=== PATIENT | male | born 1940 | race Caucasian/White ===

== ENCOUNTER 2017-12-02 09:17 | Outpatient (RCR) | payer SELFPAY | END 2017-12-14 13:03 | disposition other institution (70) | LOC: CR 09:17 | PROVIDERS: PCP Family Medicine; Visit Provider Family Medicine | DX: Z51.89 Encounter for other specified aftercare (principal) ==

== ENCOUNTER 2018-01-01 11:28 | Outpatient (RCR) | payer SELFPAY | END 2018-01-01 23:59 | disposition home or self-care (01) | LOC: CR 11:28 | PROVIDERS: PCP Family Medicine; Visit Provider Family Medicine | DX: Z51.89 Encounter for other specified aftercare (principal) | CPT/HCPCS: S9472 ==

== ENCOUNTER 2018-01-29 13:16 | Outpatient (RCR) | payer SELFPAY | END 2018-01-31 23:59 | disposition home or self-care (01) | LOC: CR 13:16 | PROVIDERS: PCP Family Medicine; Visit Provider Family Medicine | DX: Z51.89 Encounter for other specified aftercare (principal) | CPT/HCPCS: S9472 ==

== ENCOUNTER 2018-03-03 07:00 | Outpatient (RCR) | payer SELFPAY | END 2018-03-03 23:59 | disposition home or self-care (01) | LOC: CR 07:00 | PROVIDERS: PCP Family Medicine; Visit Provider Family Medicine | DX: Z51.89 Encounter for other specified aftercare (principal) | CPT/HCPCS: S9472 ==

== ENCOUNTER 2018-04-02 13:23 | Outpatient (RCR) | payer SELFPAY | END 2018-04-02 23:59 | disposition home or self-care (01) | LOC: CR 13:23 | PROVIDERS: PCP Family Medicine; Visit Provider Family Medicine | DX: Z51.89 Encounter for other specified aftercare (principal) | CPT/HCPCS: S9472 ==

== ENCOUNTER 2018-04-16 07:00 | Outpatient (RCR) | payer SELFPAY | END 2018-05-03 23:59 | LOC: CR 07:00 | PROVIDERS: PCP Family Medicine; Visit Provider Family Medicine | DX: Z51.89 Encounter for other specified aftercare (principal) | CPT/HCPCS: S9472 ==

== ENCOUNTER → 2018-09-07 10:55 | Outpatient (BNVA) | payer MEDICARE, SELFPAY | PROVIDERS: PCP Family Medicine; Visit Provider Nurse Practitioner Family | DX: R69 Illness, unspecified (principal) ==

== ENCOUNTER 2018-09-07 11:58 | Outpatient (CLI) | payer MEDICARE, SELFPAY ==
[2018-09-07 12:16] LABS: HCT 42.2 % (40.0-50.0); HGB 14.4 g/dL (13.5-17.5); Mean Corp. HGB Concentration 34.1 g/dL (32.0-36.0); Mean Corpuscular Hemoglobin 32.7 pg (27.0-33.0); Mean Corpuscular Volume 95.7 fL (80-95); Mean Platelet Volume 10.3 fL (8.0-11.0); Platelet Count 159 x1000/uL (130-400); RBC 4.41 m/cumm (4.50-6.00); RBC Distribution Width 13.4 % (11.8-14.1)
[2018-09-07 13:06] LABS: Anion Gap 7.1 mmol/L (3-11); BUN 17 mg/dL (7-18); CO2 28.9 mmol/L (21.0-32.0); CREATININE 0.86 mg/dL (0.70-1.30); Calcium 8.5 mg/dL (8.5-10.1); Chloride 102 mmol/L (98-107); Glucose 100 mg/dL (70-100); Magnesium 2.2 mg/dL (1.8-2.4); NT-proBNP 499 pg/mL; Potassium 4.5 mmol/L (3.5-5.1); Sodium 138 mmol/L (136-145); TSH 0.98 uIU/mL (0.358-3.74)
== END 2018-09-07 12:18 ==
PROVIDERS: PCP Family Medicine; Visit Provider Nurse Practitioner Family
DX: I25.5 Ischemic cardiomyopathy (principal); R06.02 Shortness of breath; I48.91 Unspecified atrial fibrillation; I10 Essential (primary) hypertension; I25.10 Atherosclerotic heart disease of native coronary artery without angina pectoris; Z45.02 Encounter for adjustment and management of automatic implantable cardiac defibrillator; I47.2 Ventricular tachycardia; Z79.01 Long term (current) use of anticoagulants; I48.0 Paroxysmal atrial fibrillation
CPT/HCPCS: 36415; 80048; 85027; 93289; 99215; 83735; 83880; 84443

== ENCOUNTER 2018-09-23 00:37 | Outpatient (CLI) | payer MEDICARE, SELFPAY ==
--- NOTE | 2018-09-23 07:31 | MERGE_ITS ---
*[facility]* *[facility]* [address] [place] [address] Date of study: 09/23/2018 Transthoracic Echocardiography M-mode, complete 2D, complete spectral Doppler, and color Doppler *STUDY CONCLUSIONS* Summary: 1. Left ventricle: The cavity size was dilated. Wall thickness was increased in a pattern of mild LVH. Systolic function was moderately reduced. The estimated ejection fraction was 35-40%. Diffuse hypokinesis. Severe hypokinesis of the inferolateral and inferior myocardium. 2. Right ventricle: The cavity size was normal. Device wire noted in right ventricle. Systolic function was normal. 3. Left atrium: The atrium was mildly to moderately dilated. 4. Mitral valve: Mildly calcified annulus. Mildly thickened leaflets. There was mild to moderate regurgitation. 5. Inferior vena cava: The vessel was patent and normal in size. The respirophasic diameter changes were in the normal range (greater than or equal to 50%), consistent with normal central venous pressure. *PATIENT PRESENTATION* Height: 170.2cm ((67in) ) S/D Pressure: 117 / 66 Weight: 104.3kg ((229.5lb) ) BSA: 2.26m^2 Test start time: 07:40 AM. Test stop time: 08:45 AM. ORDERING Giselle Hill REFERRING Giselle Hill PERFORMING Unknown CONSULTING Donny Cooper PERFORMING [facility] DIRECTOR OF RESPIRATORY THERAPY RT Phan (R)(SHAYNE)PAULINE *PROCEDURE DATA* Procedure information: The patient was identified by two identifiers. This study was interpreted by [facility]. Pertinent images and digital data are archived for permanent storage and are available for subsequent review. Comparison was made to the study of 12/17/2015. Study status: Routine. Transthoracic echocardiography. M-mode, complete 2D, complete spectral Doppler, and color Doppler. A Transthoracic Echocardiogram was performed. Scanning was performed from the parasternal, apical, subcostal, and suprasternal notch acoustic windows. Images were obtained using an [id number] cardiac ultrasound machine. Image quality was adequate. Study completion: The patient tolerated the procedure well. There were no complications. History: PMH: CM HTN afib. i25, i10, i48.91. *CARDIAC ANATOMY* Left ventricle: The cavity size was dilated. Wall thickness was increased in a pattern of mild LVH. Systolic function was moderately reduced. The estimated ejection fraction was 35-40%. Diffuse hypokinesis. Regional wall motion abnormalities: Severe hypokinesis of the inferolateral and inferior myocardium. Aortic valve: Trileaflet; mildly thickened, mildly calcified leaflets. Mobility was not restricted. Doppler: Transvalvular velocity was within the normal range. There was no stenosis. There was no significant regurgitation. VTI ratio of LVOT to aortic valve: 0.7. Valve area (VTI): 2.3cm^2. Indexed valve area (VTI): 1cm^2/m^2. Peak velocity ratio of LVOT to aortic valve: 0.66. Valve area (Vmax): 2.2cm^2. Indexed valve area (Vmax): 1cm^2/m^2. Mean velocity ratio of LVOT to aortic valve: 0.56. Valve area (Vmean): 1.8cm^2. Indexed valve area (Vmean): 0.8cm^2/m^2. Mean gradient (S): 4.3mm Hg. Peak gradient (S): 7.4mm Hg. Aorta: Aortic root: The aortic root was normal in size. Ascending aorta: The ascending aorta was normal in size. Mitral valve: Mildly calcified annulus. Mildly thickened leaflets. Mobility was not restricted. Doppler: Transvalvular velocity was within the normal range. There was no evidence for stenosis. There was mild to moderate regurgitation. Valve area by pressure half-time: 3.1cm^2. Indexed valve area by pressure half-time: 1.4cm^2/m^2. Left atrium: The atrium was mildly to moderately dilated. Right ventricle: The cavity size was normal. Device wire noted in right ventricle. Systolic function was normal. Pulmonic valve: The pulmonary valve appears to be grossly normal. Doppler: Transvalvular velocity was within the normal range. There was no evidence for stenosis. There was trivial regurgitation. Tricuspid valve: Structurally normal valve. Doppler: Transvalvular velocity was within the normal range. There was no evidence for stenosis. There was mild regurgitation. Pulmonary artery: Poorly visualized. Pulmonary systolic pressure was in the range of 35mm Hg to 40mm Hg. Right atrium: The atrium was dilated. Pericardium: There was no significant pericardial effusion. Systemic veins: Inferior vena cava: Well visualized. The vessel was patent and normal in size. The respirophasic diameter changes were in the normal range (greater than or equal to 50%), consistent with normal central venous pressure. Baseline ECG: Paced rhythm. Measurements Left ventricle Value Reference LV ID, ED, PLAX (H) 7.2 cm 3.5 - 6.0 LV ID, ES, PLAX (H) 5.6 cm 2.1 - 4.0 LV PW thickness, ED, PLAX 0.9 cm LV end-diastolic volume, 1-p A2C 180 ml LV ejection fraction, 1-p A2C 37 % LV end-diastolic volume, 1-p A4C 158 ml LV ejection fraction, 1-p A4C 34 % LV e', lateral 0.049 m/sec LV E/e', lateral 13 LV e', medial 0.048 m/sec LV E/e', medial 13 LV e', average 0.048 m/sec LV E/e', average 13 Ventricular septum Value Reference IVS thickness, ED, PLAX 1.1 cm LVOT Value Reference LVOT ID, A-P 2.0 cm LVOT area 3.3 cm^2 LVOT peak velocity, S 0.9 m/sec LVOT mean velocity, S 0.56 m/sec LVOT VTI, S 18.8 cm LVOT peak gradient, S 3.2 mm Hg LVOT mean gradient, S 1.5 mm Hg Stroke volume (SV), LVOT DP 62 ml Stroke index (SV/bsa), LVOT DP 27 ml/m^2 Aortic valve Value Reference Aortic valve peak velocity, S 1.4 m/sec Aortic valve mean velocity, S 1 m/sec Aortic valve VTI, S 27.0 cm Aortic mean gradient, S 4.3 mm Hg Aortic peak gradient, S 7.4 mm Hg VTI ratio, LVOT/AV 0.7 Aortic valve area, VTI 2.3 cm^2 Velocity ratio, peak, LVOT/AV 0.66 Aortic valve area, peak velocity 2.2 cm^2 Velocity ratio, mean, LVOT/AV 0.56 Aortic valve area, mean velocity 1.8 cm^2 Aortic valve area/bsa, mean velocity 0.8 cm^2/m^2 Aorta Value Reference Aortic root ID, ED 3.2 cm Ascending aorta ID, A-P, S 3.4 cm Left atrium Value Reference LA ID, A-P, ES 4.5 cm LA ID/bsa, A-P 2.0 cm/m^2 <=2.2 LA area, ES, A4C (H) 27.1 cm^2 8.8 - 23.4 LA area, ES, A2C 21 cm^2 LA volume/bsa, ES, 1-p A4C 49 ml/m^2 LA volume, ES, 2-p 78 ml LA volume/bsa, ES, 2-p 35 ml/m^2 LA/aortic root ratio 1.42 Mitral valve Value Reference Mitral E-wave peak velocity 0.62 m/sec Mitral A-wave peak velocity 0.97 m/sec Mitral deceleration time (H) 243 ms 150 - 230 Mitral pressure half-time 70 ms Mitral E/A ratio, peak 0.64 Mitral valve area, PHT, DP 3.1 cm^2 Tricuspid valve Value Reference Tricuspid regurg peak velocity 2.8 m/sec Tricuspid peak RV-RA gradient 32.2 mm Hg Right atrium Value Reference RA area, ES, A4C (H) 21.7 cm^2 8.3 - 19.5 Pulmonic valve Value Reference Pulmonic regurg velocity, ED 1.43 m/sec Pulmonic regurg gradient, ED 8 mm Hg Legend: (L) and (H) skip values outside specified reference range. I have personally reviewed the images and have reviewed and edited the reported findings. Electronically signed by Violet Walls 09/23/2018 10:49
== END 2018-09-23 00:57 ==
PROVIDERS: PCP Family Medicine; Visit Provider Nurse Practitioner Family
DX: I10 Essential (primary) hypertension (principal); I25.5 Ischemic cardiomyopathy; I48.91 Unspecified atrial fibrillation; I25.10 Atherosclerotic heart disease of native coronary artery without angina pectoris; I34.0 Nonrheumatic mitral (valve) insufficiency; Z95.810 Presence of automatic (implantable) cardiac defibrillator
CPT/HCPCS: 93306

== ENCOUNTER 2018-10-01 11:56 | Outpatient (RCR) | payer SELFPAY | END 2018-10-01 23:59 | disposition home or self-care (01) | LOC: CR 11:56 | PROVIDERS: PCP Family Medicine; Visit Provider Family Medicine | DX: Z51.89 Encounter for other specified aftercare (principal) | CPT/HCPCS: S9472 ==

== ENCOUNTER → 2018-10-05 08:56 | Outpatient (BNVA) | payer MEDICARE, SELFPAY | PROVIDERS: PCP Family Medicine; Visit Provider Nurse Practitioner Family | DX: I25.5 Ischemic cardiomyopathy (principal); I25.10 Atherosclerotic heart disease of native coronary artery without angina pectoris; Z95.810 Presence of automatic (implantable) cardiac defibrillator; I47.2 Ventricular tachycardia; I10 Essential (primary) hypertension; I48.0 Paroxysmal atrial fibrillation; Z79.01 Long term (current) use of anticoagulants | CPT/HCPCS: 93289; 99214 ==

== ENCOUNTER 2018-10-29 11:28 | Outpatient (RCR) | payer SELFPAY | END 2018-10-31 23:59 | disposition home or self-care (01) | LOC: CR 11:28 | PROVIDERS: PCP Family Medicine; Visit Provider Family Medicine | DX: Z51.89 Encounter for other specified aftercare (principal) | CPT/HCPCS: S9472 ==

== ENCOUNTER 2018-12-01 13:37 | Outpatient (RCR) | payer SELFPAY | END 2018-12-01 23:59 | disposition home or self-care (01) | LOC: CR 13:37 | PROVIDERS: PCP Family Medicine; Visit Provider Family Medicine | DX: Z51.89 Encounter for other specified aftercare (principal) | CPT/HCPCS: S9472 ==

== ENCOUNTER 2018-12-02 12:36 | Outpatient (RCR) | payer SELFPAY | END 2019-01-01 23:59 | disposition other institution (70) | LOC: CR 12:36 | PROVIDERS: PCP Family Medicine; Visit Provider Family Medicine | DX: Z51.89 Encounter for other specified aftercare (principal) | CPT/HCPCS: S9472 ==

== ENCOUNTER → 2018-12-07 11:53 | Outpatient (BNVA) | payer MEDICARE, SELFPAY | PROVIDERS: PCP Family Medicine; Visit Provider Nurse Practitioner Family | DX: I25.5 Ischemic cardiomyopathy (principal); I25.10 Atherosclerotic heart disease of native coronary artery without angina pectoris; I47.2 Ventricular tachycardia; Z45.02 Encounter for adjustment and management of automatic implantable cardiac defibrillator; I10 Essential (primary) hypertension; I48.0 Paroxysmal atrial fibrillation; Z79.01 Long term (current) use of anticoagulants | CPT/HCPCS: 93284; 99213 ==

== ENCOUNTER 2018-12-31 07:00 | Outpatient (RCR) | payer SELFPAY | END 2019-01-01 23:59 | disposition home or self-care (01) | LOC: CR 07:00 | PROVIDERS: PCP Family Medicine; Visit Provider Family Medicine | DX: Z51.89 Encounter for other specified aftercare (principal) ==

== ENCOUNTER 2019-01-28 07:00 | Outpatient (RCR) | payer SELFPAY | END 2019-01-31 23:59 | disposition home or self-care (01) | LOC: CR 07:00 | PROVIDERS: PCP Family Medicine; Visit Provider Family Medicine | DX: Z51.89 Encounter for other specified aftercare (principal) | CPT/HCPCS: S9472 ==

== ENCOUNTER 2019-03-02 11:35 | Outpatient (RCR) | payer SELFPAY | END 2019-03-03 23:59 | disposition home or self-care (01) | LOC: CR 11:35 | PROVIDERS: PCP Family Medicine; Visit Provider Family Medicine | DX: Z51.89 Encounter for other specified aftercare (principal) | CPT/HCPCS: S9472 ==

== ENCOUNTER 2019-03-30 11:45 | Outpatient (RCR) | payer SELFPAY | END 2019-04-02 23:59 | disposition home or self-care (01) | LOC: CR 11:45 | PROVIDERS: PCP Family Medicine; Visit Provider Family Medicine | DX: Z51.89 Encounter for other specified aftercare (principal) | CPT/HCPCS: S9472 ==

== ENCOUNTER → 2019-04-20 13:21 | Outpatient (BNVA) | payer MEDICARE, SELFPAY | PROVIDERS: PCP Family Medicine; Referring Provider Family Medicine; Visit Provider Internal Medicine Cardiovascular Disease | DX: R69 Illness, unspecified (principal) ==

== ENCOUNTER 2019-04-20 14:08 | Outpatient (CLI) | payer MEDICARE, SELFPAY | END 2019-04-20 14:28 | PROVIDERS: PCP Family Medicine; Visit Provider Internal Medicine Cardiovascular Disease | DX: I49.9 Cardiac arrhythmia, unspecified (principal); I49.3 Ventricular premature depolarization; Z45.02 Encounter for adjustment and management of automatic implantable cardiac defibrillator | CPT/HCPCS: 93284; 93005; 93010; 93225; 99213 ==

== ENCOUNTER 2019-04-22 08:25 | Outpatient (CLI) | payer MEDICARE, SELFPAY ==
--- NOTE | 2019-04-22 09:41 | W.HOLTRPT ---
Date of service: 04/22/19 Time of Service: 09:41 Holter Monitor Report Holter Monitor Note: This is a 24-hour Holter monitor ordered for the indication of arrhythmia. ?Patient was in a paced rhythm for 89% of the beats. ?The patient had 0 episodes of supraventricular tachycardia and no premature atrial contractions. ?The patient had frequent (7%) single ventricular ectopic beats as well as couplets and triplets. ?There were no episodes of ventricular tachycardia. ?There were no episodes of atrial fibrillation, pauses greater than 3 seconds or high degree heart block.
== END 2019-04-22 08:45 ==
PROVIDERS: PCP Family Medicine; Visit Provider Family Medicine
DX: I49.9 Cardiac arrhythmia, unspecified (principal); I49.3 Ventricular premature depolarization; Z95.810 Presence of automatic (implantable) cardiac defibrillator
CPT/HCPCS: 93227; 93226

== ENCOUNTER → 2019-04-25 09:39 | Outpatient (BNVA) | payer MEDICARE, SELFPAY | PROVIDERS: PCP Family Medicine; Referring Provider Family Medicine; Visit Provider Internal Medicine Cardiovascular Disease | DX: I25.5 Ischemic cardiomyopathy (principal); I25.10 Atherosclerotic heart disease of native coronary artery without angina pectoris; Z95.810 Presence of automatic (implantable) cardiac defibrillator | CPT/HCPCS: 99213 ==

== ENCOUNTER 2019-05-02 14:42 | Outpatient (RCR) | payer SELFPAY | END 2019-05-03 23:59 | disposition home or self-care (01) | LOC: CR 14:42 | PROVIDERS: PCP Family Medicine; Visit Provider Family Medicine | DX: Z51.89 Encounter for other specified aftercare (principal) | CPT/HCPCS: S9472 ==

== ENCOUNTER 2019-05-27 13:37 | Outpatient (RCR) | payer SELFPAY | END 2019-06-03 23:59 | disposition home or self-care (01) | LOC: CR 13:37 | PROVIDERS: PCP Family Medicine; Visit Provider Family Medicine | DX: Z51.89 Encounter for other specified aftercare (principal) | CPT/HCPCS: S9472 ==

== ENCOUNTER 2019-07-01 13:32 | Outpatient (RCR) | payer SELFPAY | END 2019-07-02 23:59 | disposition home or self-care (01) | LOC: CR 13:32 | PROVIDERS: PCP Family Medicine; Visit Provider Family Medicine | DX: Z51.89 Encounter for other specified aftercare (principal) | CPT/HCPCS: S9472 ==

== ENCOUNTER 2019-07-11 07:00 | Outpatient (RCR) | payer SELFPAY | END 2019-08-02 23:59 | disposition home or self-care (01) | LOC: CR 07:00 | PROVIDERS: PCP Family Medicine; Visit Provider Family Medicine | DX: Z51.89 Encounter for other specified aftercare (principal) | CPT/HCPCS: S9472 ==

== ENCOUNTER → 2019-10-04 08:46 | Outpatient (BNVA) | payer MEDICARE, SELFPAY | PROVIDERS: PCP Family Medicine; Referring Provider Family Medicine; Visit Provider Internal Medicine Cardiovascular Disease | DX: I25.10 Atherosclerotic heart disease of native coronary artery without angina pectoris (principal); Z95.810 Presence of automatic (implantable) cardiac defibrillator; I25.5 Ischemic cardiomyopathy | CPT/HCPCS: 99214 ==

== ENCOUNTER 2019-10-05 02:30 | Outpatient (CLI) | payer MEDICARE, SELFPAY ==
[2019-10-05 09:39] LABS: COMMENT (LAB VIEW ONLY) 85.05 mg/dL; Microalb ug/mg Crea 10.7 ug/mg Cr
[2019-10-05 09:40] LABS: CREATININE 0.99 mg/dL (0.70-1.30); Calculated LDL 96 mg/dL (<100); Cholesterol 149 mg/dL (<200); HDL Cholesterol 37 mg/dL (40-60); Potassium 4.9 mmol/L (3.5-5.1); Triglyceride 84 mg/dL (<150)
== END 2019-10-05 02:50 ==
PROVIDERS: PCP Family Medicine; Visit Provider Family Medicine
DX: E78.5 Hyperlipidemia, unspecified (principal); I25.10 Atherosclerotic heart disease of native coronary artery without angina pectoris; E11.9 Type 2 diabetes mellitus without complications; I49.3 Ventricular premature depolarization; Z45.02 Encounter for adjustment and management of automatic implantable cardiac defibrillator
CPT/HCPCS: 36415; 80061; 93284; 99212; 82043; 82565; 82570; 84132

== ENCOUNTER 2019-10-07 01:25 | Outpatient (CLI) | payer MEDICARE, SELFPAY ==
--- NOTE | 2019-10-07 06:15 | DI.US_ITS ---
EXAM: US AAA SCREENING CLINICAL HISTORY: screening for AAA,H/O TOBACCO USE, Z87.891 TECHNIQUE: Ultrasound performed using standard protocol. COMPARISON: US Cardiac from 09/23/2018 FINDINGS: Limited ultrasound was performed to evaluate possibility of abdominal aortic aneurysm. No aneurysm i dentified involving abdominal aorta, maximal diameter is about 21 millimeters. No common iliac artery aneurysm, maximal diameter of right and left common iliac artery is about 12 a nd 11 millimeters respectively.. IMPRESSION: No abdominal aortic aneurysm. DATA REPOSITORY:
== END 2019-10-07 01:45 ==
PROVIDERS: PCP Family Medicine; Visit Provider Family Medicine
DX: Z13.6 Encounter for screening for cardiovascular disorders (principal); Z87.891 Personal history of nicotine dependence
CPT/HCPCS: 76706

== ENCOUNTER → 2020-03-07 08:20 | Outpatient (BNVA) | payer MEDICARE, SELFPAY | PROVIDERS: PCP Family Medicine; Referring Provider Family Medicine; Visit Provider Internal Medicine Cardiovascular Disease | DX: I49.3 Ventricular premature depolarization (principal); Z45.02 Encounter for adjustment and management of automatic implantable cardiac defibrillator | CPT/HCPCS: 93284; 99212 ==

== ENCOUNTER → 2020-03-12 09:43 | Outpatient (BNVA) | payer MEDICARE, SELFPAY | PROVIDERS: PCP Family Medicine; Referring Provider Family Medicine; Visit Provider Internal Medicine Cardiovascular Disease | DX: I25.10 Atherosclerotic heart disease of native coronary artery without angina pectoris (principal); I25.5 Ischemic cardiomyopathy; Z95.810 Presence of automatic (implantable) cardiac defibrillator | CPT/HCPCS: 99213 ==

== ENCOUNTER → 2020-06-20 10:26 | Outpatient (BNVA) | payer MEDICARE, SELFPAY | PROVIDERS: PCP Family Medicine; Referring Provider Family Medicine; Visit Provider Physician Assistant | DX: I25.5 Ischemic cardiomyopathy (principal); I44.2 Atrioventricular block, complete; Z45.018 Encounter for adjustment and management of other part of cardiac pacemaker ==

== ENCOUNTER 2020-06-20 11:18 | Outpatient (RCR) | payer MEDICARE, SELFPAY ==
--- NOTE | 2020-06-20 11:15 | HOLTER_ITS ---
APPROVED REPORT Exam Type: HOLTER MONITOR APPLICATION Reason for Test: ISCHEMIC CARDIOMYOPATHY Patient Location: O Conclusion This is a 48-hour monitor ordered for indication of possible pacemaker malfunction. The patient was ventricularly paced for the majority of the recording with a mean heart rate of 75 bp m and a range of 60 bpm - 111 bpm. There were no episodes of supraventricular tachycardia and rare PACs. There was one episode of nonsustained ventricular tachycardia and 2 episodes of AIVR each lasting 4 b eats. There were frequent PVCs (10%). There were no patient triggered events.
== END 2020-07-01 23:59 | disposition home or self-care (01) ==
LOC: RT 11:18
PROVIDERS: PCP Family Medicine; Visit Provider Physician Assistant
DX: I25.5 Ischemic cardiomyopathy (principal); Z45.018 Encounter for adjustment and management of other part of cardiac pacemaker; I49.1 Atrial premature depolarization; I47.2 Ventricular tachycardia; I49.3 Ventricular premature depolarization
CPT/HCPCS: 93227; 93284; 93225; 93226

== ENCOUNTER → 2020-09-04 11:17 | Outpatient (BNVA) | payer MEDICARE, SELFPAY | PROVIDERS: PCP Family Medicine; Referring Provider Family Medicine; Visit Provider Internal Medicine Cardiovascular Disease | DX: I25.5 Ischemic cardiomyopathy (principal); I25.10 Atherosclerotic heart disease of native coronary artery without angina pectoris; Z95.810 Presence of automatic (implantable) cardiac defibrillator; Z79.899 Other long term (current) drug therapy | CPT/HCPCS: 99213 ==

== ENCOUNTER → 2020-09-19 11:28 | Outpatient (BNVA) | payer MEDICARE, SELFPAY | PROVIDERS: PCP Family Medicine; Referring Provider Family Medicine; Visit Provider Physician Assistant | DX: I25.5 Ischemic cardiomyopathy (principal); Z45.018 Encounter for adjustment and management of other part of cardiac pacemaker; I44.2 Atrioventricular block, complete; Z79.899 Other long term (current) drug therapy | CPT/HCPCS: 93284; 99212 ==

== ENCOUNTER 2020-10-08 04:49 | Outpatient (CLI) | payer MEDICARE, SELFPAY ==
[2020-10-08 09:05] LABS: Calculated LDL 98 mg/dL (<100); Cholesterol 153 mg/dL (<200); HDL Cholesterol 36 mg/dL (40-60); Potassium 4.4 mmol/L (3.5-5.1); Triglyceride 95 mg/dL (<150)
== END 2020-10-08 04:50 | disposition home or self-care (01) ==
LOC: LBO 04:50
PROVIDERS: PCP Family Medicine; Visit Provider Family Medicine
DX: I10 Essential (primary) hypertension (principal); E78.5 Hyperlipidemia, unspecified
CPT/HCPCS: 36415; 80061; 82565; 84132

== ENCOUNTER 2020-10-25 08:00 | Outpatient (RCR) | payer SELFPAY ==
[2020-10-02 15:48] VITALS: BP 134/88; PULSE 76
[2020-10-04 08:06] VITALS: BP 128/62; PULSE 55
[2020-10-09 07:57] VITALS: BP 121/63; PULSE 64
[2020-10-16 08:04] VITALS: BP 125/79; PULSE 61
[2020-10-18 07:58] VITALS: BP 154/69; PULSE 50
[2020-10-23 07:57] VITALS: BP 132/75; PULSE 64
[2020-10-25 08:05] VITALS: BP 111/58; PULSE 77
== END 2020-10-31 23:59 | disposition home or self-care (01) ==
LOC: CR 08:00
PROVIDERS: PCP Family Medicine; Visit Provider Family Medicine
DX: Z51.89 Encounter for other specified aftercare (principal)

== ENCOUNTER 2020-11-27 08:00 | Outpatient (RCR) | payer SELFPAY ==
[2020-11-01 00:11] VITALS: BP 111/58; PULSE 77
[2020-11-01 08:04] VITALS: BP 114/72; PULSE 61
[2020-11-06 07:55] VITALS: BP 135/65; PULSE 77; O2SAT 95
[2020-11-08 08:01] VITALS: BP 131/94
[2020-11-13 08:07] VITALS: BP 154/69; PULSE 65
[2020-11-15 08:13] VITALS: BP 119/58; PULSE 62
[2020-11-20 08:06] VITALS: BP 110/63; PULSE 65
[2020-11-22 08:09] VITALS: BP 120/62; PULSE 76
[2020-11-27 08:00] VITALS: BP 127/75; PULSE 65
== END 2020-12-01 23:59 | disposition home or self-care (01) ==
LOC: CR 08:00
PROVIDERS: PCP Family Medicine; Visit Provider Family Medicine
DX: Z51.89 Encounter for other specified aftercare (principal)

== ENCOUNTER 2021-01-01 08:00 | Outpatient (RCR) | payer SELFPAY ==
[2020-12-02 00:07] VITALS: BP 127/75; PULSE 65
[2020-12-04 08:26] VITALS: BP 113/69; PULSE 65
[2020-12-06 08:11] VITALS: BP 118/53; PULSE 70
[2020-12-11 08:37] VITALS: BP 128/68; PULSE 65
[2020-12-18 08:00] VITALS: BP 124/71; PULSE 71
[2020-12-20 08:15] VITALS: BP 126/80; PULSE 65
[2020-12-25 08:04] VITALS: BP 116/77; PULSE 69
[2020-12-27 08:07] VITALS: BP 125/64; PULSE 68
[2021-01-01 08:00] VITALS: BP 130/77; PULSE 64
== END 2021-01-01 23:59 | disposition home or self-care (01) ==
LOC: CR 08:00
PROVIDERS: PCP Family Medicine; Visit Provider Family Medicine
DX: Z51.89 Encounter for other specified aftercare (principal)

== ENCOUNTER 2021-01-31 08:00 | Outpatient (RCR) | payer SELFPAY ==
[2021-01-02 00:05] VITALS: BP 130/77; PULSE 64
[2021-01-03 08:39] VITALS: BP 121/74; PULSE 65
[2021-01-10 08:03] VITALS: BP 125/75; PULSE 69
[2021-01-15 08:30] VITALS: BP 115/74; PULSE 62
[2021-01-17 08:08] VITALS: BP 124/64; PULSE 67
[2021-01-22 07:57] VITALS: BP 124/60; PULSE 63
[2021-01-24 09:43] VITALS: BP 129/61; PULSE 69
[2021-01-29 08:02] VITALS: BP 117/67; PULSE 65
[2021-01-31 08:20] VITALS: BP 121/75; PULSE 73
[2021-02-05 08:52] VITALS: BP 126/57; PULSE 64
== END 2021-01-31 23:59 | disposition home or self-care (01) ==
LOC: CR 08:00
PROVIDERS: PCP Family Medicine; Visit Provider Family Medicine
DX: Z51.89 Encounter for other specified aftercare (principal)

== ENCOUNTER 2021-02-26 08:00 | Outpatient (RCR) | payer SELFPAY ==
[2021-02-01 00:19] VITALS: BP 121/75; PULSE 73
[2021-02-07 08:37] VITALS: BP 129/79; PULSE 66
[2021-02-12 08:18] VITALS: BP 125/66; PULSE 64
[2021-02-14 09:18] VITALS: BP 112/65; PULSE 70
[2021-02-19 07:56] VITALS: BP 134/75; PULSE 70
[2021-02-21 07:59] VITALS: BP 133/77; PULSE 67
[2021-02-26 07:59] VITALS: BP 134/77; PULSE 73
== END 2021-03-03 23:59 | disposition home or self-care (01) ==
LOC: CR 08:00
PROVIDERS: PCP Family Medicine; Visit Provider Family Medicine
DX: Z51.89 Encounter for other specified aftercare (principal); R69 Illness, unspecified

== ENCOUNTER → 2021-03-04 12:51 | Outpatient (BNVA) | payer MEDICARE, SELFPAY | PROVIDERS: PCP Family Medicine; Referring Provider Family Medicine; Visit Provider Internal Medicine Cardiovascular Disease | DX: I25.10 Atherosclerotic heart disease of native coronary artery without angina pectoris (principal); Z95.810 Presence of automatic (implantable) cardiac defibrillator; I25.5 Ischemic cardiomyopathy | CPT/HCPCS: 99214; 99213 ==

== ENCOUNTER → 2021-03-20 10:29 | Outpatient (BNVA) | payer MEDICARE, SELFPAY | PROVIDERS: PCP Family Medicine; Visit Provider Physician Assistant | DX: I25.5 Ischemic cardiomyopathy (principal); Z45.02 Encounter for adjustment and management of automatic implantable cardiac defibrillator | CPT/HCPCS: 93284; 99211 ==

== ENCOUNTER 2021-03-26 08:00 | Outpatient (RCR) | payer SELFPAY ==
[2021-03-04 00:09] VITALS: BP 134/77; PULSE 73
[2021-03-05 08:26] VITALS: BP 148/79; PULSE 77
[2021-03-07 07:58] VITALS: BP 146/79; PULSE 65
[2021-03-12 08:10] VITALS: BP 130/75; PULSE 71
[2021-03-14 08:11] VITALS: BP 146/76; PULSE 67
[2021-03-21 08:01] VITALS: BP 121/74; PULSE 87
[2021-03-26 08:02] VITALS: BP 135/74; PULSE 66
== END 2021-04-02 23:59 | disposition home or self-care (01) ==
LOC: CR 08:00
PROVIDERS: PCP Family Medicine; Visit Provider Family Medicine
DX: Z51.89 Encounter for other specified aftercare (principal); R69 Illness, unspecified

== ENCOUNTER 2021-05-02 08:00 | Outpatient (RCR) | payer SELFPAY ==
[2021-04-03 00:16] VITALS: BP 135/74; PULSE 66
[2021-04-04 08:31] VITALS: BP 135/72; PULSE 71
[2021-04-09 10:20] VITALS: BP 145/75; PULSE 67
[2021-04-11 08:18] VITALS: BP 113/68; PULSE 64
[2021-04-16 08:43] VITALS: BP 121/72; PULSE 81
[2021-04-18 08:13] VITALS: BP 149/75; PULSE 68
[2021-04-23 07:59] VITALS: BP 131/75; PULSE 71
[2021-04-25 08:58] VITALS: BP 130/63; PULSE 60
[2021-04-30 08:05] VITALS: BP 116/70; PULSE 64
[2021-05-02 08:52] VITALS: BP 121/73; PULSE 67
== END 2021-05-03 23:59 | disposition home or self-care (01) ==
LOC: CR 08:00
PROVIDERS: PCP Family Medicine; Visit Provider Family Medicine
DX: Z51.89 Encounter for other specified aftercare (principal); R69 Illness, unspecified

== ENCOUNTER 2021-05-06 15:04 | Outpatient (RCR) | payer SELFPAY ==
[2021-05-04 00:06] VITALS: BP 121/73; PULSE 67
== END 2021-06-03 23:59 | disposition home or self-care (01) ==
LOC: CR 15:04
PROVIDERS: PCP Family Medicine; Visit Provider Family Medicine
DX: R69 Illness, unspecified (principal)

== ENCOUNTER → 2021-08-28 02:59 | Outpatient (CLI) | payer MEDICARE, SELFPAY ==
--- NOTE | 2021-08-28 10:30 | DI.US_ITS ---
APPROVED REPORT EXAM: Comprehensive 2D, Doppler, and color-flow Echocardiogram Patient Location: Out-Patient Plastics Scientist: Alexandrea Angelo RDCS (AE) Indications: Ischemic cardiomyopathy, Atherosclerosis Other Information Study Quality: Fair. Technically limited study due to body habitus. Conclusion Mild concentric left ventricular hypertrophy. The left ventricle is mildly dilated. Estimated eject ion fraction is 35 to 40%. There are segmental wall motion abnormalities Right ventricle appears grossly normal in size and systolic function Both atria are normal in size The aortic valve is mildly sclerotic, trileaflet, without stenosis or regurgitation Mitral annular calcification. Mild mitral regurgitation Normal tricuspid valve with trace regurgitation. Estimated right ventricular systolic pressure is 27 mmHg Wall motion Left Ventricle Left ventricle is mildly dilated. Left ventricular systolic function is moderately decreased. Mild co ncentric left ventricular hypertrophy Regional wall motion abnormalities are noted. There is no ventr icular septal defect visualized. LVEF is 35-40%. Right Ventricle The right ventricle is normal size. Right ventricular systolic function is grossly normal. The RVSP i s 27.4mmHg. Atria The left atrium size is normal. The right atrium size is normal. The interatrial septum is intact wit h no evidence for an atrial septal defect. Aortic Valve Aortic valve is mildly sclerotic Aortic valve is trileaflet. There is no aortic valvular stenosis. No aortic regurgitation is present. Mitral Valve Mild to moderate mitral annular calcification. No evidence of mitral valve stenosis. Mild mitral regu rgitation. Tricuspid Valve The tricuspid valve is normal in structure. There is no tricuspid valve stenosis. Trace tricuspid reg urgitation. Pulmonic Valve The pulmonary valve is normal in structure. There is no pulmonic valvular stenosis. Trace pulmonic re gurgitation. Great Vessels The aortic root is normal in size. The ascending aorta is normal in size. IVC is normal in size and c ollapses >50% with inspiration. Pericardium There is no pericardial effusion. 2D Dimensions IVSD d PLAX 1.19 cm M: 0.6-1.2 LV Vol A2C d MOD 109.9 mL LVPW d PLAX 1.18 cm M: 0.6 - 1.2 LV Vol A4C d MOD 171.8 mL LVID d PLAX 6.36 cm M: 4.2 - 5.8 LA vol/ BSA A2C s A-L 24.7 mL/m2 LVDs 5.40 cm M: 2.5 - 4.0 LA vol/ BSA A4C s A-L 29.2 mL/m2 Ao Root d 3.24 cm M: 3.1 - 3.7 LA Vol/ BSA Biplane s A-L 29.4 mL/m2 RA Area A4C 17.81 cm2 LA Area A4C s MOD 20.98 cm2 RA Vol/ BSA A4C s A-L 23.2 mL/m2 LA Area A2C s MOD 17.58 cm2 Ao Asc Diam d 3.41 cm M: 2.6 - 3.4 LV EF A4C MOD 35.8 % LV EF Teichholz 30.5 % LV EF A2C MOD 30.1 % LVEF (Su's) 31.86 % M: 52 - 72 LV EF Biplane MOD 31.9 % LV Volume 102.09 mL M: 62 - 150 SV 44.93 mL LV Volume Index 45.78 mL/m2 M: 34 - 74 SV Index 20.13 mL/m2 LV Vol Biplane MOD 141.0 mL FS 14.65 % M-Mode TAPSE 1.55 cm (M/F) >1.7 LV Diastology MV E' medial 0.049 (>0.07 m/s) E/A Ratio 0.5 LV E/e MED 10.10 (<14) MV E Vmax 0.49 (0.4-1.3 m/s) MV E' lateral 0.072 (>0.1 m/s) MV A Vmax 0.95 (0.4-1.3 m/s) LV E/e LAT 6.80 (<14) MV E/A Ratio 0.52 MV E/E' medial 10.10 MV E/E' lateral 6.85 Aortic Valve LVOT Area 3.50 cm2 AoV Area Vmax 2.28 cm2 LVOT Vmax 0.98 m/s AoV Area/ BSA (Vmax) 1.02 cm2/m2 LVOT Mean Adrian. 0.64 m/s ISABELLE Mean Adrian. 1.97 cm2 LVOT Peak Grad 3.8 mmHg ISABELLE Mean Adrian. Index 0.88 cm2/m2 LVOT Mean Grad 1.9 mmHg LVOT VTI 0.218 m LVOT Diam s 2.10 cm AoV Vmax 1.50 m/s Velocity Ratio 0.65 AoV Mean Adrian. 1.14 m/s AoV Peak Grad 9.0 mmHg LVOT SV 76.08 mL AoV Mean Grad 5.6 mmHg AoV VTI 0.318 m AoV Area VTI 2.39 cm2 AoV Area/ BSA (VTI) 1.07 cm/m2 Mitral Valve MV DT 427 (160-240 msec) MR Vmax 4.64 m/s MV PHT 124 msec MR VTI 1.712 m MV Area PHT 1.78 cm2 MR Peak Grad 86.3 mmHg MV VTI 0.357 m MR Mean Grad 53.7 mmHg MV VTI Annulus 0.378 m MV Area VTI 2.27 (4.0-6.0 cm2) Pulmonary Valve PV Vmax 0.92 (0.5-1.5 m/s) RVOT Peak Gr. 1.31 mmHg PV Peak Grad 3.4 mmHg RVOT Mean Gr. 0.65 mmHg PV Mean Grad 1.9 mmHg RVOT VTI 0.105 m PV VTI 0.173 m RVOT Vmax 0.57 m/s Tricuspid Valve TR Peak Grad 24.3 mmHg TR Vmax 2.47 m/s RA Pressure 3.00 mmHg RVSP (TR) 27.4 mmHg
== END ==
PROVIDERS: PCP Family Medicine; Visit Provider Internal Medicine Cardiovascular Disease
DX: I25.10 Atherosclerotic heart disease of native coronary artery without angina pectoris (principal)
CPT/HCPCS: 93306

== ENCOUNTER → 2021-09-02 13:10 | Outpatient (BNVA) | payer MEDICARE, SELFPAY | PROVIDERS: PCP Family Medicine; Visit Provider Internal Medicine Cardiovascular Disease | DX: I25.10 Atherosclerotic heart disease of native coronary artery without angina pectoris (principal); I25.5 Ischemic cardiomyopathy; Z95.810 Presence of automatic (implantable) cardiac defibrillator | CPT/HCPCS: 99214; 99213 ==

== ENCOUNTER 2021-09-12 08:00 | Outpatient (RCR) | payer SELFPAY ==
[2021-09-03 08:41] VITALS: BP 124/59; PULSE 75
[2021-09-05 08:09] VITALS: BP 131/68; PULSE 71
[2021-09-12 08:00] VITALS: BP 146/81; PULSE 72
== END 2021-10-01 23:59 | disposition home or self-care (01) ==
LOC: CR 08:00
PROVIDERS: PCP Family Medicine; Visit Provider Internal Medicine Cardiovascular Disease
DX: R69 Illness, unspecified (principal)

== ENCOUNTER → 2021-09-18 09:55 | Outpatient (BNVA) | payer MEDICARE, SELFPAY | PROVIDERS: PCP Family Medicine; Referring Provider Family Medicine; Visit Provider Physician Assistant | DX: Z95.810 Presence of automatic (implantable) cardiac defibrillator (principal); I25.5 Ischemic cardiomyopathy; I44.2 Atrioventricular block, complete | CPT/HCPCS: 93284 ==

== ENCOUNTER 2021-10-17 04:22 | Outpatient (CLI) | payer MEDICARE, SELFPAY ==
[2021-10-17 12:53] LABS: Anion Gap 7.2 mmol/L (3-11); BUN 26 mg/dL (7-18); CO2 28.8 mmol/L (21.0-32.0); Calcium 8.8 mg/dL (8.5-10.1); Calculated LDL 102 mg/dL (<100); Chloride 103 mmol/L (98-107); Cholesterol 163 mg/dL (<200); Glucose 107 mg/dL (74-106); HDL Cholesterol 36 mg/dL (40-60); Potassium 4.8 mmol/L (3.5-5.1); Sodium 139 mmol/L (136-145); Triglyceride 125 mg/dL (<150)
== END 2021-10-17 04:23 | disposition home or self-care (01) ==
LOC: LOS 04:23
PROVIDERS: PCP Family Medicine; Visit Provider Family Medicine
DX: E78.5 Hyperlipidemia, unspecified (principal); E87.1 Hypo-osmolality and hyponatremia
CPT/HCPCS: 36415; 80048; 80061

== ENCOUNTER 2021-10-31 08:00 | Outpatient (RCR) | payer SELFPAY ==
[2021-10-02 00:08] VITALS: BP 146/81; PULSE 72
[2021-10-03 08:08] VITALS: BP 128/65; PULSE 63
[2021-10-08 08:46] VITALS: BP 116/76; PULSE 68
[2021-10-10 08:14] VITALS: BP 121/54; PULSE 72
[2021-10-15 08:11] VITALS: BP 115/54; PULSE 73
[2021-10-22 08:07] VITALS: BP 120/74; PULSE 72
[2021-10-24 08:19] VITALS: BP 124/61; PULSE 68
[2021-10-29 08:06] VITALS: BP 116/55; PULSE 67
== END 2021-10-31 23:59 | disposition home or self-care (01) ==
LOC: CR 08:00
PROVIDERS: PCP Family Medicine; Visit Provider Internal Medicine Cardiovascular Disease
DX: R69 Illness, unspecified (principal)

== ENCOUNTER 2021-11-28 08:28 | Outpatient (RCR) | payer SELFPAY ==
[2021-10-31 08:15] VITALS: BP 120/89; PULSE 64
[2021-11-05 08:09] VITALS: BP 113/57; PULSE 73
[2021-11-05 08:23] VITALS: BP 113/57; PULSE 73
[2021-11-07 08:36] VITALS: BP 118/70; PULSE 67
[2021-11-12 08:40] VITALS: BP 131/60; PULSE 69
[2021-11-14 08:58] VITALS: BP 128/69; PULSE 67
[2021-11-19 08:05] VITALS: BP 125/59; PULSE 67
[2021-11-21 08:08] VITALS: BP 113/55; PULSE 61
[2021-11-26 08:09] VITALS: BP 127/66; PULSE 60
[2021-11-28 08:06] VITALS: BP 118/52; PULSE 67
== END 2021-12-01 23:59 | disposition home or self-care (01) ==
LOC: CR 08:28
PROVIDERS: PCP Family Medicine; Visit Provider Internal Medicine Cardiovascular Disease
DX: R69 Illness, unspecified (principal)

== ENCOUNTER 2021-12-31 08:00 | Outpatient (RCR) | payer SELFPAY ==
[2021-12-02 00:15] VITALS: BP 118/52; PULSE 67
[2021-12-03 08:19] VITALS: BP 123/67; PULSE 78
[2021-12-10 08:10] VITALS: BP 118/63; PULSE 63
[2021-12-12 09:27] VITALS: BP 131/70; PULSE 63
[2021-12-19 08:07] VITALS: BP 97/54; PULSE 61
[2021-12-24 08:05] VITALS: BP 107/51; PULSE 64
[2021-12-31 08:12] VITALS: BP 105/59; PULSE 64
== END 2022-01-01 23:59 | disposition home or self-care (01) ==
LOC: CR 08:00
PROVIDERS: PCP Family Medicine; Visit Provider Internal Medicine Cardiovascular Disease
DX: R69 Illness, unspecified (principal)

== ENCOUNTER 2022-01-30 08:13 | Outpatient (RCR) | payer SELFPAY ==
[2022-01-02 00:06] VITALS: BP 105/59; PULSE 64
[2022-01-14 08:06] VITALS: BP 132/71; PULSE 61
[2022-01-16 08:02] VITALS: BP 122/61; PULSE 53
[2022-01-21 08:06] VITALS: PULSE 54
[2022-01-23 07:53] VITALS: BP 116/53; PULSE 63
[2022-01-28 08:15] VITALS: BP 108/55; PULSE 63
[2022-01-30 08:05] VITALS: BP 105/64; PULSE 64
== END 2022-01-31 23:59 | disposition home or self-care (01) ==
LOC: CR 08:13
PROVIDERS: PCP Family Medicine; Visit Provider Internal Medicine Cardiovascular Disease
DX: R69 Illness, unspecified (principal)

== ENCOUNTER 2022-02-27 08:00 | Outpatient (RCR) | payer SELFPAY ==
[2022-02-01 00:05] VITALS: BP 105/64; PULSE 64
[2022-02-04 08:05] VITALS: BP 136/72; PULSE 60
[2022-02-06 08:03] VITALS: BP 104/60; PULSE 62
[2022-02-11 07:58] VITALS: BP 128/54; PULSE 62
[2022-02-13 08:06] VITALS: BP 120/54; PULSE 98
[2022-02-18 07:59] VITALS: BP 129/58; PULSE 61
[2022-02-20 08:21] VITALS: BP 117/63; PULSE 63
[2022-02-25 08:09] VITALS: BP 118/61; PULSE 66
[2022-02-27 08:20] VITALS: BP 125/55; PULSE 60
== END 2022-03-03 23:59 | disposition home or self-care (01) ==
LOC: CR 08:00
PROVIDERS: PCP Family Medicine; Visit Provider Internal Medicine Cardiovascular Disease
DX: R69 Illness, unspecified (principal)
CPT/HCPCS: S9472

== ENCOUNTER → 2022-03-05 11:17 | Outpatient (BNVA) | payer MEDICARE, SELFPAY | PROVIDERS: PCP Family Medicine; Visit Provider Internal Medicine Cardiovascular Disease | DX: Z95.810 Presence of automatic (implantable) cardiac defibrillator (principal) | CPT/HCPCS: 93284 ==

== ENCOUNTER 2022-03-10 08:52 | Outpatient (CLI) | payer MEDICARE, SELFPAY ==
--- NOTE | 2022-03-10 08:45 | RT.EKG_ITS ---
APPROVED REPORT Exam: Resting ECG Reason for Exam: ASCVD Patient Location: O HR:89 bpm ECG Measurements Heart Rate 89 AXIS PA 133 P -44 QRSd 158 QRS -56 QT 413 T 141 QTc 503 Conclusion A-V dual-paced complexes w/ some inhibition...other complexes also detected No further analysis attempted due to paced rhythm
== END 2022-03-10 08:53 | disposition home or self-care (01) ==
LOC: DI.CARD 08:53
PROVIDERS: PCP Family Medicine; Visit Provider Internal Medicine Cardiovascular Disease
DX: I25.10 Atherosclerotic heart disease of native coronary artery without angina pectoris (principal)
CPT/HCPCS: 93010

== ENCOUNTER → 2022-03-10 13:30 | Outpatient (BNVA) | payer MEDICARE, SELFPAY | PROVIDERS: PCP Family Medicine; Visit Provider Internal Medicine Cardiovascular Disease | DX: I25.5 Ischemic cardiomyopathy (principal); Z95.810 Presence of automatic (implantable) cardiac defibrillator; I25.10 Atherosclerotic heart disease of native coronary artery without angina pectoris | CPT/HCPCS: 93005; 99214 ==

== ENCOUNTER 2022-03-20 08:29 | Outpatient (RCR) | payer SELFPAY ==
[2022-03-04 00:03] VITALS: BP 125/55; PULSE 60
[2022-03-06 08:05] VITALS: BP 121/55; PULSE 53
[2022-03-11 08:00] VITALS: BP 116/48; PULSE 60
[2022-03-13 08:08] VITALS: BP 123/64; PULSE 56
[2022-03-18 08:59] VITALS: BP 119/55; PULSE 60
[2022-03-20 08:00] VITALS: BP 136/66; PULSE 67
== END 2022-04-02 23:59 | disposition home or self-care (01) ==
LOC: CR 08:29
PROVIDERS: PCP Family Medicine; Visit Provider Internal Medicine Cardiovascular Disease
DX: R69 Illness, unspecified (principal)

== ENCOUNTER → 2022-09-03 11:19 | Outpatient (BNVA) | payer MEDICARE, SELFPAY | PROVIDERS: PCP Family Medicine; Visit Provider Internal Medicine Cardiovascular Disease | DX: Z45.02 Encounter for adjustment and management of automatic implantable cardiac defibrillator (principal) | CPT/HCPCS: 93284 ==

== ENCOUNTER → 2022-09-08 13:33 | Outpatient (BNVA) | payer MEDICARE, SELFPAY | PROVIDERS: PCP Family Medicine; Visit Provider Internal Medicine Cardiovascular Disease | DX: I25.10 Atherosclerotic heart disease of native coronary artery without angina pectoris (principal); I25.5 Ischemic cardiomyopathy; Z95.810 Presence of automatic (implantable) cardiac defibrillator | CPT/HCPCS: 99214 ==

== ENCOUNTER 2022-09-30 08:18 | Outpatient (RCR) | payer SELFPAY ==
[2022-09-02 08:16] VITALS: BP 140/76; PULSE 49
[2022-09-04 08:18] VITALS: BP 121/63; PULSE 49
[2022-09-09 08:09] VITALS: BP 117/67; PULSE 64
[2022-09-11 08:13] VITALS: BP 122/65; PULSE 62
[2022-09-16 08:20] VITALS: BP 115/53; PULSE 61
[2022-09-23 08:47] VITALS: BP 133/64; PULSE 51
[2022-09-25 08:35] VITALS: BP 123/56; PULSE 62
[2022-09-30 08:29] VITALS: BP 116/51; PULSE 62
== END 2022-10-01 23:59 | disposition home or self-care (01) ==
LOC: CR 08:18
PROVIDERS: PCP Family Medicine; Visit Provider Internal Medicine Cardiovascular Disease

== ENCOUNTER 2022-10-16 09:54 | Outpatient (CLI) | payer MEDICARE, SELFPAY ==
[2022-10-16 13:08] LABS: Calculated LDL 89 mg/dL (<100); Cholesterol 139 mg/dL (<200); HDL Cholesterol 38 mg/dL (40-60); Triglyceride 64 mg/dL (<150)
[2022-10-16 13:37] LABS: Hemoglobin A1C 5.3 % (<5.7)
== END 2022-10-16 09:55 | disposition home or self-care (01) ==
LOC: LOS 09:55
PROVIDERS: PCP Family Medicine; Visit Provider Family Medicine
DX: E78.5 Hyperlipidemia, unspecified (principal); E11.51 Type 2 diabetes mellitus with diabetic peripheral angiopathy without gangrene
CPT/HCPCS: 36415; 80061; 83036

== ENCOUNTER 2022-10-30 08:04 | Outpatient (RCR) | payer SELFPAY ==
[2022-10-02 00:19] VITALS: BP 116/51; PULSE 62
[2022-10-02 08:29] VITALS: BP 121/65; PULSE 50
[2022-10-07 08:00] VITALS: BP 109/49; PULSE 71
[2022-10-09 08:12] VITALS: BP 123/65; PULSE 66
[2022-10-14 08:27] VITALS: BP 123/67; PULSE 62
[2022-10-16 08:44] VITALS: BP 144/73; PULSE 80
[2022-10-21 08:16] VITALS: BP 116/56; PULSE 75
[2022-10-23 08:13] VITALS: BP 125/57; PULSE 62
[2022-10-28 08:33] VITALS: BP 133/76; PULSE 71
[2022-10-30 10:31] VITALS: BP 119/69; PULSE 59
== END 2022-10-31 23:59 | disposition home or self-care (01) ==
LOC: CR 08:04
PROVIDERS: PCP Family Medicine; Visit Provider Internal Medicine Cardiovascular Disease
DX: R69 Illness, unspecified (principal)

== ENCOUNTER 2022-11-27 07:59 | Outpatient (RCR) | payer SELFPAY ==
[2022-11-01 00:08] VITALS: BP 119/69; PULSE 59
[2022-11-06 08:05] VITALS: BP 121/51; PULSE 60
[2022-11-11 08:11] VITALS: BP 113/60; PULSE 54
[2022-11-18 08:16] VITALS: BP 120/59; PULSE 64
[2022-11-20 08:14] VITALS: BP 119/67; PULSE 60
[2022-11-25 08:16] VITALS: BP 124/59; PULSE 72
[2022-11-27 08:26] VITALS: BP 114/54; PULSE 66
== END 2022-12-01 23:59 | disposition home or self-care (01) ==
LOC: CR 07:59
PROVIDERS: PCP Family Medicine; Visit Provider Internal Medicine Cardiovascular Disease
DX: R69 Illness, unspecified (principal)

== ENCOUNTER 2023-01-01 08:07 | Outpatient (RCR) | payer SELFPAY ==
[2022-12-02 00:12] VITALS: BP 114/54; PULSE 66
[2022-12-02 08:24] VITALS: BP 125/58; PULSE 68
[2022-12-04 08:05] VITALS: BP 112/64; PULSE 67
[2022-12-09 08:16] VITALS: BP 120/61; PULSE 76
[2022-12-11 09:35] VITALS: BP 116/52; PULSE 64
[2022-12-16 08:26] VITALS: BP 123/65; PULSE 70
[2022-12-18 08:32] VITALS: BP 109/54; PULSE 76
[2022-12-23 08:04] VITALS: BP 125/51; PULSE 58
[2022-12-25 08:14] VITALS: BP 113/61; PULSE 76
[2022-12-30 08:22] VITALS: BP 127/75; PULSE 73
[2023-01-01 08:15] VITALS: BP 119/62; PULSE 64
== END 2023-01-01 23:59 | disposition home or self-care (01) ==
LOC: CR 08:07
PROVIDERS: PCP Family Medicine; Visit Provider Internal Medicine Cardiovascular Disease
DX: R69 Illness, unspecified (principal)

== ENCOUNTER 2023-01-29 08:19 | Outpatient (RCR) | payer SELFPAY ==
[2023-01-02 00:19] VITALS: BP 119/62; PULSE 64
[2023-01-06 08:17] VITALS: BP 127/59; PULSE 72
[2023-01-08 08:26] VITALS: BP 103/59; PULSE 65
[2023-01-13 08:12] VITALS: BP 119/56; PULSE 59
[2023-01-15 10:24] VITALS: BP 120/60; PULSE 57
[2023-01-20 08:06] VITALS: BP 124/64; PULSE 57
[2023-01-22 08:14] VITALS: BP 141/73; PULSE 72
[2023-01-27 08:35] VITALS: BP 130/78; PULSE 70
[2023-01-29 08:20] VITALS: BP 109/62; PULSE 58
[2023-02-05 08:24] VITALS: BP 124/60; PULSE 61
== END 2023-01-31 23:59 | disposition home or self-care (01) ==
LOC: CR 08:19
PROVIDERS: PCP Family Medicine; Visit Provider Internal Medicine Cardiovascular Disease
DX: R69 Illness, unspecified (principal)

== ENCOUNTER 2023-03-03 08:03 | Outpatient (RCR) | payer SELFPAY ==
[2023-02-01 00:07] VITALS: BP 109/62; PULSE 58
[2023-02-03 08:14] VITALS: BP 116/50; PULSE 57
[2023-02-10 08:22] VITALS: BP 114/63; PULSE 58
[2023-02-12 08:47] VITALS: BP 121/70; PULSE 60
[2023-02-17 08:06] VITALS: BP 122/59; PULSE 73
[2023-02-19 08:29] VITALS: BP 128/50; PULSE 60
[2023-02-24 08:32] VITALS: BP 124/59; PULSE 67
[2023-02-26 08:06] VITALS: BP 128/52; PULSE 54
[2023-03-03 08:16] VITALS: BP 118/62; PULSE 53
== END 2023-03-03 23:59 | disposition home or self-care (01) ==
LOC: CR 08:03
PROVIDERS: PCP Family Medicine; Visit Provider Internal Medicine Cardiovascular Disease
DX: R69 Illness, unspecified (principal)

== ENCOUNTER 2023-03-04 10:18 | Outpatient (CLI) | payer MEDICARE, SELFPAY ==
--- NOTE | 2023-03-04 10:15 | RT.EKG_ITS ---
APPROVED REPORT Exam: Resting ECG Reason for Exam: cardiomyopathy, CAD Patient Location: O HR:74 bpm ECG Measurements Heart Rate 74 AXIS DE 9 P -66 QRSd 168 QRS -87 QT 473 T 88 QTc 525 Conclusion A-V dual-paced complexes w/ some inhibition...other complexes also detected No further analysis attempted due to paced rhythm
== END 2023-03-04 10:19 | disposition home or self-care (01) ==
LOC: DI.CARD 10:21
PROVIDERS: PCP Family Medicine; Visit Provider Internal Medicine Cardiovascular Disease
DX: I25.2 Old myocardial infarction (principal); Z95.810 Presence of automatic (implantable) cardiac defibrillator
CPT/HCPCS: 93010

== ENCOUNTER → 2023-03-04 11:14 | Outpatient (BNVA) | payer MEDICARE, SELFPAY | PROVIDERS: PCP Family Medicine; Visit Provider Internal Medicine Cardiovascular Disease | DX: Z45.02 Encounter for adjustment and management of automatic implantable cardiac defibrillator (principal); I25.2 Old myocardial infarction | CPT/HCPCS: 93005; 93284 ==

== ENCOUNTER → 2023-03-06 00:36 | Outpatient (CLI) | payer MEDICARE, SELFPAY ==
--- NOTE | 2023-03-06 12:33 | DI.RAD_ITS ---
Exam(s) XR CHEST 2V PA LATERAL EXAM: XR CHEST 2V PA LATERAL CLINICAL HISTORY: assess position of ICD system leads, frequent PVCs,Z95.810 TECHNIQUE: 2D digital imaging was performed. COMPARISON: No exams were available for comparison FINDINGS: HEART: Markedly enlarged. ICD. Multiple leads. Aorta: Not dilated. PULMONARY VASCULATURE: Normal. LUNGS: Clear. PLEURAL SPACE: No pleural effusion or pneumothorax. BONE:Unremarkable for age. IMPRESSION: Cardiomegaly. No acute abnormality. DATA REPOSITORY: RADIATION DOSE DELIVERED:
== END ==
PROVIDERS: PCP Family Medicine; Visit Provider Internal Medicine Cardiovascular Disease
DX: Z95.810 Presence of automatic (implantable) cardiac defibrillator (principal); I51.7 Cardiomegaly
CPT/HCPCS: 71046

== ENCOUNTER → 2023-03-16 13:33 | Outpatient (BNVA) | payer MEDICARE, SELFPAY | PROVIDERS: PCP Family Medicine; Visit Provider Internal Medicine Cardiovascular Disease | DX: I42.9 Cardiomyopathy, unspecified (principal); I25.810 Atherosclerosis of coronary artery bypass graft(s) without angina pectoris | CPT/HCPCS: 99213 ==

== ENCOUNTER 2023-03-17 08:05 | Outpatient (RCR) | payer SELFPAY ==
[2023-03-04 00:17] VITALS: BP 109/62; PULSE 58
[2023-03-05 08:14] VITALS: BP 124/55; PULSE 67
[2023-03-10 08:10] VITALS: BP 118/58; PULSE 69
[2023-03-12 08:50] VITALS: BP 117/55; PULSE 67
[2023-03-17 08:17] VITALS: BP 109/52; PULSE 70
== END 2023-04-02 23:59 | disposition home or self-care (01) ==
LOC: CR 08:05
PROVIDERS: PCP Family Medicine; Visit Provider Internal Medicine Cardiovascular Disease
DX: R69 Illness, unspecified (principal)

== ENCOUNTER 2023-07-30 08:04 | Outpatient (RCR) | payer SELFPAY ==
[2023-07-07 08:23] VITALS: BP 125/49; PULSE 46
[2023-07-09 08:19] VITALS: BP 152/80; PULSE 62
[2023-07-14 08:19] VITALS: BP 113/51; PULSE 62
[2023-07-16 08:00] VITALS: BP 117/65; PULSE 70
[2023-07-21 08:10] VITALS: BP 117/61; PULSE 68
[2023-07-23 08:48] VITALS: BP 128/72; PULSE 67
[2023-07-30 08:25] VITALS: BP 133/68; PULSE 45
== END 2023-08-02 23:59 | disposition home or self-care (01) ==
LOC: CR 08:04
PROVIDERS: PCP Family Medicine; Visit Provider Internal Medicine Cardiovascular Disease
DX: R69 Illness, unspecified (principal)

== ENCOUNTER 2023-09-01 08:02 | Outpatient (RCR) | payer SELFPAY ==
[2023-08-04 09:34] VITALS: BP 100/58; PULSE 69
[2023-08-06 08:09] VITALS: BP 120/68; PULSE 69
[2023-08-11 08:04] VITALS: BP 133/63; PULSE 65
[2023-08-13 07:57] VITALS: BP 121/48; PULSE 65
[2023-08-18 08:10] VITALS: BP 123/56; PULSE 70
[2023-08-25 08:16] VITALS: PULSE 67
[2023-08-27 08:04] VITALS: BP 120/56; PULSE 62
[2023-09-01 08:05] VITALS: BP 121/62; PULSE 71
== END 2023-09-01 23:59 | disposition home or self-care (01) ==
LOC: CR 08:02
PROVIDERS: PCP Family Medicine; Visit Provider Internal Medicine Cardiovascular Disease
DX: R69 Illness, unspecified (principal)

== ENCOUNTER → 2023-09-02 10:18 | Outpatient (BNVA) | payer MEDICARE, SELFPAY | PROVIDERS: PCP Family Medicine; Visit Provider Internal Medicine Cardiovascular Disease | DX: Z95.810 Presence of automatic (implantable) cardiac defibrillator (principal); I25.2 Old myocardial infarction | CPT/HCPCS: 93284 ==

== ENCOUNTER → 2023-09-15 08:52 | Outpatient (BNVA) | payer MEDICARE, SELFPAY | PROVIDERS: PCP Family Medicine; Visit Provider Internal Medicine Cardiovascular Disease | DX: I42.9 Cardiomyopathy, unspecified (principal); I25.10 Atherosclerotic heart disease of native coronary artery without angina pectoris; I25.5 Ischemic cardiomyopathy; Z95.810 Presence of automatic (implantable) cardiac defibrillator | CPT/HCPCS: 99213 ==

== ENCOUNTER 2023-10-01 08:07 | Outpatient (RCR) | payer SELFPAY ==
[2023-09-02 00:12] VITALS: BP 121/62; PULSE 71
[2023-09-03 08:11] VITALS: BP 108/53; PULSE 63; O2SAT 97
[2023-09-08 09:06] VITALS: BP 120/56; PULSE 61
[2023-09-10 10:37] VITALS: BP 123/50; PULSE 47
[2023-09-15 08:12] VITALS: BP 112/50; PULSE 67
[2023-09-17 08:00] VITALS: BP 107/40; PULSE 64
[2023-09-22 08:12] VITALS: BP 116/57; PULSE 71
[2023-09-24 08:18] VITALS: BP 122/70; PULSE 78
[2023-09-29 08:28] VITALS: BP 124/67; PULSE 70
[2023-10-01 08:22] VITALS: BP 119/65; PULSE 71
== END 2023-10-02 23:59 | disposition home or self-care (01) ==
LOC: CR 08:07
PROVIDERS: PCP Family Medicine; Visit Provider Internal Medicine Cardiovascular Disease
DX: R69 Illness, unspecified (principal)

== ENCOUNTER → 2023-10-14 00:38 | Outpatient (CLI) | payer MEDICARE, SELFPAY ==
--- NOTE | 2023-10-14 08:35 | DI.US_ITS ---
APPROVED REPORT EXAM: Comprehensive 2D, Doppler, and color-flow Echocardiogram Patient Location: Out-Patient Radio Communication Coordinator: Alexandrea Angelo RDCS (AE) Indications: Recheck LV function, Ischemic cardiomyopathy. CAD Other Information Study Quality: Fair. Technically limited study due to body habitus. Conclusion Moderately dilated left ventricle. EF is 30 to 35% with global hypokinesis Right ventricle is not well-visualized. There is a device lead noted in the right heart Borderline dilated left atrium. Normal right atrial size Aortic valve is sclerotic without stenosis or regurgitation Mild mitral annular calcification. Mild mitral regurgitation Estimated right ventricular systolic pressure is 34 mmHg Wall motion Left Ventricle Left ventricle is moderately dilated. Left ventricular systolic function is moderate to severely decr eased. There is normal left ventricular wall thickness. There is global hypokinesis of the left ventr icle. There is no ventricular septal defect visualized. LVEF is30-35%. Right Ventricle Right ventricle is not well visualized. Right ventricular systolic function could not be assessed. De vice lead is present in the right ventricle. Atria Left atrium is borderline dilated. The right atrium size is normal. The interatrial septum is intact with no evidence for an atrial septal defect. Aortic Valve The Aortic valve is sclerotic. Aortic valve is trileaflet. There is no aortic valvular stenosis. No a ortic regurgitation is present. Mitral Valve Mild mitral annular calcification. No evidence of mitral valve stenosis. Mild mitral regurgitation. Tricuspid Valve The tricuspid valve is normal in structure. There is no tricuspid valve stenosis. Mild tricuspid regu rgitation. The RVSP is 33.8mmHg. Pulmonic Valve The pulmonary valve is normal in structure. There is no pulmonic valvular stenosis. Trace to mild pul donaldo regurgitation. Great Vessels The aortic root is normal in size. The ascending aorta is normal in size. Aortic arch is not well vis ualized. IVC is normal in size and collapses >50% with inspiration. Pericardium There is no pericardial effusion. 2D Dimensions IVSD d PLAX 1.05 cm M: 0.6-1.2 Ao Root d 3.28 cm M: 3.1 - 3.7 LVPW d PLAX 1.10 cm M: 0.6 - 1.2 Ao Asc Diam d 3.48 cm M: 2.6 - 3.4 LVID d PLAX 6.69 cm M: 4.2 - 5.8 LVDs 6.06 cm M: 2.5 - 4.0 LV EF Teichholz 20.1 % FS 9.37 % LV EDV (Teich) 230.3 mL LV ESV (Teich) 184.1 mL M-Mode TAPSE 2.22 cm (M/F) >1.7 Auto EF LV EDV A4C 188.9 mL LV EDV A2C 211.3 mL LV EDV BP 203.3 mL LV ESV A4C 146.2 mL LV ESV A2C 163.0 mL LV ESV BP 161.2 mL LVEF(%) A4C 22.6 % LVEF(%) A2C 22.9 % LVEF(%) BP 20.7 % LV SV A4C 42.7 ml LV SV A2C 48.3 ml LV SV BP 42.1 ml LV CO A4C 3.0 L/min LV CO A2C 4.4 L/min LV CO BP 3.7 L/min HR A4C 69.77 BPM HR A2C 90.23 BPM LV EDV Index (BP) LV Strain Long Pk Overal Avg (s) 7.18 LA Volume LA Length A4C 6.0 cm LA Length A2C 4.6 cm LA Area A4C s 27.20 cm2 LA Area A2C s 15.58 cm2 LA Vol A4C A-L 104.40 mL LA Vol A2C A-L 45.05 mL LA Vol Biplane A-L 78.6 mL LA Vol/BSA A4C A-L LA Vol/BSA A2C A-L LA Vol/BSA BP A-L 34.6 mL/m2 LA Vol A4C MOD 95.5 mL LA Vol A2C MOD 42.2 mL LA Vol BP MOD 72.5 mL RA Volume RA Area A4C 18.4 cm2 RA ESV A4C (A-L) 52.1mL RA Vol/BSA A4C A-L RA Length A4C 5.5 cm RA ESV A4C (MOD) 49.8mL LV Diastology MV E' medial 0.046 (>0.07 m/s) MV E Vmax 0.76 (0.4-1.3 m/s) MV E/E' MED 16.45 (<14) MV A Vmax 0.85 (0.4-1.3 m/s) MV E' lateral 0.041 (>0.1 m/s) E/A Ratio 0.9 MV E/E' LAT 18.62 (<14) MV E' Average 0.043 m/s MV E/E'(average) 17.47 Aortic Valve AoV Vmax 1.47 m/s LVOT Vmax 1.00 m/s AoV Peak Grad 8.6 mmHg LVOT Peak Grad 4.0 mmHg AoV Area (Vmax) 2.24 cm2 LVOT VTI 0.207 m AoV VTI 0.334 m LVOT Mean Grad 2.5 mmHg AoV Mean Adrian. 1.06 m/s LVOT SV 68.07 mL AoV Mean Grad 5.0 mmHg LVOT Diam s 2.00 cm AoV Area (VTI) 2.04 cm2 Velocity Ratio 0.68 Mitral Valve MV DT 179 (160-240 msec) MV Vmax TIPS 0.85 m/s MV Mean Grad 1.6 (<2mmHg) MV VTI 0.354 m Pulmonary Valve PV Vmax 0.97 (0.5-1.5 m/s) RVOT Vmax 0.57 m/s PV Peak Grad 3.8 mmHg RVOT Peak Gr. 1.3 mmHg PV Mean Adrian 0.62 m/s RVOT VTI 0.130 m PV Mean Grad 1.8 mmHg RVOT Mean Gr. 0.8 mmHg Tricuspid Valve RA Pressure 3.00 mmHg TR Vmax 2.77 m/s TV S' 0.12 m/s TR Peak Grad 30.7 mmHg RVSP (TR) 33.8 mmHg
== END ==
PROVIDERS: PCP Family Medicine; Visit Provider Internal Medicine Cardiovascular Disease
DX: I25.5 Ischemic cardiomyopathy (principal); I34.0 Nonrheumatic mitral (valve) insufficiency
CPT/HCPCS: 93306

== ENCOUNTER 2023-10-29 08:26 | Outpatient (RCR) | payer SELFPAY ==
[2023-10-03 00:06] VITALS: BP 121/62; PULSE 71
[2023-10-06 08:19] VITALS: BP 116/60; PULSE 70
[2023-10-08 08:12] VITALS: BP 124/57; PULSE 69
[2023-10-20 08:20] VITALS: BP 132/68; PULSE 70
[2023-10-22 08:15] VITALS: BP 119/69; PULSE 70
[2023-10-27 08:17] VITALS: BP 120/64; PULSE 68
[2023-10-29 09:13] VITALS: BP 106/66; PULSE 70
== END 2023-11-01 23:59 | disposition home or self-care (01) ==
LOC: CR 08:26
PROVIDERS: PCP Family Medicine; Visit Provider Internal Medicine Cardiovascular Disease
DX: R69 Illness, unspecified (principal)

== ENCOUNTER 2023-11-03 03:13 | Outpatient (CLI) | payer MEDICARE, SELFPAY ==
[2023-11-03 09:54] LABS: HCT 43.3 % (40.0-50.0); HGB 14.4 g/dL (13.5-17.5); MCH 31.5 pg (27.0-33.0); MCHC 33.3 % (32.0-36.0); MCV 95 fL (80-95); MPV 10.1 fL (8.0-11.0); Platelet Count 153 10^3/uL (130-400); RBC 4.57 10^6/uL (4.36-5.78); RDW 12.9 % (11.8-14.1); RDW-SD 45.6 fL; WBC 6.65 10^3/uL (4.4-10.8)
[2023-11-03 10:14] LABS: CREATININE 0.9 mg/dL (0.70-1.30); Calculated LDL 107 mg/dL (<100); Cholesterol 163 mg/dL (<200); Estimated GFR 84.74 (mL/min/1.73m2); HDL Cholesterol 40 mg/dL (40-60); Potassium 4.7 mmol/L (3.5-5.1); Triglyceride 83 mg/dL (<150)
== END 2023-11-03 03:14 | disposition home or self-care (01) ==
LOC: LBO 03:13
PROVIDERS: PCP Family Medicine; Visit Provider Family Medicine
DX: I10 Essential (primary) hypertension (principal); E78.5 Hyperlipidemia, unspecified; R53.83 Other fatigue
CPT/HCPCS: 36415; 80061; 85027; 82565; 84132

== ENCOUNTER 2023-11-26 08:00 | Outpatient (RCR) | payer SELFPAY ==
[2023-11-02 00:17] VITALS: BP 121/62; PULSE 71
[2023-11-03 08:14] VITALS: BP 120/60; PULSE 69
[2023-11-17 07:57] VITALS: BP 129/69; PULSE 70
--- OUTSIDE RECORDS SUMMARY | 2023-11-17 08:08 | XMS_ITS | Clinical Summary ---
Author Organization [facility] Address [address] [place] [address] Care Team Providers Care Hotel Office Manager Name Role Phone Clem Olvera MD Primary Care Provider [phone] Allergies No known active allergies Medications Medication Sig Dispensed Refills Start Date End Date Status atorvastatin (LIPITOR) 40 mg tablet Take 40 mg by mouth daily. Active lisinopril (PRINIVIL, ZESTRIL) 2.5 mg tablet Take 2.5 mg by mouth daily. Active spironolactone (ALDACTONE) 25 mg tablet Take 12.5 mg by mouth daily. Active tamsulosin (FLOMAX) 0.4 mg capsule Take by mouth daily. Active carvedilol (COREG) 3.125 mg tablet Take 3.125 mg by mouth 2 times daily with breakfast and dinner. Active aspirin chewable 81 mg tablet Take 81 mg by mouth daily. 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 Medical History Medical History Date Comments CAD (coronary artery disease) Ischemic cardiomyopathy AV block, 2nd degree LBBB (left bundle branch block) ICD (implantable cardioverter-defibrillator) in place ICD (implantable cardioverter-defibrillator) bat simone depletion Social History Tobacco Use Types Packs/Day Years Used Date Smoking Tobacco: Former Cigarettes 1989 Alcohol Use Standard Drinks/Week Comments Yes 11 (1 standard drink = 0.6 oz pu re alcohol) Interpersonal Safety Answer Date Record ed Physically Hurt Never 12/04/2019 Verbally Threaten Not on file 12/04/2019 Sex and Gender Information Value Date Recorded Sex Assigned at Not on file Gender Identity Not on file Sexual Orientation Not on file Obstetrics History Last Filed Vital Signs Vital Sign Reading Time Taken Comments Blood Pressure 129/72 02/28/2016 0830 EDT Pulse - - Temperature 36.5 ??C (97.7 ??F) 02/28/2016 0830 EDT Respiratory Rate 18 02/28/2016 0830 EDT Oxygen Saturation 97% 02/28/2016 0830 EDT Inhaled Oxygen Concentration - - Weight 105.7 kg (233 lb) 02/27/2016 1356 EDT Height 175.3 cm (5' 9) 02/27/2016 1356 EDT Body Mass Index 34.41 02/27/2016 1356 EDT Plan of Treatment Health Maintenance Due Date Last Done Comments RSV Immunization ( o r 60+ Years) (1 - 1-dose 60+ series) 2000 Fall Risk Screening 2005 COVID-19 Vaccine (2022- season) 2023 Advance Directives For more information, please contact: [phone] * Full Code (Latest Code Status on File) Date Activated Date Inactivated Comments 02/27/2016 8:49 02/28/2016 15:40 Question Answer Comments Reason for decision includes: Full code consistent with overall plan of care Who participated in the discussion? Not Discusse d Care Teams Hotel Office Manager Relationship Specialty Start Date End Date Clem Olvera MD [address] [place] [id number] PCP - General 12/18/15
--- OUTSIDE RECORDS SUMMARY | 2023-11-17 08:08 | XMS_ITS | Encounter Summary ---
Author Organization [facility] Address [address] [place] [address] Care Team Providers Care Cutter Head Sharpener Name Role Phone Clem Olvera MD Primary Care Provider [phone] Reason for Visit * Reason Onset Date Comments Appointment Related 10/23/2016 Check for fo llow up of pacer Encounter Details Date Type Department Care Team ([facility] Contact Info) Description 10/23/2016 Telephone [facility] Cardiology - [address] [place] [address] Pacemaker, Pace Appointment Related (Check for follow up of pacer) Social History Tobacco Use Types Packs/Day Years Used Date Smoking Tobacco: Former Cigarettes 5 1989 Alcohol Use Standard Drinks/Week Comments Yes 11 (1 standard drink = 0.6 oz pu re alcohol) Sex and Gender Information Value Date Recorded Sex Assigned at Not on file Gender Identity Not on file Sexual Orientation Not on file documented as of this encounter Functional Status Functional Status Response Date of Assess ment Are you deaf or do you have serious difficulty h earing? No 02/27/2016 Are you blind or do you have serious difficulty seeing, even when wearing glasses? No 02/27/2016 Do you have serious difficul ty walking or climbing stairs? (5 years old or older) No 02/27/2016 Do you have difficulty dress ing or bathing? (5 years old or older) No 02/27/2016 Because of a physical, menta l, or emotional condition, do you have difficulty doing errands alone such as visiting a doctor's office or shopping? (15 years old or older) No 02/27/2016 Cognitive Status Response Date of Assessm ent Because of a physical, menta l, or emotional condition, do you have serious difficulty concentrating, remembering, or making decisions? (5 years old or older) No 02/27/2016 documented as of this encounter Miscellaneous Notes * Telephone Encounter - Pushpa Shay - 10/23/2016 1507 EDT Spoke with Mrs. Iglesias who stated that Nabil had his pacemaker checked in [place] where they are for the winter. They have some back and are being followed by Dr. Hurd at [facility]. documented in this encounter Plan of Treatment Not on file documented as of this encounter Visit Diagnoses Not on filedocumented in this encounter Care Teams Cutter Head Sharpener Relationship Specialty Start Date End Date Clem Olvera MD [address] [place] [id number] PCP - General 12/18/15 documented as of this encounter
--- OUTSIDE RECORDS SUMMARY | 2023-11-17 08:08 | XMS_ITS | Referral Summary ---
Author Organization [facility] Address [address] [place] [address] Care Team Providers Care Wafer Fabrication Technician Name Role Phone Clem Olvera MD Primary Care Provider [phone] Allergies No known active allergies Medications Medication [...] PF 0.5 ml IM (3 yrs+) 02/28/2016 Social History Tobacco Use Types Packs/Day Years Used Date Smoking Tobacco: Former Cigarettes 1 - 1989 Alcohol Use Standard Drinks/Week Comments Yes 11 (1 standard drink = 0.6 oz pu re alcohol) Interpersonal Safety Answer Date Record ed Physically Hurt Never 12/04/2019 Verbally Threaten Not on file 12/04/2019 Sex and Gender Information Value Date Recorded Sex Assigned at Not on file Gender Identity Not on file Sexual Orientation Not on file Last Filed Vital Signs Vital Sign Reading [...] Body Mass Index 34.41 02/27/2016 1356 EDT Functional Status Functional Status Response Date of [...] (5 years old or older) No 02/27/2016 Plan of Treatment Not on file Advance Directives For more information, please contact: [phone] * Full Code (Latest Code Status on File) Date Activated Date Inactivated Comments 02/27/2016 8:49 02/28/2016 15:40 Question Answer Comments Reason for decision includes: Full code consistent with overall plan of care Who participated in the discussion? Not Discusse d Care Teams Wafer Fabrication Technician Relationship Specialty Start Date End Date Clem Olvera MD [address] [place] [address] [id number] PCP - General 12/18/15
--- OUTSIDE RECORDS SUMMARY | 2023-11-17 08:08 | XMS_ITS | Encounter Summary ---
Author Organization [facility] Address [address] [place] [address] Care Team Providers Care Boiler Room Helper Name Role Phone Clem Olvera MD Primary Care Provider [phone] Encounter Details Date Type Department Care Team (Late st Contact Info) Description 03/16/2019 Abstract 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) Social History Tobacco Use Types Packs/Day Years [...] No 02/27/2016 documented as of this encounter Plan of Treatment Not on file documented as of this encounter Procedures Procedure Name Priority Date/Time Associated Diagnosis Comments CARDIAC IMPLANT CHECK - REMOTE MONITOR Routine 03/16/2019 17:28 EST AV block, 2nd degree documented in this encounter Results * CARDIAC IMPLANT CHECK - REMOTE - ICD (03/16/2019 17:28 EST) Anatomical Region Laterality Modality Device Narrative 03/24/2019 10:30 EST [facility] Cardiology Device Visit Siebel Solution Architect: [employer] Device Type: CASH APPLICATIONS MANAGER-D Service: Remote ? Indication: ICMO Battery Longevity: 5 years years Mode: DDD URL/LRL: 60/130bpm Atrial Paced: 11.7% Ventricle Paced: 89% Lead Impedance, threshold, and sensing testing all within normal parameters. (See scanned documentation associated with this visit for full details) There were: no alerts , automatic mode switching, or high ventricular rate episodes. No therapies delivered. AMS: none AF burden: none Impression: The leads and device are functioning normally. Miguel Ángel George APRN Miguel Ángel George DEVOPS ARCHITECT CV IMPLANTABLE CARDI AC DEVICE documented in this encounter Visit Diagnoses Diagnosis AV block, 2nd degree- Primary Other second degree atrioventricular block documented in this encounter Care Teams Boiler Room Helper Relationship Specialty Start Date End Date Clem Olvera MD [address] [place] [id number] PCP - General 12/18/15 documented as of this encounter
--- OUTSIDE RECORDS SUMMARY | 2023-11-17 08:08 | XMS_ITS | Encounter Summary ---
Author Organization [facility] Address [address] [place] [address] Care Team Providers Care Safety Lamp Keeper Name Role Phone Clem Olvera MD Primary Care Provider [phone] Reason for Visit * Reason Onset Date Comments Other 04/04/2019 Transfer request for Pacer Care at [facility] Encounter Details Date Type Department Care Team (Late st Contact Info) Description 04/04/[address] [facility] Cardiology Clinic [address] [place] [address] Giselle Hill, ELECTRONICS ENGINEERING TECHNOLOGIST Other (Transfer request for Pacer Care at [facility]) Social History Tobacco Use Types Packs/Day Years [...] encounter Miscellaneous Notes * Telephone Encounter - Shoshana Chin, JADON - 04/04/2019 1707 EST Release complete per nadege Hein telephone encounter * Telephone Encounter - Melvina Duarte - 04/04/2019 1503 EST I went into the [employer] Website and released pt to [facility] Pacer [facility] as requested. * Telephone Encounter - Suze Reynoso - 04/04/2019 1342 EST PT WILL BE HAVING HIS PACER CARE DONE AT [facility], PLEASE RELEASE HIS REMOTE MONITORING SO THAT THEY CAN PICK IT UP documented in this encounter Plan of Treatment Not on file documented as of this encounter Visit Diagnoses Not on filedocumented in this encounter Care Teams Safety Lamp Keeper Relationship Specialty Start Date End Date Clem Olvera MD [address] [place] [id number] PCP - General 12/18/15 documented as of this encounter
--- OUTSIDE RECORDS SUMMARY | 2023-11-17 08:09 | XMS_ITS | Encounter Summary ---
[place] [address] Care Team Providers Care Or Manager Name Role Phone Donny Cooper MD Primary Care Provider [phone] Encounter Details Date Type Department Care Team (Latest Contact Info) Description 04/03/2023 10:00 AM EST - 04/03/2023 11:59 PM [facility] Hospital Encounter Non-Invasive [place] [address] Discharge Disposition: Home Social History Tobacco Use Types Packs/Day Years Used Date Smoking Tobacco: Former Smokeless Tobacco: Never Alcohol Use Standard Drinks/Week Comments Yes 3 (1 standard drink = 0.6 oz pur e alcohol) Sex and Gender Information Value Date Recorded Sex Assigned at Not on file Gender Identity Not on file Sexual Orientation Not on file documented as of this encounter Medications at Time of Discharge Medication Sig Dispensed Refills Start Date End Date apixaban (ELIQUIS) 5 mg Tablet Take 5 mg by mouth 2 times daily. carvedilol (COREG) 3.125 mg Tablet Take 3.125 mg by mouth daily. furosemide (LASIX) 40 mg Tablet Take 40 mg by mouth 2 times daily. spironolactone (ALDACTONE) 25 mg Tablet Take 25 mg by mouth daily. tamsulosin (FLOMAX) 0.4 mg capsule Take 0.4 mg by mouth daily. atenolol (TENORMIN) 25 mg tablet 25mg, PO, Once daily 06/12/2010 lisinopril (PRINIVIL;ZESTRIL) 40 mg tablet 40mg, PO, Once daily 06/12/2010 atorvastatin (LIPITOR) 80 mg tablet 80mg, PO, Once daily 06/12/2010 Aspirin 81 mg TbEF 325 MG = 1 Tablet(s), PO, Once daily 06/12/2010 documented as of this encounter Plan of Treatment Upcoming Encounters Date Type Department Care Team (Late st Contact Info) Description 02/02/2024 10:00 AM EDT Hospital Encounter Non-Invasive [place] [address] Arrived documented as of this encounter Procedures Procedure Name Priority Date/Time Associated Diagnosis Comments PRO ICD INTERROGATION REMOTE UP TO 90 DAYS Routine 02/03/2023 4:23 AM EDT documented in this encounter Results * Cardiac Device Check - Remote (02/03/2023 4:23 AM EDT) Anatomical Region Laterality Modality Other 02/03/2023 4:23 AM EDT Braxton Olivera MD IMPLANTABLE CARDIAC DEVICE documented in this encounter Visit Diagnoses Not on filedocumented in this encounter Care Teams Or Manager Relationship Specialty Start Date End Date Donny Cooper MD [address] [place] [address] PCP - General Family Medicine 02/25/19 documented as of this encounter
--- OUTSIDE RECORDS SUMMARY | 2023-11-17 08:09 | XMS_ITS | Encounter Summary ---
[place] [address] Care Team Providers Care Roofer Vinyl Coating Name Role Phone Donny Cooper MD Primary Care Provider [phone] Encounter Details Date Type Department Care Team (Late st Contact Info) Description 06/14/2020 Telephone Cardiology at [address] [phone] Nhung Briggs Social History Tobacco Use Types Packs/Day Years Used Date Smoking Tobacco: Former Smokeless Tobacco: Never Alcohol Use Standard Drinks/Week Comments Yes 3 (1 standard drink = 0.6 oz pur e alcohol) Sex and Gender Information Value Date Recorded Sex Assigned at Not on file Gender Identity Not on file Sexual Orientation Not on file documented as of this encounter Miscellaneous Notes * Telephone Encounter - Nhung Allen - 06/14/2020 11:[address] Seals, pt should be seen for suboptimal biventricular pacing. Spoke to pt. He would like to be seen at [facility]. Email sent to Brittaney Hernandez at [facility] asking her to reach out to pt to set up the appt with either Dr. Arguelles or LANG Albert. Nhung Allen Electrophysiology Scheduling [id number] option 2 documented in this encounter Plan of Treatment Upcoming Encounters Date Type Department Care Team (Late st Contact Info) Description 02/02/2024 10:00 AM EDT Hospital Encounter [place] [address] Arrived documented as of this encounter Visit Diagnoses Not on filedocumented in this encounter Care Teams Roofer Vinyl Coating Relationship Specialty Start Date End Date Donny Cooper MD [address] [place] [address] PCP - General Family Medicine 02/25/19 documented as of this encounter
--- OUTSIDE RECORDS SUMMARY | 2023-11-17 08:09 | XMS_ITS | Encounter Summary ---
[place] [address] Care Team Providers Care Hospitality Associate Name Role Phone Donny Cooper MD Primary Care Provider [phone] Encounter Details Date Type Department Care Team (Latest Contact Info) Description 10/05/2022 10:00 AM EDT - 10/05/2022 11:59 PM EDT Hospital Encounter Non-[place] [address] Discharge Disposition: Home Social History Tobacco Use [...] AM EDT Hospital Encounter Non-[place] [phone] Arrived documented as of this encounter Procedures Procedure Name Priority Date/Time Associated Diagnosis Comments PRO ICD INTERROGATION REMOTE UP TO 90 DAYS Routine 08/08/2022 3:17 AM EDT documented in this encounter Results * Cardiac Device Check - Remote (08/08/2022 3:17 AM EDT) Anatomical Region Laterality Modality Other 08/08/2022 3:17 AM EDT Miriam Zapata MD IMPLANTABLE CARDIAC DEVICE documented in this encounter Visit Diagnoses Not on filedocumented in this encounter Care Teams Hospitality Associate Relationship Specialty Start Date End Date Donny Cooper MD [address] [place] [address] PCP - General Family Medicine 02/25/19 documented as of this encounter
--- OUTSIDE RECORDS SUMMARY | 2023-11-17 08:09 | XMS_ITS | Encounter Summary ---
[place] [address] Care Team Providers Care Dinkey Engine Firer/Fireman Name Role Phone Donny Cooper MD Primary Care Provider [phone] Encounter Details Date Type Department Care Team (Latest Contact Info) Description 07/07/2022 10:00 AM EST - 07/07/2022 11:59 PM EST Hospital Encounter [place] [address] Discharge Disposition: Home Social History Tobacco Use [...] AM EDT Hospital Encounter [place] [address] Arrived documented as of this encounter Procedures Procedure Name Priority Date/Time Associated Diagnosis Comments PRO ICD INTERROGATION REMOTE UP TO 90 DAYS Routine 05/09/2022 6:33 AM EST documented in this encounter Results * Cardiac Device Check - Remote (05/09/2022 6:33 AM EST) Anatomical Region Laterality Modality Other 05/09/2022 6:33 AM EST Braxton Olivera MD IMPLANTABLE CARDIAC DEVICE documented in this encounter Visit Diagnoses Not on filedocumented in this encounter Care Teams Dinkey Engine Firer/Fireman Relationship Specialty Start Date End Date Donny Cooper MD [address] [place] [address] PCP - General Family Medicine 02/25/19 documented as of this encounter
--- OUTSIDE RECORDS SUMMARY | 2023-11-17 08:09 | XMS_ITS | Encounter Summary ---
Author Organization [facility] [place] [address] Care Team Providers Care Rehabilitation Inspector Name Role Phone Clem Olvera MD Primary Care Provider [phone] Reason for Visit * Reason Comments Follow Up Fracture SP PATELLA FX DO12/12 DOI 03/30/10 Encounter Details Date Type Department Care Team (Late st Contact Info) Description 04/09/2011 1:30 PM EST Office [place] [address] Jairon Gustafson MD [facility] [place] [address] Jose Francisco Bee PA [facility] [place] [address] Patella fracture (Primary Dx) Discharge Disposition: Home Social History Tobacco Use Types Packs/Day Years Used Date Smoking Tobacco: Former Smokeless Tobacco: Never Alcohol Use Standard Drinks/Week Comments Yes 3 (1 standard drink = 0.6 oz pur e alcohol) Sex and Gender Information Value Date Recorded Sex Assigned at Not on file Gender Identity Not on file Sexual Orientation Not on file documented as of this encounter Last Filed Vital Signs Vital Sign Reading Time Taken Comments Blood Pressure 128/59 04/09/2011 1:37 PM EST Pulse 88 04/09/2011 1:37 PM EST Temperature - - Respiratory Rate - - Oxygen Saturation - - Inhaled Oxygen Concentration - - Weight 120.1 kg (264 lb 11. 2 oz) 04/09/2011 1:37 PM EST Height 172.7 cm (5' 8) 04/09/2011 1:37 PM EST P T STATED Body Mass Index 40.25 04/09/2011 1:37 PM EST documented in this encounter Progress Notes * Jairon Gustafson MD - 04/09/2011 2:12 PM EST I saw this patient in conjunction with LANG Liao, today. Please see his note for details of the history and physical examination. In short, Mr. Iglesias is one year status post operative treatment of patellar tendon rupture with separation of a bipartite patella. Overall, the patient is doing remarkably well. He has returned to full activities and can climb stairs and walk downhill without any issues. On exam today, his knee is stable. He has got full extension and 5/5 strength. We did not do any repeat x-rays today. I have recommended that he continue with normal activities. If he is ever bothered by his hardware, then we would be happy to remove it for him. However, at this point he is not aware of it. We will see him back on an as-needed basis if he develops any issues. * Jose Francisco Bee PA - 04/09/2011 1:58 PM EST SURGERY DATE: 03/31/2010 JAIRON GUSTAFSON MD PROCEDURE: 1. Open reduction internal fixation of left patellar fracture. 2. Repair of left quadriceps tendon rupture. PREOPERATIVE DIAGNOSIS: Left quad tendon rupture with superolateral patellar avulsion fracture. INSTRUMENTATION USED: Synthes 4.0 cannulated screws x1. HPI: Mr Iglesias returns 12 months from his quad tendon repair. He is doing well. He has some apprehension when descending stairs but otherwise has no complaints. There is no swelling. He has no weakness. He has avoided kneeling since the injury. There has been no injuries or infections. He denies SOB or chest pain. He did have two cataracts fixed since his last appointment. Physical exam: 70 yo male ambulatory without antalgia or assist. The left knee shows no. No lag or pain with straight leg raise; no weakness with resisted knee extension. ROM from 0 is 140 degrees, symmetric to the contralateral side. No pain with patella manipulation or patella grind. Calves soft and nontender without edema. Assessment: S/P Left quad tend repair with patella ORIF Plan: We discussed his x-rays. He is doing well. We discussed activity modification; he can continue to increase actvities as tolerated including kneeling. Ice and NSAIDs recommedend for swelling. We'll see him again as needed. documented in this encounter Plan of Treatment Upcoming Encounters Date Type Department Care Team (Late st Contact Info) Description 02/02/2024 10:00 AM EDT Hospital Encounter Non-[place]vasive [place] [address] Arrived documented as of this encounter Visit Diagnoses Diagnosis Patella fracture- Primary Closed fracture of patella documented in this encounter Care Teams Rehabilitation Inspector Relationship Specialty Start Date End Date Clem Olvera MD [address] [place] [address] PCP - General 04/09/11 02/24/19 documented as of this encounter
--- OUTSIDE RECORDS SUMMARY | 2023-11-17 08:09 | XMS_ITS | Encounter Summary ---
[place] [address] Care Team Providers Care Shock Absorber Installer Name Role Phone Marques Martinez MD Primary Care Provider [phone] Encounter Details Date Type Department Care Team (Late st Contact Info) Description 06/12/2010 2:00 PM EST Procedure visit [place] [address] Social History Tobacco Use Types Packs/Day Years Used Date Smoking Tobacco: Never Assessed Sex and Gender Information Value Date Recorded Sex Assigned at Not on file Gender Identity Not on file Sexual Orientation Not on file documented as of this encounter Plan of Treatment Upcoming Encounters Date Type Department Care Team (Late st Contact Info) Description 02/02/2024 10:00 AM EDT Hospital Encounter Non-[place] [address] Arrived documented as of this encounter Visit Diagnoses Not on filedocumented in this encounter Care Teams Shock Absorber Installer Relationship Specialty Start Date End Date Marques Martinez MD [address] [place] [address] PCP - General 04/01/10 04/08/11 documented as of this encounter
--- OUTSIDE RECORDS SUMMARY | 2023-11-17 08:09 | XMS_ITS | Encounter Summary ---
Author Organization [facility] [place] [address] Care Team Providers Care Cuff Runner Name Role Phone Marques Martinez MD Primary Care Provider [phone] Encounter Details Date Type Department Care Team (Late st Contact Info) Description 06/12/2010 2:10 PM EST Office [place] [phone] Jairon Fenton MD [facility] [address] [place] [address] Discharge Disposition: Home Social History Tobacco Use [...] AM EDT Hospital Encounter Non-Invasive [place] [address] Arrived documented as of this encounter Visit Diagnoses Not on filedocumented in this encounter Care Teams Cuff Runner Relationship Specialty Start Date End Date Marques Martinez MD [address] [place] [address] PCP - General 04/01/10 04/08/11 documented as of this encounter
--- OUTSIDE RECORDS SUMMARY | 2023-11-17 08:09 | XMS_ITS | Encounter Summary ---
Author Organization Formerly [facility] [place] [address] Care Team Providers Care Podiatric Aide Name Role Phone Marques Martinez MD Primary Care Provider [phone] Reason for Visit * Reason Comments Follow Up Fracture PATELLA FX DOI 03/23 10 Encounter Details Date Type Department Care Team (Late st Contact Info) Description 10/09/2010 12:40 PM EDT Office [place] [address] Jairon Gustafson MD [facility] [place] [address] Jose Francisco Bee PA [facility] [place] [address] Quadriceps tendon rupture (Primary Dx) Discharge Disposition: Home Social History Tobacco Use Types Packs/Day Years Used Date Smoking Tobacco: Former Alcohol Use Standard Drinks/Week Comments Yes 3 (1 standard drink = 0.6 oz pur e alcohol) Sex and Gender Information Value Date Recorded Sex Assigned at Not on file Gender Identity Not on file Sexual Orientation Not on file documented as of this encounter Last Filed Vital Signs Vital Sign Reading Time Taken Comments Blood Pressure 121/65 10/09/2010 12:58 PM EDT Pulse 78 10/09/2010 12:58 PM EDT Temperature 36.9 ??C (98.4 ??F) 10/09/2010 12:58 PM E DT Respiratory Rate - - Oxygen Saturation 95% 10/09/2010 12:58 PM EDT Inhaled Oxygen Concentration - - Weight 111.1 kg (245 lb) 10/09/2010 12:58 PM EDT Height 175.3 cm (5' 9) 10/09/2010 12:58 PM EDT Body Mass Index 36.18 10/09/2010 12:58 PM EDT documented in this encounter Progress Notes * Jose Francisco Bee PA - 10/09/2010 1:35 PM EDT SURGERY DATE: 03/31/2010 JAIRON GUSTAFSON MD PROCEDURE: 1. Open reduction internal fixation of left patellar fracture. 2. Repair of left quadriceps tendon rupture. PREOPERATIVE DIAGNOSIS: Left quad tendon rupture with superolateral patellar avulsion fracture. INSTRUMENTATION USED: Synthes 4.0 cannulated screws x1. HPI: Mr Iglesias returns 6 months from his quad tendon repair. He is doing well. He has some anteriordiscomfort when descending stairs or declines; his contralateral knee hurts at these times as well.He avoid kneeling. There is some swelling most of the time. He feels no limitations related to the knee. There has been no injuries or infections. He denies SOB or chest pain. Physical exam: 70 yo male ambulatory without antalgia or assist. The left knee shows moderate effusion. No lag or pain with straight leg raise. ROM is 140 degrees, symmetric to the contralateral side. No pain with patella manipulation or patella grind. Calves soft and nontender without edema. X-rays: No change in single patellar screw. There has been proximal migration of the superolateral fragment. There is patellofemoral joint space narrowing Assessment: S/P Left quad tend repair with patella ORIF Plan: We discussed his x-rays. He is doing well. The quad tendon repair is holding though the patella fragment seems to have migrated. No further intervention is warranted. Ice and NSAIDs recommedendfor swelling. We'll see him again in 6 months or sooner as needed. * Jairon Gustafson MD - 10/09/2010 1:29 PM EDT Mr. Iglesias is a 70-year-old gentleman who presents for followup six months status post left quad tendon repair. We simultaneously tried to repair his avulsion of a bipartite patella. I saw this patient with LANG Liao. Please see his note for details of the history and examination. Mr. Iglesias has been doing very well. He has been regaining strength and the only pain that he has in his knee is with going downhill and going downstairs. However, he says that he has lot of pain in the opposite side. This is likely due to his arthritis. He is continuing to improve his quad strength and he has no difficulty ambulating. PHYSICAL EXAMINATION: The patient has 4+/5 quad strength on both sides. He has reconstituted nearly a full size of his quads when compared to the other side. He has no extensor lag. He is neurovascularly intact distally. IMAGING: Multiple views of the knee were reviewed today. The patient has had some proximal migration of his previous bipartite patellar fragment. It is clear that the screw has cut out of that fragment and it has migrated. However, his patella is appropriately aligned and there is no evidence of a repeat quad rupture. ASSESSMENT/PLAN: Six-months status post quad tendon repair and attempted fusion of a bipartite patella avulsion. I explained to Mr. Iglesias today about his x-rays and the fact that his bipartite fragment has failed to fuse back to the patella. However, his quad tendon is clearly intact and he is quite strong today. I would not recommend further treatment for a repeat surgery to try and get that fragment to fuse since it was mainly nonarticular and his function is not being affected. I would like to see him back in four months for a repeat examination. If he is doing well at that time, we will see him on an as needed basis. I did explain that if he ever has to proceed with knee arthroplasty that the remaining screw may be a factor, but we would do with it at that time. documented in this encounter Plan of Treatment Upcoming Encounters Date Type Department Care Team (Late st Contact Info) Description 02/02/2024 10:00 AM EDT Hospital Encounter [place] [address] Arrived documented as of this encounter Visit Diagnoses Diagnosis Quadriceps tendon rupture- Primary Sprain and strain of other specified sites of knee and leg documented in this encounter Care Teams Podiatric Aide Relationship Specialty Start Date End Date Marques Martinez MD [address] [place] [address] PCP - General 04/01/10 04/08/11 documented as of this encounter
--- OUTSIDE RECORDS SUMMARY | 2023-11-17 08:09 | XMS_ITS | Encounter Summary ---
Author Organization [facility] [place] [address] Care Team Providers Care Manufacturing Software Engineer Name Role Phone Donny Cooper MD Primary Care Provider [phone] Encounter Details Date Type Department Care Team (Late st Contact Info) Description 07/26/2019 Notes Only Cardiology at [address] [address] Maged Arguelles MD [facility] [place] [address] Social History Tobacco Use Types Packs/Day Years Used Date Smoking Tobacco: Former Smokeless Tobacco: Never Alcohol Use Standard Drinks/Week Comments Yes 3 (1 standard drink = 0.6 oz pur e alcohol) Sex and Gender Information Value Date Recorded Sex Assigned at Not on file Gender Identity Not on file Sexual Orientation Not on file documented as of this encounter Progress Notes * Maged Arguelles MD - 07/26/2019 9:00 AM EDT Mr. Iglesias's remote for his Medtronic biventricular ICD is reviewed. Suboptimal PROMOTIONAL MARKETING AGENT at 84%. Normal device function. Awaiting Holter to assess PVC burden. Maged Arguelles MD [facility]iac Electrophysiology 07/26/2019 9:04 AM documented in this encounter Plan of Treatment Upcoming Encounters Date Type Department Care Team (Late st Contact Info) Description 02/02/2024 10:00 AM EDT Hospital Encounter Non-Invasive [place] [address] Arrived documented as of this encounter Visit Diagnoses Not on filedocumented in this encounter Care Teams Manufacturing Software Engineer Relationship Specialty Start Date End Date Donny Cooper MD [address] [place] [address] PCP - General Family Medicine 02/25/19 documented as of this encounter
--- OUTSIDE RECORDS SUMMARY | 2023-11-17 08:09 | XMS_ITS | Encounter Summary ---
Author Organization [place] [address] Care Team Providers Care Cnc Milling Machinist Name Role Phone Marques Martinez MD Primary Care Provider [phone] Encounter Details Date Type Department Care Team (Late st Contact Info) Description 05/01/2010 3:10 PM EST Office [place] [id number] Jairon Fenton MD [facility] [address] [place] [address] Discharge Disposition: Home Social History Tobacco Use [...] AM EDT Hospital Encounter [place] [address] Arrived documented as of this encounter Visit Diagnoses Not on filedocumented in this encounter Care Teams Cnc Milling Machinist Relationship Specialty Start Date End Date Marques Martinez MD [address] [place] [address] PCP - General 04/01/10 04/08/11 documented as of this encounter
--- OUTSIDE RECORDS SUMMARY | 2023-11-17 08:09 | XMS_ITS | Encounter Summary ---
Author Organization [facility] Address [address] [place] [address] Care Team Providers Care Sas Etl Developer Name Role Phone Unknown, Provider Primary Care Provider [phone] Clem Olvera MD Primary Care Provider [phone] Encounter Details Date Type Department Care Team (Late st Contact Info) Description 11/29/2015 Pre-Procedure Orders Encounter [facility] [address] [place], [place] [id number] Navdeep Hurd MD [address] [place] [address] [address] Social History Tobacco Use Types Packs/Day Years Used Date Smoking Tobacco: Never Assessed Sex and Gender Information Value Date Recorded Sex Assigned at Not on file Gender Identity Not on file Sexual Orientation Not on file documented as of this encounter Plan of Treatment Not on file documented as of this encounter Procedures Procedure Name Priority Date/Time Associated Diagnosis Comments IR VENOGRAM - BILATERAL Routine 12/20/2015 14:10 EDT documented in this encounter Results * IR VENOGRAM - BILATERAL (12/20/2015 14:10 EDT) Anatomical Region Laterality Modality Other 12/20/2015 14:1 0 EDT 12/21/2015 15:51 EDT Narrative 12/21/2015 15:51 EDT Bilateral upper extremity venogram Date: 12/20/2015 Patient: Nabil Streeter. Attending: Dr. Moran Scrrajinder Sleep Technician: Dr. Fantasma Dhillon History/indication: The patient is a 75-year-old male with implanted pacemaker/defibrillator and multiple transvenous leads. Evaluation of the upper extremity and central veins was requested for planning of additional lead placement. Anesthesia: None Access: Via right and left peripheral intravenous catheters Hemostasis: N/A Estimated blood loss: None Fluoroscopy time: 1.5 min Contrast: 53 cc Technique and findings: The procedure was discussed with the patient, who gave verbal consent to proceed. The veins of the right forearm and arm demonstrate normal flow and caliber. There is no evidence of fistulization, stenosis, or occlusion. Specifically, normal flow surrounds a cardiac fibrillator lead entering the proximal right subclavian vein. Mild to moderate venous stenosis involves the left brachiocephalic vein focal to transvenous access of two implanted pacemaker leads. Mild stasis of venous flow is demonstrated distal to this focus of stenosis. The remainder of the left upper extremity veins are normal in caliber. An implanted cardiac catheter/pacemaker control unit projects over the left chest wall. Leads project over the expected location of the right atrium and right ventricle, although the latter is incompletely imaged. An additional epicardial pacer lead projects over the left heart border. There is no evidence of lead discontinuity. The patient tolerated the procedure well. There were no immediate complications. Dr. Dean Bailey was present for and supervised the entire procedure. Dr. Fantasma Dhillon was also present for the procedure. Impression: 1. 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 2. Stasis of venous flow distal to aforementioned left subclavian stenosis. 3. Essentially normal right upper extremity venogram. A cardiac defibrillator lead enters the proximal right subclavian vein. I have personally reviewed the images and the above interpretation and agree with the findings. Procedure Note Ciro Bailey MD - 12/21/2015 Bilateral upper extremity venogram Date: 12/20/2015 Patient: Nabil Streeter Attending: Dr. Dean Bailey Sleep Technician: Dr. Fantasma Dhillon History/indication: The patient is a 75-year-old male with implanted pacemaker/defibrillator and multiple transvenous leads. Evaluation of the upper extremity and central veins was requested for planning of additional lead placement. Anesthesia: None Access: Via right and left peripheral intravenous catheters Hemostasis: N/A Estimated blood loss: None Fluoroscopy time: 1.5 min Contrast: 53 cc Technique and findings: The procedure was discussed with the patient, who gave verbal consent to proceed. The veins of the right forearm and arm demonstrate normal flow and caliber. There is no evidence of fistulization, stenosis, or occlusion. Specifically, normal flow surrounds a cardiac fibrillator lead entering the proximal right subclavian vein. Mild to moderate venous stenosis involves the left brachiocephalic vein focal to transvenous access of two implanted pacemaker leads. Mild stasis of venous flow is demonstrated distal to this focus of stenosis. The remainder of the left upper extremity veins are normal in caliber. An implanted cardiac catheter/pacemaker control unit projects over the left chest wall. Leads project over the expected location of the right atrium and right ventricle, although the latter is incompletely imaged. An additional epicardial pacer lead projects over the left heart border. There is no evidence of lead discontinuity. The patient tolerated the procedure well. There were no immediate complications. Dr. Dean Bailey was present for and supervised the entire procedure. Dr. Fantasma Dhillon was also present for the procedure. Impression: 1. 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 2. Stasis of venous flow distal to aforementioned left subclavian stenosis. 3. Essentially normal right upper extremity venogram. A cardiac defibrillator lead enters the proximal right subclavian vein. I have personally reviewed the images and the above interpretation and agree with the findings. Navdeep Hurd MD G IR ORDERABL ES documented in this encounter Visit Diagnoses Not on filedocumented in this encounter Care Teams Sas Etl Developer Relationship Specialty Start Date End Date Unknown, Provider, PCP - General 12/06/12 12/17/15 Clem Olvera MD [address] [place] [address] PCP - General 12/18/15 documented as of this encounter
--- OUTSIDE RECORDS SUMMARY | 2023-11-17 08:09 | XMS_ITS | Encounter Summary ---
[place] [address] Care Team Providers Care Screener And Blender Name Role Phone Donny Cooper MD Primary Care Provider [phone] Encounter Details Date Type Department Care Team (Latest Contact Info) Description 07/02/2023 10:00 AM EST - 07/02/2023 11:59 PM EST Hospital Encounter [place] [address] Discharge Disposition: Home Social History Tobacco Use [...] AM EDT Hospital Encounter [place] [address] Arrived documented as of this encounter Visit Diagnoses Not on filedocumented in this encounter Care Teams Screener And Blender Relationship Specialty Start Date End Date Donny Cooper MD [address] [place] [address] PCP - General Family Medicine 02/25/19 documented as of this encounter
--- OUTSIDE RECORDS SUMMARY | 2023-11-17 08:09 | XMS_ITS | Encounter Summary ---
Author Organization [facility] Address [address] [place] [address] Care Team Providers Care Photographic Equipment Inspector Name Role Phone Clem Olvera MD Primary Care Provider Encounter Details Date Type Department Care Team (Latest Contact Info) Description 12/20/2015 10:52 EDT - 12/20/2015 23:52 EDT Hospital Encounter [facility] Cardiovascular Unit [address] [place] [address] Navdeep Hurd MD [address] [place] [address] [address] Discharge Disposition: Home or Self Care Social History Tobacco Use Types Packs/Day Years [...] Sign Reading Time Taken Comments Blood Pressure 150/81 12/20/2015 1131 EDT Pulse - - Temperature 36.6 ??C (97.8 ??F) 12/20/2015 1131 EDT Respiratory Rate 20 12/20/2015 1131 EDT Oxygen Saturation 98% 12/20/2015 1131 EDT Inhaled Oxygen Concentration - - Weight 104.3 kg (230 lb) 12/20/2015 1131 EDT Height 175.3 cm (5' 9) 12/20/2015 1131 EDT Body Mass Index 33.97 12/20/2015 1131 EDT documented in this encounter Discharge Diagnoses Diagnosis I87.1 Compression of vein-I87.1[ICD-10-CM] documented in this encounter Discharge Instructions * Discharge Instructions* Theresa Mercado RN - 12/20/2015 13:40 EDT documented in this encounter Medications at Time of Discharge Medication Sig Dispensed Refills Start Date End Date aspirin chewable 81 mg tablet Take 81 mg by mouth daily. atorvastatin (LIPITOR) 40 mg tablet Take 40 mg by mouth daily. carvedilol (COREG) 3.125 mg tablet Take 3.125 mg by mouth 2 times daily with breakfast and dinner. lisinopril (PRINIVIL, ZESTRIL) 2.5 mg tablet Take 2.5 mg by mouth daily. spironolactone (ALDACTONE) 25 mg tablet Take 12.5 mg by mouth daily. tamsulosin (FLOMAX) 0.4 mg capsule Take by mouth daily. documented as of this encounter Discharge Disposition Disposition Code Departure Means Destination Home or Self Care documented in this encounter Progress Notes * Theresa Mercado RN - 12/20/2015 1317 EDT Pt received from CVU to Angio 22 at 13:10 for B/L Venograms. Pt ID verified verbally and via armband. Pt supine on table. B/L venograms performed by Dr. Dhillon. See MD note for procedure details.Pt tolerated procedure well. IV's d/c'd. Pt discharged from angio in stable condition. * Laly eL RN - 12/19/2015 1419 EDT PreCall - spoke with Nabil and discussed that he will not be receiving sedation, so no need to beNPO or have a electric mule driver. However, his will be accompanying him. They [place] to the airport [place] 1000 and then will come here and check-in around 1145. He agrees to have a shower. documented in this encounter Procedure Notes * Fantasma Dhillon MD - 12/20/2015 1356 EDT IR Brief Procedure Note Attending: [employer]: Alejo Pre-op Dx: Arrhythmia, need for pacemaker lead access Post-op Dx: Same Procedure: Bilateral upper extremity venograms Anesthesia: None Access: Bilateral UE peripheral IV Hemostasis: N/A Findings: Evidence of venous stasis distal to pacemaker lead access at left brachiocephalic. Evidence of stenosis at left brachiocephalic access point. EBL: None Fluoro time: 1.5 min Contrast: 53 cc Specimen: none Labs: none Foreign Bodies: none Complications: none Disposition: Stable to recovery Plan: - d/c PIVs - d/c home as able Fantasma Dhillon MD 12/20/2015 13:57 #[id number] documented in this encounter Plan of Treatment Not on file documented as of this encounter Visit Diagnoses Not on filedocumented in this encounter Administered Medications Inactive Administered Medications - up to 3 most recent administrations Medication Order MAR Action Action Date Dose Rate Site sodium chloride 0.9 % (NS) infusion 50 mL/hr, intravenous, CONTINUOUS, Starting on Grisel 12/20/15 at 1200, Until Thu12/21/15 at 0152, Routine, Preprocedure documented in this encounter Historical Medications * This list may reflect changes made after this encounter. Medication Sig Dispensed Refills Start Date End Date aspirin chewable 81 mg tablet Take 81 mg by mouth daily. carvedilol (COREG) 3.125 mg tablet Take 3.125 mg by mouth 2 times daily with breakfast and dinner. tamsulosin (FLOMAX) 0.4 mg capsule Take by mouth daily. spironolactone (ALDACTONE) 25 mg tablet Take 12.5 mg by mouth daily. lisinopril (PRINIVIL, ZESTRIL) 2.5 mg tablet Take 2.5 mg by mouth daily. atorvastatin (LIPITOR) 40 mg tablet Take 40 mg by mouth daily. added in this encounter Active and Recently Administered Medications Times are shown in EDT. Continuous Medication Order 12/18/2015 12/19/2015 12/20/2015 sodium chloride 0.9 % (NS) infusion 50 mL/hr, intravenous, CONTINUOUS, Starting on Grisel 12/20/15 at 1200, Until 12/21/15 at 0152, Routine, Preprocedure 1200 (Canceled Entry - Provider: Batch Job User Admin - Comment: Automatically canceled at discontinue of medication order) documented in this encounter Orders Medications Ordered That Michael ht Not Have Been Administered Count Last Ordered Date First Ordered Date sodium chloride 0.9 % (NS) infusion 1 12/19 documented in this encounter Care Teams Photographic Equipment Inspector Relationship Specialty Start Date End Date Clem Olvera MD [address] [place] [address] PCP - General 12/18/15 documented as of this encounter
--- OUTSIDE RECORDS SUMMARY | 2023-11-17 08:09 | XMS_ITS | Encounter Summary ---
Author Organization [facility] [place] [address] Care Team Providers Care Door Clamp Operator Name Role Phone Donny Cooper MD Primary Care Provider [phone] Encounter Details Date Type Department Care Team (Latest Contact Info) Description 06/25/2021 3:23 PM EST - 06/25/2021 11:59 PM EST Hospital Encounter [place] [address] Alber Seals MD [facility] [place] [address] Cardiomyopathy, primary Discharge Disposition: Home Social History Tobacco Use [...] AM EDT Hospital Encounter [place] [address] Arrived documented as of this encounter Procedures Procedure Name Priority Date/Time Associated Diagnosis Comments ICD INTERROGATION 3 MONTH Routine 06/25/2021 3:24 PM EST Cardiomyopathy, primary documented in this encounter Results * ICD INTERROGATION 3 MONTH (06/25/2021 3:24 PM EST) Anatomical Region Laterality Modality Other Narrative 06/25/2021 3:42 PM EST Cardiac Device Remote Monitoring Report Summary Medtronic Carelink Device: SAW SHARPENER-D Model: VIVA QUAD Battery: 2.95 v, estimated longevity 2 years 6 months Pacing percentage: 90% SAW SHARPENER paced Events: Presenting rhythm: atrial paced/biventricular paced Frequent PVC's Impression Normal device function Follow Up As per schedule - in-clinic and remote ALBER SEALS MD 06/25/21 Alber Seals MD IMPLANTABLE CARDIAC DEVICE documented in this encounter Visit Diagnoses Diagnosis Cardiomyopathy, primary Other primary cardiomyopathies documented in this encounter Care Teams Door Clamp Operator Relationship Specialty Start Date End Date Donny Cooper MD [address] [place] [address] PCP - General Family Medicine 02/25/19 documented as of this encounter
--- OUTSIDE RECORDS SUMMARY | 2023-11-17 08:09 | XMS_ITS | Clinical Summary ---
Author Organization [facility] [place] [address] Care Team Providers Care Sql Report Analyst Name Role Phone Donny Cooper MD Primary Care Provider [phone] Allergies No known active allergies Medications Medication Sig Dispensed Refills Start Date End Date Status atenolol (TENORMIN) 25 mg tablet 25mg, PO, Once daily 06/12/2010 Active lisinopril (PRINIVIL;ZESTRIL) 40 mg tablet 40mg, PO, Once daily 06/12/2010 Active atorvastatin (LIPITOR) 80 mg tablet 80mg, PO, Once daily 06/12/2010 Active Aspirin 81 mg TbEF 325 MG = 1 Tablet(s), PO, Once daily 06/12/2010 Active tamsulosin (FLOMAX) 0.4 mg capsule Take 0.4 mg by mouth daily. Active apixaban (ELIQUIS) 5 mg Tablet Take 5 mg by mouth 2 times daily. Active carvedilol (COREG) 3.125 mg Tablet Take 3.125 mg by mouth daily. Active furosemide (LASIX) 40 mg Tablet Take 40 mg by mouth 2 times daily. Active spironolactone (ALDACTONE) 25 mg Tablet Take 25 mg by mouth daily. Active Active Problems Problem Noted Date Diagnosed Date Patella fracture 04/09/2011 Overview (04/09/2011): SURGERY DATE: 03/31/2010 SURGICAL STAFF: PRINCESS GUSTAFSON MD PROCEDURE: 1. Open reduction internal fixation of left patellar fracture. 2. Repair of left quadriceps tendon rupture. POSTOPERATIVE DIAGNOSIS: Left quad tendon rupture with superolateral patellar avulsion fracture. INSTRUMENTATION USED: Synthes 4.0 cannulated screws x1. HTN (hypertension) Hyperlipidemia Left knee pain Urinary retention Encounters Date Type Department Care Team Description 11/04/2023 10:00 AM EDT - 11/04/2023 11:59 PM EDT Hospital Encounter [place] [phone] Discharge Disposition: Home from Last 3 Months Immunizations Name Administration Dates Next Due Influenza Vaccine, Whole 02/01/2010,03/06/2006,1 Pneumococcal Polysaccharide (Pneumovax 23) 05/04 Social History Tobacco Use Types Packs/Day Years [...] Sign Reading Time Taken Comments Blood Pressure 138/63 10/03/2022 10:10 AM EDT Pulse 78 10/03/2022 10:10 AM EDT Temperature 36.9 ??C (98.4 ??F) 10/09/2010 1 2:58 PM EDT Respiratory Rate - - Oxygen Saturation 97% 10/03/2022 10: 10 AM EDT Inhaled Oxygen Concentration - - Weight 109.8 kg (242 lb 1.6 oz) 023 10:10 AM EDT Height 175.3 cm (5' 9) 10/03/2022 10:1 0 AM EDT Body Mass Index 35.75 10/03/2022 10:10 AM EDT Plan of Treatment Upcoming Encounters Date Type Department Care Team (Late st Contact Info) Description 02/02/2024 10:00 AM EDT Hospital Encounter [place] [phone] Arrived Health Maintenance Due Date Last Done Comments Tdap adult 08/19/1959 Tetanus vaccine 08/19/1959 Zoster vaccine (1 of 2) 1990 Advance Directive 08/19/1995 Pneumoccocal Vaccine: 65+ (2 of 2 - PCV) 05/04/2009 05/04/2008 Covid-19 Vaccine ( - 2022- season) 2023 Influenza (Flu) vaccine (1 o f 1 - Influenza standard series) 01/03/2024 02/01/2010, 03/06/2006, 02/24/2005 Medical Devices Implanted Type Area Heel Seam Rubber Device Identifier Shelf Expiration Date Model / Serial / Lot Mdt : [id number] : [id number] Implanted: (Quantity not on file) Cardiac Resynchronization Therapy - Defibrillator Chest Medtronic - [id number] / [id number] / Procedures Procedure Name Priority Date/Time Associated Diagnosis Comments PRO ICD INTERROGATION REMOTE UP TO 90 DAYS Routine 09/08/2023 5:26 AM EDT from Last 3 Months Results * Cardiac Device Check - Remote (09/08/2023 5:26 AM EDT) Anatomical Region Laterality Modality Other 09/08/2023 5:26 AM EDT Alber Seals MD IMPLANTABLE CARDIAC DEVICE from Last 3 Months Care Teams Sql Report Analyst Relationship Specialty Start Date End Date Donny Cooper MD [address] [place] [address] PCP - General Family Medicine 02/25/19
--- OUTSIDE RECORDS SUMMARY | 2023-11-17 08:09 | XMS_ITS | Encounter Summary ---
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 Procedures IMPLANTABLE CARDIAC DEFIBRILLATOR PROCEDURE Navdeep Hurd MD [address] [place], [place] [address] [address] [place] [address] Referral ID Status Reason Start Date Expiration Date Visits Re quested Visits Authorized [id number] Closed 02/13/2016 1 1 Encounter Details Date Type Department Care Team (Latest Contact Info) Description 02/13/2016 Pre-Procedure Orders Encounter [facility] [address], [place] [id number] Navdeep Hurd MD [address] [facility] [address] [place] [address] ICD (implantable cardioverter-defibril lator) battery depletion (Primary Dx); Pacemaker lead failure, initial encounter; 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 Social History Tobacco Use Types Packs/Day Years Used Date Smoking Tobacco: Former Cigarettes 1 1989 Alcohol Use Standard Drinks/Week Comments Yes 11 (1 standard drink = 0.6 oz pu re alcohol) Sex and Gender Information Value Date Recorded Sex Assigned at Not on file Gender Identity Not on file Sexual Orientation Not on file documented as of this encounter Plan of Treatment Scheduled Orders Name Type Priority Associated Diagnoses Orde r Schedule IMPLANTABLE CARDIAC DEFIBRILLATOR PROCEDURE Electrophysiology Routine ICD (implantable cardioverter-defibril lator) battery depletion Pacemaker lead failure, 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 Accession #: ? [id number] : ? 1940 Referring: Clem Olvera Attending: Gulshan Drummond MD, PhD Fellow: Assisting: Julia Dodge Copies: ATTESTATION: I, Dr. Gulshan Drummond have reviewed and agree with the findings of this report. SUMMARY OF PROCEDURE: - There were no complications. - Successful Lead revision. - Generator change. PROCEDURE INDICATION: Lead failure HISTORY OF PRESENT ILLNESS: ICD system implantation. HISTORY AND INDICATIONS: ??Non-valvular bradycardia. ??Congestive heart failure. PROCEDURE: - Lead revision And Generator Change. ANESTHESIA: Conscious sedation and local anesthesia. PROCEDURE: The risks, benefits, and alternatives to the procedure and sedation were explained and informed consent was obtained. The patient name, date of , surgical site, and procedure were verified prior to the procedure. The patient was brought to the OR in the fasting state. The chest and left chest was prepped and draped in the usual sterile manner. ??Local anesthestic was administered to the left deltopectoral groove. The attending physician was present for the entire procedure. The pocket was opened with an incision through the previous scar. The epicardial left ventricular lead was disconnected and the existing ICD explanted Under fluoroscopic guidance with the patient in Trendelenburg position, the left axilliary vein was entered on 1 occasion, allowing the placement of 1 soft-tipped J-wires to the level of the inferior vena cava. The proximal axillary/subclavian vein was stenosed and I was unable to serially dilate with 5-6-7-8-9 Fr sheaths/dilators therefore over an 0.35 glide wire a Nick MENDOZAW 6F ([facility]) 6 mm-40 mm balloon dilation still could not advance a system therefore 10 mm balloon was used for successful deploymjent of at 9 Fr Safety sheath. Lead implantation. Using a 9F sheath the Medtronic Attain Select II was advanced via a 9F Medtronic Attain Command outer sheath in a telescoping fashion. A Whisper wire was advanced into the coronary sinus. The catheters were advanced into the mid CS over the wire. Venograms were performed in the MOORE and RUSSIAN projections and a suitable mid-lateral LV branch was demonstrated. A Whisper wire was advanced down the branch. A pacing lead was then advanced into this branch to a final position on the mid/basal posteriolateral wall. Excellent parameters were measured and lack of diaphragmatic stimulation was confirmed. The sheaths were slit and peeled away maintaining good lead stability. The lead(s) were tested before and after suturing the lead sleeve(s) to the pre-pectoralis fascia. The leads were connected to a AIRCRAFT PAINTER-D device. Device and Lead detail in table below The epicardial LV lead was capped. Wound closure. The pocket was copiously irrigated with bacitracin solution. The leads were attached to the device and the system was placed in the pocket.The wound was closed in three layers.The deepest layer was continuous vertical mattress using 2-0 Monocryl.The mid layer was continuous horizontal mattress using 3-0 Monocryl.The superficial layer was continuous horizontal mattress using 4-0 Monocryl.The skin was coated with topical skin adhesive. IMPLANTED HARDWARE: Implanted device: Medtronic - Viva Quad XT AIRCRAFT PAINTER-D DF4 - Serial number: [id number] Explanted device: Medtronic - Viva XT AIRCRAFT PAINTER-D DF4 - Serial number: [id number]. LEAD PARAMETERS + + + + + + Lead # ? 1 ? 2 ? 3 ? 4 ? + + + + + + Chamber ? RA ? RV ? LV ? LV ? + + + + + + Date ? 07/19/2002 ?? 07/18/2013 ?? 02/27/2016 ? 07/18/2013 ? implanted ? + + + + + + Model ? St. Esa ? Medtronic ? Medtronic ? Enpath ? information ?? 1488 ? 6947M ? Attain ? Epicardial ? Performa 4298 ? + + + + + + Serial number [id number] ? [id number] ?? [id number] ?? [id number] ? + + + + + + Location ? RA appendage RV apex ? LV lateral ? LV epicardium ? wall ? + + + + + + Capture ? 1V@ 0.5ms ?? 0.8V@ 0.5ms ?? 0.4V@ 0.5ms ? + + + + + + Impedance ? 400Ohms ? 1500Ohms ? 700Ohms ? + + + + + + Sensing ? 2.5mV ? No intrinsic No intrinsic ? value ? value ? + + + + + + Status ? Active ? Active ? Active ? Capped ? + + + + + + STUDY COMPLETION Administered medications: ?? Cefazolin (Ancef, Kefzol) , prior to the procedure for infection prophylaxis. - Fluoroscopy time: 3min. - Isovue Contrast: 50ml. - Patient in-room time: 09:01 AM. - Patient out-of-room time: 11:50 AM. - Estimated blood loss: 30ml. Clinical Trial: ??The patient is not enrolled in a clinical trial._ PLAN: ??See post procedure orders. Bed rest for 3hours. At the completion of the procedure, findings, results, any complications, and treatment plan were communicated to the patient and reinforced after recovery from anesthesia. With the patient's consent, the attending physician communicated findings, results, any complications, and treatment plan to family members and patient support persons who were present at the conclusion of the procedure. POST PROCEDURAL DISPOSITION: Bedded outpatient status is indicated. ?Electronically signed by Gulshan Drummond MD, PhD 05/12/2016 15:31 Procedure Note Gulshan Drummond MD - 05/12/2016 *Cardiology* [address] [place] [address] Lead Revision (Report amended ) Patient: Nabil Iglesias Study Date: 02/27/2016 : 1940 Referring: Clme Olvera Attending: Gulshan Drummond MD, PhD Fellow: Assisting: Julia Dodge Copies: ATTESTATION: I, Dr. Gulshan Drummond have reviewed and agree with the findings of this report. SUMMARY OF PROCEDURE: - There were no complications. - Successful Lead revision. - Generator change. PROCEDURE INDICATION: Lead failure HISTORY OF PRESENT ILLNESS: ICD system implantation. HISTORY AND INDICATIONS: Non-valvular bradycardia. Congestive heart failure. PROCEDURE: - Lead revision And Generator Change. ANESTHESIA: Conscious sedation and local anesthesia. PROCEDURE: The risks, benefits, and alternatives to the procedure and sedation were explained and informed consent was obtained. The patient name, date of , surgical site, and procedure were verified prior to the procedure. The patient was brought to the OR in the fasting state. The chest and left chest was prepped and draped in the usual sterile manner. Local anesthestic was administered to the left deltopectoral groove. The attending physician was present for the entire procedure. The pocket was opened with an incision through the previous scar. The epicardial left ventricular lead was disconnected and the existing ICD explanted Under fluoroscopic guidance with the patient in Trendelenburg position, the left axilliary vein was entered on 1 occasion, allowing the placement of 1 soft-tipped J-wires to the level of the inferior vena cava. The proximal axillary/subclavian vein was stenosed and I was unable to serially dilate with 5-6-7-8-9 Fr sheaths/dilators therefore over an 0.35 glide wire [facility] 6 mm-40 mm balloon dilation still could not advance a system therefore 10 mm balloon was used for successful deploymjent of at 9 Fr Safety sheath. Lead implantation. Using a 9F sheath the Medtronic Attain Select II was advanced via a 9F Medtronic Attain Command outer sheath in a telescoping fashion. A Whisper wire was advanced into the coronary sinus. The catheters were advanced into the mid CS over the wire. Venograms were performed in the MOORE and RUSSIAN projections and a suitable mid-lateral LV branch was demonstrated. A Whisper wire was advanced down the branch. A pacing lead was then advanced into this branch to a final position on the mid/basal posteriolateral wall. Excellent parameters were measured and lack of diaphragmatic stimulation was confirmed. The sheaths were slit and peeled away maintaining good lead stability. The lead(s) were tested before and after suturing the lead sleeve(s) to the pre-pectoralis fascia. The leads were connected to a AIRCRAFT PAINTER-D device. Device and Lead detail in table below The epicardial LV lead was capped. Wound closure. The pocket was copiously irrigated with bacitracin solution. The leads were attached to the device and the system was placed in the pocket.The wound was closed in three layers.The deepest layer was continuous vertical mattress using 2-0 Monocryl.The mid layer was continuous horizontal mattress using 3-0 Monocryl.The superficial layer was continuous horizontal mattress using 4-0 Monocryl.The skin was coated with topical skin adhesive. IMPLANTED HARDWARE: Implanted device: Medtronic - Viva Quad XT AIRCRAFT PAINTER-D DF4 - Serial number: [id number] Explanted device: Medtronic - Viva XT AIRCRAFT PAINTER-D DF4 - Serial number: [id number]. LEAD PARAMETERS + + + + + + Lead # 1 2 3 4 + + + + + + Chamber RA RV LV LV + + + + + + Date 07/19/2002 07/18/2013 02/27/2016 07/18/2013 implanted + + + + + + Model St. Esa Medtronic Medtronic Enpath information [id number] Attain Epicardial Performa 4298 + + + + + + Serial number [id number] + + + + + + Location RA appendage RV apex LV lateral LV epicardium wall + + + + + + Capture 1V@ 0.5ms 0.8V@ 0.5ms 0.4V@ 0.5ms + + + + + + Impedance 400Ohms 1500Ohms 700Ohms + + + + + + Sensing 2.5mV No intrinsic No intrinsic value value + + + + + + Status Active Active Active Capped + + + + + + STUDY COMPLETION Administered medications: Cefazolin (Ancef, Kefzol) , prior to the procedure for infection prophylaxis. - Fluoroscopy time: 3min. - Isovue Contrast: 50ml. - Patient in-room time: 09:01 AM. - Patient out-of-room time: 11:50 AM. - Estimated blood loss: 30ml. Clinical Trial: The patient is not enrolled in a clinical trial._ PLAN: See post procedure orders. Bed rest for 3hours. At the completion of the procedure, findings, results, any complications, and treatment plan were communicated to the patient and reinforced after recovery from anesthesia. With the patient's consent, the attending physician communicated findings, results, any complications, and treatment plan to family members and patient support persons who were present at the conclusion of the procedure. POST PROCEDURAL DISPOSITION: Bedded outpatient status is indicated. 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
--- OUTSIDE RECORDS SUMMARY | 2023-11-17 08:09 | XMS_ITS | Encounter Summary ---
Author Organization [facility] Address [address] [place] [address] Care Team Providers Care Reviewer Sales Name Role Phone Unavailable Primary Care Provider Unavailabl e Encounter Details Date Type Department Care Team (Late st Contact Info) Description 12/02/2012 Results Only [facility] - [facility] [place] [place] [address] [place] [id number] Satinder Edwards MD [address] [place] [id number] Social History Tobacco Use Types Packs/Day Years Used Date Smoking Tobacco: Never Assessed Sex and Gender Information Value Date Recorded Sex Assigned at Not on file Gender Identity Not on file Sexual Orientation Not on file documented as of this encounter Plan of Treatment Not on file documented as of this encounter Procedures Procedure Name Priority Date/Time Associated Diagnosis Comments SURGICAL PATHOLOGY Routine 12/02/2012 16 :51 EDT documented in this encounter Results * SURGICAL PATHOLOGY (12/02/2012 16:51 EDT) Pathology Report: SURGICAL PATHOLOGY REPORT Reports generated via electronic interface contain original data; however they are lacking the format of the original report. Caution should be taken when reading/interpreti ng unformatted reports. Name: ? NABIL IGLESIAS ? Accession #: ? [id number] ? : ? 1940 (Age: 72) ??M ? Collect Date: ? 12/02/2012 ? Location: ? [facility] ? Receive Date: ? 12/02/2012 ? Provider: SATINDER EDWARDS MD Copy to: WILLIAM PARRISH MD ? Final Pathologic Diagnosis: A. COLON, 50 CM, POLYP, BIOPSY: - ??Tubular adenoma (1 piece); no high grade dysplasia. B. RECTUM, POLYP, BIOPSY: - ??Hyperplastic polyp (2 pieces); no adenoma. Document reviewed and electronically signed by: Mitchel Robles MD Report ??Date: 12/06/2012 15:17 By the signature above, the attending physician certifies that he/she has personally conducted a gross and/or microscopic examination of the described specimens and rendered or confirmed the above diagnosis. Specimen(s) Received: A. ??Colon polyp 50 cm B. ??Rectal polyp Clinical History: Screen Gross Description: A. ? Received in formalin labelled with proper patient identification (initials P, F) and 1. colon polyp 50 cm is a 0.3 x 0.3 x 0.2 cm crooks-white firm piece of tissue which is submitted intact as A1. B. ? Received in formalin labelled with proper patient identification (initials P, F) and 2. rectal polyp are two crooks-white firm pieces of tissue which measure 0.3 x 0.3 x 0.2 cm and 0.3 x 0.2 x 0.2 cm. The specimens are submitted intact as B1. Adebayo Sanchez 12/03/2012 08:11 AM End of Report DIVYA BERRY 12/02/2012 16:5 1 EDT 12/02/2012 16:51 EDT Satinder Edwards MD PATHOLOGY ORDERABLE S Performing Organization Address City/State/[facility] Co de Phone Number DIVYA BERRY [address] [place] [address] documented in this encounter Visit Diagnoses Not on filedocumented in this encounter
--- OUTSIDE RECORDS SUMMARY | 2023-11-17 08:09 | XMS_ITS | Encounter Summary ---
[place] [address] Care Team Providers Care Boardinghouse Keeper Name Role Phone Donny Cooper MD Primary Care Provider [phone] Encounter Details Date Type Department Care Team (Late st Contact Info) Description 03/17/2019 Telephone Cardiology at [address] [address] Sheri Quinn LNA Social History Tobacco Use Types Packs/Day Years [...] encounter Miscellaneous Notes * Telephone Encounter - Sheri Mojica LNA - 03/17/2019 11:46 AM EST Medication list reviewed with [facility] list. Please review with patient at next clinic visit. documented in this encounter Plan of Treatment Upcoming Encounters Date Type Department Care Team (Late st Contact Info) Description 02/02/2024 10:00 AM EDT Hospital Encounter Non[place] [address] Arrived documented as of this encounter Visit Diagnoses Not on filedocumented in this encounter Care Teams Boardinghouse Keeper Relationship Specialty Start Date End Date Donny Cooper MD [address] [place] [address] PCP - General Family Medicine 02/25/19 documented as of this encounter
--- OUTSIDE RECORDS SUMMARY | 2023-11-17 08:09 | XMS_ITS | Encounter Summary ---
Author Organization [facility] [place] [address] Care Team Providers Care Internal Review And Audit Compliance Name Role Phone Donny Cooper MD Primary Care Provider [phone] Encounter Details Date Type Department Care Team (Latest Contact Info) Description 10/03/2022 10:00 AM EDT Office Visit Cardiology at [address] [address] Eleno No, PA [facility] [place] [address] Cardiomyopathy, primary; Presence of cardiac resynchronization therapy defibrillator (PATCH SETTER-D); Diaphragmatic stimulation by cardiac pacemaker, initial encounter Social History Tobacco Use Types Packs/Day Years [...] Pulse 78 10/03/2022 10:10 AM EDT Temperature - - Respiratory Rate - - Oxygen Saturation 97% 10/03/2022 10: 10 AM EDT Inhaled Oxygen Concentration - - Weight 109.8 kg (242 lb 1.6 oz) 023 10:10 AM EDT Height 175.3 cm (5' 9) 10/03/2022 10:1 0 AM EDT Body Mass Index 35.75 10/03/2022 10:10 AM EDT documented in this encounter Progress Notes * Eleno No PA - 10/03/2022 10:00 AM EDT Images from the original note were not included. Cardiac Device PATCH SETTER-D Programming Evaluation Nabil Iglesias [id number] 10/03/2022 History: Mr. Iglesias is a pleasant 82 yo male with a history of complete heart block, s/p dual-chamber pacemaker implant remotely in 2002, ischemic cardiomyopathy, s/p upgrade to dual-chamber ICD in 2013 with abandoned RV lead, and upgrade to biventricular device 02/27/2016, who presented today for routine device follow-up. He has noticed recently increased episodes of diaphragmatic stimulation caused by his LV pacing lead. A 12-lead EKG today showed atrial-sensed, biventricular paced rhythm with no significant changes overall; QRS 162 ms. Patient Active Problem List Diagnosis Patella fracture Overview Note: SURGERY DATE: 03/31/2010 SURGICAL STAFF: PRINCESS GUSTAFSON MD PROCEDURE: 1. Open reduction internal fixation of left patellar fracture. 2. Repair of left quadriceps tendon rupture. POSTOPERATIVE DIAGNOSIS: Left quad tendon rupture with superolateral patellar avulsion fracture. INSTRUMENTATION USED: Synthes 4.0 cannulated screws x1. Left knee pain HTN (hypertension) Overview Note: Hyperlipidemia Urinary retention Overview Note: ROS: Constitutional: - fatigue, - fever, - chills Respiratory: - shortness of breath, - cough, - apnea, - wheezing Cardiovascular: - chest pain, - palpitations, - unusual rates Gastrointestinal: - nausea, - vomiting, - abdominal pain Neurological: - lightheadedness, - dizziness, - syncope, - weakness Psychiatric: - anxious Medications: Current Outpatient Medications Medication Sig Dispense Refill apixaban (ELIQUIS) 5 mg Tablet Take 5 [...] 25 mg tablet 25mg, PO, Once daily lisinopril (PRINIVIL;ZESTRIL) 40 mg tablet 40mg, PO, Once daily atorvastatin (LIPITOR) 80 mg tablet 80mg, PO, Once daily Aspirin 81 mg TbEF 325 MG = 1 Tablet(s), PO, Once daily Objective: Vitals: Vitals: 10/03/22 1010 BP: 138/63 BP Location (NBP): Left arm Patient Position: Sitting BP Cuff Sizes: Adult (25-34 cm) Pulse: 78 SpO2: 97% Weight: 109.8 kg (242 lb 1.6 oz) Height: 175.3 cm (5' 9) Physical Exam: General- No acute distress, sitting comfortably in exam room chair HEENT- Head atraumatic, normocephalic Skin- Pocket incision is well healed. No evidence of erosion or need of revision Cardiovascular- S1/S2 regular rate and rhythm. No murmur, rub or gallop Lungs- Clear to auscultation bilaterally Extremities- Pulses equal bilaterally. No edema noted Neuro- A&Ox3 Device Interrogation: Data Diagnostics Tachy Therapy: AT/AF Monitor >171 bpm ---> All Rx OFF VF ON > 188 bpm ----> ATP before charging, 35J x 6 FVT OFF All Rx OFF VT OFF All Rx OFF Pacing Mode: DDD 60/130/120 Presenting EGMs: -BP/-DIGITAL ADVISOR Underlying Rhythm: CHB with no obvious escape VVI 30 Atrial Episodes: None Ventricular Episodes: None Atrial Pacin.4% Ventricular Pacin.3% (Bi-V: 99.5%; VSR: 10%) Thoracic Impedance: OptiVol below impedence threshold HR Histogram: Appropriate Battery and Leads Voltage: N/A Status: 1.8 yrs Magnet Rate: ---- Charge Time: N/A Impedances (ohms) Sensing (mV) Thresholds HV RA RV LV RA RV LV RA RV LV RV=40 SVC=51 399 1, 159 627 2.3 Paced N/A 1.75V @ 0.40ms 0.75V @ 0.40ms 0.75V @ 0.40ms Comments: - Pocket incision is well healed without signs or symptoms of infection - Device is functioning appropriately - Programming changes LV amplitude to 1.25V from 175V LV maximum Adapted amplitude 2.00V from 5.00V LV Pace Polarity LV3 to RV coil from LV1 to LV4 (Bi-V QRS duration comparable, but LV3 to RV coil with superior battery longevity) - Follow up: Remotely and in device clinic. LANG Wiclox 10/03/2022 documented in this encounter Plan of Treatment Upcoming Encounters Date Type Department Care Team (Late st Contact Info) Description 02/02/2024 10:00 AM EDT Hospital Encounter Non-Invasive [place] [phone] Arrived documented as of this encounter Procedures Procedure Name Priority Date/Time Associated Diagnosis Comments EKG 12-LEAD Routine 10/03/2022 11:00 AM EDT Cardiomyopathy, primary Presence of cardiac resynchronization therapy defibrillator (PATCH SETTER-D) Diaphragmatic stimulation by cardiac pacemaker, initial encounter documented in this encounter Results * EKG 12 Lead (10/03/2022 11:00 AM EDT) Ventricular rate 74 BPM MUSE SYSTEM Atrial Rate 74 BPM MUSE SYSTEM P-R Interval 154 ms MUSE SYSTEM QRS Duration 162 ms MUSE SYSTEM Q-T Interval 470 ms MUSE SYSTEM QTC Calculated (Bezet) 521 ms MUSE SYSTEM Calculated P [place] 30 degrees MUSE SYSTEM Calculated R [place] -98 degrees MUSE SYSTEM Calculated T [place] 41 degrees MUSE SYSTEM INTERPRETATION Atrial-sense d ventricular- paced rhythm Biventricula r pacemaker detected Abnormal ECG When compared with ECG of 30-MAR-2010 17:11, Vent. rate has decreased BY ?? 4 BPM Confirmed by MD Ambrose, Sherman ([id number]) on 10/03/2022 11:28:19 AM MUSE SYSTEM 10/03/2022 11:0 0 AM EDT 10/03/2022 11:28 AM EDT Alber Seals MD ECG ORDERABLES MUSE SYSTEM documented in this encounter Visit Diagnoses Diagnosis Cardiomyopathy, primary Other primary cardiomyopathies Presence of cardiac resynchronization therapy defibrillator (PATCH SETTER-D) Diaphragmatic stimulation by cardiac pacemaker, initial encounter documented in this encounter Care Teams Internal Review And Audit Compliance Relationship Specialty Start Date End Date Donny Cooper MD [address] [facility] [address] [place] [address] PCP - General Family Medicine 02/25/19 documented as of this encounter
--- OUTSIDE RECORDS SUMMARY | 2023-11-17 08:09 | XMS_ITS | Encounter Summary ---
[place] [address] Care Team Providers Care Call Center Support Representative Name Role Phone Marques Martinez MD Primary Care Provider [phone] Encounter Details Date Type Department Care Team (Late st Contact Info) Description 10/03/2010 [place] [address] Marina Orosco, JADON Social History Tobacco Use Types Packs/Day Years [...] AM EDT Hospital Encounter Non-Invasive [place] [address] Arrived documented as of this encounter Visit Diagnoses Not on filedocumented in this encounter Care Teams Call Center Support Representative Relationship Specialty Start Date End Date Marques Martinez MD [address] [place] [address] PCP - General 04/01/10 04/08/11 documented as of this encounter
--- OUTSIDE RECORDS SUMMARY | 2023-11-17 08:09 | XMS_ITS | Encounter Summary ---
[place] [address] Care Team Providers Care News Operations Manager Name Role Phone Donny Cooper MD Primary Care Provider [phone] Encounter Details Date Type Department Care Team (Latest Contact Info) Description 01/03/2023 10:00 AM EDT - 01/03/2023 11:59 PM EDT Hospital Encounter [place] [address] Discharge Disposition: Home Social History Tobacco Use [...] AM EDT Hospital Encounter Non[place] [phone] Arrived documented as of this encounter Procedures Procedure Name Priority Date/Time Associated Diagnosis Comments PRO ICD INTERROGATION REMOTE UP TO 90 DAYS Routine 11/20/2022 3:16 AM EDT documented in this encounter Results * Cardiac Device Check - Remote (11/20/2022 3:16 AM EDT) Anatomical Region Laterality Modality Other 11/20/2022 3:16 AM EDT Miriam Zapata MD IMPLANTABLE CARDIAC DEVICE documented in this encounter Visit Diagnoses Not on filedocumented in this encounter Care Teams News Operations Manager Relationship Specialty Start Date End Date Donny Cooper MD [address] [place] [address] PCP - General Family Medicine 02/25/19 documented as of this encounter
--- OUTSIDE RECORDS SUMMARY | 2023-11-17 08:09 | XMS_ITS | Encounter Summary ---
[place] [address] Care Team Providers Care Tomographic Tech Name Role Phone Donny Cooper MD Primary Care Provider [phone] Encounter Details Date Type Department Care Team (Latest Contact Info) Description 11/04/2023 10:00 AM EDT - 11/04/2023 11:59 PM EDT Hospital Encounter Non-Invasive [place] [address] Discharge Disposition: Home Social History Tobacco Use [...] AM EDT Hospital Encounter Non-Invasive [place] [phone] Arrived documented as of this encounter Procedures Procedure Name Priority Date/Time Associated Diagnosis Comments PRO ICD INTERROGATION REMOTE UP TO 90 DAYS Routine 09/08/2023 5:26 AM EDT documented in this encounter Results * Cardiac Device Check - Remote (09/08/2023 5:26 AM EDT) Anatomical Region Laterality Modality Other 09/08/2023 5:26 AM EDT Alber Seals MD IMPLANTABLE CARDIAC DEVICE documented in this encounter Visit Diagnoses Not on filedocumented in this encounter Care Teams Tomographic Tech Relationship Specialty Start Date End Date Donny Cooper MD [address] [place] [address] PCP - General Family Medicine 02/25/19 documented as of this encounter
--- OUTSIDE RECORDS SUMMARY | 2023-11-17 08:09 | XMS_ITS | Encounter Summary ---
Author Organization [facility] Address [address] [place] [address] Care Team Providers Care Veneer Department Manager Name Role Phone Unavailable Primary Care Provider Unavailabl e Encounter Details Date Type Department Care Team (Late st Contact Info) Description 05/06/2001 Results Only [facility] - Maple conversion [address] [place] [address] Hernandez Partida MD [address] [place] [phone] Social History Tobacco Use Types Packs/Day Years Used Date Smoking Tobacco: Never Assessed Sex and Gender Information Value Date Recorded Sex Assigned at Not on file Gender Identity Not on file Sexual Orientation Not on file documented as of this encounter Plan of Treatment Not on file documented as of this encounter Procedures Procedure Name Priority Date/Time Associated Diagnosis Comments SURGICAL PATHOLOGY Routine 05/06/2001 0:00 EST documented in this encounter Results * SURGICAL PATHOLOGY (05/06/2001 0:00 EST) Pathology Report: SURGICAL PATHOLOGY REPORT Reports generated via electronic interface contain original data; however they are lacking the format of the original report. Caution should be taken when reading/interpreting unformatted reports. Name: ? HARRISCHARMAINE ? Accession #: ? [id number] ? : ? 1940 (Age: 60) ??M ? Collect Date: ? 05/06/2001 ? Location: ? [facility] ? Receive Date: ? 05/07/2001 ? Provider: KRISTAL PARTIDA MD Copy to: MALCOLM DOUGLAS MD ? Final Pathologic Diagnosis: A. ?Duodenum, bulb, biopsies: 1. ?Chronic active duodenitis. ??See comment. B. ?Gastroesophageal junction, biopsy: 1. ?Squamous mucosa with reactive epithelial changes, compatible with reflux. 2. ?Adjacent columnar mucosa with chronic active inflammation and reactive epithelial changes. ? -Intestinal metaplasia present. ??See comment. -No dysplasia identified. 3. ?Phyllis stain negative for Helicobacter pylori-like organisms. Comment: ? Sections of duodenal bulb demonstrate chronic active duodenitis with some blunting of the villi. Gastric metaplasia and intramucosal Lynn' s glands are also present, but there is no appreciable increase in intraepithelial lymphocytes. ??The findings are compatible with peptic duodenitis. ??A PAS/alcian blue H+E stain performed on the gastroesophageal junction biopsy confirms the presence of intestinal metaplasia. ??This case, including the phyllis' s stain, was shown at the intradepartmental consultation conference on 05/10/01. ??(Dr. Livingston)/ljyee Document reviewed and electronically signed by: Oralia Livingston MD Report ??Date: 05/11/2001 16:05 By the signature above, the attending physician certifies that he/she has personally conducted a gross and/or microscopic examination of the described specimens and rendered or confirmed the above diagnosis. Specimen(s) Received: A. ?Duodenal bulb (#1) B. ?E-G jct (#2) Clinical History: ? Duodenitis, bile reflux Gross Description: ? Received in Hollande' s fixative labelled Harris and duodenal bx are two irregularly shaped, lobular soft tissue fragments that measure 0.3 x 0.1 x 0.1 cm and 0.3 x 0.3 x 0.2 cm. ??The specimen is submitted entirely in cassette (A). ?? Received in Hollande' s fixative labelled Harris and GE junction is a 0.3 x 0.2 x 0.1 cm, irregularly shaped, slightly frayed soft tissue fragment. ??The specimen is submitted entirely in cassette (B). ??(Naty Caal)/[facility] End of Report [facility] 05/06/2001 05/07/2001 9:2 5 EST Hernandez Partida MD PATHOLOGY ORDERABLES [facility] [address] [place] [address] documented in this encounter Visit Diagnoses Not on filedocumented in this encounter
--- OUTSIDE RECORDS SUMMARY | 2023-11-17 08:09 | XMS_ITS | Encounter Summary ---
[place] [address] Care Team Providers Care Cone Worker Name Role Phone Donny Cooper MD Primary Care Provider [phone] Encounter Details Date Type Department Care Team (Latest Contact Info) Description 10/03/2022 Travel Social History Tobacco Use Types Packs/Day Years [...] AM EDT Hospital Encounter Non-[place]vasive [place] [address] Arrived documented as of this encounter Visit Diagnoses Not on filedocumented in this encounter Care Teams Cone Worker Relationship Specialty Start Date End Date Donny Cooper MD [address] [place] [address] PCP - General Family Medicine 02/25/19 documented as of this encounter
--- OUTSIDE RECORDS SUMMARY | 2023-11-17 08:09 | XMS_ITS | Encounter Summary ---
Author Organization [facility] [place] [address] Care Team Providers Care Adjunct Instructor Of Women'S Studies Name Role Phone Marques Martinez MD Primary Care Provider [phone] Encounter Details Date Type Department Care Team (Late st Contact Info) Description 10/09/2010 11:35 AM EDT - 10/09/2010 11:59 PM EDT Hospital Encounter XRay at [address] [place] [phone] Social History Tobacco Use Types Packs/Day Years [...] Sig Dispensed Refills Start Date End Date tamsulosin (FLOMAX) 0.4 mg capsule Take 0.4 [...] AM EDT Hospital Encounter Non-Invasive Cardiology Lab [facility] [place] [address] Arrived documented as of this encounter Visit Diagnoses Not on filedocumented in this encounter Care Teams Adjunct Instructor Of Women'S Studies Relationship Specialty Start Date End Date Marques Martinez MD [address] [place] [address] PCP - General 04/01/10 04/08/11 documented as of this encounter
--- OUTSIDE RECORDS SUMMARY | 2023-11-17 08:09 | XMS_ITS | Encounter Summary ---
Author Organization [facility] [place] [address] Care Team Providers Care Redrying Machine Operator Name Role Phone Donny Cooper MD Primary Care Provider [phone] Encounter Details Date Type Department Care Team (Latest Contact Info) Description 06/13/2020 12:35 PM EST - 06/13/2020 11:59 PM EST Hospital Encounter Non-[place] [address] Alber Seals MD [facility] [place] [address] Cardiomyopathy, primary Discharge Disposition: Home Social History [...] AM EDT Hospital Encounter Non-[place]vasive [place] [address] Arrived documented as of this encounter Procedures Procedure Name Priority Date/Time Associated Diagnosis Comments ICD INTERROGATION 3 MONTH Routine 06/13/2020 12:36 PM EST Cardiomyopathy, primary documented in this encounter Results * ICD INTERROGATION 3 MONTH (06/13/2020 12:36 PM EST) Anatomical Region Laterality Modality Other Narrative 06/14/2020 10:38 AM EST Cardiac Device Remote Monitoring Report Summary [employer] CareAquicore 06/14/20 Device: HULL MOLDER-D Model: VIVA QUAD Battery: 2.96 v, estimated longevity 3 years, 11 months Pacing percentage: 78% ventricular paced Events: The presenting rhythm is atrial paced with biventricular pacing and frequent ventricular premature contractions No significant arrhythmias Impression Normal device function; suboptimal HULL MOLDER pacing likely secondary to frequent PVCs. Should consider in clinic follow-up for further evaluation Follow Up As per schedule - in-clinic and remote ALBER SEALS MD Alber Seals MD IMPLANTABLE CARDIAC DEVICE documented in this encounter Visit Diagnoses Diagnosis Cardiomyopathy, primary Other primary cardiomyopathies documented in this encounter Care Teams Redrying Machine Operator Relationship Specialty Start Date End Date Donny Cooper MD [address] [place] [address] PCP - General Family Medicine 02/25/19 documented as of this encounter
--- OUTSIDE RECORDS SUMMARY | 2023-11-17 08:09 | XMS_ITS | Encounter Summary ---
Author Organization [facility] Address [address] [place] [address] Care Team Providers Care Environmental Programs Manager Name Role Phone Clem Olvera MD Primary Care Provider [phone] Reason for Referral * (Routine) - Closed Specialty Diagnoses / Procedures Referred By Pedro madera Referred To Contact Beatrice eD La Garza NP [address] [place] [phone] Referral ID Status Reason Start Date Expiration Date V isits Requested Visits Authorized [id number] Closed Specialty Services Required 02/27/2016 1 1 Comments You must contact us if we have not contacted you or you have missed your scheduled appointment. If you have any nursing questions, please don't hesitate to call the Cardiac Arrhythmia Service at [facility] at or , extension [phone]. For any scheduling of appointments, please call [phone] or , extension [phone]. . * (Routine) - Closed Specialty Diagnoses / Procedures Referred By Pedro madera Referred To Contact Beatrice De La Garza NP [address] [phone] Referral ID Status Reason Start Date Expiration Date V isits Requested Visits Authorized [id number] Closed Specialty Services Required 02/27/2016 1 1 Comments You have a pre existing appointment with Dr. Olvera on March 05 at 2:00, please have Dr. Olvera check your incision at that visit. * (Routine) - Closed Specialty Diagnoses / Procedures Referred By Contbecca t Referred To Contact Beatrice De La Garza NP [address] [phone] Referral ID Status Reason Start Date Expiration Date V isits Requested Visits Authorized [id number] Closed Specialty Services Required 02/27/2016 1 1 Comments Your first pacemaker check will be scheduled in three months after implant at your closest chosen clinic location. You will be reminded of this date by mail - Subsequent pacemaker clinics will be done either once a year or twice a year depending on your device and those appointments will be scheduled at your first appointment. - [facility] Cardiology is located at [address] in [place] -Clinics are also held in [facility], and [place], [place] and [facility]. If you live in those areas, we will make arrangements for follow-up appointments in one of those clinics.. Encounter Details Date Type Department Care Team (Late st Contact Info) Description 02/27/2016 6:30 EDT - 02/28/2016 13:39 EDT Hospital Encounter [facility] Cardiac/Telemetry Unit [address] [place] [address] Gulshan Drummond MD PhD [address] [phone] Gulshan Montoya Sa, MD [address] [place] [phone] AICD lead malfunction, subsequent encounter; ICD (implantable cardioverter-defibri llator) battery depletion; Ischemic cardiomyopathy; Pacemaker lead failure, initial encounter; 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 Discharge Disposition: Home or Self Care Social [...] Body Mass Index 34.41 02/27/2016 1356 EDT documented in this encounter Functional Status Functional Status Response [...] No 02/27/2016 documented as of this encounter Discharge Diagnoses Diagnosis Z45.02 Encounter for adjustment and management of automatic implantable cardiac defibrillator-Z45.02[ICD-10-CM] R00.1 Bradycardia, unspecified-R00.1[ICD-10-CM] I50.9 Heart failure, unspecified-I50.9[ICD-10-CM] Z23 Encounter for immunization-Z23[ICD-10-CM] documented in this encounter Discharge Summaries * Beatrice De La GarzaVANDANA - 02/27/2016 1059 EDT Cardiology Discharge Summary Primary Care Provider: Clem Olvera Attending Physician: Gulshan Montoya Sa, * Admit Date: 02/27/2016 Discharge Date: 02/28/16 Disposition: Home or self care Problems and Procedures Admitting Diagnosis: No primary diagnosis found. Final Hospital Diagnosis: iscm Additional Problems Managed in the Hospital There are no hospital problems to display for this patient. Principal Procedure: New LV lead via the CS Date: 02/27/2016 Secondary Procedures: Not applicable Hospital Course 74-year-old man with CAD and ISCM with EF of 20-25% status post silent inferior DE in the early . 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 He had heart failure symptoms that started around May 2013, when he was in [place], [place]. This triggered major cardiac workup including transthoracic and transesophageal echocardiography,nuclear stress test and cardiac catheterization. 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 This was successfully treated with pericardial window surgery in May 2013. Cardiac cath showed proximal left circumflex and right coronary artery occlusion. As the nuclear stress test did not show reversible ischemia, he did not have PCI. He then underwent a device upgrade to a FRAME SAMPLE AND PATTERN SUPERVISOR-D device with biventricular pacing for his EF of 20-25%. By the patient's report, the procedure was done by a surgeon (Dr. Franco) and LV pacing was accomplished with a surgically placed unipolar epicardial electrode. Placement of a coronary sinus/LV lead was not attempted. The initial RV pacing lead was abandoned and as the left subclavian vein could not be passed with a guidewire, Dr. Franco decided to insert the RV/defibrillation lead via the right subclavian vein with tunneling to the left pectoral device pocket. His left ventricular pacing threshold was described as excellent at the time of implantation. On his first remote transmission from his new device the LV pacing threshold was increased to 2.75V at 1 ms with a programmed, (automatically adaptive) amplitude of 5 V at 1 ms. He has been followed in cardiology outreach clinic at [facility] in [place]. Continued high pacing threshold on the epicardial LV lead has caused a very rapid battery depletion.Dr. David Castellanos recommended against lead extraction and reimplant as long as at least one subclavian veinis patent. Recent bilateral venograms showed patent left and right subclavian vein systems. Follow-up echo showed improvement of LVEF to 45% attributable to biventricular pacing. He was then set up for a new LV lead in order to preserve battery life and avoid the need for frequent generator changes. On 02/27/16 he presented for a new LV lead and generator change. He then underwent implantation of a LV lead via the CS. He tolerated the procedure well without incident. The old LV epicardial lead was abandoned. Overnight telemetry showed NSR, post procedure he had one 7 beat run of NSVT that was asymptomatic, no further ectopy noted. CXR and device interrogation show proper lead function and placement. In the morning he felt well with minimal pain. Incision site is well approximated, no bleeding, minimal swelling, minimal ecchymosis no hematoma noted. He will have a check of his incision on March 05 at 2:[address] Olvera and plans to follow up with his [employer] Law Clerk in [place] in 6-8 weeks for which he will arrange once he has arrived in [place]. He has been provided with the implant record and D/C summary from this admission. Allergies and Immunizations No Known Allergies There is no immunization history on file for this patient. Transition of Care Plans Condition at Discharge Good Assessment at Discharge Vital signs: Patient Vitals for the past 12 hrs: BP Heart Rate Resp Temp SpO2 O2 Device 02/28/16 0535 119/47 86 BPM 16 36.2 ??C (97.2 ??F) 96 % None 02/28/16 0059 101/57 85 BPM 16 35.7 ??C (96.3 ??F) 97 % None Discharge Medications: CONTINUE taking these medications Sig aspirin chewable 81 mg tablet 81 mg, oral, DAILY atorvastatin 40 mg tablet Commonly known as: LIPITOR 40 mg, oral, DAILY carvedilol 3.125 mg tablet Commonly known as: COREG 3.125 mg, oral, BID (BREAKFAST/DINNER) lisinopril 2.5 mg tablet Commonly known as: PRINIVIL, ZESTRIL 2.5 mg, oral, DAILY spironolactone 25 mg tablet Commonly known as: ALDACTONE 12.5 mg, oral, DAILY tamsulosin 0.4 mg capsule Commonly known as: FLOMAX oral, DAILY Coumadin Management N/A Non-Cardiac Studies at Time of Discharge none Results Pending at Discharge Test results still pending from this admission None Last Lab Results at Discharge BUN: Lab Results Component Value Date BUN 14 02/28/2016 Creatinine: Lab Results Component Value Date CREATININE 0.65 (L) 02/28/2016 CBC: Lab Results Component Value Date WBC 9.84 02/28/2016 RBC 4.42 02/28/2016 HGB 14.2 02/28/2016 HCT 40.9 02/28/2016 MCV 93 02/28/2016 MCH 32.1 02/28/2016 MCHC 34.7 02/28/2016 PLT 151 02/28/2016 Electrolytes: Lab Results Component Value Date NA 138 02/28/2016 K 4.7 02/28/2016 CL 104 02/28/2016 CO2 25 02/28/2016 No results found for: HGBA1C Discharge Follow Up Appointments Scheduled with [facility] Appointments Outside of [facility] We Will Schedule Studies We Will Schedule Appointments We Recommend but have not been Scheduled Beatrice De La Garza NP 02/27/2016 10:59 Associated attestation - Gulshan Montoya Sa, MD - 02/28/2016 1519 EDT Attending Attestation: I saw and evaluated the patient. I discussed the case with the resident/CASE MANAGEMENT MANAGER/fellow and agree with the findings and plan as documented above. Gulshan bullcok Sa, MD Cardiac Electrophysiology documented in this encounter Discharge Instructions * Appointments* Beatrice De La Garza NP - 02/27/2016 11:[address] Olvera on 03/05/16 at 2:00 as previously scheduled for a routine visit and for a check of your incision. Follow up with Giselle Hill NP at the [facility] in May, you will be notified with the appointment. documented in this encounter Medications at Time [...] documented in this encounter Progress Notes * Lou Alfonso RN - 02/28/2016 4000 EDT Pt awaiting discharge. IV and tele was removed by primary nurse. This RN administered flu shot and provided flu information sheet. AVS and medications reviewed by RN with patient and . AVS statedcoreg was 3.25mg BID, which pt states no, they must have copied it down wrong. I'm not doing that.We've been through this in OR. It makes me pass out. RN suggested checking with team, which pt denied and states I wont take it twice a day. He did agree to review this medication with his wrap checker and plans to remain on his home dosing, which was in the morning. He received dose this am. Ptleft via wheelchair with . * Beatrice Rodriguez - 02/28/2016 1329 EDT Brief visit with patient and as they were being discharged. Patient states he is independent in self care and home management. He feels well supported by friends and neighbors. Patient has Medicare and [facility]. Pharmacy is [facility] in [facility]. No needs identified at time of discharge. will provide transportation. Beatrice Rodriguez RN Case Manager #[id number] documented in this encounter H&P Notes * Navdeep Hurd MD - 02/27/2016 0830 EDT Cardiology Admitting H&P Admit Date: 02/27/2016 Date of Service: 02/27/2016 PCP: Clem Olvera Code Status: Full Code Chief Complaint: FINN, device battery depletion, high pacing threshold on epicardial lead HPI: 74-year-old man with coronary artery disease and ischemic cardiomyopathy status post silent inferior DE in the early . 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 He had heart failure symptoms that started around May 2013, when he was in [place], [place]. This triggered major cardiac workup including transthoracic and transesophageal echocardiography,nuclear stress test and cardiac catheterization. 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 This was successfully treated with pericardial window surgery in May 2013. Cardiac cath showed proximal left circumflex and right coronary artery occlusion. As the nuclear stress test did not show reversible ischemia, he did not have PCI. As his LVEF was 20-25% at this point, his device was upgraded to a FRAME SAMPLE AND PATTERN SUPERVISOR-D device with biventricular pacing. By the patient's report, the procedure was done by a surgeon (Dr. Franco) and LV pacing was accomplished with a surgically placed unipolar epicardial electrode. Placement of a coronary sinus/LVlead was not attempted. The initial RV pacing lead was abandoned and as the left subclavian vein could not be passed with a guidewire, Dr. Franco decided to insert the RV/defibrillation lead via the right subclavian vein with tunneling to the left pectoral device pocket. His left ventricular pacing threshold was described as excellent at the time of implantation. On his first remote transmission from his new device the LV pacing threshold was increased to 2.75V at 1 ms with a programmed, (automatically adaptive) amplitude of 5 V at 1 ms. He has been followed in cardiology outreach clinic at [facility] in [place]. Continued high pacing threshold on the epicardial LV lead has caused a very rapid battery depletion. Dr. David Adams in [place] recommended against lead extraction and reimplant as long as at least one subclavian vein is patent. Recent bilateral venograms showed patent left and right subclavian vein systems. Follow-up echo showed improvement of LVEF to 45% attributable to biventricular pacing. He presents today for an attempt at transvenous CS/LV lead placement as we have reached battery depletion, in the hope to allow LV pacing with a lower threshold than currently, allowing for less frequent ICD device changes. Prior Cardiac History: see above PMH PSH Past Medical History Diagnosis Date ??? AV block, 2nd degree ??? CAD (coronary artery disease) ??? ICD (implantable cardioverter-defibrillator) battery depletion ??? ICD (implantable cardioverter-defibrillator) in place ??? Ischemic cardiomyopathy ??? LBBB (left bundle branch block) Past Surgical History Procedure Laterality Date ??? Appendectomy ??? Back surgery 2003 ??? Patella fracture surgery 2010 left ??? Pericardium surgery 2013 pericardio window ??? Pacemaker insertion 2002 2013 second pacemaker [facility] Social History Family History Social History Substance Use Topics ??? Smoking status: Former Smoker Years: 35.00 Quit date: 1989 ??? Smokeless tobacco: Not on file ??? Alcohol use 6.6 oz/week 6 Cans of beer, 5 Glasses of wine per week , lives with , retired. Spends leong in [place]. Spends the chery in [place], [place]. Quit smoking in 1990. Has 2 alcoholic drinks per day. Father at age 64 from cancer, mother at age 75 with polymyositis. Medications Prescriptions Prior to Admission Medication Sig Dispense Refill Last Dose ??? aspirin chewable 81 mg tablet Take 81 mg by mouth daily. 02/27/2016 0400 ??? atorvastatin (LIPITOR) 40 mg tablet Take 40 mg by mouth daily. 02/26/2016 ??? carvedilol (COREG) 3.125 mg tablet Take 3.125 mg by mouth 2 times daily with breakfast and dinner. 02/27/2016 ??? lisinopril (PRINIVIL, ZESTRIL) 2.5 mg tablet Take 2.5 mg by mouth daily. 02/26/2016 ??? spironolactone (ALDACTONE) 25 mg tablet Take 12.5 mg by mouth daily. 02/26/2016 ??? tamsulosin (FLOMAX) 0.4 mg capsule Take by mouth daily. 02/27/2016 Allergies No Known Allergies Review of Systems: A ten point review of systems was performed. Pertinent positives are listed above in HPI, all others are negative. Objective/Physical Exam: VS: Patient Vitals for the past 8 hrs: BP Resp Temp SpO2 O2 Device 02/27/16 0816 129/63 16 35.9 ??C (96.6 ??F) 100 % None Pain: Patient Vitals for the past 8 hrs: Numeric Pain Level (Scale 1-10) 02/27/16 0823 0 Weight: There is no height or weight on file to calculate BMI. Glucose Readings (last 8 hours): No results for input(s): GLUCOSEFINGE in the last 72 hours. Exam: General appearance: alert, cooperative, no distress Skin: Skin color, temperature, turgor normal. Head: Normocephalic, without obvious abnormality, atraumatic Eyes: conjunctivae/corneas clear. Chest: ICD in place LEFT pectoral area Neck: supple, symmetrical, trachea midline, no carotid bruit and no JVD Lungs: clear to auscultation bilaterally Heart: regular rate and rhythm, S1, S2 normal, no murmur, click, rub or gallop Abdomen: soft, non-tender; bowel sounds normal Neurologic: Grossly normal Mental Status: awake and alert; oriented to person, place, and time Extremities: extremities warm, atraumatic, no cyanosis or edema Pulses: 2+ and symmetric Pressure Ulcer Present on admission? No Data Review: Labs: I have personally reviewed CBC: Lab Results Component Value Date WBC 6.47 02/27/2016 RBC 4.51 02/27/2016 HGB 14.7 02/27/2016 HCT 41.7 02/27/2016 MCV 93 02/27/2016 MCH 32.6 02/27/2016 MCHC 35.3 02/27/2016 PLT 176 02/27/2016 BMP: Lab Results Component Value Date NA 142 02/27/2016 K 4.7 02/27/2016 CL 103 02/27/2016 CO2 27 02/27/2016 BUN 17 02/27/2016 CREATININE 0.69 02/27/2016 Coagulation: Lab Results Component Value Date PROTIME 12.3 02/27/2016 Other Studies: N/A eGFR calculation: GFR, CALCULATED Date Value Ref Range Status 02/27/2016 93 >60 ml/min/1.73m2 Final Comment: eGFR calculated using CKD-EPI equation for non Americans. Multiply eGFR by 1.16 for Americans. Assessment: 73-year-old man with coronary artery disease and ischemic cardiomyopathy status post silent inferior DE in the early . 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 Found to have proximal left circumflex and right coronary artery occlusion, without reversible ischemia. As his LVEF was 20-25% at this point, his device was upgraded to a FRAME SAMPLE AND PATTERN SUPERVISOR-D device with biventricular pacing with a surgically placed unipolar epicardial electrode. Now clinically stable but with somewhat fluctuating, intermittently very high LV pacing threshold. Depleted battery after only 2.5 years,both subclavian veins patent by venogram and EF improved to 45% with biventricular pacing. Now presents for attempt at CS placement of an LV lead during generator change. Plan : BiV ICD generator change and new LV/CS lead placement today. VTE Prophylaxis: Ambulate Discharge Plan: Home or self care tomorrow. Navdeep Hurd MD 02/27/2016 11:12 documented in this encounter Miscellaneous Notes * Plan of Care - Sydnee Gallagher RN - 02/28/2016 1028 EDT Problem: Daily Care Plan Goals Goal: Care Plan Documentation Outcome: Met This Shift 02/28/16 0830 Care Plan Focus Area of Focus Circulatory Status Goal This Shift Pt will maintain adequate tissue perfusion. D: Pt A&Ox3. Independent with ADLs and mobility. Tolerating diet. LCV incision CDI with minimalto scant redness/swelling. Pt states minimal discomfort. Tele: Ventricular pacing with frequent multifocal PVCs. Visit Vitals ??? BP 119/47 (BP Cuff Location: Right arm, Patient Position: Semi fowlers) ??? Temp 36.2 ??C (97.2 ??F) (Tympanic) ??? Resp 16 ??? Ht 175.3 cm (69) ??? Wt (!) 105.7 kg (233 lb) ??? SpO2 96% ??? BMI 34.41 kg/m2 A: Reinforced activity limitations LUE. Assessed telemetry rate/rhythm and PPM site. Informed Beatrice Vásquez of frequent multifocal PVCs. R: Awaiting final chest xray lead placement check; discharge pending. Pt has adequate tissue perfusion. * Plan of Care - Mady Bruno RN - 02/27/2016 2247 EDT Problem: Daily Care Plan Goals Goal: Care Plan Documentation Outcome: Met This Shift 02/27/169 Care Plan Focus Area of Focus Sleep Goal This Shift vss Data: Assumed care at 1900. Pt s/p PPM upgrade. Pt denies pain, SOB. Left chest site CDI with minimal swelling, closed with dermabond. CSMT's intact, Neuro vitals intact. Pt has +1 pitting edema in blilateral LE. Pt Is BIV paced. Action: Assessments complete. PM meds given. Call bautista within reach. Comfort promoted. Response: Pt is sleeping. Will continue to monitor. Mady Bruno RN 02/27/2016 22:40 * Plan of Care - Nneka Stuart RN - 02/27/2016 1607 EDT Problem: Daily Care Plan Goals Goal: Care Plan Documentation Outcome: Ongoing 02/27/16 1212 Care Plan Focus Area of Focus Circulatory Status Goal This Shift Pt will remain hemodynamically stable. Blood pressure 111/60, temperature 35.7 ??C (96.3 ??F), temperature source Tympanic, resp. rate 16,height 175.3 cm (69), weight (!) 105.7 kg (233 lb), SpO2 98 %. Pt admitted to room 514-1 from PACU, s/p ICD modification. Vitals stable, pt denied pain or any other complaints upon arrival to unit. Left chest incision site CDI, dermabond in place, ice applied. Orthostatic vitals evaluated after 3 hours bedrest. Pt able to ambulated steadily without issue. Telemetry shows biV- paced and occasionally A-paced rhythm. Lungs clear, no edema. Pt provided with education on site care, unit routine, goals of care, and POC. Currently sitting up in room with at bedside, denies needs at this time. Will continue to monitor, maintain pt safety and comfort. Addendum: Pt had 7 beat run of Vtach this afternoon, asymptomatic through event. Provider notified.Will continue to monitor. documented in this encounter Plan of Treatment Scheduled Referrals Name Type Priority Associated Diagnoses Order Schedule PROVIDER FOLLOW-UP INSTRUCTIONS Outpatient Referral Routine Ordered: 02/27/2016 PROVIDER FOLLOW-UP INSTRUCTIONS Outpatient Referral Routine Ordered: 02/27/2016 PROVIDER FOLLOW-UP INSTRUCTIONS Outpatient Referral Routine Ordered: 02/27/2016 documented as of this encounter Procedures Procedure Name Priority Date/Time Associated Diagnosis Comments IMPLANT RECORD - SCANNED 03/12/2016 12:43 EST IMPLANT RECORD - SCANNED 03/04/2016 14:06 EDT ECG REPORT - SCANNED 03/04/2016 14:06 EDT ECG REPORT - SCANNED 03/04/2016 14:06 EDT ECG REPORT - SCANNED 03/01/2016 8:58 EDT ECG REPORT - SCANNED 03/01/2016 8:58 EDT CHEST PA AND LATERAL Routine 02/28/2016 11:47 EDT COMPLETE BLOOD COUNT Routine 02/28/2016 5:44 EDT BUN Routine 02/28/2016 5:44 EDT CREATININE Routine 02/28/2016 5:44 EDT ELECTROLYTES Routine 02/28/2016 5:44 EDT PORTABLE CHEST 1 VIEW Routine 02/27/2016 12:46 EDT EKG 12-LEAD Routine 02/27/2016 12:41 EDT PROTIME STAT 02/27/2016 8:45 EDT COMPLETE BLOOD COUNT STAT 02/27/2016 8:45 EDT BUN STAT 02/27/2016 8:45 EDT CREATININE STAT 02/27/2016 8:45 EDT ELECTROLYTES STAT 02/27/2016 8:45 EDT EKG 12-LEAD Routine 02/27/2016 8:08 EDT documented in this encounter Results * IMPLANT RECORD - SCANNED (03/12/2016 12:43 EST) 03/12/2016 12:4 3 EST Scan 2 Associate Dean [employer] PROCEDURE/MINOR JUDD GICAL ORDERABLES * ECG REPORT - SCANNED (03/04/2016 14:06 EDT) 03/04/2016 14:0 6 EDT Scan 2 Associate [employer] Of [employer] PROCEDURE/MINOR JUDD GICAL ORDERABLES * ECG REPORT - SCANNED (03/04/2016 14:06 EDT) 03/04/2016 14:0 6 EDT Scan 2 Associate Dean Of [employer] PROCEDURE/MINOR JUDD GICAL ORDERABLES * IMPLANT RECORD - SCANNED (03/04/2016 14:06 EDT) 03/04/2016 14:0 6 EDT Scan 2 Associate Dean Of [employer] PROCEDURE/MINOR JUDD GICAL ORDERABLES * ECG REPORT - SCANNED (03/01/2016 8:58 EDT) 03/01/2016 8:58 EDT Scan 2 Associate [employer] PROCEDURE/MINOR JUDD GICAL ORDERABLES * ECG REPORT - SCANNED (03/01/2016 8:58 EDT) 03/01/2016 8:58 EDT Scan 2 Associate Dean Of [employer] PROCEDURE/MINOR JUDD GICAL ORDERABLES * CHEST PA AND LATERAL (02/28/2016 11:47 EDT) Anatomical Region Laterality Modality Other 02/28/2016 11:4 7 EDT 02/28/2016 13:41 EDT Narrative 02/28/2016 13:41 EDT CHEST PA AND LATERAL ??02/28/2016 11:47 AM Signs and Symptoms/Comments: ?? CARDIAC PACEMAKER IMPRESSION: 1. ??Right atrial lead. 2. ??Right ventricular implantable cardiac defibrillator as well as a right ventricular pacing wire. 3. ??Left ventricular pacing wire via of the coronary vein COMPARISON: 23 hours prior FINDINGS: There is a battery pack projected over the left anterior chest wall from this one lead extends to the right ventricular implantable cardiac defibrillator with a ground in the superior vena cava. An additional lead extends from the battery pack to the anterior portion of the right atrium. There is an additional lead from the battery pack that extends in a transvenous course toward the apex of the RV. There is a thinner wire extending from the battery pack that follows a course the coronary sinus for left-sided pacing. No pneumothorax identified. The overall cardiac outline remains enlarged but unchanged in the recent interval no pulmonary edema identified. No pleural effusion. ?? Procedure Note Ulices Read MD - 02/28/2016 CHEST PA AND LATERAL 02/28/2016 11:47 AM Signs and Symptoms/Comments: CARDIAC PACEMAKER IMPRESSION: 1. Right atrial lead. 2. Right ventricular implantable cardiac defibrillator as well as a right ventricular pacing wire. 3. Left ventricular pacing wire via of the coronary vein COMPARISON: 23 hours prior FINDINGS: There is a battery pack projected over the left anterior chest wall from this one lead extends to the right ventricular implantable cardiac defibrillator with a ground in the superior vena cava. An additional lead extends from the battery pack to the anterior portion of the right atrium. There is an additional lead from the battery pack that extends in a transvenous course toward the apex of the RV. There is a thinner wire extending from the battery pack that follows a course the coronary sinus for left-sided pacing. No pneumothorax identified. The overall cardiac outline remains enlarged but unchanged in the recent interval no pulmonary edema identified. No pleural effusion. Gulshan Drummond MD PhD IMG DI AGNOSTIC IMAGING ORDERABLES * HEMAGRAM (02/28/2016 5:44 EDT) [facility] WBC 9.84 4.0 - 10.4 K/cmm 02/28/2016 6:26 EDT [facility] RBC 4.42 4.36 - 5.78 M/cmm 02/28/2016 6:26 T [facility] Hemoglobin 14.2 13.8 - 17.3 gm/dl 02/28/2016 6:26 [facility] HCT 40.9 39.5 - 50.2 % 02/28/2016 6:26 [facility] MCV 93 81 - 95 fl 02/28/2016 6:26 [facility] MCH 32.1 27.6 - 33.0 pg 02/28/2016 6:26 [facility] MCHC 34.7 32.8 - 36.4 gm/dl 02/28/2016 6:26 [facility] RDW-CV 13.1 11.8 - 14.1 % 02/28/2016 6:26 [facility] RDW-SD 44.6 36.5 - 45.9 fl 02/28/2016 6:26 [facility] PLT 151 141 - 377 K/cmm 02/28/2016 6:26 [facility] MPV 11.2 9.5 - 12.7 fl 02/28/2016 6:26 [facility] Blood specimen (specimen) BLOOD SPECIMEN / Unknown 02/28/2016 5:44 EDT 02/28/2016 6:13 EDT Beatrice De La Garza NP HEMATOLOGY & PF4 ORDERABLES [facility] [address] [place] [address] * (ABNORMAL) CREATININE (02/28/2016 5:44 EDT) Creatinine 0.65(L) 0.66 - 1.25 mg/dl 02/28/2016 6:48 EDT [facility] GFR, Calculated 95 >60 ml/min/1.7 3m2 02/28/2016 6:48 EDT [facility] Comment: eGFR calculated using CKD-EPI equation for non Americans. Multiply eGFR by 1.16 for Americans. Blood specimen (specimen) BLOOD SPECIMEN / Unknown 02/28/2016 5:44 EDT 02/28/2016 6:13 EDT Beatrice De La Garza NP CHEMISTRY & B LOOD GAS ORDERABLES Performing Organization Address [facility]/ZIP Co de Phone Number [facility] [address] [place] [address] * BUN (02/28/2016 5:44 EDT) BUN 14 10 - 26 mg/dl 02/28/2016 6:48 EDT [facility] Blood specimen (specimen) BLOOD SPECIMEN / Unknown 02/28/2016 5:44 EDT 02/28/2016 6:13 EDT Beatrice De La Garza CASE MANAGEMENT MANAGER CHEMISTRY & B LOOD GAS ORDERABLES Performing Organization Address [facility] Co de Phone Number [facility] [address] [place] [address] * ELECTROLYTES (02/28/2016 5:44 EDT) Sodium 138 136 - 145 mEq/L 02/28/2016 6:48 EDT [facility] Potassium 4.7 3.5 - 5.0 mEq/L 02/28/2016 6:48 EDT [facility] Chloride 104 96 - 110 mEq/L 02/28/2016 6:48 EDT [facility] CO2 25 22 - 32 mEq/L 02/28/2016 6:48 EDT [facility] Comment:Note new reference r hong 02/19/16 Blood specimen (specimen) BLOOD SPECIMEN / Unknown 02/28/2016 5:44 EDT 02/28/2016 6:13 EDT Beatrice De La Garza NP CHEMISTRY & B LOOD GAS ORDERABLES [facility] [address] [place] [address] * PORTABLE CHEST 1 VIEW (02/27/2016 12:46 EDT) Anatomical Region Laterality Modality Other 02/27/2016 12:4 6 EDT 02/27/2016 13:02 EDT Narrative 02/27/2016 13:02 EDT PORTABLE CHEST 1 VIEW ??02/27/2016 12:46 PM Clinical History/Comments: CARDIAC PACEMAKER Comparison: None. Findings: AP portable upright view of the chest shows multi lead pacing device . No pneumothorax. Lungs clear. Heart and mediastinal contours within normal limits for technique. Procedure Note Ronal Mathews MD - 02/27/2016 PORTABLE CHEST 1 VIEW 02/27/2016 12:46 PM Clinical History/Comments: CARDIAC PACEMAKER Comparison: None. Findings: AP portable upright view of the chest shows multi lead pacing device . No pneumothorax. Lungs clear. Heart and mediastinal contours within normal limits for technique. Gulshan Drummond MD PhD IMG DI AGNOSTIC IMAGING ORDERABLES * EKG 12-LEAD (02/27/2016 12:41 EDT) 02/27/2016 12:4 1 EDT Narrative [facility] EKG - 02/28/2016 8:57 EDT ? [facility] ? Test Date: ?2016-02-27 Pat Name: ? NABIL IGLESIAS ? Department: ?? H[facility] 5 ? Room: ? MW514 Gender: ? M ?Watch Repair Technician: ?? [id number] : ?1940 ? Requested By: KAIN REED L Order Number: [id number] ? Reading MD: ?? BRAYAN CUENCA MD ? Measurements Intervals ?[place] ? Rate: ? 63 ? P: ?15 WY: ? 159 ?QRS: ?234 QRSD: ? 156 ?T: ?15 QT: ? 479 ? QTc: ?493 ? Interpretive Statements ELECTRONIC VENTRICULAR PACEMAKER Compared to ECG 02/27/2016 08:10:34 No significant changes I reviewed the tracing and have either agreed or edited the findings in this report. Electronically Signed On 02-28-16 08:57:02 EDT by BRAYAN CUENCA MD. Procedure Note Brayan Cuenca MD - 02/28/2016 [facility] Test Date: 2016-02-27 Pat Name: NABIL IGLESIAS Department: [place] [address] Room: [facility] Gender: M Watch Repair Technician: [id number] : 1940 Requested By: KAIN Gallagher Order Number: [id number] Reading MD: BRAYAN CUENCA MD Measurements Intervals [place] Rate: 63 P: 15 WY: 159 QRS: 234 QRSD: 156 T: 15 QT: 479 QTc: 493 Interpretive Statements ELECTRONIC VENTRICULAR PACEMAKER Compared to ECG 02/27/2016 08:10:34 No significant changes I reviewed the tracing and have either agreed or edited the findings inthis report. Electronically Signed On 02-28-16 08:57:02 EDT by BRAYAN BEEBE. Gulshan Drummond MD PhD CARDIA C ECG ORDERABLES [facility] EKG * PROTIME (02/27/2016 8:45 EDT) Pro Time 12.3 10.3 - 13.1 secs 02/27/2016 9:10 EDT [facility] Comment: New prothrombin t josue range effective 01/29/16 I.N.R. 1.1 0.9 - 1.1 Ratio 02/27/2016 9:10 EDT [facility] Comment: Moderate Intensity Coumadin INR = 2.0-3.0 Adjustments in anticoagulant therapy dose should be based upon the INR and NOT the Pro Time. Blood specimen (specimen) BLOOD SPECIMEN / Unknown 02/27/2016 8:45 EDT 02/27/2016 8:54 EDT Gulshan Drummond MD PhD HEMATO LOGY & PF4 ORDERABLES [facility] [address] [place] [address] * HEMAGRAM (02/27/2016 8:45 EDT) WBC 6.47 4.0 - 10.4 K/cmm 02/27/2016 8:57 EDT [facility] RBC 4.51 4.36 - 5.78 M/cmm 02/27/2016 8:57 EDT [facility] Hemoglobin 14.7 13.8 - 17.3 gm/dl 02/27/2016 8:57 EDT [facility] HCT 41.7 39.5 - 50.2 % 02/27/2016 8:57 EDT [facility] MCV 93 81 - 95 fl 02/27/2016 8:57 EDT [facility] MCH 32.6 27.6 - 33.0 pg 02/27/2016 8:57 EDT [facility] MCHC 35.3 32.8 - 36.4 gm/dl 02/27/2016 8:57 T [facility] RDW-CV 13.1 11.8 - 14.1 % 02/27/2016 8:57 EDT [facility] RDW-SD 44.0 36.5 - 45.9 fl 02/27/2016 8:57 EDT [facility] PLT 176 141 - 377 K/cmm 02/27/2016 8:57 EDT [facility] MPV 10.7 9.5 - 12.7 fl 02/27/2016 8:57 EDT [facility] Blood specimen (specimen) BLOOD SPECIMEN / Unknown 02/27/2016 8:45 EDT 02/27/2016 8:54 EDT Gulshan Drummond MD PhD HEMATO LOGY & PF4 ORDERABLES [facility] [address] [place] [address] * ELECTROLYTES (02/27/2016 8:45 EDT) Sodium 142 136 - 145 mEq/L 02/27/2016 9:13 EDT [facility] Potassium 4.7 3.5 - 5.0 mEq/L 02/27/2016 9:13 EDT [facility] Chloride 103 96 - 110 mEq/L 02/27/2016 9:13 EDT [facility] CO2 27 22 - 32 mEq/L 02/27/2016 9:13 EDT [facility] Comment:Note new reference r hong 02/19/16 Blood specimen (specimen) BLOOD SPECIMEN / Unknown 02/27/2016 8:45 EDT 02/27/2016 8:54 EDT Gulshan Drummond MD PhD CHEMIS TRY & BLOOD GAS ORDERABLES Performing Organization Address [facility] de Phone Number [facility] [address] [place] [address] * CREATININE (02/27/2016 8:45 EDT) Creatinine 0.69 0.66 - 1.25 mg/dl 02/27/2016 9:13 EDT [facility] GFR, Calculated 93 >60 ml/min/1.7 3m2 02/27/2016 9:13 EDT [facility] Comment: eGFR calculated using CKD-EPI equation for non Americans. Multiply eGFR by 1.16 for Americans. Blood specimen (specimen) BLOOD SPECIMEN / Unknown 02/27/2016 8:45 EDT 02/27/2016 8:54 EDT Gulshan Drummond MD PhD CHEMIS TRY & BLOOD GAS ORDERABLES Performing Organization Address City/[facility] Co de Phone Number [facility] [address] [place] [address] * BUN (02/27/2016 8:45 EDT) BUN 17 10 - 26 mg/dl 02/27/2016 9:13 EDT [facility] Blood specimen (specimen) BLOOD SPECIMEN / Unknown 02/27/2016 8:45 EDT 02/27/2016 8:54 EDT Gulshan Drummond MD PhD CHEMIS TRY & BLOOD GAS ORDERABLES [facility] [address] [place] [address] * EKG 12-LEAD (02/27/2016 8:08 EDT) 02/27/2016 8:08 EDT Narrative [facility] EKG - 02/28/2016 9:01 EDT ? [facility] ? Test Date: ?2016-02-27 Pat Name: ? NABIL IGLESIAS ? Department: ?? [facility] ? Room: ? [id number] Gender: ? M ?Watch Repair Technician: ?? [id number] : ?1940 ? Requested By: MARCIA Boo Order Number: [id number] ? Julia WRIGHT: ?? BRAYAN CUENCA MD ? Measurements Intervals ?[place] ? Rate: ? 69 ? P: ?147 WY: ? 134 ?QRS: ?-67 QRSD: ? 160 ?T: ?-59 QT: ? 434 ? QTc: ?467 ? Interpretive Statements ELECTRONIC ATRIAL PACEMAKER ELECTRONIC VENTRICULAR PACEMAKER Compared to ECG 02/27/2016 08:08:46 No significant changes I reviewed the tracing and have either agreed or edited the findings in this report. Electronically Signed On 02-28-16 09:01:04 EDT by BRAYAN CUENCA MD. Procedure Note Brayan Cuenca MD - 02/28/2016 [facility] Test Date: 2016-02-27 Pat Name: NABIL IGLESIAS Department: [facility] Room: [id number] Gender: M Watch Repair Technician: [id number] : 1940 Requested By: MARCIA Boo Order Number: [id number] Reading MD: BRAYAN CUENCA MD Measurements Intervals [place] Rate: 69 P: 147 WY: 134 QRS: -67 QRSD: 160 T: -59 QT: 434 QTc: 467 Interpretive Statements ELECTRONIC ATRIAL PACEMAKER ELECTRONIC VENTRICULAR PACEMAKER Compared to ECG 02/27/2016 08:08:46 No significant changes I reviewed the tracing and have either agreed or edited the findings inthis report. Electronically Signed On 02-28-16 09:01:04 EDT by BRAYAN BEEBE. 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 Mechanical complication due to cardiac pacemaker (electrode) ICD (implantable cardioverter-defibrillator) battery depletion Fitting and adjustment of automatic implantable cardiac defibrillator 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 documented in this encounter Administered Medications Inactive Administered Medications - up to 3 most recent administrations Medication Order MAR Action Action Date Dose Rate Site acetaminophen (TYLENOL) tablet 650 mg 650 mg, oral, EVERY 4 HOURS PRN, Starting on Thu02/27/16 at 1550, Until Grisel 02/28/16 at 1540, Pain, Routine Given 02/27/2016 18:58 EDT 650 mg aspirin chewable tablet 81 mg 81 mg, oral, DAILY, First dose on Thu02/27/16 at 1245, Until Discontinued, Routine Given 02/28/2016 9:22 EDT 81 mg atorvastatin (LIPITOR) tablet 40 mg 40 mg, oral, AT BEDTIME, First dose on Thu02/27/16 at 2100, Until Discontinued, Routine Given 02/27/2016 21:02 EDT 40 mg bacitracin injection topical, PRN, Starting on Thu02/27/16 at 1122, Until Thu02/27/16 at 1122, Routine Given 02/27/2016 11:22 EDT 50,000 Units Chest carvedilol (COREG) tablet 3.125 mg 3.125 mg, oral, 2 TIMES DAILY WITH BREAKFAST & DINNER, First dose on Thu02/27/16 at 1700, Until Discontinued, Routine Given 02/28/2016 9:22 EDT 3.125 mg ceFAZolin (ANCEF) injection intravenous, PRN, Starting on Thu02/27/16 at 0919, Until Thu02/27/16 at 0919, Routine Given 02/27/2016 9:19 EDT 2 g fentaNYL citrate (PF) 50 mcg/mL injection intravenous, PRN, Starting on Thu02/27/16 at 0919, Until Thu02/27/16 at 1058, Routine Given 02/27/2016 10:58 EDT 25 mcg Given 02/27/2016 10:48 EDT 25 mcg Given 02/27/2016 10:08 EDT 25 mcg lisinopril (PRINIVIL, ZESTRIL) tablet 2.5 mg 2.5 mg, oral, DAILY, First dose on Thu02/27/16 at 1245, Until Discontinued, Routine Given 02/27/2016 21:01 EDT 2.5 mg midazolam (PF) (VERSED) 1 mg/mL injection intravenous, PRN, Starting on Thu02/27/16 at 0919, Until Thu02/27/16 at 1115, Routine Given 02/27/2016 11:15 EDT 1 mg Given 02/27/2016 10:59 EDT 1 mg Given 02/27/2016 10:48 EDT 1 mg sodium chloride 0.9 % (NS) infusion intravenous, FA IP EQF CONTINUOUS PRN FOR ONE STEP MEDS, Starting on Thu02/27/16 at 1048, Until Thu02/27/16 at 1048, Routine New Bag 02/27/2016 10:48 EDT 75 mL/hr 75 mL/h r spironolactone (ALDACTONE) tablet 12.5 mg 12.5 mg, oral, DAILY, First dose on Thu02/27/16 at 1245, Until Discontinued, Routine Given 02/27/2016 21:03 EDT 12.5 mg tamsulosin (FLOMAX) capsule 0.4 mg 0.4 mg, oral, DAILY, First dose on Thu02/27/16 at 1245, Until Discontinued, Routine Given 02/28/2016 9:22 EDT 0.4 mg documented in this encounter Active and Recently Administered Medications Times are shown in EDT. Scheduled Medication Order 02/26/2016 02/27/2016 02/28/2016 aspirin chewable tablet 81 mg 81 mg, oral, DAILY, First dose on Thu02/27/16 at 1245, Until Discontinued, Routine 1306 (Not Given - Provider: Nneka Stuart RN - Reason: Other - Comment: pt already took CLAIM ANALYST, takes other meds at HS) 921 (Given - Provider: Sydnee Gallagher RN) atorvastatin (LIPITOR) tablet 40 mg 40 mg, oral, AT BEDTIME, First dose on Thu02/27/16 at 2100, Until Discontinued, Routine 210 (Given - Provider: Mady Bruno RN) carvedilol (COREG) tablet 3.125 mg 3.125 mg, oral, 2 TIMES DAILY WITH BREAKFAST & DINNER, First dose on Thu02/27/16 at 1700, Until Discontinued, Routine 1614 (Not Given - Provider: Nneka Stuart RN - Reason: Patient/family refused - Comment: states i only take it once in the morning at home) 921 (Given - Provider: Sydnee Gallagher RN) lisinopril (PRINIVIL, ZESTRIL) tablet 2.5 mg 2.5 mg, oral, DAILY, First dose on Thu02/27/16 at 1245, Until Discontinued, Routine 1306 (Not Given - Provider: Nneka Stuart RN - Reason: Other - Comment: pt already took CLAIM ANALYST, takes other meds at HS)2100 (Given - Provider: Mady Bruno RN) spironolactone (ALDACTONE) tablet 12.5 mg 12.5 mg, oral, DAILY, First dose on Thu02/27/16 at 1245, Until Discontinued, Routine 1306 (Not Given - Provider: Nneka Stuart RN - Reason: Other - Comment: pt already took CLAIM ANALYST, takes other meds at HS)2102 (Given - Provider: Mady Bruno RN) tamsulosin (FLOMAX) capsule 0.4 mg 0.4 mg, oral, DAILY, First dose on Thu02/27/16 at 1245, Until Discontinued, Routine 1306 (Not Given - Provider: Nneka Stuart RN - Reason: Other - Comment: pt already took CLAIM ANALYST, takes other meds at HS) 921 (Given - Provider: Sydnee Gallagher RN) PRN Medication Order 02/26/2016 02/27/2016 02/28/2016 acetaminophen (TYLENOL) tablet 650 mg 650 mg, oral, EVERY 4 HOURS PRN, Starting on Thu02/27/16 at 1550, Until Grisel 02/28/16 at 1540, Pain, Routine 1858 (Given - Provider: Ronna Stuart, JADON) bacitracin injection (COMPLETED) topical, PRN, Starting on Thu02/27/16 at 1122, Until Thu02/27/16 at 1122, Routine 1122 (Given - Provider: Jose Raul Drummond MD - Comment: Pocket flush) ceFAZolin (ANCEF) injection (COMPLETED) intravenous, PRN, Starting on Thu02/27/16 at 0919, Until Thu02/27/16 at 0919, Routine 0919 (Given - Provider: Ada Onofre RN) fentaNYL citrate (PF) 50 mcg/mL injection (COMPLETED) intravenous, PRN, Starting on Thu02/27/16 at 0919, Until Thu02/27/16 at 1058, Routine 09 (Given - Provider: Ada Onofre RN)0928 (Given - Provider: Reina Onofre RN)0954 (Given - Provider: Reina Onofre RN)1008 (Given - Provider: Reina Onofre RN)1048 (Given - Provider: Reina Onofre RN)1058 (Given - Provider: Reina Onofre RN) midazolam (PF) (VERSED) 1 mg/mL injection (COMPLETED) intravenous, PRN, Starting on Thu02/27/16 at 0919, Until Thu02/27/16 at 1115, Routine 09 (Given - Provider: Ada Onofre RN)0928 (Given - Provider: Reina Onofre RN)0939 (Given - Provider: Reina Onofre RN)0954 (Given - Provider: Reina Onofre RN)1008 (Given - Provider: Reina Onofre RN)1048 (Given - Provider: Reina Onofre RN)1059 (Given - Provider: Reina Onofre RN)1115 (Given - Provider: Reina Onofre RN) sodium chloride 0.9 % (NS) infusion (COMPLETED) intravenous, FA IP EQF CONTINUOUS PRN FOR ONE STEP MEDS, Starting on Thu02/27/16 at 1048, Until Thu02/27/16 at 1048, Routine 1048 (New Bag - Provider: Reina Onofre RN) documented in this encounter Orders Nursing Count Last Ordered Date First Orde red Date ACTIVITY INSTRUCTIONS 1 02/27/2016 CONTRAINDICATION TO ANTICOAG ULATION THERAPY 1 02/27/2016 WOUND CARE INSTRUCTIONS 2 02/27/2016 Admission Count Last Ordered Date First Orde red Date STATUS: OUTPATIENT MEDICAL OP BED/SERVICES 1 02/27/2016 Transfer Count Last Ordered Date First Orde red Date NOTIFY PPS OF DISCHARGE COMPLETE 1 02/28/20 16 CHANGE ATTENDING TO: 1 02/27/2016 PPS NOTIFICATION OF PATIENT ARRIVAL ON UNIT 1 02/27/2016 Discharge Count Last Ordered Date First Orde red Date DISCHARGE PATIENT 1 02/28/2016 Legal Count Last Ordered Date First Orde red Date MISCELLANEOUS DISCHARGE INSTRUCTIONS 1 02/02 documented in this encounter Care Teams Environmental Programs Manager Relationship Specialty Start Date End Date Clem Olvera MD [address] [place] [id number] PCP - General 12/18/15 documented as of this encounter
--- OUTSIDE RECORDS SUMMARY | 2023-11-17 08:09 | XMS_ITS | Encounter Summary ---
Author Organization [facility] [place] [address] Care Team Providers Care Golf Club Head Inspector Name Role Phone Marques Martinez MD Primary Care Provider Encounter Details Date Type Department Care Team (Late st Contact Info) Description 09/11/2010 Orders [place] [phone] Jairon Fenton MD [facility] [place] [address] Fracture of patella, left, closed (Primary Dx) Social History Tobacco Use Types [...] AM EDT Hospital Encounter [place] [phone] Arrived documented as of this encounter Visit Diagnoses Diagnosis Fracture of patella, left, closed- Primary Closed fracture of patella documented in this encounter Care Teams Golf Club Head Inspector Relationship Specialty Start Date End Date Marques Martinez MD [address] [place] [address] PCP - General 04/01/10 04/08/11 documented as of this encounter
--- OUTSIDE RECORDS SUMMARY | 2023-11-17 08:09 | XMS_ITS | Encounter Summary ---
Author Organization [facility] [place] [address] Care Team Providers Care Freelance Displayer Name Role Phone Donny Cooper MD Primary Care Provider [phone] Encounter Details Date Type Department Care Team (Latest Contact Info) Description 12/18/2020 11:57 AM EDT - 12/18/2020 11:59 PM EDT Hospital Encounter Non-Invasive Cardiology Lab [facility] [place] [address] Maged Arguelles MD [facility] [place] [address] Cardiomyopathy, primary Discharge Disposition: Home Social History [...] AM EDT Hospital Encounter Non-[place] [address] Arrived documented as of this encounter Procedures Procedure Name Priority Date/Time Associated Diagnosis Comments ICD INTERROGATION 3 MONTH Routine 12/18/2020 12:00 PM EDT Cardiomyopathy, primary documented in this encounter Results * ICD INTERROGATION 3 MONTH (12/18/2020 12:00 PM EDT) Anatomical Region Laterality Modality Other Narrative 12/23/2020 11:08 PM EDT MDT DREDGE PUMPER-D remote reviewed. Normal device function. Inadequate DREDGE PUMPER at 80%. Maged Arguelles MD [facility] Cardiac Electrophysiology 12/23/2020 11:06 PM Maged Arguelles MD IMPLANTABLE CARDIAC DEVICE documented in this encounter Visit Diagnoses Diagnosis Cardiomyopathy, primary Other primary cardiomyopathies documented in this encounter Care Teams Freelance Displayer Relationship Specialty Start Date End Date Donny Cooper MD [address] [facility] [address] [place] [address] PCP - General Family Medicine 02/25/19 documented as of this encounter
--- OUTSIDE RECORDS SUMMARY | 2023-11-17 08:09 | XMS_ITS | Encounter Summary ---
[place] [address] Care Team Providers Care Soybean Specialties Cook Name Role Phone Donny Cooper MD Primary Care Provider [phone] Encounter Details Date Type Department Care Team (Latest Contact Info) Description 04/08/2022 10:00 AM EST - 04/08/2022 11:59 PM [facility] Hospital Encounter Non-[place] [address] Discharge Disposition: Home Social History Tobacco Use [...] AM EDT Hospital Encounter Non-[place] [address] Arrived documented as of this encounter Procedures Procedure Name Priority Date/Time Associated Diagnosis Comments PRO ICD INTERROGATION REMOTE UP TO 90 DAYS Routine 04/07/2022 4:24 AM EST documented in this encounter Results * Cardiac Device Check - Remote (04/07/2022 4:24 AM EST) Anatomical Region Laterality Modality Other 04/07/2022 4:24 AM EST Braxton Olivera MD IMPLANTABLE CARDIAC DEVICE documented in this encounter Visit Diagnoses Not on filedocumented in this encounter Care Teams [employer]bean Special[employer] Cook Relationship Specialty Start Date End Date Donny Cooper MD [address] [place] [address] PCP - General Family Medicine 02/25/19 documented as of this encounter
--- OUTSIDE RECORDS SUMMARY | 2023-11-17 08:09 | XMS_ITS | Encounter Summary ---
[place] [address] Care Team Providers Care Air Box Tester Name Role Phone Donny Cooper MD Primary Care Provider [phone] Encounter Details Date Type Department Care Team (Latest Contact Info) Description 08/06/2023 10:00 AM EDT - 08/06/2023 11:59 PM EDT Hospital Encounter Non-[place]vasive [place] [address] Discharge Disposition: Home Social History Tobacco Use [...] AM EDT Hospital Encounter Non-[place]vasive [place] [phone] Arrived documented as of this encounter Visit Diagnoses Not on filedocumented in this encounter Care Teams Air Box Tester Relationship Specialty Start Date End Date Donny Cooper MD [address] [place] [address] PCP - General Family Medicine 02/25/19 documented as of this encounter
--- OUTSIDE RECORDS SUMMARY | 2023-11-17 08:09 | XMS_ITS | Encounter Summary ---
[place] [address] Care Team Providers Care Head Silverman Name Role Phone Marques Martinez MD Primary Care Provider [phone] Encounter Details Date Type Department Care Team (Late st Contact Info) Description 05/01/2010 2:40 PM EST Procedure visit [place] [address] Social History Tobacco Use Types Packs/Day Years [...] AM EDT Hospital Encounter [place] [address] Arrived documented as of this encounter Visit Diagnoses Not on filedocumented in this encounter Care Teams Head Silverman Relationship Specialty Start Date End Date Marques Martinez MD [address] [place] [address] PCP - General 04/01/10 04/08/11 documented as of this encounter
--- OUTSIDE RECORDS SUMMARY | 2023-11-17 08:09 | XMS_ITS | Encounter Summary ---
Author Organization [place] [address] Care Team Providers Care Market Reporter Name Role Phone Marques Martinez MD Primary Care Provider [phone] Encounter Details Date Type Department Care Team (Late st Contact Info) Description 03/30/2010 [place] [address] Javier Barajas MD [facility] [place] [address] Social History Tobacco Use Types Packs/Day Years [...] AM EDT Hospital Encounter Non-[place] [address] Arrived documented as of this encounter Procedures Procedure Name Priority Date/Time Associated Diagnosis Comments CREATININE Routine 04/01/2010 6:09 AM EST BUN Routine 04/01/2010 6:09 AM EST ELECTROLYTES PANEL Routine 04/01/2010 6: 09 AM EST DIFFERENTIAL, AUTOMATED Routine 04/01/2010 5:47 AM EST CBC (WITH DIFF) Routine 04/01/2010 5:47 AM EST DIFFERENTIAL, AUTOMATED Routine 03/30/2010 6:05 PM EST CREATININE Routine 03/30/2010 6:05 PM EST APTT Routine 03/30/2010 6:05 PM EST PROTHROMBIN TIME Routine 03/30/2010 6:05 PM EST CBC (WITH DIFF) Routine 03/30/2010 6:05 PM EST BUN Routine 03/30/2010 6:05 PM EST HEPATIC FUNCTION PANEL Routine 03/30/2010 6:05 PM EST ELECTROLYTES PANEL Routine 03/30/2010 6: 05 PM EST ABO/RH TYPING Routine 03/30/2010 3:17 PM EST ANTIBODY SCREEN Routine 03/30/2010 3:17 PM EST DIFFERENTIAL, AUTOMATED STAT 03/30/2010 2:50 PM EST CREATININE STAT 03/30/2010 2:50 PM EST APTT STAT 03/30/2010 2:50 PM EST PROTHROMBIN TIME STAT 03/30/2010 2:50 PM EST CBC (WITH DIFF) STAT 03/30/2010 2:50 PM EST BUN STAT 03/30/2010 2:50 PM EST GLUCOSE, RANDOM STAT 03/30/2010 2:50 PM EST ELECTROLYTES PANEL STAT 03/30/2010 2: 50 PM EST documented in this encounter Results * ELECTROLYTE PANEL (04/01/2010 6:09 AM EST) Sodium 137 135 - 145 mmol/L [facility] Potassium 4.2 3.5 - 5.0 mmol/L [facility] Comment: Please note: ??Patients with WBC >100,000 may have falsely elevated Potassium levels. ??For accurate Potassium quantification in these patients send serum separator tube (gold top) for subsequent determinations. ??Contact the Clinical Chemistry Laboratory if there are any questions. Chloride 103 98 - 107 mmol/L [facility] CO2 26 22 - 31 mmol/L [facility] Anion Gap 8 5 - 15 mmol/L [facility] Blood specimen (specimen) 04/01/2010 6:09 AM EST 04/01/2010 6:09 AM EST Jairon Fenton MD CHEMISTRY ORDERABLES [facility] * (ABNORMAL) CREATININE, SERUM (04/01/2010 6:09 AM EST) Creatinine 0.67(L) 0.80 - 1.50 mg/dL [facility] Estimated GFR >60 >=60 [facility] Comment: The National Kidney Disease Education Program (NKDEP) has recommended all laboratories report estimated GFR (eGFR) along with plasma creatinine measurements to assist you with recognition of early kidney disease. Caveats: ??Plasma creatinine should be at steady-state (unchanged within the past week). ??Patient age > = 18 years, and for Americans multiply eGFR by 1.2. At present, NKDEP does NOT recommend using the MDRD equation for drug dosing purposes and pharmacists should continue to use their current dosing methods. In addition, numerical eGFR values greater than 60 ml/min/1.73 square meters should be treated as > 60, and not an exact number due to greater inaccuracies at these higher values. Per NKDEP, they classify normal renal function as any GFR >60ml/min/1.73 square meters; chronic kidney disease when GFR <60, and renal failure when GFR <15. ??This calculation may not be valid for patients with atypical muscle mass (very lean or obese), acute renal failure, and in patients with diabetic kidney disease. References: http://nkdep.nih.gov/resources/NKDEP_Suggestn4Labs_0606_508.pdf http://www.kidney.org/professionals/kls/pdf/faq_gfr.pdf Blood specimen (specimen) 04/01/2010 6:09 AM EST 04/01/2010 6:09 AM EST Jairon Fenton MD CHEMISTRY ORDERABLES Performing Organization Address [facility] de Phone Number [facility] * BUN (04/01/2010 6:09 AM EST) BUN 12 10 - 20 mg/dL [facility] Blood specimen (specimen) 04/01/2010 6:09 AM EST 04/01/2010 6:09 AM EST Jairon Fenton MD CHEMISTRY ORDERABLES Performing Organization Address [facility] de Phone Number [facility]ER [facility]STOS[facility] * (ABNORMAL) REFLEX LAB-A-DIFF (04/01/2010 5:47 AM EST) Neutrophils % 73.2(H) 34.0 - 71.0 % [facility] Neutr Abs (ANC) 9.77(H) 1.50 - 6.30 x10(3)/mc L [facility] Lymphocytes % 15.8(L) 19.0 - 53.0 % [facility]ILL[facility] Lymphocytes Abs 2.1 1.0 - 3.6 x10(3)/mc L [facility]ILL[facility] Monocytes % 10.2 4.0 - 13.0 % [facility]ILL[facility] Monocyte Abs 1.4(H) 0.2 - 1.0 x10(3)/mc L [facility]ILL[facility] Eosinophils % 0.2 0.0 - 7.0 % [facility]ILL[facility] Eosinophils Abs 0.0 0.0 - 0.5 x10(3)/mc L [facility]ILLENNI[facility] Basophils % 0.2 0.0 - 2.0 % [facility] MILLENNI[facility] Basophils Abs 0.0 0.0 - 0.2 x10(3)/mc L [facility]ILLENNI[facility] Immature Gran % 0.40 0.00 - 0.66 % [facility]ILL[facility] Comment: Immature granulocytes(IG's)percentage and absolute count will include metamyelocytes, myelocytes, and promyelocytes. Blood smears from CBC's yielding IG's will be scanned manually for concordance. If this scan disagrees with the automated IG or if promyelocytes are noted, a manual differential will be performed. Tracey Gran Abs 0.05 0.00 - 0.05 x10(3)/mc L [facility] Blood specimen (specimen) 04/01/2010 5:47 AM EST 04/01/2010 6:06 AM EST Jairon Fenton MD HEMATOLOGY ORDERABLE S [facility] * (ABNORMAL) CBC (04/01/2010 5:47 AM EST) WBC 13.3(H) 4.0 - 10.0 x10(3)/mcL [facility] RBC 3.88(L) 4.63 - 6.08 x10(6)/mcL [facility]ILL[facility] Hemoglobin 12.1(L) 13.7 - 17.5 gm/dL [facility] Hematocrit 36.7(L) 40.0 - 51.0 % [facility]ILL[facility] MCV 94.6(H) 79.0 - 92.0 fL [facility] MILLENNI[facility] MCH 31.2 25.6 - 32.2 pg [facility]ILL[facility] MCHC 33.0 32.0 - 36.5 gm/dL [facility] Platelets 201 145 - 370 x10(3)/mcL [facility] MILL[facility] RDWSD 46.4(H) 35.0 - 46.0 fL [facility] MILLENNIUM RDWCV 13.5 10.9 - 14.4 % [facility] MILLENNIUM MPV 10.5 9.0 - 12.0 fL [facility] Blood specimen (specimen) 04/01/2010 5:47 AM EST 04/01/2010 6:06 AM EST Jairon Fenton MD HEMATOLOGY ORDERABLE S Performing Organization Address [facility] Co de Phone Number [facility]ERNER MILLENNIUM * HEPATIC FUNCTION PANEL (03/30/2010 6:05 PM EST) Total Protein 7.2 6.4 - 8.3 gm/dL [facility]ILLEN[facility] Albumin 4.3 3.2 - 5.2 gm/dL [facility] MILLEN[facility] AST 19 0 - 39 unit/L [facility] MILLEN[facility] ALT 21 0 - 55 unit/L [facility] MILLEN[facility] Alk Phos 77 40 - 120 unit/L [facility] MILLENNI[facility] Total Bilirubin 0.6 0.2 - 1.3 mg/dL [facility] MILLENNI[facility] Bili, Direct 0.1 0.0 - 0.3 mg/dL [facility]ILLEN[facility] Blood specimen (specimen) 03/30/2010 6:05 PM EST 03/30/2010 6:13 PM EST Jairon Fenton MD CHEMISTRY ORDERABLES Performing Organization Address [facility] Phone Number [facility]ER[facility] MILLENNIUM * ELECTROLYTE PANEL (03/30/2010 6:05 PM EST) Sodium 135 135 - 145 mmol/L [facility] MILLENNIUM Potassium 3.9 3.5 - 5.0 mmol/L [facility] MILLENNI[facility] Comment: Please note: ??Patients with WBC >100,000 may have falsely elevated Potassium levels. ??For accurate Potassium quantification in these patients send serum separator tube (gold top) for subsequent determinations. ??Contact the Clinical Chemistry Laboratory if there are any questions. Chloride 100 98 - 107 mmol/L [facility] MILLENNIUM CO2 24 22 - 31 mmol/L [facility] MILLENNI[facility] Anion Gap 11 5 - 15 mmol/L [facility] MILLENNI[facility] Blood specimen (specimen) 03/30/2010 6:05 PM EST 03/30/2010 6:13 PM EST Jairon Fenton MD CHEMISTRY ORDERABLES Performing Organization Address [facility] Co de Phone Number CERNER MILLENNIUM * CREATININE, SERUM (03/30/2010 6:05 PM EST) Creatinine 0.87 0.80 - 1.50 mg/dL [facility] Estimated GFR >60 >=60 [facility] Comment: The National Kidney Disease Education Program (NKDEP) has recommended all laboratories report estimated GFR (eGFR) along with plasma creatinine measurements to assist you with recognition of early kidney disease. Caveats: ??Plasma creatinine should be at steady-state (unchanged within the past week). ??Patient age > = 18 years, and for Americans multiply eGFR by 1.2. At present, NKDEP does NOT recommend using the MDRD equation for drug dosing purposes and pharmacists should continue to use their current dosing methods. In addition, numerical eGFR values greater than 60 ml/min/1.73 square meters should be treated as > 60, and not an exact number due to greater inaccuracies at these higher values. Per NKDEP, they classify normal renal function as any GFR >60ml/min/1.73 square meters; chronic kidney disease when GFR <60, and renal failure when GFR <15. ??This calculation may not be valid for patients with atypical muscle mass (very lean or obese), acute renal failure, and in patients with diabetic kidney disease. References: http://nkdep.nih.gov/resources/NKDEP_Suggestn4Labs_0606_508.pdf http://www.kidney.org/professionals/kls/pdf/faq_gfr.pdf Blood specimen (specimen) 03/30/2010 6:05 PM EST 03/30/2010 6:13 PM EST Jairon Fenton MD CHEMISTRY ORDERABLES Performing Organization Address [facility] Co de Phone Number [facility] * BUN (03/30/2010 6:05 PM EST) BUN 18 10 - 20 mg/dL [facility] Blood specimen (specimen) 03/30/2010 6:05 PM EST 03/30/2010 6:13 PM EST Jairon Fenton MD CHEMISTRY ORDERABLES Performing Organization Address [facility]/ZIP Co de Phone Number [facility] * APTT (03/30/2010 6:05 PM EST) PTT 26 25 - 37 sec [facility] Comment: Recommended therapeutic PTT range for full dose unfractionated heparin is 80-114 seconds. Blood specimen (specimen) 03/30/2010 6:05 PM EST 03/30/2010 6:14 PM EST Jairon Fenton MD HEMATOLOGY ORDERABLE S Performing Organization Address [facility] Co de Phone Number [facility] * PROTIME-INR (03/30/2010 6:05 PM EST) PT 14.2 12.3 - 14.7 sec [facility] Comment: [facility] Transfusion Committee Guidelines: INR less than 2.0, PTT less than OR equal to 43.5 seconds, or Fibrinogen greater than or equal to 100 mg/dl indicate adequate procoagulant activity for hemostasis in patients without underlying bleeding disorders. INR 1.1 0.9 - 1.1 [facility] Blood specimen (specimen) 03/30/2010 6:05 PM EST 03/30/2010 6:14 PM EST Jairon Fenton MD HEMATOLOGY ORDERABLE S Performing Organization Address [facility] Co de Phone Number DEJA SEGOVIA * (ABNORMAL) REFLEX LAB-A-DIFF (03/30/2010 6:05 PM EST) Neutrophils % 69.6 34.0 - 71.0 % [facility]ILL[facility] Neutr Abs (ANC) 8.85(H) 1.50 - 6.30 x10(3)/mc L [facility]ILL[facility] Lymphocytes % 23.9 19.0 - 53.0 % [facility]ILLENNI[facility] Lymphocytes Abs 3.0 1.0 - 3.6 x10(3)/mc L [facility] MILLENNIUM Monocytes % 5.8 4.0 - 13.0 % [facility] MILLENNIUM Monocyte Abs 0.7 0.2 - 1.0 x10(3)/mc L [facility] MILLENNIUM Eosinophils % 0.2 0.0 - 7.0 % [facility] MILLENNIUM Eosinophils Abs 0.0 0.0 - 0.5 x10(3)/mc L [facility] MILLENNIUM Basophils % 0.3 0.0 - 2.0 % [facility] MILLENNIUM Basophils Abs 0.0 0.0 - 0.2 x10(3)/mc L [facility]ILLENNI[facility] Immature Gran % 0.20 0.00 - 0.66 % [facility]ILLEN[facility] Comment: Immature granulocytes(IG's)percentage and absolute count will include metamyelocytes, myelocytes, and promyelocytes. Blood smears from CBC's yielding IG's will be scanned manually for concordance. If this scan disagrees with the automated IG or if promyelocytes are noted, a manual differential will be performed. Tracey Gran Abs 0.02 0.00 - 0.05 x10(3)/mc L [facility]ILL[facility] Blood specimen (specimen) 03/30/2010 6:05 PM EST 03/30/2010 6:13 PM EST Jairon Fenton MD HEMATOLOGY ORDERABLE S [facility] * (ABNORMAL) CBC (03/30/2010 6:05 PM EST) WBC 12.7(H) 4.0 - 10.0 x10(3)/mcL [facility] MILLEN[facility] RBC 4.57(L) 4.63 - 6.08 x10(6)/mcL [facility]ILLENNI[facility] Hemoglobin 14.1 13.7 - 17.5 gm/dL [facility]ILLEN[facility] Hematocrit 42.4 40.0 - 51.0 % [facility] MILLENNI[facility] MCV 92.8(H) 79.0 - 92.0 fL [facility]ILLENNI[facility] MCH 30.9 25.6 - 32.2 pg [facility] MILLENNI[facility] MCHC 33.3 32.0 - 36.5 gm/dL [facility] MILLENNI[facility] Platelets 230 145 - 370 x10(3)/mcL [facility] MILLENNIUM RDWSD 44.2 35.0 - 46.0 fL [facility]ILLENNI[facility] RDWCV 13.1 10.9 - 14.4 % [facility] MILLENNIUM MPV 10.6 9.0 - 12.0 fL [facility]ILL[facility] Blood specimen (specimen) 03/30/2010 6:05 PM EST 03/30/2010 6:13 PM EST Jairon Fenton MD HEMATOLOGY ORDERABLE S [facility] * REFLEX LAB-ANTIBODY SCREEN (03/30/2010 3:17 PM EST) Ab Screen Interp Negative [facility] MILLENNIUM Expires at [id number] on: [id number] [facility] Blood specimen (specimen) 03/30/2010 3:17 PM EST 03/30/2010 3:17 PM EST Javier Barajas MD BLOOD BANK LAB ORDER PRECIOUS Performing Organization Address City/[facility]/ZIP Co de Phone Number [facility] * REFLEX LAB-ABO/RH (03/30/2010 3:17 PM EST) ABORH Type A Pos [facility]ILL[facility] Blood specimen (specimen) 03/30/2010 3:17 PM EST 03/30/2010 3:17 PM EST Javier Barajas MD BLOOD BANK LAB ORDER PRECIOUS [facility] * ELECTROLYTE PANEL (03/30/2010 2:50 PM EST) Sodium 135 135 - 145 mmol/L [facility]ILLEN[facility] Potassium 4.3 3.5 - 5.0 mmol/L [facility]ILL[facility] Comment: Please note: ??Patients with WBC >100,000 may have falsely elevated Potassium levels. ??For accurate Potassium quantification in these patients send serum separator tube (gold top) for subsequent determinations. ??Contact the Clinical Chemistry Laboratory if there are any questions. Chloride 100 98 - 107 mmol/L [facility] MILLENNIUM CO2 26 22 - 31 mmol/L [facility] MILLENNI[facility] Anion Gap 9 5 - 15 mmol/L [facility] MILLEN[facility] Blood specimen (specimen) 03/30/2010 2:50 PM EST 03/30/2010 3:05 PM EST Javier Barajas MD CHEMISTRY ORDERABLES Performing Organization Address [facility] Co de Phone Number [facility] * CREATININE, SERUM (03/30/2010 2:50 PM EST) Creatinine 0.85 0.80 - 1.50 mg/dL [facility] Estimated GFR >60 >=60 [facility] Comment: The National Kidney Disease Education Program (NKDEP) has recommended all laboratories report estimated GFR (eGFR) along with plasma creatinine measurements to assist you with recognition of early kidney disease. Caveats: ??Plasma creatinine should be at steady-state (unchanged within the past week). ??Patient age > = 18 years, and for Americans multiply eGFR by 1.2. At present, NKDEP does NOT recommend using the MDRD equation for drug dosing purposes and pharmacists should continue to use their current dosing methods. In addition, numerical eGFR values greater than 60 ml/min/1.73 square meters should be treated as > 60, and not an exact number due to greater inaccuracies at these higher values. Per NKDEP, they classify normal renal function as any GFR >60ml/min/1.73 square meters; chronic kidney disease when GFR <60, and renal failure when GFR <15. ??This calculation may not be valid for patients with atypical muscle mass (very lean or obese), acute renal failure, and in patients with diabetic kidney disease. References: http://nkdep.nih.gov/resources/NKDEP_Suggestn4Labs_0606_508.pdf http://www.kidney.org/professionals/kls/pdf/faq_gfr.pdf Blood specimen (specimen) 03/30/2010 2:50 PM EST 03/30/2010 3:05 PM EST Javier Barajas MD CHEMISTRY ORDERABLES Performing Organization Address City/[facility]/ZIP Co de Phone Number [facility] * BUN (03/30/2010 2:50 PM EST) BUN 18 10 - 20 mg/dL [facility] Blood specimen (specimen) 03/30/2010 2:50 PM EST 03/30/2010 3:05 PM EST Javier Barajas MD CHEMISTRY ORDERABLES Performing Organization Address [facility] Phone Number [facility] * GLUCOSE, RANDOM (03/30/2010 2:50 PM EST) Glucose Lvl 95 <=199 mg/dL [facility] Comment:Diabetes: >=200 mg/d L plus symptoms Blood specimen (specimen) 03/30/2010 2:50 PM EST 03/30/2010 3:05 PM EST Javier Barajas MD CHEMISTRY ORDERABLES Performing Organization Address [facility] Phone Number [facility] * APTT (03/30/2010 2:50 PM EST) PTT 25 25 - 37 sec [facility] Comment: Recommended therapeutic PTT range for full dose unfractionated heparin is 80-114 seconds. Blood specimen (specimen) 03/30/2010 2:50 PM EST 03/30/2010 3:06 PM EST Javier Barajas MD HEMATOLOGY ORDERABLE S Performing Organization Address [facility] Phone Number [facility] * PROTIME-INR (03/30/2010 2:50 PM EST) PT 14.1 12.3 - 14.7 sec [facility] Comment: [facility] Transfusion Committee Guidelines: INR less than 2.0, PTT less than OR equal to 43.5 seconds, or Fibrinogen greater than or equal to 100 mg/dl indicate adequate procoagulant activity for hemostasis in patients without underlying bleeding disorders. INR 1.1 0.9 - 1.1 [facility] Blood specimen (specimen) 03/30/2010 2:50 PM EST 03/30/2010 3:06 PM EST Javier Barajas MD HEMATOLOGY ORDERABLE S [facility] * (ABNORMAL) REFLEX LAB-A-DIFF (03/30/2010 2:50 PM EST) Neutrophils % 82.5(H) 34.0 - 71.0 % [facility] MILLENNIUM Neutr Abs (ANC) 12.60(H) 1.50 - 6.30 x10(3)/mc L [facility] MILLENNIUM Lymphocytes % 12.2(L) 19.0 - 53.0 % [facility] MILLENNIUM Lymphocytes Abs 1.9 1.0 - 3.6 x10(3)/mc L [facility] MILLENNIUM Monocytes % 4.6 4.0 - 13.0 % [facility]ILLENNIUM Monocyte Abs 0.7 0.2 - 1.0 x10(3)/mc L [facility]ILLEN[facility] Eosinophils % 0.1 0.0 - 7.0 % [facility]ILLENNI[facility] Eosinophils Abs 0.0 0.0 - 0.5 x10(3)/mc L [facility]ILLENNIUM Basophils % 0.3 0.0 - 2.0 % [facility]ILLENNIUM Basophils Abs 0.0 0.0 - 0.2 x10(3)/mc L [facility]ILL[facility] Immature Gran % 0.30 0.00 - 0.66 % [facility]ILL[facility] Comment: Immature granulocytes(IG's)percentage and absolute count will include metamyelocytes, myelocytes, and promyelocytes. Blood smears from CBC's yielding IG's will be scanned manually for concordance. If this scan disagrees with the automated IG or if promyelocytes are noted, a manual differential will be performed. Tracey Gran Abs 0.04 0.00 - 0.05 x10(3)/mc L [facility] Blood specimen (specimen) 03/30/2010 2:50 PM EST 03/30/2010 3:06 PM EST Javier Barajas MD HEMATOLOGY ORDERABLE S [facility] * (ABNORMAL) CBC (03/30/2010 2:50 PM EST) WBC 15.3(H) 4.0 - 10.0 x10(3)/mcL [facility]ILLEN[facility] RBC 4.59(L) 4.63 - 6.08 x10(6)/mcL [facility]ILLEN[facility] Hemoglobin 14.6 13.7 - 17.5 gm/dL [facility]ILL[facility] Hematocrit 42.6 40.0 - 51.0 % [facility] MILLENNIUM MCV 92.8(H) 79.0 - 92.0 fL [facility]ILLENNI[facility] MCH 31.8 25.6 - 32.2 pg [facility]ILLENNI[facility] MCHC 34.3 32.0 - 36.5 gm/dL [facility]ILL[facility] Platelets 232 145 - 370 x10(3)/mcL [facility] MILLENNIUM RDWSD 44.0 35.0 - 46.0 fL [facility]ILLENNI[facility] RDWCV 13.0 10.9 - 14.4 % [facility] MILLENNIUM MPV 10.4 9.0 - 12.0 fL [facility] Blood specimen (specimen) 03/30/2010 2:50 PM EST 03/30/2010 3:06 PM EST Javier Barajas MD HEMATOLOGY ORDERABLE S DEJA SEGOVIA documented in this encounter Visit Diagnoses Not on filedocumented in this encounter Care Teams Market Reporter Relationship Specialty Start Date End Date Marques Martinez MD [address] [place] [address] PCP - General 04/01/10 04/08/11 documented as of this encounter
--- OUTSIDE RECORDS SUMMARY | 2023-11-19 08:21 | XMS_ITS | Encounter Summary ---
Author Organization [facility] Address [address] [place] [address] Care Team Providers Care Supervisor Hot Dip Plating Name Role Phone Clem Olvera MD Primary Care Provider [phone] Reason for Visit * Reason Onset Date Comments Other 04/04/2019 Transfer request for Pacer Care at [facility] Encounter Details Date Type Department Care Team (Late st Contact Info) Description 04/04/2019 Telephone [facility] - [facility] Cardiology Clinic [address] [place] [address] Giselle Hill, KNOCKOUT MACHINE OPERATOR Other (Transfer request for Pacer Care at [facility]) Social History Tobacco Use Types Packs/Day Years [...] 04/04/2019 1503 EST I went into the [employer] Website and released pt to [facility] Pacer Clinic as requested. * Telephone Encounter - Suze Reynoso - 04/04/2019 1342 EST PT WILL BE HAVING HIS PACER CARE DONE AT [facility], PLEASE RELEASE HIS REMOTE MONITORING SO THAT THEY CAN PICK IT UP documented in this encounter Plan of Treatment Not on file documented as of this encounter Visit Diagnoses Not on filedocumented in this encounter Care Teams Supervisor Hot Dip Plating Relationship Specialty Start Date End Date Clem Olvera MD [address] [place] [id number] PCP - General 12/18/15 documented as of this encounter
--- OUTSIDE RECORDS SUMMARY | 2023-11-19 08:21 | XMS_ITS | Clinical Summary ---
Author Organization [facility] [place] [address] Care Team Providers Care School Bus Dispatcher Name Role Phone Donny Cooper MD Primary Care Provider [phone] Allergies No known active allergies Medications Medication [...] PM EDT Hospital Encounter Non-[place]vasive [place] [phone] Discharge Disposition: Home from Last 3 Months [...] AM EDT Hospital Encounter Non-[place] [phone] Arrived Health Maintenance Due Date Last Done Comments Tdap adult 08/19/1959 Tetanus vaccine 08/19/1959 Zoster vaccine (1 of 2) 1990 Advance Directive 08/19/1995 Pneumoccocal Vaccine: 65+ (2 of 2 - PCV) 05/04/2009 05/04/2008 Covid-19 Vaccine ( - 2022- season) 2023 Influenza (Flu) vaccine (1 o f 1 - Influenza standard series) 01/03/2024 02/01/2010, 03/06/2006, 02/24/2005 Medical Devices Implanted Type Area Business Development Officer Device Identifier Shelf Expiration Date Model / Serial / Lot Mdt : [id number] : [id number] Implanted: (Quantity not on file) Cardiac Resynchronization Therapy - Defibrillator Chest [employer] - [id number] / [id number] / Procedures Procedure Name Priority Date/Time Associated Diagnosis Comments PRO ICD INTERROGATION REMOTE UP TO 90 DAYS Routine 09/08/2023 5:26 AM EDT from Last 3 Months Results * Cardiac Device Check - Remote (09/08/2023 5:26 AM EDT) Anatomical Region Laterality Modality Other 09/08/2023 5:26 AM EDT Alber Seals MD IMPLANTABLE CARDIAC DEVICE from Last 3 Months Care Teams School Bus Dispatcher Relationship Specialty Start Date End Date Donny Cooper MD [address] [place] [address] PCP - General Family Medicine 02/25/19
--- OUTSIDE RECORDS SUMMARY | 2023-11-19 08:21 | XMS_ITS | Encounter Summary ---
Author Organization [facility] Address [address] [place] [address] Care Team Providers Care Stone Engraver Name Role Phone Clem Olvera MD Primary Care Provider [phone] Reason for Visit * Reason Onset Date Comments Appointment Related 10/23/2016 Check for fo llow up of pacer Encounter Details Date Type Department Care Team ([facility] Contact Info) Description 10/23/2016 Telephone [facility] Cardiology - [address] [place] [address] Pacemaker, Pace Appointment Related (Check [...] that Nabil had his pacemaker checked in [place] where they are for the winter. They have some back and are being followed by Dr. Hurd at [facility]. documented in this encounter Plan of Treatment Not on file documented as of this encounter Visit Diagnoses Not on filedocumented in this encounter Care Teams Stone Engraver Relationship Specialty Start Date End Date Clem Olvera MD [address] [place] [address] PCP - General 12/18/15 documented as of this encounter
--- OUTSIDE RECORDS SUMMARY | 2023-11-19 08:21 | XMS_ITS | Encounter Summary ---
[place] [address] Care Team Providers Care Scrub Tech Name Role Phone Donny Coopre MD Primary Care Provider [phone] Encounter Details Date Type Department Care Team (Latest Contact Info) Description 11/04/2023 10:00 AM EDT - 11/04/2023 11:59 PM EDT Hospital Encounter [place] [address] Discharge Disposition: Home Social History Tobacco Use [...] AM EDT Hospital Encounter [place] [phone] Arrived documented as of this encounter Procedures [...] on filedocumented in this encounter Care Teams Scrub Tech Relationship Specialty Start Date End Date Donny Cooper MD [address] [place] [address] PCP - General Family Medicine 02/25/19 documented as of this encounter
--- OUTSIDE RECORDS SUMMARY | 2023-11-19 08:21 | XMS_ITS | Referral Summary ---
Author Organization [facility] Address [address] [place] [address] Care Team Providers Care Joinery Patternmaker Name Role Phone Clem Olvera MD Primary Care Provider [phone] Allergies No known active allergies Medications Medication [...] Advance Directives For more information, please contact: [phone] * Full Code (Latest Code Status on File) Date Activated Date Inactivated Comments 02/27/2016 8:49 02/28/2016 15:40 Question Answer Comments Reason for decision includes: Full code consistent with overall plan of care Who participated in the discussion? Not Discusse d Care Teams Joinery Patternmaker Relationship Specialty Start Date End Date Clem Olvera MD [address] [place] [id number] PCP - General 12/18/15
--- OUTSIDE RECORDS SUMMARY | 2023-11-19 08:21 | XMS_ITS | Encounter Summary ---
Author Organization [facility] Address [address] [place] [address] Care Team Providers Care Hem Inspector Name Role Phone Unknown, Provider Primary Care Provider [phone] Clem Olvera MD Primary Care Provider [phone] Encounter Details Date Type Department Care Team (Late st Contact Info) Description 11/29/2015 Pre-Procedure Orders Encounter [facility] [address] [place], [place] [id number] Navdeep Hurd MD [address] [place] [address] [address] Social History Tobacco Use Types [...] Patient: Nabil Streeter. Attending: Dr. Moran Scrrajinder Physician Relations Manager: Dr. Fantasma Dhillon History/indication: The patient is [...] Patient: Nabil Streeter Attending: Dr. Dean Bailey Physician Relations Manager: Dr. Fantasma Dhillon History/indication: The patient is [...] on filedocumented in this encounter Care Teams Hem Inspector Relationship Specialty Start Date End Date Unknown, Provider, PCP - General 12/06/12 12/17/15 Clem Olvera MD [address] [place] [id number] PCP - General 12/18/15 documented as of this encounter
--- OUTSIDE RECORDS SUMMARY | 2023-11-19 08:21 | XMS_ITS | Encounter Summary ---
Author Organization [facility] Address [address] [place] [address] Care Team Providers Care Patient Relations Coordinator Name Role Phone Clem Olvera MD Primary Care Provider Encounter Details Date Type Department Care Team (Latest Contact Info) Description 12/20/2015 10:52 EDT - 12/20/2015 23:52 EDT Hospital Encounter [facility] Cardiovascular Unit [address] [place] [address] Navdeep Hurd MD [address] [place] [address] [address] Discharge Disposition: Home or Self [...] from angio in stable condition. * Laly Le RN - 12/19/2015 1419 EDT PreCall - spoke with Nabil and discussed that he will not be receiving sedation, so no need to beNPO or have a truck driver flatbed. However, his will be accompanying him. [place] to the airport [place] and then will come here and check-in around 1145. He agrees to have a shower. documented in this encounter Procedure Notes * Fantasma Dhillon MD - 12/20/2015 1356 EDT IR Brief Procedure Note Attending: Leo Mentally Retarded Teacher: Alejo Pre-op Dx: Arrhythmia, need for pacemaker [...] 12/19 documented in this encounter Care Teams Patient Relations Coordinator Relationship Specialty Start Date End Date Clem Olvera MD [address] [place] [address] PCP - General 12/18/15 documented as of this encounter
--- OUTSIDE RECORDS SUMMARY | 2023-11-19 08:21 | XMS_ITS | Encounter Summary ---
[place] [address] Care Team Providers Care Steel Tester Name Role Phone Donny Cooper MD Primary Care Provider [phone] Encounter Details Date Type Department Care Team (Latest Contact Info) Description 08/06/2023 10:00 AM EDT - 08/06/2023 11:59 PM EDT Hospital Encounter [place] [address] Discharge Disposition: Home Social History Tobacco Use [...] AM EDT Hospital Encounter [place] [phone] Arrived documented as of this encounter Visit Diagnoses Not on filedocumented in this encounter Care Teams Steel Tester Relationship Specialty Start Date End Date Donny Cooper MD [address] [place] [address] PCP - General Family Medicine 02/25/19 documented as of this encounter
--- OUTSIDE RECORDS SUMMARY | 2023-11-19 08:21 | XMS_ITS | Encounter Summary ---
Author Organization [facility] Address [address] [place] [address] Care Team Providers Care Research Quality Assurance Analyst Name Role Phone Unavailable Primary Care Provider Unavailabl e Encounter Details Date Type Department Care Team (Late st Contact Info) Description 12/02/2012 Results Only [facility] - [facility] ([facility] [address] [place] [id number] Satinder Edwards MD [address] [place] [id number] Social History Tobacco Use Types Packs/Day Years [...] ? NABIL IGLESIAS ? Accession #: ? [id number] ? : ? 1940 (Age: 72) ??M [...] Sanchez 12/03/2012 08:11 AM End of Report DIVAY BERRY 12/02/2012 16:5 1 EDT 12/02/2012 16:51 EDT Satinder Edwards MD PATHOLOGY ORDERABLE S Performing Organization Address City/State/[facility] Co de Phone Number DIVYA BERRY [address] [place] [address] documented in this encounter Visit Diagnoses Not on filedocumented in this encounter
--- OUTSIDE RECORDS SUMMARY | 2023-11-19 08:21 | XMS_ITS | Clinical Summary ---
Author Organization [facility] Address [address] [place] [address] Care Team Providers Care Top Inventory Control Executive Name Role Phone Clem Olvera MD Primary Care Provider [phone] Allergies No known active allergies Medications Medication [...] PACEMAKER INSERTION 05/04/2002 - 05/03/20032013 second pacemaker [facility] Medical History Medical History Date Comments CAD [...] Advance Directives For more information, please contact: [phone] * Full Code (Latest Code Status on File) Date Activated Date Inactivated Comments 02/27/2016 8:49 02/28/2016 15:40 Question Answer Comments Reason for decision includes: Full code consistent with overall plan of care Who participated in the discussion? Not Discusse d Care Teams Top Inventory Control Executive Relationship Specialty Start Date End Date Clem Olvera MD [address] [place] [phone] PCP - General 12/18/15
--- OUTSIDE RECORDS SUMMARY | 2023-11-19 08:21 | XMS_ITS | Encounter Summary ---
Author Organization [facility] Address [address] [place] [address] Care Team Providers Care Behavioral Specialist Name Role Phone Clem Olvera MD Primary Care Provider [phone] Reason for Referral * (Routine) - Closed Specialty Diagnoses / Procedures Referred By Pedro madera Referred To Contact Beatrice De La Garza NP [address] [place] [phone] Referral ID Status Reason Start Date Expiration Date V isits Requested Visits Authorized [id number] Closed Specialty Services Required 02/27/2016 1 1 Comments You must contact us if we have not contacted you or you have missed your scheduled appointment. If you have any nursing questions, please don't hesitate to call the Cardiac Arrhythmia Service at [facility] at or , extension [phone]. For any scheduling of appointments, please call [phone] or , extension [phone]. . * (Routine) - Closed Specialty Diagnoses / Procedures Referred By Pedro madera Referred To Contact Beatrice De La Garza NP [address] [phone] Referral ID Status Reason Start Date Expiration Date V isits Requested Visits Authorized [id number] Closed Specialty Services Required 02/27/2016 1 1 Comments You have a pre existing appointment with Dr. Olvera on March 05 at 2:00, please have Dr. Olvera check your incision at that visit. * (Routine) - Closed Specialty Diagnoses / Procedures Referred By Contbecca t Referred To Contact Beatrice De La Garza NP [address] [phone] Referral ID Status Reason Start Date Expiration Date V isits Requested Visits Authorized [id number] Closed Specialty Services Required 02/27/2016 1 1 [...] scheduled at your first appointment. - [facility] Cardiology is located at [address] [facility] in [place] -Clinics are also held in [facility], and [place], [place] and [facility]. If you live in those areas, we will make arrangements for follow-up appointments in one of those clinics.. Encounter Details Date Type Department Care Team (Late st Contact Info) Description 02/27/2016 6:30 EDT - 02/28/2016 13:39 EDT Hospital Encounter [facility] Cardiac/Telemetry Unit [address] [place] [address] Gulshan Drummond MD PhD [address] [phone] Gulshan Montoya Sa, MD [address] [facility] [address] [place] [phone] AICD lead malfunction, subsequent encounter; ICD [...] EF of 20-25% status post silent inferior [place] in the early . 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 He had heart failure symptoms that started around May 2013, when he was in [place], [place]. This triggered major cardiac workup including [...] then underwent a device upgrade to a SUPERVISOR PASTRY-D device with biventricular pacing for his EF [...] been followed in cardiology outreach clinic at [facility] in [place]. Continued high pacing threshold on the epicardial [...] and plans to follow up with his Sheep Sorter in [place] in 6-8 weeks for which he will arrange once he has arrived in [place]. He has been provided with the implant [...] HGBA1C Discharge Follow Up Appointments Scheduled with [facility] Appointments Outside of [facility] We Will Schedule Studies We Will Schedule Appointments We Recommend but have not been Scheduled Beatrice De La Garza NP 02/27/2016 10:59 Associated attestation - Gulshan Montoya Sa, MD - 02/28/2016 1519 EDT Attending Attestation: I saw and evaluated the patient. I discussed the case with the resident/MILITARY COOK/fellow and agree with the findings and plan as documented above. Gulshan bullock Sa, MD Cardiac Electrophysiology documented in this encounter Discharge Instructions * Appointments* Beatrice De La Garza NP - 02/27/2016 11:[address] Olvera on 03/05/16 at 2:00 as previously scheduled for a routine visit and for a check of your incision. Follow up with Giselle Hill NP at the [facility] in May, you will be notified with [...] Notes * Lou Alfonso RN - 02/28/2016 0860 EDT Pt awaiting discharge. IV and tele was removed by primary nurse. This RN administered flu shot and provided flu information sheet. AVS and medications reviewed by RN with patient and . AVS statedcoreg was 3.25mg BID, which pt states no, they must have copied it down wrong. I'm not doing that.We've been through this in [place]. It makes me pass out. RN suggested checking with team, which pt denied and states I wont take it twice a day. He did agree to review this medication with his geriatric nurse and plans to remain on his home dosing, which was in the morning. He received dose this am. Ptleft via wheelchair with . * Beatrice Rodriguez - 02/28/2016 1329 EDT Brief visit with patient and as they were being discharged. Patient states he is independent in self care and home management. He feels well supported by friends and neighbors. Patient has Medicare and [facility]. Pharmacy is [facility] in [facility]. No needs identified at time of discharge. will provide transportation. Beatrice Rodriguez RN Case Manager #[id number] documented in this encounter H&P Notes * Navdeep Hurd MD - 02/27/2016 0830 EDT Cardiology Admitting H&P Admit Date: 02/27/2016 Date of Service: 02/27/2016 PCP: Clem Olvera Code Status: Full Code Chief Complaint: FINN, device battery depletion, high pacing threshold on epicardial lead HPI: 74-year-old man with coronary artery disease and ischemic cardiomyopathy status post silent inferior [place] in the early . 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 He had heart failure symptoms that started around May 2013, when he was in [place], [place]. This triggered major cardiac workup including [...] point, his device was upgraded to a SUPERVISOR PASTRY-D device with biventricular pacing. By the patient's [...] been followed in cardiology outreach clinic at [facility] in [place]. Continued high pacing threshold on the epicardial LV lead has caused a very rapid battery depletion. Dr. David Adams in [place] recommended against lead extraction and reimplant as [...] ??? Pacemaker insertion 2002 2013 second pacemaker [facility] Social History Family History Social History Substance Use Topics ??? Smoking status: Former Smoker Years: 35.00 Quit date: 1989 ??? Smokeless tobacco: Not on file ??? Alcohol use 6.6 oz/week 6 Cans of beer, 5 Glasses of wine per week , lives with , retired. Spends leong in [place]. Spends the chery in [place], [place]. Quit smoking in 1990. Has 2 [...] and ischemic cardiomyopathy status post silent inferior [place] in the early . Also diagnosed with [...] point, his device was upgraded to a SUPERVISOR PASTRY-D device with biventricular pacing with a surgically [...] EST) 03/12/2016 12:4 3 EST Scan 2 [employer]rier Shop Supervisor PROCEDURE/MINOR JUDD GICAL ORDERABLES * ECG REPORT - SCANNED (03/04/2016 14:06 EDT) 03/04/2016 14:0 6 EDT Scan 2 [employer]rier Shop Supervisor PROCEDURE/MINOR JUDD GICAL ORDERABLES * ECG REPORT - SCANNED (03/04/2016 14:06 EDT) 03/04/2016 14:0 6 EDT Scan 2 Furrier Shop Supervisor PROCEDURE/MINOR JUDD GICAL ORDERABLES * IMPLANT RECORD - SCANNED (03/04/2016 14:06 EDT) 03/04/2016 14:0 6 EDT Scan 2 [employer]rier Shop Supervisor PROCEDURE/MINOR JUDD GICAL ORDERABLES * ECG REPORT - SCANNED (03/01/2016 8:58 EDT) 03/01/2016 8:58 EDT Scan 2 Furrier Shop Supervisor PROCEDURE/MINOR JUDD GICAL ORDERABLES * ECG REPORT - SCANNED (03/01/2016 8:58 EDT) 03/01/2016 8:58 EDT Scan 2 [employer]rier Shop Supervisor PROCEDURE/MINOR JUDD GICAL ORDERABLES * CHEST PA [...] IMAGING ORDERABLES * HEMAGRAM (02/28/2016 5:44 EDT) [facility] WBC 9.84 4.0 - 10.4 K/cmm 02/28/2016 6:26 EDT [facility] RBC 4.42 4.36 - 5.78 M/cmm 02/28/2016 6:26 T [facility] Hemoglobin 14.2 13.8 - 17.3 gm/dl 02/28/2016 6:26 [facility] HCT 40.9 39.5 - 50.2 % 02/28/2016 6:26 [facility] MCV 93 81 - 95 fl 02/28/2016 6:26 [facility] MCH 32.1 27.6 - 33.0 pg 02/28/2016 6:26 [facility] MCHC 34.7 32.8 - 36.4 gm/dl 02/28/2016 6:26 [facility] RDW-CV 13.1 11.8 - 14.1 % 02/28/2016 6:26 [facility] RDW-SD 44.6 36.5 - 45.9 fl 02/28/2016 6:26 [facility] PLT 151 141 - 377 K/cmm 02/28/2016 6:26 [facility] MPV 11.2 9.5 - 12.7 fl 02/28/2016 6:26 [facility] Blood specimen (specimen) BLOOD SPECIMEN / Unknown 02/28/2016 5:44 EDT 02/28/2016 6:13 EDT Beatrice De La Garza NP HEMATOLOGY & PF4 ORDERABLES [facility] [address] [place] [address] * (ABNORMAL) CREATININE (02/28/2016 5:44 EDT) Creatinine 0.65(L) 0.66 - 1.25 mg/dl 02/28/2016 6:48 EDT [facility] GFR, Calculated 95 >60 ml/min/1.7 3m2 02/28/2016 6:48 EDT [facility] Comment: eGFR calculated using CKD-EPI equation for non Americans. Multiply eGFR by 1.16 for Americans. Blood specimen (specimen) BLOOD SPECIMEN / Unknown 02/28/2016 5:44 EDT 02/28/2016 6:13 EDT Beatrice De La Garza NP CHEMISTRY & B LOOD GAS ORDERABLES Performing Organization Address [facility]/ZIP Co de Phone Number [facility] [address] [place] [address] * BUN (02/28/2016 5:44 EDT) BUN 14 10 - 26 mg/dl 02/28/2016 6:48 EDT [facility] Blood specimen (specimen) BLOOD SPECIMEN / Unknown 02/28/2016 5:44 EDT 02/28/2016 6:13 EDT Beatrice De La Garza MILITARY COOK CHEMISTRY & B LOOD GAS ORDERABLES Performing Organization Address [facility] Co de Phone Number [facility] [address] [place] [address] * ELECTROLYTES (02/28/2016 5:44 EDT) Sodium 138 136 - 145 mEq/L 02/28/2016 6:48 EDT [facility] Potassium 4.7 3.5 - 5.0 mEq/L 02/28/2016 6:48 EDT [facility] Chloride 104 96 - 110 mEq/L 02/28/2016 6:48 EDT [facility] CO2 25 22 - 32 mEq/L 02/28/2016 6:48 EDT [facility] Comment:Note new reference r hong 02/19/16 Blood specimen (specimen) BLOOD SPECIMEN / Unknown 02/28/2016 5:44 EDT 02/28/2016 6:13 EDT Beatrice De La Garza NP CHEMISTRY & B LOOD GAS ORDERABLES [facility] [address] [place] [address] * PORTABLE CHEST 1 VIEW (02/27/2016 12:46 [...] 02/27/2016 12:4 1 EDT Narrative [facility] EKG - 02/28/2016 8:57 EDT ? [facility] ? Test Date: ?2016-02-27 Pat Name: ? NABIL IGLESIAS ? Department: ?? [facility] ? Room: ? MW514 Gender: ? M ?Wig Dresser: ?? [id number] : ?1940 ? Requested By: KAIN REED L Order Number: [id number] ? [place] MD: ?? BRAYAN CUENCA MD ? Measurements Intervals ?[place] ? Rate: ? 63 ? P: ?15 AR: ? 159 ?QRS: ?234 QRSD: ? 156 ?T: ?15 QT: ? 479 ? QTc: ?493 ? Interpretive Statements ELECTRONIC VENTRICULAR PACEMAKER Compared to ECG 02/27/2016 08:10:34 No significant changes I reviewed the tracing and have either agreed or edited the findings in this report. Electronically Signed On 02-28-16 08:57:02 EDT by BRAYAN CUENCA MD. Procedure Note Brayan Cuenca MD - 02/28/2016 [facility] Test Date: 2016-02-27 Pat Name: NABIL IGLESIAS Department: [place] [address] Room: [facility] Gender: M Wig Dresser: [id number] : 1940 Requested By: KAIN Gallagher Order Number: [id number] [place] MD: BRAYAN CUENCA MD Measurements Intervals [place] Rate: 63 P: 15 AR: 159 QRS: 234 QRSD: 156 T: 15 QT: 479 QTc: 493 Interpretive Statements ELECTRONIC VENTRICULAR PACEMAKER Compared to ECG 02/27/2016 08:10:34 No significant changes I reviewed the tracing and have either agreed or edited the findings inthis report. Electronically Signed On 02-28-16 08:57:02 EDT by BRAYAN BEEBE. Gulshan Drummond MD PhD CARDIA C ECG ORDERABLES [facility] EKG * PROTIME (02/27/2016 8:45 EDT) Pro Time 12.3 10.3 - 13.1 secs 02/27/2016 9:10 EDT [facility] Comment: New prothrombin t josue range effective 01/29/16 I.N.R. 1.1 0.9 - 1.1 Ratio 02/27/2016 9:10 EDT [facility] Comment: Moderate Intensity Coumadin INR = 2.0-3.0 Adjustments in anticoagulant therapy dose should be based upon the INR and NOT the Pro Time. Blood specimen (specimen) BLOOD SPECIMEN / Unknown 02/27/2016 8:45 EDT 02/27/2016 8:54 EDT Gulshan Drummond MD PhD HEMATO LOGY & PF4 ORDERABLES [facility] [address] [place] [address] * HEMAGRAM (02/27/2016 8:45 EDT) WBC 6.47 4.0 - 10.4 K/cmm 02/27/2016 8:57 EDT [facility] RBC 4.51 4.36 - 5.78 M/cmm 02/27/2016 8:57 EDT [facility] Hemoglobin 14.7 13.8 - 17.3 gm/dl 02/27/2016 8:57 EDT [facility] HCT 41.7 39.5 - 50.2 % 02/27/2016 8:57 EDT [facility] MCV 93 81 - 95 fl 02/27/2016 8:57 EDT [facility] MCH 32.6 27.6 - 33.0 pg 02/27/2016 8:57 EDT [facility] MCHC 35.3 32.8 - 36.4 gm/dl 02/27/2016 8:57 T [facility] RDW-CV 13.1 11.8 - 14.1 % 02/27/2016 8:57 EDT [facility] RDW-SD 44.0 36.5 - 45.9 fl 02/27/2016 8:57 EDT [facility] PLT 176 141 - 377 K/cmm 02/27/2016 8:57 EDT [facility] MPV 10.7 9.5 - 12.7 fl 02/27/2016 8:57 EDT [facility] Blood specimen (specimen) BLOOD SPECIMEN / Unknown 02/27/2016 8:45 EDT 02/27/2016 8:54 EDT Gulshan Drummond MD PhD HEMATO LOGY & PF4 ORDERABLES [facility] [address] [place] [address] * ELECTROLYTES (02/27/2016 8:45 EDT) Sodium 142 136 - 145 mEq/L 02/27/2016 9:13 EDT [facility] Potassium 4.7 3.5 - 5.0 mEq/L 02/27/2016 9:13 EDT [facility] Chloride 103 96 - 110 mEq/L 02/27/2016 9:13 EDT [facility] CO2 27 22 - 32 mEq/L 02/27/2016 9:13 EDT [facility] Comment:Note new reference r hong 02/19/16 Blood specimen (specimen) BLOOD SPECIMEN / Unknown 02/27/2016 8:45 EDT 02/27/2016 8:54 EDT Gulshan Drummond MD PhD CHEMIS TRY & BLOOD GAS ORDERABLES Performing Organization Address [facility] de Phone Number [facility] [address] [place] [address] * CREATININE (02/27/2016 8:45 EDT) Creatinine 0.69 0.66 - 1.25 mg/dl 02/27/2016 9:13 EDT [facility] GFR, Calculated 93 >60 ml/min/1.7 3m2 02/27/2016 9:13 EDT [facility] Comment: eGFR calculated using CKD-EPI equation for non Americans. Multiply eGFR by 1.16 for Americans. Blood specimen (specimen) BLOOD SPECIMEN / Unknown 02/27/2016 8:45 EDT 02/27/2016 8:54 EDT Gulshan Drummond MD PhD CHEMIS TRY & BLOOD GAS ORDERABLES Performing Organization Address [facility] Co de Phone Number [facility] [address] [place] [address] * BUN (02/27/2016 8:45 EDT) BUN 17 10 - 26 mg/dl 02/27/2016 9:13 EDT [facility] Blood specimen (specimen) BLOOD SPECIMEN / Unknown 02/27/2016 8:45 EDT 02/27/2016 8:54 EDT Gulshan Drummond MD PhD CHEMIS TRY & BLOOD GAS ORDERABLES [facility] [address] [place] [address] * EKG 12-LEAD (02/27/2016 8:08 EDT) 02/27/2016 8:08 EDT Narrative [facility] EKG - 02/28/2016 9:01 EDT ? [facility] ? Test Date: ?2016-02-27 Pat Name: ? NABIL IGLESIAS ? Department: ?? [facility] ? Room: ? DA7814 Gender: ? M ?Wig Dresser: ?? [id number] : ?1940 ? Requested By: MARCIA Boo Order Number: [id number] ? Julia WRIGHT: ?? BRAYAN CUENCA MD ? Measurements Intervals ?[place] ? Rate: ? 69 ? P: ?147 AR: ? 134 ?QRS: ?-67 QRSD: ? 160 [...] Note Brayan Cuenca MD - 02/28/2016 [facility] Test Date: 2016-02-27 Pat Name: NABIL IGLESIAS Department: [facility] Room: [id number] Gender: M Wig Dresser: [id number] : 1940 Requested By: MARCIA Boo Order Number: [id number] [place] MD: BRAYAN CUENCA MD Measurements Intervals [place] Rate: 69 P: 147 AR: 134 QRS: -67 QRSD: 160 T: -59 QT: 434 QTc: 467 Interpretive Statements ELECTRONIC ATRIAL PACEMAKER ELECTRONIC VENTRICULAR PACEMAKER Compared to ECG 02/27/2016 08:08:46 No significant changes I reviewed the tracing and have either agreed or edited the findings inthis report. Electronically Signed On 02-28-16 09:01:04 EDT by BRAYAN BEEBE. Navdeep Hurd MD CARDIAC ECG ORD ERABLES [facility] EKG documented in this encounter Visit Diagnoses [...] Reason: Other - Comment: pt already took HIM TECH, takes other meds at HS) 921 (Given [...] Reason: Other - Comment: pt already took HIM TECH, takes other meds at HS)2100 (Given - Provider: Mady Bruno RN) spironolactone (ALDACTONE) tablet 12.5 mg 12.5 mg, oral, DAILY, First dose on Thu02/27/16 at 1245, Until Discontinued, Routine 1306 (Not Given - Provider: Nneka Stuart RN - Reason: Other - Comment: pt already took HIM TECH, takes other meds at HS)2102 (Given - Provider: Mady Bruno RN) tamsulosin (FLOMAX) capsule 0.4 mg 0.4 mg, oral, DAILY, First dose on Thu02/27/16 at 1245, Until Discontinued, Routine 1306 (Not Given - Provider: Nneka Stuart RN - Reason: Other - Comment: pt already took HIM TECH, takes other meds at HS) 921 (Given [...] 02/02 documented in this encounter Care Teams Behavioral Specialist Relationship Specialty Start Date End Date Clem Olvera MD [address] [place] [id number] PCP - General 12/18/15 documented as of this encounter
--- OUTSIDE RECORDS SUMMARY | 2023-11-19 08:21 | XMS_ITS | Encounter Summary ---
Author Organization [facility] Address [address] [place] [address] Care Team Providers Care Tree Deadener Name Role Phone Clem Olvera MD Primary Care Provider [phone] Encounter Details Date Type Department Care Team (Late st Contact Info) Description 03/16/[address] [facility] Cardiology Clinic [address] [place] [address] Ronal Avelar, JADON AV block, 2nd degree [...] Laterality Modality Device Narrative 03/24/2019 10:[address] [facility] Cardiology Device Visit Living Skills Advisor: Power Fingerprintingtronic Device Type: SITE MEDICAL DIRECTOR-D Service: Remote ? Indication: ICMO Battery Longevity: [...] Miguel Ángel George APRN Miguel Ángel George HOUSE PIPING INSPECTOR CV IMPLANTABLE CARDI AC DEVICE documented in this encounter Visit Diagnoses Diagnosis AV block, 2nd degree- Primary Other second degree atrioventricular block documented in this encounter Care Teams Tree Deadener Relationship Specialty Start Date End Date Clem Olvera MD [address] [place] [id number] PCP - General 12/18/15 documented as of this encounter
--- OUTSIDE RECORDS SUMMARY | 2023-11-19 08:21 | XMS_ITS | Encounter Summary ---
Author Organization [facility] Address [address] [place] [address] Care Team Providers Care Transportation Dispatcher Name Role Phone Clem Olvera MD Primary Care Provider [phone] Reason for Referral * Cardiology (3 - 10 Business Days) - Closed Specialty Diagnoses / Procedures 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.] 8 EDT Narrative 02/27/2016 15:17 EDT *Cardiology* [address] [place] [address] Lead Revision (Report amended ) Patient: Nabil Iglesias ?Study Date: ?02/27/2016 ? Accession #: ? [id number] : ? 1940 Referring: Clem Olvera Attending: [...] 0.35 glide wire a Nick MENDOZAW 6F ([facility]) 6 mm-40 mm balloon dilation still could [...] Venograms were performed in the MOORE and SAMOAN projections and a suitable mid-lateral LV branch [...] fascia. The leads were connected to a HEAD PORTER-D device. Device and Lead detail in table [...] Implanted device: Medtronic - Viva Quad XT HEAD PORTER-D DF4 - Serial number: [id number] Explanted device: Medtronic - Viva XT HEAD PORTER-D DF4 - Serial number: [id number]. LEAD PARAMETERS + + + + + [...] + + + + + Serial number [id number] ? [id number] ?? [id number] ? + + + + [...] Gulshan Drummond MD - 05/12/2016 *Cardiology* [address] [place] [address] Lead Revision (Report amended ) Patient: Nabil Iglesias Study Date: 02/27/2016 : 1940 Referring: Clem Olvera Attending: Gulshan Drummond [...] therefore over an 0.35 glide wire a TriHealthW 6F ([facility]) 6 mm-40 mm balloon dilation still could [...] Venograms were performed in the MOORE and SAMOAN projections and a suitable mid-lateral LV branch [...] fascia. The leads were connected to a HEAD PORTER-D device. Device and Lead detail in table [...] Implanted device: Medtronic - Viva Quad XT HEAD PORTER-D DF4 - Serial number: [id number] Explanted device: Medtronic - Viva XT HEAD PORTER-D DF4 - Serial number: [id number]. LEAD PARAMETERS + + + + + + Lead # 1 2 3 4 + + + + + + Chamber RA RV LV LV + + + + + + Date 07/19/2002 07/18/2013 02/27/2016 07/18/2013 implanted + + + + + + Model St. Esa Medtronic Medtronic Enpath information [id number] Attain Epicardial Performa 4298 + + + + + + Serial number [id number] + + + + + + [...] situ documented in this encounter Care Teams Transportation Dispatcher Relationship Specialty Start Date End Date Clem Olvera MD [address] [place] [address] PCP - General 12/18/15 documented as of this encounter
--- OUTSIDE RECORDS SUMMARY | 2023-11-19 08:21 | XMS_ITS | Encounter Summary ---
Author Organization [facility] Address [address] [place] [address] Care Team Providers Care Staff Reporter Name Role Phone Unavailable Primary Care Provider Unavailabl e Encounter Details Date Type Department Care Team (Late st Contact Info) Description 05/06/2001 Results Only [facility] conversion [address] [place] [address] Hernandez Partida MD [address] [place] [phone] Social History Tobacco Use Types Packs/Day Years [...] is submitted entirely in cassette (B). ??(Naty Caal)/[facility] End of Report [facility] 05/06/2001 05/07/2001 9:2 5 EST Hernandez Partida MD PATHOLOGY ORDERABLES [facility] [address] [place] [address] documented in this encounter Visit Diagnoses Not on filedocumented in this encounter
--- OUTSIDE RECORDS SUMMARY | 2023-11-19 08:22 | XMS_ITS | Encounter Summary ---
[place] [address] Care Team Providers Care Paper Steamer Name Role Phone Donny Cooper MD Primary Care Provider [phone] Encounter Details Date Type Department Care Team (Latest Contact Info) Description 01/03/2023 10:00 AM EDT - 01/03/2023 11:59 PM EDT Hospital Encounter [place] [address] Discharge Disposition: Home Social History Tobacco Use [...] AM EDT Hospital Encounter [place] [address] Arrived documented as of this encounter Procedures [...] on filedocumented in this encounter Care Teams Paper Steamer Relationship Specialty Start Date End Date Donny Cooper MD [address] [place] [address] PCP - General Family Medicine 02/25/19 documented as of this encounter
--- OUTSIDE RECORDS SUMMARY | 2023-11-19 08:22 | XMS_ITS | Encounter Summary ---
[place] [address] Care Team Providers Care Biztalk Administrator Name Role Phone Donny Cooper MD Primary Care Provider [phone] Encounter Details Date Type Department Care Team (Late st Contact Info) Description 06/14/2020 Telephone Cardiology at [address] [phone] Nhung Briggs Social History Tobacco Use Types [...] He would like to be seen at [facility]. Email sent to Brittaney Hernandez at [facility] asking her to reach out to pt to set up the appt with either Dr. Arguelles or LANG Albert. Nhung Allen Electrophysiology Scheduling [id number] option 2 documented in this encounter Plan of Treatment Upcoming Encounters Date Type Department Care Team (Late st Contact Info) Description 02/02/2024 10:00 AM EDT Hospital Encounter Non-[place] [address] Arrived documented as of this encounter Visit Diagnoses Not on filedocumented in this encounter Care Teams Biztalk Administrator Relationship Specialty Start Date End Date Donny Cooper MD [address] [place] [address] PCP - General Family Medicine 02/25/19 documented as of this encounter
--- OUTSIDE RECORDS SUMMARY | 2023-11-19 08:22 | XMS_ITS | Encounter Summary ---
[facility] [place] [address] Care Team Providers Care Pusher Operator Name Role Phone Marques Martinez MD Primary Care Provider [phone] Encounter Details Date Type Department Care Team (Late st Contact Info) Description 03/30/2010 [place] [address] Javier Barajas MD [facility] DR [place] [address] Social History Tobacco Use Types Packs/Day Years [...] AM EDT Hospital Encounter Non-[place] [address] Arrived documented as of this encounter Procedures [...] AM EST Jairon Fenton MD CHEMISTRY ORDERABLES [facility] * (ABNORMAL) CREATININE, SERUM (04/01/2010 6:09 [...] Fenton MD CHEMISTRY ORDERABLES Performing Organization Address [facility] de Phone Number CERIVIS SHERENNIUM * BUN (04/01/2010 6:09 AM EST) BUN 12 10 - 20 mg/dL CERNER MILLENNIUM Blood specimen (specimen) 04/01/2010 6:09 AM EST 04/01/2010 6:09 AM EST Jairon Fenton MD CHEMISTRY ORDERABLES Performing Organization Address [facility] de Phone Number CERNER CHRISTOSENNIUM * (ABNORMAL) [...] MD HEMATOLOGY ORDERABLE S Performing Organization Address [facility] Co de Phone Number [...] Fenton MD CHEMISTRY ORDERABLES Performing Organization Address [facility] Phone Number CERIVIS MILLENNIUM * ELECTROLYTE [...] Fenton MD CHEMISTRY ORDERABLES Performing Organization Address [facility] Co de Phone Number CERNER MILLENNIUM * CREATININE, SERUM (03/30/2010 6:05 PM EST) Creatinine 0.87 0.80 - 1.50 mg/dL [facility] Estimated GFR >60 >=60 [facility] Comment: The National Kidney Disease Education Program [...] Fenton MD CHEMISTRY ORDERABLES Performing Organization Address [facility] Co de Phone Number [facility] * BUN (03/30/2010 6:05 PM EST) BUN 18 10 - 20 mg/dL [facility] Blood specimen (specimen) 03/30/2010 6:05 PM EST 03/30/2010 6:13 PM EST Jairon Fenton MD CHEMISTRY ORDERABLES Performing Organization Address [facility]/ZIP Co de Phone Number [facility] * APTT (03/30/2010 6:05 PM EST) PTT 26 25 - 37 sec [facility] Comment: Recommended therapeutic PTT range for full dose unfractionated heparin is 80-114 seconds. Blood specimen (specimen) 03/30/2010 6:05 PM EST 03/30/2010 6:14 PM EST Jairon Fenton MD HEMATOLOGY ORDERABLE S Performing Organization Address [facility] Co de Phone Number [facility] * PROTIME-INR (03/30/2010 6:05 PM EST) PT 14.2 12.3 - 14.7 sec [facility] Comment: [facility] Transfusion Committee Guidelines: INR less than 2.0, PTT less than OR equal to 43.5 seconds, or Fibrinogen greater than or equal to 100 mg/dl indicate adequate procoagulant activity for hemostasis in patients without underlying bleeding disorders. INR 1.1 0.9 - 1.1 [facility] Blood specimen (specimen) 03/30/2010 6:05 PM EST 03/30/2010 6:14 PM EST Jairon Fenton MD HEMATOLOGY ORDERABLE S Performing Organization Address [facility] Co de Phone Number [...] EST Jairon Fenton MD HEMATOLOGY ORDERABLE S [facility] CHRISTOSENNIUM * (ABNORMAL) CBC (03/30/2010 6:05 PM EST) [...] BANK LAB ORDER PRECIOUS Performing Organization Address City/[facility]/ZIP Co de Phone Number [facility] CHRISTOSENNIUM * REFLEX LAB-ABO/RH (03/30/2010 3:17 PM EST) ABORH Type A Pos CERNER MILLENNIUM Blood specimen (specimen) 03/30/2010 3:17 PM EST 03/30/2010 3:17 PM EST Javier Barajas MD BLOOD BANK LAB ORDER PRECIOUS [facility] * ELECTROLYTE PANEL (03/30/2010 2:50 PM [...] Barajas MD CHEMISTRY ORDERABLES Performing Organization Address [facility] Co de Phone Number [facility] * CREATININE, SERUM (03/30/2010 2:50 PM EST) Creatinine 0.85 0.80 - 1.50 mg/dL [facility] Estimated GFR >60 >=60 [facility] Comment: The National Kidney Disease [...] Barajas MD CHEMISTRY ORDERABLES Performing Organization Address City/[facility]/ZIP Co de Phone Number [facility] * BUN (03/30/2010 2:50 PM EST) BUN 18 10 - 20 mg/dL [facility] Blood specimen (specimen) 03/30/2010 2:50 PM EST 03/30/2010 3:05 PM EST Javier Barajas MD CHEMISTRY ORDERABLES Performing Organization Address [facility] Phone Number [facility] * GLUCOSE, RANDOM (03/30/2010 2:50 PM EST) Glucose Lvl 95 <=199 mg/dL [facility] Comment:Diabetes: >=200 mg/d L plus symptoms Blood specimen (specimen) 03/30/2010 2:50 PM EST 03/30/2010 3:05 PM EST Javier Barajas MD CHEMISTRY ORDERABLES Performing Organization Address [facility] Phone Number [facility] * APTT (03/30/2010 2:50 PM EST) PTT 25 25 - 37 sec [facility] Comment: Recommended therapeutic PTT range for full dose unfractionated heparin is 80-114 seconds. Blood specimen (specimen) 03/30/2010 2:50 PM EST 03/30/2010 3:06 PM EST Javier Barajas MD HEMATOLOGY ORDERABLE S Performing Organization Address [facility] Phone Number [facility] * PROTIME-INR (03/30/2010 2:50 PM EST) PT 14.1 12.3 - 14.7 sec [facility] Comment: [facility] Transfusion Committee Guidelines: INR less than 2.0, PTT less than OR equal to 43.5 seconds, or Fibrinogen greater than or equal to 100 mg/dl indicate adequate procoagulant activity for hemostasis in patients without underlying bleeding disorders. INR 1.1 0.9 - 1.1 [facility] Blood specimen (specimen) 03/30/2010 2:50 [...] on filedocumented in this encounter Care Teams Pusher Operator Relationship Specialty Start Date End Date Marques Martinez MD [address] [place] [address] PCP - General 04/01/10 04/08/11 documented as of this encounter
--- OUTSIDE RECORDS SUMMARY | 2023-11-19 08:22 | XMS_ITS | Encounter Summary ---
Author Organization [facility] [place] [address] Care Team Providers Care Project Management Manager Name Role Phone Marques Martinez MD Primary Care Provider Encounter Details Date Type Department Care Team (Late st Contact Info) Description 09/11/2010 Orders [place] [address] Jairon Fenton MD [facility] [place] [address] Fracture of patella, left, closed (Primary Dx) [...] AM EDT Hospital Encounter Non-[place] [address] Arrived documented as of this encounter Visit Diagnoses Diagnosis Fracture of patella, left, closed- Primary Closed fracture of patella documented in this encounter Care Teams Project Management Manager Relationship Specialty Start Date End Date Marques Martinez MD [address] [place] [address] PCP - General 04/01/10 04/08/11 documented as of this encounter
--- OUTSIDE RECORDS SUMMARY | 2023-11-19 08:22 | XMS_ITS | Encounter Summary ---
Author Organization [facility] [place] [address] Care Team Providers Care Complaint Operator Name Role Phone Marques Martinez MD Primary Care Provider [phone] Reason for Visit * Reason Comments Follow Up Fracture PATELLA FX DOI 03/23 10 Encounter Details Date Type Department Care Team (Late st Contact Info) Description 10/09/2010 12:40 PM EDT Office [place] [address] Jairon Gustafson MD [facility] [place] [address] Jose Francisco Bee PA [facility] [place] [address] Quadriceps tendon rupture (Primary Dx) Discharge Disposition: [...] AM EDT Hospital Encounter Non-Invasive [place] [address] Arrived documented as of this encounter Visit Diagnoses Diagnosis Quadriceps tendon rupture- Primary Sprain and strain of other specified sites of knee and leg documented in this encounter Care Teams Complaint Operator Relationship Specialty Start Date End Date Marques Martinez MD [address] [place] [address] PCP - General 04/01/10 04/08/11 documented as of this encounter
--- OUTSIDE RECORDS SUMMARY | 2023-11-19 08:22 | XMS_ITS | Encounter Summary ---
Author Organization [facility] [place] [address] Care Team Providers Care Biomedical Photographer Name Role Phone Marques Martinez MD Primary Care Provider [phone] Encounter Details Date Type Department Care Team (Late st Contact Info) Description 06/12/2010 2:10 PM EST Office [place] [phone] Jairon Fenton MD [facility] [place] [address] Discharge Disposition: Home Social History Tobacco Use [...] AM EDT Hospital Encounter Non-[place] [address] Arrived documented as of this encounter Visit Diagnoses Not on filedocumented in this encounter Care Teams Biomedical Photographer Relationship Specialty Start Date End Date Marques Martinez MD [address] [place] [address] PCP - General 04/01/10 04/08/11 documented as of this encounter
--- OUTSIDE RECORDS SUMMARY | 2023-11-19 08:22 | XMS_ITS | Encounter Summary ---
[place] [address] Care Team Providers Care Senior Communications Specialist Name Role Phone Donny Cooper MD Primary Care Provider [phone] Encounter Details Date Type Department Care Team (Latest Contact Info) Description 07/02/2023 10:00 AM EST - 07/02/2023 11:59 PM EST Hospital Encounter Non-[place]vasive [place] [address] Discharge Disposition: Home Social History Tobacco Use [...] AM EDT Hospital Encounter Non-[place]vasive [place] [address] Arrived documented as of this encounter Visit Diagnoses Not on filedocumented in this encounter Care Teams Senior Communications Specialist Relationship Specialty Start Date End Date Donny Cooper MD [address] [place] [address] PCP - General Family Medicine 02/25/19 documented as of this encounter
--- OUTSIDE RECORDS SUMMARY | 2023-11-19 08:22 | XMS_ITS | Encounter Summary ---
Author Organization [facility] [place] [address] Care Team Providers Care Recreational Vehicle Resort Manager Name Role Phone Donny Cooper MD Primary Care Provider [phone] Encounter Details Date Type Department Care Team (Latest Contact Info) Description 06/25/2021 3:23 PM EST - 06/25/2021 11:59 PM EST Hospital Encounter Non[place] [address] Alber Seals MD [facility] [address] Cardiomyopathy, primary Discharge Disposition: Home Social History [...] AM EDT Hospital Encounter Non-[place] [address] Arrived documented as of this encounter Procedures Procedure Name Priority Date/Time Associated Diagnosis Comments ICD INTERROGATION 3 MONTH Routine 06/25/2021 3:24 PM EST Cardiomyopathy, primary documented in this encounter Results * ICD INTERROGATION 3 MONTH (06/25/2021 3:24 PM EST) Anatomical Region Laterality Modality Other Narrative 06/25/2021 3:42 PM EST Cardiac Device Remote Monitoring Report Summary Medtronic Carelink Device: WIRE BRUSHER-D Model: VIVA QUAD Battery: 2.95 v, estimated longevity 2 years 6 months Pacing percentage: 90% WIRE BRUSHER paced Events: Presenting rhythm: atrial paced/biventricular paced Frequent PVC's Impression Normal device function Follow Up As per schedule - in-clinic and remote ALBER SEALS MD 06/25/21 Alber Seals MD IMPLANTABLE CARDIAC DEVICE documented in this encounter Visit Diagnoses Diagnosis Cardiomyopathy, primary Other primary cardiomyopathies documented in this encounter Care Teams Recreational Vehicle Resort Manager Relationship Specialty Start Date End Date Donny Cooper MD [address] [place] [address] PCP - General Family Medicine 02/25/19 documented as of this encounter
--- OUTSIDE RECORDS SUMMARY | 2023-11-19 08:22 | XMS_ITS | Encounter Summary ---
Author Organization [facility] [place] [address] Care Team Providers Care Family Coach Name Role Phone Donny Cooper MD Primary Care Provider [phone] Encounter Details Date Type Department Care Team (Latest Contact Info) Description 06/13/2020 12:35 PM EST - 06/13/2020 11:59 PM EST Hospital Encounter Non-Invasive [place] [address] Alber Seals MD [facility] [place] [address] Cardiomyopathy, primary Discharge Disposition: Home Social History [...] AM EDT Hospital Encounter Non-Invasive [place] [address] Arrived documented as of this encounter Procedures Procedure Name Priority Date/Time Associated Diagnosis Comments ICD INTERROGATION 3 MONTH Routine 06/13/2020 12:36 PM EST Cardiomyopathy, primary documented in this encounter Results * ICD INTERROGATION 3 MONTH (06/13/2020 12:36 PM EST) Anatomical Region Laterality Modality Other Narrative 06/14/2020 10:38 AM EST Cardiac Device Remote Monitoring Report Summary Medtronic [employer] 06/14/20 Device: GEOLOGICAL SPECIALIST-D Model: VIVA QUAD Battery: 2.96 v, estimated longevity 3 years, 11 months Pacing percentage: 78% ventricular paced Events: The presenting rhythm is atrial paced with biventricular pacing and frequent ventricular premature contractions No significant arrhythmias Impression Normal device function; suboptimal GEOLOGICAL SPECIALIST pacing likely secondary to frequent PVCs. Should consider in clinic follow-up for further evaluation Follow Up As per schedule - in-clinic and remote ALBER SEALS MD Alber Seals MD IMPLANTABLE CARDIAC DEVICE documented in this encounter Visit Diagnoses Diagnosis Cardiomyopathy, primary Other primary cardiomyopathies documented in this encounter Care Teams Family Coach Relationship Specialty Start Date End Date Donny Cooper MD [address] [place] [address] PCP - General Family Medicine 02/25/19 documented as of this encounter
--- OUTSIDE RECORDS SUMMARY | 2023-11-19 08:22 | XMS_ITS | Encounter Summary ---
Author Organization [facility] [place] [address] Care Team Providers Care Picking Crew Supervisor Name Role Phone Clem Olvera MD Primary Care Provider [phone] Reason for Visit * Reason Comments Follow Up Fracture SP PATELLA FX DO12/12 DOI 03/30/10 Encounter Details Date Type Department Care Team (Late st Contact Info) Description 04/09/2011 1:30 PM EST Office [place] [address] Jairon Gustafson MD [facility] [place] [address] Jose Francisco Bee PA [facility] [place] [address] Patella fracture (Primary Dx) Discharge Disposition: Home [...] AM EDT Hospital Encounter [place] [address] Arrived documented as of this encounter Visit Diagnoses Diagnosis Patella fracture- Primary Closed fracture of patella documented in this encounter Care Teams Picking Crew Supervisor Relationship Specialty Start Date End Date Clem Olvera MD [address] [place] [address] PCP - General 04/09/11 02/24/19 documented as of this encounter
--- OUTSIDE RECORDS SUMMARY | 2023-11-19 08:22 | XMS_ITS | Encounter Summary ---
Author Organization [facility] [place] [address] Care Team Providers Care Computer Bookkeeper Name Role Phone Marques Martinez MD Primary Care Provider [phone] Encounter Details Date Type Department Care Team (Late st Contact Info) Description 10/09/2010 11:35 AM EDT - 10/09/2010 11:59 PM EDT Hospital Encounter XRay at [address] [place] [address] Social History Tobacco Use Types Packs/Day Years [...] AM EDT Hospital Encounter Non-Invasive Cardiology Lab [facility] [place] [address] Arrived documented as of this encounter Visit Diagnoses Not on filedocumented in this encounter Care Teams Computer Bookkeeper Relationship Specialty Start Date End Date Marques Martinez MD [address] [place] [address] PCP - General 04/01/10 04/08/11 documented as of this encounter
--- OUTSIDE RECORDS SUMMARY | 2023-11-19 08:22 | XMS_ITS | Encounter Summary ---
[place] [address] Care Team Providers Care Coal Pulverizer Operator Name Role Phone Marques Martinez MD Primary Care Provider [phone] Encounter Details Date Type Department Care Team (Late st Contact Info) Description 06/12/2010 2:00 PM EST Procedure visit [place] [address] Social History Tobacco Use Types Packs/Day Years [...] AM EDT Hospital Encounter [place] [address] Arrived documented as of this encounter Visit Diagnoses Not on filedocumented in this encounter Care Teams Coal Pulverizer Operator Relationship Specialty Start Date End Date Marques Martinez MD [address] [place] [address] PCP - General 04/01/10 04/08/11 documented as of this encounter
--- OUTSIDE RECORDS SUMMARY | 2023-11-19 08:22 | XMS_ITS | Encounter Summary ---
[place] [address] Care Team Providers Care Fisher Trap Name Role Phone Marques Martinez MD Primary Care Provider [phone] Encounter Details Date Type Department Care Team (Late st Contact Info) Description 10/03/2010 [place] [address] Marina Orosco, JADON Social History Tobacco Use [...] AM EDT Hospital Encounter Non-Invasive [place] [address] Arrived documented as of this encounter Visit Diagnoses Not on filedocumented in this encounter Care Teams Fisher Trap Relationship Specialty Start Date End Date Marques Martinez MD [address] [place] [address] PCP - General 04/01/10 04/08/11 documented as of this encounter
--- OUTSIDE RECORDS SUMMARY | 2023-11-19 08:22 | XMS_ITS | Encounter Summary ---
[place] [address] Care Team Providers Care Machine Operator Slitter Technician Name Role Phone Donny Cooper MD Primary Care Provider [phone] Encounter Details Date Type Department Care Team (Latest Contact Info) Description 04/08/2022 10:00 AM EST - 04/08/2022 11:59 PM [facility] Hospital Encounter Non-Invasive [place] [address] Discharge Disposition: Home Social History Tobacco Use [...] AM EDT Hospital Encounter Non-Invasive [place] [address] Arrived documented as of this [...] on filedocumented in this encounter Care Teams Machine Operator Slitter Technician Relationship Specialty Start Date End Date Donny Cooper MD [address] [place] [address] PCP - General Family Medicine 02/25/19 documented as of this encounter
--- OUTSIDE RECORDS SUMMARY | 2023-11-19 08:22 | XMS_ITS | Encounter Summary ---
[place] [address] Care Team Providers Care Manager Of Case Management Name Role Phone Donny Cooper MD Primary Care Provider [phone] Encounter Details Date Type Department Care Team (Latest Contact Info) Description 07/07/2022 10:00 AM EST - 07/07/2022 11:59 PM EST Hospital Encounter [place] [address] Discharge Disposition: Home Social History Tobacco Use [...] AM EDT Hospital Encounter [place] [address] Arrived documented as of this [...] on filedocumented in this encounter Care Teams Manager Of Case Management Relationship Specialty Start Date End Date Donny Cooper MD [address] [place] [address] PCP - General Family Medicine 02/25/19 documented as of this encounter
--- OUTSIDE RECORDS SUMMARY | 2023-11-19 08:22 | XMS_ITS | Encounter Summary ---
[place] [address] Care Team Providers Care Liability Claims Adjuster Name Role Phone Donny Cooper MD Primary Care Provider [phone] Encounter Details Date Type Department Care Team [...] AM EDT Hospital Encounter Non-[place]vasive [place] [address] Arrived documented as of this encounter Visit Diagnoses Not on filedocumented in this encounter Care Teams Liability Claims Adjuster Relationship Specialty Start Date End Date Donny Cooper MD [address] [place] [address] PCP - General Family Medicine 02/25/19 documented as of this encounter
--- OUTSIDE RECORDS SUMMARY | 2023-11-19 08:22 | XMS_ITS | Encounter Summary ---
[place] [address] Care Team Providers Care Supervisor Laundry Name Role Phone Donny Cooper MD Primary Care Provider [phone] Encounter Details Date Type Department Care Team (Late st Contact Info) Description 03/17/2019 Telephone Cardiology at [address] [address] Sheri Quinn LNA Social History [...] Miscellaneous Notes * Telephone Encounter - Sheri Mojiac LNA - 03/17/2019 11:46 AM EST Medication list reviewed with [facility] list. Please review with patient at next clinic visit. documented in this encounter Plan of Treatment Upcoming Encounters Date Type Department Care Team (Late st Contact Info) Description 02/02/2024 10:00 AM EDT Hospital Encounter [place] [address] Arrived documented as of this encounter Visit Diagnoses Not on filedocumented in this encounter Care Teams Supervisor Laundry Relationship Specialty Start Date End Date Donny Cooper MD [address] [place] [address] PCP - General Family Medicine 02/25/19 documented as of this encounter
--- OUTSIDE RECORDS SUMMARY | 2023-11-19 08:22 | XMS_ITS | Encounter Summary ---
Author Organization [facility] [place] [address] Care Team Providers Care Nutrition Intern Name Role Phone Donny Cooper MD Primary Care Provider [phone] Encounter Details Date Type Department Care Team (Latest Contact Info) Description 12/18/2020 11:57 AM EDT - 12/18/2020 11:59 PM EDT Hospital Encounter Non-Invasive Cardiology [place] [address] Maged Arguelles MD [facility] [place] [address] Cardiomyopathy, primary Discharge Disposition: Home Social History [...] AM EDT Hospital Encounter [place] [address] Arrived documented as of this encounter Procedures Procedure Name Priority Date/Time Associated Diagnosis Comments ICD INTERROGATION 3 MONTH Routine 12/18/2020 12:00 PM EDT Cardiomyopathy, primary documented in this encounter Results * ICD INTERROGATION 3 MONTH (12/18/2020 12:00 PM EDT) Anatomical Region Laterality Modality Other Narrative 12/23/2020 11:08 PM EDT MDT GOLF INSTRUCTOR-D remote reviewed. Normal device function. Inadequate GOLF INSTRUCTOR at 80%. Maged Arguelles MD [facility] Cardiac Electrophysiology 12/23/2020 11:06 PM Maged Arguelles MD IMPLANTABLE CARDIAC DEVICE documented in this encounter Visit Diagnoses Diagnosis Cardiomyopathy, primary Other primary cardiomyopathies documented in this encounter Care Teams Nutrition Intern Relationship Specialty Start Date End Date Donny Cooper MD [address] [facility] 1 [place] [address] PCP - General Family Medicine 02/25/19 documented as of this encounter
--- OUTSIDE RECORDS SUMMARY | 2023-11-19 08:22 | XMS_ITS | Encounter Summary ---
Author Organization [facility] [place] [address] Care Team Providers Care Case Mgr Name Role Phone Donny Cooper MD Primary Care Provider [phone] Encounter Details Date Type Department Care Team (Latest Contact Info) Description 10/03/2022 10:00 AM EDT Office Visit Cardiology at [address] [address] Eleno No, [place] [facility] [place] [address] Cardiomyopathy, primary; Presence of cardiac resynchronization therapy defibrillator (CRTS-D); Diaphragmatic stimulation by cardiac pacemaker, initial encounter [...] original note were not included. Cardiac Device CRTS-D Programming Evaluation Nabil Iglesias [id number] 10/03/2022 History: Mr. 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 LANG Wilcox 10/03/2022 documented in this encounter Plan of Treatment Upcoming Encounters Date Type Department Care Team (Late st Contact Info) Description 02/02/2024 10:00 AM EDT Hospital Encounter Non-Invasive [place] [address] Arrived documented as of this encounter Procedures Procedure Name Priority Date/Time Associated Diagnosis Comments EKG 12-LEAD Routine 10/03/2022 11:00 AM EDT Cardiomyopathy, primary Presence of cardiac resynchronization therapy defibrillator (CRTS-D) Diaphragmatic stimulation by cardiac pacemaker, initial encounter documented in this encounter Results * EKG 12 Lead (10/03/2022 11:00 AM EDT) Ventricular rate 74 BPM MUSE SYSTEM Atrial Rate 74 BPM MUSE SYSTEM P-R Interval 154 ms MUSE SYSTEM QRS Duration 162 ms MUSE SYSTEM Q-T Interval 470 ms MUSE SYSTEM QTC Calculated (Bezet) 521 ms MUSE SYSTEM Calculated P [place] 30 degrees MUSE SYSTEM Calculated R [place] -98 degrees MUSE SYSTEM Calculated T [place] 41 degrees MUSE SYSTEM INTERPRETATION Atrial-sense d [...] cardiomyopathies Presence of cardiac resynchronization therapy defibrillator (CRTS-D) Diaphragmatic stimulation by cardiac pacemaker, initial encounter documented in this encounter Care Teams Case Mgr Relationship Specialty Start Date End Date Donny Cooper MD [address] [facility] 1 [place] [address] PCP - General Family Medicine 02/25/19 documented as of this encounter
--- OUTSIDE RECORDS SUMMARY | 2023-11-19 08:22 | XMS_ITS | Encounter Summary ---
Author Organization [facility] [place] [address] Care Team Providers Care President Sales And Marketing Name Role Phone Marques Martinez MD Primary Care Provider [phone] Encounter Details Date Type Department Care Team (Late st Contact Info) Description 05/01/2010 3:10 PM EST Office [place] [phone] Jairon Fenton MD [facility] [place] [address] Discharge Disposition: Home Social History Tobacco Use [...] AM EDT Hospital Encounter Non-Invasive [place] [address] Arrived documented as of this encounter Visit Diagnoses Not on filedocumented in this encounter Care Teams President Sales And Marketing Relationship Specialty Start Date End Date Marques Martinze MD [address] [place] [address] PCP - General 04/01/10 04/08/11 documented as of this encounter
--- OUTSIDE RECORDS SUMMARY | 2023-11-19 08:22 | XMS_ITS | Encounter Summary ---
Author Organization [facility] [place] [address] Care Team Providers Care Flaker Operator Name Role Phone Donny Cooper MD Primary Care Provider [phone] Encounter Details Date Type Department Care Team (Late st Contact Info) Description 07/26/2019 Notes Only Cardiology at [address] [address] Maged Arguelles MD [facility] [place] [address] Social History Tobacco Use Types Packs/Day Years [...] his Medtronic biventricular ICD is reviewed. Suboptimal PRIVACY MANAGER at 84%. Normal device function. Awaiting Holter to assess PVC burden. Maged Arguelles MD [facility] Cardiac Electrophysiology 07/26/2019 9:04 AM documented in this encounter Plan of Treatment Upcoming Encounters Date Type Department Care Team (Late st Contact Info) Description 02/02/2024 10:00 AM EDT Hospital Encounter Non-Invasive [place] [address] Arrived documented as of this encounter Visit Diagnoses Not on filedocumented in this encounter Care Teams Flaker Operator Relationship Specialty Start Date End Date Donny Cooper MD [address] [place] [address] PCP - General Family Medicine 02/25/19 documented as of this encounter
--- OUTSIDE RECORDS SUMMARY | 2023-11-19 08:22 | XMS_ITS | Encounter Summary ---
[place] [address] Care Team Providers Care Problem Manager Name Role Phone Donny Cooper MD Primary Care Provider [phone] Encounter Details Date Type Department Care Team (Latest Contact Info) Description 04/03/2023 10:00 AM EST - 04/03/2023 11:59 PM [facility] Hospital Encounter [place] [address] Discharge Disposition: Home Social History Tobacco Use [...] AM EDT Hospital Encounter Non-[place] [address] Arrived documented as of this [...] on filedocumented in this encounter Care Teams Problem Manager Relationship Specialty Start Date End Date Donny Cooper MD [address] [place] [address] PCP - General Family Medicine 02/25/19 documented as of this encounter
--- OUTSIDE RECORDS SUMMARY | 2023-11-19 08:22 | XMS_ITS | Encounter Summary ---
[place] [address] Care Team Providers Care Artificial Marble Worker Name Role Phone Marques Martinez MD Primary Care Provider Encounter Details Date Type Department Care Team (Late st Contact Info) Description 05/01/2010 2:40 PM EST Procedure visit [place] [address] Social History Tobacco Use Types Packs/Day Years [...] AM EDT Hospital Encounter [place] [address] Arrived documented as of this encounter Visit Diagnoses Not on filedocumented in this encounter Care Teams Artificial Marble Worker Relationship Specialty Start Date End Date Marques Martinez MD [address] [place] [address] PCP - General 04/01/10 04/08/11 documented as of this encounter
--- OUTSIDE RECORDS SUMMARY | 2023-11-19 08:22 | XMS_ITS | Encounter Summary ---
[place] [address] Care Team Providers Care Air Tank Assembler Name Role Phone Donny Cooper MD Primary Care Provider [phone] Encounter Details Date Type Department Care Team (Latest Contact Info) Description 10/05/2022 10:00 AM EDT - 10/05/2022 11:59 PM EDT Hospital Encounter [place] [address] Discharge Disposition: Home Social History Tobacco Use [...] AM EDT Hospital Encounter [place] [address] Arrived documented as of this encounter Procedures [...] filedocumented in this encounter Care Teams Air Tank Assembler Relationship Specialty Start Date End Date Donny Cooper MD [address] [place] [address] PCP - General Family Medicine 02/25/19 documented as of this encounter
[2023-11-19 08:24] VITALS: BP 123/64; PULSE 63
[2023-11-24 08:06] VITALS: BP 120/63; PULSE 71
--- OUTSIDE RECORDS SUMMARY | 2023-11-24 08:11 | XMS_ITS | Encounter Summary ---
Author Organization [facility] Address [address] [place] [address] Care Team Providers Care Eligibility Services Representative Name Role Phone Clem Olvera MD Primary Care Provider [phone] Encounter Details Date Type Department Care Team (Late st Contact Info) Description 03/16/2019 Abstract [facility] Cardiology Clinic [address] [place] [address] Ronal Avelar, JADON AV block, 2nd degree [...] Laterality Modality Device Narrative 03/24/2019 10:30 EST [facility] Cardiology Device Visit Hydraulic Lift Driver: [employer] Device Type: PICKER AND SORTER LOAD AND UNLOAD-D Service: Remote ? 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
--- OUTSIDE RECORDS SUMMARY | 2023-11-24 08:11 | XMS_ITS | Referral Summary ---
Author Organization [facility] Address [address] [place] [address] Care Team Providers Care Check Weigher Name Role Phone Clem Olvera MD Primary Care Provider [phone] Allergies No known active allergies Medications Medication [...] Advance Directives For more information, please contact: [phone] * Full Code (Latest Code Status on File) Date Activated Date Inactivated Comments 02/27/2016 8:49 02/28/2016 15:40 Question Answer Comments Reason for decision includes: Full code consistent with overall plan of care Who participated in the discussion? Not Discusse d Care Teams Check Weigher Relationship Specialty Start Date End Date Clem Olvera MD [address] [place] [address] PCP - General 12/18/15
--- OUTSIDE RECORDS SUMMARY | 2023-11-24 08:11 | XMS_ITS | Clinical Summary ---
Author Organization [facility] Address [address] [place] [address] Care Team Providers Care Legal Operations Manager Name Role Phone Clem Olvera MD Primary Care Provider [phone] Allergies No known active allergies Medications Medication [...] PACEMAKER INSERTION 05/04/2002 - 05/03/20032013 second pacemaker [facility] Medical History Medical History Date Comments [...] Advance Directives For more information, please contact: [phone] * Full Code (Latest Code Status on File) Date Activated Date Inactivated Comments 02/27/2016 8:49 02/28/2016 15:40 Question Answer Comments Reason for decision includes: Full code consistent with overall plan of care Who participated in the discussion? Not Discusse d Care Teams Legal Operations Manager Relationship Specialty Start Date End Date Clem Olvera MD [address] [place] [address] PCP - General 12/18/15
--- OUTSIDE RECORDS SUMMARY | 2023-11-24 08:11 | XMS_ITS | Encounter Summary ---
Author Organization [facility] Address [address] [place] [address] Care Team Providers Care Mathematics Improvement Teacher Name Role Phone Clem Olvera MD Primary Care Provider [phone] Reason for Visit * Reason Onset Date Comments Other 04/04/2019 Transfer request for Pacer Care at [facility] Encounter Details Date Type Department Care Team (Late st Contact Info) Description 04/04/2019 Telephone [facility] Cardiology Clinic [address] [place] [address] Giselle Hill, PAPER FOLDING MACHINE OPERATOR Other (Transfer request for Pacer Care at [facility]) Social History Tobacco Use Types Packs/Day Years [...] 04/04/2019 1503 EST I went into the [employer] Website and released pt to [facility] Pacer Clinic as requested. * Telephone Encounter - Suze Reynoso - 04/04/2019 1342 EST PT WILL BE HAVING HIS PACER CARE DONE AT [facility], PLEASE RELEASE HIS REMOTE MONITORING SO THAT THEY CAN PICK IT UP documented in this encounter Plan of Treatment Not on file documented as of this encounter Visit Diagnoses Not on filedocumented in this encounter Care Teams Mathematics Improvement Teacher Relationship Specialty Start Date End Date Clem Olvera MD [address] [place] [address] PCP - General 12/18/15 documented as of this encounter
--- OUTSIDE RECORDS SUMMARY | 2023-11-24 08:11 | XMS_ITS | Encounter Summary ---
Author Organization [facility] Address [address] [place] [address] Care Team Providers Care Development Assistant Name Role Phone Clem Olvera MD Primary Care Provider [phone] Reason for Visit * Reason Onset Date Comments Appointment Related 10/23/2016 Check for fo llow up of pacer Encounter Details Date Type Department Care Team ([facility] Contact Info) Description 10/23/2016 Telephone [facility] Cardiology - [address] [place] [address] Pacemaker, Pace Appointment Related (Check [...] that Nabil had his pacemaker checked in [place] where they are for the winter. They have some back and are being followed by Dr. Hurd at [facility]. documented in this encounter Plan of Treatment Not on file documented as of this encounter Visit Diagnoses Not on filedocumented in this encounter Care Teams Development Assistant Relationship Specialty Start Date End Date Clem Olvera MD [address] [place] [address] PCP - General 12/18/15 documented as of this encounter
--- OUTSIDE RECORDS SUMMARY | 2023-11-24 08:12 | XMS_ITS | Encounter Summary ---
Author Organization [facility] [place] [address] Care Team Providers Care Physical Therapist Clinic Director Name Role Phone Donny Cooper MD Primary Care Provider [phone] Encounter Details Date Type Department Care Team (Latest Contact Info) Description 10/03/2022 10:00 AM EDT Office Visit Cardiology at [address] [address] Eleno No, [place] [facility] [place] [address] Cardiomyopathy, primary; Presence of cardiac resynchronization therapy defibrillator (MILL SET UP-D); Diaphragmatic stimulation by cardiac pacemaker, initial encounter [...] original note were not included. Cardiac Device MILL SET UP-D Programming Evaluation Nabil Iglesias [id number] 10/03/2022 History: Mr. 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 [...] AM EDT Hospital Encounter [place] [address] Arrived documented as of this encounter Procedures Procedure Name Priority Date/Time Associated Diagnosis Comments EKG 12-LEAD Routine 10/03/2022 11:00 AM EDT Cardiomyopathy, primary Presence of cardiac resynchronization therapy defibrillator (MILL SET UP-D) Diaphragmatic stimulation by cardiac pacemaker, initial encounter documented in this encounter Results * EKG 12 Lead (10/03/2022 11:00 AM EDT) Ventricular rate 74 BPM MUSE SYSTEM Atrial Rate 74 BPM MUSE SYSTEM P-R Interval 154 ms MUSE SYSTEM QRS Duration 162 ms MUSE SYSTEM Q-T Interval 470 ms MUSE SYSTEM QTC Calculated (Bezet) 521 ms MUSE SYSTEM Calculated P [place] 30 degrees MUSE SYSTEM Calculated R [place] -98 degrees MUSE SYSTEM Calculated T [place] 41 degrees MUSE SYSTEM INTERPRETATION Atrial-sense d [...] cardiomyopathies Presence of cardiac resynchronization therapy defibrillator (MILL SET UP-D) Diaphragmatic stimulation by cardiac pacemaker, initial encounter documented in this encounter Care Teams Physical Therapist Clinic Director Relationship Specialty Start Date End Date Donny Cooper MD [address] [facility] 1 [place] [address] PCP - General Family Medicine 02/25/19 documented as of this encounter
--- OUTSIDE RECORDS SUMMARY | 2023-11-24 08:12 | XMS_ITS | Encounter Summary ---
Author Organization [facility] [place] [address] Care Team Providers Care Drilling Machine Operator Name Role Phone Marques Martinez MD Primary Care Provider [phone] Encounter Details Date Type Department Care Team (Late st Contact Info) Description 09/11/2010 Orders [place] [address] Jairon Fenton MD [facility] [place] [address] Fracture of patella, left, closed (Primary Dx) [...] AM EDT Hospital Encounter Non-Invasive [place] [address] Arrived documented as of this encounter Visit Diagnoses Diagnosis Fracture of patella, left, closed- Primary Closed fracture of patella documented in this encounter Care Teams Drilling Machine Operator Relationship Specialty Start Date End Date Marques Martinez MD [address] [place] [address] PCP - General 04/01/10 04/08/11 documented as of this encounter
--- OUTSIDE RECORDS SUMMARY | 2023-11-24 08:12 | XMS_ITS | Encounter Summary ---
Author Organization [facility] Address [address] [place] [address] Care Team Providers Care Maintenance Controller Name Role Phone Clem Olvera MD Primary Care Provider [phone] Reason for Referral * Cardiology (3 - 10 Business Days) - Closed Specialty Diagnoses / Procedures [facility] To Contact Diagnoses ICD (implantable cardioverter-defibrillator) battery depletion Pacemaker lead failure, initial encounter 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 Procedures IMPLANTABLE CARDIAC DEFIBRILLATOR PROCEDURE Navdeep Hurd MD [address] [place], [place] [address] [address] [place] [address] Referral ID Status Reason Start Date Expiration Date Visits Re quested Visits Authorized [id number] Closed 02/13/2016 1 1 Encounter Details Date Type Department Care Team (Latest Contact Info) Description 02/13/2016 Pre-Procedure Orders Encounter [facility] [address], [place] [address] Navdeep Hurd [facility] [address] [facility] [address] [place] [address] ICD (implantable cardioverter-defibril lator) battery [...] 8 EDT Narrative 02/27/2016 15:17 EDT *Cardiology* [address] [place] [address] Lead Revision (Report amended ) Patient: Nabil Iglesias ?Study Date: ?02/27/2016 ? Accession #: ? [id number] : ? 1940 Referring: Clem Olvera Attending: [...] 0.35 glide wire a Nick MENDOZAW 6F (Formerly [facility]) 6 mm-40 mm balloon dilation still could [...] Venograms were performed in the MOORE and LATVIAN projections and a suitable mid-lateral LV branch [...] fascia. The leads were connected to a FORGEMAN HELPER-D device. Device and Lead detail in table [...] Implanted device: Medtronic - Viva Quad XT FORGEMAN HELPER-D DF4 - Serial number: [id number] Explanted device: Medtronic - Viva XT FORGEMAN HELPER-D DF4 - Serial number: [id number]. LEAD PARAMETERS + + + + + [...] + + + + + Serial number [id number] ? [id number] ?? [id number] ? + + + + [...] Gulshan Drummond MD - 05/12/2016 *Cardiology* [address] [place] [address] Lead Revision (Report amended ) Patient: Nabil [...] therefore over an 0.35 glide wire [facility]) 6 mm-40 mm balloon dilation still could [...] Venograms were performed in the MOORE and LATVIAN projections and a suitable mid-lateral LV branch [...] fascia. The leads were connected to a FORGEMAN HELPER-D device. Device and Lead detail in table [...] Implanted device: Medtronic - Viva Quad XT FORGEMAN HELPER-D DF4 - Serial number: [id number] Explanted device: Medtronic - Viva XT FORGEMAN HELPER-D DF4 - Serial number: [id number]. LEAD PARAMETERS + + + + + + Lead # 1 2 3 4 + + + + + + Chamber RA RV LV LV + + + + + + Date 07/19/2002 07/18/2013 02/27/2016 07/18/2013 implanted + + + + + + Model St. Esa Medtronic Medtronic Enpath information [id number] Attain Epicardial Performa 4298 + + + + + + Serial number [id number] + + + + + + [...] situ documented in this encounter Care Teams Maintenance Controller Relationship Specialty Start Date End Date Clem Olvera MD [address] [place] [id number] PCP - General 12/18/15 documented as of this encounter
--- OUTSIDE RECORDS SUMMARY | 2023-11-24 08:12 | XMS_ITS | Encounter Summary ---
[place] [address] Care Team Providers Care Cnc Service Technician Name Role Phone Donny Cooper MD Primary Care Provider [phone] Encounter Details Date Type Department Care Team [...] AM EDT Hospital Encounter [place] [address] Arrived documented as of this encounter Visit Diagnoses Not on filedocumented in this encounter Care Teams Cnc Service Technician Relationship Specialty Start Date End Date Donny Cooper MD [address] [place] [address] PCP - General Family Medicine 02/25/19 documented as of this encounter
--- OUTSIDE RECORDS SUMMARY | 2023-11-24 08:12 | XMS_ITS | Encounter Summary ---
Author Organization [facility] [place] [address] Care Team Providers Care Truck Body Builder Name Role Phone Donny Cooper MD Primary Care Provider [phone] Encounter Details Date Type Department Care Team (Late st Contact Info) Description 07/26/2019 Notes Only Cardiology at [address] [address] Maged Arguelles MD [facility] [place] [address] Social History Tobacco Use Types Packs/Day Years [...] his Medtronic biventricular ICD is reviewed. Suboptimal HOG GRADER at 84%. Normal device function. Awaiting Holter to assess PVC burden. Maged Arguelles MD [facility] Cardiac Electrophysiology 07/26/2019 9:04 AM documented in this encounter Plan of Treatment Upcoming Encounters Date Type Department Care Team (Late st Contact Info) Description 02/02/2024 10:00 AM EDT Hospital Encounter Non-Invasive [place] [address] Arrived documented as of this encounter Visit Diagnoses Not on filedocumented in this encounter Care Teams Truck Body Builder Relationship Specialty Start Date End Date Donny Cooper MD [address] [place] [address] PCP - General Family Medicine 02/25/19 documented as of this encounter
--- OUTSIDE RECORDS SUMMARY | 2023-11-24 08:12 | XMS_ITS | Encounter Summary ---
[place] [address] Care Team Providers Care Body Shop Worker Name Role Phone Donny Cooper MD Primary Care Provider [phone] Encounter Details Date Type Department Care Team (Latest Contact Info) Description 11/04/2023 10:00 AM EDT - 11/04/2023 11:59 PM EDT Hospital Encounter Non-[place] [address] Discharge Disposition: Home Social History Tobacco Use [...] AM EDT Hospital Encounter Non-Invasive [place] [address] Arrived documented as of this encounter Procedures [...] on filedocumented in this encounter Care Teams Body Shop Worker Relationship Specialty Start Date End Date Donny Cooper MD [address] [place] [address] PCP - General Family Medicine 02/25/19 documented as of this encounter
--- OUTSIDE RECORDS SUMMARY | 2023-11-24 08:12 | XMS_ITS | Encounter Summary ---
Author Organization [facility] Address [address] [place] [address] Care Team Providers Care Conservation Scientist Name Role Phone Clem Olvera MD Primary Care Provider [phone] Reason for Referral * (Routine) - Closed Specialty Diagnoses / Procedures Referred By Pedro madera Referred To Contact Beatrice De La Garza NP [address] [place] [phone] Referral ID Status Reason Start Date Expiration Date V isits Requested Visits Authorized [id number] Closed Specialty Services Required 02/27/2016 1 1 Comments You must contact us if we have not contacted you or you have missed your scheduled appointment. If you have any nursing questions, please don't hesitate to call the Cardiac Arrhythmia Service at [facility] at or , extension [phone]. For any scheduling of appointments, please call [phone] or , extension [phone]. . * (Routine) - Closed Specialty Diagnoses / Procedures Referred By Pedro madera Referred To Contact Beatrice De La Garza NP [address] [address] Referral ID Status Reason Start Date Expiration Date V isits Requested Visits Authorized [id number] Closed Specialty Services Required 02/27/2016 1 1 Comments You have a pre existing appointment with Dr. Olvera on March 05 at 2:00, please have Dr. Olvera check your incision at that visit. * (Routine) - Closed Specialty Diagnoses / Procedures Referred By Contbecca t Referred To Contact Beatrice De La Garza NP [address] [address] Referral ID Status Reason Start Date Expiration Date V isits Requested Visits Authorized [id number] Closed Specialty Services Required 02/27/2016 1 1 [...] [facility] Cardiology is located at [address] [facility] in [place] -Clinics are also held in [facility], and [place], [place] and [facility]. If you live in those areas, we will make arrangements for follow-up appointments in one of those clinics.. Encounter Details Date Type Department Care Team (Late st Contact Info) Description 02/27/2016 6:30 EDT - 02/28/2016 13:39 EDT Hospital Encounter [facility] Cardiac/Telemetry Unit [address] [place] [address] Gulshan Drummond MD PhD [address] [address] Gulshan Montoya Sa, MD [address] [facility] [address] [place] [phone] AICD lead malfunction, subsequent encounter; ICD [...] EF of 20-25% status post silent inferior LA in the early . 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 He had heart failure symptoms that started around May 2013, when he was in [place], [place]. This triggered major cardiac workup including [...] then underwent a device upgrade to a ACQUISITIONS LIBRARIAN-D device with biventricular pacing for his EF [...] been followed in cardiology outreach clinic at [facility] in [place]. Continued high pacing threshold on the epicardial [...] plans to follow up with his Sheep Sticker in [place] in 6-8 weeks for which he will arrange once he has arrived in [place]. He has been provided with the implant [...] Follow Up Appointments Scheduled with [facility] Appointments Outside of [facility] We Will Schedule Studies We Will Schedule Appointments We Recommend but have not been Scheduled Beatrice De La Garza NP 02/27/2016 10:59 Associated attestation - Gulshan Montoya Sa, MD - 02/28/2016 1519 EDT Attending Attestation: I saw and evaluated the patient. I discussed the case with the resident/CLOTH DYER/fellow and agree with the findings and plan as documented above. Gulshan bullock Sa, MD Cardiac Electrophysiology documented in this encounter Discharge Instructions * Appointments* Beatrice De La Garza NP - 02/27/2016 11:[address] Olvera on 03/05/16 at 2:00 as previously scheduled for a routine visit and for a check of your incision. Follow up with Giselle Hill NP at the [facility] in May, you will be notified [...] Notes * Lou Alfonso RN - 02/28/2016 5259 EDT Pt awaiting discharge. IV and tele was removed by primary nurse. This RN administered flu shot and provided flu information sheet. AVS and medications reviewed by RN with patient and . AVS statedcoreg was 3.25mg BID, which pt states no, they must have copied it down wrong. I'm not doing that.We've been through this in [place]. It makes me pass out. RN suggested checking with team, which pt denied and states I wont take it twice a day. He did agree to review this medication with his communications engineering technician and plans to remain on his home dosing, which was in the morning. He received dose this am. Ptleft via wheelchair with . * Beatrice Rodriguez - 02/28/2016 1329 EDT Brief visit with patient and as they were being discharged. Patient states he is independent in self care and home management. He feels well supported by friends and neighbors. Patient has Medicare and [facility]. Pharmacy is [facility] in [facility]. No needs identified at time of discharge. will provide transportation. Beatrice Rodriguez RN Case Manager #[phone] documented in this encounter H&P Notes * Navdeep Hurd MD - 02/27/2016 0830 EDT Cardiology Admitting H&P Admit Date: 02/27/2016 Date of Service: 02/27/2016 PCP: Clem Olvera Code Status: Full Code Chief Complaint: FINN, device battery depletion, high pacing threshold on epicardial lead HPI: 74-year-old man with coronary artery disease and ischemic cardiomyopathy status post silent inferior LA in the early . 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 He had heart failure symptoms that started around May 2013, when he was in [place], [place]. This triggered major cardiac workup including [...] point, his device was upgraded to a ACQUISITIONS LIBRARIAN-D device with biventricular pacing. By the patient's [...] been followed in cardiology outreach clinic at [facility] in [place]. Continued high pacing threshold on the epicardial LV lead has caused a very rapid battery depletion. Dr. David Adams in [place] recommended against lead extraction and reimplant as [...] ??? Pacemaker insertion 2002 2013 second pacemaker [facility] Social History Family History Social History Substance Use Topics ??? Smoking status: Former Smoker Years: 35.00 Quit date: 1989 ??? Smokeless tobacco: Not on file ??? Alcohol use 6.6 oz/week 6 Cans of beer, 5 Glasses of wine per week , lives with , retired. Spends leong in [place]. Spends the chery in [place], [place]. Quit smoking in 1990. Has 2 [...] and ischemic cardiomyopathy status post silent inferior LA in the early . Also diagnosed with [...] point, his device was upgraded to a ACQUISITIONS LIBRARIAN-D device with biventricular pacing with a surgically [...] EST) 03/12/2016 12:4 3 EST Scan 2 Adult Literacy Teacher PROCEDURE/MINOR JUDD GICAL ORDERABLES * ECG REPORT - SCANNED (03/04/2016 14:06 EDT) 03/04/2016 14:0 6 EDT Scan 2 Adult Literacy Teacher PROCEDURE/MINOR JUDD GICAL ORDERABLES * ECG REPORT - SCANNED (03/04/2016 14:06 EDT) 03/04/2016 14:0 6 EDT Scan 2 Adult Literacy Teacher PROCEDURE/MINOR JUDD GICAL ORDERABLES * IMPLANT RECORD - SCANNED (03/04/2016 14:06 EDT) 03/04/2016 14:0 6 EDT Scan 2 Adult Literacy Teacher PROCEDURE/MINOR JUDD GICAL ORDERABLES * ECG REPORT - SCANNED (03/01/2016 8:58 EDT) 03/01/2016 8:58 EDT Scan 2 Adult Literacy Teacher PROCEDURE/MINOR JUDD GICAL ORDERABLES * ECG REPORT - SCANNED (03/01/2016 8:58 EDT) 03/01/2016 8:58 EDT Scan 2 Adult Literacy Teacher PROCEDURE/MINOR JUDD GICAL ORDERABLES * CHEST PA [...] IMAGING ORDERABLES * HEMAGRAM (02/28/2016 5:44 EDT) [facility] WBC 9.84 4.0 - 10.4 K/cmm 02/28/2016 6:[address] [facility] RBC 4.42 4.36 - 5.78 M/cmm 02/28/2016 6:[address] [facility] Hemoglobin 14.2 13.8 - 17.3 gm/dl 02/28/2016 6:26 [facility] HCT 40.9 39.5 - 50.2 % 02/28/2016 6:26 [facility] MCV 93 81 - 95 fl 02/28/2016 6:26 [facility] MCH 32.1 27.6 - 33.0 pg 02/28/2016 6:26 [facility] MCHC 34.7 32.8 - 36.4 gm/dl 02/28/2016 6:26 [facility] RDW-CV 13.1 11.8 - 14.1 % 02/28/2016 6:26 [facility] RDW-SD 44.6 36.5 - 45.9 fl 02/28/2016 6:26 [facility] PLT 151 141 - 377 K/cmm 02/28/2016 6:26 [facility] MPV 11.2 9.5 - 12.7 fl 02/28/2016 6:26 [facility] Blood specimen (specimen) BLOOD SPECIMEN / Unknown 02/28/2016 5:44 EDT 02/28/2016 6:13 EDT Beatrice De La Garza NP HEMATOLOGY & PF4 ORDERABLES [facility] [address] [place] [address] * (ABNORMAL) CREATININE (02/28/2016 5:44 EDT) Creatinine 0.65(L) 0.66 - 1.25 mg/dl 02/28/2016 6:[address] [facility] GFR, Calculated 95 >60 ml/min/1.7 3m2 02/28/2016 6:[address] [facility] Comment: eGFR calculated using CKD-EPI equation for non Americans. Multiply eGFR by 1.16 for Americans. Blood specimen (specimen) BLOOD SPECIMEN / Unknown 02/28/2016 5:44 EDT 02/28/2016 6:13 EDT Beatrice De La Garza NP CHEMISTRY & B LOOD GAS ORDERABLES Performing Organization Address [facility]/ZIP Co de Phone Number [facility] [address] [place] [address] * BUN (02/28/2016 5:44 EDT) BUN 14 10 - 26 mg/dl 02/28/2016 6:[address] [facility] Blood specimen (specimen) BLOOD SPECIMEN / Unknown 02/28/2016 5:44 EDT 02/28/2016 6:13 EDT Beatrice De La Garza CLOTH DYER CHEMISTRY & B LOOD GAS ORDERABLES Performing Organization Address [facility] Co de Phone Number [facility] [address] [place] [address] * ELECTROLYTES (02/28/2016 5:44 EDT) Sodium 138 136 - 145 mEq/L 02/28/2016 6:[address] [facility] Potassium 4.7 3.5 - 5.0 mEq/L 02/28/2016 6:[address] [facility] Chloride 104 96 - 110 mEq/L 02/28/2016 6:[address] [facility] CO2 25 22 - 32 mEq/L 02/28/2016 6:[address] [facility] Comment:Note new reference r hong 02/19/16 Blood specimen (specimen) BLOOD SPECIMEN / Unknown 02/28/2016 5:44 EDT 02/28/2016 6:13 EDT Beatrice De La Garza NP CHEMISTRY & B LOOD GAS ORDERABLES [facility] [address] [place] [address] * PORTABLE CHEST 1 VIEW (02/27/2016 12:46 [...] 12:41 EDT) 02/27/2016 12:4 1 EDT Narrative [facility] EKG - 02/28/2016 8:57 EDT ? [facility] ? Test Date: ?2016-02-27 Pat Name: ? NABIL IGLESIAS ? Department: ?? [facility] 5 ? Room: ? MW514 Gender: ? M ?Boatwright: ?? [id number] : ?1940 ? Requested By: KAIN REED L Order Number: [id number] ? Reading MD: ?? BRAYAN CUENCA MD ? Measurements Intervals ?[place] ? Rate: ? 63 ? P: ?15 CA: ? 159 ?QRS: ?234 QRSD: ? 156 [...] Date: 2016-02-27 Pat Name: NABIL IGLESIAS Department: [place] [address] Room: [facility] Gender: M Boatwright: [id number] : 1940 Requested By: KAIN Gallagher Order Number: [id number] Reading MD: BRAYAN CUENCA MD Measurements Intervals [place] Rate: 63 P: 15 CA: 159 QRS: 234 QRSD: 156 T: 15 QT: 479 QTc: 493 Interpretive Statements ELECTRONIC VENTRICULAR PACEMAKER Compared to ECG 02/27/2016 08:10:34 No significant changes I reviewed the tracing and have either agreed or edited the findings inthis report. Electronically Signed On 02-28-16 08:57:02 EDT by BRAYAN BEEBE. Gulshan Drummond MD PhD CARDIA C ECG ORDERABLES [facility] EKG * PROTIME (02/27/2016 8:45 EDT) Pro Time 12.3 10.3 - 13.1 secs 02/27/2016 9:[address] [facility] Comment: New prothrombin t josue range effective 01/29/16 I.N.R. 1.1 0.9 - 1.1 Ratio 02/27/2016 9:[address] [facility] Comment: Moderate Intensity Coumadin INR = 2.0-3.0 Adjustments in anticoagulant therapy dose should be based upon the INR and NOT the Pro Time. Blood specimen (specimen) BLOOD SPECIMEN / Unknown 02/27/2016 8:45 EDT 02/27/2016 8:54 EDT Gulshan Drummond MD PhD HEMATO LOGY & PF4 ORDERABLES [facility] [address] [place] [address] * HEMAGRAM (02/27/2016 8:45 EDT) WBC 6.47 4.0 - 10.4 K/cmm 02/27/2016 8:[address] [facility] RBC 4.51 4.36 - 5.78 M/cmm 02/27/2016 8:[address] [facility] Hemoglobin 14.7 13.8 - 17.3 gm/dl 02/27/2016 8:[address] [facility] HCT 41.7 39.5 - 50.2 % 02/27/2016 8:[address] [facility] MCV 93 81 - 95 fl 02/27/2016 8:[address] [facility] MCH 32.6 27.6 - 33.0 pg 02/27/2016 8:[address] [facility] MCHC 35.3 32.8 - 36.4 gm/dl 02/27/2016 8:[address] [facility] RDW-CV 13.1 11.8 - 14.1 % 02/27/2016 8:[address] [facility] RDW-SD 44.0 36.5 - 45.9 fl 02/27/2016 8:[address] [facility] PLT 176 141 - 377 K/cmm 02/27/2016 8:[address] [facility] MPV 10.7 9.5 - 12.7 fl 02/27/2016 8:[address] [facility] Blood specimen (specimen) BLOOD SPECIMEN / Unknown 02/27/2016 8:45 EDT 02/27/2016 8:54 EDT Gulshan Drummond MD PhD HEMATO LOGY & PF4 ORDERABLES [facility] [address] [place] [address] * ELECTROLYTES (02/27/2016 8:45 EDT) Sodium 142 136 - 145 mEq/L 02/27/2016 9:[address] [facility] Potassium 4.7 3.5 - 5.0 mEq/L 02/27/2016 9:[address] [facility] Chloride 103 96 - 110 mEq/L 02/27/2016 9:[address] [facility] CO2 27 22 - 32 mEq/L 02/27/2016 9:[address] [facility] Comment:Note new reference r hong 02/19/16 Blood specimen (specimen) BLOOD SPECIMEN / Unknown 02/27/2016 8:45 EDT 02/27/2016 8:54 EDT Gulshan Drummond MD PhD CHEMIS TRY & BLOOD GAS ORDERABLES Performing Organization Address [facility] de Phone Number [facility] [address] [place] [address] * CREATININE (02/27/2016 8:45 EDT) Creatinine 0.69 0.66 - 1.25 mg/dl 02/27/2016 9:[address] [facility] GFR, Calculated 93 >60 ml/min/1.7 3m2 02/27/2016 9:[address] [facility] Comment: eGFR calculated using CKD-EPI equation for non Americans. Multiply eGFR by 1.16 for Americans. Blood specimen (specimen) BLOOD SPECIMEN / Unknown 02/27/2016 8:45 EDT 02/27/2016 8:54 EDT Gulshan Drummond MD PhD CHEMIS TRY & BLOOD GAS ORDERABLES Performing Organization Address [facility] Co de Phone Number [facility] [address] [place] [address] * BUN (02/27/2016 8:45 EDT) BUN 17 10 - 26 mg/dl 02/27/2016 9:[address] [facility] Blood specimen (specimen) BLOOD SPECIMEN / Unknown 02/27/2016 8:45 EDT 02/27/2016 8:54 EDT Gulshan Drummond MD PhD CHEMIS TRY & BLOOD GAS ORDERABLES [facility] [address] [place] [address] * EKG 12-LEAD (02/27/2016 8:08 EDT) 02/27/2016 8:08 EDT [address]arrative [facility] EKG - 02/28/2016 9:01 EDT ? [facility] ? Test Date: ?2016-02-27 Pat Name: ? NABIL IGLESIAS ? Department: ?? [facility] ? Room: ? WC2975 Gender: ? M ?Boatwright: ?? [id number] : ?1940 ? Requested By: MARCIA Boo Order Number: [id number] ? Julia WRIGHT: ?? BRAYAN CUENCA MD ? Measurements Intervals ?[place] ? Rate: ? 69 ? P: ?147 CA: ? 134 ?QRS: ?-67 QRSD: ? 160 [...] Pat Name: NABIL IGLESIAS Department: [facility] Room: [id number] Gender: M Boatwright: [id number] : 1940 Requested By: MARCIA Boo Order Number: [id number] Reading MD: BRAYAN CUENCA MD Measurements Intervals [place] Rate: 69 P: 147 CA: 134 QRS: -67 QRSD: 160 T: -59 QT: 434 QTc: 467 Interpretive Statements ELECTRONIC ATRIAL PACEMAKER ELECTRONIC VENTRICULAR PACEMAKER Compared to ECG 02/27/2016 08:08:46 No significant changes I reviewed the tracing and have either agreed or edited the findings inthis report. Electronically Signed On 02-28-16 09:01:04 EDT by BRAYAN BEEBE. Navdeep Hurd MD CARDIAC ECG ORD ERABLES [facility] EKG documented in this encounter Visit Diagnoses [...] Reason: Other - Comment: pt already took QUALITY ASSURANCE LAB TECHNICIAN, takes other meds at HS) 921 (Given [...] Reason: Other - Comment: pt already took QUALITY ASSURANCE LAB TECHNICIAN, takes other meds at HS)2100 (Given - Provider: Mady Bruno RN) spironolactone (ALDACTONE) tablet 12.5 mg 12.5 mg, oral, DAILY, First dose on Thu02/27/16 at 1245, Until Discontinued, Routine 1306 (Not Given - Provider: Nneka Stuart RN - Reason: Other - Comment: pt already took QUALITY ASSURANCE LAB TECHNICIAN, takes other meds at HS)2102 (Given - Provider: Mady Bruno RN) tamsulosin (FLOMAX) capsule 0.4 mg 0.4 mg, oral, DAILY, First dose on Thu02/27/16 at 1245, Until Discontinued, Routine 1306 (Not Given - Provider: Nneka Stuart RN - Reason: Other - Comment: pt already took QUALITY ASSURANCE LAB TECHNICIAN, takes other meds at HS) 921 (Given [...] Provider: Reina Onofre RN)1048 (Given - Provider: Renia Onofre RN)1059 (Given - Provider: Reina Onofre [...] 02/02 documented in this encounter Care Teams Conservation Scientist Relationship Specialty Start Date End Date Clem Olvera MD [address] [place] [id number] PCP - General 12/18/15 documented as of this encounter
--- OUTSIDE RECORDS SUMMARY | 2023-11-24 08:12 | XMS_ITS | Encounter Summary ---
[place] [address] Care Team Providers Care Automotive Collision Estimator Name Role Phone Donny Cooper MD Primary Care Provider [phone] Encounter Details Date Type Department Care Team (Late st Contact Info) Description 03/17/2019 Telephone Cardiology at [address] [address] Sheri Quinn LNA Social History [...] 11:46 AM EST Medication list reviewed with [facility] list. Please review with patient at next clinic visit. documented in this encounter Plan of Treatment Upcoming Encounters Date Type Department Care Team (Late st Contact Info) Description 02/02/2024 10:00 AM EDT Hospital Encounter [place] [address] Arrived documented as of this encounter Visit Diagnoses Not on filedocumented in this encounter Care Teams Automotive Collision Estimator Relationship Specialty Start Date End Date Donny Cooper MD [address] [place] [address] PCP - General Family Medicine 02/25/19 documented as of this encounter
--- OUTSIDE RECORDS SUMMARY | 2023-11-24 08:12 | XMS_ITS | Encounter Summary ---
[place] [address] Care Team Providers Care Registered Respiratory Therapist Name Role Phone Donny Cooper MD Primary Care Provider [phone] Encounter Details Date Type Department Care Team (Latest Contact Info) Description 04/03/2023 10:00 AM EST - 04/03/2023 11:59 PM [facility] Hospital Encounter Non-Invasive [place] [address] Discharge Disposition: Home Social History Tobacco Use [...] AM EDT Hospital Encounter Non-Invasive [place] [address] Arrived documented as of this [...] on filedocumented in this encounter Care Teams Registered Respiratory Therapist Relationship Specialty Start Date End Date Donny Cooper MD [address] [place] [address] PCP - General Family Medicine 02/25/19 documented as of this encounter
--- OUTSIDE RECORDS SUMMARY | 2023-11-24 08:12 | XMS_ITS | Encounter Summary ---
[place] [address] Care Team Providers Care Member Of Technical Staff Name Role Phone Donny Cooper MD Primary Care Provider [phone] Encounter Details Date Type Department Care Team (Latest Contact Info) Description 04/08/2022 10:00 AM EST - 04/08/2022 11:59 PM [facility] Hospital Encounter [place] [address] Discharge Disposition: Home Social History Tobacco Use [...] AM EDT Hospital Encounter Non[place] [address] Arrived documented as of this [...] on filedocumented in this encounter Care Teams Member Of Technical Staff Relationship Specialty Start Date End Date Donny Cooper MD [address] [place] [address] PCP - General Family Medicine 02/25/19 documented as of this encounter
--- OUTSIDE RECORDS SUMMARY | 2023-11-24 08:12 | XMS_ITS | Encounter Summary ---
[place] [address] Care Team Providers Care Counter Stacker Name Role Phone Marques Martinez MD Primary Care Provider Encounter Details Date Type Department Care Team (Late st Contact Info) Description 05/01/2010 2:40 PM EST Procedure visit [place] [address] Social History Tobacco Use Types Packs/Day Years [...] AM EDT Hospital Encounter [place] [address] Arrived documented as of this encounter Visit Diagnoses Not on filedocumented in this encounter Care Teams Counter Stacker Relationship Specialty Start Date End Date Marques Martinez MD [address] [place] [id number] PCP - General 04/01/10 04/08/11 documented as of this encounter
--- OUTSIDE RECORDS SUMMARY | 2023-11-24 08:12 | XMS_ITS | Encounter Summary ---
Author Organization [facility] Address [address] [place] [address] Care Team Providers Care Sales Operations Specialist Name Role Phone Unavailable Primary Care Provider Unavailabl e Encounter Details Date Type Department Care Team (Late st Contact Info) Description 05/06/2001 Results Only [facility] [address] [place] [address] Hernandez Partida MD [address] [place] [phone] Social History Tobacco Use Types Packs/Day Years [...] taken when reading/interpreting unformatted reports. Name: ? HARRIS CHARMAINE Boo ? Accession #: ? [id number] ? : [...] is submitted entirely in cassette (B). ??(Naty Caal)/[facility] End of Report [facility] 05/06/2001 05/07/2001 9:2 5 EST Hernandez Partdia MD PATHOLOGY ORDERABLES [facility] [address] [place] [address] documented in this encounter Visit Diagnoses Not on filedocumented in this encounter
--- OUTSIDE RECORDS SUMMARY | 2023-11-24 08:12 | XMS_ITS | Encounter Summary ---
[place] [address] Care Team Providers Care Laborer Marine Terminal Name Role Phone Donny Cooper MD Primary Care Provider [phone] Encounter Details Date Type Department Care Team (Latest Contact Info) Description 07/02/2023 10:00 AM EST - 07/02/2023 11:59 PM EST Hospital Encounter Non-[place]vasive [place] [address] Discharge Disposition: Home Social History Tobacco Use [...] AM EDT Hospital Encounter Non-Invasive [place] [address] Arrived documented as of this encounter Visit Diagnoses Not on filedocumented in this encounter Care Teams Laborer Marine Terminal Relationship Specialty Start Date End Date Donny Cooper MD [address] [place] [address] PCP - General Family Medicine 02/25/19 documented as of this encounter
--- OUTSIDE RECORDS SUMMARY | 2023-11-24 08:12 | XMS_ITS | Encounter Summary ---
[place] [address] Care Team Providers Care Human Factors Ergonomist Name Role Phone Donny Cooper MD Primary Care Provider [phone] Encounter Details Date Type Department Care Team (Latest Contact Info) Description 08/06/2023 10:00 AM EDT - 08/06/2023 11:59 PM EDT Hospital Encounter Non-Invasive [place] [address] Discharge Disposition: Home Social History Tobacco Use [...] AM EDT Hospital Encounter Non-Invasive [place] [address] Arrived documented as of this encounter Visit Diagnoses Not on filedocumented in this encounter Care Teams Human Factors Ergonomist Relationship Specialty Start Date End Date Donny Cooper MD [address] [place] [address] PCP - General Family Medicine 02/25/19 documented as of this encounter
--- OUTSIDE RECORDS SUMMARY | 2023-11-24 08:12 | XMS_ITS | Clinical Summary ---
Author Organization [facility] [place] [address] Care Team Providers Care Hardboard Coating Machine Operator Name Role Phone Donny Cooper MD Primary Care Provider [phone] Allergies No known active allergies Medications Medication [...] PM EDT Hospital Encounter [place] [address] Discharge Disposition: Home from Last 3 Months [...] AM EDT Hospital Encounter [place] [address] Arrived Health Maintenance Due Date Last Done Comments Tdap adult 08/19/1959 Tetanus vaccine 08/19/1959 Zoster vaccine (1 of 2) 1990 Advance Directive 08/19/1995 Pneumoccocal Vaccine: 65+ (2 of 2 - PCV) 05/04/2009 05/04/2008 Covid-19 Vaccine ( - 2022- season) 2023 Influenza (Flu) vaccine (1 o f 1 - Influenza standard series) 01/03/2024 02/01/2010, 03/06/2006, 02/24/2005 Medical Devices Implanted Type Area Media Specialist Device Identifier Shelf Expiration Date Model / Serial / Lot Mdt : [id number] : [id number] Implanted: (Quantity not on file) Cardiac Resynchronization Therapy - Defibrillator Chest Medtronic - [id number] / [id number] / Procedures Procedure Name Priority Date/Time Associated Diagnosis Comments PRO ICD INTERROGATION REMOTE UP TO 90 DAYS Routine 09/08/2023 5:26 AM EDT from Last 3 Months Results * Cardiac Device Check - Remote (09/08/2023 5:26 AM EDT) Anatomical Region Laterality Modality Other 09/08/2023 5:26 AM EDT Alber Seals MD IMPLANTABLE CARDIAC DEVICE from Last 3 Months Care Teams Hardboard Coating Machine Operator Relationship Specialty Start Date End Date Donny Cooper MD [address] [place] [address] PCP - General Family Medicine 02/25/19
--- OUTSIDE RECORDS SUMMARY | 2023-11-24 08:12 | XMS_ITS | Encounter Summary ---
[place] [address] Care Team Providers Care Wool Sampler Name Role Phone Marques Martinez MD Primary Care Provider [phone] Encounter Details Date Type Department Care Team (Late st Contact Info) Description 10/03/2010 [place] [address] Marina Orosco, JADON Social History Tobacco Use [...] AM EDT Hospital Encounter Non[place] [address] Arrived documented as of this encounter Visit Diagnoses Not on filedocumented in this encounter Care Teams Wool Sampler Relationship Specialty Start Date End Date Marques Martinez MD [address] [place] [address] PCP - General 04/01/10 04/08/11 documented as of this encounter
--- OUTSIDE RECORDS SUMMARY | 2023-11-24 08:12 | XMS_ITS | Encounter Summary ---
Author Organization [facility] Address [address] [place] [address] Care Team Providers Care Grinder Set Up Operator Thread Name Role Phone Unknown, Provider Primary Care Provider [phone] Clem Olvera MD Primary Care Provider [phone] Encounter Details Date Type Department Care Team (Late st Contact Info) Description 11/29/2015 Pre-Procedure Orders Encounter [facility] [address], [place] [id number] Navdeep Hurd MD [address] [place] [address] [address] Social History Tobacco Use Types [...] Patient: Nabil Streeter. Attending: Dr. Moran Scrrajinder Belt Sewer: Dr. Fantasma Dhillon History/indication: The patient is [...] Patient: Nabil Streeter Attending: Dr. Dean Bailey Belt Sewer: Dr. Fantasma Dhillon History/indication: The patient is [...] on filedocumented in this encounter Care Teams Grinder Set Up Operator Thread Relationship Specialty Start Date End Date Unknown, Provider, PCP - General 12/06/12 12/17/15 Clem Olvera MD [address] [place] [address] PCP - General 12/18/15 documented as of this encounter
--- OUTSIDE RECORDS SUMMARY | 2023-11-24 08:12 | XMS_ITS | Encounter Summary ---
[place] [address] Care Team Providers Care Clinical Laboratory Aides Teacher Name Role Phone Donny Cooper MD Primary Care Provider [phone] Encounter Details Date Type Department Care Team (Latest Contact Info) Description 10/05/2022 10:00 AM EDT - 10/05/2022 11:59 PM EDT Hospital Encounter Non-[place]vasive [place] [address] Discharge Disposition: Home Social History Tobacco Use [...] AM EDT Hospital Encounter Non-Invasive [place] [address] Arrived documented as of this encounter Procedures [...] on filedocumented in this encounter Care Teams Clinical Laboratory Aides Teacher Relationship Specialty Start Date End Date Donny Cooper MD [address] [place] [address] PCP - General Family Medicine 02/25/19 documented as of this encounter
--- OUTSIDE RECORDS SUMMARY | 2023-11-24 08:12 | XMS_ITS | Encounter Summary ---
Author Organization [facility] [place] [address] Care Team Providers Care Photographic Specialist Name Role Phone Donny Cooper MD Primary Care Provider [phone] Encounter Details Date Type Department Care Team (Latest Contact Info) Description 06/25/2021 3:23 PM EST - 06/25/2021 11:59 PM EST Hospital Encounter Non-Invasive [place] [address] Alber Seals MD [facility] [place] [address] Cardiomyopathy, primary Discharge Disposition: Home Social History [...] AM EDT Hospital Encounter Non-Invasive [place] [address] Arrived documented as of this encounter Procedures Procedure Name Priority Date/Time Associated Diagnosis Comments ICD INTERROGATION 3 MONTH Routine 06/25/2021 3:24 PM EST Cardiomyopathy, primary documented in this encounter Results * ICD INTERROGATION 3 MONTH (06/25/2021 3:24 PM EST) Anatomical Region Laterality Modality Other Narrative 06/25/2021 3:42 PM EST Cardiac Device Remote Monitoring Report Summary Medtronic Carelink Device: ELECTRIC MOTOR CONTROL ASSEMBLER-D Model: VIVA QUAD Battery: 2.95 v, estimated longevity 2 years 6 months Pacing percentage: 90% ELECTRIC MOTOR CONTROL ASSEMBLER paced Events: Presenting rhythm: atrial paced/biventricular paced Frequent PVC's Impression Normal device function Follow Up As per schedule - in-clinic and remote ALBER SEALS MD 06/25/21 Alber Seals MD IMPLANTABLE CARDIAC DEVICE documented in this encounter Visit Diagnoses Diagnosis Cardiomyopathy, primary Other primary cardiomyopathies documented in this encounter Care Teams Photographic Specialist Relationship Specialty Start Date End Date Donny Cooper MD [address] [place] [address] PCP - General Family Medicine 02/25/19 documented as of this encounter
--- OUTSIDE RECORDS SUMMARY | 2023-11-24 08:12 | XMS_ITS | Encounter Summary ---
Author Organization [facility] Address [address] [place] [address] Care Team Providers Care Supervisor Beam Department Name Role Phone Unavailable Primary Care Provider Unavailabl e Encounter Details Date Type Department Care Team (Late st Contact Info) Description 12/02/2012 Results Only [facility] Laboratory Services - [facility] [place] [address] [place] [phone] Satinder Edwards MD [address] [place] [address] Social History Tobacco Use Types Packs/Day Years [...] ? NABIL IGLESIAS ? Accession #: ? [id number] ? : ? 1940 (Age: 72) ??M [...] MD PATHOLOGY ORDERABLE S Performing Organization Address City/State/[facility] Co de Phone Number DIVYA BERRY [address] [place] [address] documented in this encounter Visit Diagnoses Not on filedocumented in this encounter
--- OUTSIDE RECORDS SUMMARY | 2023-11-24 08:12 | XMS_ITS | Encounter Summary ---
[place] [address] Care Team Providers Care Pig Furnace Operator Name Role Phone Donny Cooper MD Primary Care Provider [phone] Encounter Details Date Type Department Care Team (Latest Contact Info) Description 01/03/2023 10:00 AM EDT - 01/03/2023 11:59 PM EDT Hospital Encounter Non-[place]vasive [place] [address] Discharge Disposition: Home Social History Tobacco Use [...] AM EDT Hospital Encounter Non-Invasive [place] [address] Arrived documented as of this encounter Procedures [...] on filedocumented in this encounter Care Teams Pig Furnace Operator Relationship Specialty Start Date End Date Donny Cooper MD [address] [place] [address] PCP - General Family Medicine 02/25/19 documented as of this encounter
--- OUTSIDE RECORDS SUMMARY | 2023-11-24 08:12 | XMS_ITS | Encounter Summary ---
Author Organization [facility] [place] [address] Care Team Providers Care Senior Chemical Process Engineer Name Role Phone Marques Martinez MD Primary Care Provider [phone] Encounter Details Date Type Department Care Team (Late st Contact Info) Description 05/01/2010 3:10 PM EST Office [place] [address] Jairon Fenton MD [facility] [place] [address] Discharge Disposition: Home Social History Tobacco Use [...] AM EDT Hospital Encounter Non-[place] [address] Arrived documented as of this encounter Visit Diagnoses Not on filedocumented in this encounter Care Teams Senior Chemical Process Engineer Relationship Specialty Start Date End Date Marques Martinez MD [address] [place] [address] PCP - General 04/01/10 04/08/11 documented as of this encounter
--- OUTSIDE RECORDS SUMMARY | 2023-11-24 08:12 | XMS_ITS | Encounter Summary ---
Author Organization [facility] [place] [address] Care Team Providers Care Research Dairy Farm Supervisor Name Role Phone Marques Martinez MD Primary Care Provider [phone] Encounter Details Date Type Department Care Team (Late st Contact Info) Description 06/12/2010 2:10 PM EST Office [place] [address] Jairon Fenton MD [facility] [place] [address] Discharge Disposition: Home Social History Tobacco Use [...] AM EDT Hospital Encounter Non-[place] [address] Arrived documented as of this encounter Visit Diagnoses Not on filedocumented in this encounter Care Teams Research Dairy Farm Supervisor Relationship Specialty Start Date End Date Marques Martinez MD [address] [place] [address] PCP - General 04/01/10 04/08/11 documented as of this encounter
--- OUTSIDE RECORDS SUMMARY | 2023-11-24 08:12 | XMS_ITS | Encounter Summary ---
Author Organization [facility] [place] [address] Care Team Providers Care Energy Technician Name Role Phone Donny Cooper MD Primary Care Provider [phone] Encounter Details Date Type Department Care Team (Latest Contact Info) Description 06/13/2020 12:35 PM EST - 06/13/2020 11:59 PM EST Hospital Encounter [place] [address] Alber Seals MD [facility] [place] [address] Cardiomyopathy, primary Discharge Disposition: Home Social History [...] AM EDT Hospital Encounter [place] [address] Arrived documented as of this encounter Procedures Procedure Name Priority Date/Time Associated Diagnosis Comments ICD INTERROGATION 3 MONTH Routine 06/13/2020 12:36 PM EST Cardiomyopathy, primary documented in this encounter Results * ICD INTERROGATION 3 MONTH (06/13/2020 12:36 PM EST) Anatomical Region Laterality Modality Other Narrative 06/14/2020 10:38 AM EST Cardiac Device Remote Monitoring Report Summary Medtronic CareCityIN 06/14/20 Device: ELECTRIC CAR OPERATOR-D Model: VIVA QUAD Battery: 2.96 v, estimated longevity 3 years, 11 months Pacing percentage: 78% ventricular paced Events: The presenting rhythm is atrial paced with biventricular pacing and frequent ventricular premature contractions No significant arrhythmias Impression Normal device function; suboptimal ELECTRIC CAR OPERATOR pacing likely secondary to frequent PVCs. Should consider in clinic follow-up for further evaluation Follow Up As per schedule - in-clinic and remote ALBER SEALS MD Alber Seals MD IMPLANTABLE CARDIAC DEVICE documented in this encounter Visit Diagnoses Diagnosis Cardiomyopathy, primary Other primary cardiomyopathies documented in this encounter Care Teams Energy Technician Relationship Specialty Start Date End Date Donny Cooper MD [address] [place] [address] PCP - General Family Medicine 02/25/19 documented as of this encounter
--- OUTSIDE RECORDS SUMMARY | 2023-11-24 08:12 | XMS_ITS | Encounter Summary ---
Author Organization [facility] [place] [address] Care Team Providers Care Control Electrician Name Role Phone Donny Cooper MD Primary Care Provider [phone] Encounter Details Date Type Department Care Team (Latest Contact Info) Description 12/18/2020 11:57 AM EDT - 12/18/2020 11:59 PM EDT Hospital Encounter Non-Invasive Cardiology Lab [facility] [place] [address] Maged Arguelles MD [facility] [place] [address] Cardiomyopathy, primary Discharge Disposition: Home Social History [...] AM EDT Hospital Encounter Non-[place] [address] Arrived documented as of this encounter Procedures Procedure Name Priority Date/Time Associated Diagnosis Comments ICD INTERROGATION 3 MONTH Routine 12/18/2020 12:00 PM EDT Cardiomyopathy, primary documented in this encounter Results * ICD INTERROGATION 3 MONTH (12/18/2020 12:00 PM EDT) Anatomical Region Laterality Modality Other Narrative 12/23/2020 11:08 PM EDT MDT EARLY CHILDHOOD AIDE CLASSROOM-D remote reviewed. Normal device function. Inadequate EARLY CHILDHOOD AIDE CLASSROOM at 80%. Maged Arguelles MD [facility] Cardiac Electrophysiology 12/23/2020 11:06 PM Maged Arguelles MD IMPLANTABLE CARDIAC DEVICE documented in this encounter Visit Diagnoses Diagnosis Cardiomyopathy, primary Other primary cardiomyopathies documented in this encounter Care Teams Control Electrician Relationship Specialty Start Date End Date Donny Cooper MD [address] [facility] [place] [address] PCP - General Family Medicine 02/25/19 documented as of this encounter
--- OUTSIDE RECORDS SUMMARY | 2023-11-24 08:12 | XMS_ITS | Encounter Summary ---
Author Organization [facility] [place] [address] Care Team Providers Care Estate Manager Name Role Phone Marques Martinez MD Primary Care Provider [phone] Encounter Details Date Type Department Care Team (Late st Contact Info) Description 10/09/2010 11:35 AM EDT - 10/09/2010 11:59 PM EDT Hospital Encounter XRay at [address] [place] [address] Social History Tobacco Use Types Packs/Day Years [...] AM EDT Hospital Encounter Non-Invasive Cardiology Lab [facility] [address] Arrived documented as of this encounter Visit Diagnoses Not on filedocumented in this encounter Care Teams Estate Manager Relationship Specialty Start Date End Date Marques Martinez MD [address] [place] [address] PCP - General 04/01/10 04/08/11 documented as of this encounter
--- OUTSIDE RECORDS SUMMARY | 2023-11-24 08:12 | XMS_ITS | Encounter Summary ---
Author Organization [facility] [place] [address] Care Team Providers Care Bench Assembly Inspector Name Role Phone Marques Martinez MD Primary Care Provider [phone] Reason for Visit * Reason Comments Follow Up Fracture PATELLA FX DOI 03/23 10 Encounter Details Date Type Department Care Team (Late st Contact Info) Description 10/09/2010 12:40 PM EDT Office [place] [address] Jairon Gustafson MD [facility] [place] [address] Jose Francisco Bee PA [facility] [place] [address] Quadriceps tendon rupture (Primary Dx) Discharge Disposition: [...] AM EDT Hospital Encounter Non-[place] [address] Arrived documented as of this encounter Visit Diagnoses Diagnosis Quadriceps tendon rupture- Primary Sprain and strain of other specified sites of knee and leg documented in this encounter Care Teams Bench Assembly Inspector Relationship Specialty Start Date End Date Marques Martinez MD [address] [place] [address] PCP - General 04/01/10 04/08/11 documented as of this encounter
--- OUTSIDE RECORDS SUMMARY | 2023-11-24 08:12 | XMS_ITS | Encounter Summary ---
Author Organization [facility] [address] Care Team Providers Care Can Slider Name Role Phone Marques Martinez MD Primary Care Provider [phone] Encounter Details Date Type Department Care Team (Late st Contact Info) Description 03/30/2010 [place] [address] Javier Barajas MD [facility] [place] [address] Social History Tobacco Use Types Packs/Day Years [...] AM EDT Hospital Encounter Non-Invasive [place] [address] Arrived documented as of this encounter Procedures [...] AM EST Jairon Fenton MD CHEMISTRY ORDERABLES [facility] * (ABNORMAL) CREATININE, SERUM [...] Fenton MD CHEMISTRY ORDERABLES Performing Organization Address [facility] de Phone Number CERIVIS SHERENNIUM * BUN (04/01/2010 6:09 AM EST) BUN 12 10 - 20 mg/dL CERNER MILLENNIUM Blood specimen (specimen) 04/01/2010 6:09 AM EST 04/01/2010 6:09 AM EST Jairon Fenton MD CHEMISTRY ORDERABLES Performing Organization Address [facility] de Phone Number CERNER CHRISTOSENNIUM * (ABNORMAL) [...] MD HEMATOLOGY ORDERABLE S Performing Organization Address [facility] Co de Phone Number CERNER MILLENNIUM * [...] Fenton MD CHEMISTRY ORDERABLES Performing Organization Address [facility] Phone Number CERIVIS MILLENNIUM * ELECTROLYTE [...] Fenton MD CHEMISTRY ORDERABLES Performing Organization Address [facility] Co de Phone Number CERNER MILLENNIUM * CREATININE, SERUM (03/30/2010 6:05 PM EST) Creatinine 0.87 0.80 - 1.50 mg/dL [facility] Estimated GFR >60 >=60 [facility] Comment: The National Kidney Disease Education [...] Fenton MD CHEMISTRY ORDERABLES Performing Organization Address [facility] Co de Phone Number [facility] * BUN (03/30/2010 6:05 PM EST) BUN 18 10 - 20 mg/dL [facility] Blood specimen (specimen) 03/30/2010 6:05 PM EST 03/30/2010 6:13 PM EST Jairon Fenton MD CHEMISTRY ORDERABLES Performing Organization Address [facility]/ZIP Co de Phone Number [facility] * APTT (03/30/2010 6:05 PM EST) PTT 26 25 - 37 sec [facility] Comment: Recommended therapeutic PTT range for full dose unfractionated heparin is 80-114 seconds. Blood specimen (specimen) 03/30/2010 6:05 PM EST 03/30/2010 6:14 PM EST Jairon Fenton MD HEMATOLOGY ORDERABLE S Performing Organization Address [facility] Co de Phone Number [facility] * PROTIME-INR (03/30/2010 6:05 PM EST) PT 14.2 12.3 - 14.7 sec [facility] Comment: [facility] Transfusion Committee Guidelines: INR less than 2.0, PTT less than OR equal to 43.5 seconds, or Fibrinogen greater than or equal to 100 mg/dl indicate adequate procoagulant activity for hemostasis in patients without underlying bleeding disorders. INR 1.1 0.9 - 1.1 [facility] Blood specimen (specimen) 03/30/2010 6:05 PM EST 03/30/2010 6:14 PM EST Jairon Fenton MD HEMATOLOGY ORDERABLE S Performing Organization Address [facility] Co de Phone Number DEJA SEGOVIA * [...] EST Jairon Fenton MD HEMATOLOGY ORDERABLE S [facility] * (ABNORMAL) CBC (03/30/2010 6:05 PM [...] BANK LAB ORDER PRECIOUS Performing Organization Address City/[facility]/ZIP Co de Phone Number [facility] * REFLEX LAB-ABO/RH (03/30/2010 3:17 PM EST) ABORH Type A Pos CERNER MILLENNIUM Blood specimen (specimen) 03/30/2010 3:17 PM EST 03/30/2010 3:17 PM EST Javier Barajas MD BLOOD BANK LAB ORDER PRECIOUS [facility] * ELECTROLYTE PANEL (03/30/2010 [...] Barajas MD CHEMISTRY ORDERABLES Performing Organization Address [facility] Co de Phone Number [facility] * CREATININE, SERUM (03/30/2010 2:50 PM EST) Creatinine 0.85 0.80 - 1.50 mg/dL [facility] Estimated GFR >60 >=60 [facility] Comment: The National Kidney Disease Education Program [...] Barajas MD CHEMISTRY ORDERABLES Performing Organization Address City/[facility]/ZIP Co de Phone Number [facility] * BUN (03/30/2010 2:50 PM EST) BUN 18 10 - 20 mg/dL [facility] Blood specimen (specimen) 03/30/2010 2:50 PM EST 03/30/2010 3:05 PM EST Javier Barajas MD CHEMISTRY ORDERABLES Performing Organization Address [facility] Phone Number [facility] * GLUCOSE, RANDOM (03/30/2010 2:50 PM EST) Glucose Lvl 95 <=199 mg/dL [facility] Comment:Diabetes: >=200 mg/d L plus symptoms Blood specimen (specimen) 03/30/2010 2:50 PM EST 03/30/2010 3:05 PM EST Javier Barajas MD CHEMISTRY ORDERABLES Performing Organization Address [facility] Phone Number [facility] * APTT (03/30/2010 2:50 PM EST) PTT 25 25 - 37 sec [facility] Comment: Recommended therapeutic PTT range for full dose unfractionated heparin is 80-114 seconds. Blood specimen (specimen) 03/30/2010 2:50 PM EST 03/30/2010 3:06 PM EST Javier Barajas MD HEMATOLOGY ORDERABLE S Performing Organization Address [facility] Phone Number [facility] * PROTIME-INR (03/30/2010 2:50 PM EST) PT 14.1 12.3 - 14.7 sec [facility] Comment: [facility] Transfusion Committee Guidelines: INR less than 2.0, PTT less than OR equal to 43.5 seconds, or Fibrinogen greater than or equal to 100 mg/dl indicate adequate procoagulant activity for hemostasis in patients without underlying bleeding disorders. INR 1.1 0.9 - 1.1 [facility] Blood specimen (specimen) 03/30/2010 2:50 PM EST [...] on filedocumented in this encounter Care Teams Can Slider Relationship Specialty Start Date End Date Marques Martinez MD [address] [place] [address] PCP - General 04/01/10 04/08/11 documented as of this encounter
--- OUTSIDE RECORDS SUMMARY | 2023-11-24 08:12 | XMS_ITS | Encounter Summary ---
[place] [address] Care Team Providers Care Painter Touch Up Name Role Phone Donny Cooper MD Primary Care Provider [phone] Encounter Details Date Type Department Care Team (Latest Contact Info) Description 07/07/2022 10:00 AM EST - 07/07/2022 11:59 PM EST Hospital Encounter Non-Invasive [place] [address] Discharge Disposition: Home Social History Tobacco Use [...] AM EDT Hospital Encounter Non-Invasive [place] [address] Arrived documented as of this [...] on filedocumented in this encounter Care Teams Painter Touch Up Relationship Specialty Start Date End Date Donny Cooper MD [address] [place] [address] PCP - General Family Medicine 02/25/19 documented as of this encounter
--- OUTSIDE RECORDS SUMMARY | 2023-11-24 08:12 | XMS_ITS | Encounter Summary ---
Author Organization [facility] Address [address] [place] [address] Care Team Providers Care Vascular Technologist Name Role Phone Clem Olvera MD Primary Care Provider [phone] Encounter Details Date Type Department Care Team (Latest Contact Info) Description 12/20/2015 10:52 EDT - 12/20/2015 23:52 EDT Hospital Encounter [facility] [address] [place] [address] Navdeep Hurd MD [address] [place] [address] [address] Discharge Disposition: Home or Self [...] no need to beNPO or have a regional dedicated truck driver. However, his will be accompanying him. They are [place] someone to the airport [place] 1000 and then will come here and check-in around 1145. He agrees to have a shower. documented in this encounter Procedure Notes * Fantasma Dhillon MD - 12/20/2015 1356 EDT IR Brief Procedure Note Attending: Leo Bankruptcy Manager: Alejo Pre-op Dx: Arrhythmia, need for pacemaker [...] 12/19 documented in this encounter Care Teams Vascular Technologist Relationship Specialty Start Date End Date Clem Olvera MD [address] [place] [address] PCP - General 12/18/15 documented as of this encounter
--- OUTSIDE RECORDS SUMMARY | 2023-11-24 08:12 | XMS_ITS | Encounter Summary ---
Author Organization [facility] [place] [address] Care Team Providers Care Almond Pan Finisher Name Role Phone Clem Olvera MD Primary Care Provider [phone] Reason for Visit * Reason Comments Follow Up Fracture SP PATELLA FX DO12/12 DOI 03/30/10 Encounter Details Date Type Department Care Team (Late st Contact Info) Description 04/09/2011 1:30 PM EST Office [place] [address] Jairon Gustafson MD [facility] [place] [address] Jose Francisco Bee PA [facility] [address] Patella fracture (Primary Dx) Discharge Disposition: Home [...] AM EDT Hospital Encounter Non-[place] [address] Arrived documented as of this encounter Visit Diagnoses Diagnosis Patella fracture- Primary Closed fracture of patella documented in this encounter Care Teams Almond Pan Finisher Relationship Specialty Start Date End Date Clem Olvera MD [address] [place] [address] PCP - General 04/09/11 02/24/19 documented as of this encounter
--- OUTSIDE RECORDS SUMMARY | 2023-11-24 08:12 | XMS_ITS | Encounter Summary ---
[place] [address] Care Team Providers Care Boiler Tenders Supervisor Name Role Phone Marques Martinez MD Primary Care Provider [phone] Encounter Details Date Type Department Care Team (Late st Contact Info) Description 06/12/2010 2:00 PM EST Procedure visit [place] [address] Social History Tobacco Use Types Packs/Day Years [...] AM EDT Hospital Encounter Non-Invasive [place] [address] Arrived documented as of this encounter Visit Diagnoses Not on filedocumented in this encounter Care Teams Boiler Tenders Supervisor Relationship Specialty Start Date End Date Marques Martinez MD [address] [place] [address] PCP - General 04/01/10 04/08/11 documented as of this encounter
--- OUTSIDE RECORDS SUMMARY | 2023-11-24 08:12 | XMS_ITS | Encounter Summary ---
[place] [address] Care Team Providers Care Printmaker Name Role Phone Donny Cooper MD Primary Care Provider [phone] Encounter Details Date Type Department Care Team (Late st Contact Info) Description 06/14/2020 Telephone Cardiology at [address] [phone] Nhung Briggs Social History Tobacco Use Types [...] He would like to be seen at [facility]. Email sent to Brittaney Hernandez at [facility] asking her to reach out to pt to set up the appt with either Dr. Arguelles or LANG Albert. Nhung Allen Electrophysiology Scheduling [id number] option 2 documented in this encounter Plan of Treatment Upcoming Encounters Date Type Department Care Team (Late st Contact Info) Description 02/02/2024 10:00 AM EDT Hospital Encounter Non-[place] [address] Arrived documented as of this encounter Visit Diagnoses Not on filedocumented in this encounter Care Teams Printmaker Relationship Specialty Start Date End Date Donny Cooper MD [address] [place] [address] PCP - General Family Medicine 02/25/19 documented as of this encounter
[2023-11-26 08:00] VITALS: BP 113/57; PULSE 70
--- OUTSIDE RECORDS SUMMARY | 2023-11-26 11:10 | XMS_ITS | Clinical Summary ---
Author Organization [facility] [place] [address] Care Team Providers Care Crop Or Livestock Tenant Farmer Name Role Phone Donny Cooper MD Primary Care Provider [phone] Allergies No known active allergies Medications Medication [...] PM EDT Hospital Encounter Non-Invasive [place] [address] Discharge Disposition: Home from Last 3 Months [...] AM EDT Hospital Encounter Non-Invasive [place] [address] Arrived Health Maintenance Due Date Last Done Comments Tdap adult 08/19/1959 Tetanus vaccine 08/19/1959 Zoster vaccine (1 of 2) 1990 Advance Directive 08/19/1995 Pneumoccocal Vaccine: 65+ (2 of 2 - PCV) 05/04/2009 05/04/2008 Covid-19 Vaccine ( - 2022- season) 2023 Influenza (Flu) vaccine (1 o f 1 - Influenza standard series) 01/03/2024 02/01/2010, 03/06/2006, 02/24/2005 Medical Devices Implanted Type Area Behavioral Health Tech Device Identifier Shelf Expiration Date Model / Serial / Lot Mdt : [id number] : [id number] Implanted: (Quantity not on file) Cardiac Resynchronization Therapy - Defibrillator Chest [employer] - [id number] / [id number] / Procedures Procedure Name Priority Date/Time Associated Diagnosis Comments PRO ICD INTERROGATION REMOTE UP TO 90 DAYS Routine 09/08/2023 5:26 AM EDT from Last 3 Months Results * Cardiac Device Check - Remote (09/08/2023 5:26 AM EDT) Anatomical Region Laterality Modality Other 09/08/2023 5:26 AM EDT Alber Seals MD IMPLANTABLE CARDIAC DEVICE from Last 3 Months Care Teams Crop Or Livestock Tenant Farmer Relationship Specialty Start Date End Date Donny Cooper MD [address] [place] [address] PCP - General Family Medicine 02/25/19
--- OUTSIDE RECORDS SUMMARY | 2023-11-26 11:10 | XMS_ITS | Encounter Summary ---
Author Organization [facility] Address [address] [place] [address] Care Team Providers Care Recyclable Products Sorter Name Role Phone Clem Olvera MD Primary Care Provider Reason for Visit * Reason Onset Date Comments Other 04/04/2019 Transfer request for Pacer [place] at [facility] Encounter Details Date Type Department Care Team (Late st Contact Info) Description 04/04/2019 Telephone [facility] Card[facility] Clinic [address] [place] [address] Giselle Hill, DENTISTRY PROFESSOR Other (Transfer request for Pacer Care at [facility]) Social History Tobacco Use Types Packs/Day Years [...] 04/04/2019 1503 EST I went into the [employer] Website and released pt to [facility] as requested. * Telephone Encounter - Suze Reynoso - 04/04/2019 1342 EST PT WILL BE HAVING HIS PACER CARE DONE AT [facility], PLEASE RELEASE HIS REMOTE MONITORING SO THAT THEY CAN PICK IT UP documented in this encounter Plan of Treatment Not on file documented as of this encounter Visit Diagnoses Not on filedocumented in this encounter Care Teams Recyclable Products Sorter Relationship Specialty Start Date End Date Clem Olvera MD [address] [place] [address] PCP - General 12/18/15 documented as of this encounter
--- OUTSIDE RECORDS SUMMARY | 2023-11-26 11:10 | XMS_ITS | Encounter Summary ---
Author Organization [facility] Address [address] [place] [address] Care Team Providers Care Therapeutic Consultant Name Role Phone Clem Olvera MD Primary Care Provider [phone] Reason for Referral * (Routine) - Closed Specialty Diagnoses / Procedures Referred By Pedro madera Referred To Contact Beatrice De La Garza NP [address] [place] [phone] Referral ID Status Reason Start Date Expiration Date V isits Requested Visits Authorized [id number] Closed Specialty Services Required 02/27/2016 1 1 Comments You must contact us if we have not contacted you or you have missed your scheduled appointment. If you have any nursing questions, please don't hesitate to call the Cardiac Arrhythmia Service at [facility] at or , extension [phone]. For any scheduling of appointments, please call [phone] or , extension [phone]. . * (Routine) - Closed Specialty Diagnoses / Procedures Referred By Pedro madera Referred To Contact Beatrice De La Garza NP [address] [address] Referral ID Status Reason Start Date Expiration Date V isits Requested Visits Authorized [id number] Closed Specialty Services Required 02/27/2016 1 1 Comments You have a pre existing appointment with Dr. Olvera on March 05 at 2:00, please have Dr. Olvera check your incision at that visit. * (Routine) - Closed Specialty Diagnoses / Procedures Referred By Contbecca t Referred To Contact Beatrice De La Garza NP [address] [phone] Referral ID Status Reason Start Date Expiration Date V isits Requested Visits Authorized [id number] Closed Specialty Services Required 02/27/2016 1 1 [...] scheduled at your first appointment. - [facility] Cardiology is located at [facility] in [place] -Clinics are also held in [facility], and [place], [place] and [facility]. If you live in those areas, we will make arrangements for follow-up appointments in one of those clinics.. Encounter Details Date Type Department Care Team (Late st Contact Info) Description 02/27/2016 6:30 EDT - 02/28/2016 13:39 EDT Hospital Encounter [facility] Cardiac/Telemetry Unit [address] [place] [address] Gulshan Drummond MD PhD [address] [phone] Gulshan Montoya Sa, MD [facility] [address] [place] [phone] AICD lead malfunction, subsequent encounter; ICD [...] EF of 20-25% status post silent inferior ME in the early . 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 He had heart failure symptoms that started around May 2013, when he was in [place], [place]. This triggered major cardiac workup including [...] then underwent a device upgrade to a SOLID WASTE TECHNICIAN-D device with biventricular pacing for his EF [...] been followed in cardiology outreach clinic at [facility] in [place]. Continued high pacing threshold on the epicardial [...] and plans to follow up with his Rotary Drill Operator in [place] in 6-8 weeks for which he will arrange once he has arrived in [place]. He has been provided with the implant [...] HGBA1C Discharge Follow Up Appointments Scheduled with [facility] Appointments Outside of [facility] We Will Schedule Studies We Will Schedule Appointments We Recommend but have not been Scheduled Beatrice De La Garza NP 02/27/2016 10:59 Associated attestation - Gulshan Montoya Sa, MD - 02/28/2016 1519 EDT Attending Attestation: I saw and evaluated the patient. I discussed the case with the resident/INTERNAL INVESTIGATOR/fellow and agree with the findings and plan as documented above. Gulshan bullock Sa, MD Cardiac Electrophysiology documented in this encounter Discharge Instructions * Appointments* Beatrice De La Garza NP - 02/27/2016 11:[address] Olvera on 03/05/16 at 2:00 as previously scheduled for a routine visit and for a check of your incision. Follow up with Giselle Hill NP at the [facility] in May, you will be notified [...] Notes * Lou Alfonso RN - 02/28/2016 7175 EDT Pt awaiting discharge. IV and tele was removed by primary nurse. This RN administered flu shot and provided flu information sheet. AVS and medications reviewed by RN with patient and . AVS statedcoreg was 3.25mg BID, which pt states no, they must have copied it down wrong. I'm not doing that.We've been through this in [place]. It makes me pass out. RN suggested checking with team, which pt denied and states I wont take it twice a day. He did agree to review this medication with his electronic typesetting machine operator and plans to remain on his home dosing, which was in the morning. He received dose this am. Ptleft via wheelchair with . * Beatrice Rodriguez - 02/28/2016 1329 EDT Brief visit with patient and as they were being discharged. Patient states he is independent in self care and home management. He feels well supported by friends and neighbors. Patient has Medicare and [facility]. [facility] No needs identified at time of discharge. will provide transportation. Beatrice Rodriguez RN Case Manager #[id number] documented in this encounter H&P Notes * Navdeep Hurd MD - 02/27/2016 0830 EDT Cardiology Admitting H&P Admit Date: 02/27/2016 Date of Service: 02/27/2016 PCP: Clem Olvera Code Status: Full Code Chief Complaint: FINN, device battery depletion, high pacing threshold on epicardial lead HPI: 74-year-old man with coronary artery disease and ischemic cardiomyopathy status post silent inferior ME in the early . 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 He had heart failure symptoms that started around May 2013, when he was in [place], [place]. This triggered major cardiac workup including [...] point, his device was upgraded to a SOLID WASTE TECHNICIAN-D device with biventricular pacing. By the patient's [...] been followed in cardiology outreach clinic at [facility] in [place]. Continued high pacing threshold on the epicardial LV lead has caused a very rapid battery depletion. Dr. David Adams in [place] recommended against lead extraction and reimplant as [...] Pacemaker insertion 2002 2013 second pacemaker [facility] Social History Family History Social History Substance Use Topics ??? Smoking status: Former Smoker Years: 35.00 Quit date: 1989 ??? Smokeless tobacco: Not on file ??? Alcohol use 6.6 oz/week 6 Cans of beer, 5 Glasses of wine per week , lives with , retired. Spends leong in [place]. Spends the chery in [place], [place]. Quit smoking in 1990. Has 2 [...] and ischemic cardiomyopathy status post silent inferior ME in the early . Also diagnosed with [...] point, his device was upgraded to a SOLID WASTE TECHNICIAN-D device with biventricular pacing with a surgically [...] EST) 03/12/2016 12:4 3 EST Scan 2 Stemhole Borer PROCEDURE/MINOR JUDD GICAL ORDERABLES * ECG REPORT - SCANNED (03/04/2016 14:06 EDT) 03/04/2016 14:0 6 EDT Scan 2 Stemhole Borer PROCEDURE/MINOR JUDD GICAL ORDERABLES * ECG REPORT - SCANNED (03/04/2016 14:06 EDT) 03/04/2016 14:0 6 EDT Scan 2 Stemhole Borer PROCEDURE/MINOR JUDD GICAL ORDERABLES * IMPLANT RECORD - SCANNED (03/04/2016 14:06 EDT) 03/04/2016 14:0 6 EDT Scan 2 Stemhole Borer PROCEDURE/MINOR JUDD GICAL ORDERABLES * ECG REPORT - SCANNED (03/01/2016 8:58 EDT) 03/01/2016 8:58 EDT Scan 2 Stemhole Borer PROCEDURE/MINOR JUDD GICAL ORDERABLES * ECG REPORT - SCANNED (03/01/2016 8:58 EDT) 03/01/2016 8:58 EDT Scan 2 Stemhole Borer PROCEDURE/MINOR JUDD GICAL ORDERABLES * CHEST PA [...] IMAGING ORDERABLES * HEMAGRAM (02/28/2016 5:44 EDT) [facility] WBC 9.84 4.0 - 10.4 K/cmm 02/28/2016 6:26 EDT [facility] RBC 4.42 4.36 - 5.78 M/cmm 02/28/2016 6:26 T [facility] Hemoglobin 14.2 13.8 - 17.3 gm/dl 02/28/2016 6:26 [facility] HCT 40.9 39.5 - 50.2 % 02/28/2016 6:26 [facility] MCV 93 81 - 95 fl 02/28/2016 6:26 [facility] MCH 32.1 27.6 - 33.0 pg 02/28/2016 6:26 [facility] MCHC 34.7 32.8 - 36.4 gm/dl 02/28/2016 6:26 [facility] RDW-CV 13.1 11.8 - 14.1 % 02/28/2016 6:26 [facility] RDW-SD 44.6 36.5 - 45.9 fl 02/28/2016 6:26 [facility] PLT 151 141 - 377 K/cmm 02/28/2016 6:26 [facility] MPV 11.2 9.5 - 12.7 fl 02/28/2016 6:26 [facility] Blood specimen (specimen) BLOOD SPECIMEN / Unknown 02/28/2016 5:44 EDT 02/28/2016 6:13 EDT Beatrice De La Garza NP HEMATOLOGY & PF4 ORDERABLES [facility] [address] [place] [address] * (ABNORMAL) CREATININE (02/28/2016 5:44 EDT) Creatinine 0.65(L) 0.66 - 1.25 mg/dl 02/28/2016 6:48 EDT [facility] GFR, Calculated 95 >60 ml/min/1.7 3m2 02/28/2016 6:48 EDT [facility] Comment: eGFR calculated using CKD-EPI equation for non Americans. Multiply eGFR by 1.16 for Americans. Blood specimen (specimen) BLOOD SPECIMEN / Unknown 02/28/2016 5:44 EDT 02/28/2016 6:13 EDT Beatrice De La Garza NP CHEMISTRY & B LOOD GAS ORDERABLES Performing Organization Address [facility]/ZIP Co de Phone Number [facility] [address] [place] [address] * BUN (02/28/2016 5:44 EDT) BUN 14 10 - 26 mg/dl 02/28/2016 6:48 EDT [facility] Blood specimen (specimen) BLOOD SPECIMEN / Unknown 02/28/2016 5:44 EDT 02/28/2016 6:13 EDT Beatrice De La Garza INTERNAL INVESTIGATOR CHEMISTRY & B LOOD GAS ORDERABLES Performing Organization Address [facility] Co de Phone Number [facility] [address] [place] [address] * ELECTROLYTES (02/28/2016 5:44 EDT) Sodium 138 136 - 145 mEq/L 02/28/2016 6:48 EDT [facility] Potassium 4.7 3.5 - 5.0 mEq/L 02/28/2016 6:48 EDT [facility] Chloride 104 96 - 110 mEq/L 02/28/2016 6:48 EDT [facility] CO2 25 22 - 32 mEq/L 02/28/2016 6:48 EDT [facility] Comment:Note new reference r hong 02/19/16 Blood specimen (specimen) BLOOD SPECIMEN / Unknown 02/28/2016 5:44 EDT 02/28/2016 6:13 EDT Beatrice De La Garza NP CHEMISTRY & B LOOD GAS ORDERABLES [facility] [address] [place] [address] * PORTABLE CHEST 1 VIEW (02/27/2016 12:46 [...] 12:41 EDT) 02/27/2016 12:4 1 EDT Narrative [facility] E[facility] - 02/28/2016 8:57 EDT ? [facility] ? Test Date: ?2016-02-27 Pat Name: ? NABIL IGLESIAS ? Department: ?? [facility] 5 ? Room: ? MW514 Gender: ? M ?Probation Agent: ?? [id number] : ?1940 ? Requested By: KAIN REED L Order Number: [id number] ? Reading MD: ?? BRAYAN CUENCA MD ? Measurements Intervals ?[place] ? Rate: ? 63 ? P: ?15 AZ: ? 159 ?QRS: ?234 QRSD: ? 156 ?T: ?15 QT: ? 479 ? QTc: ?493 ? Interpretive Statements ELECTRONIC VENTRICULAR PACEMAKER Compared to ECG 02/27/2016 08:10:34 No significant changes I reviewed the tracing and have either agreed or edited the findings in this report. Electronically Signed On 02-28-16 08:57:02 EDT by BRAYAN CUENCA MD. Procedure Note Brayan Cuenca MD - 02/28/2016 [facility] Test Date: 2016-02-27 Pat Name: NABIL IGLESIAS Department: [place] [address] Room: [facility] Gender: M Probation Agent: [id number] : 1940 Requested By: KAIN Gallagher Order Number: [id number] Reading MD: BRAYAN CUENCA MD Measurements Intervals [place] Rate: 63 P: 15 [place]: 159 QRS: 234 QRSD: 156 T: 15 QT: 479 QTc: 493 Interpretive Statements ELECTRONIC VENTRICULAR PACEMAKER Compared to ECG 02/27/2016 08:10:34 No significant changes I reviewed the tracing and have either agreed or edited the findings inthis report. Electronically Signed On 02-28-16 08:57:02 EDT by BRAYAN BEEBE. Gulshan Drummond MD PhD CARDIA C ECG ORDERABLES [facility] EKG * PROTIME (02/27/2016 8:45 EDT) Pro Time 12.3 10.3 - 13.1 secs 02/27/2016 9:10 EDT [facility] Comment: New prothrombin t josue range effective 01/29/16 I.N.R. 1.1 0.9 - 1.1 Ratio 02/27/2016 9:10 EDT [facility] Comment: Moderate Intensity Coumadin INR = 2.0-3.0 Adjustments in anticoagulant therapy dose should be based upon the INR and NOT the Pro Time. Blood specimen (specimen) BLOOD SPECIMEN / Unknown 02/27/2016 8:45 EDT 02/27/2016 8:54 EDT Gulshan Drummond MD PhD HEMATO LOGY & PF4 ORDERABLES [facility] [address] [place] [address] * HEMAGRAM (02/27/2016 8:45 EDT) WBC 6.47 4.0 - 10.4 K/cmm 02/27/2016 8:57 EDT [facility] RBC 4.51 4.36 - 5.78 M/cmm 02/27/2016 8:57 EDT [facility] Hemoglobin 14.7 13.8 - 17.3 gm/dl 02/27/2016 8:57 EDT [facility] HCT 41.7 39.5 - 50.2 % 02/27/2016 8:57 EDT [facility] MCV 93 81 - 95 fl 02/27/2016 8:57 EDT [facility] MCH 32.6 27.6 - 33.0 pg 02/27/2016 8:57 EDT [facility] MCHC 35.3 32.8 - 36.4 gm/dl 02/27/2016 8:57 T [facility] RDW-CV 13.1 11.8 - 14.1 % 02/27/2016 8:57 EDT [facility] RDW-SD 44.0 36.5 - 45.9 fl 02/27/2016 8:57 EDT [facility] PLT 176 141 - 377 K/cmm 02/27/2016 8:57 EDT [facility] MPV 10.7 9.5 - 12.7 fl 02/27/2016 8:57 EDT [facility] Blood specimen (specimen) BLOOD SPECIMEN / Unknown 02/27/2016 8:45 EDT 02/27/2016 8:54 EDT Gulshan Drummond MD PhD HEMATO LOGY & PF4 ORDERABLES [facility] [address] [place] [address] * ELECTROLYTES (02/27/2016 8:45 EDT) Sodium 142 136 - 145 mEq/L 02/27/2016 9:13 EDT [facility] Potassium 4.7 3.5 - 5.0 mEq/L 02/27/2016 9:13 EDT [facility] Chloride 103 96 - 110 mEq/L 02/27/2016 9:13 EDT [facility] CO2 27 22 - 32 mEq/L 02/27/2016 9:13 EDT [facility] Comment:Note new reference r hong 02/19/16 Blood specimen (specimen) BLOOD SPECIMEN / Unknown 02/27/2016 8:45 EDT 02/27/2016 8:54 EDT Gulshan Drummond MD PhD CHEMIS TRY & BLOOD GAS ORDERABLES Performing Organization Address [facility] de Phone Number [facility] [address] [place] [address] * CREATININE (02/27/2016 8:45 EDT) Creatinine 0.69 0.66 - 1.25 mg/dl 02/27/2016 9:13 EDT [facility] GFR, Calculated 93 >60 ml/min/1.7 3m2 02/27/2016 9:13 EDT [facility] Comment: eGFR calculated using CKD-EPI equation for non Americans. Multiply eGFR by 1.16 for Americans. Blood specimen (specimen) BLOOD SPECIMEN / Unknown 02/27/2016 8:45 EDT 02/27/2016 8:54 EDT Gulshan Drummond MD PhD CHEMIS TRY & BLOOD GAS ORDERABLES Performing Organization Address [facility] Co de Phone Number [facility] [address] [place] [address] * BUN (02/27/2016 8:45 EDT) BUN 17 10 - 26 mg/dl 02/27/2016 9:13 EDT [facility] Blood specimen (specimen) BLOOD SPECIMEN / Unknown 02/27/2016 8:45 EDT 02/27/2016 8:54 EDT Gulshan Drummond MD PhD CHEMIS TRY & BLOOD GAS ORDERABLES [facility] [address] [place] [address] * EKG 12-LEAD (02/27/2016 8:08 EDT) 02/27/2016 8:08 EDT Narrative [facility] EKG - 02/28/2016 9:01 EDT ? [facility] ? Test Date: ?2016-02-27 Pat Name: ? NABIL IGLESIAS ? Department: ?? [facility] ? Room: ? RO9791 Gender: ? M ?Probation Agent: ?? [id number] : ?1940 ? Requested By: MARCIA Boo Order Number: [id number] ? Julia WRIGHT: ?? BRAYAN CUENCA MD ? Measurements Intervals ?[place] ? Rate: ? 69 ? P: ?147 AZ: ? 134 ?QRS: ?-67 QRSD: ? 160 [...] Note Brayan Cuenca MD - 02/28/2016 [facility] Test Date: 2016-02-27 Pat Name: NABIL IGLESIAS Department: [facility] Room: NJ9384 Gender: M Probation Agent: [id number] : 1940 Requested By: MARCIA Boo Order Number: [id number] Reading MD: BRAYAN CUENCA MD Measurements Intervals [place] Rate: 69 P: 147 AZ: 134 QRS: -67 QRSD: 160 T: -59 QT: 434 QTc: 467 Interpretive Statements ELECTRONIC ATRIAL PACEMAKER ELECTRONIC VENTRICULAR PACEMAKER Compared to ECG 02/27/2016 08:08:46 No significant changes I reviewed the tracing and have either agreed or edited the findings inthis report. Electronically Signed On 02-28-16 09:01:04 EDT by BRAYAN BEEBE. Navdeep Hurd MD CARDIAC ECG ORD ERABLES [facility] EKG documented in this encounter Visit [...] Reason: Other - Comment: pt already took DIRECTOR WRITING, takes other meds at HS) 921 (Given [...] Reason: Other - Comment: pt already took DIRECTOR WRITING, takes other meds at HS)2100 (Given - Provider: Mady Bruno RN) spironolactone (ALDACTONE) tablet 12.5 mg 12.5 mg, oral, DAILY, First dose on Thu02/27/16 at 1245, Until Discontinued, Routine 1306 (Not Given - Provider: Nneka Stuart RN - Reason: Other - Comment: pt already took DIRECTOR WRITING, takes other meds at HS)2102 (Given - Provider: Mady Bruno RN) tamsulosin (FLOMAX) capsule 0.4 mg 0.4 mg, oral, DAILY, First dose on Thu02/27/16 at 1245, Until Discontinued, Routine 1306 (Not Given - Provider: Nneka Stuart RN - Reason: Other - Comment: pt already took DIRECTOR WRITING, takes other meds at HS) 921 (Given [...] 02/02 documented in this encounter Care Teams Therapeutic Consultant Relationship Specialty Start Date End Date Clem Olvera MD [address] [place] [address] PCP - General 12/18/15 documented as of this encounter
--- OUTSIDE RECORDS SUMMARY | 2023-11-26 11:10 | XMS_ITS | Clinical Summary ---
Author Organization [facility] Address [address] [place] [address] Care Team Providers Care Drawer Fitter Name Role Phone Clem Olvera MD Primary Care Provider [phone] Allergies No known active allergies Medications Medication [...] PACEMAKER INSERTION 05/04/2002 - 05/03/20032013 second pacemaker [facility] Medical History Medical History Date Comments CAD [...] Advance Directives For more information, please contact: [phone] * Full Code (Latest Code Status on File) Date Activated Date Inactivated Comments 02/27/2016 8:49 02/28/2016 15:40 Question Answer Comments Reason for decision includes: Full code consistent with overall plan of care Who participated in the discussion? Not Discusse d Care Teams Drawer Fitter Relationship Specialty Start Date End Date Clem Olvera MD [address] [place] [address] PCP - General 12/18/15
--- OUTSIDE RECORDS SUMMARY | 2023-11-26 11:10 | XMS_ITS | Encounter Summary ---
Author Organization [facility] Address [address] [place] [address] Care Team Providers Care Raise Miner Name Role Phone Unavailable Primary Care Provider Unavailabl e Encounter Details Date Type Department Care Team (Late st Contact Info) Description 05/06/2001 Results Only [facility] [address] [place] [address] Hernandez Partida MD [address] [place] [phone] Social History Tobacco Use Types Packs/Day Years [...] is submitted entirely in cassette (B). ??(Naty Caal)/[facility] End of Report [facility] 05/06/2001 05/07/2001 9:2 5 EST Hernandez Partida MD PATHOLOGY ORDERABLES [facility] [address] [place] [address] documented in this encounter Visit Diagnoses Not on filedocumented in this encounter
--- OUTSIDE RECORDS SUMMARY | 2023-11-26 11:10 | XMS_ITS | Encounter Summary ---
Author Organization [facility] Address [address] [place] [address] Care Team Providers Care Boat Outfitting Supervisor Name Role Phone Unknown, Provider Primary Care Provider [phone] Clem Olvera MD Primary Care Provider [phone] Encounter Details Date Type Department Care Team (Late st Contact Info) Description 11/29/2015 Pre-Procedure Orders Encounter [facility] [address] [place], [place] [id number] Navdeep Hurd MD [address] [place] [address] [address] Social History Tobacco Use Types [...] Patient: Nabil Streeter. Attending: Dr. Moran Scrrajinder Back End Web Developer: Dr. Fantasma Dhillon History/indication: The patient is [...] Patient: Nabil Streeter Attending: Dr. Dean Bailey Back End Web Developer: Dr. Fanatsma Dhillon History/indication: The patient is a 75-year-old [...] on filedocumented in this encounter Care Teams Boat Outfitting Supervisor Relationship Specialty Start Date End Date Unknown, Provider, PCP - General 12/06/12 12/17/15 Clem Olvera MD [address] [place] [address] PCP - General 12/18/15 documented as of this encounter
--- OUTSIDE RECORDS SUMMARY | 2023-11-26 11:10 | XMS_ITS | Encounter Summary ---
[place] [address] Care Team Providers Care Smooth Stucco Resurfacer Name Role Phone Donny Cooper MD Primary Care Provider [phone] Encounter Details Date Type Department Care Team (Latest Contact Info) Description 08/06/2023 10:00 AM EDT - 08/06/2023 11:59 PM EDT Hospital Encounter Non-Invasive [place] [address] Discharge Disposition: Home Social History Tobacco Use [...] AM EDT Hospital Encounter Non-Invasive [place] [phone] Arrived documented as of this encounter Visit Diagnoses Not on filedocumented in this encounter Care Teams Smooth Stucco Resurfacer Relationship Specialty Start Date End Date Donny Cooper MD [address] [place] [address] PCP - General Family Medicine 02/25/19 documented as of this encounter
--- OUTSIDE RECORDS SUMMARY | 2023-11-26 11:10 | XMS_ITS | Encounter Summary ---
Author Organization [facility] Address [address] [place] [address] Care Team Providers Care Electronic Commerce Specialist Name Role Phone Clem Olvera MD Primary Care Provider [phone] Reason for Visit * Reason Onset Date Comments Appointment Related 10/23/2016 Check for fo llow up of pacer Encounter Details Date Type Department Care Team ([facility] Contact Info) Description 10/23/[address] [facility] Cardiology - [address] [place] [address] Pacemaker, Pace Appointment Related (Check [...] that Nabil had his pacemaker checked in [place] where they are for the winter. They have some back and are being followed by Dr. Hurd at [facility]. documented in this encounter Plan of Treatment Not on file documented as of this encounter Visit Diagnoses Not on filedocumented in this encounter Care Teams Electronic Commerce Specialist Relationship Specialty Start Date End Date Clem Olvera MD [address] [place] [address] PCP - General 12/18/15 documented as of this encounter
--- OUTSIDE RECORDS SUMMARY | 2023-11-26 11:10 | XMS_ITS | Encounter Summary ---
Author Organization [facility] Address [address] [place] [address] Care Team Providers Care Slot Attendant Name Role Phone Unavailable Primary Care Provider Unavailabl e Encounter Details Date Type Department Care Team (Late st Contact Info) Description 12/02/2012 Results Only [facility] Services - [facility] ([facility] [place] [address] [place] [address] [id number] Satinder Edwards MD [address] [place] [address] Social History Tobacco Use Types Packs/Day Years [...] ? NABIL IGLESIAS ? Accession #: ? [id number] ? : ? 1940 (Age: 72) ??M [...] MD PATHOLOGY ORDERABLE S Performing Organization Address City/State/[facility] Co de Phone Number DIVYA BERRY [address] [place] [address] documented in this encounter Visit Diagnoses Not on filedocumented in this encounter
--- OUTSIDE RECORDS SUMMARY | 2023-11-26 11:10 | XMS_ITS | Encounter Summary ---
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 Procedures IMPLANTABLE CARDIAC DEFIBRILLATOR PROCEDURE Navdeep Hurd MD [address] [place], [place] [address] [address] [place] [address] Referral ID Status Reason Start Date Expiration Date Visits Re quested Visits Authorized [id number] Closed 02/13/2016 1 1 Encounter Details Date Type Department Care Team (Latest Contact Info) Description 02/13/2016 Pre-Procedure Orders Encounter [facility] CARDIOLOGY [address] [place], [place] [address] Navdeep Hurd MD [address] [facility] [address] [place] [address] ICD (implantable cardioverter-defibril lator) battery [...] 8 EDT Narrative 02/27/2016 15:17 EDT *Cardiology* [address] [place] [address] Lead Revision (Report amended ) Patient: Nabil Iglesias ?Study Date: ?02/27/2016 ? Accession #: ? [id number] : ? 1940 Referring: Clem Olvera Attending: [...] therefore over an 0.35 glide wire a iNck MENDOZAW 6F (formerly [facility]) 6 mm-40 mm balloon dilation still could [...] Venograms were performed in the MOORE and MAURITANIAN projections and a suitable mid-lateral LV branch [...] fascia. The leads were connected to a TICKET SORTER-D device. Device and Lead detail in table [...] Implanted device: Medtronic - Viva Quad XT TICKET SORTER-D DF4 - Serial number: [id number] Explanted device: Medtronic - Viva XT TICKET SORTER-D DF4 - Serial number: [id number]. LEAD PARAMETERS + + + + + [...] + + + + + Serial number [id number] ? [id number] ?? [id number] ?? [id number] ? + + + + [...] Gulshan Drummond MD - 05/12/2016 *Cardiology* [address] [place] [address] Lead Revision (Report amended ) Patient: Nabil [...] therefore over an 0.35 glide wire a [facility] ([facility]) 6 mm-40 mm balloon dilation still could [...] Venograms were performed in the MOORE and MAURITANIAN projections and a suitable mid-lateral LV branch [...] fascia. The leads were connected to a TICKET SORTER-D device. Device and Lead detail in table [...] Implanted device: Medtronic - Viva Quad XT TICKET SORTER-D DF4 - Serial number: [id number] Explanted device: Medtronic - Viva XT TICKET SORTER-D DF4 - Serial number: [id number]. LEAD PARAMETERS + + + + + + Lead # 1 2 3 4 + + + + + + Chamber RA RV LV LV + + + + + + Date 07/19/2002 07/18/2013 02/27/2016 07/18/2013 implanted + + + + + + Model St. Esa Medtronic Medtronic Enpath information [id number] Attain Epicardial Performa 4298 + + + + + + Serial number [id number] + + + + + + [...] situ documented in this encounter Care Teams Custodial Services Manager Relationship Specialty Start Date End Date Clem Olvera MD [address] [place] [address] PCP - General 12/18/15 documented as of this encounter
--- OUTSIDE RECORDS SUMMARY | 2023-11-26 11:10 | XMS_ITS | Encounter Summary ---
[place] [address] Care Team Providers Care Ash Kier Boiler Name Role Phone Donny Cooper MD Primary Care Provider [phone] Encounter Details Date Type Department Care Team (Latest Contact Info) Description 11/04/2023 10:00 AM EDT - 11/04/2023 11:59 PM EDT Hospital Encounter Non-Invasive [place] [address] Discharge Disposition: Home Social History Tobacco Use [...] AM EDT Hospital Encounter Non-Invasive [place] [address] Arrived documented as of this encounter Procedures [...] on filedocumented in this encounter Care Teams Ash Kier Boiler Relationship Specialty Start Date End Date Donny Cooper MD [address] [place] [address] PCP - General Family Medicine 02/25/19 documented as of this encounter
--- OUTSIDE RECORDS SUMMARY | 2023-11-26 11:10 | XMS_ITS | Encounter Summary ---
Author Organization [facility] Address [address] [place] [address] Care Team Providers Care Raw Material Handler Name Role Phone Clem Olvera MD Primary Care Provider Encounter Details Date Type Department Care Team (Late st Contact Info) Description 03/16/2019 Abstract [facility] [address] [place] [address] Ronal Avelar, JADON AV block, 2nd degree [...] Laterality Modality Device Narrative 03/24/2019 10:30 EST [facility] Cardiology Device Visit Hemstitcher: Thermodynamic Process Controltronic Device Type: FORM MAKER PLASTER-D Service: Remote ? 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
--- OUTSIDE RECORDS SUMMARY | 2023-11-26 11:10 | XMS_ITS | Encounter Summary ---
Author Organization [facility] Address [address] [place] [address] Care Team Providers Care Spa Host Name Role Phone Clem Olvera MD Primary Care Provider Encounter Details Date Type Department Care Team (Latest Contact Info) Description 12/20/2015 10:52 EDT - 12/20/2015 23:52 EDT Hospital Encounter [facility] Cardiovascular Unit [address] [place] [address] Navdeep Hurd MD [address] [place] [address] [address] Discharge Disposition: Home or Self [...] no need to beNPO or have a food mobile driver. However, his will be accompanying him. They are driving someone to the airport [place] 1000 and then will come here and check-in around 1145. He agrees to have a shower. documented in this encounter Procedure Notes * Fantasma Dhillon MD - 12/20/2015 1356 EDT IR Brief Procedure Note Attending: Leo Senior Policy Advisor: Alejo Pre-op Dx: Arrhythmia, need for pacemaker [...] 12/19 documented in this encounter Care Teams Spa Host Relationship Specialty Start Date End Date Clem Olvera MD [address] [place] [address] PCP - General 12/18/15 documented as of this encounter
--- OUTSIDE RECORDS SUMMARY | 2023-11-26 11:10 | XMS_ITS | Referral Summary ---
Author Organization [facility] Address [address] [place] [address] Care Team Providers Care Classroom Instructional Aide Name Role Phone Clem Olvera MD Primary Care Provider [phone] Allergies No known active allergies Medications Medication [...] Advance Directives For more information, please contact: [phone] * Full Code (Latest Code Status on File) Date Activated Date Inactivated Comments 02/27/2016 8:49 02/28/2016 15:40 Question Answer Comments Reason for decision includes: Full code consistent with overall plan of care Who participated in the discussion? Not Discusse d Care Teams Classroom Instructional Aide Relationship Specialty Start Date End Date Clem Olvera MD [address] [place] [address]691 PCP - General 12/18/15
--- OUTSIDE RECORDS SUMMARY | 2023-11-26 11:11 | XMS_ITS | Encounter Summary ---
[place] [address] Care Team Providers Care Insurance Actuary Name Role Phone Marques Martinez MD Primary Care Provider [phone] Encounter Details Date Type Department Care Team (Late st Contact Info) Description 10/03/2010 [place] [address] Marina Orosco, JADON Social History Tobacco Use [...] AM EDT Hospital Encounter [place] [address] Arrived documented as of this encounter Visit Diagnoses Not on filedocumented in this encounter Care Teams Insurance Actuary Relationship Specialty Start Date End Date Marques Martinez MD [address] [place] [address] PCP - General 04/01/10 04/08/11 documented as of this encounter
--- OUTSIDE RECORDS SUMMARY | 2023-11-26 11:11 | XMS_ITS | Encounter Summary ---
Author Organization [facility] [place] [address] Care Team Providers Care Packing Machine Feeder Name Role Phone Clem Olvera MD Primary Care Provider [phone] Reason for Visit * Reason Comments Follow Up Fracture SP PATELLA FX DO12/12 DOI 03/30/10 Encounter Details Date Type Department Care Team (Late st Contact Info) Description 04/09/2011 1:30 PM EST Office Visit [place] [address] Jairon Gustafson MD [facility] [place] [address] Jose Francisco Bee PA [facility] [place] [address] Patella fracture (Primary Dx) Discharge Disposition: Home [...] AM EDT Hospital Encounter Non-Invasive [place] [address] Arrived documented as of this encounter Visit Diagnoses Diagnosis Patella fracture- Primary Closed fracture of patella documented in this encounter Care Teams Packing Machine Feeder Relationship Specialty Start Date End Date Clem Olvera MD [address] [place] [address] PCP - General 04/09/11 02/24/19 documented as of this encounter
--- OUTSIDE RECORDS SUMMARY | 2023-11-26 11:11 | XMS_ITS | Encounter Summary ---
Author Organization [facility] [place] [address] Care Team Providers Care Flexboard Operator Name Role Phone Donny Cooper MD Primary Care Provider [phone] Encounter Details Date Type Department Care Team (Latest Contact Info) Description 12/18/2020 11:57 AM EDT - 12/18/2020 11:59 PM EDT Hospital Encounter Non-Invasive Cardiology Lab [facility] [place] [address] Maged Arguelles MD [facility] [place] [address] Cardiomyopathy, primary Discharge Disposition: Home Social History [...] AM EDT Hospital Encounter Non-Invasive [place] [address] Arrived documented as of this encounter Procedures Procedure Name Priority Date/Time Associated Diagnosis Comments ICD INTERROGATION 3 MONTH Routine 12/18/2020 12:00 PM EDT Cardiomyopathy, primary documented in this encounter Results * ICD INTERROGATION 3 MONTH (12/18/2020 12:00 PM EDT) Anatomical Region Laterality Modality Other Narrative 12/23/2020 11:08 PM EDT MDT CARDIOLOGY NURSE PRACTITIONER-D remote reviewed. Normal device function. Inadequate CARDIOLOGY NURSE PRACTITIONER at 80%. Maged Arguelles MD [facility] Cardiac Electrophysiology 12/23/2020 11:06 PM Maged Arguelles MD IMPLANTABLE CARDIAC DEVICE documented in this encounter Visit Diagnoses Diagnosis Cardiomyopathy, primary Other primary cardiomyopathies documented in this encounter Care Teams Flexboard Operator Relationship Specialty Start Date End Date Donny Cooper MD [address] [facility] [place] [address] PCP - General Family Medicine 02/25/19 documented as of this encounter
--- OUTSIDE RECORDS SUMMARY | 2023-11-26 11:11 | XMS_ITS | Encounter Summary ---
[place] [address] Care Team Providers Care Fourth Hand Name Role Phone Donny Cooper MD Primary Care Provider [phone] Encounter Details Date Type Department Care Team (Late st Contact Info) Description 06/14/2020 Telephone Cardiology at [address] [address] Nhung Briggs Social History Tobacco Use Types [...] He would like to be seen at [facility]. Email sent to Brittaney Hernandez at [facility] asking her to reach out to pt to set up the appt with either Dr. Arguelles or LANG Albert. Nhung [place] Electrophysiology Scheduling [id number] option 2 documented in this encounter Plan of Treatment Upcoming Encounters Date Type Department Care Team (Late st Contact Info) Description 02/02/2024 10:00 AM EDT Hospital Encounter Non-Invasive [place] [address] Arrived documented as of this encounter Visit Diagnoses Not on filedocumented in this encounter Care Teams Fourth Hand Relationship Specialty Start Date End Date Donny Cooper MD [address] [place] [address] PCP - General Family Medicine 02/25/19 documented as of this encounter
--- OUTSIDE RECORDS SUMMARY | 2023-11-26 11:11 | XMS_ITS | Encounter Summary ---
Author Organization [facility] [place] [address] Care Team Providers Care Magazine Grinder Loader Name Role Phone Marques Martinez MD Primary Care Provider Encounter Details Date Type Department Care Team (Late st Contact Info) Description 09/11/2010 Orders [place] [address] Jairon Fenton MD [facility] [address] [place] [address] Fracture of patella, left, closed (Primary Dx) [...] AM EDT Hospital Encounter Non-[place] [address] Arrived documented as of this encounter Visit Diagnoses Diagnosis Fracture of patella, left, closed- Primary Closed fracture of patella documented in this encounter Care Teams Magazine Grinder Loader Relationship Specialty Start Date End Date Marques Martinez MD [address] [place] [address] PCP - General 04/01/10 04/08/11 documented as of this encounter
--- OUTSIDE RECORDS SUMMARY | 2023-11-26 11:11 | XMS_ITS | Encounter Summary ---
Author Organization [facility] [place] [address] Care Team Providers Care Filament Shaper Name Role Phone Donny Cooper MD Primary Care Provider [phone] Encounter Details Date Type Department Care Team (Late st Contact Info) Description 07/26/2019 Notes Only Cardiology at [address] [address] Maged Arguelles MD [facility] [place] [address] Social History Tobacco Use Types Packs/Day Years [...] his Medtronic biventricular ICD is reviewed. Suboptimal PUBLIC MESSAGE SERVICE SUPERVISOR at 84%. Normal device function. Awaiting Holter to assess PVC burden. Maged Arguelles MD [facility] Cardiac Electrophysiology 07/26/2019 9:04 AM documented in this encounter Plan of Treatment Upcoming Encounters Date Type Department Care Team (Late st Contact Info) Description 02/02/2024 10:00 AM EDT Hospital Encounter Non-Invasive [place] [address] Arrived documented as of this encounter Visit Diagnoses Not on filedocumented in this encounter Care Teams Filament Shaper Relationship Specialty Start Date End Date Donny Cooper MD [address] [place] [address] PCP - General Family Medicine 02/25/19 documented as of this encounter
--- OUTSIDE RECORDS SUMMARY | 2023-11-26 11:11 | XMS_ITS | Encounter Summary ---
[place] [address] Care Team Providers Care Welding Machine Operator Resistance Name Role Phone Donny Cooper MD Primary Care Provider [phone] Encounter Details Date Type Department Care Team [...] AM EDT Hospital Encounter Non-Invasive [place] [address] Arrived documented as of this encounter Visit Diagnoses Not on filedocumented in this encounter Care Teams Welding Machine Operator Resistance Relationship Specialty Start Date End Date Donny Cooper MD [address] [place] [address] PCP - General Family Medicine 02/25/19 documented as of this encounter
--- OUTSIDE RECORDS SUMMARY | 2023-11-26 11:11 | XMS_ITS | Encounter Summary ---
Author Organization [facility] [place] [address] Care Team Providers Care Tea Plantation Worker Name Role Phone Donny Cooper MD Primary Care Provider [phone] Encounter Details Date Type Department Care Team (Latest Contact Info) Description 10/03/2022 10:00 AM EDT Office Visit Cardiology at [address] [address] Eleno No, PA [facility] [place] [address] Cardiomyopathy, primary; Presence of cardiac resynchronization therapy defibrillator (FIELD STAFF MANAGER-D); Diaphragmatic stimulation by cardiac pacemaker, initial encounter [...] original note were not included. Cardiac Device FIELD STAFF MANAGER-D Programming Evaluation Nabil Iglesias [id number] 10/03/2022 History: Mr. 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 [...] AM EDT Hospital Encounter Non-[place] [address] Arrived documented as of this encounter Procedures Procedure Name Priority Date/Time Associated Diagnosis Comments EKG 12-LEAD Routine 10/03/2022 11:00 AM EDT Cardiomyopathy, primary Presence of cardiac resynchronization therapy defibrillator (FIELD STAFF MANAGER-D) Diaphragmatic stimulation by cardiac pacemaker, initial encounter documented in this encounter Results * EKG 12 Lead (10/03/2022 11:00 AM EDT) Ventricular rate 74 BPM MUSE SYSTEM Atrial Rate 74 BPM MUSE SYSTEM P-R Interval 154 ms MUSE SYSTEM QRS Duration 162 ms MUSE SYSTEM Q-T Interval 470 ms MUSE SYSTEM QTC Calculated (Bezet) 521 ms MUSE SYSTEM Calculated P [place] 30 degrees MUSE SYSTEM Calculated R [place] -98 degrees MUSE SYSTEM Calculated T [place] 41 degrees MUSE SYSTEM INTERPRETATION Atrial-sense d [...] cardiomyopathies Presence of cardiac resynchronization therapy defibrillator (FIELD STAFF MANAGER-D) Diaphragmatic stimulation by cardiac pacemaker, initial encounter documented in this encounter Care Teams Tea Plantation Worker Relationship Specialty Start Date End Date Donny Cooper MD [address] [facility] 1 [place] [address] PCP - General Family Medicine 02/25/19 documented as of this encounter
--- OUTSIDE RECORDS SUMMARY | 2023-11-26 11:11 | XMS_ITS | Encounter Summary ---
[place] [address] Care Team Providers Care Systems Security Consultant Name Role Phone Marques Martinez MD Primary Care Provider [phone] Encounter Details Date Type Department Care Team (Late st Contact Info) Description 06/12/2010 2:00 PM EST Procedure visit [place] [address] Social History Tobacco Use Types Packs/Day Years [...] AM EDT Hospital Encounter Non-[place] [address] Arrived documented as of this encounter Visit Diagnoses Not on filedocumented in this encounter Care Teams Systems Security Consultant Relationship Specialty Start Date End Date Marques Martinez MD [address] [place] [address] PCP - General 04/01/10 04/08/11 documented as of this encounter
--- OUTSIDE RECORDS SUMMARY | 2023-11-26 11:11 | XMS_ITS | Encounter Summary ---
Author Organization [facility] [place] [address] Care Team Providers Care Pipe Out Worker Name Role Phone Marques Martinez MD Primary Care Provider [phone] Encounter Details Date Type Department Care Team (Late st Contact Info) Description 05/01/2010 3:10 PM EST Office [place] [address] Jairon Fenton MD [facility] DR [place] [address] Discharge Disposition: Home Social History Tobacco Use [...] AM EDT Hospital Encounter Non-[place] [address] Arrived documented as of this encounter Visit Diagnoses Not on filedocumented in this encounter Care Teams Pipe Out Worker Relationship Specialty Start Date End Date Marques Martinez MD [address] [place] [address] PCP - General 04/01/10 04/08/11 documented as of this encounter
--- OUTSIDE RECORDS SUMMARY | 2023-11-26 11:11 | XMS_ITS | Encounter Summary ---
[place] [address] Care Team Providers Care Video Game Producer Name Role Phone Donny Cooper MD Primary Care Provider [phone] Encounter Details Date Type Department Care Team (Late st Contact Info) Description 03/17/2019 Telephone Cardiology at [address] [address] Sheri Quinn LNA Social [...] 11:46 AM EST Medication list reviewed with [facility] list. Please review with patient at next clinic visit. documented in this encounter Plan of Treatment Upcoming Encounters Date Type Department Care Team (Late st Contact Info) Description 02/02/2024 10:00 AM EDT Hospital Encounter Non-[place] [address] Arrived documented as of this encounter Visit Diagnoses Not on filedocumented in this encounter Care Teams Video Game Producer Relationship Specialty Start Date End Date Donny Cooper MD [address] [place] [address] PCP - General Family Medicine 02/25/19 documented as of this encounter
--- OUTSIDE RECORDS SUMMARY | 2023-11-26 11:11 | XMS_ITS | Encounter Summary ---
Author Organization [facility] [place] [address] Care Team Providers Care Stockbroker Name Role Phone Donny Cooper MD Primary Care Provider [phone] Encounter Details Date Type Department Care Team (Latest Contact Info) Description 06/25/2021 3:23 PM EST - 06/25/2021 11:59 PM EST Hospital Encounter Non-Invasive [place] [address] Alber Seals MD [facility] [place] [address] Cardiomyopathy, primary Discharge Disposition: Home Social History [...] AM EDT Hospital Encounter Non-Invasive [place] [address] Arrived documented as of this encounter Procedures Procedure Name Priority Date/Time Associated Diagnosis Comments ICD INTERROGATION 3 MONTH Routine 06/25/2021 3:24 PM EST Cardiomyopathy, primary documented in this encounter Results * ICD INTERROGATION 3 MONTH (06/25/2021 3:24 PM EST) Anatomical Region Laterality Modality Other Narrative 06/25/2021 3:42 PM EST Cardiac Device Remote Monitoring Report Summary Medtronic Carelink Device: CORRUGATOR MACHINE OPERATOR-D Model: VIVA QUAD Battery: 2.95 v, estimated longevity 2 years 6 months Pacing percentage: 90% CORRUGATOR MACHINE OPERATOR paced Events: Presenting rhythm: atrial paced/biventricular paced Frequent PVC's Impression Normal device function Follow Up As per schedule - in-clinic and remote ALBER SEALS MD 06/25/21 Alber Seals MD IMPLANTABLE CARDIAC DEVICE documented in this encounter Visit Diagnoses Diagnosis Cardiomyopathy, primary Other primary cardiomyopathies documented in this encounter Care Teams Stockbroker Relationship Specialty Start Date End Date Donny Cooper MD [address] [place] [address] PCP - General Family Medicine 02/25/19 documented as of this encounter
--- OUTSIDE RECORDS SUMMARY | 2023-11-26 11:11 | XMS_ITS | Encounter Summary ---
[place] [address] Care Team Providers Care Road Roller Operator Name Role Phone Donny Cooper MD Primary Care Provider [phone] Encounter Details Date Type Department Care Team (Latest Contact Info) Description 10/05/2022 10:00 AM EDT - 10/05/2022 11:59 PM EDT Hospital Encounter Non-Invasive [place] [address] Discharge Disposition: Home Social History Tobacco Use [...] AM EDT Hospital Encounter Non-Invasive [place] [address] Arrived documented as of this encounter Procedures [...] on filedocumented in this encounter Care Teams Road Roller Operator Relationship Specialty Start Date End Date Donny Cooper MD [address] [place] [address] PCP - General Family Medicine 02/25/19 documented as of this encounter
--- OUTSIDE RECORDS SUMMARY | 2023-11-26 11:11 | XMS_ITS | Encounter Summary ---
Author Organization [facility] [place] [address] Care Team Providers Care Meter Maintenance Person Name Role Phone Marques Martinez MD Primary Care Provider [phone] Encounter Details Date Type Department Care Team (Late st Contact Info) Description 06/12/2010 2:10 PM EST Office [place] [address] Jairon Fenton MD [facility] [place] [address] Discharge Disposition: Home Social History Tobacco Use [...] AM EDT Hospital Encounter Non-[place] [address] Arrived documented as of this encounter Visit Diagnoses Not on filedocumented in this encounter Care Teams Meter Maintenance Person Relationship Specialty Start Date End Date Marques Martinez MD [address] [place] [address] PCP - General 04/01/10 04/08/11 documented as of this encounter
--- OUTSIDE RECORDS SUMMARY | 2023-11-26 11:11 | XMS_ITS | Encounter Summary ---
[place] [address] Care Team Providers Care Tower Air Traffic Control Specialist Name Role Phone Donny Cooper MD Primary Care Provider [phone] Encounter Details Date Type Department Care Team (Latest Contact Info) Description 01/03/2023 10:00 AM EDT - 01/03/2023 11:59 PM EDT Hospital Encounter [place] [address] Discharge Disposition: Home Social History Tobacco Use [...] AM EDT Hospital Encounter Non[place] [address] Arrived documented as of this encounter Procedures [...] on filedocumented in this encounter Care Teams Tower Air Traffic Control Specialist Relationship Specialty Start Date End Date Donny Cooper MD [address] [place] [address] PCP - General Family Medicine 02/25/19 documented as of this encounter
--- OUTSIDE RECORDS SUMMARY | 2023-11-26 11:11 | XMS_ITS | Encounter Summary ---
[place] [address] Care Team Providers Care Mortgage Advisor Name Role Phone Donny Cooper MD Primary Care Provider [phone] Encounter Details Date Type Department Care Team (Latest Contact Info) Description 04/08/2022 10:00 AM EST - 04/08/2022 11:[address] [facility] Hospital Encounter [place] [address] Discharge Disposition: Home Social History Tobacco Use [...] AM EDT Hospital Encounter [place] [address] Arrived documented as of this [...] on filedocumented in this encounter Care Teams Mortgage Advisor Relationship Specialty Start Date End Date Donny Cooper MD [address] [place] [address] PCP - General Family Medicine 02/25/19 documented as of this encounter
--- OUTSIDE RECORDS SUMMARY | 2023-11-26 11:11 | XMS_ITS | Encounter Summary ---
Author Organization [facility] [place] [address] Care Team Providers Care Glycerine Plant Operator Name Role Phone Marques Martinez MD Primary Care Provider [phone] Encounter Details Date Type Department Care Team (Late st Contact Info) Description 03/30/2010 [place] [address] Javier Barajas MD [facility] [place] [address] Social History Tobacco Use Types Packs/Day Years [...] AM EDT Hospital Encounter Non-Invasive [place] [address] Arrived documented as of this encounter Procedures [...] AM EST Jairon Fenton MD CHEMISTRY ORDERABLES [facility] * (ABNORMAL) CREATININE, SERUM [...] Fenton MD CHEMISTRY ORDERABLES Performing Organization Address [facility] de Phone Number CERIVIS SHERENNIUM * BUN (04/01/2010 6:09 AM EST) BUN 12 10 - 20 mg/dL [facility] MILLENNI[facility] Blood specimen (specimen) 04/01/2010 6:09 AM EST 04/01/2010 6:09 AM EST Jairon Fenton MD CHEMISTRY ORDERABLES Performing Organization Address [facility] de Phone Number CERNER CHRISTOSENNIUM * [...] MD HEMATOLOGY ORDERABLE S Performing Organization Address [facility] Co de Phone Number CERNER [...] Fenton MD CHEMISTRY ORDERABLES Performing Organization Address [facility] Phone Number CERIVIS MILLENNIUM * ELECTROLYTE [...] Fenton MD CHEMISTRY ORDERABLES Performing Organization Address [facility] Co de Phone Number CERNER MILLENNIUM * CREATININE, SERUM (03/30/2010 6:05 PM EST) Creatinine 0.87 0.80 - 1.50 mg/dL [facility] Estimated GFR >60 >=60 [facility] Comment: The National Kidney Disease Education [...] Fenton MD CHEMISTRY ORDERABLES Performing Organization Address [facility] Co de Phone Number [facility] * BUN (03/30/2010 6:05 PM EST) BUN 18 10 - 20 mg/dL [facility] Blood specimen (specimen) 03/30/2010 6:05 PM EST 03/30/2010 6:13 PM EST Jairon Fenton MD CHEMISTRY ORDERABLES Performing Organization Address [facility]/ZIP Co de Phone Number [facility] * APTT (03/30/2010 6:05 PM EST) PTT 26 25 - 37 sec [facility] Comment: Recommended therapeutic PTT range for full dose unfractionated heparin is 80-114 seconds. Blood specimen (specimen) 03/30/2010 6:05 PM EST 03/30/2010 6:14 PM EST Jairon Fenton MD HEMATOLOGY ORDERABLE S Performing Organization Address [facility] Co de Phone Number [facility] * PROTIME-INR (03/30/2010 6:05 PM EST) PT 14.2 12.3 - 14.7 sec [facility] Comment: [facility] Transfusion Committee Guidelines: INR less than 2.0, PTT less than OR equal to 43.5 seconds, or Fibrinogen greater than or equal to 100 mg/dl indicate adequate procoagulant activity for hemostasis in patients without underlying bleeding disorders. INR 1.1 0.9 - 1.1 [facility] Blood specimen (specimen) 03/30/2010 6:05 PM EST 03/30/2010 6:14 PM EST Jairon Fenton MD HEMATOLOGY ORDERABLE S Performing Organization Address [facility] Co de Phone Number DEJA [...] noted, a manual differential will be performed. Rtacey Gran Abs 0.02 0.00 - 0.05 x10(3)/mc L [facility] Blood specimen (specimen) 03/30/2010 6:05 PM EST 03/30/2010 6:13 PM EST Jairon Fenton MD HEMATOLOGY ORDERABLE S [facility] * (ABNORMAL) CBC (03/30/2010 6:05 [...] BANK LAB ORDER PRECIOUS Performing Organization Address City/[facility]/ZIP Co de Phone Number [facility] * REFLEX LAB-ABO/RH (03/30/2010 3:17 PM EST) ABORH Type A Pos [facility] Blood specimen (specimen) 03/30/2010 3:17 PM EST 03/30/2010 3:17 PM EST Javier Barajas MD BLOOD BANK LAB ORDER PRECIOUS [facility] * ELECTROLYTE PANEL (03/30/2010 [...] Barajas MD CHEMISTRY ORDERABLES Performing Organization Address [facility] Co de Phone Number [facility] * CREATININE, SERUM (03/30/2010 2:50 PM EST) Creatinine 0.85 0.80 - 1.50 mg/dL [facility] Estimated GFR >60 >=60 [facility] Comment: The National Kidney Disease Education [...] PM EST 03/30/2010 3:05 PM EST Javier aBrajas MD CHEMISTRY ORDERABLES Performing Organization Address City/[facility]/ZIP Co de Phone Number [facility] * BUN (03/30/2010 2:50 PM EST) BUN 18 10 - 20 mg/dL [facility] Blood specimen (specimen) 03/30/2010 2:50 PM EST 03/30/2010 3:05 PM EST Javier Barajas MD CHEMISTRY ORDERABLES Performing Organization Address [facility] Phone Number [facility] * GLUCOSE, RANDOM (03/30/2010 2:50 PM EST) Glucose Lvl 95 <=199 mg/dL [facility] Comment:Diabetes: >=200 mg/d L plus symptoms Blood specimen (specimen) 03/30/2010 2:50 PM EST 03/30/2010 3:05 PM EST Javier Barajas MD CHEMISTRY ORDERABLES Performing Organization Address [facility] Phone Number [facility] * APTT (03/30/2010 2:50 PM EST) PTT 25 25 - 37 sec [facility] Comment: Recommended therapeutic PTT range for full dose unfractionated heparin is 80-114 seconds. Blood specimen (specimen) 03/30/2010 2:50 PM EST 03/30/2010 3:06 PM EST Javier Barajas MD HEMATOLOGY ORDERABLE S Performing Organization Address [facility] Phone Number [facility] * PROTIME-INR (03/30/2010 2:50 PM EST) PT 14.1 12.3 - 14.7 sec [facility] Comment: [facility] Transfusion Committee Guidelines: INR less than 2.0, PTT less than OR equal to 43.5 seconds, or Fibrinogen greater than or equal to 100 mg/dl indicate adequate procoagulant activity for hemostasis in patients without underlying bleeding disorders. INR 1.1 0.9 - 1.1 [facility] Blood specimen (specimen) 03/30/2010 2:50 PM [...] on filedocumented in this encounter Care Teams Glycerine Plant Operator Relationship Specialty Start Date End Date Marques Martinez MD [address] [place] [address] PCP - General 04/01/10 04/08/11 documented as of this encounter
--- OUTSIDE RECORDS SUMMARY | 2023-11-26 11:11 | XMS_ITS | Encounter Summary ---
[place] [address] Care Team Providers Care Senior Javascript Developer Name Role Phone oDnny Cooper MD Primary Care Provider [phone] Encounter Details Date Type Department Care Team (Latest Contact Info) Description 07/02/2023 10:00 AM EST - 07/02/2023 11:59 PM EST Hospital Encounter Non-Invasive [place] [address] Discharge Disposition: Home Social History Tobacco Use [...] AM EDT Hospital Encounter Non-Invasive [place] [address] Arrived documented as of this encounter Visit Diagnoses Not on filedocumented in this encounter Care Teams Senior Javascript Developer Relationship Specialty Start Date End Date Donny Cooper MD [address] [place] [address] PCP - General Family Medicine 02/25/19 documented as of this encounter
--- OUTSIDE RECORDS SUMMARY | 2023-11-26 11:11 | XMS_ITS | Encounter Summary ---
[place] [address] Care Team Providers Care Roll Slicing Machine Tender Name Role Phone Donny Cooper MD Primary Care Provider [phone] Encounter Details Date Type Department Care Team (Latest Contact Info) Description 04/03/2023 10:00 AM EST - 04/03/2023 11:59 PM [facility] Hospital Encounter Non-Invasive [place] [address] Discharge Disposition: Home Social History Tobacco Use [...] AM EDT Hospital Encounter Non-Invasive [place] [address] Arrived documented as of this [...] on filedocumented in this encounter Care Teams Roll Slicing Machine Tender Relationship Specialty Start Date End Date Donny Cooper MD [address] [place] [address] PCP - General Family Medicine 02/25/19 documented as of this encounter
--- OUTSIDE RECORDS SUMMARY | 2023-11-26 11:11 | XMS_ITS | Encounter Summary ---
Author Organization [facility] [place] [address] Care Team Providers Care Plate Driller Name Role Phone Marques Martinez MD Primary Care Provider [phone] Encounter Details Date Type Department Care Team (Late st Contact Info) Description 10/09/2010 11:35 AM EDT - 10/09/2010 11:59 PM EDT Hospital Encounter XRay at [address] [place] [address] Social History Tobacco Use Types Packs/Day Years [...] AM EDT Hospital Encounter Non-Invasive Cardiology Lab [place] [address] Arrived documented as of this encounter Visit Diagnoses Not on filedocumented in this encounter Care Teams Plate Driller Relationship Specialty Start Date End Date Marques Martinez MD [address] [place] [address] PCP - General 04/01/10 04/08/11 documented as of this encounter
--- OUTSIDE RECORDS SUMMARY | 2023-11-26 11:11 | XMS_ITS | Encounter Summary ---
Author Organization [facility] [place] [address] Care Team Providers Care Community Service Manager Name Role Phone Donny Cooper MD Primary Care Provider [phone] Encounter Details Date Type Department Care Team (Latest Contact Info) Description 06/13/2020 12:35 PM EST - 06/13/2020 11:59 PM EST Hospital Encounter Non-[place] [address] Alber Seals MD [facility] [place] [address] Cardiomyopathy, primary Discharge Disposition: Home Social History [...] AM EDT Hospital Encounter Non-Invasive [place] [address] Arrived documented as of this encounter Procedures Procedure Name Priority Date/Time Associated Diagnosis Comments ICD INTERROGATION 3 MONTH Routine 06/13/2020 12:36 PM EST Cardiomyopathy, primary documented in this encounter Results * ICD INTERROGATION 3 MONTH (06/13/2020 12:36 PM EST) Anatomical Region Laterality Modality Other Narrative 06/14/2020 10:38 AM EST Cardiac Device Remote Monitoring Report Summary Medtronic CareCherrish 06/14/20 Device: MUSIC DEPARTMENT CHAIR-D Model: VIVA QUAD Battery: 2.96 v, estimated longevity 3 years, 11 months Pacing percentage: 78% ventricular paced Events: The presenting rhythm is atrial paced with biventricular pacing and frequent ventricular premature contractions No significant arrhythmias Impression Normal device function; suboptimal MUSIC DEPARTMENT CHAIR pacing likely secondary to frequent PVCs. Should consider in clinic follow-up for further evaluation Follow Up As per schedule - in-clinic and remote ALBER SEALS MD Alber Seals MD IMPLANTABLE CARDIAC DEVICE documented in this encounter Visit Diagnoses Diagnosis Cardiomyopathy, primary Other primary cardiomyopathies documented in this encounter Care Teams Community Service Manager Relationship Specialty Start Date End Date Donny Cooper MD [address] [place] [address] PCP - General Family Medicine 02/25/19 documented as of this encounter
--- OUTSIDE RECORDS SUMMARY | 2023-11-26 11:11 | XMS_ITS | Encounter Summary ---
[place] [address] Care Team Providers Care Director Life Sales Name Role Phone Donny Cooper MD Primary Care Provider [phone] Encounter Details Date Type Department Care Team (Latest Contact Info) Description 07/07/2022 10:00 AM EST - 07/07/2022 11:59 PM EST Hospital Encounter Non-[place] [address] Discharge Disposition: Home Social History Tobacco Use [...] AM EDT Hospital Encounter Non-[place] [address] Arrived documented as of this [...] on filedocumented in this encounter Care Teams Director Life Sales Relationship Specialty Start Date End Date Donny Cooper MD [address] [place] [address] PCP - General Family Medicine 02/25/19 documented as of this encounter
--- OUTSIDE RECORDS SUMMARY | 2023-11-26 11:11 | XMS_ITS | Encounter Summary ---
Author Organization [facility] [place] [address] Care Team Providers Care Tubing Mill Setter Name Role Phone Marques Martinez MD Primary Care Provider [phone] Reason for Visit * Reason Comments Follow Up Fracture PATELLA FX DOI 03/23 10 Encounter Details Date Type Department Care Team (Late st Contact Info) Description 10/09/2010 12:40 PM EDT Office [place] [address] Jairon Gustafson MD [facility] [place] [address] Jose Francisco Bee PA [facility] [place] [address] Quadriceps tendon rupture (Primary Dx) Discharge Disposition: [...] AM EDT Hospital Encounter Non-Invasive [place] [address] Arrived documented as of this encounter Visit Diagnoses Diagnosis Quadriceps tendon rupture- Primary Sprain and strain of other specified sites of knee and leg documented in this encounter Care Teams Tubing Mill Setter Relationship Specialty Start Date End Date Marques Martinez MD [address] [place] [address] PCP - General 04/01/10 04/08/11 documented as of this encounter
--- OUTSIDE RECORDS SUMMARY | 2023-11-26 11:11 | XMS_ITS | Encounter Summary ---
[place] [address] Care Team Providers Care City Sanitarian Name Role Phone Marques Martinez MD Primary Care Provider Encounter Details Date Type Department Care Team (Late st Contact Info) Description 05/01/2010 2:40 PM EST Procedure visit [place] [address] Social History Tobacco Use Types Packs/Day Years [...] AM EDT Hospital Encounter Non-In[place] [address] Arrived documented as of this encounter Visit Diagnoses Not on filedocumented in this encounter Care Teams City Sanitarian Relationship Specialty Start Date End Date Marques Martinez MD [address] [place] [address] PCP - General 04/01/10 04/08/11 documented as of this encounter
== END 2023-12-02 23:59 | disposition home or self-care (01) ==
LOC: CR 08:00
PROVIDERS: PCP Family Medicine; Visit Provider Internal Medicine Cardiovascular Disease
DX: R69 Illness, unspecified (principal)

== ENCOUNTER 2023-12-31 08:18 | Outpatient (RCR) | payer SELFPAY ==
[2023-12-03 00:11] VITALS: BP 121/62; PULSE 71
[2023-12-03 07:57] VITALS: BP 123/64; PULSE 69
--- OUTSIDE RECORDS SUMMARY | 2023-12-03 07:57 | XMS_ITS | Encounter Summary ---
Author Organization [facility] [place] [address] Care Team Providers Care Electronics Department Manager Name Role Phone Marques Martinez MD Primary Care Provider [phone] Encounter Details Date Type Department Care Team (Late st Contact Info) Description 10/09/2010 11:35 AM EDT - 10/09/2010 11:59 PM EDT Hospital Encounter XRay at [address] [place] [address] Social History Tobacco Use Types Packs/Day Years [...] AM EDT Hospital Encounter Non-Invasive Cardiology Lab [facility] [place] [address] Arrived documented as of this encounter Visit Diagnoses Not on filedocumented in this encounter Care Teams Electronics Department Manager Relationship Specialty Start Date End Date Marques Martinez MD [address] [place] [address] PCP - General 04/01/10 04/08/11 documented as of this encounter
--- OUTSIDE RECORDS SUMMARY | 2023-12-03 07:57 | XMS_ITS | Encounter Summary ---
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 Procedures IMPLANTABLE CARDIAC DEFIBRILLATOR PROCEDURE Navdeep Hurd MD [address] [place], [place] [address] [address] [place] [address] Referral ID Status Reason Start Date Expiration Date Visits Re quested Visits Authorized [id number] Closed 02/13/2016 1 1 Encounter Details Date Type Department Care Team (Latest Contact Info) Description 02/13/2016 Pre-Procedure Orders Encounter [facility] [address] [place], [place] [address] Navdeep Hurd [facility] [address] [facility] [address] [place] [address] ICD (implantable cardioverter-defibril lator) battery [...] 8 EDT Narrative 02/27/2016 15:17 EDT *Cardiology* [address] [place] [address] Lead Revision (Report amended ) Patient: Nabil Iglesias ?Study Date: ?02/27/2016 ? Accession #: ? [id number] : ? 1940 Referring: Clem Olvera Attending: [...] glide wire a Nick MENDOZAW 6F ([facility]) 6 mm-40 mm balloon dilation still could [...] Venograms were performed in the [place]ORE and [place] projections and a suitable mid-lateral LV branch [...] fascia. The leads were connected to a CO FOUNDER AND CEO-D device. Device and Lead detail in table [...] Implanted device: Medtronic - Viva Quad XT CO FOUNDER AND CEO-D DF4 - Serial number: [id number] Explanted device: Medtronic - Viva XT CO FOUNDER AND CEO-D DF4 - Serial number: [id number]. LEAD PARAMETERS + + + + + [...] + + + + + Serial number [id number] ? [id number] ?? [id number] ?? [id number] ? + + + + [...] Gulshan Drummond MD - 05/12/2016 *Cardiology* [address] [place] [address] Lead Revision (Report amended ) Patient: Nabil [...] therefore over an 0.35 glide wire [facility] ([facility]) 6 mm-40 mm balloon dilation still could [...] Venograms were performed in the [place]ORE and [place] projections and a suitable mid-lateral LV branch [...] fascia. The leads were connected to a CO FOUNDER AND CEO-D device. Device and Lead detail in table [...] Implanted device: Medtronic - Viva Quad XT CO FOUNDER AND CEO-D DF4 - Serial number: [id number] Explanted device: Medtronic - Viva XT CO FOUNDER AND CEO-D DF4 - Serial number: [id number]. LEAD PARAMETERS + + + + + + Lead # 1 2 3 4 + + + + + + Chamber RA RV LV LV + + + + + + Date 07/19/2002 07/18/2013 02/27/2016 07/18/2013 implanted + + + + + + Model St. Esa Medtronic Medtronic Enpath information 2008 [id number] Attain Epicardial Performa 4298 + + + + + + Serial number [id number] + + + + + + [...] situ documented in this encounter Care Teams Accounting Support Specialist Relationship Specialty Start Date End Date Clem Olvera MD [address] [place] [address] PCP - General 12/18/15 documented as of this encounter
--- OUTSIDE RECORDS SUMMARY | 2023-12-03 07:57 | XMS_ITS | Encounter Summary ---
[place] [address] Care Team Providers Care Chemical Production Engineer Name Role Phone Donny Cooper MD Primary Care Provider [phone] Encounter Details Date Type Department Care Team (Latest Contact Info) Description 07/07/2022 10:00 AM EST - 07/07/2022 11:59 PM EST Hospital Encounter [place] [address] Discharge Disposition: Home Social History Tobacco Use [...] AM EDT Hospital Encounter [place] [address] Arrived documented as of this [...] on filedocumented in this encounter Care Teams Chemical Production Engineer Relationship Specialty Start Date End Date Donny Cooper MD [address] [place] [address] PCP - General Family Medicine 02/25/19 documented as of this encounter
--- OUTSIDE RECORDS SUMMARY | 2023-12-03 07:57 | XMS_ITS | Encounter Summary ---
[place] [address] Care Team Providers Care Hand Former Name Role Phone Donny Cooper MD Primary Care Provider [phone] Encounter Details Date Type Department Care Team (Latest Contact Info) Description 11/04/2023 10:00 AM EDT - 11/04/2023 11:59 PM EDT Hospital Encounter Non-[place] [address] Discharge Disposition: Home Social History Tobacco Use [...] AM EDT Hospital Encounter Non-Invasive [place] [address] Arrived documented as of this encounter Procedures [...] on filedocumented in this encounter Care Teams Hand Former Relationship Specialty Start Date End Date Donny Cooper MD [address] [place] [address] PCP - General Family Medicine 02/25/19 documented as of this encounter
--- OUTSIDE RECORDS SUMMARY | 2023-12-03 07:57 | XMS_ITS | Encounter Summary ---
Author [place] [address] Care Team Providers Care Staking Technician Name Role Phone Donny Cooper MD Primary Care Provider [phone] Encounter Details Date Type Department Care Team (Latest Contact Info) Description 04/03/2023 10:00 AM EST - 04/03/2023 11:59 PM [facility] Hospital Encounter Non-Invasive [place] [address] Discharge Disposition: Home Social History Tobacco Use [...] AM EDT Hospital Encounter Non-Invasive [place] [address] Arrived documented as of this [...] on filedocumented in this encounter Care Teams Staking Technician Relationship Specialty Start Date End Date Donny Cooper MD [address] [place] [address] PCP - General Family Medicine 02/25/19 documented as of this encounter
--- OUTSIDE RECORDS SUMMARY | 2023-12-03 07:57 | XMS_ITS | Encounter Summary ---
[place] [address] Care Team Providers Care Mechanic Chief Name Role Phone Donny Cooper MD Primary Care Provider [phone] Encounter Details Date Type Department Care Team [...] AM EDT Hospital Encounter Non-[place] [address] Arrived documented as of this encounter Visit Diagnoses Not on filedocumented in this encounter Care Teams Mechanic Chief Relationship Specialty Start Date End Date Donny Cooper MD [address] [place] [address] PCP - General Family Medicine 02/25/19 documented as of this encounter
--- OUTSIDE RECORDS SUMMARY | 2023-12-03 07:57 | XMS_ITS | Encounter Summary ---
Author Organization [facility] Address [address] [place] [address] Care Team Providers Care County Attorney Name Role Phone Unavailable Primary Care Provider Unavailabl e Encounter Details Date Type Department Care Team (Late st Contact Info) Description 12/02/2012 Results Only [facility] Laboratory Services - [facility] [place] [address] [place] [id number] Satinder Edwards MD [address] [place] [id number] Social History Tobacco Use Types Packs/Day Years [...] ? NABIL IGLESIAS ? Accession #: ? [id number] ? : ? 1940 (Age: 72) ??M [...] MD PATHOLOGY ORDERABLE S Performing Organization Address City/State/[facility] Co de Phone Number DIVYA BERRY [address] [place] [address] documented in this encounter Visit Diagnoses Not on filedocumented in this encounter
--- OUTSIDE RECORDS SUMMARY | 2023-12-03 07:57 | XMS_ITS | Encounter Summary ---
[place] [address] Care Team Providers Care General Production Laborer Name Role Phone Donny Cooper MD Primary Care Provider [phone] Encounter Details Date Type Department Care Team (Late st Contact Info) Description 03/17/2019 Telephone Cardiology at [address] [address] Sheri Quinn LNA Social History [...] 11:46 AM EST Medication list reviewed with [facility] list. Please review with patient at next clinic visit. documented in this encounter Plan of Treatment Upcoming Encounters Date Type Department Care Team (Late st Contact Info) Description 02/02/2024 10:00 AM EDT Hospital Encounter Non-Invasive [place] [address] Arrived documented as of this encounter Visit Diagnoses Not on filedocumented in this encounter Care Teams General Production Laborer Relationship Specialty Start Date End Date Donny Cooper MD [address] [place] [address] PCP - General Family Medicine 02/25/19 documented as of this encounter
--- OUTSIDE RECORDS SUMMARY | 2023-12-03 07:57 | XMS_ITS | Encounter Summary ---
Author Organization [facility] Address [address] [place] [address] Care Team Providers Care Energy Attorney Name Role Phone Clem Olvera MD Primary Care Provider Encounter Details Date Type Department Care Team (Latest Contact Info) Description 12/20/2015 10:52 EDT - 12/20/2015 23:52 EDT Hospital Encounter [facility] [address] [place] [address] Navdeep Hurd MD [address] [place] [address] [address] Discharge Disposition: Home or Self [...] no need to beNPO or have a sales route driver. However, his will be accompanying him. They are driving someone to the airport [place] 1000 and then will come here and check-in around 1145. He agrees to have a shower. documented in this encounter Procedure Notes * Fantasma Dhillon MD - 12/20/2015 1356 EDT IR Brief Procedure Note Attending: Leo Fast Food Server: Alejo Pre-op Dx: Arrhythmia, need for pacemaker [...] 12/19 documented in this encounter Care Teams Energy Attorney Relationship Specialty Start Date End Date Clem Olvera MD [address] [place] [id number] PCP - General 12/18/15 documented as of this encounter
--- OUTSIDE RECORDS SUMMARY | 2023-12-03 07:57 | XMS_ITS | Encounter Summary ---
[place] [address] Care Team Providers Care Driving Instructor Name Role Phone Donny Cooper MD Primary Care Provider [phone] Encounter Details Date Type Department Care Team (Latest Contact Info) Description 04/08/2022 10:00 AM EST - 04/08/2022 11:59 PM [facility] Hospital Encounter Non-Invasive [place] [address] Discharge Disposition: Home Social History Tobacco Use [...] AM EDT Hospital Encounter Non-Invasive [place] [address] Arrived documented as of this [...] on filedocumented in this encounter Care Teams Driving Instructor Relationship Specialty Start Date End Date Donny Cooper MD [address] [place] [address] PCP - General Family Medicine 02/25/19 documented as of this encounter
--- OUTSIDE RECORDS SUMMARY | 2023-12-03 07:57 | XMS_ITS | Encounter Summary ---
[place] [address] Care Team Providers Care Registration Scheduling Specialist Name Role Phone Donyn Cooper MD Primary Care Provider [phone] Encounter Details Date Type Department Care Team (Latest Contact Info) Description 10/05/2022 10:00 AM EDT - 10/05/2022 11:59 PM EDT Hospital Encounter [place] [address] Discharge Disposition: Home Social History Tobacco Use [...] AM EDT Hospital Encounter [place] [address] Arrived documented as of this encounter Procedures [...] on filedocumented in this encounter Care Teams Registration Scheduling Specialist Relationship Specialty Start Date End Date Donny Cooper MD [address] [place] [address] PCP - General Family Medicine 02/25/19 documented as of this encounter
--- OUTSIDE RECORDS SUMMARY | 2023-12-03 07:57 | XMS_ITS | Encounter Summary ---
[place] [address] Care Team Providers Care Merchandise Pickup/Receiving Associate Name Role Phone Marqeus Martinez MD Primary Care Provider [phone] Encounter Details Date Type Department Care Team (Late st Contact Info) Description 10/03/2010 [place] [address] Marina Orosco, JADON Social History Tobacco Use [...] AM EDT Hospital Encounter Non[place] [address] Arrived documented as of this encounter Visit Diagnoses Not on filedocumented in this encounter Care Teams Merchandise Pickup/Receiving Associate Relationship Specialty Start Date End Date Marques Martinez MD [address] [place] [address] PCP - General 04/01/10 04/08/11 documented as of this encounter
--- OUTSIDE RECORDS SUMMARY | 2023-12-03 07:57 | XMS_ITS | Encounter Summary ---
Author Organization [facility] [place] [address] Care Team Providers Care Easter Bunny Name Role Phone Marques Martinez MD Primary Care Provider [phone] Reason for Visit * Reason Comments Follow Up Fracture PATELLA FX DOI 03/23 10 Encounter Details Date Type Department Care Team (Late st Contact Info) Description 10/09/2010 12:40 PM EDT Office [place] [address] Jairon Gustafson MD [facility] [place] [address] Jose Francisco Bee PA [facility] [place] [address] Quadriceps tendon rupture (Primary Dx) Discharge Disposition: [...] AM EDT Hospital Encounter Non-Invasive [place] [address] Arrived documented as of this encounter Visit Diagnoses Diagnosis Quadriceps tendon rupture- Primary Sprain and strain of other specified sites of knee and leg documented in this encounter Care Teams Easter Bunny Relationship Specialty Start Date End Date Marques Martinez MD [address] [place] [address] PCP - General 04/01/10 04/08/11 documented as of this encounter
--- OUTSIDE RECORDS SUMMARY | 2023-12-03 07:57 | XMS_ITS | Encounter Summary ---
[place] [address] Care Team Providers Care Sort Line Worker Name Role Phone Donny Cooper MD Primary Care Provider [phone] Encounter Details Date Type Department Care Team (Latest Contact Info) Description 07/02/2023 10:00 AM EST - 07/02/2023 11:59 PM EST Hospital Encounter Non-[place] [address] Discharge Disposition: Home Social History Tobacco Use [...] AM EDT Hospital Encounter Non-[place] [address] Arrived documented as of this encounter Visit Diagnoses Not on filedocumented in this encounter Care Teams Sort Line Worker Relationship Specialty Start Date End Date Donny Cooper MD [address] [place] [address] PCP - General Family Medicine 02/25/19 documented as of this encounter
--- OUTSIDE RECORDS SUMMARY | 2023-12-03 07:57 | XMS_ITS | Encounter Summary ---
[place] [address] Care Team Providers Care Street Supervisor Name Role Phone Donny Cooper MD Primary Care Provider [phone] Encounter Details Date Type Department Care Team (Latest Contact Info) Description 08/06/2023 10:00 AM EDT - 08/06/2023 11:59 PM EDT Hospital Encounter Non[place] [address] Discharge Disposition: Home Social History Tobacco Use [...] AM EDT Hospital Encounter Non-[place]vasive [place] [address] Arrived documented as of this encounter Visit Diagnoses Not on filedocumented in this encounter Care Teams Street Supervisor Relationship Specialty Start Date End Date Donny Cooper MD [address] [place] [address] PCP - General Family Medicine 02/25/19 documented as of this encounter
--- OUTSIDE RECORDS SUMMARY | 2023-12-03 07:57 | XMS_ITS | Encounter Summary ---
Author Organization [place] [address] Care Team Providers Care Tallow Maker Name Role Phone Clem Olvera MD Primary Care Provider [phone] Reason for Visit * Reason Comments Follow Up Fracture SP PATELLA FX DO12/12 DOI 03/30/10 Encounter Details Date Type Department Care Team (Late st Contact Info) Description 04/09/2011 1:30 PM EST Office [place] [address] Jairon Gustafson MD [facility] [place] [address] Jose Francisco Bee PA [facility] [place] [address] Patella fracture (Primary Dx) Discharge Disposition: Home [...] AM EDT Hospital Encounter Non[place] [address] Arrived documented as of this encounter Visit Diagnoses Diagnosis Patella fracture- Primary Closed fracture of patella documented in this encounter Care Teams Tallow Maker Relationship Specialty Start Date End Date Clem Olvera MD [address] [place] [address] PCP - General 04/09/11 02/24/19 documented as of this encounter
--- OUTSIDE RECORDS SUMMARY | 2023-12-03 07:57 | XMS_ITS | Encounter Summary ---
Author Organization [facility] Address [address] [place] [address] Care Team Providers Care Hole Digger Operator Name Role Phone Clem Olvera MD Primary Care Provider [phone] Reason for Visit * Reason Onset Date Comments Other 04/04/2019 Transfer request for Pacer Care at [facility] Encounter Details Date Type Department Care Team (Late st Contact Info) Description 04/04/2019 Telephone [facility] [place] [address] [place] [address] Giselle Hill, MOTION PICTURES CARTOONIST Other (Transfer request for Pacer Care at [facility]) Social History Tobacco Use Types Packs/Day Years [...] 04/04/2019 1503 EST I went into the [employer] Website and released pt to [facility] Pacer Clinic as requested. * Telephone Encounter - Suze Reynoso - 04/04/2019 1342 EST PT WILL BE HAVING HIS PACER CARE DONE AT [facility], PLEASE RELEASE HIS REMOTE MONITORING SO THAT THEY CAN PICK IT UP documented in this encounter Plan of Treatment Not on file documented as of this encounter Visit Diagnoses Not on filedocumented in this encounter Care Teams Hole Digger Operator Relationship Specialty Start Date End Date Clem Olvera MD [address] [place] [address] PCP - General 12/18/15 documented as of this encounter
--- OUTSIDE RECORDS SUMMARY | 2023-12-03 07:57 | XMS_ITS | Encounter Summary ---
Author Organization [facility] Address [address] [place] [address] Care Team Providers Care Touch Up Painter Hand Name Role Phone Clem Olvera MD Primary Care Provider [phone] Reason for Visit * Reason Onset Date Comments Appointment Related 10/23/2016 Check for fo llow up of pacer Encounter Details Date Type Department Care Team ([facility] Contact Info) Description 10/23/2016 Telephone [facility] Cardiology - [address] [place] [address] Pacemaker, Pace Appointment Related (Check [...] that Nabil had his pacemaker checked in [place] where they are for the winter. They have some back and are being followed by Dr. Hurd at [facility]. documented in this encounter Plan of Treatment Not on file documented as of this encounter Visit Diagnoses Not on filedocumented in this encounter Care Teams Touch Up Painter Hand Relationship Specialty Start Date End Date Clem Olvera MD [address] [place] [address] PCP - General 12/18/15 documented as of this encounter
--- OUTSIDE RECORDS SUMMARY | 2023-12-03 07:57 | XMS_ITS | Encounter Summary ---
[place] [address] Care Team Providers Care Record Clerk Name Role Phone Donny Cooper MD Primary Care Provider [phone] Encounter Details Date Type Department Care Team (Latest Contact Info) Description 01/03/2023 10:00 AM EDT - 01/03/2023 11:59 PM EDT Hospital Encounter [place] [address] Discharge Disposition: Home Social History Tobacco Use [...] AM EDT Hospital Encounter Non[place] [address] Arrived documented as of this encounter Procedures [...] on filedocumented in this encounter Care Teams Record Clerk Relationship Specialty Start Date End Date Donny Cooper MD [address] [place] [address] PCP - General Family Medicine 02/25/19 documented as of this encounter
--- OUTSIDE RECORDS SUMMARY | 2023-12-03 07:57 | XMS_ITS | Encounter Summary ---
Author Organization [facility] Address [address] [place] [address] Care Team Providers Care Service Officer Name Role Phone Clem Olvera MD Primary Care Provider [phone] Encounter Details Date Type Department Care Team (Late st Contact Info) Description 03/16/[address] [facility] [address] [place] [address] Ronal Avelar, JADON AV block, 2nd degree [...] Laterality Modality Device Narrative 03/24/2019 10:30 EST [facility] Cardiology Device Visit Ski Maker Wood: [employer] Device Type: FLOATING OPERATOR-D Service: Remote ? 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
--- OUTSIDE RECORDS SUMMARY | 2023-12-03 07:57 | XMS_ITS | Referral Summary ---
Author Organization [facility] Address [address] [place] [address] Care Team Providers Care Wardrobe Stylist Name Role Phone Clem Olvera MD Primary Care Provider [phone] Allergies No known active allergies Medications Medication [...] Advance Directives For more information, please contact: [phone] * Full Code (Latest Code Status on File) Date Activated Date Inactivated Comments 02/27/2016 8:49 02/28/2016 15:40 Question Answer Comments Reason for decision includes: Full code consistent with overall plan of care Who participated in the discussion? Not Discusse d Care Teams Wardrobe Stylist Relationship Specialty Start Date End Date Clem Olvera MD [address] [place] [id number] PCP - General 12/18/15
--- OUTSIDE RECORDS SUMMARY | 2023-12-03 07:57 | XMS_ITS | Encounter Summary ---
Author Organization [facility] Address [address] [place] [address] Care Team Providers Care Artificial Intelligence Specialist Name Role Phone Clem Olvera MD Primary Care Provider [phone] Reason for Referral * (Routine) - Closed Specialty Diagnoses / Procedures Referred By Pedro madera Referred To Contact Beatrice De La Garza NP [address] [place] [phone] Referral ID Status Reason Start Date Expiration Date V isits Requested Visits Authorized [id number] Closed Specialty Services Required 02/27/2016 1 1 Comments You must contact us if we have not contacted you or you have missed your scheduled appointment. If you have any nursing questions, please don't hesitate to call the Cardiac Arrhythmia Service at [facility] at [phone] or , extension [phone]. For any scheduling of appointments, please call [phone] or , extension [phone]. . * (Routine) - Closed Specialty Diagnoses / Procedures Referred By Pedro madera Referred To Contact Beatrice De La Garza NP [address] [address] Referral ID Status Reason Start Date Expiration Date V isits Requested Visits Authorized [id number] Closed Specialty Services Required 02/27/2016 1 1 Comments You have a pre existing appointment with Dr. Olvera on March 05 at 2:00, please have Dr. Olvera check your incision at that visit. * (Routine) - Closed Specialty Diagnoses / Procedures Referred By Contbecca t Referred To Contact Beatrice De La Garza NP [address] [phone] Referral ID Status Reason Start Date Expiration Date V isits Requested Visits Authorized [id number] Closed Specialty Services Required 02/27/2016 1 1 [...] scheduled at your first appointment. - [facility] Cardiology is located at [address] [facility] in [place] -Clinics are also held in [facility], and [place], [place] and [facility]. If you live in those areas, we will make arrangements for follow-up appointments in one of those clinics.. Encounter Details Date Type Department Care Team (Late st Contact Info) Description 02/27/2016 6:30 EDT - 02/28/2016 13:39 EDT Hospital Encounter [facility] Cardiac/Telemetry Unit [address] [place] [address] Gulshan Drummond MD PhD [address] [address] Gulshan Montoya Sa, MD [address] [facility] [address] [place] [phone] AICD lead malfunction, subsequent encounter; ICD [...] EF of 20-25% status post silent inferior OR in the early . 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 He had heart failure symptoms that started around May 2013, when he was in [place], [place]. This triggered major cardiac workup including [...] then underwent a device upgrade to a HOTEL MAINTENANCE TECHNICIAN-D device with biventricular pacing for his [...] been followed in cardiology outreach clinic at [facility] in [place]. Continued high pacing threshold on the epicardial [...] and plans to follow up with his [employer] in [place] in 6-8 weeks for which he will arrange once he has arrived in [place]. He has been provided with the implant [...] HGBA1C Discharge Follow Up Appointments Scheduled with [facility] Appointments Outside of [facility] We Will Schedule Studies We Will Schedule Appointments We Recommend but have not been Scheduled Beatrice De La Garza NP 02/27/2016 10:59 Associated attestation - Gulshan Montoya Sa, MD - 02/28/2016 1519 EDT Attending Attestation: I saw and evaluated the patient. I discussed the case with the resident/OUTREACH LIAISON/fellow and agree with the findings and plan as documented above. Gulshan bullock Sa, MD Cardiac Electrophysiology documented in this encounter Discharge Instructions * Appointments* Beatrice De La Garza NP - 02/27/2016 11:[address] Olvera on 03/05/16 at 2:00 as previously scheduled for a routine visit and for a check of your incision. Follow up with Giselle Hill NP at the [facility] in May, you will be notified [...] Notes * Lou Alfonso RN - 02/28/2016 3130 EDT Pt awaiting discharge. IV and tele was removed by primary nurse. This RN administered flu shot and provided flu information sheet. AVS and medications reviewed by RN with patient and . AVS statedcoreg was 3.25mg BID, which pt states no, they must have copied it down wrong. I'm not doing that.We've been through this in [place]. It makes me pass out. RN suggested checking with team, which pt denied and states I wont take it twice a day. He did agree to review this medication with his oim architect and plans to remain on his home dosing, which was in the morning. He received dose this am. Ptleft via wheelchair with . * Beatrice Rodriguez - 02/28/2016 1329 EDT Brief visit with patient and as they were being discharged. Patient states he is independent in self care and home management. He feels well supported by friends and neighbors. Patient has Medicare and [facility]. Pharmacy is [facility] in [facility]. No needs identified at time of discharge. will provide transportation. Beatrice Rodriguez RN Case Manager #[phone] documented in this encounter H&P Notes * Navdeep Hurd MD - 02/27/2016 0830 EDT Cardiology Admitting H&P Admit Date: 02/27/2016 Date of Service: 02/27/2016 PCP: Clem Olvera Code Status: Full Code Chief Complaint: FINN, device battery depletion, high pacing threshold on epicardial lead HPI: 74-year-old man with coronary artery disease and ischemic cardiomyopathy status post silent inferior OR in the early . 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 He had heart failure symptoms that started around May 2013, when he was in [place], [place]. This triggered major cardiac workup including [...] point, his device was upgraded to a HOTEL MAINTENANCE TECHNICIAN-D device with biventricular pacing. By the [...] been followed in cardiology outreach clinic at [facility] in [place]. Continued high pacing threshold on the epicardial LV lead has caused a very rapid battery depletion. Dr. David Adams in [place] recommended against lead extraction and reimplant as [...] ??? Pacemaker insertion 2002 2013 second pacemaker [facility] Social History Family History Social History Substance Use Topics ??? Smoking status: Former Smoker Years: 35.00 Quit date: 1989 ??? Smokeless tobacco: Not on file ??? Alcohol use 6.6 oz/week 6 Cans of beer, 5 Glasses of wine per week , lives with , retired. Spends leong in [place]. Spends the chery in [place], [place]. Quit smoking in 1990. Has 2 [...] and ischemic cardiomyopathy status post silent inferior OR in the early . Also diagnosed with [...] point, his device was upgraded to a HOTEL MAINTENANCE TECHNICIAN-D device with biventricular pacing with a [...] EST) 03/12/2016 12:4 3 EST Scan 2 Deflash And Wash Operator PROCEDURE/MINOR JUDD GICAL ORDERABLES * ECG REPORT - SCANNED (03/04/2016 14:06 EDT) 03/04/2016 14:0 6 EDT Scan 2 Deflash And Wash Operator PROCEDURE/MINOR JUDD GICAL ORDERABLES * ECG REPORT - SCANNED (03/04/2016 14:06 EDT) 03/04/2016 14:0 6 EDT Scan 2 Deflash And Wash Operator PROCEDURE/MINOR JUDD GICAL ORDERABLES * IMPLANT RECORD - SCANNED (03/04/2016 14:06 EDT) 03/04/2016 14:0 6 EDT Scan 2 Deflash And Wash Operator PROCEDURE/MINOR JUDD GICAL ORDERABLES * ECG REPORT - SCANNED (03/01/2016 8:58 EDT) 03/01/2016 8:58 EDT Scan 2 Deflash And Wash Operator PROCEDURE/MINOR JUDD GICAL ORDERABLES * ECG REPORT - SCANNED (03/01/2016 8:58 EDT) 03/01/2016 8:58 EDT Scan 2 Deflash And Wash Operator PROCEDURE/MINOR JUDD GICAL ORDERABLES * CHEST PA [...] identified. No pleural effusion. ?? Procedure Note Uilces Read MD - 02/28/2016 CHEST PA AND [...] IMAGING ORDERABLES * HEMAGRAM (02/28/2016 5:44 EDT) [facility] WBC 9.84 4.0 - 10.4 K/cmm 02/28/2016 6:26 EDT [facility] RBC 4.42 4.36 - 5.78 M/cmm 02/28/2016 6:26 T [facility] Hemoglobin 14.2 13.8 - 17.3 gm/dl 02/28/2016 6:26 [facility] HCT 40.9 39.5 - 50.2 % 02/28/2016 6:26 [facility] MCV 93 81 - 95 fl 02/28/2016 6:26 [facility] MCH 32.1 27.6 - 33.0 pg 02/28/2016 6:26 [facility] MCHC 34.7 32.8 - 36.4 gm/dl 02/28/2016 6:26 [facility] RDW-CV 13.1 11.8 - 14.1 % 02/28/2016 6:26 [facility] RDW-SD 44.6 36.5 - 45.9 fl 02/28/2016 6:26 [facility] PLT 151 141 - 377 K/cmm 02/28/2016 6:26 [facility] MPV 11.2 9.5 - 12.7 fl 02/28/2016 6:26 [facility] Blood specimen (specimen) BLOOD SPECIMEN / Unknown 02/28/2016 5:44 EDT 02/28/2016 6:13 EDT Beatrice De La Garza NP HEMATOLOGY & PF4 ORDERABLES [facility] [address] [place] [address] * (ABNORMAL) CREATININE (02/28/2016 5:44 EDT) Creatinine 0.65(L) 0.66 - 1.25 mg/dl 02/28/2016 6:48 EDT [facility] GFR, Calculated 95 >60 ml/min/1.7 3m2 02/28/2016 6:48 EDT [facility] Comment: eGFR calculated using CKD-EPI equation for non Americans. Multiply eGFR by 1.16 for Americans. Blood specimen (specimen) BLOOD SPECIMEN / Unknown 02/28/2016 5:44 EDT 02/28/2016 6:13 EDT Beatrice De La Garza NP CHEMISTRY & B LOOD GAS ORDERABLES Performing Organization Address [facility]/ZIP Co de Phone Number [facility] [address] [place] [address] * BUN (02/28/2016 5:44 EDT) BUN 14 10 - 26 mg/dl 02/28/2016 6:48 EDT [facility] Blood specimen (specimen) BLOOD SPECIMEN / Unknown 02/28/2016 5:44 EDT 02/28/2016 6:13 EDT Beatrice De La Garza OUTREACH LIAISON CHEMISTRY & B LOOD GAS ORDERABLES Performing Organization Address [facility] Co de Phone Number [facility] [address] [place] [address] * ELECTROLYTES (02/28/2016 5:44 EDT) Sodium 138 136 - 145 mEq/L 02/28/2016 6:48 EDT [facility] Potassium 4.7 3.5 - 5.0 mEq/L 02/28/2016 6:48 EDT [facility] Chloride 104 96 - 110 mEq/L 02/28/2016 6:48 EDT [facility] CO2 25 22 - 32 mEq/L 02/28/2016 6:48 EDT [facility] Comment:Note new reference r hong 02/19/16 Blood specimen (specimen) BLOOD SPECIMEN / Unknown 02/28/2016 5:44 EDT 02/28/2016 6:13 EDT Beatrice De La Garza NP CHEMISTRY & B LOOD GAS ORDERABLES [facility] [address] [place] [address] * PORTABLE CHEST 1 VIEW (02/27/2016 12:46 [...] 12:41 EDT) 02/27/2016 12:4 1 EDT Narrative [facility] EKG - 02/28/2016 8:57 EDT ? [facility] ? Test Date: ?2016-02-27 Pat Name: ? NABIL IGLESIAS ? Department: ?? HERN[facility] 5 ? Room: ? MW514 Gender: ? M ?Controller Instructor: ?? [id number] : ?1940 ? Requested By: KAIN REED L Order Number: [id number] ? Reading MD: ?? BRAYAN CUENCA MD ? Measurements Intervals ?[place] ? Rate: ? 63 ? P: ?15 [...] Note Brayan Cuenca MD - 02/28/2016 [facility] Test Date: 2016-02-27 Pat Name: NABIL IGLESIAS Department: [place] [address] Room: [facility] Gender: M Controller Instructor: [id number] : 1940 Requested By: KAIN Gallagher Order Number: [id number] Reading MD: BRAYAN CUENCA MD Measurements Intervals [place] Rate: 63 P: 15 WY: 159 QRS: 234 QRSD: 156 T: 15 QT: 479 QTc: 493 Interpretive Statements ELECTRONIC VENTRICULAR PACEMAKER Compared to ECG 02/27/2016 08:10:34 No significant changes I reviewed the tracing and have either agreed or edited the findings inthis report. Electronically Signed On 02-28-16 08:57:02 EDT by BRAYAN BEEBE. Gulshan Drummond MD PhD CARDIA C ECG ORDERABLES [facility] EKG * PROTIME (02/27/2016 8:45 EDT) Pro Time 12.3 10.3 - 13.1 secs 02/27/2016 9:10 EDT [facility] Comment: New prothrombin t josue range effective 01/29/16 I.N.R. 1.1 0.9 - 1.1 Ratio 02/27/2016 9:10 EDT [facility] Comment: Moderate Intensity Coumadin INR = 2.0-3.0 Adjustments in anticoagulant therapy dose should be based upon the INR and NOT the Pro Time. Blood specimen (specimen) BLOOD SPECIMEN / Unknown 02/27/2016 8:45 EDT 02/27/2016 8:54 EDT Gulshan Drummond MD PhD HEMATO LOGY & PF4 ORDERABLES [facility] [address] [place] [address] * HEMAGRAM (02/27/2016 8:45 EDT) WBC 6.47 4.0 - 10.4 K/cmm 02/27/2016 8:57 EDT [facility] RBC 4.51 4.36 - 5.78 M/cmm 02/27/2016 8:57 EDT [facility] Hemoglobin 14.7 13.8 - 17.3 gm/dl 02/27/2016 8:57 EDT [facility] HCT 41.7 39.5 - 50.2 % 02/27/2016 8:57 EDT [facility] MCV 93 81 - 95 fl 02/27/2016 8:57 EDT [facility] MCH 32.6 27.6 - 33.0 pg 02/27/2016 8:57 EDT [facility] MCHC 35.3 32.8 - 36.4 gm/dl 02/27/2016 8:57 T [facility] RDW-CV 13.1 11.8 - 14.1 % 02/27/2016 8:57 EDT [facility] RDW-SD 44.0 36.5 - 45.9 fl 02/27/2016 8:57 EDT [facility] PLT 176 141 - 377 K/cmm 02/27/2016 8:57 EDT [facility] MPV 10.7 9.5 - 12.7 fl 02/27/2016 8:57 EDT [facility] Blood specimen (specimen) BLOOD SPECIMEN / Unknown 02/27/2016 8:45 EDT 02/27/2016 8:54 EDT Gulshan Drummond MD PhD HEMATO LOGY & PF4 ORDERABLES [facility] [address] [place] [address] * ELECTROLYTES (02/27/2016 8:45 EDT) Sodium 142 136 - 145 mEq/L 02/27/2016 9:13 EDT [facility] Potassium 4.7 3.5 - 5.0 mEq/L 02/27/2016 9:13 EDT [facility] Chloride 103 96 - 110 mEq/L 02/27/2016 9:13 EDT [facility] CO2 27 22 - 32 mEq/L 02/27/2016 9:13 EDT [facility] Comment:Note new reference r hong 02/19/16 Blood specimen (specimen) BLOOD SPECIMEN / Unknown 02/27/2016 8:45 EDT 02/27/2016 8:54 EDT Gulshan Drummond MD PhD CHEMIS TRY & BLOOD GAS ORDERABLES Performing Organization Address [facility] de Phone Number [facility] [address] [place] [address] * CREATININE (02/27/2016 8:45 EDT) Creatinine 0.69 0.66 - 1.25 mg/dl 02/27/2016 9:13 EDT [facility] GFR, Calculated 93 >60 ml/min/1.7 3m2 02/27/2016 9:13 EDT [facility] Comment: eGFR calculated using CKD-EPI equation for non Americans. Multiply eGFR by 1.16 for Americans. Blood specimen (specimen) BLOOD SPECIMEN / Unknown 02/27/2016 8:45 EDT 02/27/2016 8:54 EDT Gulshan Drummond MD PhD CHEMIS TRY & BLOOD GAS ORDERABLES Performing Organization Address City/[facility] Co de Phone Number [facility] [address] [place] [address] * BUN (02/27/2016 8:45 EDT) BUN 17 10 - 26 mg/dl 02/27/2016 9:13 EDT [facility] Blood specimen (specimen) BLOOD SPECIMEN / Unknown 02/27/2016 8:45 EDT 02/27/2016 8:54 EDT Gulshan Drummond MD PhD CHEMIS TRY & BLOOD GAS ORDERABLES [facility] [address] [place] [address] * EKG 12-LEAD (02/27/2016 8:08 EDT) 02/27/2016 8:08 EDT Narrative [facility] EKG - 02/28/2016 9:01 EDT ? [facility] ? Test Date: ?2016-02-27 Pat Name: ? NABIL IGLESIAS ? Department: ?? PeriopMainC ? Room: ? [id number] Gender: ? M ?Controller Instructor: ?? [id number] : ?1940 ? Requested By: MARCIA Boo Order Number: [id number] ? Julia WRIGHT: ?? BRAYAN CUENCA MD ? Measurements Intervals ?[place] ? Rate: ? 69 ? P: ?147 [...] Note Brayan Cuenca MD - 02/28/2016 [facility] Test Date: 2016-02-27 Pat Name: NABIL IGLESIAS Department: [facility] Room: [id number] Gender: M Controller Instructor: [id number] : 1940 Requested By: MARCIA Boo Order Number: [id number] Reading MD: BRAYAN CUENCA MD Measurements Intervals [place] Rate: 69 P: 147 WY: 134 QRS: -67 QRSD: 160 T: -59 QT: 434 QTc: 467 Interpretive Statements ELECTRONIC ATRIAL PACEMAKER ELECTRONIC VENTRICULAR PACEMAKER Compared to ECG 02/27/2016 08:08:46 No significant changes I reviewed the tracing and have either agreed or edited the findings inthis report. Electronically Signed On 02-28-16 09:01:04 EDT by BRAYAN BEEBE. Navdeep Hurd MD CARDIAC ECG ORD ERABLES [facility] EKG documented in this encounter Visit [...] Reason: Other - Comment: pt already took GAS ENGINEER, takes other meds at HS) 921 (Given [...] Discontinued, Routine 1614 (Not Given - Provider: Nnkea Stuart RN - Reason: Patient/family refused - Comment: states i only take it once in the morning at home) 921 (Given - Provider: Sydnee Gallagher RN) lisinopril (PRINIVIL, ZESTRIL) tablet 2.5 mg 2.5 mg, oral, DAILY, First dose on Thu02/27/16 at 1245, Until Discontinued, Routine 1306 (Not Given - Provider: Nneka Stuart RN - Reason: Other - Comment: pt already took GAS ENGINEER, takes other meds at HS)2100 (Given - Provider: Mady Bruno RN) spironolactone (ALDACTONE) tablet 12.5 mg 12.5 mg, oral, DAILY, First dose on Thu02/27/16 at 1245, Until Discontinued, Routine 1306 (Not Given - Provider: Nneka Stuart RN - Reason: Other - Comment: pt already took GAS ENGINEER, takes other meds at HS)2102 (Given - Provider: Mady Bruno RN) tamsulosin (FLOMAX) capsule 0.4 mg 0.4 mg, oral, DAILY, First dose on Thu02/27/16 at 1245, Until Discontinued, Routine 1306 (Not Given - Provider: Nneka Stuart RN - Reason: Other - Comment: pt already took GAS ENGINEER, takes other meds at HS) 921 (Given [...] 02/02 documented in this encounter Care Teams Artificial Intelligence Specialist Relationship Specialty Start Date End Date Clem Olvera MD [address] [place] [id number] PCP - General 12/18/15 documented as of this encounter
--- OUTSIDE RECORDS SUMMARY | 2023-12-03 07:57 | XMS_ITS | Encounter Summary ---
Author Organization [facility] [place] [address] Care Team Providers Care Reel Cart Operator Name Role Phone Donny Cooper MD Primary Care Provider [phone] Encounter Details Date Type Department Care Team (Late st Contact Info) Description 07/26/2019 Notes Only Cardiology at [address] [address] Maged Arguelles MD [facility] [place] [address] [place] [address] Social History Tobacco Use Types Packs/Day Years [...] his Medtronic biventricular ICD is reviewed. Suboptimal AIRCRAFT ENGINE DISMANTLER at 84%. Normal device function. Awaiting Holter to assess PVC burden. Maged Arguelles MD [facility] Cardiac Electrophysiology 07/26/2019 9:04 AM documented in this encounter Plan of Treatment Upcoming Encounters Date Type Department Care Team (Late st Contact Info) Description 02/02/2024 10:00 AM EDT Hospital Encounter Non-Invasive Cardiology [place] [address] Arrived documented as of this encounter Visit Diagnoses Not on filedocumented in this encounter Care Teams Reel Cart Operator Relationship Specialty Start Date End Date Donny Cooper MD [address] [place] [address] PCP - General Family Medicine 02/25/19 documented as of this encounter
--- OUTSIDE RECORDS SUMMARY | 2023-12-03 07:57 | XMS_ITS | Encounter Summary ---
Author Organization [facility] Address [address] [place] [address] Care Team Providers Care Tax Revenue Officer Name Role Phone Unknown, Provider Primary Care Provider [phone] Clem Olvera MD Primary Care Provider [phone] Encounter Details Date Type Department Care Team (Late st Contact Info) Description 11/29/2015 Pre-Procedure Orders Encounter [facility] [address] [place], [place] [id number] Navdeep Hurd MD [address] [place] [address] [address] Social History Tobacco Use Types [...] Patient: Nabil Streeter. Attending: Dr. Moran Scrrajinder Forest Economist: Dr. Fantasma Dhillon History/indication: The patient is [...] Bilateral upper extremity venogram Date: 12/20/2015 Patient: Nbail Streeter Attending: Dr. Dean Bailey Forest Economist: Dr. Fantasma Dhillon History/indication: The patient is [...] on filedocumented in this encounter Care Teams Tax Revenue Officer Relationship Specialty Start Date End Date Unknown, Provider, PCP - General 12/06/12 12/17/15 Clem Olvera MD [address] [place] [id number] PCP - General 12/18/15 documented as of this encounter
--- OUTSIDE RECORDS SUMMARY | 2023-12-03 07:57 | XMS_ITS | Encounter Summary ---
Author Organization [facility] [place] [address] Care Team Providers Care Financial Dealers Name Role Phone Donny Cooper MD Primary Care Provider [phone] Encounter Details Date Type Department Care Team (Latest Contact Info) Description 06/13/2020 12:35 PM EST - 06/13/2020 11:59 PM EST Hospital Encounter Non-Invasive [place] [address] Alber Seals MD [facility] [place] [address] Cardiomyopathy, primary Discharge Disposition: Home Social History [...] AM EDT Hospital Encounter Non-Invasive [place] [address] Arrived documented as of this encounter Procedures Procedure Name Priority Date/Time Associated Diagnosis Comments ICD INTERROGATION 3 MONTH Routine 06/13/2020 12:36 PM EST Cardiomyopathy, primary documented in this encounter Results * ICD INTERROGATION 3 MONTH (06/13/2020 12:36 PM EST) Anatomical Region Laterality Modality Other Narrative 06/14/2020 10:38 AM EST Cardiac Device Remote Monitoring Report Summary Medtronic Tauntr 06/14/20 Device: RN CHRONIC-D Model: VIVA QUAD Battery: 2.96 v, estimated longevity 3 years, 11 months Pacing percentage: 78% ventricular paced Events: The presenting rhythm is atrial paced with biventricular pacing and frequent ventricular premature contractions No significant arrhythmias Impression Normal device function; suboptimal RN CHRONIC pacing likely secondary to frequent PVCs. Should consider in clinic follow-up for further evaluation Follow Up As per schedule - in-clinic and remote ALBER SEALS MD Alber Seals MD IMPLANTABLE CARDIAC DEVICE documented in this encounter Visit Diagnoses Diagnosis Cardiomyopathy, primary Other primary cardiomyopathies documented in this encounter Care Teams Financial Dealers Relationship Specialty Start Date End Date Donny Cooper MD [address] [place] [address] PCP - General Family Medicine 02/25/19 documented as of this encounter
--- OUTSIDE RECORDS SUMMARY | 2023-12-03 07:57 | XMS_ITS | Encounter Summary ---
Author Organization [facility] [place] [address] Care Team Providers Care Home Health Care Worker Name Role Phone Donny Cooper MD Primary Care Provider [phone] Encounter Details Date Type Department Care Team (Latest Contact Info) Description 10/03/2022 10:00 AM EDT Office Visit Cardiology at [address] [address] Eleno No PA [facility] [place] [address] Cardiomyopathy, primary; Presence of cardiac resynchronization therapy defibrillator (TAPE DUPLICATOR-D); Diaphragmatic stimulation by cardiac pacemaker, initial encounter [...] original note were not included. Cardiac Device TAPE DUPLICATOR-D Programming Evaluation Nabil Iglesias [id number] 10/03/2022 History: Mr. Iglesias is a pleasant [...] OFF Pacing Mode: DDD 60/130/120 Presenting EGMs: -BP/-EMERGENCY MEDICAL TECHNICIAN BASIC Underlying Rhythm: CHB with no obvious escape [...] AM EDT Hospital Encounter [place] [address] Arrived documented as of this encounter Procedures Procedure Name Priority Date/Time Associated Diagnosis Comments EKG 12-LEAD Routine 10/03/2022 11:00 AM EDT Cardiomyopathy, primary Presence of cardiac resynchronization therapy defibrillator (TAPE DUPLICATOR-D) Diaphragmatic stimulation by cardiac pacemaker, initial encounter documented in this encounter Results * EKG 12 Lead (10/03/2022 11:00 AM EDT) Ventricular rate 74 BPM MUSE SYSTEM Atrial Rate 74 BPM MUSE SYSTEM P-R Interval 154 ms MUSE SYSTEM QRS Duration 162 ms MUSE SYSTEM Q-T Interval 470 ms MUSE SYSTEM QTC Calculated (Bezet) 521 ms MUSE SYSTEM Calculated P [place] 30 degrees MUSE SYSTEM Calculated R [place] -98 degrees MUSE SYSTEM Calculated T [place] 41 degrees MUSE SYSTEM INTERPRETATION Atrial-sense d [...] cardiomyopathies Presence of cardiac resynchronization therapy defibrillator (TAPE DUPLICATOR-D) Diaphragmatic stimulation by cardiac pacemaker, initial encounter documented in this encounter Care Teams Home Health Care Worker Relationship Specialty Start Date End Date Donny Cooper MD [address] [place] [address] PCP - General Family Medicine 02/25/19 documented as of this encounter
--- OUTSIDE RECORDS SUMMARY | 2023-12-03 07:57 | XMS_ITS | Encounter Summary ---
Author Organization [facility] [place] [address] Care Team Providers Care Nursery Nurse Name Role Phone Donny Cooper MD Primary Care Provider [phone] Encounter Details Date Type Department Care Team (Latest Contact Info) Description 06/25/2021 3:23 PM EST - 06/25/2021 11:59 PM EST Hospital Encounter Non-Invasive [place] [address] Alber Seals MD [facility] [place] [address] Cardiomyopathy, primary Discharge Disposition: Home Social History [...] AM EDT Hospital Encounter Non-Invasive [place] [address] Arrived documented as of this encounter Procedures Procedure Name Priority Date/Time Associated Diagnosis Comments ICD INTERROGATION 3 MONTH Routine 06/25/2021 3:24 PM EST Cardiomyopathy, primary documented in this encounter Results * ICD INTERROGATION 3 MONTH (06/25/2021 3:24 PM EST) Anatomical Region Laterality Modality Other Narrative 06/25/2021 3:42 PM EST Cardiac Device Remote Monitoring Report Summary Medtronic Carelink Device: DIE MAKER BENCH STAMPING-D Model: VIVA QUAD Battery: 2.95 v, estimated longevity 2 years 6 months Pacing percentage: 90% DIE MAKER BENCH STAMPING paced Events: Presenting rhythm: atrial paced/biventricular paced Frequent PVC's Impression Normal device function Follow Up As per schedule - in-clinic and remote ALBER SEALS MD 06/25/21 Alber Seals MD IMPLANTABLE CARDIAC DEVICE documented in this encounter Visit Diagnoses Diagnosis Cardiomyopathy, primary Other primary cardiomyopathies documented in this encounter Care Teams Nursery Nurse Relationship Specialty Start Date End Date Donny Cooper MD [address] [place] [address] PCP - General Family Medicine 02/25/19 documented as of this encounter
--- OUTSIDE RECORDS SUMMARY | 2023-12-03 07:57 | XMS_ITS | Encounter Summary ---
Author Organization [facility] Address [address] [place] [address] Care Team Providers Care Service Technician Copier Name Role Phone Unavailable Primary Care Provider Unavailabl e Encounter Details Date Type Department Care Team (Late st Contact Info) Description 05/06/2001 Results Only [facility] [address] [place] [address] Hernandez Partida MD [address] [place] [phone] Social History Tobacco Use Types Packs/Day Years [...] is submitted entirely in cassette (B). ??(Naty Caal)/[facility] End of Report [facility] 05/06/2001 05/07/2001 9:2 5 EST Hernandez Partida MD PATHOLOGY ORDERABLES [facility] [address] [place] [address] documented in this encounter Visit Diagnoses Not on filedocumented in this encounter
--- OUTSIDE RECORDS SUMMARY | 2023-12-03 07:57 | XMS_ITS | Encounter Summary ---
Author Organization [facility] [place] [address] Care Team Providers Care Hot Dog Vender Name Role Phone Donny Cooper MD Primary Care Provider [phone] Encounter Details Date Type Department Care Team (Latest Contact Info) Description 12/18/2020 11:57 AM EDT - 12/18/2020 11:59 PM EDT Hospital Encounter Non-Invasive [place] [address] Maged Arguelles MD [facility] [place] [address] Cardiomyopathy, primary Discharge Disposition: Home Social History [...] AM EDT Hospital Encounter Non-Invasive [place] [address] Arrived documented as of this encounter Procedures Procedure Name Priority Date/Time Associated Diagnosis Comments ICD INTERROGATION 3 MONTH Routine 12/18/2020 12:00 PM EDT Cardiomyopathy, primary documented in this encounter Results * ICD INTERROGATION 3 MONTH (12/18/2020 12:00 PM EDT) Anatomical Region Laterality Modality Other Narrative 12/23/2020 11:08 PM EDT MDT DISPATCHER CLERK-D remote reviewed. Normal device function. Inadequate DISPATCHER CLERK at 80%. Maged Arguelles MD [facility] Cardiac Electrophysiology 12/23/2020 11:06 PM Maged Arguelles MD IMPLANTABLE CARDIAC DEVICE documented in this encounter Visit Diagnoses Diagnosis Cardiomyopathy, primary Other primary cardiomyopathies documented in this encounter Care Teams Hot Dog Vender Relationship Specialty Start Date End Date Donny Cooper MD [address] [place] [address] PCP - General Family Medicine 02/25/19 documented as of this encounter
--- OUTSIDE RECORDS SUMMARY | 2023-12-03 07:57 | XMS_ITS | Clinical Summary ---
Author Organization [facility] Address [address] [place] [address] Care Team Providers Care Operations Analyst Name Role Phone Clem Olvera MD Primary Care Provider [phone] Allergies No known active allergies Medications Medication [...] PACEMAKER INSERTION 05/04/2002 - 05/03/20032013 second pacemaker [facility] Medical History Medical History Date Comments [...] Advance Directives For more information, please contact: [phone] * Full Code (Latest Code Status on File) Date Activated Date Inactivated Comments 02/27/2016 8:49 02/28/2016 15:40 Question Answer Comments Reason for decision includes: Full code consistent with overall plan of care Who participated in the discussion? Not Discusse d Care Teams Operations Analyst Relationship Specialty Start Date End Date Clem Olvera MD [address] [place] [address] PCP - General 12/18/15
--- OUTSIDE RECORDS SUMMARY | 2023-12-03 07:57 | XMS_ITS | Encounter Summary ---
[place] [address] Care Team Providers Care Neonatal Intensive Care Unit Nurse Name Role Phone Donny Cooper MD Primary Care Provider [phone] Encounter Details Date Type Department Care Team (Late st Contact Info) Description 06/14/2020 Telephone Cardiology at [address] [phone] Nhung Briggs Social History Tobacco Use Types [...] like to be seen at [facility]. Email sent to Brittaney Hernandez at [facility] asking her to reach out to pt to set up the appt with either Dr. Arguelles or LANG Albert. Nhung Allen Electrophysiology Scheduling [id number] option 2 documented in this encounter Plan of Treatment Upcoming Encounters Date Type Department Care Team (Late st Contact Info) Description 02/02/2024 10:00 AM EDT Hospital Encounter [place] [address] Arrived documented as of this encounter Visit Diagnoses Not on filedocumented in this encounter Care Teams Neonatal Intensive Care Unit Nurse Relationship Specialty Start Date End Date Donny Cooper MD [address] [place] [address] PCP - General Family Medicine 02/25/19 documented as of this encounter
--- OUTSIDE RECORDS SUMMARY | 2023-12-03 07:57 | XMS_ITS | Clinical Summary ---
Author Organization [facility] [place] [address] Care Team Providers Care Cell Technician Name Role Phone Donny Cooper MD Primary Care Provider [phone] Allergies No known active allergies Medications Medication [...] PM EDT Hospital Encounter [place] [address] Discharge Disposition: Home from Last 3 Months [...] AM EDT Hospital Encounter [place] [address] Arrived Health Maintenance Due Date Last Done Comments Tdap adult 08/19/1959 Tetanus vaccine 08/19/1959 Zoster vaccine (1 of 2) 1990 Advance Directive 08/19/1995 Pneumoccocal Vaccine: 65+ (2 of 2 - PCV) 05/04/2009 05/04/2008 Covid-19 Vaccine ( - 2022- season) 2023 Influenza (Flu) vaccine (1 o f 1 - Influenza standard series) 01/03/2024 02/01/2010, 03/06/2006, 02/24/2005 Medical Devices Implanted Type Area Building Services Supervisor Device Identifier Shelf Expiration Date Model / Serial / Lot Mdt : [id number] : [id number] Implanted: (Quantity not on file) Cardiac Resynchronization Therapy - Defibrillator Chest Medtronic - [id number] / [id number] / Procedures Procedure Name Priority Date/Time Associated Diagnosis Comments PRO ICD INTERROGATION REMOTE UP TO 90 DAYS Routine 09/08/2023 5:26 AM EDT from Last 3 Months Results * Cardiac Device Check - Remote (09/08/2023 5:26 AM EDT) Anatomical Region Laterality Modality Other 09/08/2023 5:26 AM EDT Alber Seals MD IMPLANTABLE CARDIAC DEVICE from Last 3 Months Care Teams Cell Technician Relationship Specialty Start Date End Date Donny Cooper MD [address] [place] [address] PCP - General Family Medicine 02/25/19
--- OUTSIDE RECORDS SUMMARY | 2023-12-03 07:58 | XMS_ITS | Encounter Summary ---
Author Organization [facility] [place] [address] Care Team Providers Care Equity Holder Name Role Phone Marques Martinez MD Primary Care Provider [phone] Encounter Details Date Type Department Care Team (Late st Contact Info) Description 05/01/2010 3:10 PM EST Office [place] [phone] Jairon Fenton MD [facility] [place] [address] Discharge Disposition: Home Social History Tobacco Use [...] AM EDT Hospital Encounter Non-Invasive [place] [address] Arrived documented as of this encounter Visit Diagnoses Not on filedocumented in this encounter Care Teams Equity Holder Relationship Specialty Start Date End Date Marques Martinez MD [address] [place] [address] PCP - General 04/01/10 04/08/11 documented as of this encounter
--- OUTSIDE RECORDS SUMMARY | 2023-12-03 07:58 | XMS_ITS | Encounter Summary ---
Author Organization [facility] [place] [address] Care Team Providers Care Fruit Trimmer Name Role Phone Marques Martinez MD Primary Care Provider [phone] Encounter Details Date Type Department Care Team (Late st Contact Info) Description 09/11/2010 Orders Only [place] [phone] Jairon Fenton MD [facility] DR [place] [address] Fracture of patella, left, closed (Primary Dx) [...] AM EDT Hospital Encounter Non-[place] [address] Arrived documented as of this encounter Visit Diagnoses Diagnosis Fracture of patella, left, closed- Primary Closed fracture of patella documented in this encounter Care Teams Fruit Trimmer Relationship Specialty Start Date End Date Marques Martinez MD [address] [place] [address] PCP - General 04/01/10 04/08/11 documented as of this encounter
--- OUTSIDE RECORDS SUMMARY | 2023-12-03 07:58 | XMS_ITS | Encounter Summary ---
Author Organization [facility] [place] [address] Care Team Providers Care Lyric Writer Name Role Phone Marques Martinez MD Primary Care Provider [phone] Encounter Details Date Type Department Care Team (Late st Contact Info) Description 03/30/2010 [place] [address] Javier Barajas MD [facility] [place] [address] Social History Tobacco Use Types Packs/Day Years [...] AM EDT Hospital Encounter Non-[place] [address] Arrived documented as of this encounter Procedures [...] AM EST Jairon Fenton MD CHEMISTRY ORDERABLES [facility] * (ABNORMAL) CREATININE, SERUM (04/01/2010 6:09 [...] Fenton MD CHEMISTRY ORDERABLES Performing Organization Address [facility] de Phone Number CERIVIS SHERENNI[facility] * BUN (04/01/2010 6:09 AM EST) BUN 12 10 - 20 mg/dL [facility] Blood specimen (specimen) 04/01/2010 6:09 AM EST 04/01/2010 6:09 AM EST Jairon Fenton MD CHEMISTRY ORDERABLES Performing Organization Address [facility] de Phone Number CERNER CHRISTOSENNIUM [...] MD HEMATOLOGY ORDERABLE S Performing Organization Address [facility] Co de Phone Number CERNER MILLENNIUM [...] Fenton MD CHEMISTRY ORDERABLES Performing Organization Address [facility] Phone Number [facility]ERIVIS MILLENNI[facility] * ELECTROLYTE [...] Fenton MD CHEMISTRY ORDERABLES Performing Organization Address [facility] Co de Phone Number CERNER MILLENNI[facility] * CREATININE, SERUM (03/30/2010 6:05 PM EST) Creatinine 0.87 0.80 - 1.50 mg/dL [facility] Estimated GFR >60 >=60 [facility] Comment: The National Kidney Disease Education [...] Fenton MD CHEMISTRY ORDERABLES Performing Organization Address [facility] Co de Phone Number [facility] * BUN (03/30/2010 6:05 PM EST) BUN 18 10 - 20 mg/dL [facility] Blood specimen (specimen) 03/30/2010 6:05 PM EST 03/30/2010 6:13 PM EST Jiaron Fenton MD CHEMISTRY ORDERABLES Performing Organization Address [facility]/ZIP Co de Phone Number [facility] * APTT (03/30/2010 6:05 PM EST) PTT 26 25 - 37 sec [facility] Comment: Recommended therapeutic PTT range for full dose unfractionated heparin is 80-114 seconds. Blood specimen (specimen) 03/30/2010 6:05 PM EST 03/30/2010 6:14 PM EST Jairon Fenton MD HEMATOLOGY ORDERABLE S Performing Organization Address [facility] Co de Phone Number [facility] * PROTIME-INR (03/30/2010 6:05 PM EST) PT 14.2 12.3 - 14.7 sec [facility] Comment: [facility] Transfusion Committee Guidelines: INR less than 2.0, PTT less than OR equal to 43.5 seconds, or Fibrinogen greater than or equal to 100 mg/dl indicate adequate procoagulant activity for hemostasis in patients without underlying bleeding disorders. INR 1.1 0.9 - 1.1 [facility] Blood specimen (specimen) 03/30/2010 6:05 PM EST 03/30/2010 6:14 PM EST Jairon Fenton MD HEMATOLOGY ORDERABLE S Performing Organization Address [facility] Co de Phone Number DEJA SEGOVIA [...] EST Jairon Fenton MD HEMATOLOGY ORDERABLE S [facility] * (ABNORMAL) CBC (03/30/2010 6:05 PM [...] BANK LAB ORDER PRECIOUS Performing Organization Address City/[facility]/ZIP Co de Phone Number [facility] * REFLEX LAB-ABO/RH (03/30/2010 3:17 PM EST) ABORH Type A Pos [facility] Blood specimen (specimen) 03/30/2010 3:17 PM EST 03/30/2010 3:17 PM EST Javier Barajas MD BLOOD BANK LAB ORDER PRECIOUS [facility] * ELECTROLYTE PANEL (03/30/2010 2:50 PM [...] Barajas MD CHEMISTRY ORDERABLES Performing Organization Address [facility] Co de Phone Number [facility] * CREATININE, SERUM (03/30/2010 2:50 PM EST) Creatinine 0.85 0.80 - 1.50 mg/dL [facility] Estimated GFR >60 >=60 [facility] Comment: The National Kidney Disease Education [...] Barajas MD CHEMISTRY ORDERABLES Performing Organization Address City/[facility]/ZIP Co de Phone Number [facility] * BUN (03/30/2010 2:50 PM EST) BUN 18 10 - 20 mg/dL [facility] Blood specimen (specimen) 03/30/2010 2:50 PM EST 03/30/2010 3:05 PM EST Javier Barajas MD CHEMISTRY ORDERABLES Performing Organization Address [facility] Phone Number [facility] * GLUCOSE, RANDOM (03/30/2010 2:50 PM EST) Glucose Lvl 95 <=199 mg/dL [facility] Comment:Diabetes: >=200 mg/d L plus symptoms Blood specimen (specimen) 03/30/2010 2:50 PM EST 03/30/2010 3:05 PM EST Javier Barajas MD CHEMISTRY ORDERABLES Performing Organization Address [facility] Phone Number [facility] * APTT (03/30/2010 2:50 PM EST) PTT 25 25 - 37 sec [facility] Comment: Recommended therapeutic PTT range for full dose unfractionated heparin is 80-114 seconds. Blood specimen (specimen) 03/30/2010 2:50 PM EST 03/30/2010 3:06 PM EST Javier Barajas MD HEMATOLOGY ORDERABLE S Performing Organization Address [facility] Phone Number [facility] * PROTIME-INR (03/30/2010 2:50 PM EST) PT 14.1 12.3 - 14.7 sec [facility] Comment: [facility] Transfusion Committee Guidelines: INR less than 2.0, PTT less than OR equal to 43.5 seconds, or Fibrinogen greater than or equal to 100 mg/dl indicate adequate procoagulant activity for hemostasis in patients without underlying bleeding disorders. INR 1.1 0.9 - 1.1 [facility] Blood specimen (specimen) 03/30/2010 2:50 PM [...] on filedocumented in this encounter Care Teams Lyric Writer Relationship Specialty Start Date End Date Marques Martinez MD [address] [place] [address] PCP - General 04/01/10 04/08/11 documented as of this encounter
--- OUTSIDE RECORDS SUMMARY | 2023-12-03 07:58 | XMS_ITS | Encounter Summary ---
[place] [address] Care Team Providers Care Pearl Stringer Name Role Phone Marques Martinez MD Primary Care Provider [phone] Encounter Details Date Type Department Care Team (Late st Contact Info) Description 05/01/2010 2:40 PM EST Procedure visit [place] [address] Social History Tobacco Use Types Packs/Day Years [...] AM EDT Hospital Encounter Non-[place]vasive [place] [address] Arrived documented as of this encounter Visit Diagnoses Not on filedocumented in this encounter Care Teams Pearl Stringer Relationship Specialty Start Date End Date Marques Martinez MD [address] [place] [address] PCP - General 04/01/10 04/08/11 documented as of this encounter
--- OUTSIDE RECORDS SUMMARY | 2023-12-03 07:58 | XMS_ITS | Encounter Summary ---
[place] [address] Care Team Providers Care News Correspondent Name Role Phone Marques Martinez MD Primary Care Provider [phone] Encounter Details Date Type Department Care Team (Late st Contact Info) Description 06/12/2010 2:00 PM EST Procedure visit [place] [address] Social History Tobacco Use Types Packs/Day Years [...] AM EDT Hospital Encounter Non-Invasive [place] [address] Arrived documented as of this encounter Visit Diagnoses Not on filedocumented in this encounter Care Teams News Correspondent Relationship Specialty Start Date End Date Marques Martinez MD [address] [place] [address] PCP - General 04/01/10 04/08/11 documented as of this encounter
--- OUTSIDE RECORDS SUMMARY | 2023-12-03 07:58 | XMS_ITS | Encounter Summary ---
Author Organization [facility] [place] [address] Care Team Providers Care Netbackup Admin Name Role Phone Marques Martinez MD Primary Care Provider [phone] Encounter Details Date Type Department Care Team (Late st Contact Info) Description 06/12/2010 2:10 PM EST Office [place] [phone] Jairon Fenton MD [facility] DR [place] [address] Discharge Disposition: Home Social History Tobacco Use [...] AM EDT Hospital Encounter Non-[place] [address] Arrived documented as of this encounter Visit Diagnoses Not on filedocumented in this encounter Care Teams Netbackup Admin Relationship Specialty Start Date End Date Marques Martinez MD [address] [place] [address] PCP - General 04/01/10 04/08/11 documented as of this encounter
[2023-12-08 08:11] VITALS: BP 134/73; PULSE 69
--- OUTSIDE RECORDS SUMMARY | 2023-12-08 08:21 | XMS_ITS | Encounter Summary ---
Author Organization [facility] Address [address] [place] [address] Care Team Providers Care Special Education Kindergarten Teacher Name Role Phone Clem Olvera MD Primary Care Provider [phone] Reason for Visit * Reason Onset Date Comments Appointment Related 10/23/2016 Check for fo llow up of pacer Encounter Details Date Type Department Care Team ([facility] Contact Info) Description 10/23/2016 Telephone [facility] Cardiology - [address] [place] [address] Pacemaker, Pace Appointment Related (Check [...] that Nabil had his pacemaker checked in [place] where they are for the winter. They have some back and are being followed by Dr. Hurd at [facility]. documented in this encounter Plan of Treatment Not on file documented as of this encounter Visit Diagnoses Not on filedocumented in this encounter Care Teams Special Education Kindergarten Teacher Relationship Specialty Start Date End Date Clem Olvera MD [address] [place] [address] PCP - General 12/18/15 documented as of this encounter
--- OUTSIDE RECORDS SUMMARY | 2023-12-08 08:21 | XMS_ITS | Encounter Summary ---
Author Organization [facility] Address [address] [place] [address] Care Team Providers Care Loan Closer Name Role Phone Clem Olvera MD Primary Care Provider [phone] Reason for Referral * (Routine) - Closed Specialty Diagnoses / Procedures Referred By Pedro madera Referred To Contact Beatrice De La Garza NP [address] [place] [phone] Referral ID Status Reason Start Date Expiration Date V isits Requested Visits Authorized [id number] Closed Specialty Services Required 02/27/2016 1 1 Comments You must contact us if we have not contacted you or you have missed your scheduled appointment. If you have any nursing questions, please don't hesitate to call the Cardiac Arrhythmia Service at [facility] at [phone] or , extension [phone]. For any scheduling of appointments, please call [phone] or , extension [phone]. . * (Routine) - Closed Specialty Diagnoses / Procedures Referred By Pedro madera Referred To Contact Beatrice De La Garza NP [address] [address] Referral ID Status Reason Start Date Expiration Date V isits Requested Visits Authorized [id number] Closed Specialty Services Required 02/27/2016 1 1 Comments You have a pre existing appointment with Dr. Olvera on March 05 at 2:00, please have Dr. Olvera check your incision at that visit. * (Routine) - Closed Specialty Diagnoses / Procedures Referred By Contbecca t Referred To Contact Beatrice De La Garza NP [address] [address] Referral ID Status Reason Start Date Expiration Date V isits Requested Visits Authorized [id number] Closed Specialty Services Required 02/27/2016 1 1 [...] scheduled at your first appointment. - [facility] Cardiology is located at [address] [facility] in [place] -Clinics are also held in [facility], and [place], [place] and [facility]. If you live in those areas, we will make arrangements for follow-up appointments in one of those clinics.. Encounter Details Date Type Department Care Team (Late st Contact Info) Description 02/27/2016 6:30 EDT - 02/28/2016 13:39 EDT Hospital Encounter [facility] Cardiac/Telemetry Unit [address] [place] [address] Gulshan Drummond MD PhD [address] [phone] Gulshan Montoya Sa, MD [address] [facility] [address] [place] [phone] AICD lead malfunction, subsequent encounter; ICD [...] EF of 20-25% status post silent inferior PR in the early . 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 He had heart failure symptoms that started around May 2013, when he was in [place], [place]. This triggered major cardiac workup including [...] then underwent a device upgrade to a CASH SHORTAGE INVESTIGATOR-D device with biventricular pacing for his EF [...] been followed in cardiology outreach clinic at [facility] in [place]. Continued high pacing threshold on the epicardial [...] and plans to follow up with his Fiberglass Quality Technician in [place] in 6-8 weeks for which he will arrange once he has arrived in [place]. He has been provided with the implant [...] HGBA1C Discharge Follow Up Appointments Scheduled with [facility] Appointments Outside of [facility] We Will Schedule Studies We Will Schedule Appointments We Recommend but have not been Scheduled Beatrice De La Garza NP 02/27/2016 10:59 Associated attestation - Gulshan Montoya Sa, MD - 02/28/2016 1519 EDT Attending Attestation: I saw and evaluated the patient. I discussed the case with the resident/CUSTOMER MARKETING INTERN/fellow and agree with the findings and plan as documented above. Gulshan bullock Sa, MD Cardiac Electrophysiology documented in this encounter Discharge Instructions * Appointments* Beatrice De La Garza NP - 02/27/2016 11:[address] Olvera on 03/05/16 at 2:00 as previously scheduled for a routine visit and for a check of your incision. Follow up with Giselle Hill NP at the [facility] in May, you will be [...] Notes * Lou Alfonso RN - 02/28/2016 2011 EDT Pt awaiting discharge. IV and tele was removed by primary nurse. This RN administered flu shot and provided flu information sheet. AVS and medications reviewed by RN with patient and . AVS statedcoreg was 3.25mg BID, which pt states no, they must have copied it down wrong. I'm not doing that.We've been through this in [place]. It makes me pass out. RN suggested checking with team, which pt denied and states I wont take it twice a day. He did agree to review this medication with his community chest officer and plans to remain on his home dosing, which was in the morning. He received dose this am. Ptleft via wheelchair with . * Beatrice Rodriguez - 02/28/2016 1329 EDT Brief visit with patient and as they were being discharged. Patient states he is independent in self care and home management. He feels well supported by friends and neighbors. Patient has Medicare and [facility]. Pharmacy [facility] in [facility]. No needs identified at time of discharge. will provide transportation. Beatrice Rodriguez RN Case Manager #[id number] documented in this encounter H&P Notes * Navdeep Hurd MD - 02/27/2016 0830 EDT Cardiology Admitting H&P Admit Date: 02/27/2016 Date of Service: 02/27/2016 PCP: Clem Olvera Code Status: Full Code Chief Complaint: FINN, device battery depletion, high pacing threshold on epicardial lead HPI: 74-year-old man with coronary artery disease and ischemic cardiomyopathy status post silent inferior PR in the early . 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 He had heart failure symptoms that started around May 2013, when he was in [place], [place]. This triggered major cardiac workup including [...] point, his device was upgraded to a CASH SHORTAGE INVESTIGATOR-D device with biventricular pacing. By the patient's [...] been followed in cardiology outreach clinic at [facility] in [place]. Continued high pacing threshold on the epicardial LV lead has caused a very rapid battery depletion. Dr. David Adams in [place] recommended against lead extraction and reimplant as [...] ??? Pacemaker insertion 2002 2013 second pacemaker [facility] Social History Family History Social History Substance Use Topics ??? Smoking status: Former Smoker Years: 35.00 Quit date: 1989 ??? Smokeless tobacco: Not on file ??? Alcohol use 6.6 oz/week 6 Cans of beer, 5 Glasses of wine per week , lives with , retired. Spends leong in [place]. Spends the chery in [place], [place]. Quit smoking in 1990. Has 2 [...] and ischemic cardiomyopathy status post silent inferior PR in the early . Also diagnosed with [...] point, his device was upgraded to a CASH SHORTAGE INVESTIGATOR-D device with biventricular pacing with a surgically [...] EST) 03/12/2016 12:4 3 EST Scan 2 Rn Concurrent Review PROCEDURE/MINOR JUDD GICAL ORDERABLES * ECG REPORT - SCANNED (03/04/2016 14:06 EDT) 03/04/2016 14:0 6 EDT Scan 2 Rn Concurrent Review PROCEDURE/MINOR JUDD GICAL ORDERABLES * ECG REPORT - SCANNED (03/04/2016 14:06 EDT) 03/04/2016 14:0 6 EDT Scan 2 Rn Concurrent Review PROCEDURE/MINOR JUDD GICAL ORDERABLES * IMPLANT RECORD - SCANNED (03/04/2016 14:06 EDT) 03/04/2016 14:0 6 EDT Scan 2 Rn Concurrent Review PROCEDURE/MINOR JUDD GICAL ORDERABLES * ECG REPORT - SCANNED (03/01/2016 8:58 EDT) 03/01/2016 8:58 EDT Scan 2 Rn Concurrent Review PROCEDURE/MINOR JUDD GICAL ORDERABLES * ECG REPORT - SCANNED (03/01/2016 8:58 EDT) 03/01/2016 8:58 EDT Scan 2 Rn Concurrent Review PROCEDURE/MINOR JUDD GICAL ORDERABLES * CHEST PA [...] 4.0 - 10.4 K/cmm 02/28/2016 6:26 EDT [facility] RBC 4.42 4.36 - 5.78 M/cmm 02/28/2016 6:26 T [facility] Hemoglobin 14.2 13.8 - 17.3 gm/dl 02/28/2016 6:26 [facility] HCT 40.9 39.5 - 50.2 % 02/28/2016 6:26 [facility] MCV 93 81 - 95 fl 02/28/2016 6:26 [facility] MCH 32.1 27.6 - 33.0 pg 02/28/2016 6:26 [facility] MCHC 34.7 32.8 - 36.4 gm/dl 02/28/2016 6:26 [facility] RDW-CV 13.1 11.8 - 14.1 % 02/28/2016 6:26 [facility] RDW-SD 44.6 36.5 - 45.9 fl 02/28/2016 6:26 [facility] PLT 151 141 - 377 K/cmm 02/28/2016 6:26 [facility] MPV 11.2 9.5 - 12.7 fl 02/28/2016 6:26 [facility] Blood specimen (specimen) BLOOD SPECIMEN / Unknown 02/28/2016 5:44 EDT 02/28/2016 6:13 EDT Beatrice De La Garza NP HEMATOLOGY & PF4 ORDERABLES [facility] [address] [place] [address] * (ABNORMAL) CREATININE (02/28/2016 5:44 EDT) Creatinine 0.65(L) 0.66 - 1.25 mg/dl 02/28/2016 6:48 EDT [facility] GFR, Calculated 95 >60 ml/min/1.7 3m2 02/28/2016 6:48 EDT [facility] Comment: eGFR calculated using CKD-EPI equation for non Americans. Multiply eGFR by 1.16 for Americans. Blood specimen (specimen) BLOOD SPECIMEN / Unknown 02/28/2016 5:44 EDT 02/28/2016 6:13 EDT Beatrice De La Garza NP CHEMISTRY & B LOOD GAS ORDERABLES Performing Organization Address [facility]/ZIP Co de Phone Number [facility] [address] [place] [address] * BUN (02/28/2016 5:44 EDT) BUN 14 10 - 26 mg/dl 02/28/2016 6:48 EDT [facility] Blood specimen (specimen) BLOOD SPECIMEN / Unknown 02/28/2016 5:44 EDT 02/28/2016 6:13 EDT Beatrice De La Garza CUSTOMER MARKETING INTERN CHEMISTRY & B LOOD GAS ORDERABLES Performing Organization Address [facility] Co de Phone Number [facility] [address] [place] [address] * ELECTROLYTES (02/28/2016 5:44 EDT) Sodium 138 136 - 145 mEq/L 02/28/2016 6:48 EDT [facility] Potassium 4.7 3.5 - 5.0 mEq/L 02/28/2016 6:48 EDT [facility] Chloride 104 96 - 110 mEq/L 02/28/2016 6:48 EDT [facility] CO2 25 22 - 32 mEq/L 02/28/2016 6:48 EDT [facility] Comment:Note new reference r hong 02/19/16 Blood specimen (specimen) BLOOD SPECIMEN / Unknown 02/28/2016 5:44 EDT 02/28/2016 6:13 EDT Beatrice De La Garza NP CHEMISTRY & B LOOD GAS ORDERABLES [facility] [address] [place] [address] * PORTABLE CHEST 1 VIEW (02/27/2016 12:46 [...] 12:41 EDT) 02/27/2016 12:4 1 EDT Narrative [facility] EKG - 02/28/2016 8:57 EDT ? [facility] ? Test Date: ?2016-02-27 Pat Name: ? NABIL IGLESIAS ? Department: ?? [facility] [address] ? Room: ? MW514 Gender: ? M ?Material Inspector: ?? [id number] : ?1940 ? Requested By: KAIN REED L Order Number: [id number] ? Reading MD: ?? BRAYAN CUENCA MD ? Measurements Intervals ?Danielson ? Rate: ? 63 ? P: ?15 ND: ? 159 ?QRS: ?234 QRSD: ? 156 ?T: ?15 QT: ? 479 ? QTc: ?493 ? Interpretive Statements ELECTRONIC VENTRICULAR PACEMAKER Compared to ECG 02/27/2016 08:10:34 No significant changes I reviewed the tracing and have either agreed or edited the findings in this report. Electronically Signed On 02-28-16 08:57:02 EDT by BRAYAN CUENCA MD. Procedure Note Brayan Cuenca MD - 02/28/2016 [facility] Test Date: 2016-02-27 Pat Name: NABIL IGLESIAS Department: [place] [address] Room: [facility] Gender: M Material Inspector: [id number] : 1940 Requested By: KAIN Gallagher Order Number: [id number] Reading MD: BRAYAN CUENCA MD Measurements Intervals Danielson Rate: 63 P: 15 ND: 159 QRS: 234 QRSD: 156 T: 15 QT: 479 QTc: 493 Interpretive Statements ELECTRONIC VENTRICULAR PACEMAKER Compared to ECG 02/27/2016 08:10:34 No significant changes I reviewed the tracing and have either agreed or edited the findings inthis report. Electronically Signed On 02-28-16 08:57:02 EDT by BRAYAN BEEBE. Gulshan Drummond MD PhD CARDIA C ECG ORDERABLES [facility] EKG * PROTIME (02/27/2016 8:45 EDT) Pro Time 12.3 10.3 - 13.1 secs 02/27/2016 9:10 EDT [facility] Comment: New prothrombin t josue range effective 01/29/16 I.N.R. 1.1 0.9 - 1.1 Ratio 02/27/2016 9:10 EDT [facility] Comment: Moderate Intensity Coumadin INR = 2.0-3.0 Adjustments in anticoagulant therapy dose should be based upon the INR and NOT the Pro Time. Blood specimen (specimen) BLOOD SPECIMEN / Unknown 02/27/2016 8:45 EDT 02/27/2016 8:54 EDT Gulshan Drummond MD PhD HEMATO LOGY & PF4 ORDERABLES [facility] [address] [place] [address] * HEMAGRAM (02/27/2016 8:45 EDT) WBC 6.47 4.0 - 10.4 K/cmm 02/27/2016 8:57 EDT [facility] RBC 4.51 4.36 - 5.78 M/cmm 02/27/2016 8:57 EDT [facility] Hemoglobin 14.7 13.8 - 17.3 gm/dl 02/27/2016 8:57 EDT [facility] HCT 41.7 39.5 - 50.2 % 02/27/2016 8:57 EDT [facility] MCV 93 81 - 95 fl 02/27/2016 8:57 EDT [facility] MCH 32.6 27.6 - 33.0 pg 02/27/2016 8:57 EDT [facility] MCHC 35.3 32.8 - 36.4 gm/dl 02/27/2016 8:57 T [facility] RDW-CV 13.1 11.8 - 14.1 % 02/27/2016 8:57 EDT [facility] RDW-SD 44.0 36.5 - 45.9 fl 02/27/2016 8:57 EDT [facility] PLT 176 141 - 377 K/cmm 02/27/2016 8:57 EDT [facility] MPV 10.7 9.5 - 12.7 fl 02/27/2016 8:57 EDT [facility] Blood specimen (specimen) BLOOD SPECIMEN / Unknown 02/27/2016 8:45 EDT 02/27/2016 8:54 EDT Gulshan Drummond MD PhD HEMATO LOGY & PF4 ORDERABLES [facility] [address] [place] [address] * ELECTROLYTES (02/27/2016 8:45 EDT) Sodium 142 136 - 145 mEq/L 02/27/2016 9:13 EDT [facility] Potassium 4.7 3.5 - 5.0 mEq/L 02/27/2016 9:13 EDT [facility] Chloride 103 96 - 110 mEq/L 02/27/2016 9:13 EDT [facility] CO2 27 22 - 32 mEq/L 02/27/2016 9:13 EDT [facility] Comment:Note new reference r hong 02/19/16 Blood specimen (specimen) BLOOD SPECIMEN / Unknown 02/27/2016 8:45 EDT 02/27/2016 8:54 EDT Gulshan Drummond MD PhD CHEMIS TRY & BLOOD GAS ORDERABLES Performing Organization Address [facility] de Phone Number [facility] [address] [place] [address] * CREATININE (02/27/2016 8:45 EDT) Creatinine 0.69 0.66 - 1.25 mg/dl 02/27/2016 9:13 EDT [facility] GFR, Calculated 93 >60 ml/min/1.7 3m2 02/27/2016 9:13 EDT [facility] Comment: eGFR calculated using CKD-EPI equation for non Americans. Multiply eGFR by 1.16 for Americans. Blood specimen (specimen) BLOOD SPECIMEN / Unknown 02/27/2016 8:45 EDT 02/27/2016 8:54 EDT Gulshan Drummond MD PhD CHEMIS TRY & BLOOD GAS ORDERABLES Performing Organization Address [facility] Co de Phone Number [facility] [address] [place] [address] * BUN (02/27/2016 8:45 EDT) BUN 17 10 - 26 mg/dl 02/27/2016 9:13 EDT [facility] Blood specimen (specimen) BLOOD SPECIMEN / Unknown 02/27/2016 8:45 EDT 02/27/2016 8:54 EDT Gulshan Drummond MD PhD CHEMIS TRY & BLOOD GAS ORDERABLES [facility] [address] [place] [address] * EKG 12-LEAD (02/27/2016 8:08 EDT) 02/27/2016 8:08 EDT Narrative [facility] EKG - 02/28/2016 9:01 EDT ? [facility] ? Test Date: ?2016-02-27 Pat Name: ? NABIL IGLESIAS ? Department: ?? [facility] ? Room: ? IL7222 Gender: ? M ?Material Inspector: ?? [id number] : ?1940 ? Requested By: MARCIA Boo Order Number: [id number] ? Julia WRIGHT: ?? BRAYAN CUENCA MD ? Measurements Intervals ?Danielson ? Rate: ? 69 ? P: ?147 ND: ? 134 ?QRS: ?-67 QRSD: ? 160 [...] Note Brayan Cuenca MD - 02/28/2016 [facility] Test Date: 2016-02-27 Pat Name: NABIL IGLESIAS Department: [facility] Room: SF8074 Gender: M Material Inspector: [id number] : 1940 Requested By: MARCIA Boo Order Number: [id number] Reading MD: BRAYAN CUENCA MD Measurements Intervals Danielson Rate: 69 P: 147 ND: 134 QRS: -67 QRSD: 160 T: -59 QT: 434 QTc: 467 Interpretive Statements ELECTRONIC ATRIAL PACEMAKER ELECTRONIC VENTRICULAR PACEMAKER Compared to ECG 02/27/2016 08:08:46 No significant changes I reviewed the tracing and have either agreed or edited the findings inthis report. Electronically Signed On 02-28-16 09:01:04 EDT by BRAYAN BEEBE. Navdeep Hurd MD CARDIAC ECG ORD ERABLES [facility] EKG documented in this encounter Visit Diagnoses [...] Reason: Other - Comment: pt already took SEPHORA PRODUCT CONSULTANT, takes other meds at HS) 921 (Given [...] Reason: Other - Comment: pt already took SEPH[employer] PRODUCT CONSULTANT, takes other meds at HS)2100 (Given - Provider: Mady Bruno RN) spironolactone (ALDACTONE) tablet 12.5 mg 12.5 mg, oral, DAILY, First dose on Thu02/27/16 at 1245, Until Discontinued, Routine 1306 (Not Given - Provider: Nneka Stuart RN - Reason: Other - Comment: pt already took SEPH[employer]A PRODUCT CONSULTANT, takes other meds at HS)2102 (Given - Provider: Mady Bruno RN) tamsulosin (FLOMAX) capsule 0.4 mg 0.4 mg, oral, DAILY, First dose on Thu02/27/16 at 1245, Until Discontinued, Routine 1306 (Not Given - Provider: Nneka Stuart RN - Reason: Other - Comment: pt already took SEPHORA PRODUCT CONSULTANT, takes other meds at HS) 921 (Given [...] 02/02 documented in this encounter Care Teams Loan Closer Relationship Specialty Start Date End Date Clem Olvera MD [address] [place] [address] PCP - General 12/18/15 documented as of this encounter
--- OUTSIDE RECORDS SUMMARY | 2023-12-08 08:21 | XMS_ITS | Encounter Summary ---
Author Organization [facility] Address [address] [place] [address] Care Team Providers Care Quality Internship Name Role Phone Unknown, Provider Primary Care Provider [phone] Clem Olvera MD Primary Care Provider [phone] Encounter Details Date Type Department Care Team (Late st Contact Info) Description 11/29/2015 Pre-Procedure Orders Encounter [facility] [address] [place], [place] [id number] Navdeep Hurd MD [address] [place] [address] [address] Social History Tobacco Use Types [...] Patient: Nabil Streeter. Attending: Dr. Moran Scrrajinder Drug Safety Physician: Dr. Fantasma Dhillon History/indication: The patient is [...] Patient: Nabil Streeter Attending: Dr. Dean Bailey Drug Safety Physician: Dr. Fantasma Dhillon History/indication: The patient is [...] on filedocumented in this encounter Care Teams Quality Internship Relationship Specialty Start Date End Date Unknown, Provider, PCP - General 12/06/12 12/17/15 Clem Olvera MD [address] [place] [address] PCP - General 12/18/15 documented as of this encounter
--- OUTSIDE RECORDS SUMMARY | 2023-12-08 08:21 | XMS_ITS | Referral Summary ---
Author Organization [facility] Address [address] [place] [address] Care Team Providers Care Over Hauler Helper Name Role Phone Clem Olvera MD Primary Care Provider [phone] Allergies No known active allergies Medications Medication [...] Advance Directives For more information, please contact: [phone] * Full Code (Latest Code Status on File) Date Activated Date Inactivated Comments 02/27/2016 8:49 02/28/2016 15:40 Question Answer Comments Reason for decision includes: Full code consistent with overall plan of care Who participated in the discussion? Not Discusse d Care Teams Over Hauler Helper Relationship Specialty Start Date End Date Clem Olvera MD [address] [place] [id number] PCP - General 12/18/15
--- OUTSIDE RECORDS SUMMARY | 2023-12-08 08:21 | XMS_ITS | Clinical Summary ---
Author Organization [facility] Address [address] [place] [address] Care Team Providers Care Kindergarten Instructional Assistant Name Role Phone Clem Olvera MD Primary Care Provider [phone] Allergies No known active allergies Medications Medication [...] PACEMAKER INSERTION 05/04/2002 - 05/03/20032013 second pacemaker [facility] Medical History Medical History Date Comments [...] Advance Directives For more information, please contact: [phone] * Full Code (Latest Code Status on File) Date Activated Date Inactivated Comments 02/27/2016 8:49 02/28/2016 15:40 Question Answer Comments Reason for decision includes: Full code consistent with overall plan of care Who participated in the discussion? Not Discusse d Care Teams Kindergarten Instructional Assistant Relationship Specialty Start Date End Date Clem Olvera MD [address] [place] [address] PCP - General 12/18/15
--- OUTSIDE RECORDS SUMMARY | 2023-12-08 08:21 | XMS_ITS | Clinical Summary ---
Author Organization [place] [address] Care Team Providers Care Solid Waste Facility Supervisor Name Role Phone Donny Cooper MD Primary Care Provider [phone] Allergies No known active allergies Medications Medication [...] PM EDT Hospital Encounter [place] [phone] Discharge Disposition: Home from Last 3 Months [...] AM EDT Hospital Encounter [place] [phone] Arrived Health Maintenance Due Date Last Done Comments Tdap adult 08/19/1959 Tetanus vaccine 08/19/1959 Zoster vaccine (1 of 2) 1990 Advance Directive 08/19/1995 Pneumoccocal Vaccine: 65+ (2 of 2 - PCV) 05/04/2009 05/04/2008 Covid-19 Vaccine ( - 2022- season) 2023 Influenza (Flu) vaccine (1 o f 1 - Influenza standard series) 01/03/2024 02/01/2010, 03/06/2006, 02/24/2005 Medical Devices Implanted Type Area Checking Clerk Device Identifier Shelf Expiration Date Model / Serial / Lot Mdt : [id number] : [id number] Implanted: (Quantity not on file) Cardiac Resynchronization Therapy - Defibrillator Chest Med[employer]onic - [id number] / [id number] / Procedures Procedure Name Priority Date/Time Associated Diagnosis Comments PRO ICD INTERROGATION REMOTE UP TO 90 DAYS Routine 09/08/2023 5:26 AM EDT from Last 3 Months Results * Cardiac Device Check - Remote (09/08/2023 5:26 AM EDT) Anatomical Region Laterality Modality Other 09/08/2023 5:26 AM EDT Alber Seals MD IMPLANTABLE CARDIAC DEVICE from Last 3 Months Care Teams Solid Waste Facility Supervisor Relationship Specialty Start Date End Date Donny Cooper MD [address] [place] [address] PCP - General Family Medicine 02/25/19
--- OUTSIDE RECORDS SUMMARY | 2023-12-08 08:21 | XMS_ITS | Encounter Summary ---
Author Organization [facility] Address [address] [place] [address] Care Team Providers Care Surveyor Hydrographic Name Role Phone Unavailable Primary Care Provider Unavailabl e Encounter Details Date Type Department Care Team (Late st Contact Info) Description 05/06/2001 Results Only [facility] [place] - Maple conversion [address] [place] [address] Hernandez Partida MD [address] [place] [id number] Social History Tobacco Use Types Packs/Day Years [...] submitted entirely in cassette (B). ??(Naty Caal)/[facility] End of Report [facility] 05/06/2001 05/07/2001 9:2 5 EST Hernandez Partida MD PATHOLOGY ORDERABLES [facility] [address] [place] [address] documented in this encounter Visit Diagnoses Not on filedocumented in this encounter
--- OUTSIDE RECORDS SUMMARY | 2023-12-08 08:21 | XMS_ITS | Encounter Summary ---
Author Organization [facility] Address [address] [place] [address] Care Team Providers Care Concrete Worker Name Role Phone Clem Olvera MD Primary Care Provider [phone] Reason for Visit * Reason Onset Date Comments Other 04/04/2019 Transfer request for Pacer Care at [facility] Encounter Details Date Type Department Care Team (Late st Contact Info) Description 04/04/2019 Telephone [facility] [address] [place] [address] Giselle Hill, AUDIO VISUAL FACILITIES ENGINEER Other (Transfer request for Pacer Care at [facility]) Social History Tobacco Use Types Packs/Day Years [...] 04/04/2019 1503 EST I went into the [employer] [place] Website and released pt to [facility] Pacer Clinic as requested. * Telephone Encounter - Suze Reynoso - 04/04/2019 1342 EST PT WILL BE HAVING HIS PACER CARE DONE AT [facility], PLEASE RELEASE HIS REMOTE MONITORING SO THAT THEY CAN PICK IT UP documented in this encounter Plan of Treatment Not on file documented as of this encounter Visit Diagnoses Not on filedocumented in this encounter Care Teams Concrete Worker Relationship Specialty Start Date End Date Clem Olvera MD [address] [place] [address] PCP - General 12/18/15 documented as of this encounter
--- OUTSIDE RECORDS SUMMARY | 2023-12-08 08:21 | XMS_ITS | Encounter Summary ---
Author Organization [facility] Address [address] [place] [address] Care Team Providers Care Cylinder Steamer Name Role Phone Unavailable Primary Care Provider Unavailabl e Encounter Details Date Type Department Care Team (Late st Contact Info) Description 12/02/2012 Results Only [facility] Laboratory Services - [facility] ([facility]) [address] [place] [id number] Satinder Edwards MD [address] [place] [address] Social History Tobacco Use Types Packs/Day Years [...] ? NABIL IGLESIAS ? Accession #: ? [id number] ? : ? 1940 (Age: 72) ??M [...] MD PATHOLOGY ORDERABLE S Performing Organization Address City/State/[facility] Co de Phone Number [facility] [address] [place] [address] documented in this encounter Visit Diagnoses Not on filedocumented in this encounter
--- OUTSIDE RECORDS SUMMARY | 2023-12-08 08:21 | XMS_ITS | Encounter Summary ---
Author Organization [facility] Address [address] [place] [address] Care Team Providers Care Radio Repairer Domestic Name Role Phone Clem Olvera MD Primary Care Provider [phone] Encounter Details Date Type Department Care Team (Late st Contact Info) Description 03/16/2019 Abstract [facility] [address] [place] [address] Ronal Avelar, JADON AV block, 2nd degree [...] Laterality Modality Device Narrative 03/24/2019 10:30 EST [facility] Cardiology Device Visit Course Developer: copygramtronic Device Type: ADVERTISEMENT COMPOSITOR-D Service: Remote ? 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
--- OUTSIDE RECORDS SUMMARY | 2023-12-08 08:21 | XMS_ITS | Encounter Summary ---
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 Procedures IMPLANTABLE CARDIAC DEFIBRILLATOR PROCEDURE Navdeep Hurd MD [address] [place], [place] [address] [address] [place] [address] Referral ID Status Reason Start Date Expiration Date Visits Re quested Visits Authorized [id number] Closed 02/13/2016 1 1 Encounter Details Date Type Department Care Team (Latest Contact Info) Description 02/13/2016 Pre-Procedure Orders Encounter [facility] CARDIOLOGY [address] [place], [place] [address] Navdeep [facility]urd [facility] [address] [facility] [address] [place] [address] ICD (implantable cardioverter-defibril lator) battery [...] 8 EDT Narrative 02/27/2016 15:17 EDT *Cardiology* [address] [place] [address] Lead Revision (Report amended ) Patient: Nabil Iglesias ?Study Date: ?02/27/2016 ? Accession #: ? [id number] : ? 1940 Referring: Clem Olvera Attending: [...] 0.35 glide wire a Nick MENDOZAW 6F (On license of [facility]) 6 mm-40 mm balloon dilation [...] Venograms were performed in the MOORE and MONGOLIAN projections and a suitable mid-lateral LV branch [...] fascia. The leads were connected to a COMMUNITY DEVELOPMENT WORKER-D device. Device and Lead detail in table [...] Implanted device: Medtronic - Viva Quad XT COMMUNITY DEVELOPMENT WORKER-D DF4 - Serial number: [id number] Explanted device: Medtronic - Viva XT COMMUNITY DEVELOPMENT WORKER-D DF4 - Serial number: [id number]. LEAD PARAMETERS + + + + + [...] + + + + + Serial number [id number] ? [id number] ?? [id number] ?? [id number] ? + + + + [...] Gulshan Drummond MD - 05/12/2016 *Cardiology* [address] [place] [address] Lead Revision (Report amended ) Patient: Nabil [...] therefore over an 0.35 glide wire [facility] 6F (On license of [facility]) 6 mm-40 mm balloon dilation [...] Venograms were performed in the MOORE and MONGOLIAN projections and a suitable mid-lateral LV branch [...] fascia. The leads were connected to a COMMUNITY DEVELOPMENT WORKER-D device. Device and Lead detail in table [...] Implanted device: Medtronic - Viva Quad XT COMMUNITY DEVELOPMENT WORKER-D DF4 - Serial number: [id number] Explanted device: Medtronic - Viva XT COMMUNITY DEVELOPMENT WORKER-D DF4 - Serial number: [id number]. LEAD PARAMETERS + + + + + + Lead # 1 2 3 4 + + + + + + Chamber RA RV LV LV + + + + + + Date 07/19/2002 07/18/2013 02/27/2016 07/18/2013 implanted + + + + + + Model St. Esa Medtronic Medtronic Enpath information [id number] Attain Epicardial Performa 4298 + + + + + + Serial number [id number] + + + + + + [...] situ documented in this encounter Care Teams Bistro Server Relationship Specialty Start Date End Date Clem Olvera MD [address] [place] [address] PCP - General 12/18/15 documented as of this encounter
--- OUTSIDE RECORDS SUMMARY | 2023-12-08 08:21 | XMS_ITS | Encounter Summary ---
Author Organization [facility] Address [address] [place] [address] Care Team Providers Care Breakfast Bar Attendant Name Role Phone Clem Olvera MD Primary Care Provider [phone] Encounter Details Date Type Department Care Team (Latest Contact Info) Description 12/20/2015 10:52 EDT - 12/20/2015 23:52 EDT Hospital Encounter [facility] Cardiovascular Unit [address] [place] [address] Navdeep Hurd MD [address] [place] [address] [address] Discharge Disposition: Home or Self [...] no need to beNPO or have a residential driver. However, his will be accompanying him. They [place] to the airport [place] 1000 and then will come here and check-in around 1145. He agrees to have a shower. documented in this encounter Procedure Notes * Fantasma Dhillon MD - 12/20/2015 1356 EDT IR Brief Procedure Note Attending: Leo Mandrel Maker: Alejo Pre-op Dx: Arrhythmia, need for pacemaker [...] 12/19 documented in this encounter Care Teams Breakfast Bar Attendant Relationship Specialty Start Date End Date Clem Olvera MD [address] [place] [address] PCP - General 12/18/15 documented as of this encounter
--- OUTSIDE RECORDS SUMMARY | 2023-12-08 08:22 | XMS_ITS | Encounter Summary ---
[place] [address] Care Team Providers Care Drilling Rig Operator Name Role Phone Donny Cooper MD Primary Care Provider [phone] Encounter Details Date Type Department Care Team (Latest Contact Info) Description 11/04/2023 10:00 AM EDT - 11/04/2023 11:59 PM EDT Hospital Encounter [place] [address] Discharge Disposition: Home Social History Tobacco Use [...] AM EDT Hospital Encounter Non-[place] [address] Arrived documented as of this encounter Procedures [...] on filedocumented in this encounter Care Teams Drilling Rig Operator Relationship Specialty Start Date End Date Donny Cooper MD [address] [place] [address] PCP - General Family Medicine 02/25/19 documented as of this encounter
--- OUTSIDE RECORDS SUMMARY | 2023-12-08 08:22 | XMS_ITS | Encounter Summary ---
Author Organization [facility] [place] [address] Care Team Providers Care Windows Server Administrator Name Role Phone Donny Cooper MD Primary Care Provider [phone] Encounter Details Date Type Department Care Team (Latest Contact Info) Description 06/13/2020 12:35 PM EST - 06/13/2020 11:59 PM EST Hospital Encounter Non-[place] [address] Alber Seals MD [facility] [place] [address] Cardiomyopathy, primary Discharge Disposition: Home Social History [...] AM EDT Hospital Encounter Non-[place]vasive [place] [address] Arrived documented as of this encounter Procedures Procedure Name Priority Date/Time Associated Diagnosis Comments ICD INTERROGATION 3 MONTH Routine 06/13/2020 12:36 PM EST Cardiomyopathy, primary documented in this encounter Results * ICD INTERROGATION 3 MONTH (06/13/2020 12:36 PM EST) Anatomical Region Laterality Modality Other Narrative 06/14/2020 10:38 AM EST Cardiac Device Remote Monitoring Report Summary Medtronic LoveIt 06/14/20 Device: SUPERVISOR INVENTORY MERCHANDISING-D Model: VIVA QUAD Battery: 2.96 v, estimated longevity 3 years, 11 months Pacing percentage: 78% ventricular paced Events: The presenting rhythm is atrial paced with biventricular pacing and frequent ventricular premature contractions No significant arrhythmias Impression Normal device function; suboptimal SUPERVISOR INVENTORY MERCHANDISING pacing likely secondary to frequent PVCs. Should consider in clinic follow-up for further evaluation Follow Up As per schedule - in-clinic and remote ALBER SEALS MD Alber Seals MD IMPLANTABLE CARDIAC DEVICE documented in this encounter Visit Diagnoses Diagnosis Cardiomyopathy, primary Other primary cardiomyopathies documented in this encounter Care Teams Windows Server Administrator Relationship Specialty Start Date End Date Donny Cooper MD [address] [place] [address] PCP - General Family Medicine 02/25/19 documented as of this encounter
--- OUTSIDE RECORDS SUMMARY | 2023-12-08 08:22 | XMS_ITS | Encounter Summary ---
[place] [address] Care Team Providers Care Research Instructor Name Role Phone Donny Cooper MD Primary Care Provider [phone] Encounter Details Date Type Department Care Team (Late st Contact Info) Description 03/17/2019 Telephone Cardiology at [address] [address] Sheri Quinn LNA Social History [...] 11:46 AM EST Medication list reviewed with [facility] list. Please review with patient at next clinic visit. documented in this encounter Plan of Treatment Upcoming Encounters Date Type Department Care Team (Late st Contact Info) Description 02/02/2024 10:00 AM EDT Hospital Encounter Non-Invasive [place] [address] Arrived documented as of this encounter Visit Diagnoses Not on filedocumented in this encounter Care Teams Research Instructor Relationship Specialty Start Date End Date Donny Cooper MD [address] [place] [address] PCP - General Family Medicine 02/25/19 documented as of this encounter
--- OUTSIDE RECORDS SUMMARY | 2023-12-08 08:22 | XMS_ITS | Encounter Summary ---
[place] [address] Care Team Providers Care Elevator Operator Freight Name Role Phone Donny Cooper MD Primary Care Provider [phone] Encounter Details Date Type Department Care Team (Latest Contact Info) Description 07/07/2022 10:00 AM EST - 07/07/2022 11:59 PM EST Hospital Encounter [place] [address] Discharge Disposition: Home Social History Tobacco Use [...] AM EDT Hospital Encounter [place] [address] Arrived documented as of this [...] on filedocumented in this encounter Care Teams Elevator Operator Freight Relationship Specialty Start Date End Date Donny Cooper MD [address] [place] [address] PCP - General Family Medicine 02/25/19 documented as of this encounter
--- OUTSIDE RECORDS SUMMARY | 2023-12-08 08:22 | XMS_ITS | Encounter Summary ---
[place] [address] Care Team Providers Care Cellar Packer Name Role Phone Marques Martinez MD Primary Care Provider [phone] Encounter Details Date Type Department Care Team (Late st Contact Info) Description 05/01/2010 2:40 PM EST Procedure visit [place] [address] Social History Tobacco Use Types Packs/Day Years [...] AM EDT Hospital Encounter Non-[place] [address] Arrived documented as of this encounter Visit Diagnoses Not on filedocumented in this encounter Care Teams Cellar Packer Relationship Specialty Start Date End Date Marques Martinez MD [address] [place] [address] PCP - General 04/01/10 04/08/11 documented as of this encounter
--- OUTSIDE RECORDS SUMMARY | 2023-12-08 08:22 | XMS_ITS | Encounter Summary ---
Author Organization [facility] [place] [address] Care Team Providers Care Fast Food Server Name Role Phone Marques Martinez MD Primary Care Provider Encounter Details Date Type Department Care Team (Late st Contact Info) Description 05/01/2010 3:10 PM EST Office [place] [address] Jairon Fenton MD [facility] [place] [address] Discharge Disposition: Home Social History Tobacco Use [...] AM EDT Hospital Encounter Non-[place] [address] Arrived documented as of this encounter Visit Diagnoses Not on filedocumented in this encounter Care Teams Fast Food Server Relationship Specialty Start Date End Date Marques Martinez MD [address] [place] [address] PCP - General 04/01/10 04/08/11 documented as of this encounter
--- OUTSIDE RECORDS SUMMARY | 2023-12-08 08:22 | XMS_ITS | Encounter Summary ---
Author Organization [facility] [place] [address] Care Team Providers Care Business Mgr Name Role Phone Clem Olvera MD Primary Care Provider [phone] Reason for Visit * Reason Comments Follow Up Fracture SP PATELLA FX DO12/12 DOI 03/30/10 Encounter Details Date Type Department Care Team (Late st Contact Info) Description 04/09/2011 1:30 PM EST Office [place] [address] Jairon Gustafson MD [facility] [place] [address] Jose Francisco Bee PA [facility] [place] [address] Patella fracture (Primary Dx) Discharge Disposition: Home [...] EDT Hospital Encounter Non-Invasive [place] [address] Arrived documented as of this encounter Visit Diagnoses Diagnosis Patella fracture- Primary Closed fracture of patella documented in this encounter Care Teams Business Mgr Relationship Specialty Start Date End Date Clem Olvera MD [address] [place] [address] PCP - General 04/09/11 02/24/19 documented as of this encounter
--- OUTSIDE RECORDS SUMMARY | 2023-12-08 08:22 | XMS_ITS | Encounter Summary ---
Author Organization [facility] [place] [address] Care Team Providers Care Necktie Stitcher Name Role Phone Marques Martinez MD Primary Care Provider [phone] Encounter Details Date Type Department Care Team (Late st Contact Info) Description 10/09/2010 11:35 AM EDT - 10/09/2010 11:59 PM EDT Hospital Encounter XRay at [address] [place] [place] [address] Social History Tobacco Use Types Packs/Day Years [...] AM EDT Hospital Encounter Non-Invasive Cardiology Lab [facility] [place] [address] Arrived documented as of this encounter Visit Diagnoses Not on filedocumented in this encounter Care Teams Necktie Stitcher Relationship Specialty Start Date End Date Marques Martinez MD [address] [place] [address] PCP - General 04/01/10 04/08/11 documented as of this encounter
--- OUTSIDE RECORDS SUMMARY | 2023-12-08 08:22 | XMS_ITS | Encounter Summary ---
Author Organization [facility] [place] [address] Care Team Providers Care Scoop Machine Operator Name Role Phone Marques Martinez MD Primary Care Provider [phone] Encounter Details Date Type Department Care Team (Late st Contact Info) Description 06/12/2010 2:10 PM EST Office [place] [address] Jairon Fenton MD [facility] [place] [address] Discharge Disposition: Home Social History Tobacco Use [...] AM EDT Hospital Encounter Non[place] [address] Arrived documented as of this encounter Visit Diagnoses Not on filedocumented in this encounter Care Teams Scoop Machine Operator Relationship Specialty Start Date End Date Marques Martinez MD [address] [place] [address] PCP - General 04/01/10 04/08/11 documented as of this encounter
--- OUTSIDE RECORDS SUMMARY | 2023-12-08 08:22 | XMS_ITS | Encounter Summary ---
Author Organization [facility] [place] [address] Care Team Providers Care Bi Consultant Name Role Phone Marques Martinez MD Primary Care Provider [phone] Reason for Visit * Reason Comments Follow Up Fracture PATELLA FX DOI 03/23 10 Encounter Details Date Type Department Care Team (Late st Contact Info) Description 10/09/2010 12:40 PM EDT Office [place] [address] Jairon Gustafson MD [facility] [place] [address] Jose Francisco Bee PA [facility] [place] [address] Quadriceps tendon rupture (Primary Dx) Discharge Disposition: [...] AM EDT Hospital Encounter Non-[place] [address] Arrived documented as of this encounter Visit Diagnoses Diagnosis Quadriceps tendon rupture- Primary Sprain and strain of other specified sites of knee and leg documented in this encounter Care Teams Bi Consultant Relationship Specialty Start Date End Date Marques Martinez MD [address] [place] [address] PCP - General 04/01/10 04/08/11 documented as of this encounter
--- OUTSIDE RECORDS SUMMARY | 2023-12-08 08:22 | XMS_ITS | Encounter Summary ---
[place] [address] Care Team Providers Care Access Rep Name Role Phone Donny Cooper MD Primary Care Provider [phone] Encounter Details Date Type Department Care Team (Late st Contact Info) Description 06/14/2020 Telephone Cardiology at [address] [address] Nhung Briggs Social History Tobacco Use Types [...] He would like to be seen at [facility]. Email sent to Brittaney Hernandez at [facility] asking her to reach out to pt to set up the appt with either Dr. Arguelles or [facility] Albert. Nhung Allen Electrophysiology Scheduling [id number] option 2 documented in this encounter Plan of Treatment Upcoming Encounters Date Type Department Care Team (Late st Contact Info) Description 02/02/2024 10:00 AM EDT Hospital Encounter Non-Invasive [place] [address] Arrived documented as of this encounter Visit Diagnoses Not on filedocumented in this encounter Care Teams Access Rep Relationship Specialty Start Date End Date Donny Cooper MD [address] [place] [address] PCP - General Family Medicine 02/25/19 documented as of this encounter
--- OUTSIDE RECORDS SUMMARY | 2023-12-08 08:22 | XMS_ITS | Encounter Summary ---
[place] [address] Care Team Providers Care Wire Brush Maker Name Role Phone Donny Cooper MD Primary Care Provider [phone] Encounter Details Date Type Department Care Team (Latest Contact Info) Description 10/05/2022 10:00 AM EDT - 10/05/2022 11:59 PM EDT Hospital Encounter Non-Invasive [place] [address] Discharge Disposition: Home Social History Tobacco Use [...] AM EDT Hospital Encounter Non-Invasive [place] [address] Arrived documented as of this encounter Procedures [...] on filedocumented in this encounter Care Teams Wire Brush Maker Relationship Specialty Start Date End Date Donny Cooper MD [address] [place] [address] PCP - General Family Medicine 02/25/19 documented as of this encounter
--- OUTSIDE RECORDS SUMMARY | 2023-12-08 08:22 | XMS_ITS | Encounter Summary ---
Author Organization [facility] [place] [address] Care Team Providers Care Tenterer Name Role Phone Donny Cooper MD Primary Care Provider [phone] [phone] Encounter Details Date Type Department Care Team (Latest Contact Info) Description 12/18/2020 11:57 AM EDT - 12/18/2020 11:59 PM EDT Hospital Encounter [place] [address] Maged Arguelles MD [facility] [place] [address] Cardiomyopathy, primary Discharge Disposition: Home Social History [...] AM EDT Hospital Encounter [place] [address] Arrived documented as of this encounter Procedures Procedure Name Priority Date/Time Associated Diagnosis Comments ICD INTERROGATION 3 MONTH Routine 12/18/2020 12:00 PM EDT Cardiomyopathy, primary documented in this encounter Results * ICD INTERROGATION 3 MONTH (12/18/2020 12:00 PM EDT) Anatomical Region Laterality Modality Other Narrative 12/23/2020 11:08 PM EDT MDT PEDIATRIC OCCUPATIONAL THERAPIST-D remote reviewed. Normal device function. Inadequate PEDIATRIC OCCUPATIONAL THERAPIST at 80%. Maged Arguelles MD [facility] Cardiac Electrophysiology 12/23/2020 11:06 PM Maged Arguelles MD IMPLANTABLE CARDIAC DEVICE documented in this encounter Visit Diagnoses Diagnosis Cardiomyopathy, primary Other primary cardiomyopathies documented in this encounter Care Teams Tenterer Relationship Specialty Start Date End Date Donny Cooper MD [address] [facility] [address] [place] [address] PCP - General Family Medicine 02/25/19 documented as of this encounter
--- OUTSIDE RECORDS SUMMARY | 2023-12-08 08:22 | XMS_ITS | Encounter Summary ---
[place] [address] Care Team Providers Care Wire Walker Name Role Phone Donny Cooper MD Primary Care Provider [phone] Encounter Details Date Type Department Care Team (Latest Contact Info) Description 04/03/2023 10:00 AM EST - 04/03/2023 11:59 PM [facility] Hospital Encounter [place] [address] Discharge Disposition: Home Social History Tobacco Use [...] AM EDT Hospital Encounter [place] [address] Arrived documented as of this [...] filedocumented in this encounter Care Teams Wire Walker Relationship Specialty Start Date End Date Donny Cooper MD [address] [place] [address] PCP - General Family Medicine 02/25/19 documented as of this encounter
--- OUTSIDE RECORDS SUMMARY | 2023-12-08 08:22 | XMS_ITS | Encounter Summary ---
Author Organization [facility] [place] [address] Care Team Providers Care Crossing Watchman Name Role Phone Donny Cooper MD Primary Care Provider [phone] Encounter Details Date Type Department Care Team (Latest Contact Info) Description 06/25/2021 3:23 PM EST - 06/25/2021 11:59 PM EST Hospital Encounter [place] [address] Alber Seals MD [facility] [place] [place] [address] Cardiomyopathy, primary Discharge Disposition: Home Social History [...] AM EDT Hospital Encounter Non[place] [address] Arrived documented as of this encounter Procedures Procedure Name Priority Date/Time Associated Diagnosis Comments ICD INTERROGATION 3 MONTH Routine 06/25/2021 3:24 PM EST Cardiomyopathy, primary documented in this encounter Results * ICD INTERROGATION 3 MONTH (06/25/2021 3:24 PM EST) Anatomical Region Laterality Modality Other Narrative 06/25/2021 3:42 PM EST Cardiac Device Remote Monitoring Report Summary Medtronic Carelink Device: BUTTON SEWER HAND-D Model: VIVA QUAD Battery: 2.95 v, estimated longevity 2 years 6 months Pacing percentage: 90% BUTTON SEWER HAND paced Events: Presenting rhythm: atrial paced/biventricular paced Frequent PVC's Impression Normal device function Follow Up As per schedule - in-clinic and remote ALBER SEALS MD 06/25/21 Alber Seals MD IMPLANTABLE CARDIAC DEVICE documented in this encounter Visit Diagnoses Diagnosis Cardiomyopathy, primary Other primary cardiomyopathies documented in this encounter Care Teams Crossing Watchman Relationship Specialty Start Date End Date Donny Cooper MD [address] [place] [address] PCP - General Family Medicine 02/25/19 documented as of this encounter
--- OUTSIDE RECORDS SUMMARY | 2023-12-08 08:22 | XMS_ITS | Encounter Summary ---
[facility] [place] [address] Care Team Providers Care Meat Selector Name Role Phone Marques Martinez MD Primary Care Provider Encounter Details Date Type Department Care Team (Late st Contact Info) Description 09/11/2010 Orders [place] [phone] Jairon Fenton MD [facility] DR ORTHOPAEDIC [place] [address] Fracture of patella, left, closed (Primary Dx) [...] AM EDT Hospital Encounter Non-[place] [address] Arrived documented as of this encounter Visit Diagnoses Diagnosis Fracture of patella, left, closed- Primary Closed fracture of patella documented in this encounter Care Teams Meat Selector Relationship Specialty Start Date End Date Marques Martinez MD [address] [place] [address] PCP - General 04/01/10 04/08/11 documented as of this encounter
--- OUTSIDE RECORDS SUMMARY | 2023-12-08 08:22 | XMS_ITS | Encounter Summary ---
[place] [address] Care Team Providers Care Wine Bottle Inspector Name Role Phone Marques Martinez MD Primary Care Provider [phone] Encounter Details Date Type Department Care Team (Late st Contact Info) Description 10/03/2010 Abstract [place] [address] Marina Orosco, JADON Social History Tobacco Use [...] AM EDT Hospital Encounter Non-Invasive [place] [address] Arrived documented as of this encounter Visit Diagnoses Not on filedocumented in this encounter Care Teams Wine Bottle Inspector Relationship Specialty Start Date End Date Marques Martinez MD [address] [place] [address] PCP - General 04/01/10 04/08/11 documented as of this encounter
--- OUTSIDE RECORDS SUMMARY | 2023-12-08 08:22 | XMS_ITS | Encounter Summary ---
Author Organization [facility] [place] [address] Care Team Providers Care Light Armored Vehicle Officer Name Role Phone Donny Cooper MD Primary Care Provider [phone] [phone] Encounter Details Date Type Department Care Team (Late st Contact Info) Description 07/26/2019 Notes Only Cardiology at [address] [address] Maged Arguelles MD [facility] [place] [address] Social History Tobacco Use Types Packs/Day Years [...] his Medtronic biventricular ICD is reviewed. Suboptimal DISHWASHER PREPARER at 84%. Normal device function. Awaiting Holter to assess PVC burden. Maged Arguelles MD [facility] Cardiac Electrophysiology 07/26/2019 9:04 AM documented in this encounter Plan of Treatment Upcoming Encounters Date Type Department Care Team (Late st Contact Info) Description 02/02/2024 10:00 AM EDT Hospital Encounter Non-Invasive [place] [address] Arrived documented as of this encounter Visit Diagnoses Not on filedocumented in this encounter Care Teams Light Armored Vehicle Officer Relationship Specialty Start Date End Date Donny Cooper MD [address] [place] [address] PCP - General Family Medicine 02/25/19 documented as of this encounter
--- OUTSIDE RECORDS SUMMARY | 2023-12-08 08:22 | XMS_ITS | Encounter Summary ---
[place] [address] Care Team Providers Care Dieing Out Machine Operator Name Role Phone Donny Cooper MD Primary Care Provider [phone] Encounter Details Date Type Department Care Team (Latest Contact Info) Description 08/06/2023 10:00 AM EDT - 08/06/2023 11:59 PM EDT Hospital Encounter [place] [address] Discharge Disposition: Home Social History Tobacco Use [...] AM EDT Hospital Encounter Non-[place] [address] Arrived documented as of this encounter Visit Diagnoses Not on filedocumented in this encounter Care Teams Dieing Out Machine Operator Relationship Specialty Start Date End Date Donny Cooper MD [address] [place] [address] PCP - General Family Medicine 02/25/19 documented as of this encounter
--- OUTSIDE RECORDS SUMMARY | 2023-12-08 08:22 | XMS_ITS | Encounter Summary ---
Author [facility] [place] [address] Care Team Providers Care Forming Department Supervisor Name Role Phone Donny Cooper MD Primary Care Provider [phone] Encounter Details Date Type Department Care Team (Latest Contact Info) Description 10/03/2022 10:00 AM EDT Office Visit Cardiology at [address] [address] Eleno No PA [facility] [place] [address] Cardiomyopathy, primary; Presence of cardiac resynchronization therapy defibrillator (ART PROFESSOR-D); Diaphragmatic stimulation by cardiac pacemaker, initial encounter [...] original note were not included. Cardiac Device ART PROFESSOR-D Programming Evaluation Nabil Iglesias [id number] 10/03/2022 History: Mr. 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 [...] AM EDT Hospital Encounter Non-Invasive [place] [address] Arrived documented as of this encounter Procedures Procedure Name Priority Date/Time Associated Diagnosis Comments EKG 12-LEAD Routine 10/03/2022 11:00 AM EDT Cardiomyopathy, primary Presence of cardiac resynchronization therapy defibrillator (ART PROFESSOR-D) Diaphragmatic stimulation by cardiac pacemaker, initial encounter documented in this encounter Results * EKG 12 Lead (10/03/2022 11:00 AM EDT) Ventricular rate 74 BPM MUSE SYSTEM Atrial Rate 74 BPM MUSE SYSTEM P-R Interval 154 ms MUSE SYSTEM QRS Duration 162 ms MUSE SYSTEM Q-T Interval 470 ms MUSE SYSTEM QTC Calculated (Bezet) 521 ms MUSE SYSTEM Calculated P Waldron 30 degrees MUSE SYSTEM Calculated R Waldron -98 degrees MUSE SYSTEM Calculated T Waldron 41 degrees MUSE SYSTEM INTERPRETATION Atrial-sense d [...] cardiomyopathies Presence of cardiac resynchronization therapy defibrillator (ART PROFESSOR-D) Diaphragmatic stimulation by cardiac pacemaker, initial encounter documented in this encounter Care Teams Forming Department Supervisor Relationship Specialty Start Date End Date Donny Cooper MD [address] [place] [address] PCP - General Family Medicine 02/25/19 documented as of this encounter
--- OUTSIDE RECORDS SUMMARY | 2023-12-08 08:22 | XMS_ITS | Encounter Summary ---
[place] [address] Care Team Providers Care Census Clerk Name Role Phone Donny Cooper MD Primary Care Provider [phone] Encounter Details Date Type Department Care Team (Latest Contact Info) Description 07/02/2023 10:00 AM EST - 07/02/2023 11:59 PM EST Hospital Encounter Non[place] [address] Discharge Disposition: Home Social History Tobacco Use [...] AM EDT Hospital Encounter Non-[place] [address] Arrived documented as of this encounter Visit Diagnoses Not on filedocumented in this encounter Care Teams Census Clerk Relationship Specialty Start Date End Date Donny Cooper MD [address] [place] [address] PCP - General Family Medicine 02/25/19 documented as of this encounter
--- OUTSIDE RECORDS SUMMARY | 2023-12-08 08:22 | XMS_ITS | Encounter Summary ---
Author Organization [facility] [place] [address] Care Team Providers Care Gas Meter Installer Helper Name Role Phone Marques Martinez MD Primary Care Provider [phone] Encounter Details Date Type Department Care Team (Late st Contact Info) Description 03/30/2010 [place] [address] Javier Barajas MD [facility] [place] [address] Social History Tobacco Use Types Packs/Day Years [...] AM EDT Hospital Encounter Non-[place] [address] Arrived documented as of this encounter Procedures [...] EST BUN STAT 03/30/2010 2:50 PM EST GLUCOSE STAT 03/30/2010 2:50 PM EST ELECTROLYTES PANEL [...] 103 98 - 107 mmol/L CERNER MILLENNIUM Carbon Dioxide 26 22 - 31 mmol/L CERNER MILLENNIUM Anion Gap 8 5 - 15 mmol/L [facility]ERNER MILLENNIUM Blood specimen (specimen) 04/01/2010 6:09 AM EST 04/01/2010 6:09 AM EST Jairon Fenton MD CHEMISTRY ORDERABLES [facility] * (ABNORMAL) CREATININE, SERUM (04/01/2010 6:09 AM EST) Creatinine 0.67(L) 0.80 - 1.50 mg/dL CERNER MILLENNIUM Est Glomerular Filtration Rate >60 >=60 CERNER MILLENNIUM Comment: The National [...] Fenton MD CHEMISTRY ORDERABLES Performing Organization Address [facility] de Phone Number CERNER CHRISTOSENNIUM * BUN (04/01/2010 6:09 AM EST) Blood Urea Nitrogen 12 10 - 20 mg/dL CERNER MILLENNIUM Blood specimen (specimen) 04/01/2010 6:09 AM EST 04/01/2010 6:09 AM EST Jairon Fenton MD CHEMISTRY ORDERABLES Performing Organization Address [facility] de Phone Number CERNER MILLENNIUM * (ABNORMAL) REFLEX LAB-A-DIFF (04/01/2010 5:47 AM EST) Neutrophil % 73.2(H) 34.0 - 71.0 % CERNER MILLENNIUM Neutrophil Absolute 9.77(H) 1.50 - 6.30 x10(3)/mc L CERNER MILLENNIUM Lymph % 15.8(L) 19.0 - 53.0 % CERNER MILLENNIUM Lymphocytes Abs 2.1 1.0 - 3.6 x10(3)/mc L CERNER MILLENNIUM Monocyte % 10.2 4.0 - 13.0 % CERNER MILLENNIUM Monocyte Abs 1.4(H) 0.2 - 1.0 x10(3)/mc L CERNER MILLENNIUM Eos % 0.2 0.0 - 7.0 % CERNER MILLENNIUM Eosinophils Abs 0.0 0.0 - 0.5 x10(3)/mc L CERNER MILLENNIUM Basophil % 0.2 0.0 - 2.0 % CERNER MILLENNIUM Baso Absolute 0.0 0.0 - 0.2 x10(3)/mc L CERNER MILLENNIUM Immature Gran % 0.40 0.00 - 0.66 % CERNER MILLENNIUM Comment: Immature granulocytes(IG's)percentage and absolute count will include metamyelocytes, myelocytes, and promyelocytes. Blood smears from CBC's yielding IG's will be scanned manually for concordance. If this scan disagrees with the automated IG or if promyelocytes are noted, a manual differential will be performed. Immature Gran Absolute 0.05 0.00 - 0.05 x10(3)/mc L CERNER MILLENNIUM Blood specimen (specimen) 04/01/2010 5:47 AM EST 04/01/2010 6:06 AM EST Jairon Fenton MD HEMATOLOGY ORDERABLE S CERNER MILLENNIUM * (ABNORMAL) CBC (04/01/2010 5:47 AM EST) White Blood Cell 13.3(H) 4.0 - 10.0 x10(3)/mc L CERNER MILLENNIUM Red Blood Cell 3.88(L) 4.63 - 6.08 x10(6)/mc L CERNER MILLENNIUM Hemoglobin 12.1(L) 13.7 - 17.5 gm/dL CERNER MILLENNIUM Hematocrit 36.7(L) 40.0 - 51.0 % CERNER MILLENNIUM Mean Cell Volume 94.6(H) 79.0 - 92.0 fL CERNER MILLENNIUM Mean Cell Hemoglobin 31.2 25.6 - 32.2 pg CERNER MILLENNIUM Mean Cell Hemoglobin Concentration 33.0 32.0 - 36.5 gm/dL CERNER MILLENNIUM Platelet 201 145 - 370 x10(3)/mc L CERNER MILLENNIUM RDW Standard Deviation 46.4(H) 35.0 - 46.0 fL CERNER MILLENNIUM RDW coefficient of variation 13.5 10.9 - 14.4 % CERNER MILLENNIUM Mean Platelet Volume 10.5 9.0 - 12.0 fL CERNER MILLENNIUM Blood specimen (specimen) 04/01/2010 5:47 AM EST 04/01/2010 6:06 AM EST Jairon Fenton MD HEMATOLOGY ORDERABLE S Performing Organization Address [facility] de Phone Number CERNER MILLENNIUM * HEPATIC FUNCTION PANEL (03/30/2010 6:05 PM EST) Protein, Total 7.2 6.4 - 8.3 gm/dL CERNER MILLENNIUM Albumin 4.3 3.2 - 5.2 gm/dL CERNER MILLENNIUM Aspartate Aminotransferase 19 0 - 39 unit/L CERNER MILLENNIUM Alanine Aminotransferase 21 0 - 55 unit/L CERNER MILLENNIUM Alkaline Phosphatase 77 40 - 120 unit/L CERNER MILLENNIUM Bilirubin, Total 0.6 0.2 - 1.3 mg/dL CERNER MILLENNIUM Bilirubin, Direct 0.1 0.0 - 0.3 mg/dL CERNER MILLENNIUM Blood specimen (specimen) 03/30/2010 6:05 PM EST 03/30/2010 6:13 PM EST Jairon Fenton MD CHEMISTRY ORDERABLES Performing Organization Address [facility] Phone Number CERIVIS MILLENNIUM * ELECTROLYTE PANEL (03/30/2010 6:05 PM EST) Pathologist [facility] Sodium 135 135 - 145 mmol/L CERNER MILLENNIUM Potassium 3.9 3.5 - 5.0 mmol/L CERNER MILLENNIUM Comment: Please note: ??Patients with WBC >100,000 may have falsely elevated Potassium levels. ??For accurate Potassium quantification in these patients send serum separator tube (gold top) for subsequent determinations. ??Contact the Clinical Chemistry Laboratory if there are any questions. Chloride 100 98 - 107 mmol/L CERNER MILLENNIUM Carbon Dioxide 24 22 - 31 mmol/L CERNER MILLENNIUM Anion Gap 11 5 - 15 mmol/L CERNER MILLENNIUM Blood specimen (specimen) 03/30/2010 6:05 PM EST 03/30/2010 6:13 PM EST Jairon Fenton MD CHEMISTRY ORDERABLES Performing Organization Address [facility] Co de Phone Number CERIVIS MILLENNIUM * CREATININE, SERUM (03/30/2010 6:05 PM EST) Creatinine 0.87 0.80 - 1.50 mg/dL [facility] Est Glomerular Filtration Rate >60 >=60 [facility] Comment: The National Kidney Disease [...] PM EST Jairon Fenton MD CHEMISTRY ORDERABLES DEJA SEGOVIA * BUN (03/30/2010 6:05 PM EST) Blood Urea Nitrogen 18 10 - 20 mg/dL [facility] Blood specimen (specimen) 03/30/2010 6:05 PM EST 03/30/2010 6:13 PM EST Jairon Fenton MD CHEMISTRY ORDERABLES Performing Organization Address [facility] de Phone Number DEJA SEGOVIA * APTT (03/30/2010 6:05 PM EST) Partial Thromboplastin Time 26 25 - 37 sec CERNER CHRISTOSENNIUM Comment: Recommended therapeutic PTT range for full dose unfractionated heparin is 80-114 seconds. Blood specimen (specimen) 03/30/2010 6:05 PM EST 03/30/2010 6:14 PM EST Jairon Fenton MD HEMATOLOGY ORDERABLE S Performing Organization Address [facility] Phone Number DEJA SEGOVIA * PROTIME-INR (03/30/2010 6:05 PM EST) Prothrombin Time 14.2 12.3 - 14.7 sec [facility] Comment: [facility] Transfusion Committee Guidelines: INR less than 2.0, PTT less than OR equal to 43.5 seconds, or Fibrinogen greater than or equal to 100 mg/dl indicate adequate procoagulant activity for hemostasis in patients without underlying bleeding disorders. International Normalization Ratio 1.1 0.9 - 1.1 [facility] Blood specimen (specimen) 03/30/2010 6:05 PM EST 03/30/2010 6:14 PM EST Jairon Fenton MD HEMATOLOGY ORDERABLE S Performing Organization Address [facility] de Phone Number DEJA SEGOVIA * (ABNORMAL) REFLEX LAB-A-DIFF (03/30/2010 6:05 PM EST) Neutrophil % 69.6 34.0 - 71.0 % CERNER MILLENNIUM Neutrophil Absolute 8.85(H) 1.50 - 6.30 x10(3)/mc L CERNER MILLENNIUM Lymph % 23.9 19.0 - 53.0 % CERNER MILLENNIUM Lymphocytes Abs 3.0 1.0 - 3.6 x10(3)/mc L CERNER MILLENNIUM Monocyte % 5.8 4.0 - 13.0 % CERNER MILLENNIUM Monocyte Abs 0.7 0.2 - 1.0 x10(3)/mc L CERNER MILLENNIUM Eos % 0.2 0.0 - 7.0 % CERNER MILLENNIUM Eosinophils Abs 0.0 0.0 - 0.5 x10(3)/mc L CERNER MILLENNIUM Basophil % 0.3 0.0 - 2.0 % CERNER MILLENNIUM Baso Absolute 0.0 0.0 - 0.2 x10(3)/mc L CERNER MILLENNIUM Immature Gran % 0.20 0.00 - 0.66 % CERNER MILLENNIUM Comment: Immature granulocytes(IG's)percentage and absolute count will include metamyelocytes, myelocytes, and promyelocytes. Blood smears from CBC's yielding IG's will be scanned manually for concordance. If this scan disagrees with the automated IG or if promyelocytes are noted, a manual differential will be performed. Immature Gran Absolute 0.02 0.00 - 0.05 x10(3)/mc L CERNER MILLENNIUM Blood specimen (specimen) 03/30/2010 6:05 PM EST 03/30/2010 6:13 PM EST Jairon Fenton MD HEMATOLOGY ORDERABLE S CERIVIS SHERENNIUM * (ABNORMAL) CBC (03/30/2010 6:05 PM EST) White Blood Cell 12.7(H) 4.0 - 10.0 x10(3)/mc L CERNER MILLENNIUM Red Blood Cell 4.57(L) 4.63 - 6.08 x10(6)/mc L CERNER MILLENNIUM Hemoglobin 14.1 13.7 - 17.5 gm/dL CERNER MILLENNIUM Hematocrit 42.4 40.0 - 51.0 % CERNER MILLENNIUM Mean Cell Volume 92.8(H) 79.0 - 92.0 fL CERNER MILLENNIUM Mean Cell Hemoglobin 30.9 25.6 - 32.2 pg CERNER MILLENNIUM Mean Cell Hemoglobin Concentration 33.3 32.0 - 36.5 gm/dL CERNER MILLENNIUM Platelet 230 145 - 370 x10(3)/mc L CERNER MILLENNIUM RDW Standard Deviation 44.2 35.0 - 46.0 fL [facility] RDW coefficient of variation 13.1 10.9 - 14.4 % [facility] Mean Platelet Volume 10.6 9.0 - 12.0 fL [facility] Blood specimen (specimen) 03/30/2010 6:05 PM EST 03/30/2010 6:13 PM EST Jairon Fenton MD HEMATOLOGY ORDERABLE S Performing Organization Address [facility] Co de Phone Number [facility] * REFLEX LAB-ANTIBODY SCREEN (03/30/2010 3:17 PM EST) [facility] Ab Screen Interp Negative [facility] Expires at [id number] on: [id number] [facility] Blood specimen (specimen) 03/30/2010 3:17 PM EST 03/30/2010 3:17 PM EST Javier Barajas MD BLOOD BANK LAB ORDER PRECIOUS Performing Organization Address [facility] Co de Phone Number [facility] * REFLEX LAB-ABO/RH (03/30/2010 3:17 PM EST) [facility] ABORH Type A Pos [facility] Blood specimen (specimen) 03/30/2010 3:17 PM EST 03/30/2010 3:17 PM EST Javier Barajas MD BLOOD BANK LAB ORDER PRECIOUS Performing Organization Address [facility] Co de Phone Number [facility] * ELECTROLYTE PANEL (03/30/2010 2:50 PM EST) [facility] Sodium 135 135 - 145 mmol/L [facility] Potassium 4.3 3.5 - 5.0 mmol/L [facility] Comment: Please note: ??Patients with WBC >100,000 may have falsely elevated Potassium levels. ??For accurate Potassium quantification in these patients send serum separator tube (gold top) for subsequent determinations. ??Contact the Clinical Chemistry Laboratory if there are any questions. Chloride 100 98 - 107 mmol/L CERNER MILLENNIUM Carbon Dioxide 26 22 - 31 mmol/L CERNER MILLENNIUM Anion Gap 9 5 - 15 mmol/L CERNER MILLENNIUM Blood specimen (specimen) 03/30/2010 2:50 PM EST 03/30/2010 3:05 PM EST Javier Barajas MD CHEMISTRY ORDERABLES [facility]ERIVIS SHERENNIUM * CREATININE, SERUM (03/30/2010 2:50 PM EST) Creatinine 0.85 0.80 - 1.50 mg/dL CERNER MILLENNIUM Est Glomerular Filtration Rate >60 >=60 CERNER MILLENNIUM Comment: The National [...] Barajas MD CHEMISTRY ORDERABLES Performing Organization Address [facility] Phone Number [facility] * BUN (03/30/2010 2:50 PM EST) Blood Urea Nitrogen 18 10 - 20 mg/dL [facility] Blood specimen (specimen) 03/30/2010 2:50 PM EST 03/30/2010 3:05 PM EST Javier Barajas MD CHEMISTRY ORDERABLES Performing Organization Address [facility] Phone Number [facility] * GLUCOSE, RANDOM (03/30/2010 2:50 PM EST) Glucose 95 <=199 mg/dL [facility] Comment:Diabetes: >=200 mg/d L plus symptoms Blood specimen (specimen) 03/30/2010 2:50 PM EST 03/30/2010 3:05 PM EST Javier Barajas MD CHEMISTRY ORDERABLES Performing Organization Address [facility] Phone Number [facility] * APTT (03/30/2010 2:50 PM EST) Partial Thromboplastin Time 25 25 - 37 sec [facility] Comment: Recommended therapeutic PTT range for full dose unfractionated heparin is 80-114 seconds. Blood specimen (specimen) 03/30/2010 2:50 PM EST 03/30/2010 3:06 PM EST Javier Barajas MD HEMATOLOGY ORDERABLE S Performing Organization Address [facility] Phone Number [facility] * PROTIME-INR (03/30/2010 2:50 PM EST) Prothrombin Time 14.1 12.3 - 14.7 sec [facility] Comment: [facility] Transfusion Committee Guidelines: INR less than 2.0, PTT less than OR equal to 43.5 seconds, or Fibrinogen greater than or equal to 100 mg/dl indicate adequate procoagulant activity for hemostasis in patients without underlying bleeding disorders. International Normalization Ratio 1.1 0.9 - 1.1 CERNER MILLENNIUM Blood specimen (specimen) 03/30/2010 2:50 PM EST 03/30/2010 3:06 PM EST Javier Barajas MD HEMATOLOGY ORDERABLE S CERNER CHRISTOSENNIUM * (ABNORMAL) REFLEX LAB-A-DIFF (03/30/2010 2:50 PM EST) Neutrophil % 82.5(H) 34.0 - 71.0 % CERNER MILLENNIUM Neutrophil Absolute 12.60(H) 1.50 - 6.30 x10(3)/mc L CERNER MILLENNIUM Lymph % 12.2(L) 19.0 - 53.0 % CERNER MILLENNIUM Lymphocytes Abs 1.9 1.0 - 3.6 x10(3)/mc L CERNER MILLENNIUM Monocyte % 4.6 4.0 - 13.0 % CERNER MILLENNIUM Monocyte Abs 0.7 0.2 - 1.0 x10(3)/mc L CERNER MILLENNIUM Eos % 0.1 0.0 - 7.0 % CERNER MILLENNIUM Eosinophils Abs 0.0 0.0 - 0.5 x10(3)/mc L CERNER MILLENNIUM Basophil % 0.3 0.0 - 2.0 % CERNER MILLENNIUM Baso Absolute 0.0 0.0 - 0.2 x10(3)/mc L CERNER MILLENNIUM Immature Gran % 0.30 0.00 - 0.66 % [facility]ERNER MILLENNIUM Comment: Immature granulocytes(IG's)percentage and absolute count will include metamyelocytes, myelocytes, and promyelocytes. Blood smears from CBC's yielding IG's will be scanned manually for concordance. If this scan disagrees with the automated IG or if promyelocytes are noted, a manual differential will be performed. Immature Gran Absolute 0.04 0.00 - 0.05 x10(3)/mc L CERNER MILLENNIUM Blood specimen (specimen) 03/30/2010 2:50 PM EST 03/30/2010 3:06 PM EST Javier Barajas MD HEMATOLOGY ORDERABLE S CERIVIS SHERENNIUM * (ABNORMAL) CBC (03/30/2010 2:50 PM EST) White Blood Cell 15.3(H) 4.0 - 10.0 x10(3)/mc L CERNER MILLENNIUM Red Blood Cell 4.59(L) 4.63 - 6.08 x10(6)/mc L CERNER MILLENNIUM Hemoglobin 14.6 13.7 - 17.5 gm/dL CERNER MILLENNIUM Hematocrit 42.6 40.0 - 51.0 % CERNER MILLENNIUM Mean Cell Volume 92.8(H) 79.0 - 92.0 fL CERNER MILLENNIUM Mean Cell Hemoglobin 31.8 25.6 - 32.2 pg CERNER MILLENNIUM Mean Cell Hemoglobin Concentration 34.3 32.0 - 36.5 gm/dL CERNER MILLENNIUM Platelet 232 145 - 370 x10(3)/mc L CERNER MILLENNIUM RDW Standard Deviation 44.0 35.0 - 46.0 fL CERNER MILLENNIUM RDW coefficient of variation 13.0 10.9 - 14.4 % CERNER MILLENNIUM Mean Platelet Volume 10.4 9.0 - 12.0 fL [facility]ERNER MILLENNIUM Blood specimen (specimen) 03/30/2010 2:50 PM EST 03/30/2010 3:06 PM EST Javier Barajas MD HEMATOLOGY ORDERABLE S DEJA SEGOVIA documented in this encounter Visit Diagnoses Not on filedocumented in this encounter Care Teams Gas Meter Installer Helper Relationship Specialty Start Date End Date Marques Martinez MD [address] [place] [address] PCP - General 04/01/10 04/08/11 documented as of this encounter
--- OUTSIDE RECORDS SUMMARY | 2023-12-08 08:22 | XMS_ITS | Encounter Summary ---
[place] [address] Care Team Providers Care Headline Writer Name Role Phone Marques Martinez MD Primary Care Provider [phone] Encounter Details Date Type Department Care Team (Late st Contact Info) Description 06/12/2010 2:00 PM EST Procedure visit [place] [address] Social History Tobacco Use Types Packs/Day Years [...] EDT Hospital Encounter Non-Invasive [place] [address] Arrived documented as of this encounter Visit Diagnoses Not on filedocumented in this encounter Care Teams Headline Writer Relationship Specialty Start Date End Date Marques Martinez MD [address] [place] [id number] PCP - General 04/01/10 04/08/11 documented as of this encounter
--- OUTSIDE RECORDS SUMMARY | 2023-12-08 08:22 | XMS_ITS | Encounter Summary ---
[place] [address] Care Team Providers Care Narcotics And/Or Vice Detective Name Role Phone Donny Cooper MD Primary Care Provider [phone] Encounter Details Date Type Department Care Team [...] AM EDT Hospital Encounter Non-Invasive [place] [address] Arrived documented as of this encounter Visit Diagnoses Not on filedocumented in this encounter Care Teams Narcotics And/Or Vice Detective Relationship Specialty Start Date End Date Donny Cooper MD [address] [place] [address] PCP - General Family Medicine 02/25/19 documented as of this encounter
--- OUTSIDE RECORDS SUMMARY | 2023-12-08 08:22 | XMS_ITS | Encounter Summary ---
[place] [address] Care Team Providers Care Sports Fitness And Wellness Director Name Role Phone Donny Cooper MD Primary Care Provider [phone] Encounter Details Date Type Department Care Team (Latest Contact Info) Description 04/08/2022 10:00 AM EST - 04/08/2022 11:59 PM [facility] Hospital Encounter [place] [address] Discharge Disposition: Home Social History Tobacco Use [...] AM EDT Hospital Encounter Non-[place] [address] Arrived documented as of this [...] on filedocumented in this encounter Care Teams Sports Fitness And Wellness Director Relationship Specialty Start Date End Date Donny Cooper MD [address] [place] [address] PCP - General Family Medicine 02/25/19 documented as of this encounter
--- OUTSIDE RECORDS SUMMARY | 2023-12-08 08:22 | XMS_ITS | Encounter Summary ---
[place] [address] Care Team Providers Care Production Sound Mixer Name Role Phone Donny Cooper MD Primary Care Provider [phone] Encounter Details Date Type Department Care Team (Latest Contact Info) Description 01/03/2023 10:00 AM EDT - 01/03/2023 11:59 PM EDT Hospital Encounter Non-Invasive [place] [address] Discharge Disposition: Home Social History Tobacco Use [...] AM EDT Hospital Encounter Non-Invasive [place] [address] Arrived documented as of this encounter Procedures [...] on filedocumented in this encounter Care Teams Production Sound Mixer Relationship Specialty Start Date End Date Donny Cooper MD [address] [place] [address] PCP - General Family Medicine 02/25/19 documented as of this encounter
--- OUTSIDE RECORDS SUMMARY | 2023-12-10 10:11 | XMS_ITS | Encounter Summary ---
Author Organization [facility] Address [address] [place] [address] Care Team Providers Care Goods Layer Name Role Phone Unknown, Provider Primary Care Provider [phone] Clem Olvera MD Primary Care Provider [phone] Encounter Details Date Type Department Care Team (Late st Contact Info) Description 11/29/2015 Pre-Procedure Orders Encounter [facility] [address] [place], [place] [id number] Navdeep Hurd MD [address] [place] [address] [address] Social History Tobacco Use Types [...] Patient: Nabil Streeter. Attending: Dr. Moran Scrrajinder Type Mapper: Dr. Fantasma Dhillon History/indication: The patient is [...] Patient: Nabil Streeter Attending: Dr. Dean Bailey Type Mapper: Dr. Fantasma Dhillon History/indication: The patient is [...] on filedocumented in this encounter Care Teams Goods Layer Relationship Specialty Start Date End Date Unknown, Provider, PCP - General 12/06/12 12/17/15 Clem Olvera MD [address] [place] [address] PCP - General 12/18/15 documented as of this encounter
--- OUTSIDE RECORDS SUMMARY | 2023-12-10 10:11 | XMS_ITS | Encounter Summary ---
Author Organization [facility] Address [address] [place] [address] Care Team Providers Care Route Process Administrator Name Role Phone Clem Olvera MD Primary Care Provider [phone] Reason for Referral * (Routine) - Closed Specialty Diagnoses / Procedures Referred By Pedro madera Referred To Contact Beatrice De La Garza NP [address] [place] [phone] Referral ID Status Reason Start Date Expiration Date V isits Requested Visits Authorized [id number] Closed Specialty Services Required 02/27/2016 1 1 Comments You must contact us if we have not contacted you or you have missed your scheduled appointment. If you have any nursing questions, please don't hesitate to call the Cardiac Arrhythmia Service at [facility] at or , extension [phone]. For any scheduling of appointments, please call [phone] or , extension [phone]. . * (Routine) - Closed Specialty Diagnoses / Procedures Referred By Pedro madera Referred To Contact Beatrice De La Garza NP [address] [address] Referral ID Status Reason Start Date Expiration Date V isits Requested Visits Authorized [id number] Closed Specialty Services Required 02/27/2016 1 1 Comments You have a pre existing appointment with Dr. Olvera on March 05 at 2:00, please have Dr. Olvera check your incision at that visit. * (Routine) - Closed Specialty Diagnoses / Procedures Referred By Contbecca t Referred To Contact Beatrice De La Garza NP [address] [address] Referral ID Status Reason Start Date Expiration Date V isits Requested Visits Authorized [id number] Closed Specialty Services Required 02/27/2016 1 1 [...] scheduled at your first appointment. - [facility] Cardiology is located at [address] [facility] in [place] -Clinics are also held in [facility], and [place], [place] and [facility]. If you live in those areas, we will make arrangements for follow-up appointments in one of those clinics.. Encounter Details Date Type Department Care Team (Late st Contact Info) Description 02/27/2016 6:30 EDT - 02/28/2016 13:39 EDT Hospital Encounter [facility] [address] [place] [address] Gulshan Drummond MD PhD [address] [phone] Gulshan Montoya Sa, MD [address] [facility] [address] [place] [phone] AICD lead malfunction, subsequent encounter; ICD [...] around May 2013, when he was in [place], [place]. This triggered major cardiac workup including [...] then underwent a device upgrade to a BODY AND FRAME TECHNICIAN-D device with biventricular pacing for his [...] been followed in cardiology outreach clinic at [facility] in [place]. Continued high pacing threshold on the epicardial [...] and plans to follow up with his [facility] in [place] in 6-8 weeks for which he will arrange once he has arrived in [place]. He has been provided with the implant [...] HGBA1C Discharge Follow Up Appointments Scheduled with [facility] Appointments Outside of [facility] We Will Schedule Studies We Will Schedule Appointments We Recommend but have not been Scheduled Beatrice De La Garza NP 02/27/2016 10:59 Associated attestation - Gulshan Montoya Sa, MD - 02/28/2016 1519 EDT Attending Attestation: I saw and evaluated the patient. I discussed the case with the resident/REGISTERED OCCUPATIONAL THERAPIST/fellow and agree with the findings and plan as documented above. Gulshan bullock Sa, MD Cardiac Electrophysiology documented in this encounter Discharge Instructions * Appointments* Beatrice De La Garza NP - 02/27/2016 11:[address] Olvera on 03/05/16 at 2:00 as previously scheduled for a routine visit and for a check of your incision. Follow up with Giselle Hill NP at the [facility] in May, you will be [...] Notes * Lou Alfonso RN - 02/28/2016 6750 EDT Pt awaiting discharge. IV and tele was removed by primary nurse. This RN administered flu shot and provided flu information sheet. AVS and medications reviewed by RN with patient and . AVS statedcoreg was 3.25mg BID, which pt states no, they must have copied it down wrong. I'm not doing that.We've been through this in [place]. It makes me pass out. RN suggested checking with team, which pt denied and states I wont take it twice a day. He did agree to review this medication with his workers compensation examiner and plans to remain on his home dosing, which was in the morning. He received dose this am. Ptleft via wheelchair with . * Beatrice Rodriguez - 02/28/2016 1329 EDT Brief visit with patient and as they were being discharged. Patient states he is independent in self care and home management. He feels well supported by friends and neighbors. Patient has Medicare and [facility]. [facility]. No needs identified at time of discharge. will provide transportation. Beatrice Rodriguez RN Case Manager #[phone] documented in this encounter H&P Notes * [...] around May 2013, when he was in [place], [place]. This triggered major cardiac workup including [...] point, his device was upgraded to a BODY AND FRAME TECHNICIAN-D device with biventricular pacing. By the [...] been followed in cardiology outreach clinic at [facility] in [place]. Continued high pacing threshold on the epicardial LV lead has caused a very rapid battery depletion. Dr. David Adams in [place] recommended against lead extraction and reimplant as [...] insertion 2002 2013 second pacemaker [facility] Social History Family History Social History Substance Use Topics ??? Smoking status: Former Smoker Years: 35.00 Quit date: 1989 ??? Smokeless tobacco: Not on file ??? Alcohol use 6.6 oz/week 6 Cans of beer, 5 Glasses of wine per week , lives with , retired. Spends leong in [place]. Spends the chery in [place], [place]. Quit smoking in 1990. Has 2 [...] point, his device was upgraded to a BODY AND FRAME TECHNICIAN-D device with biventricular pacing with a [...] EST) 03/12/2016 12:4 3 EST Scan 2 Stepdown Nurse PROCEDURE/MINOR JUDD GICAL ORDERABLES * ECG REPORT - SCANNED (03/04/2016 14:06 EDT) 03/04/2016 14:0 6 EDT Scan 2 Stepdown Nurse PROCEDURE/MINOR JUDD GICAL ORDERABLES * ECG REPORT - SCANNED (03/04/2016 14:06 EDT) 03/04/2016 14:0 6 EDT Scan 2 Stepdown Nurse PROCEDURE/MINOR JUDD GICAL ORDERABLES * IMPLANT RECORD - SCANNED (03/04/2016 14:06 EDT) 03/04/2016 14:0 6 EDT Scan 2 Stepdown Nurse PROCEDURE/MINOR JUDD GICAL ORDERABLES * ECG REPORT - SCANNED (03/01/2016 8:58 EDT) 03/01/2016 8:58 EDT Scan 2 Stepdown Nurse PROCEDURE/MINOR JUDD GICAL ORDERABLES * ECG REPORT - SCANNED (03/01/2016 8:58 EDT) 03/01/2016 8:58 EDT Scan 2 Stepdown Nurse PROCEDURE/MINOR JUDD GICAL ORDERABLES * CHEST PA [...] IMAGING ORDERABLES * HEMAGRAM (02/28/2016 5:44 EDT) [facility] WBC 9.84 4.0 - 10.4 K/cmm 02/28/2016 6:26 EDT [facility] RBC 4.42 4.36 - 5.78 M/cmm 02/28/2016 6:26 T [facility] Hemoglobin 14.2 13.8 - 17.3 gm/dl 02/28/2016 6:26 [facility] HCT 40.9 39.5 - 50.2 % 02/28/2016 6:26 [facility] MCV 93 81 - 95 fl 02/28/2016 6:26 [facility] MCH 32.1 27.6 - 33.0 pg 02/28/2016 6:26 [facility] MCHC 34.7 32.8 - 36.4 gm/dl 02/28/2016 6:26 [facility] RDW-CV 13.1 11.8 - 14.1 % 02/28/2016 6:26 [facility] RDW-SD 44.6 36.5 - 45.9 fl 02/28/2016 6:26 [facility] PLT 151 141 - 377 K/cmm 02/28/2016 6:26 [facility] MPV 11.2 9.5 - 12.7 fl 02/28/2016 6:26 [facility] Blood specimen (specimen) BLOOD SPECIMEN / Unknown 02/28/2016 5:44 EDT 02/28/2016 6:13 EDT Beatrice De La Garza NP HEMATOLOGY & PF4 ORDERABLES [facility] [address] [place] [address] * (ABNORMAL) CREATININE (02/28/2016 5:44 EDT) Creatinine 0.65(L) 0.66 - 1.25 mg/dl 02/28/2016 6:48 EDT [facility] GFR, Calculated 95 >60 ml/min/1.7 3m2 02/28/2016 6:48 EDT [facility] Comment: eGFR calculated using CKD-EPI equation for non Americans. Multiply eGFR by 1.16 for Americans. Blood specimen (specimen) BLOOD SPECIMEN / Unknown 02/28/2016 5:44 EDT 02/28/2016 6:13 EDT Beatrice De La Garza NP CHEMISTRY & B LOOD GAS ORDERABLES Performing Organization Address [facility]/ZIP Co de Phone Number [facility] [address] [place] [address] * BUN (02/28/2016 5:44 EDT) BUN 14 10 - 26 mg/dl 02/28/2016 6:48 EDT [facility] Blood specimen (specimen) BLOOD SPECIMEN / Unknown 02/28/2016 5:44 EDT 02/28/2016 6:13 EDT Beatrice De La Garza REGISTERED OCCUPATIONAL THERAPIST CHEMISTRY & B LOOD GAS ORDERABLES Performing Organization Address [facility] Co de Phone Number [facility] [address] [place] [address] * ELECTROLYTES (02/28/2016 5:44 EDT) Sodium 138 136 - 145 mEq/L 02/28/2016 6:48 EDT [facility] Potassium 4.7 3.5 - 5.0 mEq/L 02/28/2016 6:48 EDT [facility] Chloride 104 96 - 110 mEq/L 02/28/2016 6:48 EDT [facility] CO2 25 22 - 32 mEq/L 02/28/2016 6:48 EDT [facility] Comment:Note new reference r hong 02/19/16 Blood specimen (specimen) BLOOD SPECIMEN / Unknown 02/28/2016 5:44 EDT 02/28/2016 6:13 EDT Beatrice De La Garza NP CHEMISTRY & B LOOD GAS ORDERABLES [facility] [address] [place] [address] * PORTABLE CHEST 1 VIEW (02/27/2016 12:46 [...] 12:41 EDT) 02/27/2016 12:4 1 EDT Narrative [facility] EKG - 02/28/2016 8:57 EDT ? [facility] ? Test Date: ?2016-02-27 Pat Name: ? NABIL IGLESIAS ? Department: ?? [facility] [address] ? Room: ? MW514 Gender: ? M ?Herd Tester: ?? [id number] : ?1940 ? Requested By: KAIN REED L Order Number: [id number] ? Reading MD: ?? BRAYAN CUENCA MD ? Measurements Intervals ?[place] ? Rate: ? 63 ? P: ?15 MT: ? 159 ?QRS: ?234 QRSD: ? 156 ?T: ?15 QT: ? 479 ? QTc: ?493 ? Interpretive Statements ELECTRONIC VENTRICULAR PACEMAKER Compared to ECG 02/27/2016 08:10:34 No significant changes I reviewed the tracing and have either agreed or edited the findings in this report. Electronically Signed On 02-28-16 08:57:02 EDT by BRAYAN CUENCA MD. Procedure Note Brayan Cuenca MD - 02/28/2016 [facility] Test Date: 2016-02-27 Pat Name: NABIL IGLESIAS Department: [place] [address] Room: [facility] Gender: M Herd Tester: [id number] : 1940 Requested By: KAIN Gallagher Order Number: [id number] Reading MD: BRAYAN CUENCA MD Measurements Intervals [place] Rate: 63 P: 15 MT: 159 QRS: 234 QRSD: 156 T: 15 QT: 479 QTc: 493 Interpretive Statements ELECTRONIC VENTRICULAR PACEMAKER Compared to ECG 02/27/2016 08:10:34 No significant changes I reviewed the tracing and have either agreed or edited the findings inthis report. Electronically Signed On 02-28-16 08:57:02 EDT by BRAYAN BEEBE. Gulshan Drummond MD PhD CARDIA C ECG ORDERABLES [facility] EKG * PROTIME (02/27/2016 8:45 EDT) Pro Time 12.3 10.3 - 13.1 secs 02/27/2016 9:10 EDT [facility] Comment: New prothrombin t josue range effective 01/29/16 I.N.R. 1.1 0.9 - 1.1 Ratio 02/27/2016 9:10 EDT [facility] Comment: Moderate Intensity Coumadin INR = 2.0-3.0 Adjustments in anticoagulant therapy dose should be based upon the INR and NOT the Pro Time. Blood specimen (specimen) BLOOD SPECIMEN / Unknown 02/27/2016 8:45 EDT 02/27/2016 8:54 EDT Gulshan Drummond MD PhD HEMATO LOGY & PF4 ORDERABLES [facility] [address] [place] [address] * HEMAGRAM (02/27/2016 8:45 EDT) WBC 6.47 4.0 - 10.4 K/cmm 02/27/2016 8:57 EDT [facility] RBC 4.51 4.36 - 5.78 M/cmm 02/27/2016 8:57 EDT [facility] Hemoglobin 14.7 13.8 - 17.3 gm/dl 02/27/2016 8:57 EDT [facility] HCT 41.7 39.5 - 50.2 % 02/27/2016 8:57 EDT [facility] MCV 93 81 - 95 fl 02/27/2016 8:57 EDT [facility] MCH 32.6 27.6 - 33.0 pg 02/27/2016 8:57 EDT [facility] MCHC 35.3 32.8 - 36.4 gm/dl 02/27/2016 8:57 T [facility] RDW-CV 13.1 11.8 - 14.1 % 02/27/2016 8:57 EDT [facility] RDW-SD 44.0 36.5 - 45.9 fl 02/27/2016 8:57 EDT [facility] PLT 176 141 - 377 K/cmm 02/27/2016 8:57 EDT [facility] MPV 10.7 9.5 - 12.7 fl 02/27/2016 8:57 EDT [facility] Blood specimen (specimen) BLOOD SPECIMEN / Unknown 02/27/2016 8:45 EDT 02/27/2016 8:54 EDT Gulshan Drummond MD PhD HEMATO LOGY & PF4 ORDERABLES [facility] [address] [place] [address] * ELECTROLYTES (02/27/2016 8:45 EDT) Sodium 142 136 - 145 mEq/L 02/27/2016 9:13 EDT [facility] Potassium 4.7 3.5 - 5.0 mEq/L 02/27/2016 9:13 EDT [facility] Chloride 103 96 - 110 mEq/L 02/27/2016 9:13 EDT [facility] CO2 27 22 - 32 mEq/L 02/27/2016 9:13 EDT [facility] Comment:Note new reference r hong 02/19/16 Blood specimen (specimen) BLOOD SPECIMEN / Unknown 02/27/2016 8:45 EDT 02/27/2016 8:54 EDT Gulshan Drummond MD PhD CHEMIS TRY & BLOOD GAS ORDERABLES Performing Organization Address [facility] de Phone Number [facility] [address] [place] [address] * CREATININE (02/27/2016 8:45 EDT) Creatinine 0.69 0.66 - 1.25 mg/dl 02/27/2016 9:13 EDT [facility] GFR, Calculated 93 >60 ml/min/1.7 3m2 02/27/2016 9:13 EDT [facility] Comment: eGFR calculated using CKD-EPI equation for non Americans. Multiply eGFR by 1.16 for Americans. Blood specimen (specimen) BLOOD SPECIMEN / Unknown 02/27/2016 8:45 EDT 02/27/2016 8:54 EDT Gulshan Drummond MD PhD CHEMIS TRY & BLOOD GAS ORDERABLES Performing Organization Address City/[facility] Co de Phone Number [facility] [address] [place] [address] * BUN (02/27/2016 8:45 EDT) BUN 17 10 - 26 mg/dl 02/27/2016 9:13 EDT [facility] Blood specimen (specimen) BLOOD SPECIMEN / Unknown 02/27/2016 8:45 EDT 02/27/2016 8:54 EDT Gulshan Drummond MD PhD CHEMIS TRY & BLOOD GAS ORDERABLES [facility] [address] [place] [address] * EKG 12-LEAD (02/27/2016 8:08 EDT) 02/27/2016 8:08 EDT Narrative [facility] EKG - 02/28/2016 9:01 EDT ? [facility] ? Test Date: ?2016-02-27 Pat Name: ? NABIL IGLESIAS ? Department: ?? PeriopMainC ? Room: ? NX9479 Gender: ? M ?Herd Tester: ?? [id number] : ?1940 ? Requested By: MARCIA Boo Order Number: [id number] ? Julia WRIGHT: ?? BRAYAN CUENCA MD ? Measurements Intervals ?[place] ? Rate: ? 69 ? P: ?147 MT: ? 134 ?QRS: ?-67 QRSD: ? 160 [...] Note Brayan Cuenca MD - 02/28/2016 [facility] Test Date: 2016-02-27 Pat Name: NABIL IGLESIAS Department: [facility] Room: [id number] Gender: M Herd Tester: [id number] : 1940 Requested By: MARCIA Boo Order Number: [id number] Reading MD: BRAYAN CUENCA MD Measurements Intervals [place] Rate: 69 P: 147 MT: 134 QRS: -67 QRSD: 160 T: -59 QT: 434 QTc: 467 Interpretive Statements ELECTRONIC ATRIAL PACEMAKER ELECTRONIC VENTRICULAR PACEMAKER Compared to ECG 02/27/2016 08:08:46 No significant changes I reviewed the tracing and have either agreed or edited the findings inthis report. Electronically Signed On 02-28-16 09:01:04 EDT by BRAYAN BEEBE. Navdeep Hurd MD CARDIAC ECG ORD ERABLES [facility] EKG documented in this encounter Visit [...] Reason: Other - Comment: pt already took APARTMENT MAINTENANCE MANAGER, takes other meds at HS) 921 (Given [...] Reason: Other - Comment: pt already took APARTMENT MAINTENANCE MANAGER, takes other meds at HS)2100 (Given - Provider: Mady Bruno RN) spironolactone (ALDACTONE) tablet 12.5 mg 12.5 mg, oral, DAILY, First dose on Thu02/27/16 at 1245, Until Discontinued, Routine 1306 (Not Given - Provider: Nneka Stuart RN - Reason: Other - Comment: pt already took APARTMENT MAINTENANCE MANAGER, takes other meds at HS)2102 (Given - Provider: Mady Bruno RN) tamsulosin (FLOMAX) capsule 0.4 mg 0.4 mg, oral, DAILY, First dose on Thu02/27/16 at 1245, Until Discontinued, Routine 1306 (Not Given - Provider: Nneka Stuart RN - Reason: Other - Comment: pt already took APARTMENT MAINTENANCE MANAGER, takes other meds at HS) 921 (Given [...] 02/02 documented in this encounter Care Teams Route Process Administrator Relationship Specialty Start Date End Date Clem Olvera MD [address] [place] [address] PCP - General 12/18/15 documented as of this encounter
--- OUTSIDE RECORDS SUMMARY | 2023-12-10 10:11 | XMS_ITS | Encounter Summary ---
Author Organization [facility] Address [address] [place] [address] Care Team Providers Care Case Repairer Name Role Phone Clem Olvera MD Primary Care Provider [phone] Encounter Details Date Type Department Care Team (Latest Contact Info) Description 12/20/2015 10:52 EDT - 12/20/2015 23:52 EDT Hospital Encounter [facility] [address] [place] [address] Navdeep Hurd MD [address] [place] [address] [address] Discharge Disposition: Home or Self [...] no need to beNPO or have a tractor trailer moving van driver. However, his will be accompanying him. They [place] someone to the airport [place] 1000 and then will come here and check-in around 1145. He agrees to have a shower. documented in this encounter Procedure Notes * Fantasma Dhillon MD - 12/20/2015 1356 EDT IR Brief Procedure Note Attending: Leo Interpreter Deaf: Alejo Pre-op Dx: Arrhythmia, need for pacemaker [...] 12/19 documented in this encounter Care Teams Case Repairer Relationship Specialty Start Date End Date Clem Olvera MD [address] [place] [address] PCP - General 12/18/15 documented as of this encounter
--- OUTSIDE RECORDS SUMMARY | 2023-12-10 10:11 | XMS_ITS | Encounter Summary ---
Author Organization [facility] Address [address] [place] [address] Care Team Providers Care Yard Attendant Name Role Phone Unavailable Primary Care Provider Unavailabl e Encounter Details Date Type Department Care Team (Late st Contact Info) Description 12/02/2012 Results Only [facility] Laboratory Services - [facility] ([facility] [address] [place] [id number] Satinder Edwards MD [address] [place] [id number] Social History Tobacco Use Types Packs/Day Years [...] ? NABIL IGLESIAS ? Accession #: ? [id number] ? : ? 1940 (Age: 72) ??M [...] MD PATHOLOGY ORDERABLE S Performing Organization Address City/State/[facility] Co de Phone Number DIVYA BERRY [address] [place] [address] documented in this encounter Visit Diagnoses Not on filedocumented in this encounter
--- OUTSIDE RECORDS SUMMARY | 2023-12-10 10:11 | XMS_ITS | Encounter Summary ---
[place] [address] Care Team Providers Care Hvac Service Manager Name Role Phone Donny Cooper MD Primary Care Provider [phone] Encounter Details Date Type Department Care Team (Latest Contact Info) Description 07/02/2023 10:00 AM EST - 07/02/2023 11:59 PM EST Hospital Encounter [place] [address] Discharge Disposition: Home Social History Tobacco Use [...] AM EDT Hospital Encounter [place] [address] Arrived documented as of this encounter Visit Diagnoses Not on filedocumented in this encounter Care Teams Hvac Service Manager Relationship Specialty Start Date End Date Donny Cooper MD [address] [place] [address] PCP - General Family Medicine 02/25/19 documented as of this encounter
--- OUTSIDE RECORDS SUMMARY | 2023-12-10 10:11 | XMS_ITS | Encounter Summary ---
[place] [address] Care Team Providers Care Small Equipment Operator Name Role Phone Donny Cooper MD Primary Care Provider [phone] Encounter Details Date Type Department Care Team (Latest Contact Info) Description 11/04/2023 10:00 AM EDT - 11/04/2023 11:59 PM EDT Hospital Encounter Non-[place] [address] Discharge Disposition: Home Social History Tobacco Use [...] AM EDT Hospital Encounter Non-[place] [phone] Arrived documented as of this encounter Procedures [...] on filedocumented in this encounter Care Teams Small Equipment Operator Relationship Specialty Start Date End Date Donny Cooper MD [address] [place] [address] PCP - General Family Medicine 02/25/19 documented as of this encounter
--- OUTSIDE RECORDS SUMMARY | 2023-12-10 10:11 | XMS_ITS | Encounter Summary ---
[place] [address] Care Team Providers Care Contracting Executive Name Role Phone Donny Cooper MD Primary Care Provider [phone] Encounter Details Date Type Department Care Team (Latest Contact Info) Description 01/03/2023 10:00 AM EDT - 01/03/2023 11:59 PM EDT Hospital Encounter Non-[place] [address] Discharge Disposition: Home Social History Tobacco Use [...] AM EDT Hospital Encounter Non-[place] [phone] Arrived documented as of this encounter Procedures [...] on filedocumented in this encounter Care Teams Contracting Executive Relationship Specialty Start Date End Date Donny Cooper MD [address] [place] [address] PCP - General Family Medicine 02/25/19 documented as of this encounter
--- OUTSIDE RECORDS SUMMARY | 2023-12-10 10:11 | XMS_ITS | Encounter Summary ---
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 Procedures IMPLANTABLE CARDIAC DEFIBRILLATOR PROCEDURE Navdeep Hurd MD [address] [place], [place] [address] [address] [place] [address] Referral ID Status Reason Start Date Expiration Date Visits Re quested Visits Authorized [id number] Closed 02/13/2016 1 1 Encounter Details Date Type Department Care Team (Latest Contact Info) Description 02/13/2016 Pre-Procedure Orders Encounter [facility] CARDIOLOGY [address] [place], [place] [address] Navdeep Hurd [facility] [address] [facility] [address] [place] [address] ICD (implantable cardioverter-defibril lator) battery [...] 8 EDT Narrative 02/27/2016 15:17 EDT *Cardiology* [address] [place] [address] Lead Revision (Report amended ) Patient: Nabil Iglesias ?Study Date: ?02/27/2016 ? Accession #: ? [id number] : ? 1940 Referring: Clem Olvera Attending: [...] 0.35 glide wire a Nick MENDOZAW 6F ([facility]) 6 mm-40 mm balloon dilation still [...] Venograms were performed in the MOORE and ENGLISH projections and a suitable mid-lateral LV branch [...] fascia. The leads were connected to a REPAIRER HAIRSPRING-D device. Device and Lead detail in table [...] Implanted device: Medtronic - Viva Quad XT REPAIRER HAIRSPRING-D DF4 - Serial number: [id number] Explanted device: Medtronic - Viva XT REPAIRER HAIRSPRING-D DF4 - Serial number: [id number]. LEAD PARAMETERS + + + + + [...] + + + + + Serial number [id number] ? [id number] ?? [id number] ?? [id number] ? + + + + [...] Gulshan Drummond MD - 05/12/2016 *Cardiology* [address] [place] [id number] Lead Revision (Report amended ) Patient: Nabil [...] over an 0.35 glide wire [facility] 6 mm-40 mm balloon dilation still [...] Venograms were performed in the MOORE and ENGLISH projections and a suitable mid-lateral LV branch [...] fascia. The leads were connected to a REPAIRER HAIRSPRING-D device. Device and Lead detail in table [...] Implanted device: Medtronic - Viva Quad XT REPAIRER HAIRSPRING-D DF4 - Serial number: [id number] Explanted device: Medtronic - Viva XT REPAIRER HAIRSPRING-D DF4 - Serial number: [id number]. LEAD PARAMETERS + + + + + + Lead # 1 2 3 4 + + + + + + Chamber RA RV LV LV + + + + + + Date 07/19/2002 07/18/2013 02/27/2016 07/18/2013 implanted + + + + + + Model St. Esa Medtronic Medtronic Enpath information [id number] Attain Epicardial Performa 4298 + + + + + + Serial number [id number] + + + + + + [...] situ documented in this encounter Care Teams Recycling Program Manager Relationship Specialty Start Date End Date Clem Olvera MD [address] [place] [address] PCP - General 12/18/15 documented as of this encounter
--- OUTSIDE RECORDS SUMMARY | 2023-12-10 10:11 | XMS_ITS | Encounter Summary ---
[place] [address] Care Team Providers Care Brazing Furnace Operator Name Role Phone Donny Cooper MD Primary Care Provider [phone] Encounter Details Date Type Department Care Team (Latest Contact Info) Description 04/03/2023 10:00 AM EST - 04/03/2023 11:59 PM [facility] Hospital Encounter [place] [address] Discharge Disposition: Home Social History Tobacco Use [...] AM EDT Hospital Encounter Non[place] [address] Arrived documented as of this [...] on filedocumented in this encounter Care Teams Brazing Furnace Operator Relationship Specialty Start Date End Date Donny Cooper MD [address] [place] [address] PCP - General Family Medicine 02/25/19 documented as of this encounter
--- OUTSIDE RECORDS SUMMARY | 2023-12-10 10:11 | XMS_ITS | Clinical Summary ---
Author Organization [facility] [place] [address] Care Team Providers Care Gold Marker Name Role Phone Donny Cooper MD Primary Care Provider [phone] Allergies No known active allergies Medications Medication [...] PM EDT Hospital Encounter Non-[place] [phone] Discharge Disposition: Home from Last 3 Months [...] AM EDT Hospital Encounter [place] [phone] Arrived Health Maintenance Due Date Last Done Comments Tdap adult 08/19/1959 Tetanus vaccine 08/19/1959 Zoster vaccine (1 of 2) 1990 Advance Directive 08/19/1995 Pneumoccocal Vaccine: 65+ (2 of 2 - PCV) 05/04/2009 05/04/2008 Covid-19 Vaccine ( - 2022- season) 2023 Influenza (Flu) vaccine (1 o f 1 - Influenza standard series) 01/03/2024 02/01/2010, 03/06/2006, 02/24/2005 Medical Devices Implanted Type Area Network Programmer Device Identifier Shelf Expiration Date Model / Serial / Lot Mdt : [id number] : [id number] Implanted: (Quantity not on file) Cardiac Resynchronization Therapy - Defibrillator Chest Medtronic - [id number] / [id number] / Care Teams Gold Marker Relationship Specialty Start Date End Date Donny Cooper MD [address] [place], [place] [address] PCP - General Family Medicine 02/25/19
--- OUTSIDE RECORDS SUMMARY | 2023-12-10 10:11 | XMS_ITS | Encounter Summary ---
[place] [address] Care Team Providers Care Account Resolution Specialist Name Role Phone Donny Cooper MD Primary Care Provider [phone] Encounter Details Date Type Department Care Team (Latest Contact Info) Description 08/06/2023 10:00 AM EDT - 08/06/2023 11:59 PM EDT Hospital Encounter Non[place] [address] Discharge Disposition: Home Social History Tobacco Use [...] AM EDT Hospital Encounter Non[place] [address] Arrived documented as of this encounter Visit Diagnoses Not on filedocumented in this encounter Care Teams Account Resolution Specialist Relationship Specialty Start Date End Date Donny Cooper MD [address] [place] [address] PCP - General Family Medicine 02/25/19 documented as of this encounter
--- OUTSIDE RECORDS SUMMARY | 2023-12-10 10:11 | XMS_ITS | Encounter Summary ---
Author Organization [facility] Address [address] [place] [address] Care Team Providers Care Straight Pin Making Machine Operator Name Role Phone Clem Olvera MD Primary Care Provider Encounter Details Date Type Department Care Team (Late st Contact Info) Description 03/16/2019 Abstract [facility] Cardiology Clinic [address] [place] [address] Ronal Avelar, JADON AV block, 2nd degree [...] Laterality Modality Device Narrative 03/24/2019 10:30 EST [facility] Cardiology Device Visit [employer] Operations: [employer] Device Type: ABRASIVE MIXER HELPER-D Service: Remote ? 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
--- OUTSIDE RECORDS SUMMARY | 2023-12-10 10:11 | XMS_ITS | Encounter Summary ---
Author Organization [facility] Address [address] [place] [address] Care Team Providers Care Strike Operations Officer Name Role Phone Clem Olvera MD Primary Care Provider [phone] Reason for Visit * Reason Onset Date Comments Other 04/04/2019 Transfer request for Pacer [place] [facility] Encounter Details Date Type Department Care Team (Late st Contact Info) Description 04/04/2019 Telephone [facility] Cardiology Clinic [address] [place] [address] Giselle Hill, INVENTORY COORDINATOR Other (Transfer request for Pacer Care at [facility]) Social History Tobacco Use Types Packs/Day Years [...] 04/04/2019 1503 EST I went into the [employer] Website and released pt to [facility] as requested. * Telephone Encounter - Suze Reynoso - 04/04/2019 1342 EST PT WILL BE HAVING HIS PACER CARE DONE AT [facility], PLEASE RELEASE HIS REMOTE MONITORING SO THAT THEY CAN PICK IT UP documented in this encounter Plan of Treatment Not on file documented as of this encounter Visit Diagnoses Not on filedocumented in this encounter Care Teams Strike Operations Officer Relationship Specialty Start Date End Date Clem Olvera MD [address] [place] [address] PCP - General 12/18/15 documented as of this encounter
--- OUTSIDE RECORDS SUMMARY | 2023-12-10 10:11 | XMS_ITS | Encounter Summary ---
Author Organization [facility] Address [address] [place] [address] Care Team Providers Care Operational Assistant Name Role Phone Unavailable Primary Care Provider Unavailabl e Encounter Details Date Type Department Care Team (Late st Contact Info) Description 05/06/2001 Results Only [facility] - Maple conversion [address] [place] [address] Hernandez Partida MD [address] [place] [address] Social History Tobacco Use Types Packs/Day Years [...] is submitted entirely in cassette (B). ??(Naty Caal)/[facility] End of Report [facility] 05/06/2001 05/07/2001 9:2 5 EST Hernandez Partida MD PATHOLOGY ORDERABLES [facility] [address] [place] [address] documented in this encounter Visit Diagnoses Not on filedocumented in this encounter
--- OUTSIDE RECORDS SUMMARY | 2023-12-10 10:11 | XMS_ITS | Clinical Summary ---
Author Organization [facility] Address [address] [place] [address] Care Team Providers Care Industrial Maintenance Repairer Helper Name Role Phone Clem Olvera MD Primary Care Provider [phone] Allergies No known active allergies Medications Medication [...] PACEMAKER INSERTION 05/04/2002 - 05/03/20032013 second pacemaker [facility] Medical History Medical History Date Comments [...] Advance Directives For more information, please contact: [phone] * Full Code (Latest Code Status on File) Date Activated Date Inactivated Comments 02/27/2016 8:49 02/28/2016 15:40 Question Answer Comments Reason for decision includes: Full code consistent with overall plan of care Who participated in the discussion? Not Discusse d Care Teams Industrial Maintenance Repairer Helper Relationship Specialty Start Date End Date Clem Olvera MD [address] [place] [address] PCP - General 12/18/15
--- OUTSIDE RECORDS SUMMARY | 2023-12-10 10:11 | XMS_ITS | Encounter Summary ---
Author Organization [facility] Address [address] [place] [address] Care Team Providers Care Election Watcher Name Role Phone Clem Olvera MD Primary Care Provider [phone] Reason for Visit * Reason Onset Date Comments Appointment Related 10/23/2016 Check for fo llow up of pacer Encounter Details Date Type Department Care Team ([facility] Contact Info) Description 10/23/2016 Telephone [facility] Cardiology - [address] [place] [address] Pacemaker, Pace Appointment Related (Check [...] that Nabil had his pacemaker checked in [place] where they are for the winter. They have some back and are being followed by Dr. Hurd at [facility]. documented in this encounter Plan of Treatment Not on file documented as of this encounter Visit Diagnoses Not on filedocumented in this encounter Care Teams Election Watcher Relationship Specialty Start Date End Date Clem Olvera MD [address] [place] [address] PCP - General 12/18/15 documented as of this encounter
--- OUTSIDE RECORDS SUMMARY | 2023-12-10 10:11 | XMS_ITS | Referral Summary ---
Author Organization [facility] Address [address] [place] [address] Care Team Providers Care Media Theorist And Author Of Name Role Phone Clem Olvera MD Primary Care Provider [phone] Allergies No known active allergies Medications Medication [...] Advance Directives For more information, please contact: [phone] * Full Code (Latest Code Status on File) Date Activated Date Inactivated Comments 02/27/2016 8:49 02/28/2016 15:40 Question Answer Comments Reason for decision includes: Full code consistent with overall plan of care Who participated in the discussion? Not Discusse d Care Teams Media Theorist And Author Of Relationship Specialty Start Date End Date Clem Olvera MD [address] [place] [id number] PCP - General 12/18/15
--- OUTSIDE RECORDS SUMMARY | 2023-12-10 10:12 | XMS_ITS | Encounter Summary ---
Author Organization [facility] [place] [address] Care Team Providers Care Signal Person Name Role Phone Donny Cooper MD Primary Care Provider [phone] Encounter Details Date Type Department Care Team (Latest Contact Info) Description 06/25/2021 3:23 PM EST - 06/25/2021 11:59 PM EST Hospital Encounter Non-[place] [address] Alber Seals MD [facility] [place] [address] Cardiomyopathy, primary Discharge Disposition: Home Social History [...] AM EDT Hospital Encounter Non-[place] [address] Arrived documented as of this encounter Procedures Procedure Name Priority Date/Time Associated Diagnosis Comments ICD INTERROGATION 3 MONTH Routine 06/25/2021 3:24 PM EST Cardiomyopathy, primary documented in this encounter Results * ICD INTERROGATION 3 MONTH (06/25/2021 3:24 PM EST) Anatomical Region Laterality Modality Other Narrative 06/25/2021 3:42 PM EST Cardiac Device Remote Monitoring Report Summary Medtronic Carelink Device: TECHNICIAN AUTOMATIC-D Model: VIVA QUAD Battery: 2.95 v, estimated longevity 2 years 6 months Pacing percentage: 90% TECHNICIAN AUTOMATIC paced Events: Presenting rhythm: atrial paced/biventricular paced Frequent PVC's Impression Normal device function Follow Up As per schedule - in-clinic and remote ALBER SEALS MD 06/25/21 Alber Seals MD IMPLANTABLE CARDIAC DEVICE documented in this encounter Visit Diagnoses Diagnosis Cardiomyopathy, primary Other primary cardiomyopathies documented in this encounter Care Teams Signal Person Relationship Specialty Start Date End Date Donny Cooper MD [address] [place] [address] PCP - General Family Medicine 02/25/19 documented as of this encounter
--- OUTSIDE RECORDS SUMMARY | 2023-12-10 10:12 | XMS_ITS | Encounter Summary ---
[place] [address] Care Team Providers Care Minister Of Religion Name Role Phone Marques Martinez MD Primary Care Provider [phone] Encounter Details Date Type Department Care Team (Late st Contact Info) Description 06/12/2010 2:00 PM EST Procedure visit [place] [address] Social History Tobacco Use Types Packs/Day Years [...] AM EDT Hospital Encounter Non-Invasive [place] [address] Arrived documented as of this encounter Visit Diagnoses Not on filedocumented in this encounter Care Teams Minister Of Religion Relationship Specialty Start Date End Date Marques Martinez MD [address] [place] [address] PCP - General 04/01/10 04/08/11 documented as of this encounter
--- OUTSIDE RECORDS SUMMARY | 2023-12-10 10:12 | XMS_ITS | Encounter Summary ---
[facility] [place] [address] Care Team Providers Care Residential Electrician Name Role Phone Marques Martinez MD Primary Care Provider [phone] Encounter Details Date Type Department Care Team (Late st Contact Info) Description 03/30/2010 [place] [address] Javier Barajas MD [facility] [place] [address] Social History Tobacco Use Types Packs/Day Years [...] AM EDT Hospital Encounter [place] [address] Arrived documented as of this encounter Procedures [...] AM EST Jairon Fenton MD CHEMISTRY ORDERABLES [facility] * (ABNORMAL) CREATININE, SERUM (04/01/2010 6:09 AM [...] Fenton MD CHEMISTRY ORDERABLES Performing Organization Address [facility] de Phone Number CERNER CHRISTOSENNI[facility] * BUN (04/01/2010 6:09 AM EST) Blood Urea Nitrogen 12 10 - 20 mg/dL [facility] Blood specimen (specimen) 04/01/2010 6:09 AM EST 04/01/2010 6:09 AM EST Jairon Fenton MD CHEMISTRY ORDERABLES Performing Organization Address [facility] de Phone Number CERNER MILLENNIUM * (ABNORMAL) [...] MD HEMATOLOGY ORDERABLE S Performing Organization Address [facility] de Phone Number CERNER MILLENNIUM * HEPATIC [...] Fenton MD CHEMISTRY ORDERABLES Performing Organization Address [facility] Phone Number CERIVIS MILLENNIUM * ELECTROLYTE PANEL (03/30/2010 6:05 PM EST) Pathologist [facility] Sodium 135 135 - 145 mmol/L CERNER [...] Fenton MD CHEMISTRY ORDERABLES Performing Organization Address [facility] Co de Phone Number CERIVIS MILLENNIUM * CREATININE, SERUM (03/30/2010 6:05 PM EST) Creatinine 0.87 0.80 - 1.50 mg/dL [facility] Est Glomerular Filtration Rate >60 >=60 [facility] Comment: The National Kidney Disease [...] Urea Nitrogen 18 10 - 20 mg/dL [facility] Blood specimen (specimen) 03/30/2010 6:05 PM EST 03/30/2010 6:13 PM EST Jairon Fenton MD CHEMISTRY ORDERABLES Performing Organization Address [facility] de Phone Number DEJA SEGOVIA * APTT (03/30/2010 6:05 PM EST) Partial Thromboplastin Time 26 25 - 37 sec [facility] Comment: Recommended therapeutic PTT range for full dose unfractionated heparin is 80-114 seconds. Blood specimen (specimen) 03/30/2010 6:05 PM EST 03/30/2010 6:14 PM EST Jairon Fenton MD HEMATOLOGY ORDERABLE S Performing Organization Address [facility] Phone Number DEJA SEGOVIA * PROTIME-INR (03/30/2010 6:05 PM EST) Prothrombin Time 14.2 12.3 - 14.7 sec [facility] Comment: [facility] Transfusion Committee Guidelines: INR less than 2.0, PTT less than OR equal to 43.5 seconds, or Fibrinogen greater than or equal to 100 mg/dl indicate adequate procoagulant activity for hemostasis in patients without underlying bleeding disorders. International Normalization Ratio 1.1 0.9 - 1.1 [facility] Blood specimen (specimen) 03/30/2010 6:05 PM EST 03/30/2010 6:14 PM EST Jairon Fenton MD HEMATOLOGY ORDERABLE S Performing Organization Address [facility] de Phone Number DEJA SEGOVIA * (ABNORMAL) [...] Standard Deviation 44.2 35.0 - 46.0 fL [facility] RDW coefficient of variation 13.1 10.9 - 14.4 % [facility] Mean Platelet Volume 10.6 9.0 - 12.0 fL [facility] Blood specimen (specimen) 03/30/2010 6:05 PM EST 03/30/2010 6:13 PM EST Jairon Fenton MD HEMATOLOGY ORDERABLE S Performing Organization Address [facility] Co de Phone Number [facility] * REFLEX LAB-ANTIBODY SCREEN (03/30/2010 3:17 PM EST) [facility] Ab Screen Interp Negative [facility] Expires at [id number] on: [id number] [facility] Blood specimen (specimen) 03/30/2010 3:17 PM EST 03/30/2010 3:17 PM EST Javier Barajas MD BLOOD BANK LAB ORDER PRECIOUS Performing Organization Address [facility] Co de Phone Number [facility] * REFLEX LAB-ABO/RH (03/30/2010 3:17 PM EST) [facility] ABORH Type A Pos [facility] Blood specimen (specimen) 03/30/2010 3:17 PM EST 03/30/2010 3:17 PM EST Javier Barajas MD BLOOD BANK LAB ORDER PRECIOUS Performing Organization Address [facility] Co de Phone Number [facility] * ELECTROLYTE PANEL (03/30/2010 2:50 PM EST) [facility] Sodium 135 135 - 145 mmol/L [facility] Potassium 4.3 3.5 - 5.0 mmol/L [facility] Comment: Please note: ??Patients with WBC >100,000 [...] Barajas MD CHEMISTRY ORDERABLES Performing Organization Address [facility] Phone Number [facility] * BUN (03/30/2010 2:50 PM EST) Blood Urea Nitrogen 18 10 - 20 mg/dL [facility] Blood specimen (specimen) 03/30/2010 2:50 PM EST 03/30/2010 3:05 PM EST Javier Barajas MD CHEMISTRY ORDERABLES Performing Organization Address [facility] Phone Number [facility] * GLUCOSE, RANDOM (03/30/2010 2:50 PM EST) Glucose 95 <=199 mg/dL [facility] Comment:Diabetes: >=200 mg/d L plus symptoms Blood specimen (specimen) 03/30/2010 2:50 PM EST 03/30/2010 3:05 PM EST Javier Barajas MD CHEMISTRY ORDERABLES Performing Organization Address [facility] Phone Number [facility] * APTT (03/30/2010 2:50 PM EST) Partial Thromboplastin Time 25 25 - 37 sec [facility] Comment: Recommended therapeutic PTT range for full dose unfractionated heparin is 80-114 seconds. Blood specimen (specimen) 03/30/2010 2:50 PM EST 03/30/2010 3:06 PM EST Javier Barajas MD HEMATOLOGY ORDERABLE S Performing Organization Address [facility] Phone Number [facility] * PROTIME-INR (03/30/2010 2:50 PM EST) Prothrombin Time 14.1 12.3 - 14.7 sec [facility] Comment: [facility] Transfusion Committee Guidelines: INR less than [...] on filedocumented in this encounter Care Teams Residential Electrician Relationship Specialty Start Date End Date Marques Martinez MD [address] [place] [address] PCP - General 04/01/10 04/08/11 documented as of this encounter
--- OUTSIDE RECORDS SUMMARY | 2023-12-10 10:12 | XMS_ITS | Encounter Summary ---
[place] [address] Care Team Providers Care Wind Field Manager Name Role Phone Marques Martinez MD Primary Care Provider Encounter Details Date Type Department Care Team (Late st Contact Info) Description 05/01/2010 2:40 PM EST Procedure [place] [address] Social History Tobacco Use Types Packs/Day Years [...] AM EDT Hospital Encounter Non-Invasive [place] [address] Arrived documented as of this encounter Visit Diagnoses Not on filedocumented in this encounter Care Teams Wind Field Manager Relationship Specialty Start Date End Date Marques Martinez MD [address] [place] [address] PCP - General 04/01/10 04/08/11 documented as of this encounter
--- OUTSIDE RECORDS SUMMARY | 2023-12-10 10:12 | XMS_ITS | Encounter Summary ---
[place] [address] Care Team Providers Care Suspender Maker Name Role Phone Donny Cooper MD Primary Care Provider [phone] Encounter Details Date Type Department Care Team (Latest Contact Info) Description 07/07/2022 10:00 AM EST - 07/07/2022 11:59 PM EST Hospital Encounter [place] [address] Discharge Disposition: Home Social History Tobacco Use [...] AM EDT Hospital Encounter Non-[place] [address] Arrived documented as of this [...] on filedocumented in this encounter Care Teams Suspender Maker Relationship Specialty Start Date End Date Donny Cooper MD [address] [place] [address] PCP - General Family Medicine 02/25/19 documented as of this encounter
--- OUTSIDE RECORDS SUMMARY | 2023-12-10 10:12 | XMS_ITS | Encounter Summary ---
Author Organization [facility] [place] [address] Care Team Providers Care System Operator Name Role Phone Marques Martinez MD Primary Care Provider [phone] Encounter Details Date Type Department Care Team (Late st Contact Info) Description 10/09/2010 11:35 AM EDT - 10/09/2010 11:59 PM EDT Hospital Encounter XRay at [address] [place] [address] Social History Tobacco Use Types Packs/Day Years [...] AM EDT Hospital Encounter Non-Invasive Cardiology Lab [facility] [place] [address] Arrived documented as of this encounter Visit Diagnoses Not on filedocumented in this encounter Care Teams System Operator Relationship Specialty Start Date End Date Marques Martinez MD [address] [place] [address] PCP - General 04/01/10 04/08/11 documented as of this encounter
--- OUTSIDE RECORDS SUMMARY | 2023-12-10 10:12 | XMS_ITS | Encounter Summary ---
Author Organization [facility] [place] [address] Care Team Providers Care Machine Sewer Name Role Phone Donny Cooper MD Primary Care Provider [phone] Encounter Details Date Type Department Care Team (Late st Contact Info) Description 07/26/2019 Notes Only Cardiology at [address] [address] Maged Arguelles MD [facility] [place] [address] Social History Tobacco Use Types Packs/Day Years [...] his Medtronic biventricular ICD is reviewed. Suboptimal SALES SUPPORT CONSULTANT at 84%. Normal device function. Awaiting Holter to assess PVC burden. Maged Arguelles MD [facility] Cardiac Electrophys[facility] 07/26/2019 9:04 AM documented in this encounter Plan of Treatment Upcoming Encounters Date Type Department Care Team (Late st Contact Info) Description 02/02/2024 10:00 AM EDT Hospital Encounter Non-Invasive [place] [address] Arrived documented as of this encounter Visit Diagnoses Not on filedocumented in this encounter Care Teams Machine Sewer Relationship Specialty Start Date End Date Donny Cooper MD [address] [place] [address] PCP - General Family Medicine 02/25/19 documented as of this encounter
--- OUTSIDE RECORDS SUMMARY | 2023-12-10 10:12 | XMS_ITS | Encounter Summary ---
Author Organization [facility] [place] [address] Care Team Providers Care Director Transition Name Role Phone Clem Olvera MD Primary Care Provider [phone] Reason for Visit * Reason Comments Follow Up Fracture SP PATELLA FX DO12/12 DOI 03/30/10 Encounter Details Date Type Department Care Team (Late st Contact Info) Description 04/09/2011 1:30 PM EST Office [place] [address] Jairon Gustafson MD [facility] [place] [address] Jose Francisco Bee PA [facility] [place] [address] Patella fracture (Primary Dx) Discharge Disposition: Home [...] Hospital Encounter Non-Invasive [place] [address] Arrived documented as of this encounter Visit Diagnoses Diagnosis Patella fracture- Primary Closed fracture of patella documented in this encounter Care Teams Director Transition Relationship Specialty Start Date End Date Clem Olvera MD [address] [place] [address] PCP - General 04/09/11 02/24/19 documented as of this encounter
--- OUTSIDE RECORDS SUMMARY | 2023-12-10 10:12 | XMS_ITS | Encounter Summary ---
Author Organization [facility] [place] [address] Care Team Providers Care Gauge Inspector Name Role Phone Marques Martinez MD Primary Care Provider [phone] Encounter Details Date Type Department Care Team (Late st Contact Info) Description 05/01/2010 3:10 PM EST Office [place] [address] Jairon Fenton MD [facility] [place] [address] Discharge Disposition: Home Social History Tobacco Use [...] AM EDT Hospital Encounter Non-[place] [address] Arrived documented as of this encounter Visit Diagnoses Not on filedocumented in this encounter Care Teams Gauge Inspector Relationship Specialty Start Date End Date Marques Martinez MD [address] [place] [address] PCP - General 04/01/10 04/08/11 documented as of this encounter
--- OUTSIDE RECORDS SUMMARY | 2023-12-10 10:12 | XMS_ITS | Encounter Summary ---
[place] [address] Care Team Providers Care Auto Design Checker Name Role Phone Donny Cooper MD Primary Care Provider [phone] Encounter Details Date Type Department Care Team (Late st Contact Info) Description 06/14/2020 Telephone Cardiology at [address] [address] Nhung Briggs Social History Tobacco Use Types [...] He would like to be seen at [facility]. Email sent to Brittaney Hernandez at [facility] asking her to reach out to pt to set up the appt with either Dr. Arguelles or LANG Albert. Nhung Allen Electrophysiology Scheduling [id number] option 2 documented in this encounter Plan of Treatment Upcoming Encounters Date Type Department Care Team (Late st Contact Info) Description 02/02/2024 10:00 AM EDT Hospital Encounter [place] [address] Arrived documented as of this encounter Visit Diagnoses Not on filedocumented in this encounter Care Teams Auto Design Checker Relationship Specialty Start Date End Date Donny Cooper MD [address] [place] [address] PCP - General Family Medicine 02/25/19 documented as of this encounter
--- OUTSIDE RECORDS SUMMARY | 2023-12-10 10:12 | XMS_ITS | Encounter Summary ---
Author Organization [facility] [address] Care Team Providers Care Dietician Name Role Phone Donny Cooper MD Primary Care Provider [phone] Encounter Details Date Type Department Care Team (Latest Contact Info) Description 10/03/2022 10:00 AM EDT Office Visit Cardiology at [address] [address] [facility] [place] [address] Cardiomyopathy, primary; Presence of cardiac resynchronization therapy defibrillator (COST ACCOUNTANT-D); Diaphragmatic stimulation by cardiac pacemaker, initial encounter [...] original note were not included. Cardiac Device COST ACCOUNTANT-D Programming Evaluation Nabil Iglesias [id number] 10/03/2022 History: Mr. 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 [...] AM EDT Hospital Encounter Non-Invasive [place] [address] Arrived documented as of this encounter Procedures Procedure Name Priority Date/Time Associated Diagnosis Comments EKG 12-LEAD Routine 10/03/2022 11:00 AM EDT Cardiomyopathy, primary Presence of cardiac resynchronization therapy defibrillator (COST ACCOUNTANT-D) Diaphragmatic stimulation by cardiac pacemaker, initial encounter documented in this encounter Results * EKG 12 Lead (10/03/2022 11:00 AM EDT) Ventricular rate 74 BPM MUSE SYSTEM Atrial Rate 74 BPM MUSE SYSTEM P-R Interval 154 ms MUSE SYSTEM QRS Duration 162 ms MUSE SYSTEM Q-T Interval 470 ms MUSE SYSTEM QTC Calculated (Bezet) 521 ms MUSE SYSTEM Calculated P Colony 30 degrees MUSE SYSTEM Calculated R Colony -98 degrees MUSE SYSTEM Calculated T Colony 41 degrees MUSE SYSTEM INTERPRETATION Atrial-sense d [...] cardiomyopathies Presence of cardiac resynchronization therapy defibrillator (COST ACCOUNTANT-D) Diaphragmatic stimulation by cardiac pacemaker, initial encounter documented in this encounter Care Teams Dietician Relationship Specialty Start Date End Date Donny Cooper MD [address] [place] [address] PCP - General Family Medicine 02/25/19 documented as of this encounter
--- OUTSIDE RECORDS SUMMARY | 2023-12-10 10:12 | XMS_ITS | Encounter Summary ---
[place] [address] Care Team Providers Care Manager Distribution Name Role Phone Donny Copoer MD Primary Care Provider [phone] Encounter Details Date Type Department Care Team (Latest Contact Info) Description 04/08/2022 10:00 AM EST - 04/08/2022 11:59 PM [facility] Hospital Encounter [place] [address] Discharge Disposition: Home Social History Tobacco Use [...] AM EDT Hospital Encounter [place] [address] Arrived documented as of this [...] filedocumented in this encounter Care Teams Manager Distribution Relationship Specialty Start Date End Date Donny Cooper MD [address] [place] [address] PCP - General Family Medicine 02/25/19 documented as of this encounter
--- OUTSIDE RECORDS SUMMARY | 2023-12-10 10:12 | XMS_ITS | Encounter Summary ---
Author [place] [address] Care Team Providers Care Central Office Supervisor Name Role Phone Donny Cooper MD Primary Care Provider [phone] Encounter Details Date Type Department Care Team (Late st Contact Info) Description 03/17/2019 Telephone Cardiology at [address] [address] Sheri Quinn LNA Social History [...] AM EDT Hospital Encounter Non[place] [address] Arrived documented as of this encounter Visit Diagnoses Not on filedocumented in this encounter Care Teams Central Office Supervisor Relationship Specialty Start Date End Date Donny Cooper MD [address] [place] [address] PCP - General Family Medicine 02/25/19 documented as of this encounter
--- OUTSIDE RECORDS SUMMARY | 2023-12-10 10:12 | XMS_ITS | Encounter Summary ---
[place] [address] Care Team Providers Care Vessel Scrapper Helper Name Role Phone Donny Cooper MD Primary Care Provider [phone] Encounter Details Date Type Department Care Team (Latest Contact Info) Description 10/05/2022 10:00 AM EDT - 10/05/2022 11:59 PM EDT Hospital Encounter [place] [address] Discharge Disposition: Home Social History Tobacco Use [...] AM EDT Hospital Encounter Non-[place] [address] Arrived documented as of this encounter Procedures [...] on filedocumented in this encounter Care Teams Vessel Scrapper Helper Relationship Specialty Start Date End Date Donny Cooper MD [address] [place] [address] PCP - General Family Medicine 02/25/19 documented as of this encounter
--- OUTSIDE RECORDS SUMMARY | 2023-12-10 10:12 | XMS_ITS | Encounter Summary ---
Author Organization [facility] [place] [address] Care Team Providers Care Wet Sander Name Role Phone Donny Cooper MD Primary Care Provider [phone] Encounter Details Date Type Department Care Team (Latest Contact Info) Description 06/13/2020 12:35 PM EST - 06/13/2020 11:59 PM EST Hospital Encounter Non-Invasive [place] [address] Alber Seals MD [facility] [place] [address] Cardiomyopathy, primary Discharge Disposition: Home Social History [...] AM EDT Hospital Encounter Non-Invasive [place] [address] Arrived documented as of this encounter Procedures Procedure Name Priority Date/Time Associated Diagnosis Comments ICD INTERROGATION 3 MONTH Routine 06/13/2020 12:36 PM EST Cardiomyopathy, primary documented in this encounter Results * ICD INTERROGATION 3 MONTH (06/13/2020 12:36 PM EST) Anatomical Region Laterality Modality Other Narrative 06/14/2020 10:38 AM EST Cardiac Device Remote Monitoring Report Summary Medtronic Classkick 06/14/20 Device: STAFFING CONSULTANT-D Model: VIVA QUAD Battery: 2.96 v, estimated longevity 3 years, 11 months Pacing percentage: 78% ventricular paced Events: The presenting rhythm is atrial paced with biventricular pacing and frequent ventricular premature contractions No significant arrhythmias Impression Normal device function; suboptimal STAFFING CONSULTANT pacing likely secondary to frequent PVCs. Should consider in clinic follow-up for further evaluation Follow Up As per schedule - in-clinic and remote ALBER SEALS MD Alber Seals MD IMPLANTABLE CARDIAC DEVICE documented in this encounter Visit Diagnoses Diagnosis Cardiomyopathy, primary Other primary cardiomyopathies documented in this encounter Care Teams Wet Sander Relationship Specialty Start Date End Date Donny Cooper MD [address] [place] [address] PCP - General Family Medicine 02/25/19 documented as of this encounter
--- OUTSIDE RECORDS SUMMARY | 2023-12-10 10:12 | XMS_ITS | Encounter Summary ---
Author [facility] [place] [address] Care Team Providers Care Pottery Machine Operator Name Role Phone Marques Martinez MD Primary Care Provider [phone] Encounter Details Date Type Department Care Team (Late st Contact Info) Description 09/11/2010 Orders [place] [address] Jairon Fenton MD [facility] DR [place] [address] Fracture of patella, left, closed (Primary Dx) [...] AM EDT Hospital Encounter Non-[place] [address] Arrived documented as of this encounter Visit Diagnoses Diagnosis Fracture of patella, left, closed- Primary Closed fracture of patella documented in this encounter Care Teams Pottery Machine Operator Relationship Specialty Start Date End Date Marques Martinez MD [address] [place] [address] PCP - General 04/01/10 04/08/11 documented as of this encounter
--- OUTSIDE RECORDS SUMMARY | 2023-12-10 10:12 | XMS_ITS | Encounter Summary ---
[place] [address] Care Team Providers Care Brim Pouncing Machine Operator Name Role Phone Donny Cooper MD Primary Care Provider [phone] Encounter Details Date Type Department Care Team [...] AM EDT Hospital Encounter Non-Invasive [place] [address] Arrived documented as of this encounter Visit Diagnoses Not on filedocumented in this encounter Care Teams Brim Pouncing Machine Operator Relationship Specialty Start Date End Date Donny Cooper MD [address] [place] [address] PCP - General Family Medicine 02/25/19 documented as of this encounter
--- OUTSIDE RECORDS SUMMARY | 2023-12-10 10:12 | XMS_ITS | Encounter Summary ---
Author Organization [facility] [place] [address] Care Team Providers Care Technologist Development Name Role Phone Marques Martinez MD Primary Care Provider [phone] Reason for Visit * Reason Comments Follow Up Fracture PATELLA FX DOI 03/23 10 Encounter Details Date Type Department Care Team (Late st Contact Info) Description 10/09/2010 12:40 PM EDT Office [place] [address] Jairon Gustafson MD [facility] [place] [address] Jose Francisco Bee PA [facility] [place] [address] Quadriceps tendon rupture (Primary Dx) Discharge Disposition: [...] AM EDT Hospital Encounter [place] [address] Arrived documented as of this encounter Visit Diagnoses Diagnosis Quadriceps tendon rupture- Primary Sprain and strain of other specified sites of knee and leg documented in this encounter Care Teams Technologist Development Relationship Specialty Start Date End Date Marques Martinez MD [address] [place] [address] PCP - General 04/01/10 04/08/11 documented as of this encounter
--- OUTSIDE RECORDS SUMMARY | 2023-12-10 10:12 | XMS_ITS | Encounter Summary ---
Author Organization [facility] [place] [address] Care Team Providers Care Webmethods Architect Name Role Phone Marques Martinez MD Primary Care Provider [phone] Encounter Details Date Type Department Care Team (Late st Contact Info) Description 06/12/2010 2:10 PM EST Office [place] [address] Jairon Fenton MD [facility] DR [place] [address] Discharge Disposition: Home Social History Tobacco Use [...] AM EDT Hospital Encounter Non-[place] [address] Arrived documented as of this encounter Visit Diagnoses Not on filedocumented in this encounter Care Teams Webmethods Architect Relationship Specialty Start Date End Date Marquse Martinez MD [address] [place] [address] PCP - General 04/01/10 04/08/11 documented as of this encounter
--- OUTSIDE RECORDS SUMMARY | 2023-12-10 10:12 | XMS_ITS | Encounter Summary ---
Author Organization [facility] [place] [address] Care Team Providers Care Corporate Banking Officer Name Role Phone Donny Cooper MD Primary Care Provider [phone] Encounter Details Date Type Department Care Team (Latest Contact Info) Description 12/18/2020 11:57 AM EDT - 12/18/2020 11:59 PM EDT Hospital Encounter [place] [address] Maged Arguelles MD [facility] [place] [address] Cardiomyopathy, primary Discharge Disposition: Home Social History [...] AM EDT Hospital Encounter Non-[place] [address] Arrived documented as of this encounter Procedures Procedure Name Priority Date/Time Associated Diagnosis Comments ICD INTERROGATION 3 MONTH Routine 12/18/2020 12:00 PM EDT Cardiomyopathy, primary documented in this encounter Results * ICD INTERROGATION 3 MONTH (12/18/2020 12:00 PM EDT) Anatomical Region Laterality Modality Other Narrative 12/23/2020 11:08 PM EDT MDT CLOSER ON-D remote reviewed. Normal device function. Inadequate CLOSER ON at 80%. Maged Arguelles MD [facility] Cardiac Electrophysiology 12/23/2020 11:06 PM Maged Arguelles MD IMPLANTABLE CARDIAC DEVICE documented in this encounter Visit Diagnoses Diagnosis Cardiomyopathy, primary Other primary cardiomyopathies documented in this encounter Care Teams Corporate Banking Officer Relationship Specialty Start Date End Date Donny Cooper MD [address] [facility] [place] [address] PCP - General Family Medicine 02/25/19 documented as of this encounter
--- OUTSIDE RECORDS SUMMARY | 2023-12-10 10:12 | XMS_ITS | Encounter Summary ---
[place] [address] Care Team Providers Care Applications Administrator Name Role Phone Marques Martinez MD Primary Care Provider [phone] Encounter Details Date Type Department Care Team (Late st Contact Info) Description 10/03/2010 Abstract [place] [address] Marina Orosco, JADON Social History Tobacco Use [...] AM EDT Hospital Encounter Non-[place] [address] Arrived documented as of this encounter Visit Diagnoses Not on filedocumented in this encounter Care Teams Applications Administrator Relationship Specialty Start Date End Date Marques Martinez MD [address] [place] [address] PCP - General 04/01/10 04/08/11 documented as of this encounter
[2023-12-10 10:17] VITALS: BP 130/67; PULSE 71
[2023-12-15 08:21] VITALS: BP 128/86; PULSE 70
--- OUTSIDE RECORDS SUMMARY | 2023-12-15 08:21 | XMS_ITS | Encounter Summary ---
Author Organization [facility] Address [address] [place] [address] Care Team Providers Care Senior Mobile Application Developer Name Role Phone Clem Olvera MD Primary Care Provider [phone] Encounter Details Date Type Department Care Team (Latest Contact Info) Description 12/20/2015 10:52 EDT - 12/20/2015 23:52 EDT Hospital Encounter [facility] Cardiovascular Unit [address] [place] [address] Navdeep Hurd MD [address] [place] [address] [address] Discharge Disposition: Home or Self [...] no need to beNPO or have a medical van driver. However, his will be accompanying him. They [place] someone to the airport [place] 1000 and then will come here and check-in around 1145. He agrees to have a shower. documented in this encounter Procedure Notes * Fantasma Dhillon MD - 12/20/2015 1356 EDT IR Brief Procedure Note Attending: Leo Sales Product Manager: Alejo Pre-op Dx: Arrhythmia, need for [...] 12/19 documented in this encounter Care Teams Senior Mobile Application Developer Relationship Specialty Start Date End Date Clem Olvera MD [address] [place] [address] PCP - General 12/18/15 documented as of this encounter
--- OUTSIDE RECORDS SUMMARY | 2023-12-15 08:21 | XMS_ITS | Clinical Summary ---
Author Organization [facility] [place] [address] Care Team Providers Care Zipper Measurer Name Role Phone Donny Cooper MD Primary Care Provider [phone] Allergies No known active allergies Medications Medication [...] PM EDT Hospital Encounter [place] [address] Discharge Disposition: Home from Last 3 Months [...] AM EDT Hospital Encounter [place] [address] Arrived Health Maintenance Due Date Last Done Comments Tdap adult 08/19/1959 Tetanus vaccine 08/19/1959 Zoster vaccine (1 of 2) 1990 Advance Directive 08/19/1995 Pneumoccocal Vaccine: 65+ (2 of 2 - PCV) 05/04/2009 05/04/2008 Covid-19 Vaccine ( - 2022- season) 2023 Influenza (Flu) vaccine (1 o f 1 - Influenza standard series) 01/03/2024 02/01/2010, 03/06/2006, 02/24/2005 Medical Devices Implanted Type Area Foxing Painter Device Identifier Shelf Expiration Date Model / Serial / Lot Mdt : [id number] : [id number] Implanted: (Quantity not on file) Cardiac Resynchronization Therapy - Defibrillator Chest Medtronic - [id number] / [id number] / Care Teams Zipper Measurer Relationship Specialty Start Date End Date Donny Cooper MD [address] [place], [place] [address] PCP - General Family Medicine 02/25/19
--- OUTSIDE RECORDS SUMMARY | 2023-12-15 08:21 | XMS_ITS | Encounter Summary ---
Author Organization [facility] Address [address] [place] [address] Care Team Providers Care Charter Boat Captain Name Role Phone Clem Olvera MD Primary Care Provider [phone] Encounter Details Date Type Department Care Team (Late st Contact Info) Description 03/16/2019 Abstract [facility] [address] [place] [address] Ronal Avelar, JADON AV block, 2nd degree [...] Laterality Modality Device Narrative 03/24/2019 10:30 EST [facility] Device Visit Supervisor Specialty Plant: Alexis [employer] Device Type: GYNAECOLOGICAL ONCOLOGIST-D Service: Remote ? 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
--- OUTSIDE RECORDS SUMMARY | 2023-12-15 08:21 | XMS_ITS | Encounter Summary ---
Author Organization [facility] Address [address] [place] [address] Care Team Providers Care Health Type Technician Name Role Phone Clem Olvera MD Primary Care Provider [phone] Reason for Referral * (Routine) - Closed Specialty Diagnoses / Procedures Referred By Pedro madera Referred To Contact Beatrice De La Garza NP [address] [place] [phone] Referral ID Status Reason Start Date Expiration Date V isits Requested Visits Authorized [id number] Closed Specialty Services Required 02/27/2016 1 1 Comments You must contact us if we have not contacted you or you have missed your scheduled appointment. If you have any nursing questions, please don't hesitate to call the Cardiac Arrhythmia Service at [facility] at or , extension [phone]. For any scheduling of appointments, please call [phone] or , extension [phone]. . * (Routine) - Closed Specialty Diagnoses / Procedures Referred By Pedro madera Referred To Contact Beatrice De La Garza NP [address] [address] Referral ID Status Reason Start Date Expiration Date V isits Requested Visits Authorized [id number] Closed Specialty Services Required 02/27/2016 1 1 Comments You have a pre existing appointment with Dr. Olvera on March 05 at 2:00, please have Dr. Olvera check your incision at that visit. * (Routine) - Closed Specialty Diagnoses / Procedures Referred By Contbecca t Referred To Contact Beatrice De La Garza NP [address] [address] Referral ID Status Reason Start Date Expiration Date V isits Requested Visits Authorized [id number] Closed Specialty Services Required 02/27/2016 1 1 [...] scheduled at your first appointment. - [facility] Cardiology is located at [address] [facility] in [place] -Clinics are also held in [facility], and [place], [place] and [facility]. If you live in those areas, we will make arrangements for follow-up appointments in one of those clinics.. Encounter Details Date Type Department Care Team (Late st Contact Info) Description 02/27/2016 6:30 EDT - 02/28/2016 13:39 EDT Hospital Encounter [facility] Cardiac/Telemetry Unit [address] [place] [address] Gulshan Drummond MD PhD [address] [address] Gulshan Montoya Sa, MD [address] [facility] [address] [place] [phone] AICD lead malfunction, subsequent encounter; ICD [...] EF of 20-25% status post silent inferior MO in the early . 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 He had heart failure symptoms that started around May 2013, when he was in [place], [place]. This triggered major cardiac workup including [...] then underwent a device upgrade to a WOOD GLUER-D device with biventricular pacing for his EF [...] been followed in cardiology outreach clinic at [facility] in [place]. Continued high pacing threshold on the epicardial [...] and plans to follow up with his Supervisor Paper Testing in [place] in 6-8 weeks for which he will arrange once he has arrived in [place]. He has been provided with the implant [...] HGBA1C Discharge Follow Up Appointments Scheduled with [facility] Appointments Outside of [facility] We Will Schedule Studies We Will Schedule Appointments We Recommend but have not been Scheduled Beatrice De La Garza NP 02/27/2016 10:59 Associated attestation - Gulshan Montoya Sa, MD - 02/28/2016 1519 EDT Attending Attestation: I saw and evaluated the patient. I discussed the case with the resident/CONCRETE WORKER/fellow and agree with the findings and plan as documented above. Gulshan bullock Sa, MD Cardiac Electrophysiology documented in this encounter Discharge Instructions * Appointments* Beatrice De La Garza NP - 02/27/2016 11:[address] Olvera on 03/05/16 at 2:00 as previously scheduled for a routine visit and for a check of your incision. Follow up with Giselle Hill NP at the [facility] in May, you will be notified [...] Notes * Lou Alfonso RN - 02/28/2016 4166 EDT Pt awaiting discharge. IV and tele was removed by primary nurse. This RN administered flu shot and provided flu information sheet. AVS and medications reviewed by RN with patient and . AVS statedcoreg was 3.25mg BID, which pt states no, they must have copied it down wrong. I'm not doing that.We've been through this in [place]. It makes me pass out. RN suggested checking with team, which pt denied and states I wont take it twice a day. He did agree to review this medication with his energy conservation engineer and plans to remain on his home dosing, which was in the morning. He received dose this am. Ptleft via wheelchair with . * Beatrice Rodriguez - 02/28/2016 1329 EDT Brief visit with patient and as they were being discharged. Patient states he is independent in self care and home management. He feels well supported by friends and neighbors. Patient has Medicare and [facility]. [facility] in [facility]. No needs identified at time of discharge. will provide transportation. Beatrice Rodriguez RN Case Manager #[id number] documented in this encounter H&P Notes * Navdeep Hurd MD - 02/27/2016 0830 EDT Cardiology Admitting H&P Admit Date: 02/27/2016 Date of Service: 02/27/2016 PCP: Clem Olvera Code Status: Full Code Chief Complaint: FINN, device battery depletion, high pacing threshold on epicardial lead HPI: 74-year-old man with coronary artery disease and ischemic cardiomyopathy status post silent inferior MO in the early . 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 He had heart failure symptoms that started around May 2013, when he was in [place], [place]. This triggered major cardiac workup including [...] point, his device was upgraded to a WOOD GLUER-D device with biventricular pacing. By the patient's [...] been followed in cardiology outreach clinic at [facility] in [place]. Continued high pacing threshold on the epicardial LV lead has caused a very rapid battery depletion. Dr. David Adams in [place] recommended against lead extraction and reimplant as [...] ??? Pacemaker insertion 2002 2013 second pacemaker [facility] Social History Family History Social History Substance Use Topics ??? Smoking status: Former Smoker Years: 35.00 Quit date: 1989 ??? Smokeless tobacco: Not on file ??? Alcohol use 6.6 oz/week 6 Cans of beer, 5 Glasses of wine per week , lives with , retired. Spends leong in [place]. Spends the chery in [place], [place]. Quit smoking in 1990. Has 2 [...] and ischemic cardiomyopathy status post silent inferior MO in the early . Also diagnosed with [...] point, his device was upgraded to a WOOD GLUER-D device with biventricular pacing with a surgically [...] EST) 03/12/2016 12:4 3 EST Scan 2 News Camera Operator PROCEDURE/MINOR JUDD GICAL ORDERABLES * ECG REPORT - SCANNED (03/04/2016 14:06 EDT) 03/04/2016 14:0 6 EDT Scan 2 News Camera Operator PROCEDURE/MINOR JUDD GICAL ORDERABLES * ECG REPORT - SCANNED (03/04/2016 14:06 EDT) 03/04/2016 14:0 6 EDT Scan 2 News Camera Operator PROCEDURE/MINOR JUDD GICAL ORDERABLES * IMPLANT RECORD - SCANNED (03/04/2016 14:06 EDT) 03/04/2016 14:0 6 EDT Scan 2 News Camera Operator PROCEDURE/MINOR JUDD GICAL ORDERABLES * ECG REPORT - SCANNED (03/01/2016 8:58 EDT) 03/01/2016 8:58 EDT Scan 2 News Camera Operator PROCEDURE/MINOR JUDD GICAL ORDERABLES * ECG REPORT - SCANNED (03/01/2016 8:58 EDT) 03/01/2016 8:58 EDT Scan 2 News Camera Operator PROCEDURE/MINOR JUDD GICAL ORDERABLES * CHEST [...] IMAGING ORDERABLES * HEMAGRAM (02/28/2016 5:44 EDT) [facility] WBC 9.84 4.0 - 10.4 K/cmm 02/28/2016 6:26 EDT [facility] RBC 4.42 4.36 - 5.78 M/cmm 02/28/2016 6:26 T [facility] Hemoglobin 14.2 13.8 - 17.3 gm/dl 02/28/2016 6:26 [facility] HCT 40.9 39.5 - 50.2 % 02/28/2016 6:26 [facility] MCV 93 81 - 95 fl 02/28/2016 6:26 [facility] MCH 32.1 27.6 - 33.0 pg 02/28/2016 6:26 [facility] MCHC 34.7 32.8 - 36.4 gm/dl 02/28/2016 6:26 [facility] RDW-CV 13.1 11.8 - 14.1 % 02/28/2016 6:26 [facility] RDW-SD 44.6 36.5 - 45.9 fl 02/28/2016 6:26 [facility] PLT 151 141 - 377 K/cmm 02/28/2016 6:26 [facility] MPV 11.2 9.5 - 12.7 fl 02/28/2016 6:26 [facility] Blood specimen (specimen) BLOOD SPECIMEN / Unknown 02/28/2016 5:44 EDT 02/28/2016 6:13 EDT Beatrice De La Garza NP HEMATOLOGY & PF4 ORDERABLES [facility] [address] [place] [address] * (ABNORMAL) CREATININE (02/28/2016 5:44 EDT) Creatinine 0.65(L) 0.66 - 1.25 mg/dl 02/28/2016 6:48 EDT [facility] GFR, Calculated 95 >60 ml/min/1.7 3m2 02/28/2016 6:48 EDT [facility] Comment: eGFR calculated using CKD-EPI equation for non Americans. Multiply eGFR by 1.16 for Americans. Blood specimen (specimen) BLOOD SPECIMEN / Unknown 02/28/2016 5:44 EDT 02/28/2016 6:13 EDT Beatrice De La Garza NP CHEMISTRY & B LOOD GAS ORDERABLES Performing Organization Address [facility]/ZIP Co de Phone Number [facility] [address] [place] [address] * BUN (02/28/2016 5:44 EDT) BUN 14 10 - 26 mg/dl 02/28/2016 6:48 EDT [facility] Blood specimen (specimen) BLOOD SPECIMEN / Unknown 02/28/2016 5:44 EDT 02/28/2016 6:13 EDT Beatrice De La Garza CONCRETE WORKER CHEMISTRY & B LOOD GAS ORDERABLES Performing Organization Address [facility] Co de Phone Number [facility] [address] [place] [address] * ELECTROLYTES (02/28/2016 5:44 EDT) Sodium 138 136 - 145 mEq/L 02/28/2016 6:48 EDT [facility] Potassium 4.7 3.5 - 5.0 mEq/L 02/28/2016 6:48 EDT [facility] Chloride 104 96 - 110 mEq/L 02/28/2016 6:48 EDT [facility] CO2 25 22 - 32 mEq/L 02/28/2016 6:48 EDT [facility] Comment:Note new reference r hong 02/19/16 Blood specimen (specimen) BLOOD SPECIMEN / Unknown 02/28/2016 5:44 EDT 02/28/2016 6:13 EDT Beatrice De La Garza NP CHEMISTRY & B LOOD GAS ORDERABLES [facility] [address] [place] [address] * PORTABLE CHEST 1 VIEW (02/27/2016 12:46 [...] 12:41 EDT) 02/27/2016 12:4 1 EDT Narrative [facility] E[facility] - 02/28/2016 8:57 EDT ? [facility] ? Test Date: ?2016-02-27 Pat Name: ? NABIL IGLESIAS ? Department: ?? [address] ? Room: ? MW514 Gender: ? M ?Asphalt Spreader: ?? [id number] : ?1940 ? Requested By: KAIN REED L Order Number: [id number] ? Reading MD: ?? BRAYAN CUENCA MD ? Measurements Intervals ?[place] ? Rate: ? 63 ? P: ?15 NE: ? 159 ?QRS: ?234 QRSD: ? 156 ?T: ?15 QT: ? 479 ? QTc: ?493 ? Interpretive Statements ELECTRONIC VENTRICULAR PACEMAKER Compared to ECG 02/27/2016 08:10:34 No significant changes I reviewed the tracing and have either agreed or edited the findings in this report. Electronically Signed On 02-28-16 08:57:02 EDT by BRAYAN CUENCA MD. Procedure Note Brayan Cuenca MD - 02/28/2016 [facility] Test Date: 2016-02-27 Pat Name: NABIL IGLESIAS Department: [place] [address] Room: [facility] Gender: M Asphalt Spreader: [id number] : 1940 Requested By: KAIN Gallagher Order Number: [id number] Reading MD: BRAYAN CUENCA MD Measurements Intervals [place] Rate: 63 P: 15 NE: 159 QRS: 234 QRSD: 156 T: 15 QT: 479 QTc: 493 Interpretive Statements ELECTRONIC VENTRICULAR PACEMAKER Compared to ECG 02/27/2016 08:10:34 No significant changes I reviewed the tracing and have either agreed or edited the findings inthis report. Electronically Signed On 02-28-16 08:57:02 EDT by BRAYAN BEEBE. Gulshan Drummond MD PhD CARDIA C ECG ORDERABLES [facility] EKG * PROTIME (02/27/2016 8:45 EDT) Pro Time 12.3 10.3 - 13.1 secs 02/27/2016 9:10 EDT [facility] Comment: New prothrombin t josue range effective 01/29/16 I.N.R. 1.1 0.9 - 1.1 Ratio 02/27/2016 9:10 EDT [facility] Comment: Moderate Intensity Coumadin INR = 2.0-3.0 Adjustments in anticoagulant therapy dose should be based upon the INR and NOT the Pro Time. Blood specimen (specimen) BLOOD SPECIMEN / Unknown 02/27/2016 8:45 EDT 02/27/2016 8:54 EDT Gulshan Drummond MD PhD HEMATO LOGY & PF4 ORDERABLES [facility] [address] [place] [address] * HEMAGRAM (02/27/2016 8:45 EDT) WBC 6.47 4.0 - 10.4 K/cmm 02/27/2016 8:57 EDT [facility] RBC 4.51 4.36 - 5.78 M/cmm 02/27/2016 8:57 EDT [facility] Hemoglobin 14.7 13.8 - 17.3 gm/dl 02/27/2016 8:57 EDT [facility] HCT 41.7 39.5 - 50.2 % 02/27/2016 8:57 EDT [facility] MCV 93 81 - 95 fl 02/27/2016 8:57 EDT [facility] MCH 32.6 27.6 - 33.0 pg 02/27/2016 8:57 EDT [facility] MCHC 35.3 32.8 - 36.4 gm/dl 02/27/2016 8:57 T [facility] RDW-CV 13.1 11.8 - 14.1 % 02/27/2016 8:57 EDT [facility] RDW-SD 44.0 36.5 - 45.9 fl 02/27/2016 8:57 EDT [facility] PLT 176 141 - 377 K/cmm 02/27/2016 8:57 EDT [facility] MPV 10.7 9.5 - 12.7 fl 02/27/2016 8:57 EDT [facility] Blood specimen (specimen) BLOOD SPECIMEN / Unknown 02/27/2016 8:45 EDT 02/27/2016 8:54 EDT Gulshan Drummond MD PhD HEMATO LOGY & PF4 ORDERABLES [facility] [address] [place] [address] * ELECTROLYTES (02/27/2016 8:45 EDT) Sodium 142 136 - 145 mEq/L 02/27/2016 9:13 EDT [facility] Potassium 4.7 3.5 - 5.0 mEq/L 02/27/2016 9:13 EDT [facility] Chloride 103 96 - 110 mEq/L 02/27/2016 9:13 EDT [facility] CO2 27 22 - 32 mEq/L 02/27/2016 9:13 EDT [facility] Comment:Note new reference r hong 02/19/16 Blood specimen (specimen) BLOOD SPECIMEN / Unknown 02/27/2016 8:45 EDT 02/27/2016 8:54 EDT Gulshan Drummond MD PhD CHEMIS TRY & BLOOD GAS ORDERABLES Performing Organization Address [facility] de Phone Number [facility] [address] [place] [address] * CREATININE (02/27/2016 8:45 EDT) Creatinine 0.69 0.66 - 1.25 mg/dl 02/27/2016 9:13 EDT [facility] GFR, Calculated 93 >60 ml/min/1.7 3m2 02/27/2016 9:13 EDT [facility] Comment: eGFR calculated using CKD-EPI equation for non Americans. Multiply eGFR by 1.16 for Americans. Blood specimen (specimen) BLOOD SPECIMEN / Unknown 02/27/2016 8:45 EDT 02/27/2016 8:54 EDT Gulshan Drummond MD PhD CHEMIS TRY & BLOOD GAS ORDERABLES Performing Organization Address City/[facility] Co de Phone Number [facility] [address] [place] [address] * BUN (02/27/2016 8:45 EDT) BUN 17 10 - 26 mg/dl 02/27/2016 9:13 EDT [facility] Blood specimen (specimen) BLOOD SPECIMEN / Unknown 02/27/2016 8:45 EDT 02/27/2016 8:54 EDT Gulshan Drummond MD PhD CHEMIS TRY & BLOOD GAS ORDERABLES [facility] [address] [place] [address] * EKG 12-LEAD (02/27/2016 8:08 EDT) 02/27/2016 8:08 EDT Narrative [facility] EKG - 02/28/2016 9:01 EDT ? [facility] ? Test Date: ?2016-02-27 Pat Name: ? NABIL IGLESIAS ? Department: ?? [facility]iop[facility] ? Room: ? RC2443 Gender: ? M ?Asphalt Spreader: ?? [id number] : ?1940 ? Requested By: MARCIA Boo Order Number: [id number] ? Julia WRIGHT: ?? BRAYAN CUENCA MD ? Measurements Intervals ?[place] ? Rate: ? 69 ? P: ?147 NE: ? 134 ?QRS: ?-67 QRSD: ? 160 [...] Note Brayan Cuenca MD - 02/28/2016 [facility] Test Date: 2016-02-27 Pat Name: NABIL IGLESIAS Department: [facility] Room: UT4388 Gender: M Asphalt Spreader: [id number] : 1940 Requested By: MARCIA Boo Order Number: [id number] Reading MD: BRAYAN CUENCA MD Measurements Intervals [place] Rate: 69 P: 147 NE: 134 QRS: -67 QRSD: 160 T: -59 QT: 434 QTc: 467 Interpretive Statements ELECTRONIC ATRIAL PACEMAKER ELECTRONIC VENTRICULAR PACEMAKER Compared to ECG 02/27/2016 08:08:46 No significant changes I reviewed the tracing and have either agreed or edited the findings inthis report. Electronically Signed On 02-28-16 09:01:04 EDT by BRAYAN BEEBE. 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 [employer] SCOUT, takes other meds at HS)2102 (Given - Provider: Mayd Bruno RN) tamsulosin (FLOMAX) capsule 0.4 mg 0.4 mg, oral, DAILY, First dose on Thu02/27/16 at 1245, Until Discontinued, Routine 1306 (Not Given - Provider: Nneka Stuart RN - Reason: Other - Comment: 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
--- OUTSIDE RECORDS SUMMARY | 2023-12-15 08:21 | XMS_ITS | Encounter Summary ---
Author Organization [facility] Address [address] [place] [address] Care Team Providers Care Customs Import Specialist Name Role Phone Clem Olvera MD Primary Care Provider [phone] Reason for Visit * Reason Onset Date Comments Appointment Related 10/23/2016 Check for fo llow up of pacer Encounter Details Date Type Department Care Team ([facility] Contact Info) Description 10/23/2016 Telephone [facility] Cardiology - [address] [place] [address] Pacemaker, Pace Appointment Related (Check [...] back and are being followed by Dr. Hrud at [facility]. documented in this encounter Plan of Treatment Not on file documented as of this encounter Visit Diagnoses Not on filedocumented in this encounter Care Teams Customs Import Specialist Relationship Specialty Start Date End Date Clem Olvera MD [address] [place] [address] PCP - General 12/18/15 documented as of this encounter
--- OUTSIDE RECORDS SUMMARY | 2023-12-15 08:21 | XMS_ITS | Encounter Summary ---
Author Organization [facility] Address [address] [place] [address] Care Team Providers Care Municipal Maintenance Worker Name Role Phone Unavailable Primary Care Provider Unavailabl e Encounter Details Date Type Department Care Team (Late st Contact Info) Description 05/06/2001 Results Only [facility] [address] [place] [address] Hernandez Partida MD [address] [place] [phone] Social History Tobacco Use Types Packs/Day Years [...] is submitted entirely in cassette (B). ??(Naty Caal)/[facility] End of Report [facility] 05/06/2001 05/07/2001 9:2 5 EST Hernandez Partida MD PATHOLOGY ORDERABLES [facility] [address] [place] [address] documented in this encounter Visit Diagnoses Not on filedocumented in this encounter
--- OUTSIDE RECORDS SUMMARY | 2023-12-15 08:21 | XMS_ITS | Clinical Summary ---
Author Organization [facility] Address [address] [place] [address] Care Team Providers Care Manager Physical Name Role Phone Clem Olvera MD Primary Care Provider [phone] Allergies No known active allergies Medications Medication [...] PACEMAKER INSERTION 05/04/2002 - 05/03/20032013 second pacemaker ed [facility] Medical History Medical History Date [...] Advance Directives For more information, please contact: [phone] * Full Code (Latest Code Status on File) Date Activated Date Inactivated Comments 02/27/2016 8:49 02/28/2016 15:40 Question Answer Comments Reason for decision includes: Full code consistent with overall plan of care Who participated in the discussion? Not Discusse d Care Teams Manager Physical Relationship Specialty Start Date End Date Clem Olvera MD [address] [place] [id number] PCP - General 12/18/15
--- OUTSIDE RECORDS SUMMARY | 2023-12-15 08:21 | XMS_ITS | Encounter Summary ---
Author Organization [facility] Address [address] [place] [address] Care Team Providers Care Clicking Machine Operator Name Role Phone Unknown, Provider Primary Care Provider [phone] Clem Olvera MD Primary Care Provider [phone] Encounter Details Date Type Department Care Team (Late st Contact Info) Description 11/29/2015 Pre-Procedure Orders Encounter [facility] [address] [place], [place] [id number] Navdeep Hurd MD [address] [place] [address] [phone] Social History Tobacco Use Types [...] Patient: Nabil Streeter. Attending: Dr. Moran Scrrajinder Labor Relations Worker: Dr. Fantasma Dhillon History/indication: The patient is [...] Patient: Nabil Streeter Attending: Dr. Dean Bailey Labor Relations Worker: Dr. Fantasma Dhillon History/indication: The patient is [...] on filedocumented in this encounter Care Teams Clicking Machine Operator Relationship Specialty Start Date End Date Unknown, Provider, PCP - General 12/06/12 12/17/15 Clem Olvera MD [address] [place] [address] PCP - General 12/18/15 documented as of this encounter
--- OUTSIDE RECORDS SUMMARY | 2023-12-15 08:21 | XMS_ITS | Encounter Summary ---
[place] [address] Care Team Providers Care Electrical Solderer Name Role Phone Donny Cooper MD Primary Care Provider [phone] Encounter Details Date Type Department Care Team (Latest Contact Info) Description 11/04/2023 10:00 AM EDT - 11/04/2023 11:59 PM EDT Hospital Encounter Non-Invasive [place] [address] Discharge Disposition: Home Social History Tobacco Use [...] Encounter Non-Invasive [place] [phone] Arrived documented as of this encounter Procedures [...] on filedocumented in this encounter Care Teams Electrical Solderer Relationship Specialty Start Date End Date Donny Cooper MD [address] [place] [address] PCP - General Family Medicine 02/25/19 documented as of this encounter
--- OUTSIDE RECORDS SUMMARY | 2023-12-15 08:21 | XMS_ITS | Encounter Summary ---
Author Organization [facility] Address [address] [place] [address] Care Team Providers Care Client Strategist Name Role Phone Clem Olvera MD Primary Care Provider [phone] Reason for Visit * Reason Onset Date Comments Other 04/04/2019 Transfer request for Pacer Care at [facility] Encounter Details Date Type Department Care Team (Late st Contact Info) Description 04/04/2019 Telephone [facility] [address] [place] [address] Giselle Hill, AUTHOR'S AGENT Other (Transfer request for Pacer Care at [facility]) Social History Tobacco Use Types Packs/Day Years [...] 04/04/2019 1503 EST I went into the [employer] Website and released pt to [facility] Pacer Clinic as requested. * Telephone Encounter - Suze Reynoso - 04/04/2019 1342 EST PT WILL BE HAVING HIS PACER CARE DONE AT [facility], PLEASE RELEASE HIS REMOTE MONITORING SO THAT THEY CAN PICK IT UP documented in this encounter Plan of Treatment Not on file documented as of this encounter Visit Diagnoses Not on filedocumented in this encounter Care Teams Client Strategist Relationship Specialty Start Date End Date Clem Olvera MD [address] [place] [address] PCP - General 12/18/15 documented as of this encounter
--- OUTSIDE RECORDS SUMMARY | 2023-12-15 08:21 | XMS_ITS | Encounter Summary ---
Author Organization [facility] Address [address] [place] [address] Care Team Providers Care Board Runner Name Role Phone Unavailable Primary Care Provider Unavailabl e Encounter Details Date Type Department Care Team (Late st Contact Info) Description 12/02/2012 Results Only [facility] Laboratory Services - [facility] ([facility]) [address] [place] [address] [id number] Satinder Edwards MD [address] [place] [address] Social History Tobacco Use Types Packs/Day Years [...] ? NABIL IGLESIAS ? Accession #: ? [id number] ? : ? 1940 (Age: 72) ??M [...] MD PATHOLOGY ORDERABLE S Performing Organization Address City/State/[facility] Co de Phone Number DIVYA BERRY [address] [place] [address] documented in this encounter Visit Diagnoses Not on filedocumented in this encounter
--- OUTSIDE RECORDS SUMMARY | 2023-12-15 08:21 | XMS_ITS | Referral Summary ---
Author Organization [facility] Address [address] [place] [address] Care Team Providers Care Educational Sign Language Interpreter Name Role Phone Clem Olvera MD Primary Care Provider [phone] Allergies No known active allergies Medications Medication [...] Advance Directives For more information, please contact: [phone] * Full Code (Latest Code Status on File) Date Activated Date Inactivated Comments 02/27/2016 8:49 02/28/2016 15:40 Question Answer Comments Reason for decision includes: Full code consistent with overall plan of care Who participated in the discussion? Not Discusse d Care Teams Educational Sign Language Interpreter Relationship Specialty Start Date End Date Clem Olvera MD [address] [place] [id number] PCP - General 12/18/15
--- OUTSIDE RECORDS SUMMARY | 2023-12-15 08:21 | XMS_ITS | Encounter Summary ---
Author Organization 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 [address] [place] [address] ICD (implantable cardioverter-defibril lator) battery [...] 8 EDT Narrative 02/27/2016 15:17 EDT *Cardiology* [address] [place] [address] Lead Revision (Report amended ) Patient: Nabil Iglesias ?Study Date: ?02/27/2016 ? Accession #: ? [id number] : ? 1940 Referring: Clem Olvera Attending: [...] 0.35 glide wire a Nick MENDOZAW 6F ([facility]) 6 mm-40 mm balloon dilation still [...] Venograms were performed in the MOORE and DEACON projections and a suitable mid-lateral LV branch [...] fascia. The leads were connected to a CYBER SECURITY INSTRUCTOR-D device. Device and Lead detail in table [...] Implanted device: Medtronic - Viva Quad XT CYBER SECURITY INSTRUCTOR-D DF4 - Serial number: [id number] Explanted device: Medtronic - Viva XT CYBER SECURITY INSTRUCTOR-D DF4 - Serial number: [id number]. LEAD PARAMETERS + + + + + [...] + + + + + Serial number [id number] ? [id number] ?? [id number] ?? [id number] ? + + + + [...] Gulshan Drummond MD - 05/12/2016 *Cardiology* [address] [place] [address] Lead Revision (Report amended ) Patient: Nabil [...] therefore over an 0.35 glide wire a [facility] 6[facility] ([facility]) 6 mm-40 mm balloon dilation still [...] Venograms were performed in the MOORE and DEACON projections and a suitable mid-lateral LV branch [...] fascia. The leads were connected to a CYBER SECURITY INSTRUCTOR-D device. Device and Lead detail in table [...] Implanted device: Medtronic - Viva Quad XT CYBER SECURITY INSTRUCTOR-D DF4 - Serial number: [id number] Explanted device: Medtronic - Viva XT CYBER SECURITY INSTRUCTOR-D DF4 - Serial number: [id number]. LEAD PARAMETERS + + + + + + Lead # 1 2 3 4 + + + + + + Chamber RA RV LV LV + + + + + + Date 07/19/2002 07/18/2013 02/27/2016 07/18/2013 implanted + + + + + + Model St. Esa Medtronic Medtronic Enpath information [id number] Attain Epicardial Performa 4298 + + + + + + Serial number [id number] + + + + + + [...] situ documented in this encounter Care Teams Industrial Chemistry Teacher Relationship Specialty Start Date End Date Clem Olvera MD [address] [place] [address] PCP - General 12/18/15 documented as of this encounter
--- OUTSIDE RECORDS SUMMARY | 2023-12-15 08:22 | XMS_ITS | Encounter Summary ---
[place] [address] Care Team Providers Care Color Room Attendant Name Role Phone Donny Cooper MD Primary Care Provider [phone] Encounter Details Date Type Department Care Team (Latest Contact Info) Description 07/02/2023 10:00 AM EST - 07/02/2023 11:59 PM EST Hospital Encounter [place] [address] Discharge Disposition: Home Social History Tobacco Use [...] AM EDT Hospital Encounter Non-[place] [address] Arrived documented as of this encounter Visit Diagnoses Not on filedocumented in this encounter Care Teams Color Room Attendant Relationship Specialty Start Date End Date Donny Cooper MD [address] [place] [address] PCP - General Family Medicine 02/25/19 documented as of this encounter
--- OUTSIDE RECORDS SUMMARY | 2023-12-15 08:22 | XMS_ITS | Encounter Summary ---
Author Organization [facility] [place] [address] Care Team Providers Care Center Receptionist Name Role Phone Marques Martinez MD Primary Care Provider [phone] Reason for Visit * Reason Comments Follow Up Fracture PATELLA FX DOI 03/23 10 Encounter Details Date Type Department Care Team (Late st Contact Info) Description 10/09/2010 12:40 PM EDT Office [place] [address] Jairon Gustafson MD [facility] [place] [address] Jose Francisco Bee PA [facility] [place] [address] Quadriceps tendon rupture (Primary Dx) Discharge Disposition: [...] leg documented in this encounter Care Teams Center Receptionist Relationship Specialty Start Date End Date Marqeus Martinez MD [address] [place] [address] PCP - General 04/01/10 04/08/11 documented as of this encounter
--- OUTSIDE RECORDS SUMMARY | 2023-12-15 08:22 | XMS_ITS | Encounter Summary ---
Author Organization [facility] [place] [address] Care Team Providers Care Tutoring Assistant Name Role Phone Donny Cooper MD Primary Care Provider [phone] Encounter Details Date Type Department Care Team (Latest Contact Info) Description 06/25/2021 3:23 PM EST - 06/25/2021 11:59 PM EST Hospital Encounter [place] [address] Alber Seals MD [facility] [place] [address] Cardiomyopathy, primary Discharge Disposition: Home Social History [...] AM EDT Hospital Encounter Non[place] [address] Arrived documented as of this encounter Procedures Procedure Name Priority Date/Time Associated Diagnosis Comments ICD INTERROGATION 3 MONTH Routine 06/25/2021 3:24 PM EST Cardiomyopathy, primary documented in this encounter Results * ICD INTERROGATION 3 MONTH (06/25/2021 3:24 PM EST) Anatomical Region Laterality Modality Other Narrative 06/25/2021 3:42 PM EST Cardiac Device Remote Monitoring Report Summary Medtronic Carelink Device: METAL FORGER'S ASSISTANT-D Model: VIVA QUAD Battery: 2.95 v, estimated longevity 2 years 6 months Pacing percentage: 90% METAL FORGER'S ASSISTANT paced Events: Presenting rhythm: atrial paced/biventricular paced Frequent PVC's Impression Normal device function Follow Up As per schedule - in-clinic and remote ALBER SEALS MD 06/25/21 Alber Seals MD IMPLANTABLE CARDIAC DEVICE documented in this encounter Visit Diagnoses Diagnosis Cardiomyopathy, primary Other primary cardiomyopathies documented in this encounter Care Teams Tutoring Assistant Relationship Specialty Start Date End Date Donny Cooper MD [address] [place] [address] PCP - General Family Medicine 02/25/19 documented as of this encounter
--- OUTSIDE RECORDS SUMMARY | 2023-12-15 08:22 | XMS_ITS | Encounter Summary ---
Author Organization [facility] [place] [address] Care Team Providers Care Salesforce Specialist Name Role Phone Clem Olvera MD Primary Care Provider [phone] Reason for Visit * Reason Comments Follow Up Fracture SP PATELLA FX DO12/12 DOI 03/30/10 Encounter Details Date Type Department Care Team (Late st Contact Info) Description 04/09/2011 1:30 PM EST Office [place] [address] Jairon Gustafson MD [facility] [place] [address] Jose Francisco Bee PA [facility] [place] [address] Patella fracture (Primary Dx) Discharge Disposition: Home [...] AM EDT Hospital Encounter Non-[place]vasive [place] [address] Arrived documented as of this encounter Visit Diagnoses Diagnosis Patella fracture- Primary Closed fracture of patella documented in this encounter Care Teams Salesforce Specialist Relationship Specialty Start Date End Date Clem Olvera MD [address] [place] [address] PCP - General 04/09/11 02/24/19 documented as of this encounter
--- OUTSIDE RECORDS SUMMARY | 2023-12-15 08:22 | XMS_ITS | Encounter Summary ---
Author Organization [facility] [place] [address] Care Team Providers Care Felt Hat Steamer Name Role Phone Donny Cooper MD Primary Care Provider [phone] Encounter Details Date Type Department Care Team (Latest Contact Info) Description 10/03/2022 10:00 AM EDT Office Visit Cardiology at [address] [address] Eleno No PA [facility] [place] [address] Cardiomyopathy, primary; Presence of cardiac resynchronization therapy defibrillator (SALES EXECUTIVE INSURANCE-D); Diaphragmatic stimulation by cardiac pacemaker, initial encounter [...] original note were not included. Cardiac Device SALES EXECUTIVE INSURANCE-D Programming Evaluation Nabil Iglesias [id number] 10/03/2022 History: Mr. Iglesias is a pleasant [...] OFF Pacing Mode: DDD 60/130/120 Presenting EGMs: -BP/-HANDLE ROUNDER OPERATOR Underlying Rhythm: CHB with no obvious [...] AM EDT Hospital Encounter [place] [address] Arrived documented as of this encounter Procedures Procedure Name Priority Date/Time Associated Diagnosis Comments EKG 12-LEAD Routine 10/03/2022 11:00 AM EDT Cardiomyopathy, primary Presence of cardiac resynchronization therapy defibrillator (SALES EXECUTIVE INSURANCE-D) Diaphragmatic stimulation by cardiac pacemaker, initial encounter documented in this encounter Results * EKG 12 Lead (10/03/2022 11:00 AM EDT) Ventricular rate 74 BPM MUSE SYSTEM Atrial Rate 74 BPM MUSE SYSTEM P-R Interval 154 ms MUSE SYSTEM QRS Duration 162 ms MUSE SYSTEM Q-T Interval 470 ms MUSE SYSTEM QTC Calculated (Bezet) 521 ms MUSE SYSTEM Calculated P Irvine 30 degrees MUSE SYSTEM Calculated R Irvine -98 degrees MUSE SYSTEM Calculated T [place] 41 degrees MUSE SYSTEM INTERPRETATION Atrial-sense d [...] cardiomyopathies Presence of cardiac resynchronization therapy defibrillator (SALES EXECUTIVE INSURANCE-D) Diaphragmatic stimulation by cardiac pacemaker, initial encounter documented in this encounter Care Teams Felt Hat Steamer Relationship Specialty Start Date End Date Donny Cooper MD [address] [place] [address] PCP - General Family Medicine 02/25/19 documented as of this encounter
--- OUTSIDE RECORDS SUMMARY | 2023-12-15 08:22 | XMS_ITS | Encounter Summary ---
Author Organization [facility] [place] [address] Care Team Providers Care Memory Care Program Director Name Role Phone Marques Martinez MD Primary Care Provider [phone] Encounter Details Date Type Department Care Team (Late st Contact Info) Description 10/09/2010 11:35 AM EDT - 10/09/2010 11:59 PM EDT Hospital Encounter XRay at [address] [place] [address] Social History Tobacco Use Types Packs/Day Years [...] AM EDT Hospital Encounter Non-Invasive [place] [address] Arrived documented as of this encounter Visit Diagnoses Not on filedocumented in this encounter Care Teams Memory Care Program Director Relationship Specialty Start Date End Date Maruqes Martinez MD [address] [place] [address] PCP - General 04/01/10 04/08/11 documented as of this encounter
--- OUTSIDE RECORDS SUMMARY | 2023-12-15 08:22 | XMS_ITS | Encounter Summary ---
Author [facility] [place] [address] Care Team Providers Care Snake Charmer Name Role Phone Marques Martinez MD Primary Care Provider [phone] Encounter Details Date Type Department Care Team (Late st Contact Info) Description 09/11/2010 Orders [place] [address] Jairon Fenton MD [facility] DR [place] [address] Fracture of patella, left, closed (Primary Dx) [...] AM EDT Hospital Encounter [place] [address] Arrived documented as of this encounter Visit Diagnoses Diagnosis Fracture of patella, left, closed- Primary Closed fracture of patella documented in this encounter Care Teams Snake Charmer Relationship Specialty Start Date End Date Marques Martinez MD [address] [place] [address] PCP - General 04/01/10 04/08/11 documented as of this encounter
--- OUTSIDE RECORDS SUMMARY | 2023-12-15 08:22 | XMS_ITS | Encounter Summary ---
[facility] [place] [address] Care Team Providers Care Auricular Detoxification Specialist Name Role Phone Marques Martinez MD Primary Care Provider [phone] Encounter Details Date Type Department Care Team (Late st Contact Info) Description 03/30/2010 [place] [address] Javier Barajas MD [facility] [place] [address] Social History Tobacco Use Types Packs/Day Years [...] AM EDT Hospital Encounter Non-Invasive [place] [address] Arrived documented as of this encounter Procedures [...] Jairon Fenton MD CHEMISTRY ORDERABLES [facility] * (ABNORMAL) CREATININE, SERUM (04/01/2010 6:09 AM [...] Fenton MD CHEMISTRY ORDERABLES Performing Organization Address [facility] de Phone Number CERNER CHRISTOSENNIUM * BUN (04/01/2010 6:09 AM EST) Blood Urea Nitrogen 12 10 - 20 mg/dL [facility] MILLENNIUM Blood specimen (specimen) 04/01/2010 6:09 AM EST 04/01/2010 6:09 AM EST Jairon Fenton MD CHEMISTRY ORDERABLES Performing Organization Address [facility] de Phone Number CERNER MILLENNIUM * [...] MD HEMATOLOGY ORDERABLE S Performing Organization Address [facility] de Phone Number CERNER MILLENNIUM * [...] Fenton MD CHEMISTRY ORDERABLES Performing Organization Address [facility] Phone Number CERIVIS MILLENNIUM * ELECTROLYTE PANEL (03/30/2010 6:05 PM EST) Pathologist [facility] Sodium 135 135 - 145 mmol/L [...] Fenton MD CHEMISTRY ORDERABLES Performing Organization Address [facility] Co de Phone Number CERIVIS MILLENNIUM * CREATININE, SERUM (03/30/2010 6:05 PM EST) Creatinine 0.87 0.80 - 1.50 mg/dL [facility] Est Glomerular Filtration Rate >60 >=60 [facility] Comment: The National Kidney Disease Education [...] Urea Nitrogen 18 10 - 20 mg/dL [facility] Blood specimen (specimen) 03/30/2010 6:05 PM EST 03/30/2010 6:13 PM EST Jairon Fenton MD CHEMISTRY ORDERABLES Performing Organization Address [facility] de Phone Number DEJA SEGOVIA * APTT (03/30/2010 6:05 PM EST) Partial Thromboplastin Time 26 25 - 37 sec [facility] Comment: Recommended therapeutic PTT range for full dose unfractionated heparin is 80-114 seconds. Blood specimen (specimen) 03/30/2010 6:05 PM EST 03/30/2010 6:14 PM EST Jairon Fenton MD HEMATOLOGY ORDERABLE S Performing Organization Address [facility] Phone Number DEJA SEGOVIA * PROTIME-INR (03/30/2010 6:05 PM EST) Prothrombin Time 14.2 12.3 - 14.7 sec [facility] Comment: [facility] Transfusion Committee Guidelines: INR less than 2.0, PTT less than OR equal to 43.5 seconds, or Fibrinogen greater than or equal to 100 mg/dl indicate adequate procoagulant activity for hemostasis in patients without underlying bleeding disorders. International Normalization Ratio 1.1 0.9 - 1.1 [facility] Blood specimen (specimen) 03/30/2010 6:05 PM EST 03/30/2010 6:14 PM EST Jairon Fenton MD HEMATOLOGY ORDERABLE S Performing Organization Address [facility] de Phone Number DEJA SEGOVIA * [...] Standard Deviation 44.2 35.0 - 46.0 fL [facility] RDW coefficient of variation 13.1 10.9 - 14.4 % [facility] Mean Platelet Volume 10.6 9.0 - 12.0 fL [facility] Blood specimen (specimen) 03/30/2010 6:05 PM EST 03/30/2010 6:13 PM EST Jairon Fenton MD HEMATOLOGY ORDERABLE S Performing Organization Address [facility] Co de Phone Number [facility] * REFLEX LAB-ANTIBODY SCREEN (03/30/2010 3:17 PM EST) [facility] Ab Screen Interp Negative [facility] Expires at [id number] on: [id number] [facility] Blood specimen (specimen) 03/30/2010 3:17 PM EST 03/30/2010 3:17 PM EST Javier Barajas MD BLOOD BANK LAB ORDER PRECIOUS Performing Organization Address [facility] Co de Phone Number [facility] * REFLEX LAB-ABO/RH (03/30/2010 3:17 PM EST) [facility] ABORH Type A Pos [facility] Blood specimen (specimen) 03/30/2010 3:17 PM EST 03/30/2010 3:17 PM EST Javier Barajas MD BLOOD BANK LAB ORDER PRECIOUS Performing Organization Address [facility] Co de Phone Number [facility] * ELECTROLYTE PANEL (03/30/2010 2:50 PM EST) [facility] Sodium 135 135 - 145 mmol/L [facility] Potassium 4.3 3.5 - 5.0 mmol/L [facility] Comment: Please note: ??Patients with WBC [...] Barajas MD CHEMISTRY ORDERABLES Performing Organization Address [facility] Phone Number [facility] * BUN (03/30/2010 2:50 PM EST) Blood Urea Nitrogen 18 10 - 20 mg/dL [facility] Blood specimen (specimen) 03/30/2010 2:50 PM EST 03/30/2010 3:05 PM EST Javier Barajas MD CHEMISTRY ORDERABLES Performing Organization Address [facility] Phone Number [facility] * GLUCOSE, RANDOM (03/30/2010 2:50 PM EST) Glucose 95 <=199 mg/dL [facility] Comment:Diabetes: >=200 mg/d L plus symptoms Blood specimen (specimen) 03/30/2010 2:50 PM EST 03/30/2010 3:05 PM EST Javier Barajas MD CHEMISTRY ORDERABLES Performing Organization Address [facility] Phone Number [facility] * APTT (03/30/2010 2:50 PM EST) Partial Thromboplastin Time 25 25 - 37 sec [facility] Comment: Recommended therapeutic PTT range for full dose unfractionated heparin is 80-114 seconds. Blood specimen (specimen) 03/30/2010 2:50 PM EST 03/30/2010 3:06 PM EST Javier Barajas MD HEMATOLOGY ORDERABLE S Performing Organization Address [facility] Phone Number [facility] * PROTIME-INR (03/30/2010 2:50 PM EST) Prothrombin Time 14.1 12.3 - 14.7 sec [facility] Comment: [facility] Transfusion Committee Guidelines: INR less than [...] on filedocumented in this encounter Care Teams Auricular Detoxification Specialist Relationship Specialty Start Date End Date Marques Martinez MD [address] [place] [address] PCP - General 04/01/10 04/08/11 documented as of this encounter
--- OUTSIDE RECORDS SUMMARY | 2023-12-15 08:22 | XMS_ITS | Encounter Summary ---
Author Organization [facility] [place] [address] Care Team Providers Care Surface Room Shop Optician Name Role Phone Marques Martinez MD Primary Care Provider [phone] Encounter Details Date Type Department Care Team (Late st Contact Info) Description 06/12/2010 2:10 PM EST Office [place] [address] Jairon Fenton MD [facility] DR [place] [address] Discharge Disposition: Home Social History Tobacco Use [...] AM EDT Hospital Encounter Non-[place] [address] Arrived documented as of this encounter Visit Diagnoses Not on filedocumented in this encounter Care Teams Surface Room Shop Optician Relationship Specialty Start Date End Date Marques Martinez MD [address] [place] [address] PCP - General 04/01/10 04/08/11 documented as of this encounter
--- OUTSIDE RECORDS SUMMARY | 2023-12-15 08:22 | XMS_ITS | Encounter Summary ---
Author Organization Formerly [facility] [place] [address] Care Team Providers Care Carpenter Supervisor Wooden Ship Name Role Phone Donny Cooper MD Primary Care Provider [phone] Encounter Details Date Type Department Care Team (Latest Contact Info) Description 12/18/2020 11:57 AM EDT - 12/18/2020 11:59 PM EDT Hospital Encounter Non-[place] [address] Maged Arguelles MD [facility] [place] [address] Cardiomyopathy, primary Discharge Disposition: Home Social History [...] Hospital Encounter Non-[place] [address] Arrived documented as of this encounter Procedures Procedure Name Priority Date/Time Associated Diagnosis Comments ICD INTERROGATION 3 MONTH Routine 12/18/2020 12:00 PM EDT Cardiomyopathy, primary documented in this encounter Results * ICD INTERROGATION 3 MONTH (12/18/2020 12:00 PM EDT) Anatomical Region Laterality Modality Other Narrative 12/23/2020 11:08 PM EDT MDT CHIEF OPTOMETRY SERVICE-D remote reviewed. Normal device function. Inadequate CHIEF OPTOMETRY SERVICE at 80%. Maged Arguelles MD [facility] Cardiac Electrophysiology 12/23/2020 11:06 PM Maged Arguelles MD IMPLANTABLE CARDIAC DEVICE documented in this encounter Visit Diagnoses Diagnosis Cardiomyopathy, primary Other primary cardiomyopathies documented in this encounter Care Teams Carpenter Supervisor Wooden Ship Relationship Specialty Start Date End Date Donny Cooper MD [address] [facility] [address] [place] [address] PCP - General Family Medicine 02/25/19 documented as of this encounter
--- OUTSIDE RECORDS SUMMARY | 2023-12-15 08:22 | XMS_ITS | Encounter Summary ---
[place] [address] Care Team Providers Care Phys Therapist Name Role Phone Donny Cooper MD Primary Care Provider [phone] Encounter Details Date Type Department Care Team (Latest Contact Info) Description 07/07/2022 10:00 AM EST - 07/07/2022 11:59 PM EST Hospital Encounter Non-Invasive [place] [address] Discharge Disposition: Home Social History Tobacco Use [...] AM EDT Hospital Encounter Non-Invasive [place] [address] Arrived documented as of this [...] on filedocumented in this encounter Care Teams Phys Therapist Relationship Specialty Start Date End Date Donny Cooper MD [address] [place] [address] PCP - General Family Medicine 02/25/19 documented as of this encounter
--- OUTSIDE RECORDS SUMMARY | 2023-12-15 08:22 | XMS_ITS | Encounter Summary ---
Author Organization [facility]ly [facility] [place] [address] Care Team Providers Care Director Of Cardiac Rehabilitation Name Role Phone Marques Martinez MD Primary Care Provider Encounter Details Date Type Department Care Team (Late st Contact Info) Description 05/01/2010 3:10 PM EST Office [place] [id number] Jairon Fenton MD [facility] DR ORTHOPAEDIC [place] [address] Discharge Disposition: Home Social History Tobacco Use [...] AM EDT Hospital Encounter Non-[place] [address] Arrived documented as of this encounter Visit Diagnoses Not on filedocumented in this encounter Care Teams Director Of Cardiac Rehabilitation Relationship Specialty Start Date End Date Marques Martinez MD [address] [place] [address] PCP - General 04/01/10 04/08/11 documented as of this encounter
--- OUTSIDE RECORDS SUMMARY | 2023-12-15 08:22 | XMS_ITS | Encounter Summary ---
Author Organization Formerly [facility] [place] [address] Care Team Providers Care Instructional Support Technician Name Role Phone Donny Cooper MD Primary Care Provider [phone] Encounter Details Date Type Department Care Team (Late st Contact Info) Description 07/26/2019 Notes Only Cardiology at [address] [address] Maged Arguelles MD [facility] [place] [address] Social History Tobacco Use Types Packs/Day Years [...] his Medtronic biventricular ICD is reviewed. Suboptimal DRY GOODS CLERK at 84%. Normal device function. Awaiting Holter to assess PVC burden. Maged Arguelles MD [facility] Cardiac Electrophys[facility] 07/26/2019 9:04 AM documented in this encounter Plan of Treatment Upcoming Encounters Date Type Department Care Team (Late st Contact Info) Description 02/02/2024 10:00 AM EDT Hospital Encounter Non-Invasive [place] [address] Arrived documented as of this encounter Visit Diagnoses Not on filedocumented in this encounter Care Teams Instructional Support Technician Relationship Specialty Start Date End Date Donny Cooper MD [address] [place] [address] PCP - General Family Medicine 02/25/19 documented as of this encounter
--- OUTSIDE RECORDS SUMMARY | 2023-12-15 08:22 | XMS_ITS | Encounter Summary ---
[place] [address] Care Team Providers Care Behavioral Modification Assistant Name Role Phone Donny Cooper MD Primary Care Provider [phone] Encounter Details Date Type Department Care Team (Late st Contact Info) Description 03/17/2019 Telephone Cardiology at [address] [address] Sheri Quinn LNA Social History [...] AM EDT Hospital Encounter [place] [address] Arrived documented as of this encounter Visit Diagnoses Not on filedocumented in this encounter Care Teams Behavioral Modification Assistant Relationship Specialty Start Date End Date Donny Cooper MD [address] [place] [address] PCP - General Family Medicine 02/25/19 documented as of this encounter
--- OUTSIDE RECORDS SUMMARY | 2023-12-15 08:22 | XMS_ITS | Encounter Summary ---
[place] [address] Care Team Providers Care Eyeglass Frame Truer Name Role Phone Donny Cooper MD Primary Care Provider [phone] Encounter Details Date Type Department Care Team (Latest Contact Info) Description 04/08/2022 10:00 AM EST - 04/08/2022 11:59 PM [facility] Hospital Encounter [place] [address] Discharge Disposition: Home Social History Tobacco Use [...] AM EDT Hospital Encounter Non-[place] [address] Arrived documented as of this [...] on filedocumented in this encounter Care Teams Eyeglass Frame Truer Relationship Specialty Start Date End Date Donny Cooper MD [address] [place] [address] PCP - General Family Medicine 02/25/19 documented as of this encounter
--- OUTSIDE RECORDS SUMMARY | 2023-12-15 08:22 | XMS_ITS | Encounter Summary ---
[place] [address] Care Team Providers Care Tool And Die Maker/Designer Name Role Phone Donny Cooper MD Primary Care Provider [phone] Encounter Details Date Type Department Care Team (Latest Contact Info) Description 10/05/2022 10:00 AM EDT - 10/05/2022 11:59 PM EDT Hospital Encounter [place] [address] Discharge Disposition: Home Social History Tobacco Use [...] AM EDT Hospital Encounter [place] [address] Arrived documented as of this encounter Procedures [...] on filedocumented in this encounter Care Teams Tool And Die Maker/Designer Relationship Specialty Start Date End Date Donny Cooper MD [address] [place] [address] PCP - General Family Medicine 02/25/19 documented as of this encounter
--- OUTSIDE RECORDS SUMMARY | 2023-12-15 08:22 | XMS_ITS | Encounter Summary ---
[place] [address] Care Team Providers Care Hvac Project Manager Name Role Phone Marques Martinez MD Primary Care Provider [phone] Encounter Details Date Type Department Care Team (Late st Contact Info) Description 10/03/2010 [place] [address] Mairna Orosco, JADON Social History Tobacco Use Types [...] AM EDT Hospital Encounter Non-Invasive [place] [address] Arrived documented as of this encounter Visit Diagnoses Not on filedocumented in this encounter Care Teams Hvac Project Manager Relationship Specialty Start Date End Date Marques Martinez MD [address] [place] [address] PCP - General 04/01/10 04/08/11 documented as of this encounter
--- OUTSIDE RECORDS SUMMARY | 2023-12-15 08:22 | XMS_ITS | Encounter Summary ---
Author Organization [facility] [place] [address] Care Team Providers Care Ppap Coordinator Name Role Phone Donny Cooper MD Primary Care Provider [phone] Encounter Details Date Type Department Care Team (Latest Contact Info) Description 06/13/2020 12:35 PM EST - 06/13/2020 11:59 PM EST Hospital Encounter [place] [address] Alber Seals MD [facility] [place] [address] Cardiomyopathy, primary Discharge Disposition: Home Social History [...] AM EDT Hospital Encounter Non-[place] [address] Arrived documented as of this encounter Procedures Procedure Name Priority Date/Time Associated Diagnosis Comments ICD INTERROGATION 3 MONTH Routine 06/13/2020 12:36 PM EST Cardiomyopathy, primary documented in this encounter Results * ICD INTERROGATION 3 MONTH (06/13/2020 12:36 PM EST) Anatomical Region Laterality Modality Other Narrative 06/14/2020 10:38 AM EST Cardiac Device Remote Monitoring Report Summary Medtronic iPerceptions 06/14/20 Device: PLASTERER JOURNEYMAN-D Model: VIVA QUAD Battery: 2.96 v, estimated longevity 3 years, 11 months Pacing percentage: 78% ventricular paced Events: The presenting rhythm is atrial paced with biventricular pacing and frequent ventricular premature contractions No significant arrhythmias Impression Normal device function; suboptimal PLASTERER JOURNEYMAN pacing likely secondary to frequent PVCs. Should consider in clinic follow-up for further evaluation Follow Up As per schedule - in-clinic and remote ALBER SEALS MD Alber Seals MD IMPLANTABLE CARDIAC DEVICE documented in this encounter Visit Diagnoses Diagnosis Cardiomyopathy, primary Other primary cardiomyopathies documented in this encounter Care Teams Ppap Coordinator Relationship Specialty Start Date End Date Donny Cooper MD [address] [place] [address] PCP - General Family Medicine 02/25/19 documented as of this encounter
--- OUTSIDE RECORDS SUMMARY | 2023-12-15 08:22 | XMS_ITS | Encounter Summary ---
[place] [address] Care Team Providers Care Sales Analytics Manager Name Role Phone Donny Cooper MD Primary Care Provider [phone] Encounter Details Date Type Department Care Team (Latest Contact Info) Description 08/06/2023 10:00 AM EDT - 08/06/2023 11:59 PM EDT Hospital Encounter [place] [address] Discharge Disposition: Home Social History Tobacco Use [...] AM EDT Hospital Encounter Non-[place] [address] Arrived documented as of this encounter Visit Diagnoses Not on filedocumented in this encounter Care Teams Sales Analytics Manager Relationship Specialty Start Date End Date Donny Cooper MD [address] [place] [address] PCP - General Family Medicine 02/25/19 documented as of this encounter
--- OUTSIDE RECORDS SUMMARY | 2023-12-15 08:22 | XMS_ITS | Encounter Summary ---
[place] [address] Care Team Providers Care Signs Cleaner Name Role Phone Donny Cooper MD Primary Care Provider [phone] Encounter Details Date Type Department Care Team (Latest Contact Info) Description 04/03/2023 10:00 AM EST - 04/03/2023 11:[address] [facility] Hospital Encounter [place] [address] Discharge Disposition: Home Social History Tobacco Use [...] AM EDT Hospital Encounter [place] [address] Arrived documented as of this [...] on filedocumented in this encounter Care Teams Signs Cleaner Relationship Specialty Start Date End Date Donny Cooper MD [address] [place] [address] PCP - General Family Medicine 02/25/19 documented as of this encounter
--- OUTSIDE RECORDS SUMMARY | 2023-12-15 08:22 | XMS_ITS | Encounter Summary ---
[place] [address] Care Team Providers Care Medical Equipment Technician Name Role Phone Donny Cooper MD Primary Care Provider [phone] Encounter Details Date Type Department Care Team [...] AM EDT Hospital Encounter Non-Invasive [place] [address] Arrived documented as of this encounter Visit Diagnoses Not on filedocumented in this encounter Care Teams Medical Equipment Technician Relationship Specialty Start Date End Date Donny Cooper MD [address] [place] [address] PCP - General Family Medicine 02/25/19 documented as of this encounter
--- OUTSIDE RECORDS SUMMARY | 2023-12-15 08:22 | XMS_ITS | Encounter Summary ---
[place] [address] Care Team Providers Care Quencher Operator Name Role Phone Marques Martinez MD Primary Care Provider Encounter Details Date Type Department Care Team (Late st Contact Info) Description 05/01/2010 2:40 PM EST Procedure visit [place] [address] Social History Tobacco Use Types Packs/Day Years [...] AM EDT Hospital Encounter Non-[place] [address] Arrived documented as of this encounter Visit Diagnoses Not on filedocumented in this encounter Care Teams Quencher Operator Relationship Specialty Start Date End Date Marques Martinez MD [address] [place] [address] PCP - General 04/01/10 04/08/11 documented as of this encounter
--- OUTSIDE RECORDS SUMMARY | 2023-12-15 08:22 | XMS_ITS | Encounter Summary ---
[place] [address] Care Team Providers Care Project Management Professor Name Role Phone Donny Cooper MD Primary Care Provider [phone] Encounter Details Date Type Department Care Team (Late st Contact Info) Description 06/14/2020 Telephone Cardiology at [address] [address] Nhung Briggs Social History Tobacco Use Types [...] He would like to be seen at [facility]. Email sent to Brittaney Hernandez at [facility] asking her to reach out to pt to set up the appt with either Dr. Arguelles or LANG Albert. Nhung Allen Electrophysiology Scheduling [id number] option 2 documented in this encounter Plan of Treatment Upcoming Encounters Date Type Department Care Team (Late st Contact Info) Description 02/02/2024 10:00 AM EDT Hospital Encounter Non-Invasive [place] [address] Arrived documented as of this encounter Visit Diagnoses Not on filedocumented in this encounter Care Teams Project Management Professor Relationship Specialty Start Date End Date Donny Cooper MD [address] [place] [address] PCP - General Family Medicine 02/25/19 documented as of this encounter
--- OUTSIDE RECORDS SUMMARY | 2023-12-15 08:22 | XMS_ITS | Encounter Summary ---
[place] [address] Care Team Providers Care Trail Construction Worker Name Role Phone Marques Martinez MD Primary Care Provider [phone] Encounter Details Date Type Department Care Team (Late st Contact Info) Description 06/12/2010 2:00 PM EST Procedure visit [place] [address] Social History Tobacco Use Types Packs/Day Years [...] AM EDT Hospital Encounter Non-[place] [address] Arrived documented as of this encounter Visit Diagnoses Not on filedocumented in this encounter Care Teams Trail Construction Worker Relationship Specialty Start Date End Date Marques Martinez MD [address] [place] [address] PCP - General 04/01/10 04/08/11 documented as of this encounter
--- OUTSIDE RECORDS SUMMARY | 2023-12-15 08:22 | XMS_ITS | Encounter Summary ---
[place] [address] Care Team Providers Care Panel Assembler Name Role Phone Donny Cooper MD Primary Care Provider [phone] Encounter Details Date Type Department Care Team (Latest Contact Info) Description 01/03/2023 10:00 AM EDT - 01/03/2023 11:59 PM EDT Hospital Encounter [place] [address] Discharge Disposition: Home Social History Tobacco Use [...] AM EDT Hospital Encounter Non-[place] [address] Arrived documented as of this encounter Procedures [...] on filedocumented in this encounter Care Teams Panel Assembler Relationship Specialty Start Date End Date Donny Cooper MD [address] [place] [address] PCP - General Family Medicine 02/25/19 documented as of this encounter
--- OUTSIDE RECORDS SUMMARY | 2023-12-17 08:00 | XMS_ITS | Encounter Summary ---
[place] [address] Care Team Providers Care Senior Producer Name Role Phone Marques Martinez MD Primary Care Provider [phone] Encounter Details Date Type Department Care Team (Late st Contact Info) Description 10/03/2010 Abstract [place] [address] Marina Orosco, JADON Social History Tobacco Use [...] AM EDT Hospital Encounter Non-[place] [address] Arrived documented as of this encounter Visit Diagnoses Not on filedocumented in this encounter Care Teams Senior Producer Relationship Specialty Start Date End Date Marques Martinez MD [address] [place] [address] PCP - General 04/01/10 04/08/11 documented as of this encounter
--- OUTSIDE RECORDS SUMMARY | 2023-12-17 08:00 | XMS_ITS | Encounter Summary ---
Author Organization [facility] Address [address] [place] [address] Care Team Providers Care Ophthalmic Nurse Name Role Phone Clem Olvera MD Primary Care Provider [phone] Reason for Visit * Reason Onset Date Comments Appointment Related 10/23/2016 Check for fo llow up of pacer Encounter Details Date Type Department Care Team ([facility] Contact Info) Description 10/23/2016 Telephone [facility] Cardiology - [address] [place] [address] Pacemaker, Pace Appointment Related (Check [...] that Nabil had his pacemaker checked in [place] where they are for the winter. They have some back and are being followed by Dr. Hurd at [facility]. documented in this encounter Plan of Treatment Not on file documented as of this encounter Visit Diagnoses Not on filedocumented in this encounter Care Teams Ophthalmic Nurse Relationship Specialty Start Date End Date Clem Olvera MD [address] [place] [address] PCP - General 12/18/15 documented as of this encounter
--- OUTSIDE RECORDS SUMMARY | 2023-12-17 08:00 | XMS_ITS | Encounter Summary ---
Author Organization [facility] Address [address] [place] [address] Care Team Providers Care Director Of Therapy Services Name Role Phone Clem Olvera MD Primary Care Provider [phone] Reason for Referral * (Routine) - Closed Specialty Diagnoses / Procedures Referred By Pedro madera Referred To Contact Beatrice De La Garza NP [address] [place] [phone] Referral ID Status Reason Start Date Expiration Date V isits Requested Visits Authorized [id number] Closed Specialty Services Required 02/27/2016 1 1 Comments You must contact us if we have not contacted you or you have missed your scheduled appointment. If you have any nursing questions, please don't hesitate to call the Cardiac Arrhythmia Service at [facility] at or , extension [phone]. For any scheduling of appointments, please call [phone] or , extension [phone]. . * (Routine) - Closed Specialty Diagnoses / Procedures Referred By Pedro madera Referred To Contact Beatrice De La Garza NP [address] [phone] Referral ID Status Reason Start Date Expiration Date V isits Requested Visits Authorized [id number] Closed Specialty Services Required 02/27/2016 1 1 Comments You have a pre existing appointment with Dr. Olvera on March 05 at 2:00, please have Dr. Olvera check your incision at that visit. * (Routine) - Closed Specialty Diagnoses / Procedures Referred By Contbecca t Referred To Contact Beatrice De La Garza NP [address] [phone] Referral ID Status Reason Start Date Expiration Date V isits Requested Visits Authorized [id number] Closed Specialty Services Required 02/27/2016 1 1 [...] [facility] Cardiology is located at [address] [facility] in [place] -Clinics are also held in [facility], and [place], [place] and [facility]. If you live in those areas, we will make arrangements for follow-up appointments in one of those clinics.. Encounter Details Date Type Department Care Team (Late st Contact Info) Description 02/27/2016 6:30 EDT - 02/28/2016 13:39 EDT Hospital Encounter [facility] Cardiac/Telemetry Unit [address] [place] [address] Gulshan Drummond MD PhD [address] [phone] Gulshan Montoya Sa, MD [address] [facility] [address] [place] [phone] AICD lead malfunction, subsequent encounter; ICD [...] EF of 20-25% status post silent inferior WA in the early . 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 He had heart failure symptoms that started around May 2013, when he was in [place], [place]. This triggered major cardiac workup including [...] then underwent a device upgrade to a RESIDENTIAL MANAGER-D device with biventricular pacing for his EF [...] clinic at [facility] in [place]. Continued high pacing threshold on the epicardial [...] and plans to follow up with his Kitchen Food Server in [place] in 6-8 weeks for which he will arrange once he has arrived in [place]. He has been provided with the implant [...] Follow Up Appointments Scheduled with [facility] Appointments Outside of [facility] We Will Schedule Studies We Will Schedule Appointments We Recommend but have not been Scheduled Beatrice De La Garza NP 02/27/2016 10:59 Associated attestation - Gulshan Montoya Sa, MD - 02/28/2016 1519 EDT Attending Attestation: I saw and evaluated the patient. I discussed the case with the resident/CARBON PLANT GRINDER/fellow and agree with the findings and plan as documented above. Gulshan bullock Sa, MD Cardiac Electrophysiology documented in this encounter Discharge Instructions * Appointments* Beatrice De La Garza NP - 02/27/2016 11:[address] Olvera on 03/05/16 at 2:00 as previously scheduled for a routine visit and for a check of your incision. Follow up with Giselle Hill NP at [facility] in May, you will be notified [...] Notes * Lou Alfonso RN - 02/28/2016 7770 EDT Pt awaiting discharge. IV and tele was removed by primary nurse. This RN administered flu shot and provided flu information sheet. AVS and medications reviewed by RN with patient and . AVS statedcoreg was 3.25mg BID, which pt states no, they must have copied it down wrong. I'm not doing that.We've been through this in [place]. It makes me pass out. RN suggested checking with team, which pt denied and states I wont take it twice a day. He did agree to review this medication with his marketing services rep and plans to remain on his home dosing, which was in the morning. He received dose this am. Ptleft via wheelchair with . * Beatrice Rodriguez - 02/28/2016 1329 EDT Brief visit with patient and as they were being discharged. Patient states he is independent in self care and home management. He feels well supported by friends and neighbors. Patient has Medicare and [facility]. [email or web address] in [facility]. No needs identified at time of discharge. will provide transportation. Beatrice Rodriguez RN Case Manager #[id number] documented in this encounter H&P Notes * Navdeep Hurd MD - 02/27/2016 0830 EDT Cardiology Admitting H&P Admit Date: 02/27/2016 Date of Service: 02/27/2016 PCP: Clem Olvera Code Status: Full Code Chief Complaint: FINN, device battery depletion, high pacing threshold on epicardial lead HPI: 74-year-old man with coronary artery disease and ischemic cardiomyopathy status post silent inferior WA in the early . 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 He had heart failure symptoms that started around May 2013, when he was in [place], [place]. This triggered major cardiac workup including [...] point, his device was upgraded to a RESIDENTIAL MANAGER-D device with biventricular pacing. By the patient's [...] clinic at [facility] in [place]. Continued high pacing threshold on the epicardial LV lead has caused a very rapid battery depletion. Dr. David Adams in [place] recommended against lead extraction and reimplant as [...] ??? Pacemaker insertion 2002 2013 second pacemaker [facility] Social History Family History Social History Substance Use Topics ??? Smoking status: Former Smoker Years: 35.00 Quit date: 1989 ??? Smokeless tobacco: Not on file ??? Alcohol use 6.6 oz/week 6 Cans of beer, 5 Glasses of wine per week , lives with , retired. Spends leong in [place]. Spends the chery in [place], [place]. Quit smoking in 1990. Has 2 [...] and ischemic cardiomyopathy status post silent inferior [place] in the early . Also diagnosed with [...] point, his device was upgraded to a RESIDENTIAL MANAGER-D device with biventricular pacing with a surgically [...] EST) 03/12/2016 12:4 3 EST Scan 2 Ecological Modeler PROCEDURE/MINOR JUDD GICAL ORDERABLES * ECG REPORT - SCANNED (03/04/2016 14:06 EDT) 03/04/2016 14:0 6 EDT Scan 2 Ecological Modeler PROCEDURE/MINOR JUDD GICAL ORDERABLES * ECG REPORT - SCANNED (03/04/2016 14:06 EDT) 03/04/2016 14:0 6 EDT Scan 2 Ecological Modeler PROCEDURE/MINOR JUDD GICAL ORDERABLES * IMPLANT RECORD - SCANNED (03/04/2016 14:06 EDT) 03/04/2016 14:0 6 EDT Scan 2 Ecological Modeler PROCEDURE/MINOR JUDD GICAL ORDERABLES * ECG REPORT - SCANNED (03/01/2016 8:58 EDT) 03/01/2016 8:58 EDT Scan 2 Ecological Modeler PROCEDURE/MINOR JUDD GICAL ORDERABLES * ECG REPORT - SCANNED (03/01/2016 8:58 EDT) 03/01/2016 8:58 EDT Scan 2 Ecological Modeler PROCEDURE/MINOR JUDD GICAL ORDERABLES * CHEST PA [...] IMAGING ORDERABLES * HEMAGRAM (02/28/2016 5:44 EDT) [facility] WBC 9.84 4.0 - 10.4 K/cmm 02/28/2016 6:26 EDT [facility] RBC 4.42 4.36 - 5.78 M/cmm 02/28/2016 6:26 T [facility] Hemoglobin 14.2 13.8 - 17.3 gm/dl 02/28/2016 6:26 [facility] HCT 40.9 39.5 - 50.2 % 02/28/2016 6:26 [facility] MCV 93 81 - 95 fl 02/28/2016 6:26 [facility] MCH 32.1 27.6 - 33.0 pg 02/28/2016 6:26 [facility] MCHC 34.7 32.8 - 36.4 gm/dl 02/28/2016 6:26 [facility] RDW-CV 13.1 11.8 - 14.1 % 02/28/2016 6:26 [facility] RDW-SD 44.6 36.5 - 45.9 fl 02/28/2016 6:26 [facility] PLT 151 141 - 377 K/cmm 02/28/2016 6:26 [facility] MPV 11.2 9.5 - 12.7 fl 02/28/2016 6:26 [facility] Blood specimen (specimen) BLOOD SPECIMEN / Unknown 02/28/2016 5:44 EDT 02/28/2016 6:13 EDT Beatrice De La Garza NP HEMATOLOGY & PF4 ORDERABLES [facility] [address] [place] [address] * (ABNORMAL) CREATININE (02/28/2016 5:44 EDT) Creatinine 0.65(L) 0.66 - 1.25 mg/dl 02/28/2016 6:48 EDT [facility] GFR, Calculated 95 >60 ml/min/1.7 3m2 02/28/2016 6:48 EDT [facility] Comment: eGFR calculated using CKD-EPI equation for non Americans. Multiply eGFR by 1.16 for Americans. Blood specimen (specimen) BLOOD SPECIMEN / Unknown 02/28/2016 5:44 EDT 02/28/2016 6:13 EDT Beatrice De La Garza NP CHEMISTRY & B LOOD GAS ORDERABLES Performing Organization Address [facility]/ZIP Co de Phone Number [facility] [address] [place] [address] * BUN (02/28/2016 5:44 EDT) BUN 14 10 - 26 mg/dl 02/28/2016 6:48 EDT [facility] Blood specimen (specimen) BLOOD SPECIMEN / Unknown 02/28/2016 5:44 EDT 02/28/2016 6:13 EDT Beatrice De La Garza CARBON PLANT GRINDER CHEMISTRY & B LOOD GAS ORDERABLES Performing Organization Address [facility] Co de Phone Number [facility] [address] [place] [address] * ELECTROLYTES (02/28/2016 5:44 EDT) Sodium 138 136 - 145 mEq/L 02/28/2016 6:48 EDT [facility] Potassium 4.7 3.5 - 5.0 mEq/L 02/28/2016 6:48 EDT [facility] Chloride 104 96 - 110 mEq/L 02/28/2016 6:48 EDT [facility] CO2 25 22 - 32 mEq/L 02/28/2016 6:48 EDT [facility] Comment:Note new reference r hong 02/19/16 Blood specimen (specimen) BLOOD SPECIMEN / Unknown 02/28/2016 5:44 EDT 02/28/2016 6:13 EDT Beatrice De La Garza NP CHEMISTRY & B LOOD GAS ORDERABLES [facility] [address] [place] [address] * PORTABLE CHEST 1 VIEW (02/27/2016 12:46 [...] 12:41 EDT) 02/27/2016 12:4 1 EDT Narrative [facility] E[facility] - 02/28/2016 8:57 EDT ? [facility] ? Test Date: ?2016-02-27 Pat Name: ? NABIL IGLESIAS ? Department: ?? [facility] 5 ? Room: ? MW514 Gender: ? M ?Compensation Intern: ?? [id number] : ?1940 ? Requested By: KAIN REED L Order Number: [id number] ? Reading MD: ?? BRAYAN CUENCA MD ? Measurements Intervals ?Fouke ? Rate: ? 63 ? P: ?15 DE: ? 159 ?QRS: ?234 QRSD: ? 156 [...] Date: 2016-02-27 Pat Name: NABIL IGLESIAS Department: [place] [address] Room: [facility] Gender: M Compensation Intern: [id number] : 1940 Requested By: KAIN Gallagher Order Number: [id number] Reading MD: BRAYAN CUENCA MD Measurements Intervals Fouke Rate: 63 P: 15 DE: 159 QRS: 234 QRSD: 156 T: 15 QT: 479 QTc: 493 Interpretive Statements ELECTRONIC VENTRICULAR PACEMAKER Compared to ECG 02/27/2016 08:10:34 No significant changes I reviewed the tracing and have either agreed or edited the findings inthis report. Electronically Signed On 02-28-16 08:57:02 EDT by BRAYAN BEEBE. Gulshan Drummond MD PhD CARDIA C ECG ORDERABLES [facility] EKG * PROTIME (02/27/2016 8:45 EDT) Pro Time 12.3 10.3 - 13.1 secs 02/27/2016 9:10 EDT [facility] Comment: New prothrombin t josue range effective 01/29/16 I.N.R. 1.1 0.9 - 1.1 Ratio 02/27/2016 9:10 EDT [facility] Comment: Moderate Intensity Coumadin INR = 2.0-3.0 Adjustments in anticoagulant therapy dose should be based upon the INR and NOT the Pro Time. Blood specimen (specimen) BLOOD SPECIMEN / Unknown 02/27/2016 8:45 EDT 02/27/2016 8:54 EDT Gulshan Drummond MD PhD HEMATO LOGY & PF4 ORDERABLES [facility] [address] [place] [address] * HEMAGRAM (02/27/2016 8:45 EDT) WBC 6.47 4.0 - 10.4 K/cmm 02/27/2016 8:57 EDT [facility] RBC 4.51 4.36 - 5.78 M/cmm 02/27/2016 8:57 EDT [facility] Hemoglobin 14.7 13.8 - 17.3 gm/dl 02/27/2016 8:57 EDT [facility] HCT 41.7 39.5 - 50.2 % 02/27/2016 8:57 EDT [facility] MCV 93 81 - 95 fl 02/27/2016 8:57 EDT [facility] MCH 32.6 27.6 - 33.0 pg 02/27/2016 8:57 EDT [facility] MCHC 35.3 32.8 - 36.4 gm/dl 02/27/2016 8:57 T [facility] RDW-CV 13.1 11.8 - 14.1 % 02/27/2016 8:57 EDT [facility] RDW-SD 44.0 36.5 - 45.9 fl 02/27/2016 8:57 EDT [facility] PLT 176 141 - 377 K/cmm 02/27/2016 8:57 EDT [facility] MPV 10.7 9.5 - 12.7 fl 02/27/2016 8:57 EDT [facility] Blood specimen (specimen) BLOOD SPECIMEN / Unknown 02/27/2016 8:45 EDT 02/27/2016 8:54 EDT Gulshan Drummond MD PhD HEMATO LOGY & PF4 ORDERABLES [facility] [address] [place] [address] * ELECTROLYTES (02/27/2016 8:45 EDT) Sodium 142 136 - 145 mEq/L 02/27/2016 9:13 EDT [facility] Potassium 4.7 3.5 - 5.0 mEq/L 02/27/2016 9:13 EDT [facility] Chloride 103 96 - 110 mEq/L 02/27/2016 9:13 EDT [facility] CO2 27 22 - 32 mEq/L 02/27/2016 9:13 EDT [facility] Comment:Note new reference r hong 02/19/16 Blood specimen (specimen) BLOOD SPECIMEN / Unknown 02/27/2016 8:45 EDT 02/27/2016 8:54 EDT Gulshan Drummond MD PhD CHEMIS TRY & BLOOD GAS ORDERABLES Performing Organization Address [facility] de Phone Number [facility] [address] [place] [address] * CREATININE (02/27/2016 8:45 EDT) Creatinine 0.69 0.66 - 1.25 mg/dl 02/27/2016 9:13 EDT [facility] GFR, Calculated 93 >60 ml/min/1.7 3m2 02/27/2016 9:13 EDT [facility] Comment: eGFR calculated using CKD-EPI equation for non Americans. Multiply eGFR by 1.16 for Americans. Blood specimen (specimen) BLOOD SPECIMEN / Unknown 02/27/2016 8:45 EDT 02/27/2016 8:54 EDT Gulshan Drummond MD PhD CHEMIS TRY & BLOOD GAS ORDERABLES Performing Organization Address City/[facility] Co de Phone Number [facility] [address] [place] [address] * BUN (02/27/2016 8:45 EDT) BUN 17 10 - 26 mg/dl 02/27/2016 9:13 EDT [facility] Blood specimen (specimen) BLOOD SPECIMEN / Unknown 02/27/2016 8:45 EDT 02/27/2016 8:54 EDT Gulshan Drummond MD PhD CHEMIS TRY & BLOOD GAS ORDERABLES [facility] [address] [place] [address] * EKG 12-LEAD (02/27/2016 8:08 EDT) 02/27/2016 8:08 EDT Narrative [facility] EKG - 02/28/2016 9:01 EDT ? [facility] ? Test Date: ?2016-02-27 Pat Name: ? NABIL IGLESIAS ? Department: ?? [facility] ? Room: ? HQ0648 Gender: ? M ?Compensation Intern: ?? [id number] : ?1940 ? Requested By: MARCIA Boo Order Number: [id number] ? Julia WRIGHT: ?? BRAYAN CUENCA MD ? Measurements Intervals ?Fouke ? Rate: ? 69 ? P: ?147 DE: ? 134 ?QRS: ?-67 QRSD: ? 160 [...] Pat Name: NABIL IGLESIAS Department: [facility] Room: [id number] Gender: M Compensation Intern: [id number] : 1940 Requested By: MARCIA Boo Order Number: [id number] Reading MD: BRAYAN CUENCA MD Measurements Intervals Fouke Rate: 69 P: 147 DE: 134 QRS: -67 QRSD: 160 T: -59 QT: 434 QTc: 467 Interpretive Statements ELECTRONIC ATRIAL PACEMAKER ELECTRONIC VENTRICULAR PACEMAKER Compared to ECG 02/27/2016 08:08:46 No significant changes I reviewed the tracing and have either agreed or edited the findings inthis report. Electronically Signed On 02-28-16 09:01:04 EDT by BRAYAN BEEBE. Navdeep Hurd MD CARDIAC ECG ORD ERABLES [facility] EKG documented in this encounter [...] Reason: Other - Comment: pt already took SHOWER ATTENDANT, takes other meds at HS) 921 (Given [...] Reason: Other - Comment: pt already took SHOWER ATTENDANT, takes other meds at HS)2100 (Given - Provider: Mady Bruno RN) spironolactone (ALDACTONE) tablet 12.5 mg 12.5 mg, oral, DAILY, First dose on Thu02/27/16 at 1245, Until Discontinued, Routine 1306 (Not Given - Provider: Nneka Stuart RN - Reason: Other - Comment: pt already took SHOWER ATTENDANT, takes other meds at HS)2102 (Given - Provider: Mady Bruno RN) tamsulosin (FLOMAX) capsule 0.4 mg 0.4 mg, oral, DAILY, First dose on Thu02/27/16 at 1245, Until Discontinued, Routine 1306 (Not Given - Provider: Nneka Stuart RN - Reason: Other - Comment: pt already took SHOWER ATTENDANT, takes other meds at HS) 921 (Given [...] 02/02 documented in this encounter Care Teams Director Of Therapy Services Relationship Specialty Start Date End Date Clem Olvera MD [address] [place] [address] PCP - General 12/18/15 documented as of this encounter
--- OUTSIDE RECORDS SUMMARY | 2023-12-17 08:00 | XMS_ITS | Encounter Summary ---
[place] [address] Care Team Providers Care Mill Beam Fitter Name Role Phone Donny Cooper MD Primary Care Provider [phone] Encounter Details Date Type Department Care Team (Latest Contact Info) Description 11/04/2023 10:00 AM EDT - 11/04/2023 11:59 PM EDT Hospital Encounter [place] [address] Discharge Disposition: Home Social History Tobacco Use [...] AM EDT Hospital Encounter [place] [phone] Arrived documented as of this encounter Procedures [...] on filedocumented in this encounter Care Teams Mill Beam Fitter Relationship Specialty Start Date End Date Donny Cooper MD [address] [place] [address] PCP - General Family Medicine 02/25/19 documented as of this encounter
--- OUTSIDE RECORDS SUMMARY | 2023-12-17 08:00 | XMS_ITS | Encounter Summary ---
Author Organization [facility] Address [address] [place] [address] Care Team Providers Care Training Project Manager Name Role Phone Clem Olvera MD Primary Care Provider Encounter Details Date Type Department Care Team (Late st Contact Info) Description 03/16/2019 Abstract [facility] - [facility] Cardiology Clinic [address] [place] [address] Ronal Avelar, JADON AV block, 2nd degree [...] Laterality Modality Device Narrative 03/24/2019 10:30 EST [facility] Cardiology Device Visit Radiographer Technologist: Pockethernettronic Device Type: TALENT ACQUISITION PROGRAM MANAGER-D Service: Remote ? Indication: ICMO Battery [...] Miguel Ángel George APRN Miguel Ángel George BRIM EDGE TRIMMER CV IMPLANTABLE CARDI AC DEVICE documented in this encounter Visit Diagnoses Diagnosis AV block, 2nd degree- Primary Other second degree atrioventricular block documented in this encounter Care Teams Training Project Manager Relationship Specialty Start Date End Date Clem Olvera MD [address] [place] [id number] PCP - General 12/18/15 documented as of this encounter
--- OUTSIDE RECORDS SUMMARY | 2023-12-17 08:00 | XMS_ITS | Encounter Summary ---
[place] [address] Care Team Providers Care Senior Account Clerk Name Role Phone Donny Cooper MD Primary Care Provider [phone] Encounter Details Date Type Department Care Team (Late st Contact Info) Description 06/14/2020 Telephone Cardiology at [address] [phone] Nhung Briggs Social History Tobacco Use Types [...] He would like to be seen at [facility]. Email sent to Brittaney Hernandez at [facility] asking her to reach out to pt to set up the appt with either Dr. Arguelles or LANG Albert. Nhung Allen Electrophysiology Scheduling [id number] option 2 documented in this encounter Plan of Treatment Upcoming Encounters Date Type Department Care Team (Late st Contact Info) Description 02/02/2024 10:00 AM EDT Hospital Encounter [place] [address] Arrived documented as of this encounter Visit Diagnoses Not on filedocumented in this encounter Care Teams Senior Account Clerk Relationship Specialty Start Date End Date Donny Cooper MD [address] [place] [address] PCP - General Family Medicine 02/25/19 documented as of this encounter
--- OUTSIDE RECORDS SUMMARY | 2023-12-17 08:00 | XMS_ITS | Encounter Summary ---
[place] [address] Care Team Providers Care Production Artist Name Role Phone Donny Cooper MD Primary Care Provider [phone] Encounter Details Date Type Department Care Team (Latest Contact Info) Description 08/06/2023 10:00 AM EDT - 08/06/2023 11:59 PM EDT Hospital Encounter [place] [address] Discharge Disposition: Home Social History Tobacco Use [...] AM EDT Hospital Encounter Non[place] [phone] Arrived documented as of this encounter Visit Diagnoses Not on filedocumented in this encounter Care Teams Production Artist Relationship Specialty Start Date End Date Donny Cooper MD [address] [place] [address] PCP - General Family Medicine 02/25/19 documented as of this encounter
--- OUTSIDE RECORDS SUMMARY | 2023-12-17 08:00 | XMS_ITS | Encounter Summary ---
[place] [address] Care Team Providers Care International Marketing Coordinator Name Role Phone Donny Cooper MD Primary Care Provider [phone] Encounter Details Date Type Department Care Team (Latest Contact Info) Description 10/05/2022 10:00 AM EDT - 10/05/2022 11:59 PM EDT Hospital Encounter [place] [address] Discharge Disposition: Home Social History Tobacco Use [...] AM EDT Hospital Encounter [place] [phone] Arrived documented as of this encounter Procedures Procedure Name Priority Date/Time Associated Diagnosis Comments PRO ICD INTERROGATION REMOTE UP TO 90 DAYS Routine 08/08/2022 3:17 AM EDT documented in this encounter Results * Cardiac Device Check - Remote (08/08/2022 3:17 AM EDT) Anatomical Region Laterality Modality Other 08/08/2022 3:17 AM EDT Miriam aZpata MD IMPLANTABLE CARDIAC DEVICE documented in this encounter Visit Diagnoses Not on filedocumented in this encounter Care Teams International Marketing Coordinator Relationship Specialty Start Date End Date Donny Cooper MD [address] [place] [address] PCP - General Family Medicine 02/25/19 documented as of this encounter
--- OUTSIDE RECORDS SUMMARY | 2023-12-17 08:00 | XMS_ITS | Encounter Summary ---
Author Organization [facility] [place] [address] Care Team Providers Care Aircraft Fuselage Framer Name Role Phone Donny Cooper MD Primary Care Provider [phone] Encounter Details Date Type Department Care Team (Latest Contact Info) Description 06/25/2021 3:23 PM EST - 06/25/2021 11:59 PM EST Hospital Encounter Non-Invasive [place] [address] Alber Seals MD [facility] [place] [address] Cardiomyopathy, primary Discharge Disposition: Home Social History [...] AM EDT Hospital Encounter Non-Invasive [place] [address] Arrived documented as of this encounter Procedures Procedure Name Priority Date/Time Associated Diagnosis Comments ICD INTERROGATION 3 MONTH Routine 06/25/2021 3:24 PM EST Cardiomyopathy, primary documented in this encounter Results * ICD INTERROGATION 3 MONTH (06/25/2021 3:24 PM EST) Anatomical Region Laterality Modality Other Narrative 06/25/2021 3:42 PM EST Cardiac Device Remote Monitoring Report Summary Medtronic Carelink Device: COMMUNITY CENTER WORKER-D Model: VIVA QUAD Battery: 2.95 v, estimated longevity 2 years 6 months Pacing percentage: 90% COMMUNITY CENTER WORKER paced Events: Presenting rhythm: atrial paced/biventricular paced Frequent PVC's Impression Normal device function Follow Up As per schedule - in-clinic and remote ALBER SEALS MD 06/25/21 Alber Seals MD IMPLANTABLE CARDIAC DEVICE documented in this encounter Visit Diagnoses Diagnosis Cardiomyopathy, primary Other primary cardiomyopathies documented in this encounter Care Teams Aircraft Fuselage Framer Relationship Specialty Start Date End Date Donny Cooper MD [address] [place] [address] PCP - General Family Medicine 02/25/19 documented as of this encounter
--- OUTSIDE RECORDS SUMMARY | 2023-12-17 08:00 | XMS_ITS | Referral Summary ---
Author Organization [facility] Address [address] [place] [address] Care Team Providers Care Battery Test Engineer Name Role Phone Clem Olvera MD Primary Care Provider [phone] Allergies No known active allergies Medications Medication [...] Advance Directives For more information, please contact: [phone] * Full Code (Latest Code Status on File) Date Activated Date Inactivated Comments 02/27/2016 8:49 02/28/2016 15:40 Question Answer Comments Reason for decision includes: Full code consistent with overall plan of care Who participated in the discussion? Not Discusse d Care Teams Battery Test Engineer Relationship Specialty Start Date End Date Clem Olvera MD [address] [place] [address] [id number] PCP - General 12/18/15
--- OUTSIDE RECORDS SUMMARY | 2023-12-17 08:00 | XMS_ITS | Encounter Summary ---
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 Procedures IMPLANTABLE CARDIAC DEFIBRILLATOR PROCEDURE Navdeep Hurd MD [address] [place], [place] [address]A [address] [place] [address] Referral ID Status Reason Start Date Expiration Date Visits Re quested Visits Authorized [id number] Closed 02/13/2016 1 1 Encounter Details Date Type Department Care Team (Latest Contact Info) Description 02/13/2016 Pre-Procedure Orders Encounter [facility] C[facility] [address] [place], [place] [address] Navdeep Hurd MD [address] [facility] [address] [place] [address] ICD (implantable cardioverter-defibril lator) battery [...] 8 EDT Narrative 02/27/2016 15:17 EDT *Cardiology* [address] [place] [address] Lead Revision (Report amended ) Patient: Nabil Iglesias ?Study Date: ?02/27/2016 ? Accession #: ? [id number] : ? 1940 Referring: Clem Olvera Attending: [...] 0.35 glide wire a Nick MENDOZAW 6F ([facility]) 6 mm-40 mm balloon dilation still [...] fascia. The leads were connected to a CUPOLA TAPPER-D device. Device and Lead detail in table [...] Implanted device: Medtronic - Viva Quad XT CUPOLA TAPPER-D DF4 - Serial number: [id number] Explanted device: Medtronic - Viva XT CUPOLA TAPPER-D DF4 - Serial number: [id number]. LEAD PARAMETERS + + + + + [...] + + + + + Serial number [id number] ? [id number] ?? [id number] ?? [id number] ? + + + + [...] Gulshan Drummond MD - 05/12/2016 *Cardiology* [address] [place] [address] Lead Revision (Report amended ) Patient: Nabil [...] an 0.35 glide wire a [facility] 6F ([facility]) 6 mm-40 mm balloon dilation still [...] fascia. The leads were connected to a CUPOLA TAPPER-D device. Device and Lead detail in table [...] Implanted device: Medtronic - Viva Quad XT CUPOLA TAPPER-D DF4 - Serial number: [id number] Explanted device: Medtronic - Viva XT CUPOLA TAPPER-D DF4 - Serial number: [id number]. LEAD PARAMETERS + + + + + + Lead # 1 2 3 4 + + + + + + Chamber RA RV LV LV + + + + + + Date 07/19/2002 07/18/2013 02/27/2016 07/18/2013 implanted + + + + + + Model St. Esa Medtronic Medtronic Enpath information 3608 [id number] Attain Epicardial Performa 4298 + + + + + + Serial number [id number] + + + + + + [...] situ documented in this encounter Care Teams Ear Muff Assembler Relationship Specialty Start Date End Date Clem Olvera MD [address] [place] [address] PCP - General 12/18/15 documented as of this encounter
--- OUTSIDE RECORDS SUMMARY | 2023-12-17 08:00 | XMS_ITS | Encounter Summary ---
[place] [address] Care Team Providers Care Lead Radiologic Technologist Name Role Phone Marques Martinez MD Primary Care Provider [phone] Encounter Details Date Type Department Care Team (Late st Contact Info) Description 06/12/2010 2:00 PM EST Procedure visit [place] [address] Social History Tobacco Use Types Packs/Day Years [...] AM EDT Hospital Encounter Non-Invasive [place] [address] Arrived documented as of this encounter Visit Diagnoses Not on filedocumented in this encounter Care Teams Lead Radiologic Technologist Relationship Specialty Start Date End Date Marques Martinez MD [address] [place] [address] PCP - General 04/01/10 04/08/11 documented as of this encounter
--- OUTSIDE RECORDS SUMMARY | 2023-12-17 08:00 | XMS_ITS | Encounter Summary ---
Author Organization [facility] [place] [address] Care Team Providers Care Environmental Projects Advisor Name Role Phone Marques Martinez MD Primary Care Provider [phone] Encounter Details Date Type Department Care Team (Late st Contact Info) Description 06/12/2010 2:10 PM EST Office [place] [address] Jairon Fenton MD [facility] [place] [address] Discharge Disposition: Home Social History Tobacco Use [...] Hospital Encounter Non-[place] [address] Arrived documented as of this encounter Visit Diagnoses Not on filedocumented in this encounter Care Teams Environmental Projects Advisor Relationship Specialty Start Date End Date Marques Martinez MD [address] [place] [address] PCP - General 04/01/10 04/08/11 documented as of this encounter
--- OUTSIDE RECORDS SUMMARY | 2023-12-17 08:00 | XMS_ITS | Encounter Summary ---
[place] [address] Care Team Providers Care Penology Teacher Name Role Phone Donny Cooper MD Primary Care Provider [phone] Encounter Details Date Type Department Care Team (Latest Contact Info) Description 04/03/2023 10:00 AM EST - 04/03/2023 11:59 PM [facility] Hospital Encounter Non[place] [address] Discharge Disposition: Home Social History Tobacco Use [...] AM EDT Hospital Encounter Non-[place] [address] Arrived documented as of this [...] on filedocumented in this encounter Care Teams Penology Teacher Relationship Specialty Start Date End Date Donny Cooper MD [address] [place] [address] PCP - General Family Medicine 02/25/19 documented as of this encounter
--- OUTSIDE RECORDS SUMMARY | 2023-12-17 08:00 | XMS_ITS | Encounter Summary ---
Author Organization [facility] Address [address] [place] [address] Care Team Providers Care Salesforce Administrator Name Role Phone Unavailable Primary Care Provider Unavailabl e Encounter Details Date Type Department Care Team (Late st Contact Info) Description 12/02/2012 Results Only [facility] ([facility] [address] [place] [address] [id number] Satinder Edwards MD [address] [place] [address] Social History Tobacco Use Types Packs/Day Years [...] ? NABIL IGLESIAS ? Accession #: ? [id number] ? : ? 1940 (Age: 72) ??M [...] MD PATHOLOGY ORDERABLE S Performing Organization Address City/State/[facility] Co de Phone Number [facility] [address] [place] [address] documented in this encounter Visit Diagnoses Not on filedocumented in this encounter
--- OUTSIDE RECORDS SUMMARY | 2023-12-17 08:00 | XMS_ITS | Encounter Summary ---
[place] [address] Care Team Providers Care Medical Assistant Cardiology Name Role Phone Donny Cooper MD Primary Care Provider [phone] Encounter Details Date Type Department Care Team (Latest Contact Info) Description 01/03/2023 10:00 AM EDT - 01/03/2023 11:59 PM EDT Hospital Encounter [place] [address] Discharge Disposition: Home Social History Tobacco Use [...] AM EDT Hospital Encounter [place] [address] Arrived documented as of this encounter Procedures [...] filedocumented in this encounter Care Teams Medical Assistant Cardiology Relationship Specialty Start Date End Date Donny Cooper MD [address] [place] [address] PCP - General Family Medicine 02/25/19 documented as of this encounter
--- OUTSIDE RECORDS SUMMARY | 2023-12-17 08:00 | XMS_ITS | Encounter Summary ---
Author Organization [facility] Address [address] [place] [address] Care Team Providers Care Typesetting Supervisor Name Role Phone Unknown, Provider Primary Care Provider [phone] Clem Olvera MD Primary Care Provider [phone] Encounter Details Date Type Department Care Team (Late st Contact Info) Description 11/29/2015 Pre-Procedure Orders Encounter [facility] [address] [place], [place] [id number] Navdeep Hurd MD [address] [place] [address] [address] Social History Tobacco Use Types [...] Patient: Nabil Streeter. Attending: Dr. Moran Scrrajinder Wet Chemistry Analyst: Dr. Fantasma Dhillon History/indication: The patient is [...] Patient: Nabil Streeter Attending: Dr. Dean Bailey Wet Chemistry Analyst: Dr. Fantasma Dhillon History/indication: The patient is [...] on filedocumented in this encounter Care Teams Typesetting Supervisor Relationship Specialty Start Date End Date Unknown, Provider, PCP - General 12/06/12 12/17/15 Clem Olvera MD [address] [place] [address] PCP - General 12/18/15 documented as of this encounter
--- OUTSIDE RECORDS SUMMARY | 2023-12-17 08:00 | XMS_ITS | Encounter Summary ---
Author Organization [facility] Address [address] [place] [address] Care Team Providers Care Pre Parole Counseling Aide Name Role Phone Unavailable Primary Care Provider Unavailabl e Encounter Details Date Type Department Care Team (Late st Contact Info) Description 05/06/2001 Results Only [facility] [address] [place] [address] Hernandez Partida MD [address] [place] [address] Social History Tobacco Use Types Packs/Day Years [...] is submitted entirely in cassette (B). ??(Naty Caal)/[facility] End of Report [facility] 05/06/2001 05/07/2001 9:2 5 EST Hernandez Partida MD PATHOLOGY ORDERABLES [facility] [address] [place] [address] documented in this encounter Visit Diagnoses Not on filedocumented in this encounter
--- OUTSIDE RECORDS SUMMARY | 2023-12-17 08:00 | XMS_ITS | Encounter Summary ---
[place] [address] Care Team Providers Care Hall Director Name Role Phone Marques Martinez MD Primary Care Provider Encounter Details Date Type Department Care Team (Late st Contact Info) Description 05/01/2010 2:40 PM EST Procedure visit [place] [address] Social History Tobacco Use Types Packs/Day Years [...] AM EDT Hospital Encounter Non-[place] [address] Arrived documented as of this encounter Visit Diagnoses Not on filedocumented in this encounter Care Teams Hall Director Relationship Specialty Start Date End Date Marques Martinez MD [address] [place] [address] PCP - General 04/01/10 04/08/11 documented as of this encounter
--- OUTSIDE RECORDS SUMMARY | 2023-12-17 08:00 | XMS_ITS | Encounter Summary ---
Author Organization [facility] [place] [address] Care Team Providers Care Equipment Specialist Name Role Phone Donny Cooper MD Primary Care Provider [phone] Encounter Details Date Type Department Care Team (Latest Contact Info) Description 06/13/2020 12:35 PM EST - 06/13/2020 11:59 PM EST Hospital Encounter Non[place] [address] Alber Seals MD [facility] [place] [address] Cardiomyopathy, primary Discharge Disposition: Home Social History [...] AM EDT Hospital Encounter Non[place] [address] Arrived documented as of this encounter Procedures Procedure Name Priority Date/Time Associated Diagnosis Comments ICD INTERROGATION 3 MONTH Routine 06/13/2020 12:36 PM EST Cardiomyopathy, primary documented in this encounter Results * ICD INTERROGATION 3 MONTH (06/13/2020 12:36 PM EST) Anatomical Region Laterality Modality Other Narrative 06/14/2020 10:38 AM EST Cardiac Device Remote Monitoring Report Summary Medtronic Revision Military 06/14/20 Device: ROCKET TEST FIRE WORKER-D Model: VIVA QUAD Battery: 2.96 v, estimated longevity 3 years, 11 months Pacing percentage: 78% ventricular paced Events: The presenting rhythm is atrial paced with biventricular pacing and frequent ventricular premature contractions No significant arrhythmias Impression Normal device function; suboptimal ROCKET TEST FIRE WORKER pacing likely secondary to frequent PVCs. Should consider in clinic follow-up for further evaluation Follow Up As per schedule - in-clinic and remote ALBER SEALS MD Alber Seals MD IMPLANTABLE CARDIAC DEVICE documented in this encounter Visit Diagnoses Diagnosis Cardiomyopathy, primary Other primary cardiomyopathies documented in this encounter Care Teams Equipment Specialist Relationship Specialty Start Date End Date Donny Cooper MD [address] [place] [address] PCP - General Family Medicine 02/25/19 documented as of this encounter
--- OUTSIDE RECORDS SUMMARY | 2023-12-17 08:00 | XMS_ITS | Encounter Summary ---
[place] [address] Care Team Providers Care Handle Machine Operator Name Role Phone Donny Cooper MD Primary Care Provider [phone] Encounter Details Date Type Department Care Team (Late st Contact Info) Description 03/17/2019 Telephone Cardiology at [address] [address] Sheri Quinn LNA Social History [...] 11:46 AM EST Medication list reviewed with [facility] list. Please review with patient at next clinic visit. documented in this encounter Plan of Treatment Upcoming Encounters Date Type Department Care Team (Late st Contact Info) Description 02/02/2024 10:00 AM EDT Hospital Encounter Non-[place] [address] Arrived documented as of this encounter Visit Diagnoses Not on filedocumented in this encounter Care Teams Handle Machine Operator Relationship Specialty Start Date End Date Donny Cooper MD [address] [place] [address] PCP - General Family Medicine 02/25/19 documented as of this encounter
--- OUTSIDE RECORDS SUMMARY | 2023-12-17 08:00 | XMS_ITS | Encounter Summary ---
[facility] [place] [address] Care Team Providers Care Washcloth Folder Name Role Phone Donny Cooper MD Primary Care Provider [phone] Encounter Details Date Type Department Care Team (Latest Contact Info) Description 10/03/2022 10:00 AM EDT Office Visit Cardiology at [address] [address] Eleno No PA [facility] [place] [address] Cardiomyopathy, primary; Presence of cardiac resynchronization therapy defibrillator (MANUFACTURING APPLICATIONS ENGINEER-D); Diaphragmatic stimulation by cardiac pacemaker, initial encounter [...] original note were not included. Cardiac Device MANUFACTURING APPLICATIONS ENGINEER-D Programming Evaluation Nabil Iglesias [id number] 10/03/2022 History: Mr. 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 [...] AM EDT Hospital Encounter Non-[place] [address] Arrived documented as of this encounter Procedures Procedure Name Priority Date/Time Associated Diagnosis Comments EKG 12-LEAD Routine 10/03/2022 11:00 AM EDT Cardiomyopathy, primary Presence of cardiac resynchronization therapy defibrillator (MANUFACTURING APPLICATIONS ENGINEER-D) Diaphragmatic stimulation by cardiac pacemaker, initial encounter documented in this encounter Results * EKG 12 Lead (10/03/2022 11:00 AM EDT) Ventricular rate 74 BPM MUSE SYSTEM Atrial Rate 74 BPM MUSE SYSTEM P-R Interval 154 ms MUSE SYSTEM QRS Duration 162 ms MUSE SYSTEM Q-T Interval 470 ms MUSE SYSTEM QTC Calculated (Bezet) 521 ms MUSE SYSTEM Calculated P [place] 30 degrees MUSE SYSTEM Calculated R [place] -98 degrees MUSE SYSTEM Calculated T [place] 41 degrees MUSE SYSTEM INTERPRETATION Atrial-sense d [...] cardiomyopathies Presence of cardiac resynchronization therapy defibrillator (MANUFACTURING APPLICATIONS ENGINEER-D) Diaphragmatic stimulation by cardiac pacemaker, initial encounter documented in this encounter Care Teams Washcloth Folder Relationship Specialty Start Date End Date Donny Cooper MD [address] [place] [address] PCP - General Family Medicine 02/25/19 documented as of this encounter
--- OUTSIDE RECORDS SUMMARY | 2023-12-17 08:00 | XMS_ITS | Encounter Summary ---
Author Organization [facility] [place] [place] [address] Care Team Providers Care In Store Marketing Associate Name Role Phone Donny Cooper MD Primary Care Provider [phone] Encounter Details Date Type Department Care Team (Latest Contact Info) Description 12/18/2020 11:57 AM EDT - 12/18/2020 11:59 PM EDT Hospital Encounter Non-Invasive [place] [address] Maged Arguelles MD [facility] [place] [address] Cardiomyopathy, primary Discharge Disposition: Home Social History [...] EDT Hospital Encounter Non-Invasive [place] [address] Arrived documented as of this encounter Procedures Procedure Name Priority Date/Time Associated Diagnosis Comments ICD INTERROGATION 3 MONTH Routine 12/18/2020 12:00 PM EDT Cardiomyopathy, primary documented in this encounter Results * ICD INTERROGATION 3 MONTH (12/18/2020 12:00 PM EDT) Anatomical Region Laterality Modality Other Narrative 12/23/2020 11:08 PM EDT MDT BOX COVERING MACHINE OPERATOR-D remote reviewed. Normal device function. Inadequate BOX COVERING MACHINE OPERATOR at 80%. Maged Arguelles MD [facility] Cardiac Electrophysiology 12/23/2020 11:06 PM Maged Arguelles MD IMPLANTABLE CARDIAC DEVICE documented in this encounter Visit Diagnoses Diagnosis Cardiomyopathy, primary Other primary cardiomyopathies documented in this encounter Care Teams In Store Marketing Associate Relationship Specialty Start Date End Date Donny Cooper MD [address] [facility] [place] [address] [place] [address] PCP - General Family Medicine 02/25/19 documented as of this encounter
--- OUTSIDE RECORDS SUMMARY | 2023-12-17 08:00 | XMS_ITS | Encounter Summary ---
Author Organization [facility] [place] [address] Care Team Providers Care Survey Field Technician Name Role Phone Donny Cooper MD Primary Care Provider [phone] Encounter Details Date Type Department Care Team (Late st Contact Info) Description 07/26/2019 Notes Only Cardiology at [address] [address] Maged Arguelles MD [facility] [place] [address] Social History Tobacco Use Types Packs/Day Years [...] his Medtronic biventricular ICD is reviewed. Suboptimal MANAGER ANALYSIS at 84%. Normal device function. Awaiting Holter to assess PVC burden. Maged Arguelles MD [facility] Cardiac Electrophysiology 07/26/2019 9:04 AM documented in this encounter Plan of Treatment Upcoming Encounters Date Type Department Care Team (Late st Contact Info) Description 02/02/2024 10:00 AM EDT Hospital Encounter Non-Invasive [place] [address] Arrived documented as of this encounter Visit Diagnoses Not on filedocumented in this encounter Care Teams Survey Field Technician Relationship Specialty Start Date End Date Donny Cooper MD [address] [place] [address] PCP - General Family Medicine 02/25/19 documented as of this encounter
--- OUTSIDE RECORDS SUMMARY | 2023-12-17 08:00 | XMS_ITS | Clinical Summary ---
Author Organization [facility] Address [address] [place] [address] Care Team Providers Care Woodwind Instruments Inspector Name Role Phone Clem Olvera MD Primary Care Provider [phone] Allergies No known active allergies Medications Medication [...] PACEMAKER INSERTION 05/04/2002 - 05/03/20032013 second pacemaker [facility] Medical History Medical History Date [...] Screening 2005 COVID-19 Vaccine (2022- season) 2023 Insurance Payer Benefit Plan / Group Subscriber ID Effective Dates Phone Address Type MEDICARE MEDICARE A/B [id number] 2005-Prese nt [address] [place] [address] [place] [id number] 2022-Prese nt [address] [place] [address] Medicare [place] Advance Directives For more information, please contact: [phone] * Full Code (Latest Code Status on File) Date Activated Date Inactivated Comments 02/27/2016 8:49 02/28/2016 15:40 Question Answer Comments Reason for decision includes: Full code consistent with overall plan of care Who participated in the discussion? Not Discusse d Care Teams Woodwind Instruments Inspector Relationship Specialty Start Date End Date Clem Olvera MD [address] [place] [address] PCP - General 12/18/15
--- OUTSIDE RECORDS SUMMARY | 2023-12-17 08:00 | XMS_ITS | Encounter Summary ---
Author Organization [facility] [place] [address] Care Team Providers Care Litigation Paralegal Name Role Phone Marques Martinez MD Primary Care Provider [phone] Encounter Details Date Type Department Care Team (Late st Contact Info) Description 05/01/2010 3:10 PM EST Office [place] [address] Jairon Fenton MD [facility] [place] [address] Discharge Disposition: Home Social History Tobacco Use [...] AM EDT Hospital Encounter Non-[place] [address] Arrived documented as of this encounter Visit Diagnoses Not on filedocumented in this encounter Care Teams Litigation Paralegal Relationship Specialty Start Date End Date Marques Martinez MD [address] [place] [address] PCP - General 04/01/10 04/08/11 documented as of this encounter
--- OUTSIDE RECORDS SUMMARY | 2023-12-17 08:00 | XMS_ITS | Encounter Summary ---
Author Organization [facility] [place] [address] Care Team Providers Care Marketing Associate Name Role Phone Clem Olvera MD Primary Care Provider [phone] Reason for Visit * Reason Comments Follow Up Fracture SP PATELLA FX DO12/12 DOI 03/30/10 Encounter Details Date Type Department Care Team (Late st Contact Info) Description 04/09/2011 1:30 PM EST Office [place] [address] Jairon Gustafson MD [facility] [place] [address] Jose Francisco Bee PA [facility] [place] [address] Patella fracture (Primary Dx) Discharge Disposition: Home [...] AM EDT Hospital Encounter Non-[place] [address] Arrived documented as of this encounter Visit Diagnoses Diagnosis Patella fracture- Primary Closed fracture of patella documented in this encounter Care Teams Marketing Associate Relationship Specialty Start Date End Date Clem Olvera MD [address] [place] [address] PCP - General 04/09/11 02/24/19 documented as of this encounter
--- OUTSIDE RECORDS SUMMARY | 2023-12-17 08:00 | XMS_ITS | Encounter Summary ---
[place] [address] Care Team Providers Care Home Care Liaison Name Role Phone Donny Cooper MD Primary Care Provider [phone] Encounter Details Date Type Department Care Team [...] AM EDT Hospital Encounter Non-[place]vasive [place] [address] Arrived documented as of this encounter Visit Diagnoses Not on filedocumented in this encounter Care Teams Home Care Liaison Relationship Specialty Start Date End Date Donny Cooper MD [address] [place] [address] PCP - General Family Medicine 02/25/19 documented as of this encounter
--- OUTSIDE RECORDS SUMMARY | 2023-12-17 08:00 | XMS_ITS | Encounter Summary ---
[place] [address] Care Team Providers Care Feature Writer Name Role Phone Donny Cooper MD Primary Care Provider [phone] Encounter Details Date Type Department Care Team (Latest Contact Info) Description 04/08/2022 10:00 AM EST - 04/08/2022 11:59 PM [facility] Hospital Encounter [place] [address] Discharge Disposition: Home Social History Tobacco Use [...] AM EDT Hospital Encounter [place] [address] Arrived documented as of this [...] on filedocumented in this encounter Care Teams Feature Writer Relationship Specialty Start Date End Date Donny Cooper MD [address] [place] [address] PCP - General Family Medicine 02/25/19 documented as of this encounter
--- OUTSIDE RECORDS SUMMARY | 2023-12-17 08:00 | XMS_ITS | Encounter Summary ---
[place] [address] Care Team Providers Care Private Inquiry Agent Name Role Phone Donny Cooper MD Primary Care Provider [phone] Encounter Details Date Type Department Care Team (Latest Contact Info) Description 07/07/2022 10:00 AM EST - 07/07/2022 11:59 PM EST Hospital Encounter Non-Invasive [place] [address] Discharge Disposition: Home Social History Tobacco Use [...] AM EDT Hospital Encounter Non-Invasive [place] [address] Arrived documented as of this [...] on filedocumented in this encounter Care Teams Private Inquiry Agent Relationship Specialty Start Date End Date Donny Cooper MD [address] [place] [address] PCP - General Family Medicine 02/25/19 documented as of this encounter
--- OUTSIDE RECORDS SUMMARY | 2023-12-17 08:00 | XMS_ITS | Encounter Summary ---
Author Organization [facility] Address [address] [place] [address] Care Team Providers Care Shared Services And Outsourcing Manager Name Role Phone Clem Olvera MD Primary Care Provider [phone] Encounter Details Date Type Department Care Team (Latest Contact Info) Description 12/20/2015 10:52 EDT - 12/20/2015 23:52 EDT Hospital Encounter [facility] [address] [place] [address] Navdeep Hurd MD [address] [place] [address] [address] Discharge Disposition: Home or Self [...] no need to beNPO or have a charter bus driver. However, his will be accompanying him. They are driving someone to the airport [place] 1000 and then will come here and check-in around 1145. He agrees to have a shower. documented in this encounter Procedure Notes * Fantasma Dhillon MD - 12/20/2015 1356 EDT IR Brief Procedure Note Attending: Leo Test Manager: Alejo Pre-op Dx: Arrhythmia, need for [...] 12/19 documented in this encounter Care Teams Shared Services And Outsourcing Manager Relationship Specialty Start Date End Date Clem Olvera MD [address] [place] [address] PCP - General 12/18/15 documented as of this encounter
--- OUTSIDE RECORDS SUMMARY | 2023-12-17 08:00 | XMS_ITS | Clinical Summary ---
Author Organization [facility] [place] [address] Care Team Providers Care Automotive Title Clerk Name Role Phone Donny Cooper MD Primary Care Provider [phone] Allergies No known active allergies Medications Medication [...] PM EDT Hospital Encounter Non-[place] [address] Discharge Disposition: Home from Last 3 Months [...] AM EDT Hospital Encounter Non-[place] [address] Arrived Health Maintenance Due Date Last Done Comments Tdap adult 08/19/1959 Tetanus vaccine 08/19/1959 Zoster vaccine (1 of 2) 1990 Advance Directive 08/19/1995 Pneumoccocal Vaccine: 65+ (2 of 2 - PCV) 05/04/2009 05/04/2008 Covid-19 Vaccine ( - 2022- season) 2023 Influenza (Flu) vaccine (1 o f 1 - Influenza standard series) 01/03/2024 02/01/2010, 03/06/2006, 02/24/2005 Medical Devices Implanted Type Area Front End Developer Designer Device Identifier Shelf Expiration Date Model / Serial / Lot Mdt : [id number] : [id number] Implanted: (Quantity not on file) Cardiac Resynchronization Therapy - Defibrillator Chest Medtronic - [id number] / [id number] / Care Teams Automotive Title Clerk Relationship Specialty Start Date End Date Donny Cooper MD [address] [place], [place] [address] PCP - General Family Medicine 02/25/19
--- OUTSIDE RECORDS SUMMARY | 2023-12-17 08:00 | XMS_ITS | Encounter Summary ---
Author Organization [facility] [place] [address] Care Team Providers Care Admitted Attorneys Name Role Phone Marques Martinez MD Primary Care Provider [phone] Encounter Details Date Type Department Care Team (Late st Contact Info) Description 10/09/2010 11:35 AM EDT - 10/09/2010 11:59 PM EDT Hospital Encounter XRay at [address] [place] [address] Social History Tobacco Use Types Packs/Day Years [...] Hospital Encounter Non-Invasive Cardiology Lab [facility] [place] [address] Arrived documented as of this encounter Visit Diagnoses Not on filedocumented in this encounter Care Teams Admitted Attorneys Relationship Specialty Start Date End Date Marques Martinez MD [address] [place] [address] PCP - General 04/01/10 04/08/11 documented as of this encounter
--- OUTSIDE RECORDS SUMMARY | 2023-12-17 08:00 | XMS_ITS | Encounter Summary ---
[place] [address] Care Team Providers Care Runner Worker Name Role Phone Donny Cooper MD Primary Care Provider [phone] Encounter Details Date Type Department Care Team (Latest Contact Info) Description 07/02/2023 10:00 AM EST - 07/02/2023 11:59 PM EST Hospital Encounter Non-[place]vasive [place] [address] Discharge Disposition: Home Social History Tobacco Use [...] AM EDT Hospital Encounter Non-Invasive [place] [address] Arrived documented as of this encounter Visit Diagnoses Not on filedocumented in this encounter Care Teams Runner Worker Relationship Specialty Start Date End Date Donny Cooper MD [address] [place] [address] PCP - General Family Medicine 02/25/19 documented as of this encounter
--- OUTSIDE RECORDS SUMMARY | 2023-12-17 08:00 | XMS_ITS | Encounter Summary ---
Author Organization [facility] [place] [address] Care Team Providers Care Electron Tube Assembler Name Role Phone Marques Martinez MD Primary Care Provider [phone] Encounter Details Date Type Department Care Team (Late st Contact Info) Description 09/11/2010 Orders Only [place] [address] Jairon Fenton MD [facility] [place] [address] Fracture of patella, left, closed (Primary Dx) [...] AM EDT Hospital Encounter [place] [address] Arrived documented as of this encounter Visit Diagnoses Diagnosis Fracture of patella, left, closed- Primary Closed fracture of patella documented in this encounter Care Teams Electron Tube Assembler Relationship Specialty Start Date End Date Marques Martinez MD [address] [place] [address] PCP - General 04/01/10 04/08/11 documented as of this encounter
--- OUTSIDE RECORDS SUMMARY | 2023-12-17 08:00 | XMS_ITS | Encounter Summary ---
Author Organization [facility] [place] [address] Care Team Providers Care Supervisor Electronic Coils Name Role Phone Marques Martinez MD Primary Care Provider [phone] Reason for Visit * Reason Comments Follow Up Fracture PATELLA FX DOI 03/23 10 Encounter Details Date Type Department Care Team (Late st Contact Info) Description 10/09/2010 12:40 PM EDT Office [place] [address] Jairon Gustafson MD [facility] [place] [address] Jose Francisco Bee PA [facility] [place] [address] Quadriceps tendon rupture (Primary Dx) Discharge Disposition: [...] AM EDT Hospital Encounter Non-[place] [address] Arrived documented as of this encounter Visit Diagnoses Diagnosis Quadriceps tendon rupture- Primary Sprain and strain of other specified sites of knee and leg documented in this encounter Care Teams Supervisor Electronic Coils Relationship Specialty Start Date End Date Marques Martinez MD [address] [place] [address] PCP - General 04/01/10 04/08/11 documented as of this encounter
--- OUTSIDE RECORDS SUMMARY | 2023-12-17 08:00 | XMS_ITS | Encounter Summary ---
Author Organization [facility] Address [address] [place] [address] Care Team Providers Care Type Proof Reproducer Name Role Phone Clem Olvera MD Primary Care Provider [phone] Reason for Visit * Reason Onset Date Comments Other 04/04/2019 Transfer request [place] [facility] Encounter Details Date Type Department Care Team (Late st Contact Info) Description 04/04/2019 Telephone [facility] Cardiology Clinic [address] [place] [address] Giselle Hill, TELEGRAPH EDITOR Other (Transfer request for Pacer Care at [facility] Social History Tobacco Use Types Packs/Day Years [...] 04/04/2019 1503 EST I went into the [employer] Website and released pt to [facility] [place] [facility] as requested. * Telephone Encounter - Suze Reynoso - 04/04/2019 1342 EST PT WILL BE HAVING HIS PACER CARE DONE AT [facility], PLEASE RELEASE HIS REMOTE MONITORING SO THAT THEY CAN PICK IT UP documented in this encounter Plan of Treatment Not on file documented as of this encounter Visit Diagnoses Not on filedocumented in this encounter Care Teams Type Proof Reproducer Relationship Specialty Start Date End Date Clem Olvera MD [address] [place] [address] PCP - General 12/18/15 documented as of this encounter
--- OUTSIDE RECORDS SUMMARY | 2023-12-17 08:01 | XMS_ITS | Encounter Summary ---
Author Organization [facility] [place] [address] Care Team Providers Care Business Professor Name Role Phone Marques Martinez MD Primary Care Provider [phone] Encounter Details Date Type Department Care Team (Late st Contact Info) Description 03/30/2010 [place] [address] Javier Barajas MD [facility] [place] [address] Social History Tobacco Use Types Packs/Day Years [...] AM EDT Hospital Encounter Non-[place] [address] Arrived documented as of this encounter Procedures [...] AM EST Jairon Fenton MD CHEMISTRY ORDERABLES [facility] * (ABNORMAL) CREATININE, SERUM (04/01/2010 6:09 AM [...] Fenton MD CHEMISTRY ORDERABLES Performing Organization Address [facility] de Phone Number [facility]ER [facility] * BUN (04/01/2010 6:09 AM EST) Blood Urea Nitrogen 12 10 - 20 mg/dL [facility] Blood specimen (specimen) 04/01/2010 6:09 AM EST 04/01/2010 6:09 AM EST Jairon Fenton MD CHEMISTRY ORDERABLES Performing Organization Address [facility] de Phone Number CERNER MILLENNIUM * [...] MD HEMATOLOGY ORDERABLE S Performing Organization Address [facility] de Phone Number CERNER MILLENNIUM * [...] Fenton MD CHEMISTRY ORDERABLES Performing Organization Address [facility] Phone Number CERIVIS MILLENNIUM * ELECTROLYTE PANEL (03/30/2010 6:05 PM EST) Pathologist [facility] Sodium 135 135 - 145 mmol/L CERNER [...] Fenton MD CHEMISTRY ORDERABLES Performing Organization Address [facility] Co de Phone Number CERIVIS MILLENNIUM * CREATININE, SERUM (03/30/2010 6:05 PM EST) Creatinine 0.87 0.80 - 1.50 mg/dL [facility] Est Glomerular Filtration Rate >60 >=60 [facility] Comment: The National Kidney Disease Education [...] Urea Nitrogen 18 10 - 20 mg/dL [facility] Blood specimen (specimen) 03/30/2010 6:05 PM EST 03/30/2010 6:13 PM EST Jairon Fenton MD CHEMISTRY ORDERABLES Performing Organization Address [facility] de Phone Number DEJA SEGOVIA * APTT (03/30/2010 6:05 PM EST) Partial Thromboplastin Time 26 25 - 37 sec [facility] Comment: Recommended therapeutic PTT range for full dose unfractionated heparin is 80-114 seconds. Blood specimen (specimen) 03/30/2010 6:05 PM EST 03/30/2010 6:14 PM EST Jairon Fenton MD HEMATOLOGY ORDERABLE S Performing Organization Address [facility] Phone Number DEJA SEGOVIA * PROTIME-INR (03/30/2010 6:05 PM EST) Prothrombin Time 14.2 12.3 - 14.7 sec [facility] Comment: [facility] Transfusion Committee Guidelines: INR less than 2.0, PTT less than OR equal to 43.5 seconds, or Fibrinogen greater than or equal to 100 mg/dl indicate adequate procoagulant activity for hemostasis in patients without underlying bleeding disorders. International Normalization Ratio 1.1 0.9 - [address] [facility] Blood specimen (specimen) 03/30/2010 6:05 PM EST 03/30/2010 6:14 PM EST Jairon Fenton MD HEMATOLOGY ORDERABLE S Performing Organization Address [facility] de Phone Number DEJA SEGOVIA * [...] Standard Deviation 44.2 35.0 - 46.0 fL [facility] RDW coefficient of variation 13.1 10.9 - 14.4 % [facility] Mean Platelet Volume 10.6 9.0 - 12.0 fL [facility] Blood specimen (specimen) 03/30/2010 6:05 PM EST 03/30/2010 6:13 PM EST Jairon Fenton MD HEMATOLOGY ORDERABLE S Performing Organization Address [facility] Co de Phone Number [facility] * REFLEX LAB-ANTIBODY SCREEN (03/30/2010 3:17 PM EST) [facility] Ab Screen Interp Negative [facility] Expires at [id number] on: [id number] [facility] Blood specimen (specimen) 03/30/2010 3:17 PM EST 03/30/2010 3:17 PM EST Javier Barajas MD BLOOD BANK LAB ORDER PRECIOUS Performing Organization Address [facility] Co de Phone Number [facility] * REFLEX LAB-ABO/RH (03/30/2010 3:17 PM EST) [facility] ABORH Type A Pos [facility] Blood specimen (specimen) 03/30/2010 3:17 PM EST 03/30/2010 3:17 PM EST Javier Barajas MD BLOOD BANK LAB ORDER PRECIOUS Performing Organization Address [facility] Co de Phone Number [facility] * ELECTROLYTE PANEL (03/30/2010 2:50 PM EST) [facility] Sodium 135 135 - 145 mmol/L [facility] Potassium 4.3 3.5 - 5.0 mmol/L [facility] Comment: Please note: ??Patients with WBC [...] Barajas MD CHEMISTRY ORDERABLES Performing Organization Address [facility] Phone Number [facility] * BUN (03/30/2010 2:50 PM EST) Blood Urea Nitrogen 18 10 - 20 mg/dL [facility] Blood specimen (specimen) 03/30/2010 2:50 PM EST 03/30/2010 3:05 PM EST Javier Barajas MD CHEMISTRY ORDERABLES Performing Organization Address [facility] Phone Number [facility] * GLUCOSE, RANDOM (03/30/2010 2:50 PM EST) Glucose 95 <=199 mg/dL [facility] Comment:Diabetes: >=200 mg/d L plus symptoms Blood specimen (specimen) 03/30/2010 2:50 PM EST 03/30/2010 3:05 PM EST Javier Barajas MD CHEMISTRY ORDERABLES Performing Organization Address [facility] Phone Number [facility] * APTT (03/30/2010 2:50 PM EST) Partial Thromboplastin Time 25 25 - 37 sec [facility] Comment: Recommended therapeutic PTT range for full dose unfractionated heparin is 80-114 seconds. Blood specimen (specimen) 03/30/2010 2:50 PM EST 03/30/2010 3:06 PM EST Javier Barajas MD HEMATOLOGY ORDERABLE S Performing Organization Address [facility] Phone Number [facility] * PROTIME-INR (03/30/2010 2:50 PM EST) Prothrombin Time 14.1 12.3 - 14.7 sec [facility] Comment: [facility] Transfusion Committee Guidelines: INR less than [...] on filedocumented in this encounter Care Teams Business Professor Relationship Specialty Start Date End Date Marques Martinez MD [address] [place] [address] PCP - General 04/01/10 04/08/11 documented as of this encounter
[2023-12-17 08:03] VITALS: BP 121/63; PULSE 70
--- OUTSIDE RECORDS SUMMARY | 2023-12-22 08:04 | XMS_ITS | Encounter Summary ---
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 [address] [place] [address] ICD (implantable cardioverter-defibril lator) battery [...] 8 EDT Narrative 02/27/2016 15:17 EDT *Cardiology* [address] [place] [address] Lead Revision (Report amended ) Patient: Nabil Iglesias ?Study Date: ?02/27/2016 ? Accession #: ? [id number] : ? 1940 Referring: Clem Olvera Attending: [...] glide wire a Nick MENDOZAW 6F ([facility]) 6 mm-40 mm balloon dilation still [...] fascia. The leads were connected to a COUPON AND BOND COLLECTION CLERK-D device. Device and Lead detail in table [...] Implanted device: Medtronic - Viva Quad XT COUPON AND BOND COLLECTION CLERK-D DF4 - Serial number: [id number] Explanted device: Medtronic - Viva XT COUPON AND BOND COLLECTION CLERK-D DF4 - Serial number: [id number]. LEAD PARAMETERS + + + + + [...] + + + + + Serial number [id number] ? [id number] ?? [id number] ?? [id number] ? + + + + [...] Gulshan Drummond MD - 05/12/2016 *Cardiology* [address] [place] [address] Lead Revision (Report amended ) Patient: Nabil [...] therefore over an 0.35 glide [facility] ([facility]) 6 mm-40 mm balloon dilation still [...] fascia. The leads were connected to a COUPON AND BOND COLLECTION CLERK-D device. Device and Lead detail in table [...] Implanted device: Medtronic - Viva Quad XT COUPON AND BOND COLLECTION CLERK-D DF4 - Serial number: [id number] Explanted device: Medtronic - Viva XT COUPON AND BOND COLLECTION CLERK-D DF4 - Serial number: [id number]. LEAD PARAMETERS + + + + + + Lead # 1 2 3 4 + + + + + + Chamber RA RV LV LV + + + + + + Date 07/19/2002 07/18/2013 02/27/2016 07/18/2013 implanted + + + + + + Model St. Esa Medtronic Medtronic Enpath information 1308 [id number] Attain Epicardial Performa 4298 + + + + + + Serial number [id number] + + + + + + [...] situ documented in this encounter Care Teams Hotel Operation Manager Relationship Specialty Start Date End Date Clem Olvera MD [address] [place] [address] PCP - General 12/18/15 documented as of this encounter
--- OUTSIDE RECORDS SUMMARY | 2023-12-22 08:04 | XMS_ITS | Encounter Summary ---
Author Organization [facility] Address [address] [place] [address] Care Team Providers Care Pipe Fitter Maintenance Name Role Phone Clem Olvera MD Primary Care Provider [phone] Reason for Visit * Reason Onset Date Comments Other 04/04/2019 Transfer request for Pacer Care at [facility] Encounter Details Date Type Department Care Team (Late st Contact Info) Description 04/04/2019 Telephone [facility] Cardiology Clinic [address] [place] [address] Giselle Hill, PIZZA COOK Other (Transfer request for Pacer Care at [facility]) Social History Tobacco Use Types Packs/Day Years [...] 04/04/2019 1503 EST I went into the [employer] Website and released pt to [facility] Pacer Clinic as requested. * Telephone Encounter - Suze Reynoso - 04/04/2019 1342 EST PT WILL BE HAVING HIS PACER CARE DONE AT [facility], PLEASE RELEASE HIS REMOTE MONITORING SO THAT THEY CAN PICK IT UP documented in this encounter Plan of Treatment Not on file documented as of this encounter Visit Diagnoses Not on filedocumented in this encounter Care Teams Pipe Fitter Maintenance Relationship Specialty Start Date End Date Clem Olvera MD [address] [place] [address] PCP - General 12/18/15 documented as of this encounter
--- OUTSIDE RECORDS SUMMARY | 2023-12-22 08:04 | XMS_ITS | Encounter Summary ---
Author Organization Formerly [facility] [place] [address] Care Team Providers Care Eyeglass Fitter Name Role Phone Donny Cooper MD Primary Care Provider [phone] [phone] Encounter Details Date Type Department Care Team (Latest Contact Info) Description 06/25/2021 3:23 PM EST - 06/25/2021 11:59 PM EST Hospital Encounter Non-[place] [address] Alber Seals MD [facility] [place] [address] Cardiomyopathy, primary Discharge Disposition: Home Social History [...] AM EDT Hospital Encounter Non-[place] [address] Arrived documented as of this encounter Procedures Procedure Name Priority Date/Time Associated Diagnosis Comments ICD INTERROGATION 3 MONTH Routine 06/25/2021 3:24 PM EST Cardiomyopathy, primary documented in this encounter Results * ICD INTERROGATION 3 MONTH (06/25/2021 3:24 PM EST) Anatomical Region Laterality Modality Other Narrative 06/25/2021 3:42 PM EST Cardiac Device Remote Monitoring Report Summary Medtronic Carelink Device: SKILLS TRAINER-D Model: VIVA QUAD Battery: 2.95 v, estimated longevity 2 years 6 months Pacing percentage: 90% SKILLS TRAINER paced Events: Presenting rhythm: atrial paced/biventricular paced Frequent PVC's Impression Normal device function Follow Up As per schedule - in-clinic and remote ALBER SEALS MD 06/25/21 Alebr Seals MD IMPLANTABLE CARDIAC DEVICE documented in this encounter Visit Diagnoses Diagnosis Cardiomyopathy, primary Other primary cardiomyopathies documented in this encounter Care Teams Eyeglass Fitter Relationship Specialty Start Date End Date Donny Cooper MD [address] [place] [address] PCP - General Family Medicine 02/25/19 documented as of this encounter
--- OUTSIDE RECORDS SUMMARY | 2023-12-22 08:04 | XMS_ITS | Encounter Summary ---
[place] [address] Care Team Providers Care Classroom Monitor Name Role Phone Donny Cooper MD Primary Care Provider [phone] Encounter Details Date Type Department Care Team (Latest Contact Info) Description 07/02/2023 10:00 AM EST - 07/02/2023 11:59 PM EST Hospital Encounter [place] [address] Discharge Disposition: Home Social History Tobacco Use [...] AM EDT Hospital Encounter [place] [address] Arrived documented as of this encounter Visit Diagnoses Not on filedocumented in this encounter Care Teams Classroom Monitor Relationship Specialty Start Date End Date Donny Cooper MD [address] [place] [address] PCP - General Family Medicine 02/25/19 documented as of this encounter
--- OUTSIDE RECORDS SUMMARY | 2023-12-22 08:04 | XMS_ITS | Encounter Summary ---
Author Organization [facility] [address] Care Team Providers Care Manager Intranet Name Role Phone Donny Cooper MD Primary Care Provider [phone] Encounter Details Date Type Department Care Team (Latest Contact Info) Description 06/13/2020 12:35 PM EST - 06/13/2020 11:59 PM EST Hospital Encounter Non-Invasive [place] [address] Alber Seals MD [facility] [place] [address] Cardiomyopathy, primary Discharge Disposition: Home Social History [...] AM EDT Hospital Encounter Non-Invasive [place] [address] Arrived documented as of this encounter Procedures Procedure Name Priority Date/Time Associated Diagnosis Comments ICD INTERROGATION 3 MONTH Routine 06/13/2020 12:36 PM EST Cardiomyopathy, primary documented in this encounter Results * ICD INTERROGATION 3 MONTH (06/13/2020 12:36 PM EST) Anatomical Region Laterality Modality Other Narrative 06/14/2020 10:38 AM EST Cardiac Device Remote Monitoring Report Summary Medtronic [employer] 06/14/20 Device: VESSEL SCRAPPER HELPER-D Model: VIVA QUAD Battery: 2.96 v, estimated longevity 3 years, 11 months Pacing percentage: 78% ventricular paced Events: The presenting rhythm is atrial paced with biventricular pacing and frequent ventricular premature contractions No significant arrhythmias Impression Normal device function; suboptimal VESSEL SCRAPPER HELPER pacing likely secondary to frequent PVCs. Should consider in clinic follow-up for further evaluation Follow Up As per schedule - in-clinic and remote ALBER SEALS MD Alber Seals MD IMPLANTABLE CARDIAC DEVICE documented in this encounter Visit Diagnoses Diagnosis Cardiomyopathy, primary Other primary cardiomyopathies documented in this encounter Care Teams Manager Intranet Relationship Specialty Start Date End Date Donny Cooper MD [address] [place] [address] PCP - General Family Medicine 02/25/19 documented as of this encounter
--- OUTSIDE RECORDS SUMMARY | 2023-12-22 08:04 | XMS_ITS | Encounter Summary ---
Author Organization [facility] [place] [address] Care Team Providers Care Tractor Operator Battery Name Role Phone Donny Cooper MD Primary Care Provider [phone] [phone] Encounter Details Date Type Department Care Team (Late st Contact Info) Description 07/26/2019 Notes Only Cardiology at [address] [address] Maged Arguelles MD [facility] [place] [address] Social History Tobacco Use Types Packs/Day Years [...] his Medtronic biventricular ICD is reviewed. Suboptimal ONLINE PROJECT MANAGER at 84%. Normal device function. Awaiting Holter to assess PVC burden. Maged Arguelles MD [facility] Cardiac Electrophysiology 07/26/2019 9:04 AM documented in this encounter Plan of Treatment Upcoming Encounters Date Type Department Care Team (Late st Contact Info) Description 02/02/2024 10:00 AM EDT Hospital Encounter Non-Invasive [place] [address] Arrived documented as of this encounter Visit Diagnoses Not on filedocumented in this encounter Care Teams Tractor Operator Battery Relationship Specialty Start Date End Date Donny Cooper MD [address] [place] [address] PCP - General Family Medicine 02/25/19 documented as of this encounter
--- OUTSIDE RECORDS SUMMARY | 2023-12-22 08:04 | XMS_ITS | Encounter Summary ---
Author Organization [facility] Address [address] [place] [address] Care Team Providers Care Circuit Walker Name Role Phone Clem Olvera MD Primary Care Provider [phone] Reason for Referral * (Routine) - Closed Specialty Diagnoses / Procedures Referred By Pedro madera Referred To Contact Beatrice De La Garza NP [address] [place] [phone] Referral ID Status Reason Start Date Expiration Date V isits Requested Visits Authorized [id number] Closed Specialty Services Required 02/27/2016 1 1 Comments You must contact us if we have not contacted you or you have missed your scheduled appointment. If you have any nursing questions, please don't hesitate to call the Cardiac Arrhythmia Service at [facility] at [phone] or , extension [phone]. For any scheduling of appointments, please call [phone] or , extension [phone]. . * (Routine) - Closed Specialty Diagnoses / Procedures Referred By Pedro madera Referred To Contact Beatrice De La Garza NP [address] [address] Referral ID Status Reason Start Date Expiration Date V isits Requested Visits Authorized [id number] Closed Specialty Services Required 02/27/2016 1 1 Comments You have a pre existing appointment with Dr. Olvera on March 05 at 2:00, please have Dr. Olvera check your incision at that visit. * (Routine) - Closed Specialty Diagnoses / Procedures Referred By Contbecca t Referred To Contact Beatrice De La Garza NP [address] [phone] Referral ID Status Reason Start Date Expiration Date V isits Requested Visits Authorized [id number] Closed Specialty Services Required 02/27/2016 1 1 [...] [facility] located at [address] [facility] in [place] -Clinics are also held in [facility], and [place], [place] and [facility]. If you live in those areas, we will make arrangements for follow-up appointments in one of those clinics.. Encounter Details Date Type Department Care Team (Late st Contact Info) Description 02/27/2016 6:30 EDT - 02/28/2016 13:39 EDT Hospital Encounter [facility] Cardiac/Telemetry Unit [address] [place] [address] Gulshan Drummond MD PhD [address] [address] Gulshan Montoya Sa, MD [address] [facility] [address] [place] [phone] AICD lead malfunction, subsequent encounter; ICD [...] EF of 20-25% status post silent inferior [place] in the early . 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 He had heart failure symptoms that started around May 2013, when he was in [place], [place]. This triggered major cardiac workup including [...] then underwent a device upgrade to a CHAR FILTER TANK TENDER-D device with biventricular pacing for his EF [...] been followed in cardiology outreach clinic at [facility] in [place]. Continued high pacing threshold on the epicardial [...] and plans to follow up with his Family Practice Doctor in [place] in 6-8 weeks for which [...] HGBA1C Discharge Follow Up Appointments Scheduled with [facility] Appointments Outside of [facility] We Will Schedule Studies We Will Schedule Appointments We Recommend but have not been Scheduled Beatrice De La Garza NP 02/27/2016 10:59 Associated attestation - Gulshan Montoya Sa, MD - 02/28/2016 1519 EDT Attending Attestation: I saw and evaluated the patient. I discussed the case with the resident/HOTEL AND DINING ROOM CASHIER/fellow and agree with the findings and plan as documented above. Gulshan bullock Sa, MD Cardiac Electrophysiology documented in this encounter Discharge Instructions * Appointments* Beatrice De La Garza NP - 02/27/2016 11:[address] Olvera on 03/05/16 at 2:00 as previously scheduled for a routine visit and for a check of your incision. Follow up with Giselle Hill NP at the [facility] in May, you will be [...] Notes * Lou Alfonso RN - 02/28/2016 6881 EDT Pt awaiting discharge. IV and tele was removed by primary nurse. This RN administered flu shot and provided flu information sheet. AVS and medications reviewed by RN with patient and . AVS statedcoreg was 3.25mg BID, which pt states no, they must have copied it down wrong. I'm not doing that.We've been through this in [place]. It makes me pass out. RN suggested checking with team, which pt denied and states I wont take it twice a day. He did agree to review this medication with his belt picker and plans to remain on his home dosing, which was in the morning. He received dose this am. Ptleft via wheelchair with . * Beatrice Rodriguez - 02/28/2016 1329 EDT Brief visit with patient and as they were being discharged. Patient states he is independent in self care and home management. He feels well supported by friends and neighbors. Patient has Medicare and [facility]. Pharmacy is [facility] in [facility]. No needs identified at time of discharge. will provide transportation. Beatrice Rodriguez RN Case Manager #[phone] documented in this encounter H&P Notes * Navdeep Hurd MD - 02/27/2016 0830 EDT Cardiology Admitting H&P Admit Date: 02/27/2016 Date of Service: 02/27/2016 PCP: Clem Olvera Code Status: Full Code Chief Complaint: FINN, device battery depletion, high pacing threshold on epicardial lead HPI: 74-year-old man with coronary artery disease and ischemic cardiomyopathy status post silent inferior [place] in the early . 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 He had heart failure symptoms that started around May 2013, when he was in [place], [place]. This triggered major cardiac workup including [...] point, his device was upgraded to a CHAR FILTER TANK TENDER-D device with biventricular pacing. By the patient's [...] been followed in cardiology outreach clinic at [facility] in [place]. Continued high pacing threshold on the epicardial LV lead has caused a very rapid battery depletion. Dr. David Adams in [place] recommended against lead extraction and reimplant as [...] Pacemaker insertion 2002 2013 second pacemaker [employer] [facility] Social History Family History Social History Substance Use Topics ??? Smoking status: Former Smoker Years: 35.00 Quit date: 1989 ??? Smokeless tobacco: Not on file ??? Alcohol use 6.6 oz/week 6 Cans of beer, 5 Glasses of wine per week , lives with , retired. Spends leong in [place]. Spends the chery in [place], [place]. Quit smoking in 1990. Has 2 [...] and ischemic cardiomyopathy status post silent inferior [place] in the early . Also diagnosed with [...] point, his device was upgraded to a CHAR FILTER TANK TENDER-D device with biventricular pacing with a surgically [...] EST) 03/12/2016 12:4 3 EST Scan 2 Calendar Control Clerk Blood Bank PROCEDURE/MINOR JUDD GICAL ORDERABLES * ECG REPORT - SCANNED (03/04/2016 14:06 EDT) 03/04/2016 14:0 6 EDT Scan 2 Calendar Control Clerk Blood Bank PROCEDURE/MINOR JUDD GICAL ORDERABLES * ECG REPORT - SCANNED (03/04/2016 14:06 EDT) 03/04/2016 14:0 6 EDT Scan 2 Calendar Control Clerk Blood Bank PROCEDURE/MINOR JUDD GICAL ORDERABLES * IMPLANT RECORD - SCANNED (03/04/2016 14:06 EDT) 03/04/2016 14:0 6 EDT Scan 2 Calendar Control Clerk Blood Bank PROCEDURE/MINOR JUDD GICAL ORDERABLES * ECG REPORT - SCANNED (03/01/2016 8:58 EDT) 03/01/2016 8:58 EDT Scan 2 Calendar Control Clerk Blood Bank PROCEDURE/MINOR JUDD GICAL ORDERABLES * ECG REPORT - SCANNED (03/01/2016 8:58 EDT) 03/01/2016 8:58 EDT Scan 2 Calendar Control Clerk Blood Bank PROCEDURE/MINOR JUDD GICAL ORDERABLES * CHEST PA [...] IMAGING ORDERABLES * HEMAGRAM (02/28/2016 5:44 EDT) [facility] WBC 9.84 4.0 - 10.4 K/cmm 02/28/2016 6:26 EDT [facility] RBC 4.42 4.36 - 5.78 M/cmm 02/28/2016 6:26 T [facility] Hemoglobin 14.2 13.8 - 17.3 gm/dl 02/28/2016 6:26 [facility] HCT 40.9 39.5 - 50.2 % 02/28/2016 6:26 [facility] MCV 93 81 - 95 fl 02/28/2016 6:26 [facility] MCH 32.1 27.6 - 33.0 pg 02/28/2016 6:26 [facility] MCHC 34.7 32.8 - 36.4 gm/dl 02/28/2016 6:26 [facility] RDW-CV 13.1 11.8 - 14.1 % 02/28/2016 6:26 [facility] RDW-SD 44.6 36.5 - 45.9 fl 02/28/2016 6:26 [facility] PLT 151 141 - 377 K/cmm 02/28/2016 6:26 [facility] MPV 11.2 9.5 - 12.7 fl 02/28/2016 6:26 [facility] Blood specimen (specimen) BLOOD SPECIMEN / Unknown 02/28/2016 5:44 EDT 02/28/2016 6:13 EDT Beatrice De La Garza NP HEMATOLOGY & PF4 ORDERABLES [facility] [address] [place] [address] * (ABNORMAL) CREATININE (02/28/2016 5:44 EDT) Creatinine 0.65(L) 0.66 - 1.25 mg/dl 02/28/2016 6:48 EDT [facility] GFR, Calculated 95 >60 ml/min/1.7 3m2 02/28/2016 6:48 EDT [facility] Comment: eGFR calculated using CKD-EPI equation for non Americans. Multiply eGFR by 1.16 for Americans. Blood specimen (specimen) BLOOD SPECIMEN / Unknown 02/28/2016 5:44 EDT 02/28/2016 6:13 EDT Beatrice De La Garza NP CHEMISTRY & B LOOD GAS ORDERABLES Performing Organization Address [facility]/ZIP Co de Phone Number [facility] [address] [place] [address] * BUN (02/28/2016 5:44 EDT) BUN 14 10 - 26 mg/dl 02/28/2016 6:48 EDT [facility] Blood specimen (specimen) BLOOD SPECIMEN / Unknown 02/28/2016 5:44 EDT 02/28/2016 6:13 EDT Beatrice De La Garza HOTEL AND DINING ROOM CASHIER CHEMISTRY & B LOOD GAS ORDERABLES Performing Organization Address [facility] Co de Phone Number [facility] [address] [place] [address] * ELECTROLYTES (02/28/2016 5:44 EDT) Sodium 138 136 - 145 mEq/L 02/28/2016 6:48 EDT [facility] Potassium 4.7 3.5 - 5.0 mEq/L 02/28/2016 6:48 EDT [facility] Chloride 104 96 - 110 mEq/L 02/28/2016 6:48 EDT [facility] CO2 25 22 - 32 mEq/L 02/28/2016 6:48 EDT [facility] Comment:Note new reference r hong 02/19/16 Blood specimen (specimen) BLOOD SPECIMEN / Unknown 02/28/2016 5:44 EDT 02/28/2016 6:13 EDT Beatrice De La Garza NP CHEMISTRY & B LOOD GAS ORDERABLES [facility] [address] [place] [address] * PORTABLE CHEST 1 VIEW (02/27/2016 12:46 [...] 12:41 EDT) 02/27/2016 12:4 1 EDT Narrative [facility] E[facility] - 02/28/2016 8:57 EDT ? [facility] ? Test Date: ?2016-02-27 Pat Name: ? NABIL IGLESIAS ? Department: ?? HERN[facility]NDEZ 5 ? Room: ? MW514 Gender: ? M ?Mechanic Marine Engine: ?? [id number] : ?1940 ? Requested By: KAIN REED L Order Number: [id number] ? Reading MD: ?? BRAYAN CUENCA MD ? Measurements Intervals ?[place] ? Rate: ? 63 ? P: ?15 [place]: ? 159 ?QRS: ?234 QRSD: ? 156 [...] Date: 2016-02-27 Pat Name: NABIL IGLESIAS Department: [place] [address] Room: [facility] Gender: M Mechanic Marine Engine: [id number] : 1940 Requested By: KAIN Gallagher Order Number: [id number] Reading MD: BRAYAN CUENCA MD Measurements Intervals [place] Rate: 63 P: 15 [place]: 159 QRS: 234 QRSD: 156 T: 15 QT: 479 QTc: 493 Interpretive Statements ELECTRONIC VENTRICULAR PACEMAKER Compared to ECG 02/27/2016 08:10:34 No significant changes I reviewed the tracing and have either agreed or edited the findings inthis report. Electronically Signed On 02-28-16 08:57:02 EDT by BRAYAN BEEBE. Gulshan Drummond MD PhD CARDIA C ECG ORDERABLES [facility] EKG * PROTIME (02/27/2016 8:45 EDT) Pro Time 12.3 10.3 - 13.1 secs 02/27/2016 9:10 EDT [facility] Comment: New prothrombin t josue range effective 01/29/16 I.N.R. 1.1 0.9 - 1.1 Ratio 02/27/2016 9:10 EDT [facility] Comment: Moderate Intensity Coumadin INR = 2.0-3.0 Adjustments in anticoagulant therapy dose should be based upon the INR and NOT the Pro Time. Blood specimen (specimen) BLOOD SPECIMEN / Unknown 02/27/2016 8:45 EDT 02/27/2016 8:54 EDT Gulshan Drummond MD PhD HEMATO LOGY & PF4 ORDERABLES [facility] [address] [place] [address] * HEMAGRAM (02/27/2016 8:45 EDT) WBC 6.47 4.0 - 10.4 K/cmm 02/27/2016 8:57 EDT [facility] RBC 4.51 4.36 - 5.78 M/cmm 02/27/2016 8:57 EDT [facility] Hemoglobin 14.7 13.8 - 17.3 gm/dl 02/27/2016 8:57 EDT [facility] HCT 41.7 39.5 - 50.2 % 02/27/2016 8:57 EDT [facility] MCV 93 81 - 95 fl 02/27/2016 8:57 EDT [facility] MCH 32.6 27.6 - 33.0 pg 02/27/2016 8:57 EDT [facility] MCHC 35.3 32.8 - 36.4 gm/dl 02/27/2016 8:57 T [facility] RDW-CV 13.1 11.8 - 14.1 % 02/27/2016 8:57 EDT [facility] RDW-SD 44.0 36.5 - 45.9 fl 02/27/2016 8:57 EDT [facility] PLT 176 141 - 377 K/cmm 02/27/2016 8:57 EDT [facility] MPV 10.7 9.5 - 12.7 fl 02/27/2016 8:57 EDT [facility] Blood specimen (specimen) BLOOD SPECIMEN / Unknown 02/27/2016 8:45 EDT 02/27/2016 8:54 EDT Gulshan Drummond MD PhD HEMATO LOGY & PF4 ORDERABLES [facility] [address] [place] [address] * ELECTROLYTES (02/27/2016 8:45 EDT) Sodium 142 136 - 145 mEq/L 02/27/2016 9:13 EDT [facility] Potassium 4.7 3.5 - 5.0 mEq/L 02/27/2016 9:13 EDT [facility] Chloride 103 96 - 110 mEq/L 02/27/2016 9:13 EDT [facility] CO2 27 22 - 32 mEq/L 02/27/2016 9:13 EDT [facility] Comment:Note new reference r hong 02/19/16 Blood specimen (specimen) BLOOD SPECIMEN / Unknown 02/27/2016 8:45 EDT 02/27/2016 8:54 EDT Gulshan Drummond MD PhD CHEMIS TRY & BLOOD GAS ORDERABLES Performing Organization Address [facility] de Phone Number [facility] [address] [place] [address] * CREATININE (02/27/2016 8:45 EDT) Creatinine 0.69 0.66 - 1.25 mg/dl 02/27/2016 9:13 EDT [facility] GFR, Calculated 93 >60 ml/min/1.7 3m2 02/27/2016 9:13 EDT [facility] Comment: eGFR calculated using CKD-EPI equation for non Americans. Multiply eGFR by 1.16 for Americans. Blood specimen (specimen) BLOOD SPECIMEN / Unknown 02/27/2016 8:45 EDT 02/27/2016 8:54 EDT Gulshan Drummond MD PhD CHEMIS TRY & BLOOD GAS ORDERABLES Performing Organization Address City/[facility] Co de Phone Number [facility] [address] [place] [address] * BUN (02/27/2016 8:45 EDT) BUN 17 10 - 26 mg/dl 02/27/2016 9:13 EDT [facility] Blood specimen (specimen) BLOOD SPECIMEN / Unknown 02/27/2016 8:45 EDT 02/27/2016 8:54 EDT Gulshan Drummond MD PhD CHEMIS TRY & BLOOD GAS ORDERABLES [facility] [address] [place] [address] * EKG 12-LEAD (02/27/2016 8:08 EDT) 02/27/2016 8:08 EDT Narrative [facility] EKG - 02/28/2016 9:01 EDT ? [facility] ? Test Date: ?2016-02-27 Pat Name: ? NABIL IGLESIAS ? Department: ?? PeriopMainC ? Room: ? [id number] Gender: ? M ?Mechanic Marine Engine: ?? [id number] : ?1940 ? Requested By: MARCIA Boo Order Number: [id number] ? Julia WRIGHT: ?? BRAYAN CUENCA MD ? Measurements Intervals ?[place] ? Rate: ? 69 ? P: ?147 [place]: ? 134 ?QRS: ?-67 QRSD: ? 160 [...] Date: 2016-02-27 Pat Name: NABIL IGLESIAS Department: [facility] Room: [id number] Gender: M Mechanic Marine Engine: [id number] : 1940 Requested By: MARCIA Boo Order Number: [id number] Reading MD: BRAYAN CUENCA MD Measurements Intervals [place] Rate: 69 P: 147 [place]: 134 QRS: -67 QRSD: 160 T: -59 QT: 434 QTc: 467 Interpretive Statements ELECTRONIC ATRIAL PACEMAKER ELECTRONIC VENTRICULAR PACEMAKER Compared to ECG 02/27/2016 08:08:46 No significant changes I reviewed the tracing and have either agreed or edited the findings inthis report. Electronically Signed On 02-28-16 09:01:04 EDT by BRAYAN BEEBE. Navdeep Hurd MD CARDIAC ECG ORD ERABLES [facility] EKG documented in this encounter Visit [...] Reason: Other - Comment: pt already took SALES SUPPORT SPECIALIST, takes other meds at HS) 921 (Given [...] Reason: Other - Comment: pt already took SALES SUPPORT SPECIALIST, takes other meds at HS)2100 (Given - Provider: Mady Bruno RN) spironolactone (ALDACTONE) tablet 12.5 mg 12.5 mg, oral, DAILY, First dose on Thu02/27/16 at 1245, Until Discontinued, Routine 1306 (Not Given - Provider: Nneka Stuart RN - Reason: Other - Comment: pt already took SALES SUPPORT SPECIALIST, takes other meds at HS)2102 (Given - Provider: Mady Bruno RN) tamsulosin (FLOMAX) capsule 0.4 mg 0.4 mg, oral, DAILY, First dose on Thu02/27/16 at 1245, Until Discontinued, Routine 1306 (Not Given - Provider: Nneka Stuart RN - Reason: Other - Comment: pt already took SALES SUPPORT SPECIALIST, takes other meds at HS) 921 (Given [...] 02/02 documented in this encounter Care Teams Circuit Walker Relationship Specialty Start Date End Date Clem Olvera MD [address] [place] [address] PCP - General 12/18/15 documented as of this encounter
--- OUTSIDE RECORDS SUMMARY | 2023-12-22 08:04 | XMS_ITS | Encounter Summary ---
[place] [address] Care Team Providers Care Neurourologist Name Role Phone Donny Cooper MD Primary Care Provider [phone] Encounter Details Date Type Department Care Team (Latest Contact Info) Description 07/07/2022 10:00 AM EST - 07/07/2022 11:59 PM EST Hospital Encounter [place] [address] Discharge Disposition: Home Social History Tobacco Use [...] AM EDT Hospital Encounter [place] [address] Arrived documented as of this [...] on filedocumented in this encounter Care Teams Neurourologist Relationship Specialty Start Date End Date Donny Cooper MD [address] [place] [address] PCP - General Family Medicine 02/25/19 documented as of this encounter
--- OUTSIDE RECORDS SUMMARY | 2023-12-22 08:04 | XMS_ITS | Encounter Summary ---
Author Organization [facility] Address [address] [place] [address] Care Team Providers Care Track Inspecting Supervisor Name Role Phone Unavailable Primary Care Provider Unavailabl e Encounter Details Date Type Department Care Team (Late st Contact Info) Description 12/02/2012 Results Only [facility] ([facility]) [address] [place] [id number] Satinder Edwards MD [address] [place] [address] Social History Tobacco Use Types Packs/Day Years [...] ? NABIL IGLESIAS ? Accession #: ? [id number] ? : ? 1940 (Age: 72) ??M [...] Co de Phone Number DIVYA BERRY [address] [place] [address] documented in this encounter Visit Diagnoses Not on filedocumented in this encounter
--- OUTSIDE RECORDS SUMMARY | 2023-12-22 08:04 | XMS_ITS | Encounter Summary ---
[place] [address] Care Team Providers Care Heel Stiffener Name Role Phone Donny Cooper MD Primary Care Provider [phone] Encounter Details Date Type Department Care Team (Latest Contact Info) Description 08/06/2023 10:00 AM EDT - 08/06/2023 11:59 PM EDT Hospital Encounter Non-[place] [address] Discharge Disposition: Home Social History Tobacco Use [...] AM EDT Hospital Encounter Non[place] [phone] Arrived documented as of this encounter Visit Diagnoses Not on filedocumented in this encounter Care Teams Heel Stiffener Relationship Specialty Start Date End Date Donny Cooper MD [address] [place] [address] PCP - General Family Medicine 02/25/19 documented as of this encounter
--- OUTSIDE RECORDS SUMMARY | 2023-12-22 08:04 | XMS_ITS | Encounter Summary ---
[place] [address] Care Team Providers Care Sound Ranging Crewmember Name Role Phone Donny Cooper MD Primary Care Provider [phone] Encounter Details Date Type Department Care Team (Latest Contact Info) Description 11/04/2023 10:00 AM EDT - 11/04/2023 11:59 PM EDT Hospital Encounter Non-[place] [address] Discharge Disposition: Home Social History Tobacco Use [...] AM EDT Hospital Encounter Non-Invasive [place] [phone] Arrived documented as of this encounter Procedures [...] on filedocumented in this encounter Care Teams Sound Ranging Crewmember Relationship Specialty Start Date End Date Donny Cooper MD [address] [place] [address] PCP - General Family Medicine 02/25/19 documented as of this encounter
--- OUTSIDE RECORDS SUMMARY | 2023-12-22 08:04 | XMS_ITS | Encounter Summary ---
[place] [address] Care Team Providers Care Heel Seat Flap Stapler Name Role Phone Donny Cooper MD Primary Care Provider [phone] Encounter Details Date Type Department Care Team (Latest Contact Info) Description 01/03/2023 10:00 AM EDT - 01/03/2023 11:59 PM EDT Hospital Encounter Non-[place] [address] Discharge Disposition: Home Social History Tobacco Use [...] AM EDT Hospital Encounter Non-[place] [phone] Arrived documented as of this encounter Procedures [...] filedocumented in this encounter Care Teams Heel Seat Flap Stapler Relationship Specialty Start Date End Date Donny Cooper MD [address] [place] [address] PCP - General Family Medicine 02/25/19 documented as of this encounter
--- OUTSIDE RECORDS SUMMARY | 2023-12-22 08:04 | XMS_ITS | Encounter Summary ---
Author Organization [facility] Address [address] [place] [address] Care Team Providers Care Water Chemist Name Role Phone Clem Olvera MD Primary Care Provider [phone] Encounter Details Date Type Department Care Team (Latest Contact Info) Description 12/20/2015 10:52 EDT - 12/20/2015 23:52 EDT Hospital Encounter [facility] Cardiovascular Unit [address] [place] [address] Navdeep Hurd MD [address] [place] [address] [address] Discharge Disposition: Home or Self [...] no need to beNPO or have a sulky driver. However, his will be accompanying him. They are [place] someone to the airport [place] 1000 and then will come here and check-in around 1145. He agrees to have a shower. documented in this encounter Procedure Notes * Fantasma Dhillon MD - 12/20/2015 1356 EDT IR Brief Procedure Note Attending: Leo Certified Green Building Engineer: Alejo Pre-op Dx: Arrhythmia, need for pacemaker [...] 12/19 documented in this encounter Care Teams Water Chemist Relationship Specialty Start Date End Date Clem Olvera MD [address] [place] [address] PCP - General 12/18/15 documented as of this encounter
--- OUTSIDE RECORDS SUMMARY | 2023-12-22 08:04 | XMS_ITS | Encounter Summary ---
Author Organization Formerly [facility] [place] [address] Care Team Providers Care Director Traffic And Planning Name Role Phone Donny Cooper MD Primary Care Provider [phone] Encounter Details Date Type Department Care Team (Latest Contact Info) Description 12/18/2020 11:57 AM EDT - 12/18/2020 11:59 PM EDT Hospital Encounter Non-[place] [address] Maged Arguelles MD [facility] [place] [address] Cardiomyopathy, primary Discharge Disposition: Home Social History [...] AM EDT Hospital Encounter Non-Invasive [place] [address] Arrived documented as of this encounter Procedures Procedure Name Priority Date/Time Associated Diagnosis Comments ICD INTERROGATION 3 MONTH Routine 12/18/2020 12:00 PM EDT Cardiomyopathy, primary documented in this encounter Results * ICD INTERROGATION 3 MONTH (12/18/2020 12:00 PM EDT) Anatomical Region Laterality Modality Other Narrative 12/23/2020 11:08 PM EDT MDT DOCUMENTATION SPEC-D remote reviewed. Normal device function. Inadequate DOCUMENTATION SPEC at 80%. Maged Arguelles MD [facility] Cardiac Electrophysiology 12/23/2020 11:06 PM Maged Arguelles MD IMPLANTABLE CARDIAC DEVICE documented in this encounter Visit Diagnoses Diagnosis Cardiomyopathy, primary Other primary cardiomyopathies documented in this encounter Care Teams Director Traffic And Planning Relationship Specialty Start Date End Date Donny Cooper MD [address] [facility] [address] [place] [address] PCP - General Family Medicine 02/25/19 documented as of this encounter
--- OUTSIDE RECORDS SUMMARY | 2023-12-22 08:04 | XMS_ITS | Referral Summary ---
Author Organization [facility] Address [address] [place] [address] Care Team Providers Care Gum Machine Operator Name Role Phone Clem Olvera MD Primary Care Provider [phone] Allergies No known active allergies Medications Medication [...] Advance Directives For more information, please contact: [phone] * Full Code (Latest Code Status on File) Date Activated Date Inactivated Comments 02/27/2016 8:49 02/28/2016 15:40 Question Answer Comments Reason for decision includes: Full code consistent with overall plan of care Who participated in the discussion? Not Discusse d Care Teams Gum Machine Operator Relationship Specialty Start Date End Date Clem Olvera MD [address] [place] [id number] PCP - General 12/18/15
--- OUTSIDE RECORDS SUMMARY | 2023-12-22 08:04 | XMS_ITS | Encounter Summary ---
Author Organization [facility] [place] [address] Care Team Providers Care Marine Equipment Sales Engineer Name Role Phone Donny Cooper MD Primary Care Provider [phone] Encounter Details Date Type Department Care Team (Latest Contact Info) Description 10/03/2022 10:00 AM EDT Office Visit Cardiology at [address] [address] Eleno No PA [facility] [place] [address] Cardiomyopathy, primary; Presence of cardiac resynchronization therapy defibrillator (CONCRETE BOOM PUMP OPERATOR-D); Diaphragmatic stimulation by cardiac pacemaker, initial encounter [...] original note were not included. Cardiac Device CONCRETE BOOM PUMP OPERATOR-D Programming Evaluation Nabil Iglesias [id number] 10/03/2022 History: Mr. 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 [...] AM EDT Hospital Encounter Non-Invasive [place] [address] Arrived documented as of this encounter Procedures Procedure Name Priority Date/Time Associated Diagnosis Comments EKG 12-LEAD Routine 10/03/2022 11:00 AM EDT Cardiomyopathy, primary Presence of cardiac resynchronization therapy defibrillator (CONCRETE BOOM PUMP OPERATOR-D) Diaphragmatic stimulation by cardiac pacemaker, initial encounter documented in this encounter Results * EKG 12 Lead (10/03/2022 11:00 AM EDT) Ventricular rate 74 BPM MUSE SYSTEM Atrial Rate 74 BPM MUSE SYSTEM P-R Interval 154 ms MUSE SYSTEM QRS Duration 162 ms MUSE SYSTEM Q-T Interval 470 ms MUSE SYSTEM QTC Calculated (Bezet) 521 ms MUSE SYSTEM Calculated P [place] 30 degrees MUSE SYSTEM Calculated R [place] -98 degrees MUSE SYSTEM Calculated T [place] 41 degrees MUSE SYSTEM INTERPRETATION Atrial-sense d [...] cardiomyopathies Presence of cardiac resynchronization therapy defibrillator (CONCRETE BOOM PUMP OPERATOR-D) Diaphragmatic stimulation by cardiac pacemaker, initial encounter documented in this encounter Care Teams Marine Equipment Sales Engineer Relationship Specialty Start Date End Date Donny Cooper MD [address] [place] [address] PCP - General Family Medicine 02/25/19 documented as of this encounter
--- OUTSIDE RECORDS SUMMARY | 2023-12-22 08:04 | XMS_ITS | Encounter Summary ---
Author Organization [facility] Address [address] [place] [address] Care Team Providers Care Information Systems Security Developer Name Role Phone Clem Olvera MD Primary Care Provider [phone] Encounter Details Date Type Department Care Team (Late st Contact Info) Description 03/16/2019 Abstract [facility] Cardiology Clinic [address] [place] [address] Ronal Avelar, JADON AV block, 2nd degree [...] Laterality Modality Device Narrative 03/24/2019 10:30 EST [facility] Cardiology Device Visit Machine Clothing Man: CPM Brax[employer] Device Type: PSYCHOLOGIST INDUSTRIAL ORGANIZATIONAL-D Service: Remote ? 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
--- OUTSIDE RECORDS SUMMARY | 2023-12-22 08:04 | XMS_ITS | Encounter Summary ---
[place] [address] Care Team Providers Care Analysis Reporting Developer Name Role Phone Donny Cooper MD Primary Care Provider [phone] Encounter Details Date Type Department Care Team (Latest Contact Info) Description 04/03/2023 10:00 AM EST - 04/03/2023 11:59 PM [facility] Hospital Encounter [place] [address] Discharge Disposition: Home Social History Tobacco Use [...] AM EDT Hospital Encounter [place] [address] Arrived documented as of this [...] on filedocumented in this encounter Care Teams Analysis Reporting Developer Relationship Specialty Start Date End Date Donny Cooper MD [address] [place] [address] PCP - General Family Medicine 02/25/19 documented as of this encounter
--- OUTSIDE RECORDS SUMMARY | 2023-12-22 08:04 | XMS_ITS | Encounter Summary ---
Author Organization [facility] Address [address] [place] [address] Care Team Providers Care Market Editor Name Role Phone Unknown, Provider Primary Care Provider [phone] Clem Olvera MD Primary Care Provider [phone] Encounter Details Date Type Department Care Team (Late st Contact Info) Description 11/29/2015 Pre-Procedure Orders Encounter [facility] [address], [place] [id number] Navdeep Hurd MD [address] [place] [address] [address] Social History Tobacco Use Types [...] Patient: Nabil Streeter. Attending: Dr. Moran Scrrajinder Supervisor Histology: Dr. Fantasma Dhillon History/indication: The patient is [...] Patient: Nabil Streeter Attending: Dr. Dean Bailey Supervisor Histology: Dr. Fantasma Dhillon History/indication: The patient is [...] filedocumented in this encounter Care Teams Market Editor Relationship Specialty Start Date End Date Unknown, Provider, PCP - General 12/06/12 12/17/15 Clem Olvera MD [address] [place] [address] PCP - General 12/18/15 documented as of this encounter
--- OUTSIDE RECORDS SUMMARY | 2023-12-22 08:04 | XMS_ITS | Encounter Summary ---
[place] [address] Care Team Providers Care Floor Sanding Machine Operator Name Role Phone Donny Cooper MD Primary Care Provider [phone] Encounter Details Date Type Department Care Team [...] AM EDT Hospital Encounter Non-Invasive [place] [address] Arrived documented as of this encounter Visit Diagnoses Not on filedocumented in this encounter Care Teams Floor Sanding Machine Operator Relationship Specialty Start Date End Date Donny Cooper MD [address] [place] [address] PCP - General Family Medicine 02/25/19 documented as of this encounter
--- OUTSIDE RECORDS SUMMARY | 2023-12-22 08:04 | XMS_ITS | Encounter Summary ---
Author Organization [facility] Address [address] [place] [address] Care Team Providers Care Hospice Admitting Clerk Name Role Phone Clem Olvera MD Primary Care Provider [phone] Reason for Visit * Reason Onset Date Comments Appointment Related 10/23/2016 Check for fo llow up of pacer Encounter Details Date Type Department Care Team ([facility] Contact Info) Description 10/23/2016 Telephone [facility] Cardiology - [address] [place] [address] Pacemaker, Pace Appointment Related [...] are being followed by Dr. Hurd at [facility]. documented in this encounter Plan of Treatment Not on file documented as of this encounter Visit Diagnoses Not on filedocumented in this encounter Care Teams Hospice Admitting Clerk Relationship Specialty Start Date End Date Clem Olvera MD [address] [place] [address] PCP - General 12/18/15 documented as of this encounter
--- OUTSIDE RECORDS SUMMARY | 2023-12-22 08:04 | XMS_ITS | Encounter Summary ---
Author [place] [address] Care Team Providers Care Laboratory Director Name Role Phone Donny Cooper MD Primary Care Provider [phone] Encounter Details Date Type Department Care Team (Latest Contact Info) Description 10/05/2022 10:00 AM EDT - 10/05/2022 11:59 PM EDT Hospital Encounter [place] [address] Discharge Disposition: Home Social History Tobacco Use [...] AM EDT Hospital Encounter [place] [address] Arrived documented as of this encounter Procedures [...] on filedocumented in this encounter Care Teams Laboratory Director Relationship Specialty Start Date End Date Donny Cooper MD [address] [place] [address] PCP - General Family Medicine 02/25/19 documented as of this encounter
--- OUTSIDE RECORDS SUMMARY | 2023-12-22 08:04 | XMS_ITS | Clinical Summary ---
Author Organization [facility] Address [address] [place] [address] Care Team Providers Care Human Resources Temp Name Role Phone Clem Olvera MD Primary Care Provider [phone] Allergies No known active allergies Medications Medication [...] PACEMAKER INSERTION 05/04/2002 - 05/03/20032013 second pacemaker [facility] Medical History Medical History Date Comments CAD [...] Advance Directives For more information, please contact: [phone] * Full Code (Latest Code Status on File) Date Activated Date Inactivated Comments 02/27/2016 8:49 02/28/2016 15:40 Question Answer Comments Reason for decision includes: Full code consistent with overall plan of care Who participated in the discussion? Not Discusse d Care Teams Human Resources Temp Relationship Specialty Start Date End Date Clem Olvera MD [address] [place] [address] PCP - General 12/18/15
--- OUTSIDE RECORDS SUMMARY | 2023-12-22 08:04 | XMS_ITS | Encounter Summary ---
Author Organization [facility] Address [address] [place] [address] Care Team Providers Care Edge Bonder Name Role Phone Unavailable Primary Care Provider Unavailabl e Encounter Details Date Type Department Care Team (Late st Contact Info) Description 05/06/2001 Results Only [facility] [address] [place] [address] Hernandez Partida MD [address] [place] [phone] Social History Tobacco Use Types Packs/Day Years [...] is submitted entirely in cassette (B). ??(Naty Caal)/[facility] End of Report [facility] 05/06/2001 05/07/2001 9:2 5 EST Hernandez Partida MD PATHOLOGY ORDERABLES [facility] [address] [place] [address] documented in this encounter Visit Diagnoses Not on filedocumented in this encounter
--- OUTSIDE RECORDS SUMMARY | 2023-12-22 08:04 | XMS_ITS | Clinical Summary ---
Author Organization [facility] [place] [address] Care Team Providers Care Processor Inspector Name Role Phone Donny Cooper MD Primary Care Provider [phone] Allergies No known active allergies Medications Medication [...] PM EDT Hospital Encounter Non-[place] [address] Discharge Disposition: Home from Last 3 Months [...] AM EDT Hospital Encounter Non-[place] [address] Arrived Health Maintenance Due Date Last Done Comments Tdap adult 08/19/1959 Tetanus vaccine 08/19/1959 Zoster vaccine (1 of 2) 1990 Advance Directive 08/19/1995 Pneumoccocal Vaccine: 65+ (2 of 2 - PCV) 05/04/2009 05/04/2008 Covid-19 Vaccine ( - 2022- season) 2023 Influenza (Flu) vaccine (1 o f 1 - Influenza standard series) 01/03/2024 02/01/2010, 03/06/2006, 02/24/2005 Medical Devices Implanted Type Area Sustainable Products Marketing Manager Device Identifier Shelf Expiration Date Model / Serial / Lot Mdt : [id number] : [id number] Implanted: (Quantity not on file) Cardiac Resynchronization Therapy - Defibrillator Chest Medtronic - [id number] / [id number] / Care Teams Processor Inspector Relationship Specialty Start Date End Date Donny Cooper MD [address] [place], [place] [address] PCP - General Family Medicine 02/25/19
--- OUTSIDE RECORDS SUMMARY | 2023-12-22 08:04 | XMS_ITS | Encounter Summary ---
[place] [address] Care Team Providers Care Undergraduate Intern Name Role Phone Donny Cooper MD Primary Care Provider [phone] Encounter Details Date Type Department Care Team (Latest Contact Info) Description 04/08/2022 10:00 AM EST - 04/08/2022 11:59 PM [facility] Hospital Encounter [place] [address] Discharge Disposition: Home Social History Tobacco Use [...] AM EDT Hospital Encounter Non[place] [address] Arrived documented as of this [...] on filedocumented in this encounter Care Teams Undergraduate Intern Relationship Specialty Start Date End Date Donny Cooper MD [address] [place] [address] PCP - General Family Medicine 02/25/19 documented as of this encounter
--- OUTSIDE RECORDS SUMMARY | 2023-12-22 08:04 | XMS_ITS | Encounter Summary ---
[place] [address] Care Team Providers Care Product Sales Representative Name Role Phone Donny Cooper MD Primary Care Provider [phone] Encounter Details Date Type Department Care Team (Late st Contact Info) Description 06/14/2020 Telephone Cardiology at [address] [address] Nhung Briggs Social History Tobacco Use Types [...] like to be seen at [facility]. Email sent to Brittaney Hernandez at [facility] asking her to reach out to pt to set up the appt with either Dr. Arguelles or LANG Albert. Nhung Allen Electrophysiology Scheduling [id number] option 2 documented in this encounter Plan of Treatment Upcoming Encounters Date Type Department Care Team (Late st Contact Info) Description 02/02/2024 10:00 AM EDT Hospital Encounter Non-[place] [address] Arrived documented as of this encounter Visit Diagnoses Not on filedocumented in this encounter Care Teams Product Sales Representative Relationship Specialty Start Date End Date Donny Cooper MD [address] [place] [address] PCP - General Family Medicine 02/25/19 documented as of this encounter
--- OUTSIDE RECORDS SUMMARY | 2023-12-22 08:05 | XMS_ITS | Encounter Summary ---
[place] [address] Care Team Providers Care Human Resources Leader Name Role Phone Marques Martinez MD Primary Care Provider [phone] Encounter Details Date Type Department Care Team (Late st Contact Info) Description 10/03/2010 Abstract [place] [address] Marina Orosco, JADON Social History Tobacco Use [...] Hospital Encounter Non-Invasive [place] [address] Arrived documented as of this encounter Visit Diagnoses Not on filedocumented in this encounter Care Teams Human Resources Leader Relationship Specialty Start Date End Date Marques Martinez MD [address] [place] [address] PCP - General 04/01/10 04/08/11 documented as of this encounter
--- OUTSIDE RECORDS SUMMARY | 2023-12-22 08:05 | XMS_ITS | Encounter Summary ---
Author Organization [facility] [place] [address] Care Team Providers Care Design And Sales Consultant Name Role Phone Marques Martinez MD Primary Care Provider [phone] Encounter Details Date Type Department Care Team (Late st Contact Info) Description 10/09/2010 11:35 AM EDT - 10/09/2010 11:59 PM EDT Hospital Encounter XRay at [address] [place] [address] Social History Tobacco Use Types Packs/Day Years [...] EDT Hospital Encounter Non-Invasive Cardiology Lab [facility] [place] [address] Arrived documented as of this encounter Visit Diagnoses Not on filedocumented in this encounter Care Teams Design And Sales Consultant Relationship Specialty Start Date End Date Marques Martinez MD [address] [place] [address] PCP - General 04/01/10 04/08/11 documented as of this encounter
--- OUTSIDE RECORDS SUMMARY | 2023-12-22 08:05 | XMS_ITS | Encounter Summary ---
Author Organization [place] [address] Care Team Providers Care Gasser Machine Operator Name Role Phone Marques Martinez MD Primary Care Provider Encounter Details Date Type Department Care Team (Late st Contact Info) Description 09/11/2010 Orders [place] [address] Jairon [place]enton MD [facility] [place] [address] Fracture of patella, left, closed (Primary Dx) [...] AM EDT Hospital Encounter Non-[place]vasive [place] [address] Arrived documented as of this encounter Visit Diagnoses Diagnosis Fracture of patella, left, closed- Primary Closed fracture of patella documented in this encounter Care Teams Gasser Machine Operator Relationship Specialty Start Date End Date Marques Martinez MD [address] [place] [address] PCP - General 04/01/10 04/08/11 documented as of this encounter
--- OUTSIDE RECORDS SUMMARY | 2023-12-22 08:05 | XMS_ITS | Encounter Summary ---
Author Organization [facility] [place] [address] Care Team Providers Care Recovery Advocate Name Role Phone Marques Martinez MD Primary Care Provider [phone] Encounter Details Date Type Department Care Team (Late st Contact Info) Description 05/01/2010 3:10 PM EST Office [place] [address] Jairon Fenton MD [facility] DR [place]OPA[place] [address] Discharge Disposition: Home Social History Tobacco Use [...] AM EDT Hospital Encounter [place] [address] Arrived documented as of this encounter Visit Diagnoses Not on filedocumented in this encounter Care Teams Recovery Advocate Relationship Specialty Start Date End Date Marques Martinez MD [address] [place] [address] PCP - General 04/01/10 04/08/11 documented as of this encounter
--- OUTSIDE RECORDS SUMMARY | 2023-12-22 08:05 | XMS_ITS | Encounter Summary ---
Author Organization [facility] [address] Care Team Providers Care Sheriff Sergeant Name Role Phone Marques Martinez MD Primary Care Provider [phone] Encounter Details Date Type Department Care Team (Late st Contact Info) Description 03/30/2010 [place] [address] Javier Barajas MD [facility] DR EMERGENCY [place] [address] Social History Tobacco Use Types Packs/Day Years [...] AM EDT Hospital Encounter Non[place] [address] Arrived documented as of this encounter Procedures [...] AM EST Jairon Fenton MD CHEMISTRY ORDERABLES [facility] * (ABNORMAL) CREATININE, SERUM (04/01/2010 6:09 [...] Fenton MD CHEMISTRY ORDERABLES Performing Organization Address [facility] de Phone Number CERNER [facility] * BUN (04/01/2010 6:09 AM EST) Blood Urea Nitrogen 12 10 - 20 mg/dL [facility] Blood specimen (specimen) 04/01/2010 6:09 AM EST 04/01/2010 6:09 AM EST Jairon Fenton MD CHEMISTRY ORDERABLES Performing Organization Address [facility] de Phone Number CERNER MILLENNIUM [...] MD HEMATOLOGY ORDERABLE S Performing Organization Address [facility] de Phone Number CERNER MILLENNIUM [...] Fenton MD CHEMISTRY ORDERABLES Performing Organization Address [facility] Phone Number CERIVIS MILLENNIUM * ELECTROLYTE PANEL (03/30/2010 6:05 PM EST) Pathologist [facility] Sodium 135 135 - 145 mmol/L CERNER [...] Fenton MD CHEMISTRY ORDERABLES Performing Organization Address [facility] Co de Phone Number CERIVIS MILLENNIUM * CREATININE, SERUM (03/30/2010 6:05 PM EST) Creatinine 0.87 0.80 - 1.50 mg/dL [facility] Est Glomerular Filtration Rate >60 >=60 [facility] Comment: The National Kidney Disease Education [...] Urea Nitrogen 18 10 - 20 mg/dL [facility] Blood specimen (specimen) 03/30/2010 6:05 PM EST 03/30/2010 6:13 PM EST Jairon Fenton MD CHEMISTRY ORDERABLES Performing Organization Address [facility] de Phone Number DEJA SEGOVIA * APTT (03/30/2010 6:05 PM EST) Partial Thromboplastin Time 26 25 - 37 sec [facility] Comment: Recommended therapeutic PTT range for full dose unfractionated heparin is 80-114 seconds. Blood specimen (specimen) 03/30/2010 6:05 PM EST 03/30/2010 6:14 PM EST Jairon Fenton MD HEMATOLOGY ORDERABLE S Performing Organization Address [facility] Phone Number DEJA SEGOVIA * PROTIME-INR (03/30/2010 6:05 PM EST) Prothrombin Time 14.2 12.3 - 14.7 sec [facility] Comment: [facility] Transfusion Committee Guidelines: INR less than 2.0, PTT less than OR equal to 43.5 seconds, or Fibrinogen greater than or equal to 100 mg/dl indicate adequate procoagulant activity for hemostasis in patients without underlying bleeding disorders. International Normalization Ratio 1.1 0.9 - 1.[address] [facility] Blood specimen (specimen) 03/30/2010 6:05 PM EST 03/30/2010 6:14 PM EST Jairon Fenton MD HEMATOLOGY ORDERABLE S Performing Organization Address [facility] de Phone Number DEJA SEGOVIA [...] Standard Deviation 44.2 35.0 - 46.[address] [facility] RDW coefficient of variation 13.1 10.9 - 14.4 % [facility] Mean Platelet Volume 10.6 9.0 - 12.[address] [facility] Blood specimen (specimen) 03/30/2010 6:05 PM EST 03/30/2010 6:13 PM EST Jairon Fenton MD HEMATOLOGY ORDERABLE S Performing Organization Address [facility] Co de Phone Number [facility] * REFLEX LAB-ANTIBODY SCREEN (03/30/2010 3:17 PM EST) [facility] Ab Screen Interp Negative [facility] Expires at [id number] on: [id number] [facility] Blood specimen (specimen) 03/30/2010 3:17 PM EST 03/30/2010 3:17 PM EST Javier Barajas MD BLOOD BANK LAB ORDER PRECIOUS Performing Organization Address [facility] Co de Phone Number [facility] * REFLEX LAB-ABO/RH (03/30/2010 3:17 PM EST) [facility] ABORH Type A Pos [facility] Blood specimen (specimen) 03/30/2010 3:17 PM EST 03/30/2010 3:17 PM EST Javier Barajas MD BLOOD BANK LAB ORDER PRECIOUS Performing Organization Address [facility] Co de Phone Number [facility] * ELECTROLYTE PANEL (03/30/2010 2:50 PM EST) [facility] Sodium 135 135 - 145 mmol/L [facility] Potassium 4.3 3.5 - 5.0 mmol/L [facility] Comment: Please note: ??Patients with WBC [...] Barajas MD CHEMISTRY ORDERABLES Performing Organization Address [facility] Phone Number [facility] * BUN (03/30/2010 2:50 PM EST) Blood Urea Nitrogen 18 10 - 20 mg/dL [facility] Blood specimen (specimen) 03/30/2010 2:50 PM EST 03/30/2010 3:05 PM EST Javier Barajas MD CHEMISTRY ORDERABLES Performing Organization Address [facility] Phone Number [facility] * GLUCOSE, RANDOM (03/30/2010 2:50 PM EST) Glucose 95 <=199 mg/dL [facility] Comment:Diabetes: >=200 mg/d L plus symptoms Blood specimen (specimen) 03/30/2010 2:50 PM EST 03/30/2010 3:05 PM EST Javier Barajas MD CHEMISTRY ORDERABLES Performing Organization Address [facility] Phone Number [facility] * APTT (03/30/2010 2:50 PM EST) Partial Thromboplastin Time 25 25 - [address] [facility] Comment: Recommended therapeutic PTT range for full dose unfractionated heparin is 80-114 seconds. Blood specimen (specimen) 03/30/2010 2:50 PM EST 03/30/2010 3:06 PM EST Javier Barajas MD HEMATOLOGY ORDERABLE S Performing Organization Address [facility] Phone Number [facility] * PROTIME-INR (03/30/2010 2:50 PM EST) Prothrombin Time 14.1 12.3 - 14.[address] [facility] Comment: [facility] Transfusion Committee Guidelines: INR less [...] on filedocumented in this encounter Care Teams Sheriff Sergeant Relationship Specialty Start Date End Date Marques Martinez MD [address] [place] [address] PCP - General 04/01/10 04/08/11 documented as of this encounter
--- OUTSIDE RECORDS SUMMARY | 2023-12-22 08:05 | XMS_ITS | Encounter Summary ---
Author Organization [facility] [place] [address] Care Team Providers Care Senior Estimator Name Role Phone Marques Martinez MD Primary Care Provider [phone] Encounter Details Date Type Department Care Team (Late st Contact Info) Description 06/12/2010 2:10 PM EST Office [place] [id number] Jairon Fenton MD [facility] [place] [address] Discharge Disposition: Home Social History Tobacco Use [...] AM EDT Hospital Encounter Non-[place]vasive [place] [address] Arrived documented as of this encounter Visit Diagnoses Not on filedocumented in this encounter Care Teams Senior Estimator Relationship Specialty Start Date End Date Marques Martinez MD [address] [place] [address] PCP - General 04/01/10 04/08/11 documented as of this encounter
--- OUTSIDE RECORDS SUMMARY | 2023-12-22 08:05 | XMS_ITS | Encounter Summary ---
[place] [address] Care Team Providers Care Senior Analytical Chemist Name Role Phone Marques Martinez MD Primary Care Provider Encounter Details Date Type Department Care Team (Late st Contact Info) Description 05/01/2010 2:40 PM EST Procedure visit [place] [address] Social History Tobacco Use Types Packs/Day Years [...] AM EDT Hospital Encounter Non[place] [address] Arrived documented as of this encounter Visit Diagnoses Not on filedocumented in this encounter Care Teams Senior Analytical Chemist Relationship Specialty Start Date End Date Marques Martinez MD [address] [place] [address] PCP - General 04/01/10 04/08/11 documented as of this encounter
--- OUTSIDE RECORDS SUMMARY | 2023-12-22 08:05 | XMS_ITS | Encounter Summary ---
[place] [address] Care Team Providers Care Medical Practitioners Name Role Phone Donny Cooper MD Primary Care Provider [phone] Encounter Details Date Type Department Care Team (Late st Contact Info) Description 03/17/2019 Telephone Cardiology at [address] [address] Sheri Quinn LNA Social History [...] 11:46 AM EST Medication list reviewed with [facility] list. Please review with patient at next clinic visit. documented in this encounter Plan of Treatment Upcoming Encounters Date Type Department Care Team (Late st Contact Info) Description 02/02/2024 10:00 AM EDT Hospital Encounter [place] [address] Arrived documented as of this encounter Visit Diagnoses Not on filedocumented in this encounter Care Teams Medical Practitioners Relationship Specialty Start Date End Date Donny Cooper MD [address] [place] [address] PCP - General Family Medicine 02/25/19 documented as of this encounter
--- OUTSIDE RECORDS SUMMARY | 2023-12-22 08:05 | XMS_ITS | Encounter Summary ---
Author Organization [facility] [place] [address] Care Team Providers Care Barmaid Name Role Phone Clem Olvera MD Primary Care Provider [phone] Reason for Visit * Reason Comments Follow Up Fracture SP PATELLA FX DO12/12 DOI 03/30/10 Encounter Details Date Type Department Care Team (Late st Contact Info) Description 04/09/2011 1:30 PM EST Office [place] [address] Jairon Gustafson MD [facility] [place] [address] Jose Francisco Bee PA [facility] [place] [address] Patella fracture (Primary Dx) Discharge Disposition: Home [...] AM EDT Hospital Encounter Non-[place] [address] Arrived documented as of this encounter Visit Diagnoses Diagnosis Patella fracture- Primary Closed fracture of patella documented in this encounter Care Teams Barmaid Relationship Specialty Start Date End Date Clem Olvera MD [address] [place] [address] PCP - General 04/09/11 02/24/19 documented as of this encounter
--- OUTSIDE RECORDS SUMMARY | 2023-12-22 08:05 | XMS_ITS | Encounter Summary ---
Author Organization [facility] [place] [address] Care Team Providers Care Passenger Representative Name Role Phone Marques Martinez MD Primary Care Provider [phone] Reason for Visit * Reason Comments Follow Up Fracture PATELLA FX DOI 03/23 10 Encounter Details Date Type Department Care Team (Late st Contact Info) Description 10/09/2010 12:40 PM EDT Office [place] [address] Jairon Gustafson MD [facility] [place] [address] Jose Francisco Bee PA [facility] [place] [address] Quadriceps tendon rupture (Primary Dx) Discharge Disposition: [...] AM EDT Hospital Encounter [place] [address] Arrived documented as of this encounter Visit Diagnoses Diagnosis Quadriceps tendon rupture- Primary Sprain and strain of other specified sites of knee and leg documented in this encounter Care Teams Passenger Representative Relationship Specialty Start Date End Date Marques Martinez MD [address] [place] [address] PCP - General 04/01/10 04/08/11 documented as of this encounter
--- OUTSIDE RECORDS SUMMARY | 2023-12-22 08:05 | XMS_ITS | Encounter Summary ---
[place] [address] Care Team Providers Care Cardiopulmonary Technologist Chief Name Role Phone Marques Martinez MD Primary Care Provider [phone] Encounter Details Date Type Department Care Team (Late st Contact Info) Description 06/12/2010 2:00 PM EST Procedure [place] [address] Social History Tobacco Use Types Packs/Day Years [...] AM EDT Hospital Encounter Non[place] [address] Arrived documented as of this encounter Visit Diagnoses Not on filedocumented in this encounter Care Teams Cardiopulmonary Technologist Chief Relationship Specialty Start Date End Date Marques Martinez MD [address] [place] [address] PCP - General 04/01/10 04/08/11 documented as of this encounter
[2023-12-22 08:47] VITALS: BP 119/69; PULSE 73
--- OUTSIDE RECORDS SUMMARY | 2023-12-24 08:10 | XMS_ITS | Referral Summary ---
Author Organization [facility] Address [address] [place] [address] Care Team Providers Care Director Of Broadcast Name Role Phone Clem Olvera MD Primary Care Provider [phone] Allergies No known active allergies Medications Medication [...] Advance Directives For more information, please contact: [phone] * Full Code (Latest Code Status on File) Date Activated Date Inactivated Comments 02/27/2016 8:49 02/28/2016 15:40 Question Answer Comments Reason for decision includes: Full code consistent with overall plan of care Who participated in the discussion? Not Discusse d Care Teams Director Of Broadcast Relationship Specialty Start Date End Date Clem Olvera MD [address] [place] [id number] PCP - General 12/18/15
--- OUTSIDE RECORDS SUMMARY | 2023-12-24 08:10 | XMS_ITS | Encounter Summary ---
Author Organization [facility] Address [address] [place] [address] Care Team Providers Care Footwear Sales Leader Name Role Phone Unknown, Provider Primary Care Provider [phone] Clem Olvera MD Primary Care Provider [phone] Encounter Details Date Type Department Care Team (Late st Contact Info) Description 11/29/2015 Pre-Procedure Orders Encounter [facility] [address] [place], [place] [id number] Navdeep Hurd MD [address] [place] [address] [address] Social History Tobacco Use Types [...] Nabil Streeter. Attending: Dr. Moran Scrrajinder Supervisor Accounting Clerks: Dr. Fantasma Dhillon History/indication: The patient is [...] Nabil Streeter Attending: Dr. Dean Bailey Supervisor Accounting Clerks: Dr. Fantasma Dhillon History/indication: The patient is [...] on filedocumented in this encounter Care Teams Footwear Sales Leader Relationship Specialty Start Date End Date Unknown, Provider, PCP - General 12/06/12 12/17/15 Clem Olvera MD [address] [place] [address] PCP - General 12/18/15 documented as of this encounter
--- OUTSIDE RECORDS SUMMARY | 2023-12-24 08:10 | XMS_ITS | Encounter Summary ---
Author Organization [facility] Address [address] [place] [address] Care Team Providers Care Associate Professor Of English Name Role Phone Unavailable Primary Care Provider Unavailabl e Encounter Details Date Type Department Care Team (Late st Contact Info) Description 12/02/2012 Results Only [facility] Laboratory Services - [facility] ([facility] [address] [place] [id number] Satinder Edwards MD [address] [place] [address] Social History Tobacco Use Types Packs/Day Years [...] ? NABIL IGLESIAS ? Accession #: ? [id number] ? : ? 1940 (Age: 72) ??M [...] MD PATHOLOGY ORDERABLE S Performing Organization Address City/State/[facility] Co de Phone Number [facility] BERRY [address] [place] [address] documented in this encounter Visit Diagnoses Not on filedocumented in this encounter
--- OUTSIDE RECORDS SUMMARY | 2023-12-24 08:10 | XMS_ITS | Clinical Summary ---
Author Organization [facility] Address [address] [place] [address] Care Team Providers Care Sharebroker Name Role Phone Clem Olvera MD Primary Care Provider [phone] Allergies No known active allergies Medications Medication [...] PACEMAKER INSERTION 05/04/2002 - 05/03/20032013 second pacemaker [facility] Medical History Medical History Date Comments CAD [...] Advance Directives For more information, please contact: [phone] * Full Code (Latest Code Status on File) Date Activated Date Inactivated Comments 02/27/2016 8:49 02/28/2016 15:40 Question Answer Comments Reason for decision includes: Full code consistent with overall plan of care Who participated in the discussion? Not Discusse d Care Teams Sharebroker Relationship Specialty Start Date End Date Clem Olvera MD [address] [place] [address] PCP - General 12/18/15
--- OUTSIDE RECORDS SUMMARY | 2023-12-24 08:10 | XMS_ITS | Encounter Summary ---
Author Organization [facility] Address [address] [place] [address] Care Team Providers Care Customer Orders Clerk Name Role Phone Unavailable Primary Care Provider Unavailabl e Encounter Details Date Type Department Care Team (Late st Contact Info) Description 05/06/2001 Results Only [facility] [address] [place] [address] Hernandez Partida MD [address] [place] [address] Social History Tobacco Use Types Packs/Day Years [...] entirely in cassette (B). ??(Naty Caal)/[facility] End of Report [facility] 05/06/2001 05/07/2001 9:2 5 EST Hernandez Partida MD PATHOLOGY ORDERABLES [facility] [address] [place] [address] documented in this encounter Visit Diagnoses Not on filedocumented in this encounter
--- OUTSIDE RECORDS SUMMARY | 2023-12-24 08:10 | XMS_ITS | Encounter Summary ---
Author Organization [facility] Address [address] [place] [address] Care Team Providers Care Family Readiness Support Assistant Name Role Phone Clem Olvera MD Primary Care Provider [phone] Encounter Details Date Type Department Care Team (Latest Contact Info) Description 12/20/2015 10:52 EDT - 12/20/2015 23:52 EDT Hospital Encounter [facility] [address] [place] [address] Navdeep Hurd MD [address] [place] [address] [address] Discharge Disposition: Home or Self [...] no need to beNPO or have a motor pool driver. However, his will be accompanying him. They are driving someone to the airport [place] 1000 and then will come here and check-in around 1145. He agrees to have a shower. documented in this encounter Procedure Notes * Fantasma Dhillon MD - 12/20/2015 1356 EDT IR Brief Procedure Note Attending: Leo Steam Power Plant Operator: Alejo Pre-op Dx: Arrhythmia, need for pacemaker [...] 12/19 documented in this encounter Care Teams Family Readiness Support Assistant Relationship Specialty Start Date End Date Clem Olvera MD [address] [place] [address] PCP - General 12/18/15 documented as of this encounter
--- OUTSIDE RECORDS SUMMARY | 2023-12-24 08:10 | XMS_ITS | Encounter Summary ---
[place] [address] Care Team Providers Care Geriatric Physician Name Role Phone Donny Cooper MD Primary Care Provider [phone] Encounter Details Date Type Department Care Team (Latest Contact Info) Description 11/04/2023 10:00 AM EDT - 11/04/2023 11:59 PM EDT Hospital Encounter [place] [address] Discharge Disposition: Home Social History Tobacco Use [...] AM EDT Hospital Encounter Non-[place] [address] Arrived documented as of this encounter Procedures [...] on filedocumented in this encounter Care Teams Geriatric Physician Relationship Specialty Start Date End Date Donny Cooper MD [address] [place] [address] PCP - General Family Medicine 02/25/19 documented as of this encounter
--- OUTSIDE RECORDS SUMMARY | 2023-12-24 08:10 | XMS_ITS | Encounter Summary ---
Author Organization [facility] Address [address] [place] [address] Care Team Providers Care Oracle Apex Developer Name Role Phone Clem Olvera MD Primary Care Provider [phone] Reason for Referral * (Routine) - Closed Specialty Diagnoses / Procedures Referred By Pedro madera Referred To Contact Beatrice De La Garza NP [address] [place] [phone] Referral ID Status Reason Start Date Expiration Date V isits Requested Visits Authorized [id number] Closed Specialty Services Required 02/27/2016 1 1 Comments You must contact us if we have not contacted you or you have missed your scheduled appointment. If you have any nursing questions, please don't hesitate to call the Cardiac Arrhythmia Service at [facility] at or , extension [phone]. For any scheduling of appointments, please call [phone] or , extension [phone]. . * (Routine) - Closed Specialty Diagnoses / Procedures Referred By Pedro madera Referred To Contact Beatrice De La Garza NP [address] [phone] Referral ID Status Reason Start Date Expiration Date V isits Requested Visits Authorized [id number] Closed Specialty Services Required 02/27/2016 1 1 Comments You have a pre existing appointment with Dr. Olvera on March 05 at 2:00, please have Dr. Olvera check your incision at that visit. * (Routine) - Closed Specialty Diagnoses / Procedures Referred By Contbecca t Referred To Contact Beatrice De La Garza NP [address] [address] Referral ID Status Reason Start Date Expiration Date V isits Requested Visits Authorized [id number] Closed Specialty Services Required 02/27/2016 1 1 [...] [facility] is located at [address] [facility] in [place] -Clinics are also held in [facility], and [place], [place] and [facility]. If you live in those areas, we will make arrangements for follow-up appointments in one of those clinics.. Encounter Details Date Type Department Care Team (Late st Contact Info) Description 02/27/2016 6:30 EDT - 02/28/2016 13:39 EDT Hospital Encounter [facility] Cardiac/Telemetry Unit [address] [place] [address] Gulshan Drummond MD PhD [address] [phone] Gulshan Montoya Sa, MD [address] [facility] [address] [place] [phone] AICD lead malfunction, subsequent encounter; ICD [...] EF of 20-25% status post silent inferior UT in the early . 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 He had heart failure symptoms that started around May 2013, when he was in [place], [place]. This triggered major cardiac workup including [...] then underwent a device upgrade to a CONCERT PROMOTER-D device with biventricular pacing for his EF [...] been followed in cardiology outreach clinic at [facility] in [place]. Continued high pacing threshold on the epicardial [...] and plans to follow up with his Top Ironer in [place] in 6-8 weeks for which [...] HGBA1C Discharge Follow Up Appointments Scheduled with [facility] Appointments Outside of [facility] We Will Schedule Studies We Will Schedule Appointments We Recommend but have not been Scheduled Beatrice De La Garza NP 02/27/2016 10:59 Associated attestation - Gulshan Montoya Sa, MD - 02/28/2016 1519 EDT Attending Attestation: I saw and evaluated the patient. I discussed the case with the resident/SUPERINTENDENT REFUSE DISPOSAL/fellow and agree with the findings and plan as documented above. Gulshan bullock Sa, MD Cardiac Electrophysiology documented in this encounter Discharge Instructions * Appointments* Beatrice De La aGrza NP - 02/27/2016 11:[address] Olvera on 03/05/16 at 2:00 as previously scheduled for a routine visit and for a check of your incision. Follow up with Giselle Hill NP at the [facility] in May, you will be notified [...] Notes * Lou Alfonso RN - 02/28/2016 2813 EDT Pt awaiting discharge. IV and tele was removed by primary nurse. This RN administered flu shot and provided flu information sheet. AVS and medications reviewed by RN with patient and . AVS statedcoreg was 3.25mg BID, which pt states no, they must have copied it down wrong. I'm not doing that.We've been through this in [place]. It makes me pass out. RN suggested checking with team, which pt denied and states I wont take it twice a day. He did agree to review this medication with his lost and found clerk and plans to remain on his home dosing, which was in the morning. He received dose this am. Ptleft via wheelchair with . * Beatrice Rodriguez - 02/28/2016 1329 EDT Brief visit with patient and as they were being discharged. Patient states he is independent in self care and home management. He feels well supported by friends and neighbors. Patient has Medicare and [facility]. [facility] in [facility]. No needs identified at time of discharge. will provide transportation. Beatrice Rodriguez RN Case Manager #[id number] documented in this encounter H&P Notes * Navdeep Hurd MD - 02/27/2016 0830 EDT Cardiology Admitting H&P Admit Date: 02/27/2016 Date of Service: 02/27/2016 PCP: Clem Olvera Code Status: Full Code Chief Complaint: FINN, device battery depletion, high pacing threshold on epicardial lead HPI: 74-year-old man with coronary artery disease and ischemic cardiomyopathy status post silent inferior UT in the early . 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 He had heart failure symptoms that started around May 2013, when he was in [place], [place]. This triggered major cardiac workup including [...] point, his device was upgraded to a CONCERT PROMOTER-D device with biventricular pacing. By the patient's [...] been followed in cardiology outreach clinic at [facility] in [place]. Continued high pacing threshold on the epicardial LV lead has caused a very rapid battery depletion. Dr. David Adams in [place] recommended against lead extraction and reimplant as [...] ??? Pacemaker insertion 2002 2013 second pacemaker [facility] Social History Family History Social History Substance Use Topics ??? Smoking status: Former Smoker Years: 35.00 Quit date: 1989 ??? Smokeless tobacco: Not on file ??? Alcohol use 6.6 oz/week 6 Cans of beer, 5 Glasses of wine per week , lives with , retired. Spends leong in [place]. Spends the chery in [place], [place]. Quit smoking in 1990. Has 2 [...] and ischemic cardiomyopathy status post silent inferior UT in the early . Also diagnosed with [...] point, his device was upgraded to a CONCERT PROMOTER-D device with biventricular pacing with a surgically [...] EST) 03/12/2016 12:4 3 EST Scan 2 Uniform Room Attendant PROCEDURE/MINOR JUDD GICAL ORDERABLES * ECG REPORT - SCANNED (03/04/2016 14:06 EDT) 03/04/2016 14:0 6 EDT Scan 2 Uniform Room Attendant PROCEDURE/MINOR JUDD GICAL ORDERABLES * ECG REPORT - SCANNED (03/04/2016 14:06 EDT) 03/04/2016 14:0 6 EDT Scan 2 Uniform Room Attendant PROCEDURE/MINOR JUDD GICAL ORDERABLES * IMPLANT RECORD - SCANNED (03/04/2016 14:06 EDT) 03/04/2016 14:0 6 EDT Scan 2 Uniform Room Attendant PROCEDURE/MINOR JUDD GICAL ORDERABLES * ECG REPORT - SCANNED (03/01/2016 8:58 EDT) 03/01/2016 8:58 EDT Scan 2 Uniform Room Attendant PROCEDURE/MINOR JUDD GICAL ORDERABLES * ECG REPORT - SCANNED (03/01/2016 8:58 EDT) 03/01/2016 8:58 EDT Scan 2 Uniform Room Attendant PROCEDURE/MINOR JUDD GICAL ORDERABLES * CHEST PA [...] IMAGING ORDERABLES * HEMAGRAM (02/28/2016 5:44 EDT) [facility] WBC 9.84 4.0 - 10.4 K/cmm 02/28/2016 6:26 EDT [facility] RBC 4.42 4.36 - 5.78 M/cmm 02/28/2016 6:26 T [facility] Hemoglobin 14.2 13.8 - 17.3 gm/dl 02/28/2016 6:26 [facility] HCT 40.9 39.5 - 50.2 % 02/28/2016 6:26 [facility] MCV 93 81 - 95 fl 02/28/2016 6:26 [facility] MCH 32.1 27.6 - 33.0 pg 02/28/2016 6:26 [facility] MCHC 34.7 32.8 - 36.4 gm/dl 02/28/2016 6:26 [facility] RDW-CV 13.1 11.8 - 14.1 % 02/28/2016 6:26 [facility] RDW-SD 44.6 36.5 - 45.9 fl 02/28/2016 6:26 [facility] PLT 151 141 - 377 K/cmm 02/28/2016 6:26 [facility] MPV 11.2 9.5 - 12.7 fl 02/28/2016 6:26 [facility] Blood specimen (specimen) BLOOD SPECIMEN / Unknown 02/28/2016 5:44 EDT 02/28/2016 6:13 EDT Beatrice De La Garza NP HEMATOLOGY & PF4 ORDERABLES [facility] [address] [place] [address] * (ABNORMAL) CREATININE (02/28/2016 5:44 EDT) Creatinine 0.65(L) 0.66 - 1.25 mg/dl 02/28/2016 6:48 EDT [facility] GFR, Calculated 95 >60 ml/min/1.7 3m2 02/28/2016 6:48 EDT [facility] Comment: eGFR calculated using CKD-EPI equation for non Americans. Multiply eGFR by 1.16 for Americans. Blood specimen (specimen) BLOOD SPECIMEN / Unknown 02/28/2016 5:44 EDT 02/28/2016 6:13 EDT Beatrice De La Garza NP CHEMISTRY & B LOOD GAS ORDERABLES Performing Organization Address [facility]/ZIP Co de Phone Number [facility] [address] [place] [address] * BUN (02/28/2016 5:44 EDT) BUN 14 10 - 26 mg/dl 02/28/2016 6:48 EDT [facility] Blood specimen (specimen) BLOOD SPECIMEN / Unknown 02/28/2016 5:44 EDT 02/28/2016 6:13 EDT Beatrice De La Garza SUPERINTENDENT REFUSE DISPOSAL CHEMISTRY & B LOOD GAS ORDERABLES Performing Organization Address [facility] Co de Phone Number [facility] [address] [place] [address] * ELECTROLYTES (02/28/2016 5:44 EDT) Sodium 138 136 - 145 mEq/L 02/28/2016 6:48 EDT [facility] Potassium 4.7 3.5 - 5.0 mEq/L 02/28/2016 6:48 EDT [facility] Chloride 104 96 - 110 mEq/L 02/28/2016 6:48 EDT [facility] CO2 25 22 - 32 mEq/L 02/28/2016 6:48 EDT [facility] Comment:Note new reference r hong 02/19/16 Blood specimen (specimen) BLOOD SPECIMEN / Unknown 02/28/2016 5:44 EDT 02/28/2016 6:13 EDT Beatrice De La Garza NP CHEMISTRY & B LOOD GAS ORDERABLES [facility] [address] [place] [address] * PORTABLE CHEST 1 VIEW (02/27/2016 12:46 [...] 12:41 EDT) 02/27/2016 12:4 1 EDT Narrative [facility] - 02/28/2016 8:57 EDT ? [facility] ? Test Date: ?2016-02-27 Pat Name: ? NABIL IGLESIAS ? Department: ?? [facility] 5 ? Room: ? MW514 Gender: ? M ?Machine Group Leader: ?? [id number] : ?1940 ? Requested By: KAIN REED L Order Number: [id number] ? Reading MD: ?? BRAYAN CUENCA MD ? Measurements Intervals ?[place] ? Rate: ? 63 ? P: ?15 [...] Date: 2016-02-27 Pat Name: NABIL IGLESIAS Department: [place] [address] Room: [facility] Gender: M Machine Group Leader: [id number] : 1940 Requested By: KAIN Gallagher Order Number: [id number] Reading MD: BRAYAN CUENCA MD Measurements Intervals [place] Rate: 63 P: 15 ND: 159 QRS: 234 QRSD: 156 T: 15 QT: 479 QTc: 493 Interpretive Statements ELECTRONIC VENTRICULAR PACEMAKER Compared to ECG 02/27/2016 08:10:34 No significant changes I reviewed the tracing and have either agreed or edited the findings inthis report. Electronically Signed On 02-28-16 08:57:02 EDT by BRAYAN BEEBE. Gulshan Drummond MD PhD CARDIA C ECG ORDERABLES [facility] * PROTIME (02/27/2016 8:45 EDT) Pro Time 12.3 10.3 - 13.1 secs 02/27/2016 9:10 EDT [facility] Comment: New prothrombin t josue range effective 01/29/16 I.N.R. 1.1 0.9 - 1.1 Ratio 02/27/2016 9:10 EDT [facility] Comment: Moderate Intensity Coumadin INR = 2.0-3.0 Adjustments in anticoagulant therapy dose should be based upon the INR and NOT the Pro Time. Blood specimen (specimen) BLOOD SPECIMEN / Unknown 02/27/2016 8:45 EDT 02/27/2016 8:54 EDT Gulshan Drummond MD PhD HEMATO LOGY & PF4 ORDERABLES [facility] [address] [place] [address] * HEMAGRAM (02/27/2016 8:45 EDT) WBC 6.47 4.0 - 10.4 K/cmm 02/27/2016 8:57 EDT [facility] RBC 4.51 4.36 - 5.78 M/cmm 02/27/2016 8:57 EDT [facility] Hemoglobin 14.7 13.8 - 17.3 gm/dl 02/27/2016 8:57 EDT [facility] HCT 41.7 39.5 - 50.2 % 02/27/2016 8:57 EDT [facility] MCV 93 81 - 95 fl 02/27/2016 8:57 EDT [facility] MCH 32.6 27.6 - 33.0 pg 02/27/2016 8:57 EDT [facility] MCHC 35.3 32.8 - 36.4 gm/dl 02/27/2016 8:57 T [facility] RDW-CV 13.1 11.8 - 14.1 % 02/27/2016 8:57 EDT [facility] RDW-SD 44.0 36.5 - 45.9 fl 02/27/2016 8:57 EDT [facility] PLT 176 141 - 377 K/cmm 02/27/2016 8:57 EDT [facility] MPV 10.7 9.5 - 12.7 fl 02/27/2016 8:57 EDT [facility] Blood specimen (specimen) BLOOD SPECIMEN / Unknown 02/27/2016 8:45 EDT 02/27/2016 8:54 EDT Gulshan Drummond MD PhD HEMATO LOGY & PF4 ORDERABLES [facility] [address] [place] [address] * ELECTROLYTES (02/27/2016 8:45 EDT) Sodium 142 136 - 145 mEq/L 02/27/2016 9:13 EDT [facility] Potassium 4.7 3.5 - 5.0 mEq/L 02/27/2016 9:13 EDT [facility] Chloride 103 96 - 110 mEq/L 02/27/2016 9:13 EDT [facility] CO2 27 22 - 32 mEq/L 02/27/2016 9:13 EDT [facility] Comment:Note new reference r hong 02/19/16 Blood specimen (specimen) BLOOD SPECIMEN / Unknown 02/27/2016 8:45 EDT 02/27/2016 8:54 EDT Gulshan Drummond MD PhD CHEMIS TRY & BLOOD GAS ORDERABLES Performing Organization Address [facility] de Phone Number [facility] [address] [place] [address] * CREATININE (02/27/2016 8:45 EDT) Creatinine 0.69 0.66 - 1.25 mg/dl 02/27/2016 9:13 EDT [facility] GFR, Calculated 93 >60 ml/min/1.7 3m2 02/27/2016 9:13 EDT [facility] Comment: eGFR calculated using CKD-EPI equation for non Americans. Multiply eGFR by 1.16 for Americans. Blood specimen (specimen) BLOOD SPECIMEN / Unknown 02/27/2016 8:45 EDT 02/27/2016 8:54 EDT Gulshan Drummond MD PhD CHEMIS TRY & BLOOD GAS ORDERABLES Performing Organization Address [facility] Co de Phone Number [facility] [address] [place] [address] * BUN (02/27/2016 8:45 EDT) BUN 17 10 - 26 mg/dl 02/27/2016 9:13 EDT [facility] Blood specimen (specimen) BLOOD SPECIMEN / Unknown 02/27/2016 8:45 EDT 02/27/2016 8:54 EDT Gulshan Drummond MD PhD CHEMIS TRY & BLOOD GAS ORDERABLES [facility] [address] [place] [address] * EKG 12-LEAD (02/27/2016 8:08 EDT) 02/27/2016 8:08 EDT Narrative [facility] - 02/28/2016 9:01 EDT ? [facility] ? Test Date: ?2016-02-27 Pat Name: ? NABIL IGLESIAS ? Department: ?? [facility] ? Room: ? [id number] Gender: ? M ?Machine Group Leader: ?? [id number] : ?1940 ? Requested By: MARCIA Boo Order Number: [id number] ? Julia WRIGHT: ?? BRAYAN CUENCA MD ? Measurements Intervals ?[place] ? Rate: ? 69 ? P: ?147 [...] Date: 2016-02-27 Pat Name: NABIL IGLESIAS Department: [facility] Room: [id number] Gender: M Machine Group Leader: [id number] : 1940 Requested By: MARCIA Boo Order Number: [id number] Reading MD: BRAYAN CUENCA MD Measurements Intervals [place] Rate: 69 P: 147 ND: 134 QRS: -67 QRSD: 160 T: -59 QT: 434 QTc: 467 Interpretive Statements ELECTRONIC ATRIAL PACEMAKER ELECTRONIC VENTRICULAR PACEMAKER Compared to ECG 02/27/2016 08:08:46 No significant changes I reviewed the tracing and have either agreed or edited the findings inthis report. Electronically Signed On 02-28-16 09:01:04 EDT by BRAYAN BEEBE. Navdeep Hurd MD CARDIAC ECG ORD ERABLES [facility] documented in this encounter Visit [...] Reason: Other - Comment: pt already took PEANUT SHAKER, takes other meds at HS) 921 (Given [...] Reason: Other - Comment: pt already took PEANUT SHAKER, takes other meds at HS)2100 (Given - Provider: Mady Bruno RN) spironolactone (ALDACTONE) tablet 12.5 mg 12.5 mg, oral, DAILY, First dose on Thu02/27/16 at 1245, Until Discontinued, Routine 1306 (Not Given - Provider: Nneka Stuart RN - Reason: Other - Comment: pt already took PEANUT SHAKER, takes other meds at HS)2102 (Given - Provider: Mady Bruno RN) tamsulosin (FLOMAX) capsule 0.4 mg 0.4 mg, oral, DAILY, First dose on Thu02/27/16 at 1245, Until Discontinued, Routine 1306 (Not Given - Provider: Nneka Stuart RN - Reason: Other - Comment: pt already took PEANUT SHAKER, takes other meds at HS) 921 (Given [...] 02/02 documented in this encounter Care Teams Oracle Apex Developer Relationship Specialty Start Date End Date Clem Olvera MD [address] [place] [address] PCP - General 12/18/15 documented as of this encounter
--- OUTSIDE RECORDS SUMMARY | 2023-12-24 08:10 | XMS_ITS | Encounter Summary ---
Author Organization [facility] Address [address] [place] [address] Care Team Providers Care Communications Supervisor Name Role Phone Clem Olvera MD Primary Care Provider [phone] Reason for Visit * Reason Onset Date Comments Other 04/04/2019 Transfer request for Pacer Care at [facility] Encounter Details Date Type Department Care Team (Late st Contact Info) Description 04/04/2019 Telephone [facility] Cardiology Clinic [address] [place] [address] Giselle Hill, BOX TRUCK DRIVER Other (Transfer request for Pacer Care at [facility]) Social History Tobacco [...] 04/04/2019 1503 EST I went into the [employer] Website and released pt to [facility] Pacer Clinic as requested. * Telephone Encounter - Suze Reynoso - 04/04/2019 1342 EST PT WILL BE HAVING HIS PACER CARE DONE AT [facility], PLEASE RELEASE HIS REMOTE MONITORING SO THAT THEY CAN PICK IT UP documented in this encounter Plan of Treatment Not on file documented as of this encounter Visit Diagnoses Not on filedocumented in this encounter Care Teams Communications Supervisor Relationship Specialty Start Date End Date Clem Olvera MD [address] [place] [address] PCP - General 12/18/15 documented as of this encounter
--- OUTSIDE RECORDS SUMMARY | 2023-12-24 08:10 | XMS_ITS | Clinical Summary ---
Author Organization [facility] [place] [address] Care Team Providers Care Box Liner Name Role Phone Donny Cooper MD Primary Care Provider [phone] Allergies No known active allergies Medications Medication [...] PM EDT Hospital Encounter Non-Invasive [place] [phone] Discharge Disposition: Home from Last 3 Months [...] EDT Hospital Encounter Non-Invasive [place] [id number] Arrived Health Maintenance Due Date Last Done Comments Tdap adult 08/19/1959 Tetanus vaccine 08/19/1959 Zoster vaccine (1 of 2) 1990 Advance Directive 08/19/1995 Pneumoccocal Vaccine: 65+ (2 of 2 - PCV) 05/04/2009 05/04/2008 Covid-19 Vaccine ( - 2022- season) 2023 Influenza (Flu) vaccine (1 o f 1 - Influenza standard series) 01/03/2024 02/01/2010, 03/06/2006, 02/24/2005 Medical Devices Implanted Type Area Genetic Counselor Device Identifier Shelf Expiration Date Model / Serial / Lot Mdt : [id number] : [id number] Implanted: (Quantity not on file) Cardiac Resynchronization Therapy - Defibrillator Chest Medtronic - [id number] / [id number] / Care Teams Box Liner Relationship Specialty Start Date End Date Donny Cooper MD [address] [place], [place] [id number] PCP - General Family Medicine 02/25/19
--- OUTSIDE RECORDS SUMMARY | 2023-12-24 08:10 | XMS_ITS | Encounter Summary ---
Author Organization [facility] Address [address] [place] [address] Care Team Providers Care Hatchery Helper Name Role Phone Clem Olvera MD Primary Care Provider [phone] Encounter Details Date Type Department Care Team (Late st Contact Info) Description 03/16/2019 Abstract [facility] Cardiology Clinic [address] [place] [address] Ronal Avelar, JADON AV block, 2nd degree [...] Modality Device Narrative 03/24/2019 10:30 EST [facility] Cardiology Device Visit Director Client: [employer] Device Type: FOUNDRY HELPER-D Service: Remote ? Indication: ICMO Battery [...] Miguel Ángel George APRN Miguel Ángel George EDUCATION MANAGER CV IMPLANTABLE CARDI AC DEVICE documented in this encounter Visit Diagnoses Diagnosis AV block, 2nd degree- Primary Other second degree atrioventricular block documented in this encounter Care Teams Hatchery Helper Relationship Specialty Start Date End Date Clem Olvera MD [address] [place] [address] PCP - General 12/18/15 documented as of this encounter
--- OUTSIDE RECORDS SUMMARY | 2023-12-24 08:10 | XMS_ITS | Encounter Summary ---
Author Organization [facility] Address [address] [place] [address] Care Team Providers Care Medical Billing Coordinator Name Role Phone Clem Olvera MD Primary Care Provider [phone] Reason for Referral * Cardiology (3 - 10 Business Days) - Closed Specialty Diagnoses / Procedures [facility]erred To Contact Diagnoses ICD (implantable cardioverter-defibrillator) battery depletion Pacemaker lead failure, initial encounter 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 Procedures IMPLANTABLE CARDIAC DEFIBRILLATOR PROCEDURE Navdeep Hurd MD [address] [place], [place] [address] [address] [place] [address] Referral ID Status Reason Start Date Expiration Date Visits Re quested Visits Authorized [id number] Closed 02/13/2016 1 1 Encounter Details Date Type Department Care Team (Latest Contact Info) Description 02/13/2016 Pre-Procedure Orders Encounter [facility] CARDIOLOGY [address] [place], [place] [address] Navdeep Hurd MD [address] [facility] [address] [place] [address] ICD (implantable cardioverter-defibril lator) battery [...] 8 EDT Narrative 02/27/2016 15:17 EDT *Cardiology* [address] [place] [address] Lead Revision (Report amended ) Patient: Nabil Iglesias ?Study Date: ?02/27/2016 ? Accession #: ? [id number] : ? 1940 Referring: Clem Olvera Attending: [...] 0.35 glide wire a Nick MENDOZAW 6F ([facility]) 6 mm-40 mm balloon dilation still [...] fascia. The leads were connected to a PIECE GOODS PACKER-D device. Device and Lead detail in table [...] Implanted device: Medtronic - Viva Quad XT PIECE GOODS PACKER-D DF4 - Serial number: [id number] Explanted device: Medtronic - Viva XT PIECE GOODS PACKER-D DF4 - Serial number: [id number]. LEAD PARAMETERS + + + + + [...] + + + + + Serial number [id number] ? [id number] ?? [id number] ?? [id number] ? + + + + [...] Gulshan Drummond MD - 05/12/2016 *Cardiology* [address] [place] [address] Lead Revision (Report amended ) Patient: Nabil [...] therefore over an 0.35 glide wire [facility] ([facility]) 6 mm-40 mm balloon dilation still [...] fascia. The leads were connected to a PIECE GOODS PACKER-D device. Device and Lead detail in table [...] Implanted device: Medtronic - Viva Quad XT PIECE GOODS PACKER-D DF4 - Serial number: [id number] Explanted device: Medtronic - Viva XT PIECE GOODS PACKER-D DF4 - Serial number: [id number]. LEAD PARAMETERS + + + + + + Lead # 1 2 3 4 + + + + + + Chamber RA RV LV LV + + + + + + Date 07/19/2002 07/18/2013 02/27/2016 07/18/2013 implanted + + + + + + Model St. Esa Medtronic Medtronic Enpath information [id number] Attain Epicardial Performa 4298 + + + + + + Serial number [id number] + + + + + + [...] situ documented in this encounter Care Teams Medical Billing Coordinator Relationship Specialty Start Date End Date Clem Olvera MD [address] [place] [address] PCP - General 12/18/15 documented as of this encounter
--- OUTSIDE RECORDS SUMMARY | 2023-12-24 08:10 | XMS_ITS | Encounter Summary ---
Author Organization [facility] Address [address] [place] [address] Care Team Providers Care Detector Car Operator Name Role Phone Clem Olvera MD Primary Care Provider [phone] Reason for Visit * Reason Onset Date Comments Appointment Related 10/23/2016 Check for fo llow up of pacer Encounter Details Date Type Department Care Team ([facility] Contact Info) Description 10/23/2016 Telephone [facility] Cardiology - [address] [place] [address] Pacemaker, Pace Appointment Related (Check [...] that Nabil had his pacemaker checked in [place] where they are for the winter. They have some back and are being followed by Dr. Hurd at [facility]. documented in this encounter Plan of Treatment Not on file documented as of this encounter Visit Diagnoses Not on filedocumented in this encounter Care Teams Detector Car Operator Relationship Specialty Start Date End Date Clem Olvera MD [address] [place] [address] PCP - General 12/18/15 documented as of this encounter
--- OUTSIDE RECORDS SUMMARY | 2023-12-24 08:10 | XMS_ITS | Encounter Summary ---
[place] [address] Care Team Providers Care Medical Liaison Name Role Phone Donny Cooper MD Primary Care Provider [phone] Encounter Details Date Type Department Care Team (Latest Contact Info) Description 08/06/2023 10:00 AM EDT - 08/06/2023 11:59 PM EDT Hospital Encounter [place] [address] Discharge Disposition: Home Social History Tobacco Use [...] AM EDT Hospital Encounter [place] [address] Arrived documented as of this encounter Visit Diagnoses Not on filedocumented in this encounter Care Teams Medical Liaison Relationship Specialty Start Date End Date Donny Cooper MD [address] [place] [address] PCP - General Family Medicine 02/25/19 documented as of this encounter
--- OUTSIDE RECORDS SUMMARY | 2023-12-24 08:11 | XMS_ITS | Encounter Summary ---
[place] [address] Care Team Providers Care Assembler Wet Wash Name Role Phone Marques Martinez MD Primary Care Provider [phone] Encounter Details Date Type Department Care Team (Late st Contact Info) Description 10/03/2010 [place] [address] Marina Orosco, JADON Social History Tobacco Use [...] AM EDT Hospital Encounter Non-[place] [address] Arrived documented as of this encounter Visit Diagnoses Not on filedocumented in this encounter Care Teams Assembler Wet Wash Relationship Specialty Start Date End Date Marques Martinez MD [address] [place] [address] PCP - General 04/01/10 04/08/11 documented as of this encounter
--- OUTSIDE RECORDS SUMMARY | 2023-12-24 08:11 | XMS_ITS | Encounter Summary ---
Author Organization [facility] [place] [address] Care Team Providers Care Filer Helper Name Role Phone Donny Cooper MD Primary Care Provider [phone] Encounter Details Date Type Department Care Team (Late st Contact Info) Description 07/26/2019 Notes Only Cardiology at [address] [address] Maged Arguelles MD [facility] [place] [address] Social History Tobacco Use Types Packs/Day Years [...] his Medtronic biventricular ICD is reviewed. Suboptimal MAINFRAME SOFTWARE DEVELOPER at 84%. Normal device function. Awaiting Holter to assess PVC burden. Maged Arguelles MD [facility] Cardiac Electrophysiology 07/26/2019 9:04 AM documented in this encounter Plan of Treatment Upcoming Encounters Date Type Department Care Team (Late st Contact Info) Description 02/02/2024 10:00 AM EDT Hospital Encounter Non-Invasive [place] [address] Arrived documented as of this encounter Visit Diagnoses Not on filedocumented in this encounter Care Teams Filer Helper Relationship Specialty Start Date End Date Donny Cooper MD [address] [place] [address] PCP - General Family Medicine 02/25/19 documented as of this encounter
--- OUTSIDE RECORDS SUMMARY | 2023-12-24 08:11 | XMS_ITS | Encounter Summary ---
Author Organization [facility] [place] [address] Care Team Providers Care Electron Beam Machine Welder Setter Name Role Phone Marques Martinez MD Primary Care Provider [phone] Encounter Details Date Type Department Care Team (Late st Contact Info) Description 10/09/2010 11:35 AM EDT - 10/09/2010 11:59 PM EDT Hospital Encounter XRay at [address] [place] [address] Social History Tobacco Use Types Packs/Day Years [...] AM EDT Hospital Encounter Non-Invasive Cardiology Lab [facility] [place] [address] Arrived documented as of this encounter Visit Diagnoses Not on filedocumented in this encounter Care Teams Electron Beam Machine Welder Setter Relationship Specialty Start Date End Date Marques Martinez MD [address] [place] [address] PCP - General 04/01/10 04/08/11 documented as of this encounter
--- OUTSIDE RECORDS SUMMARY | 2023-12-24 08:11 | XMS_ITS | Encounter Summary ---
Author Organization [facility] [place] [address] Care Team Providers Care Classification And Treatment Director Name Role Phone Marques Martinez MD Primary Care Provider [phone] Encounter Details Date Type Department Care Team (Late st Contact Info) Description 05/01/2010 3:10 PM EST Office [place] [phone] Jairon Fenton MD [facility] [address] [place] [address] Discharge Disposition: Home Social History Tobacco Use [...] AM EDT Hospital Encounter Non-Invasive [place] [address] Arrived documented as of this encounter Visit Diagnoses Not on filedocumented in this encounter Care Teams Classification And Treatment Director Relationship Specialty Start Date End Date Marques Martinez MD [address] [place] [address] PCP - General 04/01/10 04/08/11 documented as of this encounter
--- OUTSIDE RECORDS SUMMARY | 2023-12-24 08:11 | XMS_ITS | Encounter Summary ---
[place] [address] Care Team Providers Care Babysitter Name Role Phone Donny Cooper MD Primary Care Provider [phone] Encounter Details Date Type Department Care Team (Latest Contact Info) Description 04/03/2023 10:00 AM EST - 04/03/2023 11:59 PM [facility] Hospital Encounter Non[place] [address] Discharge Disposition: Home Social History Tobacco Use [...] AM EDT Hospital Encounter Non-[place] [address] Arrived documented as of this [...] on filedocumented in this encounter Care Teams Babysitter Relationship Specialty Start Date End Date Donny Cooper MD [address] [place] [address] PCP - General Family Medicine 02/25/19 documented as of this encounter
--- OUTSIDE RECORDS SUMMARY | 2023-12-24 08:11 | XMS_ITS | Encounter Summary ---
[place] [address] Care Team Providers Care Timekeeper Supervisor Name Role Phone Donny Cooper MD Primary Care Provider [phone] Encounter Details Date Type Department Care Team (Latest Contact Info) Description 07/07/2022 10:00 AM EST - 07/07/2022 11:59 PM EST Hospital Encounter Non-Invasive [place] [address] Discharge Disposition: Home Social History Tobacco Use [...] AM EDT Hospital Encounter Non-Invasive [place] [address] Arrived documented as of this [...] on filedocumented in this encounter Care Teams Timekeeper Supervisor Relationship Specialty Start Date End Date Donny Cooper MD [address] [place] [address] PCP - General Family Medicine 02/25/19 documented as of this encounter
--- OUTSIDE RECORDS SUMMARY | 2023-12-24 08:11 | XMS_ITS | Encounter Summary ---
[place] [address] Care Team Providers Care Exterminator Termite Name Role Phone Donny Cooper MD Primary Care Provider [phone] Encounter Details Date Type Department Care Team (Latest Contact Info) Description 07/02/2023 10:00 AM EST - 07/02/2023 11:59 PM EST Hospital Encounter Non-Invasive [place] [address] Discharge Disposition: Home Social History Tobacco Use [...] AM EDT Hospital Encounter Non-Invasive [place] [address] Arrived documented as of this encounter Visit Diagnoses Not on filedocumented in this encounter Care Teams Exterminator Termite Relationship Specialty Start Date End Date Donny Cooper MD [address] [place] [address] PCP - General Family Medicine 02/25/19 documented as of this encounter
--- OUTSIDE RECORDS SUMMARY | 2023-12-24 08:11 | XMS_ITS | Encounter Summary ---
Author Organization [facility] [place] [address] Care Team Providers Care Telecommunications Engineer Name Role Phone Marques Martinez MD Primary Care Provider [phone] Reason for Visit * Reason Comments Follow Up Fracture PATELLA FX DOI 03/23 10 Encounter Details Date Type Department Care Team (Late st Contact Info) Description 10/09/2010 12:40 PM EDT Office [place] [address] Jairon Gustafson MD [facility] [place] [address] Jose Francisco Bee PA [facility] [place] [address] Quadriceps tendon rupture (Primary Dx) Discharge Disposition: [...] AM EDT Hospital Encounter Non-[place] [address] Arrived documented as of this encounter Visit Diagnoses Diagnosis Quadriceps tendon rupture- Primary Sprain and strain of other specified sites of knee and leg documented in this encounter Care Teams Telecommunications Engineer Relationship Specialty Start Date End Date Marques Martinez MD [address] [place] [address] PCP - General 04/01/10 04/08/11 documented as of this encounter
--- OUTSIDE RECORDS SUMMARY | 2023-12-24 08:11 | XMS_ITS | Encounter Summary ---
[place] [address] Care Team Providers Care Nurse Clinician Name Role Phone Marques Martinez MD Primary Care Provider [phone] Encounter Details Date Type Department Care Team (Late st Contact Info) Description 06/12/2010 2:00 PM EST Procedure visit [place] [address] Social History Tobacco Use Types Packs/Day Years [...] AM EDT Hospital Encounter Non-[place] [address] Arrived documented as of this encounter Visit Diagnoses Not on filedocumented in this encounter Care Teams Nurse Clinician Relationship Specialty Start Date End Date Marques Martinez MD [address] [place] [address] PCP - General 04/01/10 04/08/11 documented as of this encounter
--- OUTSIDE RECORDS SUMMARY | 2023-12-24 08:11 | XMS_ITS | Encounter Summary ---
Author Organization [facility] [place] [address] Care Team Providers Care Broomcorn Sorter Name Role Phone Donny Cooper MD Primary Care Provider [phone] Encounter Details Date Type Department Care Team (Latest Contact Info) Description 12/18/2020 11:57 AM EDT - 12/18/2020 11:59 PM EDT Hospital Encounter Non[place] [address] Maged Arguelles MD [facility] [place] [address] Cardiomyopathy, primary Discharge Disposition: Home Social History [...] AM EDT Hospital Encounter Non[place] [address] Arrived documented as of this encounter Procedures Procedure Name Priority Date/Time Associated Diagnosis Comments ICD INTERROGATION 3 MONTH Routine 12/18/2020 12:00 PM EDT Cardiomyopathy, primary documented in this encounter Results * ICD INTERROGATION 3 MONTH (12/18/2020 12:00 PM EDT) Anatomical Region Laterality Modality Other Narrative 12/23/2020 11:08 PM EDT MDT FIRE MANAGEMENT OFFICER-D remote reviewed. Normal device function. Inadequate FIRE MANAGEMENT OFFICER at 80%. Maged Arguelles MD [facility] Cardiac Electrophysiology 12/23/2020 11:06 PM Maged Arguelles MD IMPLANTABLE CARDIAC DEVICE documented in this encounter Visit Diagnoses Diagnosis Cardiomyopathy, primary Other primary cardiomyopathies documented in this encounter Care Teams Broomcorn Sorter Relationship Specialty Start Date End Date Donny Cooper MD [address] [facility] [place] [address] PCP - General Family Medicine 02/25/19 documented as of this encounter
--- OUTSIDE RECORDS SUMMARY | 2023-12-24 08:11 | XMS_ITS | Encounter Summary ---
[place] [address] Care Team Providers Care Chief Radiology Name Role Phone Donny Cooper MD Primary Care Provider [phone] Encounter Details Date Type Department Care Team (Late st Contact Info) Description 06/14/2020 Telephone Cardiology at [address] [address] Nhung Briggs Social History Tobacco Use Types [...] He would like to be seen at [facility]. Email sent to Brittaney Hernandez at [facility] asking her to reach out to pt to set up the appt with either Dr. Arguelles or LANG Albert. Nhung Allen Electrophysiology Scheduling [id number] option 2 documented in this encounter Plan of Treatment Upcoming Encounters Date Type Department Care Team (Late st Contact Info) Description 02/02/2024 10:00 AM EDT Hospital Encounter Non-[place] [address] Arrived documented as of this encounter Visit Diagnoses Not on filedocumented in this encounter Care Teams Chief Radiology Relationship Specialty Start Date End Date Donny Cooper MD [address] [place] [address] PCP - General Family Medicine 02/25/19 documented as of this encounter
--- OUTSIDE RECORDS SUMMARY | 2023-12-24 08:11 | XMS_ITS | Encounter Summary ---
Author Organization [facility] [place] [address] Care Team Providers Care Station Helper Name Role Phone Donny Cooper MD Primary Care Provider [phone] Encounter Details Date Type Department Care Team (Latest Contact Info) Description 06/25/2021 3:23 PM EST - 06/25/2021 11:59 PM EST Hospital Encounter Non-Invasive [place] [address] Alber Seals MD [facility] [place] [address] Cardiomyopathy, primary Discharge Disposition: Home Social History [...] AM EDT Hospital Encounter Non-Invasive [place] [address] Arrived documented as of this encounter Procedures Procedure Name Priority Date/Time Associated Diagnosis Comments ICD INTERROGATION 3 MONTH Routine 06/25/2021 3:24 PM EST Cardiomyopathy, primary documented in this encounter Results * ICD INTERROGATION 3 MONTH (06/25/2021 3:24 PM EST) Anatomical Region Laterality Modality Other Narrative 06/25/2021 3:42 PM EST Cardiac Device Remote Monitoring Report Summary Medtronic Carelink Device: SPINNING ROOM WORKER-D Model: VIVA QUAD Battery: 2.95 v, estimated longevity 2 years 6 months Pacing percentage: 90% SPINNING ROOM WORKER paced Events: Presenting rhythm: atrial paced/biventricular paced Frequent PVC's Impression Normal device function Follow Up As per schedule - in-clinic and remote ALBER SEALS MD 06/25/21 Alber Seals MD IMPLANTABLE CARDIAC DEVICE documented in this encounter Visit Diagnoses Diagnosis Cardiomyopathy, primary Other primary cardiomyopathies documented in this encounter Care Teams Station Helper Relationship Specialty Start Date End Date Donny Cooper MD [address] [place] [address] PCP - General Family Medicine 02/25/19 documented as of this encounter
--- OUTSIDE RECORDS SUMMARY | 2023-12-24 08:11 | XMS_ITS | Encounter Summary ---
Author Organization [facility] [place] [address] Care Team Providers Care Cone Machine Operator Name Role Phone Donny Cooper MD Primary Care Provider [phone] Encounter Details Date Type Department Care Team (Latest Contact Info) Description 06/13/2020 12:35 PM EST - 06/13/2020 11:59 PM EST Hospital Encounter Non-[place] [address] Alber Seals MD [facility] [place] [address] Cardiomyopathy, primary Discharge Disposition: Home Social History [...] AM EDT Hospital Encounter Non-[place] [address] Arrived documented as of this encounter Procedures Procedure Name Priority Date/Time Associated Diagnosis Comments ICD INTERROGATION 3 MONTH Routine 06/13/2020 12:36 PM EST Cardiomyopathy, primary documented in this encounter Results * ICD INTERROGATION 3 MONTH (06/13/2020 12:36 PM EST) Anatomical Region Laterality Modality Other Narrative 06/14/2020 10:38 AM EST Cardiac Device Remote Monitoring Report Summary Medtronic [id number] 06/14/20 Device: COUNTER WAITER-D Model: VIVA QUAD Battery: 2.96 v, estimated longevity 3 years, 11 months Pacing percentage: 78% ventricular paced Events: The presenting rhythm is atrial paced with biventricular pacing and frequent ventricular premature contractions No significant arrhythmias Impression Normal device function; suboptimal COUNTER WAITER pacing likely secondary to frequent PVCs. Should consider in clinic follow-up for further evaluation Follow Up As per schedule - in-clinic and remote ALBER SEALS MD Alber Seals MD IMPLANTABLE CARDIAC DEVICE documented in this encounter Visit Diagnoses Diagnosis Cardiomyopathy, primary Other primary cardiomyopathies documented in this encounter Care Teams Cone Machine Operator Relationship Specialty Start Date End Date Donny Cooper MD [address] [place] [address] PCP - General Family Medicine 02/25/19 documented as of this encounter
--- OUTSIDE RECORDS SUMMARY | 2023-12-24 08:11 | XMS_ITS | Encounter Summary ---
Author Organization [facility] [place] [address] Care Team Providers Care Student Records Coordinator Name Role Phone Marques Martinez MD Primary Care Provider [phone] Encounter Details Date Type Department Care Team (Late st Contact Info) Description 06/12/2010 2:10 PM EST Office [place] [address] Jairon Fenton MD [facility] DR [place] [address] Discharge Disposition: Home Social History Tobacco Use [...] AM EDT Hospital Encounter Non-[place] [address] Arrived documented as of this encounter Visit Diagnoses Not on filedocumented in this encounter Care Teams Student Records Coordinator Relationship Specialty Start Date End Date Marques Martinez MD [address] [place] [address] PCP - General 04/01/10 04/08/11 documented as of this encounter
--- OUTSIDE RECORDS SUMMARY | 2023-12-24 08:11 | XMS_ITS | Encounter Summary ---
Author Organization [place] [address] Care Team Providers Care Alarm Installation Technician Name Role Phone Marques Martinez MD Primary Care Provider [phone] Encounter Details Date Type Department Care Team (Late st Contact Info) Description 03/30/2010 [place] [address] Javier Barajas MD [facility] [place] [address] Social History Tobacco Use Types Packs/Day Years [...] AM EDT Hospital Encounter Non[place] [address] Arrived documented as of this encounter Procedures [...] Jairon Fenton MD CHEMISTRY ORDERABLES [facility] * (ABNORMAL) CREATININE, SERUM (04/01/2010 6:09 AM [...] Fenton MD CHEMISTRY ORDERABLES Performing Organization Address [facility] de Phone Number [facility]ERNER [facility] * BUN (04/01/2010 6:09 AM EST) Blood Urea Nitrogen 12 10 - 20 mg/dL [facility] Blood specimen (specimen) 04/01/2010 6:09 AM EST 04/01/2010 6:09 AM EST Jairon Fenton MD CHEMISTRY ORDERABLES Performing Organization Address [facility] de Phone Number CERNER MILLENNIUM * [...] MD HEMATOLOGY ORDERABLE S Performing Organization Address [facility] de Phone Number CERNER MILLENNIUM * [...] Fenton MD CHEMISTRY ORDERABLES Performing Organization Address [facility] Phone Number CERIVIS MILLENNIUM * ELECTROLYTE PANEL (03/30/2010 6:05 PM EST) Pathologist [facility] Sodium 135 135 - 145 [...] 6:05 PM EST 03/30/2010 6:13 PM EST aJiron Fenton MD CHEMISTRY ORDERABLES Performing Organization Address [facility] Co de Phone Number CERIVIS MILLENNIUM * CREATININE, SERUM (03/30/2010 6:05 PM EST) Creatinine 0.87 0.80 - 1.50 mg/dL [facility] Est Glomerular Filtration Rate >60 >=60 [facility] Comment: The National Kidney Disease Education [...] Urea Nitrogen 18 10 - 20 mg/dL [facility] Blood specimen (specimen) 03/30/2010 6:05 PM EST 03/30/2010 6:13 PM EST Jairon Fenton MD CHEMISTRY ORDERABLES Performing Organization Address [facility] de Phone Number DEJA SEGOVIA * APTT (03/30/2010 6:05 PM EST) Partial Thromboplastin Time 26 25 - 37 sec [facility] Comment: Recommended therapeutic PTT range for full dose unfractionated heparin is 80-114 seconds. Blood specimen (specimen) 03/30/2010 6:05 PM EST 03/30/2010 6:14 PM EST Jairon Fenton MD HEMATOLOGY ORDERABLE S Performing Organization Address [facility] Phone Number DEJA SEGOVIA * PROTIME-INR (03/30/2010 6:05 PM EST) Prothrombin Time 14.2 12.3 - 14.7 sec [facility] Comment: [facility] Transfusion Committee Guidelines: INR less than 2.0, PTT less than OR equal to 43.5 seconds, or Fibrinogen greater than or equal to 100 mg/dl indicate adequate procoagulant activity for hemostasis in patients without underlying bleeding disorders. International Normalization Ratio 1.1 0.9 - 1.1 [facility] Blood specimen (specimen) 03/30/2010 6:05 PM EST 03/30/2010 6:14 PM EST Jairon Fenton MD HEMATOLOGY ORDERABLE S Performing Organization Address [facility] de Phone Number DEJA SEGOVIA * [...] Standard Deviation 44.2 35.0 - 46.0 fL [facility] RDW coefficient of variation 13.1 10.9 - 14.4 % [facility] Mean Platelet Volume 10.6 9.0 - 12.0 fL [facility] Blood specimen (specimen) 03/30/2010 6:05 PM EST 03/30/2010 6:13 PM EST Jairon Fenton MD HEMATOLOGY ORDERABLE S Performing Organization Address [facility] Co de Phone Number [facility] * REFLEX LAB-ANTIBODY SCREEN (03/30/2010 3:17 PM EST) [facility] Ab Screen Interp Negative [facility] Expires at [id number] on: [id number] [facility] Blood specimen (specimen) 03/30/2010 3:17 PM EST 03/30/2010 3:17 PM EST Javier Barajas MD BLOOD BANK LAB ORDER PRECIOUS Performing Organization Address [facility] Co de Phone Number [facility] * REFLEX LAB-ABO/RH (03/30/2010 3:17 PM EST) [facility] ABORH Type A Pos [facility] Blood specimen (specimen) 03/30/2010 3:17 PM EST 03/30/2010 3:17 PM EST Javier Baarjas MD BLOOD BANK LAB ORDER PRECIOUS Performing Organization Address [facility] Co de Phone Number [facility] * ELECTROLYTE PANEL (03/30/2010 2:50 PM EST) [facility] Sodium 135 135 - 145 mmol/L [facility] Potassium 4.3 3.5 - 5.0 mmol/L [facility] Comment: Please note: ??Patients with WBC [...] Barajas MD CHEMISTRY ORDERABLES Performing Organization Address [facility] Phone Number [facility] * BUN (03/30/2010 2:50 PM EST) Blood Urea Nitrogen 18 10 - 20 mg/dL [facility] Blood specimen (specimen) 03/30/2010 2:50 PM EST 03/30/2010 3:05 PM EST Javier Barajas MD CHEMISTRY ORDERABLES Performing Organization Address [facility] Phone Number [facility] * GLUCOSE, RANDOM (03/30/2010 2:50 PM EST) Glucose 95 <=199 mg/dL [facility] Comment:Diabetes: >=200 mg/d L plus symptoms Blood specimen (specimen) 03/30/2010 2:50 PM EST 03/30/2010 3:05 PM EST Javier Barajas MD CHEMISTRY ORDERABLES Performing Organization Address [facility] Phone Number [facility] * APTT (03/30/2010 2:50 PM EST) Partial Thromboplastin Time 25 25 - 37 sec [facility] Comment: Recommended therapeutic PTT range for full dose unfractionated heparin is 80-114 seconds. Blood specimen (specimen) 03/30/2010 2:50 PM EST 03/30/2010 3:06 PM EST Javier Barajas MD HEMATOLOGY ORDERABLE S Performing Organization Address [facility] Phone Number [facility] * PROTIME-INR (03/30/2010 2:50 PM EST) Prothrombin Time 14.1 12.3 - 14.7 sec [facility] Comment: [facility] Transfusion Committee Guidelines: INR less than 2.0, [...] on filedocumented in this encounter Care Teams Alarm Installation Technician Relationship Specialty Start Date End Date Marques Martinez MD [address] [place] [address] PCP - General 04/01/10 04/08/11 documented as of this encounter
--- OUTSIDE RECORDS SUMMARY | 2023-12-24 08:11 | XMS_ITS | Encounter Summary ---
Author Organization [facility] [place] [address] Care Team Providers Care Director Product Management Name Role Phone Clem Olvera MD Primary Care Provider [phone] Reason for Visit * Reason Comments Follow Up Fracture SP PATELLA FX DO12/12 DOI 03/30/10 Encounter Details Date Type Department Care Team (Late st Contact Info) Description 04/09/2011 1:30 PM EST Office [place] [address] Jairon Gustafson MD [facility] [place] [address] Jose Francisco Bee PA [facility] [place] [address] Patella fracture (Primary Dx) Discharge Disposition: Home [...] AM EDT Hospital Encounter Non-[place] [address] Arrived documented as of this encounter Visit Diagnoses Diagnosis Patella fracture- Primary Closed fracture of patella documented in this encounter Care Teams Director Product Management Relationship Specialty Start Date End Date Clem Olvera MD [address] [place] [address] PCP - General 04/09/11 02/24/19 documented as of this encounter
--- OUTSIDE RECORDS SUMMARY | 2023-12-24 08:11 | XMS_ITS | Encounter Summary ---
Author Organization [facility] [address] Care Team Providers Care Crop Duster Name Role Phone Donny Cooper MD Primary Care Provider [phone] Encounter Details Date Type Department Care Team (Latest Contact Info) Description 10/03/2022 10:00 AM EDT Office Visit Cardiology at [address] [address] Eleno No PA [facility] [place] [address] Cardiomyopathy, primary; Presence of cardiac resynchronization therapy defibrillator (CORPORATE TRAINER-D); Diaphragmatic stimulation by cardiac pacemaker, initial encounter [...] original note were not included. Cardiac Device CORPORATE TRAINER-D Programming Evaluation Nabil Iglesias [id number] 10/03/2022 History: Mr. 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 [...] AM EDT Hospital Encounter Non-Invasive [place] [address] Arrived documented as of this encounter Procedures Procedure Name Priority Date/Time Associated Diagnosis Comments EKG 12-LEAD Routine 10/03/2022 11:00 AM EDT Cardiomyopathy, primary Presence of cardiac resynchronization therapy defibrillator (CORPORATE TRAINER-D) Diaphragmatic stimulation by cardiac pacemaker, initial encounter documented in this encounter Results * EKG 12 Lead (10/03/2022 11:00 AM EDT) Ventricular rate 74 BPM MUSE SYSTEM Atrial Rate 74 BPM MUSE SYSTEM P-R Interval 154 ms MUSE SYSTEM QRS Duration 162 ms MUSE SYSTEM Q-T Interval 470 ms MUSE SYSTEM QTC Calculated (Bezet) 521 ms MUSE SYSTEM Calculated P Nada 30 degrees MUSE SYSTEM Calculated R Nada -98 degrees MUSE SYSTEM Calculated T Nada 41 degrees MUSE SYSTEM INTERPRETATION Atrial-sense d [...] cardiomyopathies Presence of cardiac resynchronization therapy defibrillator (CORPORATE TRAINER-D) Diaphragmatic stimulation by cardiac pacemaker, initial encounter documented in this encounter Care Teams Crop Duster Relationship Specialty Start Date End Date Donny Cooper MD [address] [place] [address] PCP - General Family Medicine 02/25/19 documented as of this encounter
--- OUTSIDE RECORDS SUMMARY | 2023-12-24 08:11 | XMS_ITS | Encounter Summary ---
[place] [address] Care Team Providers Care Medical Director Occupational Health Name Role Phone Donny Cooper MD Primary Care Provider [phone] Encounter Details Date Type Department Care Team (Latest Contact Info) Description 01/03/2023 10:00 AM EDT - 01/03/2023 11:59 PM EDT Hospital Encounter Non-[place] [address] Discharge Disposition: Home Social History Tobacco Use [...] AM EDT Hospital Encounter Non-[place] [address] Arrived documented as of this encounter Procedures [...] filedocumented in this encounter Care Teams Medical Director Occupational Health Relationship Specialty Start Date End Date Donny Cooper MD [address] [place] [address] PCP - General Family Medicine 02/25/19 documented as of this encounter
--- OUTSIDE RECORDS SUMMARY | 2023-12-24 08:11 | XMS_ITS | Encounter Summary ---
[place] [address] Care Team Providers Care Scoring Machine Operator Name Role Phone Donny Cooper MD Primary Care Provider [phone] Encounter Details Date Type Department Care Team (Late st Contact Info) Description 03/17/2019 Telephone Cardiology at [address] [address] Sheri Quinn LNA Social History [...] 11:46 AM EST Medication list reviewed with [facility] list. Please review with patient at next clinic visit. documented in this encounter Plan of Treatment Upcoming Encounters Date Type Department Care Team (Late st Contact Info) Description 02/02/2024 10:00 AM EDT Hospital Encounter Non[place] [address] Arrived documented as of this encounter Visit Diagnoses Not on filedocumented in this encounter Care Teams Scoring Machine Operator Relationship Specialty Start Date End Date Donny Cooper MD [address] [place] [address] PCP - General Family Medicine 02/25/19 documented as of this encounter
--- OUTSIDE RECORDS SUMMARY | 2023-12-24 08:11 | XMS_ITS | Encounter Summary ---
[place] [address] Care Team Providers Care Train Starter Name Role Phone Donny Cooper MD Primary Care Provider [phone] Encounter Details Date Type Department Care Team (Latest Contact Info) Description 04/08/2022 10:00 AM EST - 04/08/2022 11:59 PM [facility] Hospital Encounter [place] [address] Discharge Disposition: Home Social History Tobacco Use [...] AM EDT Hospital Encounter [place] [address] Arrived documented as of this [...] on filedocumented in this encounter Care Teams Train Starter Relationship Specialty Start Date End Date Donny Cooper MD [address] [place] [address] PCP - General Family Medicine 02/25/19 documented as of this encounter
--- OUTSIDE RECORDS SUMMARY | 2023-12-24 08:11 | XMS_ITS | Encounter Summary ---
[place] [address] Care Team Providers Care Whip Operator Name Role Phone Donny Cooper MD Primary Care Provider [phone] Encounter Details Date Type Department Care Team [...] AM EDT Hospital Encounter Non-Invasive [place] [address] Arrived documented as of this encounter Visit Diagnoses Not on filedocumented in this encounter Care Teams Whip Operator Relationship Specialty Start Date End Date Donny Cooper MD [address] [place] [address] PCP - General Family Medicine 02/25/19 documented as of this encounter
--- OUTSIDE RECORDS SUMMARY | 2023-12-24 08:11 | XMS_ITS | Encounter Summary ---
Author Organization [place] [address] Care Team Providers Care Electrologist Name Role Phone Marques Martinez MD Primary Care Provider Encounter Details Date Type Department Care Team (Late st Contact Info) Description 09/11/2010 Orders [place] [address] Jairon Fenton MD [facility] [place] [address] Fracture of patella, left, closed (Primary Dx) [...] AM EDT Hospital Encounter Non-[place] [address] Arrived documented as of this encounter Visit Diagnoses Diagnosis Fracture of patella, left, closed- Primary Closed fracture of patella documented in this encounter Care Teams Electrologist Relationship Specialty Start Date End Date Marques Martinez MD [address] [place] [address] PCP - General 04/01/10 04/08/11 documented as of this encounter
--- OUTSIDE RECORDS SUMMARY | 2023-12-24 08:11 | XMS_ITS | Encounter Summary ---
[place] [address] Care Team Providers Care Power Plant Operators Supervisor Name Role Phone Donny Cooper MD Primary Care Provider [phone] Encounter Details Date Type Department Care Team (Latest Contact Info) Description 10/05/2022 10:00 AM EDT - 10/05/2022 11:59 PM EDT Hospital Encounter Non-Invasive [place] [address] Discharge Disposition: Home Social History Tobacco Use [...] EDT Hospital Encounter Non-Invasive [place] [address] Arrived documented as of this encounter Procedures [...] on filedocumented in this encounter Care Teams Power Plant Operators Supervisor Relationship Specialty Start Date End Date Donny Cooper MD [address] [place] [address] PCP - General Family Medicine 02/25/19 documented as of this encounter
--- OUTSIDE RECORDS SUMMARY | 2023-12-24 08:11 | XMS_ITS | Encounter Summary ---
[place] [address] Care Team Providers Care Water Leak Repairer Name Role Phone Marques Martinez MD Primary Care Provider [phone] Encounter Details Date Type Department Care Team (Late st Contact Info) Description 05/01/2010 2:40 PM EST Procedure visit [place] [address] Social History Tobacco Use Types Packs/Day Years [...] AM EDT Hospital Encounter Non-Invasive [place] [address] Arrived documented as of this encounter Visit Diagnoses Not on filedocumented in this encounter Care Teams Water Leak Repairer Relationship Specialty Start Date End Date aMrques Martinez MD [address] [place] [address] PCP - General 04/01/10 04/08/11 documented as of this encounter
[2023-12-24 08:16] VITALS: BP 104/63; PULSE 70
[2023-12-29 08:12] VITALS: BP 131/71; PULSE 71
--- OUTSIDE RECORDS SUMMARY | 2023-12-29 08:12 | XMS_ITS | Clinical Summary ---
Author Organization [facility] Address [address] [place] [address] Care Team Providers Care Wick Tender Name Role Phone Clem Olvera MD Primary Care Provider [phone] Allergies No known active allergies Medications Medication [...] 05/04/2002 - 05/03/20032013 second pacemaker [facility] Medical History Medical History Date Comments CAD [...] Advance Directives For more information, please contact: [phone] * Full Code (Latest Code Status on File) Date Activated Date Inactivated Comments 02/27/2016 8:49 02/28/2016 15:40 Question Answer Comments Reason for decision includes: Full code consistent with overall plan of care Who participated in the discussion? Not Discusse d Care Teams Wick Tender Relationship Specialty Start Date End Date Clem Olvera MD [address] [place] [address] PCP - General 12/18/15
--- OUTSIDE RECORDS SUMMARY | 2023-12-29 08:12 | XMS_ITS | Encounter Summary ---
Author Organization [facility] Address [address] [place] [address] Care Team Providers Care Fitness And Wellness Manager Name Role Phone Unavailable Primary Care Provider Unavailabl e Encounter Details Date Type Department Care Team (Late st Contact Info) Description 12/02/2012 Results Only [facility] Laboratory Services - [facility] ([facility] [address] [place] [address] [id number] Satinder Edwards MD [address] [place] [address] Social History Tobacco Use Types Packs/Day Years [...] ? NABIL IGLESIAS ? Accession #: ? [id number] ? : ? 1940 (Age: 72) ??M [...] MD PATHOLOGY ORDERABLE S Performing Organization Address City/State/[facility] Co de Phone Number DIVYA BERRY [address] [place] [address] documented in this encounter Visit Diagnoses Not on filedocumented in this encounter
--- OUTSIDE RECORDS SUMMARY | 2023-12-29 08:12 | XMS_ITS | Encounter Summary ---
Author Organization [facility] Address [address] [place] [address] Care Team Providers Care Heel Nailing Machine Operator Name Role Phone Clem Olvera MD Primary Care Provider [phone] Reason for Visit * Reason Onset Date Comments Appointment Related 10/23/2016 Check for fo llow up of pacer Encounter Details Date Type Department Care Team ([facility] Contact Info) Description 10/23/2016 Telephone [facility] Cardiology - [address] [place] [address] Pacemaker, Pace Appointment Related (Check [...] Nabil had his pacemaker checked in [place] where they are for the winter. They have some back and are being followed by Dr. Hurd at [facility]. documented in this encounter Plan of Treatment Not on file documented as of this encounter Visit Diagnoses Not on filedocumented in this encounter Care Teams Heel Nailing Machine Operator Relationship Specialty Start Date End Date Clem Olvera MD [address] [place] [address] PCP - General 12/18/15 documented as of this encounter
--- OUTSIDE RECORDS SUMMARY | 2023-12-29 08:12 | XMS_ITS | Encounter Summary ---
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 Procedures IMPLANTABLE CARDIAC DEFIBRILLATOR PROCEDURE Navdeep Hurd MD [address] [place], [place] [address]A [address] [place] [address] Referral ID Status Reason Start Date Expiration Date Visits Re quested Visits Authorized [id number] Closed 02/13/2016 1 1 Encounter Details Date Type Department Care Team (Latest Contact Info) Description 02/13/2016 Pre-Procedure Orders Encounter [facility] [address] [place], [place] [address] Navdeep Hurd [facility] [address] [facility] [address] [place] [address] ICD (implantable cardioverter-defibril lator) battery [...] 8 EDT Narrative 02/27/2016 15:17 EDT *Cardiology* [address] [place] [address] Lead Revision (Report amended ) Patient: Nabil Iglesias ?Study Date: ?02/27/2016 ? Accession #: ? [id number] : ? 1940 Referring: Clem Olvera Attending: [...] 0.35 glide wire a Nick MENDOZAW 6F ([facility]) 6 mm-40 mm balloon dilation still [...] fascia. The leads were connected to a ENTRY LEVEL FINANCIAL ANALYST-D device. Device and Lead detail in table [...] Implanted device: Medtronic - Viva Quad XT ENTRY LEVEL FINANCIAL ANALYST-D DF4 - Serial number: [id number] Explanted device: Medtronic - Viva XT ENTRY LEVEL FINANCIAL ANALYST-D DF4 - Serial number: [id number]. LEAD PARAMETERS + + + + + [...] + + + + + Serial number [id number] ? [id number] ?? [id number] ?? [id number] ? + + + + [...] Gulshan Drummond MD - 05/12/2016 *Cardiology* [address] [place] [address] Lead Revision (Report amended ) Patient: Nabil [...] therefore over an 0.35 glide wire [facility] ([facility]) 6 mm-40 mm balloon dilation still [...] fascia. The leads were connected to a ENTRY LEVEL FINANCIAL ANALYST-D device. Device and Lead detail in table [...] Implanted device: Medtronic - Viva Quad XT ENTRY LEVEL FINANCIAL ANALYST-D DF4 - Serial number: [id number] Explanted device: Medtronic - Viva XT ENTRY LEVEL FINANCIAL ANALYST-D DF4 - Serial number: [id number]. LEAD PARAMETERS + + + + + + Lead # 1 2 3 4 + + + + + + Chamber RA RV LV LV + + + + + + Date 07/19/2002 07/18/2013 02/27/2016 07/18/2013 implanted + + + + + + Model St. Esa Medtronic Medtronic Enpath information [id number] Attain Epicardial Performa 4298 + + + + + + Serial number [id number] + + + + + + [...] situ documented in this encounter Care Teams Plastic Technician Relationship Specialty Start Date End Date Clem Olvera MD [address] [place] [address] PCP - General 12/18/15 documented as of this encounter
--- OUTSIDE RECORDS SUMMARY | 2023-12-29 08:12 | XMS_ITS | Encounter Summary ---
[place] [address] Care Team Providers Care Steel Tier Name Role Phone Donny Cooper MD Primary Care Provider [phone] Encounter Details Date Type Department Care Team (Late st Contact Info) Description 12/28/2023 Notes Only Cardiology at [address] [address] Kanika Shell Social History Tobacco Use Types Packs/Day Years [...] AM EDT Hospital Encounter Non[place] [address] Arrived documented as of this encounter Visit Diagnoses Not on filedocumented in this encounter Care Teams Steel Tier Relationship Specialty Start Date End Date Donny Cooper MD [address] [place] [address] PCP - General Family Medicine 02/25/19 documented as of this encounter
--- OUTSIDE RECORDS SUMMARY | 2023-12-29 08:12 | XMS_ITS | Encounter Summary ---
Author Organization [facility] Address [address] [place] [address] Care Team Providers Care Turfgrass Management Professor Name Role Phone Unavailable Primary Care Provider Unavailabl e Encounter Details Date Type Department Care Team (Late st Contact Info) Description 05/06/2001 Results Only [facility] - Maple conversion [address] [place] [address] Hernandez Partida MD [address] [place] [phone] Social History Tobacco Use Types Packs/Day Years [...] is submitted entirely in cassette (B). ??(Naty Caal)/[facility] End of Report [facility] 05/06/2001 05/07/2001 9:2 5 EST Hernandez Partida MD PATHOLOGY ORDERABLES [facility] [address] [place] [address] documented in this encounter Visit Diagnoses Not on filedocumented in this encounter
--- OUTSIDE RECORDS SUMMARY | 2023-12-29 08:12 | XMS_ITS | Clinical Summary ---
Author Organization [facility]ly [facility] [place] [address] Care Team Providers Care Joy Loading Machine Operator Name Role Phone Donny Cooper MD Primary Care Provider [phone] Allergies No known active allergies Medications Medication [...] Encounters Date Type Department Care Team Description 12/28/2023 Notes Only Cardiology at [address] [phone] Kanika Shell 11/04/2023 10:00 AM EDT - 11/04/2023 11:59 PM EDT Hospital Encounter [place] [phone] Discharge Disposition: Home from Last 3 Months [...] AM EDT Hospital Encounter [place] [phone] Arrived Health Maintenance Due Date Last Done Comments Tdap adult 08/19/1959 Tetanus vaccine 08/19/1959 Zoster vaccine (1 of 2) 1990 Advance Directive 08/19/1995 Pneumoccocal Vaccine: 65+ (2 of 2 - PCV) 05/04/2009 05/04/2008 Covid-19 Vaccine (1 - 2022- season) 2023 Influenza (Flu) vaccine (1 o f 1 - Influenza standard series) 01/03/2024 02/01/2010, 03/06/2006, 02/24/2005 Medical Devices Implanted Type Area Precast [employer]crete Products Installer Device Identifier Shelf Expiration Date Model / Serial / Lot Mdt : [id number] : [id number] Implanted: (Quantity not on file) Cardiac Resynchronization Therapy - Defibrillator Chest Medtronic - [id number] / [id number] / Care Teams Joy Loading Machine Operator Relationship Specialty Start Date End Date Donny Cooper MD [address] [place], [place] [id number] PCP - General Family Medicine 02/25/19
--- OUTSIDE RECORDS SUMMARY | 2023-12-29 08:12 | XMS_ITS | Encounter Summary ---
Author Organization [facility] Address [address] [place] [address] Care Team Providers Care Product Development Assistant Name Role Phone Clem Olvera MD Primary Care Provider [phone] Encounter Details Date Type Department Care Team (Late st Contact Info) Description 03/16/2019 Abstract [facility] [place] [place] Cardiology Clinic [address] [place] [address] Ronal Avelar, JADON AV block, 2nd degree [...] Laterality Modality Device Narrative 03/24/2019 10:30 EST [facility] [place] [place] Cardiology Device Visit Fittings Tightener: SuperTrupertronic Device Type: OFFICE EQUIPMENT TECHNICIAN-D Service: Remote ? 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
--- OUTSIDE RECORDS SUMMARY | 2023-12-29 08:12 | XMS_ITS | Encounter Summary ---
Author Organization [facility] Address [address] [place] [address] Care Team Providers Care Quitline Counselor Name Role Phone Clem Olvera MD Primary Care Provider [phone] Reason for Visit * Reason Onset Date Comments Other 04/04/2019 Transfer request for Pacer Care at [facility] Encounter Details Date Type Department Care Team (Late st Contact Info) Description 04/04/2019 Telephone [facility] Cardiology Clinic [address] [place] [address] Giselle Hill, TECH BRAZER TESTER Other (Transfer request for Pacer Care at [facility]) Social History Tobacco Use Types Packs/Day Years [...] 04/04/2019 1503 EST I went into the [employer] Website and released pt to [facility] Pacer Clinic as requested. * Telephone Encounter - Suze Reynoso - 04/04/2019 1342 EST PT WILL BE HAVING HIS PACER CARE DONE AT [facility], PLEASE RELEASE HIS REMOTE MONITORING SO THAT THEY CAN PICK IT UP documented in this encounter Plan of Treatment Not on file documented as of this encounter Visit Diagnoses Not on filedocumented in this encounter Care Teams Quitline Counselor Relationship Specialty Start Date End Date Clem Olvera MD [address] [place] [address] PCP - General 12/18/15 documented as of this encounter
--- OUTSIDE RECORDS SUMMARY | 2023-12-29 08:12 | XMS_ITS | Encounter Summary ---
Author Organization [facility] Address [address] [place] [address] Care Team Providers Care Pig Furnace Operator Name Role Phone Unknown, Provider Primary Care Provider [phone] Clem Olvera MD Primary Care Provider [phone] Encounter Details Date Type Department Care Team (Late st Contact Info) Description 11/29/2015 Pre-Procedure Orders Encounter [facility] [address], [place] [id number] Navdeep Hurd MD [address] [place] [address] [phone] Social History Tobacco Use Types [...] Patient: Nabil Streeter. Attending: Dr. Moran Scrrajinder Applications Support Specialist: Dr. Fantasma Dhillon History/indication: The patient is [...] Date: 12/20/2015 Patient: Nabil Streeter Attending: Dr. Dena Bailey Applications Support Specialist: Dr. Fantasma Dhillon History/indication: The patient is [...] - General 12/06/12 12/17/15 Clem Olvera MD [address] [place] [id number] PCP - General 12/18/15 documented as of this encounter
--- OUTSIDE RECORDS SUMMARY | 2023-12-29 08:12 | XMS_ITS | Encounter Summary ---
Author Organization [facility] Address [address] [place] [address] Care Team Providers Care Converting Technician Name Role Phone Clem Olvera MD Primary Care Provider [phone] Encounter Details Date Type Department Care Team (Latest Contact Info) Description 12/20/2015 10:52 EDT - 12/20/2015 23:52 EDT Hospital Encounter [facility] [address] [place] [address] Navdeep Hurd MD [address] [place] [address] [phone] Discharge Disposition: Home or Self [...] in this encounter Progress Notes * Theresa Mrecado RN - 12/20/2015 1317 EDT Pt received [...] need to beNPO or have a electric train driver. However, his will be accompanying him. They are driving someone to the airport for 1000 and then will come here and check-in around 1145. He agrees to have a shower. documented in this encounter Procedure Notes * Fantasma Dhillon MD - 12/20/2015 1356 EDT IR Brief Procedure Note Attending: Leo 3D Artist: Alejo Pre-op Dx: Arrhythmia, need for pacemaker [...] 12/19 documented in this encounter Care Teams Converting Technician Relationship Specialty Start Date End Date Clem Olvera MD [address] [place] [id number] PCP - General 12/18/15 documented as of this encounter
--- OUTSIDE RECORDS SUMMARY | 2023-12-29 08:12 | XMS_ITS | Encounter Summary ---
[place] [address] Care Team Providers Care Obstetrics Gyn Physician Name Role Phone Donny Cooper MD Primary Care Provider [phone] Encounter Details Date Type Department Care Team (Latest Contact Info) Description 11/04/2023 10:00 AM EDT - 11/04/2023 11:59 PM EDT Hospital Encounter [place] [address] Discharge Disposition: Home Social History Tobacco Use [...] AM EDT Hospital Encounter Non-[place] [phone] Arrived documented as of this encounter Procedures [...] on filedocumented in this encounter Care Teams Obstetrics Gyn Physician Relationship Specialty Start Date End Date Donny Cooper MD [address] [place] [address] PCP - General Family Medicine 02/25/19 documented as of this encounter
--- OUTSIDE RECORDS SUMMARY | 2023-12-29 08:12 | XMS_ITS | Encounter Summary ---
[place] [address] Care Team Providers Care Crab Fisher Name Role Phone Donny Cooper MD Primary Care Provider [phone] Encounter Details Date Type Department Care Team (Latest Contact Info) Description 08/06/2023 10:00 AM EDT - 08/06/2023 11:59 PM EDT Hospital Encounter Non-[place]vasive [place] [address] Discharge Disposition: Home Social History Tobacco Use [...] AM EDT Hospital Encounter Non-Invasive [place] [phone] Arrived documented as of this encounter Visit Diagnoses Not on filedocumented in this encounter Care Teams Crab Fisher Relationship Specialty Start Date End Date Donny Cooper MD [address] [place] [address] PCP - General Family Medicine 02/25/19 documented as of this encounter
--- OUTSIDE RECORDS SUMMARY | 2023-12-29 08:12 | XMS_ITS | Encounter Summary ---
[place] [address] Care Team Providers Care Metal Numerical Tool Programmer Name Role Phone Donny Cooper MD Primary Care Provider [phone] Encounter Details Date Type Department Care Team (Latest Contact Info) Description 07/02/2023 10:00 AM EST - 07/02/2023 11:59 PM EST Hospital Encounter Non-[place] [address] Discharge Disposition: Home Social History Tobacco Use [...] AM EDT Hospital Encounter Non-[place]vasive [place] [address] Arrived documented as of this encounter Visit Diagnoses Not on filedocumented in this encounter Care Teams Metal Numerical Tool Programmer Relationship Specialty Start Date End Date Donny Cooper MD [address] [place] [address] PCP - General Family Medicine 02/25/19 documented as of this encounter
--- OUTSIDE RECORDS SUMMARY | 2023-12-29 08:12 | XMS_ITS | Encounter Summary ---
Author Organization [facility] Address [address] [place] [address] Care Team Providers Care Barley Steeper Name Role Phone Clem Olvera MD Primary Care Provider [phone] Reason for Referral * (Routine) - Closed Specialty Diagnoses / Procedures Referred By Pedro madera Referred To Contact Beatrice De La Garza NP [address] [place] [phone] Referral ID Status Reason Start Date Expiration Date V isits Requested Visits Authorized [id number] Closed Specialty Services Required 02/27/2016 1 1 Comments You must contact us if we have not contacted you or you have missed your scheduled appointment. If you have any nursing questions, please don't hesitate to call the Cardiac Arrhythmia Service at [facility] at [phone] or , extension [phone]. For any scheduling of appointments, please call [phone] or , extension [phone]. . * (Routine) - Closed Specialty Diagnoses / Procedures Referred By Pedro madera Referred To Contact Beatrice De La Garza NP [address] [address] Referral ID Status Reason Start Date Expiration Date V isits Requested Visits Authorized [id number] Closed Specialty Services Required 02/27/2016 1 1 Comments You have a pre existing appointment with Dr. Olvera on March 05 at 2:00, please have Dr. Olvera check your incision at that visit. * (Routine) - Closed Specialty Diagnoses / Procedures Referred By Contbecca t Referred To Contact Beatrice De La Garza NP [address] [address] Referral ID Status Reason Start Date Expiration Date V isits Requested Visits Authorized [id number] Closed Specialty Services Required 02/27/2016 1 1 [...] [facility] at [address] [facility] in [place] -Clinics are also held in [facility], and [place], [place] and [facility]. If you live in those areas, we will make arrangements for follow-up appointments in one of those clinics.. Encounter Details Date Type Department Care Team (Late st Contact Info) Description 02/27/2016 6:30 EDT - 02/28/2016 13:39 EDT Hospital Encounter [facility] Cardiac/Telemetry Unit [address] [place] [address] Gulshan Drummond MD PhD [address] [address] Gulshan Montoya Sa, MD [address] [facility] [address] [place] [phone] AICD lead malfunction, subsequent encounter; ICD [...] around May 2013, when he was in [place], [place]. This triggered major cardiac workup including [...] then underwent a device upgrade to a NET MOBILE DEVELOPER-D device with biventricular pacing for his EF [...] been followed in cardiology outreach clinic at [facility] in [place]. Continued high pacing threshold on the epicardial [...] and plans to follow up with his Gang Mower Operator in [place] in 6-8 weeks for [...] HGBA1C Discharge Follow Up Appointments Scheduled with [facility] Appointments Outside of [facility] We Will Schedule Studies We Will Schedule Appointments We Recommend but have not been Scheduled Beatrice De La Garza NP 02/27/2016 10:59 Associated attestation - Gulshan Montoya Sa, MD - 02/28/2016 1519 EDT Attending Attestation: I saw and evaluated the patient. I discussed the case with the resident/CONSTITUTIONAL LAW PROFESSOR/fellow and agree with the findings and plan [...] Notes * Lou Alfonso RN - 02/28/2016 5839 EDT Pt awaiting discharge. IV and tele was removed by primary nurse. This RN administered flu shot and provided flu information sheet. AVS and medications reviewed by RN with patient and . AVS statedcoreg was 3.25mg BID, which pt states no, they must have copied it down wrong. I'm not doing that.We've been through this in [place]. It makes me pass out. RN suggested checking with team, which pt denied and states I wont take it twice a day. He did agree to review this medication with his nurse sane and plans to remain on his home dosing, which was in the morning. He received dose this am. Ptleft via wheelchair with . * Beatrice Rodriguez - 02/28/2016 1329 EDT Brief visit with patient and as they were being discharged. Patient states he is independent in self care and home management. He feels well supported by friends and neighbors. Patient has Medicare and [facility]. Pharmacy is [facility] in [facility]. No needs identified at time of discharge. will provide transportation. Beatrice Rodriguez RN Case Manager #[phone] documented in this encounter H&P Notes * [...] around May 2013, when he was in [place], [place]. This triggered major cardiac workup including [...] point, his device was upgraded to a NET MOBILE DEVELOPER-D device with biventricular pacing. By the patient's [...] been followed in cardiology outreach clinic at [facility] in [place]. Continued high pacing threshold on the epicardial LV lead has caused a very rapid battery depletion. Dr. David Adams in [place] recommended against lead extraction and reimplant as [...] insertion 2002 2013 second pacemaker [facility] Social History Family History Social History Substance Use Topics ??? Smoking status: Former Smoker Years: 35.00 Quit date: 1989 ??? Smokeless tobacco: Not on file ??? Alcohol use 6.6 oz/week 6 Cans of beer, 5 Glasses of wine per week , lives with , retired. Spends leong in [place]. Spends the chery in [place], [place]. Quit smoking in 1990. Has 2 [...] point, his device was upgraded to a NET MOBILE DEVELOPER-D device with biventricular pacing with a surgically [...] EST) 03/12/2016 12:4 3 EST Scan 2 Cardiac Monitor Technician PROCEDURE/MINOR JUDD GICAL ORDERABLES * ECG REPORT - SCANNED (03/04/2016 14:06 EDT) 03/04/2016 14:0 6 EDT Scan 2 Cardiac Monitor Technician PROCEDURE/MINOR JUDD GICAL ORDERABLES * ECG REPORT - SCANNED (03/04/2016 14:06 EDT) 03/04/2016 14:0 6 EDT Scan 2 Cardiac Monitor Technician PROCEDURE/MINOR JUDD GICAL ORDERABLES * IMPLANT RECORD - SCANNED (03/04/2016 14:06 EDT) 03/04/2016 14:0 6 EDT Scan 2 Cardiac Monitor Technician PROCEDURE/MINOR JUDD GICAL ORDERABLES * ECG REPORT - SCANNED (03/01/2016 8:58 EDT) 03/01/2016 8:58 EDT Scan 2 Cardiac Monitor Technician PROCEDURE/MINOR JUDD GICAL ORDERABLES * ECG REPORT - SCANNED (03/01/2016 8:58 EDT) 03/01/2016 8:58 EDT Scan 2 Cardiac Monitor Technician PROCEDURE/MINOR JUDD GICAL ORDERABLES * CHEST PA [...] IMAGING ORDERABLES * HEMAGRAM (02/28/2016 5:44 EDT) [facility] WBC 9.84 4.0 - 10.4 K/cmm 02/28/2016 6:26 EDT [facility] RBC 4.42 4.36 - 5.78 M/cmm 02/28/2016 6:26 T [facility] Hemoglobin 14.2 13.8 - 17.3 gm/dl 02/28/2016 6:26 [facility] HCT 40.9 39.5 - 50.2 % 02/28/2016 6:26 [facility] MCV 93 81 - 95 fl 02/28/2016 6:26 [facility] MCH 32.1 27.6 - 33.0 pg 02/28/2016 6:26 [facility] MCHC 34.7 32.8 - 36.4 gm/dl 02/28/2016 6:26 [facility] RDW-CV 13.1 11.8 - 14.1 % 02/28/2016 6:26 [facility] RDW-SD 44.6 36.5 - 45.9 fl 02/28/2016 6:26 [facility] PLT 151 141 - 377 K/cmm 02/28/2016 6:26 [facility] MPV 11.2 9.5 - 12.7 fl 02/28/2016 6:26 [facility] Blood specimen (specimen) BLOOD SPECIMEN / Unknown 02/28/2016 5:44 EDT 02/28/2016 6:13 EDT Beatrice De La Garza NP HEMATOLOGY & PF4 ORDERABLES [facility] [address] [place] [address] * (ABNORMAL) CREATININE (02/28/2016 5:44 EDT) Creatinine 0.65(L) 0.66 - 1.25 mg/dl 02/28/2016 6:48 EDT [facility] GFR, Calculated 95 >60 ml/min/1.7 3m2 02/28/2016 6:48 EDT [facility] Comment: eGFR calculated using CKD-EPI equation for non Americans. Multiply eGFR by 1.16 for Americans. Blood specimen (specimen) BLOOD SPECIMEN / Unknown 02/28/2016 5:44 EDT 02/28/2016 6:13 EDT Beatrice De La Garza NP CHEMISTRY & B LOOD GAS ORDERABLES Performing Organization Address [facility]/ZIP Co de Phone Number [facility] [address] [place] [address] * BUN (02/28/2016 5:44 EDT) BUN 14 10 - 26 mg/dl 02/28/2016 6:48 EDT [facility] Blood specimen (specimen) BLOOD SPECIMEN / Unknown 02/28/2016 5:44 EDT 02/28/2016 6:13 EDT Beatrice De La Garza CONSTITUTIONAL LAW PROFESSOR CHEMISTRY & B LOOD GAS ORDERABLES Performing Organization Address [facility] Co de Phone Number [facility] [address] [place] [address] * ELECTROLYTES (02/28/2016 5:44 EDT) Sodium 138 136 - 145 mEq/L 02/28/2016 6:48 EDT [facility] Potassium 4.7 3.5 - 5.0 mEq/L 02/28/2016 6:48 EDT [facility] Chloride 104 96 - 110 mEq/L 02/28/2016 6:48 EDT [facility] CO2 25 22 - 32 mEq/L 02/28/2016 6:48 EDT [facility] Comment:Note new reference r hong 02/19/16 Blood specimen (specimen) BLOOD SPECIMEN / Unknown 02/28/2016 5:44 EDT 02/28/2016 6:13 EDT Beatrice De La Garza NP CHEMISTRY & B LOOD GAS ORDERABLES [facility] [address] [place] [address] * PORTABLE CHEST 1 VIEW (02/27/2016 12:46 [...] 12:41 EDT) 02/27/2016 12:4 1 EDT Narrative [facility] E[facility] - 02/28/2016 8:57 EDT ? [facility] ? Test Date: ?2016-02-27 Pat Name: ? NABIL IGLESIAS ? Department: ?? [facility] [address] ? Room: ? MW514 Gender: ? M ?Assistant Professor Of Philosophy: ?? [id number] : ?1940 ? Requested By: KAIN REED L Order Number: [id number] ? Reading MD: ?? BRAYAN CUENCA MD ? Measurements Intervals ?[place] ? Rate: ? 63 ? P: ?15 LA: ? 159 ?QRS: ?234 QRSD: ? 156 [...] Date: 2016-02-27 Pat Name: NABIL IGLESIAS Department: [place] [address] Room: [facility] Gender: M Assistant Professor Of Philosophy: [id number] : 1940 Requested By: KAIN Gallagher Order Number: [id number] Reading MD: BRAYAN CUENCA MD Measurements Intervals [place] Rate: 63 P: 15 LA: 159 QRS: 234 QRSD: 156 T: 15 QT: 479 QTc: 493 Interpretive Statements ELECTRONIC VENTRICULAR PACEMAKER Compared to ECG 02/27/2016 08:10:34 No significant changes I reviewed the tracing and have either agreed or edited the findings inthis report. Electronically Signed On 02-28-16 08:57:02 EDT by BRAYAN BEEBE. Gulshan Drummond MD PhD CARDIA C ECG ORDERABLES [facility] EKG * PROTIME (02/27/2016 8:45 EDT) Pro Time 12.3 10.3 - 13.1 secs 02/27/2016 9:10 EDT [facility] Comment: New prothrombin t josue range effective 01/29/16 I.N.R. 1.1 0.9 - 1.1 Ratio 02/27/2016 9:10 EDT [facility] Comment: Moderate Intensity Coumadin INR = 2.0-3.0 Adjustments in anticoagulant therapy dose should be based upon the INR and NOT the Pro Time. Blood specimen (specimen) BLOOD SPECIMEN / Unknown 02/27/2016 8:45 EDT 02/27/2016 8:54 EDT Gulshan Drummond MD PhD HEMATO LOGY & PF4 ORDERABLES [facility] [address] [place] [address] * HEMAGRAM (02/27/2016 8:45 EDT) WBC 6.47 4.0 - 10.4 K/cmm 02/27/2016 8:57 EDT [facility] RBC 4.51 4.36 - 5.78 M/cmm 02/27/2016 8:57 EDT [facility] Hemoglobin 14.7 13.8 - 17.3 gm/dl 02/27/2016 8:57 EDT [facility] HCT 41.7 39.5 - 50.2 % 02/27/2016 8:57 EDT [facility] MCV 93 81 - 95 fl 02/27/2016 8:57 EDT [facility] MCH 32.6 27.6 - 33.0 pg 02/27/2016 8:57 EDT [facility] MCHC 35.3 32.8 - 36.4 gm/dl 02/27/2016 8:57 T [facility] RDW-CV 13.1 11.8 - 14.1 % 02/27/2016 8:57 EDT [facility] RDW-SD 44.0 36.5 - 45.9 fl 02/27/2016 8:57 EDT [facility] PLT 176 141 - 377 K/cmm 02/27/2016 8:57 EDT [facility] MPV 10.7 9.5 - 12.7 fl 02/27/2016 8:57 EDT [facility] Blood specimen (specimen) BLOOD SPECIMEN / Unknown 02/27/2016 8:45 EDT 02/27/2016 8:54 EDT Gulshan Drummond MD PhD HEMATO LOGY & PF4 ORDERABLES [facility] [address] [place] [address] * ELECTROLYTES (02/27/2016 8:45 EDT) Sodium 142 136 - 145 mEq/L 02/27/2016 9:13 EDT [facility] Potassium 4.7 3.5 - 5.0 mEq/L 02/27/2016 9:13 EDT [facility] Chloride 103 96 - 110 mEq/L 02/27/2016 9:13 EDT [facility] CO2 27 22 - 32 mEq/L 02/27/2016 9:13 EDT [facility] Comment:Note new reference r hong 02/19/16 Blood specimen (specimen) BLOOD SPECIMEN / Unknown 02/27/2016 8:45 EDT 02/27/2016 8:54 EDT Gulshan Drummond MD PhD CHEMIS TRY & BLOOD GAS ORDERABLES Performing Organization Address [facility] de Phone Number [facility] [address] [place] [address] * CREATININE (02/27/2016 8:45 EDT) Creatinine 0.69 0.66 - 1.25 mg/dl 02/27/2016 9:13 EDT [facility] GFR, Calculated 93 >60 ml/min/1.7 3m2 02/27/2016 9:13 EDT [facility] Comment: eGFR calculated using CKD-EPI equation for non Americans. Multiply eGFR by 1.16 for Americans. Blood specimen (specimen) BLOOD SPECIMEN / Unknown 02/27/2016 8:45 EDT 02/27/2016 8:54 EDT Gulshan Drummond MD PhD CHEMIS TRY & BLOOD GAS ORDERABLES Performing Organization Address City/[facility] Co de Phone Number [facility] [address] [place] [address] * BUN (02/27/2016 8:45 EDT) BUN 17 10 - 26 mg/dl 02/27/2016 9:13 EDT [facility] Blood specimen (specimen) BLOOD SPECIMEN / Unknown 02/27/2016 8:45 EDT 02/27/2016 8:54 EDT Gulshan Drummond MD PhD CHEMIS TRY & BLOOD GAS ORDERABLES [facility] [address] [place] [address] * EKG 12-LEAD (02/27/2016 8:08 EDT) 02/27/2016 8:08 EDT Narrative [facility] EKG - 02/28/2016 9:01 EDT ? [facility] ? Test Date: ?2016-02-27 Pat Name: ? NABIL GILESIAS ? Department: ?? [facility]iop[facility] ? Room: ? [id number] Gender: ? M ?Assistant Professor Of Philosophy: ?? [id number] : ?1940 ? Requested By: MARCIA Boo Order Number: [id number] ? Julia WRIGHT: ?? BRAYAN CUENCA MD ? Measurements Intervals ?[place] ? Rate: ? 69 ? P: ?147 LA: ? 134 ?QRS: ?-67 QRSD: ? 160 [...] Pat Name: NABIL IGLESIAS Department: [facility] Room: [id number] Gender: M Assistant Professor Of Philosophy: [id number] : 1940 Requested By: MARCIA Boo Order Number: [id number] Reading MD: BRAYAN CUENCA MD Measurements Intervals [place] Rate: 69 P: 147 LA: 134 QRS: -67 QRSD: 160 T: -59 QT: 434 QTc: 467 Interpretive Statements ELECTRONIC ATRIAL PACEMAKER ELECTRONIC VENTRICULAR PACEMAKER Compared to ECG 02/27/2016 08:08:46 No significant changes I reviewed the tracing and have either agreed or edited the findings inthis report. Electronically Signed On 02-28-16 09:01:04 EDT by BRAYAN BEEBE. Navdeep Hurd MD CARDIAC ECG ORD ERABLES [facility] EKG documented in this encounter Visit [...] Reason: Other - Comment: pt already took DRAW FRAME RUNNER, takes other meds at HS) 921 (Given [...] Reason: Other - Comment: pt already took DRAW FRAME RUNNER, takes other meds at HS)2100 (Given - Provider: Mady Bruno RN) spironolactone (ALDACTONE) tablet 12.5 mg 12.5 mg, oral, DAILY, First dose on Thu02/27/16 at 1245, Until Discontinued, Routine 1306 (Not Given - Provider: Nneka Stuart RN - Reason: Other - Comment: pt already took DRAW FRAME RUNNER, takes other meds at HS)2102 (Given - Provider: Mady Bruno RN) tamsulosin (FLOMAX) capsule 0.4 mg 0.4 mg, oral, DAILY, First dose on Thu02/27/16 at 1245, Until Discontinued, Routine 1306 (Not Given - Provider: Nneka Stuart RN - Reason: Other - Comment: pt already took DRAW FRAME RUNNER, takes other meds at HS) 921 (Given [...] 02/02 documented in this encounter Care Teams Barley Steeper Relationship Specialty Start Date End Date Clem Olvera MD [address] [place] [address] PCP - General 12/18/15 documented as of this encounter
--- OUTSIDE RECORDS SUMMARY | 2023-12-29 08:12 | XMS_ITS | Referral Summary ---
Author Organization [facility] Address [address] [place] [address] Care Team Providers Care Tonal Regulator Name Role Phone Clem Olvera MD Primary Care Provider [phone] Allergies No known active allergies Medications Medication [...] Advance Directives For more information, please contact: [phone] * Full Code (Latest Code Status on File) Date Activated Date Inactivated Comments 02/27/2016 8:49 02/28/2016 15:40 Question Answer Comments Reason for decision includes: Full code consistent with overall plan of care Who participated in the discussion? Not Discusse d Care Teams Tonal Regulator Relationship Specialty Start Date End Date Clem Olvera MD [address] [place] [id number] PCP - General 12/18/15
--- OUTSIDE RECORDS SUMMARY | 2023-12-29 08:13 | XMS_ITS | Encounter Summary ---
Author Organization [facility] [address] Care Team Providers Care Photolithographer Name Role Phone Donny Cooper MD Primary Care Provider [phone] Encounter Details Date Type Department Care Team (Latest Contact Info) Description 10/03/2022 10:00 AM EDT Office Visit Cardiology at [address] [address] Eleno No PA [facility] [address] Cardiomyopathy, primary; Presence of cardiac resynchronization therapy defibrillator (WHARF TENDER HELPER-D); Diaphragmatic stimulation by cardiac pacemaker, initial encounter [...] original note were not included. Cardiac Device WHARF TENDER HELPER-D Programming Evaluation Nabil Iglesias [id number] 10/03/2022 History: Mr. Iglesias is a pleasant [...] OFF Pacing Mode: DDD 60/130/120 Presenting EGMs: -BP/-ROAD MANAGER Underlying Rhythm: CHB with no obvious [...] AM EDT Hospital Encounter Non-[place] [address] Arrived documented as of this encounter Procedures Procedure Name Priority Date/Time Associated Diagnosis Comments EKG 12-LEAD Routine 10/03/2022 11:00 AM EDT Cardiomyopathy, primary Presence of cardiac resynchronization therapy defibrillator (WHARF TENDER HELPER-D) Diaphragmatic stimulation by cardiac pacemaker, initial encounter documented in this encounter Results * EKG 12 Lead (10/03/2022 11:00 AM EDT) Ventricular rate 74 BPM MUSE SYSTEM Atrial Rate 74 BPM MUSE SYSTEM P-R Interval 154 ms MUSE SYSTEM QRS Duration 162 ms MUSE SYSTEM Q-T Interval 470 ms MUSE SYSTEM QTC Calculated (Bezet) 521 ms MUSE SYSTEM Calculated P [place] 30 degrees MUSE SYSTEM Calculated R [place] -98 degrees MUSE SYSTEM Calculated T [place] 41 degrees MUSE SYSTEM INTERPRETATION Atrial-sense d [...] cardiomyopathies Presence of cardiac resynchronization therapy defibrillator (WHARF TENDER HELPER-D) Diaphragmatic stimulation by cardiac pacemaker, initial encounter documented in this encounter Care Teams Photolithographer Relationship Specialty Start Date End Date Donny Cooper MD [address] [place] [address] PCP - General Family Medicine 02/25/19 documented as of this encounter
--- OUTSIDE RECORDS SUMMARY | 2023-12-29 08:13 | XMS_ITS | Encounter Summary ---
Author Organization [facility] [place] [address] Care Team Providers Care Line Lead Name Role Phone Donny Cooper MD Primary Care Provider [phone] Encounter Details Date Type Department Care Team (Latest Contact Info) Description 12/18/2020 11:57 AM EDT - 12/18/2020 11:59 PM EDT Hospital Encounter Non[place] [address] Maged Arguelles MD [facility] [place] [address] Cardiomyopathy, primary Discharge Disposition: Home Social History [...] AM EDT Hospital Encounter Non[place] [address] Arrived documented as of this encounter Procedures Procedure Name Priority Date/Time Associated Diagnosis Comments ICD INTERROGATION 3 MONTH Routine 12/18/2020 12:00 PM EDT Cardiomyopathy, primary documented in this encounter Results * ICD INTERROGATION 3 MONTH (12/18/2020 12:00 PM EDT) Anatomical Region Laterality Modality Other Narrative 12/23/2020 11:08 PM EDT MDT DRONE SOFTWARE DEVELOPMENT ENGINEER-D remote reviewed. Normal device function. Inadequate DRONE SOFTWARE DEVELOPMENT ENGINEER at 80%. Maged Arguelles MD [facility] Cardiac Electrophysiology 12/23/2020 11:06 PM Maged Arguelles MD IMPLANTABLE CARDIAC DEVICE documented in this encounter Visit Diagnoses Diagnosis Cardiomyopathy, primary Other primary cardiomyopathies documented in this encounter Care Teams Line Lead Relationship Specialty Start Date End Date Donny Cooper MD [address] [facility] [address] [place] [address] PCP - General Family Medicine 02/25/19 documented as of this encounter
--- OUTSIDE RECORDS SUMMARY | 2023-12-29 08:13 | XMS_ITS | Encounter Summary ---
Author Organization [facility] [place] [address] Care Team Providers Care Development Editor Name Role Phone Marques Martinez MD Primary Care Provider [phone] Encounter Details Date Type Department Care Team (Late st Contact Info) Description 05/01/2010 3:10 PM EST Office [place] [phone] Jairon Fenton MD [facility] [place] [address] Discharge Disposition: Home Social History Tobacco Use [...] EDT Hospital Encounter Non-Invasive [place] [address] Arrived documented as of this encounter Visit Diagnoses Not on filedocumented in this encounter Care Teams Development Editor Relationship Specialty Start Date End Date Marques Martinez MD [address] [place] [address] PCP - General 04/01/10 04/08/11 documented as of this encounter
--- OUTSIDE RECORDS SUMMARY | 2023-12-29 08:13 | XMS_ITS | Encounter Summary ---
Author Organization [facility] [place] [address] Care Team Providers Care Maintenance Welder Name Role Phone Marques Martinez MD Primary Care Provider [phone] Encounter Details Date Type Department Care Team (Late st Contact Info) Description 10/09/2010 11:35 AM EDT - 10/09/2010 11:59 PM EDT Hospital Encounter XRay at [address] [place] [phone] Social History Tobacco Use Types Packs/Day Years [...] AM EDT Hospital Encounter Non-Invasive Cardiology Lab [facility] [place] [address] Arrived documented as of this encounter Visit Diagnoses Not on filedocumented in this encounter Care Teams Maintenance Welder Relationship Specialty Start Date End Date Marques Martinez MD [address] [place] [address] PCP - General 04/01/10 04/08/11 documented as of this encounter
--- OUTSIDE RECORDS SUMMARY | 2023-12-29 08:13 | XMS_ITS | Encounter Summary ---
[facility] Organization [facility] [place] [address] Care Team Providers Care Recreation Therapy Director Name Role Phone Marques Martinez MD Primary Care Provider [phone] Encounter Details Date Type Department Care Team (Late st Contact Info) Description 09/11/2010 Orders [place] [address] Jairon Fenton MD [facility] [place] [address] Fracture of patella, left, closed (Primary Dx) [...] AM EDT Hospital Encounter [place] [address] Arrived documented as of this encounter Visit Diagnoses Diagnosis Fracture of patella, left, closed- Primary Closed fracture of patella documented in this encounter Care Teams Recreation Therapy Director Relationship Specialty Start Date End Date Marques Martinez MD [address] [place] [address] PCP - General 04/01/10 04/08/11 documented as of this encounter
--- OUTSIDE RECORDS SUMMARY | 2023-12-29 08:13 | XMS_ITS | Encounter Summary ---
[place] [address] Care Team Providers Care Oyster Grader Name Role Phone Donny Cooper MD Primary Care Provider [phone] Encounter Details Date Type Department Care Team (Latest Contact Info) Description 07/07/2022 10:00 AM EST - 07/07/2022 11:59 PM EST Hospital Encounter [place] [address] Discharge Disposition: Home Social History Tobacco Use [...] AM EDT Hospital Encounter [place] [address] Arrived documented as of this [...] on filedocumented in this encounter Care Teams Oyster Grader Relationship Specialty Start Date End Date Donny Cooper MD [address] [place] [address] PCP - General Family Medicine 02/25/19 documented as of this encounter
--- OUTSIDE RECORDS SUMMARY | 2023-12-29 08:13 | XMS_ITS | Encounter Summary ---
Author Organization [facility] [place] [address] Care Team Providers Care Brake Operator Heavy Duty Name Role Phone Donny Cooper MD Primary Care Provider [phone] Encounter Details Date Type Department Care Team (Late st Contact Info) Description 07/26/2019 Notes Only Cardiology at [address] [address] Maged Arguelles MD [facility] [place] [address] Social History Tobacco Use Types Packs/Day Years [...] his Medtronic biventricular ICD is reviewed. Suboptimal STEAM PLANT RECORDS CLERK at 84%. Normal device function. Awaiting Holter to assess PVC burden. Maged Arguelles MD [facility] Cardiac Electrophysiology 07/26/2019 9:04 AM documented in this encounter Plan of Treatment Upcoming Encounters Date Type Department Care Team (Late st Contact Info) Description 02/02/2024 10:00 AM EDT Hospital Encounter Non-Invasive [place] [address] Arrived documented as of this encounter Visit Diagnoses Not on filedocumented in this encounter Care Teams Brake Operator Heavy Duty Relationship Specialty Start Date End Date Donny Cooper MD [address] [place] [address] PCP - General Family Medicine 02/25/19 documented as of this encounter
--- OUTSIDE RECORDS SUMMARY | 2023-12-29 08:13 | XMS_ITS | Encounter Summary ---
[place] [address] Care Team Providers Care Mother Tester Name Role Phone Marques Martinez MD Primary Care Provider [phone] Encounter Details Date Type Department Care Team (Late st Contact Info) Description 10/03/2010 [place] [address] Marina Orosco, JADON Social History Tobacco Use [...] AM EDT Hospital Encounter Non-[place] [address] Arrived documented as of this encounter Visit Diagnoses Not on filedocumented in this encounter Care Teams Mother Tester Relationship Specialty Start Date End Date Marques Martinez MD [address] [place] [address] PCP - General 04/01/10 04/08/11 documented as of this encounter
--- OUTSIDE RECORDS SUMMARY | 2023-12-29 08:13 | XMS_ITS | Encounter Summary ---
Author Organization [facility] [place] [address] Care Team Providers Care Pulmonology Technician Name Role Phone Clem Olvera MD Primary Care Provider [phone] Reason for Visit * Reason Comments Follow Up Fracture SP PATELLA FX DO12/12 DOI 03/30/10 Encounter Details Date Type Department Care Team (Late st Contact Info) Description 04/09/2011 1:30 PM EST Office [place] [address] Jairon Gustafson MD [facility] [address] Jose Francisco Bee PA [facility] [place] [address] Patella fracture (Primary Dx) Discharge Disposition: Home [...] I saw this patient in conjunction with LAGN Liao, today. Please see his note for [...] AM EDT Hospital Encounter [place] [address] Arrived documented as of this encounter Visit Diagnoses Diagnosis Patella fracture- Primary Closed fracture of patella documented in this encounter Care Teams Pulmonology Technician Relationship Specialty Start Date End Date Clem Olvera MD [address] [place] [address] PCP - General 04/09/11 02/24/19 documented as of this encounter
--- OUTSIDE RECORDS SUMMARY | 2023-12-29 08:13 | XMS_ITS | Encounter Summary ---
Author Organization [facility] [place] [address] Care Team Providers Care Test Kitchen Home Economist Name Role Phone Marques Martinez MD Primary Care Provider [phone] Encounter Details Date Type Department Care Team (Late st Contact Info) Description 03/30/2010 [place] [address] Javier Barajas MD [facility] [place] [address] Social History Tobacco Use Types Packs/Day Years [...] AM EDT Hospital Encounter Non-Invasive [place] [address] Arrived documented as of this encounter Procedures [...] AM EST Jairon Fenton MD CHEMISTRY ORDERABLES [facility] * (ABNORMAL) CREATININE, SERUM (04/01/2010 6:09 [...] Fenton MD CHEMISTRY ORDERABLES Performing Organization Address [facility] de Phone Number CERNER CHRIST[facility] * BUN (04/01/2010 6:09 AM EST) Blood Urea Nitrogen 12 10 - 20 mg/dL [facility] Blood specimen (specimen) 04/01/2010 6:09 AM EST 04/01/2010 6:09 AM EST Jairon Fenton MD CHEMISTRY ORDERABLES Performing Organization Address [facility] de Phone Number CERNER MILLENNIUM * [...] MD HEMATOLOGY ORDERABLE S Performing Organization Address [facility] de Phone Number CERNER MILLENNIUM * [...] Fenton MD CHEMISTRY ORDERABLES Performing Organization Address [facility] Phone Number CERIVSI MILLENNIUM * ELECTROLYTE PANEL (03/30/2010 6:05 PM [...] Fenton MD CHEMISTRY ORDERABLES Performing Organization Address [facility] Co de Phone Number CERIVIS MILLENNIUM * CREATININE, SERUM (03/30/2010 6:05 PM EST) Creatinine 0.87 0.80 - 1.50 mg/dL [facility] Est Glomerular Filtration Rate >60 >=60 [facility] Comment: The National Kidney Disease Education [...] Urea Nitrogen 18 10 - 20 mg/dL [facility] Blood specimen (specimen) 03/30/2010 6:05 PM EST 03/30/2010 6:13 PM EST Jairon Fenton MD CHEMISTRY ORDERABLES Performing Organization Address [facility] de Phone Number DEJA SEGOVIA * APTT (03/30/2010 6:05 PM EST) Partial Thromboplastin Time 26 25 - 37 sec [facility] Comment: Recommended therapeutic PTT range for full dose unfractionated heparin is 80-114 seconds. Blood specimen (specimen) 03/30/2010 6:05 PM EST 03/30/2010 6:14 PM EST Jairon Fenton MD HEMATOLOGY ORDERABLE S Performing Organization Address [facility] Phone Number DEJA SEGOVIA * PROTIME-INR (03/30/2010 6:05 PM EST) Prothrombin Time 14.2 12.3 - 14.7 sec [facility] Comment: [facility] Transfusion Committee Guidelines: INR less than 2.0, PTT less than OR equal to 43.5 seconds, or Fibrinogen greater than or equal to 100 mg/dl indicate adequate procoagulant activity for hemostasis in patients without underlying bleeding disorders. International Normalization Ratio 1.1 0.9 - 1.1 [facility] Blood specimen (specimen) 03/30/2010 6:05 PM EST 03/30/2010 6:14 PM EST Jairon Fenton MD HEMATOLOGY ORDERABLE S Performing Organization Address [facility] de Phone Number DEJA SEGOVIA * [...] Jairon Fenton MD HEMATOLOGY ORDERABLE S [facility] * (ABNORMAL) CBC (03/30/2010 6:05 PM EST) [...] Standard Deviation 44.2 35.0 - 46.0 fL [facility] RDW coefficient of variation 13.1 10.9 - 14.4 % [facility] Mean Platelet Volume 10.6 9.0 - 12.0 fL [facility] Blood specimen (specimen) 03/30/2010 6:05 PM EST 03/30/2010 6:13 PM EST Jairon Fenton MD HEMATOLOGY ORDERABLE S Performing Organization Address [facility] Co de Phone Number [facility] * REFLEX LAB-ANTIBODY SCREEN (03/30/2010 3:17 PM EST) [facility] Ab Screen Interp Negative [facility] Expires at [id number] on: [id number] [facility] Blood specimen (specimen) 03/30/2010 3:17 PM EST 03/30/2010 3:17 PM EST Javier Barajas MD BLOOD BANK LAB ORDER PRECIOUS Performing Organization Address [facility] Co de Phone Number [facility] * REFLEX LAB-ABO/RH (03/30/2010 3:17 PM EST) [facility] ABORH Type A Pos [facility] Blood specimen (specimen) 03/30/2010 3:17 PM EST 03/30/2010 3:17 PM EST Javier Barajas MD BLOOD BANK LAB ORDER PRECIOUS Performing Organization Address [facility] Co de Phone Number [facility] * ELECTROLYTE PANEL (03/30/2010 2:50 PM EST) [facility] Sodium 135 135 - 145 mmol/L [facility] Potassium 4.3 3.5 - 5.0 mmol/L [facility] Comment: Please note: ??Patients with WBC [...] PM EST Javier Barajas MD CHEMISTRY ORDERABLES [facility] * CREATININE, SERUM (03/30/2010 2:50 PM [...] Barajas MD CHEMISTRY ORDERABLES Performing Organization Address [facility] Phone Number [facility] * BUN (03/30/2010 2:50 PM EST) Blood Urea Nitrogen 18 10 - 20 mg/dL [facility] Blood specimen (specimen) 03/30/2010 2:50 PM EST 03/30/2010 3:05 PM EST Javier Barajas MD CHEMISTRY ORDERABLES Performing Organization Address [facility] Phone Number [facility] * GLUCOSE, RANDOM (03/30/2010 2:50 PM EST) Glucose 95 <=199 mg/dL [facility] Comment:Diabetes: >=200 mg/d L plus symptoms Blood specimen (specimen) 03/30/2010 2:50 PM EST 03/30/2010 3:05 PM EST Javier Barjaas MD CHEMISTRY ORDERABLES Performing Organization Address [facility] Phone Number [facility] * APTT (03/30/2010 2:50 PM EST) Partial Thromboplastin Time 25 25 - 37 sec [facility] Comment: Recommended therapeutic PTT range for full dose unfractionated heparin is 80-114 seconds. Blood specimen (specimen) 03/30/2010 2:50 PM EST 03/30/2010 3:06 PM EST Javier Barajas MD HEMATOLOGY ORDERABLE S Performing Organization Address [facility] Phone Number [facility] * PROTIME-INR (03/30/2010 2:50 PM EST) Prothrombin Time 14.1 12.3 - 14.7 sec [facility] Comment: [facility] Transfusion Committee Guidelines: INR less [...] on filedocumented in this encounter Care Teams Test Kitchen Home Economist Relationship Specialty Start Date End Date Marques Martinez MD [address] [place] [address] PCP - General 04/01/10 04/08/11 documented as of this encounter
--- OUTSIDE RECORDS SUMMARY | 2023-12-29 08:13 | XMS_ITS | Encounter Summary ---
[place] [address] Care Team Providers Care Regroover Name Role Phone Donny Cooper MD Primary Care Provider [phone] Encounter Details Date Type Department Care Team (Latest Contact Info) Description 04/08/2022 10:00 AM EST - 04/08/2022 11:59 PM [facility] Hospital Encounter [place] [address] Discharge Disposition: Home Social History Tobacco Use [...] AM EDT Hospital Encounter Non-[place] [address] Arrived documented as of this [...] on filedocumented in this encounter Care Teams Regroover Relationship Specialty Start Date End Date Donny Cooper MD [address] [place] [address] PCP - General Family Medicine 02/25/19 documented as of this encounter
--- OUTSIDE RECORDS SUMMARY | 2023-12-29 08:13 | XMS_ITS | Encounter Summary ---
[place] [address] Care Team Providers Care Sewing Supervisor Name Role Phone Marques Martinez MD Primary Care Provider [phone] Encounter Details Date Type Department Care Team (Late st Contact Info) Description 06/12/2010 2:00 PM EST Procedure visit [place] [address] Social History Tobacco Use Types Packs/Day Years [...] Hospital Encounter Non[place] [address] Arrived documented as of this encounter Visit Diagnoses Not on filedocumented in this encounter Care Teams Sewing Supervisor Relationship Specialty Start Date End Date Marques Martinez MD [address] [place] [address] PCP - General 04/01/10 04/08/11 documented as of this encounter
--- OUTSIDE RECORDS SUMMARY | 2023-12-29 08:13 | XMS_ITS | Encounter Summary ---
[place] [address] Care Team Providers Care Model Builder Name Role Phone Donny Cooper MD Primary Care Provider [phone] Encounter Details Date Type Department Care Team (Late st Contact Info) Description 06/14/2020 Telephone Cardiology at [address] [address] Nhung Briggs Social History Tobacco Use Types [...] He would like to be seen at [facility]. Email sent to Brittaney Hernandez at [facility] asking her to reach out to pt to set up the appt with either Dr. Arguelles or LANG Albert. Nhung Allen Electrophysiology Scheduling [id number] option 2 documented in this encounter Plan of Treatment Upcoming Encounters Date Type Department Care Team (Late st Contact Info) Description 02/02/2024 10:00 AM EDT Hospital Encounter Non-[place] [address] Arrived documented as of this encounter Visit Diagnoses Not on filedocumented in this encounter Care Teams Model Builder Relationship Specialty Start Date End Date Donny Cooper MD [address] [place] [address] PCP - General Family Medicine 02/25/19 documented as of this encounter
--- OUTSIDE RECORDS SUMMARY | 2023-12-29 08:13 | XMS_ITS | Encounter Summary ---
Author Organization [facility] [place] [address] Care Team Providers Care Locomotive Lubricating Systems Clerk Name Role Phone Marques Martinez MD Primary Care Provider [phone] Encounter Details Date Type Department Care Team (Late st Contact Info) Description 06/12/2010 2:10 PM EST Office [place] [address] Jairon Fenton MD [facility] [place] [address] Discharge Disposition: Home Social History Tobacco Use [...] AM EDT Hospital Encounter Non[place] [address] Arrived documented as of this encounter Visit Diagnoses Not on filedocumented in this encounter Care Teams Locomotive Lubricating Systems Clerk Relationship Specialty Start Date End Date Marques Martinez MD [address] [place] [address] PCP - General 04/01/10 04/08/11 documented as of this encounter
--- OUTSIDE RECORDS SUMMARY | 2023-12-29 08:13 | XMS_ITS | Encounter Summary ---
[place] [address] Care Team Providers Care Driver Lifter Of Sanitation Truck Name Role Phone Donny Cooper MD Primary Care Provider [phone] Encounter Details Date Type Department Care Team (Late st Contact Info) Description 03/17/2019 Telephone Cardiology at [address] [address] Sheri Quinn LNA Social History [...] 11:46 AM EST Medication list reviewed with [facility] list. Please review with patient at next clinic visit. documented in this encounter Plan of Treatment Upcoming Encounters Date Type Department Care Team (Late st Contact Info) Description 02/02/2024 10:00 AM EDT Hospital Encounter [place] [address] Arrived documented as of this encounter Visit Diagnoses Not on filedocumented in this encounter Care Teams Driver Lifter Of Sanitation Truck Relationship Specialty Start Date End Date Donny Cooper MD [address] [place] [address] PCP - General Family Medicine 02/25/19 documented as of this encounter
--- OUTSIDE RECORDS SUMMARY | 2023-12-29 08:13 | XMS_ITS | Encounter Summary ---
[place] [address] Care Team Providers Care Gas Desulfurizer Name Role Phone Donny Cooper MD Primary Care Provider [phone] Encounter Details Date Type Department Care Team (Latest Contact Info) Description 01/03/2023 10:00 AM EDT - 01/03/2023 11:59 PM EDT Hospital Encounter [place] [address] Discharge Disposition: Home Social History Tobacco Use [...] AM EDT Hospital Encounter Non[place] [address] Arrived documented as of this encounter Procedures [...] filedocumented in this encounter Care Teams Gas Desulfurizer Relationship Specialty Start Date End Date Donny Cooper MD [address] [place] [address] PCP - General Family Medicine 02/25/19 documented as of this encounter
--- OUTSIDE RECORDS SUMMARY | 2023-12-29 08:13 | XMS_ITS | Encounter Summary ---
[place] [address] Care Team Providers Care Mobility Architect Manager Name Role Phone Donny Cooper MD Primary Care Provider [phone] Encounter Details Date Type Department Care Team (Latest Contact Info) Description 04/03/2023 10:00 AM EST - 04/03/2023 11:59 PM [facility] Hospital Encounter [place] [address] Discharge Disposition: Home Social History Tobacco Use [...] AM EDT Hospital Encounter Non[place] [address] Arrived documented as of this [...] on filedocumented in this encounter Care Teams Mobility Architect Manager Relationship Specialty Start Date End Date Donny Cooper MD [address] [place] [address] PCP - General Family Medicine 02/25/19 documented as of this encounter
--- OUTSIDE RECORDS SUMMARY | 2023-12-29 08:13 | XMS_ITS | Encounter Summary ---
[place] [address] Care Team Providers Care Blow Pit Helper Name Role Phone Donny Cooper MD Primary Care Provider [phone] Encounter Details Date Type Department Care Team [...] AM EDT Hospital Encounter Non-Invasive [place] [address] Arrived documented as of this encounter Visit Diagnoses Not on filedocumented in this encounter Care Teams Blow Pit Helper Relationship Specialty Start Date End Date Donny Cooper MD [address] [place] [address] PCP - General Family Medicine 02/25/19 documented as of this encounter
--- OUTSIDE RECORDS SUMMARY | 2023-12-29 08:13 | XMS_ITS | Encounter Summary ---
[place] [address] Care Team Providers Care Template Clerk Name Role Phone Marques Martinez MD Primary Care Provider [phone] Encounter Details Date Type Department Care Team (Late st Contact Info) Description 05/01/2010 2:40 PM EST Procedure [place] [address] Social History Tobacco Use Types Packs/Day Years [...] AM EDT Hospital Encounter Non[place] [address] Arrived documented as of this encounter Visit Diagnoses Not on filedocumented in this encounter Care Teams Template Clerk Relationship Specialty Start Date End Date Marques Martinez MD [address] [place] [address] PCP - General 04/01/10 04/08/11 documented as of this encounter
--- OUTSIDE RECORDS SUMMARY | 2023-12-29 08:13 | XMS_ITS | Encounter Summary ---
Author Organization [facility] [place] [address] Care Team Providers Care Manager Mall Name Role Phone Donny Cooper MD Primary Care Provider [phone] Encounter Details Date Type Department Care Team (Latest Contact Info) Description 06/25/2021 3:23 PM EST - 06/25/2021 11:59 PM EST Hospital Encounter [place] [address] Alber Seals MD [facility] [address] Cardiomyopathy, primary Discharge Disposition: Home Social History [...] AM EDT Hospital Encounter [place] [address] Arrived documented as of this encounter Procedures Procedure Name Priority Date/Time Associated Diagnosis Comments ICD INTERROGATION 3 MONTH Routine 06/25/2021 3:24 PM EST Cardiomyopathy, primary documented in this encounter Results * ICD INTERROGATION 3 MONTH (06/25/2021 3:24 PM EST) Anatomical Region Laterality Modality Other Narrative 06/25/2021 3:42 PM EST Cardiac Device Remote Monitoring Report Summary Medtronic Carelink Device: SERVICE LIAISON REPRESENTATIVE-D Model: VIVA QUAD Battery: 2.95 v, estimated longevity 2 years 6 months Pacing percentage: 90% SERVICE LIAISON REPRESENTATIVE paced Events: Presenting rhythm: atrial paced/biventricular paced Frequent PVC's Impression Normal device function Follow Up As per schedule - in-clinic and remote ALBER SEALS MD 06/25/21 Alber Seals MD IMPLANTABLE CARDIAC DEVICE documented in this encounter Visit Diagnoses Diagnosis Cardiomyopathy, primary Other primary cardiomyopathies documented in this encounter Care Teams Manager Mall Relationship Specialty Start Date End Date Donny Cooper MD [address] [place] [address] PCP - General Family Medicine 02/25/19 documented as of this encounter
--- OUTSIDE RECORDS SUMMARY | 2023-12-29 08:13 | XMS_ITS | Encounter Summary ---
Author Organization [facility] [place] [address] Care Team Providers Care Research Engineer Marine Equipment Name Role Phone Marques Martinez MD Primary Care Provider [phone] Reason for Visit * Reason Comments Follow Up Fracture PATELLA FX DOI 03/23 10 Encounter Details Date Type Department Care Team (Late st Contact Info) Description 10/09/2010 12:40 PM EDT Office [place] [address] Jairon Gustafson MD [facility] [place] [address] Jose Francisco Bee PA [facility] [place] [address] Quadriceps tendon rupture (Primary Dx) Discharge Disposition: [...] AM EDT Hospital Encounter Non-[place] [address] Arrived documented as of this encounter Visit Diagnoses Diagnosis Quadriceps tendon rupture- Primary Sprain and strain of other specified sites of knee and leg documented in this encounter Care Teams Research Engineer Marine Equipment Relationship Specialty Start Date End Date Marques Martinez MD [address] [place] [address] PCP - General 04/01/10 04/08/11 documented as of this encounter
--- OUTSIDE RECORDS SUMMARY | 2023-12-29 08:13 | XMS_ITS | Encounter Summary ---
[place] [address] Care Team Providers Care Special Client Bus Driver Name Role Phone Donny Cooper MD Primary Care Provider [phone] Encounter Details Date Type Department Care Team (Latest Contact Info) Description 10/05/2022 10:00 AM EDT - 10/05/2022 11:59 PM EDT Hospital Encounter [place] [address] Discharge Disposition: Home Social History Tobacco Use [...] AM EDT Hospital Encounter Non-[place] [address] Arrived documented as of this encounter Procedures [...] filedocumented in this encounter Care Teams Special Client Bus Driver Relationship Specialty Start Date End Date Donny Cooper MD [address] [place] [address] PCP - General Family Medicine 02/25/19 documented as of this encounter
--- OUTSIDE RECORDS SUMMARY | 2023-12-29 08:13 | XMS_ITS | Encounter Summary ---
Author Organization Formerly [facility] [place] [address] Care Team Providers Care Impregnator Carbon Products Name Role Phone Donny Cooper MD Primary Care Provider [phone] Encounter Details Date Type Department Care Team (Latest Contact Info) Description 06/13/2020 12:35 PM EST - 06/13/2020 11:59 PM EST Hospital Encounter Non-[place]vasive [place] [address] Alber Seals MD [facility] [place] [address] Cardiomyopathy, primary Discharge Disposition: Home Social History [...] AM EDT Hospital Encounter Non-[place]vasive [place] [address] Arrived documented as of this encounter Procedures Procedure Name Priority Date/Time Associated Diagnosis Comments ICD INTERROGATION 3 MONTH Routine 06/13/2020 12:36 PM EST Cardiomyopathy, primary documented in this encounter Results * ICD INTERROGATION 3 MONTH (06/13/2020 12:36 PM EST) Anatomical Region Laterality Modality Other Narrative 06/14/2020 10:38 AM EST Cardiac Device Remote Monitoring Report Summary Medtronic Adbrain 06/14/20 Device: LOAN ORIGINATOR-D Model: VIVA QUAD Battery: 2.96 v, estimated longevity 3 years, 11 months Pacing percentage: 78% ventricular paced Events: The presenting rhythm is atrial paced with biventricular pacing and frequent ventricular premature contractions No significant arrhythmias Impression Normal device function; suboptimal LOAN ORIGINATOR pacing likely secondary to frequent PVCs. Should consider in clinic follow-up for further evaluation Follow Up As per schedule - in-clinic and remote ALBER SEALS MD Alber Seals MD IMPLANTABLE CARDIAC DEVICE documented in this encounter Visit Diagnoses Diagnosis Cardiomyopathy, primary Other primary cardiomyopathies documented in this encounter Care Teams Impregnator Carbon Products Relationship Specialty Start Date End Date Donny Cooper MD [address] [place] [address] PCP - General Family Medicine 02/25/19 documented as of this encounter
[2023-12-31 08:08] VITALS: BP 123/63; PULSE 70
== END 2024-01-02 23:59 | disposition home or self-care (01) ==
LOC: CR 08:18
PROVIDERS: PCP Family Medicine; Visit Provider Internal Medicine Cardiovascular Disease
DX: R69 Illness, unspecified (principal)

== ENCOUNTER 2024-01-28 08:09 | Outpatient (RCR) | payer SELFPAY ==
[2024-01-03 00:06] VITALS: BP 121/62; PULSE 71
--- OUTSIDE RECORDS SUMMARY | 2024-01-05 08:13 | XMS_ITS | Encounter Summary ---
[place] [address] Care Team Providers Care Dollyman Name Role Phone Donny Cooper MD Primary Care Provider [phone] Encounter Details Date Type Department Care Team (Latest Contact Info) Description 11/04/2023 10:00 AM EDT - 11/04/2023 11:59 PM EDT Hospital Encounter [place] [address] Discharge Disposition: Home Social History Tobacco Use [...] AM EDT Hospital Encounter Non[place] [address] Arrived documented as of this encounter Procedures [...] on filedocumented in this encounter Care Teams Dollyman Relationship Specialty Start Date End Date Donny Cooper MD [address] [place] [address] PCP - General Family Medicine 02/25/19 documented as of this encounter
--- OUTSIDE RECORDS SUMMARY | 2024-01-05 08:13 | XMS_ITS | Clinical Summary ---
Author Organization [facility] [place] [address] Care Team Providers Care Liquor Tester Name Role Phone Donny Cooper MD Primary Care Provider [phone] Allergies No known active allergies Medications Medication [...] Team Description 12/28/2023 Notes Only Cardiology at [address] [phone] Kanika Shell 11/04/2023 10:00 AM EDT - 11/04/2023 11:59 PM EDT Hospital Encounter [place] [address] Discharge Disposition: Home from Last 3 Months [...] AM EDT Hospital Encounter [place] [address] Arrived Health Maintenance Due Date Last Done Comments Tdap adult 08/19/1959 Tetanus vaccine 08/19/1959 Zoster vaccine (1 of 2) 1990 Advance Directive 08/19/1995 Pneumoccocal Vaccine: 65+ (2 of 2 - PCV) 05/04/2009 05/04/2008 Covid-19 Vaccine (1 - 2022- season) 2023 Influenza (Flu) vaccine (1 o f 1 - Influenza standard series) 01/03/2024 02/01/2010, 03/06/2006, 02/24/2005 Medical Devices Implanted Type Area Senior Formulation Scientist Device Identifier Shelf Expiration Date Model / Serial / Lot Mdt : [id number] : [id number] Implanted: (Quantity not on file) Cardiac Resynchronization Therapy - Defibrillator Chest Medtronic - [id number] / [id number] / Care Teams Liquor Tester Relationship Specialty Start Date End Date Donny Cooper MD [address] [place], [place] [id number] PCP - General Family Medicine 02/25/19
--- OUTSIDE RECORDS SUMMARY | 2024-01-05 08:13 | XMS_ITS | Encounter Summary ---
[place] [address] Care Team Providers Care Auto Glass Technician Name Role Phone Donny Cooper MD Primary Care Provider [phone] Encounter Details Date Type Department Care Team (Latest Contact Info) Description 04/08/2022 10:00 AM EST - 04/08/2022 11:59 PM [facility] Hospital Encounter Non-[place] [address] Discharge Disposition: Home Social History Tobacco Use [...] AM EDT Hospital Encounter Non-[place] [address] Arrived documented as of this [...] filedocumented in this encounter Care Teams Auto Glass Technician Relationship Specialty Start Date End Date Donny Cooper MD [address] [place] [address] PCP - General Family Medicine 02/25/19 documented as of this encounter
--- OUTSIDE RECORDS SUMMARY | 2024-01-05 08:13 | XMS_ITS | Encounter Summary ---
Author Organization [facility] Address [address] [place] [address] Care Team Providers Care Contract Management Specialist Name Role Phone Unknown, Provider Primary Care Provider [phone] Clem Olvera MD Primary Care Provider [phone] Encounter Details Date Type Department Care Team (Late st Contact Info) Description 11/29/2015 Pre-Procedure Orders Encounter [facility] [address], [place] [id number] Navdeep Hurd MD [address] [place] [address] [address] Social History Tobacco Use Types [...] Patient: Nabil Streeter. Attending: Dr. Moran Scrrajinder Director Of Laboratory Operations: Dr. Fantasma Dhillon History/indication: The patient is [...] Patient: Nabil Streeter Attending: Dr. Dean Bailey Director Of Laboratory Operations: Dr. Fantasma Dhillon History/indication: The patient is [...] on filedocumented in this encounter Care Teams Contract Management Specialist Relationship Specialty Start Date End Date Unknown, Provider, PCP - General 12/06/12 12/17/15 Clem Olvera MD [address] [place] [address] PCP - General 12/18/15 documented as of this encounter
--- OUTSIDE RECORDS SUMMARY | 2024-01-05 08:13 | XMS_ITS | Encounter Summary ---
[place] [address] Care Team Providers Care Communications Project Lead Name Role Phone Donny Cooper MD Primary Care Provider [phone] Encounter Details Date Type Department Care Team (Latest Contact Info) Description 08/06/2023 10:00 AM EDT - 08/06/2023 11:59 PM EDT Hospital Encounter Non-Invasive [place] [address] Discharge Disposition: Home Social History Tobacco Use [...] AM EDT Hospital Encounter Non-Invasive [place] [address] Arrived documented as of this encounter Visit Diagnoses Not on filedocumented in this encounter Care Teams Communications Project Lead Relationship Specialty Start Date End Date Donny Cooper MD [address] [place] [address] PCP - General Family Medicine 02/25/19 documented as of this encounter
--- OUTSIDE RECORDS SUMMARY | 2024-01-05 08:13 | XMS_ITS | Encounter Summary ---
Author Organization [facility] Address [address] [place] [address] Care Team Providers Care Admitted Attorneys Name Role Phone Clem Olvera MD Primary Care Provider [phone] Reason for Visit * Reason Onset Date Comments Other 04/04/2019 Transfer request for Pacer Care at [facility] Encounter Details Date Type Department Care Team (Late st Contact Info) Description 04/04/2019 Telephone [facility] [address] [place] [address] Giselle Hill, STRAW HAT BRIM RAISER OPERATOR Other (Transfer request for Pacer Care [...] 04/04/2019 1503 EST I went into the [employer] Website and [facility] [...] Attorneys Relationship Specialty Start Date End Date Clem Olvera MD [address] [place] [address] PCP - General 12/18/15 documented as of this encounter
--- OUTSIDE RECORDS SUMMARY | 2024-01-05 08:13 | XMS_ITS | Encounter Summary ---
[place] [address] Care Team Providers Care Videotape Editor Name Role Phone Donny Cooper MD Primary Care Provider [phone] Encounter Details Date Type Department Care Team (Latest Contact Info) Description 07/07/2022 10:00 AM EST - 07/07/2022 11:59 PM EST Hospital Encounter [place] [address] Discharge Disposition: Home Social History Tobacco Use [...] AM EDT Hospital Encounter [place] [address] Arrived documented as of this [...] on filedocumented in this encounter Care Teams Videotape Editor Relationship Specialty Start Date End Date Donny Cooper MD [address] [place] [address] PCP - General Family Medicine 02/25/19 documented as of this encounter
--- OUTSIDE RECORDS SUMMARY | 2024-01-05 08:13 | XMS_ITS | Encounter Summary ---
[place] [address] Care Team Providers Care Electric Sign Assembler Name Role Phone Donny Cooper MD Primary Care Provider [phone] Encounter Details Date Type Department Care Team (Latest Contact Info) Description 10/05/2022 10:00 AM EDT - 10/05/2022 11:59 PM EDT Hospital Encounter Non-Invasive [place] [address] Discharge Disposition: Home Social History Tobacco Use [...] EDT Hospital Encounter Non-Invasive [place] [address] Arrived documented as of this encounter Procedures [...] on filedocumented in this encounter Care Teams Electric Sign Assembler Relationship Specialty Start Date End Date Donny Cooper MD [address] [place] [address] PCP - General Family Medicine 02/25/19 documented as of this encounter
--- OUTSIDE RECORDS SUMMARY | 2024-01-05 08:13 | XMS_ITS | Encounter Summary ---
Author Organization [facility] Address [address] [place] [address] Care Team Providers Care Network Planner Name Role Phone Unavailable Primary Care Provider Unavailabl e Encounter Details Date Type Department Care Team (Late st Contact Info) Description 05/06/2001 Results Only [facility] - [facility] [address] [place] [address] Hernandez Partida MD [address] [place] [address] Social History Tobacco Use Types Packs/Day Years [...] is submitted entirely in cassette (B). ??(Naty Caal)/[facility] End of Report [facility] 05/06/2001 05/07/2001 9:2 5 EST Hernandez Partida MD PATHOLOGY ORDERABLES [facility] [address] [place] [address] documented in this encounter Visit Diagnoses Not on filedocumented in this encounter
--- OUTSIDE RECORDS SUMMARY | 2024-01-05 08:13 | XMS_ITS | Encounter Summary ---
[place] [address] Care Team Providers Care Pneumatic Riveter Name Role Phone Donny Cooper MD Primary Care Provider [phone] Encounter Details Date Type Department Care Team [...] EDT Hospital Encounter Non-Invasive [place] [address] Arrived documented as of this encounter Visit Diagnoses Not on filedocumented in this encounter Care Teams Pneumatic Riveter Relationship Specialty Start Date End Date Donny Cooper MD [address] [place] [address] PCP - General Family Medicine 02/25/19 documented as of this encounter
--- OUTSIDE RECORDS SUMMARY | 2024-01-05 08:13 | XMS_ITS | Encounter Summary ---
Author Organization [facility] Address [address] [place] [address] Care Team Providers Care Press Reader Name Role Phone Unavailable Primary Care Provider Unavailabl e Encounter Details Date Type Department Care Team (Late st Contact Info) Description 12/02/2012 Results Only [facility] Laboratory Services - [facility] [address] [place] [id number] Satinder Edwards MD [address] [place] [address] Social History Tobacco Use Types Packs/Day Years [...] ? NABIL IGLESIAS ? Accession #: ? [id number] ? : ? 1940 (Age: 72) ??M [...] MD PATHOLOGY ORDERABLE S Performing Organization Address City/State/[facility] Co de Phone Number [facility] [address] [place] [address] documented in this encounter Visit Diagnoses Not on filedocumented in this encounter
--- OUTSIDE RECORDS SUMMARY | 2024-01-05 08:13 | XMS_ITS | Encounter Summary ---
Author Organization [facility] Address [address] [place] [address] Care Team Providers Care Law Firm Receptionist Name Role Phone Clem Olvera MD Primary Care Provider [phone] Encounter Details Date Type Department Care Team (Late st Contact Info) Description 03/16/2019 Abstract [facility] [address] [place] [address] Ronal Avelar, JADON AV block, 2nd degree [...] [facility] [place] [facility] Device Visit Trolley Worker: buildabrandtronic Device Type: CENTERLESS GRINDER SET UP OPERATOR-D Service: Remote ? 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
--- OUTSIDE RECORDS SUMMARY | 2024-01-05 08:13 | XMS_ITS | Encounter Summary ---
[place] [address] Care Team Providers Care Senior Physical Therapist Name Role Phone Donny Cooper MD Primary Care Provider [phone] Encounter Details Date Type Department Care Team (Latest Contact Info) Description 01/03/2023 10:00 AM EDT - 01/03/2023 11:59 PM EDT Hospital Encounter [place] [address] Discharge Disposition: Home Social History Tobacco Use [...] Hospital Encounter Non-[place] [address] Arrived documented as of this encounter Procedures [...] filedocumented in this encounter Care Teams Senior Physical Therapist Relationship Specialty Start Date End Date Donny Cooper MD [address] [place] [address] PCP - General Family Medicine 02/25/19 documented as of this encounter
--- OUTSIDE RECORDS SUMMARY | 2024-01-05 08:13 | XMS_ITS | Clinical Summary ---
Author Organization [facility] Address [address] [place] [address] Care Team Providers Care Cut In Station Operator Name Role Phone Clem Olvera MD Primary Care Provider [phone] Allergies No known active allergies Medications Medication [...] 05/04/2002 - 05/03/20032013 second pacemaker [facility] Medical History Medical History Date Comments [...] Advance Directives For more information, please contact: [phone] * Full Code (Latest Code Status on File) Date Activated Date Inactivated Comments 02/27/2016 8:49 02/28/2016 15:40 Question Answer Comments Reason for decision includes: Full code consistent with overall plan of care Who participated in the discussion? Not Discusse d Care Teams Cut In Station Operator Relationship Specialty Start Date End Date Clem Olvera MD [address] [place] [address] PCP - General 12/18/15
--- OUTSIDE RECORDS SUMMARY | 2024-01-05 08:13 | XMS_ITS | Encounter Summary ---
[place] [address] Care Team Providers Care Sexual Assault Counselor Name Role Phone Donny Cooper MD Primary Care Provider [phone] [phone] Encounter Details Date Type Department Care Team (Latest Contact Info) Description 07/02/2023 10:00 AM EST - 07/02/2023 11:59 PM EST Hospital Encounter [place] [address] Discharge Disposition: Home Social History Tobacco Use [...] AM EDT Hospital Encounter Non-[place] [address] Arrived documented as of this encounter Visit Diagnoses Not on filedocumented in this encounter Care Teams Sexual Assault Counselor Relationship Specialty Start Date End Date Donny Cooper MD [address] [place] [address] PCP - General Family Medicine 02/25/19 documented as of this encounter
--- OUTSIDE RECORDS SUMMARY | 2024-01-05 08:13 | XMS_ITS | Encounter Summary ---
Author Organization [facility] [place] [address] Care Team Providers Care Pelt Dropper Name Role Phone Donny Cooper MD Primary Care Provider [phone] Encounter Details Date Type Department Care Team (Latest Contact Info) Description 06/25/2021 3:23 PM EST - 06/25/2021 11:59 PM EST Hospital Encounter [place] [address] Alber Seals MD [facility] [place] [address] Cardiomyopathy, primary Discharge Disposition: Home Social History [...] AM EDT Hospital Encounter [place] [address] Arrived documented as of this encounter Procedures Procedure Name Priority Date/Time Associated Diagnosis Comments ICD INTERROGATION 3 MONTH Routine 06/25/2021 3:24 PM EST Cardiomyopathy, primary documented in this encounter Results * ICD INTERROGATION 3 MONTH (06/25/2021 3:24 PM EST) Anatomical Region Laterality Modality Other Narrative 06/25/2021 3:42 PM EST Cardiac Device Remote Monitoring Report Summary Medtronic Carelink Device: SUPERVISOR COOLER SERVICE-D Model: VIVA QUAD Battery: 2.95 v, estimated longevity 2 years 6 months Pacing percentage: 90% SUPERVISOR COOLER SERVICE paced Events: Presenting rhythm: atrial paced/biventricular paced Frequent PVC's Impression Normal device function Follow Up As per schedule - in-clinic and remote ALBER SEALS MD 06/25/21 Alber Seals MD IMPLANTABLE CARDIAC DEVICE documented in this encounter Visit Diagnoses Diagnosis Cardiomyopathy, primary Other primary cardiomyopathies documented in this encounter Care Teams Pelt Dropper Relationship Specialty Start Date End Date Donny Cooper MD [address] [place] [address] PCP - General Family Medicine 02/25/19 documented as of this encounter
--- OUTSIDE RECORDS SUMMARY | 2024-01-05 08:13 | XMS_ITS | Encounter Summary ---
Author Organization [facility] Address [address] [place] [address] Care Team Providers Care Mill Tender Second Operator Name Role Phone Clem Olvera MD Primary Care Provider [phone] Reason for Referral * (Routine) - Closed Specialty Diagnoses / Procedures Referred By Pedro madera Referred To Contact Beatrice De La Garza NP [address] [place] [phone] Referral ID Status Reason Start Date Expiration Date V isits Requested Visits Authorized [id number] Closed Specialty Services Required 02/27/2016 1 1 Comments You must contact us if we have not contacted you or you have missed your scheduled appointment. If you have any nursing questions, please don't hesitate to call the Cardiac Arrhythmia Service at [facility] at [phone] or , extension [phone]. For any scheduling of appointments, please call [phone] or , extension [phone]. . * (Routine) - Closed Specialty Diagnoses / Procedures Referred By Pedro madera Referred To Contact Beatrice De La Garza NP [address] [address] Referral ID Status Reason Start Date Expiration Date V isits Requested Visits Authorized [id number] Closed Specialty Services Required 02/27/2016 1 1 Comments You have a pre existing appointment with Dr. Olvera on March 05 at 2:00, please have Dr. Olvera check your incision at that visit. * (Routine) - Closed Specialty Diagnoses / Procedures Referred By Contbecca t Referred To Contact Beatrice De La Garza NP [address] [address] Referral ID Status Reason Start Date Expiration Date V isits Requested Visits Authorized [id number] Closed Specialty Services Required 02/27/2016 1 1 [...] [facility] Cardiology is located at [address] [facility] in [place] -Clinics are also held in [facility], and [place], [place] and [facility]. If you live in those areas, we will make arrangements for follow-up appointments in one of those clinics.. Encounter Details Date Type Department Care Team (Late st Contact Info) Description 02/27/2016 6:30 EDT - 02/28/2016 13:39 EDT Hospital Encounter [facility] Cardiac/Telemetry Unit [address] [place] [address] Gulshan Drummond MD PhD [address] [address] Gulshan Montoya Sa, MD [address] [facility] [address] [place] [phone] AICD lead malfunction, subsequent encounter; ICD [...] EF of 20-25% status post silent inferior ND in the early . 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 He had heart failure symptoms that started around May 2013, when he was in [place], [place]. This triggered major cardiac workup including [...] then underwent a device upgrade to a LABORATORY MONITOR-D device with biventricular pacing for his EF [...] in cardiology outreach clinic at [facility] in [place]. Continued high pacing threshold on the epicardial [...] and plans to follow up with his Shredder Operator in [place] in 6-8 weeks for which [...] HGBA1C Discharge Follow Up Appointments Scheduled with [facility] Appointments Outside of [facility] We Will Schedule Studies We Will Schedule Appointments We Recommend but have not been Scheduled Beatrice De La Garza NP 02/27/2016 10:59 Associated attestation - Gulshan Montoya Sa, MD - 02/28/2016 1519 EDT Attending Attestation: I saw and evaluated the patient. I discussed the case with the resident/MASTIC FLOOR LAYER/fellow and agree with the findings and plan as documented above. Gulshan bullock Sa, MD Cardiac Electrophysiology documented in this encounter Discharge Instructions * Appointments* Beatrice De La Garza NP - 02/27/2016 11:[address] Olvera on 03/05/16 at 2:00 as previously scheduled for a routine visit and for a check of your incision. Follow up with Giselle Hill NP at the [facility] in May, you will be [...] documented in this encounter Progress Notes * oLu Alfonso RN - 02/28/2016 0977 EDT Pt awaiting discharge. IV and tele was removed by primary nurse. This RN administered flu shot and provided flu information sheet. AVS and medications reviewed by RN with patient and . AVS statedcoreg was 3.25mg BID, which pt states no, they must have copied it down wrong. I'm not doing that.We've been through this in [place]. It makes me pass out. RN suggested checking with team, which pt denied and states I wont take it twice a day. He did agree to review this medication with his plumbing engineer and plans to remain on his [...] friends and neighbors. Patient has Medicare and [facility]. Pharmacy is [facility] in [facility]. No needs identified at time of discharge. will provide transportation. Beatrice Rodriguez RN Case Manager #[phone] documented in this encounter H&P Notes * Navdeep Hurd MD - 02/27/2016 0830 EDT Cardiology Admitting H&P Admit Date: 02/27/2016 Date of Service: 02/27/2016 PCP: Clem Olvera Code Status: Full Code Chief Complaint: FINN, device battery depletion, high pacing threshold on epicardial lead HPI: 74-year-old man with coronary artery disease and ischemic cardiomyopathy status post silent inferior ND in the early . 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 He had heart failure symptoms that started around May 2013, when he was in [place], [place]. This triggered major cardiac workup including [...] point, his device was upgraded to a LABORATORY MONITOR-D device with biventricular pacing. By the patient's [...] in cardiology outreach clinic at [facility] in [place]. Continued high pacing threshold on the epicardial LV lead has caused a very rapid battery depletion. Dr. David Adams in [place] recommended against lead extraction and reimplant as [...] ??? Pacemaker insertion 2002 2013 second pacemaker [facility] Social History Family History Social History Substance Use Topics ??? Smoking status: Former Smoker Years: 35.00 Quit date: 1989 ??? Smokeless tobacco: Not on file ??? Alcohol use 6.6 oz/week 6 Cans of beer, 5 Glasses of wine per week , lives with , retired. Spends leong in [place]. Spends the chery in [place], [place]. Quit smoking in 1990. Has 2 [...] and ischemic cardiomyopathy status post silent inferior ND in the early . Also diagnosed with [...] point, his device was upgraded to a LABORATORY MONITOR-D device with biventricular pacing with a surgically [...] EST) 03/12/2016 12:4 3 EST Scan 2 Finance And Administration Manager PROCEDURE/MINOR JUDD GICAL ORDERABLES * ECG REPORT - SCANNED (03/04/2016 14:06 EDT) 03/04/2016 14:0 6 EDT Scan 2 Finance And Administration Manager PROCEDURE/MINOR JUDD GICAL ORDERABLES * ECG REPORT - SCANNED (03/04/2016 14:06 EDT) 03/04/2016 14:0 6 EDT Scan 2 Finance And Administration Manager PROCEDURE/MINOR JUDD GICAL ORDERABLES * IMPLANT RECORD - SCANNED (03/04/2016 14:06 EDT) 03/04/2016 14:0 6 EDT Scan 2 Finance And Administration Manager PROCEDURE/MINOR JUDD GICAL ORDERABLES * ECG REPORT - SCANNED (03/01/2016 8:58 EDT) 03/01/2016 8:58 EDT Scan 2 Finance And Administration Manager PROCEDURE/MINOR JUDD GICAL ORDERABLES * ECG REPORT - SCANNED (03/01/2016 8:58 EDT) 03/01/2016 8:58 EDT Scan 2 Finance And Administration Manager PROCEDURE/MINOR JUDD GICAL ORDERABLES * CHEST PA [...] IMAGING ORDERABLES * HEMAGRAM (02/28/2016 5:44 EDT) [facility] WBC 9.84 4.0 - 10.4 K/cmm 02/28/2016 6:26 EDT [facility] RBC 4.42 4.36 - 5.78 M/cmm 02/28/2016 6:26 T [facility] Hemoglobin 14.2 13.8 - [...] La Garza NP HEMATOLOGY & PF4 ORDERABLES [facility] [address] [place] [address] * (ABNORMAL) CREATININE (02/28/2016 5:44 EDT) Creatinine 0.65(L) 0.66 - 1.25 mg/dl 02/28/2016 6:48 EDT [facility] GFR, Calculated 95 >60 ml/min/1.7 3m2 02/28/2016 6:48 EDT [facility] Comment: eGFR calculated using CKD-EPI equation for non Americans. Multiply eGFR by 1.16 for Americans. Blood specimen (specimen) BLOOD SPECIMEN / Unknown 02/28/2016 5:44 EDT 02/28/2016 6:13 EDT Beatrice De La Garza NP CHEMISTRY & B LOOD GAS ORDERABLES Performing Organization Address [facility]/ZIP Co de Phone Number [facility] [address] [place] [address] * BUN (02/28/2016 5:44 EDT) BUN 14 10 - 26 mg/dl 02/28/2016 6:48 EDT [facility] Blood specimen (specimen) BLOOD SPECIMEN / Unknown 02/28/2016 5:44 EDT 02/28/2016 6:13 EDT Beatrice De La Garza MASTIC FLOOR LAYER CHEMISTRY & B LOOD GAS ORDERABLES Performing Organization Address [facility] Co de Phone Number [facility] [address] [place] [address] * ELECTROLYTES (02/28/2016 5:44 EDT) Sodium 138 136 - 145 mEq/L 02/28/2016 6:48 EDT [facility] Potassium 4.7 3.5 - 5.0 mEq/L 02/28/2016 6:48 EDT [facility] Chloride 104 96 - 110 mEq/L 02/28/2016 6:48 EDT [facility] CO2 25 22 - 32 mEq/L 02/28/2016 6:48 EDT [facility] Comment:Note new reference r hong 02/19/16 Blood specimen (specimen) BLOOD SPECIMEN / Unknown 02/28/2016 5:44 EDT 02/28/2016 6:13 EDT Beatrice De La Garza NP CHEMISTRY & B LOOD GAS ORDERABLES [facility] [address] [place] [address] * PORTABLE CHEST 1 VIEW (02/27/2016 12:46 [...] 12:41 EDT) 02/27/2016 12:4 1 EDT Narrative [facility] - 02/28/2016 8:57 EDT ? [facility] ? Test Date: ?2016-02-27 Pat Name: ? NABIL IGLESIAS ? Department: ?? [facility] ? Room: ? MW514 Gender: ? M ?Photo Checker And Assembler: ?? [id number] : ?1940 ? Requested By: KAIN REED L Order Number: [id number] ? Reading MD: ?? BRAYAN CUENCA MD ? Measurements Intervals ?Patterson ? Rate: ? 63 ? P: ?15 AL: ? 159 ?QRS: ?234 QRSD: ? 156 [...] Date: 2016-02-27 Pat Name: NABIL IGLESIAS Department: [place] [address] Room: [facility] Gender: M Photo Checker And Assembler: [id number] : 1940 Requested By: KAIN Gallagher Order Number: [id number] Reading MD: BRAYAN CUENCA MD Measurements Intervals Patterson Rate: 63 P: 15 AL: 159 QRS: 234 QRSD: 156 T: 15 QT: 479 QTc: 493 Interpretive Statements ELECTRONIC VENTRICULAR PACEMAKER Compared to ECG 02/27/2016 08:10:34 No significant changes I reviewed the tracing and have either agreed or edited the findings inthis report. Electronically Signed On 02-28-16 08:57:02 EDT by BRAYAN BEEBE. Gulshan Drummond MD PhD CARDIA C ECG ORDERABLES [facility] E[facility] * PROTIME (02/27/2016 8:45 EDT) Pro Time 12.3 10.3 - 13.1 secs 02/27/2016 9:10 EDT [facility] Comment: New prothrombin t josue range effective 01/29/16 I.N.R. 1.1 0.9 - 1.1 Ratio 02/27/2016 9:10 EDT [facility] Comment: Moderate Intensity Coumadin INR = 2.0-3.0 Adjustments in anticoagulant therapy dose should be based upon the INR and NOT the Pro Time. Blood specimen (specimen) BLOOD SPECIMEN / Unknown 02/27/2016 8:45 EDT 02/27/2016 8:54 EDT Gulshan Drummond MD PhD HEMATO LOGY & PF4 ORDERABLES [facility] [address] [place] [address] * HEMAGRAM (02/27/2016 8:45 EDT) WBC 6.47 4.0 - 10.4 K/cmm 02/27/2016 8:57 EDT [facility] RBC 4.51 4.36 - 5.78 M/cmm 02/27/2016 8:57 EDT [facility] Hemoglobin 14.7 13.8 - 17.3 gm/dl 02/27/2016 8:57 EDT [facility] HCT 41.7 39.5 - 50.2 % 02/27/2016 8:57 EDT [facility] MCV 93 81 - 95 fl 02/27/2016 8:57 EDT [facility] MCH 32.6 27.6 - 33.0 pg 02/27/2016 8:57 EDT [facility] MCHC 35.3 32.8 - 36.4 gm/dl 02/27/2016 8:57 T [facility] RDW-CV 13.1 11.8 - 14.1 % 02/27/2016 8:57 EDT [facility] RDW-SD 44.0 36.5 - 45.9 fl 02/27/2016 8:57 EDT [facility] PLT 176 141 - 377 K/cmm 02/27/2016 8:57 EDT [facility] MPV 10.7 9.5 - 12.7 fl 02/27/2016 8:57 EDT [facility] Blood specimen (specimen) BLOOD SPECIMEN / Unknown 02/27/2016 8:45 EDT 02/27/2016 8:54 EDT Gulshan Drummond MD PhD HEMATO LOGY & PF4 ORDERABLES [facility] [address] [place] [address] * ELECTROLYTES (02/27/2016 8:45 EDT) Sodium 142 136 - 145 mEq/L 02/27/2016 9:13 EDT [facility] Potassium 4.7 3.5 - 5.0 mEq/L 02/27/2016 9:13 EDT [facility] Chloride 103 96 - 110 mEq/L 02/27/2016 9:13 EDT [facility] CO2 27 22 - 32 mEq/L 02/27/2016 9:13 EDT [facility] Comment:Note new reference r hong 02/19/16 Blood specimen (specimen) BLOOD SPECIMEN / Unknown 02/27/2016 8:45 EDT 02/27/2016 8:54 EDT Gulshan Drummond MD PhD CHEMIS TRY & BLOOD GAS ORDERABLES Performing Organization Address [facility] de Phone Number [facility] [address] [place] [address] * CREATININE (02/27/2016 8:45 EDT) Creatinine 0.69 0.66 - 1.25 mg/dl 02/27/2016 9:13 EDT [facility] GFR, Calculated 93 >60 ml/min/1.7 3m2 02/27/2016 9:13 EDT [facility] Comment: eGFR calculated using CKD-EPI equation for non Americans. Multiply eGFR by 1.16 for Americans. Blood specimen (specimen) BLOOD SPECIMEN / Unknown 02/27/2016 8:45 EDT 02/27/2016 8:54 EDT Gulshan Drummond MD PhD CHEMIS TRY & BLOOD GAS ORDERABLES Performing Organization Address City/[facility] Co de Phone Number [facility] [address] [place] [address] * BUN (02/27/2016 8:45 EDT) BUN 17 10 - 26 mg/dl 02/27/2016 9:13 EDT [facility] Blood specimen (specimen) BLOOD SPECIMEN / Unknown 02/27/2016 8:45 EDT 02/27/2016 8:54 EDT Gulshan Drummond MD PhD CHEMIS TRY & BLOOD GAS ORDERABLES [facility] [address] [place] [address] * EKG 12-LEAD (02/27/2016 8:08 EDT) 02/27/2016 8:08 EDT Narrative [facility] - 02/28/2016 9:01 EDT ? [facility] ? Test Date: ?2016-02-27 Pat Name: ? NABIL IGLESIAS ? Department: ?? [facility] ? Room: ? [id number] Gender: ? M ?Photo Checker And Assembler: ?? [id number] : ?1940 ? Requested By: MARCIA Boo Order Number: [id number] ? Julia WRIGHT: ?? BRAYAN CUENCA MD ? Measurements Intervals ?Patterson ? Rate: ? 69 ? P: ?147 AL: ? 134 ?QRS: ?-67 QRSD: ? 160 [...] NABIL IGLESIAS Department: [facility] Room: [id number] Gender: M Photo Checker And Assembler: [id number] : 1940 Requested By: MARCIA Boo Order Number: [id number] Reading MD: BRAYAN CUENCA MD Measurements Intervals Patterson Rate: 69 P: 147 AL: 134 QRS: -67 QRSD: 160 T: -59 QT: 434 QTc: 467 Interpretive Statements ELECTRONIC ATRIAL PACEMAKER ELECTRONIC VENTRICULAR PACEMAKER Compared to ECG 02/27/2016 08:08:46 No significant changes I reviewed the tracing and have either agreed or edited the findings inthis report. Electronically Signed On 02-28-16 09:01:04 EDT by BRAYAN BEEBE. Navdeep Hurd MD CARDIAC ECG ORD ERABLES [facility] E[facility] documented in this encounter Visit [...] Reason: Other - Comment: pt already took TURRET PUNCH PRESS OPERATOR, takes other meds at HS) 921 (Given [...] Reason: Other - Comment: pt already took TURRET PUNCH PRESS OPERATOR, takes other meds at HS)2100 (Given - Provider: Mady Bruno RN) spironolactone (ALDACTONE) tablet 12.5 mg 12.5 mg, oral, DAILY, First dose on Thu02/27/16 at 1245, Until Discontinued, Routine 1306 (Not Given - Provider: Nneka Stuart RN - Reason: Other - Comment: pt already took TURRET PUNCH PRESS OPERATOR, takes other meds at HS)2102 (Given - Provider: Mady Bruno RN) tamsulosin (FLOMAX) capsule 0.4 mg 0.4 mg, oral, DAILY, First dose on Thu02/27/16 at 1245, Until Discontinued, Routine 1306 (Not Given - Provider: Nneka Stuart RN - Reason: Other - Comment: pt already took TURRET PUNCH PRESS OPERATOR, takes other meds at HS) 921 (Given [...] 02/02 documented in this encounter Care Teams Mill Tender Second Operator Relationship Specialty Start Date End Date Clem Olvera MD [address] [place] [address] PCP - General 12/18/15 documented as of this encounter
--- OUTSIDE RECORDS SUMMARY | 2024-01-05 08:13 | XMS_ITS | Encounter Summary ---
Author [facility] [place] [address] Care Team Providers Care Ebd Special Education Teacher Name Role Phone Donny Cooper MD Primary Care Provider [phone] Encounter Details Date Type Department Care Team (Latest Contact Info) Description 10/03/2022 10:00 AM EDT Office Visit Cardiology at [address] [address] [place] No [place] [facility] [place] [address] Cardiomyopathy, primary; Presence of cardiac resynchronization therapy defibrillator (ROPEMAN-D); Diaphragmatic stimulation by cardiac pacemaker, initial encounter [...] original note were not included. Cardiac Device ROPEMAN-D Programming Evaluation Nabil Iglesias [id number] 10/03/2022 History: Mr. Iglesias is a pleasant [...] OFF Pacing Mode: DDD 60/130/120 Presenting EGMs: -BP/-MEDICAL RECEPTIONIST BILLER Underlying Rhythm: CHB with no obvious escape [...] AM EDT Hospital Encounter Non[place] [address] Arrived documented as of this encounter Procedures Procedure Name Priority Date/Time Associated Diagnosis Comments EKG 12-LEAD Routine 10/03/2022 11:00 AM EDT Cardiomyopathy, primary Presence of cardiac resynchronization therapy defibrillator (ROPEMAN-D) Diaphragmatic stimulation by cardiac pacemaker, initial encounter documented in this encounter Results * EKG 12 Lead (10/03/2022 11:00 AM EDT) Ventricular rate 74 BPM MUSE SYSTEM Atrial Rate 74 BPM MUSE SYSTEM P-R Interval 154 ms MUSE SYSTEM QRS Duration 162 ms MUSE SYSTEM Q-T Interval 470 ms MUSE SYSTEM QTC Calculated (Bezet) 521 ms MUSE SYSTEM Calculated P [place] 30 degrees MUSE SYSTEM Calculated R [place] -98 degrees MUSE SYSTEM Calculated T [place] 41 degrees MUSE SYSTEM INTERPRETATION Atrial-sense d [...] cardiomyopathies Presence of cardiac resynchronization therapy defibrillator (ROPEMAN-D) Diaphragmatic stimulation by cardiac pacemaker, initial encounter documented in this encounter Care Teams Ebd Special Education Teacher Relationship Specialty Start Date End Date Donny Cooper MD [address] [place] [address] PCP - General Family Medicine 02/25/19 documented as of this encounter
--- OUTSIDE RECORDS SUMMARY | 2024-01-05 08:13 | XMS_ITS | Encounter Summary ---
[place] [address] Care Team Providers Care Direct Care Supervisor Name Role Phone Donny Cooper MD Primary Care Provider [phone] Encounter Details Date Type Department Care Team (Latest Contact Info) Description 04/03/2023 10:00 AM EST - 04/03/2023 11:[address] [facility] Hospital Encounter Non-Invasive [place] [address] Discharge Disposition: Home Social History Tobacco Use [...] AM EDT Hospital Encounter Non-Invasive [place] [address] Arrived documented as of this [...] on filedocumented in this encounter Care Teams Direct Care Supervisor Relationship Specialty Start Date End Date Donny Cooper MD [address] [place] [address] PCP - General Family Medicine 02/25/19 documented as of this encounter
--- OUTSIDE RECORDS SUMMARY | 2024-01-05 08:13 | XMS_ITS | Encounter Summary ---
Author Organization [facility] Address [address] [place] [address] Care Team Providers Care Medical Assistant Dermatology Name Role Phone Clem Olvera MD Primary Care Provider Reason for Referral * Cardiology (3 - 10 Business Days) - Closed Specialty Diagnoses / Procedures [facility] Referred To Contact Diagnoses ICD (implantable cardioverter-defibrillator) battery depletion Pacemaker lead failure, initial encounter 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 Procedures IMPLANTABLE CARDIAC DEFIBRILLATOR PROCEDURE Navdeep Hurd MD [address] [place] [address] [address] [place] [address] Referral ID Status Reason Start Date Expiration Date Visits Re quested Visits Authorized [id number] Closed 02/13/2016 1 1 Encounter Details Date Type Department Care Team (Latest Contact Info) Description 02/13/2016 Pre-Procedure Orders Encounter [facility] CARDIOLOG[facility] [address] [place], [place] [address] Navdeep Hurd MD [address] [facility] [address] [place] [address] ICD (implantable cardioverter-defibril lator) battery [...] 8 EDT Narrative 02/27/2016 15:17 EDT *Cardiology* [address] [place] [address] Lead Revision (Report amended ) Patient: Nabil Iglesias ?Study Date: ?02/27/2016 ? Accession #: ? [id number] : ? 1940 Referring: Clem Olvera Attending: [...] 0.35 glide wire a Nick MENDOZAW 6F ([facility]) 6 mm-40 mm balloon dilation still could [...] Venograms were performed in the [place]ORE and [place] projections and a suitable mid-lateral LV branch [...] fascia. The leads were connected to a SHIP MANAGER-D device. Device and Lead detail in table [...] Implanted device: Medtronic - Viva Quad XT SHIP MANAGER-D DF4 - Serial number: [id number] Explanted device: Medtronic - Viva XT SHIP MANAGER-D DF4 - Serial number: [id number]. LEAD PARAMETERS + + + + + [...] + + + + + Serial number [id number] ? [id number] ?? [id number] ?? [id number] ? + + + + [...] Gulshan Drummond MD - 05/12/2016 *Cardiology* [address] [place] [address] Lead Revision (Report amended ) Patient: Nabil [...] therefore over an 0.35 glide wire a [facility] 6F ([facility]) 6 mm-40 mm balloon dilation still could [...] Venograms were performed in the [place] and [place] projections and a suitable mid-lateral LV branch [...] fascia. The leads were connected to a SHIP MANAGER-D device. Device and Lead detail in table [...] Implanted device: Medtronic - Viva Quad XT SHIP MANAGER-D DF4 - Serial number: [id number] Explanted device: Medtronic - Viva XT SHIP MANAGER-D DF4 - Serial number: [id number]. LEAD PARAMETERS + + + + + + Lead # 1 2 3 4 + + + + + + Chamber RA RV LV LV + + + + + + Date 07/19/2002 07/18/2013 02/27/2016 07/18/2013 implanted + + + + + + Model St. Esa Medtronic Medtronic Enpath information [id number] Attain Epicardial Performa 4298 + + + + + + Serial number [id number] + + + + + + [...] documented in this encounter Care Teams Medical Assistant Dermatology Relationship Specialty Start Date End Date Clem Olvera MD [address] [place] [address] PCP - General 12/18/15 documented as of this encounter
--- OUTSIDE RECORDS SUMMARY | 2024-01-05 08:13 | XMS_ITS | Encounter Summary ---
Author Organization [facility] Address [address] [place] [address] Care Team Providers Care Beamster Name Role Phone Clem Olvera MD Primary Care Provider [phone] Reason for Visit * Reason Onset Date Comments Appointment Related 10/23/2016 Check for fo llow up of pacer Encounter Details Date Type Department Care Team ([facility] Contact Info) Description 10/23/2016 Telephone [facility] Cardiology - [address] [place] [address] Pacemaker, Pace Appointment Related (Check [...] that Nabil had his pacemaker checked in [place] where they are for the winter. They have some back and are being followed by Dr. Hurd at [facility]. documented in this encounter Plan of Treatment Not on file documented as of this encounter Visit Diagnoses Not on filedocumented in this encounter Care Teams Beamster Relationship Specialty Start Date End Date Clem Olvera MD [address] [place] [address] PCP - General 12/18/15 documented as of this encounter
--- OUTSIDE RECORDS SUMMARY | 2024-01-05 08:13 | XMS_ITS | Encounter Summary ---
Author Organization [facility] Address [address] [place] [address] Care Team Providers Care Police Stenographer Name Role Phone Clem Olvera MD Primary Care Provider [phone] Encounter Details Date Type Department Care Team (Latest Contact Info) Description 12/20/2015 10:52 EDT - 12/20/2015 23:52 EDT Hospital Encounter [facility] [address] [place] [address] Navdeep Hurd MD [address] [place] [address] [address] Discharge Disposition: Home or Self [...] no need to beNPO or have a guard driver. However, his will be accompanying him. They are driving someone to the airport for 1000 and then will come here and check-in around 1145. He agrees to have a shower. documented in this encounter Procedure Notes * Fantasma Dhillon MD - 12/20/2015 1356 EDT IR Brief Procedure Note Attending: Leo Configuration Manager: Alejo Pre-op Dx: Arrhythmia, need for [...] 12/19 documented in this encounter Care Teams Police Stenographer Relationship Specialty Start Date End Date Clem Olvera MD [address] [place] [address] PCP - General 12/18/15 documented as of this encounter
--- OUTSIDE RECORDS SUMMARY | 2024-01-05 08:13 | XMS_ITS | Referral Summary ---
Author Organization [facility] Address [address] [place] [address] Care Team Providers Care Building Construction Contractor Name Role Phone Clem Olvera MD Primary Care Provider [phone] Allergies No known active allergies Medications Medication [...] Advance Directives For more information, please contact: [phone] * Full Code (Latest Code Status on File) Date Activated Date Inactivated Comments 02/27/2016 8:49 02/28/2016 15:40 Question Answer Comments Reason for decision includes: Full code consistent with overall plan of care Who participated in the discussion? Not Discusse d Care Teams Building Construction Contractor Relationship Specialty Start Date End Date Clem Olvera MD [address] [place] [address] [id number] PCP - General 12/18/15
--- OUTSIDE RECORDS SUMMARY | 2024-01-05 08:13 | XMS_ITS | Encounter Summary ---
[place] [address] Care Team Providers Care Cadmium Plater Name Role Phone Donny Cooper MD Primary Care Provider [phone] Encounter Details Date Type Department Care Team (Late st Contact Info) Description 12/28/2023 Notes Only Cardiology at [address] [phone] Kanika Shell Social History Tobacco Use Types [...] AM EDT Hospital Encounter Non-Invasive [place] [address] Arrived documented as of this encounter Visit Diagnoses Not on filedocumented in this encounter Care Teams Cadmium Plater Relationship Specialty Start Date End Date Donny Cooper MD [address] [facility] [address] [place] [address] PCP - General Family Medicine 02/25/19 documented as of this encounter
--- OUTSIDE RECORDS SUMMARY | 2024-01-05 08:14 | XMS_ITS | Encounter Summary ---
Author Organization [facility] [place] [address] Care Team Providers Care Executive Director Of Marketing Name Role Phone Marques Martinez MD Primary Care Provider [phone] Encounter Details Date Type Department Care Team (Late st Contact Info) Description 03/30/2010 [place] [address] Javier Barajas MD [facility] [place] [address] Social History Tobacco Use Types Packs/Day Years [...] Hospital Encounter Non[place] [address] Arrived documented as of this encounter Procedures [...] AM EST Jairon Fenton MD CHEMISTRY ORDERABLES [facility] * (ABNORMAL) CREATININE, SERUM (04/01/2010 6:09 AM [...] Fenton MD CHEMISTRY ORDERABLES Performing Organization Address [facility] de Phone Number CERNER [facility] * BUN (04/01/2010 6:09 AM EST) Blood Urea Nitrogen 12 10 - 20 mg/dL [facility] Blood specimen (specimen) 04/01/2010 6:09 AM EST 04/01/2010 6:09 AM EST Jairon Fenton MD CHEMISTRY ORDERABLES Performing Organization Address [facility] de Phone Number CERNER MILLENNIUM [...] MD HEMATOLOGY ORDERABLE S Performing Organization Address [facility] de Phone Number CERNER MILLENNIUM [...] Fenton MD CHEMISTRY ORDERABLES Performing Organization Address [facility] Phone Number CERIVIS MILLENNIUM * ELECTROLYTE PANEL [...] Fenton MD CHEMISTRY ORDERABLES Performing Organization Address [facility] Co de Phone Number CERIVIS MILLENNIUM * CREATININE, SERUM (03/30/2010 6:05 PM EST) Creatinine 0.87 0.80 - 1.50 mg/dL [facility] Est Glomerular Filtration Rate >60 >=60 [facility] Comment: The National Kidney Disease Education [...] Urea Nitrogen 18 10 - 20 mg/dL [facility] Blood specimen (specimen) 03/30/2010 6:05 PM EST 03/30/2010 6:13 PM EST Jairon Fenton MD CHEMISTRY ORDERABLES Performing Organization Address [facility] de Phone Number DEJA SEGOVIA * APTT (03/30/2010 6:05 PM EST) Partial Thromboplastin Time 26 25 - 37 sec [facility] Comment: Recommended therapeutic PTT range for full dose unfractionated heparin is 80-114 seconds. Blood specimen (specimen) 03/30/2010 6:05 PM EST 03/30/2010 6:14 PM EST Jairon Fenton MD HEMATOLOGY ORDERABLE S Performing Organization Address [facility] Phone Number DEJA SEGOVIA * PROTIME-INR (03/30/2010 6:05 PM EST) Prothrombin Time 14.2 12.3 - 14.7 sec [facility] Comment: [facility] Transfusion Committee Guidelines: INR less than 2.0, PTT less than OR equal to 43.5 seconds, or Fibrinogen greater than or equal to 100 mg/dl indicate adequate procoagulant activity for hemostasis in patients without underlying bleeding disorders. International Normalization Ratio 1.1 0.9 - 1.1 [facility] Blood specimen (specimen) 03/30/2010 6:05 PM EST 03/30/2010 6:14 PM EST Jairon Fenton MD HEMATOLOGY ORDERABLE S Performing Organization Address [facility] de Phone Number DEJA SEGOVIA [...] Standard Deviation 44.2 35.0 - 46.0 fL [facility] RDW coefficient of variation 13.1 10.9 - 14.4 % [facility] Mean Platelet Volume 10.6 9.0 - 12.0 fL [facility] Blood specimen (specimen) 03/30/2010 6:05 PM EST 03/30/2010 6:13 PM EST Jairon Fenton MD HEMATOLOGY ORDERABLE S Performing Organization Address [facility] Co de Phone Number [facility] * REFLEX LAB-ANTIBODY SCREEN (03/30/2010 3:17 PM EST) [facility] Ab Screen Interp Negative [facility] Expires at [id number] on: [id number] [facility] Blood specimen (specimen) 03/30/2010 3:17 PM EST 03/30/2010 3:17 PM EST Javier Barajas MD BLOOD BANK LAB ORDER PRECIOUS Performing Organization Address [facility] Co de Phone Number [facility] * REFLEX LAB-ABO/RH (03/30/2010 3:17 PM EST) [facility] ABORH Type A Pos [facility] Blood specimen (specimen) 03/30/2010 3:17 PM EST 03/30/2010 3:17 PM EST Javier Barajas MD BLOOD BANK LAB ORDER PRECIOUS Performing Organization Address [facility] Co de Phone Number [facility] * ELECTROLYTE PANEL (03/30/2010 2:50 PM EST) [facility] Sodium 135 135 - 145 mmol/L [facility] Potassium 4.3 3.5 - 5.0 mmol/L [facility] Comment: Please note: ??Patients with WBC [...] Barajas MD CHEMISTRY ORDERABLES Performing Organization Address [facility] Phone Number [facility] * BUN (03/30/2010 2:50 PM EST) Blood Urea Nitrogen 18 10 - 20 mg/dL [facility] Blood specimen (specimen) 03/30/2010 2:50 PM EST 03/30/2010 3:05 PM EST Javier Barajas MD CHEMISTRY ORDERABLES Performing Organization Address [facility] Phone Number [facility] * GLUCOSE, RANDOM (03/30/2010 2:50 PM EST) Glucose 95 <=199 mg/dL [facility] Comment:Diabetes: >=200 mg/d L plus symptoms Blood specimen (specimen) 03/30/2010 2:50 PM EST 03/30/2010 3:05 PM EST Javier Barajas MD CHEMISTRY ORDERABLES Performing Organization Address [facility] Phone Number [facility] * APTT (03/30/2010 2:50 PM EST) Partial Thromboplastin Time 25 25 - 37 sec [facility] Comment: Recommended therapeutic PTT range for full dose unfractionated heparin is 80-114 seconds. Blood specimen (specimen) 03/30/2010 2:50 PM EST 03/30/2010 3:06 PM EST Javier Barajas MD HEMATOLOGY ORDERABLE S Performing Organization Address [facility] Phone Number [facility] * PROTIME-INR (03/30/2010 2:50 PM EST) Prothrombin Time 14.1 12.3 - 14.7 sec [facility] Comment: [facility] Transfusion Committee Guidelines: INR less than 2.0, [...] Javier Barajas MD HEMATOLOGY ORDERABLE S DEJA ESGOVIA documented in this encounter Visit Diagnoses Not on filedocumented in this encounter Care Teams Executive Director Of Marketing Relationship Specialty Start Date End Date Marques Martinez MD [address] [place] [address] PCP - General 04/01/10 04/08/11 documented as of this encounter
--- OUTSIDE RECORDS SUMMARY | 2024-01-05 08:14 | XMS_ITS | Encounter Summary ---
Author [facility] [place] [address] Care Team Providers Care Cook Roast Name Role Phone Marques Martinez MD Primary Care Provider Encounter Details Date Type Department Care Team (Late st Contact Info) Description 09/11/2010 Orders [place] [phone] Jairon Fenton MD [facility] [place] [address] Fracture of patella, left, closed (Primary Dx) [...] AM EDT Hospital Encounter [place] [phone] Arrived documented as of this encounter Visit Diagnoses Diagnosis Fracture of patella, left, closed- Primary Closed fracture of patella documented in this encounter Care Teams Cook Roast Relationship Specialty Start Date End Date Marques Martinez MD [address] [place] [address] PCP - General 04/01/10 04/08/11 documented as of this encounter
--- OUTSIDE RECORDS SUMMARY | 2024-01-05 08:14 | XMS_ITS | Encounter Summary ---
Author Organization [facility] [place] [address] Care Team Providers Care Blue Leather Sorter Name Role Phone Marques Martinez MD Primary Care Provider [phone] Encounter Details Date Type Department Care Team (Late st Contact Info) Description 10/09/2010 11:35 AM EDT - 10/09/2010 11:59 PM EDT Hospital Encounter XRay at [address] [place] [phone] Social History Tobacco Use Types Packs/Day Years [...] AM EDT Hospital Encounter Non-Invasive Cardiology Lab [facility] [place] [address] Arrived documented as of this encounter Visit Diagnoses Not on filedocumented in this encounter Care Teams Blue Leather Sorter Relationship Specialty Start Date End Date Marques Martinez MD [address] [place] [address] PCP - General 04/01/10 04/08/11 documented as of this encounter
--- OUTSIDE RECORDS SUMMARY | 2024-01-05 08:14 | XMS_ITS | Encounter Summary ---
[place] [address] Care Team Providers Care Property Claims Adjuster Name Role Phone Donny Cooper MD Primary Care Provider [phone] Encounter Details Date Type Department Care Team (Late st Contact Info) Description 03/17/2019 Telephone Cardiology at [address] [address] Sheri Quinn LNA Social History [...] 11:46 AM EST Medication list reviewed with [facility] list. Please review with patient at next clinic visit. documented in this encounter Plan of Treatment Upcoming Encounters Date Type Department Care Team (Late st Contact Info) Description 02/02/2024 10:00 AM EDT Hospital Encounter Non-[place] [address] Arrived documented as of this encounter Visit Diagnoses Not on filedocumented in this encounter Care Teams Property Claims Adjuster Relationship Specialty Start Date End Date Donny Cooper MD [address] [place] [address] PCP - General Family Medicine 02/25/19 documented as of this encounter
--- OUTSIDE RECORDS SUMMARY | 2024-01-05 08:14 | XMS_ITS | Encounter Summary ---
[place] [address] Care Team Providers Care Highway Patrol Officer Name Role Phone Marques Martinez MD Primary Care Provider Encounter Details Date Type Department Care Team (Late st Contact Info) Description 06/12/2010 2:00 PM EST Procedure visit [place] [address] Social History Tobacco Use Types Packs/Day Years [...] AM EDT Hospital Encounter Non[place] [address] Arrived documented as of this encounter Visit Diagnoses Not on filedocumented in this encounter Care Teams Highway Patrol Officer Relationship Specialty Start Date End Date Marques Martinez MD [address] [place] [address] PCP - General 04/01/10 04/08/11 documented as of this encounter
--- OUTSIDE RECORDS SUMMARY | 2024-01-05 08:14 | XMS_ITS | Encounter Summary ---
Author Organization [facility] [place] [address] Care Team Providers Care Continuous Process Tanner Rotary Drum Name Role Phone Donny Cooper MD Primary Care Provider [phone] Encounter Details Date Type Department Care Team (Late st Contact Info) Description 07/26/2019 Notes Only Cardiology at [address] [address] Maged Arguelles MD [facility] [place] [address] Social History Tobacco Use Types Packs/Day Years [...] his Medtronic biventricular ICD is reviewed. Suboptimal DE ICER FINISHER at 84%. Normal device function. Awaiting Holter to assess PVC burden. Maged Arguelles MD [facility] Cardiac Electrophysiology 07/26/2019 9:04 AM documented in this encounter Plan of Treatment Upcoming Encounters Date Type Department Care Team (Late st Contact Info) Description 02/02/2024 10:00 AM EDT Hospital Encounter Non-Invasive [place] [address] Arrived documented as of this encounter Visit Diagnoses Not on filedocumented in this encounter Care Teams Continuous Process Tanner Rotary Drum Relationship Specialty Start Date End Date Donny Cooper MD [address] [place] [address] PCP - General Family Medicine 02/25/19 documented as of this encounter
--- OUTSIDE RECORDS SUMMARY | 2024-01-05 08:14 | XMS_ITS | Encounter Summary ---
[place] [address] Care Team Providers Care Conference Services Manager Name Role Phone Donny Cooper MD Primary Care Provider [phone] Encounter Details Date Type Department Care Team (Late st Contact Info) Description 06/14/2020 Telephone Cardiology at [address] [phone] Nhung Briggs Social History Tobacco Use Types [...] He would like to be seen at [facility]. Email sent to Brittaney Hernandez at [facility] asking her to reach out to pt to set up the appt with either Dr. Arguelles or LANG Albert. Nhung Allen Electrophysiology Scheduling [id number] option 2 documented in this encounter Plan of Treatment Upcoming Encounters Date Type Department Care Team (Late st Contact Info) Description 02/02/2024 10:00 AM EDT Hospital Encounter Non-Invasive [place] [address] Arrived documented as of this encounter Visit Diagnoses Not on filedocumented in this encounter Care Teams Conference Services Manager Relationship Specialty Start Date End Date Donny Cooper MD [address] [place] [address] PCP - General Family Medicine 02/25/19 documented as of this encounter
--- OUTSIDE RECORDS SUMMARY | 2024-01-05 08:14 | XMS_ITS | Encounter Summary ---
Author Organization [facility] [place] [address] Care Team Providers Care District Director Name Role Phone Marques Martinez MD Primary Care Provider [phone] Reason for Visit * Reason Comments Follow Up Fracture PATELLA FX DOI 03/23 10 Encounter Details Date Type Department Care Team (Late st Contact Info) Description 10/09/2010 12:40 PM EDT Office [place] [address] Jairon Gustafson MD [facility] [place] [address] Jose Francisco Bee PA [facility] [place] [address] Quadriceps tendon rupture (Primary Dx) Discharge Disposition: [...] AM EDT Hospital Encounter Non-[place] [address] Arrived documented as of this encounter Visit Diagnoses Diagnosis Quadriceps tendon rupture- Primary Sprain and strain of other specified sites of knee and leg documented in this encounter Care Teams District Director Relationship Specialty Start Date End Date Marques Martinez MD [address] [place] [address] PCP - General 04/01/10 04/08/11 documented as of this encounter
--- OUTSIDE RECORDS SUMMARY | 2024-01-05 08:14 | XMS_ITS | Encounter Summary ---
Author Organization [facility] [place] [address] Care Team Providers Care Dietary Clerk Name Role Phone Marques Martinez MD Primary Care Provider [phone] Encounter Details Date Type Department Care Team (Late st Contact Info) Description 05/01/2010 3:10 PM EST Office [place] [phone] Jairon Fenton MD [facility] [place] [address] Discharge Disposition: Home Social History Tobacco Use [...] AM EDT Hospital Encounter Non-[place] [address] Arrived documented as of this encounter Visit Diagnoses Not on filedocumented in this encounter Care Teams Dietary Clerk Relationship Specialty Start Date End Date Marques Martinez MD [address] [place] [address] PCP - General 04/01/10 04/08/11 documented as of this encounter
--- OUTSIDE RECORDS SUMMARY | 2024-01-05 08:14 | XMS_ITS | Encounter Summary ---
Author Organization [facility] [place] [address] Care Team Providers Care Wood Boring Machine Operator Name Role Phone Donny Cooper MD Primary Care Provider [phone] Encounter Details Date Type Department Care Team (Latest Contact Info) Description 12/18/2020 11:57 AM EDT - 12/18/2020 11:59 PM EDT Hospital Encounter Non-[place] [address] Maged Arguelles MD [facility] [place] [address] Cardiomyopathy, primary Discharge Disposition: Home Social History [...] AM EDT Hospital Encounter Non-[place] [address] Arrived documented as of this encounter Procedures Procedure Name Priority Date/Time Associated Diagnosis Comments ICD INTERROGATION 3 MONTH Routine 12/18/2020 12:00 PM EDT Cardiomyopathy, primary documented in this encounter Results * ICD INTERROGATION 3 MONTH (12/18/2020 12:00 PM EDT) Anatomical Region Laterality Modality Other Narrative 12/23/2020 11:08 PM EDT MDT NUT TAPPER-D remote reviewed. Normal device function. Inadequate NUT TAPPER at 80%. Maged Arguelles MD [facility]iac Elect[facility] 12/23/2020 11:06 PM Maged Arguelles MD IMPLANTABLE CARDIAC DEVICE documented in this encounter Visit Diagnoses Diagnosis Cardiomyopathy, primary Other primary cardiomyopathies documented in this encounter Care Teams Wood Boring Machine Operator Relationship Specialty Start Date End Date Donny Cooper MD [address] [facility] [place] [address] PCP - General Family Medicine 02/25/19 documented as of this encounter
--- OUTSIDE RECORDS SUMMARY | 2024-01-05 08:14 | XMS_ITS | Encounter Summary ---
Author Organization [facility] [place] [address] Care Team Providers Care Feeder Operator Automatic Name Role Phone Marques Martinez MD Primary Care Provider [phone] Encounter Details Date Type Department Care Team (Late st Contact Info) Description 06/12/2010 2:10 PM EST Office [place] [phone] Jairon Fenton MD [facility] [place] [address] Discharge Disposition: Home Social History Tobacco Use [...] EDT Hospital Encounter Non-Invasive [place] [address] Arrived documented as of this encounter Visit Diagnoses Not on filedocumented in this encounter Care Teams Feeder Operator Automatic Relationship Specialty Start Date End Date Marques Martinez MD [address] [place] [address] PCP - General 04/01/10 04/08/11 documented as of this encounter
--- OUTSIDE RECORDS SUMMARY | 2024-01-05 08:14 | XMS_ITS | Encounter Summary ---
[place] [address] Care Team Providers Care Ring Rolling Machine Operator Name Role Phone Marques Martinez MD Primary Care Provider Encounter Details Date Type Department Care Team (Late st Contact Info) Description 05/01/2010 2:40 PM EST Procedure [place] [address] Social History Tobacco Use Types Packs/Day Years [...] AM EDT Hospital Encounter Non-Invasive [place] [address] Arrived documented as of this encounter Visit Diagnoses Not on filedocumented in this encounter Care Teams Ring Rolling Machine Operator Relationship Specialty Start Date End Date Marques Martinez MD [address] [place] [address] PCP - General 04/01/10 04/08/11 documented as of this encounter
--- OUTSIDE RECORDS SUMMARY | 2024-01-05 08:14 | XMS_ITS | Encounter Summary ---
Author Organization [facility] [place] [address] Care Team Providers Care Research Professor Name Role Phone Donny Cooper MD Primary Care Provider [phone] Encounter Details Date Type Department Care Team (Latest Contact Info) Description 06/13/2020 12:35 PM EST - 06/13/2020 11:59 PM EST Hospital Encounter Non-Invasive [place] [address] Alber Seals MD [facility] [place] [address] Cardiomyopathy, primary Discharge Disposition: Home Social History [...] AM EDT Hospital Encounter Non-Invasive [place] [address] Arrived documented as of this encounter Procedures Procedure Name Priority Date/Time Associated Diagnosis Comments ICD INTERROGATION 3 MONTH Routine 06/13/2020 12:36 PM EST Cardiomyopathy, primary documented in this encounter Results * ICD INTERROGATION 3 MONTH (06/13/2020 12:36 PM EST) Anatomical Region Laterality Modality Other Narrative 06/14/2020 10:38 AM EST Cardiac Device Remote Monitoring Report Summary Medtronic SecureNet 06/14/20 Device: DIGITAL STRATEGY SPECIALIST-D Model: VIVA QUAD Battery: 2.96 v, estimated longevity 3 years, 11 months Pacing percentage: 78% ventricular paced Events: The presenting rhythm is atrial paced with biventricular pacing and frequent ventricular premature contractions No significant arrhythmias Impression Normal device function; suboptimal DIGITAL STRATEGY SPECIALIST pacing likely secondary to frequent PVCs. Should consider in clinic follow-up for further evaluation Follow Up As per schedule - in-clinic and remote ALBER SEALS MD Alber Seals MD IMPLANTABLE CARDIAC DEVICE documented in this encounter Visit Diagnoses Diagnosis Cardiomyopathy, primary Other primary cardiomyopathies documented in this encounter Care Teams Research Professor Relationship Specialty Start Date End Date Donny Cooper MD [address] [place] [address] PCP - General Family Medicine 02/25/19 documented as of this encounter
--- OUTSIDE RECORDS SUMMARY | 2024-01-05 08:14 | XMS_ITS | Encounter Summary ---
Author Organization [facility] [place] [address] Care Team Providers Care Wet Silk Hanger Name Role Phone Clem Olvera MD Primary Care Provider [phone] Reason for Visit * Reason Comments Follow Up Fracture SP PATELLA FX DO12/12 DOI 03/30/10 Encounter Details Date Type Department Care Team (Late st Contact Info) Description 04/09/2011 1:30 PM EST Office [place] [address] Jairon Gustafson MD [facility] [place] [address] Jose Francisco Bee PA [facility] [place] [address] Patella fracture (Primary Dx) Discharge Disposition: Home [...] AM EDT Hospital Encounter [place] [address] Arrived documented as of this encounter Visit Diagnoses Diagnosis Patella fracture- Primary Closed fracture of patella documented in this encounter Care Teams Wet Silk Hanger Relationship Specialty Start Date End Date Clem Olvera MD [address] [place] [address] PCP - General 04/09/11 02/24/19 documented as of this encounter
--- OUTSIDE RECORDS SUMMARY | 2024-01-05 08:14 | XMS_ITS | Encounter Summary ---
[place] [address] Care Team Providers Care Digital Sales Assistant Name Role Phone Marques Martinez MD Primary Care Provider [phone] Encounter Details Date Type Department Care Team (Late st Contact Info) Description 10/03/2010 Abstract [place] [address] Marina Orosco, JADON Social History Tobacco Use [...] AM EDT Hospital Encounter Non-Invasive [place] [address] Arrived documented as of this encounter Visit Diagnoses Not on filedocumented in this encounter Care Teams Digital Sales Assistant Relationship Specialty Start Date End Date Marques Martinez MD [address] [place] [address] PCP - General 04/01/10 04/08/11 documented as of this encounter
[2024-01-05 08:23] VITALS: BP 114/54; PULSE 69
--- OUTSIDE RECORDS SUMMARY | 2024-01-07 08:17 | XMS_ITS | Clinical Summary ---
Author Organization [facility] Address [address] [place] [address] Care Team Providers Care Kier Tender Name Role Phone Clem Olvera MD Primary Care Provider [phone] Allergies No known active allergies Medications Medication [...] PACEMAKER INSERTION 05/04/2002 - 05/03/20032013 second pacemaker [facility] Medical History Medical History Date [...] Risk Screening 2005 COVID-19 Vaccine (2022- season) 2024 Advance Directives For more information, please contact: [phone] * Full Code (Latest Code Status on File) Date Activated Date Inactivated Comments 02/27/2016 8:49 02/28/2016 15:40 Question Answer Comments Reason for decision includes: Full code consistent with overall plan of care Who participated in the discussion? Not Discusse d Care Teams Kier Tender Relationship Specialty Start Date End Date Clem Olvera MD [address] [place] [address] PCP - General 12/18/15
--- OUTSIDE RECORDS SUMMARY | 2024-01-07 08:18 | XMS_ITS | Encounter Summary ---
Author Organization [facility] [place] [address] Care Team Providers Care Party Planner Name Role Phone Donny Cooper MD Primary Care Provider [phone] Encounter Details Date Type Department Care Team (Latest Contact Info) Description 06/25/2021 3:23 PM EST - 06/25/2021 11:59 PM EST Hospital Encounter [place] [address] Alber Seals MD [facility] [place] [address] Cardiomyopathy, primary Discharge Disposition: Home Social History [...] AM EDT Hospital Encounter [place] [address] Arrived documented as of this encounter Procedures Procedure Name Priority Date/Time Associated Diagnosis Comments ICD INTERROGATION 3 MONTH Routine 06/25/2021 3:24 PM EST Cardiomyopathy, primary documented in this encounter Results * ICD INTERROGATION 3 MONTH (06/25/2021 3:24 PM EST) Anatomical Region Laterality Modality Other Narrative 06/25/2021 3:42 PM EST Cardiac Device Remote Monitoring Report Summary Medtronic Carelink Device: VASCULAR TECHNOLOGIST SONOGRAPHER-D Model: VIVA QUAD Battery: 2.95 v, estimated longevity 2 years 6 months Pacing percentage: 90% VASCULAR TECHNOLOGIST SONOGRAPHER paced Events: Presenting rhythm: atrial paced/biventricular paced Frequent PVC's Impression Normal device function Follow Up As per schedule - in-clinic and remote ALBER SEALS MD 06/25/21 Alber Seals MD IMPLANTABLE CARDIAC DEVICE documented in this encounter Visit Diagnoses Diagnosis Cardiomyopathy, primary Other primary cardiomyopathies documented in this encounter Care Teams Party Planner Relationship Specialty Start Date End Date Donny Cooper MD [address] [place] [address] PCP - General Family Medicine 02/25/19 documented as of this encounter
--- OUTSIDE RECORDS SUMMARY | 2024-01-07 08:18 | XMS_ITS | Encounter Summary ---
Author Organization [facility] [place] [address] Care Team Providers Care Magnetometer Operator Name Role Phone Donny Cooper MD Primary Care Provider [phone] Encounter Details Date Type Department Care Team (Latest Contact Info) Description 12/18/2020 11:57 AM EDT - 12/18/2020 11:59 PM EDT Hospital Encounter Non-[place] [address] Maged Arguelles MD [facility] [place] [address] Cardiomyopathy, primary Discharge Disposition: Home Social History [...] AM EDT Hospital Encounter Non-[place] [address] Arrived documented as of this encounter Procedures Procedure Name Priority Date/Time Associated Diagnosis Comments ICD INTERROGATION 3 MONTH Routine 12/18/2020 12:00 PM EDT Cardiomyopathy, primary documented in this encounter Results * ICD INTERROGATION 3 MONTH (12/18/2020 12:00 PM EDT) Anatomical Region Laterality Modality Other Narrative 12/23/2020 11:08 PM EDT MDT RESIDENT SERVICES DIRECTOR-D remote reviewed. Normal device function. Inadequate RESIDENT SERVICES DIRECTOR at 80%. Maged Arguelles MD [facility] Cardiac Electrophysiology 12/23/2020 11:06 PM Maged Arguelles MD IMPLANTABLE CARDIAC DEVICE documented in this encounter Visit Diagnoses Diagnosis Cardiomyopathy, primary Other primary cardiomyopathies documented in this encounter Care Teams Magnetometer Operator Relationship Specialty Start Date End Date Donny Cooper MD [address] [facility] [address] [place] [address] PCP - General Family Medicine 02/25/19 documented as of this encounter
--- OUTSIDE RECORDS SUMMARY | 2024-01-07 08:18 | XMS_ITS | Encounter Summary ---
Author Organization [facility] [place] [address] Care Team Providers Care Adjunct Trainer Name Role Phone Donny Cooper MD Primary Care Provider [phone] Encounter Details Date Type Department Care Team (Late st Contact Info) Description 07/26/2019 Notes Only Cardiology at [address] [address] Maged Arguelles MD [facility] [place] [address] Social History Tobacco Use Types Packs/Day Years [...] his Medtronic biventricular ICD is reviewed. Suboptimal SLICING MACHINE OPERATOR at 84%. Normal device function. Awaiting Holter to assess PVC burden. Maged Arguelles MD [facility] Cardiac Electrophysiology 07/26/2019 9:04 AM documented in this encounter Plan of Treatment Upcoming Encounters Date Type Department Care Team (Late st Contact Info) Description 02/02/2024 10:00 AM EDT Hospital Encounter Non-Invasive [place] [address] Arrived documented as of this encounter Visit Diagnoses Not on filedocumented in this encounter Care Teams Adjunct Trainer Relationship Specialty Start Date End Date Donny Cooper MD [address] [place] [address] PCP - General Family Medicine 02/25/19 documented as of this encounter
--- OUTSIDE RECORDS SUMMARY | 2024-01-07 08:18 | XMS_ITS | Referral Summary ---
Author Organization [facility] Address [address] [place] [address] Care Team Providers Care Route Returner Name Role Phone Clem Olvera MD Primary Care Provider [phone] Allergies No known active allergies Medications Medication [...] Advance Directives For more information, please contact: [phone] * Full Code (Latest Code Status on File) Date Activated Date Inactivated Comments 02/27/2016 8:49 02/28/2016 15:40 Question Answer Comments Reason for decision includes: Full code consistent with overall plan of care Who participated in the discussion? Not Discusse d Care Teams Route Returner Relationship Specialty Start Date End Date Clem Olvera MD [address] [place] [id number] PCP - General 12/18/15
--- OUTSIDE RECORDS SUMMARY | 2024-01-07 08:18 | XMS_ITS | Encounter Summary ---
[place] [address] Care Team Providers Care Filter Machine Operator Name Role Phone Donny Cooper MD Primary Care Provider [phone] Encounter Details Date Type Department Care Team (Latest Contact Info) Description 01/03/2023 10:00 AM EDT - 01/03/2023 11:59 PM EDT Hospital Encounter Non-Invasive [place] [address] Discharge Disposition: Home Social History Tobacco Use [...] AM EDT Hospital Encounter Non-Invasive [place] [address] Arrived documented as of this encounter Procedures [...] on filedocumented in this encounter Care Teams Filter Machine Operator Relationship Specialty Start Date End Date Donny Cooper MD [address] [place] [address] PCP - General Family Medicine 02/25/19 documented as of this encounter
--- OUTSIDE RECORDS SUMMARY | 2024-01-07 08:18 | XMS_ITS | Encounter Summary ---
[place] [address] Care Team Providers Care Careers Counsellor Name Role Phone Donny Cooper MD Primary Care Provider [phone] Encounter Details Date Type Department Care Team (Latest Contact Info) Description 10/05/2022 10:00 AM EDT - 10/05/2022 11:59 PM EDT Hospital Encounter Non-Invasive [place] [address] Discharge Disposition: Home Social History Tobacco Use [...] AM EDT Hospital Encounter Non-Invasive [place] [address] Arrived documented as of this encounter Procedures [...] on filedocumented in this encounter Care Teams Careers Counsellor Relationship Specialty Start Date End Date Donny Cooper MD [address] [place] [address] PCP - General Family Medicine 02/25/19 documented as of this encounter
--- OUTSIDE RECORDS SUMMARY | 2024-01-07 08:18 | XMS_ITS | Encounter Summary ---
Author Organization [facility] Address [address] [place] [address] Care Team Providers Care Chemical Processing Laborer Name Role Phone Clem Olvera MD Primary Care Provider [phone] Encounter Details Date Type Department Care Team (Latest Contact Info) Description 12/20/2015 10:52 EDT - 12/20/2015 23:52 EDT Hospital Encounter [facility] Cardi[facility] Unit [address] [place] [address] Navdeep Hurd MD [address] [place] [address] [address] Discharge Disposition: Home or Self [...] no need to beNPO or have a cab driver. However, his will be accompanying him. They [place] to the airport [place] 1000 and then will come here and check-in around 1145. He agrees to have a shower. documented in this encounter Procedure Notes * Fantasma Dhillon MD - 12/20/2015 1356 EDT IR Brief Procedure Note Attending: Leo Procurement Buyer: Alejo Pre-op Dx: Arrhythmia, need for pacemaker [...] 12/19 documented in this encounter Care Teams Chemical Processing Laborer Relationship Specialty Start Date End Date Clem Olvera MD [address] [place] [address] PCP - General 12/18/15 documented as of this encounter
--- OUTSIDE RECORDS SUMMARY | 2024-01-07 08:18 | XMS_ITS | Encounter Summary ---
[place] [address] Care Team Providers Care Community Organization Worker Name Role Phone Donny Cooper MD Primary Care Provider [phone] Encounter Details Date Type Department Care Team (Late st Contact Info) Description 12/28/2023 Notes Only Cardiology at [address] [address] Kanika Shell Social History Tobacco Use Types [...] AM EDT Hospital Encounter Non-[place] [address] Arrived documented as of this encounter Visit Diagnoses Not on filedocumented in this encounter Care Teams Community Organization Worker Relationship Specialty Start Date End Date Donny Cooper MD [address] [facility] [facility] 1 [place] [address] PCP - General Family Medicine 02/25/19 documented as of this encounter
--- OUTSIDE RECORDS SUMMARY | 2024-01-07 08:18 | XMS_ITS | Encounter Summary ---
[place] [address] Care Team Providers Care Nib Finisher Name Role Phone Marques Martinez MD Primary Care Provider Encounter Details Date Type Department Care Team (Late st Contact Info) Description 05/01/2010 2:40 PM EST Procedure visit [place] [address] Social History Tobacco Use Types Packs/Day Years [...] AM EDT Hospital Encounter Non-[place] [address] Arrived documented as of this encounter Visit Diagnoses Not on filedocumented in this encounter Care Teams Nib Finisher Relationship Specialty Start Date End Date Marques Martinez MD [address] [place] [address] PCP - General 04/01/10 04/08/11 documented as of this encounter
--- OUTSIDE RECORDS SUMMARY | 2024-01-07 08:18 | XMS_ITS | Encounter Summary ---
[place] [address] Care Team Providers Care Community Health Specialist Name Role Phone Marques Martinez MD Primary Care Provider [phone] Encounter Details Date Type Department Care Team (Late st Contact Info) Description 10/03/2010 [place] [address] Marina Orosco, JADON Social History Tobacco Use [...] AM EDT Hospital Encounter Non-[place] [address] Arrived documented as of this encounter Visit Diagnoses Not on filedocumented in this encounter Care Teams Community Health Specialist Relationship Specialty Start Date End Date Marques Martinez MD [address] [place] [address] PCP - General 04/01/10 04/08/11 documented as of this encounter
--- OUTSIDE RECORDS SUMMARY | 2024-01-07 08:18 | XMS_ITS | Encounter Summary ---
Author Organization [facility] [place] [address] Care Team Providers Care Resource Recovery Engineer Name Role Phone Marques Martinez MD Primary Care Provider [phone] Reason for Visit * Reason Comments Follow Up Fracture PATELLA FX DOI 03/23 10 Encounter Details Date Type Department Care Team (Late st Contact Info) Description 10/09/2010 12:40 PM EDT Office [place] [address] Jairon Gustafson MD [facility] [place] [address] Jose Francisco Bee PA [facility] [place] [address] Quadriceps tendon rupture (Primary Dx) Discharge Disposition: [...] AM EDT Hospital Encounter Non-[place] [address] Arrived documented as of this encounter Visit Diagnoses Diagnosis Quadriceps tendon rupture- Primary Sprain and strain of other specified sites of knee and leg documented in this encounter Care Teams Resource Recovery Engineer Relationship Specialty Start Date End Date Marques Martinez MD [address] [place] [address] PCP - General 04/01/10 04/08/11 documented as of this encounter
--- OUTSIDE RECORDS SUMMARY | 2024-01-07 08:18 | XMS_ITS | Encounter Summary ---
Author [facility] [place] [address] Care Team Providers Care Commercial Interior Designer Name Role Phone Marques Martinez MD Primary Care Provider Encounter Details Date Type Department Care Team (Late st Contact Info) Description 09/11/2010 Orders [place] [address] Jairon Fenton MD [facility] DR [place] [address] Fracture of patella, left, closed (Primary Dx) [...] AM EDT Hospital Encounter [place] [address] Arrived documented as of this encounter Visit Diagnoses Diagnosis Fracture of patella, left, closed- Primary Closed fracture of patella documented in this encounter Care Teams Commercial Interior Designer Relationship Specialty Start Date End Date Marques Martinez MD [address] [place] [address] PCP - General 04/01/10 04/08/11 documented as of this encounter
--- OUTSIDE RECORDS SUMMARY | 2024-01-07 08:18 | XMS_ITS | Encounter Summary ---
Author Organization [facility] [place] [address] Care Team Providers Care Director Of Early Childhood Education Name Role Phone Marques Martinez MD Primary Care Provider [phone] Encounter Details Date Type Department Care Team (Late st Contact Info) Description 06/12/2010 2:10 PM EST Office [place] [address] Jairon Fenton MD [facility] DR [place] [address] Discharge Disposition: Home Social History Tobacco Use [...] AM EDT Hospital Encounter Non-[place] [address] Arrived documented as of this encounter Visit Diagnoses Not on filedocumented in this encounter Care Teams Director Of Early Childhood Education Relationship Specialty Start Date End Date Marques Martinez MD [address] [place] [address] PCP - General 04/01/10 04/08/11 documented as of this encounter
--- OUTSIDE RECORDS SUMMARY | 2024-01-07 08:18 | XMS_ITS | Encounter Summary ---
Author Organization [facility] Address [address] [place] [address] Care Team Providers Care Floor Service Worker Spring Name Role Phone Unknown, Provider Primary Care Provider [phone] Clem Olvera MD Primary Care Provider [phone] Encounter Details Date Type Department Care Team (Late st Contact Info) Description 11/29/2015 Pre-Procedure Orders Encounter [facility] [address] [place], [place] [id number] Navdeep Hurd MD [address] [place] [address] [address] Social History Tobacco Use Types [...] Patient: Nabil Streeter. Attending: Dr. Moran Scrrajinder Hair Spring Winder: Dr. Fantasma Dhillon History/indication: The patient is [...] Patient: Nabil Streeter Attending: Dr. Dean Bailey Hair Spring Winder: Dr. Fantasma Dhillon History/indication: The patient is [...] filedocumented in this encounter Care Teams Floor Service Worker Spring Relationship Specialty Start Date End Date Unknown, Provider, PCP - General 12/06/12 12/17/15 Clem Olvera MD [address] [place] [address] PCP - General 12/18/15 documented as of this encounter
--- OUTSIDE RECORDS SUMMARY | 2024-01-07 08:18 | XMS_ITS | Encounter Summary ---
[place] [address] Care Team Providers Care Biology Laboratory Assistant Name Role Phone Marques Martinez MD Primary Care Provider [phone] Encounter Details Date Type Department Care Team (Late st Contact Info) Description 06/12/2010 2:00 PM EST Procedure visit [place] [address] Social History Tobacco Use Types Packs/Day Years [...] AM EDT Hospital Encounter [place] [address] Arrived documented as of this encounter Visit Diagnoses Not on filedocumented in this encounter Care Teams Biology Laboratory Assistant Relationship Specialty Start Date End Date Marques Martinez MD [address] [place] [address] PCP - General 04/01/10 04/08/11 documented as of this encounter
--- OUTSIDE RECORDS SUMMARY | 2024-01-07 08:18 | XMS_ITS | Encounter Summary ---
Author [place] [address] Care Team Providers Care Direct Marketing Intern Name Role Phone Donny Cooper MD Primary Care Provider [phone] Encounter Details Date Type Department Care Team (Latest Contact Info) Description 04/03/2023 10:00 AM EST - 04/03/2023 11:59 PM [facility] Hospital Encounter Non[place] [address] Discharge Disposition: Home Social History Tobacco Use [...] AM EDT Hospital Encounter Non-[place] [address] Arrived documented as of this [...] filedocumented in this encounter Care Teams Direct Marketing Intern Relationship Specialty Start Date End Date Donny Cooper MD [address] [place] [address] PCP - General Family Medicine 02/25/19 documented as of this encounter
--- OUTSIDE RECORDS SUMMARY | 2024-01-07 08:18 | XMS_ITS | Encounter Summary ---
[place] [address] Care Team Providers Care Carbide Grinder Name Role Phone Donny Cooper MD Primary Care Provider [phone] Encounter Details Date Type Department Care Team [...] EDT Hospital Encounter Non-Invasive [place] [address] Arrived documented as of this encounter Visit Diagnoses Not on filedocumented in this encounter Care Teams Carbide Grinder Relationship Specialty Start Date End Date Donny Cooper MD [address] [place] [address] PCP - General Family Medicine 02/25/19 documented as of this encounter
--- OUTSIDE RECORDS SUMMARY | 2024-01-07 08:18 | XMS_ITS | Encounter Summary ---
[place] [address] Care Team Providers Care Videotape Recording Engineer Name Role Phone Donny Cooper MD Primary Care Provider [phone] Encounter Details Date Type Department Care Team (Latest Contact Info) Description 07/02/2023 10:00 AM EST - 07/02/2023 11:59 PM EST Hospital Encounter [place] [address] Discharge Disposition: Home Social History Tobacco Use [...] AM EDT Hospital Encounter [place] [address] Arrived documented as of this encounter Visit Diagnoses Not on filedocumented in this encounter Care Teams Videotape Recording Engineer Relationship Specialty Start Date End Date Donny Cooper MD [address] [place] [address] PCP - General Family Medicine 02/25/19 documented as of this encounter
--- OUTSIDE RECORDS SUMMARY | 2024-01-07 08:18 | XMS_ITS | Encounter Summary ---
[place] [address] Care Team Providers Care Spindle Sander Name Role Phone Donny Cooper MD Primary Care Provider [phone] Encounter Details Date Type Department Care Team (Latest Contact Info) Description 07/07/2022 10:00 AM EST - 07/07/2022 11:59 PM EST Hospital Encounter Non-[place] [address] Discharge Disposition: Home Social History Tobacco Use [...] AM EDT Hospital Encounter Non-[place] [address] Arrived documented as of this [...] on filedocumented in this encounter Care Teams Spindle Sander Relationship Specialty Start Date End Date Donny Cooper MD [address] [place] [address] PCP - General Family Medicine 02/25/19 documented as of this encounter
--- OUTSIDE RECORDS SUMMARY | 2024-01-07 08:18 | XMS_ITS | Encounter Summary ---
Author Organization [facility] [place] [address] Care Team Providers Care Manager Medical Device Name Role Phone Marques Martinez MD Primary Care Provider [phone] Encounter Details Date Type Department Care Team (Late st Contact Info) Description 05/01/2010 3:10 PM EST Office [place] [address] Jairon Fenton MD [facility] [place] [address] Discharge Disposition: Home Social History Tobacco Use [...] AM EDT Hospital Encounter Non-Invasive [place] [address] Arrived documented as of this encounter Visit Diagnoses Not on filedocumented in this encounter Care Teams Manager Medical Device Relationship Specialty Start Date End Date Marques Martinez MD [address] [place] [address] PCP - General 04/01/10 04/08/11 documented as of this encounter
--- OUTSIDE RECORDS SUMMARY | 2024-01-07 08:18 | XMS_ITS | Encounter Summary ---
[place] [address] Care Team Providers Care Wholesale Account Executive Name Role Phone Donny Cooper MD Primary Care Provider [phone] [phone] Encounter Details Date Type Department Care Team (Late st Contact Info) Description 03/17/2019 Telephone Cardiology at [address] [phone] Sheri Quinn LNA Social History [...] 11:46 AM EST Medication list reviewed with [facility] list. Please review with patient at next clinic visit. documented in this encounter Plan of Treatment Upcoming Encounters Date Type Department Care Team (Late st Contact Info) Description 02/02/2024 10:00 AM EDT Hospital Encounter [place] [address] Arrived documented as of this encounter Visit Diagnoses Not on filedocumented in this encounter Care Teams Wholesale Account Executive Relationship Specialty Start Date End Date Donny Cooper MD [address] [place] [address] PCP - General Family Medicine 02/25/19 documented as of this encounter
--- OUTSIDE RECORDS SUMMARY | 2024-01-07 08:18 | XMS_ITS | Encounter Summary ---
[place] [address] Care Team Providers Care Passenger Car Upholsterer Apprentice Name Role Phone Donny Cooper MD Primary Care Provider [phone] Encounter Details Date Type Department Care Team (Latest Contact Info) Description 04/08/2022 10:00 AM EST - 04/08/2022 11:59 PM [facility] Hospital Encounter [place] [address] Discharge Disposition: Home Social History Tobacco Use [...] AM EDT Hospital Encounter [place] [address] Arrived documented as of this [...] on filedocumented in this encounter Care Teams Passenger Car Upholsterer Apprentice Relationship Specialty Start Date End Date Donny Cooper MD [address] [place] [address] PCP - General Family Medicine 02/25/19 documented as of this encounter
--- OUTSIDE RECORDS SUMMARY | 2024-01-07 08:18 | XMS_ITS | Encounter Summary ---
[place] [address] Care Team Providers Care Natural Fabricator Name Role Phone Donny Cooper MD Primary Care Provider [phone] [phone] Encounter Details Date Type Department Care Team (Latest Contact Info) Description 08/06/2023 10:00 AM EDT - 08/06/2023 11:59 PM EDT Hospital Encounter Non-[place]vasive [place] [address] Discharge Disposition: Home Social History Tobacco Use [...] AM EDT Hospital Encounter Non-Invasive [place] [phone] Arrived documented as of this encounter Visit Diagnoses Not on filedocumented in this encounter Care Teams Natural Fabricator Relationship Specialty Start Date End Date Donny Cooper MD [address] [place] [address] PCP - General Family Medicine 02/25/19 documented as of this encounter
--- OUTSIDE RECORDS SUMMARY | 2024-01-07 08:18 | XMS_ITS | Encounter Summary ---
[place] [address] Care Team Providers Care Farm Product Purchaser Name Role Phone Donny Cooper MD Primary Care Provider [phone] Encounter Details Date Type Department Care Team (Latest Contact Info) Description 11/04/2023 10:00 AM EDT - 11/04/2023 11:59 PM EDT Hospital Encounter Non[place] [address] Discharge Disposition: Home Social History Tobacco Use [...] AM EDT Hospital Encounter Non-[place]vasive [place] [address] Arrived documented as of this encounter Procedures [...] on filedocumented in this encounter Care Teams Farm Product Purchaser Relationship Specialty Start Date End Date Donny Cooper MD [address] [place] [address] PCP - General Family Medicine 02/25/19 documented as of this encounter
--- OUTSIDE RECORDS SUMMARY | 2024-01-07 08:18 | XMS_ITS | Clinical Summary ---
Author Organization [facility] [place] [address] Care Team Providers Care Farm Adviser Name Role Phone Donny Cooper MD Primary Care Provider [phone] [phone] Allergies No known active allergies Medications Medication [...] Encounters Date Type Department Care Team Description 01/05/2024 Telephone Cardiology at [address] [phone] Kanika Shell 12/28/2023 Notes Only Cardiology at [address] [address] Kanika Shell 11/04/2023 10:00 AM EDT - 11/04/2023 11:59 PM EDT Hospital Encounter Non-[place]vasive [place] [phone] Discharge Disposition: Home from Last 3 Months [...] EDT Hospital Encounter Non-[place]vasive [place] [address] Arrived Health Maintenance Due Date Last Done Comments Tdap adult 08/19/1959 Tetanus vaccine 08/19/1959 Zoster vaccine (1 of 2) 1990 Advance Directive 08/19/1995 Pneumoccocal Vaccine: 65+ (2 of 2 - PCV) 05/04/2009 05/04/2008 Covid-19 Vaccine (1 - season) 2024 Influenza (Flu) vaccine (1 o f 1 - Influenza standard series) 01/03/2024 02/01/2010, 03/06/2006, 02/24/2005 Medical Devices Implanted Type Area Social Service Worker Device Identifier Shelf Expiration Date Model / Serial / Lot Mdt : [id number] : [id number] Implanted: (Quantity not on file) Cardiac Resynchronization Therapy - Defibrillator Chest [employer] - [id number] / [id number] / Care Teams Farm Adviser Relationship Specialty Start Date End Date Donny Cooper MD [address] [place], [place] [address] PCP - General Family Medicine 02/25/19
--- OUTSIDE RECORDS SUMMARY | 2024-01-07 08:18 | XMS_ITS | Encounter Summary ---
Author Organization [facility] Address [address] [place] [address] Care Team Providers Care Butcher Supervisor Name Role Phone Clem Olvera MD Primary Care Provider [phone] Reason for Referral * (Routine) - Closed Specialty Diagnoses / Procedures Referred By Pedro madera Referred To Contact Beatrice De La Garza NP [address] [place] [phone] Referral ID Status Reason Start Date Expiration Date V isits Requested Visits Authorized [id number] Closed Specialty Services Required 02/27/2016 1 1 Comments You must contact us if we have not contacted you or you have missed your scheduled appointment. If you have any nursing questions, please don't hesitate to call the Cardiac Arrhythmia Service at [facility] at or , extension [phone]. For any scheduling of appointments, please call [phone] or , extension [phone]. . * (Routine) - Closed Specialty Diagnoses / Procedures Referred By Pedro madera Referred To Contact Beatrice De La Garza NP [address] [phone] Referral ID Status Reason Start Date Expiration Date V isits Requested Visits Authorized [id number] Closed Specialty Services Required 02/27/2016 1 1 Comments You have a pre existing appointment with Dr. Olvera on March 05 at 2:00, please have Dr. Olvera check your incision at that visit. * (Routine) - Closed Specialty Diagnoses / Procedures Referred By Contbecca t Referred To Contact Beatrice De La Garza NP [address] [phone] Referral ID Status Reason Start Date Expiration Date V isits Requested Visits Authorized [id number] Closed Specialty Services Required 02/27/2016 1 1 [...] [facility] at [address] [facility] in [place] -Clinics are also held in [facility], and [place], [place] and [facility]. If you live in those areas, we will make arrangements for follow-up appointments in one of those clinics.. Encounter Details Date Type Department Care Team (Late st Contact Info) Description 02/27/2016 6:30 EDT - 02/28/2016 13:39 EDT Hospital Encounter [facility] Cardiac/Telemetry Unit [address] [place] [address] Gulshan Drummond MD PhD [address] [phone] Gulshan Montoya Sa, MD [address] [facility] [address] [place] [phone] AICD lead malfunction, subsequent encounter; ICD [...] EF of 20-25% status post silent inferior PA in the early . 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 He had heart failure symptoms that started around May 2013, when he was in [place], [place]. This triggered major cardiac workup including [...] then underwent a device upgrade to a CONCRETE MIXER OPERATOR HELPER-D device with biventricular pacing for his EF [...] been followed in cardiology outreach clinic at [facility] in [place]. Continued high pacing threshold on the epicardial [...] and plans to follow up with his Coat Feller in [place] in 6-8 weeks for which he will arrange once he has arrived in [place]. He has been provided with the implant [...] HGBA1C Discharge Follow Up Appointments Scheduled with [facility] Appointments Outside of [facility] We Will Schedule Studies We Will Schedule Appointments We Recommend but have not been Scheduled Beatrice De La Garza NP 02/27/2016 10:59 Associated attestation - Gulshan Montoya Sa, MD - 02/28/2016 1519 EDT Attending Attestation: I saw and evaluated the patient. I discussed the case with the resident/FACE WORKER/fellow and agree with the findings and plan as documented above. Gulshan bullock Sa, MD Cardiac Electrophysiology documented in this encounter Discharge Instructions * Appointments* Beatrice De La Garza NP - 02/27/2016 11:[address] Olvera on 03/05/16 at 2:00 as previously scheduled for a routine visit and for a check of your incision. Follow up with Giselle Hill NP at [facility] in May, you will be [...] Notes * Lou Alfonso RN - 02/28/2016 7159 EDT Pt awaiting discharge. IV and tele was removed by primary nurse. This RN administered flu shot and provided flu information sheet. AVS and medications reviewed by RN with patient and . AVS statedcoreg was 3.25mg BID, which pt states no, they must have copied it down wrong. I'm not doing that.We've been through this in [place]. It makes me pass out. RN suggested checking with team, which pt denied and states I wont take it twice a day. He did agree to review this medication with his paper cup machine tender and plans to remain on his home dosing, which was in the morning. He received dose this am. Ptleft via wheelchair with . * Beatrice Rodriguez - 02/28/2016 1329 EDT Brief visit with patient and as they were being discharged. Patient states he is independent in self care and home management. He feels well supported by friends and neighbors. Patient has Medicare and [facility]. Pharmacy is [facility] in [facility]. No needs identified at time of discharge. will provide transportation. Beatrice Rodriguez RN Case Manager #[id number] documented in this encounter H&P Notes * Navdeep Hurd MD - 02/27/2016 0830 EDT Cardiology Admitting H&P Admit Date: 02/27/2016 Date of Service: 02/27/2016 PCP: Clem Olvera Code Status: Full Code Chief Complaint: FINN, device battery depletion, high pacing threshold on epicardial lead HPI: 74-year-old man with coronary artery disease and ischemic cardiomyopathy status post silent inferior PA in the early . 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 He had heart failure symptoms that started around May 2013, when he was in [place], [place]. This triggered major cardiac workup including [...] point, his device was upgraded to a CONCRETE MIXER OPERATOR HELPER-D device with biventricular pacing. By the patient's [...] been followed in cardiology outreach clinic at [facility] in [place]. Continued high pacing threshold on the epicardial LV lead has caused a very rapid battery depletion. Dr. David Adams in [place] recommended against lead extraction and reimplant as [...] ??? Pacemaker insertion 2002 2013 second pacemaker [facility] Social History Family History Social History Substance Use Topics ??? Smoking status: Former Smoker Years: 35.00 Quit date: 1989 ??? Smokeless tobacco: Not on file ??? Alcohol use 6.6 oz/week 6 Cans of beer, 5 Glasses of wine per week , lives with , retired. Spends leong in [place]. Spends the chery in [place], [place]. Quit smoking in 1990. Has 2 [...] and ischemic cardiomyopathy status post silent inferior PA in the early . Also diagnosed with [...] point, his device was upgraded to a CONCRETE MIXER OPERATOR HELPER-D device with biventricular pacing with a surgically [...] EST) 03/12/2016 12:4 3 EST Scan 2 Jewelry Bench Worker PROCEDURE/MINOR JUDD GICAL ORDERABLES * ECG REPORT - SCANNED (03/04/2016 14:06 EDT) 03/04/2016 14:0 6 EDT Scan 2 Jewelry Bench Worker PROCEDURE/MINOR JUDD GICAL ORDERABLES * ECG REPORT - SCANNED (03/04/2016 14:06 EDT) 03/04/2016 14:0 6 EDT Scan 2 Jewelry Bench Worker PROCEDURE/MINOR JUDD GICAL ORDERABLES * IMPLANT RECORD - SCANNED (03/04/2016 14:06 EDT) 03/04/2016 14:0 6 EDT Scan 2 Jewelry Bench Worker PROCEDURE/MINOR JUDD GICAL ORDERABLES * ECG REPORT - SCANNED (03/01/2016 8:58 EDT) 03/01/2016 8:58 EDT Scan 2 Jewelry Bench Worker PROCEDURE/MINOR JUDD GICAL ORDERABLES * ECG REPORT - SCANNED (03/01/2016 8:58 EDT) 03/01/2016 8:58 EDT Scan 2 Jewelry Bench Worker PROCEDURE/MINOR JUDD GICAL ORDERABLES * CHEST PA [...] IMAGING ORDERABLES * HEMAGRAM (02/28/2016 5:44 EDT) [facility] WBC 9.84 4.0 - 10.4 K/cmm 02/28/2016 6:26 EDT [facility] RBC 4.42 4.36 - 5.78 M/cmm 02/28/2016 6:26 T [facility] Hemoglobin 14.2 13.8 - 17.3 gm/dl 02/28/2016 6:26 [facility] HCT 40.9 39.5 - 50.2 % 02/28/2016 6:26 [facility] MCV 93 81 - 95 fl 02/28/2016 6:26 [facility] MCH 32.1 27.6 - 33.0 pg 02/28/2016 6:26 [facility] MCHC 34.7 32.8 - 36.4 gm/dl 02/28/2016 6:26 [facility] RDW-CV 13.1 11.8 - 14.1 % 02/28/2016 6:26 [facility] RDW-SD 44.6 36.5 - 45.9 fl 02/28/2016 6:26 [facility] PLT 151 141 - 377 K/cmm 02/28/2016 6:26 [facility] MPV 11.2 9.5 - 12.7 fl 02/28/2016 6:26 [facility] Blood specimen (specimen) BLOOD SPECIMEN / Unknown 02/28/2016 5:44 EDT 02/28/2016 6:13 EDT Beatrice De La Garza NP HEMATOLOGY & PF4 ORDERABLES [facility] [address] [place] [address] * (ABNORMAL) CREATININE (02/28/2016 5:44 EDT) Creatinine 0.65(L) 0.66 - 1.25 mg/dl 02/28/2016 6:48 EDT [facility] GFR, Calculated 95 >60 ml/min/1.7 3m2 02/28/2016 6:48 EDT [facility] Comment: eGFR calculated using CKD-EPI equation for non Americans. Multiply eGFR by 1.16 for Americans. Blood specimen (specimen) BLOOD SPECIMEN / Unknown 02/28/2016 5:44 EDT 02/28/2016 6:13 EDT Beatrice De La Garza NP CHEMISTRY & B LOOD GAS ORDERABLES Performing Organization Address [facility]/ZIP Co de Phone Number [facility] [address] [place] [address] * BUN (02/28/2016 5:44 EDT) BUN 14 10 - 26 mg/dl 02/28/2016 6:48 EDT [facility] Blood specimen (specimen) BLOOD SPECIMEN / Unknown 02/28/2016 5:44 EDT 02/28/2016 6:13 EDT Beatrice De La Garza FACE WORKER CHEMISTRY & B LOOD GAS ORDERABLES Performing Organization Address [facility] Co de Phone Number [facility] [address] [place] [address] * ELECTROLYTES (02/28/2016 5:44 EDT) Sodium 138 136 - 145 mEq/L 02/28/2016 6:48 EDT [facility] Potassium 4.7 3.5 - 5.0 mEq/L 02/28/2016 6:48 EDT [facility] Chloride 104 96 - 110 mEq/L 02/28/2016 6:48 EDT [facility] CO2 25 22 - 32 mEq/L 02/28/2016 6:48 EDT [facility] Comment:Note new reference r hong 02/19/16 Blood specimen (specimen) BLOOD SPECIMEN / Unknown 02/28/2016 5:44 EDT 02/28/2016 6:13 EDT Beatrice De La Garza NP CHEMISTRY & B LOOD GAS ORDERABLES [facility] [address] [place] [address] * PORTABLE CHEST 1 VIEW (02/27/2016 12:46 [...] EDT) 02/27/2016 12:4 1 EDT Narrative [facility] EKG - 02/28/2016 8:57 EDT ? [facility] ? Test Date: ?2016-02-27 Pat Name: ? NABIL IGLESIAS ? Department: ?? H[facility] 5 ? Room: ? MW514 Gender: ? M ?Office Electrician: ?? [id number] : ?1940 ? Requested By: KAIN REED L Order Number: [id number] ? Reading MD: ?? BRAYAN CUENCA MD ? Measurements Intervals ?[place] ? Rate: ? 63 ? P: ?15 [...] Date: 2016-02-27 Pat Name: NABIL IGLESIAS Department: [place] [address] Room: [facility] Gender: M Office Electrician: [id number] : 1940 Requested By: KAIN Gallagher Order Number: [id number] Reading MD: BRAYAN CUENCA MD Measurements Intervals [place] Rate: 63 P: 15 AL: 159 QRS: 234 QRSD: 156 T: 15 QT: 479 QTc: 493 Interpretive Statements ELECTRONIC VENTRICULAR PACEMAKER Compared to ECG 02/27/2016 08:10:34 No significant changes I reviewed the tracing and have either agreed or edited the findings inthis report. Electronically Signed On 02-28-16 08:57:02 EDT by BRAYAN BEEBE. Gulshan Drummond MD PhD CARDIA C ECG ORDERABLES [facility] EKG * PROTIME (02/27/2016 8:45 EDT) Pro Time 12.3 10.3 - 13.1 secs 02/27/2016 9:10 EDT [facility] Comment: New prothrombin t josue range effective 01/29/16 I.N.R. 1.1 0.9 - 1.1 Ratio 02/27/2016 9:10 EDT [facility] Comment: Moderate Intensity Coumadin INR = 2.0-3.0 Adjustments in anticoagulant therapy dose should be based upon the INR and NOT the Pro Time. Blood specimen (specimen) BLOOD SPECIMEN / Unknown 02/27/2016 8:45 EDT 02/27/2016 8:54 EDT Gulshan Drummond MD PhD HEMATO LOGY & PF4 ORDERABLES [facility] [address] [place] [address] * HEMAGRAM (02/27/2016 8:45 EDT) WBC 6.47 4.0 - 10.4 K/cmm 02/27/2016 8:57 EDT [facility] RBC 4.51 4.36 - 5.78 M/cmm 02/27/2016 8:57 EDT [facility] Hemoglobin 14.7 13.8 - 17.3 gm/dl 02/27/2016 8:57 EDT [facility] HCT 41.7 39.5 - 50.2 % 02/27/2016 8:57 EDT [facility] MCV 93 81 - 95 fl 02/27/2016 8:57 EDT [facility] MCH 32.6 27.6 - 33.0 pg 02/27/2016 8:57 EDT [facility] MCHC 35.3 32.8 - 36.4 gm/dl 02/27/2016 8:57 T [facility] RDW-CV 13.1 11.8 - 14.1 % 02/27/2016 8:57 EDT [facility] RDW-SD 44.0 36.5 - 45.9 fl 02/27/2016 8:57 EDT [facility] PLT 176 141 - 377 K/cmm 02/27/2016 8:57 EDT [facility] MPV 10.7 9.5 - 12.7 fl 02/27/2016 8:57 EDT [facility] Blood specimen (specimen) BLOOD SPECIMEN / Unknown 02/27/2016 8:45 EDT 02/27/2016 8:54 EDT Gulshan Drummond MD PhD HEMATO LOGY & PF4 ORDERABLES [facility] [address] [place] [address] * ELECTROLYTES (02/27/2016 8:45 EDT) Sodium 142 136 - 145 mEq/L 02/27/2016 9:13 EDT [facility] Potassium 4.7 3.5 - 5.0 mEq/L 02/27/2016 9:13 EDT [facility] Chloride 103 96 - 110 mEq/L 02/27/2016 9:13 EDT [facility] CO2 27 22 - 32 mEq/L 02/27/2016 9:13 EDT [facility] Comment:Note new reference r hong 02/19/16 Blood specimen (specimen) BLOOD SPECIMEN / Unknown 02/27/2016 8:45 EDT 02/27/2016 8:54 EDT Gulshan Drummond MD PhD CHEMIS TRY & BLOOD GAS ORDERABLES Performing Organization Address [facility] de Phone Number [facility] [address] [place] [address] * CREATININE (02/27/2016 8:45 EDT) Creatinine 0.69 0.66 - 1.25 mg/dl 02/27/2016 9:13 EDT [facility] GFR, Calculated 93 >60 ml/min/1.7 3m2 02/27/2016 9:13 EDT [facility] Comment: eGFR calculated using CKD-EPI equation for non Americans. Multiply eGFR by 1.16 for Americans. Blood specimen (specimen) BLOOD SPECIMEN / Unknown 02/27/2016 8:45 EDT 02/27/2016 8:54 EDT Gulshan Drummond MD PhD CHEMIS TRY & BLOOD GAS ORDERABLES Performing Organization Address City/[facility] Co de Phone Number [facility] [address] [place] [address] * BUN (02/27/2016 8:45 EDT) BUN 17 10 - 26 mg/dl 02/27/2016 9:13 EDT [facility] Blood specimen (specimen) BLOOD SPECIMEN / Unknown 02/27/2016 8:45 EDT 02/27/2016 8:54 EDT Gulshan Drummond MD PhD CHEMIS TRY & BLOOD GAS ORDERABLES [facility] [address] [place] [address] * EKG 12-LEAD (02/27/2016 8:08 EDT) 02/27/2016 8:08 EDT Narrative [facility] EKG - 02/28/2016 9:01 EDT ? [facility] ? Test Date: ?2016-02-27 Pat Name: ? NABIL IGLESIAS ? Department: ?? [facility]iop[facility] ? Room: ? [id number] Gender: ? M ?Office Electrician: ?? [id number] : ?1940 ? Requested By: MARCIA Boo Order Number: [id number] ? Julia WRIGHT: ?? BRAYAN CUENCA MD ? Measurements Intervals ?[place] ? Rate: ? 69 ? P: ?147 [...] Date: 2016-02-27 Pat Name: NABIL IGLESIAS Department: [facility] Room: [id number] Gender: M Office Electrician: [id number] : 1940 Requested By: MARCIA Boo Order Number: [id number] Reading MD: BRAYAN CUENCA MD Measurements Intervals [place] Rate: 69 P: 147 AL: 134 QRS: -67 QRSD: 160 T: -59 QT: 434 QTc: 467 Interpretive Statements ELECTRONIC ATRIAL PACEMAKER ELECTRONIC VENTRICULAR PACEMAKER Compared to ECG 02/27/2016 08:08:46 No significant changes I reviewed the tracing and have either agreed or edited the findings inthis report. Electronically Signed On 02-28-16 09:01:04 EDT by BRAYNA BEEBE. Navdeep Hurd MD CARDIAC ECG ORD ERABLES [facility] EKG documented in this encounter Visit [...] Reason: Other - Comment: pt already took FORKLIFT OPERATOR, takes other meds at HS) 921 [...] Reason: Other - Comment: pt already took FORKLIFT OPERATOR, takes other meds at HS)2100 (Given - Provider: Mady Bruno RN) spironolactone (ALDACTONE) tablet 12.5 mg 12.5 mg, oral, DAILY, First dose on Thu02/27/16 at 1245, Until Discontinued, Routine 1306 (Not Given - Provider: Nneka Stuart RN - Reason: Other - Comment: pt already took FORKLIFT OPERATOR, takes other meds at HS)2102 (Given - Provider: Mady Bruno RN) tamsulosin (FLOMAX) capsule 0.4 mg 0.4 mg, oral, DAILY, First dose on Thu02/27/16 at 1245, Until Discontinued, Routine 1306 (Not Given - Provider: Nneka Stuart RN - Reason: Other - Comment: pt already took FORKLIFT OPERATOR, takes other meds at HS) 921 [...] Provider: Reina Onofre RN)0954 (Given - Provider: Renia Onofre RN)1008 (Given - Provider: Reina Onofre [...] 02/02 documented in this encounter Care Teams Butcher Supervisor Relationship Specialty Start Date End Date Clem Olvera MD [address] [place] [address] PCP - General 12/18/15 documented as of this encounter
--- OUTSIDE RECORDS SUMMARY | 2024-01-07 08:18 | XMS_ITS | Encounter Summary ---
Author Organization [facility] Address [address] [place] [address] Care Team Providers Care Rope Walker Name Role Phone Clem Olvera MD Primary Care Provider [phone] Encounter Details Date Type Department Care Team (Late st Contact Info) Description 03/16/2019 Abstract [facility] [address] [place] [address] Ronal Avelar, JADON AV block, 2nd degree [...] Modality Device Narrative 03/24/2019 10:30 EST [facility] [place] Device Visit Electron Microscopist: [email or web address] Device Type: CREATIVE SERVICES MANAGER-D Service: Remote ? Indication: ICMO Battery [...] Miguel Ángel George APRN Miguel Ángel George BUSINESS INFO CONSULTANT CV IMPLANTABLE CARDI AC DEVICE documented in this encounter Visit Diagnoses Diagnosis AV block, 2nd degree- Primary Other second degree atrioventricular block documented in this encounter Care Teams Rope Walker Relationship Specialty Start Date End Date Clem Olvera MD [address] [address] PCP - General 12/18/15 documented as of this encounter
--- OUTSIDE RECORDS SUMMARY | 2024-01-07 08:18 | XMS_ITS | Encounter Summary ---
Author Organization [facility] [place] [address] Care Team Providers Care Squirrel Worker Name Role Phone Clem Olvera MD Primary Care Provider Reason for Visit * Reason Comments Follow Up Fracture SP PATELLA FX DO12/12 DOI 03/30/10 Encounter Details Date Type Department Care Team (Late st Contact Info) Description 04/09/2011 1:30 PM EST Office [place] [address] Jairon Gustafson MD [facility] [place] [address] Jose Francisco eBe PA [facility] [place] [address] Patella fracture (Primary Dx) Discharge Disposition: Home [...] AM EDT Hospital Encounter [place] [address] Arrived documented as of this encounter Visit Diagnoses Diagnosis Patella fracture- Primary Closed fracture of patella documented in this encounter Care Teams Squirrel Worker Relationship Specialty Start Date End Date Clem Olvera MD [address] [place] [address] PCP - General 04/09/11 02/24/19 documented as of this encounter
--- OUTSIDE RECORDS SUMMARY | 2024-01-07 08:18 | XMS_ITS | Encounter Summary ---
Author Organization [facility] Address [address] [place] [address] Care Team Providers Care Data Center Architect Name Role Phone Clem Olvera MD Primary Care Provider [phone] Reason for Visit * Reason Onset Date Comments Appointment Related 10/23/2016 Check for fo llow up of pacer Encounter Details Date Type Department Care Team ([facility] Contact Info) Description 10/23/2016 Telephone [facility] Cardiology - [address] [place] [address] Pacemaker, Pace Appointment Related (Check [...] that Nabil had his pacemaker checked in [place] where they are for the winter. They have some back and are being followed by Dr. Hurd at [facility]. documented in this encounter Plan of Treatment Not on file documented as of this encounter Visit Diagnoses Not on filedocumented in this encounter Care Teams Data Center Architect Relationship Specialty Start Date End Date Clem Olvera MD [address] [place] [address] PCP - General 12/18/15 documented as of this encounter
--- OUTSIDE RECORDS SUMMARY | 2024-01-07 08:18 | XMS_ITS | Encounter Summary ---
Author Organization [facility] [place] [address] Care Team Providers Care Bobbin Washer Name Role Phone Donny Cooper MD Primary Care Provider [phone] Encounter Details Date Type Department Care Team (Latest Contact Info) Description 10/03/2022 10:00 AM EDT Office Visit Cardiology at [address] [address] [place] No [place] [facility] [place] [address] Cardiomyopathy, primary; Presence of cardiac resynchronization therapy defibrillator (MONOGRAM OPERATOR-D); Diaphragmatic stimulation by cardiac pacemaker, initial [...] original note were not included. Cardiac Device MONOGRAM OPERATOR-D Programming Evaluation Nabil Iglesias [id number] 10/03/2022 History: Mr. Iglesias is a pleasant [...] OFF Pacing Mode: DDD 60/130/120 Presenting EGMs: -BP/-COPY PREPARER Underlying Rhythm: CHB with no obvious escape [...] AM EDT Hospital Encounter [place] [address] Arrived documented as of this encounter Procedures Procedure Name Priority Date/Time Associated Diagnosis Comments EKG 12-LEAD Routine 10/03/2022 11:00 AM EDT Cardiomyopathy, primary Presence of cardiac resynchronization therapy defibrillator (MONOGRAM OPERATOR-D) Diaphragmatic stimulation by cardiac pacemaker, initial encounter documented in this encounter Results * EKG 12 Lead (10/03/2022 11:00 AM EDT) Ventricular rate 74 BPM MUSE SYSTEM Atrial Rate 74 BPM MUSE SYSTEM P-R Interval 154 ms MUSE SYSTEM QRS Duration 162 ms MUSE SYSTEM Q-T Interval 470 ms MUSE SYSTEM QTC Calculated (Bezet) 521 ms MUSE SYSTEM Calculated P [place] 30 degrees MUSE SYSTEM Calculated R [place] -98 degrees MUSE SYSTEM Calculated T [place] 41 degrees MUSE SYSTEM INTERPRETATION Atrial-sense d [...] cardiomyopathies Presence of cardiac resynchronization therapy defibrillator (MONOGRAM OPERATOR-D) Diaphragmatic stimulation by cardiac pacemaker, initial encounter documented in this encounter Care Teams Bobbin Washer Relationship Specialty Start Date End Date Donny Cooper MD [address] [place] [address] PCP - General Family Medicine 02/25/19 documented as of this encounter
--- OUTSIDE RECORDS SUMMARY | 2024-01-07 08:18 | XMS_ITS | Encounter Summary ---
Author Organization [facility] [place] [address] Care Team Providers Care Technical Recruiter Name Role Phone Marques Martinez MD Primary Care Provider [phone] Encounter Details Date Type Department Care Team (Late st Contact Info) Description 10/09/2010 11:35 AM EDT - 10/09/2010 11:59 PM EDT Hospital Encounter XRay at [address] [place] [id number] Social History Tobacco Use Types Packs/Day Years [...] AM EDT Hospital Encounter Non-Invasive Cardiology Lab [place] [address] Arrived documented as of this encounter Visit Diagnoses Not on filedocumented in this encounter Care Teams Technical Recruiter Relationship Specialty Start Date End Date Marques Martinez MD [address] [place] [address] PCP - General 04/01/10 04/08/11 documented as of this encounter
--- OUTSIDE RECORDS SUMMARY | 2024-01-07 08:18 | XMS_ITS | Encounter Summary ---
Author Organization [facility] Address [address] [place] [address] Care Team Providers Care Child Care Provider Name Role Phone Unavailable Primary Care Provider Unavailabl e Encounter Details Date Type Department Care Team (Late st Contact Info) Description 12/02/2012 Results Only [facility] Laboratory Services - [facility] [place] [address] [place] [address] Satinder Edwards MD [address] [place] [address] Social History Tobacco Use Types Packs/Day Years [...] ? NABIL IGLESIAS ? Accession #: ? [id number] ? : ? 1940 (Age: 72) ??M [...] PATHOLOGY ORDERABLE S Performing Organization Address City/State/[facility] Co de Phone Number DIVYA BERRY [address] [place] [address] documented in this encounter Visit Diagnoses Not on filedocumented in this encounter
--- OUTSIDE RECORDS SUMMARY | 2024-01-07 08:18 | XMS_ITS | Encounter Summary ---
[place] [address] Care Team Providers Care Clay Temperer Name Role Phone Donny Cooper MD Primary Care Provider [phone] Encounter Details Date Type Department Care Team (Late st Contact Info) Description 01/05/2024 Telephone Cardiology at [address] [address] Kanika Shell Social History Tobacco Use Types [...] encounter Miscellaneous Notes * Telephone Encounter - Kanika Shell - 01/05/2024 2:05 PM EDT Patient is having trouble with his Medtronic home monitor for his ICD. I have sent him a new one with instructions to send his old one back in the postage paid envelope provided. documented in this encounter Plan of Treatment Upcoming Encounters Date Type Department Care Team (Late st Contact Info) Description 02/02/2024 10:00 AM EDT Hospital Encounter [place] [address] Arrived documented as of this encounter Visit Diagnoses Not on filedocumented in this encounter Care Teams Clay Temperer Relationship Specialty Start Date End Date Donny Cooper MD [address] [place] [address] PCP - General Family Medicine 02/25/19 documented as of this encounter
--- OUTSIDE RECORDS SUMMARY | 2024-01-07 08:18 | XMS_ITS | Encounter Summary ---
Author Organization [facility] [place] [address] Care Team Providers Care Grievance And Appeals Coordinator Name Role Phone Donny Cooper MD Primary Care Provider [phone] Encounter Details Date Type Department Care Team (Latest Contact Info) Description 06/13/2020 12:35 PM EST - 06/13/2020 11:59 PM EST Hospital Encounter Non-Invasive [place] [address] Alber Seals MD [facility] [place] [address] Cardiomyopathy, primary Discharge Disposition: Home Social History [...] AM EDT Hospital Encounter Non-Invasive [place] [address] Arrived documented as of this encounter Procedures Procedure Name Priority Date/Time Associated Diagnosis Comments ICD INTERROGATION 3 MONTH Routine 06/13/2020 12:36 PM EST Cardiomyopathy, primary documented in this encounter Results * ICD INTERROGATION 3 MONTH (06/13/2020 12:36 PM EST) Anatomical Region Laterality Modality Other Narrative 06/14/2020 10:38 AM EST Cardiac Device Remote Monitoring Report Summary Medtronic Dodreams 06/14/20 Device: COPY CHIEF-D Model: VIVA QUAD Battery: 2.96 v, estimated longevity 3 years, 11 months Pacing percentage: 78% ventricular paced Events: The presenting rhythm is atrial paced with biventricular pacing and frequent ventricular premature contractions No significant arrhythmias Impression Normal device function; suboptimal COPY CHIEF pacing likely secondary to frequent PVCs. Should consider in clinic follow-up for further evaluation Follow Up As per schedule - in-clinic and remote ALBER SEALS MD Alber Seals MD IMPLANTABLE CARDIAC DEVICE documented in this encounter Visit Diagnoses Diagnosis Cardiomyopathy, primary Other primary cardiomyopathies documented in this encounter Care Teams Grievance And Appeals Coordinator Relationship Specialty Start Date End Date Donny Cooper MD [address] [place] [address] PCP - General Family Medicine 02/25/19 documented as of this encounter
--- OUTSIDE RECORDS SUMMARY | 2024-01-07 08:18 | XMS_ITS | Encounter Summary ---
Author Organization [facility] Address [address] [place] [address] Care Team Providers Care Health Advisor Name Role Phone Clem Olvera MD Primary Care Provider [phone] Reason for Visit * Reason Onset Date Comments Other 04/04/2019 [place] Pacer [place] [facility] Encounter Details Date Type Department Care Team (Late st Contact Info) Description 04/04/2019 Telephone [facility] [address] [place] [address] Giselle Hill, MONEY MARKET CLERK Other (Transfer request for Pacer Care at [facility] Social History Tobacco Use Types Packs/Day Years [...] 04/04/2019 1503 EST I went into the [place] acquired by [employer] and released pt to [facility] Pacer Clinic as requested. * Telephone Encounter - Suze Reynoso - 04/04/2019 1342 EST PT WILL BE HAVING HIS PACER CARE DONE AT [facility], PLEASE RELEASE HIS REMOTE MONITORING SO THAT THEY CAN PICK IT UP documented in this encounter Plan of Treatment Not on file documented as of this encounter Visit Diagnoses Not on filedocumented in this encounter Care Teams Health Advisor Relationship Specialty Start Date End Date Clem Olvera MD [address] [place] [address] PCP - General 12/18/15 documented as of this encounter
--- OUTSIDE RECORDS SUMMARY | 2024-01-07 08:18 | XMS_ITS | Encounter Summary ---
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 Procedures IMPLANTABLE CARDIAC DEFIBRILLATOR PROCEDURE Navdeep Hurd MD [address] [place], [place] [address] [address] [place] [address] Referral ID Status Reason Start Date Expiration Date Visits Re quested Visits Authorized [id number] Closed 02/13/2016 1 1 Encounter Details Date Type Department Care Team (Latest Contact Info) Description 02/13/2016 Pre-Procedure Orders Encounter [facility] [address] [place], [place] [address] Navdeep Hurd [facility] [address] [facility] [address] [place] [address] ICD (implantable cardioverter-defibril lator) battery [...] EDT Narrative 02/27/2016 15:17 EDT *Cardiology* [address] [place] [address] Lead Revision (Report amended ) Patient: Nabil Iglesias ?Study Date: ?02/27/2016 ? Accession #: ? [id number] : ? 1940 Referring: Clem Olvera Attending: [...] wire a Nick MENDOZAW 6F ([facility]) 6 mm-40 mm balloon dilation still could [...] Venograms were performed in the MOORE and [place] projections and a suitable mid-lateral LV branch [...] fascia. The leads were connected to a OUTBOARD MOTOR TESTER-D device. Device and Lead detail in table [...] Implanted device: Medtronic - Viva Quad XT OUTBOARD MOTOR TESTER-D DF4 - Serial number: [id number] Explanted device: Medtronic - Viva XT OUTBOARD MOTOR TESTER-D DF4 - Serial number: [id number]. LEAD PARAMETERS + + + + + [...] + + + + + Serial number [id number] ? [id number] ?? [id number] ?? [id number] ? + + + + [...] Gulshan Drummond MD - 05/12/2016 *Cardiology* [address] [place] [address] Lead Revision (Report amended ) Patient: Nabil [...] an 0.35 glide wire [facility] 6[facility] ([facility]) 6 mm-40 mm balloon dilation still could [...] Venograms were performed in the MOORE and [place] projections and a suitable mid-lateral LV branch [...] fascia. The leads were connected to a OUTBOARD MOTOR TESTER-D device. Device and Lead detail in table [...] Implanted device: Medtronic - Viva Quad XT OUTBOARD MOTOR TESTER-D DF4 - Serial number: [id number] Explanted device: Medtronic - Viva XT OUTBOARD MOTOR TESTER-D DF4 - Serial number: [id number]. LEAD PARAMETERS + + + + + + Lead # 1 2 3 4 + + + + + + Chamber RA RV LV LV + + + + + + Date 07/19/2002 07/18/2013 02/27/2016 07/18/2013 implanted + + + + + + Model St. Esa Medtronic Medtronic Enpath information [id number] Attain Epicardial Performa 4298 + + + + + + Serial number [id number] + + + + + + [...] situ documented in this encounter Care Teams Rn Ortho Relationship Specialty Start Date End Date Clem Olvera MD [address] [place] [address] PCP - General 12/18/15 documented as of this encounter
--- OUTSIDE RECORDS SUMMARY | 2024-01-07 08:18 | XMS_ITS | Encounter Summary ---
[place] [address] Care Team Providers Care Compliance Review Officer Name Role Phone Donny Cooper MD Primary Care Provider [phone] Encounter Details Date Type Department Care Team (Late st Contact Info) Description 06/14/2020 Telephone Cardiology at [address] [address] Nhung Briggs Social History Tobacco Use Types [...] He would like to be seen at [facility]. Email sent to Brittaney Hernandez at [facility] asking her to reach out to pt to set up the appt with either Dr. Arguelles or LANG Albert. Nhung Allen Electrophysiology Scheduling [id number] option 2 documented in this encounter Plan of Treatment Upcoming Encounters Date Type Department Care Team (Late st Contact Info) Description 02/02/2024 10:00 AM EDT Hospital Encounter Non[place] [address] Arrived documented as of this encounter Visit Diagnoses Not on filedocumented in this encounter Care Teams Compliance Review Officer Relationship Specialty Start Date End Date Donny Cooper MD [address] [place] [address] PCP - General Family Medicine 02/25/19 documented as of this encounter
--- OUTSIDE RECORDS SUMMARY | 2024-01-07 08:18 | XMS_ITS | Encounter Summary ---
Author Organization [facility] Address [address] [place] [address] Care Team Providers Care Turbine Inspector Name Role Phone Unavailable Primary Care Provider Unavailabl e Encounter Details Date Type Department Care Team (Late st Contact Info) Description 05/06/2001 Results Only [facility] conversion [address] [place] [address] Hernandez Partida MD [address] [place] [address] Social History Tobacco Use Types Packs/Day Years [...] is submitted entirely in cassette (B). ??(Naty Caal)/[facility] End of Report [facility] 05/06/2001 05/07/2001 9:2 5 EST Hernandez Partida MD PATHOLOGY ORDERABLES [facility] [address] [place] [address] documented in this encounter Visit Diagnoses Not on filedocumented in this encounter
--- OUTSIDE RECORDS SUMMARY | 2024-01-07 08:19 | XMS_ITS | Encounter Summary ---
Author Organization [facility] [place] [address] Care Team Providers Care Broadcast Journalist Name Role Phone Marques Martinez MD Primary Care Provider [phone] Encounter Details Date Type Department Care Team (Late st Contact Info) Description 03/30/2010 [place] [address] Javier Barajas MD [facility] [place] [address] Social History Tobacco Use Types Packs/Day Years [...] EDT Hospital Encounter Non-Invasive [place] [address] Arrived documented as of this encounter Procedures [...] AM EST Jairon Fenton MD CHE[facility]STRY ORDERABLES [facility] * (ABNORMAL) CREATININE, SERUM (04/01/2010 6:09 [...] Fenton MD CHEMISTRY ORDERABLES Performing Organization Address [facility] de Phone Number [facility]ER [facility] * BUN (04/01/2010 6:09 AM EST) Blood Urea Nitrogen 12 10 - 20 mg/dL [facility] Blood specimen (specimen) 04/01/2010 6:09 AM EST 04/01/2010 6:09 AM EST Jaiorn Fenton MD CHEMISTRY ORDERABLES Performing Organization Address [facility] de Phone Number CERNER MILLENNIUM * [...] MD HEMATOLOGY ORDERABLE S Performing Organization Address [facility] de Phone Number CERNER MILLENNI[facility] * [...] Fenton MD CHEMISTRY ORDERABLES Performing Organization Address [facility] Phone Number CERIVIS MILLENNIUM * ELECTROLYTE PANEL (03/30/2010 6:05 PM EST) Pathologist [facility] Sodium 135 135 - 145 mmol/L CERNER [...] Fenton MD CHEMISTRY ORDERABLES Performing Organization Address [facility] Co de Phone Number CERIVIS MILLENNIUM * CREATININE, SERUM (03/30/2010 6:05 PM EST) Creatinine 0.87 0.80 - 1.50 mg/dL [facility] Est Glomerular Filtration Rate >60 >=60 [facility] Comment: The National Kidney Disease [...] Urea Nitrogen 18 10 - 20 mg/dL [facility] Blood specimen (specimen) 03/30/2010 6:05 PM EST 03/30/2010 6:13 PM EST Jairon Fenton MD CHEMISTRY ORDERABLES Performing Organization Address [facility] de Phone Number DEJA SEGOVIA * APTT (03/30/2010 6:05 PM EST) Partial Thromboplastin Time 26 25 - 37 sec [facility] Comment: Recommended therapeutic PTT range for full dose unfractionated heparin is 80-114 seconds. Blood specimen (specimen) 03/30/2010 6:05 PM EST 03/30/2010 6:14 PM EST Jairon Fenton MD HEMATOLOGY ORDERABLE S Performing Organization Address [facility] Phone Number DEJA SEGOVIA * PROTIME-INR (03/30/2010 6:05 PM EST) Prothrombin Time 14.2 12.3 - 14.7 sec [facility] Comment: [facility] Transfusion Committee Guidelines: INR less than 2.0, PTT less than OR equal to 43.5 seconds, or Fibrinogen greater than or equal to 100 mg/dl indicate adequate procoagulant activity for hemostasis in patients without underlying bleeding disorders. International Normalization Ratio 1.1 0.9 - 1.1 [facility] Blood specimen (specimen) 03/30/2010 6:05 PM EST 03/30/2010 6:14 PM EST Jairon Fenton MD HEMATOLOGY ORDERABLE S Performing Organization Address [facility] de Phone Number DEJA SEGOVIA * [...] Standard Deviation 44.2 35.0 - 46.0 fL [facility] RDW coefficient of variation 13.1 10.9 - 14.4 % [facility] Mean Platelet Volume 10.6 9.0 - 12.0 fL [facility] Blood specimen (specimen) 03/30/2010 6:05 PM EST 03/30/2010 6:13 PM EST Jairon Fenton MD HEMATOLOGY ORDERABLE S Performing Organization Address [facility] Co de Phone Number [facility] * REFLEX LAB-ANTIBODY SCREEN (03/30/2010 3:17 PM EST) [facility] Ab Screen Interp Negative [facility] Expires at [id number] on: [id number] [facility] Blood specimen (specimen) 03/30/2010 3:17 PM EST 03/30/2010 3:17 PM EST Javier Barajas MD BLOOD BANK LAB ORDER PRECIOUS Performing Organization Address [facility] Co de Phone Number [facility] * REFLEX LAB-ABO/RH (03/30/2010 3:17 PM EST) [facility] ABORH Type A Pos [facility] Blood specimen (specimen) 03/30/2010 3:17 PM EST 03/30/2010 3:17 PM EST Javier Barajas MD BLOOD BANK LAB ORDER PRECIOUS Performing Organization Address [facility] Co de Phone Number [facility] * ELECTROLYTE PANEL (03/30/2010 2:50 PM EST) [facility] Sodium 135 135 - 145 mmol/L [facility] Potassium 4.3 3.5 - 5.0 mmol/L [facility] Comment: Please note: ??Patients with [...] Barajas MD CHEMISTRY ORDERABLES Performing Organization Address [facility] Phone Number [facility] * BUN (03/30/2010 2:50 PM EST) Blood Urea Nitrogen 18 10 - 20 mg/dL [facility] Blood specimen (specimen) 03/30/2010 2:50 PM EST 03/30/2010 3:05 PM EST Javier Barajas MD CHEMISTRY ORDERABLES Performing Organization Address [facility] Phone Number [facility] * GLUCOSE, RANDOM (03/30/2010 2:50 PM EST) Glucose 95 <=199 mg/dL [facility] Comment:Diabetes: >=200 mg/d L plus symptoms Blood specimen (specimen) 03/30/2010 2:50 PM EST 03/30/2010 3:05 PM EST Javier Barajas MD CHEMISTRY ORDERABLES Performing Organization Address [facility] Phone Number [facility] * APTT (03/30/2010 2:50 PM EST) Partial Thromboplastin Time 25 25 - 37 sec [facility] Comment: Recommended therapeutic PTT range for full dose unfractionated heparin is 80-114 seconds. Blood specimen (specimen) 03/30/2010 2:50 PM EST 03/30/2010 3:06 PM EST Javier Barajas MD HEMATOLOGY ORDERABLE S Performing Organization Address [facility] Phone Number [facility] * PROTIME-INR (03/30/2010 2:50 PM EST) Prothrombin Time 14.1 12.3 - 14.7 sec [facility] Comment: [facility] Transfusion Committee Guidelines: INR less than [...] on filedocumented in this encounter Care Teams Broadcast Journalist Relationship Specialty Start Date End Date Marques Martinez MD [address] [place] [address] PCP - General 04/01/10 04/08/11 documented as of this encounter
[2024-01-07 08:24] VITALS: BP 145/82; PULSE 82
--- OUTSIDE RECORDS SUMMARY | 2024-01-12 08:25 | XMS_ITS | Encounter Summary ---
[place] [address] Care Team Providers Care Middle School Assistant Principal Name Role Phone Donny Cooper MD Primary Care Provider [phone] Encounter Details Date Type Department Care Team (Latest Contact Info) Description 04/03/2023 10:00 AM EST - 04/03/2023 11:59 PM [facility] Hospital Encounter Non-Invasive [place] [address] Discharge Disposition: Home Social History Tobacco Use [...] AM EDT Hospital Encounter Non-Invasive [place] [address] Arrived documented as of this [...] on filedocumented in this encounter Care Teams Middle School Assistant Principal Relationship Specialty Start Date End Date Donny Cooper MD [address] [place] [address] PCP - General Family Medicine 02/25/19 documented as of this encounter
--- OUTSIDE RECORDS SUMMARY | 2024-01-12 08:25 | XMS_ITS | Encounter Summary ---
[place] [address] Care Team Providers Care Orchestra Musician Name Role Phone Donny Cooper MD Primary Care Provider [phone] Encounter Details Date Type Department Care Team (Latest Contact Info) Description 01/03/2023 10:00 AM EDT - 01/03/2023 11:59 PM EDT Hospital Encounter [place] [address] Discharge Disposition: Home Social History Tobacco Use [...] AM EDT Hospital Encounter [place] [address] Arrived documented as of this encounter Procedures [...] on filedocumented in this encounter Care Teams Orchestra Musician Relationship Specialty Start Date End Date Donny Cooper MD [address] [place] [address] PCP - General Family Medicine 02/25/19 documented as of this encounter
--- OUTSIDE RECORDS SUMMARY | 2024-01-12 08:25 | XMS_ITS | Referral Summary ---
Author Organization [facility] Address [address] [place] [address] Care Team Providers Care Dolphin Researcher Name Role Phone Clem Olvera MD Primary Care Provider [phone] Allergies No known active allergies Medications Medication [...] Advance Directives For more information, please contact: [phone] * Full Code (Latest Code Status on File) Date Activated Date Inactivated Comments 02/27/2016 8:49 02/28/2016 15:40 Question Answer Comments Reason for decision includes: Full code consistent with overall plan of care Who participated in the discussion? Not Discusse d Care Teams Dolphin Researcher Relationship Specialty Start Date End Date Clem Olvera MD [address] [place] [address] [id number] PCP - General 12/18/15
--- OUTSIDE RECORDS SUMMARY | 2024-01-12 08:25 | XMS_ITS | Encounter Summary ---
Author Organization [facility] Address [address] [place] [address] Care Team Providers Care Clinical Interviewer Name Role Phone Clem Olvera MD Primary Care Provider [phone] Reason for Visit * Reason Onset Date Comments Other 04/04/2019 Transfer [place] for Pacer [place] [facility] Encounter Details Date Type Department Care Team (Late st Contact Info) Description 04/04/2019 Telephone [facility] [place] [address] [place] [address] Giselle Hill, ACCOUNTANT Other (Transfer request for Pacer Care at [facility] Social History Tobacco Use Types Packs/Day Years [...] 04/04/2019 1503 EST I went into the [employer] Website and released pt to [facility] as requested. * Telephone Encounter - Suze Reynoso - 04/04/2019 1342 EST PT WILL BE HAVING HIS PACER CARE DONE AT [facility], PLEASE RELEASE HIS REMOTE MONITORING SO THAT THEY CAN PICK IT UP documented in this encounter Plan of Treatment Not on file documented as of this encounter Visit Diagnoses Not on filedocumented in this encounter Care Teams Clinical Interviewer Relationship Specialty Start Date End Date Clem Olvera MD [address] [place] [id number] PCP - General 12/18/15 documented as of this encounter
--- OUTSIDE RECORDS SUMMARY | 2024-01-12 08:25 | XMS_ITS | Encounter Summary ---
[place] [address] Care Team Providers Care Pattern Weaver Name Role Phone Donny Cooper MD Primary Care Provider [phone] Encounter Details Date Type Department Care Team [...] AM EDT Hospital Encounter Non-[place]vasive [place] [address] Arrived documented as of this encounter Visit Diagnoses Not on filedocumented in this encounter Care Teams Pattern Weaver Relationship Specialty Start Date End Date Donny Cooper MD [address] [place] [address] PCP - General Family Medicine 02/25/19 documented as of this encounter
--- OUTSIDE RECORDS SUMMARY | 2024-01-12 08:25 | XMS_ITS | Encounter Summary ---
Author Organization [facility] Address [address] [place] [address] Care Team Providers Care Master At Arms Name Role Phone Unavailable Primary Care Provider Unavailabl e Encounter Details Date Type Department Care Team (Late st Contact Info) Description 12/02/2012 Results Only [facility] Laboratory Services - [facility] ([facility] [address] [place] [address] [id number] Satinder Edwards MD [address] [place] [id number] Social History Tobacco Use Types Packs/Day Years [...] ? NABIL IGLESIAS ? Accession #: ? [id number] ? : ? 1940 (Age: 72) ??M [...] Co de Phone Number [facility] [address] [place] [address] documented in this encounter Visit Diagnoses Not on filedocumented in this encounter
--- OUTSIDE RECORDS SUMMARY | 2024-01-12 08:25 | XMS_ITS | Encounter Summary ---
Author Organization [facility] Address [address] [place] [address] Care Team Providers Care 3D Designer Name Role Phone Clem Olvera MD Primary Care Provider [phone] Encounter Details Date Type Department Care Team (Late st Contact Info) Description 03/16/2019 Abstract [facility] - [facility] Card[facility] Clinic [address] [place] [address] Ronal Avelar, JADON AV block, 2nd degree [...] Laterality Modality Device Narrative 03/24/2019 10:30 EST [facility] Cardiology Device Visit Reinforced Concrete Inspector: [employer] Device Type: SANDBLAST CARVER-D Service: Remote ? 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
--- OUTSIDE RECORDS SUMMARY | 2024-01-12 08:25 | XMS_ITS | Encounter Summary ---
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 Procedures IMPLANTABLE CARDIAC DEFIBRILLATOR PROCEDURE Navdeep Hurd MD [address] [place], [place] [address]A [address] [place] [address] Referral ID Status Reason Start Date Expiration Date Visits Re quested Visits Authorized [id number] Closed 02/13/2016 1 1 Encounter Details Date Type Department Care Team (Latest Contact Info) Description 02/13/2016 Pre-Procedure Orders Encounter [facility] [address] [place], [place] [address] [facility]urd [facility] [address] [facility] [address] [place] [address] ICD (implantable cardioverter-defibril lator) battery [...] 8 EDT Narrative 02/27/2016 15:17 EDT *Cardiology* [address] [place] [address] Lead Revision (Report amended ) Patient: Nabil Igleisas ?Study Date: ?02/27/2016 ? Accession #: ? [id number] : ? 1940 Referring: Clem Olvera Attending: [...] wire a Nick MENDOZAW 6F ([facility]) 6 mm-40 mm balloon dilation still could [...] Venograms were performed in the MOORE and AUSTRALIAN projections and a suitable mid-lateral LV branch [...] fascia. The leads were connected to a RECAPPER-D device. Device and Lead detail in table [...] Implanted device: Medtronic - Viva Quad XT RECAPPER-D DF4 - Serial number: [id number] Explanted device: Medtronic - Viva XT RECAPPER-D DF4 - Serial number: [id number]. LEAD PARAMETERS + + + + + [...] + + + + + Serial number [id number] ? [id number] ?? [id number] ?? [id number] ? + + + + [...] Gulshan Drummond MD - 05/12/2016 *Cardiology* [address] [place] [address] Lead Revision (Report amended ) Patient: Nabil [...] over an 0.35 glide wire [facility]) 6 mm-40 mm balloon dilation still could [...] Venograms were performed in the MOORE and AUSTRALIAN projections and a suitable mid-lateral LV branch [...] fascia. The leads were connected to a RECAPPER-D device. Device and Lead detail in table [...] Implanted device: Medtronic - Viva Quad XT RECAPPER-D DF4 - Serial number: [id number] Explanted device: Medtronic - Viva XT RECAPPER-D DF4 - Serial number: [id number]. LEAD PARAMETERS + + + + + + Lead # 1 2 3 4 + + + + + + Chamber RA RV LV LV + + + + + + Date 07/19/2002 07/18/2013 02/27/2016 07/18/2013 implanted + + + + + + Model St. Esa Medtronic Medtronic Enpath information [id number] Attain Epicardial Performa 4298 + + + + + + Serial number [id number] + + + + + + [...] situ documented in this encounter Care Teams Electronic Technologist Relationship Specialty Start Date End Date Clem Olvera MD [address] [place] [address] PCP - General 12/18/15 documented as of this encounter
--- OUTSIDE RECORDS SUMMARY | 2024-01-12 08:25 | XMS_ITS | Clinical Summary ---
Author Organization [facility] [place] [address] Care Team Providers Care Medical Clerical Assistant Name Role Phone Donny Cooper MD Primary Care Provider [phone] Allergies No known active allergies Medications Medication [...] Care Team Description 01/05/2024 Telephone Cardiology at [address] [phone] Kanika Shell 12/28/2023 Notes Only Cardiology at [address] [address] Kanika Shell 11/04/2023 10:00 AM EDT - 11/04/2023 11:59 PM EDT Hospital Encounter Non-Invasive [place] [phone] Discharge Disposition: Home from Last 3 Months [...] EDT Hospital Encounter Non-Invasive [place] [address] Arrived Health Maintenance Due Date Last Done Comments Tdap adult 08/19/1959 Tetanus vaccine 08/19/1959 Zoster vaccine (1 of 2) 1990 Advance Directive 08/19/1995 Pneumoccocal Vaccine: 65+ (2 of 2 - PCV) 05/04/2009 05/04/2008 Covid-19 Vaccine (1 - season) 2024 Influenza (Flu) vaccine (1 o f 1 - Influenza standard series) 01/03/2024 02/01/2010, 03/06/2006, 02/24/2005 Medical Devices Implanted Type Area Poultry Culler Device Identifier Shelf Expiration Date Model / Serial / Lot Mdt : [id number] : [id number] Implanted: (Quantity not on file) Cardiac Resynchronization Therapy - Defibrillator Chest Medtronic - [id number] / [id number] / Care Teams Medical Clerical Assistant Relationship Specialty Start Date End Date Donny Cooper MD [address] [place], [place] [address] PCP - General Family Medicine 02/25/19
--- OUTSIDE RECORDS SUMMARY | 2024-01-12 08:25 | XMS_ITS | Clinical Summary ---
Author Organization [facility] Address [address] [place] [address] Care Team Providers Care Home Care Provider Name Role Phone Clem Olvera MD Primary Care Provider [phone] Allergies No known active allergies Medications Medication [...] PACEMAKER INSERTION 05/04/2002 - 05/03/20032013 second pacemaker [facility] Medical History Medical History Date Comments [...] Advance Directives For more information, please contact: [phone] * Full Code (Latest Code Status on File) Date Activated Date Inactivated Comments 02/27/2016 8:49 02/28/2016 15:40 Question Answer Comments Reason for decision includes: Full code consistent with overall plan of care Who participated in the discussion? Not Discusse d Care Teams Home Care Provider Relationship Specialty Start Date End Date Clem Olvera MD [address] [place] [address] PCP - General 12/18/15
--- OUTSIDE RECORDS SUMMARY | 2024-01-12 08:25 | XMS_ITS | Encounter Summary ---
[place] [address] Care Team Providers Care Executive Chairman Of The Board Name Role Phone Donny Cooper MD Primary Care Provider [phone] Encounter Details Date Type Department Care Team (Latest Contact Info) Description 07/02/2023 10:00 AM EST - 07/02/2023 11:59 PM [facility] Hospital Encounter Non[place] [address] Discharge Disposition: Home Social History Tobacco Use [...] AM EDT Hospital Encounter Non-[place] [address] Arrived documented as of this encounter Visit Diagnoses Not on filedocumented in this encounter Care Teams Executive Chairman Of The Board Relationship Specialty Start Date End Date Donny Cooper MD [address] [place] [address] PCP - General Family Medicine 02/25/19 documented as of this encounter
--- OUTSIDE RECORDS SUMMARY | 2024-01-12 08:25 | XMS_ITS | Encounter Summary ---
[place] [address] Care Team Providers Care Corporate Strategy Analyst Name Role Phone Donny Cooper MD Primary Care Provider [phone] Encounter Details Date Type Department Care Team (Latest Contact Info) Description 08/06/2023 10:00 AM EDT - 08/06/2023 11:59 PM EDT Hospital Encounter [place] [address] Discharge Disposition: Home Social History Tobacco Use [...] AM EDT Hospital Encounter Non-[place] [address] Arrived documented as of this encounter Visit Diagnoses Not on filedocumented in this encounter Care Teams Corporate Strategy Analyst Relationship Specialty Start Date End Date Donny Cooper MD [address] [place] [address] PCP - General Family Medicine 02/25/19 documented as of this encounter
--- OUTSIDE RECORDS SUMMARY | 2024-01-12 08:25 | XMS_ITS | Encounter Summary ---
Author Organization [facility] Address [address] [place] [address] Care Team Providers Care Keycase Assembler Name Role Phone Unavailable Primary Care Provider Unavailabl e Encounter Details Date Type Department Care Team (Late st Contact Info) Description 05/06/2001 Results Only [facility] - Maple conversion [address] [place] [address] Hernandez Partida MD [address] [place] [place] [address] Social History Tobacco Use Types Packs/Day Years [...] is submitted entirely in cassette (B). ??(Naty Caal)/[facility] End of Report [facility] 05/06/2001 05/07/2001 9:2 5 EST Hernandez Partida MD PATHOLOGY ORDERABLES [facility] [address] [place] [address] documented in this encounter Visit Diagnoses Not on filedocumented in this encounter
--- OUTSIDE RECORDS SUMMARY | 2024-01-12 08:25 | XMS_ITS | Encounter Summary ---
[place] [address] Care Team Providers Care Simulation Engineer Name Role Phone Donny Cooper MD Primary Care Provider [phone] Encounter Details Date Type Department Care Team (Latest Contact Info) Description 11/04/2023 10:00 AM EDT - 11/04/2023 11:59 PM EDT Hospital Encounter [place] [address] Discharge Disposition: Home Social History Tobacco Use [...] AM EDT Hospital Encounter Non-[place] [address] Arrived documented as of this encounter Procedures [...] on filedocumented in this encounter Care Teams Simulation Engineer Relationship Specialty Start Date End Date Donny Cooper MD [address] [place] [address] PCP - General Family Medicine 02/25/19 documented as of this encounter
--- OUTSIDE RECORDS SUMMARY | 2024-01-12 08:25 | XMS_ITS | Encounter Summary ---
[place] [address] Care Team Providers Care Perfume Maker Name Role Phone Donny Cooper MD Primary Care Provider [phone] Encounter Details Date Type Department Care Team (Late st Contact Info) Description 01/05/2024 Telephone Cardiology at [address] [address] Kanika Shell Social History Tobacco [...] AM EDT Hospital Encounter Non-[place] [address] Arrived documented as of this encounter Visit Diagnoses Not on filedocumented in this encounter Care Teams Perfume Maker Relationship Specialty Start Date End Date Donny Cooper MD [address] [place] [address] PCP - General Family Medicine 02/25/19 documented as of this encounter
--- OUTSIDE RECORDS SUMMARY | 2024-01-12 08:25 | XMS_ITS | Encounter Summary ---
Author Organization [facility] Address [address] [place] [address] Care Team Providers Care Home Mortgage Disclosure Act Specialist Name Role Phone Clem Olvera MD Primary Care Provider [phone] Reason for Referral * (Routine) - Closed Specialty Diagnoses / Procedures Referred By Pedro madera Referred To Contact Beatrice De La Garza NP [address] [place] [phone] Referral ID Status Reason Start Date Expiration Date V isits Requested Visits Authorized [id number] Closed Specialty Services Required 02/27/2016 1 1 Comments You must contact us if we have not contacted you or you have missed your scheduled appointment. If you have any nursing questions, please don't hesitate to call the Cardiac Arrhythmia Service at The at or , extension [phone]. For any scheduling of appointments, please call [phone] or , extension [phone]. . * (Routine) - Closed Specialty Diagnoses / Procedures Referred By Pedro madera Referred To Contact Beatrice De La Garza NP [address] [address] Referral ID Status Reason Start Date Expiration Date V isits Requested Visits Authorized [id number] Closed Specialty Services Required 02/27/2016 1 1 Comments You have a pre existing appointment with Dr. Olvera on March 05 at 2:00, please have Dr. Olvera check your incision at that visit. * (Routine) - Closed Specialty Diagnoses / Procedures Referred By Contbecca t Referred To Contact Beatrice De La Garza NP [address] [address] Referral ID Status Reason Start Date Expiration Date V isits Requested Visits Authorized [id number] Closed Specialty Services Required 02/27/2016 1 1 [...] scheduled at your first appointment. - The Cardiology is located at [address] [facility] in [place] -Clinics are also held in [facility], and [place], [place] and [facility]. If you live in those areas, we will make arrangements for follow-up appointments in one of those clinics.. 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 He had heart failure symptoms that started around May 2013, when he was in [place], [place]. This triggered major cardiac workup including [...] then underwent a device upgrade to a DISPATCH OFFICER-D device with biventricular pacing for his EF [...] followed in cardiology outreach clinic at [facility] in [place]. Continued high pacing threshold on the epicardial [...] and plans to follow up with his Early Interventionist in [place] in 6-8 weeks for which he will arrange once he has arrived in [place]. He has been provided with the implant [...] HGBA1C Discharge Follow Up Appointments Scheduled with [facility] Appointments Outside of [facility] We Will Schedule Studies We Will Schedule Appointments We Recommend but have not been Scheduled Beatrice De La Garza NP 02/27/2016 10:59 Associated attestation - Gulshan Montoya Sa, MD - 02/28/2016 1519 EDT Attending Attestation: I saw and evaluated the patient. I discussed the case with the resident/HOST/HOSTESS GROUND/fellow and agree with the findings and plan as documented above. Gulshan bullock Sa, MD Cardiac Electrophysiology documented in this encounter Discharge Instructions * Appointments* Beatrice De La Garza NP - 02/27/2016 11:[address] Olvera on 03/05/16 at 2:00 as previously scheduled for a routine visit and for a check of your incision. Follow up with Giselle Hill NP at the [facility] in May, you will be notified [...] Notes * Lou Alfonso RN - 02/28/2016 7434 EDT Pt awaiting discharge. IV and tele [...] agree to review this medication with his theoretical physics teacher and plans to remain on his home dosing, which was in the morning. He received dose this am. Ptleft via wheelchair with . * Beatrice Rodriguez - 02/28/2016 1329 EDT Brief visit with patient and as they were being discharged. Patient states he is independent in self care and home management. He feels well supported by friends and neighbors. Patient has Medicare and [facility]. Pharmacy is [facility] in [facility]. No needs identified at time of discharge. will provide transportation. 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 He had heart failure symptoms that started around May 2013, when he was in [place], [place]. This triggered major cardiac workup including [...] point, his device was upgraded to a DISPATCH OFFICER-D device with biventricular pacing. By the patient's [...] followed in cardiology outreach clinic at [facility] in [place]. Continued high pacing threshold on the epicardial LV lead has caused a very rapid battery depletion. Dr. David Adams in [place] recommended against lead extraction and reimplant as [...] lives with , retired. Spends leong in [place]. Spends the chery in [place], [place]. Quit smoking in 1990. 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 Also diagnosed with [...] point, his device was upgraded to a DISPATCH OFFICER-D device with biventricular pacing with a surgically [...] EST) 03/12/2016 12:4 3 EST Scan 2 Executive Asst PROCEDURE/MINOR JUDD GICAL ORDERABLES * ECG REPORT - SCANNED (03/04/2016 14:06 EDT) 03/04/2016 14:0 6 EDT Scan 2 Executive Asst PROCEDURE/MINOR JUDD GICAL ORDERABLES * ECG REPORT - SCANNED (03/04/2016 14:06 EDT) 03/04/2016 14:0 6 EDT Scan 2 Executive Asst PROCEDURE/MINOR JUDD GICAL ORDERABLES * IMPLANT RECORD - SCANNED (03/04/2016 14:06 EDT) 03/04/2016 14:0 6 EDT Scan 2 Executive Asst PROCEDURE/MINOR JUDD GICAL ORDERABLES * ECG REPORT - SCANNED (03/01/2016 8:58 EDT) 03/01/2016 8:58 EDT Scan 2 Executive Asst PROCEDURE/MINOR JUDD GICAL ORDERABLES * ECG REPORT - SCANNED (03/01/2016 8:58 EDT) 03/01/2016 8:58 EDT Scan 2 Executive Asst PROCEDURE/MINOR JUDD GICAL ORDERABLES * CHEST PA [...] IMAGING ORDERABLES * HEMAGRAM (02/28/2016 5:44 EDT) [facility] WBC 9.84 4.0 - 10.4 K/cmm 02/28/2016 6:26 EDT [facility] RBC 4.42 4.36 - 5.78 M/cmm 02/28/2016 6:26 T [facility] Hemoglobin 14.2 13.8 - 17.3 gm/dl 02/28/2016 6:26 [facility] HCT 40.9 39.5 - 50.2 % 02/28/2016 6:26 [facility] MCV 93 81 - 95 fl 02/28/2016 6:26 [facility] MCH 32.1 27.6 - 33.0 pg 02/28/2016 6:26 [facility] MCHC 34.7 32.8 - 36.4 gm/dl 02/28/2016 6:26 [facility] RDW-CV 13.1 11.8 - 14.1 % 02/28/2016 6:26 [facility] RDW-SD 44.6 36.5 - 45.9 fl 02/28/2016 6:26 [facility] PLT 151 141 - 377 K/cmm 02/28/2016 6:26 [facility] MPV 11.2 9.5 - 12.7 fl 02/28/2016 6:26 [facility] Blood specimen (specimen) BLOOD SPECIMEN / Unknown 02/28/2016 5:44 EDT 02/28/2016 6:13 EDT Beatrice De La Garza NP HEMATOLOGY & PF4 ORDERABLES [facility] [address] [place] [address] * (ABNORMAL) CREATININE (02/28/2016 5:44 EDT) Creatinine 0.65(L) 0.66 - 1.25 mg/dl 02/28/2016 6:48 EDT [facility] GFR, Calculated 95 >60 ml/min/1.7 3m2 02/28/2016 6:48 EDT [facility] Comment: eGFR calculated using CKD-EPI equation for non Americans. Multiply eGFR by 1.16 for Americans. Blood specimen (specimen) BLOOD SPECIMEN / Unknown 02/28/2016 5:44 EDT 02/28/2016 6:13 EDT Beatrice De La Garza NP CHEMISTRY & B LOOD GAS ORDERABLES Performing Organization Address [facility]/ZIP Co de Phone Number [facility] [address] [place] [address] * BUN (02/28/2016 5:44 EDT) BUN 14 10 - 26 mg/dl 02/28/2016 6:48 EDT [facility] Blood specimen (specimen) BLOOD SPECIMEN / Unknown 02/28/2016 5:44 EDT 02/28/2016 6:13 EDT Beatrice De La Garza HOST/HOSTESS GROUND CHEMISTRY & B LOOD GAS ORDERABLES Performing Organization Address [facility] Co de Phone Number [facility] [address] [place] [address] * ELECTROLYTES (02/28/2016 5:44 EDT) Sodium 138 136 - 145 mEq/L 02/28/2016 6:48 EDT [facility] Potassium 4.7 3.5 - 5.0 mEq/L 02/28/2016 6:48 EDT [facility] Chloride 104 96 - 110 mEq/L 02/28/2016 6:48 EDT [facility] CO2 25 22 - 32 mEq/L 02/28/2016 6:48 EDT [facility] Comment:Note new reference r hong 02/19/16 Blood specimen (specimen) BLOOD SPECIMEN / Unknown 02/28/2016 5:44 EDT 02/28/2016 6:13 EDT Beatrice De La Garza NP CHEMISTRY & B LOOD GAS ORDERABLES [facility] [address] [place] [address] * PORTABLE CHEST 1 VIEW (02/27/2016 12:46 [...] 12:41 EDT) 02/27/2016 12:4 1 EDT Narrative [facility] EKG - 02/28/2016 8:57 EDT ? The ? Test Date: ?2016-02-27 Pat Name: ? NABIL IGLESIAS ? Department: ?? [facility] 5 ? Room: ? MW514 Gender: ? 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 [id number] : ?1940 ? Requested By: KAIN REED L Order Number: [id number] ? Reading MD: ?? BRAYAN CUENCA MD ? Measurements Intervals ?[place] ? Rate: ? 63 ? P: ?15 [...] Note Brayan Cuenca MD - 02/28/2016 The Test Date: 2016-02-27 Pat Name: NABIL IGLESIAS Department: [place] [address] Room: [facility] Gender: M Nuclear Powerplant Mechanic Helper: [id number] : 1940 Requested By: KAIN Gallagher Order Number: [id number] Reading MD: BRAYAN CUENCA MD Measurements Intervals [place] Rate: 63 P: 15 MT: 159 QRS: 234 QRSD: 156 T: 15 QT: 479 QTc: 493 Interpretive Statements ELECTRONIC VENTRICULAR PACEMAKER Compared to ECG 02/27/2016 08:10:34 No significant changes I reviewed the tracing and have either agreed or edited the findings inthis report. Electronically Signed On 02-28-16 08:57:02 EDT by BRAYAN BEEBE. Gulshan Drummond MD PhD CARDIA C ECG ORDERABLES [facility] EKG * PROTIME (02/27/2016 8:45 EDT) Pro Time 12.3 10.3 - 13.1 secs 02/27/2016 9:10 EDT [facility] Comment: New prothrombin t josue range effective 01/29/16 I.N.R. 1.1 0.9 - 1.1 Ratio 02/27/2016 9:10 EDT [facility] Comment: Moderate Intensity Coumadin INR = 2.0-3.0 Adjustments in anticoagulant therapy dose should be based upon the INR and NOT the Pro Time. Blood specimen (specimen) BLOOD SPECIMEN / Unknown 02/27/2016 8:45 EDT 02/27/2016 8:54 EDT Gulshan Drummond MD PhD HEMATO LOGY & PF4 ORDERABLES [facility] [address] [place] [address] * HEMAGRAM (02/27/2016 8:45 EDT) WBC 6.47 4.0 - 10.4 K/cmm 02/27/2016 8:57 EDT [facility] RBC 4.51 4.36 - 5.78 M/cmm 02/27/2016 8:57 EDT [facility] Hemoglobin 14.7 13.8 - 17.3 gm/dl 02/27/2016 8:57 EDT [facility] HCT 41.7 39.5 - 50.2 % 02/27/2016 8:57 EDT [facility] MCV 93 81 - 95 fl 02/27/2016 8:57 EDT [facility] MCH 32.6 27.6 - 33.0 pg 02/27/2016 8:57 EDT [facility] MCHC 35.3 32.8 - 36.4 gm/dl 02/27/2016 8:57 T [facility] RDW-CV 13.1 11.8 - 14.1 % 02/27/2016 8:57 EDT [facility] RDW-SD 44.0 36.5 - 45.9 fl 02/27/2016 8:57 EDT [facility] PLT 176 141 - 377 K/cmm 02/27/2016 8:57 EDT [facility] MPV 10.7 9.5 - 12.7 fl 02/27/2016 8:57 EDT [facility] Blood specimen (specimen) BLOOD SPECIMEN / Unknown 02/27/2016 8:45 EDT 02/27/2016 8:54 EDT Gulshan Drummond MD PhD HEMATO LOGY & PF4 ORDERABLES [facility] [address] [place] [address] * ELECTROLYTES (02/27/2016 8:45 EDT) Sodium 142 136 - 145 mEq/L 02/27/2016 9:13 EDT [facility] Potassium 4.7 3.5 - 5.0 mEq/L 02/27/2016 9:13 EDT [facility] Chloride 103 96 - 110 mEq/L 02/27/2016 9:13 EDT [facility] CO2 27 22 - 32 mEq/L 02/27/2016 9:13 EDT [facility] Comment:Note new reference r hong 02/19/16 Blood specimen (specimen) BLOOD SPECIMEN / Unknown 02/27/2016 8:45 EDT 02/27/2016 8:54 EDT Gulshan Drummond MD PhD CHEMIS TRY & BLOOD GAS ORDERABLES Performing Organization Address [facility] de Phone Number [facility] [address] [place] [address] * CREATININE (02/27/2016 8:45 EDT) Creatinine 0.69 0.66 - 1.25 mg/dl 02/27/2016 9:13 EDT [facility] GFR, Calculated 93 >60 ml/min/1.7 3m2 02/27/2016 9:13 EDT [facility] Comment: eGFR calculated using CKD-EPI equation for non Americans. Multiply eGFR by 1.16 for Americans. Blood specimen (specimen) BLOOD SPECIMEN / Unknown 02/27/2016 8:45 EDT 02/27/2016 8:54 EDT Gulshan Drummond MD PhD CHEMIS TRY & BLOOD GAS ORDERABLES Performing Organization Address City/[facility] Co de Phone Number [facility] [address] [place] [address] * BUN (02/27/2016 8:45 EDT) BUN 17 10 - 26 mg/dl 02/27/2016 9:13 EDT [facility] Blood specimen (specimen) BLOOD SPECIMEN / Unknown 02/27/2016 8:45 EDT 02/27/2016 8:54 EDT Gulshan Drummond MD PhD CHEMIS TRY & BLOOD GAS ORDERABLES [facility] [address] [place] [address] * EKG 12-LEAD (02/27/2016 8:08 EDT) 02/27/2016 8:08 EDT Narrative [facility] EKG - 02/28/2016 9:01 EDT ? The ? Test Date: ?2016-02-27 Pat Name: ? NABIL IGLESIAS ? Department: ?? [facility] ? Room: ? AT2099 Gender: ? 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 [id number] : ?1940 ? Requested By: MARCIA Boo Order Number: [id number] ? Julia WRIGHT: ?? BRAYAN CUENCA MD ? Measurements Intervals ?[place] ? Rate: ? 69 ? P: ?147 [...] by BRAYAN CUENCA MD. Procedure Note Brayan Cuecna MD - 02/28/2016 The Test Date: 2016-02-27 Pat Name: NABIL IGLESIAS Department: [facility] Room: [id number] Gender: M Nuclear Powerplant Mechanic Helper: [id number] : 1940 Requested By: MARCIA Boo Order Number: [id number] Reading MD: BRAYAN CUENCA MD Measurements Intervals [place] Rate: 69 P: 147 MT: 134 QRS: -67 QRSD: 160 T: -59 QT: 434 QTc: 467 Interpretive Statements ELECTRONIC ATRIAL PACEMAKER ELECTRONIC VENTRICULAR PACEMAKER Compared to ECG 02/27/2016 08:08:46 No significant changes I reviewed the tracing and have either agreed or edited the findings inthis report. Electronically Signed On 02-28-16 09:01:04 EDT by BRAYAN BEEBE. Navdeep Hurd MD CARDIAC ECG ORD ERABLES [facility] EKG documented in this encounter Visit [...] Reason: Other - Comment: pt already took TRIMMER OPERATOR, takes other meds at HS) 921 [...] Reason: Other - Comment: pt already took TRIMMER OPERATOR, takes other meds at HS)2100 (Given - Provider: Mady Bruno RN) spironolactone (ALDACTONE) tablet 12.5 mg 12.5 mg, oral, DAILY, First dose on Thu02/27/16 at 1245, Until Discontinued, Routine 1306 (Not Given - Provider: Nneka Stuart RN - Reason: Other - Comment: pt already took TRIMMER OPERATOR, takes other meds at HS)2102 (Given - Provider: Mady Bruno RN) tamsulosin (FLOMAX) capsule 0.4 mg 0.4 mg, oral, DAILY, First dose on Thu02/27/16 at 1245, Until Discontinued, Routine 1306 (Not Given - Provider: Nneka Stuart RN - Reason: Other - Comment: pt already took TRIMMER OPERATOR, takes other meds at HS) 921 [...] 02/02 documented in this encounter Care Teams Home Mortgage Disclosure Act Specialist Relationship Specialty Start Date End Date Clem Olvera MD [address] [place] [address] PCP - General 12/18/15 documented as of this encounter
--- OUTSIDE RECORDS SUMMARY | 2024-01-12 08:25 | XMS_ITS | Encounter Summary ---
[place] [address] Care Team Providers Care Shape Hand Name Role Phone Donny Cooper MD Primary Care Provider [phone] Encounter Details Date Type Department Care Team (Late st Contact Info) Description 12/28/2023 Notes Only Cardiology at [address] [phone] Kanika Shell Social History Tobacco Use Types [...] AM EDT Hospital Encounter [place] [address] Arrived documented as of this encounter Visit Diagnoses Not on filedocumented in this encounter Care Teams Shape Hand Relationship Specialty Start Date End Date Donny Cooper MD [address] [facility] [address] [place] [address] PCP - General Family Medicine 02/25/19 documented as of this encounter
--- OUTSIDE RECORDS SUMMARY | 2024-01-12 08:25 | XMS_ITS | Encounter Summary ---
Author Organization Health system Address [address] [place] [address] Care Team Providers Care Furrier Shop Supervisor Name Role Phone Clem Olvera MD Primary Care Provider [phone] Reason for Visit * Reason Onset Date Comments Appointment Related 10/23/2016 Check for fo llow up of pacer Encounter Details Date Type Department Care Team ([facility] Contact Info) Description 10/23/2016 Telephone [facility] Cardiology - [address] [place] [address] Pacemaker, Pace Appointment Related (Check [...] on filedocumented in this encounter Care Teams Furrier Shop Supervisor Relationship Specialty Start Date End Date Clem Olvera MD [address] [place] [address] PCP - General 12/18/15 documented as of this encounter
--- OUTSIDE RECORDS SUMMARY | 2024-01-12 08:25 | XMS_ITS | Encounter Summary ---
[place] [address] Care Team Providers Care Altitude Chamber Technician Name Role Phone Donny Cooper MD Primary Care Provider [phone] Encounter Details Date Type Department Care Team (Latest Contact Info) Description 10/05/2022 10:00 AM EDT - 10/05/2022 11:59 PM EDT Hospital Encounter [place] [address] Discharge Disposition: Home Social History Tobacco Use [...] AM EDT Hospital Encounter [place] [phone] Arrived documented as of this encounter Procedures [...] on filedocumented in this encounter Care Teams Altitude Chamber Technician Relationship Specialty Start Date End Date Donny Cooper MD [address] [place] [address] [place] [address] PCP - General Family Medicine 02/25/19 documented as of this encounter
--- OUTSIDE RECORDS SUMMARY | 2024-01-12 08:25 | XMS_ITS | Encounter Summary ---
Author Organization [facility] Address [address] [place] [address] Care Team Providers Care Waiter/Waitress Tourist Class Name Role Phone Unknown, Provider Primary Care Provider [phone] Clem Olvera MD Primary Care Provider [phone] Encounter Details Date Type Department Care Team (Late st Contact Info) Description 11/29/2015 Pre-Procedure Orders Encounter [facility] [address] [place], [place] [id number] Navdeep Hurd MD [address] [place] [address] [address] Social History Tobacco Use Types [...] Patient: Nabil Streeter. Attending: Dr. Moran Scrrajinder Brake Lining Finisher: Dr. Fantasma Dhillon History/indication: The patient is [...] Patient: Nabil Streeter Attending: Dr. Dean Bailey Brake Lining Finisher: Dr. Fantasma Dhillon History/indication: The patient is [...] on filedocumented in this encounter Care Teams Waiter/Waitress Tourist Class Relationship Specialty Start Date End Date Unknown, Provider, PCP - General 12/06/12 12/17/15 Clem Olvera MD [address] [place] [address] PCP - General 12/18/15 documented as of this encounter
--- OUTSIDE RECORDS SUMMARY | 2024-01-12 08:25 | XMS_ITS | Encounter Summary ---
Author Organization [facility] Address [address] [place] [address] Care Team Providers Care Law Professor Name Role Phone Clem Olvera MD Primary Care Provider [phone] Encounter Details Date Type Department Care Team (Latest Contact Info) Description 12/20/2015 10:52 EDT - 12/20/2015 23:[address] [facility] Cardiovascular Unit [address] [place] [address] Navdeep Hurd MD [address] [place] [address] [address] Discharge Disposition: Home or Self [...] no need to beNPO or have a dairy truck driver. However, his will be accompanying him. They are driving someone to the airport [place] 1000 and then will come here and check-in around 1145. He agrees to have a shower. documented in this encounter Procedure Notes * Fantasma Dhillon MD - 12/20/2015 1356 EDT IR Brief Procedure Note Attending: Leo Supervisor Hard Candy: Alejo Pre-op Dx: Arrhythmia, need for pacemaker [...] 12/19 documented in this encounter Care Teams Law Professor Relationship Specialty Start Date End Date Clem Olvera MD [address] [place] [address] PCP - General 12/18/15 documented as of this encounter
--- OUTSIDE RECORDS SUMMARY | 2024-01-12 08:26 | XMS_ITS | Encounter Summary ---
[place] [address] Care Team Providers Care Supervisor Bindery Name Role Phone Marques Martinez MD Primary Care Provider [phone] Encounter Details Date Type Department Care Team (Late st Contact Info) Description 06/12/2010 2:00 PM EST Procedure visit [place] [address] Social History Tobacco Use Types Packs/Day Years [...] Hospital Encounter Non-[place] [address] Arrived documented as of this encounter Visit Diagnoses Not on filedocumented in this encounter Care Teams Supervisor Bindery Relationship Specialty Start Date End Date Marques Martinez MD [address] [place] [address] PCP - General 04/01/10 04/08/11 documented as of this encounter
--- OUTSIDE RECORDS SUMMARY | 2024-01-12 08:26 | XMS_ITS | Encounter Summary ---
Author Organization Formerly [facility] [place] [address] Care Team Providers Care Envelope Sealer Name Role Phone Donny Cooper MD Primary Care Provider [phone] Encounter Details Date Type Department Care Team (Latest Contact Info) Description 12/18/2020 11:57 AM EDT - 12/18/2020 11:59 PM EDT Hospital Encounter [place] [address] Maged Arguelles MD [facility] [place] [address] Cardiomyopathy, primary Discharge Disposition: Home Social History [...] AM EDT Hospital Encounter Non-[place] [address] Arrived documented as of this encounter Procedures Procedure Name Priority Date/Time Associated Diagnosis Comments ICD INTERROGATION 3 MONTH Routine 12/18/2020 12:00 PM EDT Cardiomyopathy, primary documented in this encounter Results * ICD INTERROGATION 3 MONTH (12/18/2020 12:00 PM EDT) Anatomical Region Laterality Modality Other Narrative 12/23/2020 11:08 PM EDT MDT ENGINEERING LEADER-D remote reviewed. Normal device function. Inadequate ENGINEERING LEADER at 80%. Maged Arguelles MD [facility] Cardiac Electrophysiology 12/23/2020 11:06 PM Maged Arguelles MD IMPLANTABLE CARDIAC DEVICE documented in this encounter Visit Diagnoses Diagnosis Cardiomyopathy, primary Other primary cardiomyopathies documented in this encounter Care Teams Envelope Sealer Relationship Specialty Start Date End Date Donny Cooper MD [address] [facility] [address] [place] [address] PCP - General Family Medicine 02/25/19 documented as of this encounter
--- OUTSIDE RECORDS SUMMARY | 2024-01-12 08:26 | XMS_ITS | Encounter Summary ---
[place] [address] Care Team Providers Care Python Developer Name Role Phone Donny Cooper MD Primary Care Provider [phone] Encounter Details Date Type Department Care Team (Late st Contact Info) Description 03/17/2019 Telephone Cardiology at [address] [address] Sheri Quinn LNA Social History [...] 11:46 AM EST Medication list reviewed with [facility] list. Please review with patient at next clinic visit. documented in this encounter Plan of Treatment Upcoming Encounters Date Type Department Care Team (Late st Contact Info) Description 02/02/2024 10:00 AM EDT Hospital Encounter [place] [address] Arrived documented as of this encounter Visit Diagnoses Not on filedocumented in this encounter Care Teams Python Developer Relationship Specialty Start Date End Date Donny Cooper MD [address] [place] [address] PCP - General Family Medicine 02/25/19 documented as of this encounter
--- OUTSIDE RECORDS SUMMARY | 2024-01-12 08:26 | XMS_ITS | Encounter Summary ---
Author Organization [facility] [place] [address] Care Team Providers Care File Machine Operator Name Role Phone Marques Martinez MD Primary Care Provider [phone] Encounter Details Date Type Department Care Team (Late st Contact Info) Description 06/12/2010 2:10 PM EST Office [place] [phone] Jairon Fenton MD [facility] [place] [address] Discharge Disposition: Home Social History Tobacco Use [...] EDT Hospital Encounter Non-Invasive [place] [address] Arrived documented as of this encounter Visit Diagnoses Not on filedocumented in this encounter Care Teams File Machine Operator Relationship Specialty Start Date End Date Marques Martinez MD [address] [place] [address] PCP - General 04/01/10 04/08/11 documented as of this encounter
--- OUTSIDE RECORDS SUMMARY | 2024-01-12 08:26 | XMS_ITS | Encounter Summary ---
Author Organization [facility] [place] [address] Care Team Providers Care University Tutor Name Role Phone Donny Cooper MD Primary Care Provider [phone] Encounter Details Date Type Department Care Team (Latest Contact Info) Description 10/03/2022 10:00 AM EDT Office Visit Cardiology at [address] [address] Eleno No PA [facility] [place] [address] Cardiomyopathy, primary; Presence of cardiac resynchronization therapy defibrillator (SUBASSEMBLER-D); Diaphragmatic stimulation by cardiac pacemaker, initial encounter [...] original note were not included. Cardiac Device SUBASSEMBLER-D Programming Evaluation Nabil Iglesias [id number] 10/03/2022 History: Mr. 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 [...] AM EDT Hospital Encounter Non-[place] [address] Arrived documented as of this encounter Procedures Procedure Name Priority Date/Time Associated Diagnosis Comments EKG 12-LEAD Routine 10/03/2022 11:00 AM EDT Cardiomyopathy, primary Presence of cardiac resynchronization therapy defibrillator (SUBASSEMBLER-D) Diaphragmatic stimulation by cardiac pacemaker, initial encounter documented in this encounter Results * EKG 12 Lead (10/03/2022 11:00 AM EDT) Ventricular rate 74 BPM MUSE SYSTEM Atrial Rate 74 BPM MUSE SYSTEM P-R Interval 154 ms MUSE SYSTEM QRS Duration 162 ms MUSE SYSTEM Q-T Interval 470 ms MUSE SYSTEM QTC Calculated (Bezet) 521 ms MUSE SYSTEM Calculated P [place] 30 degrees MUSE SYSTEM Calculated R [place] -98 degrees MUSE SYSTEM Calculated T [place] 41 degrees MUSE SYSTEM INTERPRETATION Atrial-sense d [...] cardiomyopathies Presence of cardiac resynchronization therapy defibrillator (SUBASSEMBLER-D) Diaphragmatic stimulation by cardiac pacemaker, initial encounter documented in this encounter Care Teams University Tutor Relationship Specialty Start Date End Date Donny Cooper MD [address] [place] [address] PCP - General Family Medicine 02/25/19 documented as of this encounter
--- OUTSIDE RECORDS SUMMARY | 2024-01-12 08:26 | XMS_ITS | Encounter Summary ---
Author Organization [facility] [place] [address] Care Team Providers Care Director Of Casework Name Role Phone Donny Cooper MD Primary Care Provider [phone] Encounter Details Date Type Department Care Team (Latest Contact Info) Description 06/13/2020 12:35 PM EST - 06/13/2020 11:59 PM EST Hospital Encounter Non-Invasive [place] [address] Alber Seals MD [facility] [place] [address] Cardiomyopathy, primary Discharge Disposition: Home Social History [...] AM EDT Hospital Encounter Non-Invasive [place] [address] Arrived documented as of this encounter Procedures Procedure Name Priority Date/Time Associated Diagnosis Comments ICD INTERROGATION 3 MONTH Routine 06/13/2020 12:36 PM EST Cardiomyopathy, primary documented in this encounter Results * ICD INTERROGATION 3 MONTH (06/13/2020 12:36 PM EST) Anatomical Region Laterality Modality Other Narrative 06/14/2020 10:38 AM EST Cardiac Device Remote Monitoring Report Summary Medtronic [place] 06/14/20 Device: PUBLIC INFORMATION DIRECTOR-D Model: VIVA QUAD Battery: 2.96 v, estimated longevity 3 years, 11 months Pacing percentage: 78% ventricular paced Events: The presenting rhythm is atrial paced with biventricular pacing and frequent ventricular premature contractions No significant arrhythmias Impression Normal device function; suboptimal PUBLIC INFORMATION DIRECTOR pacing likely secondary to frequent PVCs. Should consider in clinic follow-up for further evaluation Follow Up As per schedule - in-clinic and remote ALBER SEALS MD Alber Seals MD IMPLANTABLE CARDIAC DEVICE documented in this encounter Visit Diagnoses Diagnosis Cardiomyopathy, primary Other primary cardiomyopathies documented in this encounter Care Teams Director Of Casework Relationship Specialty Start Date End Date Donny Cooper MD [address] [place] [address] PCP - General Family Medicine 02/25/19 documented as of this encounter
--- OUTSIDE RECORDS SUMMARY | 2024-01-12 08:26 | XMS_ITS | Encounter Summary ---
[place] [address] Care Team Providers Care Diamond Sander Name Role Phone Donny Cooper MD Primary Care Provider [phone] Encounter Details Date Type Department Care Team (Late st Contact Info) Description 06/14/2020 Telephone Cardiology at [address] [phone] Nhung Briggs Social History Tobacco Use Types [...] He would like to be seen at [facility]. Email sent to Brittaney Hernandez at [facility] asking her to reach out to pt to set up the appt with either Dr. Arguelles or LANG Albert. Nhung Allen Electrophysiology Scheduling [id number] option 2 documented in this encounter Plan of Treatment Upcoming Encounters Date Type Department Care Team (Late st Contact Info) Description 02/02/2024 10:00 AM EDT Hospital Encounter Non-[place] [address] Arrived documented as of this encounter Visit Diagnoses Not on filedocumented in this encounter Care Teams Diamond Sander Relationship Specialty Start Date End Date Donny Cooper MD [address] [place] [address] PCP - General Family Medicine 02/25/19 documented as of this encounter
--- OUTSIDE RECORDS SUMMARY | 2024-01-12 08:26 | XMS_ITS | Encounter Summary ---
Author Organization Formerly [facility] [place] [address] Care Team Providers Care College Advisor Name Role Phone Donny Cooper MD Primary Care Provider [phone] Encounter Details Date Type Department Care Team (Latest Contact Info) Description 06/25/2021 3:23 PM EST - 06/25/2021 11:59 PM EST Hospital Encounter Non[place] [address] Alber Seals MD [facility] [place] [address] Cardiomyopathy, primary Discharge Disposition: Home Social History [...] AM EDT Hospital Encounter Non-[place] [address] Arrived documented as of this encounter Procedures Procedure Name Priority Date/Time Associated Diagnosis Comments ICD INTERROGATION 3 MONTH Routine 06/25/2021 3:24 PM EST Cardiomyopathy, primary documented in this encounter Results * ICD INTERROGATION 3 MONTH (06/25/2021 3:24 PM EST) Anatomical Region Laterality Modality Other Narrative 06/25/2021 3:42 PM EST Cardiac Device Remote Monitoring Report Summary Medtronic Carelink Device: METAL SPRAYING MACHINE OPERATOR-D Model: VIVA QUAD Battery: 2.95 v, estimated longevity 2 years 6 months Pacing percentage: 90% METAL SPRAYING MACHINE OPERATOR paced Events: Presenting rhythm: atrial paced/biventricular paced Frequent PVC's Impression Normal device function Follow Up As per schedule - in-clinic and remote ALBER SEALS MD 06/25/21 Alber Seals MD IMPLANTABLE CARDIAC DEVICE documented in this encounter Visit Diagnoses Diagnosis Cardiomyopathy, primary Other primary cardiomyopathies documented in this encounter Care Teams College Advisor Relationship Specialty Start Date End Date Donny Cooper MD [address] [place] [address] PCP - General Family Medicine 02/25/19 documented as of this encounter
--- OUTSIDE RECORDS SUMMARY | 2024-01-12 08:26 | XMS_ITS | Encounter Summary ---
[place] [address] Care Team Providers Care Crystal Finisher Name Role Phone Donny Cooper MD Primary Care Provider [phone] Encounter Details Date Type Department Care Team (Latest Contact Info) Description 04/08/2022 10:00 AM EST - 04/08/2022 11:59 PM [facility] Hospital Encounter Non-[place] [address] Discharge Disposition: Home Social History Tobacco Use [...] AM EDT Hospital Encounter Non-[place] [address] Arrived documented as of this [...] on filedocumented in this encounter Care Teams Crystal Finisher Relationship Specialty Start Date End Date Donny Cooper MD [address] [place] [address] PCP - General Family Medicine 02/25/19 documented as of this encounter
--- OUTSIDE RECORDS SUMMARY | 2024-01-12 08:26 | XMS_ITS | Encounter Summary ---
[place] [address] Care Team Providers Care Retail Center Receptionist Name Role Phone Marques Martinez MD Primary Care Provider [phone] Encounter Details Date Type Department Care Team (Late st Contact Info) Description 10/03/2010 [place] [address] Marina Orosco, JADON Social History Tobacco Use [...] AM EDT Hospital Encounter Non-[place] [address] Arrived documented as of this encounter Visit Diagnoses Not on filedocumented in this encounter Care Teams Retail Center Receptionist Relationship Specialty Start Date End Date Marques Martinez MD [address] [place] [address] PCP - General 04/01/10 04/08/11 documented as of this encounter
--- OUTSIDE RECORDS SUMMARY | 2024-01-12 08:26 | XMS_ITS | Encounter Summary ---
Author [facility] [place] [address] Care Team Providers Care Skills Instructor Name Role Phone Marques Martinez MD Primary Care Provider Encounter Details Date Type Department Care Team (Late st Contact Info) Description 09/11/2010 Orders [place] [phone] Jairon Fenton MD [facility] [place] [address] Fracture of patella, left, closed (Primary Dx) [...] AM EDT Hospital Encounter Non-[place] [address] Arrived documented as of this encounter Visit Diagnoses Diagnosis Fracture of patella, left, closed- Primary Closed fracture of patella documented in this encounter Care Teams Skills Instructor Relationship Specialty Start Date End Date Marques Martinez MD [address] [place] [address] PCP - General 04/01/10 04/08/11 documented as of this encounter
--- OUTSIDE RECORDS SUMMARY | 2024-01-12 08:26 | XMS_ITS | Encounter Summary ---
Author Organization [facility] [place] [address] Care Team Providers Care Channel Layer Name Role Phone Marques Martinez MD Primary Care Provider [phone] Encounter Details Date Type Department Care Team (Late st Contact Info) Description 10/09/2010 11:35 AM EDT - 10/09/2010 11:59 PM EDT Hospital Encounter XRay at [address] [place] [address] Social History Tobacco Use Types Packs/Day Years [...] AM EDT Hospital Encounter Non-[place] [address] Arrived documented as of this encounter Visit Diagnoses Not on filedocumented in this encounter Care Teams Channel Layer Relationship Specialty Start Date End Date Marques Martinez MD [address] [place] [address] PCP - General 04/01/10 04/08/11 documented as of this encounter
--- OUTSIDE RECORDS SUMMARY | 2024-01-12 08:26 | XMS_ITS | Encounter Summary ---
Author Organization [facility] [place] [address] Care Team Providers Care Operator/Assistant Foreman Name Role Phone Donny Cooper MD Primary Care Provider [phone] Encounter Details Date Type Department Care Team (Late st Contact Info) Description 07/26/2019 Notes Only Cardiology at [address] [address] Maged Arguelles MD [facility] [place] [address] Social History Tobacco Use Types Packs/Day Years [...] his Medtronic biventricular ICD is reviewed. Suboptimal DENTAL INSURANCE BILLER at 84%. Normal device function. Awaiting Holter to assess PVC burden. Maged Arguelles MD [facility] Cardiac Electrophysiology 07/26/2019 9:04 AM documented in this encounter Plan of Treatment Upcoming Encounters Date Type Department Care Team (Late st Contact Info) Description 02/02/2024 10:00 AM EDT Hospital Encounter Non-Invasive Cardiology [place] [address] Arrived documented as of this encounter Visit Diagnoses Not on filedocumented in this encounter Care Teams Operator/Assistant Foreman Relationship Specialty Start Date End Date Donny Cooper MD [address] [place] [address] PCP - General Family Medicine 02/25/19 documented as of this encounter
--- OUTSIDE RECORDS SUMMARY | 2024-01-12 08:26 | XMS_ITS | Encounter Summary ---
[place] [address] Care Team Providers Care Employment Evaluator/Case Manager Name Role Phone Marques Martinez MD Primary Care Provider [phone] Encounter Details Date Type Department Care Team (Late st Contact Info) Description 05/01/2010 2:40 PM EST Procedure visit [place] [address] Social History Tobacco Use Types Packs/Day Years [...] AM EDT Hospital Encounter Non-Invasive [place] [address] Arrived documented as of this encounter Visit Diagnoses Not on filedocumented in this encounter Care Teams Employment Evaluator/Case Manager Relationship Specialty Start Date End Date Marques Martinez MD [address] [place] [address] PCP - General 04/01/10 04/08/11 documented as of this encounter
--- OUTSIDE RECORDS SUMMARY | 2024-01-12 08:26 | XMS_ITS | Encounter Summary ---
Author Organization [facility] [place] [address] Care Team Providers Care Internet Marketing Coordinator Name Role Phone Clem Olvera MD Primary Care Provider [phone] Reason for Visit * Reason Comments Follow Up Fracture SP PATELLA FX DO12/12 DOI 03/30/10 Encounter Details Date Type Department Care Team (Late st Contact Info) Description 04/09/2011 1:30 PM EST Office [place] [address] Jairon Gustafson MD [facility] [place]OPAED[place] [address] Jose Francisco Bee PA [facility] [place]OP[facility] [address] Patella fracture (Primary Dx) Discharge Disposition: Home [...] EDT Hospital Encounter Non-Invasive [place] [address] Arrived documented as of this encounter Visit Diagnoses Diagnosis Patella fracture- Primary Closed fracture of patella documented in this encounter Care Teams Internet Marketing Coordinator Relationship Specialty Start Date End Date Clem Olvera MD [address] [place] [address] PCP - General 04/09/11 02/24/19 documented as of this encounter
--- OUTSIDE RECORDS SUMMARY | 2024-01-12 08:26 | XMS_ITS | Encounter Summary ---
[place] [address] Care Team Providers Care Powder Coater Name Role Phone Donny Cooper MD Primary Care Provider [phone] Encounter Details Date Type Department Care Team (Latest Contact Info) Description 07/07/2022 10:00 AM EST - 07/07/2022 11:59 PM EST Hospital Encounter Non-Invasive [place] [address] Discharge Disposition: Home Social History Tobacco Use [...] AM EDT Hospital Encounter Non-Invasive [place] [address] Arrived documented as of this [...] on filedocumented in this encounter Care Teams Powder Coater Relationship Specialty Start Date End Date Donny Cooper MD [address] [place] [address] PCP - General Family Medicine 02/25/19 documented as of this encounter
--- OUTSIDE RECORDS SUMMARY | 2024-01-12 08:26 | XMS_ITS | Encounter Summary ---
Author Organization [facility] [place] [address] Care Team Providers Care Testing And Regulating Technician Name Role Phone Marques Martinez MD Primary Care Provider [phone] Encounter Details Date Type Department Care Team (Late st Contact Info) Description 03/30/2010 [place] [address] Javier Barajas MD [facility] [place] [address] Social History Tobacco Use Types Packs/Day Years [...] AM EDT Hospital Encounter [place] [address] Arrived documented as of this encounter Procedures [...] AM EST Jairon Fenton MD CHEMISTRY ORDERABLES [facility] * (ABNORMAL) CREATININE, SERUM (04/01/2010 6:09 AM [...] Fenton MD CHEMISTRY ORDERABLES Performing Organization Address [facility] de Phone Number [facility]ERNER [facility] * BUN (04/01/2010 6:09 AM EST) Blood Urea Nitrogen 12 10 - 20 mg/dL [facility] Blood specimen (specimen) 04/01/2010 6:09 AM EST 04/01/2010 6:09 AM EST Jairon Fenton MD CHEMISTRY ORDERABLES Performing Organization Address [facility] de Phone Number CERNER [...] MD HEMATOLOGY ORDERABLE S Performing Organization Address [facility] de Phone Number CERNER [...] Fenton MD CHEMISTRY ORDERABLES Performing Organization Address [facility] Phone Number CERIVIS MILLENNIUM * ELECTROLYTE PANEL (03/30/2010 6:05 PM EST) Pathologist [facility] Sodium 135 135 - 145 mmol/L CERNER [...] Fenton MD CHEMISTRY ORDERABLES Performing Organization Address [facility] Co de Phone Number CERIVIS MILLENNIUM * CREATININE, SERUM (03/30/2010 6:05 PM EST) Creatinine 0.87 0.80 - 1.50 mg/dL [facility] Est Glomerular Filtration Rate >60 >=60 [facility] Comment: The National Kidney Disease Education [...] Urea Nitrogen 18 10 - 20 mg/dL [facility] Blood specimen (specimen) 03/30/2010 6:05 PM EST 03/30/2010 6:13 PM EST Jairon Fenton MD CHEMISTRY ORDERABLES Performing Organization Address [facility] de Phone Number DEJA SEGOVIA * APTT (03/30/2010 6:05 PM EST) Partial Thromboplastin Time 26 25 - 37 sec [facility] Comment: Recommended therapeutic PTT range for full dose unfractionated heparin is 80-114 seconds. Blood specimen (specimen) 03/30/2010 6:05 PM EST 03/30/2010 6:14 PM EST Jairon Fenton MD HEMATOLOGY ORDERABLE S Performing Organization Address [facility] Phone Number DEJA SEGOVIA * PROTIME-INR (03/30/2010 6:05 PM EST) Prothrombin Time 14.2 12.3 - 14.7 sec [facility] Comment: [facility] Transfusion Committee Guidelines: INR less than 2.0, PTT less than OR equal to 43.5 seconds, or Fibrinogen greater than or equal to 100 mg/dl indicate adequate procoagulant activity for hemostasis in patients without underlying bleeding disorders. International Normalization Ratio 1.1 0.9 - 1.1 [facility] Blood specimen (specimen) 03/30/2010 6:05 PM EST 03/30/2010 6:14 PM EST Jairon Fenton MD HEMATOLOGY ORDERABLE S Performing Organization Address [facility] de Phone Number DEJA [...] Standard Deviation 44.2 35.0 - 46.0 fL [facility] RDW coefficient of variation 13.1 10.9 - 14.4 % [facility] Mean Platelet Volume 10.6 9.0 - 12.0 fL [facility] Blood specimen (specimen) 03/30/2010 6:05 PM EST 03/30/2010 6:13 PM EST Jairon Fenton MD HEMATOLOGY ORDERABLE S Performing Organization Address [facility] Co de Phone Number [facility] * REFLEX LAB-ANTIBODY SCREEN (03/30/2010 3:17 PM EST) [facility] Ab Screen Interp Negative [facility] Expires at [id number] on: [id number] [facility] Blood specimen (specimen) 03/30/2010 3:17 PM EST 03/30/2010 3:17 PM EST Javier Barajas MD BLOOD BANK LAB ORDER PRECIOUS Performing Organization Address [facility] Co de Phone Number [facility] * REFLEX LAB-ABO/RH (03/30/2010 3:17 PM EST) [facility] ABORH Type A Pos [facility] Blood specimen (specimen) 03/30/2010 3:17 PM EST 03/30/2010 3:17 PM EST Javier Barajas MD BLOOD BANK LAB ORDER PRECIOUS Performing Organization Address [facility] Co de Phone Number [facility] * ELECTROLYTE PANEL (03/30/2010 2:50 PM EST) [facility] Sodium 135 135 - 145 mmol/L [facility] Potassium 4.3 3.5 - 5.0 mmol/L [facility] Comment: Please note: ??Patients with WBC [...] Barajas MD CHEMISTRY ORDERABLES Performing Organization Address [facility] Phone Number [facility] * BUN (03/30/2010 2:50 PM EST) Blood Urea Nitrogen 18 10 - 20 mg/dL [facility] Blood specimen (specimen) 03/30/2010 2:50 PM EST 03/30/2010 3:05 PM EST Javier Barajas MD CHEMISTRY ORDERABLES Performing Organization Address [facility] Phone Number [facility] * GLUCOSE, RANDOM (03/30/2010 2:50 PM EST) Glucose 95 <=199 mg/dL [facility] Comment:Diabetes: >=200 mg/d L plus symptoms Blood specimen (specimen) 03/30/2010 2:50 PM EST 03/30/2010 3:05 PM EST Javier Barajas MD CHEMISTRY ORDERABLES Performing Organization Address [facility] Phone Number [facility] * APTT (03/30/2010 2:50 PM EST) Partial Thromboplastin Time 25 25 - 37 sec [facility] Comment: Recommended therapeutic PTT range for full dose unfractionated heparin is 80-114 seconds. Blood specimen (specimen) 03/30/2010 2:50 PM EST 03/30/2010 3:06 PM EST Javier Barajas MD HEMATOLOGY ORDERABLE S Performing Organization Address [facility] Phone Number [facility] * PROTIME-INR (03/30/2010 2:50 PM EST) Prothrombin Time 14.1 12.3 - 14.7 sec [facility] Comment: [facility] Transfusion Committee Guidelines: INR less [...] on filedocumented in this encounter Care Teams Testing And Regulating Technician Relationship Specialty Start Date End Date Marques Martinez MD [address] [place] [address] PCP - General 04/01/10 04/08/11 documented as of this encounter
--- OUTSIDE RECORDS SUMMARY | 2024-01-12 08:26 | XMS_ITS | Encounter Summary ---
Author Organization Formerly [facility] [place] [address] Care Team Providers Care Feeder Operator Automatic Name Role Phone Marques Martinez MD Primary Care Provider [phone] Encounter Details Date Type Department Care Team (Late st Contact Info) Description 05/01/2010 3:10 PM EST Office [place] [phone] Jairon Fenton MD [facility] [place] [address] Discharge Disposition: Home Social History Tobacco Use [...] AM EDT Hospital Encounter Non-Invasive Cardiology [place] [address] Arrived documented as of this encounter Visit Diagnoses Not on filedocumented in this encounter Care Teams Feeder Operator Automatic Relationship Specialty Start Date End Date Marques Martinez MD [address] [place] [address] PCP - General 04/01/10 04/08/11 documented as of this encounter
--- OUTSIDE RECORDS SUMMARY | 2024-01-12 08:26 | XMS_ITS | Encounter Summary ---
Author Organization [facility] [place] [address] Care Team Providers Care Campground Hand Name Role Phone Marques Martinez MD Primary Care Provider [phone] Reason for Visit * Reason Comments Follow Up Fracture PATELLA FX DOI 03/23 10 Encounter Details Date Type Department Care Team (Late st Contact Info) Description 10/09/2010 12:40 PM EDT Office [place] [address] Jairon Gustafson MD [facility] [place] [address] Jose Francisco Bee PA [facility] [place] [address] Quadriceps tendon rupture (Primary Dx) Discharge Disposition: [...] AM EDT Hospital Encounter Non-[place]vasive [place] [address] Arrived documented as of this encounter Visit Diagnoses Diagnosis Quadriceps tendon rupture- Primary Sprain and strain of other specified sites of knee and leg documented in this encounter Care Teams Campground Hand Relationship Specialty Start Date End Date Marques Martinez MD [address] [place] [address] PCP - General 04/01/10 04/08/11 documented as of this encounter
[2024-01-12 08:31] VITALS: BP 115/66; PULSE 73
--- OUTSIDE RECORDS SUMMARY | 2024-01-14 08:56 | XMS_ITS | Encounter Summary ---
Author Organization [facility] Address [address] [place] [address] Care Team Providers Care Pull Over Machine Operator Name Role Phone Clem Olvera MD Primary Care Provider [phone] Reason for Visit * Reason Onset Date Comments Appointment Related 10/23/2016 Check for fo llow up of pacer Encounter Details Date Type Department Care Team ([facility] Contact Info) Description 10/23/2016 Telephone [facility] Cardiology - [address] [place] [address] Pacemaker, Pace Appointment Related (Check [...] that Nabil had his pacemaker checked in [place] where they are for the winter. They have some back and are being followed by Dr. Hurd at [facility]. documented in this encounter Plan of Treatment Not on file documented as of this encounter Visit Diagnoses Not on filedocumented in this encounter Care Teams Pull Over Machine Operator Relationship Specialty Start Date End Date Clem Olvera MD [address] [place] [address] PCP - General 12/18/15 documented as of this encounter
--- OUTSIDE RECORDS SUMMARY | 2024-01-14 08:56 | XMS_ITS | Encounter Summary ---
Author Organization [facility] Address [address] [place] [address] Care Team Providers Care Bottle Blower Name Role Phone Unavailable Primary Care Provider Unavailabl e Encounter Details Date Type Department Care Team (Late st Contact Info) Description 05/06/2001 Results Only [facility] - [facility] [address] [place] [address] Hernandez Partida MD [address] [place] [phone] Social History Tobacco Use Types Packs/Day Years [...] entirely in cassette (B). ??(Naty Caal)/[facility] End of Report [facility] 05/06/2001 05/07/2001 9:2 5 EST Hernandez Partida MD PATHOLOGY ORDERABLES [facility] [address] [place] [address] documented in this encounter Visit Diagnoses Not on filedocumented in this encounter
--- OUTSIDE RECORDS SUMMARY | 2024-01-14 08:56 | XMS_ITS | Encounter Summary ---
Author Organization [facility] Address [address] [place] [address] Care Team Providers Care Business Services Vice President Name Role Phone Clem Olvera MD Primary Care Provider [phone] Encounter Details Date Type Department Care Team (Late st Contact Info) Description 03/16/2019 Abstract [facility] Card[facility] Clinic [address] [place] [address] Ronal Avelar, JADON AV block, 2nd degree [...] Modality Device Narrative 03/24/2019 10:30 EST [facility] Cardiology Device Visit Networking Specialist: [email or web address] Device Type: VEGETABLE WASHER-D Service: Remote ? 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
--- OUTSIDE RECORDS SUMMARY | 2024-01-14 08:56 | XMS_ITS | Encounter Summary ---
Author Organization [facility] Address [address] [place] [address] Care Team Providers Care Enrollment Processor Name Role Phone Clem Olvera MD Primary Care Provider [phone] Reason for Referral * (Routine) - Closed Specialty Diagnoses / Procedures Referred By Pedro madera Referred To Contact Beatrice De La Garza NP [address] [place] [phone] Referral ID Status Reason Start Date Expiration Date V isits Requested Visits Authorized [id number] Closed Specialty Services Required 02/27/2016 1 1 Comments You must contact us if we have not contacted you or you have missed your scheduled appointment. If you have any nursing questions, please don't hesitate to call the Cardiac Arrhythmia Service at [facility] at or , extension [phone]. For any scheduling of appointments, please call [phone] or , extension [phone]. . * (Routine) - Closed Specialty Diagnoses / Procedures Referred By Pedro madera Referred To Contact Beatrice De La Garza NP [address] [address] Referral ID Status Reason Start Date Expiration Date V isits Requested Visits Authorized [id number] Closed Specialty Services Required 02/27/2016 1 1 Comments You have a pre existing appointment with Dr. Olvera on March 05 at 2:00, please have Dr. Olvera check your incision at that visit. * (Routine) - Closed Specialty Diagnoses / Procedures Referred By Contbecca t Referred To Contact Beatrice De La Garza NP [address] [phone] Referral ID Status Reason Start Date Expiration Date V isits Requested Visits Authorized [id number] Closed Specialty Services Required 02/27/2016 1 1 [...] [facility] at [address] [facility] in [place] -Clinics are also held in [facility], and [place], [place] and [facility]. If you live in those areas, we will make arrangements for follow-up appointments in one of those clinics.. Encounter Details Date Type Department Care Team (Late st Contact Info) Description 02/27/2016 6:30 EDT - 02/28/2016 13:39 EDT Hospital Encounter [facility] Cardiac/Telemetry Unit [address] [place] [address] Gulshan Drummond MD PhD [address] [phone] Gulshan Montoya Sa, MD [address] [facility] [address] [place] [phone] AICD lead malfunction, subsequent encounter; ICD [...] EF of 20-25% status post silent inferior FL in the early . 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 He had heart failure symptoms that started around May 2013, when he was in [place], [place]. This triggered major cardiac workup including [...] then underwent a device upgrade to a FIRE OFFICIAL-D device with biventricular pacing for his EF [...] been followed in cardiology outreach clinic at [facility] in [place]. Continued high pacing threshold on the epicardial [...] on March 05 at 2:[address] lOvera and plans to follow up with his Ip Attorney in [place] in 6-8 weeks for which [...] HGBA1C Discharge Follow Up Appointments Scheduled with [facility] Appointments Outside of [facility] We Will Schedule Studies We Will Schedule Appointments We Recommend but have not been Scheduled Beatrice De La Garza NP 02/27/2016 10:59 Associated attestation - Gulshan Montoya Sa, MD - 02/28/2016 1519 EDT Attending Attestation: I saw and evaluated the patient. I discussed the case with the resident/CHIEF PSYCHOLOGIST/fellow and agree with the findings and plan [...] Notes * Lou Alfonso RN - 02/28/2016 7644 EDT Pt awaiting discharge. IV and tele was removed by primary nurse. This RN administered flu shot and provided flu information sheet. AVS and medications reviewed by RN with patient and . AVS statedcoreg was 3.25mg BID, which pt states no, they must have copied it down wrong. I'm not doing that.We've been through this in [place]. It makes me pass out. RN suggested checking with team, which pt denied and states I wont take it twice a day. He did agree to review this medication with his call center agent and plans to remain on his home dosing, which was in the morning. He received dose this am. Ptleft via wheelchair with . * Beatrice Rodriguez - 02/28/2016 1329 EDT Brief visit with patient and as they were being discharged. Patient states he is independent in self care and home management. He feels well supported by friends and neighbors. Patient has Medicare and [facility]. [facility]acy [facility] in [facility]. No needs identified at time of discharge. will provide transportation. Beatrice Rodriguez RN Case Manager #[phone] documented in this encounter H&P Notes * Navdeep Hurd MD - 02/27/2016 0830 EDT Cardiology Admitting H&P Admit Date: 02/27/2016 Date of Service: 02/27/2016 PCP: Clem Olvera Code Status: Full Code Chief Complaint: FINN, device battery depletion, high pacing threshold on epicardial lead HPI: 74-year-old man with coronary artery disease and ischemic cardiomyopathy status post silent inferior FL in the early . 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 He had heart failure symptoms that started around May 2013, when he was in [place], [place]. This triggered major cardiac workup including [...] point, his device was upgraded to a FIRE OFFICIAL-D device with biventricular pacing. By the patient's [...] been followed in cardiology outreach clinic at [facility] in [place]. Continued high pacing threshold on the epicardial LV lead has caused a very rapid battery depletion. Dr. David Adams in [place] recommended against lead extraction and reimplant as [...] insertion 2002 2013 second pacemaker [facility] Social History Family History Social History Substance Use Topics ??? Smoking status: Former Smoker Years: 35.00 Quit date: 1989 ??? Smokeless tobacco: Not on file ??? Alcohol use 6.6 oz/week 6 Cans of beer, 5 Glasses of wine per week , lives with , retired. Spends leong in [place]. Spends the chery in [place], [place]. Quit smoking in 1990. Has 2 [...] and ischemic cardiomyopathy status post silent inferior FL in the early . Also diagnosed with [...] point, his device was upgraded to a FIRE OFFICIAL-D device with biventricular pacing with a surgically [...] EST) 03/12/2016 12:4 3 EST Scan 2 Corner Brace Block Machine Operator PROCEDURE/MINOR JUDD GICAL ORDERABLES * ECG REPORT - SCANNED (03/04/2016 14:06 EDT) 03/04/2016 14:0 6 EDT Scan 2 Corner Brace Block Machine Operator PROCEDURE/MINOR JUDD GICAL ORDERABLES * ECG REPORT - SCANNED (03/04/2016 14:06 EDT) 03/04/2016 14:0 6 EDT Scan 2 Corner Brace Block Machine Operator PROCEDURE/MINOR JUDD GICAL ORDERABLES * IMPLANT RECORD - SCANNED (03/04/2016 14:06 EDT) 03/04/2016 14:0 6 EDT Scan 2 Corner Brace Block Machine Operator PROCEDURE/MINOR JUDD GICAL ORDERABLES * ECG REPORT - SCANNED (03/01/2016 8:58 EDT) 03/01/2016 8:58 EDT Scan 2 Corner Brace Block Machine Operator PROCEDURE/MINOR JUDD GICAL ORDERABLES * ECG REPORT - SCANNED (03/01/2016 8:58 EDT) 03/01/2016 8:58 EDT Scan 2 Corner Brace Block Machine Operator PROCEDURE/MINOR JUDD GICAL ORDERABLES * CHEST [...] IMAGING ORDERABLES * HEMAGRAM (02/28/2016 5:44 EDT) [facility] WBC 9.84 4.0 - 10.4 K/cmm 02/28/2016 6:[address] [facility] RBC 4.42 4.36 - 5.78 M/cmm 02/28/2016 6:[address] [facility] Hemoglobin 14.2 13.8 - 17.3 gm/dl 02/28/2016 6:26 [facility] HCT 40.9 39.5 - 50.2 % 02/28/2016 6:26 [facility] MCV 93 81 - 95 fl 02/28/2016 6:26 [facility] MCH 32.1 27.6 - 33.0 pg 02/28/2016 6:26 [facility] MCHC 34.7 32.8 - 36.4 gm/dl 02/28/2016 6:26 [facility] RDW-CV 13.1 11.8 - 14.1 % 02/28/2016 6:26 [facility] RDW-SD 44.6 36.5 - 45.9 fl 02/28/2016 6:26 [facility] PLT 151 141 - 377 K/cmm 02/28/2016 6:26 [facility] MPV 11.2 9.5 - 12.7 fl 02/28/2016 6:26 [facility] Blood specimen (specimen) BLOOD SPECIMEN / Unknown 02/28/2016 5:44 EDT 02/28/2016 6:13 EDT Beatrice De La Garza NP HEMATOLOGY & PF4 ORDERABLES [facility] [address] [place] [address] * (ABNORMAL) CREATININE (02/28/2016 5:44 EDT) Creatinine 0.65(L) 0.66 - 1.25 mg/dl 02/28/2016 6:[address] [facility] GFR, Calculated 95 >60 ml/min/1.7 3m2 02/28/2016 6:[address] [facility] Comment: eGFR calculated using CKD-EPI equation for non Americans. Multiply eGFR by 1.16 for Americans. Blood specimen (specimen) BLOOD SPECIMEN / Unknown 02/28/2016 5:44 EDT 02/28/2016 6:13 EDT Beatrice De La Garza NP CHEMISTRY & B LOOD GAS ORDERABLES Performing Organization Address [facility]/ZIP Co de Phone Number [facility] [address] [place] [address] * BUN (02/28/2016 5:44 EDT) BUN 14 10 - 26 mg/dl 02/28/2016 6:[address] [facility] Blood specimen (specimen) BLOOD SPECIMEN / Unknown 02/28/2016 5:44 EDT 02/28/2016 6:13 EDT Beatrice De La Garza CHIEF PSYCHOLOGIST CHEMISTRY & B LOOD GAS ORDERABLES Performing Organization Address [facility] Co de Phone Number [facility] [address] [place] [address] * ELECTROLYTES (02/28/2016 5:44 EDT) Sodium 138 136 - 145 mEq/L 02/28/2016 6:[address] [facility] Potassium 4.7 3.5 - 5.0 mEq/L 02/28/2016 6:[address] [facility] Chloride 104 96 - 110 mEq/L 02/28/2016 6:[address] [facility] CO2 25 22 - 32 mEq/L 02/28/2016 6:[address] [facility] Comment:Note new reference r hong 02/19/16 Blood specimen (specimen) BLOOD SPECIMEN / Unknown 02/28/2016 5:44 EDT 02/28/2016 6:13 EDT Beatrice De La Garza NP CHEMISTRY & B LOOD GAS ORDERABLES [facility] [address] [place] [address] * PORTABLE CHEST 1 VIEW (02/27/2016 12:46 [...] 12:41 EDT) 02/27/2016 12:[address] [facility] E[facility] - 02/28/2016 8:57 EDT ? [facility] ? Test Date: ?2016-02-27 Pat Name: ? NABIL IGLESIAS ? Department: ?? HERN[facility] 5 ? Room: ? MW514 Gender: ? M ?Vocational Rehabilitation Counselor: ?? [id number] : ?1940 ? Requested By: KAIN REED L Order Number: [id number] ? Reading MD: ?? BRAYAN CUENCA MD ? Measurements Intervals ?[place] ? Rate: ? 63 ? P: ?15 CT: ? 159 ?QRS: ?234 QRSD: ? 156 [...] Date: 2016-02-27 Pat Name: NABIL IGLESIAS Department: [place] [address] Room: [facility] Gender: M Vocational Rehabilitation Counselor: [id number] : 1940 Requested By: KAIN Gallagher Order Number: [id number] Reading MD: BRAYAN CUENCA MD Measurements Intervals [place] Rate: 63 P: 15 CT: 159 QRS: 234 QRSD: 156 T: 15 QT: 479 QTc: 493 Interpretive Statements ELECTRONIC VENTRICULAR PACEMAKER Compared to ECG 02/27/2016 08:10:34 No significant changes I reviewed the tracing and have either agreed or edited the findings inthis report. Electronically Signed On 02-28-16 08:57:02 EDT by BRAYAN BEEBE. Gulshan Drummond MD PhD CARDIA C ECG ORDERABLES [facility] E[facility] * PROTIME (02/27/2016 8:45 EDT) Pro Time 12.3 10.3 - 13.1 secs 02/27/2016 9:[address] [facility] Comment: New prothrombin t josue range effective 01/29/16 I.N.R. 1.1 0.9 - 1.1 Ratio 02/27/2016 9:[address] [facility] Comment: Moderate Intensity Coumadin INR = 2.0-3.0 Adjustments in anticoagulant therapy dose should be based upon the INR and NOT the Pro Time. Blood specimen (specimen) BLOOD SPECIMEN / Unknown 02/27/2016 8:45 EDT 02/27/2016 8:54 EDT Gulshan Drummond MD PhD HEMATO LOGY & PF4 ORDERABLES [facility] [address] [place] [address] * HEMAGRAM (02/27/2016 8:45 EDT) WBC 6.47 4.0 - 10.4 K/cmm 02/27/2016 8:[address] [facility] RBC 4.51 4.36 - 5.78 M/cmm 02/27/2016 8:[address] [facility] Hemoglobin 14.7 13.8 - 17.3 gm/dl 02/27/2016 8:[address] [facility] HCT 41.7 39.5 - 50.2 % 02/27/2016 8:[address] [facility] MCV 93 81 - 95 fl 02/27/2016 8:[address] [facility] MCH 32.6 27.6 - 33.0 pg 02/27/2016 8:[address] [facility] MCHC 35.3 32.8 - 36.4 gm/dl 02/27/2016 8:[address] [facility] RDW-CV 13.1 11.8 - 14.1 % 02/27/2016 8:[address] [facility] RDW-SD 44.0 36.5 - 45.9 fl 02/27/2016 8:[address] [facility] PLT 176 141 - 377 K/cmm 02/27/2016 8:[address] [facility] MPV 10.7 9.5 - 12.7 fl 02/27/2016 8:[address] [facility] Blood specimen (specimen) BLOOD SPECIMEN / Unknown 02/27/2016 8:45 EDT 02/27/2016 8:54 EDT Gulshan Drummond MD PhD HEMATO LOGY & PF4 ORDERABLES [facility] [address] [place] [address] * ELECTROLYTES (02/27/2016 8:45 EDT) Sodium 142 136 - 145 mEq/L 02/27/2016 9:[address] [facility] Potassium 4.7 3.5 - 5.0 mEq/L 02/27/2016 9:[address] [facility] Chloride 103 96 - 110 mEq/L 02/27/2016 9:[address] [facility] CO2 27 22 - 32 mEq/L 02/27/2016 9:[address] [facility] Comment:Note new reference r hong 02/19/16 Blood specimen (specimen) BLOOD SPECIMEN / Unknown 02/27/2016 8:45 EDT 02/27/2016 8:54 EDT Gulshan Drummond MD PhD CHEMIS TRY & BLOOD GAS ORDERABLES Performing Organization Address [facility] de Phone Number [facility] [address] [place] [address] * CREATININE (02/27/2016 8:45 EDT) Creatinine 0.69 0.66 - 1.25 mg/dl 02/27/2016 9:[address] [facility] GFR, Calculated 93 >60 ml/min/1.7 3m2 02/27/2016 9:[address] [facility] Comment: eGFR calculated using CKD-EPI equation for non Americans. Multiply eGFR by 1.16 for Americans. Blood specimen (specimen) BLOOD SPECIMEN / Unknown 02/27/2016 8:45 EDT 02/27/2016 8:54 EDT Gulshan Drummond MD PhD CHEMIS TRY & BLOOD GAS ORDERABLES Performing Organization Address City/[facility] Co de Phone Number [facility] [address] [place] [address] * BUN (02/27/2016 8:45 EDT) BUN 17 10 - 26 mg/dl 02/27/2016 9:[address] [facility] Blood specimen (specimen) BLOOD SPECIMEN / Unknown 02/27/2016 8:45 EDT 02/27/2016 8:54 EDT Gulshan Drummond MD PhD CHEMIS TRY & BLOOD GAS ORDERABLES [facility] [address] [place] [address] * EKG 12-LEAD (02/27/2016 8:08 EDT) 02/27/2016 8:[address] [facility] EKG - 02/28/2016 9:01 EDT ? [facility] ? Test Date: ?2016-02-27 Pat Name: ? NABIL IGLESIAS ? Department: ?? PeriopMainC ? Room: ? [id number] Gender: ? M ?Vocational Rehabilitation Counselor: ?? [id number] : ?1940 ? Requested By: MARCIA Boo Order Number: [id number] ? [place] WRIGHT: ?? BRAYAN CUENCA MD ? Measurements Intervals ?[place] ? Rate: ? 69 ? P: ?147 CT: ? 134 ?QRS: ?-67 QRSD: ? 160 [...] Date: 2016-02-27 Pat Name: NABIL IGLESIAS Department: [facility] Room: [id number] Gender: M Vocational Rehabilitation Counselor: [id number] : 1940 Requested By: MARCIA Boo Order Number: [id number] Reading MD: BRAYAN CUENCA MD Measurements Intervals [place] Rate: 69 P: 147 CT: 134 QRS: -67 QRSD: 160 T: -59 QT: 434 QTc: 467 Interpretive Statements ELECTRONIC ATRIAL PACEMAKER ELECTRONIC VENTRICULAR PACEMAKER Compared to ECG 02/27/2016 08:08:46 No significant changes I reviewed the tracing and have either agreed or edited the findings inthis report. Electronically Signed On 02-28-16 09:01:04 EDT by BRAYAN BEEBE. Navdeep Hurd MD CARDIAC ECG ORD ERABLES [facility] EKG documented in this encounter [...] Reason: Other - Comment: pt already took ELECTRIC SWITCH TESTER, takes other meds at HS) 921 (Given [...] Reason: Other - Comment: pt already took ELECTRIC SWITCH TESTER, takes other meds at HS)2100 (Given - Provider: Mady Bruno RN) spironolactone (ALDACTONE) tablet 12.5 mg 12.5 mg, oral, DAILY, First dose on Thu02/27/16 at 1245, Until Discontinued, Routine 1306 (Not Given - Provider: Nneka Stuart RN - Reason: Other - Comment: pt already took ELECTRIC SWITCH TESTER, takes other meds at HS)2102 (Given - Provider: Mady Bruno RN) tamsulosin (FLOMAX) capsule 0.4 mg 0.4 mg, oral, DAILY, First dose on Thu02/27/16 at 1245, Until Discontinued, Routine 1306 (Not Given - Provider: Nneka Stuart RN - Reason: Other - Comment: pt already took ELECTRIC SWITCH TESTER, takes other meds at HS) 921 (Given [...] 02/02 documented in this encounter Care Teams Enrollment Processor Relationship Specialty Start Date End Date Clem Olvera MD [address] [place] [address] PCP - General 12/18/15 documented as of this encounter
--- OUTSIDE RECORDS SUMMARY | 2024-01-14 08:56 | XMS_ITS | Encounter Summary ---
[place] [address] Care Team Providers Care Public Health Internship Name Role Phone Donny Cooper MD Primary Care Provider [phone] Encounter Details Date Type Department Care Team (Latest Contact Info) Description 08/06/2023 10:00 AM EDT - 08/06/2023 11:59 PM EDT Hospital Encounter [place] [address] Discharge Disposition: Home Social History Tobacco Use [...] AM EDT Hospital Encounter [place] [phone] Arrived documented as of this encounter Visit Diagnoses Not on filedocumented in this encounter Care Teams Public Health Internship Relationship Specialty Start Date End Date Donny Cooper MD [address] [place] [address] PCP - General Family Medicine 02/25/19 documented as of this encounter
--- OUTSIDE RECORDS SUMMARY | 2024-01-14 08:56 | XMS_ITS | Encounter Summary ---
Author Organization [facility] Address [address] [place] [address] Care Team Providers Care Aemt Name Role Phone Unavailable Primary Care Provider Unavailabl e Encounter Details Date Type Department Care Team (Late st Contact Info) Description 12/02/2012 Results Only [facility] Laboratory Services - [facility] ([facility]) [address] [place] [id number] Satinder Edwards MD [address] [place] [id number] Social History Tobacco Use Types Packs/Day Years [...] ? NABIL IGLESIAS ? Accession #: ? [id number] ? : ? 1940 (Age: 72) ??M [...] MD PATHOLOGY ORDERABLE S Performing Organization Address City/State/[facility] Co de Phone Number DIVYA BERRY [address] [place] [address] documented in this encounter Visit Diagnoses Not on filedocumented in this encounter
--- OUTSIDE RECORDS SUMMARY | 2024-01-14 08:56 | XMS_ITS | Encounter Summary ---
[place] [address] Care Team Providers Care Psychometrician Name Role Phone Donny Cooper MD Primary Care Provider [phone] Encounter Details Date Type Department Care Team (Latest Contact Info) Description 11/04/2023 10:00 AM EDT - 11/04/2023 11:59 PM EDT Hospital Encounter [place] [address] Discharge Disposition: Home Social History Tobacco Use [...] AM EDT Hospital Encounter [place] [phone] Arrived documented as of this encounter Procedures [...] on filedocumented in this encounter Care Teams Psychometrician Relationship Specialty Start Date End Date Donny Cooper MD [address] [place] [address] PCP - General Family Medicine 02/25/19 documented as of this encounter
--- OUTSIDE RECORDS SUMMARY | 2024-01-14 08:56 | XMS_ITS | Encounter Summary ---
Author Organization [facility] Address [address] [place] [address] Care Team Providers Care Impregnator Name Role Phone Clem Olvera MD Primary Care Provider [phone] Reason for Visit * Reason Onset Date Comments Other 04/04/2019 Transfer request for Pacer Care at [facility] Encounter Details Date Type Department Care Team (Late st Contact Info) Description 04/04/2019 Telephone [facility] Cardiology Clinic [address] [place] [address] Giselle Hill, INFRASTRUCTURE ENGINEER Other (Transfer request for Pacer Care at [facility]) Social History Tobacco Use Types Packs/Day Years [...] 04/04/2019 1503 EST I went into the [employer] Website and released pt to [facility] Pacer Clinic as requested. * Telephone Encounter - Suze Reynoso - 04/04/2019 1342 EST PT WILL BE HAVING HIS PACER CARE DONE AT [facility], PLEASE RELEASE HIS REMOTE MONITORING SO THAT THEY CAN PICK IT UP documented in this encounter Plan of Treatment Not on file documented as of this encounter Visit Diagnoses Not on filedocumented in this encounter Care Teams Impregnator Relationship Specialty Start Date End Date Clem Olvera MD [address] [place] [address] PCP - General 12/18/15 documented as of this encounter
--- OUTSIDE RECORDS SUMMARY | 2024-01-14 08:56 | XMS_ITS | Clinical Summary ---
Author Organization [facility] [place] [address] Care Team Providers Care Grocery Caddy Name Role Phone Donny Cooper MD Primary Care Provider [phone] Allergies No known active allergies Medications Medication [...] Care Team Description 01/05/2024 Telephone Cardiology at [address] [phone] Kanika Shell 12/28/2023 Notes Only Cardiology at [address] [phone] Kanika Shell 11/04/2023 10:00 AM EDT - 11/04/2023 11:59 PM EDT Hospital Encounter [place] [phone] Discharge Disposition: Home from Last 3 Months [...] AM EDT Hospital Encounter [place] [phone] Arrived Health Maintenance Due Date Last Done Comments Tdap adult 08/19/1959 Tetanus vaccine 08/19/1959 Zoster vaccine (1 of 2) 1990 Advance Directive 08/19/1995 Pneumoccocal Vaccine: 65+ (2 of 2 - PCV) 05/04/2009 05/04/2008 Covid-19 Vaccine (1 - season) 2024 Influenza (Flu) vaccine (1 o f 1 - Influenza standard series) 01/03/2024 02/01/2010, 03/06/2006, 02/24/2005 Medical Devices Implanted Type Area Chicken Dresser Device Identifier Shelf Expiration Date Model / Serial / Lot Mdt : [id number] : [id number] Implanted: (Quantity not on file) Cardiac Resynchronization Therapy - Defibrillator Chest [employer] - [id number] / [id number] / Care Teams Grocery Caddy Relationship Specialty Start Date End Date Donny Cooper MD [address] [place], [place] [address] PCP - General Family Medicine 02/25/19
--- OUTSIDE RECORDS SUMMARY | 2024-01-14 08:56 | XMS_ITS | Encounter Summary ---
Author Organization [facility] Address [address] [place] [address] Care Team Providers Care Cash Register Balancer Name Role Phone Clem Olvera MD Primary Care Provider Reason for Referral * Cardiology (3 - 10 Business Days) - Closed Specialty Diagnoses / Procedures Referred By [facility] Referred To Contact Diagnoses ICD (implantable cardioverter-defibrillator) battery depletion Pacemaker lead failure, initial encounter 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 Procedures IMPLANTABLE CARDIAC DEFIBRILLATOR PROCEDURE Navdeep Hurd MD [address] [place], [place] [address]A [address] [place] [address] Referral ID Status Reason Start Date Expiration Date Visits Re quested Visits Authorized [id number] Closed 02/13/2016 1 1 Encounter Details Date Type Department Care Team (Latest Contact Info) Description 02/13/2016 Pre-Procedure Orders Encounter [facility] CARDIOLOGY [address], [place] [address] Navdeep Hurd MD [address] [facility] [address] [place] [address] ICD (implantable cardioverter-defibril lator) battery [...] 8 EDT Narrative 02/27/2016 15:17 EDT *Cardiology* [address] [place] [address] Lead Revision (Report amended ) Patient: Nabil Iglesias ?Study Date: ?02/27/2016 ? Accession #: ? [id number] : ? 1940 Referring: Clem Olvera Attending: [...] wire a Nick MENDOZAW 6F ([facility]) 6 mm-40 mm balloon dilation still could [...] Venograms were performed in the [place] and [place] projections and a suitable mid-lateral LV branch [...] fascia. The leads were connected to a HACKLER DOLL WIGS-D device. Device and Lead detail in table [...] Implanted device: Medtronic - Viva Quad XT HACKLER DOLL WIGS-D DF4 - Serial number: [id number] Explanted device: Medtronic - Viva XT HACKLER DOLL WIGS-D DF4 - Serial number: [id number]. LEAD PARAMETERS + + + + + [...] + + + + + Serial number [id number] ? [id number] ?? [id number] ?? [id number] ? + + + + [...] Gulshan Drummond MD - 05/12/2016 *Cardiology* [address] [place] [address] Lead Revision (Report amended ) Patient: Nabil [...] over an 0.35 glide wire [facility] ([facility]) 6 mm-40 mm balloon dilation still could [...] Venograms were performed in the [place] and [place] projections and a suitable mid-lateral LV branch [...] fascia. The leads were connected to a HACKLER DOLL WIGS-D device. Device and Lead detail in table [...] Implanted device: Medtronic - Viva Quad XT HACKLER DOLL WIGS-D DF4 - Serial number: [id number] Explanted device: Medtronic - Viva XT HACKLER DOLL WIGS-D DF4 - Serial number: [id number]. LEAD PARAMETERS + + + + + + Lead # 1 2 3 4 + + + + + + Chamber RA RV LV LV + + + + + + Date 07/19/2002 07/18/2013 02/27/2016 07/18/2013 implanted + + + + + + Model St. Esa Medtronic Medtronic Enpath information [id number] Attain Epicardial Performa 4298 + + + + + + Serial number [id number] + + + + + + [...] situ documented in this encounter Care Teams Cash Register Balancer Relationship Specialty Start Date End Date Clem Olvera MD [address] [place] [address] PCP - General 12/18/15 documented as of this encounter
--- OUTSIDE RECORDS SUMMARY | 2024-01-14 08:56 | XMS_ITS | Encounter Summary ---
Author Organization [facility] Address [address] [place] [address] Care Team Providers Care Supervisory Investigative Specialist Name Role Phone Clem Olvera MD Primary Care Provider [phone] Encounter Details Date Type Department Care Team (Latest Contact Info) Description 12/20/2015 10:52 EDT - 12/20/2015 23:52 EDT Hospital Encounter [facility] Cardiovascular Unit [address] [place] [address] Navdeep Hurd MD [address] [place] [address] [address] Discharge Disposition: Home or Self [...] no need to beNPO or have a driver education road instructor. However, his will be accompanying him. They are driving someone to the airport [place] 1000 and then will come here and check-in around 1145. He agrees to have a shower. documented in this encounter Procedure Notes * Fantasma Dhillon MD - 12/20/2015 1356 EDT IR Brief Procedure Note Attending: Leo Putty Patcher: Alejo Pre-op Dx: Arrhythmia, need for pacemaker [...] infusion 50 mL/hr, intravenous, CONTINUOUS, Starting on Rgisel 12/20/15 at 1200, Until 12/21/15 at 0152, Routine, Preprocedure 1200 (Canceled Entry - Provider: Batch Job User Admin - Comment: Automatically canceled at discontinue of medication order) documented in this encounter Orders Medications Ordered That Michael ht Not Have Been Administered Count Last Ordered Date First Ordered Date sodium chloride 0.9 % (NS) infusion 1 12/19 documented in this encounter Care Teams Supervisory Investigative Specialist Relationship Specialty Start Date End Date Clem Olvera MD [address] [place] [address] PCP - General 12/18/15 documented as of this encounter
--- OUTSIDE RECORDS SUMMARY | 2024-01-14 08:56 | XMS_ITS | Clinical Summary ---
Author Organization [facility] Address [address] [place] [address] Care Team Providers Care General Internist And Physician Leader Name Role Phone Clem Olvera MD Primary Care Provider [phone] Allergies No known active allergies Medications Medication [...] PACEMAKER INSERTION 05/04/2002 - 05/03/20032013 second pacemaker [facility] Medical History Medical History Date Comments CAD [...] Screening 2005 COVID-19 Vaccine (2022- season) 2024 Insurance Payer Benefit Plan / Group Subscriber ID Effective Dates Phone Address Type MEDICARE MEDICARE A/B [id number] 2005-Prese nt [address] [place] [address] [place] [id number] 2022-Prese nt [address] [place] [address] Medicare ACO [place] Advance Directives For more information, please contact: [phone] * Full Code (Latest Code Status on File) Date Activated Date Inactivated Comments 02/27/2016 8:49 02/28/2016 15:40 Question Answer Comments Reason for decision includes: Full code consistent with overall plan of care Who participated in the discussion? Not Discusse d Care Teams General Internist And Physician Leader Relationship Specialty Start Date End Date Clem Olvera MD [address] [place] [address] PCP - General 12/18/15
--- OUTSIDE RECORDS SUMMARY | 2024-01-14 08:56 | XMS_ITS | Referral Summary ---
Author Organization [facility] Address [address] [place] [address] Care Team Providers Care Hogshead Mat Inspector Name Role Phone Clem Olvera MD Primary Care Provider [phone] Allergies No known active allergies Medications Medication [...] Advance Directives For more information, please contact: [phone] * Full Code (Latest Code Status on File) Date Activated Date Inactivated Comments 02/27/2016 8:49 02/28/2016 15:40 Question Answer Comments Reason for decision includes: Full code consistent with overall plan of care Who participated in the discussion? Not Discusse d Care Teams Hogshead Mat Inspector Relationship Specialty Start Date End Date Clem Olvera MD [address] [place] [id number] PCP - General 12/18/15
--- OUTSIDE RECORDS SUMMARY | 2024-01-14 08:56 | XMS_ITS | Encounter Summary ---
[place] [address] Care Team Providers Care Christian Education Director Name Role Phone Donny Cooper MD Primary Care Provider [phone] Encounter Details Date Type Department Care Team (Late st Contact Info) Description 01/05/2024 Telephone Cardiology at [address] [address] Kanika Shell Social History Tobacco [...] Hospital Encounter [place] [address] Arrived documented as of this encounter Visit Diagnoses Not on filedocumented in this encounter Care Teams Christian Education Director Relationship Specialty Start Date End Date Donny Cooper MD [address] [place] [address] PCP - General Family Medicine 02/25/19 documented as of this encounter
--- OUTSIDE RECORDS SUMMARY | 2024-01-14 08:56 | XMS_ITS | Encounter Summary ---
Author Organization [facility] Address [address] [place] [address] Care Team Providers Care Vending Machine Refiller Name Role Phone Unknown, Provider Primary Care Provider [phone] Clem Olvera MD Primary Care Provider [phone] Encounter Details Date Type Department Care Team (Late st Contact Info) Description 11/29/2015 Pre-Procedure Orders Encounter [facility] CARDIOLOGY [address] [place], [place] [id number] Navdeep Hurd MD [address] [place] [address] [address] Social History Tobacco Use Types [...] Patient: Nabil Streeter. Attending: Dr. Moran Scrrajinder Stock Analyst: Dr. Fantasma Dhillon History/indication: The patient [...] Patient: Nabil Streeter Attending: Dr. Dean Bailey Stock Analyst: Dr. Fantasma Dhillon History/indication: The patient [...] on filedocumented in this encounter Care Teams Vending Machine Refiller Relationship Specialty Start Date End Date Unknown, Provider, PCP - General 12/06/12 12/17/15 Clem Olvera MD [address] [place] [address] PCP - General 12/18/15 documented as of this encounter
--- OUTSIDE RECORDS SUMMARY | 2024-01-14 08:56 | XMS_ITS | Encounter Summary ---
[place] [address] Care Team Providers Care Stock Associate Name Role Phone Donny Cooper MD Primary Care Provider [phone] Encounter Details Date Type Department Care Team (Late st Contact Info) Description 12/28/2023 Notes Only Cardiology at [address] [address] Kanika Shell Social History Tobacco Use Types [...] AM EDT Hospital Encounter Non-Invasive [place] [address] Arrived documented as of this encounter Visit Diagnoses Not on filedocumented in this encounter Care Teams Stock Associate Relationship Specialty Start Date End Date Donny Cooper MD [address] [facility] [place] [address] PCP - General Family Medicine 02/25/19 documented as of this encounter
--- OUTSIDE RECORDS SUMMARY | 2024-01-14 08:57 | XMS_ITS | Encounter Summary ---
[place] [address] Care Team Providers Care Web Master Name Role Phone Donny Cooper MD Primary Care Provider [phone] Encounter Details Date Type Department Care Team (Latest Contact Info) Description 10/05/2022 10:00 AM EDT - 10/05/2022 11:59 PM EDT Hospital Encounter Non-Invasive [place] [address] Discharge Disposition: Home Social History Tobacco Use [...] AM EDT Hospital Encounter Non-Invasive [place] [address] Arrived documented as of this encounter Procedures [...] on filedocumented in this encounter Care Teams Web Master Relationship Specialty Start Date End Date Donny Cooper MD [address] [place] [address] PCP - General Family Medicine 02/25/19 documented as of this encounter
--- OUTSIDE RECORDS SUMMARY | 2024-01-14 08:57 | XMS_ITS | Encounter Summary ---
Author Organization [facility] [place] [address] Care Team Providers Care Inspector Conveyor Line Name Role Phone Marques Martinez MD Primary Care Provider [phone] Encounter Details Date Type Department Care Team (Late st Contact Info) Description 05/01/2010 3:10 PM EST Office Visit [place] [address] Jairon Fenton MD [facility] [place] [address] Discharge Disposition: Home Social History Tobacco Use [...] AM EDT Hospital Encounter Non-Invasive [place] [address] Arrived documented as of this encounter Visit Diagnoses Not on filedocumented in this encounter Care Teams Inspector Conveyor Line Relationship Specialty Start Date End Date Marques Martinez MD [address] [place] [address] PCP - General 04/01/10 04/08/11 documented as of this encounter
--- OUTSIDE RECORDS SUMMARY | 2024-01-14 08:57 | XMS_ITS | Encounter Summary ---
[place] [address] Care Team Providers Care Terminal Clerk Name Role Phone Marques Martinez MD Primary Care Provider Encounter Details Date Type Department Care Team (Late st Contact Info) Description 05/01/2010 2:40 PM EST Procedure visit [place] [address] Social History Tobacco Use Types Packs/Day Years [...] AM EDT Hospital Encounter Non-[place] [address] Arrived documented as of this encounter Visit Diagnoses Not on filedocumented in this encounter Care Teams Terminal Clerk Relationship Specialty Start Date End Date Marques Martinez MD [address] [place] [address] PCP - General 04/01/10 04/08/11 documented as of this encounter
--- OUTSIDE RECORDS SUMMARY | 2024-01-14 08:57 | XMS_ITS | Encounter Summary ---
Author Organization [facility] [place] [address] Care Team Providers Care Ruling Machine Operator Name Role Phone Donny Cooper MD Primary Care Provider [phone] Encounter Details Date Type Department Care Team (Latest Contact Info) Description 06/25/2021 3:23 PM EST - 06/25/2021 11:59 PM EST Hospital Encounter Non-Invasive [place] [address] Alber eSals MD [facility] [place] [address] Cardiomyopathy, primary Discharge Disposition: Home Social History [...] AM EDT Hospital Encounter Non-Invasive [place] [address] Arrived documented as of this encounter Procedures Procedure Name Priority Date/Time Associated Diagnosis Comments ICD INTERROGATION 3 MONTH Routine 06/25/2021 3:24 PM EST Cardiomyopathy, primary documented in this encounter Results * ICD INTERROGATION 3 MONTH (06/25/2021 3:24 PM EST) Anatomical Region Laterality Modality Other Narrative 06/25/2021 3:42 PM EST Cardiac Device Remote Monitoring Report Summary Medtronic Carelink Device: SKIAGRAPHER-D Model: VIVA QUAD Battery: 2.95 v, estimated longevity 2 years 6 months Pacing percentage: 90% SKIAGRAPHER paced Events: Presenting rhythm: atrial paced/biventricular paced Frequent PVC's Impression Normal device function Follow Up As per schedule - in-clinic and remote ALBER SEALS MD 06/25/21 Alber Seals MD IMPLANTABLE CARDIAC DEVICE documented in this encounter Visit Diagnoses Diagnosis Cardiomyopathy, primary Other primary cardiomyopathies documented in this encounter Care Teams Ruling Machine Operator Relationship Specialty Start Date End Date Donny Cooper MD [address] [place] [address] PCP - General Family Medicine 02/25/19 documented as of this encounter
--- OUTSIDE RECORDS SUMMARY | 2024-01-14 08:57 | XMS_ITS | Encounter Summary ---
[place] [address] Care Team Providers Care Dispensing Optician Apprentice Name Role Phone Donny Coopre MD Primary Care Provider [phone] Encounter Details Date Type Department Care Team (Latest Contact Info) Description 01/03/2023 10:00 AM EDT - 01/03/2023 11:59 PM EDT Hospital Encounter Non-Invasive [place] [address] Discharge Disposition: Home Social History Tobacco Use [...] AM EDT Hospital Encounter Non-Invasive [place] [address] Arrived documented as of this encounter Procedures [...] on filedocumented in this encounter Care Teams Dispensing Optician Apprentice Relationship Specialty Start Date End Date Donny Cooper MD [address] [place] [address] PCP - General Family Medicine 02/25/19 documented as of this encounter
--- OUTSIDE RECORDS SUMMARY | 2024-01-14 08:57 | XMS_ITS | Encounter Summary ---
Author Organization [facility] [place] [address] Care Team Providers Care Reel Tender Name Role Phone Donny Cooper MD Primary Care Provider [phone] Encounter Details Date Type Department Care Team (Latest Contact Info) Description 06/13/2020 12:35 PM EST - 06/13/2020 11:59 PM EST Hospital Encounter Non-[place]vasive [place] [address] Alber Seals MD [facility] [place] [address] Cardiomyopathy, primary Discharge Disposition: Home Social History [...] Hospital Encounter Non-[place] [address] Arrived documented as of this encounter Procedures Procedure Name Priority Date/Time Associated Diagnosis Comments ICD INTERROGATION 3 MONTH Routine 06/13/2020 12:36 PM EST Cardiomyopathy, primary documented in this encounter Results * ICD INTERROGATION 3 MONTH (06/13/2020 12:36 PM EST) Anatomical Region Laterality Modality Other Narrative 06/14/2020 10:38 AM EST Cardiac Device Remote Monitoring Report Summary Medtronic PokitDok 06/14/20 Device: CIVIL LABORATORY TECHNICIAN-D Model: VIVA QUAD Battery: 2.96 v, estimated longevity 3 years, 11 months Pacing percentage: 78% ventricular paced Events: The presenting rhythm is atrial paced with biventricular pacing and frequent ventricular premature contractions No significant arrhythmias Impression Normal device function; suboptimal CIVIL LABORATORY TECHNICIAN pacing likely secondary to frequent PVCs. Should consider in clinic follow-up for further evaluation Follow Up As per schedule - in-clinic and remote ALBER SEALS MD Alber Seals MD IMPLANTABLE CARDIAC DEVICE documented in this encounter Visit Diagnoses Diagnosis Cardiomyopathy, primary Other primary cardiomyopathies documented in this encounter Care Teams Reel Tender Relationship Specialty Start Date End Date Donny Cooper MD [address] [place] [address] PCP - General Family Medicine 02/25/19 documented as of this encounter
--- OUTSIDE RECORDS SUMMARY | 2024-01-14 08:57 | XMS_ITS | Encounter Summary ---
[place] [address] Care Team Providers Care Folder Seamer Name Role Phone Donny Cooper MD Primary Care Provider [phone] Encounter Details Date Type Department Care Team (Late st Contact Info) Description 06/14/2020 Telephone Cardiology at [address] [address] Nhung Briggs Social History Tobacco Use Types [...] Miscellaneous Notes * Telephone Encounter - Nhung Aleln - 06/14/2020 11:[address] Seals, pt should be seen for suboptimal biventricular pacing. Spoke to pt. He would like to be seen at [facility]. Email sent to Brittaney Hernandez at [facility] asking her to reach out to pt to set up the appt with either Dr. Arguelles or LANG Albert. Nhung Allen Electrophysiology Scheduling [id number] option 2 documented in this encounter Plan of Treatment Upcoming Encounters Date Type Department Care Team (Late st Contact Info) Description 02/02/2024 10:00 AM EDT Hospital Encounter Non-[place] [address] Arrived documented as of this encounter Visit Diagnoses Not on filedocumented in this encounter Care Teams Folder Seamer Relationship Specialty Start Date End Date Donny Cooper MD [address] [place] [address] PCP - General Family Medicine 02/25/19 documented as of this encounter
--- OUTSIDE RECORDS SUMMARY | 2024-01-14 08:57 | XMS_ITS | Encounter Summary ---
[place] [address] Care Team Providers Care Wrecker Operator Name Role Phone Donny Cooper MD Primary Care Provider [phone] Encounter Details Date Type Department Care Team (Latest Contact Info) Description 07/02/2023 10:00 AM EST - 07/02/2023 11:59 PM EST Hospital Encounter Non-Invasive [place] [address] Discharge Disposition: Home Social History Tobacco Use [...] EDT Hospital Encounter Non-Invasive [place] [address] Arrived documented as of this encounter Visit Diagnoses Not on filedocumented in this encounter Care Teams Wrecker Operator Relationship Specialty Start Date End Date Donny Cooper MD [address] [place] [address] PCP - General Family Medicine 02/25/19 documented as of this encounter
--- OUTSIDE RECORDS SUMMARY | 2024-01-14 08:57 | XMS_ITS | Encounter Summary ---
Author Organization [facility] [place] [address] Care Team Providers Care Forging Die Finisher Name Role Phone Marques Martinez MD Primary Care Provider [phone] Reason for Visit * Reason Comments Follow Up Fracture PATELLA FX DOI 03/23 10 Encounter Details Date Type Department Care Team (Late st Contact Info) Description 10/09/2010 12:40 PM EDT Office [place] [address] Jairon Gustafson MD [facility] ORTHOPAEDIC [place] [address] Jose Francisco Bee PA [facility] ORTHOPAEDIC [place] [address] Quadriceps tendon rupture (Primary Dx) Discharge Disposition: [...] AM EDT Hospital Encounter Non-[place]vasive [place] [address] Arrived documented as of this encounter Visit Diagnoses Diagnosis Quadriceps tendon rupture- Primary Sprain and strain of other specified sites of knee and leg documented in this encounter Care Teams Forging Die Finisher Relationship Specialty Start Date End Date Marques Martinez MD [address] [place] [address] PCP - General 04/01/10 04/08/11 documented as of this encounter
--- OUTSIDE RECORDS SUMMARY | 2024-01-14 08:57 | XMS_ITS | Encounter Summary ---
Author Organization [facility] [place] [address] Care Team Providers Care Water Truck Driver Name Role Phone Marques Martinez MD Primary Care Provider [phone] Encounter Details Date Type Department Care Team (Late st Contact Info) Description 10/09/2010 11:35 AM EDT - 10/09/2010 11:59 PM EDT Hospital Encounter XRay at [address] [place] [address] Social History Tobacco Use Types Packs/Day Years [...] AM EDT Hospital Encounter Non-Invasive Cardiology Lab [facility] [place] [address] Arrived documented as of this encounter Visit Diagnoses Not on filedocumented in this encounter Care Teams Water Truck Driver Relationship Specialty Start Date End Date Marques Martinez MD [address] [place] [address] PCP - General 04/01/10 04/08/11 documented as of this encounter
--- OUTSIDE RECORDS SUMMARY | 2024-01-14 08:57 | XMS_ITS | Encounter Summary ---
Author Organization [facility] [place] [address] Care Team Providers Care Optician Apprentice Name Role Phone Marques Martinez MD Primary Care Provider [phone] Encounter Details Date Type Department Care Team (Late st Contact Info) Description 03/30/2010 [place] [address] Javier Barajas MD [facility] DR [place] [address] Social History Tobacco Use Types Packs/Day Years [...] AM EDT Hospital Encounter Non-Invasive [place] [address] Arrived documented as of this encounter Procedures [...] AM EST Jairon Fenton MD CHEMISTRY ORDERABLES [facility] * (ABNORMAL) CREATININE, SERUM (04/01/2010 6:09 [...] Fenton MD CHEMISTRY ORDERABLES Performing Organization Address [facility] de Phone Number CERNER [facility] * BUN (04/01/2010 6:09 AM EST) Blood Urea Nitrogen 12 10 - 20 mg/dL [facility] Blood specimen (specimen) 04/01/2010 6:09 AM EST 04/01/2010 6:09 AM EST Jairon Fenton MD CHEMISTRY ORDERABLES Performing Organization Address [facility] de Phone Number CERNER [...] MD HEMATOLOGY ORDERABLE S Performing Organization Address [facility] de Phone Number CERNER [...] Fenton MD CHEMISTRY ORDERABLES Performing Organization Address [facility] Phone Number CERIVIS MILLENNIUM * ELECTROLYTE PANEL [...] Fenton MD CHEMISTRY ORDERABLES Performing Organization Address [facility] Co de Phone Number CERIVIS MILLENNIUM * CREATININE, SERUM (03/30/2010 6:05 PM EST) Creatinine 0.87 0.80 - 1.50 mg/dL [facility] Est Glomerular Filtration Rate >60 >=60 [facility] Comment: The National Kidney Disease Education [...] Nitrogen 18 10 - 20 mg/dL [facility] Blood specimen (specimen) 03/30/2010 6:05 PM EST 03/30/2010 6:13 PM EST Jairon Fenton MD CHEMISTRY ORDERABLES Performing Organization Address [facility] de Phone Number DEJA SEGOVIA * APTT (03/30/2010 6:05 PM EST) Partial Thromboplastin Time 26 25 - 37 sec [facility] Comment: Recommended therapeutic PTT range for full dose unfractionated heparin is 80-114 seconds. Blood specimen (specimen) 03/30/2010 6:05 PM EST 03/30/2010 6:14 PM EST Jairon Fenton MD HEMATOLOGY ORDERABLE S Performing Organization Address [facility] Phone Number DEJA SEGOVIA * PROTIME-INR (03/30/2010 6:05 PM EST) Prothrombin Time 14.2 12.3 - 14.7 sec [facility] Comment: [facility] Transfusion Committee Guidelines: INR less than 2.0, PTT less than OR equal to 43.5 seconds, or Fibrinogen greater than or equal to 100 mg/dl indicate adequate procoagulant activity for hemostasis in patients without underlying bleeding disorders. International Normalization Ratio 1.1 0.9 - 1.1 [facility] Blood specimen (specimen) 03/30/2010 6:05 PM EST 03/30/2010 6:14 PM EST Jairon Fenton MD HEMATOLOGY ORDERABLE S Performing Organization Address [facility] de Phone Number DEJA [...] Deviation 44.2 35.0 - 46.[address] [facility] RDW coefficient of variation 13.1 10.9 - 14.4 % [facility] Mean Platelet Volume 10.6 9.0 - 12.0 fL [facility] Blood specimen (specimen) 03/30/2010 6:05 PM EST 03/30/2010 6:13 PM EST Jairon Fenton MD HEMATOLOGY ORDERABLE S Performing Organization Address [facility] Co de Phone Number [facility] * REFLEX LAB-ANTIBODY SCREEN (03/30/2010 3:17 PM EST) [facility] Ab Screen Interp Negative [facility] Expires at [id number] on: [id number] [facility] Blood specimen (specimen) 03/30/2010 3:17 PM EST 03/30/2010 3:17 PM EST Javier Barajas MD BLOOD BANK LAB ORDER PRECIOUS Performing Organization Address [facility] Co de Phone Number [facility] * REFLEX LAB-ABO/RH (03/30/2010 3:17 PM EST) [facility] ABORH Type A Pos [facility] Blood specimen (specimen) 03/30/2010 3:17 PM EST 03/30/2010 3:17 PM EST Javier Barajas MD BLOOD BANK LAB ORDER PRECIOUS Performing Organization Address [facility] Co de Phone Number [facility] * ELECTROLYTE PANEL (03/30/2010 2:50 PM EST) [facility] Sodium 135 135 - 145 mmol/L [facility] Potassium 4.3 3.5 - 5.0 mmol/L [facility] Comment: Please note: ??Patients with WBC [...] Barajas MD CHEMISTRY ORDERABLES Performing Organization Address [facility] Phone Number [facility] * BUN (03/30/2010 2:50 PM EST) Blood Urea Nitrogen 18 10 - 20 mg/dL [facility] Blood specimen (specimen) 03/30/2010 2:50 PM EST 03/30/2010 3:05 PM EST Javier Barajas MD CHEMISTRY ORDERABLES Performing Organization Address [facility] Phone Number [facility] * GLUCOSE, RANDOM (03/30/2010 2:50 PM EST) Glucose 95 <=199 mg/dL [facility] Comment:Diabetes: >=200 mg/d L plus symptoms Blood specimen (specimen) 03/30/2010 2:50 PM EST 03/30/2010 3:05 PM EST Javier Barajas MD CHEMISTRY ORDERABLES Performing Organization Address [facility] Phone Number [facility] * APTT (03/30/2010 2:50 PM EST) Partial Thromboplastin Time 25 25 - [address] [facility] Comment: Recommended therapeutic PTT range for full dose unfractionated heparin is 80-114 seconds. Blood specimen (specimen) 03/30/2010 2:50 PM EST 03/30/2010 3:06 PM EST Javier Barajas MD HEMATOLOGY ORDERABLE S Performing Organization Address [facility] Phone Number [facility] * PROTIME-INR (03/30/2010 2:50 PM EST) Prothrombin Time 14.1 12.3 - 14.[address] [facility] Comment: [facility] Transfusion [...] on filedocumented in this encounter Care Teams Optician Apprentice Relationship Specialty Start Date End Date Marques Martinez MD [address] [place] [address] PCP - General 04/01/10 04/08/11 documented as of this encounter
--- OUTSIDE RECORDS SUMMARY | 2024-01-14 08:57 | XMS_ITS | Encounter Summary ---
[place] [address] Care Team Providers Care Trailer Driver Name Role Phone Donny Cooper MD Primary Care Provider [phone] Encounter Details Date Type Department Care Team [...] AM EDT Hospital Encounter Non-Invasive [place] [address] Arrived documented as of this encounter Visit Diagnoses Not on filedocumented in this encounter Care Teams Trailer Driver Relationship Specialty Start Date End Date Donny Cooper MD [address] [place] [address] PCP - General Family Medicine 02/25/19 documented as of this encounter
--- OUTSIDE RECORDS SUMMARY | 2024-01-14 08:57 | XMS_ITS | Encounter Summary ---
[place] [address] Care Team Providers Care Engineering Department Chair Name Role Phone Donny Cooper MD Primary Care Provider [phone] Encounter Details Date Type Department Care Team (Latest Contact Info) Description 04/03/2023 10:00 AM EST - 04/03/2023 11:59 PM [facility] Hospital Encounter Non-Invasive Cardiology [place] [address] Discharge Disposition: Home Social History Tobacco Use [...] AM EDT Hospital Encounter Non-Invasive Cardiology [place] [address] Arrived documented as of this [...] on filedocumented in this encounter Care Teams Engineering Department Chair Relationship Specialty Start Date End Date Donny Cooper MD [address] [place] [address] PCP - General Family Medicine 02/25/19 documented as of this encounter
--- OUTSIDE RECORDS SUMMARY | 2024-01-14 08:57 | XMS_ITS | Encounter Summary ---
[place] [address] Care Team Providers Care Screen And Cyclone Repairer Name Role Phone Marques Martinez MD Primary Care Provider [phone] Encounter Details Date Type Department Care Team (Late st Contact Info) Description 06/12/2010 2:00 PM EST Procedure visit [place] [address] Social History Tobacco Use Types Packs/Day Years [...] AM EDT Hospital Encounter Non-[place] [address] Arrived documented as of this encounter Visit Diagnoses Not on filedocumented in this encounter Care Teams Screen And Cyclone Repairer Relationship Specialty Start Date End Date Marques Martinez MD [address] [place] [address] PCP - General 04/01/10 04/08/11 documented as of this encounter
--- OUTSIDE RECORDS SUMMARY | 2024-01-14 08:57 | XMS_ITS | Encounter Summary ---
Author Organization [facility] [place] [address] Care Team Providers Care Designer And Patternmaker Name Role Phone Donny Cooper MD Primary Care Provider [phone] Encounter Details Date Type Department Care Team (Late st Contact Info) Description 07/26/2019 Notes Only Cardiology at [address] [address] Maged Arguelles MD [facility] [place] [address] Social History Tobacco Use Types Packs/Day Years [...] his Medtronic biventricular ICD is reviewed. Suboptimal COMPONENT LAB TECH at 84%. Normal device function. Awaiting Holter to assess PVC burden. Maged Arguelles MD [facility] Cardiac Elect[facility] 07/26/2019 9:04 AM documented in this encounter Plan of Treatment Upcoming Encounters Date Type Department Care Team (Late st Contact Info) Description 02/02/2024 10:00 AM EDT Hospital Encounter Non-Invasive Cardiology [place] [address] Arrived documented as of this encounter Visit Diagnoses Not on filedocumented in this encounter Care Teams Designer And Patternmaker Relationship Specialty Start Date End Date Donny Cooper MD [address] [place] [address] PCP - General Family Medicine 02/25/19 documented as of this encounter
--- OUTSIDE RECORDS SUMMARY | 2024-01-14 08:57 | XMS_ITS | Encounter Summary ---
Author Organization [facility] [place] [address] Care Team Providers Care Flat Clothier Name Role Phone Marques Martinez MD Primary Care Provider [phone] Encounter Details Date Type Department Care Team (Late st Contact Info) Description 06/12/2010 2:10 PM EST Office [place] [address] Jairon Fenton MD [facility] [place] [address] Discharge Disposition: Home Social History Tobacco Use [...] EDT Hospital Encounter Non-Invasive [place] [address] Arrived documented as of this encounter Visit Diagnoses Not on filedocumented in this encounter Care Teams Flat Clothier Relationship Specialty Start Date End Date Marques Martinez MD [address] [place] [address] PCP - General 04/01/10 04/08/11 documented as of this encounter
--- OUTSIDE RECORDS SUMMARY | 2024-01-14 08:57 | XMS_ITS | Encounter Summary ---
Author Organization [facility] [place] [address] Care Team Providers Care Distribution Technician Name Role Phone Marques Martinez MD Primary Care Provider [phone] Encounter Details Date Type Department Care Team (Late st Contact Info) Description 09/11/2010 Orders [place] [address] Jairon Fenton MD [facility] [address] [place] [address] Fracture of patella, left, closed (Primary Dx) [...] AM EDT Hospital Encounter Non-Invasive [place]iology [place] [address] Arrived documented as of this encounter Visit Diagnoses Diagnosis Fracture of patella, left, closed- Primary Closed fracture of patella documented in this encounter Care Teams Distribution Technician Relationship Specialty Start Date End Date Marques Martinez MD [address] [place] [address] PCP - General 04/01/10 04/08/11 documented as of this encounter
--- OUTSIDE RECORDS SUMMARY | 2024-01-14 08:57 | XMS_ITS | Encounter Summary ---
Author [facility] [place] [address] Care Team Providers Care Plunger Scoop Operator Name Role Phone Donny Cooper MD Primary Care Provider [phone] Encounter Details Date Type Department Care Team (Latest Contact Info) Description 10/03/2022 10:00 AM EDT Office Visit Cardiology at [address] [address] Eleno No PA [facility] [address] Cardiomyopathy, primary; Presence of cardiac resynchronization therapy defibrillator (MACHINE PACK ASSEMBLER-D); Diaphragmatic stimulation by cardiac pacemaker, initial encounter [...] original note were not included. Cardiac Device MACHINE PACK ASSEMBLER-D Programming Evaluation Nabil Iglesias [id number] 10/03/2022 History: Mr. 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 [...] AM EDT Hospital Encounter [place] [address] Arrived documented as of this encounter Procedures Procedure Name Priority Date/Time Associated Diagnosis Comments EKG 12-LEAD Routine 10/03/2022 11:00 AM EDT Cardiomyopathy, primary Presence of cardiac resynchronization therapy defibrillator (MACHINE PACK ASSEMBLER-D) Diaphragmatic stimulation by cardiac pacemaker, initial encounter documented in this encounter Results * EKG 12 Lead (10/03/2022 11:00 AM EDT) Ventricular rate 74 BPM MUSE SYSTEM Atrial Rate 74 BPM MUSE SYSTEM P-R Interval 154 ms MUSE SYSTEM QRS Duration 162 ms MUSE SYSTEM Q-T Interval 470 ms MUSE SYSTEM QTC Calculated (Bezet) 521 ms MUSE SYSTEM Calculated P [place] 30 degrees MUSE SYSTEM Calculated R [place] -98 degrees MUSE SYSTEM Calculated T [place] 41 degrees MUSE SYSTEM INTERPRETATION Atrial-sense d [...] cardiomyopathies Presence of cardiac resynchronization therapy defibrillator (MACHINE PACK ASSEMBLER-D) Diaphragmatic stimulation by cardiac pacemaker, initial encounter documented in this encounter Care Teams Plunger Scoop Operator Relationship Specialty Start Date End Date Donny Cooper MD [address] [place] [address] PCP - General Family Medicine 02/25/19 documented as of this encounter
--- OUTSIDE RECORDS SUMMARY | 2024-01-14 08:57 | XMS_ITS | Encounter Summary ---
[place] [address] Care Team Providers Care Nursing Consultant Name Role Phone Donny Cooper MD Primary Care Provider [phone] Encounter Details Date Type Department Care Team (Late st Contact Info) Description 03/17/2019 Telephone Cardiology at [address] [address] Sheri Quinn LNA Social History [...] 11:46 AM EST Medication list reviewed with [facility] list. Please review with patient at next clinic visit. documented in this encounter Plan of Treatment Upcoming Encounters Date Type Department Care Team (Late st Contact Info) Description 02/02/2024 10:00 AM EDT Hospital Encounter Non-Invasive [place] [address] Arrived documented as of this encounter Visit Diagnoses Not on filedocumented in this encounter Care Teams Nursing Consultant Relationship Specialty Start Date End Date Donny Cooper MD [address] [place] [address] PCP - General Family Medicine 02/25/19 documented as of this encounter
--- OUTSIDE RECORDS SUMMARY | 2024-01-14 08:57 | XMS_ITS | Encounter Summary ---
[place] [address] Care Team Providers Care Internal Combustion Engineer Name Role Phone Marques Martinez MD Primary Care Provider [phone] Encounter Details Date Type Department Care Team (Late st Contact Info) Description 10/03/2010 [place] [address] Marina Orosco, JADON Social History Tobacco Use [...] AM EDT Hospital Encounter Non-Invasive [place] [address] Arrived documented as of this encounter Visit Diagnoses Not on filedocumented in this encounter Care Teams Internal Combustion Engineer Relationship Specialty Start Date End Date Marques Martinez MD [address] [place] [address] PCP - General 04/01/10 04/08/11 documented as of this encounter
--- OUTSIDE RECORDS SUMMARY | 2024-01-14 08:57 | XMS_ITS | Encounter Summary ---
Author Organization [facility] [place] [address] Care Team Providers Care Facilities Operator Name Role Phone Clem Olvera MD Primary Care Provider [phone] Reason for Visit * Reason Comments Follow Up Fracture SP PATELLA FX DO12/12 DOI 03/30/10 Encounter Details Date Type Department Care Team (Late st Contact Info) Description 04/09/2011 1:30 PM EST Office [place] [address] Jairon Gustafson MD [facility] [place] [address] Jose Francisco Bee PA [facility] [place] [address] Patella fracture (Primary Dx) Discharge Disposition: Home [...] Hospital Encounter Non-[place] [address] Arrived documented as of this encounter Visit Diagnoses Diagnosis Patella fracture- Primary Closed fracture of patella documented in this encounter Care Teams Facilities Operator Relationship Specialty Start Date End Date Clem Olvera MD [address] [place] [address] PCP - General 04/09/11 02/24/19 documented as of this encounter
--- OUTSIDE RECORDS SUMMARY | 2024-01-14 08:57 | XMS_ITS | Encounter Summary ---
Author Organization [facility] [place] [address] Care Team Providers Care Slurry Worker Name Role Phone Donny Cooper MD Primary Care Provider [phone] Encounter Details Date Type Department Care Team (Latest Contact Info) Description 12/18/2020 11:57 AM EDT - 12/18/2020 11:59 PM EDT Hospital Encounter Non-Invasive [place] [address] Maged Arguelles MD [facility] [place] [address] Cardiomyopathy, primary Discharge Disposition: Home Social History [...] AM EDT Hospital Encounter Non-Invasive [place] [address] Arrived documented as of this encounter Procedures Procedure Name Priority Date/Time Associated Diagnosis Comments ICD INTERROGATION 3 MONTH Routine 12/18/2020 12:00 PM EDT Cardiomyopathy, primary documented in this encounter Results * ICD INTERROGATION 3 MONTH (12/18/2020 12:00 PM EDT) Anatomical Region Laterality Modality Other Narrative 12/23/2020 11:08 PM EDT MDT PATIENT SERVICE REP-D remote reviewed. Normal device function. Inadequate PATIENT SERVICE REP at 80%. Maged Arguelles MD [facility] 12/23/2020 11:06 PM Maged Arguelles MD IMPLANTABLE CARDIAC DEVICE documented in this encounter Visit Diagnoses Diagnosis Cardiomyopathy, primary Other primary cardiomyopathies documented in this encounter Care Teams Slurry Worker Relationship Specialty Start Date End Date Donny Cooper MD [address] [facility] [place] [address] PCP - General Family Medicine 02/25/19 documented as of this encounter
--- OUTSIDE RECORDS SUMMARY | 2024-01-14 08:57 | XMS_ITS | Encounter Summary ---
[place] [address] Care Team Providers Care Licensed Professional Counselor Name Role Phone Donny Cooper MD Primary Care Provider [phone] Encounter Details Date Type Department Care Team (Latest Contact Info) Description 07/07/2022 10:00 AM EST - 07/07/2022 11:59 PM EST Hospital Encounter [place] [address] Discharge Disposition: Home Social History Tobacco Use [...] AM EDT Hospital Encounter Non[place] [address] Arrived documented as of this [...] on filedocumented in this encounter Care Teams Licensed Professional Counselor Relationship Specialty Start Date End Date Donny Cooper MD [address] [place] [address] PCP - General Family Medicine 02/25/19 documented as of this encounter
--- OUTSIDE RECORDS SUMMARY | 2024-01-14 08:57 | XMS_ITS | Encounter Summary ---
[place] [address] Care Team Providers Care Ophthalmologist Name Role Phone Donny Cooper MD Primary Care Provider [phone] Encounter Details Date Type Department Care Team (Latest Contact Info) Description 04/08/2022 10:00 AM EST - 04/08/2022 11:59 PM [facility] Hospital Encounter Non-Invasive [place] [address] Discharge Disposition: Home Social History Tobacco Use [...] EDT Hospital Encounter Non-Invasive [place] [address] Arrived documented as of this [...] on filedocumented in this encounter Care Teams Ophthalmologist Relationship Specialty Start Date End Date Donny Cooper MD [address] [place] [address] PCP - General Family Medicine 02/25/19 documented as of this encounter
[2024-01-14 09:17] VITALS: BP 129/72; PULSE 74
--- OUTSIDE RECORDS SUMMARY | 2024-01-19 08:06 | XMS_ITS | Encounter Summary ---
Author Organization [facility] [place] [address] Care Team Providers Care Scaffold Builder Name Role Phone Donny Cooper MD Primary Care Provider [phone] Encounter Details Date Type Department Care Team (Latest Contact Info) Description 06/25/2021 3:23 PM EST - 06/25/2021 11:59 PM EST Hospital Encounter [place] [address] Alber Seals MD [facility] [place] [address] Cardiomyopathy, primary Discharge Disposition: Home Social History [...] Hospital Encounter [place] [address] Arrived documented as of this encounter Procedures Procedure Name Priority Date/Time Associated Diagnosis Comments ICD INTERROGATION 3 MONTH Routine 06/25/2021 3:24 PM EST Cardiomyopathy, primary documented in this encounter Results * ICD INTERROGATION 3 MONTH (06/25/2021 3:24 PM EST) Anatomical Region Laterality Modality Other Narrative 06/25/2021 3:42 PM EST Cardiac Device Remote Monitoring Report Summary Medtronic Carelink Device: FOREMAN/PROJECT MANAGER-D Model: VIVA QUAD Battery: 2.95 v, estimated longevity 2 years 6 months Pacing percentage: 90% FOREMAN/PROJECT MANAGER paced Events: Presenting rhythm: atrial paced/biventricular paced Frequent PVC's Impression Normal device function Follow Up As per schedule - in-clinic and remote ALBER SEALS MD 06/25/21 Alber Seals MD IMPLANTABLE CARDIAC DEVICE documented in this encounter Visit Diagnoses Diagnosis Cardiomyopathy, primary Other primary cardiomyopathies documented in this encounter Care Teams Scaffold Builder Relationship Specialty Start Date End Date Donny Cooper MD [address] [place] [address] PCP - General Family Medicine 02/25/19 documented as of this encounter
--- OUTSIDE RECORDS SUMMARY | 2024-01-19 08:06 | XMS_ITS | Encounter Summary ---
Author Organization Formerly [facility] [place] [address] Care Team Providers Care Materials Engineering Technician Name Role Phone Donny Cooper MD Primary Care Provider [phone] Encounter Details Date Type Department Care Team (Latest Contact Info) Description 12/18/2020 11:57 AM EDT - 12/18/2020 11:59 PM EDT Hospital Encounter [place] [address] Maged Arguelles MD [facility] ELECT[place] [address] Cardiomyopathy, primary Discharge Disposition: Home Social History [...] AM EDT Hospital Encounter Non-[place] [address] Arrived documented as of this encounter Procedures Procedure Name Priority Date/Time Associated Diagnosis Comments ICD INTERROGATION 3 MONTH Routine 12/18/2020 12:00 PM EDT Cardiomyopathy, primary documented in this encounter Results * ICD INTERROGATION 3 MONTH (12/18/2020 12:00 PM EDT) Anatomical Region Laterality Modality Other Narrative 12/23/2020 11:08 PM EDT MDT CARBONATION EQUIPMENT TENDER-D remote reviewed. Normal device function. Inadequate CARBONATION EQUIPMENT TENDER at 80%. Maged Arguelles MD [facility] Cardiac Electrophysiology 12/23/2020 11:06 PM Maged Arguelles MD IMPLANTABLE CARDIAC DEVICE documented in this encounter Visit Diagnoses Diagnosis Cardiomyopathy, primary Other primary cardiomyopathies documented in this encounter Care Teams Materials Engineering Technician Relationship Specialty Start Date End Date Donny Cooper MD [address] [facility] [place] [address] PCP - General Family Medicine 02/25/19 documented as of this encounter
--- OUTSIDE RECORDS SUMMARY | 2024-01-19 08:06 | XMS_ITS | Encounter Summary ---
Author Organization [facility] Address [address] [place] [address] Care Team Providers Care Cost And Sales Record Supervisor Name Role Phone Clem Olvera MD Primary Care Provider [phone] Reason for Visit * Reason Onset Date Comments Appointment Related 10/23/2016 Check for fo llow up of pacer Encounter Details Date Type Department Care Team ([facility] Contact Info) Description 10/23/2016 Telephone [facility] Cardiology - [address] [place] [address] Pacemaker, Pace Appointment Related (Check [...] - 10/23/2016 1507 EDT Spoke with Mrs. Igelsias who stated that Nabil had his pacemaker checked in [place] where they are for the winter. They have some back and are being followed by Dr. Hurd at [facility]. documented in this encounter Plan of Treatment Not on file documented as of this encounter Visit Diagnoses Not on filedocumented in this encounter Care Teams Cost And Sales Record Supervisor Relationship Specialty Start Date End Date Clem Olvera MD [address] [place] [address] PCP - General 12/18/15 documented as of this encounter
--- OUTSIDE RECORDS SUMMARY | 2024-01-19 08:06 | XMS_ITS | Encounter Summary ---
Author Organization [facility] [place] [address] Care Team Providers Care Greens Picker Name Role Phone Donny Cooper MD Primary Care Provider [phone] Encounter Details Date Type Department Care Team (Latest Contact Info) Description 10/03/2022 10:00 AM EDT Office Visit Cardiology at [address] [address] [place]eno No [place] [facility] [place] [address] Cardiomyopathy, primary; Presence of cardiac resynchronization therapy defibrillator (PROBATION OFFICER-D); Diaphragmatic stimulation by cardiac pacemaker, initial encounter [...] original note were not included. Cardiac Device PROBATION OFFICER-D Programming Evaluation Nabil Iglesias [id number] 10/03/2022 History: Mr. 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 [...] AM EDT Hospital Encounter Non-Invasive [place] [address] Arrived documented as of this encounter Procedures Procedure Name Priority Date/Time Associated Diagnosis Comments EKG 12-LEAD Routine 10/03/2022 11:00 AM EDT Cardiomyopathy, primary Presence of cardiac resynchronization therapy defibrillator (PROBATION OFFICER-D) Diaphragmatic stimulation by cardiac pacemaker, initial encounter documented in this encounter Results * EKG 12 Lead (10/03/2022 11:00 AM EDT) Ventricular rate 74 BPM MUSE SYSTEM Atrial Rate 74 BPM MUSE SYSTEM P-R Interval 154 ms MUSE SYSTEM QRS Duration 162 ms MUSE SYSTEM Q-T Interval 470 ms MUSE SYSTEM QTC Calculated (Bezet) 521 ms MUSE SYSTEM Calculated P Tappen 30 degrees MUSE SYSTEM Calculated R Tappen -98 degrees MUSE SYSTEM Calculated T Tappen 41 degrees MUSE SYSTEM INTERPRETATION Atrial-sense d [...] cardiomyopathies Presence of cardiac resynchronization therapy defibrillator (PROBATION OFFICER-D) Diaphragmatic stimulation by cardiac pacemaker, initial encounter documented in this encounter Care Teams Greens Picker Relationship Specialty Start Date End Date Donny Cooper MD [address] [place] [address] PCP - General Family Medicine 02/25/19 documented as of this encounter
--- OUTSIDE RECORDS SUMMARY | 2024-01-19 08:06 | XMS_ITS | Encounter Summary ---
Author Organization [facility] Address [address] [place] [address] Care Team Providers Care Diesel Stationary Engineer Name Role Phone Clem Olvera MD Primary Care Provider [phone] Reason for Referral * (Routine) - Closed Specialty Diagnoses / Procedures Referred By Pedro madera Referred To Contact Beatrice De La Garza NP [address] [place] [phone] Referral ID Status Reason Start Date Expiration Date V isits Requested Visits Authorized [id number] Closed Specialty Services Required 02/27/2016 1 1 Comments You must contact us if we have not contacted you or you have missed your scheduled appointment. If you have any nursing questions, please don't hesitate to call the Cardiac Arrhythmia Service at [facility] at or , extension [phone]. For any scheduling of appointments, please call [phone] or , extension [phone]. . * (Routine) - Closed Specialty Diagnoses / Procedures Referred By Pedro madera Referred To Contact Beatrice De La Garza NP [address] [address] Referral ID Status Reason Start Date Expiration Date V isits Requested Visits Authorized [id number] Closed Specialty Services Required 02/27/2016 1 1 Comments You have a pre existing appointment with Dr. Olvera on March 05 at 2:00, please have Dr. Olvera check your incision at that visit. * (Routine) - Closed Specialty Diagnoses / Procedures Referred By Contbecca t Referred To Contact Beatrice De La Garza NP [address] [address] Referral ID Status Reason Start Date Expiration Date V isits Requested Visits Authorized [id number] Closed Specialty Services Required 02/27/2016 1 1 [...] scheduled at your first appointment. - [facility] Cardiology is located at [address] [facility] in [place] -Clinics are also held in [facility], and [place], [place] and [facility]. If you live in those areas, we will make arrangements for follow-up appointments in one of those clinics.. Encounter Details Date Type Department Care Team (Late st Contact Info) Description 02/27/2016 6:30 EDT - 02/28/2016 13:39 EDT Hospital Encounter [facility] Cardiac/Telemetry Unit [address] [place] [address] Gulshan Drummond MD PhD [address] [address] Gulshan Montoya Sa, MD [address] [facility] [address] [place] [address] AICD lead malfunction, subsequent encounter; ICD [...] around May 2013, when he was in [place], [place]. This triggered major cardiac workup including [...] then underwent a device upgrade to a REGISTERED NURSE BEHAVIORAL HEALTH-D device with biventricular pacing for his EF [...] been followed in cardiology outreach clinic at [facility] in [place]. Continued high pacing threshold on the epicardial [...] and plans to follow up with his Line Department Supervisor in [place] in 6-8 weeks for which he will arrange once he has arrived in [place]. He has been provided with the implant [...] HGBA1C Discharge Follow Up Appointments Scheduled with [facility] Appointments Outside of [facility] We Will Schedule Studies We Will Schedule Appointments We Recommend but have not been Scheduled Beatrice De La Garza NP 02/27/2016 10:59 Associated attestation - Gulshan Montoya Sa, MD - 02/28/2016 1519 EDT Attending Attestation: I saw and evaluated the patient. I discussed the case with the resident/HEALTH SCIENCE WRITER/fellow and agree with the findings and plan [...] Notes * Lou Alfonso RN - 02/28/2016 1244 EDT Pt awaiting discharge. IV and tele was removed by primary nurse. This RN administered flu shot and provided flu information sheet. AVS and medications reviewed by RN with patient and . AVS statedcoreg was 3.25mg BID, which pt states no, they must have copied it down wrong. I'm not doing that.We've been through this in [place]. It makes me pass out. RN suggested checking with team, which pt denied and states I wont take it twice a day. He did agree to review this medication with his cabin crew and plans to remain on his home dosing, which was in the morning. He received dose this am. Ptleft via wheelchair with . * Beatrice Rodriguez - 02/28/2016 1329 EDT Brief visit with patient and as they were being discharged. Patient states he is independent in self care and home management. He feels well supported by friends and neighbors. Patient has Medicare and [facility]. [facility] in [facility]. No needs identified at time of discharge. will provide transportation. Beatrice Rodriguez RN Case Manager #[phone] documented in this encounter H&P Notes * [...] around May 2013, when he was in [place], [place]. This triggered major cardiac workup including [...] point, his device was upgraded to a REGISTERED NURSE BEHAVIORAL HEALTH-D device with biventricular pacing. By the patient's [...] been followed in cardiology outreach clinic at [facility] in [place]. Continued high pacing threshold on the epicardial LV lead has caused a very rapid battery depletion. Dr. David Adams in [place] recommended against lead extraction and reimplant as [...] Pacemaker insertion 2002 2013 second pacemaker [facility] Social History Family History Social History Substance Use Topics ??? Smoking status: Former Smoker Years: 35.00 Quit date: 1989 ??? Smokeless tobacco: Not on file ??? Alcohol use 6.6 oz/week 6 Cans of beer, 5 Glasses of wine per week , lives with , retired. Spends leong in [place]. Spends the chery in [place], [place]. Quit smoking in 1990. Has 2 [...] point, his device was upgraded to a REGISTERED NURSE BEHAVIORAL HEALTH-D device with biventricular pacing with a surgically [...] EST) 03/12/2016 12:4 3 EST Scan 2 Tool And Die Repairer PROCEDURE/MINOR JUDD GICAL ORDERABLES * ECG REPORT - SCANNED (03/04/2016 14:06 EDT) 03/04/2016 14:0 6 EDT Scan 2 Tool And Die Repairer PROCEDURE/MINOR JUDD GICAL ORDERABLES * ECG REPORT - SCANNED (03/04/2016 14:06 EDT) 03/04/2016 14:0 6 EDT Scan 2 Tool And Die Repairer PROCEDURE/MINOR JUDD GICAL ORDERABLES * IMPLANT RECORD - SCANNED (03/04/2016 14:06 EDT) 03/04/2016 14:0 6 EDT Scan 2 Tool And Die Repairer PROCEDURE/MINOR JUDD GICAL ORDERABLES * ECG REPORT - SCANNED (03/01/2016 8:58 EDT) 03/01/2016 8:58 EDT Scan 2 Tool And Die Repairer PROCEDURE/MINOR JUDD GICAL ORDERABLES * ECG REPORT - SCANNED (03/01/2016 8:58 EDT) 03/01/2016 8:58 EDT Scan 2 Tool And Die Repairer PROCEDURE/MINOR JUDD GICAL ORDERABLES * CHEST PA [...] IMAGING ORDERABLES * HEMAGRAM (02/28/2016 5:44 EDT) [facility] WBC 9.84 4.0 - 10.4 K/cmm 02/28/2016 6:26 EDT [facility] RBC 4.42 4.36 - 5.78 M/cmm 02/28/2016 6:26 T [facility] Hemoglobin 14.2 13.8 - 17.3 gm/dl 02/28/2016 6:26 [facility] HCT 40.9 39.5 - 50.2 % 02/28/2016 6:26 [facility] MCV 93 81 - 95 fl 02/28/2016 6:26 [facility] MCH 32.1 27.6 - 33.0 pg 02/28/2016 6:26 [facility] MCHC 34.7 32.8 - 36.4 gm/dl 02/28/2016 6:26 [facility] RDW-CV 13.1 11.8 - 14.1 % 02/28/2016 6:26 [facility] RDW-SD 44.6 36.5 - 45.9 fl 02/28/2016 6:26 [facility] PLT 151 141 - 377 K/cmm 02/28/2016 6:26 [facility] MPV 11.2 9.5 - 12.7 fl 02/28/2016 6:26 [facility] Blood specimen (specimen) BLOOD SPECIMEN / Unknown 02/28/2016 5:44 EDT 02/28/2016 6:13 EDT Beatrice De La Garza NP HEMATOLOGY & PF4 ORDERABLES [facility] [address] [place] [address] * (ABNORMAL) CREATININE (02/28/2016 5:44 EDT) Creatinine 0.65(L) 0.66 - 1.25 mg/dl 02/28/2016 6:48 EDT [facility] GFR, Calculated 95 >60 ml/min/1.7 3m2 02/28/2016 6:48 EDT [facility] Comment: eGFR calculated using CKD-EPI equation for non Americans. Multiply eGFR by 1.16 for Americans. Blood specimen (specimen) BLOOD SPECIMEN / Unknown 02/28/2016 5:44 EDT 02/28/2016 6:13 EDT Beatrice De La Garza NP CHEMISTRY & B LOOD GAS ORDERABLES Performing Organization Address [facility]/ZIP Co de Phone Number [facility] [address] [place] [address] * BUN (02/28/2016 5:44 EDT) BUN 14 10 - 26 mg/dl 02/28/2016 6:48 EDT [facility] Blood specimen (specimen) BLOOD SPECIMEN / Unknown 02/28/2016 5:44 EDT 02/28/2016 6:13 EDT Beatrice De La Garza HEALTH SCIENCE WRITER CHEMISTRY & B LOOD GAS ORDERABLES Performing Organization Address [facility] Co de Phone Number [facility] [address] [place] [address] * ELECTROLYTES (02/28/2016 5:44 EDT) Sodium 138 136 - 145 mEq/L 02/28/2016 6:48 EDT [facility] Potassium 4.7 3.5 - 5.0 mEq/L 02/28/2016 6:48 EDT [facility] Chloride 104 96 - 110 mEq/L 02/28/2016 6:48 EDT [facility] CO2 25 22 - 32 mEq/L 02/28/2016 6:48 EDT [facility] Comment:Note new reference r hong 02/19/16 Blood specimen (specimen) BLOOD SPECIMEN / Unknown 02/28/2016 5:44 EDT 02/28/2016 6:13 EDT Beatrice De La Garza NP CHEMISTRY & B LOOD GAS ORDERABLES [facility] [address] [place] [address] * PORTABLE CHEST 1 VIEW (02/27/2016 12:46 [...] 12:41 EDT) 02/27/2016 12:4 1 EDT Narrative [facility] - 02/28/2016 8:57 EDT ? [facility] ? Test Date: ?2016-02-27 Pat Name: ? NABIL IGLESIAS ? Department: ?? [facility] ? Room: ? MW514 Gender: ? M ?Thread Twister: ?? [id number] : ?1940 ? Requested By: KAIN REED L Order Number: [id number] ? Reading MD: ?? BRAYAN CUENCA MD ? Measurements Intervals ?[place] ? Rate: ? 63 ? P: ?15 MO: ? 159 ?QRS: ?234 QRSD: ? 156 ?T: ?15 QT: ? 479 ? QTc: ?493 ? Interpretive Statements ELECTRONIC VENTRICULAR PACEMAKER Compared to ECG 02/27/2016 08:10:34 No significant changes I reviewed the tracing and have either agreed or edited the findings in this report. Electronically Signed On 02-28-16 08:57:02 EDT by BRAYAN CUENCA MD. Procedure Note Brayan Cuenca MD - 02/28/2016 [facility] Test Date: 2016-02-27 Pat Name: NABIL IGLESIAS Department: [place] [address] Room: [facility] Gender: M Thread Twister: [id number] : 1940 Requested By: KAIN Gallagher Order Number: [id number] Reading MD: BRAYAN CUENCA MD Measurements Intervals [place] Rate: 63 P: 15 MO: 159 QRS: 234 QRSD: 156 T: 15 QT: 479 QTc: 493 Interpretive Statements ELECTRONIC VENTRICULAR PACEMAKER Compared to ECG 02/27/2016 08:10:34 No significant changes I reviewed the tracing and have either agreed or edited the findings inthis report. Electronically Signed On 02-28-16 08:57:02 EDT by BRAYAN BEEBE. Gulshan Drummond MD PhD CARDIA C ECG ORDERABLES [facility] E[facility] * PROTIME (02/27/2016 8:45 EDT) Pro Time 12.3 10.3 - 13.1 secs 02/27/2016 9:10 EDT [facility] Comment: New prothrombin t josue range effective 01/29/16 I.N.R. 1.1 0.9 - 1.1 Ratio 02/27/2016 9:10 EDT [facility] Comment: Moderate Intensity Coumadin INR = 2.0-3.0 Adjustments in anticoagulant therapy dose should be based upon the INR and NOT the Pro Time. Blood specimen (specimen) BLOOD SPECIMEN / Unknown 02/27/2016 8:45 EDT 02/27/2016 8:54 EDT Gulshan Drummond MD PhD HEMATO LOGY & PF4 ORDERABLES [facility] [address] [place] [address] * HEMAGRAM (02/27/2016 8:45 EDT) WBC 6.47 4.0 - 10.4 K/cmm 02/27/2016 8:57 EDT [facility] RBC 4.51 4.36 - 5.78 M/cmm 02/27/2016 8:57 EDT [facility] Hemoglobin 14.7 13.8 - 17.3 gm/dl 02/27/2016 8:57 EDT [facility] HCT 41.7 39.5 - 50.2 % 02/27/2016 8:57 EDT [facility] MCV 93 81 - 95 fl 02/27/2016 8:57 EDT [facility] MCH 32.6 27.6 - 33.0 pg 02/27/2016 8:57 EDT [facility] MCHC 35.3 32.8 - 36.4 gm/dl 02/27/2016 8:57 T [facility] RDW-CV 13.1 11.8 - 14.1 % 02/27/2016 8:57 EDT [facility] RDW-SD 44.0 36.5 - 45.9 fl 02/27/2016 8:57 EDT [facility] PLT 176 141 - 377 K/cmm 02/27/2016 8:57 EDT [facility] MPV 10.7 9.5 - 12.7 fl 02/27/2016 8:57 EDT [facility] Blood specimen (specimen) BLOOD SPECIMEN / Unknown 02/27/2016 8:45 EDT 02/27/2016 8:54 EDT Gulshan Drummond MD PhD HEMATO LOGY & PF4 ORDERABLES [facility] [address] [place] [address] * ELECTROLYTES (02/27/2016 8:45 EDT) Sodium 142 136 - 145 mEq/L 02/27/2016 9:13 EDT [facility] Potassium 4.7 3.5 - 5.0 mEq/L 02/27/2016 9:13 EDT [facility] Chloride 103 96 - 110 mEq/L 02/27/2016 9:13 EDT [facility] CO2 27 22 - 32 mEq/L 02/27/2016 9:13 EDT [facility] Comment:Note new reference r ohng 02/19/16 Blood specimen (specimen) BLOOD SPECIMEN / Unknown 02/27/2016 8:45 EDT 02/27/2016 8:54 EDT Gulshan Drummond MD PhD CHEMIS TRY & BLOOD GAS ORDERABLES Performing Organization Address [facility] de Phone Number [facility] [address] [place] [address] * CREATININE (02/27/2016 8:45 EDT) Creatinine 0.69 0.66 - 1.25 mg/dl 02/27/2016 9:13 EDT [facility] GFR, Calculated 93 >60 ml/min/1.7 3m2 02/27/2016 9:13 EDT [facility] Comment: eGFR calculated using CKD-EPI equation for non Americans. Multiply eGFR by 1.16 for Americans. Blood specimen (specimen) BLOOD SPECIMEN / Unknown 02/27/2016 8:45 EDT 02/27/2016 8:54 EDT Gulshan Drummond MD PhD CHEMIS TRY & BLOOD GAS ORDERABLES Performing Organization Address City/[facility] Co de Phone Number [facility] [address] [place] [address] * BUN (02/27/2016 8:45 EDT) BUN 17 10 - 26 mg/dl 02/27/2016 9:13 EDT [facility] Blood specimen (specimen) BLOOD SPECIMEN / Unknown 02/27/2016 8:45 EDT 02/27/2016 8:54 EDT Gulshan Drummond MD PhD CHEMIS TRY & BLOOD GAS ORDERABLES [facility] [address] [place] [address] * EKG 12-LEAD (02/27/2016 8:08 EDT) 02/27/2016 8:08 EDT Narrative [facility] EKG - 02/28/2016 9:01 EDT ? [facility] ? Test Date: ?2016-02-27 Pat Name: ? NABIL IGLESIAS ? Department: ?? [facility] ? Room: ? [id number] Gender: ? M ?Thread Twister: ?? [id number] : ?1940 ? Requested By: MARCIA Boo Order Number: [id number] ? Julia WRIGHT: ?? BRAYAN CUENCA MD ? Measurements Intervals ?[place] ? Rate: ? 69 ? P: ?147 MO: ? 134 ?QRS: ?-67 QRSD: ? 160 [...] Note Brayan Cuenca MD - 02/28/2016 [facility] Test Date: 2016-02-27 Pat Name: NABIL IGLESIAS Department: [facility] Room: [id number] Gender: M Thread Twister: [id number] : 1940 Requested By: MARCIA Boo Order Number: [id number] Reading MD: BRAYAN CUENCA MD Measurements Intervals [place] Rate: 69 P: 147 MO: 134 QRS: -67 QRSD: 160 T: -59 QT: 434 QTc: 467 Interpretive Statements ELECTRONIC ATRIAL PACEMAKER ELECTRONIC VENTRICULAR PACEMAKER Compared to ECG 02/27/2016 08:08:46 No significant changes I reviewed the tracing and have either agreed or edited the findings inthis report. Electronically Signed On 02-28-16 09:01:04 EDT by BRAYAN BEEBE. 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
--- OUTSIDE RECORDS SUMMARY | 2024-01-19 08:06 | XMS_ITS | Encounter Summary ---
[place] [address] Care Team Providers Care Front Services Agent Name Role Phone Donny Cooper MD Primary Care Provider [phone] Encounter Details Date Type Department Care Team (Latest Contact Info) Description 01/03/2023 10:00 AM EDT - 01/03/2023 11:59 PM EDT Hospital Encounter [place] [address] Discharge Disposition: Home Social History Tobacco Use [...] AM EDT Hospital Encounter Non[place] [phone] Arrived documented as of this encounter Procedures [...] on filedocumented in this encounter Care Teams Front Services Agent Relationship Specialty Start Date End Date Donny Cooper MD [address] [place] [address] PCP - General Family Medicine 02/25/19 documented as of this encounter
--- OUTSIDE RECORDS SUMMARY | 2024-01-19 08:06 | XMS_ITS | Encounter Summary ---
[place] [address] Care Team Providers Care Clip Loading Machine Adjuster Name Role Phone Donny Cooper MD Primary Care Provider [phone] [phone] Encounter Details Date Type Department Care Team (Late st Contact Info) Description 06/14/2020 Telephone Cardiology at [address] [phone] Nhung Briggs Social History Tobacco Use Types [...] He would like to be seen at [facility]. Email sent to Brittaney Hernandez at [facility] asking her to reach out to pt to set up the appt with either Dr. Arguelles or LANG Albert. Nhung Allen Electrophysiology Scheduling [id number] option 2 documented in this encounter Plan of Treatment Upcoming Encounters Date Type Department Care Team (Late st Contact Info) Description 02/02/2024 10:00 AM EDT Hospital Encounter Non-Invasive [place] [address] Arrived documented as of this encounter Visit Diagnoses Not on filedocumented in this encounter Care Teams Clip Loading Machine Adjuster Relationship Specialty Start Date End Date Donny Cooper MD [address] [place] [address] PCP - General Family Medicine 02/25/19 documented as of this encounter
--- OUTSIDE RECORDS SUMMARY | 2024-01-19 08:06 | XMS_ITS | Encounter Summary ---
Author Organization Formerly [facility] [place] [address] Care Team Providers Care Welder Fitter Apprentice Name Role Phone Donny Cooper MD Primary Care Provider [phone] Encounter Details Date Type Department Care Team (Latest Contact Info) Description 06/13/2020 12:35 PM EST - 06/13/2020 11:59 PM EST Hospital Encounter Non-Invasive [place] [address] Alber Seals MD [facility] [place] [address] Cardiomyopathy, primary Discharge Disposition: Home Social History [...] EDT Hospital Encounter Non-Invasive [place] [address] Arrived documented as of this encounter Procedures Procedure Name Priority Date/Time Associated Diagnosis Comments ICD INTERROGATION 3 MONTH Routine 06/13/2020 12:36 PM EST Cardiomyopathy, primary documented in this encounter Results * ICD INTERROGATION 3 MONTH (06/13/2020 12:36 PM EST) Anatomical Region Laterality Modality Other Narrative 06/14/2020 10:38 AM EST Cardiac Device Remote Monitoring Report Summary Medtronic RoboCent 06/14/20 Device: FRUIT STUFFER-D Model: VIVA QUAD Battery: 2.96 v, estimated longevity 3 years, 11 months Pacing percentage: 78% ventricular paced Events: The presenting rhythm is atrial paced with biventricular pacing and frequent ventricular premature contractions No significant arrhythmias Impression Normal device function; suboptimal FRUIT STUFFER pacing likely secondary to frequent PVCs. Should consider in clinic follow-up for further evaluation Follow Up As per schedule - in-clinic and remote ALBER SEALS MD Alber Seals MD IMPLANTABLE CARDIAC DEVICE documented in this encounter Visit Diagnoses Diagnosis Cardiomyopathy, primary Other primary cardiomyopathies documented in this encounter Care Teams Welder Fitter Apprentice Relationship Specialty Start Date End Date Donny Cooper MD [address] [place] [address] PCP - General Family Medicine 02/25/19 documented as of this encounter
--- OUTSIDE RECORDS SUMMARY | 2024-01-19 08:06 | XMS_ITS | Referral Summary ---
Author Organization [facility] Address [address] [place] [address] Care Team Providers Care Construction Equipment Technician Name Role Phone Clem Olvera MD Primary Care Provider [phone] Allergies No known active allergies Medications Medication [...] Advance Directives For more information, please contact: [phone] * Full Code (Latest Code Status on File) Date Activated Date Inactivated Comments 02/27/2016 8:49 02/28/2016 15:40 Question Answer Comments Reason for decision includes: Full code consistent with overall plan of care Who participated in the discussion? Not Discusse d Care Teams Construction Equipment Technician Relationship Specialty Start Date End Date Clem Olvera MD [address] [place] [id number] PCP - General 12/18/15
--- OUTSIDE RECORDS SUMMARY | 2024-01-19 08:06 | XMS_ITS | Encounter Summary ---
Author Organization [facility] Address [address] [place] [address] Care Team Providers Care Editor Farm Journal Name Role Phone Unknown, Provider Primary Care Provider [phone] Clem Olvera MD Primary Care Provider [phone] Encounter Details Date Type Department Care Team (Late st Contact Info) Description 11/29/2015 Pre-Procedure Orders Encounter [facility] [address] [place], [place] [id number] Navdeep Hurd MD [address] [place] [address] [address] Social History Tobacco Use Types [...] Patient: Nabil Streeter. Attending: Dr. Moran Scrrajinder Wad Compressor Operator Adjuster: Dr. Fantasma Dhillon History/indication: The patient is [...] Patient: Nabil Streeter Attending: Dr. Dean Bailey Wad Compressor Operator Adjuster: Dr. Fantasma Dhillon History/indication: The patient is [...] on filedocumented in this encounter Care Teams Editor Farm Journal Relationship Specialty Start Date End Date Unknown, Provider, PCP - General 12/06/12 12/17/15 Clem Olvera MD [address] [place] [address] PCP - General 12/18/15 documented as of this encounter
--- OUTSIDE RECORDS SUMMARY | 2024-01-19 08:06 | XMS_ITS | Encounter Summary ---
[place] [address] Care Team Providers Care Property Insurance Inspector Name Role Phone Donny Cooper MD Primary Care Provider [phone] Encounter Details Date Type Department Care Team (Latest Contact Info) Description 04/03/2023 10:00 AM EST - 04/03/2023 11:59 PM [facility] Hospital Encounter Non-[place] [address] Discharge Disposition: Home Social History Tobacco Use [...] AM EDT Hospital Encounter Non-In[place] [address] Arrived documented as of this [...] filedocumented in this encounter Care Teams Property Insurance Inspector Relationship Specialty Start Date End Date Donny Cooper MD [address] [place] [address] PCP - General Family Medicine 02/25/19 documented as of this encounter
--- OUTSIDE RECORDS SUMMARY | 2024-01-19 08:06 | XMS_ITS | Encounter Summary ---
[place] [address] Care Team Providers Care Shuttle Spotter Name Role Phone Donny Cooper MD Primary Care Provider [phone] Encounter Details Date Type Department Care Team (Latest Contact Info) Description 10/05/2022 10:00 AM EDT - 10/05/2022 11:59 PM EDT Hospital Encounter [place] [address] Discharge Disposition: Home Social History Tobacco Use [...] AM EDT Hospital Encounter [place] [address] Arrived documented as of this encounter Procedures [...] on filedocumented in this encounter Care Teams Shuttle Spotter Relationship Specialty Start Date End Date Donny Cooper MD [address] [place] [address] PCP - General Family Medicine 02/25/19 documented as of this encounter
--- OUTSIDE RECORDS SUMMARY | 2024-01-19 08:06 | XMS_ITS | Encounter Summary ---
[place] [address] Care Team Providers Care Bareback Rider Name Role Phone Donny Cooper MD Primary Care Provider [phone] Encounter Details Date Type Department Care Team (Latest Contact Info) Description 04/08/2022 10:00 AM EST - 04/08/2022 11:59 PM [facility] Hospital Encounter Non-Invasive [place] [address] Discharge Disposition: Home Social History Tobacco Use [...] AM EDT Hospital Encounter Non-Invasive [place] [address] Arrived documented as of this [...] on filedocumented in this encounter Care Teams Bareback Rider Relationship Specialty Start Date End Date Donny Cooper MD [address] [place] [address] PCP - General Family Medicine 02/25/19 documented as of this encounter
--- OUTSIDE RECORDS SUMMARY | 2024-01-19 08:06 | XMS_ITS | Encounter Summary ---
[place] [address] Care Team Providers Care Building Official Name Role Phone Donny Cooper MD Primary Care Provider [phone] Encounter Details Date Type Department Care Team (Latest Contact Info) Description 07/07/2022 10:00 AM EST - 07/07/2022 11:59 PM EST Hospital Encounter [place] [address] Discharge Disposition: Home Social History Tobacco Use [...] AM EDT Hospital Encounter [place] [address] Arrived documented as of this [...] on filedocumented in this encounter Care Teams Building Official Relationship Specialty Start Date End Date Donny Cooper MD [address] [place] [address] PCP - General Family Medicine 02/25/19 documented as of this encounter
--- OUTSIDE RECORDS SUMMARY | 2024-01-19 08:06 | XMS_ITS | Clinical Summary ---
Author Organization [facility] Address [address] [place] [address] Care Team Providers Care Poultry Hanger Name Role Phone Clem Olvera MD Primary Care Provider [phone] Allergies No known active allergies Medications Medication [...] INSERTION 05/04/2002 - 05/03/20032013 second pacemaker [facility] Medical History Medical History Date Comments [...] Advance Directives For more information, please contact: [phone] * Full Code (Latest Code Status on File) Date Activated Date Inactivated Comments 02/27/2016 8:49 02/28/2016 15:40 Question Answer Comments Reason for decision includes: Full code consistent with overall plan of care Who participated in the discussion? Not Discusse d Care Teams Poultry Hanger Relationship Specialty Start Date End Date Clem Olvera MD [address] [place] [address] PCP - General 12/18/15
--- OUTSIDE RECORDS SUMMARY | 2024-01-19 08:06 | XMS_ITS | Encounter Summary ---
[place] [address] Care Team Providers Care Ammonia Box Tender Name Role Phone Donny Cooper MD Primary Care Provider [phone] Encounter Details Date Type Department Care Team (Latest Contact Info) Description 07/02/2023 10:00 AM EST - 07/02/2023 11:59 PM EST Hospital Encounter Non-Invasive [place] [address] Discharge Disposition: Home Social History Tobacco Use [...] Encounter Non-Invasive [place] [address] Arrived documented as of this encounter Visit Diagnoses Not on filedocumented in this encounter Care Teams Ammonia Box Tender Relationship Specialty Start Date End Date Donny Cooper MD [address] [place] [address] PCP - General Family Medicine 02/25/19 documented as of this encounter
--- OUTSIDE RECORDS SUMMARY | 2024-01-19 08:06 | XMS_ITS | Encounter Summary ---
Author Organization [facility] Address [address] [place] [address] Care Team Providers Care Aadc Plans Staff Officer Name Role Phone Clem Olvera MD Primary Care Provider [phone] Reason for Visit * Reason Onset Date Comments Other 04/04/2019 Transfer request for Pacer Care at [facility] Encounter Details Date Type Department Care Team (Late st Contact Info) Description 04/04/2019 Telephone [facility] Cardiology Clinic [address] [place] [address] Giselle Hill, ELECTRIC MOTOR REPAIRING SUPERVISOR Other (Transfer request for Pacer Care at [facility]) Social History Tobacco Use Types Packs/Day Years [...] 04/04/2019 1503 EST I went into the [employer] Website and released pt to [facility] Pacer Clinic as requested. * Telephone Encounter - Suze Reynoso - 04/04/2019 1342 EST PT WILL BE HAVING HIS PACER CARE DONE AT [facility], PLEASE RELEASE HIS REMOTE MONITORING SO THAT THEY CAN PICK IT UP documented in this encounter Plan of Treatment Not on file documented as of this encounter Visit Diagnoses Not on filedocumented in this encounter Care Teams Aadc Plans Staff Officer Relationship Specialty Start Date End Date Clem Olvera MD [address] [place] [address] PCP - General 12/18/15 documented as of this encounter
--- OUTSIDE RECORDS SUMMARY | 2024-01-19 08:06 | XMS_ITS | Encounter Summary ---
[place] [address] Care Team Providers Care Lot Porter Name Role Phone Donny Coopre MD Primary Care Provider [phone] Encounter Details Date Type Department Care Team (Late st Contact Info) Description 01/05/2024 Telephone Cardiology at [address] [address] Kanika Shell Social History Tobacco [...] EDT Hospital Encounter Non-Invasive [place] [address] Arrived documented as of this encounter Visit Diagnoses Not on filedocumented in this encounter Care Teams Lot Porter Relationship Specialty Start Date End Date Donny Cooper MD [address] [place] [address] PCP - General Family Medicine 02/25/19 documented as of this encounter
--- OUTSIDE RECORDS SUMMARY | 2024-01-19 08:06 | XMS_ITS | Encounter Summary ---
[place] [address] Care Team Providers Care Installer Apprentice Name Role Phone Donny Cooper MD Primary Care Provider [phone] Encounter Details Date Type Department Care Team (Latest Contact Info) Description 11/04/2023 10:00 AM EDT - 11/04/2023 11:59 PM EDT Hospital Encounter [place] [address] Discharge Disposition: Home Social History Tobacco Use [...] AM EDT Hospital Encounter [place] [address] Arrived documented as of this encounter Procedures [...] on filedocumented in this encounter Care Teams Installer Apprentice Relationship Specialty Start Date End Date Donny Cooper MD [address] [place] [address] PCP - General Family Medicine 02/25/19 documented as of this encounter
--- OUTSIDE RECORDS SUMMARY | 2024-01-19 08:06 | XMS_ITS | Clinical Summary ---
Author Organization [facility] [place] [address] Care Team Providers Care Dispatcher Ship Pilot Name Role Phone Donny Cooper MD Primary Care Provider [phone] Allergies No known active allergies Medications Medication [...] Care Team Description 01/05/2024 Telephone Cardiology at [address] [phone] Kanika Shell 12/28/2023 Notes Only Cardiology at [address] [address] Kanika Shell 11/04/2023 10:00 AM EDT - 11/04/2023 11:59 PM EDT Hospital Encounter [place] [address] Discharge Disposition: Home from Last 3 Months [...] AM EDT Hospital Encounter [place] [address] Arrived Health Maintenance Due Date Last Done Comments Tdap adult 08/19/1959 Tetanus vaccine 08/19/1959 Zoster vaccine (1 of 2) 1990 Advance Directive 08/19/1995 Pneumoccocal Vaccine: 65+ (2 of 2 - PCV) 05/04/2009 05/04/2008 Covid-19 Vaccine (1 - season) 2024 Influenza (Flu) vaccine (1 o f 1 - Influenza standard series) 01/03/2024 02/01/2010, 03/06/2006, 02/24/2005 Medical Devices Implanted Type Area Air Chief Marshal Device Identifier Shelf Expiration Date Model / Serial / Lot Mdt : [id number] : [id number] Implanted: (Quantity not on file) Cardiac Resynchronization Therapy - Defibrillator Chest Medtronic - [id number] / [id number] / Care Teams Dispatcher Ship Pilot Relationship Specialty Start Date End Date Donny Cooper MD [address] [place], [place] [address] PCP - General Family Medicine 02/25/19
--- OUTSIDE RECORDS SUMMARY | 2024-01-19 08:06 | XMS_ITS | Encounter Summary ---
Author Organization [facility] Address [address] [place] [address] Care Team Providers Care Insurance Examining Clerk Name Role Phone Clem Olvera MD Primary Care Provider [phone] Encounter Details Date Type Department Care Team (Late st Contact Info) Description 03/16/2019 Abstract [facility] [place] [facility] [address] [place] [address] Ronal Avelar, JADON AV block, 2nd degree [...] Laterality Modality Device Narrative 03/24/2019 10:30 EST [facility] [place] Device Visit Shot Peen Operator: Abriltronic Device Type: SCHOOL PHYSICAL THERAPIST-D Service: Remote ? 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
--- OUTSIDE RECORDS SUMMARY | 2024-01-19 08:06 | XMS_ITS | Encounter Summary ---
[place] [address] Care Team Providers Care Data Analytics Analyst Name Role Phone Donny Cooper MD Primary Care Provider [phone] Encounter Details Date Type Department Care Team [...] AM EDT Hospital Encounter Non-[place] [address] Arrived documented as of this encounter Visit Diagnoses Not on filedocumented in this encounter Care Teams Data Analytics Analyst Relationship Specialty Start Date End Date Donny Cooper MD [address] [place] [address] PCP - General Family Medicine 02/25/19 documented as of this encounter
--- OUTSIDE RECORDS SUMMARY | 2024-01-19 08:06 | XMS_ITS | Encounter Summary ---
Author Organization [facility] [place] [address] Care Team Providers Care Nurse Practitioner Manager Name Role Phone Donny Cooper MD Primary Care Provider [phone] Encounter Details Date Type Department Care Team (Late st Contact Info) Description 07/26/2019 Notes Only Cardiology at [address] [address] Maged Arguelles MD [facility] [place] [address] Social History Tobacco Use Types Packs/Day Years [...] his Medtronic biventricular ICD is reviewed. Suboptimal IT SYSTEMS ANALYST at 84%. Normal device function. Awaiting Holter to assess PVC burden. Maged Arguelles MD [facility] Cardiac Electrophysiology 07/26/2019 9:04 AM documented in this encounter Plan of Treatment Upcoming Encounters Date Type Department Care Team (Late st Contact Info) Description 02/02/2024 10:00 AM EDT Hospital Encounter Non-Invasive [place] [address] Arrived documented as of this encounter Visit Diagnoses Not on filedocumented in this encounter Care Teams Nurse Practitioner Manager Relationship Specialty Start Date End Date Donny Cooper MD [address] [place] [address] PCP - General Family Medicine 02/25/19 documented as of this encounter
--- OUTSIDE RECORDS SUMMARY | 2024-01-19 08:06 | XMS_ITS | Encounter Summary ---
Author Organization [facility] Address [address] [place] [address] Care Team Providers Care Real Estate Salesperson Name Role Phone Unavailable Primary Care Provider Unavailabl e Encounter Details Date Type Department Care Team (Late st Contact Info) Description 12/02/2012 Results Only [facility] Laboratory Services - [facility] [address] [place] [id number] Satinder Edwards MD [address] [place] [address] Social History Tobacco Use Types Packs/Day Years [...] ? NABIL IGLESIAS ? Accession #: ? [id number] ? : ? 1940 (Age: 72) ??M [...] PATHOLOGY ORDERABLE S Performing Organization Address City/State/[facility] Co de Phone Number [facility] [address] [place] [address] documented in this encounter Visit Diagnoses Not on filedocumented in this encounter
--- OUTSIDE RECORDS SUMMARY | 2024-01-19 08:06 | XMS_ITS | Encounter Summary ---
[place] [address] Care Team Providers Care Warehouse Consultant Name Role Phone Donny Cooper MD Primary Care Provider [phone] Encounter Details Date Type Department Care Team (Late st Contact Info) Description 12/28/2023 Notes Only Cardiology at [address] [phone] Kanika Shell Social History Tobacco Use Types [...] EDT Hospital Encounter Non-Invasive [place] [address] Arrived documented as of this encounter Visit Diagnoses Not on filedocumented in this encounter Care Teams Warehouse Consultant Relationship Specialty Start Date End Date Donny Cooper MD [address] [facility] [address] [place] [address] PCP - General Family Medicine 02/25/19 documented as of this encounter
--- OUTSIDE RECORDS SUMMARY | 2024-01-19 08:06 | XMS_ITS | Encounter Summary ---
[place] [address] Care Team Providers Care Magnetic Resonance Imaging Director Name Role Phone Donny Cooper MD Primary Care Provider [phone] Encounter Details Date Type Department Care Team (Latest Contact Info) Description 08/06/2023 10:00 AM EDT - 08/06/2023 11:59 PM EDT Hospital Encounter Non-Invasive [place] [address] Discharge Disposition: Home Social History Tobacco Use [...] EDT Hospital Encounter Non-Invasive [place] [address] Arrived documented as of this encounter Visit Diagnoses Not on filedocumented in this encounter Care Teams Magnetic Resonance Imaging Director Relationship Specialty Start Date End Date Donny Cooper MD [address] [place] [address] PCP - General Family Medicine 02/25/19 documented as of this encounter
--- OUTSIDE RECORDS SUMMARY | 2024-01-19 08:06 | XMS_ITS | Encounter Summary ---
Author Organization [facility] Address [address] [place] [address] Care Team Providers Care Video Tape Transferrer Name Role Phone Unavailable Primary Care Provider Unavailabl e Encounter Details Date Type Department Care Team (Late st Contact Info) Description 05/06/2001 Results Only [facility] - Maple conversion [address] [place] [address] Hernandez Partida MD [address] [place] [address] Social History Tobacco Use Types Packs/Day Years [...] is submitted entirely in cassette (B). ??(Naty Caal)/[facility] End of Report [facility] 05/06/2001 05/07/2001 9:2 5 EST Hernandez Partida MD PATHOLOGY ORDERABLES [facility] [address] [place] [address] documented in this encounter Visit Diagnoses Not on filedocumented in this encounter
--- OUTSIDE RECORDS SUMMARY | 2024-01-19 08:06 | XMS_ITS | Encounter Summary ---
[place] [address] Care Team Providers Care Auto Body Technician Name Role Phone Donny Cooper MD Primary Care Provider [phone] [phone] Encounter Details Date Type Department Care Team (Late st Contact Info) Description 03/17/2019 Telephone Cardiology at [address] [address] Sheri Quinn LNA Social History [...] 11:46 AM EST Medication list reviewed with [facility] list. Please review with patient at next clinic visit. documented in this encounter Plan of Treatment Upcoming Encounters Date Type Department Care Team (Late st Contact Info) Description 02/02/2024 10:00 AM EDT Hospital Encounter Non-[place] [address] Arrived documented as of this encounter Visit Diagnoses Not on filedocumented in this encounter Care Teams Auto Body Technician Relationship Specialty Start Date End Date Donny Cooper MD [address] [place] [address] PCP - General Family Medicine 02/25/19 documented as of this encounter
--- OUTSIDE RECORDS SUMMARY | 2024-01-19 08:06 | XMS_ITS | Encounter Summary ---
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..] 8 EDT Narrative 02/27/2016 15:17 EDT *Cardiology* [address] [place] [address] Lead Revision (Report amended ) Patient: Nabil Iglesias ?Study Date: ?02/27/2016 ? Accession #: ? [id number] : ? 1940 Referring: Clem Olvera Attending: [...] glide wire a Nick MENDOZAW 6F (Formerly [facility]) 6 mm-40 mm balloon dilation still could [...] Venograms were performed in the MOORE and TURKMEN projections and a suitable mid-lateral LV branch [...] fascia. The leads were connected to a PATTERN PAINTER-D device. Device and Lead detail in [...] Implanted device: Medtronic - Viva Quad XT PATTERN PAINTER-D DF4 - Serial number: [id number] Explanted device: Medtronic - Viva XT PATTERN PAINTER-D DF4 - Serial number: [id number]. LEAD PARAMETERS + + + + + [...] + + + + + Serial number [id number] ? [id number] ?? [id number] ?? [id number] ? + + + + [...] Gulshan Drummond MD - 05/12/2016 *Cardiology* [address] [place] [address] Lead Revision (Report amended ) Patient: Nabil [...] over an 0.35 glide wire a [facility]F ([facility]) 6 mm-40 mm balloon dilation still could [...] Venograms were performed in the MOORE and TURKMEN projections and a suitable mid-lateral LV branch [...] fascia. The leads were connected to a PATTERN PAINTER-D device. Device and Lead detail in [...] Implanted device: Medtronic - Viva Quad XT PATTERN PAINTER-D DF4 - Serial number: [id number] Explanted device: Medtronic - Viva XT PATTERN PAINTER-D DF4 - Serial number: [id number]. LEAD PARAMETERS + + + + + + Lead # 1 2 3 4 + + + + + + Chamber RA RV LV LV + + + + + + Date 07/19/2002 07/18/2013 02/27/2016 07/18/2013 implanted + + + + + + Model St. Esa Medtronic Medtronic Enpath information [id number] Attain Epicardial Performa 4298 + + + + + + Serial number [id number] + + + + + + [...] situ documented in this encounter Care Teams Business Taxes Specialist Relationship Specialty Start Date End Date Clem Olvera MD [address] [place] [address] PCP - General 12/18/15 documented as of this encounter
--- OUTSIDE RECORDS SUMMARY | 2024-01-19 08:06 | XMS_ITS | Encounter Summary ---
Author Organization [facility] Address [address] [place] [address] Care Team Providers Care Human Relations Professor Name Role Phone Clem Olvera MD Primary Care Provider [phone] Encounter Details Date Type Department Care Team (Latest Contact Info) Description 12/20/2015 10:52 EDT - 12/20/2015 23:52 EDT Hospital Encounter [facility] Cardiovascular Unit [address] [place] [address] Navdeep Hurd MD [address] [place] [address] [address] Discharge Disposition: Home or Self [...] no need to beNPO or have a solo truck driver. However, his will be accompanying him. They [place] someone to the airport [place] 1000 and then will come here and check-in around 1145. He agrees to have a shower. documented in this encounter Procedure Notes * Fantasma Dhillon MD - 12/20/2015 1356 EDT IR Brief Procedure Note Attending: Leo Colorman: Alejo Pre-op Dx: Arrhythmia, need for pacemaker [...] 12/19 documented in this encounter Care Teams Human Relations Professor Relationship Specialty Start Date End Date Clem Olvera MD [address] [place] [address] PCP - General 12/18/15 documented as of this encounter
--- OUTSIDE RECORDS SUMMARY | 2024-01-19 08:07 | XMS_ITS | Encounter Summary ---
[place] [address] Care Team Providers Care Self Sealing Fuel Tank Builder Name Role Phone Marques Martinez MD Primary Care Provider [phone] Encounter Details Date Type Department Care Team (Late st Contact Info) Description 10/03/2010 Abstract [place] [address] Marina Orosco, JADON Social History Tobacco Use [...] AM EDT Hospital Encounter Non-[place] [address] Arrived documented as of this encounter Visit Diagnoses Not on filedocumented in this encounter Care Teams Self Sealing Fuel Tank Builder Relationship Specialty Start Date End Date Marques Martinez MD [address] [place] [address] PCP - General 04/01/10 04/08/11 documented as of this encounter
--- OUTSIDE RECORDS SUMMARY | 2024-01-19 08:07 | XMS_ITS | Encounter Summary ---
Author Organization [facility] [place] [address] Care Team Providers Care Analytical Statistician Name Role Phone Marques Martinez MD Primary Care Provider [phone] Encounter Details Date Type Department Care Team (Late st Contact Info) Description 03/30/2010 [place] [address] Javier Barajas MD [facility] [place] [address] Social History Tobacco Use Types Packs/Day Years [...] EDT Hospital Encounter Non-[place]vasive [place] [address] Arrived documented as of this encounter Procedures [...] Organization Address [facility] de Phone Number CERNER CHRISTOSENNIUM * BUN (04/01/2010 6:09 AM EST) Blood Urea Nitrogen 12 10 - 20 mg/dL CERNER MILLENNIUM Blood specimen (specimen) 04/01/2010 6:09 AM EST 04/01/2010 6:09 AM EST Jairon Fentno MD CHEMISTRY ORDERABLES Performing Organization Address [facility] de Phone Number CERNER MILLENNIUM * (ABNORMAL) [...] Organization Address [facility] de Phone Number CERNER MILLENNIUM * HEPATIC [...] Organization Address [facility] Phone Number CERIVIS MILLENNIUM [...] Organization Address [facility] Co de Phone Number CERIVIS MILLENNIUM * CREATININE, SERUM (03/30/2010 6:05 PM EST) Creatinine 0.87 0.80 - 1.50 mg/dL [facility] Est Glomerular Filtration Rate >60 >=60 [facility] Comment: The National Kidney Disease [...] Urea Nitrogen 18 10 - 20 mg/dL [facility] Blood specimen (specimen) 03/30/2010 6:05 PM EST 03/30/2010 6:13 PM EST Jairon Fenton MD CHEMISTRY ORDERABLES Performing Organization Address [facility] de Phone Number DEJA SEGOVIA * APTT (03/30/2010 6:05 PM EST) Partial Thromboplastin Time 26 25 - 37 sec CERNER CHRISTOSENNIUM Comment: Recommended therapeutic PTT range for full dose unfractionated heparin is 80-114 seconds. Blood specimen (specimen) 03/30/2010 6:05 PM EST 03/30/2010 6:14 PM EST Jairon Fenton MD HEMATOLOGY ORDERABLE S Performing Organization Address [facility] Phone Number DEJA SEGOVIA * PROTIME-INR (03/30/2010 6:05 PM EST) Prothrombin Time 14.2 12.3 - 14.7 sec [facility] Comment: [facility] Transfusion Committee Guidelines: INR less than 2.0, PTT less than OR equal to 43.5 seconds, or Fibrinogen greater than or equal to 100 mg/dl indicate adequate procoagulant activity for hemostasis in patients without underlying bleeding disorders. International Normalization Ratio 1.1 0.9 - 1.[address] [facility] Blood specimen (specimen) 03/30/2010 6:05 PM EST 03/30/2010 6:14 PM EST Jairon Fenton MD HEMATOLOGY ORDERABLE S Performing Organization Address [facility] de Phone Number DEJA SEGOVIA * (ABNORMAL) [...] Standard Deviation 44.2 35.0 - 46.0 fL [facility] RDW coefficient of variation 13.1 10.9 - 14.4 % [facility] Mean Platelet Volume 10.6 9.0 - 12.0 fL [facility] Blood specimen (specimen) 03/30/2010 6:05 PM EST 03/30/2010 6:13 PM EST Jairon Fenton MD HEMATOLOGY ORDERABLE S Performing Organization Address [facility] Co de Phone Number [facility] * REFLEX LAB-ANTIBODY SCREEN (03/30/2010 3:17 PM EST) [facility] Ab Screen Interp Negative [facility] Expires at [id number] on: [id number] [facility] Blood specimen (specimen) 03/30/2010 3:17 PM EST 03/30/2010 3:17 PM EST Javier Barajas MD BLOOD BANK LAB ORDER PRECIOUS Performing Organization Address [facility] Co de Phone Number [facility] * REFLEX LAB-ABO/RH (03/30/2010 3:17 PM EST) [facility] ABORH Type A Pos [facility] Blood specimen (specimen) 03/30/2010 3:17 PM EST 03/30/2010 3:17 PM EST Javier Barajas MD BLOOD BANK LAB ORDER PRECIOUS Performing Organization Address [facility] Co de Phone Number [facility] * ELECTROLYTE PANEL (03/30/2010 2:50 PM EST) [facility] Sodium 135 135 - 145 mmol/L [facility] Potassium 4.3 3.5 - 5.0 mmol/L [facility] Comment: Please note: ??Patients with [...] Organization Address [facility] Phone Number [facility] * BUN (03/30/2010 2:50 PM EST) Blood Urea Nitrogen 18 10 - 20 mg/dL [facility] Blood specimen (specimen) 03/30/2010 2:50 PM EST 03/30/2010 3:05 PM EST Javier Barajas MD CHEMISTRY ORDERABLES Performing Organization Address [facility] Phone Number [facility] * GLUCOSE, RANDOM (03/30/2010 2:50 PM EST) Glucose 95 <=199 mg/dL [facility] Comment:Diabetes: >=200 mg/d L plus symptoms Blood specimen (specimen) 03/30/2010 2:50 PM EST 03/30/2010 3:05 PM EST Javier Barajas MD CHEMISTRY ORDERABLES Performing Organization Address [facility] Phone Number [facility] * APTT (03/30/2010 2:50 PM EST) Partial Thromboplastin Time 25 25 - 37 sec [facility] Comment: Recommended therapeutic PTT range for full dose unfractionated heparin is 80-114 seconds. Blood specimen (specimen) 03/30/2010 2:50 PM EST 03/30/2010 3:06 PM EST Javier Barajas MD HEMATOLOGY ORDERABLE S Performing Organization Address [facility] Phone Number [facility] * PROTIME-INR (03/30/2010 2:50 PM EST) Prothrombin Time 14.1 12.3 - 14.7 sec [facility] Comment: [facility] Transfusion Committee Guidelines: INR less than [...] on filedocumented in this encounter Care Teams Analytical Statistician Relationship Specialty Start Date End Date Marques Martinez MD [address] [place] [address] PCP - General 04/01/10 04/08/11 documented as of this encounter
--- OUTSIDE RECORDS SUMMARY | 2024-01-19 08:07 | XMS_ITS | Encounter Summary ---
Author Organization [facility] [place] [address] Care Team Providers Care Lead Cargoman Name Role Phone Clem Olvera MD Primary Care Provider [phone] Reason for Visit * Reason Comments Follow Up Fracture SP PATELLA FX DO12/12 DOI 03/30/10 Encounter Details Date Type Department Care Team (Late st Contact Info) Description 04/09/2011 1:30 PM EST Office [place] [address] Jairon Gustafson MD [facility] [place] [address] Jose Francisco Bee PA [facility] [place] [address] Patella fracture (Primary Dx) Discharge Disposition: Home [...] AM EDT Hospital Encounter Non-In[place] [address] Arrived documented as of this encounter Visit Diagnoses Diagnosis Patella fracture- Primary Closed fracture of patella documented in this encounter Care Teams Lead Cargoman Relationship Specialty Start Date End Date Clem Olvera MD [address] [place] [address] PCP - General 04/09/11 02/24/19 documented as of this encounter
--- OUTSIDE RECORDS SUMMARY | 2024-01-19 08:07 | XMS_ITS | Encounter Summary ---
Author Organization [facility] [place] [address] Care Team Providers Care Cabinet Finisher Name Role Phone Maqrues Martinez MD Primary Care Provider [phone] Encounter Details Date Type Department Care Team (Late st Contact Info) Description 06/12/2010 2:10 PM EST Office [place] [address] Jairon Fenton MD [facility] [address] [place] [address] Discharge Disposition: Home Social History Tobacco Use [...] AM EDT Hospital Encounter Non-Invasive [place] [address] Arrived documented as of this encounter Visit Diagnoses Not on filedocumented in this encounter Care Teams Cabinet Finisher Relationship Specialty Start Date End Date Marques Martinez MD [address] [place] [address] PCP - General 04/01/10 04/08/11 documented as of this encounter
--- OUTSIDE RECORDS SUMMARY | 2024-01-19 08:07 | XMS_ITS | Encounter Summary ---
[place] [address] Care Team Providers Care Soft Work Wrapper Examiner Name Role Phone Marques Martinez MD Primary Care Provider [phone] Encounter Details Date Type Department Care Team (Late st Contact Info) Description 05/01/2010 2:40 PM EST Procedure [place] [address] Social History Tobacco Use Types Packs/Day Years [...] AM EDT Hospital Encounter Non-Invasive [place] [address] Arrived documented as of this encounter Visit Diagnoses Not on filedocumented in this encounter Care Teams Soft Work Wrapper Examiner Relationship Specialty Start Date End Date Marques Martinez MD [address] [place] [address] PCP - General 04/01/10 04/08/11 documented as of this encounter
--- OUTSIDE RECORDS SUMMARY | 2024-01-19 08:07 | XMS_ITS | Encounter Summary ---
Author Organization [facility] [place] [address] Care Team Providers Care Announcer Name Role Phone Marques Martinez MD Primary Care Provider [phone] Encounter Details Date Type Department Care Team (Late st Contact Info) Description 10/09/2010 11:35 AM EDT - 10/09/2010 11:59 PM EDT Hospital Encounter XRay at [address] [place] [address] Social History Tobacco Use Types Packs/Day Years [...] AM EDT Hospital Encounter Non-[place] [address] Arrived documented as of this encounter Visit Diagnoses Not on filedocumented in this encounter Care Teams Announcer Relationship Specialty Start Date End Date Marques Martinez MD [address] [place] [address] PCP - General 04/01/10 04/08/11 documented as of this encounter
--- OUTSIDE RECORDS SUMMARY | 2024-01-19 08:07 | XMS_ITS | Encounter Summary ---
Author Organization [facility] [place] [address] Care Team Providers Care Plywood Matcher Name Role Phone Marques Martinez MD Primary Care Provider [phone] Encounter Details Date Type Department Care Team (Late st Contact Info) Description 05/01/2010 3:10 PM EST Office [place] [address] Jairon Fenton MD [facility] [place] [address] Discharge Disposition: Home Social History Tobacco Use [...] AM EDT Hospital Encounter Non-Invasive [place] [address] Arrived documented as of this encounter Visit Diagnoses Not on filedocumented in this encounter Care Teams Plywood Matcher Relationship Specialty Start Date End Date Marques Martinez MD [address] [place] [address] PCP - General 04/01/10 04/08/11 documented as of this encounter
--- OUTSIDE RECORDS SUMMARY | 2024-01-19 08:07 | XMS_ITS | Encounter Summary ---
[place] [address] Care Team Providers Care Accounting Manager Name Role Phone Marques Martinez MD Primary Care Provider [phone] Encounter Details Date Type Department Care Team (Late st Contact Info) Description 06/12/2010 2:00 PM EST Procedure visit [place] [address] Social History Tobacco Use Types Packs/Day Years [...] AM EDT Hospital Encounter Non-[place] [address] Arrived documented as of this encounter Visit Diagnoses Not on filedocumented in this encounter Care Teams Accounting Manager Relationship Specialty Start Date End Date Marques Martinez MD [address] [place] [address] PCP - General 04/01/10 04/08/11 documented as of this encounter
--- OUTSIDE RECORDS SUMMARY | 2024-01-19 08:07 | XMS_ITS | Encounter Summary ---
Author Organization [facility] [place] [address] Care Team Providers Care Sleeping Car Conductor Name Role Phone Marques Martinez MD Primary Care Provider [phone] Reason for Visit * Reason Comments Follow Up Fracture PATELLA FX DOI 03/23 10 Encounter Details Date Type Department Care Team (Late st Contact Info) Description 10/09/2010 12:40 PM EDT Office [place] [address] Jairon Gustafson MD [facility] [place] [address] Jose Francisco Bee PA [facility] [place] [address] Quadriceps tendon rupture (Primary Dx) Discharge Disposition: [...] AM EDT Hospital Encounter Non-[place] [address] Arrived documented as of this encounter Visit Diagnoses Diagnosis Quadriceps tendon rupture- Primary Sprain and strain of other specified sites of knee and leg documented in this encounter Care Teams Sleeping Car Conductor Relationship Specialty Start Date End Date Marques Martinez MD [address] [place] [address] PCP - General 04/01/10 04/08/11 documented as of this encounter
--- OUTSIDE RECORDS SUMMARY | 2024-01-19 08:07 | XMS_ITS | Encounter Summary ---
Author Organization [facility] [place] [address] Care Team Providers Care Box Toe Buffer Name Role Phone Marques Martinez MD Primary Care Provider [phone] Encounter Details Date Type Department Care Team (Late st Contact Info) Description 09/11/2010 Orders [place] [address] Jairon Fenton MD [facility] [address] [place] [address] Fracture of patella, left, closed (Primary Dx) [...] AM EDT Hospital Encounter Non-Invasive [place] [address] Arrived documented as of this encounter Visit Diagnoses Diagnosis Fracture of patella, left, closed- Primary Closed fracture of patella documented in this encounter Care Teams Box Toe Buffer Relationship Specialty Start Date End Date Marques Martinez MD [address] [place] [address] PCP - General 04/01/10 04/08/11 documented as of this encounter
[2024-01-19 08:15] VITALS: BP 118/67; PULSE 70
--- OUTSIDE RECORDS SUMMARY | 2024-01-21 09:00 | XMS_ITS | Clinical Summary ---
Author Organization [facility] [place] [address] Care Team Providers Care Employee Communications Manager Name Role Phone Donny Cooper MD Primary Care Provider [phone] Allergies No known active allergies Medications Medication [...] Care Team Description 01/05/2024 Telephone Cardiology at [address] [address] Kanika Shell 12/28/2023 Notes Only Cardiology at [address] [address] Kanika Shell 11/04/2023 10:00 AM EDT - 11/04/2023 11:59 PM EDT Hospital Encounter Non-[place] [address] Discharge Disposition: Home from Last 3 Months [...] AM EDT Hospital Encounter Non-[place] [address] Arrived Health Maintenance Due Date Last Done Comments Tdap adult 08/19/1959 Tetanus vaccine 08/19/1959 Zoster vaccine (1 of 2) 1990 Advance Directive 08/19/1995 Pneumoccocal Vaccine: 65+ (2 of 2 - PCV) 05/04/2009 05/04/2008 Covid-19 Vaccine (1 - season) 2024 Influenza (Flu) vaccine (1 o f 1 - Influenza standard series) 01/03/2024 02/01/2010, 03/06/2006, 02/24/2005 Medical Devices Implanted Type Area Enterprise Data Architect Device Identifier Shelf Expiration Date Model / Serial / Lot Mdt : [id number] : [id number] Implanted: (Quantity not on file) Cardiac Resynchronization Therapy - Defibrillator Chest Medtronic - [id number] / [id number] / Care Teams Employee Communications Manager Relationship Specialty Start Date End Date Donny Cooper MD [address] [place], [place] [address] PCP - General Family Medicine 02/25/19
--- OUTSIDE RECORDS SUMMARY | 2024-01-21 09:00 | XMS_ITS | Encounter Summary ---
Author Organization [facility] Address [address] [place] [address] Care Team Providers Care Plaster Molder Name Role Phone Unavailable Primary Care Provider Unavailabl e Encounter Details Date Type Department Care Team (Late st Contact Info) Description 12/02/2012 Results Only [facility] [address] [place] [address] Satinder Edwards MD [address] [place] [address] Social History Tobacco Use Types Packs/Day Years [...] ? NABIL IGLESIAS ? Accession #: ? [id number] ? : ? 1940 (Age: 72) ??M [...] MD PATHOLOGY ORDERABLE S Performing Organization Address City/State/[facility] Co de Phone Number DIVYA BERRY [address] [place] [address] documented in this encounter Visit Diagnoses Not on filedocumented in this encounter
--- OUTSIDE RECORDS SUMMARY | 2024-01-21 09:00 | XMS_ITS | Encounter Summary ---
[place] [address] Care Team Providers Care Sanding Supervisor Name Role Phone Donny Cooper MD Primary Care Provider [phone] Encounter Details Date Type Department Care Team (Latest Contact Info) Description 11/04/2023 10:00 AM EDT - 11/04/2023 11:59 PM EDT Hospital Encounter Non-Invasive [place] [address] Discharge Disposition: Home Social History Tobacco Use [...] EDT Hospital Encounter Non-Invasive [place] [phone] Arrived documented as of this encounter Procedures [...] on filedocumented in this encounter Care Teams Sanding Supervisor Relationship Specialty Start Date End Date Donny Cooper MD [address] [place] [address] PCP - General Family Medicine 02/25/19 documented as of this encounter
--- OUTSIDE RECORDS SUMMARY | 2024-01-21 09:00 | XMS_ITS | Clinical Summary ---
Author Organization [facility] Address [address] [place] [address] Care Team Providers Care Milk Receiver Tank Truck Name Role Phone Clem Olvera MD Primary Care Provider [phone] Allergies No known active allergies Medications Medication [...] PACEMAKER INSERTION 05/04/2002 - 05/03/20032013 second pacemaker [facility] Medical History Medical History Date Comments [...] Advance Directives For more information, please contact: [phone] * Full Code (Latest Code Status on File) Date Activated Date Inactivated Comments 02/27/2016 8:49 02/28/2016 15:40 Question Answer Comments Reason for decision includes: Full code consistent with overall plan of care Who participated in the discussion? Not Discusse d Care Teams Milk Receiver Tank Truck Relationship Specialty Start Date End Date Clem Olvera MD [address] [place] [id number] PCP - General 12/18/15
--- OUTSIDE RECORDS SUMMARY | 2024-01-21 09:00 | XMS_ITS | Encounter Summary ---
Author Organization [facility] Address [address] [place] [address] Care Team Providers Care Collaborative Physician Name Role Phone Clem Olvera MD Primary Care Provider [phone] Reason for Visit * Reason Onset Date Comments Appointment Related 10/23/2016 Check for fo llow up of pacer Encounter Details Date Type Department Care Team ([facility] Contact Info) Description 10/23/2016 Telephone [facility] Cardiology - [address] [place] [address] Pacemaker, Pace Appointment Related (Check [...] that Nabil had his pacemaker checked in [place] where they are for the winter. They have some back and are being followed by Dr. Hurd at [facility]. documented in this encounter Plan of Treatment Not on file documented as of this encounter Visit Diagnoses Not on filedocumented in this encounter Care Teams Collaborative Physician Relationship Specialty Start Date End Date Clem Olvera MD [address] [place] [address] PCP - General 12/18/15 documented as of this encounter
--- OUTSIDE RECORDS SUMMARY | 2024-01-21 09:00 | XMS_ITS | Encounter Summary ---
[place] [address] Care Team Providers Care Social Sciences Department Chair Name Role Phone Donny Cooper MD Primary Care Provider [phone] Encounter Details Date Type Department Care Team (Late st Contact Info) Description 01/05/2024 Telephone Cardiology at [address] [address] Kanika Shell Social History Tobacco [...] AM EDT Hospital Encounter Non-[place] [address] Arrived documented as of this encounter Visit Diagnoses Not on filedocumented in this encounter Care Teams Social Sciences Department Chair Relationship Specialty Start Date End Date Donny Cooper MD [address] [place] [address] PCP - General Family Medicine 02/25/19 documented as of this encounter
--- OUTSIDE RECORDS SUMMARY | 2024-01-21 09:00 | XMS_ITS | Encounter Summary ---
[place] [address] Care Team Providers Care Clam Sorter Name Role Phone Donny Cooper MD Primary Care Provider [phone] Encounter Details Date Type Department Care Team (Late st Contact Info) Description 12/28/2023 Notes Only Cardiology at [address] [phone] Kanika Shell Social History Tobacco Use Types [...] AM EDT Hospital Encounter Non[place] [address] Arrived documented as of this encounter Visit Diagnoses Not on filedocumented in this encounter Care Teams Clam Sorter Relationship Specialty Start Date End Date Donny Cooper MD [address] [facility] [address] [place] [address] PCP - General Family Medicine 02/25/19 documented as of this encounter
--- OUTSIDE RECORDS SUMMARY | 2024-01-21 09:00 | XMS_ITS | Encounter Summary ---
Author Organization [facility] Address [address] [place] [address] Care Team Providers Care Shop And Alteration Tailor Name Role Phone Clem Olvera MD Primary Care Provider [phone] Reason for Referral * (Routine) - Closed Specialty Diagnoses / Procedures Referred By Pedro madera Referred To Contact Beatrice De La Garza NP [address] [place] [phone] Referral ID Status Reason Start Date Expiration Date V isits Requested Visits Authorized [id number] Closed Specialty Services Required 02/27/2016 1 1 Comments You must contact us if we have not contacted you or you have missed your scheduled appointment. If you have any nursing questions, please don't hesitate to call the Cardiac Arrhythmia Service at [facility] at [phone] or , extension [phone]. For any scheduling of appointments, please call [phone] or , extension [phone]. . * (Routine) - Closed Specialty Diagnoses / Procedures Referred By Pedro madera Referred To Contact Beatrice De La Garza NP [address] [address] Referral ID Status Reason Start Date Expiration Date V isits Requested Visits Authorized [id number] Closed Specialty Services Required 02/27/2016 1 1 Comments You have a pre existing appointment with Dr. Olvera on March 05 at 2:00, please have Dr. Olvera check your incision at that visit. * (Routine) - Closed Specialty Diagnoses / Procedures Referred By Contbecca t Referred To Contact Beatrice De La Garza NP [address] [address] Referral ID Status Reason Start Date Expiration Date V isits Requested Visits Authorized [id number] Closed Specialty Services Required 02/27/2016 1 1 [...] scheduled at your first appointment. - [facility] Cardiology is located at [address] [facility] in [place] -Clinics are also held in [facility], and [place], [place] and [facility]. If you live in those areas, we will make arrangements for follow-up appointments in one of those clinics.. 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 He had heart failure symptoms that started around May 2013, when he was in [place], [place]. This triggered major cardiac workup including [...] then underwent a device upgrade to a AIR OPERATIONS MANAGER-D device with biventricular pacing for his [...] been followed in cardiology outreach clinic at [facility] in [place]. Continued high pacing threshold on the epicardial [...] and plans to follow up with his Land Management Supervisor in [place] in 6-8 weeks for [...] HGBA1C Discharge Follow Up Appointments Scheduled with [facility] Appointments Outside of [facility] We Will Schedule Studies We Will Schedule Appointments We Recommend but have not been Scheduled Beatrice De La Garza NP 02/27/2016 10:59 Associated attestation - Gulshan Montoya Sa, MD - 02/28/2016 1519 EDT Attending Attestation: I saw and evaluated the patient. I discussed the case with the resident/MANAGER BILINGUAL/fellow and agree with the findings and plan as documented above. Gulshan bullock Sa, MD Cardiac Electrophysiology documented in this encounter Discharge Instructions * Appointments* Beatrice De La Garza NP - 02/27/2016 11:[address] Olvera on 03/05/16 at 2:00 as previously scheduled for a routine visit and for a check of your incision. Follow up with Giselle Hill NP at the [facility] in May, you will [...] Notes * Lou Alfonso RN - 02/28/2016 6686 EDT Pt awaiting discharge. IV and tele was removed by primary nurse. This RN administered flu shot and provided flu information sheet. AVS and medications reviewed by RN with patient and . AVS statedcoreg was 3.25mg BID, which pt states no, they must have copied it down wrong. I'm not doing that.We've been through this in [place]. It makes me pass out. RN suggested checking with team, which pt denied and states I wont take it twice a day. He did agree to review this medication with his rubber press tender and plans to remain on his [...] friends and neighbors. Patient has Medicare and [facility]. Pharmacy is [facility] in [facility]. No needs identified at time of discharge. will provide transportation. 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 He had heart failure symptoms that started around May 2013, when he was in [place], [place]. This triggered major cardiac workup including [...] point, his device was upgraded to a AIR OPERATIONS MANAGER-D device with biventricular pacing. By the [...] been followed in cardiology outreach clinic at [facility] in [place]. Continued high pacing threshold on the epicardial LV lead has caused a very rapid battery depletion. Dr. David Adams in [place] recommended against lead extraction and reimplant as [...] ??? Pacemaker insertion 2002 2013 second pacemaker [facility] Social History Family History Social History Substance Use Topics ??? Smoking status: Former Smoker Years: 35.00 Quit date: 1989 ??? Smokeless tobacco: Not on file ??? Alcohol use 6.6 oz/week 6 Cans of beer, 5 Glasses of wine per week , lives with , retired. Spends leong in [place]. Spends the chery in [place], [place]. Quit smoking in 1990. 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 Also diagnosed with [...] point, his device was upgraded to a AIR OPERATIONS MANAGER-D device with biventricular pacing with a [...] EST) 03/12/2016 12:4 3 EST Scan 2 Voucher Examiner PROCEDURE/MINOR JUDD GICAL ORDERABLES * ECG REPORT - SCANNED (03/04/2016 14:06 EDT) 03/04/2016 14:0 6 EDT Scan 2 Voucher Examiner PROCEDURE/MINOR JUDD GICAL ORDERABLES * ECG REPORT - SCANNED (03/04/2016 14:06 EDT) 03/04/2016 14:0 6 EDT Scan 2 Voucher Examiner PROCEDURE/MINOR JUDD GICAL ORDERABLES * IMPLANT RECORD - SCANNED (03/04/2016 14:06 EDT) 03/04/2016 14:0 6 EDT Scan 2 Voucher Examiner PROCEDURE/MINOR JUDD GICAL ORDERABLES * ECG REPORT - SCANNED (03/01/2016 8:58 EDT) 03/01/2016 8:58 EDT Scan 2 Voucher Examiner PROCEDURE/MINOR JUDD GICAL ORDERABLES * ECG REPORT - SCANNED (03/01/2016 8:58 EDT) 03/01/2016 8:58 EDT Scan 2 Voucher Examiner PROCEDURE/MINOR JUDD GICAL ORDERABLES * CHEST PA [...] IMAGING ORDERABLES * HEMAGRAM (02/28/2016 5:44 EDT) [facility] WBC 9.84 4.0 - 10.4 K/cmm 02/28/2016 6:26 EDT [facility] RBC 4.42 4.36 - 5.78 M/cmm 02/28/2016 6:26 T [facility] Hemoglobin 14.2 13.8 - 17.3 gm/dl 02/28/2016 6:26 [facility] HCT 40.9 39.5 - 50.2 % 02/28/2016 6:26 [facility] MCV 93 81 - 95 fl 02/28/2016 6:26 [facility] MCH 32.1 27.6 - 33.0 pg 02/28/2016 6:26 [facility] MCHC 34.7 32.8 - 36.4 gm/dl 02/28/2016 6:26 [facility] RDW-CV 13.1 11.8 - 14.1 % 02/28/2016 6:26 [facility] RDW-SD 44.6 36.5 - 45.9 fl 02/28/2016 6:26 [facility] PLT 151 141 - 377 K/cmm 02/28/2016 6:26 [facility] MPV 11.2 9.5 - 12.7 fl 02/28/2016 6:26 [facility] Blood specimen (specimen) BLOOD SPECIMEN / Unknown 02/28/2016 5:44 EDT 02/28/2016 6:13 EDT Beatrice De La Garza NP HEMATOLOGY & PF4 ORDERABLES [facility] [address] [place] [address] * (ABNORMAL) CREATININE (02/28/2016 5:44 EDT) Creatinine 0.65(L) 0.66 - 1.25 mg/dl 02/28/2016 6:48 EDT [facility] GFR, Calculated 95 >60 ml/min/1.7 3m2 02/28/2016 6:48 EDT [facility] Comment: eGFR calculated using CKD-EPI equation for non Americans. Multiply eGFR by 1.16 for Americans. Blood specimen (specimen) BLOOD SPECIMEN / Unknown 02/28/2016 5:44 EDT 02/28/2016 6:13 EDT Beatrice De La Garza NP CHEMISTRY & B LOOD GAS ORDERABLES Performing Organization Address [facility]/ZIP Co de Phone Number [facility] [address] [place] [address] * BUN (02/28/2016 5:44 EDT) BUN 14 10 - 26 mg/dl 02/28/2016 6:48 EDT [facility] Blood specimen (specimen) BLOOD SPECIMEN / Unknown 02/28/2016 5:44 EDT 02/28/2016 6:13 EDT Beatrice De La Garza MANAGER BILINGUAL CHEMISTRY & B LOOD GAS ORDERABLES Performing Organization Address [facility] Co de Phone Number [facility] [address] [place] [address] * ELECTROLYTES (02/28/2016 5:44 EDT) Sodium 138 136 - 145 mEq/L 02/28/2016 6:48 EDT [facility] Potassium 4.7 3.5 - 5.0 mEq/L 02/28/2016 6:48 EDT [facility] Chloride 104 96 - 110 mEq/L 02/28/2016 6:48 EDT [facility] CO2 25 22 - 32 mEq/L 02/28/2016 6:48 EDT [facility] Comment:Note new reference r hong 02/19/16 Blood specimen (specimen) BLOOD SPECIMEN / Unknown 02/28/2016 5:44 EDT 02/28/2016 6:13 EDT Beatrice De La Garza NP CHEMISTRY & B LOOD GAS ORDERABLES [facility] [address] [place] [address] * PORTABLE CHEST 1 VIEW (02/27/2016 12:46 [...] 12:41 EDT) 02/27/2016 12:4 1 EDT Narrative [facility] - 02/28/2016 8:57 EDT ? [facility] ? Test Date: ?2016-02-27 Pat Name: ? NABIL IGLESIAS ? Department: ?? [facility] 5 ? Room: ? MW514 Gender: ? M ?Oim Consultant: ?? [id number] : ?1940 ? Requested By: KAIN REED L Order Number: [id number] ? Reading MD: ?? BRAYAN CUENCA MD ? Measurements Intervals ?[place] ? Rate: ? 63 ? P: ?15 ME: ? 159 ?QRS: ?234 QRSD: ? 156 ?T: ?15 QT: ? 479 ? QTc: ?493 ? Interpretive Statements ELECTRONIC VENTRICULAR PACEMAKER Compared to ECG 02/27/2016 08:10:34 No significant changes I reviewed the tracing and have either agreed or edited the findings in this report. Electronically Signed On 02-28-16 08:57:02 EDT by BRAYAN CUENCA MD. Procedure Note Brayan Cuenca MD - 02/28/2016 [facility] Test Date: 2016-02-27 Pat Name: NABIL IGLESIAS Department: [place] [address] Room: [facility] Gender: M Oim Consultant: [id number] : 1940 Requested By: KAIN Gallagher Order Number: [id number] Reading MD: BRAYAN CUENCA MD Measurements Intervals [place] Rate: 63 P: 15 ME: 159 QRS: 234 QRSD: 156 T: 15 QT: 479 QTc: 493 Interpretive Statements ELECTRONIC VENTRICULAR PACEMAKER Compared to ECG 02/27/2016 08:10:34 No significant changes I reviewed the tracing and have either agreed or edited the findings inthis report. Electronically Signed On 02-28-16 08:57:02 EDT by BRAYAN BEEBE. Gulshan Drummond MD PhD CARDIA C ECG ORDERABLES [facility] * PROTIME (02/27/2016 8:45 EDT) Pro Time 12.3 10.3 - 13.1 secs 02/27/2016 9:10 EDT [facility] Comment: New prothrombin t josue range effective 01/29/16 I.N.R. 1.1 0.9 - 1.1 Ratio 02/27/2016 9:10 EDT [facility] Comment: Moderate Intensity Coumadin INR = 2.0-3.0 Adjustments in anticoagulant therapy dose should be based upon the INR and NOT the Pro Time. Blood specimen (specimen) BLOOD SPECIMEN / Unknown 02/27/2016 8:45 EDT 02/27/2016 8:54 EDT Gulshan Drummond MD PhD HEMATO LOGY & PF4 ORDERABLES [facility] [address] [place] [address] * HEMAGRAM (02/27/2016 8:45 EDT) WBC 6.47 4.0 - 10.4 K/cmm 02/27/2016 8:57 EDT [facility] RBC 4.51 4.36 - 5.78 M/cmm 02/27/2016 8:57 EDT [facility] Hemoglobin 14.7 13.8 - 17.3 gm/dl 02/27/2016 8:57 EDT [facility] HCT 41.7 39.5 - 50.2 % 02/27/2016 8:57 EDT [facility] MCV 93 81 - 95 fl 02/27/2016 8:57 EDT [facility] MCH 32.6 27.6 - 33.0 pg 02/27/2016 8:57 EDT [facility] MCHC 35.3 32.8 - 36.4 gm/dl 02/27/2016 8:57 T [facility] RDW-CV 13.1 11.8 - 14.1 % 02/27/2016 8:57 EDT [facility] RDW-SD 44.0 36.5 - 45.9 fl 02/27/2016 8:57 EDT [facility] PLT 176 141 - 377 K/cmm 02/27/2016 8:57 EDT [facility] MPV 10.7 9.5 - 12.7 fl 02/27/2016 8:57 EDT [facility] Blood specimen (specimen) BLOOD SPECIMEN / Unknown 02/27/2016 8:45 EDT 02/27/2016 8:54 EDT Gulshan Drummond MD PhD HEMATO LOGY & PF4 ORDERABLES [facility] [address] [place] [address] * ELECTROLYTES (02/27/2016 8:45 EDT) Sodium 142 136 - 145 mEq/L 02/27/2016 9:13 EDT [facility] Potassium 4.7 3.5 - 5.0 mEq/L 02/27/2016 9:13 EDT [facility] Chloride 103 96 - 110 mEq/L 02/27/2016 9:13 EDT [facility] CO2 27 22 - 32 mEq/L 02/27/2016 9:13 EDT [facility] Comment:Note new reference r hong 02/19/16 Blood specimen (specimen) BLOOD SPECIMEN / Unknown 02/27/2016 8:45 EDT 02/27/2016 8:54 EDT Gulshan Drummond MD PhD CHEMIS TRY & BLOOD GAS ORDERABLES Performing Organization Address [facility] de Phone Number [facility] [address] [place] [address] * CREATININE (02/27/2016 8:45 EDT) Creatinine 0.69 0.66 - 1.25 mg/dl 02/27/2016 9:13 EDT [facility] GFR, Calculated 93 >60 ml/min/1.7 3m2 02/27/2016 9:13 EDT [facility] Comment: eGFR calculated using CKD-EPI equation for non Americans. Multiply eGFR by 1.16 for Americans. Blood specimen (specimen) BLOOD SPECIMEN / Unknown 02/27/2016 8:45 EDT 02/27/2016 8:54 EDT Gulshan Drummond MD PhD CHEMIS TRY & BLOOD GAS ORDERABLES Performing Organization Address City/[facility] Co de Phone Number [facility] [address] [place] [address] * BUN (02/27/2016 8:45 EDT) BUN 17 10 - 26 mg/dl 02/27/2016 9:13 EDT [facility] Blood specimen (specimen) BLOOD SPECIMEN / Unknown 02/27/2016 8:45 EDT 02/27/2016 8:54 EDT Gulshan Drummond MD PhD CHEMIS TRY & BLOOD GAS ORDERABLES [facility] [address] [place] [address] * EKG 12-LEAD (02/27/2016 8:08 EDT) 02/27/2016 8:08 EDT Narrative [facility] - 02/28/2016 9:01 EDT ? [facility] ? Test Date: ?2016-02-27 Pat Name: ? NABIL IGLESIAS ? Department: ?? [facility] ? Room: ? VW6627 Gender: ? M ?Oim Consultant: ?? [id number] : ?1940 ? Requested By: MARCIA Boo Order Number: [id number] ? Julia WRIGHT: ?? BRAYAN CUENCA MD ? Measurements Intervals ?[place] ? Rate: ? 69 ? P: ?147 ME: ? 134 ?QRS: ?-67 QRSD: ? 160 [...] Note Brayan Cuenca MD - 02/28/2016 [facility] Test Date: 2016-02-27 Pat Name: NABIL IGLESIAS Department: [facility] Room: AD2522 Gender: M Oim Consultant: [id number] : 1940 Requested By: MARCIA Boo Order Number: [id number] Reading MD: BRAYAN CUENCA MD Measurements Intervals [place] Rate: 69 P: 147 ME: 134 QRS: -67 QRSD: 160 T: -59 QT: 434 QTc: 467 Interpretive Statements ELECTRONIC ATRIAL PACEMAKER ELECTRONIC VENTRICULAR PACEMAKER Compared to ECG 02/27/2016 08:08:46 No significant changes I reviewed the tracing and have either agreed or edited the findings inthis report. Electronically Signed On 02-28-16 09:01:04 EDT by BRAYAN BEEBE. Navdeep Hurd MD CARDIAC ECG ORD ERABLES [facility] E[facility] documented in this encounter Visit [...] Reason: Other - Comment: pt already took HEALTH AND SAFETY SPECIALIST, takes other meds at HS) 921 [...] Reason: Other - Comment: pt already took HEALTH AND SAFETY SPECIALIST, takes other meds at [facility])2100 (Given - Provider: Mady Bruno RN) spironolactone (ALDACTONE) tablet 12.5 mg 12.5 mg, oral, DAILY, First dose on Thu02/27/16 at 1245, Until Discontinued, Routine 1306 (Not Given - Provider: Nneka Stuart RN - Reason: Other - Comment: pt already took HEALTH AND SAFETY SPECIALIST, takes other meds at [facility])2102 (Given - Provider: Mady Bruno RN) tamsulosin (FLOMAX) capsule 0.4 mg 0.4 mg, oral, DAILY, First dose on Thu02/27/16 at 1245, Until Discontinued, Routine 1306 (Not Given - Provider: Nneka Stuart RN - Reason: Other - Comment: pt already took HEALTH AND SAFETY SPECIALIST, takes other meds at [facility]) 921 [...] Provider: Reina Onofre RN)0939 (Given - Provider: eRina Onofre RN)0954 (Given - Provider: Reina Onofre [...] 02/02 documented in this encounter Care Teams Shop And Alteration Tailor Relationship Specialty Start Date End Date Clem Olvera MD [address] [place] [address] PCP - General 12/18/15 documented as of this encounter
--- OUTSIDE RECORDS SUMMARY | 2024-01-21 09:00 | XMS_ITS | Encounter Summary ---
Author Organization Health system Address [address] [place] [address] Care Team Providers Care Ehs Engineer Name Role Phone Clem Olvera MD Primary Care Provider [phone] Reason for Visit * Reason Onset Date Comments Other 04/04/2019 Transfer request for Pacer Care at [facility] Encounter Details Date Type Department Care Team (Late st Contact Info) Description 04/04/2019 Telephone [facility] [address] [place] [address] Giselle Hill, UNIT AIDE TECH Other (Transfer request for Pacer Care at [facility]) Social History Tobacco Use Types Packs/Day Years [...] 04/04/2019 1503 EST I went into the [employer] Website and released pt to [facility] Pacer Clinic as requested. * Telephone Encounter - Suze Reynoso - 04/04/2019 1342 EST PT WILL BE HAVING HIS PACER CARE DONE AT [facility], PLEASE RELEASE HIS REMOTE MONITORING SO THAT THEY CAN PICK IT UP documented in this encounter Plan of Treatment Not on file documented as of this encounter Visit Diagnoses Not on filedocumented in this encounter Care Teams Ehs Engineer Relationship Specialty Start Date End Date Clem Olvera MD [address] [place] [address] PCP - General 12/18/15 documented as of this encounter
--- OUTSIDE RECORDS SUMMARY | 2024-01-21 09:00 | XMS_ITS | Encounter Summary ---
[place] [address] Care Team Providers Care Residence Hall Director Name Role Phone Donny Cooper MD Primary Care Provider [phone] Encounter Details Date Type Department Care Team (Latest Contact Info) Description 07/02/2023 10:00 AM EST - 07/02/2023 11:59 PM EST Hospital Encounter Non-[place] [address] Discharge Disposition: Home Social History Tobacco Use [...] AM EDT Hospital Encounter Non-Invasive [place] [address] Arrived documented as of this encounter Visit Diagnoses Not on filedocumented in this encounter Care Teams Residence Hall Director Relationship Specialty Start Date End Date Donny Cooper MD [address] [place] [address] PCP - General Family Medicine 02/25/19 documented as of this encounter
--- OUTSIDE RECORDS SUMMARY | 2024-01-21 09:00 | XMS_ITS | Referral Summary ---
Author Organization [facility] Address [address] [place] [address] Care Team Providers Care Marina Dry Dock Manager Name Role Phone Clem Olvera MD Primary Care Provider Allergies No known active allergies Medications Medication [...] Advance Directives For more information, please contact: [phone] * Full Code (Latest Code Status on File) Date Activated Date Inactivated Comments 02/27/2016 8:49 02/28/2016 15:40 Question Answer Comments Reason for decision includes: Full code consistent with overall plan of care Who participated in the discussion? Not Discusse d Care Teams Marina Dry Dock Manager Relationship Specialty Start Date End Date Clem Olvera MD [address] [place] [id number] PCP - General 12/18/15
--- OUTSIDE RECORDS SUMMARY | 2024-01-21 09:00 | XMS_ITS | Encounter Summary ---
Author Organization [facility] Address [address] [place] [address] Care Team Providers Care Industrial Hygiene Technician Name Role Phone Clem Olvera MD Primary Care Provider Encounter Details Date Type Department Care Team (Latest Contact Info) Description 12/20/2015 10:52 EDT - 12/20/2015 23:52 EDT Hospital Encounter [facility] [address] [place] [address] Navdeep Hurd MD [address] [place] [address] [address] Discharge Disposition: Home or Self [...] no need to beNPO or have a star route mail driver. However, his will be accompanying him. They are driving someone to the airport for 1000 and then will come here and check-in around 1145. He agrees to have a shower. documented in this encounter Procedure Notes * Fantasma Dhillon MD - 12/20/2015 1356 EDT IR Brief Procedure Note Attending: Leo Saw Setter: Alejo Pre-op Dx: Arrhythmia, need for pacemaker [...] 12/19 documented in this encounter Care Teams Industrial Hygiene Technician Relationship Specialty Start Date End Date Clem Olvera MD [address] [place] [address] PCP - General 12/18/15 documented as of this encounter
--- OUTSIDE RECORDS SUMMARY | 2024-01-21 09:00 | XMS_ITS | Encounter Summary ---
Author Organization [facility] Address [address] [place] [address] Care Team Providers Care Dock Operator Name Role Phone Unavailable Primary Care Provider Unavailabl e Encounter Details Date Type Department Care Team (Late st Contact Info) Description 05/06/2001 Results Only [facility] [address] [place] [address] Hernandez Partida MD [address] [place] [id number] Social History Tobacco Use Types Packs/Day Years [...] is submitted entirely in cassette (B). ??(Naty Caal)/[facility] End of Report [facility] 05/06/2001 05/07/2001 9:2 5 EST Hernandez Partida MD PATHOLOGY ORDERABLES [facility] [address] [place] [address] documented in this encounter Visit Diagnoses Not on filedocumented in this encounter
--- OUTSIDE RECORDS SUMMARY | 2024-01-21 09:00 | XMS_ITS | Encounter Summary ---
Author Organization [facility] Address [address] [place] [address] Care Team Providers Care Manufacturing Worker Name Role Phone Unknown, Provider Primary Care Provider [phone] Clem Olvera MD Primary Care Provider [phone] Encounter Details Date Type Department Care Team (Late st Contact Info) Description 11/29/2015 Pre-Procedure Orders Encounter [facility] [address] [place], [place] [id number] Navdeep Hurd MD [address] [place] [address] [address] Social History Tobacco Use Types [...] Patient: Nabil Streeter. Attending: Dr. Moran Scrrajinder Laboratory Apparatus Glass Blower: Dr. Fantasma Dhillon History/indication: The patient is [...] Patient: Nabil Streeter Attending: Dr. Dean Bailey Laboratory Apparatus Glass Blower: Dr. Fantasma Dhillon History/indication: The patient is [...] filedocumented in this encounter Care Teams Manufacturing Worker Relationship Specialty Start Date End Date Unknown, Provider, PCP - General 12/06/12 12/17/15 Clem Olvera MD [address] [place] [address] PCP - General 12/18/15 documented as of this encounter
--- OUTSIDE RECORDS SUMMARY | 2024-01-21 09:00 | XMS_ITS | Encounter Summary ---
[place] [address] Care Team Providers Care Professor Of Journalism Name Role Phone Donny Cooper MD Primary Care Provider [phone] Encounter Details Date Type Department Care Team (Latest Contact Info) Description 04/03/2023 10:00 AM EST - 04/03/2023 11:59 PM [facility] Hospital Encounter Non-[place]vasive [place] [address] Discharge Disposition: Home Social History Tobacco Use [...] AM EDT Hospital Encounter Non-[place]vasive [place] [address] Arrived documented as of this [...] on filedocumented in this encounter Care Teams Professor Of Journalism Relationship Specialty Start Date End Date Donny Cooper MD [address] [place] [address] PCP - General Family Medicine 02/25/19 documented as of this encounter
--- OUTSIDE RECORDS SUMMARY | 2024-01-21 09:00 | XMS_ITS | Encounter Summary ---
[place] [address] Care Team Providers Care Reinforcing Iron And Rebar Workers Name Role Phone Donny Cooper MD Primary Care Provider [phone] Encounter Details Date Type Department Care Team (Latest Contact Info) Description 08/06/2023 10:00 AM EDT - 08/06/2023 11:59 PM EDT Hospital Encounter [place] [address] Discharge Disposition: Home Social History Tobacco Use [...] AM EDT Hospital Encounter Non-[place]vasive [place] [address] Arrived documented as of this encounter Visit Diagnoses Not on filedocumented in this encounter Care Teams Reinforcing Iron And Rebar Workers Relationship Specialty Start Date End Date Donny Cooper MD [address] [place] [address] PCP - General Family Medicine 02/25/19 documented as of this encounter
--- OUTSIDE RECORDS SUMMARY | 2024-01-21 09:00 | XMS_ITS | Encounter Summary ---
Author Organization 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 [address] [place] [address] ICD (implantable cardioverter-defibril lator) battery [...] 8 EDT Narrative 02/27/2016 15:17 EDT *Cardiology* [address] [place] [address] Lead Revision (Report amended ) Patient: Nabil Iglesias ?Study Date: ?02/27/2016 ? Accession #: ? [id number] : ? 1940 Referring: Clem Olvera Attending: [...] glide wire a Nick MENDOZAW 6F ([facility]) 6 mm-40 mm balloon dilation still could [...] Venograms were performed in the MOORE and PRYDEINIG projections and a suitable mid-lateral LV branch [...] fascia. The leads were connected to a LEVEL VIAL INSPECTOR-D device. Device and Lead detail in table [...] Implanted device: Medtronic - Viva Quad XT LEVEL VIAL INSPECTOR-D DF4 - Serial number: [id number] Explanted device: Medtronic - Viva XT LEVEL VIAL INSPECTOR-D DF4 - Serial number: [id number]. LEAD PARAMETERS + + + + + [...] + + + + + Serial number [id number] ? [id number] ?? [id number] ?? [id number] ? + + + + [...] Gulshan Drummond MD - 05/12/2016 *Cardiology* [address] [place] [address] Lead Revision (Report amended ) Patient: Nabil [...] therefore over an 0.35 glide wire [facility] ([facility]) 6 mm-40 mm balloon dilation still could [...] Venograms were performed in the MOORE and PRYDEINIG projections and a suitable mid-lateral LV branch [...] fascia. The leads were connected to a LEVEL VIAL INSPECTOR-D device. Device and Lead detail in table [...] Implanted device: Medtronic - Viva Quad XT LEVEL VIAL INSPECTOR-D DF4 - Serial number: [id number] Explanted device: Medtronic - Viva XT LEVEL VIAL INSPECTOR-D DF4 - Serial number: [id number]. LEAD PARAMETERS + + + + + + Lead # 1 2 3 4 + + + + + + Chamber RA RV LV LV + + + + + + Date 07/19/2002 07/18/2013 02/27/2016 07/18/2013 implanted + + + + + + Model St. Esa Medtronic Medtronic Enpath information 1658 [id number] Attain Epicardial Performa 4298 + + + + + + Serial number [id number] + + + + + + [...] situ documented in this encounter Care Teams Piece Goods Packer Relationship Specialty Start Date End Date Clem Olvera MD [address] [place] [address] PCP - General 12/18/15 documented as of this encounter
--- OUTSIDE RECORDS SUMMARY | 2024-01-21 09:00 | XMS_ITS | Encounter Summary ---
Author Organization Health system Address [address] [place] [address] Care Team Providers Care Jet Man Name Role Phone Clem Olvera MD Primary Care Provider [phone] Encounter Details Date Type Department Care Team (Late st Contact Info) Description 03/16/2019 Abstract [facility] Card[facility] Clinic [address] [place] [address] Ronal Avelar, JADON AV block, 2nd degree [...] Modality Device Narrative 03/24/2019 10:30 EST [facility] Cardiology Device Visit Distribution Manager: [employer] Device Type: CHANCELLOR-D Service: Remote ? 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
--- OUTSIDE RECORDS SUMMARY | 2024-01-21 09:01 | XMS_ITS | Encounter Summary ---
[place] [address] Care Team Providers Care Slash Trimmer Name Role Phone Marques Martinez MD Primary Care Provider [phone] Encounter Details Date Type Department Care Team (Late st Contact Info) Description 06/12/2010 2:00 PM EST Procedure visit [facility] [address] Social History Tobacco Use Types Packs/Day Years [...] AM EDT Hospital Encounter Non[place] [address] Arrived documented as of this encounter Visit Diagnoses Not on filedocumented in this encounter Care Teams Slash Trimmer Relationship Specialty Start Date End Date Marques Martinez MD [address] [place] [address] PCP - General 04/01/10 04/08/11 documented as of this encounter
--- OUTSIDE RECORDS SUMMARY | 2024-01-21 09:01 | XMS_ITS | Encounter Summary ---
[place] [address] Care Team Providers Care Pulping Machine Operator Name Role Phone Donny Cooper MD Primary Care Provider [phone] Encounter Details Date Type Department Care Team (Latest Contact Info) Description 01/03/2023 10:00 AM EDT - 01/03/2023 11:59 PM EDT Hospital Encounter [place] [address] Discharge Disposition: Home Social History Tobacco Use [...] AM EDT Hospital Encounter Non-[place] [address] Arrived documented as of this encounter Procedures Procedure Name Priority Date/Time Associated Diagnosis Comments PRO ICD INTERROGATION REMOTE UP TO 90 DAYS Routine 11/20/2022 3:16 AM EDT documented in this encounter Results * Cardiac Device Check - Remote (11/20/2022 3:16 AM EDT) Anatomical Region Laterality Modality Other 11/20/2022 3:16 AM EDT Miriam Zaptaa MD IMPLANTABLE CARDIAC DEVICE documented in this encounter Visit Diagnoses Not on filedocumented in this encounter Care Teams Pulping Machine Operator Relationship Specialty Start Date End Date Donny Cooper MD [address] [place] [address] PCP - General Family Medicine 02/25/19 documented as of this encounter
--- OUTSIDE RECORDS SUMMARY | 2024-01-21 09:01 | XMS_ITS | Encounter Summary ---
Author Organization [facility] [place] [address] Care Team Providers Care Paper Reclaiming Machine Operator Name Role Phone Marques Martinez MD Primary Care Provider [phone] Encounter Details Date Type Department Care Team (Late st Contact Info) Description 06/12/2010 2:10 PM EST Office [place] [address] Jairon Fenton MD [facility] OR[place]OP[place] [address] Discharge Disposition: Home Social History Tobacco Use [...] AM EDT Hospital Encounter Non-[place] [address] Arrived documented as of this encounter Visit Diagnoses Not on filedocumented in this encounter Care Teams Paper Reclaiming Machine Operator Relationship Specialty Start Date End Date Marques Martinez MD [address] [place] [address] PCP - General 04/01/10 04/08/11 documented as of this encounter
--- OUTSIDE RECORDS SUMMARY | 2024-01-21 09:01 | XMS_ITS | Encounter Summary ---
[place] [address] Care Team Providers Care Security Patrol Officer Name Role Phone Marques Martinez MD Primary Care Provider Encounter Details Date Type Department Care Team (Late st Contact Info) Description 05/01/2010 2:40 PM EST Procedure [place] [address] Social History Tobacco Use Types Packs/Day Years [...] AM EDT Hospital Encounter [place] [address] Arrived documented as of this encounter Visit Diagnoses Not on filedocumented in this encounter Care Teams Security Patrol Officer Relationship Specialty Start Date End Date Marques Martinez MD [address] [place] [address] PCP - General 04/01/10 04/08/11 documented as of this encounter
--- OUTSIDE RECORDS SUMMARY | 2024-01-21 09:01 | XMS_ITS | Encounter Summary ---
[place] [address] Care Team Providers Care Pet Ambassador Name Role Phone Marques Martinez MD Primary Care Provider [phone] Encounter Details Date Type Department Care Team (Late st Contact Info) Description 10/03/2010 [place] [address] Marina Orosco, JADON Social History Tobacco Use [...] AM EDT Hospital Encounter Non-[place] [address] Arrived documented as of this encounter Visit Diagnoses Not on filedocumented in this encounter Care Teams Pet Ambassador Relationship Specialty Start Date End Date Marques Martinez MD [address] [place] [address] PCP - General 04/01/10 04/08/11 documented as of this encounter
--- OUTSIDE RECORDS SUMMARY | 2024-01-21 09:01 | XMS_ITS | Encounter Summary ---
Author Organization [facility] [place] [address] Care Team Providers Care Breaker Layer Name Role Phone Marques Martinez MD Primary Care Provider [phone] Encounter Details Date Type Department Care Team (Late st Contact Info) Description 05/01/2010 3:10 PM EST Office Visit [place] [address] Jairon Fenton MD [facility] [place] [address] Discharge Disposition: Home Social History Tobacco Use [...] AM EDT Hospital Encounter Non-[place] [address] Arrived documented as of this encounter Visit Diagnoses Not on filedocumented in this encounter Care Teams Breaker Layer Relationship Specialty Start Date End Date Marques Martinez MD [address] [place] [address] PCP - General 04/01/10 04/08/11 documented as of this encounter
--- OUTSIDE RECORDS SUMMARY | 2024-01-21 09:01 | XMS_ITS | Encounter Summary ---
Author Organization [facility] [place] [address] Care Team Providers Care Technology Instructor Name Role Phone Marques Martinez MD Primary Care Provider [phone] Encounter Details Date Type Department Care Team (Late st Contact Info) Description 10/09/2010 11:35 AM EDT - 10/09/2010 11:59 PM EDT Hospital Encounter XRay at [address] [place] [address] Social History Tobacco Use Types Packs/Day Years [...] AM EDT Hospital Encounter Non-Invasive Cardiology Lab [facility] [place] [address] Arrived documented as of this encounter Visit Diagnoses Not on filedocumented in this encounter Care Teams Technology Instructor Relationship Specialty Start Date End Date Marques Martinez MD [address] [place] [address] PCP - General 04/01/10 04/08/11 documented as of this encounter
--- OUTSIDE RECORDS SUMMARY | 2024-01-21 09:01 | XMS_ITS | Encounter Summary ---
Author Organization [facility] [place] [address] Care Team Providers Care Wildlife Refuge Manager Name Role Phone Marques Martinez MD Primary Care Provider [phone] Reason for Visit * Reason Comments Follow Up Fracture PATELLA FX DOI 03/23 10 Encounter Details Date Type Department Care Team (Late st Contact Info) Description 10/09/2010 12:40 PM EDT Office [place] [address] Jairon Gustafson MD [facility] [place] [address] Jose Francisco Bee PA [facility] [place] [address] Quadriceps tendon rupture (Primary Dx) Discharge Disposition: [...] AM EDT Hospital Encounter Non-[place] [address] Arrived documented as of this encounter Visit Diagnoses Diagnosis Quadriceps tendon rupture- Primary Sprain and strain of other specified sites of knee and leg documented in this encounter Care Teams Wildlife Refuge Manager Relationship Specialty Start Date End Date Marques Martinez MD [address] [place] [address] PCP - General 04/01/10 04/08/11 documented as of this encounter
--- OUTSIDE RECORDS SUMMARY | 2024-01-21 09:01 | XMS_ITS | Encounter Summary ---
[place] [address] Care Team Providers Care Hedis Analyst Name Role Phone Donny Cooper MD Primary Care Provider [phone] Encounter Details Date Type Department Care Team (Latest Contact Info) Description 07/07/2022 10:00 AM EST - 07/07/2022 11:59 PM EST Hospital Encounter Non-Invasive [place] [address] Discharge Disposition: Home Social History Tobacco Use [...] AM EDT Hospital Encounter Non-Invasive [place] [address] Arrived documented as of [...] on filedocumented in this encounter Care Teams Hedis Analyst Relationship Specialty Start Date End Date Donny Cooper MD [address] [place] [address] PCP - General Family Medicine 02/25/19 documented as of this encounter
--- OUTSIDE RECORDS SUMMARY | 2024-01-21 09:01 | XMS_ITS | Encounter Summary ---
[place] [address] Care Team Providers Care Radial Router Operator Name Role Phone Donny Cooper MD Primary Care Provider [phone] Encounter Details Date Type Department Care Team (Latest Contact Info) Description 04/08/2022 10:00 AM EST - 04/08/2022 11:59 PM [facility] Hospital Encounter Non-[place] [address] Discharge Disposition: Home Social History Tobacco Use [...] AM EDT Hospital Encounter Non-[place] [address] Arrived documented as of this [...] on filedocumented in this encounter Care Teams Radial Router Operator Relationship Specialty Start Date End Date Donny Cooper MD [address] [place] [address] PCP - General Family Medicine 02/25/19 documented as of this encounter
--- OUTSIDE RECORDS SUMMARY | 2024-01-21 09:01 | XMS_ITS | Encounter Summary ---
Author Organization [facility] [place] [address] Care Team Providers Care Manager Intern Name Role Phone Donny Cooper MD Primary Care Provider [phone] Encounter Details Date Type Department Care Team (Latest Contact Info) Description 12/18/2020 11:57 AM EDT - 12/18/2020 11:59 PM EDT Hospital Encounter Non-[place] [address] Maged Arguelles MD [facility] [place] [address] Cardiomyopathy, primary Discharge Disposition: Home Social History [...] AM EDT Hospital Encounter Non-[place] [address] Arrived documented as of this encounter Procedures Procedure Name Priority Date/Time Associated Diagnosis Comments ICD INTERROGATION 3 MONTH Routine 12/18/2020 12:00 PM EDT Cardiomyopathy, primary documented in this encounter Results * ICD INTERROGATION 3 MONTH (12/18/2020 12:00 PM EDT) Anatomical Region Laterality Modality Other Narrative 12/23/2020 11:08 PM EDT MDT MOBILE HOME SET UP PERSON-D remote reviewed. Normal device function. Inadequate MOBILE HOME SET UP PERSON at 80%. Maged Arguelles MD [facility] Cardiac Electrophysiology 12/23/2020 11:06 PM Maged Arguelles MD IMPLANTABLE CARDIAC DEVICE documented in this encounter Visit Diagnoses Diagnosis Cardiomyopathy, primary Other primary cardiomyopathies documented in this encounter Care Teams Manager Intern Relationship Specialty Start Date End Date Donny Cooper MD [address] [facility] [address] [place] [address] PCP - General Family Medicine 02/25/19 documented as of this encounter
--- OUTSIDE RECORDS SUMMARY | 2024-01-21 09:01 | XMS_ITS | Encounter Summary ---
Author Organization [facility] [place] [address] Care Team Providers Care Coat Fitter Name Role Phone Donny Cooper MD Primary Care Provider [phone] Encounter Details Date Type Department Care Team (Latest Contact Info) Description 06/25/2021 3:23 PM EST - 06/25/2021 11:59 PM EST Hospital Encounter Non-[place] [address] Alber Seals MD [facility] [place] [address] Cardiomyopathy, primary Discharge Disposition: Home Social History [...] AM EDT Hospital Encounter Non-[place] [address] Arrived documented as of this encounter Procedures Procedure Name Priority Date/Time Associated Diagnosis Comments ICD INTERROGATION 3 MONTH Routine 06/25/2021 3:24 PM EST Cardiomyopathy, primary documented in this encounter Results * ICD INTERROGATION 3 MONTH (06/25/2021 3:24 PM EST) Anatomical Region Laterality Modality Other Narrative 06/25/2021 3:42 PM EST Cardiac Device Remote Monitoring Report Summary Medtronic Carelink Device: UNIT CLERK-D Model: VIVA QUAD Battery: 2.95 v, estimated longevity 2 years 6 months Pacing percentage: 90% UNIT CLERK paced Events: Presenting rhythm: atrial paced/biventricular paced Frequent PVC's Impression Normal device function Follow Up As per schedule - in-clinic and remote ALBER SEALS MD 06/25/21 Alber Seals MD IMPLANTABLE CARDIAC DEVICE documented in this encounter Visit Diagnoses Diagnosis Cardiomyopathy, primary Other primary cardiomyopathies documented in this encounter Care Teams Coat Fitter Relationship Specialty Start Date End Date Donny Cooper MD [address] [place] [address] PCP - General Family Medicine 02/25/19 documented as of this encounter
--- OUTSIDE RECORDS SUMMARY | 2024-01-21 09:01 | XMS_ITS | Encounter Summary ---
Author Organization [facility] [place] [address] Care Team Providers Care Business Continuity Specialist Name Role Phone Marques Martinez MD Primary Care Provider [phone] Encounter Details Date Type Department Care Team (Late st Contact Info) Description 03/30/2010 [place] [address] Javier Barajas MD [facility] [place] [address] Social History Tobacco Use Types Packs/Day Years [...] AM EDT Hospital Encounter Non-[place] [address] Arrived documented as of this encounter Procedures [...] AM EST Jairon Fenton MD CHEMISTRY ORDERABLES [facility] * (ABNORMAL) CREATININE, SERUM (04/01/2010 [...] Fenton MD CHEMISTRY ORDERABLES Performing Organization Address [facility] de Phone Number CERNER CHRISTOSENNIUM * BUN (04/01/2010 6:09 AM EST) Blood Urea Nitrogen 12 10 - 20 mg/dL [facility] Blood specimen (specimen) 04/01/2010 6:09 AM EST 04/01/2010 6:09 AM EST Jairon Fenton MD CHEMISTRY ORDERABLES Performing Organization Address [facility] de Phone Number CERNER MILLENNIUM * [...] 5:47 AM EST 04/01/2010 6:06 AM EST Jarion Fenton MD HEMATOLOGY ORDERABLE S [facility] MILLENNIUM [...] MD HEMATOLOGY ORDERABLE S Performing Organization Address [facility] de Phone Number CERNER MILLENNIUM * [...] Fenton MD CHEMISTRY ORDERABLES Performing Organization Address [facility] Phone Number CERIVIS MILLENNIUM * ELECTROLYTE PANEL (03/30/2010 6:05 PM EST) Pathologist [facility] Sodium 135 135 - 145 mmol/L CERNER [...] Fenton MD CHEMISTRY ORDERABLES Performing Organization Address [facility] Co de Phone Number CERIVIS MILLENNIUM * CREATININE, SERUM (03/30/2010 6:05 PM EST) Creatinine 0.87 0.80 - 1.50 mg/dL [facility] Est Glomerular Filtration Rate >60 >=60 [facility] Comment: The [...] Urea Nitrogen 18 10 - 20 mg/dL [facility] Blood specimen (specimen) 03/30/2010 6:05 PM EST 03/30/2010 6:13 PM EST Jairon Fenton MD CHEMISTRY ORDERABLES Performing Organization Address [facility] de Phone Number DEJA SEGOVIA * APTT (03/30/2010 6:05 PM EST) Partial Thromboplastin Time 26 25 - 37 sec [facility] Comment: Recommended therapeutic PTT range for full dose unfractionated heparin is 80-114 seconds. Blood specimen (specimen) 03/30/2010 6:05 PM EST 03/30/2010 6:14 PM EST Jairon eFnton MD HEMATOLOGY ORDERABLE S Performing Organization Address [facility] Phone Number DEJA SEGOVIA * PROTIME-INR (03/30/2010 6:05 PM EST) Prothrombin Time 14.2 12.3 - 14.7 sec [facility] Comment: [facility] Transfusion Committee Guidelines: INR less than 2.0, PTT less than OR equal to 43.5 seconds, or Fibrinogen greater than or equal to 100 mg/dl indicate adequate procoagulant activity for hemostasis in patients without underlying bleeding disorders. International Normalization Ratio 1.1 0.9 - 1.1 [facility] Blood specimen (specimen) 03/30/2010 6:05 PM EST 03/30/2010 6:14 PM EST Jairon Fenton MD HEMATOLOGY ORDERABLE S Performing Organization Address [facility] de Phone Number DEJA SEGOVIA * [...] Standard Deviation 44.2 35.0 - 46.0 fL [facility] RDW coefficient of variation 13.1 10.9 - 14.4 % [facility] Mean Platelet Volume 10.6 9.0 - 12.0 fL [facility] Blood specimen (specimen) 03/30/2010 6:05 PM EST 03/30/2010 6:13 PM EST Jairon Fenton MD HEMATOLOGY ORDERABLE S Performing Organization Address [facility] Co de Phone Number [facility] * REFLEX LAB-ANTIBODY SCREEN (03/30/2010 3:17 PM EST) [facility] Ab Screen Interp Negative [facility] Expires at [id number] on: [id number] [facility] Blood specimen (specimen) 03/30/2010 3:17 PM EST 03/30/2010 3:17 PM EST Javier Barajas MD BLOOD BANK LAB ORDER PRECIOUS Performing Organization Address [facility] Co de Phone Number [facility] * REFLEX LAB-ABO/RH (03/30/2010 3:17 PM EST) [facility] ABORH Type A Pos [facility] Blood specimen (specimen) 03/30/2010 3:17 PM EST 03/30/2010 3:17 PM EST Javier Barajas MD BLOOD BANK LAB ORDER PRECIOUS Performing Organization Address [facility] Co de Phone Number [facility] * ELECTROLYTE PANEL (03/30/2010 2:50 PM EST) [facility] Sodium 135 135 - 145 mmol/L [facility] Potassium 4.3 3.5 - 5.0 mmol/L [facility] Comment: Please note: ??Patients with [...] Barajas MD CHEMISTRY ORDERABLES Performing Organization Address [facility] Phone Number [facility] * BUN (03/30/2010 2:50 PM EST) Blood Urea Nitrogen 18 10 - 20 mg/dL [facility] Blood specimen (specimen) 03/30/2010 2:50 PM EST 03/30/2010 3:05 PM EST Javier Barajas MD CHEMISTRY ORDERABLES Performing Organization Address [facility] Phone Number [facility] * GLUCOSE, RANDOM (03/30/2010 2:50 PM EST) Glucose 95 <=199 mg/dL [facility] Comment:Diabetes: >=200 mg/d L plus symptoms Blood specimen (specimen) 03/30/2010 2:50 PM EST 03/30/2010 3:05 PM EST Javier Barajas MD CHEMISTRY ORDERABLES Performing Organization Address [facility] Phone Number [facility] * APTT (03/30/2010 2:50 PM EST) Partial Thromboplastin Time 25 25 - 37 sec [facility] Comment: Recommended therapeutic PTT range for full dose unfractionated heparin is 80-114 seconds. Blood specimen (specimen) 03/30/2010 2:50 PM EST 03/30/2010 3:06 PM EST Javier Barajas MD HEMATOLOGY ORDERABLE S Performing Organization Address [facility] Phone Number [facility] * PROTIME-INR (03/30/2010 2:50 PM EST) Prothrombin Time 14.1 12.3 - 14.7 sec [facility] Comment: [facility] Transfusion Committee Guidelines: INR less than [...] filedocumented in this encounter Care Teams Business Continuity Specialist Relationship Specialty Start Date End Date Marques Martinez MD [address] [place] [address] PCP - General 04/01/10 04/08/11 documented as of this encounter
--- OUTSIDE RECORDS SUMMARY | 2024-01-21 09:01 | XMS_ITS | Encounter Summary ---
Author Organization [facility] [place] [address] Care Team Providers Care Collar Pointer Name Role Phone Donny Cooper MD Primary Care Provider [phone] Encounter Details Date Type Department Care Team (Late st Contact Info) Description 07/26/2019 Notes Only Cardiology at [address] [address] Maged Arguelles MD [facility] [place] [address] Social History Tobacco Use Types Packs/Day Years [...] his Medtronic biventricular ICD is reviewed. Suboptimal METHODOLOGIST at 84%. Normal device function. Awaiting Holter to assess PVC burden. Maged Arguelles MD [facility] Cardiac Electrophysiology 07/26/2019 9:04 AM documented in this encounter Plan of Treatment Upcoming Encounters Date Type Department Care Team (Late st Contact Info) Description 02/02/2024 10:00 AM EDT Hospital Encounter Non-Invasive [place] [address] Arrived documented as of this encounter Visit Diagnoses Not on filedocumented in this encounter Care Teams Collar Pointer Relationship Specialty Start Date End Date Donny Cooper MD [address] [place] [address] PCP - General Family Medicine 02/25/19 documented as of this encounter
--- OUTSIDE RECORDS SUMMARY | 2024-01-21 09:01 | XMS_ITS | Encounter Summary ---
Author Organization [facility] [place] [address] Care Team Providers Care Bench Assembly Inspector Name Role Phone Donny Cooper MD Primary Care Provider [phone] Encounter Details Date Type Department Care Team (Latest Contact Info) Description 10/03/2022 10:00 AM EDT Office Visit Cardiology at [address] [address] Eleno No PA [facility] [address] Cardiomyopathy, primary; Presence of cardiac resynchronization therapy defibrillator (COAL UNLOADER-D); Diaphragmatic stimulation by cardiac pacemaker, initial encounter [...] original note were not included. Cardiac Device COAL UNLOADER-D Programming Evaluation Nabil Iglesias [id number] 10/03/2022 History: Mr. 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 [...] AM EDT Hospital Encounter Non-Invasive [place] [address] Arrived documented as of this encounter Procedures Procedure Name Priority Date/Time Associated Diagnosis Comments EKG 12-LEAD Routine 10/03/2022 11:00 AM EDT Cardiomyopathy, primary Presence of cardiac resynchronization therapy defibrillator (COAL UNLOADER-D) Diaphragmatic stimulation by cardiac pacemaker, initial encounter documented in this encounter Results * EKG 12 Lead (10/03/2022 11:00 AM EDT) Ventricular rate 74 BPM MUSE SYSTEM Atrial Rate 74 BPM MUSE SYSTEM P-R Interval 154 ms MUSE SYSTEM QRS Duration 162 ms MUSE SYSTEM Q-T Interval 470 ms MUSE SYSTEM QTC Calculated (Bezet) 521 ms MUSE SYSTEM Calculated P Sullivan 30 degrees MUSE SYSTEM Calculated R Sullivan -98 degrees MUSE SYSTEM Calculated T Sullivan 41 degrees MUSE SYSTEM INTERPRETATION Atrial-sense d [...] cardiomyopathies Presence of cardiac resynchronization therapy defibrillator (COAL UNLOADER-D) Diaphragmatic stimulation by cardiac pacemaker, initial encounter documented in this encounter Care Teams Bench Assembly Inspector Relationship Specialty Start Date End Date Donny Cooper MD [address] [place] [address] PCP - General Family Medicine 02/25/19 documented as of this encounter
--- OUTSIDE RECORDS SUMMARY | 2024-01-21 09:01 | XMS_ITS | Encounter Summary ---
Author Organization [facility] [place] [address] Care Team Providers Care Broodmare Foreman Name Role Phone Marques Martinez MD Primary Care Provider [phone] Encounter Details Date Type Department Care Team (Late st Contact Info) Description 09/11/2010 Orders [place] [address] Jairon Fenton MD [facility] DR [place] [address] Fracture of patella, left, closed (Primary Dx) [...] AM EDT Hospital Encounter Non-Invasive [place] [address] Arrived documented as of this encounter Visit Diagnoses Diagnosis Fracture of patella, left, closed- Primary Closed fracture of patella documented in this encounter Care Teams Broodmare Foreman Relationship Specialty Start Date End Date Marques Martinez MD [address] [place] [address] PCP - General 04/01/10 04/08/11 documented as of this encounter
--- OUTSIDE RECORDS SUMMARY | 2024-01-21 09:01 | XMS_ITS | Encounter Summary ---
Author Organization [facility] [place] [address] Care Team Providers Care Pulp Maker Name Role Phone Donny Cooper MD Primary Care Provider [phone] Encounter Details Date Type Department Care Team (Latest Contact Info) Description 06/13/2020 12:35 PM EST - 06/13/2020 11:59 PM EST Hospital Encounter Non-Invasive [place] [address] Alber Seals MD [facility] [place] [address] Cardiomyopathy, primary Discharge Disposition: Home Social History [...] EDT Hospital Encounter Non-Invasive [place] [address] Arrived documented as of this encounter Procedures Procedure Name Priority Date/Time Associated Diagnosis Comments ICD INTERROGATION 3 MONTH Routine 06/13/2020 12:36 PM EST Cardiomyopathy, primary documented in this encounter Results * ICD INTERROGATION 3 MONTH (06/13/2020 12:36 PM EST) Anatomical Region Laterality Modality Other Narrative 06/14/2020 10:38 AM EST Cardiac Device Remote Monitoring Report Summary [employer] 06/14/20 Device: ABATTOIR SUPERVISOR-D Model: VIVA QUAD Battery: 2.96 v, estimated longevity 3 years, 11 months Pacing percentage: 78% ventricular paced Events: The presenting rhythm is atrial paced with biventricular pacing and frequent ventricular premature contractions No significant arrhythmias Impression Normal device function; suboptimal ABATTOIR SUPERVISOR pacing likely secondary to frequent PVCs. Should consider in clinic follow-up for further evaluation Follow Up As per schedule - in-clinic and remote ALBER SEALS MD Alber Seals MD IMPLANTABLE CARDIAC DEVICE documented in this encounter Visit Diagnoses Diagnosis Cardiomyopathy, primary Other primary cardiomyopathies documented in this encounter Care Teams Pulp Maker Relationship Specialty Start Date End Date Donny Cooper MD [address] [place] [address] PCP - General Family Medicine 02/25/19 documented as of this encounter
--- OUTSIDE RECORDS SUMMARY | 2024-01-21 09:01 | XMS_ITS | Encounter Summary ---
Author Organization [facility] [place] [address] Care Team Providers Care Engineer/Conductor Name Role Phone Clem Olvera MD Primary Care Provider [phone] Reason for Visit * Reason Comments Follow Up Fracture SP PATELLA FX DO12/12 DOI 03/30/10 Encounter Details Date Type Department Care Team (Late st Contact Info) Description 04/09/2011 1:30 PM EST Office [place] [address] Jairon Gustafson MD [facility] [place] [address] Jose Francisco Bee PA [facility] [place] [address] Patella fracture (Primary Dx) Discharge Disposition: Home [...] Hospital Encounter Non-[place] [address] Arrived documented as of this encounter Visit Diagnoses Diagnosis Patella fracture- Primary Closed fracture of patella documented in this encounter Care Teams Engineer/Conductor Relationship Specialty Start Date End Date Clem Olvera MD [address] [place] [address] PCP - General 04/09/11 02/24/19 documented as of this encounter
--- OUTSIDE RECORDS SUMMARY | 2024-01-21 09:01 | XMS_ITS | Encounter Summary ---
[place] [address] Care Team Providers Care Lunchroom Supervisor Name Role Phone Donny Cooper MD Primary Care Provider [phone] Encounter Details Date Type Department Care Team (Late st Contact Info) Description 03/17/2019 Telephone Cardiology at [address] [address] Sheri Quinn LNA Social History [...] 11:46 AM EST Medication list reviewed with [facility] list. Please review with patient at next clinic visit. documented in this encounter Plan of Treatment Upcoming Encounters Date Type Department Care Team (Late st Contact Info) Description 02/02/2024 10:00 AM EDT Hospital Encounter Non-Invasive [place] [address] Arrived documented as of this encounter Visit Diagnoses Not on filedocumented in this encounter Care Teams Lunchroom Supervisor Relationship Specialty Start Date End Date Donny Cooper MD [address] [place] [address] PCP - General Family Medicine 02/25/19 documented as of this encounter
--- OUTSIDE RECORDS SUMMARY | 2024-01-21 09:01 | XMS_ITS | Encounter Summary ---
[place] [address] Care Team Providers Care Travel Rn Or Name Role Phone Donny Cooper MD Primary Care Provider [phone] Encounter Details Date Type Department Care Team (Latest Contact Info) Description 10/05/2022 10:00 AM EDT - 10/05/2022 11:59 PM EDT Hospital Encounter Non-[place] [address] Discharge Disposition: Home Social History Tobacco Use [...] AM EDT Hospital Encounter Non-[place]vasive [place] [address] Arrived documented as of this encounter Procedures [...] on filedocumented in this encounter Care Teams Travel Rn Or Relationship Specialty Start Date End Date Donny Cooper MD [address] [place] [address] PCP - General Family Medicine 02/25/19 documented as of this encounter
--- OUTSIDE RECORDS SUMMARY | 2024-01-21 09:01 | XMS_ITS | Encounter Summary ---
[place] [address] Care Team Providers Care Transformation Manager Name Role Phone Donny Cooper MD Primary Care Provider [phone] Encounter Details Date Type Department Care Team [...] Encounter Non-Invasive [place] [address] Arrived documented as of this encounter Visit Diagnoses Not on filedocumented in this encounter Care Teams Transformation Manager Relationship Specialty Start Date End Date Donny Cooper MD [address] [place] [address] PCP - General Family Medicine 02/25/19 documented as of this encounter
--- OUTSIDE RECORDS SUMMARY | 2024-01-21 09:01 | XMS_ITS | Encounter Summary ---
[place] [address] Care Team Providers Care Warehouse Representative Name Role Phone Donny Cooper MD Primary Care Provider [phone] Encounter Details Date Type Department Care Team (Late st Contact Info) Description 06/14/2020 Telephone Cardiology at [address] [address] Nhung Briggs Social History Tobacco Use Types [...] He would like to be seen at [facility]. Email sent to Brittaney Hernandez at [facility] asking her to reach out to pt to set up the appt with either Dr. Arguelles or LANG Albert. Nhung Allen Electrophysiology Scheduling [id number] option 2 documented in this encounter Plan of Treatment Upcoming Encounters Date Type Department Care Team (Late st Contact Info) Description 02/02/2024 10:00 AM EDT Hospital Encounter Non-[place] [address] Arrived documented as of this encounter Visit Diagnoses Not on filedocumented in this encounter Care Teams Warehouse Representative Relationship Specialty Start Date End Date Donny Cooper MD [address] [place] [address] PCP - General Family Medicine 02/25/19 documented as of this encounter
[2024-01-21 09:09] VITALS: BP 138/71; PULSE 72
[2024-01-26 08:20] VITALS: BP 111/63; PULSE 83
--- OUTSIDE RECORDS SUMMARY | 2024-01-26 08:20 | XMS_ITS | Encounter Summary ---
Author Organization [facility] Address [address] [place] [address] Care Team Providers Care Gamer Name Role Phone Clem Olvera MD Primary Care Provider [phone] Reason for Visit * Reason Onset Date Comments Other 04/04/2019 Transfer request for Pacer Care at [facility] Encounter Details Date Type Department Care Team (Late st Contact Info) Description 04/04/2019 Telephone [facility] [address] [place] [address] Giselle Hill, MARKETING ANALYTICS MANAGER Other (Transfer request for Pacer Care at [facility]) Social History Tobacco Use Types Packs/Day Years [...] 04/04/2019 1503 EST I went into the [employer] Website and released pt to [facility] Pacer Clinic as requested. * Telephone Encounter - Suze Reynoso - 04/04/2019 1342 EST PT WILL BE HAVING HIS PACER CARE DONE AT [facility], PLEASE RELEASE HIS REMOTE MONITORING SO THAT THEY CAN PICK IT UP documented in this encounter Plan of Treatment Not on file documented as of this encounter Visit Diagnoses Not on filedocumented in this encounter Care Teams Gamer Relationship Specialty Start Date End Date Clem Olvera MD [address] [place] [address] PCP - General 12/18/15 documented as of this encounter
--- OUTSIDE RECORDS SUMMARY | 2024-01-26 08:20 | XMS_ITS | Encounter Summary ---
[place] [address] Care Team Providers Care Actor Understudy Name Role Phone Marques Martinez MD Primary Care Provider [phone] Encounter Details Date Type Department Care Team (Late st Contact Info) Description 10/03/2010 Abstract [place] [address] Marina Orosco, JADON Social History Tobacco Use [...] AM EDT Hospital Encounter Non-[place] [address] Arrived documented as of this encounter Visit Diagnoses Not on filedocumented in this encounter Care Teams Actor Understudy Relationship Specialty Start Date End Date Marques Martinez MD [address] [place] [address] PCP - General 04/01/10 04/08/11 documented as of this encounter
--- OUTSIDE RECORDS SUMMARY | 2024-01-26 08:20 | XMS_ITS | Encounter Summary ---
[place] [address] Care Team Providers Care Network Control Technician Name Role Phone Donny Cooper MD Primary Care Provider [phone] Encounter Details Date Type Department Care Team (Late st Contact Info) Description 06/14/2020 Telephone Cardiology at [address] [phone] Nhung Briggs Social History Tobacco Use Types [...] or LANG Albert. Nhung Allen Electrophysiology Scheduling [id number] option 2 documented in this encounter Plan of Treatment Upcoming Encounters Date Type Department Care Team (Late st Contact Info) Description 02/02/2024 10:00 AM EDT Hospital Encounter [place] [address] Arrived documented as of this encounter Visit Diagnoses Not on filedocumented in this encounter Care Teams Network Control Technician Relationship Specialty Start Date End Date Donny Cooper MD [address] [place] [address] PCP - General Family Medicine 02/25/19 documented as of this encounter
--- OUTSIDE RECORDS SUMMARY | 2024-01-26 08:20 | XMS_ITS | Encounter Summary ---
Author Organization [facility] Address [address] [place] [address] Care Team Providers Care Burner Tender Name Role Phone Clem Olvera MD Primary Care Provider [phone] Reason for Referral * (Routine) - Closed Specialty Diagnoses / Procedures Referred By Pedro madera Referred To Contact Beatrice De La Garza NP [address] [place] [phone] Referral ID Status Reason Start Date Expiration Date V isits Requested Visits Authorized [id number] Closed Specialty Services Required 02/27/2016 1 1 Comments You must contact us if we have not contacted you or you have missed your scheduled appointment. If you have any nursing questions, please don't hesitate to call the Cardiac Arrhythmia Service at [facility] at or , extension [phone]. For any scheduling of appointments, please call [phone] or , extension [phone]. . * (Routine) - Closed Specialty Diagnoses / Procedures Referred By Pedro madera Referred To Contact Beatrice De La Garza NP [address] [address] Referral ID Status Reason Start Date Expiration Date V isits Requested Visits Authorized [id number] Closed Specialty Services Required 02/27/2016 1 1 Comments You have a pre existing appointment with Dr. Olvera on March 05 at 2:00, please have Dr. Olvera check your incision at that visit. * (Routine) - Closed Specialty Diagnoses / Procedures Referred By Contbecca t Referred To Contact Beatrice De La Garza NP [address] [address] Referral ID Status Reason Start Date Expiration Date V isits Requested Visits Authorized [id number] Closed Specialty Services Required 02/27/2016 1 1 [...] scheduled at your first appointment. - [facility] Cardiology is located at [address] [facility] in [place] -Clinics are also held in [facility], and [place], [place] and [facility]. If you live in those areas, we will make arrangements for follow-up appointments in one of those clinics.. Encounter Details Date Type Department Care Team (Late st Contact Info) Description 02/27/2016 6:30 EDT - 02/28/2016 13:39 EDT Hospital Encounter [facility] Cardiac/Telemetry Unit [address] [place] [address] Gulshan Drummond MD PhD [address] [address] Gulshan Montoya Sa, MD [address] [facility] [address] [place] [phone] AICD lead malfunction, subsequent encounter; ICD [...] around May 2013, when he was in [place], [place]. This triggered major cardiac workup including [...] then underwent a device upgrade to a OSTEOPATHIC NEUROLOGIST-D device with biventricular pacing for his EF [...] not be passed with a guidewire, Dr. Fracno decided to insert the RV/defibrillation lead via [...] been followed in cardiology outreach clinic at [facility] in [place]. Continued high pacing threshold on the epicardial [...] and plans to follow up with his Inseam Trimming Machine Operator in [place] in 6-8 weeks for which [...] Follow Up Appointments Scheduled with [facility] Appointments Outside of [facility] We Will Schedule Studies We Will Schedule Appointments We Recommend but have not been Scheduled Beatrice De La Garza NP 02/27/2016 10:59 Associated attestation - Gulshan Montoya Sa, MD - 02/28/2016 1519 EDT Attending Attestation: I saw and evaluated the patient. I discussed the case with the resident/COURT USHER/fellow and agree with the findings and plan [...] Notes * Lou Alfonso RN - 02/28/2016 0612 EDT Pt awaiting discharge. IV and tele was removed by primary nurse. This RN administered flu shot and provided flu information sheet. AVS and medications reviewed by RN with patient and . AVS statedcoreg was 3.25mg BID, which pt states no, they must have copied it down wrong. I'm not doing that.We've been through this in [place]. It makes me pass out. RN suggested checking with team, which pt denied and states I wont take it twice a day. He did agree to review this medication with his pig handler and plans to remain on his home dosing, which was in the morning. He received dose this am. Ptleft via wheelchair with . * Beatrice Rodriguez - 02/28/2016 1329 EDT Brief visit with patient and as they were being discharged. Patient states he is independent in self care and home management. He feels well supported by friends and neighbors. Patient has Medicare and [facility]. [facility] in [facility]. No needs identified at time of discharge. will provide transportation. Beatrice Rodriguez RN Case Manager #[phone] documented in this encounter H&P Notes * [...] around May 2013, when he was in [place], [place]. This triggered major cardiac workup including [...] point, his device was upgraded to a OSTEOPATHIC NEUROLOGIST-D device with biventricular pacing. By the patient's [...] been followed in cardiology outreach clinic at [facility] in [place]. Continued high pacing threshold on the epicardial LV lead has caused a very rapid battery depletion. Dr. David Adams in [place] recommended against lead extraction and reimplant as [...] insertion 2002 2013 second pacemaker [facility] Social History Family History Social History Substance Use Topics ??? Smoking status: Former Smoker Years: 35.00 Quit date: 1989 ??? Smokeless tobacco: Not on file ??? Alcohol use 6.6 oz/week 6 Cans of beer, 5 Glasses of wine per week , lives with , retired. Spends leong in [place]. Spends the chery in [place], [place]. Quit smoking in 1990. Has 2 [...] point, his device was upgraded to a OSTEOPATHIC NEUROLOGIST-D device with biventricular pacing with a surgically [...] EST) 03/12/2016 12:4 3 EST Scan 2 Photo Lab Specialist PROCEDURE/MINOR JUDD GICAL ORDERABLES * ECG REPORT - SCANNED (03/04/2016 14:06 EDT) 03/04/2016 14:0 6 EDT Scan 2 Photo Lab Specialist PROCEDURE/MINOR JUDD GICAL ORDERABLES * ECG REPORT - SCANNED (03/04/2016 14:06 EDT) 03/04/2016 14:0 6 EDT Scan 2 Photo Lab Specialist PROCEDURE/MINOR JUDD GICAL ORDERABLES * IMPLANT RECORD - SCANNED (03/04/2016 14:06 EDT) 03/04/2016 14:0 6 EDT Scan 2 Photo Lab Specialist PROCEDURE/MINOR JUDD GICAL ORDERABLES * ECG REPORT - SCANNED (03/01/2016 8:58 EDT) 03/01/2016 8:58 EDT Scan 2 Photo Lab Specialist PROCEDURE/MINOR JUDD GICAL ORDERABLES * ECG REPORT - SCANNED (03/01/2016 8:58 EDT) 03/01/2016 8:58 EDT Scan 2 Photo Lab Specialist PROCEDURE/MINOR JUDD GICAL ORDERABLES * CHEST PA [...] - 10.4 K/cmm 02/28/2016 6:26 EDT [facility] RBC 4.42 4.36 - 5.78 M/cmm 02/28/2016 6:26 T [facility] Hemoglobin 14.2 13.8 - 17.3 gm/dl 02/28/2016 6:26 [facility] HCT 40.9 39.5 - 50.2 % 02/28/2016 6:26 [facility] MCV 93 81 - 95 fl 02/28/2016 6:26 [facility] MCH 32.1 27.6 - 33.0 pg 02/28/2016 6:26 [facility] MCHC 34.7 32.8 - 36.4 gm/dl 02/28/2016 6:26 [facility] RDW-CV 13.1 11.8 - 14.1 % 02/28/2016 6:26 [facility] RDW-SD 44.6 36.5 - 45.9 fl 02/28/2016 6:26 [facility] PLT 151 141 - 377 K/cmm 02/28/2016 6:26 [facility] MPV 11.2 9.5 - 12.7 fl 02/28/2016 6:26 [facility] Blood specimen (specimen) BLOOD SPECIMEN / Unknown 02/28/2016 5:44 EDT 02/28/2016 6:13 EDT Beatrice De La Garza NP HEMATOLOGY & PF4 ORDERABLES [facility] [address] [place] [address] * (ABNORMAL) CREATININE (02/28/2016 5:44 EDT) Creatinine 0.65(L) 0.66 - 1.25 mg/dl 02/28/2016 6:48 EDT [facility] GFR, Calculated 95 >60 ml/min/1.7 3m2 02/28/2016 6:48 EDT [facility] Comment: eGFR calculated using CKD-EPI equation for non Americans. Multiply eGFR by 1.16 for Americans. Blood specimen (specimen) BLOOD SPECIMEN / Unknown 02/28/2016 5:44 EDT 02/28/2016 6:13 EDT Beatrice De La Garza NP CHEMISTRY & B LOOD GAS ORDERABLES Performing Organization Address [facility]/ZIP Co de Phone Number [facility] [address] [place] [address] * BUN (02/28/2016 5:44 EDT) BUN 14 10 - 26 mg/dl 02/28/2016 6:48 EDT [facility] Blood specimen (specimen) BLOOD SPECIMEN / Unknown 02/28/2016 5:44 EDT 02/28/2016 6:[address] De La Garza [address] USHER CHEMISTRY & B LOOD GAS ORDERABLES Performing Organization Address [facility] Co de Phone Number [facility] [address] [place] [address] * ELECTROLYTES (02/28/2016 5:44 EDT) Sodium 138 136 - 145 mEq/L 02/28/2016 6:48 EDT [facility] Potassium 4.7 3.5 - 5.0 mEq/L 02/28/2016 6:48 EDT [facility] Chloride 104 96 - 110 mEq/L 02/28/2016 6:48 EDT [facility] CO2 25 22 - 32 mEq/L 02/28/2016 6:48 EDT [facility] Comment:Note new reference r hong 02/19/16 Blood specimen (specimen) BLOOD SPECIMEN / Unknown 02/28/2016 5:44 EDT 02/28/2016 6:13 EDT Beatrice De La Garza NP CHEMISTRY & B LOOD GAS ORDERABLES [facility] [address] [place] [address] * PORTABLE CHEST 1 VIEW (02/27/2016 12:46 [...] EDT) 02/27/2016 12:4 1 EDT Narrative [facility] EKG - 02/28/2016 8:57 EDT ? [facility] ? Test Date: ?2016-02-27 Pat Name: ? NABIL IGLESIAS ? Department: ?? [facility] 5 ? Room: ? MW514 Gender: ? M ?Apprentice Architect: ?? [id number] : ?1940 ? Requested By: KAIN REED L Order Number: [id number] ? Reading MD: ?? BRAYAN CUENCA MD ? Measurements Intervals ?[place] ? Rate: ? 63 ? P: ?15 MD: ? 159 ?QRS: ?234 QRSD: ? 156 ?T: ?15 QT: ? 479 ? QTc: ?493 ? Interpretive Statements ELECTRONIC VENTRICULAR PACEMAKER Compared to ECG 02/27/2016 08:10:34 No significant changes I reviewed the tracing and have either agreed or edited the findings in this report. Electronically Signed On 02-28-16 08:57:02 EDT by BRAYAN CUENCA MD. Procedure Note Brayan Cuenca MD - 02/28/2016 [facility] Test Date: 2016-02-27 Pat Name: NABIL IGLESIAS Department: [place] [address] Room: [facility] Gender: M Apprentice Architect: [id number] : 1940 Requested By: KAIN Gallagher Order Number: [id number] Reading MD: BRAYAN CUENCA MD Measurements Intervals [place] Rate: 63 P: 15 MD: 159 QRS: 234 QRSD: 156 T: 15 QT: 479 QTc: 493 Interpretive Statements ELECTRONIC VENTRICULAR PACEMAKER Compared to ECG 02/27/2016 08:10:34 No significant changes I reviewed the tracing and have either agreed or edited the findings inthis report. Electronically Signed On 02-28-16 08:57:02 EDT by BRAYAN BEEBE. Gulshan Drummond MD PhD CARDIA C ECG ORDERABLES [facility] EKG * PROTIME (02/27/2016 8:45 EDT) Pro Time 12.3 10.3 - 13.1 secs 02/27/2016 9:10 EDT [facility] Comment: New prothrombin t josue range effective 01/29/16 I.N.R. 1.1 0.9 - 1.1 Ratio 02/27/2016 9:10 EDT [facility] Comment: Moderate Intensity Coumadin INR = 2.0-3.0 Adjustments in anticoagulant therapy dose should be based upon the INR and NOT the Pro Time. Blood specimen (specimen) BLOOD SPECIMEN / Unknown 02/27/2016 8:45 EDT 02/27/2016 8:54 EDT Gulshan Drummond MD PhD HEMATO LOGY & PF4 ORDERABLES [facility] [address] [place] [address] * HEMAGRAM (02/27/2016 8:45 EDT) WBC 6.47 4.0 - 10.4 K/cmm 02/27/2016 8:57 EDT [facility] RBC 4.51 4.36 - 5.78 M/cmm 02/27/2016 8:57 EDT [facility] Hemoglobin 14.7 13.8 - 17.3 gm/dl 02/27/2016 8:57 EDT [facility] HCT 41.7 39.5 - 50.2 % 02/27/2016 8:57 EDT [facility] MCV 93 81 - 95 fl 02/27/2016 8:57 EDT [facility] MCH 32.6 27.6 - 33.0 pg 02/27/2016 8:57 EDT [facility] MCHC 35.3 32.8 - 36.4 gm/dl 02/27/2016 8:57 T [facility] RDW-CV 13.1 11.8 - 14.1 % 02/27/2016 8:57 EDT [facility] RDW-SD 44.0 36.5 - 45.9 fl 02/27/2016 8:57 EDT [facility] PLT 176 141 - 377 K/cmm 02/27/2016 8:57 EDT [facility] MPV 10.7 9.5 - 12.7 fl 02/27/2016 8:57 EDT [facility] Blood specimen (specimen) BLOOD SPECIMEN / Unknown 02/27/2016 8:45 EDT 02/27/2016 8:54 EDT Gulshan Drummond MD PhD HEMATO LOGY & PF4 ORDERABLES [facility] [address] [place] [address] * ELECTROLYTES (02/27/2016 8:45 EDT) Sodium 142 136 - 145 mEq/L 02/27/2016 9:13 EDT [facility] Potassium 4.7 3.5 - 5.0 mEq/L 02/27/2016 9:13 EDT [facility] Chloride 103 96 - 110 mEq/L 02/27/2016 9:13 EDT [facility] CO2 27 22 - 32 mEq/L 02/27/2016 9:13 EDT [facility] Comment:Note new reference r hong 02/19/16 Blood specimen (specimen) BLOOD SPECIMEN / Unknown 02/27/2016 8:45 EDT 02/27/2016 8:54 EDT Gulshan Drummond MD PhD CHEMIS TRY & BLOOD GAS ORDERABLES Performing Organization Address [facility] de Phone Number [facility] [address] [place] [address] * CREATININE (02/27/2016 8:45 EDT) Creatinine 0.69 0.66 - 1.25 mg/dl 02/27/2016 9:13 EDT [facility] GFR, Calculated 93 >60 ml/min/1.7 3m2 02/27/2016 9:13 EDT [facility] Comment: eGFR calculated using CKD-EPI equation for non Americans. Multiply eGFR by 1.16 for Americans. Blood specimen (specimen) BLOOD SPECIMEN / Unknown 02/27/2016 8:45 EDT 02/27/2016 8:54 EDT Gulshan Drummond MD PhD CHEMIS TRY & BLOOD GAS ORDERABLES Performing Organization Address City/[facility] Co de Phone Number [facility] [address] [place] [address] * BUN (02/27/2016 8:45 EDT) BUN 17 10 - 26 mg/dl 02/27/2016 9:13 EDT [facility] Blood specimen (specimen) BLOOD SPECIMEN / Unknown 02/27/2016 8:45 EDT 02/27/2016 8:54 EDT Gulshan Drummond MD PhD CHEMIS TRY & BLOOD GAS ORDERABLES [facility] [address] [place] [address] * EKG 12-LEAD (02/27/2016 8:08 EDT) 02/27/2016 8:08 EDT Narrative [facility] EKG - 02/28/2016 9:01 EDT ? [facility] ? Test Date: ?2016-02-27 Pat Name: ? NABIL IGLESIAS ? Department: ?? [facility]iop[facility] ? Room: ? HK6900 Gender: ? M ?Apprentice Architect: ?? [id number] : ?1940 ? Requested By: MARCIA Boo Order Number: [id number] ? Julia WRIGHT: ?? BRAYAN CUENCA MD ? Measurements Intervals ?[place] ? Rate: ? 69 ? P: ?147 MD: ? 134 ?QRS: ?-67 QRSD: ? 160 [...] Note Brayan Cuenca MD - 02/28/2016 [facility] Test Date: 2016-02-27 Pat Name: NABIL IGLESIAS Department: [facility] Room: [id number] Gender: M Apprentice Architect: [id number] : 1940 Requested By: MARCIA Boo Order Number: [id number] Reading MD: BRAYAN CUENCA MD Measurements Intervals [place] Rate: 69 P: 147 MD: 134 QRS: -67 QRSD: 160 T: -59 QT: 434 QTc: 467 Interpretive Statements ELECTRONIC ATRIAL PACEMAKER ELECTRONIC VENTRICULAR PACEMAKER Compared to ECG 02/27/2016 08:08:46 No significant changes I reviewed the tracing and have either agreed or edited the findings inthis report. Electronically Signed On 02-28-16 09:01:04 EDT by BRAYAN BEEBE. Navdeep Hurd MD CARDIAC ECG ORD ERABLES [facility] EKG documented in this encounter Visit [...] Reason: Other - Comment: pt already took MERCHANDISE FOR RESALE PURCHASING AGENT, takes other meds at HS) 921 (Given [...] Reason: Other - Comment: pt already took MERCHANDISE FOR RESALE PURCHASING AGENT, takes other meds at HS)2100 (Given - Provider: Mady Bruno RN) spironolactone (ALDACTONE) tablet 12.5 mg 12.5 mg, oral, DAILY, First dose on Thu02/27/16 at 1245, Until Discontinued, Routine 1306 (Not Given - Provider: Nneka Stuart RN - Reason: Other - Comment: pt already took MERCHANDISE FOR RESALE PURCHASING AGENT, takes other meds at HS)2102 (Given - Provider: Mady Bruno RN) tamsulosin (FLOMAX) capsule 0.4 mg 0.4 mg, oral, DAILY, First dose on Thu02/27/16 at 1245, Until Discontinued, Routine 1306 (Not Given - Provider: Nneka Stuart RN - Reason: Other - Comment: pt already took MERCHANDISE FOR RESALE PURCHASING AGENT, takes other meds at HS) 921 (Given [...] 02/02 documented in this encounter Care Teams Burner Tender Relationship Specialty Start Date End Date Clem Olvera MD [address] [place] [id number] PCP - General 12/18/15 documented as of this encounter
--- OUTSIDE RECORDS SUMMARY | 2024-01-26 08:20 | XMS_ITS | Encounter Summary ---
Author Organization [facility] Address [address] [place] [address] Care Team Providers Care Senior Commissions Analyst Name Role Phone Unknown, Provider Primary Care Provider [phone] Clem Olvera MD Primary Care Provider [phone] Encounter Details Date Type Department Care Team (Late st Contact Info) Description 11/29/2015 Pre-Procedure Orders Encounter [facility] [address] [place], [place] [id number] Navdeep Hurd MD [address] [place] [address] [address] Social History Tobacco Use Types [...] Patient: Nabil Streeter. Attending: Dr. Moran Scrrajinder Water Sponger: Dr. Fantasma Dhillon History/indication: The patient is [...] Patient: Nabil Streeter Attending: Dr. Dean Bailey Water Sponger: Dr. Fantasma Dhillon History/indication: The patient is [...] filedocumented in this encounter Care Teams Senior Commissions Analyst Relationship Specialty Start Date End Date Unknown, Provider, PCP - General 12/06/12 12/17/15 Clem Olvera MD [address] [place] [address] PCP - General 12/18/15 documented as of this encounter
--- OUTSIDE RECORDS SUMMARY | 2024-01-26 08:20 | XMS_ITS | Encounter Summary ---
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 [address] [place] [address] ICD (implantable cardioverter-defibril lator) battery [...] 8 EDT Narrative 02/27/2016 15:17 EDT *Cardiology* [address] [place] [address] Lead Revision (Report amended ) Patient: Nabil Iglesias ?Study Date: ?02/27/2016 ? Accession #: ? [id number] : ? 1940 Referring: Clem Olvera Attending: [...] 0.35 glide wire a Nick MENDOZAW 6F ([facility]) 6 mm-40 mm balloon dilation [...] Venograms were performed in the MOORE and LIBERIAN projections and a suitable mid-lateral LV branch [...] fascia. The leads were connected to a LOGGER ALL ROUND-D device. Device and Lead detail in table [...] Implanted device: Medtronic - Viva Quad XT LOGGER ALL ROUND-D DF4 - Serial number: [id number] Explanted device: Medtronic - Viva XT LOGGER ALL ROUND-D DF4 - Serial number: [id number]. LEAD PARAMETERS + + + + + [...] + + + + + Serial number [id number] ? [id number] ?? [id number] ?? [id number] ? + + + + [...] Gulshan Drummond MD - 05/12/2016 *Cardiology* [address] [place] [address] Lead Revision (Report amended ) Patient: Nabil [...] therefore over an 0.35 glide wire [facility] ([facility]) 6 mm-40 mm balloon dilation [...] Venograms were performed in the MOORE and LIBERIAN projections and a suitable mid-lateral LV branch [...] fascia. The leads were connected to a LOGGER ALL ROUND-D device. Device and Lead detail in table [...] Implanted device: Medtronic - Viva Quad XT LOGGER ALL ROUND-D DF4 - Serial number: [id number] Explanted device: Medtronic - Viva XT LOGGER ALL ROUND-D DF4 - Serial number: [id number]. LEAD PARAMETERS + + + + + + Lead # 1 2 3 4 + + + + + + Chamber RA RV LV LV + + + + + + Date 07/19/2002 07/18/2013 02/27/2016 07/18/2013 implanted + + + + + + Model St. Esa Medtronic Medtronic Enpath information [id number] Attain Epicardial Performa 4298 + + + + + + Serial number [id number] + + + + + + [...] situ documented in this encounter Care Teams Certified Addiction Counselor Relationship Specialty Start Date End Date Clem Olvera MD [address] [place] [address] PCP - General 12/18/15 documented as of this encounter
--- OUTSIDE RECORDS SUMMARY | 2024-01-26 08:20 | XMS_ITS | Encounter Summary ---
Author Organization [facility] Address [address] [place] [address] Care Team Providers Care Software Quality Assurance Analyst Name Role Phone Unavailable Primary Care Provider Unavailabl e Encounter Details Date Type Department Care Team (Late st Contact Info) Description 05/06/2001 Results Only [facility] [address] [place] [address] Hernandez Partida MD [address] [place] [phone] Social History Tobacco Use Types Packs/Day Years [...] is submitted entirely in cassette (B). ??(Naty Caal)/[facility] End of Report [facility] 05/06/2001 05/07/2001 9:2 5 EST Hernandez Partida MD PATHOLOGY ORDERABLES [facility] [address] [place] [address] documented in this encounter Visit Diagnoses Not on filedocumented in this encounter
--- OUTSIDE RECORDS SUMMARY | 2024-01-26 08:20 | XMS_ITS | Encounter Summary ---
[facility] [address] Care Team Providers Care Manager Clinical Pharmacy Name Role Phone Marques Martinez MD Primary Care Provider Encounter Details Date Type Department Care Team (Late st Contact Info) Description 09/11/2010 Orders Only [place] [phone] Jairon Fenton MD [facility] [place] [address] Fracture of patella, left, closed (Primary Dx) [...] AM EDT Hospital Encounter [place] [address] Arrived documented as of this encounter Visit Diagnoses Diagnosis Fracture of patella, left, closed- Primary Closed fracture of patella documented in this encounter Care Teams Manager Clinical Pharmacy Relationship Specialty Start Date End Date Marques Martinez MD [address] [place] [address] PCP - General 04/01/10 04/08/11 documented as of this encounter
--- OUTSIDE RECORDS SUMMARY | 2024-01-26 08:20 | XMS_ITS | Encounter Summary ---
[place] [address] Care Team Providers Care Sawmill Moulder Operator Name Role Phone Donny Cooper MD Primary Care Provider [phone] Encounter Details Date Type Department Care Team (Latest Contact Info) Description 08/06/2023 10:00 AM EDT - 08/06/2023 11:59 PM EDT Hospital Encounter Non-[place] [address] Discharge Disposition: Home Social History Tobacco Use [...] AM EDT Hospital Encounter Non-[place]vasive [place] [address] Arrived documented as of this encounter Visit Diagnoses Not on filedocumented in this encounter Care Teams Sawmill Moulder Operator Relationship Specialty Start Date End Date Donny Cooper MD [address] [place] [address] PCP - General Family Medicine 02/25/19 documented as of this encounter
--- OUTSIDE RECORDS SUMMARY | 2024-01-26 08:20 | XMS_ITS | Encounter Summary ---
Author Organization [facility] [place] [address] Care Team Providers Care Wire Splicer Name Role Phone Donny Cooper MD Primary Care Provider [phone] Encounter Details Date Type Department Care Team (Latest Contact Info) Description 06/25/2021 3:23 PM EST - 06/25/2021 11:59 PM EST Hospital Encounter [place] [address] Alber Seals MD [facility] [place] [address] Cardiomyopathy, primary Discharge Disposition: Home Social History [...] AM EDT Hospital Encounter Non-[place]vasive [place] [address] Arrived documented as of this encounter Procedures Procedure Name Priority Date/Time Associated Diagnosis Comments ICD INTERROGATION 3 MONTH Routine 06/25/2021 3:24 PM EST Cardiomyopathy, primary documented in this encounter Results * ICD INTERROGATION 3 MONTH (06/25/2021 3:24 PM EST) Anatomical Region Laterality Modality Other Narrative 06/25/2021 3:42 PM EST Cardiac Device Remote Monitoring Report Summary Medtronic Carelink Device: SERVER-D Model: VIVA QUAD Battery: 2.95 v, estimated longevity 2 years 6 months Pacing percentage: 90% SERVER paced Events: Presenting rhythm: atrial paced/biventricular paced Frequent PVC's Impression Normal device function Follow Up As per schedule - in-clinic and remote ALBER SEALS MD 06/25/21 Alber Seals MD IMPLANTABLE CARDIAC DEVICE documented in this encounter Visit Diagnoses Diagnosis Cardiomyopathy, primary Other primary cardiomyopathies documented in this encounter Care Teams Wire Splicer Relationship Specialty Start Date End Date Donny Cooper MD [address] [place] [address] PCP - General Family Medicine 02/25/19 documented as of this encounter
--- OUTSIDE RECORDS SUMMARY | 2024-01-26 08:20 | XMS_ITS | Encounter Summary ---
Author Organization [facility] Address [address] [place] [address] Care Team Providers Care Emergency Room Physician Name Role Phone Unavailable Primary Care Provider Unavailabl e Encounter Details Date Type Department Care Team (Late st Contact Info) Description 12/02/2012 Results Only [facility] Laboratory Services - [facility] ([facility]) [address] [place] [id number] Satinder Edwards MD [address] [place] [address] Social History Tobacco Use Types Packs/Day Years [...] ? NABIL IGLESIAS ? Accession #: ? [id number] ? : ? 1940 (Age: 72) ??M [...] MD PATHOLOGY ORDERABLE S Performing Organization Address City/State/[facility] Co de Phone Number [facility] [address] [place] [address] documented in this encounter Visit Diagnoses Not on filedocumented in this encounter
--- OUTSIDE RECORDS SUMMARY | 2024-01-26 08:20 | XMS_ITS | Referral Summary ---
Author Organization [facility] Address [address] [place] [address] Care Team Providers Care Coal Handler Name Role Phone Clem Olvera MD [...] Advance Directives For more information, please contact: [phone] * Full Code (Latest Code Status on File) Date Activated Date Inactivated Comments 02/27/2016 8:49 02/28/2016 15:40 Question Answer Comments Reason for decision includes: Full code consistent with overall plan of care Who participated in the discussion? Not Discusse d Care Teams Coal Handler Relationship Specialty Start Date End Date Clem Olvera MD [address] [place] [id number] PCP - General 12/18/15
--- OUTSIDE RECORDS SUMMARY | 2024-01-26 08:20 | XMS_ITS | Encounter Summary ---
[place] [address] Care Team Providers Care Registered Representative Name Role Phone Donny Cooper MD Primary Care Provider [phone] Encounter Details Date Type Department Care Team (Late st Contact Info) Description 03/17/2019 Telephone Cardiology at [address] [address] Sheri Quinn LNA Social History [...] AM EST Medication list reviewed with [facility] list. Please review with patient at next clinic visit. documented in this encounter Plan of Treatment Upcoming Encounters Date Type Department Care Team (Late st Contact Info) Description 02/02/2024 10:00 AM EDT Hospital Encounter [place] [address] Arrived documented as of this encounter Visit Diagnoses Not on filedocumented in this encounter Care Teams Registered Representative Relationship Specialty Start Date End Date Donny Cooper MD [address] [place] [address] PCP - General Family Medicine 02/25/19 documented as of this encounter
--- OUTSIDE RECORDS SUMMARY | 2024-01-26 08:20 | XMS_ITS | Encounter Summary ---
Author Organization [facility] [place] [address] Care Team Providers Care Attorney Lawyer Name Role Phone Clem Olvera MD Primary Care Provider [phone] Reason for Visit * Reason Comments Follow Up Fracture SP PATELLA FX DO12/12 DOI 03/30/10 Encounter Details Date Type Department Care Team (Late st Contact Info) Description 04/09/2011 1:30 PM EST Office [place] [address] Jairon Gustafson MD [facility] [place] [address] Jose Francisco Bee PA [facility] [place] [address] Patella fracture (Primary Dx) Discharge Disposition: Home [...] Hospital Encounter Non-Invasive [place] [address] Arrived documented as of this encounter Visit Diagnoses Diagnosis Patella fracture- Primary Closed fracture of patella documented in this encounter Care Teams Attorney Lawyer Relationship Specialty Start Date End Date Clem Olvera MD [address] [place] [address] PCP - General 04/09/11 02/24/19 documented as of this encounter
--- OUTSIDE RECORDS SUMMARY | 2024-01-26 08:20 | XMS_ITS | Encounter Summary ---
[place] [address] Care Team Providers Care Ceramic Research Engineer Name Role Phone Donny Cooper MD Primary Care Provider [phone] Encounter Details Date Type Department Care Team [...] AM EDT Hospital Encounter Non-[place] [address] Arrived documented as of this encounter Visit Diagnoses Not on filedocumented in this encounter Care Teams Ceramic Research Engineer Relationship Specialty Start Date End Date Donny Cooper MD [address] [place] [address] PCP - General Family Medicine 02/25/19 documented as of this encounter
--- OUTSIDE RECORDS SUMMARY | 2024-01-26 08:20 | XMS_ITS | Encounter Summary ---
[place] [address] Care Team Providers Care Pasteurizer Name Role Phone Donny Cooper MD Primary Care Provider [phone] Encounter Details Date Type Department Care Team (Late st Contact Info) Description 12/28/2023 Notes Only Cardiology at [address] [address] Kanika Shell Social History Tobacco Use Types [...] AM EDT Hospital Encounter Non[place] [address] Arrived documented as of this encounter Visit Diagnoses Not on filedocumented in this encounter Care Teams Pasteurizer Relationship Specialty Start Date End Date Donny Cooper MD [address] [facility] [address] [place] [address] PCP - General Family Medicine 02/25/19 documented as of this encounter
--- OUTSIDE RECORDS SUMMARY | 2024-01-26 08:20 | XMS_ITS | Clinical Summary ---
Author Organization [facility] Address [address] [place] [address] Care Team Providers Care News Anchor Name Role Phone Clem Olvera MD Primary Care Provider [phone] Allergies No known active allergies Medications Medication [...] INSERTION 05/04/2002 - 05/03/20032013 second pacemaker [facility] Medical History Medical History Date [...] Advance Directives For more information, please contact: [phone] * Full Code (Latest Code Status on File) Date Activated Date Inactivated Comments 02/27/2016 8:49 02/28/2016 15:40 Question Answer Comments Reason for decision includes: Full code consistent with overall plan of care Who participated in the discussion? Not Discusse d Care Teams News Anchor Relationship Specialty Start Date End Date Clem Olvera MD [address] [place] [address] PCP - General 12/18/15
--- OUTSIDE RECORDS SUMMARY | 2024-01-26 08:20 | XMS_ITS | Encounter Summary ---
Author Organization [facility] [place] [address] Care Team Providers Care Transitional Kindergarten Teacher Name Role Phone Donny Cooper MD Primary Care Provider [phone] Encounter Details Date Type Department Care Team (Late st Contact Info) Description 07/26/2019 Notes Only Cardiology at [address] [address] Maged Arguelles MD [facility] [place] [address] Social History Tobacco Use Types Packs/Day Years [...] Medtronic biventricular ICD is reviewed. Suboptimal MANAGER FORENSIC at 84%. Normal device function. Awaiting Holter to assess PVC burden. Maged Arguelles MD [facility] Cardiac Electrophysiology 07/26/2019 9:04 AM documented in this encounter Plan of Treatment Upcoming Encounters Date Type Department Care Team (Late st Contact Info) Description 02/02/2024 10:00 AM EDT Hospital Encounter Non-Invasive [place] [address] Arrived documented as of this encounter Visit Diagnoses Not on filedocumented in this encounter Care Teams Transitional Kindergarten Teacher Relationship Specialty Start Date End Date Donny Cooper MD [address] [place] [address] PCP - General Family Medicine 02/25/19 documented as of this encounter
--- OUTSIDE RECORDS SUMMARY | 2024-01-26 08:20 | XMS_ITS | Encounter Summary ---
[place] [address] Care Team Providers Care Mattress And Boxsprings Supervisor Name Role Phone Donny Cooper MD Primary Care Provider [phone] Encounter Details Date Type Department Care Team (Latest Contact Info) Description 01/03/2023 10:00 AM EDT - 01/03/2023 11:59 PM EDT Hospital Encounter [place] [address] Discharge Disposition: Home Social History Tobacco Use [...] AM EDT Hospital Encounter Non[place] [address] Arrived documented as of this encounter Procedures [...] on filedocumented in this encounter Care Teams Mattress And Boxsprings Supervisor Relationship Specialty Start Date End Date Donny Cooper MD [address] [place] [address] PCP - General Family Medicine 02/25/19 documented as of this encounter
--- OUTSIDE RECORDS SUMMARY | 2024-01-26 08:20 | XMS_ITS | Encounter Summary ---
[place] [address] Care Team Providers Care Taker Off Braker Machine Name Role Phone Donny Cooper MD Primary Care Provider [phone] Encounter Details Date Type Department Care Team (Latest Contact Info) Description 04/08/2022 10:00 AM EST - 04/08/2022 11:59 PM [facility] Hospital Encounter [place] [address] Discharge Disposition: Home Social History Tobacco Use [...] on filedocumented in this encounter Care Teams Taker Off Braker Machine Relationship Specialty Start Date End Date Donny Cooper MD [address] [place] [address] PCP - General Family Medicine 02/25/19 documented as of this encounter
--- OUTSIDE RECORDS SUMMARY | 2024-01-26 08:20 | XMS_ITS | Encounter Summary ---
Author Organization [facility] Address [address] [place] [address] Care Team Providers Care Chemistry Tutor Name Role Phone Clem Olvera MD Primary Care Provider [phone] Encounter Details Date Type Department Care Team (Late st Contact Info) Description 03/16/2019 Abstract [facility] Cardiology Clinic [address] [place] [address] Ronal Avelar, JADON AV block, 2nd degree [...] Modality Device Narrative 03/24/2019 10:30 EST [facility] Cardiology Device Visit Brake Liner: iota Computingtronic Device Type: OIL DISPATCHER-D Service: Remote ? 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
--- OUTSIDE RECORDS SUMMARY | 2024-01-26 08:20 | XMS_ITS | Encounter Summary ---
[place] [address] Care Team Providers Care Shot Man Name Role Phone Donny Cooper MD Primary Care Provider [phone] Encounter Details Date Type Department Care Team (Late st Contact Info) Description 01/05/2024 Telephone Cardiology at [address] [address] Kanika Shell Social History Tobacco [...] AM EDT Hospital Encounter Non-[place] [address] Arrived documented as of this encounter Visit Diagnoses Not on filedocumented in this encounter Care Teams Shot Man Relationship Specialty Start Date End Date Donny Cooper MD [address] [place] [address] PCP - General Family Medicine 02/25/19 documented as of this encounter
--- OUTSIDE RECORDS SUMMARY | 2024-01-26 08:20 | XMS_ITS | Encounter Summary ---
Author Organization [facility] [address] Care Team Providers Care Artificial Leather Calender Operator Name Role Phone Marques Martinez MD Primary Care Provider [phone] Encounter Details Date Type Department Care Team (Late st Contact Info) Description 10/09/2010 11:35 AM EDT - 10/09/2010 11:59 PM EDT Hospital Encounter XRay at [address] [place] [address] Social History Tobacco Use Types Packs/Day Years [...] AM EDT Hospital Encounter Non-Invasive Cardiology Lab [facility] [place] [address] Arrived documented as of this encounter Visit Diagnoses Not on filedocumented in this encounter Care Teams Artificial Leather Calender Operator Relationship Specialty Start Date End Date Marques Martinez MD [address] [place] [address] PCP - General 04/01/10 04/08/11 documented as of this encounter
--- OUTSIDE RECORDS SUMMARY | 2024-01-26 08:20 | XMS_ITS | Encounter Summary ---
Author Organization [facility] [place] [address] Care Team Providers Care Quality Assurance Assistant Name Role Phone Donny Cooper MD Primary Care Provider [phone] Encounter Details Date Type Department Care Team (Latest Contact Info) Description 10/03/2022 10:00 AM EDT Office Visit Cardiology at [address] [address] Eleno No PA [facility] [place] [address] Cardiomyopathy, primary; Presence of cardiac resynchronization therapy defibrillator (CONE MACHINE FEEDER-D); Diaphragmatic stimulation by cardiac pacemaker, initial encounter [...] original note were not included. Cardiac Device CONE MACHINE FEEDER-D Programming Evaluation Nabil Iglesias [id number] 10/03/2022 History: Mr. 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 obvious [...] AM EDT Hospital Encounter Non-[place] [address] Arrived documented as of this encounter Procedures Procedure Name Priority Date/Time Associated Diagnosis Comments EKG 12-LEAD Routine 10/03/2022 11:00 AM EDT Cardiomyopathy, primary Presence of cardiac resynchronization therapy defibrillator (CONE MACHINE FEEDER-D) Diaphragmatic stimulation by cardiac pacemaker, initial encounter documented in this encounter Results * EKG 12 Lead (10/03/2022 11:00 AM EDT) Ventricular rate 74 BPM MUSE SYSTEM Atrial Rate 74 BPM MUSE SYSTEM P-R Interval 154 ms MUSE SYSTEM QRS Duration 162 ms MUSE SYSTEM Q-T Interval 470 ms MUSE SYSTEM QTC Calculated (Bezet) 521 ms MUSE SYSTEM Calculated P Foster 30 degrees MUSE SYSTEM Calculated R Foster -98 degrees MUSE SYSTEM Calculated T Foster 41 degrees MUSE SYSTEM INTERPRETATION Atrial-sense d [...] cardiomyopathies Presence of cardiac resynchronization therapy defibrillator (CONE MACHINE FEEDER-D) Diaphragmatic stimulation by cardiac pacemaker, initial encounter documented in this encounter Care Teams Quality Assurance Assistant Relationship Specialty Start Date End Date Donny Cooper MD [address] [place] [address] PCP - General Family Medicine 02/25/19 documented as of this encounter
--- OUTSIDE RECORDS SUMMARY | 2024-01-26 08:20 | XMS_ITS | Encounter Summary ---
[place] [address] Care Team Providers Care Timing Machine Operator Name Role Phone Donny Cooper MD Primary Care Provider [phone] Encounter Details Date Type Department Care Team (Latest Contact Info) Description 10/05/2022 10:00 AM EDT - 10/05/2022 11:59 PM EDT Hospital Encounter Non-[place] [address] Discharge Disposition: Home Social History Tobacco Use [...] AM EDT Hospital Encounter Non-Invasive [place] [address] Arrived documented as of this encounter Procedures [...] on filedocumented in this encounter Care Teams Timing Machine Operator Relationship Specialty Start Date End Date Donny Cooper MD [address] [place] [address] PCP - General Family Medicine 02/25/19 documented as of this encounter
--- OUTSIDE RECORDS SUMMARY | 2024-01-26 08:20 | XMS_ITS | Encounter Summary ---
[place] [address] Care Team Providers Care Automatic Coil Machine Operator Name Role Phone Donny Cooper MD Primary Care Provider [phone] Encounter Details Date Type Department Care Team (Latest Contact Info) Description 04/03/2023 10:00 AM EST - 04/03/2023 11:59 PM [facility] Hospital Encounter Non-Invasive [place] [address] Discharge Disposition: Home Social History Tobacco Use [...] EDT Hospital Encounter Non-Invasive [place] [address] Arrived documented as of this [...] on filedocumented in this encounter Care Teams Automatic Coil Machine Operator Relationship Specialty Start Date End Date Donny Cooper MD [address] [place] [address] PCP - General Family Medicine 02/25/19 documented as of this encounter
--- OUTSIDE RECORDS SUMMARY | 2024-01-26 08:20 | XMS_ITS | Encounter Summary ---
[place] [address] Care Team Providers Care Gear Nicker Name Role Phone Donny Cooper MD Primary Care Provider [phone] Encounter Details Date Type Department Care Team (Latest Contact Info) Description 11/04/2023 10:00 AM EDT - 11/04/2023 11:59 PM EDT Hospital Encounter Non-[place] [address] Discharge Disposition: Home Social History Tobacco Use [...] AM EDT Hospital Encounter Non-[place]vasive [place] [address] Arrived documented as of this encounter Procedures [...] on filedocumented in this encounter Care Teams Gear Nicker Relationship Specialty Start Date End Date Donny Cooper MD [address] [place] [address] PCP - General Family Medicine 02/25/19 documented as of this encounter
--- OUTSIDE RECORDS SUMMARY | 2024-01-26 08:20 | XMS_ITS | Encounter Summary ---
Author Organization [facility] Address [address] [place] [address] Care Team Providers Care Congressional Assistant Name Role Phone Clem Olvera MD Primary Care Provider [phone] Reason for Visit * Reason Onset Date Comments Appointment Related 10/23/2016 Check for fo llow up of pacer Encounter Details Date Type Department Care Team ([facility] Contact Info) Description 10/23/2016 Telephone [facility] Cardiology - [address] [place] [address] Pacemaker, Pace Appointment Related (Check [...] that Nabil had his pacemaker checked in [place] where they are for the winter. They have some back and are being followed by Dr. Hurd at [facility]. documented in this encounter Plan of Treatment Not on file documented as of this encounter Visit Diagnoses Not on filedocumented in this encounter Care Teams Congressional Assistant Relationship Specialty Start Date End Date Clem Olvera MD [address] [place] [address] PCP - General 12/18/15 documented as of this encounter
--- OUTSIDE RECORDS SUMMARY | 2024-01-26 08:20 | XMS_ITS | Encounter Summary ---
[place] [address] Care Team Providers Care Judicial Administrative Assistant Name Role Phone Donny Cooper MD Primary Care Provider [phone] Encounter Details Date Type Department Care Team (Latest Contact Info) Description 07/07/2022 10:00 AM EST - 07/07/2022 11:59 PM EST Hospital Encounter [place] [address] Discharge Disposition: Home Social History Tobacco Use [...] AM EDT Hospital Encounter [place] [address] Arrived documented as of this [...] on filedocumented in this encounter Care Teams Judicial Administrative Assistant Relationship Specialty Start Date End Date Donny Cooper MD [address] [place] [address] PCP - General Family Medicine 02/25/19 documented as of this encounter
--- OUTSIDE RECORDS SUMMARY | 2024-01-26 08:20 | XMS_ITS | Encounter Summary ---
[place] [address] Care Team Providers Care Sander And Buffer Name Role Phone Donny Cooper MD Primary Care Provider [phone] Encounter Details Date Type Department Care Team (Latest Contact Info) Description 07/02/2023 10:00 AM EST - 07/02/2023 11:59 PM EST Hospital Encounter Non-Invasive [place] [address] Discharge Disposition: Home Social History Tobacco Use [...] AM EDT Hospital Encounter Non-Invasive [place] [address] Arrived documented as of this encounter Visit Diagnoses Not on filedocumented in this encounter Care Teams Sander And Buffer Relationship Specialty Start Date End Date Donny Cooper MD [address] [place] [address] PCP - General Family Medicine 02/25/19 documented as of this encounter
--- OUTSIDE RECORDS SUMMARY | 2024-01-26 08:20 | XMS_ITS | Encounter Summary ---
Author Organization [facility] Address [address] [place] [address] Care Team Providers Care Special Client Bus Driver Name Role Phone Clem Olvera MD Primary Care Provider [phone] Encounter Details Date Type Department Care Team (Latest Contact Info) Description 12/20/2015 10:52 EDT - 12/20/2015 23:52 EDT Hospital Encounter [facility] Cardiovascular Unit [address] [place] [address] Navdeep Hurd MD [address] [place] [address] [address] Discharge Disposition: Home or Self [...] no need to beNPO or have a warehouse associate driver. However, his will be accompanying him. They are driving someone to the airport [place] 1000 and then will come here and check-in around 1145. He agrees to have a shower. documented in this encounter Procedure Notes * Fantasma Dhillon MD - 12/20/2015 1356 EDT IR Brief Procedure Note Attending: Leo Wood Model Maker: Alejo Pre-op Dx: Arrhythmia, need for [...] 12/19 documented in this encounter Care Teams Special Client Bus Driver Relationship Specialty Start Date End Date Clem Olvera MD [address] [place] [address] PCP - General 12/18/15 documented as of this encounter
--- OUTSIDE RECORDS SUMMARY | 2024-01-26 08:20 | XMS_ITS | Encounter Summary ---
Author Organization [facility] [place] [address] Care Team Providers Care Jig Worker Name Role Phone Marques Martinez MD Primary Care Provider [phone] Reason for Visit * Reason Comments Follow Up Fracture PATELLA FX DOI 03/23 10 Encounter Details Date Type Department Care Team (Late st Contact Info) Description 10/09/2010 12:40 PM EDT Office [place] [address] [facility] [place] [address] [facility] [place] [address] Quadriceps tendon rupture (Primary Dx) Discharge Disposition: [...] AM EDT Hospital Encounter Non-Invasive [place] [address] Arrived documented as of this encounter Visit Diagnoses Diagnosis Quadriceps tendon rupture- Primary Sprain and strain of other specified sites of knee and leg documented in this encounter Care Teams Jig Worker Relationship Specialty Start Date End Date Marques Martinez MD [address] [place] [address] PCP - General 04/01/10 04/08/11 documented as of this encounter
--- OUTSIDE RECORDS SUMMARY | 2024-01-26 08:20 | XMS_ITS | Encounter Summary ---
Author Organization [facility] [place] [address] Care Team Providers Care Senior Materials Planner Name Role Phone Donny Cooper MD Primary Care Provider [phone] Encounter Details Date Type Department Care Team (Latest Contact Info) Description 12/18/2020 11:57 AM EDT - 12/18/2020 11:59 PM EDT Hospital Encounter Non-[place] [address] Maged Arguelles MD [facility] [address] Cardiomyopathy, primary Discharge Disposition: Home Social History [...] AM EDT Hospital Encounter Non-Invasive [place] [address] Arrived documented as of this encounter Procedures Procedure Name Priority Date/Time Associated Diagnosis Comments ICD INTERROGATION 3 MONTH Routine 12/18/2020 12:00 PM EDT Cardiomyopathy, primary documented in this encounter Results * ICD INTERROGATION 3 MONTH (12/18/2020 12:00 PM EDT) Anatomical Region Laterality Modality Other Narrative 12/23/2020 11:08 PM EDT MDT MAMMALOGIST-D remote reviewed. Normal device function. Inadequate MAMMALOGIST at 80%. Maged Arguelles MD [facility] Cardiac Electrophysiology 12/23/2020 11:06 PM Maged Arguelles MD IMPLANTABLE CARDIAC DEVICE documented in this encounter Visit Diagnoses Diagnosis Cardiomyopathy, primary Other primary cardiomyopathies documented in this encounter Care Teams Senior Materials Planner Relationship Specialty Start Date End Date Donny Cooper MD [address] [facility] [address] [place] [address] PCP - General Family Medicine 02/25/19 documented as of this encounter
--- OUTSIDE RECORDS SUMMARY | 2024-01-26 08:20 | XMS_ITS | Encounter Summary ---
Author Organization [facility] [place] [address] Care Team Providers Care Truck Driver Rubbish Collector Name Role Phone Donny Cooper MD Primary Care Provider [phone] Encounter Details Date Type Department Care Team (Latest Contact Info) Description 06/13/2020 12:35 PM EST - 06/13/2020 11:59 PM EST Hospital Encounter [place] [address] Alber Seals MD [facility] [place] [address] Cardiomyopathy, primary Discharge Disposition: Home Social History [...] AM EDT Hospital Encounter [place] [address] Arrived documented as of this encounter Procedures Procedure Name Priority Date/Time Associated Diagnosis Comments ICD INTERROGATION 3 MONTH Routine 06/13/2020 12:36 PM EST Cardiomyopathy, primary documented in this encounter Results * ICD INTERROGATION 3 MONTH (06/13/2020 12:36 PM EST) Anatomical Region Laterality Modality Other Narrative 06/14/2020 10:38 AM EST Cardiac Device Remote Monitoring Report Summary Medtronic Dynex 06/14/20 Device: PIANO MECHANIC-D Model: VIVA QUAD Battery: 2.96 v, estimated longevity 3 years, 11 months Pacing percentage: 78% ventricular paced Events: The presenting rhythm is atrial paced with biventricular pacing and frequent ventricular premature contractions No significant arrhythmias Impression Normal device function; suboptimal PIANO MECHANIC pacing likely secondary to frequent PVCs. Should consider in clinic follow-up for further evaluation Follow Up As per schedule - in-clinic and remote ALBER SEALS MD Alber Seals MD IMPLANTABLE CARDIAC DEVICE documented in this encounter Visit Diagnoses Diagnosis Cardiomyopathy, primary Other primary cardiomyopathies documented in this encounter Care Teams Truck Driver Rubbish Collector Relationship Specialty Start Date End Date Donny Cooper MD [address] [place] [address] PCP - General Family Medicine 02/25/19 documented as of this encounter
--- OUTSIDE RECORDS SUMMARY | 2024-01-26 08:20 | XMS_ITS | Clinical Summary ---
Author Organization [facility] [place] [address] Care Team Providers Care Service Center Coordinator Name Role Phone Donny Cooper MD Primary Care Provider [phone] Allergies No known active allergies Medications Medication [...] (04/09/2011): SURGERY DATE: 03/31/2010 SURGICAL STAFF: PRINCESS UGSTAFSON MD PROCEDURE: 1. Open reduction internal fixation of left patellar fracture. 2. Repair of left quadriceps tendon rupture. POSTOPERATIVE DIAGNOSIS: Left quad tendon rupture with superolateral patellar avulsion fracture. INSTRUMENTATION USED: Synthes 4.0 cannulated screws x1. HTN (hypertension) Hyperlipidemia Left knee pain Urinary retention Encounters Date Type Department Care Team Description 01/05/2024 Telephone Cardiology at [address] [phone] Kanika Shell 12/28/2023 Notes Only Cardiology at [address] [address] Kanika Shell 11/04/2023 10:00 AM EDT - 11/04/2023 11:59 PM EDT Hospital Encounter [place] [address] Discharge Disposition: Home from Last 3 Months [...] AM EDT Hospital Encounter [place] [address] Arrived Health Maintenance Due Date Last Done Comments Tdap adult (Retired) 08/19/1959 Tetanus vaccine (Retired) 08/19/1959 Zoster vaccine (1 of 2) 1990 Advance Directive 08/19/1995 Pneumoccocal Vaccine: 65+ (2 of 2 - PCV) 05/04/2009 05/04/2008 Covid-19 Vaccine (1 - season) 2024 Influenza (Flu) vaccine (1 o f 1 - Influenza standard series) 01/03/2024 02/01/2010, 03/06/2006, 02/24/2005 Medical Devices Implanted Type Area Hat Brim And Crown Laminating Operator Device Identifier Shelf Expiration Date Model / Serial / Lot Mdt : [id number] : [id number] Implanted: (Quantity not on file) Cardiac Resynchronization Therapy - Defibrillator Chest Medtronic - [id number] / [id number] / Care Teams Service Center Coordinator Relationship Specialty Start Date End Date Donny Cooper MD [address] [place] [address] PCP - General Family Medicine 02/25/19
--- OUTSIDE RECORDS SUMMARY | 2024-01-26 08:21 | XMS_ITS | Encounter Summary ---
[place] [address] Care Team Providers Care Supervisor Dry Cell Assembly Name Role Phone Marques Martinez MD Primary Care Provider [phone] Encounter Details Date Type Department Care Team (Late st Contact Info) Description 06/12/2010 2:00 PM EST Procedure visit [place] [address] Social History Tobacco Use Types Packs/Day Years [...] AM EDT Hospital Encounter [place] [address] Arrived documented as of this encounter Visit Diagnoses Not on filedocumented in this encounter Care Teams Supervisor Dry Cell Assembly Relationship Specialty Start Date End Date Marques Martinez MD [address] [place] [address] PCP - General 04/01/10 04/08/11 documented as of this encounter
--- OUTSIDE RECORDS SUMMARY | 2024-01-26 08:21 | XMS_ITS | Encounter Summary ---
Author Organization [facility] [place] [address] Care Team Providers Care Music Therapist Name Role Phone Marques Martinez MD Primary Care Provider [phone] Encounter Details Date Type Department Care Team (Late st Contact Info) Description 05/01/2010 3:10 PM EST Office [place] [address] Jairon Fenton MD [facility] DR ORTHOPAEDIC [place] [address] Discharge Disposition: Home Social History Tobacco Use [...] AM EDT Hospital Encounter Non-[place] [address] Arrived documented as of this encounter Visit Diagnoses Not on filedocumented in this encounter Care Teams Music Therapist Relationship Specialty Start Date End Date Marques Martinez MD [address] [place] [address] PCP - General 04/01/10 04/08/11 documented as of this encounter
--- OUTSIDE RECORDS SUMMARY | 2024-01-26 08:21 | XMS_ITS | Encounter Summary ---
Author Organization [facility] [place] [place] [address] Care Team Providers Care Information Technology Audit Manager Name Role Phone Marques Martinez MD Primary Care Provider [phone] Encounter Details Date Type Department Care Team (Late st Contact Info) Description 06/12/2010 2:10 PM EST Office [place] [phone] Jairon Fenton MD [facility] DR [place] [address] Discharge Disposition: Home Social History Tobacco Use [...] AM EDT Hospital Encounter Non-[place] [address] Arrived documented as of this encounter Visit Diagnoses Not on filedocumented in this encounter Care Teams Information Technology Audit Manager Relationship Specialty Start Date End Date Marques Martinez MD [address] [place] [address] PCP - General 04/01/10 04/08/11 documented as of this encounter
--- OUTSIDE RECORDS SUMMARY | 2024-01-26 08:21 | XMS_ITS | Encounter Summary ---
[place] [address] Care Team Providers Care Food And Beverage Manager Name Role Phone Marques Martinez MD Primary Care Provider [phone] Encounter Details Date Type Department Care Team (Late st Contact Info) Description 05/01/2010 2:40 PM EST Procedure visit [place] [address] Social History Tobacco Use Types Packs/Day Years [...] EDT Hospital Encounter Non-Invasive [place]iology [place] [address] Arrived documented as of this encounter Visit Diagnoses Not on filedocumented in this encounter Care Teams Food And Beverage Manager Relationship Specialty Start Date End Date Marques Martinez MD [address] [place] [address] PCP - General 04/01/10 04/08/11 documented as of this encounter
--- OUTSIDE RECORDS SUMMARY | 2024-01-26 08:21 | XMS_ITS | Encounter Summary ---
Author [facility] [place] [address] Care Team Providers Care Pump Room Operator Name Role Phone Marques Martinez MD Primary Care Provider [phone] Encounter Details Date Type Department Care Team (Late st Contact Info) Description 03/30/2010 [place] [address] Javier Barajas MD [facility] [place] [address] Social History Tobacco Use Types Packs/Day Years [...] AM EDT Hospital Encounter Non-[place] [address] Arrived documented as of this encounter Procedures [...] AM EST Jairon Fenton MD CHEMISTRY ORDERABLES [facility] * (ABNORMAL) CREATININE, SERUM (04/01/2010 6:09 AM [...] Fenton MD CHEMISTRY ORDERABLES Performing Organization Address [facility] de Phone Number CERNER CHRISTOSENNIUM * BUN (04/01/2010 6:09 AM EST) Blood Urea Nitrogen 12 10 - 20 mg/dL [facility] Blood specimen (specimen) 04/01/2010 6:09 AM EST 04/01/2010 6:09 AM EST Jairon Fenton MD CHEMISTRY ORDERABLES Performing Organization Address [facility] de Phone Number CERNER MILLENNIUM * [...] MD HEMATOLOGY ORDERABLE S Performing Organization Address [facility] de Phone Number CERNER MILLENNIUM * [...] Fenton MD CHEMISTRY ORDERABLES Performing Organization Address [facility] Phone Number CERIVIS MILLENNIUM * ELECTROLYTE PANEL (03/30/2010 6:05 PM EST) Pathologist [facility] Sodium 135 135 - 145 mmol/L CERNER [...] Fenton MD CHEMISTRY ORDERABLES Performing Organization Address [facility] Co de Phone Number CERIVIS MILLENNIUM * CREATININE, SERUM (03/30/2010 6:05 PM EST) Creatinine 0.87 0.80 - 1.50 mg/dL [facility] Est Glomerular Filtration Rate >60 >=[address] [facility] Comment: The National Kidney Disease [...] Urea Nitrogen 18 10 - 20 mg/dL [facility] Blood specimen (specimen) 03/30/2010 6:05 PM EST 03/30/2010 6:13 PM EST Jairon Fenton MD CHEMISTRY ORDERABLES Performing Organization Address [facility] de Phone Number DEJA SEGOVIA * APTT (03/30/2010 6:05 PM EST) Partial Thromboplastin Time 26 25 - 37 sec [facility] Comment: Recommended therapeutic PTT range for full dose unfractionated heparin is 80-114 seconds. Blood specimen (specimen) 03/30/2010 6:05 PM EST 03/30/2010 6:14 PM EST Jairon Fenton MD HEMATOLOGY ORDERABLE S Performing Organization Address [facility] Phone Number DEJA SEGOVIA * PROTIME-INR (03/30/2010 6:05 PM EST) Prothrombin Time 14.2 12.3 - 14.[address] [facility] Comment: [facility] Transfusion Committee Guidelines: INR less than 2.0, PTT less than OR equal to 43.5 seconds, or Fibrinogen greater than or equal to 100 mg/dl indicate adequate procoagulant activity for hemostasis in patients without underlying bleeding disorders. International Normalization Ratio 1.1 0.9 - 1.1 [facility] Blood specimen (specimen) 03/30/2010 6:05 PM EST 03/30/2010 6:14 PM EST Jairon Fenton MD HEMATOLOGY ORDERABLE S Performing Organization Address [facility] de Phone Number DEJA SEGOVIA * [...] Standard Deviation 44.2 35.0 - 46.[address] [facility] RDW coefficient of variation 13.1 10.9 - 14.4 % [facility] Mean Platelet Volume 10.6 9.0 - 12.0 fL [facility] Blood specimen (specimen) 03/30/2010 6:05 PM EST 03/30/2010 6:13 PM EST Jairon Fenton MD HEMATOLOGY ORDERABLE S Performing Organization Address [facility] Co de Phone Number [facility] * REFLEX LAB-ANTIBODY SCREEN (03/30/2010 3:17 PM EST) [facility] Ab Screen Interp Negative [facility] Expires at [id number] on: [id number] [facility] Blood specimen (specimen) 03/30/2010 3:17 PM EST 03/30/2010 3:17 PM EST Javier Barajas MD BLOOD BANK LAB ORDER PRECIOUS Performing Organization Address [facility] Co de Phone Number [facility] * REFLEX LAB-ABO/RH (03/30/2010 3:17 PM EST) [facility] ABORH Type A Pos [facility] Blood specimen (specimen) 03/30/2010 3:17 PM EST 03/30/2010 3:17 PM EST Javier Barajas MD BLOOD BANK LAB ORDER PRECIOUS Performing Organization Address [facility] Co de Phone Number [facility] * ELECTROLYTE PANEL (03/30/2010 2:50 PM EST) [facility] Sodium 135 135 - 145 mmol/L [facility] Potassium 4.3 3.5 - 5.0 mmol/L [facility] Comment: Please note: ??Patients with [...] Barajas MD CHEMISTRY ORDERABLES Performing Organization Address [facility] Phone Number [facility] * BUN (03/30/2010 2:50 PM EST) Blood Urea Nitrogen 18 10 - 20 mg/dL [facility] Blood specimen (specimen) 03/30/2010 2:50 PM EST 03/30/2010 3:05 PM EST Javier Barajas MD CHEMISTRY ORDERABLES Performing Organization Address [facility] Phone Number [facility] * GLUCOSE, RANDOM (03/30/2010 2:50 PM EST) Glucose 95 <=199 mg/dL [facility] Comment:Diabetes: >=200 mg/d L plus symptoms Blood specimen (specimen) 03/30/2010 2:50 PM EST 03/30/2010 3:05 PM EST Javier Barajas MD CHEMISTRY ORDERABLES Performing Organization Address [facility] Phone Number [facility] * APTT (03/30/2010 2:50 PM EST) Partial Thromboplastin Time 25 25 - [address] [facility] Comment: Recommended therapeutic PTT range for full dose unfractionated heparin is 80-114 seconds. Blood specimen (specimen) 03/30/2010 2:50 PM EST 03/30/2010 3:06 PM EST Javier Barajas MD HEMATOLOGY ORDERABLE S Performing Organization Address [facility] Phone Number [facility] * PROTIME-INR (03/30/2010 2:50 PM EST) Prothrombin Time 14.1 12.3 - 14.[address] [facility] Comment: [facility] Transfusion Committee Guidelines: INR less than [...] on filedocumented in this encounter Care Teams Pump Room Operator Relationship Specialty Start Date End Date Marques Martinez MD [address] [place] [address] PCP - General 04/01/10 04/08/11 documented as of this encounter
--- OUTSIDE RECORDS SUMMARY | 2024-01-28 08:10 | XMS_ITS | Encounter Summary ---
Author Organization [facility] Address [address] [place] [address] Care Team Providers Care Cloth Shrinking Machine Operator Name Role Phone Clem Olvera MD Primary Care Provider [phone] Encounter Details Date Type Department Care Team (Late st Contact Info) Description 03/16/2019 Abstract [facility] [place] [facility] [address] [place] [address] Ronal Avelar, JADON AV block, 2nd degree [...] Laterality Modality Device Narrative 03/24/2019 10:30 EST [facility] [place] Cardiology Device Visit Cigarette Tester: PostPathtronic Device Type: HOOK LOADER-D Service: Remote ? 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
--- OUTSIDE RECORDS SUMMARY | 2024-01-28 08:10 | XMS_ITS | Clinical Summary ---
Author Organization [facility] Address [address] [place] [address] Care Team Providers Care Applications Consultant Name Role Phone Clem Olvera MD Primary Care Provider [phone] Allergies No known active allergies Medications Medication [...] PACEMAKER INSERTION 05/04/2002 - 05/03/20032013 second pacemaker [employer] [facility] Medical History Medical History Date Comments [...] Advance Directives For more information, please contact: [phone] * Full Code (Latest Code Status on File) Date Activated Date Inactivated Comments 02/27/2016 8:49 02/28/2016 15:40 Question Answer Comments Reason for decision includes: Full code consistent with overall plan of care Who participated in the discussion? Not Discusse d Care Teams Applications Consultant Relationship Specialty Start Date End Date Clem Olvera MD [address] [place] [address] PCP - General 12/18/15
--- OUTSIDE RECORDS SUMMARY | 2024-01-28 08:10 | XMS_ITS | Encounter Summary ---
Author Organization [facility] Address [address] [place] [address] Care Team Providers Care Chaser Helper Name Role Phone Celm Olvera MD Primary Care Provider [phone] Encounter Details Date Type Department Care Team (Latest Contact Info) Description 12/20/2015 10:52 EDT - 12/20/2015 23:52 EDT Hospital Encounter [facility] Cardiovascular Unit [address] [place] [address] Navdeep Hurd MD [address] [place] [address] [address] Discharge Disposition: Home or Self [...] no need to beNPO or have a special education bus driver. However, his will be accompanying him. They are driving someone to the airport for 1000 and then will come here and check-in around 1145. He agrees to have a shower. documented in this encounter Procedure Notes * Fantasma Dhillon MD - 12/20/2015 1356 EDT IR Brief Procedure Note Attending: Leo Auction Clerk: Alejo Pre-op Dx: Arrhythmia, need for pacemaker [...] 12/19 documented in this encounter Care Teams Chaser Helper Relationship Specialty Start Date End Date Clem Olvera MD [address] [place] [id number] PCP - General 12/18/15 documented as of this encounter
--- OUTSIDE RECORDS SUMMARY | 2024-01-28 08:10 | XMS_ITS | Encounter Summary ---
Author Organization [facility] Address [address] [place] [address] Care Team Providers Care Orchestra Leader Name Role Phone Clem Olvera MD Primary Care Provider [phone] Reason for Referral * (Routine) - Closed Specialty Diagnoses / Procedures Referred By Pedro madera Referred To Contact Beatrice De La Garza NP [address] [place] [phone] Referral ID Status Reason Start Date Expiration Date V isits Requested Visits Authorized [id number] Closed Specialty Services Required 02/27/2016 1 1 Comments You must contact us if we have not contacted you or you have missed your scheduled appointment. If you have any nursing questions, please don't hesitate to call the Cardiac Arrhythmia Service at [facility] at or , extension [phone]. For any scheduling of appointments, please call [phone] or , extension [phone]. . * (Routine) - Closed Specialty Diagnoses / Procedures Referred By Pedro madera Referred To Contact Beatrice De La Garza NP [address] [phone] Referral ID Status Reason Start Date Expiration Date V isits Requested Visits Authorized [id number] Closed Specialty Services Required 02/27/2016 1 1 Comments You have a pre existing appointment with Dr. Olvera on March 05 at 2:00, please have Dr. Olvera check your incision at that visit. * (Routine) - Closed Specialty Diagnoses / Procedures Referred By Contbecca t Referred To Contact Beatrice De La Garza NP [address] [phone] Referral ID Status Reason Start Date Expiration Date V isits Requested Visits Authorized [id number] Closed Specialty Services Required 02/27/2016 1 1 [...] scheduled at your first appointment. - [facility] Cardiology is located at [address] [facility] in [place] -Clinics are also held in [facility], and [place], [place] and [facility]. If you live in those areas, we will make arrangements for follow-up appointments in one of those clinics.. Encounter Details Date Type Department Care Team (Late st Contact Info) Description 02/27/2016 6:30 EDT - 02/28/2016 13:39 EDT Hospital Encounter [facility] Cardiac/Telemetry Unit [address] [place] [address] Gulshan Drummond MD PhD [address] [phone] Gulshan Montoya Sa, MD [address] [facility] [address] [place] [phone] AICD lead malfunction, subsequent encounter; ICD [...] EF of 20-25% status post silent inferior HI in the early . 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 He had heart failure symptoms that started around May 2013, when he was in [place], [place]. This triggered major cardiac workup including [...] then underwent a device upgrade to a ENGINEERED WOOD DESIGNER-D device with biventricular pacing for his EF [...] been followed in cardiology outreach clinic at [facility] in [place]. Continued high pacing threshold on the epicardial [...] and plans to follow up with his Administrative Officer in [place] in 6-8 weeks for which he will arrange once he has arrived in [place]. He has been provided with the implant [...] Follow Up Appointments Scheduled with [facility] Appointments Outside of [facility] We Will Schedule Studies We Will Schedule Appointments We Recommend but have not been Scheduled Beatrice De La Garza NP 02/27/2016 10:59 Associated attestation - Gulshan Montoya Sa, MD - 02/28/2016 1519 EDT Attending Attestation: I saw and evaluated the patient. I discussed the case with the resident/VAMP SEAMER/fellow and agree with the findings and plan [...] Notes * Lou Alfonso RN - 02/28/2016 5416 EDT Pt awaiting discharge. IV and tele [...] agree to review this medication with his supervisor communications and signals and plans to remain on his home dosing, which was in the morning. He received dose this am. Ptleft via wheelchair with . * Beatrice Rodriguez - 02/28/2016 1329 EDT Brief visit with patient and as they were being discharged. Patient states he is independent in self care and home management. He feels well supported by friends and neighbors. Patient has Medicare and [facility]. Pharmacy is [facility] in [facility]. No needs identified at time of discharge. will provide transportation. Beatrice Rodriguez RN Case Manager #[id number] documented in this encounter H&P Notes * Navdeep Hurd MD - 02/27/2016 0830 EDT Cardiology Admitting H&P Admit Date: 02/27/2016 Date of Service: 02/27/2016 PCP: Clem Olvera Code Status: Full Code Chief Complaint: FINN, device battery depletion, high pacing threshold on epicardial lead HPI: 74-year-old man with coronary artery disease and ischemic cardiomyopathy status post silent inferior HI in the early . 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 He had heart failure symptoms that started around May 2013, when he was in [place], [place]. This triggered major cardiac workup including [...] point, his device was upgraded to a ENGINEERED WOOD DESIGNER-D device with biventricular pacing. By the patient's [...] been followed in cardiology outreach clinic at [facility] in [place]. Continued high pacing threshold on the epicardial LV lead has caused a very rapid battery depletion. Dr. David Adams in [place] recommended against lead extraction and reimplant as [...] Pacemaker insertion 2002 2013 second pacemaker [facility] Social History Family History Social History Substance Use Topics ??? Smoking status: Former Smoker Years: 35.00 Quit date: 1989 ??? Smokeless tobacco: Not on file ??? Alcohol use 6.6 oz/week 6 Cans of beer, 5 Glasses of wine per week , lives with , retired. Spends leong in [place]. Spends the chery in [place], [place]. Quit smoking in 1990. Has 2 [...] and ischemic cardiomyopathy status post silent inferior HI in the early . Also diagnosed with [...] point, his device was upgraded to a ENGINEERED WOOD DESIGNER-D device with biventricular pacing with a surgically [...] EST) 03/12/2016 12:4 3 EST Scan 2 Fish Processor PROCEDURE/MINOR JUDD GICAL ORDERABLES * ECG REPORT - SCANNED (03/04/2016 14:06 EDT) 03/04/2016 14:0 6 EDT Scan 2 Fish Processor PROCEDURE/MINOR JUDD GICAL ORDERABLES * ECG REPORT - SCANNED (03/04/2016 14:06 EDT) 03/04/2016 14:0 6 EDT Scan 2 Fish Processor PROCEDURE/MINOR JUDD GICAL ORDERABLES * IMPLANT RECORD - SCANNED (03/04/2016 14:06 EDT) 03/04/2016 14:0 6 EDT Scan 2 Fish Processor PROCEDURE/MINOR JUDD GICAL ORDERABLES * ECG REPORT - SCANNED (03/01/2016 8:58 EDT) 03/01/2016 8:58 EDT Scan 2 Fish Processor PROCEDURE/MINOR JUDD GICAL ORDERABLES * ECG REPORT - SCANNED (03/01/2016 8:58 EDT) 03/01/2016 8:58 EDT Scan 2 Fish Processor PROCEDURE/MINOR JUDD GICAL ORDERABLES * CHEST PA [...] IMAGING ORDERABLES * HEMAGRAM (02/28/2016 5:44 EDT) [facility] WBC 9.84 4.0 - 10.4 K/cmm 02/28/2016 6:26 EDT [facility] RBC 4.42 4.36 - 5.78 M/cmm 02/28/2016 6:26 T [facility] Hemoglobin 14.2 13.8 - [...] NP HEMATOLOGY & PF4 ORDERABLES [facility] [address] [place] [address] * (ABNORMAL) CREATININE (02/28/2016 5:44 EDT) Creatinine 0.65(L) 0.66 - 1.25 mg/dl 02/28/2016 6:48 EDT [facility] GFR, Calculated 95 >60 ml/min/1.7 3m2 02/28/2016 6:48 EDT [facility] Comment: eGFR calculated using CKD-EPI equation for non Americans. Multiply eGFR by 1.16 for Americans. Blood specimen (specimen) BLOOD SPECIMEN / Unknown 02/28/2016 5:44 EDT 02/28/2016 6:13 EDT Beatrice De La Garza NP CHEMISTRY & B LOOD GAS ORDERABLES Performing Organization Address [facility]/ZIP Co de Phone Number [facility] [address] [place] [address] * BUN (02/28/2016 5:44 EDT) BUN 14 10 - 26 mg/dl 02/28/2016 6:48 EDT [facility] Blood specimen (specimen) BLOOD SPECIMEN / Unknown 02/28/2016 5:44 EDT 02/28/2016 6:13 EDT Beatrice De La Garza VAMP SEAMER CHEMISTRY & B LOOD GAS ORDERABLES Performing Organization Address [facility] Co de Phone Number [facility] [address] [place] [address] * ELECTROLYTES (02/28/2016 5:44 EDT) Sodium 138 136 - 145 mEq/L 02/28/2016 6:48 EDT [facility] Potassium 4.7 3.5 - 5.0 mEq/L 02/28/2016 6:48 EDT [facility] Chloride 104 96 - 110 mEq/L 02/28/2016 6:48 EDT [facility] CO2 25 22 - 32 mEq/L 02/28/2016 6:48 EDT [facility] Comment:Note new reference r hong 02/19/16 Blood specimen (specimen) BLOOD SPECIMEN / Unknown 02/28/2016 5:44 EDT 02/28/2016 6:13 EDT Beatrice De La Garza NP CHEMISTRY & B LOOD GAS ORDERABLES [facility] [address] [place] [address] * PORTABLE CHEST 1 VIEW (02/27/2016 12:46 [...] 02/27/2016 12:4 1 EDT Narrative [facility] EKG - 02/28/2016 8:57 EDT ? [facility] ? Test Date: ?2016-02-27 Pat Name: ? NABIL IGLESIAS ? Department: ?? [facility] ? Room: ? MW514 Gender: ? M ?Carpet Finishing Supervisor: ?? [id number] : ?1940 ? Requested By: KAIN REED L Order Number: [id number] ? Reading MD: ?? BRAYAN CUENCA MD ? Measurements Intervals ?[place] ? Rate: ? 63 ? P: ?15 [...] Note Brayan Cuenca MD - 02/28/2016 [facility] Test Date: 2016-02-27 Pat Name: NABIL IGLESIAS Department: [place] [address] Room: [facility] Gender: M Carpet Finishing Supervisor: [id number] : 1940 Requested By: KAIN Gallagher Order Number: [id number] Reading MD: BRAYAN CUENCA MD Measurements Intervals [place] Rate: 63 P: 15 ND: 159 QRS: 234 QRSD: 156 T: 15 QT: 479 QTc: 493 Interpretive Statements ELECTRONIC VENTRICULAR PACEMAKER Compared to ECG 02/27/2016 08:10:34 No significant changes I reviewed the tracing and have either agreed or edited the findings inthis report. Electronically Signed On 02-28-16 08:57:02 EDT by BRAYAN BEEBE. Gulshan Drummond MD PhD CARDIA C ECG ORDERABLES [facility] EKG * PROTIME (02/27/2016 8:45 EDT) Pro Time 12.3 10.3 - 13.1 secs 02/27/2016 9:10 EDT [facility] Comment: New prothrombin t josue range effective 01/29/16 I.N.R. 1.1 0.9 - 1.1 Ratio 02/27/2016 9:10 EDT [facility] Comment: Moderate Intensity Coumadin INR = 2.0-3.0 Adjustments in anticoagulant therapy dose should be based upon the INR and NOT the Pro Time. Blood specimen (specimen) BLOOD SPECIMEN / Unknown 02/27/2016 8:45 EDT 02/27/2016 8:54 EDT Gulshan Drummond MD PhD HEMATO LOGY & PF4 ORDERABLES [facility] [address] [place] [address] * HEMAGRAM (02/27/2016 8:45 EDT) WBC 6.47 4.0 - 10.4 K/cmm 02/27/2016 8:57 EDT [facility] RBC 4.51 4.36 - 5.78 M/cmm 02/27/2016 8:57 EDT [facility] Hemoglobin 14.7 13.8 - 17.3 gm/dl 02/27/2016 8:57 EDT [facility] HCT 41.7 39.5 - 50.2 % 02/27/2016 8:57 EDT [facility] MCV 93 81 - 95 fl 02/27/2016 8:57 EDT [facility] MCH 32.6 27.6 - 33.0 pg 02/27/2016 8:57 EDT [facility] MCHC 35.3 32.8 - 36.4 gm/dl 02/27/2016 8:57 T [facility] RDW-CV 13.1 11.8 - 14.1 % 02/27/2016 8:57 EDT [facility] RDW-SD 44.0 36.5 - 45.9 fl 02/27/2016 8:57 EDT [facility] PLT 176 141 - 377 K/cmm 02/27/2016 8:57 EDT [facility] MPV 10.7 9.5 - 12.7 fl 02/27/2016 8:57 EDT [facility] Blood specimen (specimen) BLOOD SPECIMEN / Unknown 02/27/2016 8:45 EDT 02/27/2016 8:54 EDT Gulshan Drummond MD PhD HEMATO LOGY & PF4 ORDERABLES [facility] [address] [place] [address] * ELECTROLYTES (02/27/2016 8:45 EDT) Sodium 142 136 - 145 mEq/L 02/27/2016 9:13 EDT [facility] Potassium 4.7 3.5 - 5.0 mEq/L 02/27/2016 9:13 EDT [facility] Chloride 103 96 - 110 mEq/L 02/27/2016 9:13 EDT [facility] CO2 27 22 - 32 mEq/L 02/27/2016 9:13 EDT [facility] Comment:Note new reference r hong 02/19/16 Blood specimen (specimen) BLOOD SPECIMEN / Unknown 02/27/2016 8:45 EDT 02/27/2016 8:54 EDT Gulshan Drummond MD PhD CHEMIS TRY & BLOOD GAS ORDERABLES Performing Organization Address [facility] de Phone Number [facility] [address] [place] [address] * CREATININE (02/27/2016 8:45 EDT) Creatinine 0.69 0.66 - 1.25 mg/dl 02/27/2016 9:13 EDT [facility] GFR, Calculated 93 >60 ml/min/1.7 3m2 02/27/2016 9:13 EDT [facility] Comment: eGFR calculated using CKD-EPI equation for non Americans. Multiply eGFR by 1.16 for Americans. Blood specimen (specimen) BLOOD SPECIMEN / Unknown 02/27/2016 8:45 EDT 02/27/2016 8:54 EDT Gulshan Drummond MD PhD CHEMIS TRY & BLOOD GAS ORDERABLES Performing Organization Address City/[facility] Co de Phone Number [facility] [address] [place] [address] * BUN (02/27/2016 8:45 EDT) BUN 17 10 - 26 mg/dl 02/27/2016 9:13 EDT [facility] Blood specimen (specimen) BLOOD SPECIMEN / Unknown 02/27/2016 8:45 EDT 02/27/2016 8:54 EDT Gulshan Drummond MD PhD CHEMIS TRY & BLOOD GAS ORDERABLES [facility] [address] [place] [address] * EKG 12-LEAD (02/27/2016 8:08 EDT) 02/27/2016 8:08 EDT Narrative [facility] EKG - 02/28/2016 9:01 EDT ? [facility] ? Test Date: ?2016-02-27 Pat Name: ? NABIL IGLESIAS ? Department: ?? [facility] ? Room: ? SQ0702 Gender: ? M ?Carpet Finishing Supervisor: ?? [id number] : ?1940 ? Requested By: MARCIA Boo Order Number: [id number] ? Julia WRIGHT: ?? BRAYAN CUENCA MD ? Measurements Intervals ?[place] ? Rate: ? 69 ? P: ?147 [...] Note Brayan Cuenca MD - 02/28/2016 [facility] Test Date: 2016-02-27 Pat Name: NABIL IGLESIAS Department: [facility] Room: [id number] Gender: M Carpet Finishing Supervisor: [id number] : 1940 Requested By: MARCIA Boo Order Number: [id number] Reading MD: BRAYAN CUENCA MD Measurements Intervals [place] Rate: 69 P: 147 ND: 134 QRS: [...] MD CARDIAC ECG ORD ERABLES [facility] EKG documented in this encounter Visit [...] Reason: Other - Comment: pt already took SENIOR CORE JAVA DEVELOPER, takes other meds at HS) 921 (Given [...] Reason: Other - Comment: pt already took SENIOR CORE JAVA DEVELOPER, takes other meds at HS)2100 (Given - Provider: Mady Bruno RN) spironolactone (ALDACTONE) tablet 12.5 mg 12.5 mg, oral, DAILY, First dose on Thu02/27/16 at 1245, Until Discontinued, Routine 1306 (Not Given - Provider: Nneka Stuart RN - Reason: Other - Comment: pt already took SENIOR CORE JAVA DEVELOPER, takes other meds at HS)2102 (Given - Provider: Mady Bruno RN) tamsulosin (FLOMAX) capsule 0.4 mg 0.4 mg, oral, DAILY, First dose on Thu02/27/16 at 1245, Until Discontinued, Routine 1306 (Not Given - Provider: Nneka Stuart RN - Reason: Other - Comment: pt already took SENIOR CORE JAVA DEVELOPER, takes other meds at HS) 921 (Given [...] 02/02 documented in this encounter Care Teams Orchestra Leader Relationship Specialty Start Date End Date Clem Olvera MD [address] [place] [address] PCP - General 12/18/15 documented as of this encounter
--- OUTSIDE RECORDS SUMMARY | 2024-01-28 08:10 | XMS_ITS | Encounter Summary ---
Author Organization [facility] Address [address] [place] [address] Care Team Providers Care Can Coverer Name Role Phone Clem Olvera MD Primary Care Provider [phone] Reason for Visit * Reason Onset Date Comments Other 04/04/2019 Transfer request for Pacer Care at [facility] Encounter Details Date Type Department Care Team (Late st Contact Info) Description 04/04/[address] [facility] [address] [place] [address] Giselle Hill, NUCLEAR AUXILIARY OPERATOR Other (Transfer request for Pacer Care at [facility]) Social History Tobacco Use Types [...] 04/04/2019 1503 EST I went into the [employer] Website and released pt to [facility] Pacer Clinic as requested. * Telephone Encounter - Suze Reynoso - 04/04/2019 1342 EST PT WILL BE HAVING HIS PACER CARE DONE AT [facility], PLEASE RELEASE HIS REMOTE MONITORING SO THAT THEY CAN PICK IT UP documented in this encounter Plan of Treatment Not on file documented as of this encounter Visit Diagnoses Not on filedocumented in this encounter Care Teams Can Coverer Relationship Specialty Start Date End Date Clem Olvera MD [address] [place] [id number] PCP - General 12/18/15 documented as of this encounter
--- OUTSIDE RECORDS SUMMARY | 2024-01-28 08:10 | XMS_ITS | Referral Summary ---
Author Organization [facility] Address [address] [place] [address] Care Team Providers Care Bottle Packing Machine Cleaner Name Role Phone Clem Olvera MD Primary Care Provider [phone] Allergies No known active allergies Medications Medication [...] Advance Directives For more information, please contact: [phone] * Full Code (Latest Code Status on File) Date Activated Date Inactivated Comments 02/27/2016 8:49 02/28/2016 15:40 Question Answer Comments Reason for decision includes: Full code consistent with overall plan of care Who participated in the discussion? Not Discusse d Care Teams Bottle Packing Machine Cleaner Relationship Specialty Start Date End Date Clem Olvera MD [address] [place] [id number] PCP - General 12/18/15
--- OUTSIDE RECORDS SUMMARY | 2024-01-28 08:10 | XMS_ITS | Encounter Summary ---
Author Organization [facility] Address [address] [place] [address] Care Team Providers Care Mold Stamper Name Role Phone Unknown, Provider Primary Care Provider [phone] Clem Olvera MD Primary Care Provider [phone] Encounter Details Date Type Department Care Team (Late st Contact Info) Description 11/29/2015 Pre-Procedure Orders Encounter [facility] [address] [place], [place] [id number] Navdeep Hurd MD [address] [place] [address] [phone] Social History Tobacco Use Types [...] Patient: Nabil Streeter. Attending: Dr. Moran Scrrajinder Pyrometallurgical Engineer: Dr. Fantasma Dhillon History/indication: The patient is [...] Patient: Nabil Streeter Attending: Dr. Dean Bailey Pyrometallurgical Engineer: Dr. Fantasma Dhillon History/indication: The patient is [...] on filedocumented in this encounter Care Teams Mold Stamper Relationship Specialty Start Date End Date Unknown, Provider, PCP - General 12/06/12 12/17/15 Clem Olvera MD [address] [place] [id number] PCP - General 12/18/15 documented as of this encounter
--- OUTSIDE RECORDS SUMMARY | 2024-01-28 08:10 | XMS_ITS | Encounter Summary ---
Author Organization [facility] Address [address] [place] [address] Care Team Providers Care Ribbon Lap Machine Tender Name Role Phone Clem Olvera MD Primary Care Provider [phone] Reason for Referral * Cardiology (3 - 10 Business Days) - Closed Specialty Diagnoses / Procedures [facility]erred To Contact Diagnoses ICD (implantable cardioverter-defibrillator) battery depletion Pacemaker lead failure, initial encounter 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 Procedures IMPLANTABLE CARDIAC DEFIBRILLATOR PROCEDURE Navdeep Hurd MD [address] [place], [place] [address] [address] [place] [address] Referral ID Status Reason Start Date Expiration Date Visits Re quested Visits Authorized [id number] Closed 02/13/2016 1 1 Encounter Details Date Type Department Care Team (Latest Contact Info) Description 02/13/2016 Pre-Procedure Orders Encounter [facility] CARDIOLOGY [address], [place] [address] Navdeep Hurd MD [address] [facility] [address] [place] [address] ICD (implantable cardioverter-defibril lator) battery [...] EDT Narrative 02/27/2016 15:17 EDT *Cardiology* [address] [place] [address] Lead Revision (Report amended ) Patient: Nabil Iglesias ?Study Date: ?02/27/2016 ? Accession #: ? [id number] : ? 1940 Referring: Clem Olvera Attending: [...] 0.35 glide wire a Nick MENDOZAW 6F ([facility]) 6 mm-40 mm balloon dilation [...] Venograms were performed in the MOORE and VINCENTIAN projections and a suitable mid-lateral LV branch [...] fascia. The leads were connected to a DIRECTOR OF MARKETING ANALYTICS-D device. Device and Lead detail in table [...] Implanted device: Medtronic - Viva Quad XT DIRECTOR OF MARKETING ANALYTICS-D DF4 - Serial number: [id number] Explanted device: Medtronic - Viva XT DIRECTOR OF MARKETING ANALYTICS-D DF4 - Serial number: [id number]. LEAD PARAMETERS + + + + + [...] + + + + + Serial number [id number] ? [id number] ?? [id number] ?? [id number] ? + + + + [...] Gulshan Drummond MD - 05/12/2016 *Cardiology* [address] [place] [address] Lead Revision (Report amended ) Patient: Nabil [...] therefore over an 0.35 glide wire [facility] ([facility]) 6 mm-40 mm balloon dilation [...] Venograms were performed in the MOORE and VINCENTIAN projections and a suitable mid-lateral LV branch [...] fascia. The leads were connected to a DIRECTOR OF MARKETING ANALYTICS-D device. Device and Lead detail in table [...] Implanted device: Medtronic - Viva Quad XT DIRECTOR OF MARKETING ANALYTICS-D DF4 - Serial number: [id number] Explanted device: Medtronic - Viva XT DIRECTOR OF MARKETING ANALYTICS-D DF4 - Serial number: [id number]. LEAD PARAMETERS + + + + + + Lead # 1 2 3 4 + + + + + + Chamber RA RV LV LV + + + + + + Date 07/19/2002 07/18/2013 02/27/2016 07/18/2013 implanted + + + + + + Model St. Esa Medtronic Medtronic Enpath information [id number] Attain Epicardial Performa 4298 + + + + + + Serial number [id number] + + + + + + [...] situ documented in this encounter Care Teams Ribbon Lap Machine Tender Relationship Specialty Start Date End Date Clem Olvera MD [address] [place] [address] PCP - General 12/18/15 documented as of this encounter
--- OUTSIDE RECORDS SUMMARY | 2024-01-28 08:10 | XMS_ITS | Encounter Summary ---
Author Organization [facility] Address [address] [place] [address] Care Team Providers Care Recruiting Assistant Name Role Phone Clem Olvera MD Primary Care Provider [phone] Reason for Visit * Reason Onset Date Comments Appointment Related 10/23/2016 Check for fo llow up of pacer Encounter Details Date Type Department Care Team ([facility] Contact Info) Description 10/23/2016 Telephone [facility] Cardiology - [address] [place] [address] Pacemaker, Pace Appointment Related (Check [...] are being followed by Dr. Hurd at [facility]. documented in this encounter Plan of Treatment Not on file documented as of this encounter Visit Diagnoses Not on filedocumented in this encounter Care Teams Recruiting Assistant Relationship Specialty Start Date End Date Clem Olvera MD [address] [place] [address] PCP - General 12/18/15 documented as of this encounter
--- OUTSIDE RECORDS SUMMARY | 2024-01-28 08:11 | XMS_ITS | Encounter Summary ---
Author Organization [facility] [place] [address] Care Team Providers Care Railway Patrol Officer Name Role Phone Marques Martinez MD Primary Care Provider Encounter Details Date Type Department Care Team (Late st Contact Info) Description 09/11/2010 Orders [place] [phone] Jairon Fenton MD [facility] [place] [address] Fracture of patella, left, closed (Primary Dx) [...] AM EDT Hospital Encounter [place] [address] Arrived documented as of this encounter Visit Diagnoses Diagnosis Fracture of patella, left, closed- Primary Closed fracture of patella documented in this encounter Care Teams Railway Patrol Officer Relationship Specialty Start Date End Date Marques Martinez MD [address] [place] [address] PCP - General 04/01/10 04/08/11 documented as of this encounter
--- OUTSIDE RECORDS SUMMARY | 2024-01-28 08:11 | XMS_ITS | Encounter Summary ---
Author Organization [facility] [place] [address] Care Team Providers Care Charrer Name Role Phone Donny Cooper MD Primary Care Provider [phone] Encounter Details Date Type Department Care Team (Latest Contact Info) Description 12/18/2020 11:57 AM EDT - 12/18/2020 11:59 PM EDT Hospital Encounter Non-Invasive [place] [address] Maged Arguelles MD [facility] [place] [address] Cardiomyopathy, primary Discharge Disposition: Home Social History [...] Encounter Non-Invasive [place] [address] Arrived documented as of this encounter Procedures Procedure Name Priority Date/Time Associated Diagnosis Comments ICD INTERROGATION 3 MONTH Routine 12/18/2020 12:00 PM EDT Cardiomyopathy, primary documented in this encounter Results * ICD INTERROGATION 3 MONTH (12/18/2020 12:00 PM EDT) Anatomical Region Laterality Modality Other Narrative 12/23/2020 11:08 PM EDT MDT MACHINE CEMENTER-D remote reviewed. Normal device function. Inadequate MACHINE CEMENTER at 80%. Maged rAguelles MD [facility] Cardiac Electrophysiology 12/23/2020 11:06 PM Maged Arguelles MD IMPLANTABLE CARDIAC DEVICE documented in this encounter Visit Diagnoses Diagnosis Cardiomyopathy, primary Other primary cardiomyopathies documented in this encounter Care Teams Charrer Relationship Specialty Start Date End Date Donny Cooper MD [address] [facility] [address] [place] [address] PCP - General Family Medicine 02/25/19 documented as of this encounter
--- OUTSIDE RECORDS SUMMARY | 2024-01-28 08:11 | XMS_ITS | Encounter Summary ---
Author Organization [facility] [place] [address] Care Team Providers Care Flooring Salesperson Name Role Phone Marques Martinez MD Primary Care Provider [phone] Encounter Details Date Type Department Care Team (Late st Contact Info) Description 10/09/2010 11:35 AM EDT - 10/09/2010 11:59 PM EDT Hospital Encounter XRay at [address] [place] [phone] Social History Tobacco Use Types Packs/Day Years [...] AM EDT Hospital Encounter Non-Invasive Cardiology [place] [address] Arrived documented as of this encounter Visit Diagnoses Not on filedocumented in this encounter Care Teams Flooring Salesperson Relationship Specialty Start Date End Date Marques Martinez MD [address] [place] [address] PCP - General 04/01/10 04/08/11 documented as of this encounter
--- OUTSIDE RECORDS SUMMARY | 2024-01-28 08:11 | XMS_ITS | Encounter Summary ---
Author Organization [facility] [place] [address] Care Team Providers Care Financial Accounting Manager Name Role Phone Donny Cooper MD Primary Care Provider [phone] Encounter Details Date Type Department Care Team (Late st Contact Info) Description 07/26/2019 Notes Only Cardiology at [address] [address] Maged Arguelles MD [facility] [place] [address] Social History Tobacco Use Types Packs/Day Years [...] his Medtronic biventricular ICD is reviewed. Suboptimal CELLOPHANE WORKER at 84%. Normal device function. Awaiting Holter to assess PVC burden. Maged Arguelles MD [facility] Cardiac Electrophysiology 07/26/2019 9:04 AM documented in this encounter Plan of Treatment Upcoming Encounters Date Type Department Care Team (Late st Contact Info) Description 02/02/2024 10:00 AM EDT Hospital Encounter Non-Invasive [place] [address] Arrived documented as of this encounter Visit Diagnoses Not on filedocumented in this encounter Care Teams Financial Accounting Manager Relationship Specialty Start Date End Date Donny Cooper MD [address] [place] [address] PCP - General Family Medicine 02/25/19 documented as of this encounter
--- OUTSIDE RECORDS SUMMARY | 2024-01-28 08:11 | XMS_ITS | Encounter Summary ---
Author Organization [facility] [place] [address] Care Team Providers Care Nut Picker Name Role Phone Donny Cooper MD Primary Care Provider [phone] Encounter Details Date Type Department Care Team (Latest Contact Info) Description 10/03/2022 10:00 AM EDT Office Visit Cardiology at [address] [address] Eleno No PA [facility] [place] [address] Cardiomyopathy, primary; Presence of cardiac resynchronization therapy defibrillator (PEARL GLUE OPERATOR-D); Diaphragmatic stimulation by cardiac pacemaker, initial [...] original note were not included. Cardiac Device PEARL GLUE OPERATOR-D Programming Evaluation Nabil Iglesias [id number] 10/03/2022 History: Mr. 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 [...] AM EDT Hospital Encounter Non-Invasive [place] [address] Arrived documented as of this encounter Procedures Procedure Name Priority Date/Time Associated Diagnosis Comments EKG 12-LEAD Routine 10/03/2022 11:00 AM EDT Cardiomyopathy, primary Presence of cardiac resynchronization therapy defibrillator (PEARL GLUE OPERATOR-D) Diaphragmatic stimulation by cardiac pacemaker, initial encounter documented in this encounter Results * EKG 12 Lead (10/03/2022 11:00 AM EDT) Ventricular rate 74 BPM MUSE SYSTEM Atrial Rate 74 BPM MUSE SYSTEM P-R Interval 154 ms MUSE SYSTEM QRS Duration 162 ms MUSE SYSTEM Q-T Interval 470 ms MUSE SYSTEM QTC Calculated (Bezet) 521 ms MUSE SYSTEM Calculated P [place] 30 degrees MUSE SYSTEM Calculated R [place] -98 degrees MUSE SYSTEM Calculated T [place] 41 degrees MUSE SYSTEM INTERPRETATION Atrial-sense d [...] cardiomyopathies Presence of cardiac resynchronization therapy defibrillator (PEARL GLUE OPERATOR-D) Diaphragmatic stimulation by cardiac pacemaker, initial encounter documented in this encounter Care Teams Nut Picker Relationship Specialty Start Date End Date Donny Coopre MD [address] [place] [address] PCP - General Family Medicine 02/25/19 documented as of this encounter
--- OUTSIDE RECORDS SUMMARY | 2024-01-28 08:11 | XMS_ITS | Encounter Summary ---
Author Organization [facility] Address [address] [place] [address] Care Team Providers Care Iron Setter Name Role Phone Unavailable Primary Care Provider Unavailabl e Encounter Details Date Type Department Care Team (Late st Contact Info) Description 05/06/2001 Results Only [facility] - [facility] conversion [address] [place] [address] Hernandez Partida MD [address] [place] [address] Social History Tobacco Use Types Packs/Day Years [...] is submitted entirely in cassette (B). ??(Naty Caal)/[facility] End of Report [facility] 05/06/2001 05/07/2001 9:2 5 EST Hernandez Partida MD PATHOLOGY ORDERABLES [facility] [address] [place] [address] documented in this encounter Visit Diagnoses Not on filedocumented in this encounter
--- OUTSIDE RECORDS SUMMARY | 2024-01-28 08:11 | XMS_ITS | Encounter Summary ---
[place] [address] Care Team Providers Care Goal Umpire Name Role Phone Donny Cooper MD Primary Care Provider [phone] Encounter Details Date Type Department Care Team (Latest Contact Info) Description 04/03/2023 10:00 AM EST - 04/03/2023 11:59 PM [facility] Hospital Encounter Non-Invasive [place] [address] Discharge Disposition: Home Social History Tobacco Use [...] Hospital Encounter Non-Invasive [place] [address] Arrived documented as of this [...] on filedocumented in this encounter Care Teams Goal Umpire Relationship Specialty Start Date End Date Donny Cooper MD [address] [place] [address] PCP - General Family Medicine 02/25/19 documented as of this encounter
--- OUTSIDE RECORDS SUMMARY | 2024-01-28 08:11 | XMS_ITS | Encounter Summary ---
[place] [address] Care Team Providers Care Fan Installer Name Role Phone Donny Cooper MD Primary Care Provider [phone] Encounter Details Date Type Department Care Team (Latest Contact Info) Description 08/06/2023 10:00 AM EDT - 08/06/2023 11:59 PM EDT Hospital Encounter Non-Invasive [place] [address] Discharge Disposition: Home Social History Tobacco Use [...] AM EDT Hospital Encounter Non-Invasive [place] [address] Arrived documented as of this encounter Visit Diagnoses Not on filedocumented in this encounter Care Teams Fan Installer Relationship Specialty Start Date End Date Donny Cooper MD [address] [place] [address] PCP - General Family Medicine 02/25/19 documented as of this encounter
--- OUTSIDE RECORDS SUMMARY | 2024-01-28 08:11 | XMS_ITS | Encounter Summary ---
[place] [address] Care Team Providers Care Sample Mounter Name Role Phone Donny Cooper MD Primary Care Provider [phone] Encounter Details Date Type Department Care Team (Latest Contact Info) Description 04/08/2022 10:00 AM EST - 04/08/2022 11:59 PM [facility] Hospital Encounter Non-Invasive [place] [address] Discharge Disposition: Home Social History Tobacco Use [...] AM EDT Hospital Encounter Non-Invasive [place] [address] Arrived documented as of [...] on filedocumented in this encounter Care Teams Sample Mounter Relationship Specialty Start Date End Date Donny Cooper MD [address] [place] [address] PCP - General Family Medicine 02/25/19 documented as of this encounter
--- OUTSIDE RECORDS SUMMARY | 2024-01-28 08:11 | XMS_ITS | Encounter Summary ---
Author Organization [facility] [place] [address] Care Team Providers Care Broadcasting Equipment Mechanic Name Role Phone Marques Martinez MD Primary Care Provider [phone] Reason for Visit * Reason Comments Follow Up Fracture PATELLA FX DOI 03/23 10 Encounter Details Date Type Department Care Team (Late st Contact Info) Description 10/09/2010 12:40 PM EDT Office [place] [address] Jairon Gustafson MD [facility] [place] [address] Jose Francisco Bee PA [facility] [place] [address] Quadriceps tendon rupture (Primary Dx) Discharge Disposition: [...] EDT Hospital Encounter Non-Invasive [place] [address] Arrived documented as of this encounter Visit Diagnoses Diagnosis Quadriceps tendon rupture- Primary Sprain and strain of other specified sites of knee and leg documented in this encounter Care Teams Broadcasting Equipment Mechanic Relationship Specialty Start Date End Date Marques Martinez MD [address] [place] [address] PCP - General 04/01/10 04/08/11 documented as of this encounter
--- OUTSIDE RECORDS SUMMARY | 2024-01-28 08:11 | XMS_ITS | Encounter Summary ---
Author Organization [facility] [place] [address] Care Team Providers Care Research Biostatistician Name Role Phone Donny Cooper MD Primary Care Provider [phone] Encounter Details Date Type Department Care Team (Latest Contact Info) Description 06/13/2020 12:35 PM EST - 06/13/2020 11:59 PM EST Hospital Encounter Non[place] [address] Alber Seals MD [facility] [place] [address] Cardiomyopathy, primary Discharge Disposition: Home Social History [...] AM EDT Hospital Encounter Non-[place] [address] Arrived documented as of this encounter Procedures Procedure Name Priority Date/Time Associated Diagnosis Comments ICD INTERROGATION 3 MONTH Routine 06/13/2020 12:36 PM EST Cardiomyopathy, primary documented in this encounter Results * ICD INTERROGATION 3 MONTH (06/13/2020 12:36 PM EST) Anatomical Region Laterality Modality Other Narrative 06/14/2020 10:38 AM EST Cardiac Device Remote Monitoring Report Summary Medtronic BioPharmX 06/14/20 Device: DAIRY QUALITY ASSURANCE OFFICER-D Model: VIVA QUAD Battery: 2.96 v, estimated longevity 3 years, 11 months Pacing percentage: 78% ventricular paced Events: The presenting rhythm is atrial paced with biventricular pacing and frequent ventricular premature contractions No significant arrhythmias Impression Normal device function; suboptimal DAIRY QUALITY ASSURANCE OFFICER pacing likely secondary to frequent PVCs. Should consider in clinic follow-up for further evaluation Follow Up As per schedule - in-clinic and remote ALBER SEALS MD Alber Seals MD IMPLANTABLE CARDIAC DEVICE documented in this encounter Visit Diagnoses Diagnosis Cardiomyopathy, primary Other primary cardiomyopathies documented in this encounter Care Teams Research Biostatistician Relationship Specialty Start Date End Date Donny Cooper MD [address] [place] [address] PCP - General Family Medicine 02/25/19 documented as of this encounter
--- OUTSIDE RECORDS SUMMARY | 2024-01-28 08:11 | XMS_ITS | Encounter Summary ---
[place] [address] Care Team Providers Care Production Inspector Name Role Phone Donny Cooper MD Primary Care Provider [phone] Encounter Details Date Type Department Care Team (Late st Contact Info) Description 01/05/2024 Telephone Cardiology at [address] [address] Kanika Shell Social History Tobacco [...] EDT Hospital Encounter Non-Invasive [place] [address] Arrived documented as of this encounter Visit Diagnoses Not on filedocumented in this encounter Care Teams Production Inspector Relationship Specialty Start Date End Date Donny Cooper MD [address] [place] [address] PCP - General Family Medicine 02/25/19 documented as of this encounter
--- OUTSIDE RECORDS SUMMARY | 2024-01-28 08:11 | XMS_ITS | Encounter Summary ---
Author Organization [facility] [place] [address] Care Team Providers Care Coke Crusher Operator Name Role Phone Marques Martinez MD Primary Care Provider [phone] Encounter Details Date Type Department Care Team (Late st Contact Info) Description 05/01/2010 3:10 PM EST Office [place] [address] Jiaron Fenton MD [facility] [place] [address] Discharge Disposition: Home Social History Tobacco Use [...] AM EDT Hospital Encounter Non-Invasive [place] [address] Arrived documented as of this encounter Visit Diagnoses Not on filedocumented in this encounter Care Teams Coke Crusher Operator Relationship Specialty Start Date End Date Marques Martinez MD [address] [place] [address] PCP - General 04/01/10 04/08/11 documented as of this encounter
--- OUTSIDE RECORDS SUMMARY | 2024-01-28 08:11 | XMS_ITS | Clinical Summary ---
Author Organization [facility] [place] [address] Care Team Providers Care Compressor Station Operator Name Role Phone Donny Cooper MD Primary Care Provider [phone] Allergies No known active allergies Medications Medication [...] Care Team Description 01/05/2024 Telephone Cardiology at [address] [address] Kanika Shell 12/28/2023 Notes Only Cardiology at [address] [address] Kanika Shell 11/04/2023 10:00 AM EDT - 11/04/2023 11:59 PM EDT Hospital Encounter Non-[place] [address] Discharge Disposition: Home from Last 3 Months [...] AM EDT Hospital Encounter Non[place] [address] Arrived Health Maintenance Due Date Last Done Comments Tdap adult (Retired) 08/19/1959 Tetanus vaccine (Retired) 08/19/1959 Zoster vaccine (1 of 2) 1990 Advance Directive 08/19/1995 Pneumoccocal Vaccine: 65+ (2 of 2 - PCV) 05/04/2009 05/04/2008 Covid-19 Vaccine (1 - season) 2024 Influenza (Flu) vaccine (1 o f 1 - Influenza standard series) 01/03/2024 02/01/2010, 03/06/2006, 02/24/2005 Medical Devices Implanted Type Area Radio Antenna Installer Device Identifier Shelf Expiration Date Model / Serial / Lot Mdt : [id number] : [id number] Implanted: (Quantity not on file) Cardiac Resynchronization Therapy - Defibrillator Chest Medtronic - [id number] / [id number] / Care Teams Compressor Station Operator Relationship Specialty Start Date End Date Donny Cooper MD [address] [place] [address] PCP - General Family Medicine 02/25/19
--- OUTSIDE RECORDS SUMMARY | 2024-01-28 08:11 | XMS_ITS | Encounter Summary ---
[facility] [place] [address] Care Team Providers Care Superintendent Sanitation Name Role Phone Marques Martinez MD Primary Care Provider [phone] Encounter Details Date Type Department Care Team (Late st Contact Info) Description 03/30/2010 [place] [address] Javier Barajas MD [facility] [place] [address] Social History Tobacco Use Types Packs/Day Years [...] AM EDT Hospital Encounter [place] [address] Arrived documented as of this encounter Procedures [...] AM EST Jairon Fenton MD CHEMISTRY ORDERABLES [facility] * (ABNORMAL) CREATININE, SERUM (04/01/2010 6:09 AM [...] Organization Address [facility] de Phone Number CERNER CH[facility]STOS[facility]UM * BUN (04/01/2010 6:09 AM EST) Blood Urea Nitrogen 12 10 - 20 mg/dL [facility]ILL[facility] Blood specimen (specimen) 04/01/2010 6:09 AM EST 04/01/2010 6:09 AM EST Jairon Fenton MD CHEMISTRY ORDERABLES Performing Organization Address [facility] de Phone Number CERNER [...] AM EST 04/01/2010 6:06 AM EST Jairon Fetnon MD HEMATOLOGY ORDERABLE S CERNER MILLENNIUM * [...] Organization Address [facility] de Phone Number CERNER [...] Organization Address [facility] Phone Number CERIVIS MILLENNIUM * [...] Organization Address [facility] Co de Phone Number CERIVIS MILLENNIUM * CREATININE, SERUM (03/30/2010 6:05 PM EST) Creatinine 0.87 0.80 - 1.50 mg/dL [facility] Est Glomerular Filtration Rate >60 >=60 [facility] Comment: The National Kidney Disease [...] PM EST Jiaron Fenton MD CHEMISTRY ORDERABLES DEJA SEGOVIA * BUN (03/30/2010 6:05 PM EST) Blood Urea Nitrogen 18 10 - 20 mg/dL [facility] Blood specimen (specimen) 03/30/2010 6:05 PM EST 03/30/2010 6:13 PM EST Jairon Fenton MD CHEMISTRY ORDERABLES Performing Organization Address [facility] de Phone Number DEJA SEGOVIA * APTT (03/30/2010 6:05 PM EST) Partial Thromboplastin Time 26 25 - 37 sec [facility] Comment: Recommended therapeutic PTT range for full dose unfractionated heparin is 80-114 seconds. Blood specimen (specimen) 03/30/2010 6:05 PM EST 03/30/2010 6:14 PM EST Jairon Fenton MD HEMATOLOGY ORDERABLE S Performing Organization Address [facility] Phone Number DEJA SEGOVIA * PROTIME-INR (03/30/2010 6:05 PM EST) Prothrombin Time 14.2 12.3 - 14.7 sec [facility] Comment: [facility] Transfusion Committee Guidelines: INR less than 2.0, PTT less than OR equal to 43.5 seconds, or Fibrinogen greater than or equal to 100 mg/dl indicate adequate procoagulant activity for hemostasis in patients without underlying bleeding disorders. International Normalization Ratio 1.1 0.9 - 1.1 [facility] Blood specimen (specimen) 03/30/2010 6:05 PM EST 03/30/2010 6:14 PM EST Jairon Fenton MD HEMATOLOGY ORDERABLE S Performing Organization Address [facility] de Phone Number DEJA [...] Standard Deviation 44.2 35.0 - 46.0 fL [facility] RDW coefficient of variation 13.1 10.9 - 14.4 % [facility] Mean Platelet Volume 10.6 9.0 - 12.0 fL [facility] Blood specimen (specimen) 03/30/2010 6:05 PM EST 03/30/2010 6:13 PM EST Jairon Fenton MD HEMATOLOGY ORDERABLE S Performing Organization Address [facility] Co de Phone Number [facility] * REFLEX LAB-ANTIBODY SCREEN (03/30/2010 3:17 PM EST) [facility] Ab Screen Interp Negative [facility] Expires at [id number] on: [id number] [facility] Blood specimen (specimen) 03/30/2010 3:17 PM EST 03/30/2010 3:17 PM EST Javier Barajas MD BLOOD BANK LAB ORDER PRECIOUS Performing Organization Address [facility] Co de Phone Number [facility] * REFLEX LAB-ABO/RH (03/30/2010 3:17 PM EST) [facility] ABORH Type A Pos [facility] Blood specimen (specimen) 03/30/2010 3:17 PM EST 03/30/2010 3:17 PM EST Javier Barajas MD BLOOD BANK LAB ORDER PRECIOUS Performing Organization Address [facility] Co de Phone Number [facility] * ELECTROLYTE PANEL (03/30/2010 2:50 PM EST) [facility] Sodium 135 135 - 145 mmol/L [facility] Potassium 4.3 3.5 - 5.0 mmol/L [facility] Comment: Please note: ??Patients with [...] Organization Address [facility] Phone Number [facility] * BUN (03/30/2010 2:50 PM EST) Blood Urea Nitrogen 18 10 - 20 mg/dL [facility] Blood specimen (specimen) 03/30/2010 2:50 PM EST 03/30/2010 3:05 PM EST Javier Barajas MD CHEMISTRY ORDERABLES Performing Organization Address [facility] Phone Number [facility] * GLUCOSE, RANDOM (03/30/2010 2:50 PM EST) Glucose 95 <=199 mg/dL [facility] Comment:Diabetes: >=200 mg/d L plus symptoms Blood specimen (specimen) 03/30/2010 2:50 PM EST 03/30/2010 3:05 PM EST Javier Barajas MD CHEMISTRY ORDERABLES Performing Organization Address [facility] Phone Number [facility] * APTT (03/30/2010 2:50 PM EST) Partial Thromboplastin Time 25 25 - 37 sec [facility] Comment: Recommended therapeutic PTT range for full dose unfractionated heparin is 80-114 seconds. Blood specimen (specimen) 03/30/2010 2:50 PM EST 03/30/2010 3:06 PM EST Javier Barajas MD HEMATOLOGY ORDERABLE S Performing Organization Address [facility] Phone Number [facility] * PROTIME-INR (03/30/2010 2:50 PM EST) Prothrombin Time 14.1 12.3 - 14.7 sec [facility] Comment: [facility] Transfusion Committee Guidelines: INR less than 2.0, [...] on filedocumented in this encounter Care Teams Superintendent Sanitation Relationship Specialty Start Date End Date Marques Martinez MD [address] [place] [address] PCP - General 04/01/10 04/08/11 documented as of this encounter
--- OUTSIDE RECORDS SUMMARY | 2024-01-28 08:11 | XMS_ITS | Encounter Summary ---
[place] [address] Care Team Providers Care Rn Navigator Name Role Phone Donny Cooper MD Primary Care Provider [phone] Encounter Details Date Type Department Care Team (Late st Contact Info) Description 03/17/2019 Telephone Cardiology at [address] [address] Sheri Quinn LNA Social History [...] 11:46 AM EST Medication list reviewed with [facility] list. Please review with patient at next clinic visit. documented in this encounter Plan of Treatment Upcoming Encounters Date Type Department Care Team (Late st Contact Info) Description 02/02/2024 10:00 AM EDT Hospital Encounter [place] [address] Arrived documented as of this encounter Visit Diagnoses Not on filedocumented in this encounter Care Teams Rn Navigator Relationship Specialty Start Date End Date Donny Cooper MD [address] [place] [address] PCP - General Family Medicine 02/25/19 documented as of this encounter
--- OUTSIDE RECORDS SUMMARY | 2024-01-28 08:11 | XMS_ITS | Encounter Summary ---
[place] [address] Care Team Providers Care User Acceptance Tester Name Role Phone Donny Cooper MD Primary Care Provider [phone] Encounter Details Date Type Department Care Team (Late st Contact Info) Description 12/28/2023 Notes Only Cardiology at [address] [phone] Kanika Shell Social History Tobacco Use Types [...] AM EDT Hospital Encounter Non-[place] [address] Arrived documented as of this encounter Visit Diagnoses Not on filedocumented in this encounter Care Teams User Acceptance Tester Relationship Specialty Start Date End Date Donny Cooper MD [address] [facility] [place] [address] PCP - General Family Medicine 02/25/19 documented as of this encounter
--- OUTSIDE RECORDS SUMMARY | 2024-01-28 08:11 | XMS_ITS | Encounter Summary ---
[place] [address] Care Team Providers Care Glove Turner Name Role Phone Donny Cooper MD Primary Care Provider [phone] Encounter Details Date Type Department Care Team (Latest Contact Info) Description 07/07/2022 10:00 AM EST - 07/07/2022 11:59 PM EST Hospital Encounter Non-Invasive [place] [address] Discharge Disposition: Home Social History Tobacco Use [...] on filedocumented in this encounter Care Teams Glove Turner Relationship Specialty Start Date End Date Donny Cooper MD [address] [place] [address] PCP - General Family Medicine 02/25/19 documented as of this encounter
--- OUTSIDE RECORDS SUMMARY | 2024-01-28 08:11 | XMS_ITS | Encounter Summary ---
[place] [address] Care Team Providers Care Power Electronics Engineer Name Role Phone Donny Cooper MD Primary Care Provider [phone] Encounter Details Date Type Department Care Team (Late st Contact Info) Description 06/14/2020 Telephone Cardiology at [address] [phone] Nhung Briggs Social History Tobacco Use Types [...] He would like to be seen at [facility]. Email sent to Brittaney Hernandez at [facility] asking her to reach out to pt to set up the appt with either Dr. Arguelles or LANG Albert. Nhung Allen Electrophysiology Scheduling [id number] option 2 documented in this encounter Plan of Treatment Upcoming Encounters Date Type Department Care Team (Late st Contact Info) Description 02/02/2024 10:00 AM EDT Hospital Encounter Non-[place] [address] Arrived documented as of this encounter Visit Diagnoses Not on filedocumented in this encounter Care Teams Power Electronics Engineer Relationship Specialty Start Date End Date Donny Cooper MD [address] [place] [address] PCP - General Family Medicine 02/25/19 documented as of this encounter
--- OUTSIDE RECORDS SUMMARY | 2024-01-28 08:11 | XMS_ITS | Encounter Summary ---
Author Organization [facility] [address] Care Team Providers Care Nuclear Physics Professor Name Role Phone Clem Olvera MD Primary Care Provider [phone] Reason for Visit * Reason Comments Follow Up Fracture SP PATELLA FX DO12/12 DOI 03/30/10 Encounter Details Date Type Department Care Team (Late st Contact Info) Description 04/09/2011 1:30 PM EST Office [place] [address] Jairon Gustafson MD [facility] [place] [address] Jose Francisco Bee PA [facility] [place] [address] Patella fracture (Primary Dx) Discharge Disposition: Home [...] AM EDT Hospital Encounter Non-[place]vasive [place] [address] Arrived documented as of this encounter Visit Diagnoses Diagnosis Patella fracture- Primary Closed fracture of patella documented in this encounter Care Teams Nuclear Physics Professor Relationship Specialty Start Date End Date Clem Olvera MD [address] [place] [address] PCP - General 04/09/11 02/24/19 documented as of this encounter
--- OUTSIDE RECORDS SUMMARY | 2024-01-28 08:11 | XMS_ITS | Encounter Summary ---
[place] [address] Care Team Providers Care Manager Of Program Name Role Phone Marques Martinez MD Primary Care Provider Encounter Details Date Type Department Care Team (Late st Contact Info) Description 05/01/2010 2:40 PM EST Procedure visit [place] [address] Social History Tobacco Use Types Packs/Day Years [...] AM EDT Hospital Encounter Non-[place] [address] Arrived documented as of this encounter Visit Diagnoses Not on filedocumented in this encounter Care Teams Manager Of Program Relationship Specialty Start Date End Date Marques Martinez MD [address] [place] [address] PCP - General 04/01/10 04/08/11 documented as of this encounter
--- OUTSIDE RECORDS SUMMARY | 2024-01-28 08:11 | XMS_ITS | Encounter Summary ---
Author Organization [facility] Address [address] [place] [address] Care Team Providers Care Radiocommunications Technician Name Role Phone Unavailable Primary Care Provider Unavailabl e Encounter Details Date Type Department Care Team (Late st Contact Info) Description 12/02/2012 Results Only [facility] ([facility]) [address] [place] [address] Satinder Edwards MD [address] [place] [address] Social History Tobacco Use Types Packs/Day Years [...] ? NABIL IGLESIAS ? Accession #: ? [id number] ? : ? 1940 (Age: 72) ??M [...] MD PATHOLOGY ORDERABLE S Performing Organization Address City/State/[facility] Co de Phone Number DIVYA BERRY [address] [place] [address] documented in this encounter Visit Diagnoses Not on filedocumented in this encounter
--- OUTSIDE RECORDS SUMMARY | 2024-01-28 08:11 | XMS_ITS | Encounter Summary ---
Author Organization [facility] [place] [address] Care Team Providers Care Inspector Experimental Assembly Name Role Phone Donny Cooper MD Primary Care Provider [phone] Encounter Details Date Type Department Care Team (Latest Contact Info) Description 06/25/2021 3:23 PM EST - 06/25/2021 11:59 PM EST Hospital Encounter [place] [address] Alber Seals MD [facility] [place] [address] Cardiomyopathy, primary Discharge Disposition: Home Social History [...] AM EDT Hospital Encounter [place] [address] Arrived documented as of this encounter Procedures Procedure Name Priority Date/Time Associated Diagnosis Comments ICD INTERROGATION 3 MONTH Routine 06/25/2021 3:24 PM EST Cardiomyopathy, primary documented in this encounter Results * ICD INTERROGATION 3 MONTH (06/25/2021 3:24 PM EST) Anatomical Region Laterality Modality Other Narrative 06/25/2021 3:42 PM EST Cardiac Device Remote Monitoring Report Summary Medtronic Carelink Device: ESCALATOR INSTALLER-D Model: VIVA QUAD Battery: 2.95 v, estimated longevity 2 years 6 months Pacing percentage: 90% ESCALATOR INSTALLER paced Events: Presenting rhythm: atrial paced/biventricular paced Frequent PVC's Impression Normal device function Follow Up As per schedule - in-clinic and remote ALBER SEALS MD 06/25/21 Alber Seals MD IMPLANTABLE CARDIAC DEVICE documented in this encounter Visit Diagnoses Diagnosis Cardiomyopathy, primary Other primary cardiomyopathies documented in this encounter Care Teams Inspector Experimental Assembly Relationship Specialty Start Date End Date Donny Cooper MD [address] [place] [address] PCP - General Family Medicine 02/25/19 documented as of this encounter
--- OUTSIDE RECORDS SUMMARY | 2024-01-28 08:11 | XMS_ITS | Encounter Summary ---
[place] [address] Care Team Providers Care Shear Tender Name Role Phone Donny Cooper MD Primary Care Provider [phone] Encounter Details Date Type Department Care Team (Latest Contact Info) Description 10/05/2022 10:00 AM EDT - 10/05/2022 11:59 PM EDT Hospital Encounter [place] [address] Discharge Disposition: Home Social History Tobacco Use [...] AM EDT Hospital Encounter Non-[place] [address] Arrived documented as of this encounter Procedures [...] on filedocumented in this encounter Care Teams Shear Tender Relationship Specialty Start Date End Date Donny Cooper MD [address] [place] [address] PCP - General Family Medicine 02/25/19 documented as of this encounter
--- OUTSIDE RECORDS SUMMARY | 2024-01-28 08:11 | XMS_ITS | Encounter Summary ---
[place] [address] Care Team Providers Care Repair Service Dispatcher Name Role Phone Donny Cooper MD Primary Care Provider [phone] Encounter Details Date Type Department Care Team [...] Encounter Non-Invasive [place] [address] Arrived documented as of this encounter Visit Diagnoses Not on filedocumented in this encounter Care Teams Repair Service Dispatcher Relationship Specialty Start Date End Date Donny Cooper MD [address] [place] [address] PCP - General Family Medicine 02/25/19 documented as of this encounter
--- OUTSIDE RECORDS SUMMARY | 2024-01-28 08:11 | XMS_ITS | Encounter Summary ---
[place] [address] Care Team Providers Care Rehab Therapy Manager Name Role Phone Marques Martinez MD Primary Care Provider [phone] Encounter Details Date Type Department Care Team (Late st Contact Info) Description 06/12/2010 2:00 PM EST Procedure [place] [address] Social History Tobacco Use Types Packs/Day Years [...] AM EDT Hospital Encounter Non-Invasive [place] [address] Arrived documented as of this encounter Visit Diagnoses Not on filedocumented in this encounter Care Teams Rehab Therapy Manager Relationship Specialty Start Date End Date Marques Martinez MD [address] [place] [address] PCP - General 04/01/10 04/08/11 documented as of this encounter
--- OUTSIDE RECORDS SUMMARY | 2024-01-28 08:11 | XMS_ITS | Encounter Summary ---
Author Organization [facility] [address] Care Team Providers Care Cupola Tapper Name Role Phone Marques Martinez MD Primary Care Provider [phone] Encounter Details Date Type Department Care Team (Late st Contact Info) Description 06/12/2010 2:10 PM EST [place] [address] Jairon Fenton MD [facility] [place] [address] Discharge Disposition: Home Social History Tobacco Use [...] AM EDT Hospital Encounter Non[place] [address] Arrived documented as of this encounter Visit Diagnoses Not on filedocumented in this encounter Care Teams Cupola Tapper Relationship Specialty Start Date End Date Marques Martinez MD [address] [place] [address] PCP - General 04/01/10 04/08/11 documented as of this encounter
--- OUTSIDE RECORDS SUMMARY | 2024-01-28 08:11 | XMS_ITS | Encounter Summary ---
[place] [address] Care Team Providers Care Cloth Measurer Machine Name Role Phone Donny Cooper MD Primary Care Provider [phone] Encounter Details Date Type Department Care Team (Latest Contact Info) Description 11/04/2023 10:00 AM EDT - 11/04/2023 11:59 PM EDT Hospital Encounter Non[place] [address] Discharge Disposition: Home Social History Tobacco Use [...] AM EDT Hospital Encounter Non-[place] [address] Arrived documented as of this encounter Procedures [...] on filedocumented in this encounter Care Teams Cloth Measurer Machine Relationship Specialty Start Date End Date Donny Cooper MD [address] [place] [address] PCP - General Family Medicine 02/25/19 documented as of this encounter
--- OUTSIDE RECORDS SUMMARY | 2024-01-28 08:11 | XMS_ITS | Encounter Summary ---
[place] [address] Care Team Providers Care Manufacturing Engineer Automotive Name Role Phone Donny Cooper MD Primary Care Provider [phone] Encounter Details Date Type Department Care Team (Latest Contact Info) Description 07/02/2023 10:00 AM EST - 07/02/2023 11:59 PM EST Hospital Encounter Non[place] [address] Discharge Disposition: Home Social History Tobacco Use [...] AM EDT Hospital Encounter Non-[place] [address] Arrived documented as of this encounter Visit Diagnoses Not on filedocumented in this encounter Care Teams Manufacturing Engineer Automotive Relationship Specialty Start Date End Date Donny Cooper MD [address] [place] [address] PCP - General Family Medicine 02/25/19 documented as of this encounter
--- OUTSIDE RECORDS SUMMARY | 2024-01-28 08:11 | XMS_ITS | Encounter Summary ---
[place] [address] Care Team Providers Care Population Geneticist Name Role Phone Marques Martinez MD Primary Care Provider [phone] Encounter Details Date Type Department Care Team (Late st Contact Info) Description 10/03/2010 [place] [address] Marina Orosco, JADON Social History Tobacco Use [...] AM EDT Hospital Encounter Non-Invasive [place] [address] Arrived documented as of this encounter Visit Diagnoses Not on filedocumented in this encounter Care Teams Population Geneticist Relationship Specialty Start Date End Date Marques Martinez MD [address] [place] [address] PCP - General 04/01/10 04/08/11 documented as of this encounter
--- OUTSIDE RECORDS SUMMARY | 2024-01-28 08:11 | XMS_ITS | Encounter Summary ---
[place] [address] Care Team Providers Care Motors And Generators Inspector Name Role Phone Donny Cooper MD Primary Care Provider [phone] Encounter Details Date Type Department Care Team (Latest Contact Info) Description 01/03/2023 10:00 AM EDT - 01/03/2023 11:59 PM EDT Hospital Encounter Non[place] [address] Discharge Disposition: Home Social History Tobacco Use [...] AM EDT Hospital Encounter Non[place] [address] Arrived documented as of this encounter Procedures [...] on filedocumented in this encounter Care Teams Motors And Generators Inspector Relationship Specialty Start Date End Date Donny Cooper MD [address] [place] [address] PCP - General Family Medicine 02/25/19 documented as of this encounter
[2024-01-28 08:20] VITALS: BP 117/57; PULSE 76
== END 2024-02-01 23:59 | disposition home or self-care (01) ==
LOC: CR 08:09
PROVIDERS: PCP Family Medicine; Visit Provider Internal Medicine Cardiovascular Disease
DX: R69 Illness, unspecified (principal)

== ENCOUNTER 2024-03-03 07:56 | Outpatient (RCR) | payer SELFPAY ==
[2024-02-02 00:06] VITALS: BP 121/62; PULSE 71
--- OUTSIDE RECORDS SUMMARY | 2024-02-02 07:52 | XMS_ITS | Referral Summary ---
Author Organization [facility] Address [address] [place] [address] Care Team Providers Care Oracle Bpm Consultant Name Role Phone Clem Olvera MD Primary Care Provider [phone] Allergies No known active allergies Medications Medication [...] Advance Directives For more information, please contact: [phone] * Full Code (Latest Code Status on File) Date Activated Date Inactivated Comments 02/27/2016 8:49 02/28/2016 15:40 Question Answer Comments Reason for decision includes: Full code consistent with overall plan of care Who participated in the discussion? Not Discusse d Care Teams Oracle Bpm Consultant Relationship Specialty Start Date End Date Clem Olvera MD [address] [place] [id number] PCP - General 12/18/15
--- OUTSIDE RECORDS SUMMARY | 2024-02-02 07:52 | XMS_ITS | Encounter Summary ---
Author Organization [facility] Address [address] [place] [address] Care Team Providers Care Adult Secondary Education Instructor Name Role Phone Clem Olvera MD Primary Care Provider [phone] Reason for Visit * Reason Onset Date Comments Other 04/04/2019 [place] [facility] [place] Encounter Details Date Type Department Care Team (Late st Contact Info) Description 04/04/2019 Telephone [facility] Cardiology Clinic [address] [place] [address] Giselle Hill, FASHION CONSULTANT SALES Other (Transfer request for Pac[place] [facility] [place] Social History Tobacco Use [...] 04/04/2019 1503 EST I went into the [employer] Website and released pt [place] [facility] [place] as requested. * Telephone Encounter - Suze Reynoso - 04/04/2019 1342 EST PT WILL BE HAVING HIS PACER CARE [place]ONE [place] [facility] [place], PLEASE RELEASE HIS REMOTE MONITORING SO THAT THEY CAN PICK IT UP documented in this encounter Plan of Treatment Not on file documented as of this encounter Visit Diagnoses Not on filedocumented in this encounter Care Teams Adult Secondary Education Instructor Relationship Specialty Start Date End Date Clem Olvera MD [address] [place] [address] PCP - General 12/18/15 documented as of this encounter
--- OUTSIDE RECORDS SUMMARY | 2024-02-02 07:52 | XMS_ITS | Encounter Summary ---
Author Organization [facility] Address [address] [place] [address] Care Team Providers Care Custodian Supervisor Name Role Phone Clem Olvera MD Primary Care Provider Encounter Details Date Type Department Care Team (Late st Contact Info) Description 03/16/2019 Abstract [facility] [place] [address] [place] [address] Ronal Avelar, JADON AV block, 2nd degree [...] Laterality Modality Device Narrative 03/24/2019 10:30 EST [facility] [place] Device Visit Trimmer Hand: [employer] Device Type: NURSE CARE MANAGER-D Service: Remote ? 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
--- OUTSIDE RECORDS SUMMARY | 2024-02-02 07:52 | XMS_ITS | Clinical Summary ---
Author Organization [facility] Address [address] [place] [address] Care Team Providers Care Welding Tester Name Role Phone Clem Olvera MD Primary Care Provider [phone] Allergies No known active allergies Medications Medication [...] PACEMAKER INSERTION 05/04/2002 - 05/03/20032013 second pacemaker [facility] Medical History Medical History Date [...] Advance Directives For more information, please contact: [phone] * Full Code (Latest Code Status on File) Date Activated Date Inactivated Comments 02/27/2016 8:49 02/28/2016 15:40 Question Answer Comments Reason for decision includes: Full code consistent with overall plan of care Who participated in the discussion? Not Discusse d Care Teams Welding Tester Relationship Specialty Start Date End Date Clem Olvera MD [address] [place] [address] PCP - General 12/18/15
--- OUTSIDE RECORDS SUMMARY | 2024-02-02 07:52 | XMS_ITS | Encounter Summary ---
Author Organization [facility] Address [address] [place] [address] Care Team Providers Care Vp Genetic Name Role Phone Clem Olvera MD Primary Care Provider [phone] Reason for Visit * Reason Onset Date Comments Appointment Related 10/23/2016 Check for fo llow up of pacer Encounter Details Date Type Department Care Team ([facility] Contact Info) Description 10/23/2016 Telephone [facility] Cardiology - [address] [place] [address] Pacemaker, Pace Appointment Related (Check [...] Nabil had his pacemaker checked in [place] where they are for the winter. They have some back and are being followed by Dr. Hurd at [facility]. documented in this encounter Plan of Treatment Not on file documented as of this encounter Visit Diagnoses Not on filedocumented in this encounter Care Teams Vp Genetic Relationship Specialty Start Date End Date Clem Olvera MD [address] [place] [address] PCP - General 12/18/15 documented as of this encounter
--- OUTSIDE RECORDS SUMMARY | 2024-02-02 07:53 | XMS_ITS | Encounter Summary ---
Author Organization [facility] [place] [address] Care Team Providers Care Telecommunications Specialist Name Role Phone Donny Cooper MD Primary Care Provider [phone] Encounter Details Date Type Department Care Team (Latest Contact Info) Description 06/25/2021 3:23 PM EST - 06/25/2021 11:59 PM EST Hospital Encounter Non-[place]vasive [place] [address] Alber Seals MD [facility] [place] [address] Cardiomyopathy, primary Discharge Disposition: Home Social History [...] EDT Hospital Encounter Non-[place]vasive [place] [address] Arrived 05/02/2024 10:00 AM EST Hospital Encounter Non-Invasive [place] [address] Arrived documented as of this encounter Procedures Procedure Name Priority Date/Time Associated Diagnosis Comments ICD INTERROGATION 3 MONTH Routine 06/25/2021 3:24 PM EST Cardiomyopathy, primary documented in this encounter Results * ICD INTERROGATION 3 MONTH (06/25/2021 3:24 PM EST) Anatomical Region Laterality Modality Other Narrative 06/25/2021 3:42 PM EST Cardiac Device Remote Monitoring Report Summary [employer] Carelink Device: RUG DRYING MACHINE OPERATOR-D Model: VIVA QUAD Battery: 2.95 v, estimated longevity 2 years 6 months Pacing percentage: 90% RUG DRYING MACHINE OPERATOR paced Events: Presenting rhythm: atrial paced/biventricular paced Frequent PVC's Impression Normal device function Follow Up As per schedule - in-clinic and remote ALBER SEALS MD 06/25/21 Alber Seals MD IMPLANTABLE CARDIAC DEVICE documented in this encounter Visit Diagnoses Diagnosis Cardiomyopathy, primary Other primary cardiomyopathies documented in this encounter Care Teams Telecommunications Specialist Relationship Specialty Start Date End Date Donny Cooper MD [address] [place] [address] PCP - General Family Medicine 02/25/19 documented as of this encounter
--- OUTSIDE RECORDS SUMMARY | 2024-02-02 07:53 | XMS_ITS | Encounter Summary ---
[place] [address] Care Team Providers Care Simulation Specialist Name Role Phone Marques Martinez MD Primary Care Provider [phone] Encounter Details Date Type Department Care Team (Late st Contact Info) Description 10/03/2010 [place] [address] Marina Orosco RN Social History Tobacco Use Types Packs/Day Years [...] AM EDT Hospital Encounter Non[place] [address] Arrived 05/02/2024 10:00 AM EST Hospital Encounter Non-[place] [address] Arrived documented as of this encounter Visit Diagnoses Not on filedocumented in this encounter Care Teams Simulation Specialist Relationship Specialty Start Date End Date Marques Martinez MD [address] [place] [address] PCP - General 04/01/10 04/08/11 documented as of this encounter
--- OUTSIDE RECORDS SUMMARY | 2024-02-02 07:53 | XMS_ITS | Encounter Summary ---
Author Organization [facility] Address [address] [place] [address] Care Team Providers Care Professional Benefits Sales Consultant Name Role Phone Unknown, Provider Primary Care Provider [phone] Clem Olvera MD Primary Care Provider [phone] Encounter Details Date Type Department Care Team (Late st Contact Info) Description 11/29/2015 Pre-Procedure Orders Encounter [facility] [address], [place] [id number] Navdeep Hurd MD [address] [place] [address] [address] Social History Tobacco Use Types [...] Patient: Nabil Streeter. Attending: Dr. Moran Scrrajinder Party Coordinator: Dr. Fantasma Dhillon History/indication: The patient is [...] Patient: Nabil Streeter Attending: Dr. Dean Bailey Party Coordinator: Dr. Fantasma Dhillon History/indication: The patient is [...] on filedocumented in this encounter Care Teams Professional Benefits Sales Consultant Relationship Specialty Start Date End Date Unknown, Provider, PCP - General 12/06/12 12/17/15 Clem Olvera MD [address] [place] [address] PCP - General 12/18/15 documented as of this encounter
--- OUTSIDE RECORDS SUMMARY | 2024-02-02 07:53 | XMS_ITS | Encounter Summary ---
[place] [address] Care Team Providers Care Veterinarian Small Animal Name Role Phone Donny Cooper MD Primary Care Provider [phone] Encounter Details Date Type Department Care Team (Latest Contact Info) Description 01/03/2023 10:00 AM EDT - 01/03/2023 11:59 PM EDT Hospital Encounter Non[place] [address] Discharge Disposition: Home Social History Tobacco Use [...] AM EDT Hospital Encounter [place] [address] Arrived 05/02/2024 10:00 AM EST Hospital Encounter Non[place] [address] Arrived documented as of this encounter Procedures [...] on filedocumented in this encounter Care Teams Veterinarian Small Animal Relationship Specialty Start Date End Date Donny Cooper MD [address] [place] [address] PCP - General Family Medicine 02/25/19 documented as of this encounter
--- OUTSIDE RECORDS SUMMARY | 2024-02-02 07:53 | XMS_ITS | Encounter Summary ---
Author Organization [facility] [place] [address] Care Team Providers Care Dye Worker Name Role Phone Donny Cooper MD Primary Care Provider [phone] Encounter Details Date Type Department Care Team [...] AM EDT Hospital Encounter Non-[place] [address] Arrived 05/02/2024 10:00 AM EST Hospital Encounter Non-[place] [address] Arrived documented as of this encounter Visit Diagnoses Not on filedocumented in this encounter Care Teams Dye Worker Relationship Specialty Start Date End Date Donny Cooper MD [address] [place] [address] PCP - General Family Medicine 02/25/19 documented as of this encounter
--- OUTSIDE RECORDS SUMMARY | 2024-02-02 07:53 | XMS_ITS | Encounter Summary ---
[place] [address] Care Team Providers Care Pensions Retirement Plan Specialist Name Role Phone Donny Cooper MD Primary Care Provider [phone] Encounter Details Date Type Department Care Team (Latest Contact Info) Description 04/08/2022 10:00 AM EST - 04/08/2022 11:59 PM [facility] Hospital Encounter Non-Invasive [place] [address] Discharge Disposition: Home Social History Tobacco Use [...] AM EDT Hospital Encounter Non-Invasive [place] [address] Arrived 05/02/2024 10:00 AM EST Hospital Encounter Non-Invasive [place] [address] Arrived documented as of this encounter Procedures [...] on filedocumented in this encounter Care Teams Pensions Retirement Plan Specialist Relationship Specialty Start Date End Date Donny Cooper MD [address] [place] [address] PCP - General Family Medicine 02/25/19 documented as of this encounter
--- OUTSIDE RECORDS SUMMARY | 2024-02-02 07:53 | XMS_ITS | Encounter Summary ---
[place] [address] Care Team Providers Care Window Repairer Name Role Phone Donny Cooper MD Primary Care Provider [phone] Encounter Details Date Type Department Care Team (Latest Contact Info) Description 11/04/2023 10:00 AM EDT - 11/04/2023 11:59 PM EDT Hospital Encounter [place] [address] Discharge Disposition: Home Social History Tobacco Use [...] AM EDT Hospital Encounter [place] [address] Arrived 05/02/2024 10:00 AM EST Hospital Encounter Non[place] [address] Arrived documented as of this encounter Procedures [...] on filedocumented in this encounter Care Teams Window Repairer Relationship Specialty Start Date End Date Donny Cooper MD [address] [place] [address] PCP - General Family Medicine 02/25/19 documented as of this encounter
--- OUTSIDE RECORDS SUMMARY | 2024-02-02 07:53 | XMS_ITS | Encounter Summary ---
Author Organization [facility] [place] [address] Care Team Providers Care Tab Machine Operator Name Role Phone Donny Cooper MD Primary Care Provider [phone] Encounter Details Date Type Department Care Team (Latest Contact Info) Description 12/18/2020 11:57 AM EDT - 12/18/2020 11:59 PM EDT Hospital Encounter [place] [address] Maged Arguelles MD [facility] [place] [address] Cardiomyopathy, primary Discharge Disposition: Home Social History [...] AM EDT Hospital Encounter [place] [address] Arrived 05/02/2024 10:00 AM EST Hospital Encounter [place] [address] Arrived documented as of this encounter Procedures Procedure Name Priority Date/Time Associated Diagnosis Comments ICD INTERROGATION 3 MONTH Routine 12/18/2020 12:00 PM EDT Cardiomyopathy, primary documented in this encounter Results * ICD INTERROGATION 3 MONTH (12/18/2020 12:00 PM EDT) Anatomical Region Laterality Modality Other Narrative 12/23/2020 11:08 PM EDT MDT CREDIT CARD ANALYST-D remote reviewed. Normal device function. Inadequate CREDIT CARD ANALYST at 80%. Maged Arguelles MD [facility] Cardiac Electrophysiology 12/23/2020 11:06 PM Maged Arguelles MD IMPLANTABLE CARDIAC DEVICE documented in this encounter Visit Diagnoses Diagnosis Cardiomyopathy, primary Other primary cardiomyopathies documented in this encounter Care Teams Tab Machine Operator Relationship Specialty Start Date End Date Donny Cooper MD [address] [facility] [place] [address] PCP - General Family Medicine 02/25/19 documented as of this encounter
--- OUTSIDE RECORDS SUMMARY | 2024-02-02 07:53 | XMS_ITS | Encounter Summary ---
Author [facility] [place] [address] Care Team Providers Care Tattoo Technician Name Role Phone Donny Cooper MD Primary Care Provider [phone] Encounter Details Date Type Department Care Team (Late st Contact Info) Description 01/05/2024 Telephone Cardiology at [address] [phone] Kanika Shell Social History Tobacco Use Types [...] AM EDT Hospital Encounter Non[place] [address] Arrived 05/02/2024 10:00 AM EST Hospital Encounter Non-Invasive Card[place] [address] Arrived documented as of this encounter Visit Diagnoses Not on filedocumented in this encounter Care Teams Tattoo Technician Relationship Specialty Start Date End Date Donny Cooper MD [address] [place] [address] PCP - General Family Medicine 02/25/19 documented as of this encounter
--- OUTSIDE RECORDS SUMMARY | 2024-02-02 07:53 | XMS_ITS | Encounter Summary ---
Author Organization [facility] [place] [address] Care Team Providers Care B2B Account Executive Name Role Phone Marques Martinez MD Primary Care Provider [phone] Reason for Visit * Reason Comments Follow Up Fracture PATELLA FX DOI 03/23 10 Encounter Details Date Type Department Care Team (Late st Contact Info) Description 10/09/2010 12:40 PM EDT Office [place] [address] Jairon Gustafson MD [facility] [place] [address] Jose Francisco Bee PA [facility] [place] [address] Quadriceps tendon rupture (Primary Dx) Discharge Disposition: [...] AM EDT Hospital Encounter Non-[place]vasive [place] [address] Arrived 05/02/2024 10:00 AM EST Hospital Encounter Non-[place]vasive [place] [address] Arrived documented as of this encounter Visit Diagnoses Diagnosis Quadriceps tendon rupture- Primary Sprain and strain of other specified sites of knee and leg documented in this encounter Care Teams B2B Account Executive Relationship Specialty Start Date End Date Marques Martinez MD [address] [place] [address] PCP - General 04/01/10 04/08/11 documented as of this encounter
--- OUTSIDE RECORDS SUMMARY | 2024-02-02 07:53 | XMS_ITS | Encounter Summary ---
Author [facility] [place] [address] Care Team Providers Care Grief Counselor Name Role Phone Donny Cooper MD Primary Care Provider [phone] Encounter Details Date Type Department Care Team (Latest Contact Info) Description 10/03/2022 10:00 AM EDT Office Visit Cardiology at [address] [address] Eleno No PA [facility] [place] [address] Cardiomyopathy, primary; Presence of cardiac resynchronization therapy defibrillator (PLANT OPERATIONS VICE PRESIDENT-D); Diaphragmatic stimulation by cardiac pacemaker, initial encounter [...] original note were not included. Cardiac Device PLANT OPERATIONS VICE PRESIDENT-D Programming Evaluation Nabil Iglesias [id number] 10/03/2022 History: Mr. 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 [...] AM EDT Hospital Encounter Non-[place] [address] Arrived 05/02/2024 10:00 AM EST Hospital Encounter Non-[place]vasive [place] [address] Arrived documented as of this encounter Procedures Procedure Name Priority Date/Time Associated Diagnosis Comments EKG 12-LEAD Routine 10/03/2022 11:00 AM EDT Cardiomyopathy, primary Presence of cardiac resynchronization therapy defibrillator (PLANT OPERATIONS VICE PRESIDENT-D) Diaphragmatic stimulation by cardiac pacemaker, initial encounter documented in this encounter Results * EKG 12 Lead (10/03/2022 11:00 AM EDT) Ventricular rate 74 BPM MUSE SYSTEM Atrial Rate 74 BPM MUSE SYSTEM P-R Interval 154 ms MUSE SYSTEM QRS Duration 162 ms MUSE SYSTEM Q-T Interval 470 ms MUSE SYSTEM QTC Calculated (Bezet) 521 ms MUSE SYSTEM Calculated P [place] 30 degrees MUSE SYSTEM Calculated R [place] -98 degrees MUSE SYSTEM Calculated T [place] 41 degrees MUSE SYSTEM INTERPRETATION Atrial-sense d [...] cardiomyopathies Presence of cardiac resynchronization therapy defibrillator (PLANT OPERATIONS VICE PRESIDENT-D) Diaphragmatic stimulation by cardiac pacemaker, initial encounter documented in this encounter Care Teams Grief Counselor Relationship Specialty Start Date End Date Donny Cooper MD [address] [place] [address] PCP - General Family Medicine 02/25/19 documented as of this encounter
--- OUTSIDE RECORDS SUMMARY | 2024-02-02 07:53 | XMS_ITS | Encounter Summary ---
Author Organization [facility] Address [address] [place] [address] Care Team Providers Care Purchase Request Editor Name Role Phone Clem Olvera MD Primary Care Provider Encounter Details Date Type Department Care Team (Latest Contact Info) Description 12/20/2015 10:52 EDT - 12/20/2015 23:[address] [facility] Cardiovascular Unit [address] [place] [address] Navdeep Hurd MD [address] [place] [address] [address] Discharge Disposition: Home or Self [...] no need to beNPO or have a school bus driver. However, his will be accompanying him. They [place] driving someone to the airport [place] 1000 and then will come here and check-in around 1145. He agrees to have a shower. documented in this encounter Procedure Notes * Fantasma Dhillon MD - 12/20/2015 1356 EDT IR Brief Procedure Note Attending: Leo Meteorological Technician: Alejo Pre-op Dx: Arrhythmia, need for pacemaker [...] 12/19 documented in this encounter Care Teams Purchase Request Editor Relationship Specialty Start Date End Date Clem Olvera MD [address] [place] [address] PCP - General 12/18/15 documented as of this encounter
--- OUTSIDE RECORDS SUMMARY | 2024-02-02 07:53 | XMS_ITS | Encounter Summary ---
[place] [address] Care Team Providers Care Bilingual Interpreter Name Role Phone Donny Cooper MD Primary Care Provider [phone] Encounter Details Date Type Department Care Team (Late st Contact Info) Description 06/14/2020 Telephone Cardiology at [address] [phone] Nhung Briggs Social History Tobacco Use Types [...] He would like to be seen at [facility]. Email sent to Brittaney Hernandez at [facility] asking her to reach out to pt to set up the appt with either Dr. Arguelles or LANG Albert. Nhung Allen Electrophysiology Scheduling [id number] option 2 documented in this encounter Plan of Treatment Upcoming Encounters Date Type Department Care Team (Late st Contact Info) Description 02/02/2024 10:00 AM EDT Hospital Encounter Non-Invasive [place] [address] Arrived 05/02/2024 10:00 AM EST Hospital Encounter Non-Invasive [place] [address] Arrived documented as of this encounter Visit Diagnoses Not on filedocumented in this encounter Care Teams Bilingual Interpreter Relationship Specialty Start Date End Date Donny Cooper MD [address] [place] [address] PCP - General Family Medicine 02/25/19 documented as of this encounter
--- OUTSIDE RECORDS SUMMARY | 2024-02-02 07:53 | XMS_ITS | Encounter Summary ---
[place] [address] Care Team Providers Care Pediatric Physical Therapist Name Role Phone Donny Cooper MD Primary Care Provider [phone] Encounter Details Date Type Department Care Team (Latest Contact Info) Description 04/03/2023 10:00 AM EST - 04/03/2023 11:59 PM [facility] Hospital Encounter Non-[place]vasive [place] [address] Discharge Disposition: Home Social History Tobacco Use [...] Hospital Encounter Non-[place]vasive [place] [address] Arrived 05/02/2024 10:00 AM EST Hospital Encounter Non-[place]vasive [place] [address] Arrived documented as of this encounter Procedures [...] on filedocumented in this encounter Care Teams Pediatric Physical Therapist Relationship Specialty Start Date End Date Donny Cooper MD [address] [place] [address] PCP - General Family Medicine 02/25/19 documented as of this encounter
--- OUTSIDE RECORDS SUMMARY | 2024-02-02 07:53 | XMS_ITS | Encounter Summary ---
[place] [address] Care Team Providers Care Tree Surgeon Name Role Phone Donny Cooper MD Primary Care Provider [phone] Encounter Details Date Type Department Care Team (Latest Contact Info) Description 10/05/2022 10:00 AM EDT - 10/05/2022 11:59 PM EDT Hospital Encounter Non-[place]vasive [place] [address] Discharge Disposition: Home Social History Tobacco Use [...] AM EDT Hospital Encounter Non-[place]vasive [place] [address] Arrived 05/02/2024 10:00 AM EST Hospital Encounter Non-Invasive [place] [address] Arrived documented as of this encounter Procedures [...] on filedocumented in this encounter Care Teams Tree Surgeon Relationship Specialty Start Date End Date Donny Cooper MD [address] [place] [address] PCP - General Family Medicine 02/25/19 documented as of this encounter
--- OUTSIDE RECORDS SUMMARY | 2024-02-02 07:53 | XMS_ITS | Encounter Summary ---
Author Organization [facility] Address [address] [place] [address] Care Team Providers Care Certified Novell Engineer Name Role Phone Unavailable Primary Care Provider Unavailabl e Encounter Details Date Type Department Care Team (Late st Contact Info) Description 05/06/2001 Results Only [facility] conversion [address] [place] [address] Hernandez Partida MD [address] [place] [id number] Social History Tobacco Use Types Packs/Day Years [...] entirely in cassette (B). ??(Naty Caal)/[facility] End of Report [facility] 05/06/2001 05/07/2001 9:2 5 EST Hernandez Partida MD PATHOLOGY ORDERABLES [facility] [address] [place] [address] documented in this encounter Visit Diagnoses Not on filedocumented in this encounter
--- OUTSIDE RECORDS SUMMARY | 2024-02-02 07:53 | XMS_ITS | Encounter Summary ---
Author Organization [facility] [place] [address] Care Team Providers Care Manager Ambulatory Name Role Phone Donny Cooper MD Primary Care Provider [phone] Encounter Details Date Type Department Care Team (Latest Contact Info) Description 06/13/2020 12:35 PM EST - 06/13/2020 11:59 PM EST Hospital Encounter [place] [address] Alber Seals MD [facility] [place] [address] Cardiomyopathy, primary Discharge Disposition: Home Social History [...] AM EDT Hospital Encounter Non-[place] [address] Arrived 05/02/2024 10:00 AM EST Hospital Encounter Non[place] [address] Arrived documented as of this encounter Procedures Procedure Name Priority Date/Time Associated Diagnosis Comments ICD INTERROGATION 3 MONTH Routine 06/13/2020 12:36 PM EST Cardiomyopathy, primary documented in this encounter Results * ICD INTERROGATION 3 MONTH (06/13/2020 12:36 PM EST) Anatomical Region Laterality Modality Other Narrative 06/14/2020 10:38 AM EST Cardiac Device Remote Monitoring Report Summary Medtronic Carelink 06/14/20 Device: NATURAL RESOURCES PROFESSOR-D Model: VIVA QUAD Battery: 2.96 v, estimated longevity 3 years, 11 months Pacing percentage: 78% ventricular paced Events: The presenting rhythm is atrial paced with biventricular pacing and frequent ventricular premature contractions No significant arrhythmias Impression Normal device function; suboptimal NATURAL RESOURCES PROFESSOR pacing likely secondary to frequent PVCs. Should consider in clinic follow-up for further evaluation Follow Up As per schedule - in-clinic and remote ALBER SEALS MD Alber Seals MD IMPLANTABLE CARDIAC DEVICE documented in this encounter Visit Diagnoses Diagnosis Cardiomyopathy, primary Other primary cardiomyopathies documented in this encounter Care Teams Manager Ambulatory Relationship Specialty Start Date End Date Donny Cooper MD [address] [place] [address] [address] [place] [address] PCP - General Family Medicine 02/25/19 documented as of this encounter
--- OUTSIDE RECORDS SUMMARY | 2024-02-02 07:53 | XMS_ITS | Clinical Summary ---
Author Organization [facility] [place] [address] Care Team Providers Care Gear Grinder Name Role Phone Donny Cooper MD Primary Care Provider [phone] Allergies No known active allergies Medications Medication [...] Encounters Date Type Department Care Team Description 02/02/2024 10:00 AM EDT Hospital Encounter Non-Invasive [place] [address] Arrived 01/05/2024 Telephone Cardiology at [address] [address] Sumaya Kanika A 12/28/2023 Notes Only Cardiology at [address] [address] Kanika Shell 11/04/2023 10:00 AM EDT - 11/04/2023 11:59 PM EDT Hospital Encounter Non-Invasive [place] [address] Discharge Disposition: Home from Last 3 Months [...] AM EDT Hospital Encounter Non-Invasive [place] [address] Arrived 05/02/2024 10:00 AM EST Hospital Encounter Non-Invasive [place] [address] Arrived Health Maintenance Due Date Last Done Comments Tetanus/Diphtheria/Pertussis Vaccines (1 - Tdap) 08/19/1959 Zoster vaccine (1 of 2) 1990 Advance Directive 08/19/1995 Pneumoccocal Vaccine: 65+ (2 of 2 - PCV) 05/04/2009 05/04/2008 Covid-19 Vaccine (1 - season) 2024 Influenza (Flu) vaccine (1 o f 1 - Influenza standard series) 01/03/2024 02/01/2010, 03/06/2006, 02/24/2005 Medical Devices Implanted Type Area Audit Tech Device Identifier Shelf Expiration Date Model / Serial / Lot Mdt : [id number] : [id number] Implanted: (Quantity not on file) Cardiac Resynchronization Therapy - Defibrillator Chest Medtronic - [id number] / [id number] / Care Teams Gear Grinder Relationship Specialty Start Date End Date Donny Cooper MD [address] [place], [place] [id number] PCP - General Family Medicine 02/25/19
--- OUTSIDE RECORDS SUMMARY | 2024-02-02 07:53 | XMS_ITS | Encounter Summary ---
[place] [address] Care Team Providers Care Executive Vice President And Chief Operating Officer Name Role Phone Donny Cooper MD Primary Care Provider [phone] Encounter Details Date Type Department Care Team (Latest Contact Info) Description 07/02/2023 10:00 AM EST - 07/02/2023 11:59 PM EST Hospital Encounter [place] [address] Discharge Disposition: Home Social History Tobacco Use [...] AM EDT Hospital Encounter Non[place] [address] Arrived 05/02/2024 10:00 AM EST Hospital Encounter Non[place] [address] Arrived documented as of this encounter Visit Diagnoses Not on filedocumented in this encounter Care Teams Executive Vice President And Chief Operating Officer Relationship Specialty Start Date End Date Donny Cooper MD [address] [place] [address] PCP - General Family Medicine 02/25/19 documented as of this encounter
--- OUTSIDE RECORDS SUMMARY | 2024-02-02 07:53 | XMS_ITS | Encounter Summary ---
[place] [address] Care Team Providers Care Cafeteria Clerk Name Role Phone Donny Cooper MD Primary Care Provider [phone] Encounter Details Date Type Department Care Team (Latest Contact Info) Description 07/07/2022 10:00 AM EST - 07/07/2022 11:59 PM EST Hospital Encounter [place] [address] Discharge Disposition: Home Social History Tobacco Use [...] AM EDT Hospital Encounter [place] [address] Arrived 05/02/2024 10:00 AM EST Hospital Encounter [place] [address] Arrived documented as of this encounter Procedures [...] on filedocumented in this encounter Care Teams Cafeteria Clerk Relationship Specialty Start Date End Date Donny Cooper MD [address] [place] [address] PCP - General Family Medicine 02/25/19 documented as of this encounter
--- OUTSIDE RECORDS SUMMARY | 2024-02-02 07:53 | XMS_ITS | Encounter Summary ---
[facility] [place] [address] Care Team Providers Care Efficiency Clerk Name Role Phone Marques Martinez MD Primary Care Provider [phone] Encounter Details Date Type Department Care Team (Late st Contact Info) Description 06/12/2010 2:10 PM EST Office Visit [place] [address] Jairon Fenton MD [facility] [place] [address] Discharge Disposition: Home Social History Tobacco Use [...] AM EDT Hospital Encounter Non-[place] [address] Arrived 05/02/2024 10:00 AM EST Hospital Encounter [place] [address] Arrived documented as of this encounter Visit Diagnoses Not on filedocumented in this encounter Care Teams Efficiency Clerk Relationship Specialty Start Date End Date Marques Martinez MD [address] [place] [address] PCP - General 04/01/10 04/08/11 documented as of this encounter
--- OUTSIDE RECORDS SUMMARY | 2024-02-02 07:53 | XMS_ITS | Encounter Summary ---
[place] [address] Care Team Providers Care Brand Marketing Intern Name Role Phone Marques Martinez MD Primary Care Provider [phone] Encounter Details Date Type Department Care Team (Late st Contact Info) Description 06/12/2010 2:00 PM EST Procedure visit [place] [address] Social History Tobacco Use Types Packs/Day Years [...] EDT Hospital Encounter Non-Invasive [place] [address] Arrived 05/02/2024 10:00 AM EST Hospital Encounter Non-Invasive [place] [address] Arrived documented as of this encounter Visit Diagnoses Not on filedocumented in this encounter Care Teams Brand Marketing Intern Relationship Specialty Start Date End Date Marques Martinez MD [address] [place] [address] PCP - General 04/01/10 04/08/11 documented as of this encounter
--- OUTSIDE RECORDS SUMMARY | 2024-02-02 07:53 | XMS_ITS | Encounter Summary ---
[place] [address] Care Team Providers Care Commercial Banker Name Role Phone Donny Cooper MD Primary Care Provider [phone] Encounter Details Date Type Department Care Team (Latest Contact Info) Description 08/06/2023 10:00 AM EDT - 08/06/2023 11:59 PM EDT Hospital Encounter [place] [address] Discharge Disposition: Home Social History Tobacco Use [...] AM EDT Hospital Encounter [place] [address] Arrived 05/02/2024 10:00 AM EST Hospital Encounter [place] [address] Arrived documented as of this encounter Visit Diagnoses Not on filedocumented in this encounter Care Teams Commercial Banker Relationship Specialty Start Date End Date Donny Cooper MD [address] [place] [address] PCP - General Family Medicine 02/25/19 documented as of this encounter
--- OUTSIDE RECORDS SUMMARY | 2024-02-02 07:53 | XMS_ITS | Encounter Summary ---
Author Organization [facility] [address] Care Team Providers Care Cat Scanner Operator Name Role Phone Clem Olvera MD Primary Care Provider [phone] Reason for Visit * Reason Comments Follow Up Fracture SP PATELLA FX DO12/12 DOI 03/30/10 Encounter Details Date Type Department Care Team (Late st Contact Info) Description 04/09/2011 1:30 PM EST Office [place] [address] Jairon Gustafson MD [facility] [place] [address] Jose Francisco Bee PA [facility] [place] [address] Patella fracture (Primary Dx) Discharge Disposition: Home [...] AM EDT Hospital Encounter Non-Invasive [place] [address] Arrived 05/02/2024 10:00 AM EST Hospital Encounter Non-Invasive [place] [address] Arrived documented as of this encounter Visit Diagnoses Diagnosis Patella fracture- Primary Closed fracture of patella documented in this encounter Care Teams Cat Scanner Operator Relationship Specialty Start Date End Date Clem Olvera MD [address] [place] [address] PCP - General 04/09/11 02/24/19 documented as of this encounter
--- OUTSIDE RECORDS SUMMARY | 2024-02-02 07:53 | XMS_ITS | Encounter Summary ---
Author Organization [facility] Address [address] [place] [address] Care Team Providers Care Laundry Machine Tender Name Role Phone Unavailable Primary Care Provider Unavailabl e Encounter Details Date Type Department Care Team (Late st Contact Info) Description 12/02/2012 Results Only [facility] Laboratory Services - [facility] ([facility]) [address] [place] [id number] Satinder Edwards MD [address] [place] [address] Social History Tobacco Use Types Packs/Day Years [...] ? NABIL IGLESIAS ? Accession #: ? [id number] ? : ? 1940 (Age: 72) ??M [...] PATHOLOGY ORDERABLE S Performing Organization Address City/State/[facility] Co de Phone Number [facility] [address] [place] [address] documented in this encounter Visit Diagnoses Not on filedocumented in this encounter
--- OUTSIDE RECORDS SUMMARY | 2024-02-02 07:53 | XMS_ITS | Encounter Summary ---
Author Organization [facility] [place] [address] Care Team Providers Care Photographic Engineer Name Role Phone Marques Martinez MD Primary Care Provider [phone] Encounter Details Date Type Department Care Team (Late st Contact Info) Description 09/11/2010 Orders Only [place] [address] Jairon Fenton MD [facility] [place] [address] Fracture of patella, left, closed (Primary Dx) [...] AM EDT Hospital Encounter [place] [address] Arrived 05/02/2024 10:00 AM EST Hospital Encounter [place] [address] Arrived documented as of this encounter Visit Diagnoses Diagnosis Fracture of patella, left, closed- Primary Closed fracture of patella documented in this encounter Care Teams Photographic Engineer Relationship Specialty Start Date End Date Marques Martinez MD [address] [place] [address] PCP - General 04/01/10 04/08/11 documented as of this encounter
--- OUTSIDE RECORDS SUMMARY | 2024-02-02 07:53 | XMS_ITS | Encounter Summary ---
Author [place] [address] Care Team Providers Care Diamond Die Maker Name Role Phone Donny Cooper MD Primary Care Provider [phone] Encounter Details Date Type Department Care Team (Late st Contact Info) Description 02/02/2024 10:00 AM EDT Hospital Encounter [place] [address] Arrived Social History Tobacco Use Types Packs/Day Years [...] Care Team (Late st Contact Info) Description 05/02/2024 10:00 AM EST Hospital Encounter [place] [address] Arrived documented as of this encounter Visit Diagnoses Not on filedocumented in this encounter Care Teams Diamond Die Maker Relationship Specialty Start Date End Date Donny Cooper MD [address] [place] [address] PCP - General Family Medicine 02/25/19 documented as of this encounter
--- OUTSIDE RECORDS SUMMARY | 2024-02-02 07:53 | XMS_ITS | Encounter Summary ---
[place] [address] Care Team Providers Care Milk Hauler Name Role Phone Donny Cooper MD Primary Care Provider [phone] Encounter Details Date Type Department Care Team (Late st Contact Info) Description 03/17/2019 Telephone Cardiology at [address] [address] Sheri Quinn LNA Social History [...] AM EDT Hospital Encounter [place] [address] Arrived 05/02/2024 10:00 AM EST Hospital Encounter [place] [address] Arrived documented as of this encounter Visit Diagnoses Not on filedocumented in this encounter Care Teams Milk Hauler Relationship Specialty Start Date End Date Donny Cooper MD [address] [facility] [address] [place] [address] PCP - General Family Medicine 02/25/19 documented as of this encounter
--- OUTSIDE RECORDS SUMMARY | 2024-02-02 07:53 | XMS_ITS | Encounter Summary ---
Author [facility] [place] [address] Care Team Providers Care Bellhop Name Role Phone Marques Martinez MD Primary Care Provider [phone] Encounter Details Date Type Department Care Team (Late st Contact Info) Description 05/01/2010 3:10 PM EST Office [place] [address] Jairon Fenton MD [facility] [place] [address] Discharge Disposition: Home Social History Tobacco Use [...] AM EDT Hospital Encounter Non-Invasive [place] [address] Arrived 05/02/2024 10:00 AM EST Hospital Encounter Non-Invasive [place] [address] Arrived documented as of this encounter Visit Diagnoses Not on filedocumented in this encounter Care Teams Bellhop Relationship Specialty Start Date End Date Marques Martinez MD [address] [place] [address] PCP - General 04/01/10 04/08/11 documented as of this encounter
--- OUTSIDE RECORDS SUMMARY | 2024-02-02 07:53 | XMS_ITS | Encounter Summary ---
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 Procedures IMPLANTABLE CARDIAC DEFIBRILLATOR PROCEDURE Navdeep Hurd MD [address] [place], [place] [address] [address] [place] [address] Referral ID Status Reason Start Date Expiration Date Visits Re quested Visits Authorized [id number] Closed 02/13/2016 1 1 Encounter Details Date Type Department Care Team (Latest Contact Info) Description 02/13/2016 Pre-Procedure Orders Encounter [facility] [address] [place], [place] [address] Navdeep Hurd [facility] [address] [facility] [address] [place] [address] ICD (implantable cardioverter-defibril lator) battery [...] 8 EDT Narrative 02/27/2016 15:17 EDT *Cardiology* [address] [place] [address] Lead Revision (Report amended ) Patient: Nabil Iglesias ?Study Date: ?02/27/2016 ? Accession #: ? [id number] : ? 1940 Referring: Clem Olvera Attending: [...] 0.35 glide wire a Nick MENDOZAW 6F ([facility]) 6 mm-40 mm balloon dilation still could [...] fascia. The leads were connected to a BOILER ERECTOR-D device. Device and Lead detail in table [...] Implanted device: Medtronic - Viva Quad XT BOILER ERECTOR-D DF4 - Serial number: [id number] Explanted device: Medtronic - Viva XT BOILER ERECTOR-D DF4 - Serial number: [id number]. LEAD PARAMETERS + + + + + [...] + + + + + Serial number [id number] ? [id number] ?? [id number] ?? [id number] ? + + + + [...] Gulshan Drummond MD - 05/12/2016 *Cardiology* [address] [place] [address] Lead Revision (Report amended ) Patient: Nabil [...] therefore over an 0.35 glide [facility] 6 mm-40 mm balloon dilation still could [...] fascia. The leads were connected to a BOILER ERECTOR-D device. Device and Lead detail in table [...] Implanted device: Medtronic - Viva Quad XT BOILER ERECTOR-D DF4 - Serial number: [id number] Explanted device: Medtronic - Viva XT BOILER ERECTOR-D DF4 - Serial number: [id number]. LEAD PARAMETERS + + + + + + Lead # 1 2 3 4 + + + + + + Chamber RA RV LV LV + + + + + + Date 07/19/2002 07/18/2013 02/27/2016 07/18/2013 implanted + + + + + + Model St. Esa Medtronic Medtronic Enpath information [id number] Attain Epicardial Performa 4298 + + + + + + Serial number [id number] + + + + + + [...] situ documented in this encounter Care Teams Set Painter Relationship Specialty Start Date End Date Clem Olvera MD [address] [place] [address] PCP - General 12/18/15 documented as of this encounter
--- OUTSIDE RECORDS SUMMARY | 2024-02-02 07:53 | XMS_ITS | Encounter Summary ---
[place] [address] Care Team Providers Care Elastic Assembler Name Role Phone Marques Martinez MD Primary Care Provider [phone] Encounter Details Date Type Department Care Team (Late st Contact Info) Description 03/30/2010 [place] [address] Javier Barajas MD [facility] [address] [place] [address] Social History Tobacco Use Types Packs/Day Years [...] Hospital Encounter [place] [address] Arrived 05/02/2024 10:00 AM EST Hospital Encounter [place] [address] Arrived documented as of this encounter Procedures [...] AM EST Jairon Fenton MD CHEMISTRY ORDERABLES [facility] MILLENNIUM * (ABNORMAL) CREATININE, SERUM (04/01/2010 [...] Fenton MD CHEMISTRY ORDERABLES Performing Organization Address City/[facility] Co de Phone Number DEJA HSERENNIUM * BUN (04/01/2010 6:09 AM EST) Blood Urea Nitrogen 12 10 - 20 mg/dL [facility] MILLENNIUM Blood specimen (specimen) 04/01/2010 6:09 AM EST 04/01/2010 6:09 AM EST Jairon Fenton MD CHEMISTRY ORDERABLES Performing Organization Address City/[facility] Co de Phone Number CERIVIS SHERENNIUM * (ABNORMAL) REFLEX LAB-A-DIFF (04/01/2010 5:47 AM [...] MD HEMATOLOGY ORDERABLE S Performing Organization Address [facility] Phone Number CERIVIS SHERENNIUM * HEPATIC FUNCTION PANEL (03/30/2010 6:05 PM [...] Fenton MD CHEMISTRY ORDERABLES Performing Organization Address [facility] Phone Number DEJA SHERENNIUM * ELECTROLYTE PANEL (03/30/2010 6:05 PM EST) [...] Fenton MD CHEMISTRY ORDERABLES Performing Organization Address City/[facility]/ZIP Co de Phone Number DEJA SEGOVIA * CREATININE, SERUM (03/30/2010 6:05 PM EST) Creatinine 0.87 0.80 - 1.50 mg/dL [facility] Est Glomerular Filtration Rate >60 >=60 CERNER [facility] Comment: The National Kidney Disease Education Program [...] Fenton MD CHEMISTRY ORDERABLES Performing Organization Address City/[facility]/ZIP Co de Phone Number DEJA SEGOVIA * BUN (03/30/2010 6:05 PM EST) Blood Urea Nitrogen 18 10 - 20 mg/dL [facility] Blood specimen (specimen) 03/30/2010 6:05 PM EST 03/30/2010 6:13 PM EST Jairon Fenton MD CHEMISTRY ORDERABLES Performing Organization Address [facility] Phone Number [facility] * APTT (03/30/2010 6:05 PM EST) Partial Thromboplastin Time 26 25 - 37 sec [facility] Comment: Recommended therapeutic PTT range for full dose unfractionated heparin is 80-114 seconds. Blood specimen (specimen) 03/30/2010 6:05 PM EST 03/30/2010 6:14 PM EST Jairon Fenton MD HEMATOLOGY ORDERABLE S Performing Organization Address [facility] Phone Number [facility] * PROTIME-INR (03/30/2010 6:05 PM EST) Prothrombin Time 14.2 12.3 - 14.7 sec [facility] Comment: [facility] Transfusion Committee Guidelines: INR less than 2.0, PTT less than OR equal to 43.5 seconds, or Fibrinogen greater than or equal to 100 mg/dl indicate adequate procoagulant activity for hemostasis in patients without underlying bleeding disorders. International Normalization Ratio 1.1 0.9 - 1.1 [facility] Blood specimen (specimen) 03/30/2010 6:05 PM EST 03/30/2010 6:14 PM EST Jairon Fenton MD HEMATOLOGY ORDERABLE S Performing Organization Address [facility] Phone Number [facility] * (ABNORMAL) REFLEX LAB-A-DIFF (03/30/2010 6:05 PM EST) Neutrophil % 69.6 34.0 - 71.0 % [facility] Neutrophil Absolute 8.85(H) 1.50 - 6.30 x10(3)/mc L [facility] Lymph % 23.9 19.0 - 53.0 % [...] EST Jairon Fenton MD HEMATOLOGY ORDERABLE S DEJA MOSQUEDAIUM * (ABNORMAL) CBC (03/30/2010 6:05 PM EST) White Blood Cell 12.7(H) 4.0 - 10.0 x10(3)/mc L [facility] MILLENNIUM Red Blood Cell 4.57(L) 4.63 - 6.08 x10(6)/mc L [facility]ILL[facility] Hemoglobin 14.1 13.7 - 17.5 gm/dL [facility] MILL[facility]NI[facility] Hematocrit 42.4 40.0 - 51.0 % [facility] MILLENNIUM Mean Cell Volume 92.8(H) 79.0 - 92.0 fL [facility] MILLENNIUM Mean Cell Hemoglobin 30.9 25.6 - 32.2 pg [facility] Mean Cell Hemoglobin Concentration 33.3 32.0 - 36.5 gm/dL [facility] Platelet 230 145 - 370 x10(3)/mc L [facility] MILLENNIUM RDW Standard Deviation 44.2 35.0 - 46.[address] MILLEN[facility]UM RDW coefficient of variation 13.1 10.9 - 14.4 % [facility] MILL[facility] Mean Platelet Volume 10.6 9.0 - 12.0 fL [facility] MILLENNIUM Blood specimen (specimen) 03/30/2010 6:05 PM EST 03/30/2010 6:13 PM EST Jairon Fenton MD HEMATOLOGY ORDERABLE S Performing Organization Address [facility] Co de Phone Number [facility] * REFLEX LAB-ANTIBODY SCREEN (03/30/2010 3:17 PM EST) Ab Screen Interp Negative [facility] Expires at [id number] on: [id number] [facility] Blood specimen (specimen) 03/30/2010 3:17 PM EST 03/30/2010 3:17 PM EST Javier Barajas MD BLOOD BANK LAB ORDER PRECIOUS Performing Organization Address [facility] de Phone Number [facility] * REFLEX LAB-ABO/RH (03/30/2010 3:17 PM EST) ABORH Type A Pos [facility] Blood specimen (specimen) 03/30/2010 3:17 PM EST 03/30/2010 3:17 PM EST Javier Barajas MD BLOOD BANK LAB ORDER PRECIOUS Performing Organization Address [facility]/ZIP Co de Phone Number [facility] * ELECTROLYTE PANEL (03/30/2010 2:50 PM EST) Sodium 135 135 - 145 mmol/L [facility] Potassium 4.3 3.5 - 5.0 mmol/L [facility] Comment: Please note: ??Patients with WBC [...] PM EST Javier Barajas MD CHEMISTRY ORDERABLES [facility] MILL[facility] * CREATININE, SERUM (03/30/2010 2:50 PM EST) [...] Barajas MD CHEMISTRY ORDERABLES Performing Organization Address [facility] Number [facility] * BUN (03/30/2010 2:50 PM EST) Blood Urea Nitrogen 18 10 - 20 mg/dL [facility] Blood specimen (specimen) 03/30/2010 2:50 PM EST 03/30/2010 3:05 PM EST Javier Barajas MD CHEMISTRY ORDERABLES Performing Organization Address [facility] Number [facility] * GLUCOSE, RANDOM (03/30/2010 2:50 PM EST) Glucose 95 <=199 mg/dL [facility] Comment:Diabetes: >=200 mg/d L plus symptoms Blood specimen (specimen) 03/30/2010 2:50 PM EST 03/30/2010 3:05 PM EST Javier Barajas MD CHEMISTRY ORDERABLES Performing Organization Address [facility] Number [facility] * APTT (03/30/2010 2:50 PM EST) Partial Thromboplastin Time 25 25 - 37 sec [facility] Comment: Recommended therapeutic PTT range for full dose unfractionated heparin is 80-114 seconds. Blood specimen (specimen) 03/30/2010 2:50 PM EST 03/30/2010 3:06 PM EST Javier Barajas MD HEMATOLOGY ORDERABLE S Performing Organization Address [facility] Number [facility] * PROTIME-INR (03/30/2010 2:50 PM EST) Prothrombin Time 14.1 12.3 - 14.7 sec [facility] Comment: [facility] Transfusion Committee Guidelines: INR less than 2.0, [...] Javier Barajas MD HEMATOLOGY ORDERABLE S CERIVIS MILLENNIUM * (ABNORMAL) CBC (03/30/2010 2:50 PM EST) [...] Javier Barajas MD HEMATOLOGY ORDERABLE S CERIVIS SEGOVIA documented in this encounter Visit Diagnoses Not on filedocumented in this encounter Care Teams Elastic Assembler Relationship Specialty Start Date End Date Marques Martinez MD [address] [place] [address] PCP - General 04/01/10 04/08/11 documented as of this encounter
--- OUTSIDE RECORDS SUMMARY | 2024-02-02 07:53 | XMS_ITS | Encounter Summary ---
Author Organization [facility] Address [address] [place] [address] Care Team Providers Care Software Recruiter Name Role Phone Clem Olvera MD Primary Care Provider [phone] Reason for Referral * (Routine) - Closed Specialty Diagnoses / Procedures Referred By Pedro madera Referred To Contact Beatrice De La Garza NP [address] [place] [phone] Referral ID Status Reason Start Date Expiration Date V isits Requested Visits Authorized [id number] Closed Specialty Services Required 02/27/2016 1 1 Comments You must contact us if we have not contacted you or you have missed your scheduled appointment. If you have any nursing questions, please don't hesitate to call the Cardiac Arrhythmia Service at [facility] at [phone] or , extension [phone]. For any scheduling of appointments, please call [phone] or , extension [phone]. . * (Routine) - Closed Specialty Diagnoses / Procedures Referred By Pedro madera Referred To Contact Beatrice De La Garza NP [address] [phone] Referral ID Status Reason Start Date Expiration Date V isits Requested Visits Authorized [id number] Closed Specialty Services Required 02/27/2016 1 1 Comments You have a pre existing appointment with Dr. Olvera on March 05 at 2:00, please have Dr. Olvera check your incision at that visit. * (Routine) - Closed Specialty Diagnoses / Procedures Referred By Contbecca t Referred To Contact Beatrice De La Garza NP [address] [phone] Referral ID Status Reason Start Date Expiration Date V isits Requested Visits Authorized [id number] Closed Specialty Services Required 02/27/2016 1 1 [...] scheduled at your first appointment. - [facility] Cardiology is located at [address] [facility] in [place] -Clinics are also held in [facility], and [place], [place] and [facility]. If you live in those areas, we will make arrangements for follow-up appointments in one of those clinics.. Encounter Details Date Type Department Care Team (Late st Contact Info) Description 02/27/2016 6:30 EDT - 02/28/2016 13:39 EDT Hospital Encounter [facility] Cardiac/Telemetry Unit [address] [place] [address] Gulshan Drummond MD PhD [address] [address] Gulshan Montoya Sa, MD [address] [facility] [address] [place] [phone] AICD lead malfunction, subsequent encounter; ICD [...] around May 2013, when he was in [place], [place]. This triggered major cardiac workup including [...] then underwent a device upgrade to a DIRECTOR PARK-D device with biventricular pacing for his EF [...] been followed in cardiology outreach clinic at [facility] in [place]. Continued high pacing threshold on the epicardial [...] and plans to follow up with his Swing Saw Operator in [place] in 6-8 weeks for [...] HGBA1C Discharge Follow Up Appointments Scheduled with [facility] Appointments Outside of [facility] We Will Schedule Studies We Will Schedule Appointments We Recommend but have not been Scheduled Beatrice De La Garaz NP 02/27/2016 10:59 Associated attestation - Gulshan Montyoa Sa, MD - 02/28/2016 1519 EDT Attending Attestation: I saw and evaluated the patient. I discussed the case with the resident/ICT ACCOUNT MANAGER/fellow and agree with the findings and plan as documented above. Gulshan bullock Sa, MD Cardiac Electrophysiology documented in this encounter Discharge Instructions * Appointments* Beatrice De La Garza NP - 02/27/2016 11:[address] Olvera on 03/05/16 at 2:00 as previously scheduled for a routine visit and for a check of your incision. Follow up with Giselle Hill NP at the [facility] in May, you will be notified [...] Notes * Lou Alfonso RN - 02/28/2016 7430 EDT Pt awaiting discharge. IV and tele was removed by primary nurse. This RN administered flu shot and provided flu information sheet. AVS and medications reviewed by RN with patient and . AVS statedcoreg was 3.25mg BID, which pt states no, they must have copied it down wrong. I'm not doing that.We've been through this in [place]. It makes me pass out. RN suggested checking with team, which pt denied and states I wont take it twice a day. He did agree to review this medication with his steward/stewardess economy class and plans to remain on his home dosing, which was in the morning. He received dose this am. Ptleft via wheelchair with . * Beatrice Rodriguez - 02/28/2016 1329 EDT Brief visit with patient and as they were being discharged. Patient states he is independent in self care and home management. He feels well supported by friends and neighbors. Patient has Medicare and [facility]. [facility] in [facility]. No needs identified at time of discharge. will provide transportation. Beatrice Rodriguez RN Case Manager #[id number] documented in this encounter H&P Notes * [...] around May 2013, when he was in [place], [place]. This triggered major cardiac workup including [...] point, his device was upgraded to a DIRECTOR PARK-D device with biventricular pacing. By the patient's [...] been followed in cardiology outreach clinic at [facility] in [place]. Continued high pacing threshold on the epicardial LV lead has caused a very rapid battery depletion. Dr. David Adams in [place] recommended against lead extraction and reimplant as [...] insertion 2002 2013 second pacemaker [facility] Social History Family History Social History Substance Use Topics ??? Smoking status: Former Smoker Years: 35.00 Quit date: 1989 ??? Smokeless tobacco: Not on file ??? Alcohol use 6.6 oz/week 6 Cans of beer, 5 Glasses of wine per week , lives with , retired. Spends leong in [place]. Spends the chery in [place], [place]. Quit smoking in 1990. Has 2 [...] point, his device was upgraded to a DIRECTOR PARK-D device with biventricular pacing with a surgically [...] EST) 03/12/2016 12:4 3 EST Scan 2 Radiation Control Technician PROCEDURE/MINOR JUDD GICAL ORDERABLES * ECG REPORT - SCANNED (03/04/2016 14:06 EDT) 03/04/2016 14:0 6 EDT Scan 2 Radiation Control Technician PROCEDURE/MINOR JUDD GICAL ORDERABLES * ECG REPORT - SCANNED (03/04/2016 14:06 EDT) 03/04/2016 14:0 6 EDT Scan 2 Radiation Control Technician PROCEDURE/MINOR JUDD GICAL ORDERABLES * IMPLANT RECORD - SCANNED (03/04/2016 14:06 EDT) 03/04/2016 14:0 6 EDT Scan 2 Radiation Control Technician PROCEDURE/MINOR JUDD GICAL ORDERABLES * ECG REPORT - SCANNED (03/01/2016 8:58 EDT) 03/01/2016 8:58 EDT Scan 2 Radiation Control Technician PROCEDURE/MINOR JUDD GICAL ORDERABLES * ECG REPORT - SCANNED (03/01/2016 8:58 EDT) 03/01/2016 8:58 EDT Scan 2 Radiation Control Technician PROCEDURE/MINOR UJDD GICAL ORDERABLES * CHEST PA AND LATERAL [...] ORDERABLES * HEMAGRAM (02/28/2016 5:44 EDT) [facility] WBC 9.84 4.0 - 10.4 K/cmm 02/28/2016 6:26 EDT [facility] RBC 4.42 4.36 - 5.78 M/cmm 02/28/2016 6:26 T [facility] Hemoglobin 14.2 13.8 - 17.3 [...] La Garza NP HEMATOLOGY & PF4 ORDERABLES [facility] [address] [place] [address] * (ABNORMAL) CREATININE (02/28/2016 5:44 EDT) Creatinine 0.65(L) 0.66 - 1.25 mg/dl 02/28/2016 6:48 EDT [facility] GFR, Calculated 95 >60 ml/min/1.7 3m2 02/28/2016 6:48 EDT [facility] Comment: eGFR calculated using CKD-EPI equation for non Americans. Multiply eGFR by 1.16 for Americans. Blood specimen (specimen) BLOOD SPECIMEN / Unknown 02/28/2016 5:44 EDT 02/28/2016 6:13 EDT Beatrice De La Garza NP CHEMISTRY & B LOOD GAS ORDERABLES Performing Organization Address [facility]/ZIP Co de Phone Number [facility] [address] [place] [address] * BUN (02/28/2016 5:44 EDT) BUN 14 10 - 26 mg/dl 02/28/2016 6:48 EDT [facility] Blood specimen (specimen) BLOOD SPECIMEN / Unknown 02/28/2016 5:44 EDT 02/28/2016 6:13 EDT Beatrice De La Garza ICT ACCOUNT MANAGER CHEMISTRY & B LOOD GAS ORDERABLES Performing Organization Address [facility] Co de Phone Number [facility] [address] [place] [address] * ELECTROLYTES (02/28/2016 5:44 EDT) Sodium 138 136 - 145 mEq/L 02/28/2016 6:48 EDT [facility] Potassium 4.7 3.5 - 5.0 mEq/L 02/28/2016 6:48 EDT [facility] Chloride 104 96 - 110 mEq/L 02/28/2016 6:48 EDT [facility] CO2 25 22 - 32 mEq/L 02/28/2016 6:48 EDT [facility] Comment:Note new reference r hong 02/19/16 Blood specimen (specimen) BLOOD SPECIMEN / Unknown 02/28/2016 5:44 EDT 02/28/2016 6:13 EDT Beatrice De La Garza NP CHEMISTRY & B LOOD GAS ORDERABLES [facility] [address] [place] [address] * PORTABLE CHEST 1 VIEW (02/27/2016 12:46 [...] 12:41 EDT) 02/27/2016 12:4 1 EDT Narrative [facility] - 02/28/2016 8:57 EDT ? [facility] ? Test Date: ?2016-02-27 Pat Name: ? NABIL IGLESIAS ? Department: ?? [facility] ? Room: ? MW514 Gender: ? M ?Wing Mailer Machine Operator: ?? [id number] : ?1940 ? Requested By: KAIN REED L Order Number: [id number] ? Reading MD: ?? BRAYAN CUENCA MD ? Measurements Intervals ?[place] ? Rate: ? 63 ? P: ?15 ID: ? 159 ?QRS: ?234 QRSD: ? 156 ?T: ?15 QT: ? 479 ? QTc: ?493 ? Interpretive Statements ELECTRONIC VENTRICULAR PACEMAKER Compared to ECG 02/27/2016 08:10:34 No significant changes I reviewed the tracing and have either agreed or edited the findings in this report. Electronically Signed On 02-28-16 08:57:02 EDT by BRAYAN CUENCA MD. Procedure Note Brayan Cuenca MD - 02/28/2016 [facility] Test Date: 2016-02-27 Pat Name: NABIL IGLESIAS Department: [place] [address] Room: [facility] Gender: M Wing Mailer Machine Operator: [id number] : 1940 Requested By: KAIN Gallagher Order Number: [id number] Reading MD: BRAAYN CUENCA MD Measurements Intervals [place] Rate: 63 P: 15 ID: 159 QRS: 234 QRSD: 156 T: 15 QT: 479 QTc: 493 Interpretive Statements ELECTRONIC VENTRICULAR PACEMAKER Compared to ECG 02/27/2016 08:10:34 No significant changes I reviewed the tracing and have either agreed or edited the findings inthis report. Electronically Signed On 02-28-16 08:57:02 EDT by BRAYAN BEEBE. Gulshan Drummond MD PhD CARDIA C ECG ORDERABLES [facility] * PROTIME (02/27/2016 8:45 EDT) Pro Time 12.3 10.3 - 13.1 secs 02/27/2016 9:10 EDT [facility] Comment: New prothrombin t josue range effective 01/29/16 I.N.R. 1.1 0.9 - 1.1 Ratio 02/27/2016 9:10 EDT [facility] Comment: Moderate Intensity Coumadin INR = 2.0-3.0 Adjustments in anticoagulant therapy dose should be based upon the INR and NOT the Pro Time. Blood specimen (specimen) BLOOD SPECIMEN / Unknown 02/27/2016 8:45 EDT 02/27/2016 8:54 EDT Gulshan Drummond MD PhD HEMATO LOGY & PF4 ORDERABLES [facility] [address] [place] [address] * HEMAGRAM (02/27/2016 8:45 EDT) WBC 6.47 4.0 - 10.4 K/cmm 02/27/2016 8:57 EDT [facility] RBC 4.51 4.36 - 5.78 M/cmm 02/27/2016 8:57 EDT [facility] Hemoglobin 14.7 13.8 - 17.3 gm/dl 02/27/2016 8:57 EDT [facility] HCT 41.7 39.5 - 50.2 % 02/27/2016 8:57 EDT [facility] MCV 93 81 - 95 fl 02/27/2016 8:57 EDT [facility] MCH 32.6 27.6 - 33.0 pg 02/27/2016 8:57 EDT [facility] MCHC 35.3 32.8 - 36.4 gm/dl 02/27/2016 8:57 T [facility] RDW-CV 13.1 11.8 - 14.1 % 02/27/2016 8:57 EDT [facility] RDW-SD 44.0 36.5 - 45.9 fl 02/27/2016 8:57 EDT [facility] PLT 176 141 - 377 K/cmm 02/27/2016 8:57 EDT [facility] MPV 10.7 9.5 - 12.7 fl 02/27/2016 8:57 EDT [facility] Blood specimen (specimen) BLOOD SPECIMEN / Unknown 02/27/2016 8:45 EDT 02/27/2016 8:54 EDT Gulshan Drummond MD PhD HEMATO LOGY & PF4 ORDERABLES [facility] [address] [place] [address] * ELECTROLYTES (02/27/2016 8:45 EDT) Sodium 142 136 - 145 mEq/L 02/27/2016 9:13 EDT [facility] Potassium 4.7 3.5 - 5.0 mEq/L 02/27/2016 9:13 EDT [facility] Chloride 103 96 - 110 mEq/L 02/27/2016 9:13 EDT [facility] CO2 27 22 - 32 mEq/L 02/27/2016 9:13 EDT [facility] Comment:Note new reference r hong 02/19/16 Blood specimen (specimen) BLOOD SPECIMEN / Unknown 02/27/2016 8:45 EDT 02/27/2016 8:54 EDT Gulshan Drummond MD PhD CHEMIS TRY & BLOOD GAS ORDERABLES Performing Organization Address [facility] de Phone Number [facility] [address] [place] [address] * CREATININE (02/27/2016 8:45 EDT) Creatinine 0.69 0.66 - 1.25 mg/dl 02/27/2016 9:13 EDT [facility] GFR, Calculated 93 >60 ml/min/1.7 3m2 02/27/2016 9:13 EDT [facility] Comment: eGFR calculated using CKD-EPI equation for non Americans. Multiply eGFR by 1.16 for Americans. Blood specimen (specimen) BLOOD SPECIMEN / Unknown 02/27/2016 8:45 EDT 02/27/2016 8:54 EDT Gulshan Drummond MD PhD CHEMIS TRY & BLOOD GAS ORDERABLES Performing Organization Address [facility] Co de Phone Number [facility] [address] [place] [address] * BUN (02/27/2016 8:45 EDT) BUN 17 10 - 26 mg/dl 02/27/2016 9:13 EDT [facility] Blood specimen (specimen) BLOOD SPECIMEN / Unknown 02/27/2016 8:45 EDT 02/27/2016 8:54 EDT Gulshan Drummond MD PhD CHEMIS TRY & BLOOD GAS ORDERABLES [facility] [address] [place] [address] * EKG 12-LEAD (02/27/2016 8:08 EDT) 02/27/2016 8:08 EDT Narrative [facility] - 02/28/2016 9:01 EDT ? [facility] ? Test Date: ?2016-02-27 Pat Name: ? NABIL IGLESIAS ? Department: ?? [facility] ? Room: ? RN4673 Gender: ? M ?Wing Mailer Machine Operator: ?? [id number] : ?1940 ? Requested By: MARCIA Boo Order Number: [id number] ? Julia WRIGHT: ?? BRAYAN CUENCA MD ? Measurements Intervals ?[place] ? Rate: ? 69 ? P: ?147 ID: ? 134 ?QRS: ?-67 QRSD: ? 160 [...] Note Brayan Cuenca MD - 02/28/2016 [facility] Test Date: 2016-02-27 Pat Name: NABIL IGLESIAS Department: [facility] Room: [id number] Gender: M Wing Mailer Machine Operator: [id number] : 1940 Requested By: MARCIA Boo Order Number: [id number] Reading MD: BRAYAN CUENCA MD Measurements Intervals [place] Rate: 69 P: 147 ID: 134 QRS: -67 QRSD: 160 T: -59 QT: 434 QTc: 467 Interpretive Statements ELECTRONIC ATRIAL PACEMAKER ELECTRONIC VENTRICULAR PACEMAKER Compared to ECG 02/27/2016 08:08:46 No significant changes I reviewed the tracing and have either agreed or edited the findings inthis report. Electronically Signed On 02-28-16 09:01:04 EDT by BRAYAN BEEBE. Navdeep Hurd MD CARDIAC ECG ORD ERABLES [facility] documented in this encounter Visit Diagnoses [...] Reason: Other - Comment: pt already took DOUGHNUT GLAZIER, takes other meds at HS) 921 (Given [...] Reason: Other - Comment: pt already took DOUGHNUT GLAZIER, takes other meds at HS)2100 (Given - Provider: Mady Bruno RN) spironolactone (ALDACTONE) tablet 12.5 mg 12.5 mg, oral, DAILY, First dose on Thu02/27/16 at 1245, Until Discontinued, Routine 1306 (Not Given - Provider: Nneka Stuart RN - Reason: Other - Comment: pt already took DOUGHNUT GLAZIER, takes other meds at HS)2102 (Given - Provider: Mady Bruno RN) tamsulosin (FLOMAX) capsule 0.4 mg 0.4 mg, oral, DAILY, First dose on Thu02/27/16 at 1245, Until Discontinued, Routine 1306 (Not Given - Provider: Nneka Stuart RN - Reason: Other - Comment: pt already took DOUGHNUT GLAZIER, takes other meds at HS) 921 (Given [...] 02/02 documented in this encounter Care Teams Software Recruiter Relationship Specialty Start Date End Date Clem Olvera MD [address] [place] [address] PCP - General 12/18/15 documented as of this encounter
--- OUTSIDE RECORDS SUMMARY | 2024-02-02 07:53 | XMS_ITS | Encounter Summary ---
Author Organization [facility] [place] [address] Care Team Providers Care Equipment Operator/Laborer Name Role Phone Marques Martinez MD Primary Care Provider [phone] Encounter Details Date Type Department Care Team (Late st Contact Info) Description 10/09/2010 11:35 AM EDT - 10/09/2010 11:59 PM EDT Hospital Encounter XRay at [address] [place] [phone] Social History Tobacco Use Types Packs/Day Years [...] Hospital Encounter Non-Invasive Cardiology Lab [facility] [place] [address] Arrived 05/02/2024 10:00 AM EST Hospital Encounter Non-Invasive Cardiology Lab [facility] [place] [address] Arrived documented as of this encounter Visit Diagnoses Not on filedocumented in this encounter Care Teams Equipment Operator/Laborer Relationship Specialty Start Date End Date Marques Martinez MD [address] [place] [address] PCP - General 04/01/10 04/08/11 documented as of this encounter
--- OUTSIDE RECORDS SUMMARY | 2024-02-02 07:53 | XMS_ITS | Encounter Summary ---
[place] [address] Care Team Providers Care Clinical Data Associate Name Role Phone Donny Cooper MD Primary Care Provider [phone] Encounter Details Date Type Department Care Team (Late st Contact Info) Description 12/28/2023 Notes Only Cardiology at [address] [phone] Kanika Shell Social History Tobacco Use Types [...] AM EDT Hospital Encounter [place] [phone] Arrived 05/02/2024 10:00 AM EST Hospital Encounter [place] [phone] Arrived documented as of this encounter Visit Diagnoses Not on filedocumented in this encounter Care Teams Clinical Data Associate Relationship Specialty Start Date End Date Donny Cooper MD [address] [place] [address] PCP - General Family Medicine 02/25/19 documented as of this encounter
--- OUTSIDE RECORDS SUMMARY | 2024-02-02 07:53 | XMS_ITS | Encounter Summary ---
Author Organization [facility] [place] [address] Care Team Providers Care Vice President Of Brand Management Name Role Phone Donny Cooper MD Primary Care Provider [phone] Encounter Details Date Type Department Care Team (Late st Contact Info) Description 07/26/2019 Notes Only Cardiology at [address] [address] [facility] [place] [address] Social History Tobacco Use Types Packs/Day Years [...] his Medtronic biventricular ICD is reviewed. Suboptimal BODYBUILDER at 84%. Normal device function. Awaiting Holter to assess PVC burden. Maged Arguelles MD [facility] Cardiac Electrophysiology 07/26/2019 9:04 AM documented in this encounter Plan of Treatment Upcoming Encounters Date Type Department Care Team (Late st Contact Info) Description 02/02/2024 10:00 AM EDT Hospital Encounter Non-Invasive [place] [address] Arrived 05/02/2024 10:00 AM EST Hospital Encounter Non-Invasive [place] [address] Arrived documented as of this encounter Visit Diagnoses Not on filedocumented in this encounter Care Teams Vice President Of Brand Management Relationship Specialty Start Date End Date Donny Cooper MD [address] [place] [address] PCP - General Family Medicine 02/25/19 documented as of this encounter
--- OUTSIDE RECORDS SUMMARY | 2024-02-02 07:53 | XMS_ITS | Encounter Summary ---
[place] [address] Care Team Providers Care Starchmaker Name Role Phone Marques Martinez MD Primary Care Provider [phone] Encounter Details Date Type Department Care Team (Late st Contact Info) Description 05/01/2010 2:40 PM EST Procedure visit [place] [address] Social History Tobacco Use Types Packs/Day Years [...] AM EDT Hospital Encounter Non-[place] [address] Arrived 05/02/2024 10:00 AM EST Hospital Encounter Non[place] [address] Arrived documented as of this encounter Visit Diagnoses Not on filedocumented in this encounter Care Teams Starchmaker Relationship Specialty Start Date End Date Marques Martinez MD [address] [place] [address] PCP - General 04/01/10 04/08/11 documented as of this encounter
[2024-02-02 07:58] VITALS: BP 138/68; PULSE 77
--- OUTSIDE RECORDS SUMMARY | 2024-02-04 08:01 | XMS_ITS | Encounter Summary ---
Author Organization [facility] Address [address] [place] [address] Care Team Providers Care Thermospray Operator Name Role Phone Clem Olvera MD Primary Care Provider [phone] Encounter Details Date Type Department Care Team (Late st Contact Info) Description 03/16/2019 Abstract [facility] [address] [place] [address] Ronal Avelar, JADON AV block, 2nd degree [...] Laterality Modality Device Narrative 03/24/2019 10:30 EST [facility] Device Visit Clerical Stock Inspector: OPPRTUNITYtronic Device Type: HYDRAULIC BLOCKER-D Service: Remote ? 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
--- OUTSIDE RECORDS SUMMARY | 2024-02-04 08:01 | XMS_ITS | Encounter Summary ---
Author Organization [facility] Address [address] [place] [address] Care Team Providers Care Computer Repair Engineer Name Role Phone Celm Olvera MD Primary Care Provider [phone] Reason for Visit * Reason Onset Date Comments Appointment Related 10/23/2016 Check for fo llow up of pacer Encounter Details Date Type Department Care Team ([facility] Contact Info) Description 10/23/2016 Telephone [facility] Cardiology - [address] [place] [address] Pacemaker, Pace Appointment Related (Check [...] filedocumented in this encounter Care Teams Computer Repair Engineer Relationship Specialty Start Date End Date Clem Olvera MD [address] [place] [address] PCP - General 12/18/15 documented as of this encounter
--- OUTSIDE RECORDS SUMMARY | 2024-02-04 08:01 | XMS_ITS | Clinical Summary ---
Author Organization [facility] Address [address] [place] [address] Care Team Providers Care Health Actuary Name Role Phone Clem Olvera MD Primary [...] 05/04/2002 - 05/03/20032013 second pacemaker [facility] Medical History Medical History Date Comments [...] Advance Directives For more information, please contact: [phone] * Full Code (Latest Code Status on File) Date Activated Date Inactivated Comments 02/27/2016 8:49 02/28/2016 15:40 Question Answer Comments Reason for decision includes: Full code consistent with overall plan of care Who participated in the discussion? Not Discusse d Care Teams Health Actuary Relationship Specialty Start Date End Date Clem Olvera MD [address] [place] [address] PCP - General 12/18/15
--- OUTSIDE RECORDS SUMMARY | 2024-02-04 08:01 | XMS_ITS | Encounter Summary ---
Author Organization [facility] Address [address] [place] [address] Care Team Providers Care Shop Clerk Name Role Phone Clem Olvera MD Primary Care Provider [phone] Reason for Referral * (Routine) - Closed Specialty Diagnoses / Procedures Referred By Pedro madera Referred To Contact Beatrice De La Garza NP [address] [place] [phone] Referral ID Status Reason Start Date Expiration Date V isits Requested Visits Authorized [id number] Closed Specialty Services Required 02/27/2016 1 1 Comments You must contact us if we have not contacted you or you have missed your scheduled appointment. If you have any nursing questions, please don't hesitate to call the Cardiac Arrhythmia Service at The at [phone] or , extension [phone]. For any scheduling of appointments, please call [phone] or , extension [phone]. . * (Routine) - Closed Specialty Diagnoses / Procedures Referred By Pedro madera Referred To Contact Beatrice De La Garza NP [address] [phone] Referral ID Status Reason Start Date Expiration Date V isits Requested Visits Authorized [id number] Closed Specialty Services Required 02/27/2016 1 1 Comments You have a pre existing appointment with Dr. Olvera on March 05 at 2:00, please have Dr. Olvera check your incision at that visit. * (Routine) - Closed Specialty Diagnoses / Procedures Referred By Contbecca t Referred To Contact Beatrice De La Garza NP [address] [phone] Referral ID Status Reason Start Date Expiration Date V isits Requested Visits Authorized [id number] Closed Specialty Services Required 02/27/2016 1 1 [...] The Cardiology is located at [address] [facility] in [place] -Clinics are also held in [facility], and [place], [place] and [facility]. If you live in those areas, we will make arrangements for follow-up appointments in one of those clinics.. Encounter Details Date Type Department Care Team (Late st Contact Info) Description 02/27/2016 6:30 EDT - 02/28/2016 13:39 EDT Hospital Encounter [facility] Cardiac/Telemetry Unit [address] [place] [address] Gulshan Drummond MD PhD [address] [phone] Gulshan Montoya Sa, MD [address] [facility] [address] [place] [phone] AICD lead malfunction, subsequent encounter; ICD [...] around May 2013, when he was in [place], [place]. This triggered major cardiac workup including [...] then underwent a device upgrade to a SYNTHETIC RESIN OPERATOR-D device with biventricular pacing for his EF [...] been followed in cardiology outreach clinic at [facility] in [place]. Continued high pacing threshold on the epicardial [...] and plans to follow up with his Husbandry Technician in [place] in 6-8 weeks for which he will arrange once he has arrived in [place]. He has been provided with the implant [...] HGBA1C Discharge Follow Up Appointments Scheduled with [facility] Appointments Outside of [facility] We Will Schedule Studies We Will Schedule Appointments We Recommend but have not been Scheduled Beatrice De La Garza NP 02/27/2016 10:59 Associated attestation - Gulshan Montoya Sa, MD - 02/28/2016 1519 EDT Attending Attestation: I saw and evaluated the patient. I discussed the case with the resident/SHEETER OPERATOR/fellow and agree with the findings and plan [...] Notes * Lou Alfonso RN - 02/28/2016 7384 EDT Pt awaiting discharge. IV and tele was removed by primary nurse. This RN administered flu shot and provided flu information sheet. AVS and medications reviewed by RN with patient and . AVS statedcoreg was 3.25mg BID, which pt states no, they must have copied it down wrong. I'm not doing that.We've been through this in [place]. It makes me pass out. RN suggested checking with team, which pt denied and states I wont take it twice a day. He did agree to review this medication with his managing attorney and plans to remain on his home [...] neighbors. Patient has Medicare and [facility]. [facility] in [facility]. No needs identified at time of discharge. will provide transportation. Beatrice Rodriguez RN Case Manager #[id number] documented in this encounter H&P Notes * [...] around May 2013, when he was in [place], [place]. This triggered major cardiac workup including [...] point, his device was upgraded to a SYNTHETIC RESIN OPERATOR-D device with biventricular pacing. By the patient's [...] been followed in cardiology outreach clinic at [facility] in [place]. Continued high pacing threshold on the epicardial LV lead has caused a very rapid battery depletion. Dr. David Adams in [place] recommended against lead extraction and reimplant as [...] ??? Pacemaker insertion 2002 2013 second pacemaker [facility] Social History Family History Social History Substance Use Topics ??? Smoking status: Former Smoker Years: 35.00 Quit date: 1989 ??? Smokeless tobacco: Not on file ??? Alcohol use 6.6 oz/week 6 Cans of beer, 5 Glasses of wine per week , lives with , retired. Spends leong in [place]. Spends the chery in [place], [place]. Quit smoking in 1990. Has 2 [...] point, his device was upgraded to a SYNTHETIC RESIN OPERATOR-D device with biventricular pacing with a surgically [...] is sleeping. Will continue to monitor. Mady Burno RN 02/27/2016 22:40 * Plan of Care [...] EST) 03/12/2016 12:4 3 EST Scan 2 Television Production Clerk PROCEDURE/MINOR JUDD GICAL ORDERABLES * ECG REPORT - SCANNED (03/04/2016 14:06 EDT) 03/04/2016 14:0 6 EDT Scan 2 Television Production Clerk PROCEDURE/MINOR JUDD GICAL ORDERABLES * ECG REPORT - SCANNED (03/04/2016 14:06 EDT) 03/04/2016 14:0 6 EDT Scan 2 Television Production Clerk PROCEDURE/MINOR JUDD GICAL ORDERABLES * IMPLANT RECORD - SCANNED (03/04/2016 14:06 EDT) 03/04/2016 14:0 6 EDT Scan 2 Television Production Clerk PROCEDURE/MINOR JUDD GICAL ORDERABLES * ECG REPORT - SCANNED (03/01/2016 8:58 EDT) 03/01/2016 8:58 EDT Scan 2 Television Production Clerk PROCEDURE/MINOR JUDD GICAL ORDERABLES * ECG REPORT - SCANNED (03/01/2016 8:58 EDT) 03/01/2016 8:58 EDT Scan 2 Television Production Clerk PROCEDURE/MINOR JUDD GICAL ORDERABLES * CHEST PA [...] IMAGING ORDERABLES * HEMAGRAM (02/28/2016 5:44 EDT) [facility] WBC 9.84 4.0 - 10.4 K/cmm 02/28/2016 6:26 EDT [facility] RBC 4.42 4.36 - 5.78 M/cmm 02/28/2016 6:26 T [facility] Hemoglobin 14.2 13.8 - 17.3 gm/dl 02/28/2016 6:26 [facility] HCT 40.9 39.5 - 50.2 % 02/28/2016 6:26 [facility] MCV 93 81 - 95 fl 02/28/2016 6:26 [facility] MCH 32.1 27.6 - 33.0 pg 02/28/2016 6:26 [facility] MCHC 34.7 32.8 - 36.4 gm/dl 02/28/2016 6:26 [facility] RDW-CV 13.1 11.8 - 14.1 % 02/28/2016 6:26 [facility] RDW-SD 44.6 36.5 - 45.9 fl 02/28/2016 6:26 [facility] PLT 151 141 - 377 K/cmm 02/28/2016 6:26 [facility] MPV 11.2 9.5 - 12.7 fl 02/28/2016 6:26 [facility] Blood specimen (specimen) BLOOD SPECIMEN / Unknown 02/28/2016 5:44 EDT 02/28/2016 6:13 EDT Beatrice De La Garza NP HEMATOLOGY & PF4 ORDERABLES [facility] [address] [place] [address] * (ABNORMAL) CREATININE (02/28/2016 5:44 EDT) Creatinine 0.65(L) 0.66 - 1.25 mg/dl 02/28/2016 6:48 EDT [facility] GFR, Calculated 95 >60 ml/min/1.7 3m2 02/28/2016 6:48 EDT [facility] Comment: eGFR calculated using CKD-EPI equation for non Americans. Multiply eGFR by 1.16 for Americans. Blood specimen (specimen) BLOOD SPECIMEN / Unknown 02/28/2016 5:44 EDT 02/28/2016 6:13 EDT Beatrice De La Garza NP CHEMISTRY & B LOOD GAS ORDERABLES Performing Organization Address [facility]/ZIP Co de Phone Number [facility] [address] [place] [address] * BUN (02/28/2016 5:44 EDT) BUN 14 10 - 26 mg/dl 02/28/2016 6:48 EDT [facility] Blood specimen (specimen) BLOOD SPECIMEN / Unknown 02/28/2016 5:44 EDT 02/28/2016 6:13 EDT Beatrice De La Garza SHEETER OPERATOR CHEMISTRY & B LOOD GAS ORDERABLES Performing Organization Address [facility] Co de Phone Number [facility] [address] [place] [address] * ELECTROLYTES (02/28/2016 5:44 EDT) Sodium 138 136 - 145 mEq/L 02/28/2016 6:48 EDT [facility] Potassium 4.7 3.5 - 5.0 mEq/L 02/28/2016 6:48 EDT [facility] Chloride 104 96 - 110 mEq/L 02/28/2016 6:48 EDT [facility] CO2 25 22 - 32 mEq/L 02/28/2016 6:48 EDT [facility] Comment:Note new reference r hong 02/19/16 Blood specimen (specimen) BLOOD SPECIMEN / Unknown 02/28/2016 5:44 EDT 02/28/2016 6:13 EDT Beatrice De La Garza NP CHEMISTRY & B LOOD GAS ORDERABLES [facility] [address] [place] [address] * PORTABLE CHEST 1 VIEW (02/27/2016 12:46 [...] 12:41 EDT) 02/27/2016 12:4 1 EDT Narrative [facility] EKG - 02/28/2016 8:57 EDT ? The ? Test Date: ?2016-02-27 Pat Name: ? NABIL IGLESIAS ? Department: ?? [facility] ? Room: ? MW514 Gender: ? M ?Manager Cardiac Cath: ?? [id number] : ?1940 ? Requested By: KAIN REED L Order Number: [id number] ? Reading MD: ?? BRAYAN CUENCA MD ? Measurements Intervals ?[place] ? Rate: ? 63 ? P: ?15 OK: ? 159 ?QRS: ?234 QRSD: ? 156 [...] Date: 2016-02-27 Pat Name: NABIL IGLESIAS Department: [place] [address] Room: [facility] Gender: M Manager Cardiac Cath: [id number] : 1940 Requested By: KAIN Gallagher Order Number: [id number] Reading MD: BRAYAN CUENCA MD Measurements Intervals [place] Rate: 63 P: 15 OK: 159 QRS: 234 QRSD: 156 T: 15 QT: 479 QTc: 493 Interpretive Statements ELECTRONIC VENTRICULAR PACEMAKER Compared to ECG 02/27/2016 08:10:34 No significant changes I reviewed the tracing and have either agreed or edited the findings inthis report. Electronically Signed On 02-28-16 08:57:02 EDT by BRAYAN BEEBE. Gulshan Drummond MD PhD CARDIA C ECG ORDERABLES [facility] EKG * PROTIME (02/27/2016 8:45 EDT) Pro Time 12.3 10.3 - 13.1 secs 02/27/2016 9:10 EDT [facility] Comment: New prothrombin t josue range effective 01/29/16 I.N.R. 1.1 0.9 - 1.1 Ratio 02/27/2016 9:10 EDT [facility] Comment: Moderate Intensity Coumadin INR = 2.0-3.0 Adjustments in anticoagulant therapy dose should be based upon the INR and NOT the Pro Time. Blood specimen (specimen) BLOOD SPECIMEN / Unknown 02/27/2016 8:45 EDT 02/27/2016 8:54 EDT Gulshan Drummond MD PhD HEMATO LOGY & PF4 ORDERABLES [facility] [address] [place] [address] * HEMAGRAM (02/27/2016 8:45 EDT) WBC 6.47 4.0 - 10.4 K/cmm 02/27/2016 8:57 EDT [facility] RBC 4.51 4.36 - 5.78 M/cmm 02/27/2016 8:57 EDT [facility] Hemoglobin 14.7 13.8 - 17.3 gm/dl 02/27/2016 8:57 EDT [facility] HCT 41.7 39.5 - 50.2 % 02/27/2016 8:57 EDT [facility] MCV 93 81 - 95 fl 02/27/2016 8:57 EDT [facility] MCH 32.6 27.6 - 33.0 pg 02/27/2016 8:57 EDT [facility] MCHC 35.3 32.8 - 36.4 gm/dl 02/27/2016 8:57 T [facility] RDW-CV 13.1 11.8 - 14.1 % 02/27/2016 8:57 EDT [facility] RDW-SD 44.0 36.5 - 45.9 fl 02/27/2016 8:57 EDT [facility] PLT 176 141 - 377 K/cmm 02/27/2016 8:57 EDT [facility] MPV 10.7 9.5 - 12.7 fl 02/27/2016 8:57 EDT [facility] Blood specimen (specimen) BLOOD SPECIMEN / Unknown 02/27/2016 8:45 EDT 02/27/2016 8:54 EDT Gulshan Drummond MD PhD HEMATO LOGY & PF4 ORDERABLES [facility] [address] [place] [address] * ELECTROLYTES (02/27/2016 8:45 EDT) Sodium 142 136 - 145 mEq/L 02/27/2016 9:13 EDT [facility] Potassium 4.7 3.5 - 5.0 mEq/L 02/27/2016 9:13 EDT [facility] Chloride 103 96 - 110 mEq/L 02/27/2016 9:13 EDT [facility] CO2 27 22 - 32 mEq/L 02/27/2016 9:13 EDT [facility] Comment:Note new reference r hong 02/19/16 Blood specimen (specimen) BLOOD SPECIMEN / Unknown 02/27/2016 8:45 EDT 02/27/2016 8:54 EDT Gulshan Drummond MD PhD CHEMIS TRY & BLOOD GAS ORDERABLES Performing Organization Address [facility] de Phone Number [facility] [address] [place] [address] * CREATININE (02/27/2016 8:45 EDT) Creatinine 0.69 0.66 - 1.25 mg/dl 02/27/2016 9:13 EDT [facility] GFR, Calculated 93 >60 ml/min/1.7 3m2 02/27/2016 9:13 EDT [facility] Comment: eGFR calculated using CKD-EPI equation for non Americans. Multiply eGFR by 1.16 for Americans. Blood specimen (specimen) BLOOD SPECIMEN / Unknown 02/27/2016 8:45 EDT 02/27/2016 8:54 EDT Gulshan Drummond MD PhD CHEMIS TRY & BLOOD GAS ORDERABLES Performing Organization Address City/[facility] Co de Phone Number [facility] [address] [place] [address] * BUN (02/27/2016 8:45 EDT) BUN 17 10 - 26 mg/dl 02/27/2016 9:13 EDT [facility] Blood specimen (specimen) BLOOD SPECIMEN / Unknown 02/27/2016 8:45 EDT 02/27/2016 8:54 EDT Gulshan Drummond MD PhD CHEMIS TRY & BLOOD GAS ORDERABLES [facility] [address] [place] [address] * EKG 12-LEAD (02/27/2016 8:08 EDT) 02/27/2016 8:08 EDT Narrative [facility] EKG - 02/28/2016 9:01 EDT ? The ? Test Date: ?2016-02-27 Pat Name: ? NABIL IGLESIAS ? Department: ?? [facility] ? Room: ? [id number] Gender: ? M ?Manager Cardiac Cath: ?? [id number] : ?1940 ? Requested By: MARCIA Boo Order Number: [id number] ? Julia WRIGHT: ?? BRAYAN CUENCA MD ? Measurements Intervals ?[place] ? Rate: ? 69 ? P: ?147 OK: ? 134 ?QRS: ?-67 QRSD: ? 160 ?T: ?-59 QT: ? 434 ? QTc: ?467 ? Interpretive Statements ELECTRONIC ATRIAL PACEMAKER ELECTRONIC VENTRICULAR PACEMAKER Compared to ECG 02/27/2016 08:08:46 No significant changes I reviewed the tracing and have either agreed or edited the findings in this report. Electronically Signed On 02-28-16 09:01:04 EDT by BRAYAN CUENCA MD. Procedure Note Baryan Cuenca MD - 02/28/2016 The Test Date: 2016-02-27 Pat Name: NABIL IGLESIAS Department: [facility] Room: [id number] Gender: M Manager Cardiac Cath: [id number] : 1940 Requested By: MARCIA Boo Order Number: [id number] Reading MD: BRAYAN CUENCA MD Measurements Intervals [place] Rate: 69 P: 147 OK: 134 QRS: -67 QRSD: 160 T: -59 QT: 434 QTc: 467 Interpretive Statements ELECTRONIC ATRIAL PACEMAKER ELECTRONIC VENTRICULAR PACEMAKER Compared to ECG 02/27/2016 08:08:46 No significant changes I reviewed the tracing and have either agreed or edited the findings inthis report. Electronically Signed On 02-28-16 09:01:04 EDT by BRAYAN BEEBE. Navdeep Hurd MD CARDIAC ECG ORD ERABLES [facility] EKG documented in this encounter [...] Reason: Other - Comment: pt already took SHIPPING AND RECEIVING SPECIALIST, takes other meds at HS) 921 [...] Reason: Other - Comment: pt already took SHIPPING AND RECEIVING SPECIALIST, takes other meds at HS)2100 (Given - Provider: Mady Bruno RN) spironolactone (ALDACTONE) tablet 12.5 mg 12.5 mg, oral, DAILY, First dose on Thu02/27/16 at 1245, Until Discontinued, Routine 1306 (Not Given - Provider: Nneka Stuart RN - Reason: Other - Comment: pt already took SHIPPING AND RECEIVING SPECIALIST, takes other meds at HS)2102 (Given - Provider: Mady Bruno RN) tamsulosin (FLOMAX) capsule 0.4 mg 0.4 mg, oral, DAILY, First dose on Thu02/27/16 at 1245, Until Discontinued, Routine 1306 (Not Given - Provider: Nneka Stuart RN - Reason: Other - Comment: pt already took SHIPPING AND RECEIVING SPECIALIST, takes other meds at HS) 921 [...] documented in this encounter Care Teams Shop Clerk Relationship Specialty Start Date End Date Clem Olvera MD [address] [place] [address] PCP - General 12/18/15 documented as of this encounter
--- OUTSIDE RECORDS SUMMARY | 2024-02-04 08:01 | XMS_ITS | Encounter Summary ---
Author Organization 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 Procedures IMPLANTABLE CARDIAC DEFIBRILLATOR PROCEDURE Navdeep Hurd MD [address] [place], [place] [address] [address] [place] [address] Referral ID Status Reason Start Date Expiration Date Visits Re quested Visits Authorized [id number] Closed 02/13/2016 1 1 Encounter Details Date Type Department Care Team (Latest Contact Info) Description 02/13/2016 Pre-Procedure Orders Encounter [facility] [address] [place], [place] [address] Navdeep Hurd MD [address] [facility] [address] [place] [address] ICD (implantable cardioverter-defibril lator) battery [...] 8 EDT Narrative 02/27/2016 15:17 EDT *Cardiology* [address] [place] [address] Lead Revision (Report amended ) Patient: Nabil Iglesias ?Study Date: ?02/27/2016 ? Accession #: ? [id number] : ? 1940 Referring: Clem Olvera Attending: [...] therefore over an 0.35 glide wire a Nikc MENDOZAW 6F ([facility]) 6 mm-40 mm balloon [...] fascia. The leads were connected to a GLOBAL CMO-D device. Device and Lead detail in table [...] Implanted device: Medtronic - Viva Quad XT GLOBAL CMO-D DF4 - Serial number: [id number] Explanted device: Medtronic - Viva XT GLOBAL CMO-D DF4 - Serial number: [id number]. LEAD PARAMETERS + + + + + [...] + + + + + Serial number [id number] ? [id number] ?? [id number] ?? [id number] ? + + + + [...] Gulshan Drummond MD - 05/12/2016 *Cardiology* [address] [place] [address] Lead Revision (Report amended ) Patient: Nabil [...] therefore over an 0.35 glide wire a [facility] 6[facility] ([facility]) 6 mm-40 mm balloon [...] fascia. The leads were connected to a GLOBAL CMO-D device. Device and Lead detail in table [...] Implanted device: Medtronic - Viva Quad XT GLOBAL CMO-D DF4 - Serial number: [id number] Explanted device: Medtronic - Viva XT GLOBAL CMO-D DF4 - Serial number: [id number]. LEAD PARAMETERS + + + + + + Lead # 1 2 3 4 + + + + + + Chamber RA RV LV LV + + + + + + Date 07/19/2002 07/18/2013 02/27/2016 07/18/2013 implanted + + + + + + Model St. 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
--- OUTSIDE RECORDS SUMMARY | 2024-02-04 08:01 | XMS_ITS | Encounter Summary ---
Author Organization [facility] Address [address] [place] [address] Care Team Providers Care Rn Clinical Name Role Phone Clem Olvera MD Primary Care Provider [phone] Reason for Visit * Reason Onset Date Comments Other 04/04/2019 Transfer request for Pacer Care at [facility] Encounter Details Date Type Department Care Team (Late st Contact Info) Description 04/04/2019 Telephone [facility] [address] [place] [address] Giselle Hill, ARSON INVESTIGATOR Other (Transfer request for Pacer Care at [facility]) Social History Tobacco Use Types Packs/Day Years [...] 04/04/2019 1503 EST I went into the [employer] Website and released pt to [facility] Pacer Clinic as requested. * Telephone Encounter - Suze Reynoso - 04/04/2019 1342 EST PT WILL BE HAVING HIS PACER CARE DONE AT [facility], PLEASE RELEASE HIS REMOTE MONITORING SO THAT THEY CAN PICK IT UP documented in this encounter Plan of Treatment Not on file documented as of this encounter Visit Diagnoses Not on filedocumented in this encounter Care Teams Rn Clinical Relationship Specialty Start Date End Date Clem Olvera MD [address] [place] [address] PCP - General 12/18/15 documented as of this encounter
--- OUTSIDE RECORDS SUMMARY | 2024-02-04 08:01 | XMS_ITS | Referral Summary ---
Author Organization [facility] Address [address] [place] [address] Care Team Providers Care Quarter Lining Smoother Name Role Phone Clem Olvera MD Primary Care Provider [phone] Allergies No known active allergies Medications Medication [...] Advance Directives For more information, please contact: [phone] * Full Code (Latest Code Status on File) Date Activated Date Inactivated Comments 02/27/2016 8:49 02/28/2016 15:40 Question Answer Comments Reason for decision includes: Full code consistent with overall plan of care Who participated in the discussion? Not Discusse d Care Teams Quarter Lining Smoother Relationship Specialty Start Date End Date Clem Olvera MD [address] [place] [id number] PCP - General 12/18/15
--- OUTSIDE RECORDS SUMMARY | 2024-02-04 08:02 | XMS_ITS | Encounter Summary ---
[place] [address] Care Team Providers Care Sheet Metal Assembler And Riveter Name Role Phone Donny Cooper MD Primary Care Provider [phone] Encounter Details Date Type Department Care Team [...] st Contact Info) Description 05/02/2024 10:00 [facility] Encounter Non[place] [address] Arrived documented as of this encounter Visit Diagnoses Not on filedocumented in this encounter Care Teams Sheet Metal Assembler And Riveter Relationship Specialty Start Date End Date Donny Cooper MD [address] [place] [address] PCP - General Family Medicine 02/25/19 documented as of this encounter
--- OUTSIDE RECORDS SUMMARY | 2024-02-04 08:02 | XMS_ITS | Encounter Summary ---
[place] [address] Care Team Providers Care Co Founder And Chief Strategy Officer Name Role Phone Donny Cooper MD Primary Care Provider [phone] Encounter Details Date Type Department Care Team (Latest Contact Info) Description 08/06/2023 10:00 AM EDT - 08/06/2023 11:59 PM EDT Hospital Encounter Non[place] [address] Discharge Disposition: Home Social History Tobacco Use [...] st Contact Info) Description 05/02/2024 10:00 AM [facility] Hospital Encounter Non-[place] [address] Arrived documented as of this encounter Visit Diagnoses Not on filedocumented in this encounter Care Teams Co Founder And Chief Strategy Officer Relationship Specialty Start Date End Date Donny Cooper MD [address] [place] [address] PCP - General Family Medicine 02/25/19 documented as of this encounter
--- OUTSIDE RECORDS SUMMARY | 2024-02-04 08:02 | XMS_ITS | Encounter Summary ---
Author Organization [facility] [place] [address] Care Team Providers Care Examination Grader Name Role Phone Marques Martinez MD Primary Care Provider [phone] Reason for Visit * Reason Comments Follow Up Fracture PATELLA FX DOI 03/23 10 Encounter Details Date Type Department Care Team (Late st Contact Info) Description 10/09/2010 12:40 PM EDT Office [place] [address] Jairon Gustafson MD [facility] [place] [address] Jose Francisco Bee PA [facility] [place] [address] Quadriceps tendon rupture (Primary Dx) Discharge Disposition: [...] st Contact Info) Description 05/02/2024 10:00 AM [facility] Hospital Encounter Non-[place] [address] Arrived documented as of this encounter Visit Diagnoses Diagnosis Quadriceps tendon rupture- Primary Sprain and strain of other specified sites of knee and leg documented in this encounter Care Teams Examination Grader Relationship Specialty Start Date End Date Marques Martinez MD [address] [place] [address] PCP - General 04/01/10 04/08/11 documented as of this encounter
--- OUTSIDE RECORDS SUMMARY | 2024-02-04 08:02 | XMS_ITS | Encounter Summary ---
Author Organization [facility] [place] [address] Care Team Providers Care Housing Officer Name Role Phone Marques Martinez MD Primary Care Provider [phone] Encounter Details Date Type Department Care Team (Late st Contact Info) Description 03/30/2010 [place] [address] Javier Barajas MD [facility] [place] [address] Social History Tobacco Use Types Packs/Day Years [...] AM EST Hospital Encounter [place] [address] Arrived documented as of this encounter Procedures [...] AM EST Jairon Fenton MD [facility]LES [facility] * (ABNORMAL) CREATININE, SERUM (04/01/2010 6:09 AM [...] Fenton MD CHEMISTRY ORDERABLES Performing Organization Address [facility] de Phone Number CERNER CH[facility]STOSENNI[facility] * BUN (04/01/2010 6:09 AM EST) Blood Urea Nitrogen 12 10 - 20 mg/dL [facility]ILL[facility] Blood specimen (specimen) 04/01/2010 6:09 AM EST 04/01/2010 6:09 AM EST Jairon Fenton MD CHEMISTRY ORDERABLES Performing Organization Address [facility] de Phone Number CERNER CHRISTOSENNIUM * (ABNORMAL) [...] MD HEMATOLOGY ORDERABLE S Performing Organization Address [facility] de Phone Number CERIVIS MILLENNIUM * HEPATIC FUNCTION PANEL (03/30/2010 6:05 [...] Fenton MD CHEMISTRY ORDERABLES Performing Organization Address [facility] Phone Number CERIVIS MILLENNIUM * ELECTROLYTE PANEL [...] Fenton MD CHEMISTRY ORDERABLES Performing Organization Address [facility] Co de Phone Number CERIVIS MILLENNIUM * CREATININE, SERUM (03/30/2010 6:05 PM EST) Creatinine 0.87 0.80 - 1.50 mg/dL [facility] Est Glomerular Filtration Rate >60 >=60 [facility] Comment: The National Kidney Disease Education Program [...] Urea Nitrogen 18 10 - 20 mg/dL [facility] Blood specimen (specimen) 03/30/2010 6:05 PM EST 03/30/2010 6:13 PM EST Jairon Fenton MD CHEMISTRY ORDERABLES Performing Organization Address [facility] de Phone Number DEJA MOSQUEDAIUM * APTT (03/30/2010 6:05 PM EST) Partial Thromboplastin Time 26 25 - 37 sec [facility]ERNER MILLENNIUM Comment: Recommended therapeutic PTT range for full dose unfractionated heparin is 80-114 seconds. Blood specimen (specimen) 03/30/2010 6:05 PM EST 03/30/2010 6:14 PM EST Jairon Fenton MD HEMATOLOGY ORDERABLE S Performing Organization Address [facility] Phone Number DEJA SEGOVIA * PROTIME-INR (03/30/2010 6:05 PM EST) Prothrombin Time 14.2 12.3 - 14.7 sec [facility] Comment: [facility] Transfusion Committee Guidelines: INR less than 2.0, PTT less than OR equal to 43.5 seconds, or Fibrinogen greater than or equal to 100 mg/dl indicate adequate procoagulant activity for hemostasis in patients without underlying bleeding disorders. International Normalization Ratio 1.1 0.9 - 1.1 [facility] Blood specimen (specimen) 03/30/2010 6:05 PM EST 03/30/2010 6:14 PM EST Jairon Fenton MD HEMATOLOGY ORDERABLE S Performing Organization Address [facility] de Phone Number DEJA SEGOVIA * (ABNORMAL) [...] Standard Deviation 44.2 35.0 - 46.0 fL [facility] RDW coefficient of variation 13.1 10.9 - 14.4 % [facility] Mean Platelet Volume 10.6 9.0 - 12.0 fL [facility] Blood specimen (specimen) 03/30/2010 6:05 PM EST 03/30/2010 6:13 PM EST Jairon Fenton MD HEMATOLOGY ORDERABLE S Performing Organization Address City/[facility] Co de Phone Number [facility] * REFLEX LAB-ANTIBODY SCREEN (03/30/2010 3:17 PM EST) [facility] Ab Screen Interp Negative [facility] Expires at [id number] on: [id number] [facility] Blood specimen (specimen) 03/30/2010 3:17 PM EST 03/30/2010 3:17 PM EST Javier Barajas MD BLOOD BANK LAB ORDER PRECIOUS Performing Organization Address [facility] Co de Phone Number [facility] * REFLEX LAB-ABO/RH (03/30/2010 3:17 PM EST) [facility] ABORH Type A Pos [facility] Blood specimen (specimen) 03/30/2010 3:17 PM EST 03/30/2010 3:17 PM EST Javier Barajas MD BLOOD BANK LAB ORDER PRECIOUS Performing Organization Address [facility] Co de Phone Number [facility] * ELECTROLYTE PANEL (03/30/2010 2:50 PM EST) [facility] Sodium 135 135 - 145 mmol/L [facility] Potassium 4.3 3.5 - 5.0 mmol/L [facility] Comment: Please note: ??Patients with WBC [...] PM EST Javier Barajas MD CHEMISTRY ORDERABLES [facility] * CREATININE, SERUM (03/30/2010 2:50 PM EST) [...] Barajas MD CHEMISTRY ORDERABLES Performing Organization Address [facility] Phone Number [facility] * BUN (03/30/2010 2:50 PM EST) Blood Urea Nitrogen 18 10 - 20 mg/dL [facility] Blood specimen (specimen) 03/30/2010 2:50 PM EST 03/30/2010 3:05 PM EST Javier Barajas MD CHEMISTRY ORDERABLES Performing Organization Address [facility] Phone Number [facility] * GLUCOSE, RANDOM (03/30/2010 2:50 PM EST) Glucose 95 <=199 mg/dL [facility] Comment:Diabetes: >=200 mg/d L plus symptoms Blood specimen (specimen) 03/30/2010 2:50 PM EST 03/30/2010 3:05 PM EST Javier Barajas MD CHEMISTRY ORDERABLES Performing Organization Address [facility] Phone Number [facility] * APTT (03/30/2010 2:50 PM EST) Partial Thromboplastin Time 25 25 - 37 sec [facility] Comment: Recommended therapeutic PTT range for full dose unfractionated heparin is 80-114 seconds. Blood specimen (specimen) 03/30/2010 2:50 PM EST 03/30/2010 3:06 PM EST Javier Barajas MD HEMATOLOGY ORDERABLE S Performing Organization Address [facility] Phone Number [facility] * PROTIME-INR (03/30/2010 2:50 PM EST) Prothrombin Time 14.1 12.3 - 14.7 sec [facility] Comment: [facility] Transfusion Committee Guidelines: INR less than [...] on filedocumented in this encounter Care Teams Housing Officer Relationship Specialty Start Date End Date Marques Martinez MD [address] [place] [address] PCP - General 04/01/10 04/08/11 documented as of this encounter
--- OUTSIDE RECORDS SUMMARY | 2024-02-04 08:02 | XMS_ITS | Encounter Summary ---
Author Organization [facility] [place] [address] Care Team Providers Care Senior Principal Architect Name Role Phone Donny Cooper MD Primary Care Provider [phone] Encounter Details Date Type Department Care Team (Latest Contact Info) Description 06/13/2020 12:35 PM EST - 06/13/2020 11:59 PM EST Hospital Encounter Non-[place]vasive [place] [address] Alber Seals MD [facility] [place] [address] Cardiomyopathy, primary Discharge Disposition: Home Social History [...] AM EST Hospital Encounter Non-Invasive [place] [address] Arrived documented as of this encounter Procedures Procedure Name Priority Date/Time Associated Diagnosis Comments ICD INTERROGATION 3 MONTH Routine 06/13/2020 12:36 PM EST Cardiomyopathy, primary documented in this encounter Results * ICD INTERROGATION 3 MONTH (06/13/2020 12:36 PM EST) Anatomical Region Laterality Modality Other Narrative 06/14/2020 10:38 AM EST Cardiac Device Remote Monitoring Report Summary [employer] 06/14/20 Device: SILK TOP HAT BODY MAKER-D Model: VIVA QUAD Battery: 2.96 v, estimated longevity 3 years, 11 months Pacing percentage: 78% ventricular paced Events: The presenting rhythm is atrial paced with biventricular pacing and frequent ventricular premature contractions No significant arrhythmias Impression Normal device function; suboptimal SILK TOP HAT BODY MAKER pacing likely secondary to frequent PVCs. Should consider in clinic follow-up for further evaluation Follow Up As per schedule - in-clinic and remote ALBER SEALS MD Alber Seals MD IMPLANTABLE CARDIAC DEVICE documented in this encounter Visit Diagnoses Diagnosis Cardiomyopathy, primary Other primary cardiomyopathies documented in this encounter Care Teams Senior Principal Architect Relationship Specialty Start Date End Date Donny Cooper MD [address] [place] [address] PCP - General Family Medicine 02/25/19 documented as of this encounter
--- OUTSIDE RECORDS SUMMARY | 2024-02-04 08:02 | XMS_ITS | Encounter Summary ---
[place] [address] Care Team Providers Care Club Manager Name Role Phone Donny Cooper MD Primary Care Provider [phone] Encounter Details Date Type Department Care Team (Late st Contact Info) Description 12/28/2023 Notes Only Cardiology at [address] [address] Kanika Shell Social History Tobacco Use Types [...] st Contact Info) Description 05/02/2024 10:00 AM [facility] Hospital Encounter Non-[place] [address] Arrived documented as of this encounter Visit Diagnoses Not on filedocumented in this encounter Care Teams Club Manager Relationship Specialty Start Date End Date Donny Cooper MD [address] [place] [address] PCP - General Family Medicine 02/25/19 documented as of this encounter
--- OUTSIDE RECORDS SUMMARY | 2024-02-04 08:02 | XMS_ITS | Encounter Summary ---
Author Organization [facility] [place] [address] Care Team Providers Care German Teacher Name Role Phone Marques Martinez MD Primary Care Provider [phone] Encounter Details Date Type Department Care Team (Late st Contact Info) Description 06/12/2010 2:10 PM EST Office [place] [phone] Jairon Fenton MD [facility] [place] [address] Discharge Disposition: Home Social History Tobacco Use [...] AM EST Hospital Encounter Non-Invasive [place] [address] Arrived documented as of this encounter Visit Diagnoses Not on filedocumented in this encounter Care Teams German Teacher Relationship Specialty Start Date End Date Marques Martinez MD [address] [place] [address] PCP - General 04/01/10 04/08/11 documented as of this encounter
--- OUTSIDE RECORDS SUMMARY | 2024-02-04 08:02 | XMS_ITS | Encounter Summary ---
Author Organization [facility] Address [address] [place] [address] Care Team Providers Care Anodic Treater Name Role Phone Unavailable Primary Care Provider Unavailabl e Encounter Details Date Type Department Care Team (Late st Contact Info) Description 12/02/2012 Results Only [facility] ([facility] [address] [place] [id number] Satinder Edwards MD [address] [place] [address] Social History Tobacco Use Types Packs/Day Years [...] ? NABIL IGLESIAS ? Accession #: ? [id number] ? : ? 1940 (Age: 72) ??M [...] MD PATHOLOGY ORDERABLE S Performing Organization Address City/State/[facility] Co de Phone Number [facility] [address] [place] [address] documented in this encounter Visit Diagnoses Not on filedocumented in this encounter
--- OUTSIDE RECORDS SUMMARY | 2024-02-04 08:02 | XMS_ITS | Encounter Summary ---
[place] [address] Care Team Providers Care Digital Media Associate Name Role Phone Marques Martinez MD Primary Care Provider [phone] Encounter Details Date Type Department Care Team (Late st Contact Info) Description 10/03/2010 Abstract [place] [address] Marina Orosco, JADON Social History Tobacco Use Types Packs/Day Years Used Date Smoking Tobacco: Never Assessed Sex and Gender Information Value Date Recorded Sex Assigned at Not on file Gender Identity Not on file Sexual Orientation Not on file documented as of this encounter Plan of Treatment Upcoming Encounters Date Type Department Care Team (Late st Contact Info) Description 05/02/2024 10:00 AM [facility] Hospital Encounter Non-[place]vasive [place] [address] Arrived documented as of this encounter Visit Diagnoses Not on filedocumented in this encounter Care Teams Digital Media Associate Relationship Specialty Start Date End Date Marques Martinez MD [address] [place] [address] PCP - General 04/01/10 04/08/11 documented as of this encounter
--- OUTSIDE RECORDS SUMMARY | 2024-02-04 08:02 | XMS_ITS | Encounter Summary ---
Author Organization [facility] Address [address] [place] [address] Care Team Providers Care Process Development Engineer Name Role Phone Unavailable Primary Care Provider Unavailabl e Encounter Details Date Type Department Care Team (Late st Contact Info) Description 05/06/2001 Results Only [facility] [address] [place] [address] Hernandez Partida MD [address] [place] [address] Social History Tobacco Use Types Packs/Day Years [...] (B). ??(Naty Caal)/[facility] End of Report [facility] 05/06/2001 05/07/2001 9:2 5 EST Hernandez Partida MD PATHOLOGY ORDERABLES [facility] [address] [place] [address] documented in this encounter Visit Diagnoses Not on filedocumented in this encounter
--- OUTSIDE RECORDS SUMMARY | 2024-02-04 08:02 | XMS_ITS | Encounter Summary ---
Author Organization [facility] [place] [address] Care Team Providers Care Elevator Constructor Helper Name Role Phone Marques Martinez MD Primary Care Provider [phone] Encounter Details Date Type Department Care Team (Late st Contact Info) Description 10/09/2010 11:35 AM EDT - 10/09/2010 11:59 PM EDT Hospital Encounter XRay at [address] [place] [address] Social History Tobacco Use Types Packs/Day Years [...] AM EST Hospital Encounter Non-Invasive Cardiology Lab [facility] [place] [address] Arrived documented as of this encounter Visit Diagnoses Not on filedocumented in this encounter Care Teams Elevator Constructor Helper Relationship Specialty Start Date End Date Marques Martinez MD [address] [place] [address] PCP - General 04/01/10 04/08/11 documented as of this encounter
--- OUTSIDE RECORDS SUMMARY | 2024-02-04 08:02 | XMS_ITS | Encounter Summary ---
[place] [address] Care Team Providers Care Category Specialist Name Role Phone Donny Cooper MD Primary Care Provider [phone] Encounter Details Date Type Department Care Team (Latest Contact Info) Description 11/04/2023 10:00 AM EDT - 11/04/2023 11:59 PM EDT Hospital Encounter Non-Invasive [place] [address] Discharge Disposition: Home Social History Tobacco Use [...] st Contact Info) Description 05/02/2024 10:00 AM [facility] Hospital Encounter Non-Invasive [place] [address] Arrived documented as of [...] on filedocumented in this encounter Care Teams Category Specialist Relationship Specialty Start Date End Date Donny Cooper MD [address] [place] [address] PCP - General Family Medicine 02/25/19 documented as of this encounter
--- OUTSIDE RECORDS SUMMARY | 2024-02-04 08:02 | XMS_ITS | Encounter Summary ---
Author Organization [facility] [place] [address] Care Team Providers Care High Speed Printer Operator Name Role Phone Marques Martinez MD Primary Care Provider Encounter Details Date Type Department Care Team (Late st Contact Info) Description 09/11/2010 Orders [place] [address] Jairon Fenton MD [facility] [place] [address] Fracture of patella, left, closed (Primary Dx) [...] st Contact Info) Description 05/02/2024 10:00 AM [facility] Hospital Encounter Non-[place] [address] Arrived documented as of this encounter Visit Diagnoses Diagnosis Fracture of patella, left, closed- Primary Closed fracture of patella documented in this encounter Care Teams High Speed Printer Operator Relationship Specialty Start Date End Date Marques Martinez MD [address] [place] [address] PCP - General 04/01/10 04/08/11 documented as of this encounter
--- OUTSIDE RECORDS SUMMARY | 2024-02-04 08:02 | XMS_ITS | Encounter Summary ---
Author Organization [facility] [address] Care Team Providers Care English Professor Name Role Phone Clem Olvera MD Primary Care Provider [phone] Reason for Visit * Reason Comments Follow Up Fracture SP PATELLA FX DO12/12 DOI 03/30/10 Encounter Details Date Type Department Care Team (Late st Contact Info) Description 04/09/2011 1:30 PM EST Office [place] [address] Jairon Gustafson MD [facility] [place] [address] Jose Francisco Bee PA [facility] [place] [address] Patella fracture (Primary Dx) Discharge Disposition: Home [...] documented in this encounter Progress Notes * Jiaron Gustafson MD - 04/09/2011 2:12 PM EST [...] AM EST Hospital Encounter Non-[place] [address] Arrived documented as of this encounter Visit Diagnoses Diagnosis Patella fracture- Primary Closed fracture of patella documented in this encounter Care Teams English Professor Relationship Specialty Start Date End Date Clem Olvera MD [address] [place] [address] PCP - General 04/09/11 02/24/19 documented as of this encounter
--- OUTSIDE RECORDS SUMMARY | 2024-02-04 08:02 | XMS_ITS | Encounter Summary ---
Author Organization [facility] [place] [address] Care Team Providers Care Foundation Relations Manager Name Role Phone Marques Martinez MD Primary Care Provider [phone] Encounter Details Date Type Department Care Team (Late st Contact Info) Description 05/01/2010 3:10 PM EST Office [place] [address] Jairon Fenton MD [facility] [place] [address] Discharge Disposition: Home Social History Tobacco Use [...] AM EST Hospital Encounter Non-[place] [address] Arrived documented as of this encounter Visit Diagnoses Not on filedocumented in this encounter Care Teams Foundation Relations Manager Relationship Specialty Start Date End Date Marques Martinez MD [address] [place] [address] PCP - General 04/01/10 04/08/11 documented as of this encounter
--- OUTSIDE RECORDS SUMMARY | 2024-02-04 08:02 | XMS_ITS | Encounter Summary ---
[place] [address] Care Team Providers Care Sewing Supervisor Name Role Phone Donny Cooper MD Primary Care Provider [phone] Encounter Details Date Type Department Care Team (Late st Contact Info) Description 01/05/2024 Telephone Cardiology at [address] [address] Kanika Shell Social History Tobacco [...] AM EST Hospital Encounter Non-Invasive [place] [address] Arrived documented as of this encounter Visit Diagnoses Not on filedocumented in this encounter Care Teams Sewing Supervisor Relationship Specialty Start Date End Date Donny Cooper MD [address] [place] [address] PCP - General Family Medicine 02/25/19 documented as of this encounter
--- OUTSIDE RECORDS SUMMARY | 2024-02-04 08:02 | XMS_ITS | Encounter Summary ---
[place] [address] Care Team Providers Care Spin Table Operator Name Role Phone Marques Martinez MD Primary Care Provider [phone] Encounter Details Date Type Department Care Team (Late st Contact Info) Description 05/01/2010 2:40 PM EST Procedure visit [place] [address] Social History Tobacco Use Types Packs/Day Years [...] AM EST Hospital Encounter Non-[place] [address] Arrived documented as of this encounter Visit Diagnoses Not on filedocumented in this encounter Care Teams Spin Table Operator Relationship Specialty Start Date End Date Marques Martinez MD [address] [place] [address] PCP - General 04/01/10 04/08/11 documented as of this encounter
--- OUTSIDE RECORDS SUMMARY | 2024-02-04 08:02 | XMS_ITS | Encounter Summary ---
[place] [address] Care Team Providers Care Shop Foreman Name Role Phone Donny Cooper MD Primary Care Provider [phone] Encounter Details Date Type Department Care Team (Latest Contact Info) Description 04/03/2023 10:00 AM EST - 04/03/2023 11:59 PM [facility] Hospital Encounter Non-[place]vasive [place] [address] Discharge Disposition: Home Social History Tobacco Use [...] st Contact Info) Description 05/02/2024 10:00 AM [facility] Hospital Encounter Non-[place] [address] Arrived documented as of [...] on filedocumented in this encounter Care Teams Shop Foreman Relationship Specialty Start Date End Date Donny Cooper MD [address] [place] [address] PCP - General Family Medicine 02/25/19 documented as of this encounter
--- OUTSIDE RECORDS SUMMARY | 2024-02-04 08:02 | XMS_ITS | Clinical Summary ---
Author Organization [facility] [place] [address] Care Team Providers Care Wrapper Dipper Name Role Phone Donny Cooper MD Primary Care Provider +[phone] Allergies No known active allergies Medications Medication [...] Care Team Description 02/02/2024 10:00 AM EDT - 02/02/2024 11:59 PM EDT Hospital Encounter [place] [address] Arrived Discharge Disposition: Home 01/05/2024 Telephone Cardiology at [address] [address] Kanika Shell 12/28/2023 Notes Only Cardiology at [address] [address] Kanika Shell 11/04/2023 10:00 AM EDT - 11/04/2023 11:59 PM EDT Hospital Encounter [place] [address] Discharge Disposition: Home from Last 3 Months [...] AM EST Hospital Encounter [place] [address] Arrived Health Maintenance Due Date Last Done Comments Tetanus/Diphtheria/Pertussis Vaccines (1 - Tdap) 08/19/1959 Zoster vaccine (1 of 2) 1990 Advance Directive 08/19/1995 Pneumoccocal Vaccine: 65+ (2 of 2 - PCV) 05/04/2009 05/04/2008 Covid-19 Vaccine (1 - season) 2024 Influenza (Flu) vaccine (1 o f 1 - Influenza standard series) 01/03/2024 02/01/2010, 03/06/2006, 02/24/2005 Medical Devices Implanted Type Area Car Wash Attendant Device Identifier Shelf Expiration Date Model / Serial / Lot Mdt : [id number] : [id number] Implanted: (Quantity not on file) Cardiac Resynchronization Therapy - Defibrillator Chest Medtronic - [id number] / [id number] / Care Teams Wrapper Dipper Relationship Specialty Start Date End Date Donny Cooper MD [address] [place], [place] [address] PCP - General Family Medicine 02/25/19
--- OUTSIDE RECORDS SUMMARY | 2024-02-04 08:02 | XMS_ITS | Encounter Summary ---
Author Organization [facility] Address [address] [place] [address] Care Team Providers Care Production Manager Name Role Phone Unknown, Provider Primary Care Provider [phone] Clem Olvera MD Primary Care Provider [phone] Encounter Details Date Type Department Care Team (Late st Contact Info) Description 11/29/2015 Pre-Procedure Orders Encounter [facility] [address] [place], [place] [id number] Navdeep Hurd MD [address] [place] [address] [address] Social History Tobacco Use Types [...] Patient: Nabil Streeter. Attending: Dr. Moran Scrrajinder Executive Vice President Of Sales: Dr. Fantasma Dhillon History/indication: The patient is [...] Patient: Nabil Streeter Attending: Dr. Dean Bailey Executive Vice President Of Sales: Dr. Fantasma Dhillon History/indication: The patient is [...] filedocumented in this encounter Care Teams Production Manager Relationship Specialty Start Date End Date Unknown, Provider, PCP - General 12/06/12 12/17/15 Clem Olvera MD [address] [place] [address] PCP - General 12/18/15 documented as of this encounter
--- OUTSIDE RECORDS SUMMARY | 2024-02-04 08:02 | XMS_ITS | Encounter Summary ---
[place] [address] Care Team Providers Care Cheese Wrapper Name Role Phone Donny Cooper MD Primary Care Provider [phone] Encounter Details Date Type Department Care Team (Late st Contact Info) Description 06/14/2020 Telephone Cardiology at [address] [address] Nhung Briggs Social History Tobacco Use Types [...] He would like to be seen at [facility]. Email sent to Brittaney Hernandez at [facility] asking her to reach out to pt to set up the appt with either Dr. Arguelles or LANG Albert. Nhugn Allen Electrophysiology Scheduling [id number] option 2 documented in this encounter Plan of Treatment Upcoming Encounters Date Type Department Care Team (Late st Contact Info) Description 05/02/2024 10:00 AM EST Hospital Encounter [place] [address] Arrived documented as of this encounter Visit Diagnoses Not on filedocumented in this encounter Care Teams Cheese Wrapper Relationship Specialty Start Date End Date Donny Cooper MD [address] [place] [address] PCP - General Family Medicine 02/25/19 documented as of this encounter
--- OUTSIDE RECORDS SUMMARY | 2024-02-04 08:02 | XMS_ITS | Encounter Summary ---
[place] [address] Care Team Providers Care Range Management Specialist Name Role Phone Donny Cooper MD Primary Care Provider [phone] Encounter Details Date Type Department Care Team (Latest Contact Info) Description 04/08/2022 10:00 AM EST - 04/08/2022 11:59 PM [facility] Hospital Encounter Non-[place] [address] Discharge Disposition: Home Social History Tobacco Use [...] AM EST Hospital Encounter Non-[place] [address] Arrived documented as of [...] on filedocumented in this encounter Care Teams Range Management Specialist Relationship Specialty Start Date End Date Donny Cooper MD [address] [place] [address] PCP - General Family Medicine 02/25/19 documented as of this encounter
--- OUTSIDE RECORDS SUMMARY | 2024-02-04 08:02 | XMS_ITS | Encounter Summary ---
Author Organization [facility] Address [address] [place] [address] Care Team Providers Care Railcar Foreman Name Role Phone Clem Olvera MD Primary Care Provider [phone] Encounter Details Date Type Department Care Team (Latest Contact Info) Description 12/20/2015 10:52 EDT - 12/20/2015 23:52 EDT Hospital Encounter [facility] Cardiovascular Unit [address] [place] [address] Navdeep Hurd MD [address] [place] [address] [address] Discharge Disposition: Home or Self [...] no need to beNPO or have a driver/sales workers. However, his will be accompanying him. They are driving someone to the airport [place] 1000 and then will come here and check-in around 1145. He agrees to have a shower. documented in this encounter Procedure Notes * Fantasma Dhillon MD - 12/20/2015 1356 EDT IR Brief Procedure Note Attending: Leo Flue Gas Analyst: Alejo Pre-op Dx: Arrhythmia, need for pacemaker [...] 12/19 documented in this encounter Care Teams Railcar Foreman Relationship Specialty Start Date End Date Clem Olvera MD [address] [place] [address] PCP - General 12/18/15 documented as of this encounter
--- OUTSIDE RECORDS SUMMARY | 2024-02-04 08:02 | XMS_ITS | Encounter Summary ---
[place] [address] Care Team Providers Care Refinisher Name Role Phone Donny Cooper MD Primary Care Provider [phone] Encounter Details Date Type Department Care Team (Latest Contact Info) Description 10/05/2022 10:00 AM EDT - 10/05/2022 11:59 PM EDT Hospital Encounter Non-[place] [address] Discharge Disposition: Home Social History Tobacco Use [...] st Contact Info) Description 05/02/2024 10:00 AM [facility] Hospital Encounter Non-[place] [address] Arrived documented as of this [...] on filedocumented in this encounter Care Teams Refinisher Relationship Specialty Start Date End Date Donny Cooper MD [address] [place] [address] PCP - General Family Medicine 02/25/19 documented as of this encounter
--- OUTSIDE RECORDS SUMMARY | 2024-02-04 08:02 | XMS_ITS | Encounter Summary ---
[place] [address] Care Team Providers Care Regulatory Affairs Spec Name Role Phone Donny Cooper MD Primary Care Provider [phone] Encounter Details Date Type Department Care Team (Latest Contact Info) Description 01/03/2023 10:00 AM EDT - 01/03/2023 11:59 PM EDT Hospital Encounter Non-[place] [address] Discharge Disposition: Home Social History Tobacco Use [...] st Contact Info) Description 05/02/2024 10:00 AM [facility] Hospital Encounter Non-[place] [address] Arrived documented as of this [...] on filedocumented in this encounter Care Teams Regulatory Affairs Spec Relationship Specialty Start Date End Date Donny Cooper MD [address] [place] [address] PCP - General Family Medicine 02/25/19 documented as of this encounter
--- OUTSIDE RECORDS SUMMARY | 2024-02-04 08:02 | XMS_ITS | Encounter Summary ---
[facility] [place] [address] Care Team Providers Care Group Insurance Special Agent Name Role Phone Donny Cooper MD Primary Care Provider [phone] Encounter Details Date Type Department Care Team (Latest Contact Info) Description 10/03/2022 10:00 AM EDT Office Visit Cardiology at [address] [address] Eleno No PA [facility] [place] [address] Cardiomyopathy, primary; Presence of cardiac resynchronization therapy defibrillator (WORK CHECKER-D); Diaphragmatic stimulation by cardiac pacemaker, initial encounter [...] original note were not included. Cardiac Device WORK CHECKER-D Programming Evaluation Nabil Iglesias [id number] 10/03/2022 History: Mr. Iglesias is a pleasant [...] OFF Pacing Mode: DDD 60/130/120 Presenting EGMs: -BP/-WELDING ENGINEER Underlying Rhythm: CHB with no obvious [...] AM EST Hospital Encounter Non-[place] [address] Arrived documented as of this encounter Procedures Procedure Name Priority Date/Time Associated Diagnosis Comments EKG 12-LEAD Routine 10/03/2022 11:00 AM EDT Cardiomyopathy, primary Presence of cardiac resynchronization therapy defibrillator (WORK CHECKER-D) Diaphragmatic stimulation by cardiac pacemaker, initial encounter documented in this encounter Results * EKG 12 Lead (10/03/2022 11:00 AM EDT) Ventricular rate 74 BPM MUSE SYSTEM Atrial Rate 74 BPM MUSE SYSTEM P-R Interval 154 ms MUSE SYSTEM QRS Duration 162 ms MUSE SYSTEM Q-T Interval 470 ms MUSE SYSTEM QTC Calculated (Bezet) 521 ms MUSE SYSTEM Calculated P Startex 30 degrees MUSE SYSTEM Calculated R Startex -98 degrees MUSE SYSTEM Calculated T Startex 41 degrees MUSE SYSTEM INTERPRETATION Atrial-sense d [...] cardiomyopathies Presence of cardiac resynchronization therapy defibrillator (WORK CHECKER-D) Diaphragmatic stimulation by cardiac pacemaker, initial encounter documented in this encounter Care Teams Group Insurance Special Agent Relationship Specialty Start Date End Date Donny Cooper MD [address] [place] [address] PCP - General Family Medicine 02/25/19 documented as of this encounter
--- OUTSIDE RECORDS SUMMARY | 2024-02-04 08:02 | XMS_ITS | Encounter Summary ---
Author Organization [facility] [place] [address] Care Team Providers Care Overnight Houseperson Name Role Phone Donny Cooper MD Primary Care Provider [phone] Encounter Details Date Type Department Care Team (Late st Contact Info) Description 07/26/2019 Notes Only Cardiology at [address] [address] Maged Arguelles MD [facility] [place] [address] Social History Tobacco Use Types Packs/Day Years [...] his Medtronic biventricular ICD is reviewed. Suboptimal AVIONICS SAFETY INSPECTOR at 84%. Normal device function. Awaiting Holter to assess PVC burden. Maged Arguelles MD [facility] Cardiac Electrophys[facility] 07/26/2019 9:04 AM documented in this encounter Plan of Treatment Upcoming Encounters Date Type Department Care Team (Late st Contact Info) Description 05/02/2024 10:00 AM EST Hospital Encounter [place]-Invasive [place] [address] Arrived documented as of this encounter Visit Diagnoses Not on filedocumented in this encounter Care Teams Overnight Houseperson Relationship Specialty Start Date End Date Donny Cooper MD [address] [place] [address] PCP - General Family Medicine 02/25/19 documented as of this encounter
--- OUTSIDE RECORDS SUMMARY | 2024-02-04 08:02 | XMS_ITS | Encounter Summary ---
Author Organization [facility] [place] [address] Care Team Providers Care Shop Estimator Name Role Phone Donny Cooper MD Primary Care Provider [phone] Encounter Details Date Type Department Care Team (Latest Contact Info) Description 06/25/2021 3:23 PM EST - 06/25/2021 11:59 PM EST Hospital Encounter Non-Invasive [place] [address] Alber Seals MD [facility] [place] [address] Cardiomyopathy, primary Discharge Disposition: Home Social History [...] AM EST Hospital Encounter Non-Invasive [place] [address] Arrived documented as of this encounter Procedures Procedure Name Priority Date/Time Associated Diagnosis Comments ICD INTERROGATION 3 MONTH Routine 06/25/2021 3:24 PM EST Cardiomyopathy, primary documented in this encounter Results * ICD INTERROGATION 3 MONTH (06/25/2021 3:24 PM EST) Anatomical Region Laterality Modality Other Narrative 06/25/2021 3:42 PM EST Cardiac Device Remote Monitoring Report Summary Medtronic Carelink Device: PROGRESS CLERK-D Model: VIVA QUAD Battery: 2.95 v, estimated longevity 2 years 6 months Pacing percentage: 90% PROGRESS CLERK paced Events: Presenting rhythm: atrial paced/biventricular paced Frequent PVC's Impression Normal device function Follow Up As per schedule - in-clinic and remote ALBER SEALS MD 06/25/21 Alber Seals MD IMPLANTABLE CARDIAC DEVICE documented in this encounter Visit Diagnoses Diagnosis Cardiomyopathy, primary Other primary cardiomyopathies documented in this encounter Care Teams Shop Estimator Relationship Specialty Start Date End Date Donny Cooper MD [address] [place] [address] PCP - General Family Medicine 02/25/19 documented as of this encounter
--- OUTSIDE RECORDS SUMMARY | 2024-02-04 08:02 | XMS_ITS | Encounter Summary ---
[place] [address] Care Team Providers Care Scientific Recruiter Name Role Phone Donny Cooper MD Primary Care Provider [phone] Encounter Details Date Type Department Care Team (Latest Contact Info) Description 07/02/2023 10:00 AM EST - 07/02/2023 11:59 PM EST Hospital Encounter Non-Invasive [place] [address] Discharge Disposition: Home Social History Tobacco Use [...] st Contact Info) Description 05/02/2024 10:00 AM [facility] Hospital Encounter Non-[place] [address] Arrived documented as of this encounter Visit Diagnoses Not on filedocumented in this encounter Care Teams Scientific Recruiter Relationship Specialty Start Date End Date Donny Cooper MD [address] [place] [address] PCP - General Family Medicine 02/25/19 documented as of this encounter
--- OUTSIDE RECORDS SUMMARY | 2024-02-04 08:02 | XMS_ITS | Encounter Summary ---
[place] [address] Care Team Providers Care Benefits Specialist Name Role Phone Donny Cooper MD Primary Care Provider [phone] Encounter Details Date Type Department Care Team (Latest Contact Info) Description 07/07/2022 10:00 AM EST - 07/07/2022 11:59 PM EST Hospital Encounter Non-Invasive [place] [address] Discharge Disposition: Home Social History Tobacco Use [...] AM EST Hospital Encounter Non-Invasive [place] [address] Arrived documented as of [...] on filedocumented in this encounter Care Teams Benefits Specialist Relationship Specialty Start Date End Date Donny Cooper MD [address] [place] [address] PCP - General Family Medicine 02/25/19 documented as of this encounter
--- OUTSIDE RECORDS SUMMARY | 2024-02-04 08:02 | XMS_ITS | Encounter Summary ---
[place] [address] Care Team Providers Care Operations Assistant Name Role Phone Marques Martinez MD Primary Care Provider [phone] Encounter Details Date Type Department Care Team (Late st Contact Info) Description 06/12/2010 2:00 PM EST Procedure visit [place] [address] Social History Tobacco Use Types Packs/Day Years [...] AM EST Hospital Encounter Non[place] [address] Arrived documented as of this encounter Visit Diagnoses Not on filedocumented in this encounter Care Teams Operations Assistant Relationship Specialty Start Date End Date Marques Martinez MD [address] [place] [address] PCP - General 04/01/10 04/08/11 documented as of this encounter
--- OUTSIDE RECORDS SUMMARY | 2024-02-04 08:02 | XMS_ITS | Encounter Summary ---
Author Organization [facility] [place] [address] Care Team Providers Care Laborer Pole Crew Name Role Phone Donny Cooper MD Primary Care Provider [phone] Encounter Details Date Type Department Care Team (Latest Contact Info) Description 12/18/2020 11:57 AM EDT - 12/18/2020 11:59 PM EDT Hospital Encounter Non-[place] [address] Maged Arguelles MD [facility] ELECT[place] [address] Cardiomyopathy, primary Discharge Disposition: Home Social History [...] AM EST Hospital Encounter Non-Invasive [place] [address] Arrived documented as of this encounter Procedures Procedure Name Priority Date/Time Associated Diagnosis Comments ICD INTERROGATION 3 MONTH Routine 12/18/2020 12:00 PM EDT Cardiomyopathy, primary documented in this encounter Results * ICD INTERROGATION 3 MONTH (12/18/2020 12:00 PM EDT) Anatomical Region Laterality Modality Other Narrative 12/23/2020 11:08 PM EDT MDT WOOD GOUGER-D remote reviewed. Normal device function. Inadequate WOOD GOUGER at 80%. Maged Arguelles MD [facility]iac Electrophys[facility] 12/23/2020 11:06 PM Maged Arguelles MD IMPLANTABLE CARDIAC DEVICE documented in this encounter Visit Diagnoses Diagnosis Cardiomyopathy, primary Other primary cardiomyopathies documented in this encounter Care Teams Laborer Pole Crew Relationship Specialty Start Date End Date Donny Cooper MD [address] [facility] [address] [place] [address] PCP - General Family Medicine 02/25/19 documented as of this encounter
--- OUTSIDE RECORDS SUMMARY | 2024-02-04 08:02 | XMS_ITS | Encounter Summary ---
Author [place] [address] Care Team Providers Care Medical Data Entry Clerk Name Role Phone Donny Cooper MD Primary Care Provider [phone] Encounter Details Date Type Department Care Team (Latest Contact Info) Description 02/02/2024 10:00 AM EDT - 02/02/2024 11:59 PM EDT Hospital Encounter [place] [address] Arrived Discharge Disposition: Home Social History Tobacco Use [...] st Contact Info) Description 05/02/2024 10:00 AM [facility] Hospital Encounter [place] [address] Arrived documented as of this encounter Visit Diagnoses Not on filedocumented in this encounter Care Teams Medical Data Entry Clerk Relationship Specialty Start Date End Date Donny Cooper MD [address] [place] [address] PCP - General Family Medicine 02/25/19 documented as of this encounter
--- OUTSIDE RECORDS SUMMARY | 2024-02-04 08:02 | XMS_ITS | Encounter Summary ---
[place] [address] Care Team Providers Care Corrosion Prevention Metal Sprayer Name Role Phone Donny Cooper MD Primary Care Provider [phone] Encounter Details Date Type Department Care Team (Late st Contact Info) Description 03/17/2019 Telephone Cardiology at [address] [address] Sheri Quinn LNA Social History [...] 11:46 AM EST Medication list reviewed with [facility] list. Please review with patient at next clinic visit. documented in this encounter Plan of Treatment Upcoming Encounters Date Type Department Care Team (Late st Contact Info) Description 05/02/2024 10:00 AM EST Hospital Encounter [place] [address] Arrived documented as of this encounter Visit Diagnoses Not on filedocumented in this encounter Care Teams Corrosion Prevention Metal Sprayer Relationship Specialty Start Date End Date Donny Cooper MD [address] [place] [address] PCP - General Family Medicine 02/25/19 documented as of this encounter
[2024-02-04 08:04] VITALS: BP 114/60; PULSE 71; O2SAT 94
--- OUTSIDE RECORDS SUMMARY | 2024-02-09 08:08 | XMS_ITS | Encounter Summary ---
Author Organization [facility] Address [address] [place] [address] Care Team Providers Care Old Testament Professor Name Role Phone Clem Olvera MD Primary Care Provider [phone] Reason for Visit * Reason Onset Date Comments Appointment Related 10/23/2016 Check for fo llow up of pacer Encounter Details Date Type Department Care Team ([facility] Contact Info) Description 10/23/2016 Telephone [facility] Cardiology - [address] [place] [address] Pacemaker, Pace Appointment Related (Check [...] that Nabil had his pacemaker checked in [place] where they are for the winter. They have some back and are being followed by Dr. Hurd at [facility]. documented in this encounter Plan of Treatment Not on file documented as of this encounter Visit Diagnoses Not on filedocumented in this encounter Care Teams Old Testament Professor Relationship Specialty Start Date End Date Clem Olvera MD [address] [place] [address] PCP - General 12/18/15 documented as of this encounter
--- OUTSIDE RECORDS SUMMARY | 2024-02-09 08:08 | XMS_ITS | Encounter Summary ---
Author Organization [facility] Address [address] [place] [address] Care Team Providers Care Real Estate Agency Principal Name Role Phone Clem Olvera MD Primary Care Provider [phone] Reason for Referral * (Routine) - Closed Specialty Diagnoses / Procedures Referred By Pedro madera Referred To Contact Beatrice De La Garza NP [address] [place] [phone] Referral ID Status Reason Start Date Expiration Date V isits Requested Visits Authorized [id number] Closed Specialty Services Required 02/27/2016 1 1 Comments You must contact us if we have not contacted you or you have missed your scheduled appointment. If you have any nursing questions, please don't hesitate to call the Cardiac Arrhythmia Service at [facility] at or , extension [phone]. For any scheduling of appointments, please call [phone] or , extension [phone]. . * (Routine) - Closed Specialty Diagnoses / Procedures Referred By Pedro madera Referred To Contact Beatrice De La Garza NP [address] [address] Referral ID Status Reason Start Date Expiration Date V isits Requested Visits Authorized [id number] Closed Specialty Services Required 02/27/2016 1 1 Comments You have a pre existing appointment with Dr. Olvera on March 05 at 2:00, please have Dr. Olvera check your incision at that visit. * (Routine) - Closed Specialty Diagnoses / Procedures Referred By Contbecca t Referred To Contact Beatrice De La Garza NP [address] [phone] Referral ID Status Reason Start Date Expiration Date V isits Requested Visits Authorized [id number] Closed Specialty Services Required 02/27/2016 1 1 [...] [facility] at [address] [facility] in [place] -Clinics are also held in [facility], and [place], [place] and [facility]. If you live in those areas, we will make arrangements for follow-up appointments in one of those clinics.. Encounter Details Date Type Department Care Team (Late st Contact Info) Description 02/27/2016 6:30 EDT - 02/28/2016 13:39 EDT Hospital Encounter [facility] Cardiac/Telemetry Unit [address] [place] [address] Gulshan Drummond MD PhD [address] [phone] Gulshan Montoya Sa, MD [address] [facility] [address] [place] [phone] AICD lead malfunction, subsequent encounter; ICD [...] EF of 20-25% status post silent inferior TX in the early . 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 He had heart failure symptoms that started around May 2013, when he was in [place], [place]. This triggered major cardiac workup including [...] then underwent a device upgrade to a FRONT END WHEEL LOADER OPERATOR-D device with biventricular pacing for his [...] clinic at [facility] in [place]. Continued high pacing threshold on [...] and plans to follow up with his Wire Coating Machine Operator in [place] in 6-8 weeks for which [...] Discharge Follow Up Appointments Scheduled with [facility] Appointments Outside of [facility] We Will Schedule Studies We Will Schedule Appointments We Recommend but have not been Scheduled Beatrice De La Garza NP 02/27/2016 10:59 Associated attestation - Gulshan Montoya Sa, MD - 02/28/2016 1519 EDT Attending Attestation: I saw and evaluated the patient. I discussed the case with the resident/TROLLEY CAR OVERHAULER/fellow and agree with the findings and plan as documented above. Gulshan bullock Sa, MD Cardiac Electrophysiology documented in this encounter Discharge Instructions * Appointments* Beatrice De La Garza NP - 02/27/2016 11:[address] Olvera on 03/05/16 at 2:00 as previously scheduled for a routine visit and for a check of your incision. Follow up with Giselle Hill NP at the [facility] in May, you will be [...] Notes * Lou Alfonso RN - 02/28/2016 7205 EDT Pt awaiting discharge. IV and tele [...] agree to review this medication with his care coordination manager and plans to remain on his home dosing, which was in the morning. He received dose this am. Ptleft via wheelchair with . * Beatrice Rodriguez - 02/28/2016 1329 EDT Brief visit with patient and as they were being discharged. Patient states he is independent in self care and home management. He feels well supported by friends and neighbors. Patient has Medicare and [facility]. Pharmacy is [facility] in [facility]. No needs identified at time of discharge. will provide transportation. Beatrice Rodriguez RN Case Manager #[phone] documented in this encounter H&P Notes * Navdeep Hurd MD - 02/27/2016 0830 EDT Cardiology Admitting H&P Admit Date: 02/27/2016 Date of Service: 02/27/2016 PCP: Clem Olvera Code Status: Full Code Chief Complaint: FINN, device battery depletion, high pacing threshold on epicardial lead HPI: 74-year-old man with coronary artery disease and ischemic cardiomyopathy status post silent inferior TX in the early . 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 He had heart failure symptoms that started around May 2013, when he was in [place], [place]. This triggered major cardiac workup including [...] point, his device was upgraded to a FRONT END WHEEL LOADER OPERATOR-D device with biventricular pacing. By the [...] clinic at [facility] in [place]. Continued high pacing threshold on the epicardial LV lead has caused a very rapid battery depletion. Dr. David Adams in [place] recommended against lead extraction and reimplant as [...] insertion 2002 2013 second pacemaker [facility] Social History Family History Social History Substance Use Topics ??? Smoking status: Former Smoker Years: 35.00 Quit date: 1989 ??? Smokeless tobacco: Not on file ??? Alcohol use 6.6 oz/week 6 Cans of beer, 5 Glasses of wine per week , lives with , retired. Spends leong in [place]. Spends the chery in [place], [place]. Quit smoking in 1990. Has 2 [...] and ischemic cardiomyopathy status post silent inferior TX in the early . Also diagnosed with [...] point, his device was upgraded to a FRONT END WHEEL LOADER OPERATOR-D device with biventricular pacing with a [...] EST) 03/12/2016 12:4 3 EST Scan 2 Manager Sterile PROCEDURE/MINOR JUDD GICAL ORDERABLES * ECG REPORT - SCANNED (03/04/2016 14:06 EDT) 03/04/2016 14:0 6 EDT Scan 2 Manager Sterile PROCEDURE/MINOR JUDD GICAL ORDERABLES * ECG REPORT - SCANNED (03/04/2016 14:06 EDT) 03/04/2016 14:0 6 EDT Scan 2 Manager Sterile PROCEDURE/MINOR JUDD GICAL ORDERABLES * IMPLANT RECORD - SCANNED (03/04/2016 14:06 EDT) 03/04/2016 14:0 6 EDT Scan 2 Manager Sterile PROCEDURE/MINOR JUDD GICAL ORDERABLES * ECG REPORT - SCANNED (03/01/2016 8:58 EDT) 03/01/2016 8:58 EDT Scan 2 Manager Sterile PROCEDURE/MINOR JUDD GICAL ORDERABLES * ECG REPORT - SCANNED (03/01/2016 8:58 EDT) 03/01/2016 8:58 EDT Scan 2 Manager Sterile PROCEDURE/MINOR JUDD GICAL ORDERABLES * CHEST PA [...] ORDERABLES * HEMAGRAM (02/28/2016 5:44 EDT) [facility] WBC 9.84 4.0 - 10.4 K/cmm 02/28/2016 6:26 EDT [facility] RBC 4.42 4.36 - 5.78 M/cmm 02/28/2016 6:26 T [facility] Hemoglobin 14.2 13.8 - 17.3 gm/dl 02/28/2016 6:26 [facility] HCT 40.9 39.5 - 50.2 % 02/28/2016 6:26 [facility] MCV 93 81 - 95 fl 02/28/2016 6:26 [facility] MCH 32.1 27.6 - 33.0 pg 02/28/2016 6:26 [facility] MCHC 34.7 32.8 - 36.4 gm/dl 02/28/2016 6:26 [facility] RDW-CV 13.1 11.8 - 14.1 % 02/28/2016 6:26 [facility] RDW-SD 44.6 36.5 - 45.9 fl 02/28/2016 6:26 [facility] PLT 151 141 - 377 K/cmm 02/28/2016 6:26 [facility] MPV 11.2 9.5 - 12.7 fl 02/28/2016 6:26 [facility] Blood specimen (specimen) BLOOD SPECIMEN / Unknown 02/28/2016 5:44 EDT 02/28/2016 6:13 EDT Beatrice De La Garza NP HEMATOLOGY & PF4 ORDERABLES [facility] [address] [place] [address] * (ABNORMAL) CREATININE (02/28/2016 5:44 EDT) Creatinine 0.65(L) 0.66 - 1.25 mg/dl 02/28/2016 6:48 EDT [facility] GFR, Calculated 95 >60 ml/min/1.7 3m2 02/28/2016 6:48 EDT [facility] Comment: eGFR calculated using CKD-EPI equation for non Americans. Multiply eGFR by 1.16 for Americans. Blood specimen (specimen) BLOOD SPECIMEN / Unknown 02/28/2016 5:44 EDT 02/28/2016 6:13 EDT Beatrice De La Garza NP CHEMISTRY & B LOOD GAS ORDERABLES Performing Organization Address [facility]/ZIP Co de Phone Number [facility] [address] [place] [address] * BUN (02/28/2016 5:44 EDT) BUN 14 10 - 26 mg/dl 02/28/2016 6:48 EDT [facility] Blood specimen (specimen) BLOOD SPECIMEN / Unknown 02/28/2016 5:44 EDT 02/28/2016 6:13 EDT Beatrice De La Garza TROLLEY CAR OVERHAULER CHEMISTRY & B LOOD GAS ORDERABLES Performing Organization Address [facility] Co de Phone Number [facility] [address] [place] [address] * ELECTROLYTES (02/28/2016 5:44 EDT) Sodium 138 136 - 145 mEq/L 02/28/2016 6:48 EDT [facility] Potassium 4.7 3.5 - 5.0 mEq/L 02/28/2016 6:48 EDT [facility] Chloride 104 96 - 110 mEq/L 02/28/2016 6:48 EDT [facility] CO2 25 22 - 32 mEq/L 02/28/2016 6:48 EDT [facility] Comment:Note new reference r hong 02/19/16 Blood specimen (specimen) BLOOD SPECIMEN / Unknown 02/28/2016 5:44 EDT 02/28/2016 6:13 EDT Beatrice De La Garza NP CHEMISTRY & B LOOD GAS ORDERABLES [facility] [address] [place] [address] * PORTABLE CHEST 1 VIEW (02/27/2016 12:46 [...] 12:41 EDT) 02/27/2016 12:4 1 EDT Narrative [facility] - 02/28/2016 8:57 EDT ? [facility] ? Test Date: ?2016-02-27 Pat Name: ? NABIL IGLESIAS ? Department: ?? [facility] ? Room: ? MW514 Gender: ? M ?Sub Prior: ?? [id number] : ?1940 ? Requested By: KAIN REED L Order Number: [id number] ? Reading MD: ?? BRAYAN CUENCA MD ? Measurements Intervals ?[place] ? Rate: ? 63 ? P: ?15 NV: ? 159 ?QRS: ?234 QRSD: ? 156 [...] Pat Name: NABIL IGLESIAS Department: [place] [address] Room: [facility] Gender: M Sub Prior: [id number] : 1940 Requested By: KAIN Gallagher Order Number: [id number] Reading MD: BRAYAN CUENCA MD Measurements Intervals [place] Rate: 63 P: 15 NV: 159 QRS: 234 QRSD: 156 T: 15 QT: 479 QTc: 493 Interpretive Statements ELECTRONIC VENTRICULAR PACEMAKER Compared to ECG 02/27/2016 08:10:34 No significant changes I reviewed the tracing and have either agreed or edited the findings inthis report. Electronically Signed On 02-28-16 08:57:02 EDT by BRAYAN BEEBE. Gulshan Drummond MD PhD CARDIA C ECG ORDERABLES [facility] * PROTIME (02/27/2016 8:45 EDT) Pro Time 12.3 10.3 - 13.1 secs 02/27/2016 9:10 EDT [facility] Comment: New prothrombin t josue range effective 01/29/16 I.N.R. 1.1 0.9 - 1.1 Ratio 02/27/2016 9:10 EDT [facility] Comment: Moderate Intensity Coumadin INR = 2.0-3.0 Adjustments in anticoagulant therapy dose should be based upon the INR and NOT the Pro Time. Blood specimen (specimen) BLOOD SPECIMEN / Unknown 02/27/2016 8:45 EDT 02/27/2016 8:54 EDT Gulshan Drummond MD PhD HEMATO LOGY & PF4 ORDERABLES [facility] [address] [place] [address] * HEMAGRAM (02/27/2016 8:45 EDT) WBC 6.47 4.0 - 10.4 K/cmm 02/27/2016 8:57 EDT [facility] RBC 4.51 4.36 - 5.78 M/cmm 02/27/2016 8:57 EDT [facility] Hemoglobin 14.7 13.8 - 17.3 gm/dl 02/27/2016 8:57 EDT [facility] HCT 41.7 39.5 - 50.2 % 02/27/2016 8:57 EDT [facility] MCV 93 81 - 95 fl 02/27/2016 8:57 EDT [facility] MCH 32.6 27.6 - 33.0 pg 02/27/2016 8:57 EDT [facility] MCHC 35.3 32.8 - 36.4 gm/dl 02/27/2016 8:57 T [facility] RDW-CV 13.1 11.8 - 14.1 % 02/27/2016 8:57 EDT [facility] RDW-SD 44.0 36.5 - 45.9 fl 02/27/2016 8:57 EDT [facility] PLT 176 141 - 377 K/cmm 02/27/2016 8:57 EDT [facility] MPV 10.7 9.5 - 12.7 fl 02/27/2016 8:57 EDT [facility] Blood specimen (specimen) BLOOD SPECIMEN / Unknown 02/27/2016 8:45 EDT 02/27/2016 8:54 EDT Gulshan Drummond MD PhD HEMATO LOGY & PF4 ORDERABLES [facility] [address] [place] [address] * ELECTROLYTES (02/27/2016 8:45 EDT) Sodium 142 136 - 145 mEq/L 02/27/2016 9:13 EDT [facility] Potassium 4.7 3.5 - 5.0 mEq/L 02/27/2016 9:13 EDT [facility] Chloride 103 96 - 110 mEq/L 02/27/2016 9:13 EDT [facility] CO2 27 22 - 32 mEq/L 02/27/2016 9:13 EDT [facility] Comment:Note new reference r hong 02/19/16 Blood specimen (specimen) BLOOD SPECIMEN / Unknown 02/27/2016 8:45 EDT 02/27/2016 8:54 EDT Gulshan Drummond MD PhD CHEMIS TRY & BLOOD GAS ORDERABLES Performing Organization Address [facility] de Phone Number [facility] [address] [place] [address] * CREATININE (02/27/2016 8:45 EDT) Creatinine 0.69 0.66 - 1.25 mg/dl 02/27/2016 9:13 EDT [facility] GFR, Calculated 93 >60 ml/min/1.7 3m2 02/27/2016 9:13 EDT [facility] Comment: eGFR calculated using CKD-EPI equation for non Americans. Multiply eGFR by 1.16 for Americans. Blood specimen (specimen) BLOOD SPECIMEN / Unknown 02/27/2016 8:45 EDT 02/27/2016 8:54 EDT Gulshan Drummond MD PhD CHEMIS TRY & BLOOD GAS ORDERABLES Performing Organization Address City/[facility] Co de Phone Number [facility] [address] [place] [address] * BUN (02/27/2016 8:45 EDT) BUN 17 10 - 26 mg/dl 02/27/2016 9:13 EDT [facility] Blood specimen (specimen) BLOOD SPECIMEN / Unknown 02/27/2016 8:45 EDT 02/27/2016 8:54 EDT Gulshan Drummond MD PhD CHEMIS TRY & BLOOD GAS ORDERABLES [facility] [address] [place] [address] * EKG 12-LEAD (02/27/2016 8:08 EDT) 02/27/2016 8:08 EDT Narrative [facility] - 02/28/2016 9:01 EDT ? [facility] ? Test Date: ?2016-02-27 Pat Name: ? NABIL IGLESIAS ? Department: ?? [facility] ? Room: ? JQ4657 Gender: ? M ?Sub Prior: ?? [id number] : ?1940 ? Requested By: MARCIA oBo Order Number: [id number] ? Julia WRIGHT: ?? BRAYAN CUENCA MD ? Measurements Intervals ?[place] ? Rate: ? 69 ? P: ?147 NV: ? 134 ?QRS: ?-67 QRSD: ? 160 [...] Date: 2016-02-27 Pat Name: NABIL IGLESIAS Department: [facility] Room: AF1951 Gender: M Sub Prior: [id number] : 1940 Requested By: MARCIA Boo Order Number: [id number] Reading MD: BRAYAN CUENCA MD Measurements Intervals [place] Rate: 69 P: 147 NV: 134 QRS: -67 QRSD: 160 T: -59 QT: 434 QTc: 467 Interpretive Statements ELECTRONIC ATRIAL PACEMAKER ELECTRONIC VENTRICULAR PACEMAKER Compared to ECG 02/27/2016 08:08:46 No significant changes I reviewed the tracing and have either agreed or edited the findings inthis report. Electronically Signed On 02-28-16 09:01:04 EDT by BRAYAN BEEBE. Navdeep Hurd MD CARDIAC ECG ORD ERABLES [facility] documented in this encounter Visit [...] Reason: Other - Comment: pt already took NATURAL FOODS CLERK, takes other meds at HS) 921 (Given [...] Reason: Other - Comment: pt already took NATURAL FOODS CLERK, takes other meds at HS)2100 (Given - Provider: Mady Bruno RN) spironolactone (ALDACTONE) tablet 12.5 mg 12.5 mg, oral, DAILY, First dose on Thu02/27/16 at 1245, Until Discontinued, Routine 1306 (Not Given - Provider: Nneka Stuart RN - Reason: Other - Comment: pt already took NATURAL FOODS CLERK, takes other meds at HS)2102 (Given - Provider: Mady Bruno RN) tamsulosin (FLOMAX) capsule 0.4 mg 0.4 mg, oral, DAILY, First dose on Thu02/27/16 at 1245, Until Discontinued, Routine 1306 (Not Given - Provider: Nneka Stuart RN - Reason: Other - Comment: pt already took NATURAL FOODS CLERK, takes other meds at HS) 921 (Given [...] 02/02 documented in this encounter Care Teams Real Estate Agency Principal Relationship Specialty Start Date End Date Clem Olvera MD [address] [place] [phone] PCP - General 12/18/15 documented as of this encounter
--- OUTSIDE RECORDS SUMMARY | 2024-02-09 08:08 | XMS_ITS | Encounter Summary ---
Author Organization [facility] Address [address] [place] [address] Care Team Providers Care Supervisor Twisting Department Name Role Phone Clem Olvera MD Primary Care Provider [phone] Reason for Referral * Cardiology (3 - 10 Business Days) - Closed Specialty Diagnoses / Procedures [facility] Referred To Contact Diagnoses ICD (implantable cardioverter-defibrillator) battery depletion Pacemaker lead failure, initial encounter 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 Procedures IMPLANTABLE CARDIAC DEFIBRILLATOR PROCEDURE Navdeep Hurd MD [address] [place], [place] [address] [address] [place] [address] Referral ID Status Reason Start Date Expiration Date Visits Re quested Visits Authorized [id number] Closed 02/13/2016 1 1 Encounter Details Date Type Department Care Team (Latest Contact Info) Description 02/13/2016 Pre-Procedure Orders Encounter [facility] [address] [place], [place] [address] Navdeep Hurd MD [address] [facility] [address] [place] [address] ICD (implantable cardioverter-defibril lator) battery [...] 8 EDT Narrative 02/27/2016 15:17 EDT *Cardiology* [address] [place] [address] Lead Revision (Report amended ) Patient: Nabil Iglesias ?Study Date: ?02/27/2016 ? Accession #: ? [id number] : ? 1940 Referring: Clem Olvera Attending: [...] glide wire a Nick MENDOZAW 6F ([facility]) 6 mm-40 mm balloon dilation still [...] fascia. The leads were connected to a ORNAMENTAL IRONWORKER HELPER-D device. Device and Lead detail in [...] Implanted device: Medtronic - Viva Quad XT ORNAMENTAL IRONWORKER HELPER-D DF4 - Serial number: [id number] Explanted device: Medtronic - Viva XT ORNAMENTAL IRONWORKER HELPER-D DF4 - Serial number: [id number]. LEAD PARAMETERS + + + + + [...] + + + + + Serial number [id number] ? [id number] ?? [id number] ?? [id number] ? + + + + [...] status is indicated. ?Electronically signed by Gulshan Drumomnd MD, PhD 05/12/2016 15:31 Procedure Note Gulshan Drummond MD - 05/12/2016 *Cardiology* [address] [place] [address] Lead Revision (Report amended ) Patient: Nabil [...] an 0.35 glide wire a [facility] 6F ([facility]) 6 mm-40 mm balloon dilation still [...] fascia. The leads were connected to a ORNAMENTAL IRONWORKER HELPER-D device. Device and Lead detail in [...] Implanted device: Medtronic - Viva Quad XT ORNAMENTAL IRONWORKER HELPER-D DF4 - Serial number: [id number] Explanted device: Medtronic - Viva XT ORNAMENTAL IRONWORKER HELPER-D DF4 - Serial number: [id number]. LEAD PARAMETERS + + + + + + Lead # 1 2 3 4 + + + + + + Chamber RA RV LV LV + + + + + + Date 07/19/2002 07/18/2013 02/27/2016 07/18/2013 implanted + + + + + + Model St. Esa Medtronic Medtronic Enpath information [id number] Attain Epicardial Performa 4298 + + + + + + Serial number [id number] + + + + + + [...] situ documented in this encounter Care Teams Supervisor Twisting Department Relationship Specialty Start Date End Date Clem Olvera MD [address] [place] [address] PCP - General 12/18/15 documented as of this encounter
--- OUTSIDE RECORDS SUMMARY | 2024-02-09 08:08 | XMS_ITS | Encounter Summary ---
Author Organization [facility] Address [address] [place] [address] Care Team Providers Care Chemical Pumper Name Role Phone Clem Olvera MD Primary Care Provider Encounter Details Date Type Department Care Team (Latest Contact Info) Description 12/20/2015 10:52 EDT - 12/20/2015 23:52 EDT Hospital Encounter [facility] Cardiovascular Unit [address] [place] [address] Navdeep Hurd MD [address] [place] [address] [address] Discharge Disposition: Home or Self [...] no need to beNPO or have a catering truck driver. However, his will be accompanying him. They [place] someone to the airport [place] 1000 and then will come here and check-in around 1145. He agrees to have a shower. documented in this encounter Procedure Notes * Fantasma Dhillon MD - 12/20/2015 1356 EDT IR Brief Procedure Note Attending: [employer] Clerk: Alejo Pre-op Dx: Arrhythmia, need for [...] documented in this encounter Care Teams Chemical Pumper Relationship Specialty Start Date End Date Clem Olvera MD [address] [place] [id number] PCP - General 12/18/15 documented as of this encounter
--- OUTSIDE RECORDS SUMMARY | 2024-02-09 08:08 | XMS_ITS | Encounter Summary ---
Author Organization [facility] Address [address] [place] [address] Care Team Providers Care Squeegee Operator Name Role Phone Clem Olvera MD Primary Care Provider [phone] Reason for Visit * Reason Onset Date Comments Other 04/04/2019 Transfer request for Pacer Care at [facility] Encounter Details Date Type Department Care Team (Late st Contact Info) Description 04/04/2019 Telephone [facility] [address] [place] [address] Giselle Hill, TRANSACTIONAL PARALEGAL Other (Transfer request for Pacer Care at [facility]) Social History Tobacco [...] 04/04/2019 1503 EST I went into the [employer] Website and released pt to [facility] Pacer Clinic as requested. * Telephone Encounter - Suze Reynoso - 04/04/2019 1342 EST PT WILL BE HAVING HIS PACER CARE DONE AT [facility], PLEASE RELEASE HIS REMOTE MONITORING SO THAT THEY CAN PICK IT UP documented in this encounter Plan of Treatment Not on file documented as of this encounter Visit Diagnoses Not on filedocumented in this encounter Care Teams Squeegee Operator Relationship Specialty Start Date End Date Clem Olvera MD [address] [place] [address] PCP - General 12/18/15 documented as of this encounter
--- OUTSIDE RECORDS SUMMARY | 2024-02-09 08:08 | XMS_ITS | Encounter Summary ---
Author Organization [facility] Address [address] [place] [address] Care Team Providers Care Student Activities Director Name Role Phone Clem Olvera MD Primary Care Provider [phone] Encounter Details Date Type Department Care Team (Late st Contact Info) Description 03/16/2019 Abstract [facility] Cardiology Clinic [address] [place] [address] Ronal Avelar, JADON AV block, 2nd degree [...] Laterality Modality Device Narrative 03/24/2019 10:30 EST [facility] Cardiology Device Visit Sock Knitting Machine Operator: [employer] Device Type: SUPERVISOR MOLDING-D Service: Remote ? Indication: ICMO Battery Longevity: [...] Miguel Ángel George APRN Miguel Ángel George DAIRY CATTLE FARMER CV IMPLANTABLE CARDI AC DEVICE documented in this encounter Visit Diagnoses Diagnosis AV block, 2nd degree- Primary Other second degree atrioventricular block documented in this encounter Care Teams Student Activities Director Relationship Specialty Start Date End Date Clem Olvera MD [address] [place] [address] PCP - General 12/18/15 documented as of this encounter
--- OUTSIDE RECORDS SUMMARY | 2024-02-09 08:08 | XMS_ITS | Referral Summary ---
Author Organization [facility] Address [address] [place] [address] Care Team Providers Care Pega Developer Name Role Phone Clem Olvera MD Primary Care Provider [phone] Allergies No known active allergies Medications Medication [...] Advance Directives For more information, please contact: [phone] * Full Code (Latest Code Status on File) Date Activated Date Inactivated Comments 02/27/2016 8:49 02/28/2016 15:40 Question Answer Comments Reason for decision includes: Full code consistent with overall plan of care Who participated in the discussion? Not Discusse d Care Teams Pega Developer Relationship Specialty Start Date End Date Clem Olvera MD [address] [place] [address] [id number] PCP - General 12/18/15
--- OUTSIDE RECORDS SUMMARY | 2024-02-09 08:08 | XMS_ITS | Encounter Summary ---
Author Organization [facility] Address [address] [place] [address] Care Team Providers Care Accounting Director Name Role Phone Unavailable Primary Care Provider Unavailabl e Encounter Details Date Type Department Care Team (Late st Contact Info) Description 12/02/2012 Results Only [facility] Laboratory Services - [facility] [address] [place] [address] 480366 Satinder Edwards MD [address] [place] [address] Social History Tobacco Use Types Packs/Day Years [...] ? NABIL IGLESIAS ? Accession #: ? [id number] ? : ? 1940 (Age: 72) ??M [...] Co de Phone Number DIVYA BERRY [address] [place] [address] documented in this encounter Visit Diagnoses Not on filedocumented in this encounter
--- OUTSIDE RECORDS SUMMARY | 2024-02-09 08:08 | XMS_ITS | Encounter Summary ---
Author Organization [facility] Address [address] [place] [address] Care Team Providers Care Auto Parker Name Role Phone Unknown, Provider Primary Care Provider [phone] Clem Olvera MD Primary Care Provider [phone] Encounter Details Date Type Department Care Team (Late st Contact Info) Description 11/29/2015 Pre-Procedure Orders Encounter [facility] [address] [place], [place] [id number] Navdeep Hurd MD [address] [place] [address] [address] Social History Tobacco Use Types [...] Patient: Nabil Streeter. Attending: Dr. Moran Scrrajinder Burrer Operator: Dr. Fantasma Dhillon History/indication: The patient is [...] Patient: Nabil Streeter Attending: Dr. Dean Bailey Burrer Operator: Dr. Fantasma Dhillon History/indication: The patient is [...] filedocumented in this encounter Care Teams Auto Parker Relationship Specialty Start Date End Date Unknown, Provider, PCP - General 12/06/12 12/17/15 Clem Olvera MD [address] [place] [address] PCP - General 12/18/15 documented as of this encounter
--- OUTSIDE RECORDS SUMMARY | 2024-02-09 08:08 | XMS_ITS | Clinical Summary ---
Author Organization [facility] Address [address] [place] [address] Care Team Providers Care Technology Applications Teacher Name Role Phone Clem Olvera MD Primary Care Provider [phone] Allergies No known active allergies Medications Medication [...] - 05/03/20032013 second pacemaker [facility] Medical History Medical History Date Comments [...] Advance Directives For more information, please contact: [phone] * Full Code (Latest Code Status on File) Date Activated Date Inactivated Comments 02/27/2016 8:49 02/28/2016 15:40 Question Answer Comments Reason for decision includes: Full code consistent with overall plan of care Who participated in the discussion? Not Discusse d Care Teams Technology Applications Teacher Relationship Specialty Start Date End Date Clem Olvera MD [address] [place] [address] PCP - General 12/18/15
--- OUTSIDE RECORDS SUMMARY | 2024-02-09 08:09 | XMS_ITS | Encounter Summary ---
[place] [address] Care Team Providers Care Director Account Management Name Role Phone Donny Cooper MD Primary Care Provider [phone] Encounter Details Date Type Department Care Team (Latest Contact Info) Description 04/08/2022 10:00 AM EST - 04/08/2022 11:59 PM [facility] Hospital Encounter Non-[place] [address] Discharge Disposition: Home Social History Tobacco Use [...] Hospital Encounter Non-Invasive [place] [address] Arrived documented as of this [...] filedocumented in this encounter Care Teams Director Account Management Relationship Specialty Start Date End Date Donny Cooper MD [address] [place] [address] PCP - General Family Medicine 02/25/19 documented as of this encounter
--- OUTSIDE RECORDS SUMMARY | 2024-02-09 08:09 | XMS_ITS | Encounter Summary ---
Author Organization [facility] [place] [address] Care Team Providers Care Ammonia Technician Name Role Phone Donny Cooper MD Primary Care Provider [phone] Encounter Details Date Type Department Care Team (Latest Contact Info) Description 12/18/2020 11:57 AM EDT - 12/18/2020 11:59 PM EDT Hospital Encounter Non-Invasive [place] [address] Maged Arguelles MD [facility] [place] [address] Cardiomyopathy, primary Discharge Disposition: Home Social History [...] AM EST Hospital Encounter Non-Invasive [place] [address] Arrived documented as of this encounter Procedures Procedure Name Priority Date/Time Associated Diagnosis Comments ICD INTERROGATION 3 MONTH Routine 12/18/2020 12:00 PM EDT Cardiomyopathy, primary documented in this encounter Results * ICD INTERROGATION 3 MONTH (12/18/2020 12:00 PM EDT) Anatomical Region Laterality Modality Other Narrative 12/23/2020 11:08 PM EDT MDT DIRECTOR OF RESTAURANT-D remote reviewed. Normal device function. Inadequate DIRECTOR OF RESTAURANT at 80%. Maged Arguelles MD [facility] Cardiac Electrophysiology 12/23/2020 11:06 PM Maged Arguelles MD IMPLANTABLE CARDIAC DEVICE documented in this encounter Visit Diagnoses Diagnosis Cardiomyopathy, primary Other primary cardiomyopathies documented in this encounter Care Teams Ammonia Technician Relationship Specialty Start Date End Date Donny Cooper MD [address] [facility] [address] [place] [address] PCP - General Family Medicine 02/25/19 documented as of this encounter
--- OUTSIDE RECORDS SUMMARY | 2024-02-09 08:09 | XMS_ITS | Encounter Summary ---
[place] [address] Care Team Providers Care Ab Initio Etl Developer Name Role Phone Donny Cooper MD Primary Care Provider [phone] Encounter Details Date Type Department Care Team [...] st Contact Info) Description 05/02/2024 10:[address] [facility] Hospital Encounter [place] [address] Arrived documented as of this encounter Visit Diagnoses Not on filedocumented in this encounter Care Teams Ab Initio Etl Developer Relationship Specialty Start Date End Date Donny Cooper MD [address] [place] [address] PCP - General Family Medicine 02/25/19 documented as of this encounter
--- OUTSIDE RECORDS SUMMARY | 2024-02-09 08:09 | XMS_ITS | Encounter Summary ---
Author Organization [facility] [place] [address] Care Team Providers Care Gear Nicker Name Role Phone Marques Martinez MD Primary Care Provider [phone] Encounter Details Date Type Department Care Team (Late st Contact Info) Description 05/01/2010 3:10 PM EST Office Visit [place] [address] Jairon Fenton MD [facility] [place] [address] Discharge Disposition: Home Social History Tobacco Use [...] AM EST Hospital Encounter Non-[place] [address] Arrived documented as of this encounter Visit Diagnoses Not on filedocumented in this encounter Care Teams Gear Nicker Relationship Specialty Start Date End Date Marques Martinez MD [address] [place] [address] PCP - General 04/01/10 04/08/11 documented as of this encounter
--- OUTSIDE RECORDS SUMMARY | 2024-02-09 08:09 | XMS_ITS | Encounter Summary ---
Author Organization [facility] [place] [address] Care Team Providers Care Charge Loader Name Role Phone Donny Cooper MD Primary Care Provider [phone] Encounter Details Date Type Department Care Team (Latest Contact Info) Description 06/25/2021 3:23 PM EST - 06/25/2021 11:59 PM EST Hospital Encounter Non-[place] [address] Alber Seals MD [facility] [place] [address] Cardiomyopathy, primary Discharge Disposition: Home Social History [...] AM EST Hospital Encounter Non-[place] [address] Arrived documented as of this encounter Procedures Procedure Name Priority Date/Time Associated Diagnosis Comments ICD INTERROGATION 3 MONTH Routine 06/25/2021 3:24 PM EST Cardiomyopathy, primary documented in this encounter Results * ICD INTERROGATION 3 MONTH (06/25/2021 3:24 PM EST) Anatomical Region Laterality Modality Other Narrative 06/25/2021 3:42 PM EST Cardiac Device Remote Monitoring Report Summary [employer]tronic Carelink Device: EDGER OPERATOR-D Model: VIVA QUAD Battery: 2.95 v, estimated longevity 2 years 6 months Pacing percentage: 90% EDGER OPERATOR paced Events: Presenting rhythm: atrial paced/biventricular paced Frequent PVC's Impression Normal device function Follow Up As per schedule - in-clinic and remote ALBER SEALS MD 06/25/21 Alber Seals MD IMPLANTABLE CARDIAC DEVICE documented in this encounter Visit Diagnoses Diagnosis Cardiomyopathy, primary Other primary cardiomyopathies documented in this encounter Care Teams Charge Loader Relationship Specialty Start Date End Date Donny Cooper MD [address] [place] [address] PCP - General Family Medicine 02/25/19 documented as of this encounter
--- OUTSIDE RECORDS SUMMARY | 2024-02-09 08:09 | XMS_ITS | Encounter Summary ---
[place] [address] Care Team Providers Care Railroad Signal Technician Name Role Phone Donny Cooper MD Primary Care Provider [phone] Encounter Details Date Type Department Care Team (Latest Contact Info) Description 04/03/2023 10:00 AM EST - 04/03/2023 11:59 PM [facility] Hospital Encounter Non-Invasive [place] [address] Discharge Disposition: Home Social History Tobacco Use [...] st Contact Info) Description 05/02/2024 10:00 AM [facility] Hospital Encounter Non-Invasive [place] [address] Arrived documented as of [...] on filedocumented in this encounter Care Teams Railroad Signal Technician Relationship Specialty Start Date End Date Donny Cooper MD [address] [place] [address] PCP - General Family Medicine 02/25/19 documented as of this encounter
--- OUTSIDE RECORDS SUMMARY | 2024-02-09 08:09 | XMS_ITS | Encounter Summary ---
[place] [address] Care Team Providers Care Resource Conservationist Name Role Phone Donny Cooper MD Primary Care Provider [phone] Encounter Details Date Type Department Care Team (Latest Contact Info) Description 07/02/2023 10:00 AM EST - 07/02/2023 11:59 PM EST Hospital Encounter Non-[place] [address] Discharge Disposition: Home Social History Tobacco Use [...] st Contact Info) Description 05/02/2024 10:00 AM [facility] Hospital Encounter Non-[place] [address] Arrived documented as of this encounter Visit Diagnoses Not on filedocumented in this encounter Care Teams Resource Conservationist Relationship Specialty Start Date End Date Donny Cooper MD [address] [place] [address] PCP - General Family Medicine 02/25/19 documented as of this encounter
--- OUTSIDE RECORDS SUMMARY | 2024-02-09 08:09 | XMS_ITS | Encounter Summary ---
[place] [address] Care Team Providers Care Careers Counsellor Name Role Phone Donny Cooper MD Primary Care Provider [phone] Encounter Details Date Type Department Care Team (Late st Contact Info) Description 06/14/2020 Telephone Cardiology at [address] [address] Nhung Briggs Social History Tobacco Use Types [...] He would like to be seen at [facility]. Email sent to Brittaney Hernandez at [facility] asking her to reach out to pt to set up the appt with either Dr. Arguelles or LANG Albert. Nhung Allen Electrophysiology Scheduling [id number] option 2 documented in this encounter Plan of Treatment Upcoming Encounters Date Type Department Care Team (Late st Contact Info) Description 05/02/2024 10:00 AM EST Hospital Encounter Non-Invasive [place] [address] Arrived documented as of this encounter Visit Diagnoses Not on filedocumented in this encounter Care Teams Careers Counsellor Relationship Specialty Start Date End Date Donny Cooper MD [address] [place] [address] PCP - General Family Medicine 02/25/19 documented as of this encounter
--- OUTSIDE RECORDS SUMMARY | 2024-02-09 08:09 | XMS_ITS | Encounter Summary ---
Author Organization [facility] [place] [address] Care Team Providers Care Blending Tank Helper Name Role Phone Marques Martinez MD Primary Care Provider [phone] Reason for Visit * Reason Comments Follow Up Fracture PATELLA FX DOI 03/23 10 Encounter Details Date Type Department Care Team (Late st Contact Info) Description 10/09/2010 12:40 PM EDT Office [place] [address] Jairon Gustafson MD [facility] [place] [address] Jose Francisco Bee PA [facility] [place] [address] Quadriceps tendon rupture (Primary Dx) Discharge Disposition: [...] Contact Info) Description 05/02/2024 10:00 AM [facility] Hospital Encounter [place] [address] Arrived documented as of this encounter Visit Diagnoses Diagnosis Quadriceps tendon rupture- Primary Sprain and strain of other specified sites of knee and leg documented in this encounter Care Teams Blending Tank Helper Relationship Specialty Start Date End Date Marques Martinez MD [address] [place] [address] PCP - General 04/01/10 04/08/11 documented as of this encounter
--- OUTSIDE RECORDS SUMMARY | 2024-02-09 08:09 | XMS_ITS | Encounter Summary ---
Author Organization [facility] [place] [address] Care Team Providers Care [place] Marshal Name Role Phone Clem Olvera MD Primary Care Provider [phone] Reason for Visit * Reason Comments Follow Up Fracture SP PATELLA FX DO12/12 DOI 03/30/10 Encounter Details Date Type Department Care Team (Late st Contact Info) Description 04/09/2011 1:30 PM EST Office [place] [address] Jairon Gustafson MD [facility] [place] [address] Jose Francisco Bee PA [facility] [place] [address] Patella fracture (Primary Dx) Discharge Disposition: Home [...] AM EST Hospital Encounter Non-[place] [address] Arrived documented as of this encounter Visit Diagnoses Diagnosis Patella fracture- Primary Closed fracture of patella documented in this encounter Care Teams [place] Marshal Relationship Specialty Start Date End Date Clem Olvera MD [address] [place] [address] PCP - General 04/09/11 02/24/19 documented as of this encounter
--- OUTSIDE RECORDS SUMMARY | 2024-02-09 08:09 | XMS_ITS | Encounter Summary ---
[place] [address] Care Team Providers Care Glove Maker Name Role Phone Donny Cooper MD Primary Care Provider [phone] Encounter Details Date Type Department Care Team (Latest Contact Info) Description 01/03/2023 10:00 AM EDT - 01/03/2023 11:59 PM EDT Hospital Encounter Non-[place] [address] Discharge Disposition: Home Social History Tobacco Use [facility] Non[place] [address] Arrived documented as of this [...] filedocumented in this encounter Care Teams Glove Maker Relationship Specialty Start Date End Date Donny Cooper MD [address] [place] [address] PCP - General Family Medicine 02/25/19 documented as of this encounter
--- OUTSIDE RECORDS SUMMARY | 2024-02-09 08:09 | XMS_ITS | Encounter Summary ---
[place] [address] Care Team Providers Care Document Image Technician Name Role Phone Donny Cooper MD Primary Care Provider [phone] Encounter Details Date Type Department Care Team (Late st Contact Info) Description 01/05/2024 Telephone Cardiology at [address] [address] Kanika Shell Social History Tobacco [...] AM EST Hospital Encounter Non-[place] [address] Arrived documented as of this encounter Visit Diagnoses Not on filedocumented in this encounter Care Teams Document Image Technician Relationship Specialty Start Date End Date Donny Cooper MD [address] [place] [address] PCP - General Family Medicine 02/25/19 documented as of this encounter
--- OUTSIDE RECORDS SUMMARY | 2024-02-09 08:09 | XMS_ITS | Encounter Summary ---
[place] [address] Care Team Providers Care Claims Consultant Name Role Phone Donny Cooper MD Primary Care Provider [phone] Encounter Details Date Type Department Care Team (Latest Contact Info) Description 11/04/2023 10:00 AM EDT - 11/04/2023 11:59 PM EDT Hospital Encounter Non-Invasive [place] [address] Discharge Disposition: Home Social History Tobacco Use [...] st Contact Info) Description 05/02/2024 10:00 AM [facility] Hospital Encounter Non-Invasive [place] [address] Arrived documented as of [...] on filedocumented in this encounter Care Teams Claims Consultant Relationship Specialty Start Date End Date Donny Cooper MD [address] [place] [address] PCP - General Family Medicine 02/25/19 documented as of this encounter
--- OUTSIDE RECORDS SUMMARY | 2024-02-09 08:09 | XMS_ITS | Encounter Summary ---
[place] [address] Care Team Providers Care K9 Handler Name Role Phone Donny Cooper MD Primary Care Provider [phone] Encounter Details Date Type Department Care Team (Late st Contact Info) Description 12/28/2023 Notes Only Cardiology at [address] [address] Kanika Shell Social History Tobacco Use Types [...] st Contact Info) Description 05/02/2024 10:00 AM [facility] Hospital Encounter Non-[place] [address] Arrived documented as of this encounter Visit Diagnoses Not on filedocumented in this encounter Care Teams K9 Handler Relationship Specialty Start Date End Date Donny Cooper MD [address] [place] [address] PCP - General Family Medicine 02/25/19 documented as of this encounter
--- OUTSIDE RECORDS SUMMARY | 2024-02-09 08:09 | XMS_ITS | Encounter Summary ---
Author Organization [facility] [place] [address] Care Team Providers Care Evp Managing Director Name Role Phone Marques Martinez MD Primary Care Provider Encounter Details Date Type Department Care Team (Late st Contact Info) Description 09/11/2010 Orders Only [place] [address] Jairon Fenton MD [facility] [place] [address] Fracture of patella, left, closed (Primary Dx) [...] AM [facility] Hospital Encounter Non-Invasive [place] [address] Arrived documented as of this encounter Visit Diagnoses Diagnosis Fracture of patella, left, closed- Primary Closed fracture of patella documented in this encounter Care Teams Evp Managing Director Relationship Specialty Start Date End Date Marques Martinez MD [address] [place] [address] PCP - General 04/01/10 04/08/11 documented as of this encounter
--- OUTSIDE RECORDS SUMMARY | 2024-02-09 08:09 | XMS_ITS | Encounter Summary ---
Author Organization [facility] [place] [address] Care Team Providers Care Regional Vice President Life Sales Name Role Phone Marques Martinez MD Primary Care Provider [phone] Encounter Details Date Type Department Care Team (Late st Contact Info) Description 03/30/2010 [place] [id number] Javier Barajas MD [facility] [place] [address] Social History Tobacco Use Types Packs/Day Years [...] AM EST Hospital Encounter [place] [address] Arrived documented as of this encounter Procedures [...] Jairon Fenton MD CHEMISTRY ORDERABLES [facility] * (ABNORMAL) CREATININE, SERUM (04/01/2010 6:09 [...] Fenton MD CHEMISTRY ORDERABLES Performing Organization Address [facility] de Phone Number CERNER CHRISTOSENNIUM * BUN (04/01/2010 6:09 AM EST) Blood Urea Nitrogen 12 10 - 20 mg/dL CERNER MILLENNIUM Blood specimen (specimen) 04/01/2010 6:09 AM EST 04/01/2010 6:09 AM EST Jairon Fenton MD CHEMISTRY ORDERABLES Performing Organization Address [facility] de Phone Number [...] MD HEMATOLOGY ORDERABLE S Performing Organization Address [facility] de Phone Number CERIVIS MILLENNIUM * HEPATIC [...] Fenton MD CHEMISTRY ORDERABLES Performing Organization Address [facility] Phone Number CERIVIS MILLENNIUM * [...] Fenton MD CHEMISTRY ORDERABLES Performing Organization Address [facility] Co de Phone Number CERIVIS MILLENNIUM * CREATININE, SERUM (03/30/2010 6:05 PM EST) Creatinine 0.87 0.80 - 1.50 mg/dL [facility] Est Glomerular Filtration Rate >60 >=60 [facility] SEGOVIA Comment: The National Kidney Disease [...] Urea Nitrogen 18 10 - 20 mg/dL [facility] Blood specimen (specimen) 03/30/2010 6:05 PM EST 03/30/2010 6:13 PM EST Jairon Fenton MD CHEMISTRY ORDERABLES Performing Organization Address [facility] de Phone Number DEJA MOSQUEDAIUM * APTT (03/30/2010 6:05 PM EST) Partial Thromboplastin Time 26 25 - 37 sec CERNER MILLENNIUM Comment: Recommended therapeutic PTT range for full dose unfractionated heparin is 80-114 seconds. Blood specimen (specimen) 03/30/2010 6:05 PM EST 03/30/2010 6:14 PM EST Jairon Fenton MD HEMATOLOGY ORDERABLE S Performing Organization Address [facility] Phone Number DEJA SEGOVIA * PROTIME-INR (03/30/2010 6:05 PM EST) Prothrombin Time 14.2 12.3 - 14.7 sec [facility] MOSQUEDAIUM Comment: [facility] Transfusion Committee Guidelines: INR less than 2.0, PTT less than OR equal to 43.5 seconds, or Fibrinogen greater than or equal to 100 mg/dl indicate adequate procoagulant activity for hemostasis in patients without underlying bleeding disorders. International Normalization Ratio 1.1 0.9 - 1.1 [facility] MOSQU[facility]UM Blood specimen (specimen) 03/30/2010 6:05 PM EST 03/30/2010 6:14 PM EST Jairon Fenton MD HEMATOLOGY ORDERABLE S Performing Organization Address [facility] de Phone Number [...] 46.0 fL [facility] RDW coefficient of variation 13.1 10.9 - 14.4 % [facility] Mean Platelet Volume 10.6 9.0 - 12.0 fL [facility] Blood specimen (specimen) 03/30/2010 6:05 PM EST 03/30/2010 6:13 PM EST Jairon Fenton MD HEMATOLOGY ORDERABLE S Performing Organization Address City/[facility] Co de Phone Number [facility] * REFLEX LAB-ANTIBODY SCREEN (03/30/2010 3:17 PM EST) [facility] Ab Screen Interp Negative [facility] Expires at [id number] on: [id number] [facility] Blood specimen (specimen) 03/30/2010 3:17 PM EST 03/30/2010 3:17 PM EST Javier Barajas MD BLOOD BANK LAB ORDER PRECIOUS Performing Organization Address [facility] Co de Phone Number [facility] * REFLEX LAB-ABO/RH (03/30/2010 3:17 PM EST) [facility] ABORH Type A Pos [facility] Blood specimen (specimen) 03/30/2010 3:17 PM EST 03/30/2010 3:17 PM EST Javier Barajas MD BLOOD BANK LAB ORDER PRECIOUS Performing Organization Address [facility] Co de Phone Number [facility] * ELECTROLYTE PANEL (03/30/2010 2:50 PM EST) [facility] Sodium 135 135 - 145 mmol/L [facility] Potassium 4.3 3.5 - 5.0 mmol/L [facility] Comment: Please note: ??Patients with WBC >100,000 [...] PM EST Javier Barajas MD CHEMISTRY ORDERABLES [facility] MOSQU[facility] * CREATININE, SERUM (03/30/2010 2:50 [...] Barajas MD CHEMISTRY ORDERABLES Performing Organization Address [facility] Phone Number [facility] * BUN (03/30/2010 2:50 PM EST) Blood Urea Nitrogen 18 10 - 20 mg/dL [facility] Blood specimen (specimen) 03/30/2010 2:50 PM EST 03/30/2010 3:05 PM EST Javier Barajas MD CHEMISTRY ORDERABLES Performing Organization Address [facility] Phone Number [facility] * GLUCOSE, RANDOM (03/30/2010 2:50 PM EST) Glucose 95 <=199 mg/dL [facility] Comment:Diabetes: >=200 mg/d L plus symptoms Blood specimen (specimen) 03/30/2010 2:50 PM EST 03/30/2010 3:05 PM EST Javier Barajas MD CHEMISTRY ORDERABLES Performing Organization Address [facility] Phone Number [facility] * APTT (03/30/2010 2:50 PM EST) Partial Thromboplastin Time 25 25 - 37 sec [facility] Comment: Recommended therapeutic PTT range for full dose unfractionated heparin is 80-114 seconds. Blood specimen (specimen) 03/30/2010 2:50 PM EST 03/30/2010 3:06 PM EST Javier Barajas MD HEMATOLOGY ORDERABLE S Performing Organization Address [facility] Phone Number [facility] * PROTIME-INR (03/30/2010 2:50 PM EST) Prothrombin Time 14.1 12.3 - 14.7 sec [facility] Comment: [facility] Transfusion Committee Guidelines: INR less [...] on filedocumented in this encounter Care Teams Regional Vice President Life Sales Relationship Specialty Start Date End Date Marques Martinez MD [address] [place] [address] PCP - General 04/01/10 04/08/11 documented as of this encounter
--- OUTSIDE RECORDS SUMMARY | 2024-02-09 08:09 | XMS_ITS | Encounter Summary ---
Author Organization [facility] [place] [address] Care Team Providers Care Hand Candle Molder Name Role Phone Marques Martinez MD Primary Care Provider [phone] Encounter Details Date Type Department Care Team (Late st Contact Info) Description 10/09/2010 11:35 AM EDT - 10/09/2010 11:59 PM EDT Hospital Encounter XRay at [address] [place] [address] Social History Tobacco Use Types [...] AM EST Hospital Encounter Non-Invasive Cardiology Lab [facility] [place] [address] Arrived documented as of this encounter Visit Diagnoses Not on filedocumented in this encounter Care Teams Hand Candle Molder Relationship Specialty Start Date End Date Marques Martinez MD [address] [place] [address] PCP - General 04/01/10 04/08/11 documented as of this encounter
--- OUTSIDE RECORDS SUMMARY | 2024-02-09 08:09 | XMS_ITS | Encounter Summary ---
Author Organization [facility] [address] Care Team Providers Care Adobe Flex Developer Name Role Phone Donny Cooper MD Primary Care Provider [phone] Encounter Details Date Type Department Care Team (Latest Contact Info) Description 06/13/2020 12:35 PM EST - 06/13/2020 11:59 PM EST Hospital Encounter [place] [address] Alber Seals MD [facility] [place] [address] Cardiomyopathy, primary Discharge Disposition: Home Social History [...] AM EST Hospital Encounter [place] [address] Arrived documented as of this encounter Procedures Procedure Name Priority Date/Time Associated Diagnosis Comments ICD INTERROGATION 3 MONTH Routine 06/13/2020 12:36 PM EST Cardiomyopathy, primary documented in this encounter Results * ICD INTERROGATION 3 MONTH (06/13/2020 12:36 PM EST) Anatomical Region Laterality Modality Other Narrative 06/14/2020 10:38 AM EST Cardiac Device Remote Monitoring Report Summary Medtronic [id number] 06/14/20 Device: SAFETY SPECIALIST-D Model: VIVA QUAD Battery: 2.96 v, estimated longevity 3 years, 11 months Pacing percentage: 78% ventricular paced Events: The presenting rhythm is atrial paced with biventricular pacing and frequent ventricular premature contractions No significant arrhythmias Impression Normal device function; suboptimal SAFETY SPECIALIST pacing likely secondary to frequent PVCs. Should consider in clinic follow-up for further evaluation Follow Up As per schedule - in-clinic and remote ALBER SEALS MD Alber Seals MD IMPLANTABLE CARDIAC DEVICE documented in this encounter Visit Diagnoses Diagnosis Cardiomyopathy, primary Other primary cardiomyopathies documented in this encounter Care Teams Adobe Flex Developer Relationship Specialty Start Date End Date Donny Cooper MD [address] [place] [address] PCP - General Family Medicine 02/25/19 documented as of this encounter
--- OUTSIDE RECORDS SUMMARY | 2024-02-09 08:09 | XMS_ITS | Encounter Summary ---
[place] [address] Care Team Providers Care Egyptologist Name Role Phone Marques Martinez MD Primary Care Provider [phone] Encounter Details Date Type Department Care Team (Late st Contact Info) Description 05/01/2010 2:40 PM EST Procedure visit [place] [address] Social History Tobacco Use Types Packs/Day Years [...] AM EST Hospital Encounter Non-[place] [address] Arrived documented as of this encounter Visit Diagnoses Not on filedocumented in this encounter Care Teams Egyptologist Relationship Specialty Start Date End Date Marques Martinez MD [address] [place] [address] PCP - General 04/01/10 04/08/11 documented as of this encounter
--- OUTSIDE RECORDS SUMMARY | 2024-02-09 08:09 | XMS_ITS | Encounter Summary ---
[place] [address] Care Team Providers Care Concert Or Lecture Hall Manager Name Role Phone Marques Martinez MD Primary Care Provider [phone] Encounter Details Date Type Department Care Team (Late st Contact Info) Description 06/12/2010 2:00 PM EST Procedure [place] [address] Social History Tobacco Use Types Packs/Day Years [...] AM EST Hospital Encounter Non-Invasive [place] [address] Arrived documented as of this encounter Visit Diagnoses Not on filedocumented in this encounter Care Teams Concert Or Lecture Hall Manager Relationship Specialty Start Date End Date Marques Martinez MD [address] [place] [address] PCP - General 04/01/10 04/08/11 documented as of this encounter
--- OUTSIDE RECORDS SUMMARY | 2024-02-09 08:09 | XMS_ITS | Encounter Summary ---
Author Organization [facility] [place] [address] Care Team Providers Care Counseling Specialist Name Role Phone Marques Martinez MD Primary Care Provider [phone] Encounter Details Date Type Department Care Team (Late st Contact Info) Description 06/12/2010 2:10 PM EST Office [place] [address] Jairon Fenton MD [facility] [place] [address] Discharge Disposition: Home Social History Tobacco Use [...] AM EST Hospital Encounter Non-Invasive [place] [address] Arrived documented as of this encounter Visit Diagnoses Not on filedocumented in this encounter Care Teams Counseling Specialist Relationship Specialty Start Date End Date Marques Martinez MD [address] [place] [address] PCP - General 04/01/10 04/08/11 documented as of this encounter
--- OUTSIDE RECORDS SUMMARY | 2024-02-09 08:09 | XMS_ITS | Encounter Summary ---
Author Organization [facility] [place] [address] Care Team Providers Care Olive Knocker Name Role Phone Donny Cooper MD Primary Care Provider [phone] Encounter Details Date Type Department Care Team (Latest Contact Info) Description 10/03/2022 10:00 AM EDT Office Visit Cardiology at [address] [address] Eleno No [place] [facility] [place] [address] Cardiomyopathy, primary; Presence of cardiac resynchronization therapy defibrillator (SCHEDULING MANAGER-D); Diaphragmatic stimulation by cardiac pacemaker, initial [...] original note were not included. Cardiac Device SCHEDULING MANAGER-D Programming Evaluation Nabil Iglesias [id number] 10/03/2022 History: Mr. 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 [...] AM EST Hospital Encounter [place] [address] Arrived documented as of this encounter Procedures Procedure Name Priority Date/Time Associated Diagnosis Comments EKG 12-LEAD Routine 10/03/2022 11:00 AM EDT Cardiomyopathy, primary Presence of cardiac resynchronization therapy defibrillator (SCHEDULING MANAGER-D) Diaphragmatic stimulation by cardiac pacemaker, initial encounter documented in this encounter Results * EKG 12 Lead (10/03/2022 11:00 AM EDT) Ventricular rate 74 BPM MUSE SYSTEM Atrial Rate 74 BPM MUSE SYSTEM P-R Interval 154 ms MUSE SYSTEM QRS Duration 162 ms MUSE SYSTEM Q-T Interval 470 ms MUSE SYSTEM QTC Calculated (Bezet) 521 ms MUSE SYSTEM Calculated P [place] 30 degrees MUSE SYSTEM Calculated R [place] -98 degrees MUSE SYSTEM Calculated T [place] 41 degrees MUSE SYSTEM INTERPRETATION Atrial-sense d [...] cardiomyopathies Presence of cardiac resynchronization therapy defibrillator (SCHEDULING MANAGER-D) Diaphragmatic stimulation by cardiac pacemaker, initial encounter documented in this encounter Care Teams Olive Knocker Relationship Specialty Start Date End Date Donny Cooper MD [address] [place] [address] PCP - General Family Medicine 02/25/19 documented as of this encounter
--- OUTSIDE RECORDS SUMMARY | 2024-02-09 08:09 | XMS_ITS | Encounter Summary ---
[place] [address] Care Team Providers Care Nursing Center Tutor Name Role Phone Donny Cooper MD Primary Care Provider [phone] Encounter Details Date Type Department Care Team (Latest Contact Info) Description 08/06/2023 10:00 AM EDT - 08/06/2023 11:59 PM EDT Hospital Encounter Non-[place] [address] Discharge Disposition: Home Social History Tobacco Use [...] st Contact Info) Description 05/02/2024 10:00 AM [facility] Hospital Encounter Non-[place] [address] Arrived documented as of this encounter Visit Diagnoses Not on filedocumented in this encounter Care Teams Nursing Center Tutor Relationship Specialty Start Date End Date Donny Cooper MD [address] [place] [address] PCP - General Family Medicine 02/25/19 documented as of this encounter
--- OUTSIDE RECORDS SUMMARY | 2024-02-09 08:09 | XMS_ITS | Encounter Summary ---
[place] [address] Care Team Providers Care Waiter/Waitress Cafeteria Name Role Phone Marques Martinez MD Primary Care Provider [phone] Encounter Details Date Type Department Care Team (Late st Contact Info) Description 10/03/2010 Abstract [place] [address] Marina Orosco, JADON Social History Tobacco Use [...] [facility] Hospital Encounter Non[place] [address] Arrived documented as of this encounter Visit Diagnoses Not on filedocumented in this encounter Care Teams Waiter/Waitress Cafeteria Relationship Specialty Start Date End Date Marques Martinez MD [address] [place] [address] PCP - General 04/01/10 04/08/11 documented as of this encounter
--- OUTSIDE RECORDS SUMMARY | 2024-02-09 08:09 | XMS_ITS | Encounter Summary ---
[place] [address] Care Team Providers Care Tool Grinder Operator Surface Name Role Phone Donny Cooper MD Primary Care Provider [phone] Encounter Details Date Type Department Care Team (Latest Contact Info) Description 02/02/2024 10:00 AM EDT - 02/02/2024 11:59 PM EDT Hospital Encounter Non-Invasive [place] [address] Discharge Disposition: Home Social History Tobacco Use [...] st Contact Info) Description 05/02/2024 10:00 AM [facility] Hospital Encounter Non-Invasive [place] [address] Arrived documented as of this encounter Visit Diagnoses Not on filedocumented in this encounter Care Teams Tool Grinder Operator Surface Relationship Specialty Start Date End Date Donny Cooper MD [address] [place] [address] PCP - General Family Medicine 02/25/19 documented as of this encounter
--- OUTSIDE RECORDS SUMMARY | 2024-02-09 08:09 | XMS_ITS | Encounter Summary ---
[place] [address] Care Team Providers Care Supervisor Dental Laboratory Name Role Phone Donny Cooper MD Primary Care Provider [phone] Encounter Details Date Type Department Care Team (Latest Contact Info) Description 10/05/2022 10:00 AM EDT - 10/05/2022 11:59 PM EDT Hospital Encounter Non-[place] [address] Discharge Disposition: Home Social History Tobacco Use [...] st Contact Info) Description 05/02/2024 10:00 AM [facility] Hospital Encounter Non-[place] [address] Arrived documented as of this [...] filedocumented in this encounter Care Teams Supervisor Dental Laboratory Relationship Specialty Start Date End Date Donny Cooper MD [address] [place] [address] PCP - General Family Medicine 02/25/19 documented as of this encounter
--- OUTSIDE RECORDS SUMMARY | 2024-02-09 08:09 | XMS_ITS | Encounter Summary ---
[place] [address] Care Team Providers Care Revenue Liaison Name Role Phone Donny Cooper MD Primary Care Provider [phone] Encounter Details Date Type Department Care Team (Latest Contact Info) Description 07/07/2022 10:00 AM EST - 07/07/2022 11:59 PM EST Hospital Encounter Non-Invasive [place] [address] Discharge Disposition: Home Social History Tobacco Use [...] AM EST Hospital Encounter Non-Invasive [place] [address] Arrived documented as of this [...] on filedocumented in this encounter Care Teams Revenue Liaison Relationship Specialty Start Date End Date Donny Cooper MD [address] [place] [address] PCP - General Family Medicine 02/25/19 documented as of this encounter
--- OUTSIDE RECORDS SUMMARY | 2024-02-09 08:09 | XMS_ITS | Encounter Summary ---
[place] [address] Care Team Providers Care Sand Temperer Name Role Phone Donny Cooper MD Primary Care Provider [phone] Encounter Details Date Type Department Care Team (Late st Contact Info) Description 03/17/2019 Telephone Cardiology at [address] [address] Sheri Quinn LNA Social History [...] EST Medication list reviewed with [facility] list. Please review with patient at next clinic visit. documented in this encounter Plan of Treatment Upcoming Encounters Date Type Department Care Team (Late st Contact Info) Description 05/02/2024 10:00 AM EST Hospital Encounter Non-In[place] [address] Arrived documented as of this encounter Visit Diagnoses Not on filedocumented in this encounter Care Teams Sand Temperer Relationship Specialty Start Date End Date Donny Cooper MD [address] [place] [address] PCP - General Family Medicine 02/25/19 documented as of this encounter
--- OUTSIDE RECORDS SUMMARY | 2024-02-09 08:09 | XMS_ITS | Encounter Summary ---
Author Organization [facility] [address] Care Team Providers Care Bank Guard Name Role Phone Donny Cooper MD Primary Care Provider [phone] Encounter Details Date Type Department Care Team (Late st Contact Info) Description 07/26/2019 Notes Only Cardiology at [address] [address] Maged Arguelles MD [facility] [address] Social History Tobacco Use Types Packs/Day Years [...] his Medtronic biventricular ICD is reviewed. Suboptimal HOSPITALITY INTERN at 84%. Normal device function. Awaiting Holter to assess PVC burden. Maged Arguelles MD S Cardiac Electrophysiology 07/26/2019 9:04 AM documented in this encounter Plan of Treatment Upcoming Encounters Date Type Department Care Team (Late st Contact Info) Description 05/02/2024 10:00 AM EST Hospital Encounter Non-Invasive [place] [address] Arrived documented as of this encounter Visit Diagnoses Not on filedocumented in this encounter Care Teams Bank Guard Relationship Specialty Start Date End Date Donny Cooper MD [address] [place] [address] PCP - General Family Medicine 02/25/19 documented as of this encounter
--- OUTSIDE RECORDS SUMMARY | 2024-02-09 08:09 | XMS_ITS | Encounter Summary ---
Author Organization [facility] Address [address] [place] [address] Care Team Providers Care Computer Systems Consultant Name Role Phone Unavailable Primary Care Provider Unavailabl e Encounter Details Date Type Department Care Team (Late st Contact Info) Description 05/06/2001 Results Only [facility] [address] [place] [address] Hernandez Partida MD [address] [place] [address] Social History Tobacco Use Types Packs/Day Years [...] MD PATHOLOGY ORDERABLES [facility] [address] [place] [address] documented in this encounter Visit Diagnoses Not on filedocumented in this encounter
--- OUTSIDE RECORDS SUMMARY | 2024-02-09 08:09 | XMS_ITS | Clinical Summary ---
Author Organization [facility] [place] [address] Care Team Providers Care Tree Deadener Name Role Phone Donny Cooper MD Primary Care Provider [phone] Allergies No known active allergies Medications Medication [...] PM EDT Hospital Encounter [place] [address] Discharge Disposition: Home 01/05/2024 Telephone Cardiology at [address] [address] Kanika Shell 12/28/2023 Notes Only Cardiology at [address] [address] Kanika Shell from Last 3 Months Immunizations Name Administration Dates Next Due Influenza Vaccine, Whole 02/01/2010,03/06/2006,1 Pneumococcal 23-Valent Polys accharide (Pneumovax 23) 05/04/2008 Social History Tobacco Use Types Packs/Day Years [...] AM EST Hospital Encounter [place] [address] Arrived Health Maintenance Due Date Last Done Comments Tetanus/Diphtheria/Pertussis Vaccines (1 - Tdap) 08/19/1959 Zoster vaccine (1 of 2) 1990 Advance Directive 08/19/1995 Pneumoccocal Vaccine: 65+ (2 of 2 - PCV) 05/04/2009 05/04/2008 Covid-19 Vaccine (1 - 2022- season) 2024 Influenza (Flu) vaccine (1 o f 1 - Influenza standard series) 01/03/2024 02/01/2010, 03/06/2006, 02/24/2005 Medical Devices Implanted Type Area Feed Mill Lab Technician Device Identifier Shelf Expiration Date Model / Serial / Lot Mdt : [id number] : [id number] Implanted: (Quantity not on file) Cardiac Resynchronization Therapy - Defibrillator Chest Medtronic - [id number] / [id number] / Care Teams Tree Deadener Relationship Specialty Start Date End Date Donny Cooper MD [address] [place] [address] PCP - General Family Medicine 02/25/19
[2024-02-09 08:28] VITALS: BP 125/71; PULSE 70
[2024-02-11 09:29] VITALS: BP 122/66; PULSE 57
--- OUTSIDE RECORDS SUMMARY | 2024-02-11 09:35 | XMS_ITS | Clinical Summary ---
Author Organization [facility] Address [address] [place] [address] Care Team Providers Care Medical Transcriptionist Name Role Phone Clem Olvera MD Primary Care Provider [phone] Allergies No known active allergies Medications Medication [...] PACEMAKER INSERTION 05/04/2002 - 05/03/20032013 second pacemaker [facility] Medical History Medical History Date [...] Advance Directives For more information, please contact: [phone] * Full Code (Latest Code Status on File) Date Activated Date Inactivated Comments 02/27/2016 8:49 02/28/2016 15:40 Question Answer Comments Reason for decision includes: Full code consistent with overall plan of care Who participated in the discussion? Not Discusse d Care Teams Medical Transcriptionist Relationship Specialty Start Date End Date Clem Olvera MD [address] [place] [address] PCP - General 12/18/15
--- OUTSIDE RECORDS SUMMARY | 2024-02-11 09:36 | XMS_ITS | Referral Summary ---
Author Organization [facility] Address [address] [place] [address] Care Team Providers Care Tucking Machine Operator Name Role Phone Clem Olvera MD Primary Care Provider [phone] Allergies No known active allergies Medications Medication [...] Advance Directives For more information, please contact: [phone] * Full Code (Latest Code Status on File) Date Activated Date Inactivated Comments 02/27/2016 8:49 02/28/2016 15:40 Question Answer Comments Reason for decision includes: Full code consistent with overall plan of care Who participated in the discussion? Not Discusse d Care Teams Tucking Machine Operator Relationship Specialty Start Date End Date Clem Olvera MD [address] [place] [address]011 PCP - General 12/18/15
--- OUTSIDE RECORDS SUMMARY | 2024-02-11 09:36 | XMS_ITS | Encounter Summary ---
[place] [address] Care Team Providers Care Case Therapist Name Role Phone Donny Cooper MD Primary Care Provider [phone] Encounter Details Date Type Department Care Team (Late st Contact Info) Description 06/14/2020 Telephone Cardiology at [address] [address] Nhung Briggs Social History Tobacco Use Types [...] would like to be seen at [facility]. Email sent to Brittaney Hernandez at [facility] asking her to reach out to pt to set up the appt with either Dr. Arguelles or LANG Albert. Nhung Allen Electrophysiology Scheduling [id number] option 2 documented in this encounter Plan of Treatment Upcoming Encounters Date Type Department Care Team (Late st Contact Info) Description 05/02/2024 10:00 AM EST Hospital Encounter Non-Invasive [place] [address] Arrived documented as of this encounter Visit Diagnoses Not on filedocumented in this encounter Care Teams Case Therapist Relationship Specialty Start Date End Date Donny Cooper MD [address] [place] [address] PCP - General Family Medicine 02/25/19 documented as of this encounter
--- OUTSIDE RECORDS SUMMARY | 2024-02-11 09:36 | XMS_ITS | Encounter Summary ---
Author Organization [facility] [place] [address] Care Team Providers Care Electrical Prospecting Supervisor Name Role Phone Marques Martinez MD Primary Care Provider [phone] Encounter Details Date Type Department Care Team (Late st Contact Info) Description 09/11/2010 Orders [place] [address] Jairon Fenton MD [facility] [place] [address] Fracture of patella, left, closed (Primary Dx) [...] st Contact Info) Description 05/02/2024 10:00 AM [facility] Hospital Encounter Non-[place] [address] Arrived documented as of this encounter Visit Diagnoses Diagnosis Fracture of patella, left, closed- Primary Closed fracture of patella documented in this encounter Care Teams Electrical Prospecting Supervisor Relationship Specialty Start Date End Date Marques Martinez MD [address] [place] [address] PCP - General 04/01/10 04/08/11 documented as of this encounter
--- OUTSIDE RECORDS SUMMARY | 2024-02-11 09:36 | XMS_ITS | Encounter Summary ---
Author Organization [facility] [place] [address] Care Team Providers Care Retail Director Name Role Phone Marques Martinez MD Primary Care Provider [phone] Encounter Details Date Type Department Care Team (Late st Contact Info) Description 06/12/2010 2:10 PM EST Office Visit [place] [address] Jairon Fenton MD [facility] [place] [address] Discharge Disposition: Home Social History Tobacco Use [...] AM EST Hospital Encounter [place] [address] Arrived documented as of this encounter Visit Diagnoses Not on filedocumented in this encounter Care Teams Retail Director Relationship Specialty Start Date End Date Marques Martinez MD [address] [place] [address] PCP - General 04/01/10 04/08/11 documented as of this encounter
--- OUTSIDE RECORDS SUMMARY | 2024-02-11 09:36 | XMS_ITS | Encounter Summary ---
Author Organization [facility] [place] [address] Care Team Providers Care Manufacturing Engineer Name Role Phone Marques Martinez MD Primary Care Provider [phone] Encounter Details Date Type Department Care Team (Late st Contact Info) Description 05/01/2010 3:10 PM EST Office [place] [address] Jairon Fenton MD [facility] [place] [address] Discharge Disposition: Home Social History Tobacco Use [...] AM EST Hospital Encounter Non-[place] [address] Arrived documented as of this encounter Visit Diagnoses Not on filedocumented in this encounter Care Teams Manufacturing Engineer Relationship Specialty Start Date End Date Marques Martinez MD [address] [place] [address] PCP - General 04/01/10 04/08/11 documented as of this encounter
--- OUTSIDE RECORDS SUMMARY | 2024-02-11 09:36 | XMS_ITS | Encounter Summary ---
[place] [address] Care Team Providers Care Back Roller Name Role Phone Donny Cooper MD Primary Care Provider [phone] Encounter Details Date Type Department Care Team (Latest Contact Info) Description 04/08/2022 10:00 AM EST - 04/08/2022 11:59 PM [facility] Hospital Encounter Non-Invasive [place] [address] Discharge Disposition: Home Social History Tobacco Use [...] AM EST Hospital Encounter Non-Invasive [place] [address] Arrived documented as of this [...] on filedocumented in this encounter Care Teams Back Roller Relationship Specialty Start Date End Date Donny Cooper MD [address] [place] [address] PCP - General Family Medicine 02/25/19 documented as of this encounter
--- OUTSIDE RECORDS SUMMARY | 2024-02-11 09:36 | XMS_ITS | Encounter Summary ---
Author Organization [facility] Address [address] [place] [address] Care Team Providers Care Editor Department Name Role Phone Clem Olvera MD Primary Care Provider [phone] Encounter Details Date Type Department Care Team (Latest Contact Info) Description 12/20/2015 10:52 EDT - 12/20/2015 23:52 EDT Hospital Encounter [facility] [address] [place] [address] Navdeep Hurd MD [address] [place] [address] [address] Discharge Disposition: Home or Self [...] need to beNPO or have a tractor driver. However, his will be accompanying him. They are driving someone to the airport [place] 1000 and then will come here and check-in around 1145. He agrees to have a shower. documented in this encounter Procedure Notes * Fantasma Dhillon MD - 12/20/2015 1356 EDT IR Brief Procedure Note Attending: Leo Church Administrator: Alejo Pre-op Dx: Arrhythmia, need for pacemaker [...] 12/19 documented in this encounter Care Teams Editor Department Relationship Specialty Start Date End Date Clem Olvera MD [address] [place] [address] PCP - General 12/18/15 documented as of this encounter
--- OUTSIDE RECORDS SUMMARY | 2024-02-11 09:36 | XMS_ITS | Encounter Summary ---
[place] [address] Care Team Providers Care Washing Machine Repairer Name Role Phone Donny Cooper MD Primary Care Provider [phone] Encounter Details Date Type Department Care Team (Late st Contact Info) Description 03/17/2019 Telephone Cardiology at [address] [place] [address] [address] Sheri Quinn LNA Social History [...] 11:46 AM EST Medication list reviewed with [facility] list. Please review with patient at next clinic visit. documented in this encounter Plan of Treatment Upcoming Encounters Date Type Department Care Team (Late st Contact Info) Description 05/02/2024 10:00 AM EST Hospital Encounter Non-Invasive [place] [address] Arrived documented as of this encounter Visit Diagnoses Not on filedocumented in this encounter Care Teams Washing Machine Repairer Relationship Specialty Start Date End Date Donny Cooper MD [address] [place] [address] PCP - General Family Medicine 02/25/19 documented as of this encounter
--- OUTSIDE RECORDS SUMMARY | 2024-02-11 09:36 | XMS_ITS | Encounter Summary ---
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 Procedures IMPLANTABLE CARDIAC DEFIBRILLATOR PROCEDURE Navdeep Hurd MD [address] [place], [place] [address] [address] [place] [address] Referral ID Status Reason Start Date Expiration Date Visits Re quested Visits Authorized [id number] Closed 02/13/2016 1 1 Encounter Details Date Type Department Care Team (Latest Contact Info) Description 02/13/2016 Pre-Procedure Orders Encounter [facility] CARDIOLOG[facility] [address] [place], [place] [address] Navdeep Hurd MD [address] [facility] [address] [place] [address] ICD (implantable cardioverter-defibril lator) battery [...] 8 EDT Narrative 02/27/2016 15:17 EDT *Cardiology* [address] [place] [address] Lead Revision (Report amended ) Patient: Nabil Iglesias ?Study Date: ?02/27/2016 ? Accession #: ? [id number] : ? 1940 Referring: Clem Olvera Attending: [...] 0.35 glide wire a Nick MENDOZAW 6F ([facility]) 6 mm-40 mm balloon dilation still [...] Venograms were performed in the MOORE and ITALIAN projections and a suitable mid-lateral LV branch [...] fascia. The leads were connected to a SITE WORKER-D device. Device and Lead detail in [...] Implanted device: Medtronic - Viva Quad XT SITE WORKER-D DF4 - Serial number: [id number] Explanted device: Medtronic - Viva XT SITE WORKER-D DF4 - Serial number: [id number]. LEAD PARAMETERS + + + + + [...] + + + + + Serial number [id number] ? [id number] ?? [id number] ?? [id number] ? + + + + [...] Gulshan Drummond MD - 05/12/2016 *Cardiology* [address] [place] [address] Lead Revision (Report amended ) Patient: Nabil [...] therefore over an 0.35 glide wire [facility] ([facility]) 6 mm-40 mm balloon dilation still [...] Venograms were performed in the MOORE and ITALIAN projections and a suitable mid-lateral LV branch [...] fascia. The leads were connected to a SITE WORKER-D device. Device and Lead detail in [...] Implanted device: Medtronic - Viva Quad XT SITE WORKER-D DF4 - Serial number: [id number] Explanted device: Medtronic - Viva XT SITE WORKER-D DF4 - Serial number: [id number]. LEAD PARAMETERS + + + + + + Lead # 1 2 3 4 + + + + + + Chamber RA RV LV LV + + + + + + Date 07/19/2002 07/18/2013 02/27/2016 07/18/2013 implanted + + + + + + Model St. Esa Medtronic Medtronic Enpath information [id number] Attain Epicardial Performa 4298 + + + + + + Serial number [id number] + + + + + + [...] situ documented in this encounter Care Teams Rolled Materials Worker Relationship Specialty Start Date End Date Clem Olvera MD [address] [place] [address] PCP - General 12/18/15 documented as of this encounter
--- OUTSIDE RECORDS SUMMARY | 2024-02-11 09:36 | XMS_ITS | Encounter Summary ---
[place] [address] Care Team Providers Care Financial Management Consultant Name Role Phone Donny Cooper MD Primary Care Provider [phone] Encounter Details Date Type Department Care Team [...] st Contact Info) Description 05/02/2024 10:00 AM [facility] Hospital Encounter [place] [address] Arrived documented as of this encounter Visit Diagnoses Not on filedocumented in this encounter Care Teams Financial Management Consultant Relationship Specialty Start Date End Date Donny Cooper MD [address] [place] [address] PCP - General Family Medicine 02/25/19 documented as of this encounter
--- OUTSIDE RECORDS SUMMARY | 2024-02-11 09:36 | XMS_ITS | Encounter Summary ---
[place] [address] Care Team Providers Care Gun Perforator Loader Name Role Phone Donny Cooper MD Primary Care Provider [phone] Encounter Details Date Type Department Care Team (Latest Contact Info) Description 08/06/2023 10:00 AM EDT - 08/06/2023 11:59 PM EDT Hospital Encounter [place] [address] Discharge Disposition: Home Social History Tobacco Use [...] st Contact Info) Description 05/02/2024 10:00 AM [email or web address] Hospital Encounter Non-[place] [address] Arrived documented as of this encounter Visit Diagnoses Not on filedocumented in this encounter Care Teams Gun Perforator Loader Relationship Specialty Start Date End Date Donny Cooper MD [address] [place] [address] PCP - General Family Medicine 02/25/19 documented as of this encounter
--- OUTSIDE RECORDS SUMMARY | 2024-02-11 09:36 | XMS_ITS | Encounter Summary ---
Author Organization [facility] Address [address] [place] [address] Care Team Providers Care Color Checker Roving Or Yarn Name Role Phone Unknown, Provider Primary Care Provider [phone] Clem Olvera MD Primary Care Provider [phone] Encounter Details Date Type Department Care Team (Late st Contact Info) Description 11/29/2015 Pre-Procedure Orders Encounter [facility] [address] [place], [place] [address] Navdeep Hurd MD [address] [place] [address] [address] Social History Tobacco Use Types [...] Patient: Nabil Streeter. Attending: Dr. Moran Scrrajinder Railcar Switchman: Dr. Fantasma Dhillon History/indication: The patient is [...] Patient: Nabil Streeter Attending: Dr. Dean Bailey Railcar Switchman: Dr. Fantasma Dhillon History/indication: The patient is [...] filedocumented in this encounter Care Teams Color Checker Roving Or Yarn Relationship Specialty Start Date End Date Unknown, Provider, PCP - General 12/06/12 12/17/15 Clem Olvera MD [address] [place] [address] PCP - General 12/18/15 documented as of this encounter
--- OUTSIDE RECORDS SUMMARY | 2024-02-11 09:36 | XMS_ITS | Encounter Summary ---
Author Organization [facility] [place] [address] Care Team Providers Care Specialty Finishing Utility Person Name Role Phone Donny Cooper MD Primary Care Provider [phone] Encounter Details Date Type Department Care Team (Late st Contact Info) Description 07/26/2019 Notes Only Cardiology at [address] [address] Maged Arguelles MD [facility] [place] [address] Social History Tobacco Use Types Packs/Day Years [...] his Medtronic biventricular ICD is reviewed. Suboptimal FLIGHT TEST DATA ACQUISITION TECHNICIAN at 84%. Normal device function. Awaiting Holter to assess PVC burden. Maged Arguelles MD S Cardiac Electrophysiology 07/26/2019 9:04 AM documented in this encounter Plan of Treatment Upcoming Encounters Date Type Department Care Team (Late st Contact Info) Description 05/02/2024 10:00 AM EST Hospital Encounter Non-Invasive [place] [address] Arrived documented as of this encounter Visit Diagnoses Not on filedocumented in this encounter Care Teams Specialty Finishing Utility Person Relationship Specialty Start Date End Date Donny Cooper MD [address] [place] [address] PCP - General Family Medicine 02/25/19 documented as of this encounter
--- OUTSIDE RECORDS SUMMARY | 2024-02-11 09:36 | XMS_ITS | Clinical Summary ---
Author Organization [facility] [place] [address] Care Team Providers Care Electrical Sign Wirer Helper Name Role Phone Donny Cooper MD Primary Care Provider [phone] Allergies No known active allergies Medications Medication [...] PM EDT Hospital Encounter Non-[place] [address] Discharge Disposition: Home 01/05/2024 Telephone Cardiology at [address] [address] Kanika Shell 12/28/2023 Notes Only Cardiology at [address] [address] Kanika Shell from Last 3 Months Immunizations [...] AM EST Hospital Encounter Non-[place] [address] Arrived Health Maintenance Due Date Last Done Comments Tetanus/Diphtheria/Pertussis Vaccines (1 - Tdap) 08/19/1959 Zoster vaccine (1 of 2) 1990 Advance Directive 08/19/1995 Pneumoccocal Vaccine: 65+ (2 of 2 - PCV) 05/04/2009 05/04/2008 Covid-19 Vaccine (1 - 2022- season) 2024 Influenza (Flu) vaccine (1 o f 1 - Influenza standard series) 01/03/2024 02/01/2010, 03/06/2006, 02/24/2005 Medical Devices Implanted Type Area Superintendent Building Device Identifier Shelf Expiration Date Model / Serial / Lot Mdt : [id number] : [id number] Implanted: (Quantity not on file) Cardiac Resynchronization Therapy - Defibrillator Chest Medtronic - [id number] / [id number] / Care Teams Electrical Sign Wirer Helper Relationship Specialty Start Date End Date Donny Cooper MD [address] [place] [address] PCP - General Family Medicine 02/25/19
--- OUTSIDE RECORDS SUMMARY | 2024-02-11 09:36 | XMS_ITS | Encounter Summary ---
Author Organization [facility] [place] [address] Care Team Providers Care Oncology Research Rn Name Role Phone Clem Olvera MD Primary Care Provider [phone] Reason for Visit * Reason Comments Follow Up Fracture SP PATELLA FX DO12/12 DOI 03/30/10 Encounter Details Date Type Department Care Team (Late st Contact Info) Description 04/09/2011 1:30 PM EST Office Visit [place] [address] Jairon Gustafson MD [facility] [place] [address] Jose Francisco Bee PA [facility] [place] [address] Patella fracture (Primary Dx) Discharge Disposition: Home [...] AM EST Hospital Encounter Non-Invasive [place] [address] Arrived documented as of this encounter Visit Diagnoses Diagnosis Patella fracture- Primary Closed fracture of patella documented in this encounter Care Teams Oncology Research Rn Relationship Specialty Start Date End Date Clem Olvera MD [address] [place] [address] PCP - General 04/09/11 02/24/19 documented as of this encounter
--- OUTSIDE RECORDS SUMMARY | 2024-02-11 09:36 | XMS_ITS | Encounter Summary ---
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
--- OUTSIDE RECORDS SUMMARY | 2024-02-11 09:36 | XMS_ITS | Encounter Summary ---
[facility] Organization [facility] [place] [address] Care Team Providers Care Senior Information Security Analyst Name Role Phone Donny Cooper MD Primary Care Provider [phone] Encounter Details Date Type Department Care Team (Latest Contact Info) Description 10/03/2022 10:00 AM EDT Office Visit Cardiology at [address] [address] Eleno No PA [facility] [place] [address] Cardiomyopathy, primary; Presence of cardiac resynchronization therapy defibrillator (WORK MEASUREMENT ENGINEER-D); Diaphragmatic stimulation by cardiac pacemaker, initial [...] note were not included. Cardiac Device WORK MEASUREMENT ENGINEER-D Programming Evaluation Nabil Iglesias [id number] 10/03/2022 History: Mr. 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 [...] AM EST Hospital Encounter Non-[place] [address] Arrived documented as of this encounter Procedures Procedure Name Priority Date/Time Associated Diagnosis Comments EKG 12-LEAD Routine 10/03/2022 11:00 AM EDT Cardiomyopathy, primary Presence of cardiac resynchronization therapy defibrillator (WORK MEASUREMENT ENGINEER-D) Diaphragmatic stimulation by cardiac pacemaker, initial encounter documented in this encounter Results * EKG 12 Lead (10/03/2022 11:00 AM EDT) Ventricular rate 74 BPM MUSE SYSTEM Atrial Rate 74 BPM MUSE SYSTEM P-R Interval 154 ms MUSE SYSTEM QRS Duration 162 ms MUSE SYSTEM Q-T Interval 470 ms MUSE SYSTEM QTC Calculated (Bezet) 521 ms MUSE SYSTEM Calculated P [place] 30 degrees MUSE SYSTEM Calculated R [place] -98 degrees MUSE SYSTEM Calculated T [place] 41 degrees MUSE SYSTEM INTERPRETATION Atrial-sense d [...] Presence of cardiac resynchronization therapy defibrillator (WORK MEASUREMENT ENGINEER-D) Diaphragmatic stimulation by cardiac pacemaker, initial encounter documented in this encounter Care Teams Senior Information Security Analyst Relationship Specialty Start Date End Date Donny Cooper MD [address] [place] [address] PCP - General Family Medicine 02/25/19 documented as of this encounter
--- OUTSIDE RECORDS SUMMARY | 2024-02-11 09:36 | XMS_ITS | Encounter Summary ---
[place] [address] Care Team Providers Care Utilization Management Um Nurse Name Role Phone Donny Cooper MD Primary Care Provider [phone] Encounter Details Date Type Department Care Team (Latest Contact Info) Description 01/03/2023 10:00 AM EDT - 01/03/2023 11:59 PM EDT Hospital Encounter Non-[place] [address] Discharge Disposition: Home Social History Tobacco Use [...] st Contact Info) Description 05/02/2024 10:00 AM [facility] Hospital Encounter Non-[place] [address] Arrived documented as of this [...] on filedocumented in this encounter Care Teams Utilization Management Um Nurse Relationship Specialty Start Date End Date Donny Cooper MD [address] [place] [address] PCP - General Family Medicine 02/25/19 documented as of this encounter
--- OUTSIDE RECORDS SUMMARY | 2024-02-11 09:36 | XMS_ITS | Encounter Summary ---
[place] [address] Care Team Providers Care Colon And Rectal Surgeon Name Role Phone Marques Martinez MD Primary Care Provider [phone] Encounter Details Date Type Department Care Team (Late st Contact Info) Description 06/12/2010 2:00 PM EST Procedure visit [place] [address] Social History Tobacco Use Types Packs/Day Years [...] AM EST Hospital Encounter Non-Invasive [place] [address] Arrived documented as of this encounter Visit Diagnoses Not on filedocumented in this encounter Care Teams Colon And Rectal Surgeon Relationship Specialty Start Date End Date Marques Martinez MD [address] [place] [address] PCP - General 04/01/10 04/08/11 documented as of this encounter
--- OUTSIDE RECORDS SUMMARY | 2024-02-11 09:36 | XMS_ITS | Encounter Summary ---
Author Organization [facility] Address [address] [place] [address] Care Team Providers Care Collections Associate Name Role Phone Clem Olvera MD Primary Care Provider [phone] Reason for Referral * (Routine) - Closed Specialty Diagnoses / Procedures Referred By Pedro madera Referred To Contact Beatrice De La Garza NP [address] [place] [phone] Referral ID Status Reason Start Date Expiration Date V isits Requested Visits Authorized [id number] Closed Specialty Services Required 02/27/2016 1 1 Comments You must contact us if we have not contacted you or you have missed your scheduled appointment. If you have any nursing questions, please don't hesitate to call the Cardiac Arrhythmia Service at [facility] at or , extension [phone]. For any scheduling of appointments, please call [phone] or , extension [phone]. . * (Routine) - Closed Specialty Diagnoses / Procedures Referred By Pedro madera Referred To Contact Beatrice De La Garza NP [address] [phone] Referral ID Status Reason Start Date Expiration Date V isits Requested Visits Authorized [id number] Closed Specialty Services Required 02/27/2016 1 1 Comments You have a pre existing appointment with Dr. Olvera on March 05 at 2:00, please have Dr. Olvera check your incision at that visit. * (Routine) - Closed Specialty Diagnoses / Procedures Referred By Contbecca t Referred To Contact Beatrice De La Garza NP [address] [address] Referral ID Status Reason Start Date Expiration Date V isits Requested Visits Authorized [id number] Closed Specialty Services Required 02/27/2016 1 1 [...] [facility] is located at [address] [facility] in [place] -Clinics are also held in [facility], and [place], [place] and [facility]. If you live in those areas, we will make arrangements for follow-up appointments in one of those clinics.. Encounter Details Date Type Department Care Team (Late st Contact Info) Description 02/27/2016 6:30 EDT - 02/28/2016 13:39 EDT Hospital Encounter [facility] Cardiac/Telemetry Unit [address] [place] [address] Gulshan Drummond MD PhD [address] [address] Gulshan Montoya Sa, MD [address] [facility] [address] [place] [phone] AICD lead malfunction, subsequent encounter; ICD [...] around May 2013, when he was in [place], [place]. This triggered major cardiac workup including [...] then underwent a device upgrade to a TOP WADDY-D device with biventricular pacing for his EF [...] followed in cardiology outreach clinic at [facility] in [place]. Continued high pacing threshold on the epicardial [...] and plans to follow up with his Sonography Technologist in [place] in 6-8 weeks for which he will arrange once he has arrived in [place]. He has been provided with the implant [...] HGBA1C Discharge Follow Up Appointments Scheduled with [facility] Appointments Outside of [facility] We Will Schedule Studies We Will Schedule Appointments We Recommend but have not been Scheduled Beatrice De La Garza NP 02/27/2016 10:59 Associated attestation - Gulshan Montoya Sa, MD - 02/28/2016 1519 EDT Attending Attestation: I saw and evaluated the patient. I discussed the case with the resident/PERCUSSION TUNER/fellow and agree with the findings and plan [...] Notes * Lou Alfonso RN - 02/28/2016 6346 EDT Pt awaiting discharge. IV and tele was removed by primary nurse. This RN administered flu shot and provided flu information sheet. AVS and medications reviewed by RN with patient and . AVS statedcoreg was 3.25mg BID, which pt states no, they must have copied it down wrong. I'm not doing that.We've been through this in [place]. It makes me pass out. RN suggested checking with team, which pt denied and states I wont take it twice a day. 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 Patient has Medicare and [facility]. Pharmacy is [facility] in [facility]. No needs identified at time of discharge. will provide transportation. Beatrice Rodriguez RN Case Manager #[phone] documented in this encounter H&P Notes * [...] around May 2013, when he was in [place], [place]. This triggered major cardiac workup including [...] point, his device was upgraded to a TOP WADDY-D device with biventricular pacing. By the patient's [...] followed in cardiology outreach clinic at [facility] in [place]. Continued high pacing threshold on the epicardial LV lead has caused a very rapid battery depletion. Dr. David Adams in [place] recommended against lead extraction and reimplant as [...] insertion 2002 2013 second pacemaker [facility] Social History Family History Social History Substance Use Topics ??? Smoking status: Former Smoker Years: 35.00 Quit date: 1989 ??? Smokeless tobacco: Not on file ??? Alcohol use 6.6 oz/week 6 Cans of beer, 5 Glasses of wine per week , lives with , retired. Spends leong in [place]. Spends the chery in [place], [place]. Quit smoking in 1990. Has 2 [...] point, his device was upgraded to a TOP WADDY-D device with biventricular pacing with a surgically [...] EST) 03/12/2016 12:4 3 EST Scan 2 Dice Table Operator PROCEDURE/MINOR JUDD GICAL ORDERABLES * ECG REPORT - SCANNED (03/04/2016 14:06 EDT) 03/04/2016 14:0 6 EDT Scan 2 Dice Table Operator PROCEDURE/MINOR JUDD GICAL ORDERABLES * ECG REPORT - SCANNED (03/04/2016 14:06 EDT) 03/04/2016 14:0 6 EDT Scan 2 Dice Table Operator PROCEDURE/MINOR JUDD GICAL ORDERABLES * IMPLANT RECORD - SCANNED (03/04/2016 14:06 EDT) 03/04/2016 14:0 6 EDT Scan 2 Dice Table Operator PROCEDURE/MINOR JUDD GICAL ORDERABLES * ECG REPORT - SCANNED (03/01/2016 8:58 EDT) 03/01/2016 8:58 EDT Scan 2 Dice Table Operator PROCEDURE/MINOR JUDD GICAL ORDERABLES * ECG REPORT - SCANNED (03/01/2016 8:58 EDT) 03/01/2016 8:58 EDT Scan 2 Dice Table Operator PROCEDURE/MINOR JUDD GICAL ORDERABLES * CHEST [...] IMAGING ORDERABLES * HEMAGRAM (02/28/2016 5:44 EDT) [facility] WBC 9.84 4.0 - 10.4 K/cmm 02/28/2016 6:26 EDT [facility] RBC 4.42 4.36 - 5.78 M/cmm 02/28/2016 6:26 T [facility] Hemoglobin 14.2 13.8 - 17.3 gm/dl 02/28/2016 6:26 [facility] HCT 40.9 39.5 - 50.2 % 02/28/2016 6:26 [facility] MCV 93 81 - 95 fl 02/28/2016 6:26 [facility] MCH 32.1 27.6 - 33.0 pg 02/28/2016 6:26 [facility] MCHC 34.7 32.8 - 36.4 gm/dl 02/28/2016 6:26 [facility] RDW-CV 13.1 11.8 - 14.1 % 02/28/2016 6:26 [facility] RDW-SD 44.6 36.5 - 45.9 fl 02/28/2016 6:26 [facility] PLT 151 141 - 377 K/cmm 02/28/2016 6:26 [facility] MPV 11.2 9.5 - 12.7 fl 02/28/2016 6:26 [facility] Blood specimen (specimen) BLOOD SPECIMEN / Unknown 02/28/2016 5:44 EDT 02/28/2016 6:13 EDT Beatrice De La Garza NP HEMATOLOGY & PF4 ORDERABLES [facility] [address] [place] [address] * (ABNORMAL) CREATININE (02/28/2016 5:44 EDT) Creatinine 0.65(L) 0.66 - 1.25 mg/dl 02/28/2016 6:48 EDT [facility] GFR, Calculated 95 >60 ml/min/1.7 3m2 02/28/2016 6:48 EDT [facility] Comment: eGFR calculated using CKD-EPI equation for non Americans. Multiply eGFR by 1.16 for Americans. Blood specimen (specimen) BLOOD SPECIMEN / Unknown 02/28/2016 5:44 EDT 02/28/2016 6:13 EDT Beatrice De La Garza NP CHEMISTRY & B LOOD GAS ORDERABLES Performing Organization Address [facility]/ZIP Co de Phone Number [facility] [address] [place] [address] * BUN (02/28/2016 5:44 EDT) BUN 14 10 - 26 mg/dl 02/28/2016 6:48 EDT [facility] Blood specimen (specimen) BLOOD SPECIMEN / Unknown 02/28/2016 5:44 EDT 02/28/2016 6:13 EDT Beatrice De La Garza PERCUSSION TUNER CHEMISTRY & B LOOD GAS ORDERABLES Performing Organization Address [facility] Co de Phone Number [facility] [address] [place] [address] * ELECTROLYTES (02/28/2016 5:44 EDT) Sodium 138 136 - 145 mEq/L 02/28/2016 6:48 EDT [facility] Potassium 4.7 3.5 - 5.0 mEq/L 02/28/2016 6:48 EDT [facility] Chloride 104 96 - 110 mEq/L 02/28/2016 6:48 EDT [facility] CO2 25 22 - 32 mEq/L 02/28/2016 6:48 EDT [facility] Comment:Note new reference r hong 02/19/16 Blood specimen (specimen) BLOOD SPECIMEN / Unknown 02/28/2016 5:44 EDT 02/28/2016 6:13 EDT Beatrice De La Garza NP CHEMISTRY & B LOOD GAS ORDERABLES [facility] [address] [place] [address] * PORTABLE CHEST 1 VIEW (02/27/2016 12:46 [...] 12:41 EDT) 02/27/2016 12:4 1 EDT Narrative [facility] EKG - 02/28/2016 8:57 EDT ? [facility] ? Test Date: ?2016-02-27 Pat Name: ? NABIL IGLESIAS ? Department: ?? [facility] ? Room: ? MW514 Gender: ? M ?Gas Dispatcher: ?? [id number] : ?1940 ? Requested By: KAIN REED L Order Number: [id number] ? Reading MD: ?? BRAYAN CUENCA MD ? Measurements Intervals ?[place] ? Rate: ? 63 ? P: ?15 [...] Date: 2016-02-27 Pat Name: NABIL IGLESIAS Department: [place] [address] Room: [facility] Gender: M Gas Dispatcher: [id number] : 1940 Requested By: KAIN Gallagher Order Number: [id number] Reading MD: BRAYAN CUENCA MD Measurements Intervals [place] Rate: 63 P: 15 [place]: 159 QRS: 234 QRSD: 156 T: 15 QT: 479 QTc: 493 Interpretive Statements ELECTRONIC VENTRICULAR PACEMAKER Compared to ECG 02/27/2016 08:10:34 No significant changes I reviewed the tracing and have either agreed or edited the findings inthis report. Electronically Signed On 02-28-16 08:57:02 EDT by BRAYAN BEEBE. Gulshan Drummond MD PhD CARDIA C ECG ORDERABLES [facility] EKG * PROTIME (02/27/2016 8:45 EDT) Pro Time 12.3 10.3 - 13.1 secs 02/27/2016 9:10 EDT [facility] Comment: New prothrombin t josue range effective 01/29/16 I.N.R. 1.1 0.9 - 1.1 Ratio 02/27/2016 9:10 EDT [facility] Comment: Moderate Intensity Coumadin INR = 2.0-3.0 Adjustments in anticoagulant therapy dose should be based upon the INR and NOT the Pro Time. Blood specimen (specimen) BLOOD SPECIMEN / Unknown 02/27/2016 8:45 EDT 02/27/2016 8:54 EDT Gulshan Drummond MD PhD HEMATO LOGY & PF4 ORDERABLES [facility] [address] [place] [address] * HEMAGRAM (02/27/2016 8:45 EDT) WBC 6.47 4.0 - 10.4 K/cmm 02/27/2016 8:57 EDT [facility] RBC 4.51 4.36 - 5.78 M/cmm 02/27/2016 8:57 EDT [facility] Hemoglobin 14.7 13.8 - 17.3 gm/dl 02/27/2016 8:57 EDT [facility] HCT 41.7 39.5 - 50.2 % 02/27/2016 8:57 EDT [facility] MCV 93 81 - 95 fl 02/27/2016 8:57 EDT [facility] MCH 32.6 27.6 - 33.0 pg 02/27/2016 8:57 EDT [facility] MCHC 35.3 32.8 - 36.4 gm/dl 02/27/2016 8:57 T [facility] RDW-CV 13.1 11.8 - 14.1 % 02/27/2016 8:57 EDT [facility] RDW-SD 44.0 36.5 - 45.9 fl 02/27/2016 8:57 EDT [facility] PLT 176 141 - 377 K/cmm 02/27/2016 8:57 EDT [facility] MPV 10.7 9.5 - 12.7 fl 02/27/2016 8:57 EDT [facility] Blood specimen (specimen) BLOOD SPECIMEN / Unknown 02/27/2016 8:45 EDT 02/27/2016 8:54 EDT Gulshan Drummond MD PhD HEMATO LOGY & PF4 ORDERABLES [facility] [address] [place] [address] * ELECTROLYTES (02/27/2016 8:45 EDT) Sodium 142 136 - 145 mEq/L 02/27/2016 9:13 EDT [facility] Potassium 4.7 3.5 - 5.0 mEq/L 02/27/2016 9:13 EDT [facility] Chloride 103 96 - 110 mEq/L 02/27/2016 9:13 EDT [facility] CO2 27 22 - 32 mEq/L 02/27/2016 9:13 EDT [facility] Comment:Note new reference r hong 02/19/16 Blood specimen (specimen) BLOOD SPECIMEN / Unknown 02/27/2016 8:45 EDT 02/27/2016 8:54 EDT Gulshan Drummond MD PhD CHEMIS TRY & BLOOD GAS ORDERABLES Performing Organization Address [facility] de Phone Number [facility] [address] [place] [address] * CREATININE (02/27/2016 8:45 EDT) Creatinine 0.69 0.66 - 1.25 mg/dl 02/27/2016 9:13 EDT [facility] GFR, Calculated 93 >60 ml/min/1.7 3m2 02/27/2016 9:13 EDT [facility] Comment: eGFR calculated using CKD-EPI equation for non Americans. Multiply eGFR by 1.16 for Americans. Blood specimen (specimen) BLOOD SPECIMEN / Unknown 02/27/2016 8:45 EDT 02/27/2016 8:54 EDT Gulshan Drummond MD PhD CHEMIS TRY & BLOOD GAS ORDERABLES Performing Organization Address City/[facility] Co de Phone Number [facility] [address] [place] [address] * BUN (02/27/2016 8:45 EDT) BUN 17 10 - 26 mg/dl 02/27/2016 9:13 EDT [facility] Blood specimen (specimen) BLOOD SPECIMEN / Unknown 02/27/2016 8:45 EDT 02/27/2016 8:54 EDT Gulshan Drummond MD PhD CHEMIS TRY & BLOOD GAS ORDERABLES [facility] [address] [place] [address] * EKG 12-LEAD (02/27/2016 8:08 EDT) 02/27/2016 8:08 EDT Narrative [facility] EKG - 02/28/2016 9:01 EDT ? [facility] ? Test Date: ?2016-02-27 Pat Name: ? NABIL IGLESIAS ? Department: ?? [facility] ? Room: ? NH9712 Gender: ? M ?Gas Dispatcher: ?? [id number] : ?1940 ? Requested By: MARCIA Boo Order Number: [id number] ? Julia WRIGHT: ?? BRAYAN CUENCA MD ? Measurements Intervals ?[place] ? Rate: ? 69 ? P: ?147 [...] Date: 2016-02-27 Pat Name: NABIL IGLESIAS Department: [facility] Room: [id number] Gender: M Gas Dispatcher: [id number] : 1940 Requested By: MARCIA Boo Order Number: [id number] Reading MD: BRAYAN CUENCA MD Measurements Intervals [place] Rate: 69 P: 147 [place]: 134 QRS: -67 QRSD: 160 T: -59 QT: 434 QTc: 467 Interpretive Statements ELECTRONIC ATRIAL PACEMAKER ELECTRONIC VENTRICULAR PACEMAKER Compared to ECG 02/27/2016 08:08:46 No significant changes I reviewed the tracing and have either agreed or edited the findings inthis report. Electronically Signed On 02-28-16 09:01:04 EDT by BRAYAN BEEBE. 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
--- OUTSIDE RECORDS SUMMARY | 2024-02-11 09:36 | XMS_ITS | Encounter Summary ---
Author Organization [facility] [place] [address] Care Team Providers Care Automotive Glazier Name Role Phone Marques Martinez MD Primary Care Provider [phone] Reason for Visit * Reason Comments Follow Up Fracture PATELLA FX DOI 03/23 10 Encounter Details Date Type Department Care Team (Late st Contact Info) Description 10/09/2010 12:40 PM EDT Office [place] [address] Jairon Gustafson MD [facility] [address] Jose Francisco Bee PA [facility] [address] Quadriceps tendon rupture (Primary Dx) Discharge Disposition: [...] bipartite patella. I saw this patient with LAGN Liao. Please see his note for details [...] Contact Info) Description 05/02/2024 10:00 AM [facility] Hospital Encounter Non-Invasive [place] [address] Arrived documented as of this encounter Visit Diagnoses Diagnosis Quadriceps tendon rupture- Primary Sprain and strain of other specified sites of knee and leg documented in this encounter Care Teams Automotive Glazier Relationship Specialty Start Date End Date Marques Martinez MD [address] [place] [address] PCP - General 04/01/10 04/08/11 documented as of this encounter
--- OUTSIDE RECORDS SUMMARY | 2024-02-11 09:36 | XMS_ITS | Encounter Summary ---
Author Organization [facility] [place] [address] Care Team Providers Care Cupola Melter Helper Name Role Phone Donny Cooper MD Primary Care Provider [phone] Encounter Details Date Type Department Care Team (Latest Contact Info) Description 12/18/2020 11:57 AM EDT - 12/18/2020 11:59 PM EDT Hospital Encounter Non-Invasive [place] [address] Maged Arguelles MD [facility] [place] [address] Cardiomyopathy, primary Discharge Disposition: Home Social History [...] AM EST Hospital Encounter Non-Invasive [place] [address] Arrived documented as of this encounter Procedures Procedure Name Priority Date/Time Associated Diagnosis Comments ICD INTERROGATION 3 MONTH Routine 12/18/2020 12:00 PM EDT Cardiomyopathy, primary documented in this encounter Results * ICD INTERROGATION 3 MONTH (12/18/2020 12:00 PM EDT) Anatomical Region Laterality Modality Other Narrative 12/23/2020 11:08 PM EDT MDT AIR SAW OPERATOR-D remote reviewed. Normal device function. Inadequate AIR SAW OPERATOR at 80%. Maged Arguelles MD [facility] Cardiac Electrophysiology 12/23/2020 11:06 PM Maged Arguelles MD IMPLANTABLE CARDIAC DEVICE documented in this encounter Visit Diagnoses Diagnosis Cardiomyopathy, primary Other primary cardiomyopathies documented in this encounter Care Teams Cupola Melter Helper Relationship Specialty Start Date End Date Donny Cooper MD [address] [facility] [address] [place] [address] PCP - General Family Medicine 02/25/19 documented as of this encounter
--- OUTSIDE RECORDS SUMMARY | 2024-02-11 09:36 | XMS_ITS | Encounter Summary ---
[place] [address] Care Team Providers Care Cook Italian Style Food Name Role Phone Donny Cooper MD Primary Care Provider [phone] Encounter Details Date Type Department Care Team (Late st Contact Info) Description 01/05/2024 Telephone Cardiology at [address] [address] Kanika Shell Social History Tobacco [...] AM EST Hospital Encounter Non-Invasive [place] [address] Arrived documented as of this encounter Visit Diagnoses Not on filedocumented in this encounter Care Teams Cook Italian Style Food Relationship Specialty Start Date End Date Donny Cooper MD [address] [place] [address] PCP - General Family Medicine 02/25/19 documented as of this encounter
--- OUTSIDE RECORDS SUMMARY | 2024-02-11 09:36 | XMS_ITS | Encounter Summary ---
Author Organization [facility] [place] [address] Care Team Providers Care Commercial Roofing Estimator Name Role Phone Donny Cooper MD Primary Care Provider [phone] Encounter Details Date Type Department Care Team (Latest Contact Info) Description 06/13/2020 12:35 PM EST - 06/13/2020 11:59 PM EST Hospital Encounter [place] [address] Alber Seals MD [facility] [address] Cardiomyopathy, primary Discharge Disposition: Home Social History [...] AM EST Hospital Encounter [place] [address] Arrived documented as of this encounter Procedures Procedure Name Priority Date/Time Associated Diagnosis Comments ICD INTERROGATION 3 MONTH Routine 06/13/2020 12:36 PM EST Cardiomyopathy, primary documented in this encounter Results * ICD INTERROGATION 3 MONTH (06/13/2020 12:36 PM EST) Anatomical Region Laterality Modality Other Narrative 06/14/2020 10:38 AM EST Cardiac Device Remote Monitoring Report Summary Medtronic Cuff-Protect 06/14/20 Device: REAL ESTATE SALES AGENT-D Model: VIVA QUAD Battery: 2.96 v, estimated longevity 3 years, 11 months Pacing percentage: 78% ventricular paced Events: The presenting rhythm is atrial paced with biventricular pacing and frequent ventricular premature contractions No significant arrhythmias Impression Normal device function; suboptimal REAL ESTATE SALES AGENT pacing likely secondary to frequent PVCs. Should consider in clinic follow-up for further evaluation Follow Up As per schedule - in-clinic and remote ALBER SAELS MD Alber Seals MD IMPLANTABLE CARDIAC DEVICE documented in this encounter Visit Diagnoses Diagnosis Cardiomyopathy, primary Other primary cardiomyopathies documented in this encounter Care Teams Commercial Roofing Estimator Relationship Specialty Start Date End Date Donny Cooper MD [address] [place] [address] PCP - General Family Medicine 02/25/19 documented as of this encounter
--- OUTSIDE RECORDS SUMMARY | 2024-02-11 09:36 | XMS_ITS | Encounter Summary ---
Author Organization [facility] Address [address] [place] [address] Care Team Providers Care Traffic Inspector Name Role Phone Unavailable Primary Care Provider Unavailabl e Encounter Details Date Type Department Care Team (Late st Contact Info) Description 12/02/2012 Results Only [facility] Laboratory Services - [facility] ([facility]) [address] [place] [id number] Satinder Edwards MD [address] [place] [address] Social History Tobacco Use Types Packs/Day Years [...] ? NABIL IGLESIAS ? Accession #: ? [id number] ? : ? 1940 (Age: 72) ??M [...] Co de Phone Number [facility] [address] [place] [address] documented in this encounter Visit Diagnoses Not on filedocumented in this encounter
--- OUTSIDE RECORDS SUMMARY | 2024-02-11 09:36 | XMS_ITS | Encounter Summary ---
[place] [address] Care Team Providers Care Regulatory Manager Name Role Phone Marques Martinez MD Primary Care Provider [phone] Encounter Details Date Type Department Care Team (Late st Contact Info) Description 10/03/2010 [place] [address] Marina Orosco, JADON Social History Tobacco Use Types Packs/Day Years Used Date Smoking Tobacco: Never Assessed Sex and Gender Information Value Date Recorded Sex Assigned at Not on file Gender Identity Not on file Sexual Orientation Not on file documented as of this encounter Plan of Treatment Upcoming Encounters Date Type Department Care Team (Late st Contact Info) Description 05/02/2024 10:00 AM [facility] Hospital Encounter Non-[place] [address] Arrived documented as of this encounter Visit Diagnoses Not on filedocumented in this encounter Care Teams Regulatory Manager Relationship Specialty Start Date End Date Marques Martinez MD [address] [place] [address] PCP - General 04/01/10 04/08/11 documented as of this encounter
--- OUTSIDE RECORDS SUMMARY | 2024-02-11 09:36 | XMS_ITS | Encounter Summary ---
Author Organization [facility] Address [address] [place] [address] Care Team Providers Care Chart Computer Name Role Phone Clem Olvera MD Primary Care Provider [phone] Reason for Visit * Reason Onset Date Comments Other 04/04/2019 Transfer request for Pacer Care at [facility] Encounter Details Date Type Department Care Team (Late st Contact Info) Description 04/04/2019 Telephone [facility] Card[facility] Clinic [address] [place] [address] Giselle Hill, AUTO BUMPER MECHANIC Other (Transfer request for Pacer Care at [facility]) Social History Tobacco Use Types Packs/Day Years [...] 04/04/2019 1503 EST I went into the [employer]tronic Website and released pt to [facility] Pacer Clinic as requested. * Telephone Encounter - Suze Reynoso - 04/04/2019 1342 EST PT WILL BE HAVING HIS PACER CARE DONE AT [facility], PLEASE RELEASE HIS REMOTE MONITORING SO THAT THEY CAN PICK IT UP documented in this encounter Plan of Treatment Not on file documented as of this encounter Visit Diagnoses Not on filedocumented in this encounter Care Teams Chart Computer Relationship Specialty Start Date End Date Clem Olvera MD [address] [place] [address] PCP - General 12/18/15 documented as of this encounter
--- OUTSIDE RECORDS SUMMARY | 2024-02-11 09:36 | XMS_ITS | Encounter Summary ---
Author Organization [facility] Address [address] [place] [address] Care Team Providers Care Shape Carver Name Role Phone Unavailable Primary Care Provider Unavailabl e Encounter Details Date Type Department Care Team (Late st Contact Info) Description 05/06/2001 Results Only [facility] [address] [place] [address] Hernandez Partida MD [address] [place] [phone] Social History Tobacco Use Types Packs/Day Years [...] is submitted entirely in cassette (B). ??(Naty Caal)/[facility] End of Report [facility] 05/06/2001 05/07/2001 9:2 5 EST Hernandez Partida MD PATHOLOGY ORDERABLES [facility] [address] [place] [address] documented in this encounter Visit Diagnoses Not on filedocumented in this encounter
--- OUTSIDE RECORDS SUMMARY | 2024-02-11 09:36 | XMS_ITS | Encounter Summary ---
[place] [address] Care Team Providers Care Blueprint Cutter Name Role Phone Donny Cooper MD Primary Care Provider [phone] Encounter Details Date Type Department Care Team (Latest Contact Info) Description 10/05/2022 10:00 AM EDT - 10/05/2022 11:59 PM EDT Hospital Encounter [place] [address] Discharge Disposition: Home Social History Tobacco Use [...] st Contact Info) Description 05/02/2024 10:00 AM [facility] Hospital Encounter [place] [address] Arrived documented as of this [...] on filedocumented in this encounter Care Teams Blueprint Cutter Relationship Specialty Start Date End Date Donny Cooper MD [address] [place] [address] PCP - General Family Medicine 02/25/19 documented as of this encounter
--- OUTSIDE RECORDS SUMMARY | 2024-02-11 09:36 | XMS_ITS | Encounter Summary ---
[place] [address] Care Team Providers Care Open End Spinning Operator Name Role Phone Donny Cooper MD Primary Care Provider [phone] Encounter Details Date Type Department Care Team (Latest Contact Info) Description 07/07/2022 10:00 AM EST - 07/07/2022 11:59 PM EST Hospital Encounter Non-[place] [address] Discharge Disposition: Home Social History Tobacco Use [...] AM EST Hospital Encounter Non-[place] [address] Arrived documented as of this [...] on filedocumented in this encounter Care Teams Open End Spinning Operator Relationship Specialty Start Date End Date Donny Cooper MD [address] [place] [address] PCP - General Family Medicine 02/25/19 documented as of this encounter
--- OUTSIDE RECORDS SUMMARY | 2024-02-11 09:36 | XMS_ITS | Encounter Summary ---
[place] [address] Care Team Providers Care Manufacturing Test Engineer Name Role Phone Marques Martinez MD Primary Care Provider [phone] Encounter Details Date Type Department Care Team (Late st Contact Info) Description 05/01/2010 2:40 PM EST Procedure [place] [address] Social History Tobacco Use Types Packs/Day Years [...] AM EST Hospital Encounter Non-Invasive [place] [address] Arrived documented as of this encounter Visit Diagnoses Not on filedocumented in this encounter Care Teams Manufacturing Test Engineer Relationship Specialty Start Date End Date Marques Martinez MD [address] [place] [address] PCP - General 04/01/10 04/08/11 documented as of this encounter
--- OUTSIDE RECORDS SUMMARY | 2024-02-11 09:36 | XMS_ITS | Encounter Summary ---
[place] [address] Care Team Providers Care Water Resources Program Director Name Role Phone Donny Cooper MD Primary Care Provider [phone] Encounter Details Date Type Department Care Team (Late st Contact Info) Description 12/28/2023 Notes Only Cardiology at [address] [address] Kanika Shell Social History Tobacco Use Types [...] [facility] Hospital Encounter Non[place] [address] Arrived documented as of this encounter Visit Diagnoses Not on filedocumented in this encounter Care Teams Water Resources Program Director Relationship Specialty Start Date End Date Donny Cooper MD [address] [place] [address] PCP - General Family Medicine 02/25/19 documented as of this encounter
--- OUTSIDE RECORDS SUMMARY | 2024-02-11 09:36 | XMS_ITS | Encounter Summary ---
Author Organization [facility] [place] [address] Care Team Providers Care Voice Coach Name Role Phone Donny Cooper MD Primary Care Provider [phone] Encounter Details Date Type Department Care Team (Latest Contact Info) Description 06/25/2021 3:23 PM EST - 06/25/2021 11:59 PM EST Hospital Encounter [place] [address] Alber Seals MD [facility] [place] [address] Cardiomyopathy, primary Discharge Disposition: Home Social History [...] AM EST Hospital Encounter Non-[place] [address] Arrived documented as of this encounter Procedures Procedure Name Priority Date/Time Associated Diagnosis Comments ICD INTERROGATION 3 MONTH Routine 06/25/2021 3:24 PM EST Cardiomyopathy, primary documented in this encounter Results * ICD INTERROGATION 3 MONTH (06/25/2021 3:24 PM EST) Anatomical Region Laterality Modality Other Narrative 06/25/2021 3:42 PM EST Cardiac Device Remote Monitoring Report Summary Medtronic Carelink Device: AMMONIA BOX OPERATOR-D Model: VIVA QUAD Battery: 2.95 v, estimated longevity 2 years 6 months Pacing percentage: 90% AMMONIA BOX OPERATOR paced Events: Presenting rhythm: atrial paced/biventricular paced Frequent PVC's Impression Normal device function Follow Up As per schedule - in-clinic and remote ALBER SELAS MD 06/25/21 Alber Seals MD IMPLANTABLE CARDIAC DEVICE documented in this encounter Visit Diagnoses Diagnosis Cardiomyopathy, primary Other primary cardiomyopathies documented in this encounter Care Teams Voice Coach Relationship Specialty Start Date End Date Donny Cooper MD [address] [place] [address] PCP - General Family Medicine 02/25/19 documented as of this encounter
--- OUTSIDE RECORDS SUMMARY | 2024-02-11 09:36 | XMS_ITS | Encounter Summary ---
[place] [address] Care Team Providers Care Densitometrist Name Role Phone Donny Cooper MD Primary Care Provider [phone] Encounter Details Date Type Department Care Team (Latest Contact Info) Description 04/03/2023 10:00 AM EST - 04/03/2023 11:59 PM [facility] Hospital Encounter [place] [address] Discharge Disposition: Home Social History Tobacco Use [...] st Contact Info) Description 05/02/2024 10:00 AM [facility] Hospital Encounter [place] [address] Arrived documented as of this [...] on filedocumented in this encounter Care Teams Densitometrist Relationship Specialty Start Date End Date Donny Cooper MD [address] [place] [address] PCP - General Family Medicine 02/25/19 documented as of this encounter
--- OUTSIDE RECORDS SUMMARY | 2024-02-11 09:36 | XMS_ITS | Encounter Summary ---
[place] [address] Care Team Providers Care Supervisor Core Shop Name Role Phone Donny Cooper MD Primary Care Provider [phone] Encounter Details Date Type Department Care Team (Latest Contact Info) Description 11/04/2023 10:00 AM EDT - 11/04/2023 11:59 PM EDT Hospital Encounter Non-In[place] [address] Discharge Disposition: Home Social History Tobacco Use [...] [facility] Hospital Encounter Non-In[place] [address] Arrived documented as of this [...] filedocumented in this encounter Care Teams Supervisor Core Shop Relationship Specialty Start Date End Date Donny Cooper MD [address] [place] [address] PCP - General Family Medicine 02/25/19 documented as of this encounter
--- OUTSIDE RECORDS SUMMARY | 2024-02-11 09:36 | XMS_ITS | Encounter Summary ---
Author Organization [facility] [place] [address] Care Team Providers Care Ceramics Test Engineer Name Role Phone Marques Martinez MD Primary Care Provider [phone] Encounter Details Date Type Department Care Team (Late st Contact Info) Description 10/09/2010 11:35 AM EDT - 10/09/2010 11:59 PM EDT Hospital Encounter XRay at [address] [place] [address] Social History Tobacco Use Types [...] Hospital Encounter Non-Invasive Cardiology Lab [facility] [place] [address] Arrived documented as of this encounter Visit Diagnoses Not on filedocumented in this encounter Care Teams Ceramics Test Engineer Relationship Specialty Start Date End Date Marques Martinez MD [address] [place] [address] PCP - General 04/01/10 04/08/11 documented as of this encounter
--- OUTSIDE RECORDS SUMMARY | 2024-02-11 09:36 | XMS_ITS | Encounter Summary ---
[place] [address] Care Team Providers Care Referral Manager Name Role Phone Donny Cooper MD Primary Care Provider [phone] Encounter Details Date Type Department Care Team (Latest Contact Info) Description 07/02/2023 10:00 AM EST - 07/02/2023 11:59 PM [facility] Hospital Encounter [place] [address] Discharge Disposition: Home Social History Tobacco Use [...] [facility] Hospital Encounter Non[place] [address] Arrived documented as of this encounter Visit Diagnoses Not on filedocumented in this encounter Care Teams Referral Manager Relationship Specialty Start Date End Date Donny Cooper MD [address] [place] [address] PCP - General Family Medicine 02/25/19 documented as of this encounter
--- OUTSIDE RECORDS SUMMARY | 2024-02-11 09:36 | XMS_ITS | Encounter Summary ---
[place] [address] Care Team Providers Care Ticket Printer Name Role Phone Donny Cooper MD Primary Care Provider [phone] Encounter Details Date Type Department Care Team (Latest Contact Info) Description 02/02/2024 10:00 AM EDT - 02/02/2024 11:59 PM EDT Hospital Encounter Non-[place] [address] Discharge Disposition: Home Social History Tobacco Use [...] st Contact Info) Description 05/02/2024 10:00 AM [facility] Hospital Encounter Non-[place] [address] Arrived documented as of this encounter Visit Diagnoses Not on filedocumented in this encounter Care Teams Ticket Printer Relationship Specialty Start Date End Date Donny Cooper MD [address] [place] [address] PCP - General Family Medicine 02/25/19 documented as of this encounter
--- OUTSIDE RECORDS SUMMARY | 2024-02-11 09:36 | XMS_ITS | Encounter Summary ---
Author Organization [facility] Address [address] [place] [address] Care Team Providers Care Net Software Developer Name Role Phone Clem Olvera MD Primary Care Provider [phone] Reason for Visit * Reason Onset Date Comments Appointment Related 10/23/2016 Check for fo llow up of pacer Encounter Details Date Type Department Care Team ([facility] Contact Info) Description 10/23/2016 Telephone [facility] Cardiology - [address] [place] [address] Pacemaker, Pace Appointment Related (Check [...] that Nabil had his pacemaker checked in [place] where they are for the winter. They have some back and are being followed by Dr. Hurd at [facility]. documented in this encounter Plan of Treatment Not on file documented as of this encounter Visit Diagnoses Not on filedocumented in this encounter Care Teams Net Software Developer Relationship Specialty Start Date End Date Clem Olvera MD [address] [place] [address] PCP - General 12/18/15 documented as of this encounter
--- OUTSIDE RECORDS SUMMARY | 2024-02-11 09:37 | XMS_ITS | Encounter Summary ---
Author Organization [facility]ly [facility] [place] [address] Care Team Providers Care Coining Press Operator Name Role Phone Marques Martinez MD Primary Care Provider [phone] Encounter Details Date Type Department Care Team (Late st Contact Info) Description 03/30/2010 [place] [address] Javier Barajas MD [facility] [place] [address] Social History Tobacco Use Types Packs/Day Years [...] AM EST Hospital Encounter [place] [address] Arrived documented as of this encounter Procedures [...] AM EST Jairon Fenton MD [facility] * (ABNORMAL) CREATININE, SERUM (04/01/2010 6:09 [...] CHEMISTRY ORDERABLES Performing Organization Address [facility] de Phone Number [facility]ERNER [facility] * BUN (04/01/2010 6:09 AM EST) Blood Urea Nitrogen 12 10 - 20 mg/dL [facility] Blood specimen (specimen) 04/01/2010 6:09 AM EST 04/01/2010 6:09 AM EST Jairon Fenton MD CHEMISTRY ORDERABLES Performing Organization Address [facility] de Phone Number CERNER [facility] [...] ORDERABLE S Performing Organization Address [facility] de Phone Number CERIVIS MILLENNIUM [...] CHEMISTRY ORDERABLES Performing Organization Address [facility] Phone Number CERIVIS MILLENNIUM [...] CHEMISTRY ORDERABLES Performing Organization Address [facility] Co de Phone Number CERIVIS MILLENNIUM * CREATININE, SERUM (03/30/2010 6:05 PM EST) Creatinine 0.87 0.80 - 1.50 mg/dL [facility] Est Glomerular Filtration Rate >60 >=60 [facility] Comment: The National Kidney Disease [...] Urea Nitrogen 18 10 - 20 mg/dL [facility] Blood specimen (specimen) 03/30/2010 6:05 PM EST 03/30/2010 6:13 PM EST Jairon Fenton MD CHEMISTRY ORDERABLES Performing Organization Address [facility] de Phone Number DEJA [facility] * APTT (03/30/2010 6:05 PM EST) Partial Thromboplastin Time 26 25 - 37 sec [facility] Comment: Recommended therapeutic PTT range for full dose unfractionated heparin is 80-114 seconds. Blood specimen (specimen) 03/30/2010 6:05 PM EST 03/30/2010 6:14 PM EST Jairon Fenton MD HEMATOLOGY ORDERABLE S Performing Organization Address [facility] Phone Number DEJA SEGOVIA * PROTIME-INR (03/30/2010 6:05 PM EST) Prothrombin Time 14.2 12.3 - 14.7 sec [facility] Comment: [facility] Transfusion Committee Guidelines: INR less than 2.0, PTT less than OR equal to 43.5 seconds, or Fibrinogen greater than or equal to 100 mg/dl indicate adequate procoagulant activity for hemostasis in patients without underlying bleeding disorders. International Normalization Ratio 1.1 0.9 - 1.1 [facility] Blood specimen (specimen) 03/30/2010 6:05 PM EST 03/30/2010 6:14 PM EST Jairon Fenton MD HEMATOLOGY ORDERABLE S Performing Organization Address [facility] de Phone Number DEJA SEGOVIA [...] Standard Deviation 44.2 35.0 - 46.0 fL [facility] RDW coefficient of variation 13.1 10.9 - 14.4 % [facility] Mean Platelet Volume 10.6 9.0 - 12.0 fL [facility] Blood specimen (specimen) 03/30/2010 6:05 PM EST 03/30/2010 6:13 PM EST Jairon Fenton MD HEMATOLOGY ORDERABLE S Performing Organization Address City/[facility] Co de Phone Number [facility] * REFLEX LAB-ANTIBODY SCREEN (03/30/2010 3:17 PM EST) [facility] Ab Screen Interp Negative [facility] Expires at [id number] on: [id number] [facility] Blood specimen (specimen) 03/30/2010 3:17 PM EST 03/30/2010 3:17 PM EST Javier Barajas MD BLOOD BANK LAB ORDER PRECIOUS Performing Organization Address [facility] Co de Phone Number [facility] * REFLEX LAB-ABO/RH (03/30/2010 3:17 PM EST) [facility] ABORH Type A Pos [facility] Blood specimen (specimen) 03/30/2010 3:17 PM EST 03/30/2010 3:17 PM EST Javier Barajas MD BLOOD BANK LAB ORDER PRECIOUS Performing Organization Address [facility] Co de Phone Number [facility] * ELECTROLYTE PANEL (03/30/2010 2:50 PM EST) [facility] Sodium 135 135 - 145 mmol/L [facility] Potassium 4.3 3.5 - 5.0 mmol/L [facility] Comment: Please note: ??Patients with WBC [...] PM EST Javier Barajas MD CHEMISTRY ORDERABLES [facility] * CREATININE, SERUM (03/30/2010 2:50 [...] CHEMISTRY ORDERABLES Performing Organization Address [facility] Phone Number [facility] * BUN (03/30/2010 2:50 PM EST) Blood Urea Nitrogen 18 10 - 20 mg/dL [facility] Blood specimen (specimen) 03/30/2010 2:50 PM EST 03/30/2010 3:05 PM EST Javier Barajas MD CHEMISTRY ORDERABLES Performing Organization Address [facility] Phone Number [facility] * GLUCOSE, RANDOM (03/30/2010 2:50 PM EST) Glucose 95 <=199 mg/dL [facility] Comment:Diabetes: >=200 mg/d L plus symptoms Blood specimen (specimen) 03/30/2010 2:50 PM EST 03/30/2010 3:05 PM EST Javier Barajas MD CHEMISTRY ORDERABLES Performing Organization Address [facility] Phone Number [facility] * APTT (03/30/2010 2:50 PM EST) Partial Thromboplastin Time 25 25 - 37 sec [facility] Comment: Recommended therapeutic PTT range for full dose unfractionated heparin is 80-114 seconds. Blood specimen (specimen) 03/30/2010 2:50 PM EST 03/30/2010 3:06 PM EST Javier Barajas MD HEMATOLOGY ORDERABLE S Performing Organization Address [facility] Phone Number [facility] * PROTIME-INR (03/30/2010 2:50 PM EST) Prothrombin Time 14.1 12.3 - 14.7 sec [facility] Comment: [facility] Transfusion Committee Guidelines: INR less than [...] on filedocumented in this encounter Care Teams Coining Press Operator Relationship Specialty Start Date End Date Marques Martinez MD [address] [place] [address] PCP - General 04/01/10 04/08/11 documented as of this encounter
--- OUTSIDE RECORDS SUMMARY | 2024-02-16 08:07 | XMS_ITS | Encounter Summary ---
[place] [address] Care Team Providers Care Revenue Stamper Name Role Phone Donny Cooper MD Primary Care Provider [phone] Encounter Details Date Type Department Care Team (Latest Contact Info) Description 07/02/2023 10:00 AM EST - 07/02/2023 11:59 PM EST Hospital Encounter [place] [address] Discharge Disposition: Home Social History Tobacco Use [...] Contact Info) Description 05/02/2024 10:00 AM [facility] Hospital Encounter [place] [address] Arrived documented as of this encounter Visit Diagnoses Not on filedocumented in this encounter Care Teams Revenue Stamper Relationship Specialty Start Date End Date Donny Cooper MD [address] [place] [address] PCP - General Family Medicine 02/25/19 documented as of this encounter
--- OUTSIDE RECORDS SUMMARY | 2024-02-16 08:07 | XMS_ITS | Encounter Summary ---
[place] [address] Care Team Providers Care Nutrient Management Specialist Name Role Phone Donny Cooper MD Primary Care Provider [phone] Encounter Details Date Type Department Care Team (Latest Contact Info) Description 02/02/2024 10:00 AM EDT - 02/02/2024 11:59 PM EDT Hospital Encounter Non[place] [address] Discharge Disposition: Home Social History Tobacco Use [...] st Contact Info) Description 05/02/2024 10:00 AM [facility] Hospital Encounter Non-[place] [address] Arrived documented as of this encounter Visit Diagnoses Not on filedocumented in this encounter Care Teams Nutrient Management Specialist Relationship Specialty Start Date End Date Donny Cooper MD [address] [place] [address] PCP - General Family Medicine 02/25/19 documented as of this encounter
--- OUTSIDE RECORDS SUMMARY | 2024-02-16 08:07 | XMS_ITS | Clinical Summary ---
Author Organization [facility] [place] [address] Care Team Providers Care Lime Trimmer Name Role Phone Donny Cooper MD Primary Care Provider [phone] Allergies No known active allergies Medications Medication [...] PM EDT Hospital Encounter Non[place] [address] Discharge Disposition: Home 01/05/2024 Telephone Cardiology at [address] [address] Kanika Shell 12/28/2023 Notes Only Cardiology at [address] [address] Kanika Shell from Last 3 Months Immunizations [...] AM EST Hospital Encounter [place] [phone] Arrived Health Maintenance Due Date Last Done Comments Tetanus/Diphtheria/Pertussis Vaccines (1 - Tdap) 08/19/1959 Zoster vaccine (1 of 2) 1990 Advance Directive 08/19/1995 Pneumoccocal Vaccine: 65+ (2 of 2 - PCV) 05/04/2009 05/04/2008 Covid-19 Vaccine (1 - 2022- season) 2024 Influenza (Flu) vaccine (1 o f 1 - Influenza standard series) 01/03/2024 02/01/2010, 03/06/2006, 02/24/2005 Medical Devices Implanted Type Area Inside Technical Sales Representative Device Identifier Shelf Expiration Date Model / Serial / Lot Mdt : [id number] : [id number] Implanted: (Quantity not on file) Cardiac Resynchronization Therapy - Defibrillator Chest [employer] - [id number] / [id number] / Care Teams Lime Trimmer Relationship Specialty Start Date End Date Donny Cooper MD [address] [place] [address] PCP - General Family Medicine 02/25/19
--- OUTSIDE RECORDS SUMMARY | 2024-02-16 08:07 | XMS_ITS | Encounter Summary ---
Author Organization [facility] Address [address] [place] [address] Care Team Providers Care Metalworking Specialist Name Role Phone Unavailable Primary Care Provider Unavailabl e Encounter Details Date Type Department Care Team (Late st Contact Info) Description 05/06/2001 Results Only [facility] [address] [place] [address] Hernandez Partida MD [address] [place] [phone] Social History Tobacco Use Types Packs/Day Years [...] is submitted entirely in cassette (B). ??(Naty Caal)/[facility] End of Report [facility] 05/06/2001 05/07/2001 9:2 5 EST Hernandez Partida MD PATHOLOGY ORDERABLES [facility] [address] [place] [address] documented in this encounter Visit Diagnoses Not on filedocumented in this encounter
--- OUTSIDE RECORDS SUMMARY | 2024-02-16 08:07 | XMS_ITS | Clinical Summary ---
Author Organization [facility] Address [address] [place] [address] Care Team Providers Care Vegetable Cook Name Role Phone Clem Olvera MD Primary Care Provider [phone] Allergies No known active allergies Medications Medication [...] PACEMAKER INSERTION 05/04/2002 - 05/03/20032013 second pacemaker [facility] Medical History Medical History Date [...] Advance Directives For more information, please contact: [phone] * Full Code (Latest Code Status on File) Date Activated Date Inactivated Comments 02/27/2016 8:49 02/28/2016 15:40 Question Answer Comments Reason for decision includes: Full code consistent with overall plan of care Who participated in the discussion? Not Discusse d Care Teams Vegetable Cook Relationship Specialty Start Date End Date Clem Olvera MD [address] [place] [address] PCP - General 12/18/15
--- OUTSIDE RECORDS SUMMARY | 2024-02-16 08:07 | XMS_ITS | Encounter Summary ---
[place] [address] Care Team Providers Care Cement Car Dumper Name Role Phone Donny Cooper MD Primary Care Provider [phone] Encounter Details Date Type Department Care Team (Late st Contact Info) Description 01/05/2024 Telephone Cardiology at [address] [address] Kanika Shell Social History Tobacco [...] AM EST Hospital Encounter Non-[place] [address] Arrived documented as of this encounter Visit Diagnoses Not on filedocumented in this encounter Care Teams Cement Car Dumper Relationship Specialty Start Date End Date Donny Cooper MD [address] [place] [address] PCP - General Family Medicine 02/25/19 documented as of this encounter
--- OUTSIDE RECORDS SUMMARY | 2024-02-16 08:07 | XMS_ITS | Encounter Summary ---
Author Organization [facility] Address [address] [place] [address] Care Team Providers Care Vendor Analyst Name Role Phone Clem Olvera MD Primary Care Provider [phone] Encounter Details Date Type Department Care Team (Latest Contact Info) Description 12/20/2015 10:52 EDT - 12/20/2015 23:52 EDT Hospital Encounter [facility] [address] [place] [address] Navdeep Hurd MD [address] [place] [address] [address] Discharge Disposition: Home or Self [...] no need to beNPO or have a limb driver. However, his will be accompanying him. They are driving someone to the airport [place] 1000 and then will come here and check-in around 1145. He agrees to have a shower. documented in this encounter Procedure Notes * Fantasma Dhillon MD - 12/20/2015 1356 EDT IR Brief Procedure Note Attending: Leo Case Maker: Alejo Pre-op Dx: Arrhythmia, need for [...] 12/19 documented in this encounter Care Teams Vendor Analyst Relationship Specialty Start Date End Date Clem Olvera MD [address] [place] [address] PCP - General 12/18/15 documented as of this encounter
--- OUTSIDE RECORDS SUMMARY | 2024-02-16 08:07 | XMS_ITS | Encounter Summary ---
Author Organization [facility] Address [address] [place] [address] Care Team Providers Care Lens Grinding Machine Operator Name Role Phone Clem Olvera MD Primary Care Provider [phone] Encounter Details Date Type Department Care Team (Late st Contact Info) Description 03/16/2019 Abstract [facility] Cardiology Clinic [address] [place] [address] Ronal Avelar, JADON AV block, 2nd degree [...] Laterality Modality Device Narrative 03/24/2019 10:30 EST [facility] Cardiology Device Visit Pre Fabricator: [employer] Device Type: FLIGHT COMMUNICATIONS OPERATOR-D Service: Remote ? 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
--- OUTSIDE RECORDS SUMMARY | 2024-02-16 08:07 | XMS_ITS | Encounter Summary ---
Author Organization [facility] Address [address] [place] [address] Care Team Providers Care Anchor Tack Puller Name Role Phone Clem Olvera MD Primary Care Provider [phone] Reason for Visit * Reason Onset Date Comments Other 04/04/2019 Transfer request for Pacer Care at [facility] Encounter Details Date Type Department Care Team (Late st Contact Info) Description 04/04/[address] [facility] [address] [place] [address] Giselle Hill, EMBROIDERY FINISHER Other (Transfer request for Pacer Care at [facility]) Social History Tobacco Use Types Packs/Day Years [...] 04/04/2019 1503 EST I went into the [employer] Website and released pt to [facility] Pacer Clinic as requested. * Telephone Encounter - Suze Reynoso - 04/04/2019 1342 EST PT WILL BE HAVING HIS PACER CARE DONE AT [facility], PLEASE RELEASE HIS REMOTE MONITORING SO THAT THEY CAN PICK IT UP documented in this encounter Plan of Treatment Not on file documented as of this encounter Visit Diagnoses Not on filedocumented in this encounter Care Teams Anchor Tack Puller Relationship Specialty Start Date End Date Clem Olvera MD [address] [place] [address] PCP - General 12/18/15 documented as of this encounter
--- OUTSIDE RECORDS SUMMARY | 2024-02-16 08:07 | XMS_ITS | Encounter Summary ---
Author Organization [facility] Address [address] [place] [address] Care Team Providers Care Mold Mechanic Name Role Phone Clem Olvera MD Primary Care Provider [phone] Reason for Referral * (Routine) - Closed Specialty Diagnoses / Procedures Referred By Pedro madera Referred To Contact Beatrice De La Garza NP [address] [place] [phone] Referral ID Status Reason Start Date Expiration Date V isits Requested Visits Authorized [id number] Closed Specialty Services Required 02/27/2016 1 1 Comments You must contact us if we have not contacted you or you have missed your scheduled appointment. If you have any nursing questions, please don't hesitate to call the Cardiac Arrhythmia Service at [facility] at [phone] or , extension [phone]. For any scheduling of appointments, please call [phone] or , extension [phone]. . * (Routine) - Closed Specialty Diagnoses / Procedures Referred By Pedro madera Referred To Contact Beatrice De La Garza NP [address] [phone] Referral ID Status Reason Start Date Expiration Date V isits Requested Visits Authorized [id number] Closed Specialty Services Required 02/27/2016 1 1 Comments You have a pre existing appointment with Dr. Olvera on March 05 at 2:00, please have Dr. Olvera check your incision at that visit. * (Routine) - Closed Specialty Diagnoses / Procedures Referred By Contbecca t Referred To Contact Beatrice De La Garza NP [address] [phone] Referral ID Status Reason Start Date Expiration Date V isits Requested Visits Authorized [id number] Closed Specialty Services Required 02/27/2016 1 1 [...] [facility] Cardiology is located at [address] [facility] in [place] -Clinics are also held in [facility], and [place], [place] and [facility]. If you live in those areas, we will make arrangements for follow-up appointments in one of those clinics.. Encounter Details Date Type Department Care Team (Late st Contact Info) Description 02/27/2016 6:30 EDT - 02/28/2016 13:39 EDT Hospital Encounter [facility] Cardiac[facility]Telemetry Unit [address] [place] [address] Gulshan Drummond MD PhD [address] [address] Gulshan Montoya Sa, MD [address] [facility] [address] [place] [phone] AICD lead malfunction, subsequent encounter; ICD [...] EF of 20-25% status post silent inferior NV in the early . 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 He had heart failure symptoms that started around May 2013, when he was in [place], [place]. This triggered major cardiac workup including [...] then underwent a device upgrade to a CONSTRUCTION SKILLS TEACHER-D device with biventricular pacing for his EF [...] been followed in cardiology outreach clinic at [facility] in [place]. Continued high pacing threshold on the epicardial [...] and plans to follow up with his Uniformer in [place] in 6-8 weeks for which he will arrange once he has arrived in [place]. He has been provided with the implant [...] HGBA1C Discharge Follow Up Appointments Scheduled with [facility] Appointments Outside of [facility] We Will Schedule Studies We Will Schedule Appointments We Recommend but have not been Scheduled Beatrice De La Garza NP 02/27/2016 10:59 Associated attestation - Gulshan Montoya Sa, MD - 02/28/2016 1519 EDT Attending Attestation: I saw and evaluated the patient. I discussed the case with the resident/WORK ORDER CLERK/fellow and agree with the findings and plan as documented above. Gulshan bullock Sa, MD Cardiac Electrophysiology documented in this encounter Discharge Instructions * Appointments* Beatrice De La Garza NP - 02/27/2016 11:[address] Olvera on 03/05/16 at 2:00 as previously scheduled for a routine visit and for a check of your incision. Follow up with Giselle Hill NP at the [facility] in May, you will be [...] Notes * Lou Alfonso RN - 02/28/2016 9381 EDT Pt awaiting discharge. IV and tele was removed by primary nurse. This RN administered flu shot and provided flu information sheet. AVS and medications reviewed by RN with patient and . AVS statedcoreg was 3.25mg BID, which pt states no, they must have copied it down wrong. I'm not doing that.We've been through this in [place]. It makes me pass out. RN suggested checking with team, which pt denied and states I wont take it twice a day. He did agree to review this medication with his bowling pin setters installer and plans to remain on his home dosing, which was in the morning. He received dose this am. Ptleft via wheelchair with . * Beatrice Rodriguez - 02/28/2016 1329 EDT Brief visit with patient and as they were being discharged. Patient states he is independent in self care and home management. He feels well supported by friends and neighbors. Patient has Medicare and [facility]. [facility]. No needs identified at time of discharge. will provide transportation. Beatrice Rodriguez RN Case Manager #[id number] documented in this encounter H&P Notes * Navdeep Hurd MD - 02/27/2016 0830 EDT Cardiology Admitting H&P Admit Date: 02/27/2016 Date of Service: 02/27/2016 PCP: Clem Olvera Code Status: Full Code Chief Complaint: FINN, device battery depletion, high pacing threshold on epicardial lead HPI: 74-year-old man with coronary artery disease and ischemic cardiomyopathy status post silent inferior NV in the early . 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 He had heart failure symptoms that started around May 2013, when he was in [place], [place]. This triggered major cardiac workup including [...] point, his device was upgraded to a CONSTRUCTION SKILLS TEACHER-D device with biventricular pacing. By the patient's [...] been followed in cardiology outreach clinic at [facility] in [place]. Continued high pacing threshold on the epicardial LV lead has caused a very rapid battery depletion. Dr. David Adams in [place] recommended against lead extraction and reimplant as [...] ??? Pacemaker insertion 2002 2013 second pacemaker [facility] Social History Family History Social History Substance Use Topics ??? Smoking status: Former Smoker Years: 35.00 Quit date: 1989 ??? Smokeless tobacco: Not on file ??? Alcohol use 6.6 oz/week 6 Cans of beer, 5 Glasses of wine per week , lives with , retired. Spends leong in [place]. Spends the chery in [place], [place]. Quit smoking in 1990. Has 2 [...] and ischemic cardiomyopathy status post silent inferior NV in the early . Also diagnosed with [...] point, his device was upgraded to a CONSTRUCTION SKILLS TEACHER-D device with biventricular pacing with a surgically [...] EST) 03/12/2016 12:4 3 EST Scan 2 Examination Supervisor PROCEDURE/MINOR JUDD GICAL ORDERABLES * ECG REPORT - SCANNED (03/04/2016 14:06 EDT) 03/04/2016 14:0 6 EDT Scan 2 Examination Supervisor PROCEDURE/MINOR JUDD GICAL ORDERABLES * ECG REPORT - SCANNED (03/04/2016 14:06 EDT) 03/04/2016 14:0 6 EDT Scan 2 Examination Supervisor PROCEDURE/MINOR JUDD GICAL ORDERABLES * IMPLANT RECORD - SCANNED (03/04/2016 14:06 EDT) 03/04/2016 14:0 6 EDT Scan 2 Examination Supervisor PROCEDURE/MINOR JUDD GICAL ORDERABLES * ECG REPORT - SCANNED (03/01/2016 8:58 EDT) 03/01/2016 8:58 EDT Scan 2 Examination Supervisor PROCEDURE/MINOR JUDD GICAL ORDERABLES * ECG REPORT - SCANNED (03/01/2016 8:58 EDT) 03/01/2016 8:58 EDT Scan 2 Examination Supervisor PROCEDURE/MINOR JUDD GICAL ORDERABLES * CHEST [...] IMAGING ORDERABLES * HEMAGRAM (02/28/2016 5:44 EDT) [facility] WBC 9.84 4.0 - 10.4 K/cmm 02/28/2016 6:26 EDT [facility] RBC 4.42 4.36 - 5.78 M/cmm 02/28/2016 6:26 T [facility] Hemoglobin 14.2 13.8 - 17.3 gm/dl 02/28/2016 6:26 [facility] HCT 40.9 39.5 - 50.2 % 02/28/2016 6:26 [facility] MCV 93 81 - 95 fl 02/28/2016 6:26 [facility] MCH 32.1 27.6 - 33.0 pg 02/28/2016 6:26 [facility] MCHC 34.7 32.8 - 36.4 gm/dl 02/28/2016 6:26 [facility] RDW-CV 13.1 11.8 - 14.1 % 02/28/2016 6:26 [facility] RDW-SD 44.6 36.5 - 45.9 fl 02/28/2016 6:26 [facility] PLT 151 141 - 377 K/cmm 02/28/2016 6:26 [facility] MPV 11.2 9.5 - 12.7 fl 02/28/2016 6:26 [facility] Blood specimen (specimen) BLOOD SPECIMEN / Unknown 02/28/2016 5:44 EDT 02/28/2016 6:13 EDT Beatrice De La Garza NP HEMATOLOGY & PF4 ORDERABLES [facility] [address] [place] [address] * (ABNORMAL) CREATININE (02/28/2016 5:44 EDT) Creatinine 0.65(L) 0.66 - 1.25 mg/dl 02/28/2016 6:48 EDT [facility] GFR, Calculated 95 >60 ml/min/1.7 3m2 02/28/2016 6:48 EDT [facility] Comment: eGFR calculated using CKD-EPI equation for non Americans. Multiply eGFR by 1.16 for Americans. Blood specimen (specimen) BLOOD SPECIMEN / Unknown 02/28/2016 5:44 EDT 02/28/2016 6:13 EDT Beatrice De La Garza NP CHEMISTRY & B LOOD GAS ORDERABLES Performing Organization Address [facility]/ZIP Co de Phone Number [facility] [address] [place] [address] * BUN (02/28/2016 5:44 EDT) BUN 14 10 - 26 mg/dl 02/28/2016 6:48 EDT [facility] Blood specimen (specimen) BLOOD SPECIMEN / Unknown 02/28/2016 5:44 EDT 02/28/2016 6:13 EDT Beatrice De La Garza WORK ORDER CLERK CHEMISTRY & B LOOD GAS ORDERABLES Performing Organization Address [facility] Co de Phone Number [facility] [address] [place] [address] * ELECTROLYTES (02/28/2016 5:44 EDT) Sodium 138 136 - 145 mEq/L 02/28/2016 6:48 EDT [facility] Potassium 4.7 3.5 - 5.0 mEq/L 02/28/2016 6:48 EDT [facility] Chloride 104 96 - 110 mEq/L 02/28/2016 6:48 EDT [facility] CO2 25 22 - 32 mEq/L 02/28/2016 6:48 EDT [facility] Comment:Note new reference r hong 02/19/16 Blood specimen (specimen) BLOOD SPECIMEN / Unknown 02/28/2016 5:44 EDT 02/28/2016 6:13 EDT Beatrice De La Garza NP CHEMISTRY & B LOOD GAS ORDERABLES [facility] [address] [place] [address] * PORTABLE CHEST 1 VIEW (02/27/2016 12:46 [...] 12:41 EDT) 02/27/2016 12:4 1 EDT Narrative [facility] E[facility] - 02/28/2016 8:57 EDT ? [facility] ? Test Date: ?2016-02-27 Pat Name: ? NABIL IGLESIAS ? Department: ?? [facility] ? Room: ? MW514 Gender: ? M ?Casualty Underwriter: ?? [id number] : ?1940 ? Requested By: KAIN REED L Order Number: [id number] ? Reading MD: ?? BRAYAN CUENCA MD ? Measurements Intervals ?[place] ? Rate: ? 63 ? P: ?15 TN: ? 159 ?QRS: ?234 QRSD: ? 156 ?T: ?15 QT: ? 479 ? QTc: ?493 ? Interpretive Statements ELECTRONIC VENTRICULAR PACEMAKER Compared to ECG 02/27/2016 08:10:34 No significant changes I reviewed the tracing and have either agreed or edited the findings in this report. Electronically Signed On 02-28-16 08:57:02 EDT by BRAYAN CUENCA MD. Procedure Note Braayn Cuenca MD - 02/28/2016 [facility] Test Date: 2016-02-27 Pat Name: NABIL IGLESIAS Department: [place] [address] Room: [facility] Gender: M Casualty Underwriter: [id number] : 1940 Requested By: KAIN Gallagher Order Number: [id number] Reading MD: BRAYAN CUENCA MD Measurements Intervals [place] Rate: 63 P: 15 TN: 159 QRS: 234 QRSD: 156 T: 15 QT: 479 QTc: 493 Interpretive Statements ELECTRONIC VENTRICULAR PACEMAKER Compared to ECG 02/27/2016 08:10:34 No significant changes I reviewed the tracing and have either agreed or edited the findings inthis report. Electronically Signed On 02-28-16 08:57:02 EDT by BRAYAN BEEBE. Gulshan Drummond MD PhD CARDIA C ECG ORDERABLES [facility] EKG * PROTIME (02/27/2016 8:45 EDT) Pro Time 12.3 10.3 - 13.1 secs 02/27/2016 9:10 EDT [facility] Comment: New prothrombin t josue range effective 01/29/16 I.N.R. 1.1 0.9 - 1.1 Ratio 02/27/2016 9:10 EDT [facility] Comment: Moderate Intensity Coumadin INR = 2.0-3.0 Adjustments in anticoagulant therapy dose should be based upon the INR and NOT the Pro Time. Blood specimen (specimen) BLOOD SPECIMEN / Unknown 02/27/2016 8:45 EDT 02/27/2016 8:54 EDT Gulshan Drummond MD PhD HEMATO LOGY & PF4 ORDERABLES [facility] [address] [place] [address] * HEMAGRAM (02/27/2016 8:45 EDT) WBC 6.47 4.0 - 10.4 K/cmm 02/27/2016 8:57 EDT [facility] RBC 4.51 4.36 - 5.78 M/cmm 02/27/2016 8:57 EDT [facility] Hemoglobin 14.7 13.8 - 17.3 gm/dl 02/27/2016 8:57 EDT [facility] HCT 41.7 39.5 - 50.2 % 02/27/2016 8:57 EDT [facility] MCV 93 81 - 95 fl 02/27/2016 8:57 EDT [facility] MCH 32.6 27.6 - 33.0 pg 02/27/2016 8:57 EDT [facility] MCHC 35.3 32.8 - 36.4 gm/dl 02/27/2016 8:57 T [facility] RDW-CV 13.1 11.8 - 14.1 % 02/27/2016 8:57 EDT [facility] RDW-SD 44.0 36.5 - 45.9 fl 02/27/2016 8:57 EDT [facility] PLT 176 141 - 377 K/cmm 02/27/2016 8:57 EDT [facility] MPV 10.7 9.5 - 12.7 fl 02/27/2016 8:57 EDT [facility] Blood specimen (specimen) BLOOD SPECIMEN / Unknown 02/27/2016 8:45 EDT 02/27/2016 8:54 EDT Gulshan Drummond MD PhD HEMATO LOGY & PF4 ORDERABLES [facility] [address] [place] [address] * ELECTROLYTES (02/27/2016 8:45 EDT) Sodium 142 136 - 145 mEq/L 02/27/2016 9:13 EDT [facility] Potassium 4.7 3.5 - 5.0 mEq/L 02/27/2016 9:13 EDT [facility] Chloride 103 96 - 110 mEq/L 02/27/2016 9:13 EDT [facility] CO2 27 22 - 32 mEq/L 02/27/2016 9:13 EDT [facility] Comment:Note new reference r hong 02/19/16 Blood specimen (specimen) BLOOD SPECIMEN / Unknown 02/27/2016 8:45 EDT 02/27/2016 8:54 EDT Gulshan Drummond MD PhD CHEMIS TRY & BLOOD GAS ORDERABLES Performing Organization Address [facility] de Phone Number [facility] [address] [place] [address] * CREATININE (02/27/2016 8:45 EDT) Creatinine 0.69 0.66 - 1.25 mg/dl 02/27/2016 9:13 EDT [facility] GFR, Calculated 93 >60 ml/min/1.7 3m2 02/27/2016 9:13 EDT [facility] Comment: eGFR calculated using CKD-EPI equation for non Americans. Multiply eGFR by 1.16 for Americans. Blood specimen (specimen) BLOOD SPECIMEN / Unknown 02/27/2016 8:45 EDT 02/27/2016 8:54 EDT Gulshan Drummond MD PhD CHEMIS TRY & BLOOD GAS ORDERABLES Performing Organization Address City/[facility] Co de Phone Number [facility] [address] [place] [address] * BUN (02/27/2016 8:45 EDT) BUN 17 10 - 26 mg/dl 02/27/2016 9:13 EDT [facility] Blood specimen (specimen) BLOOD SPECIMEN / Unknown 02/27/2016 8:45 EDT 02/27/2016 8:54 EDT Gulshan Drummond MD PhD CHEMIS TRY & BLOOD GAS ORDERABLES [facility] [address] [place] [address] * EKG 12-LEAD (02/27/2016 8:08 EDT) 02/27/2016 8:08 EDT Narrative [facility] EKG - 02/28/2016 9:01 EDT ? [facility] ? Test Date: ?2016-02-27 Pat Name: ? NABIL IGLESIAS ? Department: ?? [facility] ? Room: ? HR3870 Gender: ? M ?Casualty Underwriter: ?? [id number] : ?1940 ? Requested By: MARCIA Boo Order Number: [id number] ? Julia WRIGHT: ?? BRAYAN CUENCA MD ? Measurements Intervals ?[place] ? Rate: ? 69 ? P: ?147 TN: ? 134 ?QRS: ?-67 QRSD: ? 160 [...] 2016-02-27 Pat Name: NABIL IGLESIAS Department: [facility] Room: [id number] Gender: M Casualty Underwriter: [id number] : 1940 Requested By: MARCIA Boo Order Number: [id number] Reading MD: BRAYAN CUENCA MD Measurements Intervals [place] Rate: 69 P: 147 TN: 134 QRS: -67 QRSD: 160 T: -59 QT: 434 QTc: 467 Interpretive Statements ELECTRONIC ATRIAL PACEMAKER ELECTRONIC VENTRICULAR PACEMAKER Compared to ECG 02/27/2016 08:08:46 No significant changes I reviewed the tracing and have either agreed or edited the findings inthis report. Electronically Signed On 02-28-16 09:01:04 EDT by BRAYAN BEEBE. Navdeep Hurd MD CARDIAC ECG ORD ERABLES [facility] EKG documented in this encounter Visit [...] Reason: Other - Comment: pt already took OWNER PROFESSIONAL ENGINEER, takes other meds at HS) 921 [...] Reason: Other - Comment: pt already took OWNER PROFESSIONAL ENGINEER, takes other meds at HS)2100 (Given - Provider: Mady Bruno RN) spironolactone (ALDACTONE) tablet 12.5 mg 12.5 mg, oral, DAILY, First dose on Thu02/27/16 at 1245, Until Discontinued, Routine 1306 (Not Given - Provider: Nneka Stuart RN - Reason: Other - Comment: pt already took OWNER PROFESSIONAL ENGINEER, takes other meds at HS)2102 (Given - Provider: Mady Bruno RN) tamsulosin (FLOMAX) capsule 0.4 mg 0.4 mg, oral, DAILY, First dose on Thu02/27/16 at 1245, Until Discontinued, Routine 1306 (Not Given - Provider: Nneka Stuart RN - Reason: Other - Comment: pt already took OWNER PROFESSIONAL ENGINEER, takes other meds at HS) 921 [...] 02/02 documented in this encounter Care Teams Mold Mechanic Relationship Specialty Start Date End Date Clem Olvera MD [address] [place] [id number] PCP - General 12/18/15 documented as of this encounter
--- OUTSIDE RECORDS SUMMARY | 2024-02-16 08:07 | XMS_ITS | Encounter Summary ---
Author Organization [facility] Address [address] [place] [address] Care Team Providers Care Data Management Manager Name Role Phone Unknown, Provider Primary Care Provider [phone] Clem Olvera MD Primary Care Provider [phone] Encounter Details Date Type Department Care Team (Late st Contact Info) Description 11/29/2015 Pre-Procedure Orders Encounter [facility] [address] [place], [place] [id number] Navdeep Hurd MD [address] [place] [address] [address] Social History Tobacco Use Types [...] Patient: Nabil Streeter. Attending: Dr. Moran Scrrajinder Audiovisual Equipment Operator: Dr. Fantasma Dhillon History/indication: The patient [...] Patient: Nabil Streeter Attending: Dr. Dean Bailey Audiovisual Equipment Operator: Dr. Fantasma Dhillon History/indication: The patient [...] filedocumented in this encounter Care Teams Data Management Manager Relationship Specialty Start Date End Date Unknown, Provider, PCP - General 12/06/12 12/17/15 Clem Olvera MD [address] [place] [id number] PCP - General 12/18/15 documented as of this encounter
--- OUTSIDE RECORDS SUMMARY | 2024-02-16 08:07 | XMS_ITS | Referral Summary ---
Author Organization [facility] Address [address] [place] [address] Care Team Providers Care Oracle Distribution Consultant Name Role Phone Clem Olvera MD Primary Care Provider [phone] Allergies No known active allergies Medications Medication [...] Advance Directives For more information, please contact: [phone] * Full Code (Latest Code Status on File) Date Activated Date Inactivated Comments 02/27/2016 8:49 02/28/2016 15:40 Question Answer Comments Reason for decision includes: Full code consistent with overall plan of care Who participated in the discussion? Not Discusse d Care Teams Oracle Distribution Consultant Relationship Specialty Start Date End Date Clem Olvera MD [address] [place] [phone] PCP - General 12/18/15
--- OUTSIDE RECORDS SUMMARY | 2024-02-16 08:07 | XMS_ITS | Encounter Summary ---
[place] [address] Care Team Providers Care Drill Press Operator Helper Name Role Phone Donny Cooper MD Primary Care Provider [phone] Encounter Details Date Type Department Care Team (Latest Contact Info) Description 08/06/2023 10:00 AM EDT - 08/06/2023 11:59 PM EDT Hospital Encounter [place] [address] Discharge Disposition: Home Social History Tobacco Use [...] [facility] Hospital Encounter [place] [address] Arrived documented as of this encounter Visit Diagnoses Not on filedocumented in this encounter Care Teams Drill Press Operator Helper Relationship Specialty Start Date End Date Donny Cooper MD [address] [place] [address] PCP - General Family Medicine 02/25/19 documented as of this encounter
--- OUTSIDE RECORDS SUMMARY | 2024-02-16 08:07 | XMS_ITS | Encounter Summary ---
Author Organization [facility] Address [address] [place] [address] Care Team Providers Care Servicer Name Role Phone Clem Olvera MD Primary Care Provider Reason for Visit * Reason Onset Date Comments Appointment Related 10/23/2016 Check for fo llow up of pacer Encounter Details Date Type Department Care Team ([facility] Contact Info) Description 10/23/2016 Telephone [facility] Cardiology - [address] [place] [address] Pacemaker, Pace Appointment Related (Check [...] that Nabil had his pacemaker checked in [place] where they are for the winter. They have some back and are being followed by Dr. Hurd at [facility]. documented in this encounter Plan of Treatment Not on file documented as of this encounter Visit Diagnoses Not on filedocumented in this encounter Care Teams Servicer Relationship Specialty Start Date End Date Clem Olvera MD [address] [place] [address] PCP - General 12/18/15 documented as of this encounter
--- OUTSIDE RECORDS SUMMARY | 2024-02-16 08:07 | XMS_ITS | Encounter Summary ---
[place] [address] Care Team Providers Care Nail Making Machine Setter Name Role Phone Donny Cooper MD Primary Care Provider [phone] Encounter Details Date Type Department Care Team (Latest Contact Info) Description 01/03/2023 10:00 AM EDT - 01/03/2023 11:59 PM EDT Hospital Encounter [place] [address] Discharge Disposition: Home Social History Tobacco Use [...] Contact Info) Description 05/02/2024 10:00 AM [facility] Hospital Encounter [place] [address] Arrived documented as of this [...] on filedocumented in this encounter Care Teams Nail Making Machine Setter Relationship Specialty Start Date End Date Donny Cooper MD [address] [place] [address] PCP - General Family Medicine 02/25/19 documented as of this encounter
--- OUTSIDE RECORDS SUMMARY | 2024-02-16 08:07 | XMS_ITS | Encounter Summary ---
Author Organization [facility] Address [address] [place] [address] Care Team Providers Care Post Hole Digging Machine Operator Name Role Phone Unavailable Primary Care Provider Unavailabl e Encounter Details Date Type Department Care Team (Late st Contact Info) Description 12/02/2012 Results Only [facility] Laboratory Services - [facility] ([facility]) [address] [place] [address] [id number] Satinder Edwards MD [address] [place] [address] Social History Tobacco Use Types Packs/Day Years [...] ? NABIL IGLESIAS ? Accession #: ? [id number] ? : ? 1940 (Age: 72) ??M [...] Co de Phone Number DIVYA BERRY [address] [place] [address] documented in this encounter Visit Diagnoses Not on filedocumented in this encounter
--- OUTSIDE RECORDS SUMMARY | 2024-02-16 08:07 | XMS_ITS | Encounter Summary ---
Author Organization 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 Procedures IMPLANTABLE CARDIAC DEFIBRILLATOR PROCEDURE Navdeep Hurd MD [address] [place], [place] [address]A [address] [place] [address] Referral ID Status Reason Start Date Expiration Date Visits Re quested Visits Authorized [id number] Closed 02/13/2016 1 1 Encounter Details Date Type Department Care Team (Latest Contact Info) Description 02/13/2016 Pre-Procedure Orders Encounter [facility] [address] [place], [place] [address] Navdeep Hurd MD [address] [facility] [address] [place] [address] ICD (implantable cardioverter-defibril lator) battery [...] 8 EDT Narrative 02/27/2016 15:17 EDT *Cardiology* [address] [place] [address] Lead Revision (Report amended ) Patient: Nabil Iglesias ?Study Date: ?02/27/2016 ? Accession #: ? [id number] : ? 1940 Referring: Clem Olvera Attending: [...] 0.35 glide wire a Nick MENDOZAW 6F ([facility]) 6 mm-40 mm balloon dilation still [...] Venograms were performed in the MOORE and SPANISH projections and a suitable mid-lateral LV branch [...] fascia. The leads were connected to a REHAB NURSING TECH-D device. Device and Lead detail in table [...] Implanted device: Medtronic - Viva Quad XT REHAB NURSING TECH-D DF4 - Serial number: [id number] Explanted device: Medtronic - Viva XT REHAB NURSING TECH-D DF4 - Serial number: [id number]. LEAD PARAMETERS + + + + + [...] + + + + + Serial number [id number] ? [id number] ?? [id number] ?? [id number] ? + + + + [...] outpatient status is indicated. ?Electronically signed by Guslhan Drummond MD, PhD 05/12/2016 15:31 Procedure Note Gulshan Drummond MD - 05/12/2016 *Cardiology* [address] [place] [address] Lead Revision (Report amended ) Patient: Nabil [...] therefore over an 0.[address] [facility] ([facility]) 6 mm-40 mm balloon dilation still [...] Venograms were performed in the MOORE and SPANISH projections and a suitable mid-lateral LV branch [...] fascia. The leads were connected to a REHAB NURSING TECH-D device. Device and Lead detail in table [...] Implanted device: Medtronic - Viva Quad XT REHAB NURSING TECH-D DF4 - Serial number: [id number] Explanted device: Medtronic - Viva XT REHAB NURSING TECH-D DF4 - Serial number: [id number]. LEAD PARAMETERS + + + + + + Lead # 1 2 3 4 + + + + + + Chamber RA RV LV LV + + + + + + Date 07/19/2002 07/18/2013 02/27/2016 07/18/2013 implanted + + + + + + Model St. Esa Medtronic Medtronic Enpath information [id number] Attain Epicardial Performa 4298 + + + + + + Serial number [id number] + + + + + + [...] situ documented in this encounter Care Teams Science Interpreter Relationship Specialty Start Date End Date Clem Olvera MD [address] [place] [address] PCP - General 12/18/15 documented as of this encounter
--- OUTSIDE RECORDS SUMMARY | 2024-02-16 08:07 | XMS_ITS | Encounter Summary ---
[place] [address] Care Team Providers Care Drilling Field Specialist Name Role Phone Donny Cooper MD Primary Care Provider [phone] Encounter Details Date Type Department Care Team (Latest Contact Info) Description 11/04/2023 10:00 AM EDT - 11/04/2023 11:59 PM EDT Hospital Encounter [place] [address] Discharge Disposition: Home Social History Tobacco Use [...] [facility] Hospital Encounter Non-[place] [address] Arrived documented as of this [...] filedocumented in this encounter Care Teams Drilling Field Specialist Relationship Specialty Start Date End Date Donny Cooper MD [address] [place] [address] PCP - General Family Medicine 02/25/19 documented as of this encounter
--- OUTSIDE RECORDS SUMMARY | 2024-02-16 08:07 | XMS_ITS | Encounter Summary ---
[place] [address] Care Team Providers Care Client Retention Specialist Name Role Phone Donny Cooper MD Primary Care Provider [phone] Encounter Details Date Type Department Care Team (Latest Contact Info) Description 04/03/2023 10:00 AM EST - 04/03/2023 11:59 PM [facility] Hospital Encounter [place] [address] Discharge Disposition: Home Social History Tobacco Use [...] Contact Info) Description 05/02/2024 10:00 AM [facility] Hospital Encounter [place] [address] Arrived documented as of this [...] filedocumented in this encounter Care Teams Client Retention Specialist Relationship Specialty Start Date End Date Donny Cooper MD [address] [place] [address] PCP - General Family Medicine 02/25/19 documented as of this encounter
--- OUTSIDE RECORDS SUMMARY | 2024-02-16 08:07 | XMS_ITS | Encounter Summary ---
[place] [address] Care Team Providers Care Mail Service Coordinator Name Role Phone Donny Cooper MD Primary Care Provider [phone] Encounter Details Date Type Department Care Team (Late st Contact Info) Description 12/28/2023 Notes Only Cardiology at [address] [phone] Kanika Shell Social History Tobacco Use Types [...] [facility] Encounter [place] [address] Arrived documented as of this encounter Visit Diagnoses Not on filedocumented in this encounter Care Teams Mail Service Coordinator Relationship Specialty Start Date End Date Donny Cooper MD [address] [place] [address] PCP - General Family Medicine 02/25/19 documented as of this encounter
--- OUTSIDE RECORDS SUMMARY | 2024-02-16 08:08 | XMS_ITS | Encounter Summary ---
Author Organization [facility] [address] Care Team Providers Care Diesel Mechanic Apprentice Name Role Phone Marques Martinez MD Primary Care Provider [phone] Encounter Details Date Type Department Care Team (Late st Contact Info) Description 05/01/2010 3:10 PM EST Office [place] [phone] Jairon Fenton MD [facility] [place] [address] Discharge Disposition: Home Social History Tobacco Use [...] AM EST Hospital Encounter Non-[place] [address] Arrived documented as of this encounter Visit Diagnoses Not on filedocumented in this encounter Care Teams Diesel Mechanic Apprentice Relationship Specialty Start Date End Date Marques Martinez MD [address] [place] [address] PCP - General 04/01/10 04/08/11 documented as of this encounter
--- OUTSIDE RECORDS SUMMARY | 2024-02-16 08:08 | XMS_ITS | Encounter Summary ---
[facility] [place] [address] Care Team Providers Care Extern Name Role Phone Donny Cooper MD Primary Care Provider [phone] Encounter Details Date Type Department Care Team (Latest Contact Info) Description 10/03/2022 10:00 AM EDT Office Visit Cardiology at [address] [address] [place], [place] [facility] [place] [address] Cardiomyopathy, primary; Presence of cardiac resynchronization therapy defibrillator (TOP CASE ASSEMBLER-D); Diaphragmatic stimulation by cardiac pacemaker, initial [...] original note were not included. Cardiac Device TOP CASE ASSEMBLER-D Programming Evaluation Nabil Iglesias [id number] 10/03/2022 History: Mr. 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 [...] AM EST Hospital Encounter Non-[place] [address] Arrived documented as of this encounter Procedures Procedure Name Priority Date/Time Associated Diagnosis Comments EKG 12-LEAD Routine 10/03/2022 11:00 AM EDT Cardiomyopathy, primary Presence of cardiac resynchronization therapy defibrillator (TOP CASE ASSEMBLER-D) Diaphragmatic stimulation by cardiac pacemaker, initial encounter documented in this encounter Results * EKG 12 Lead (10/03/2022 11:00 AM EDT) Ventricular rate 74 BPM MUSE SYSTEM Atrial Rate 74 BPM MUSE SYSTEM P-R Interval 154 ms MUSE SYSTEM QRS Duration 162 ms MUSE SYSTEM Q-T Interval 470 ms MUSE SYSTEM QTC Calculated (Bezet) 521 ms MUSE SYSTEM Calculated P [place] 30 degrees MUSE SYSTEM Calculated R [place] -98 degrees MUSE SYSTEM Calculated T [place] 41 degrees MUSE SYSTEM INTERPRETATION Atrial-sense d [...] cardiomyopathies Presence of cardiac resynchronization therapy defibrillator (TOP CASE ASSEMBLER-D) Diaphragmatic stimulation by cardiac pacemaker, initial encounter documented in this encounter Care Teams Extern Relationship Specialty Start Date End Date Donny Cooper MD [address] [place] [address] PCP - General Family Medicine 02/25/19 documented as of this encounter
--- OUTSIDE RECORDS SUMMARY | 2024-02-16 08:08 | XMS_ITS | Encounter Summary ---
[place] [address] Care Team Providers Care Manager Installation Name Role Phone Donny Cooper MD Primary Care Provider [phone] Encounter Details Date Type Department Care Team [...] st Contact Info) Description 05/02/2024 10:00 AM [facility] Hospital Encounter Non-Invasive [place] [address] Arrived documented as of this encounter Visit Diagnoses Not on filedocumented in this encounter Care Teams Manager Installation Relationship Specialty Start Date End Date Donny Cooper MD [address] [place] [address] PCP - General Family Medicine 02/25/19 documented as of this encounter
--- OUTSIDE RECORDS SUMMARY | 2024-02-16 08:08 | XMS_ITS | Encounter Summary ---
[place] [address] Care Team Providers Care Lead Care Manager Name Role Phone Donny Cooper MD Primary Care Provider [phone] Encounter Details Date Type Department Care Team (Latest Contact Info) Description 07/07/2022 10:00 AM EST - 07/07/2022 11:59 PM EST Hospital Encounter Non-[place] [address] Discharge Disposition: Home Social History Tobacco Use [...] AM EST Hospital Encounter Non-[place] [address] Arrived documented as of this [...] filedocumented in this encounter Care Teams Lead Care Manager Relationship Specialty Start Date End Date Donny Cooper MD [address] [place] [address] PCP - General Family Medicine 02/25/19 documented as of this encounter
--- OUTSIDE RECORDS SUMMARY | 2024-02-16 08:08 | XMS_ITS | Encounter Summary ---
Author Organization [facility] [place] [address] Care Team Providers Care Relief Captain Name Role Phone Donny Cooper MD Primary Care Provider [phone] Encounter Details Date Type Department Care Team (Latest Contact Info) Description 06/25/2021 3:23 PM EST - 06/25/2021 11:59 PM EST Hospital Encounter Non-[place] [address] Alber Seals MD [facility] [place] [address] Cardiomyopathy, primary Discharge Disposition: Home Social History [...] AM EST Hospital Encounter Non-Invasive [place] [address] Arrived documented as of this encounter Procedures Procedure Name Priority Date/Time Associated Diagnosis Comments ICD INTERROGATION 3 MONTH Routine 06/25/2021 3:24 PM EST Cardiomyopathy, primary documented in this encounter Results * ICD INTERROGATION 3 MONTH (06/25/2021 3:24 PM EST) Anatomical Region Laterality Modality Other Narrative 06/25/2021 3:42 PM EST Cardiac Device Remote Monitoring Report Summary Medtronic Carelink Device: DIRECTOR PROCESS ENGINEERING-D Model: VIVA QUAD Battery: 2.95 v, estimated longevity 2 years 6 months Pacing percentage: 90% DIRECTOR PROCESS ENGINEERING paced Events: Presenting rhythm: atrial paced/biventricular paced Frequent PVC's Impression Normal device function Follow Up As per schedule - in-clinic and remote ALBER SEALS MD 06/25/21 Alber Seals MD IMPLANTABLE CARDIAC DEVICE documented in this encounter Visit Diagnoses Diagnosis Cardiomyopathy, primary Other primary cardiomyopathies documented in this encounter Care Teams Relief Captain Relationship Specialty Start Date End Date Donny Cooper MD [address] [place] [address] PCP - General Family Medicine 02/25/19 documented as of this encounter
--- OUTSIDE RECORDS SUMMARY | 2024-02-16 08:08 | XMS_ITS | Encounter Summary ---
Author Organization [facility] [place] [address] Care Team Providers Care Tuck Pointer Name Role Phone Marques Martinez MD Primary Care Provider [phone] Encounter Details Date Type Department Care Team (Late st Contact Info) Description 03/30/2010 [place] [address] Javier Barajas MD [facility] [place] [address] Social History Tobacco Use Types Packs/Day Years [...] AM EST Hospital Encounter Non-[place] [address] Arrived documented as of this encounter Procedures [...] AM EST Jairon Fenton MD CHEMISTRY ORDERABLES [facility] * (ABNORMAL) CREATININE, SERUM (04/01/2010 6:09 AM [...] Fenton MD CHEMISTRY ORDERABLES Performing Organization Address [facility] [[email or web address] de Phone Number CERNER CHRISTOSENNIUM * BUN (04/01/2010 6:09 AM EST) Blood Urea Nitrogen 12 10 - 20 mg/dL CERNER MILLENNIUM Blood specimen (specimen) 04/01/2010 6:09 AM EST 04/01/2010 6:09 AM EST Jairon Fenton MD CHEMISTRY ORDERABLES Performing Organization Address [facility] [[email or web address] de Phone Number CERNER CHRISTOSENNIUM * (ABNORMAL) [...] MD HEMATOLOGY ORDERABLE S Performing Organization Address [facility] [[email or web address] de Phone Number CERIVIS MILLENNIUM * HEPATIC [...] Fenton MD CHEMISTRY ORDERABLES Performing Organization Address [facility] Phone Number CERIVIS MILLENNIUM * [...] Fenton MD CHEMISTRY ORDERABLES Performing Organization Address [facility] Co de Phone Number CERIVIS MILLENNIUM * CREATININE, SERUM (03/30/2010 6:05 PM EST) Creatinine 0.87 0.80 - 1.50 mg/dL [facility] Est Glomerular Filtration Rate >60 >=60 [facility] Comment: The National Kidney Disease Education [...] Urea Nitrogen 18 10 - 20 mg/dL [facility] Blood specimen (specimen) 03/30/2010 6:05 PM EST 03/30/2010 6:13 PM EST Jairon Fenton MD CHEMISTRY ORDERABLES Performing Organization Address [facility] [[email or web address]] de Phone Number DEJA MOSQUEDAIUM * APTT (03/30/2010 6:05 PM EST) Partial Thromboplastin Time 26 25 - 37 sec CERNER MILLENNIUM Comment: Recommended therapeutic PTT range for full dose unfractionated heparin is 80-114 seconds. Blood specimen (specimen) 03/30/2010 6:05 PM EST 03/30/2010 6:14 PM EST Jairon Fenton MD HEMATOLOGY ORDERABLE S Performing Organization Address [facility] Phone Number DEJA SEGOVIA * PROTIME-INR (03/30/2010 6:05 PM EST) Prothrombin Time 14.2 12.3 - 14.7 sec [facility] Comment: [facility] Transfusion Committee Guidelines: INR less than 2.0, PTT less than OR equal to 43.5 seconds, or Fibrinogen greater than or equal to 100 mg/dl indicate adequate procoagulant activity for hemostasis in patients without underlying bleeding disorders. International Normalization Ratio 1.1 0.9 - 1.1 [facility] Blood specimen (specimen) 03/30/2010 6:05 PM EST 03/30/2010 6:14 PM EST Jairon Fenton MD HEMATOLOGY ORDERABLE S Performing Organization Address [facility] [[email or web address]] de Phone Number DEJA SEGOVIA * (ABNORMAL) [...] Standard Deviation 44.2 35.0 - 46.0 fL [facility] RDW coefficient of variation 13.1 10.9 - 14.4 % [facility] Mean Platelet Volume 10.6 9.0 - 12.0 fL [facility] Blood specimen (specimen) 03/30/2010 6:05 PM EST 03/30/2010 6:13 PM EST Jairon Fenton MD HEMATOLOGY ORDERABLE S Performing Organization Address City/[facility] Co de Phone Number [facility] * REFLEX LAB-ANTIBODY SCREEN (03/30/2010 3:17 PM EST) [facility] Ab Screen Interp Negative [facility] Expires at [id number] on: [id number] [facility] Blood specimen (specimen) 03/30/2010 3:17 PM EST 03/30/2010 3:17 PM EST Javier Barajas MD BLOOD BANK LAB ORDER PRECIOUS Performing Organization Address [facility] Co de Phone Number [facility] * REFLEX LAB-ABO/RH (03/30/2010 3:17 PM EST) [facility] ABORH Type A Pos [facility] Blood specimen (specimen) 03/30/2010 3:17 PM EST 03/30/2010 3:17 PM EST Javier Barajas MD BLOOD BANK LAB ORDER PRECIOUS Performing Organization Address [facility] Co de Phone Number [facility] * ELECTROLYTE PANEL (03/30/2010 2:50 PM EST) [facility] Sodium 135 135 - 145 mmol/L [facility] Potassium 4.3 3.5 - 5.0 mmol/L [facility] Comment: Please note: ??Patients with WBC [...] PM EST Javier Barajas MD CHEMISTRY ORDERABLES [facility] * CREATININE, SERUM (03/30/2010 2:50 PM [...] Barajas MD CHEMISTRY ORDERABLES Performing Organization Address [facility] Phone Number [facility] * BUN (03/30/2010 2:50 PM EST) Blood Urea Nitrogen 18 10 - 20 mg/dL [facility] Blood specimen (specimen) 03/30/2010 2:50 PM EST 03/30/2010 3:05 PM EST Javier Barajas MD CHEMISTRY ORDERABLES Performing Organization Address [facility] Phone Number [facility] * GLUCOSE, RANDOM (03/30/2010 2:50 PM EST) Glucose 95 <=199 mg/dL [facility] Comment:Diabetes: >=200 mg/d L plus symptoms Blood specimen (specimen) 03/30/2010 2:50 PM EST 03/30/2010 3:05 PM EST Javier Barajas MD CHEMISTRY ORDERABLES Performing Organization Address [facility] Phone Number [facility] * APTT (03/30/2010 2:50 PM EST) Partial Thromboplastin Time 25 25 - 37 sec [facility] Comment: Recommended therapeutic PTT range for full dose unfractionated heparin is 80-114 seconds. Blood specimen (specimen) 03/30/2010 2:50 PM EST 03/30/2010 3:06 PM EST Javier Barajas MD HEMATOLOGY ORDERABLE S Performing Organization Address [facility] Phone Number [facility] * PROTIME-INR (03/30/2010 2:50 PM EST) Prothrombin Time 14.1 12.3 - 14.7 sec [facility] Comment: [facility] Transfusion Committee Guidelines: INR less than [...] on filedocumented in this encounter Care Teams Tuck Pointer Relationship Specialty Start Date End Date Marques Martinez MD [address] [place] [address] PCP - General 04/01/10 04/08/11 documented as of this encounter
--- OUTSIDE RECORDS SUMMARY | 2024-02-16 08:08 | XMS_ITS | Encounter Summary ---
Author Organization [facility] [place] [address] Care Team Providers Care Senior Sas Programmer Name Role Phone Marques Martinez MD Primary Care Provider [phone] Encounter Details Date Type Department Care Team (Late st Contact Info) Description 06/12/2010 2:10 PM EST Office [place] [phone] Jairon Fenton MD [facility] [place] [address] Discharge Disposition: Home Social History Tobacco Use [...] AM EST Hospital Encounter Non-[place] [address] Arrived documented as of this encounter Visit Diagnoses Not on filedocumented in this encounter Care Teams Senior Sas Programmer Relationship Specialty Start Date End Date Marques Martinez MD [address] [place] [address] PCP - General 04/01/10 04/08/11 documented as of this encounter
--- OUTSIDE RECORDS SUMMARY | 2024-02-16 08:08 | XMS_ITS | Encounter Summary ---
Author Organization [facility] [place] [address] Care Team Providers Care Group Leader Wafer Polishing Name Role Phone Marques Martinez MD Primary Care Provider Encounter Details Date Type Department Care Team (Late st Contact Info) Description 09/11/2010 Orders [place] [address] Jairon Fenton MD [facility] DR ORTHOPAED[place] [address] Fracture of patella, left, closed (Primary Dx) [...] Contact Info) Description 05/02/2024 10:00 AM [facility] Hospital Encounter Non[place] [address] Arrived documented as of this encounter Visit Diagnoses Diagnosis Fracture of patella, left, closed- Primary Closed fracture of patella documented in this encounter Care Teams Group Leader Wafer Polishing Relationship Specialty Start Date End Date Marques Martinez MD [address] [place] [address] PCP - General 04/01/10 04/08/11 documented as of this encounter
--- OUTSIDE RECORDS SUMMARY | 2024-02-16 08:08 | XMS_ITS | Encounter Summary ---
[place] [address] Care Team Providers Care Repair Servicer Name Role Phone Marques Martinez MD Primary Care Provider [phone] Encounter Details Date Type Department Care Team (Late st Contact Info) Description 05/01/2010 2:40 PM EST Procedure visit [place] [address] Social History Tobacco Use Types Packs/Day Years [...] AM EST Hospital Encounter Non[place] [address] Arrived documented as of this encounter Visit Diagnoses Not on filedocumented in this encounter Care Teams Repair Servicer Relationship Specialty Start Date End Date Marques Martinez MD [address] [place] [address] PCP - General 04/01/10 04/08/11 documented as of this encounter
--- OUTSIDE RECORDS SUMMARY | 2024-02-16 08:08 | XMS_ITS | Encounter Summary ---
Author Organization [facility] [place] [address] Care Team Providers Care Pl Sql Programmer Name Role Phone Donny Cooper MD Primary Care Provider [phone] Encounter Details Date Type Department Care Team (Latest Contact Info) Description 06/13/2020 12:35 PM EST - 06/13/2020 11:59 PM EST Hospital Encounter [place] [address] Alber Seals MD [facility] [place] [address] Cardiomyopathy, primary Discharge Disposition: Home Social History [...] AM EST Hospital Encounter [place] [address] Arrived documented as of this encounter Procedures Procedure Name Priority Date/Time Associated Diagnosis Comments ICD INTERROGATION 3 MONTH Routine 06/13/2020 12:36 PM EST Cardiomyopathy, primary documented in this encounter Results * ICD INTERROGATION 3 MONTH (06/13/2020 12:36 PM EST) Anatomical Region Laterality Modality Other Narrative 06/14/2020 10:38 AM EST Cardiac Device Remote Monitoring Report Summary Medtronic CATASYS 06/14/20 Device: BUILDING ECONOMIST-D Model: VIVA QUAD Battery: 2.96 v, estimated longevity 3 years, 11 months Pacing percentage: 78% ventricular paced Events: The presenting rhythm is atrial paced with biventricular pacing and frequent ventricular premature contractions No significant arrhythmias Impression Normal device function; suboptimal BUILDING ECONOMIST pacing likely secondary to frequent PVCs. Should consider in clinic follow-up for further evaluation Follow Up As per schedule - in-clinic and remote ALBER SEALS MD Alber Seals MD IMPLANTABLE CARDIAC DEVICE documented in this encounter Visit Diagnoses Diagnosis Cardiomyopathy, primary Other primary cardiomyopathies documented in this encounter Care Teams Pl Sql Programmer Relationship Specialty Start Date End Date Donny Cooper MD [address] [place] [address] PCP - General Family Medicine 02/25/19 documented as of this encounter
--- OUTSIDE RECORDS SUMMARY | 2024-02-16 08:08 | XMS_ITS | Encounter Summary ---
[place] [address] Care Team Providers Care Maintenance Advisor Name Role Phone Donny Cooper MD Primary Care Provider [phone] Encounter Details Date Type Department Care Team (Late st Contact Info) Description 03/17/2019 Telephone Cardiology at [address] [address] Sheri Quinn LNA Social [...] 11:46 AM EST Medication list reviewed with [facility] list. Please review with patient at next clinic visit. documented in this encounter Plan of Treatment Upcoming Encounters Date Type Department Care Team (Late st Contact Info) Description 05/02/2024 10:00 AM EST Hospital Encounter [place] [address] Arrived documented as of this encounter Visit Diagnoses Not on filedocumented in this encounter Care Teams Maintenance Advisor Relationship Specialty Start Date End Date Donny Cooper MD [address] [place] [address] PCP - General Family Medicine 02/25/19 documented as of this encounter
--- OUTSIDE RECORDS SUMMARY | 2024-02-16 08:08 | XMS_ITS | Encounter Summary ---
[place] [address] Care Team Providers Care Pv Design Engineer Name Role Phone Marques Martinez MD Primary Care Provider [phone] Encounter Details Date Type Department Care Team (Late st Contact Info) Description 06/12/2010 2:00 PM EST Procedure visit [place] [address] Social History Tobacco Use Types Packs/Day Years [...] AM EST Hospital Encounter Non-Invasive [place] [address] Arrived documented as of this encounter Visit Diagnoses Not on filedocumented in this encounter Care Teams Pv Design Engineer Relationship Specialty Start Date End Date Marques Martinez MD [address] [place] [address] PCP - General 04/01/10 04/08/11 documented as of this encounter
--- OUTSIDE RECORDS SUMMARY | 2024-02-16 08:08 | XMS_ITS | Encounter Summary ---
[place] [address] Care Team Providers Care Swiss Machinist Name Role Phone Donny Cooper MD Primary Care Provider [phone] Encounter Details Date Type Department Care Team (Latest Contact Info) Description 10/05/2022 10:00 AM EDT - 10/05/2022 11:59 PM EDT Hospital Encounter Non-Invasive [place]iology [place] [address] Discharge Disposition: Home Social History Tobacco Use [...] [facility] Hospital Encounter Non-Invasive [place]iology [place] [address] Arrived documented as of [...] on filedocumented in this encounter Care Teams Swiss Machinist Relationship Specialty Start Date End Date Donny Cooper MD [address] [place] [address] PCP - General Family Medicine 02/25/19 documented as of this encounter
--- OUTSIDE RECORDS SUMMARY | 2024-02-16 08:08 | XMS_ITS | Encounter Summary ---
[place] [address] Care Team Providers Care Dog Walker Name Role Phone Donny Cooper MD Primary Care Provider [phone] Encounter Details Date Type Department Care Team (Late st Contact Info) Description 06/14/2020 Telephone Cardiology at [address] [address] Nhung Briggs Social History Tobacco Use Types [...] He would like to be seen at [facility]. Email sent to Brittaney Hernandez at [facility] asking her to reach out to pt to set up the appt with either Dr. Arguelles or LANG Albert. Nhung Allen Electrophysiology Scheduling [id number] option 2 documented in this encounter Plan of Treatment Upcoming Encounters Date Type Department Care Team (Late st Contact Info) Description 05/02/2024 10:00 AM EST Hospital Encounter Non-Invasive [place] [address] Arrived documented as of this encounter Visit Diagnoses Not on filedocumented in this encounter Care Teams Dog Walker Relationship Specialty Start Date End Date Donny Cooper MD [address] [place] [address] PCP - General Family Medicine 02/25/19 documented as of this encounter
--- OUTSIDE RECORDS SUMMARY | 2024-02-16 08:08 | XMS_ITS | Encounter Summary ---
Author Organization [facility] [place] [address] Care Team Providers Care Brokerage Clerk Name Role Phone Marques Martinez MD Primary Care Provider [phone] Reason for Visit * Reason Comments Follow Up Fracture PATELLA FX DOI 03/23 10 Encounter Details Date Type Department Care Team (Late st Contact Info) Description 10/09/2010 12:40 PM EDT Office [place] [address] Jairon Gustafson MD [facility] [place] [address] Jose Francisco Bee PA [facility] [place] [address] Quadriceps tendon rupture (Primary Dx) Discharge Disposition: [...] [facility] Hospital Encounter Non-[place] [address] Arrived documented as of this encounter Visit Diagnoses Diagnosis Quadriceps tendon rupture- Primary Sprain and strain of other specified sites of knee and leg documented in this encounter Care Teams Brokerage Clerk Relationship Specialty Start Date End Date Marques Martinez MD [address] [place] [address] PCP - General 04/01/10 04/08/11 documented as of this encounter
--- OUTSIDE RECORDS SUMMARY | 2024-02-16 08:08 | XMS_ITS | Encounter Summary ---
[place] [address] Care Team Providers Care Sliver Machine Operator Name Role Phone Donny Cooper MD Primary Care Provider [phone] Encounter Details Date Type Department Care Team (Latest Contact Info) Description 04/08/2022 10:00 AM EST - 04/08/2022 11:59 PM [facility] Hospital Encounter Non-Invasive [place] [address] Discharge Disposition: Home Social History Tobacco Use [...] AM EST Hospital Encounter Non-Invasive [place] [address] Arrived documented as of this [...] on filedocumented in this encounter Care Teams Sliver Machine Operator Relationship Specialty Start Date End Date Donny Cooper MD [address] [place] [address] PCP - General Family Medicine 02/25/19 documented as of this encounter
--- OUTSIDE RECORDS SUMMARY | 2024-02-16 08:08 | XMS_ITS | Encounter Summary ---
Author Organization [facility] [place] [address] Care Team Providers Care Academic Interventionist Name Role Phone Donny Cooper MD Primary Care Provider [phone] Encounter Details Date Type Department Care Team (Latest Contact Info) Description 12/18/2020 11:57 AM EDT - 12/18/2020 11:59 PM EDT Hospital Encounter Non-[place]vasive [place] [address] Maged Arguelles MD [facility] [place] [address] Cardiomyopathy, primary Discharge Disposition: Home Social History [...] AM EST Hospital Encounter Non-[place]vasive [place] [address] Arrived documented as of this encounter Procedures Procedure Name Priority Date/Time Associated Diagnosis Comments ICD INTERROGATION 3 MONTH Routine 12/18/2020 12:00 PM EDT Cardiomyopathy, primary documented in this encounter Results * ICD INTERROGATION 3 MONTH (12/18/2020 12:00 PM EDT) Anatomical Region Laterality Modality Other Narrative 12/23/2020 11:08 PM EDT MDT HOSPICE ART THERAPIST-D remote reviewed. Normal device function. Inadequate HOSPICE ART THERAPIST at 80%. Maged Arguelles MD [facility] Cardiac Electrophysiology 12/23/2020 11:06 PM Maged Arguelles MD IMPLANTABLE CARDIAC DEVICE documented in this encounter Visit Diagnoses Diagnosis Cardiomyopathy, primary Other primary cardiomyopathies documented in this encounter Care Teams Academic Interventionist Relationship Specialty Start Date End Date Donny Cooper MD [address] [facility] [place] [address] PCP - General Family Medicine 02/25/19 documented as of this encounter
--- OUTSIDE RECORDS SUMMARY | 2024-02-16 08:08 | XMS_ITS | Encounter Summary ---
Author Organization [facility] [place] [address] Care Team Providers Care Pulp Drier Firer Name Role Phone Donny Cooper MD Primary Care Provider [phone] Encounter Details Date Type Department Care Team (Late st Contact Info) Description 07/26/2019 Notes Only Cardiology at [address] [address] Maged Arguelles MD [facility] [place] [address] Social History Tobacco Use Types Packs/Day Years [...] his Medtronic biventricular ICD is reviewed. Suboptimal ELECTRONICS RECYCLER at 84%. Normal device function. Awaiting Holter to assess PVC burden. Maged Arguelles MD S Cardiac Electrophysiology 07/26/2019 9:04 AM documented in this encounter Plan of Treatment Upcoming Encounters Date Type Department Care Team (Late st Contact Info) Description 05/02/2024 10:00 AM EST Hospital Encounter [place]vasive [place] [address] Arrived documented as of this encounter Visit Diagnoses Not on filedocumented in this encounter Care Teams Pulp Drier Firer Relationship Specialty Start Date End Date Donny Cooper MD [address] [place] [address] PCP - General Family Medicine 02/25/19 documented as of this encounter
--- OUTSIDE RECORDS SUMMARY | 2024-02-16 08:08 | XMS_ITS | Encounter Summary ---
Author Organization [facility] [place] [address] Care Team Providers Care Wind Power Project Manager Name Role Phone Clem Olvera MD Primary Care Provider [phone] Reason for Visit * Reason Comments Follow Up Fracture SP PATELLA FX DO12/12 DOI 03/30/10 Encounter Details Date Type Department Care Team (Late st Contact Info) Description 04/09/2011 1:30 PM EST Office [place] [address] Jairon Gustafson MD [facility] ORTHOPAEDIC [place] [address] Jose Francisco Bee PA [facility] ORTHOPAEDIC [place] [address] Patella fracture (Primary Dx) Discharge Disposition: Home [...] AM EST Hospital Encounter [place] [address] Arrived documented as of this encounter Visit Diagnoses Diagnosis Patella fracture- Primary Closed fracture of patella documented in this encounter Care Teams Wind Power Project Manager Relationship Specialty Start Date End Date Clem Olvera MD [address] [place] [address] PCP - General 04/09/11 02/24/19 documented as of this encounter
--- OUTSIDE RECORDS SUMMARY | 2024-02-16 08:08 | XMS_ITS | Encounter Summary ---
Author Organization [facility] [place] [address] Care Team Providers Care Secured Entrance Monitor Name Role Phone Marques Martinez MD Primary Care Provider [phone] Encounter Details Date Type Department Care Team (Late st Contact Info) Description 10/09/2010 11:35 AM EDT - 10/09/2010 11:59 PM EDT Hospital Encounter XRay at [address] [place] [address] Social History Tobacco Use Types [...] AM EST Hospital Encounter Non-Invasive Cardiology Lab [facility] [place] [address] Arrived documented as of this encounter Visit Diagnoses Not on filedocumented in this encounter Care Teams Secured Entrance Monitor Relationship Specialty Start Date End Date Marques Martinez MD [address] [place] [address] PCP - General 04/01/10 04/08/11 documented as of this encounter
--- OUTSIDE RECORDS SUMMARY | 2024-02-16 08:08 | XMS_ITS | Encounter Summary ---
[place] [address] Care Team Providers Care Firer Helper Name Role Phone Marques Martinez MD Primary Care Provider [phone] Encounter Details Date Type Department Care Team (Late st Contact Info) Description 10/03/2010 [place] [address] Marina Orosco, JADON Social History Tobacco Use Types Packs/Day Years Used Date Smoking Tobacco: Never Assessed Sex and Gender Information Value Date Recorded Sex Assigned at Not on file Gender Identity Not on file Sexual Orientation Not on file documented as of this encounter Plan of Treatment Upcoming Encounters Date Type Department Care Team (Late st Contact Info) Description 05/02/2024 10:00 AM [facility] Hospital Encounter Non-Invasive [place] [address] Arrived documented as of this encounter Visit Diagnoses Not on filedocumented in this encounter Care Teams Firer Helper Relationship Specialty Start Date End Date Marques Martinez MD [address] [place] [address] PCP - General 04/01/10 04/08/11 documented as of this encounter
[2024-02-16 08:58] VITALS: BP 113/73; PULSE 70
--- OUTSIDE RECORDS SUMMARY | 2024-02-18 07:54 | XMS_ITS | Encounter Summary ---
Author Organization [facility] [place] [address] Care Team Providers Care Pitching Coach Name Role Phone Donny Cooper MD Primary Care Provider [phone] Encounter Details Date Type Department Care Team (Late st Contact Info) Description 07/26/2019 Notes Only Cardiology at [address] [address] Maged Arguelles MD [facility] [place] [address] Social History Tobacco Use Types Packs/Day Years [...] his Medtronic biventricular ICD is reviewed. Suboptimal COMMERCIAL PARTS PROFESSIONAL at 84%. Normal device function. Awaiting Holter to assess PVC burden. Maged Arguelles MD S Cardiac Electrophysiology 07/26/2019 9:04 AM documented in this encounter Plan of Treatment Upcoming Encounters Date Type Department Care Team (Late st Contact Info) Description 05/02/2024 10:00 AM EST Hospital Encounter Non-Invasive [place] [address] Arrived documented as of this encounter Visit Diagnoses Not on filedocumented in this encounter Care Teams Pitching Coach Relationship Specialty Start Date End Date Donny Cooper MD [address] [place] [address] PCP - General Family Medicine 02/25/19 documented as of this encounter
--- OUTSIDE RECORDS SUMMARY | 2024-02-18 07:54 | XMS_ITS | Encounter Summary ---
Author Organization [facility] Address [address] [place] [address] Care Team Providers Care Cruise Guide Name Role Phone Unknown, Provider Primary Care Provider [phone] Clem Olvera MD Primary Care Provider [phone] Encounter Details Date Type Department Care Team (Late st Contact Info) Description 11/29/2015 Pre-Procedure Orders Encounter [facility] [address] [place], [place] [id number] Navdeep Hurd MD [address] [place] [address] [address] Social History Tobacco Use [...] Patient: Nabil Streeter. Attending: Dr. Moran Scrrajinder Chief Radiation Therapist: Dr. Fantasma Dhillon History/indication: The patient is [...] Patient: Nabil Streeter Attending: Dr. Dean Bailey Chief Radiation Therapist: Dr. Fantasma Dhillon History/indication: The patient is [...] on filedocumented in this encounter Care Teams Cruise Guide Relationship Specialty Start Date End Date Unknown, Provider, PCP - General 12/06/12 12/17/15 Clem Olvera MD [address] [place] [address] PCP - General 12/18/15 documented as of this encounter
--- OUTSIDE RECORDS SUMMARY | 2024-02-18 07:54 | XMS_ITS | Encounter Summary ---
[place] [address] Care Team Providers Care Garage Manager Name Role Phone Donny Cooper MD Primary Care Provider [phone] Encounter Details Date Type Department Care Team (Latest Contact Info) Description 07/02/2023 10:00 AM EST - 07/02/2023 11:59 PM EST Hospital Encounter [place] [address] Discharge Disposition: Home Social History Tobacco Use [...] st Contact Info) Description 05/02/2024 10:[address] [facility] Hospital Encounter [place] [address] Arrived documented as of this encounter Visit Diagnoses Not on filedocumented in this encounter Care Teams Garage Manager Relationship Specialty Start Date End Date Donny Cooper MD [address] [place] [address] PCP - General Family Medicine 02/25/19 documented as of this encounter
--- OUTSIDE RECORDS SUMMARY | 2024-02-18 07:54 | XMS_ITS | Encounter Summary ---
Author Organization [facility] Address [address] [place] [address] Care Team Providers Care Sales Engineer Account Manager Name Role Phone Unavailable Primary Care Provider Unavailabl e Encounter Details Date Type Department Care Team (Late st Contact Info) Description 12/02/2012 Results Only [facility] Laboratory Services - [facility] [address] [place] [address] Satinder Edwards MD [address] [place] [address] Social History Tobacco Use Types Packs/Day Years [...] ? NABIL IGLESIAS ? Accession #: ? [id number] ? : ? 1940 (Age: 72) ??M [...] MD PATHOLOGY ORDERABLE S Performing Organization Address City/State/[facility] Co de Phone Number DIVYA BERRY [address] [place] [address] documented in this encounter Visit Diagnoses Not on filedocumented in this encounter
--- OUTSIDE RECORDS SUMMARY | 2024-02-18 07:54 | XMS_ITS | Encounter Summary ---
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 [address] [place] [address] ICD (implantable cardioverter-defibril lator) battery [...] 8 EDT Narrative 02/27/2016 15:17 EDT *Cardiology* [address] [place] [address] Lead Revision (Report amended ) Patient: Nabil Iglesias ?Study Date: ?02/27/2016 ? Accession #: ? [id number] : ? 1940 Referring: Clem Olvera Attending: [...] 0.35 glide wire a Nick MENDOZAW 6F ([facility]) 6 mm-40 mm balloon dilation still [...] fascia. The leads were connected to a COMPUTER EQUIPMENT INSTALLER-D device. Device and Lead detail in table [...] Implanted device: Medtronic - Viva Quad XT COMPUTER EQUIPMENT INSTALLER-D DF4 - Serial number: [id number] Explanted device: Medtronic - Viva XT COMPUTER EQUIPMENT INSTALLER-D DF4 - Serial number: [id number]. LEAD PARAMETERS + + + + + [...] + + + + + Serial number [id number] ? [id number] ?? [id number] ?? [id number] ? + + + + [...] Gulshan Drummond MD - 05/12/2016 *Cardiology* [address] [place] [address] Lead Revision (Report amended ) Patient: Nabil [...] therefore over an 0.35 glide wire a [facility] 6F ([facility]) 6 mm-40 mm balloon dilation still [...] fascia. The leads were connected to a COMPUTER EQUIPMENT INSTALLER-D device. Device and Lead detail in table [...] Implanted device: Medtronic - Viva Quad XT COMPUTER EQUIPMENT INSTALLER-D DF4 - Serial number: [id number] Explanted device: Medtronic - Viva XT COMPUTER EQUIPMENT INSTALLER-D DF4 - Serial number: [id number]. LEAD PARAMETERS + + + + + + Lead # 1 2 3 4 + + + + + + Chamber RA RV LV LV + + + + + + Date 07/19/2002 07/18/2013 02/27/2016 07/18/2013 implanted + + + + + + Model St. Esa Medtronic Medtronic Enpath information [id number] Attain Epicardial Performa 4298 + + + + + + Serial number [id number] + + + + + + [...] situ documented in this encounter Care Teams Medicinal Plant Picker Relationship Specialty Start Date End Date Clem Olvera MD [address] [place] [address] PCP - General 12/18/15 documented as of this encounter
--- OUTSIDE RECORDS SUMMARY | 2024-02-18 07:54 | XMS_ITS | Encounter Summary ---
[place] [address] Care Team Providers Care Leather Colorer Name Role Phone Donny Cooper MD Primary Care Provider [phone] Encounter Details Date Type Department Care Team (Latest Contact Info) Description 02/02/2024 10:00 AM EDT - 02/02/2024 11:59 PM EDT Hospital Encounter Non-Invasive [place] [address] Discharge Disposition: Home Social History Tobacco Use [...] [facility] Hospital Encounter Non-Invasive [place] [address] Arrived documented as of this encounter Visit Diagnoses Not on filedocumented in this encounter Care Teams Leather Colorer Relationship Specialty Start Date End Date Donny Cooper MD [address] [place] [address] PCP - General Family Medicine 02/25/19 documented as of this encounter
--- OUTSIDE RECORDS SUMMARY | 2024-02-18 07:54 | XMS_ITS | Encounter Summary ---
[place] [address] Care Team Providers Care Chrome Worker Name Role Phone Donny Cooper MD Primary Care Provider [phone] Encounter Details Date Type Department Care Team (Latest Contact Info) Description 10/05/2022 10:00 AM EDT - 10/05/2022 11:59 PM EDT Hospital Encounter [place] [address] Discharge Disposition: Home Social History Tobacco Use [...] [facility] Hospital Encounter [place] [address] Arrived documented as of this [...] on filedocumented in this encounter Care Teams Chrome Worker Relationship Specialty Start Date End Date oDnny Cooper MD [address] [place] [address] PCP - General Family Medicine 02/25/19 documented as of this encounter
--- OUTSIDE RECORDS SUMMARY | 2024-02-18 07:54 | XMS_ITS | Encounter Summary ---
[place] [address] Care Team Providers Care Role Player Name Role Phone Donny Cooper MD Primary Care Provider [phone] Encounter Details Date Type Department Care Team (Latest Contact Info) Description 01/03/2023 10:00 AM EDT - 01/03/2023 11:59 PM EDT Hospital Encounter Non-Invasive [place] [address] Discharge Disposition: Home Social History Tobacco Use [...] st Contact Info) Description 05/02/2024 10:00 AM [facility] Hospital Encounter Non-[place]vasive [place] [address] Arrived documented as of this [...] on filedocumented in this encounter Care Teams Role Player Relationship Specialty Start Date End Date Donny Cooper MD [address] [place] [address] PCP - General Family Medicine 02/25/19 documented as of this encounter
--- OUTSIDE RECORDS SUMMARY | 2024-02-18 07:54 | XMS_ITS | Encounter Summary ---
[place] [address] Care Team Providers Care Cage Clerk Name Role Phone Marques Martinez MD Primary Care Provider [phone] Encounter Details Date Type Department Care Team (Late st Contact Info) Description 10/03/2010 [place] [address] Marina Orosco, JADON Social History Tobacco Use Types Packs/Day Years Used Date Smoking Tobacco: Never Assessed Sex and Gender Information Value Date Recorded Sex Assigned at Not on file Gender Identity Not on file Sexual Orientation Not on file documented as of this encounter Plan of Treatment Upcoming Encounters Date Type Department Care Team (Late st Contact Info) Description 05/02/2024 10:00 AM [facility] Hospital Encounter Non-Invasive [place] [address] Arrived documented as of this encounter Visit Diagnoses Not on filedocumented in this encounter Care Teams Cage Clerk Relationship Specialty Start Date End Date Marques Martinez MD [address] [place] [address] PCP - General 04/01/10 04/08/11 documented as of this encounter
--- OUTSIDE RECORDS SUMMARY | 2024-02-18 07:54 | XMS_ITS | Encounter Summary ---
Author Organization [facility] Address [address] [place] [address] Care Team Providers Care Technical Account Manager Name Role Phone Clem Olvera MD Primary Care Provider [phone] Reason for Referral * (Routine) - Closed Specialty Diagnoses / Procedures Referred By Pedro madera Referred To Contact Beatrice De La Garza NP [address] [place] [phone] Referral ID Status Reason Start Date Expiration Date V isits Requested Visits Authorized [id number] Closed Specialty Services Required 02/27/2016 1 1 Comments You must contact us if we have not contacted you or you have missed your scheduled appointment. If you have any nursing questions, please don't hesitate to call the Cardiac Arrhythmia Service at [facility] at or , extension [phone]. For any scheduling of appointments, please call [phone] or , extension [phone]. . * (Routine) - Closed Specialty Diagnoses / Procedures Referred By Pedro madera Referred To Contact Beatrice De La Garza NP [address] [address] Referral ID Status Reason Start Date Expiration Date V isits Requested Visits Authorized [id number] Closed Specialty Services Required 02/27/2016 1 1 Comments You have a pre existing appointment with Dr. Olvera on March 05 at 2:00, please have Dr. Olvera check your incision at that visit. * (Routine) - Closed Specialty Diagnoses / Procedures Referred By Contbecca t Referred To Contact Beatrice De La Garza NP [address] [address] Referral ID Status Reason Start Date Expiration Date V isits Requested Visits Authorized [id number] Closed Specialty Services Required 02/27/2016 1 1 [...] scheduled at your first appointment. - [facility] Cardiology is located at [address] [facility] in [place] -Clinics are also held in [facility], and [place], [place] and [facility]. If you live in those areas, we will make arrangements for follow-up appointments in one of those clinics.. Encounter Details Date Type Department Care Team (Late st Contact Info) Description 02/27/2016 6:30 EDT - 02/28/2016 13:39 EDT Hospital Encounter [facility] Cardiac/Telemetry Unit [address] [place] [address] Gulshan Drummond MD PhD [address] [address] Gulshan Montoya Sa, MD [address] [facility] [address] [place] [phone] AICD lead malfunction, subsequent encounter; ICD [...] EF of 20-25% status post silent inferior CA in the early . 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 He had heart failure symptoms that started around May 2013, when he was in [place], [place]. This triggered major cardiac workup including [...] then underwent a device upgrade to a LUG BREAKER AND WIRE PULLER-D device with biventricular pacing for his EF [...] been followed in cardiology outreach clinic at [facility] in [place]. Continued high pacing threshold on the epicardial [...] and plans to follow up with his Food Runner in [place] in 6-8 weeks for [...] HGBA1C Discharge Follow Up Appointments Scheduled with [facility] Appointments Outside of [facility] We Will Schedule Studies We Will Schedule Appointments We Recommend but have not been Scheduled Beatrice De La Garza NP 02/27/2016 10:59 Associated attestation - Gulshan Montoya Sa, MD - 02/28/2016 1519 EDT Attending Attestation: I saw and evaluated the patient. I discussed the case with the resident/AMUSEMENT CENTRE MANAGER/fellow and agree with the findings and plan as documented above. Gulshan bullock Sa, MD Cardiac Electrophysiology documented in this encounter Discharge Instructions * Appointments* Beatrice De La Garza NP - 02/27/2016 11:[address] Olvera on 03/05/16 at 2:00 as previously scheduled for a routine visit and for a check of your incision. Follow up with Giselle Hill NP at the [facility] in May, you will be notified [...] Notes * Lou Alfonso RN - 02/28/2016 8243 EDT Pt awaiting discharge. IV and tele was removed by primary nurse. This RN administered flu shot and provided flu information sheet. AVS and medications reviewed by RN with patient and . AVS statedcoreg was 3.25mg BID, which pt states no, they must have copied it down wrong. I'm not doing that.We've been through this in [place]. It makes me pass out. RN suggested checking with team, which pt denied and states I wont take it twice a day. He did agree to review this medication with his loan manager and plans to remain on his [...] friends and neighbors. Patient has Medicare and [facility]. Pharmacy is [facility] in [facility]. No needs identified at time of discharge. will provide transportation. Beatrice Rodriguez RN Case Manager #[id number] documented in this encounter H&P Notes * Navdeep Hurd MD - 02/27/2016 0830 EDT Cardiology Admitting H&P Admit Date: 02/27/2016 Date of Service: 02/27/2016 PCP: Clem Olvera Code Status: Full Code Chief Complaint: FINN, device battery depletion, high pacing threshold on epicardial lead HPI: 74-year-old man with coronary artery disease and ischemic cardiomyopathy status post silent inferior CA in the early . 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 He had heart failure symptoms that started around May 2013, when he was in [place], [place]. This triggered major cardiac workup including [...] point, his device was upgraded to a LUG BREAKER AND WIRE PULLER-D device with biventricular pacing. By the patient's [...] been followed in cardiology outreach clinic at [facility] in [place]. Continued high pacing threshold on the epicardial LV lead has caused a very rapid battery depletion. Dr. David Adams in [place] recommended against lead extraction and reimplant as [...] insertion 2002 2013 second pacemaker [facility] Social History Family History Social History Substance Use Topics ??? Smoking status: Former Smoker Years: 35.00 Quit date: 1989 ??? Smokeless tobacco: Not on file ??? Alcohol use 6.6 oz/week 6 Cans of beer, 5 Glasses of wine per week , lives with , retired. Spends leong in [place]. Spends the chery in [place], [place]. Quit smoking in 1990. Has 2 [...] and ischemic cardiomyopathy status post silent inferior CA in the early . Also diagnosed with [...] point, his device was upgraded to a LUG BREAKER AND WIRE PULLER-D device with biventricular pacing with a surgically [...] perfusion. * Plan of Care - Mady Burno RN - 02/27/2016 2247 EDT Problem: Daily [...] EST) 03/12/2016 12:4 3 EST Scan 2 Plastics Patternmaker PROCEDURE/MINOR JUDD GICAL ORDERABLES * ECG REPORT - SCANNED (03/04/2016 14:06 EDT) 03/04/2016 14:0 6 EDT Scan 2 Plastics Patternmaker PROCEDURE/MINOR JUDD GICAL ORDERABLES * ECG REPORT - SCANNED (03/04/2016 14:06 EDT) 03/04/2016 14:0 6 EDT Scan 2 Plastics Patternmaker PROCEDURE/MINOR JUDD GICAL ORDERABLES * IMPLANT RECORD - SCANNED (03/04/2016 14:06 EDT) 03/04/2016 14:0 6 EDT Scan 2 Plastics Patternmaker PROCEDURE/MINOR JUDD GICAL ORDERABLES * ECG REPORT - SCANNED (03/01/2016 8:58 EDT) 03/01/2016 8:58 EDT Scan 2 Plastics Patternmaker PROCEDURE/MINOR JUDD GICAL ORDERABLES * ECG REPORT - SCANNED (03/01/2016 8:58 EDT) 03/01/2016 8:58 EDT Scan 2 Plastics Patternmaker PROCEDURE/MINOR JUDD GICAL ORDERABLES * CHEST PA [...] IMAGING ORDERABLES * HEMAGRAM (02/28/2016 5:44 EDT) [facility] WBC 9.84 4.0 - 10.4 K/cmm 02/28/2016 6:26 EDT [facility] RBC 4.42 4.36 - 5.78 M/cmm 02/28/2016 6:26 T [facility] Hemoglobin 14.2 13.8 - 17.3 gm/dl 02/28/2016 6:26 [facility] HCT 40.9 39.5 - 50.2 % 02/28/2016 6:26 [facility] MCV 93 81 - 95 fl 02/28/2016 6:26 [facility] MCH 32.1 27.6 - 33.0 pg 02/28/2016 6:26 [facility] MCHC 34.7 32.8 - 36.4 gm/dl 02/28/2016 6:26 [facility] RDW-CV 13.1 11.8 - 14.1 % 02/28/2016 6:26 [facility] RDW-SD 44.6 36.5 - 45.9 fl 02/28/2016 6:26 [facility] PLT 151 141 - 377 K/cmm 02/28/2016 6:26 [facility] MPV 11.2 9.5 - 12.7 fl 02/28/2016 6:26 [facility] Blood specimen (specimen) BLOOD SPECIMEN / Unknown 02/28/2016 5:44 EDT 02/28/2016 6:13 EDT Beatrice De La Garza NP HEMATOLOGY & PF4 ORDERABLES [facility] [address] [place] [address] * (ABNORMAL) CREATININE (02/28/2016 5:44 EDT) Creatinine 0.65(L) 0.66 - 1.25 mg/dl 02/28/2016 6:48 EDT [facility] GFR, Calculated 95 >60 ml/min/1.7 3m2 02/28/2016 6:48 EDT [facility] Comment: eGFR calculated using CKD-EPI equation for non Americans. Multiply eGFR by 1.16 for Americans. Blood specimen (specimen) BLOOD SPECIMEN / Unknown 02/28/2016 5:44 EDT 02/28/2016 6:13 EDT Beatrice De La Garza NP CHEMISTRY & B LOOD GAS ORDERABLES Performing Organization Address [facility]/ZIP Co de Phone Number [facility] [address] [place] [address] * BUN (02/28/2016 5:44 EDT) BUN 14 10 - 26 mg/dl 02/28/2016 6:48 EDT [facility] Blood specimen (specimen) BLOOD SPECIMEN / Unknown 02/28/2016 5:44 EDT 02/28/2016 6:13 EDT Beatrice De La Garza AMUSEMENT CENTRE MANAGER CHEMISTRY & B LOOD GAS ORDERABLES Performing Organization Address [facility] Co de Phone Number [facility] [address] [place] [address] * ELECTROLYTES (02/28/2016 5:44 EDT) Sodium 138 136 - 145 mEq/L 02/28/2016 6:48 EDT [facility] Potassium 4.7 3.5 - 5.0 mEq/L 02/28/2016 6:48 EDT [facility] Chloride 104 96 - 110 mEq/L 02/28/2016 6:48 EDT [facility] CO2 25 22 - 32 mEq/L 02/28/2016 6:48 EDT [facility] Comment:Note new reference r hong 02/19/16 Blood specimen (specimen) BLOOD SPECIMEN / Unknown 02/28/2016 5:44 EDT 02/28/2016 6:13 EDT Beatrice De La Garza NP CHEMISTRY & B LOOD GAS ORDERABLES [facility] [address] [place] [address] * PORTABLE CHEST 1 VIEW (02/27/2016 12:46 [...] EDT) 02/27/2016 12:4 1 EDT Narrative [facility] EKG - 02/28/2016 8:57 EDT ? [facility] ? Test Date: ?2016-02-27 Pat Name: ? NABIL IGLESIAS ? Department: ?? [facility] ? Room: ? MW514 Gender: ? M ?Cyanide Case Hardener: ?? [id number] : ?1940 ? Requested By: KAIN REED L Order Number: [id number] ? Reading MD: ?? BRAYAN CUENCA MD ? Measurements Intervals ?[place] ? Rate: ? 63 ? P: ?15 KS: ? 159 ?QRS: ?234 QRSD: ? 156 ?T: ?15 QT: ? 479 ? QTc: ?493 ? Interpretive Statements ELECTRONIC VENTRICULAR PACEMAKER Compared to ECG 02/27/2016 08:10:34 No significant changes I reviewed the tracing and have either agreed or edited the findings in this report. Electronically Signed On 02-28-16 08:57:02 EDT by BRAYAN CUENCA MD. Procedure Note Brayan Cuenca MD - 02/28/2016 [facility] Test Date: 2016-02-27 Pat Name: NABIL IGLESIAS Department: [place] [address] Room: [facility] Gender: M Cyanide Case Hardener: [id number] : 1940 Requested By: KAIN Gallagher Order Number: [id number] Reading MD: BRAYAN CUENCA MD Measurements Intervals [place] Rate: 63 P: 15 KS: 159 QRS: 234 QRSD: 156 T: 15 QT: 479 QTc: 493 Interpretive Statements ELECTRONIC VENTRICULAR PACEMAKER Compared to ECG 02/27/2016 08:10:34 No significant changes I reviewed the tracing and have either agreed or edited the findings inthis report. Electronically Signed On 02-28-16 08:57:02 EDT by BRAYAN BEEBE. Gulshan Drummond MD PhD CARDIA C ECG ORDERABLES [facility] EKG * PROTIME (02/27/2016 8:45 EDT) Pro Time 12.3 10.3 - 13.1 secs 02/27/2016 9:10 EDT [facility] Comment: New prothrombin t josue range effective 01/29/16 I.N.R. 1.1 0.9 - 1.1 Ratio 02/27/2016 9:10 EDT [facility] Comment: Moderate Intensity Coumadin INR = 2.0-3.0 Adjustments in anticoagulant therapy dose should be based upon the INR and NOT the Pro Time. Blood specimen (specimen) BLOOD SPECIMEN / Unknown 02/27/2016 8:45 EDT 02/27/2016 8:54 EDT Gulshan Drummond MD PhD HEMATO LOGY & PF4 ORDERABLES [facility] [address] [place] [address] * HEMAGRAM (02/27/2016 8:45 EDT) WBC 6.47 4.0 - 10.4 K/cmm 02/27/2016 8:57 EDT [facility] RBC 4.51 4.36 - 5.78 M/cmm 02/27/2016 8:57 EDT [facility] Hemoglobin 14.7 13.8 - 17.3 gm/dl 02/27/2016 8:57 EDT [facility] HCT 41.7 39.5 - 50.2 % 02/27/2016 8:57 EDT [facility] MCV 93 81 - 95 fl 02/27/2016 8:57 EDT [facility] MCH 32.6 27.6 - 33.0 pg 02/27/2016 8:57 EDT [facility] MCHC 35.3 32.8 - 36.4 gm/dl 02/27/2016 8:57 T [facility] RDW-CV 13.1 11.8 - 14.1 % 02/27/2016 8:57 EDT [facility] RDW-SD 44.0 36.5 - 45.9 fl 02/27/2016 8:57 EDT [facility] PLT 176 141 - 377 K/cmm 02/27/2016 8:57 EDT [facility] MPV 10.7 9.5 - 12.7 fl 02/27/2016 8:57 EDT [facility] Blood specimen (specimen) BLOOD SPECIMEN / Unknown 02/27/2016 8:45 EDT 02/27/2016 8:54 EDT Gulshan Drummond MD PhD HEMATO LOGY & PF4 ORDERABLES [facility] [address] [place] [address] * ELECTROLYTES (02/27/2016 8:45 EDT) Sodium 142 136 - 145 mEq/L 02/27/2016 9:13 EDT [facility] Potassium 4.7 3.5 - 5.0 mEq/L 02/27/2016 9:13 EDT [facility] Chloride 103 96 - 110 mEq/L 02/27/2016 9:13 EDT [facility] CO2 27 22 - 32 mEq/L 02/27/2016 9:13 EDT [facility] Comment:Note new reference r hnog 02/19/16 Blood specimen (specimen) BLOOD SPECIMEN / Unknown 02/27/2016 8:45 EDT 02/27/2016 8:54 EDT Gulshan Drummond MD PhD CHEMIS TRY & BLOOD GAS ORDERABLES Performing Organization Address [facility] de Phone Number [facility] [address] [place] [address] * CREATININE (02/27/2016 8:45 EDT) Creatinine 0.69 0.66 - 1.25 mg/dl 02/27/2016 9:13 EDT [facility] GFR, Calculated 93 >60 ml/min/1.7 3m2 02/27/2016 9:13 EDT [facility] Comment: eGFR calculated using CKD-EPI equation for non Americans. Multiply eGFR by 1.16 for Americans. Blood specimen (specimen) BLOOD SPECIMEN / Unknown 02/27/2016 8:45 EDT 02/27/2016 8:54 EDT Gulshan Drummond MD PhD CHEMIS TRY & BLOOD GAS ORDERABLES Performing Organization Address City/[facility] Co de Phone Number [facility] [address] [place] [address] * BUN (02/27/2016 8:45 EDT) BUN 17 10 - 26 mg/dl 02/27/2016 9:13 EDT [facility] Blood specimen (specimen) BLOOD SPECIMEN / Unknown 02/27/2016 8:45 EDT 02/27/2016 8:54 EDT Gulshna Drummond MD PhD CHEMIS TRY & BLOOD GAS ORDERABLES [facility] [address] [place] [address] * EKG 12-LEAD (02/27/2016 8:08 EDT) 02/27/2016 8:08 EDT Narrative [facility] EKG - 02/28/2016 9:01 EDT ? [facility] ? Test Date: ?2016-02-27 Pat Name: ? NABIL IGLESIAS ? Department: ?? [facility] ? Room: ? [id number] Gender: ? M ?Cyanide Case Hardener: ?? [id number] : ?1940 ? Requested By: MARCIA Boo Order Number: [id number] ? Julia WRIGHT: ?? BRAYAN CUENCA MD ? Measurements Intervals ?[place] ? Rate: ? 69 ? P: ?147 KS: ? 134 ?QRS: ?-67 QRSD: ? 160 [...] Note Brayan Cuenca MD - 02/28/2016 [facility] Test Date: 2016-02-27 Pat Name: NABIL IGLESIAS Department: [facility] Room: CU0785 Gender: M Cyanide Case Hardener: [id number] : 1940 Requested By: MARCIA Boo Order Number: [id number] Reading MD: BRAYAN CUENCA MD Measurements Intervals [place] Rate: 69 P: 147 KS: 134 QRS: -67 QRSD: 160 T: -59 QT: 434 QTc: 467 Interpretive Statements ELECTRONIC ATRIAL PACEMAKER ELECTRONIC VENTRICULAR PACEMAKER Compared to ECG 02/27/2016 08:08:46 No significant changes I reviewed the tracing and have either agreed or edited the findings inthis report. Electronically Signed On 02-28-16 09:01:04 EDT by BRAYAN BEEBE. Navdeep Hurd MD CARDIAC ECG ORD ERABLES [facility] EKG documented in this encounter [...] Reason: Other - Comment: pt already took GEOPHYSICAL LABORATORY SUPERVISOR, takes other meds at HS) 921 [...] Reason: Other - Comment: pt already took GEOPHYSICAL LABORATORY SUPERVISOR, takes other meds at HS)2100 (Given - Provider: Mady Bruno RN) spironolactone (ALDACTONE) tablet 12.5 mg 12.5 mg, oral, DAILY, First dose on Thu02/27/16 at 1245, Until Discontinued, Routine 1306 (Not Given - Provider: Nneka Stuart RN - Reason: Other - Comment: pt already took GEOPHYSICAL LABORATORY SUPERVISOR, takes other meds at HS)2102 (Given - Provider: Mady Bruno RN) tamsulosin (FLOMAX) capsule 0.4 mg 0.4 mg, oral, DAILY, First dose on Thu02/27/16 at 1245, Until Discontinued, Routine 1306 (Not Given - Provider: Nneka Stuart RN - Reason: Other - Comment: pt already took GEOPHYSICAL LABORATORY SUPERVISOR, takes other meds at HS) 921 [...] Reina Onofre RN)1115 (Given - Provider: Reina nOofre RN) sodium chloride 0.9 % (NS) infusion [...] 02/02 documented in this encounter Care Teams Technical Account Manager Relationship Specialty Start Date End Date Clem Olvera MD [address] [place] [address] PCP - General 12/18/15 documented as of this encounter
--- OUTSIDE RECORDS SUMMARY | 2024-02-18 07:54 | XMS_ITS | Encounter Summary ---
[place] [address] Care Team Providers Care Sheeter Helper Name Role Phone Donny Cooper MD Primary Care Provider [phone] Encounter Details Date Type Department Care Team [...] [facility] [place] [address] Arrived documented as of this encounter Visit Diagnoses Not on filedocumented in this encounter Care Teams Sheeter Helper Relationship Specialty Start Date End Date Donny Cooper MD [address] [place] [address] PCP - General Family Medicine 02/25/19 documented as of this encounter
--- OUTSIDE RECORDS SUMMARY | 2024-02-18 07:54 | XMS_ITS | Encounter Summary ---
Author Organization [facility] [place] [address] Care Team Providers Care Primary Care Pediatrician Name Role Phone Donny Cooper MD Primary Care Provider [phone] Encounter Details Date Type Department Care Team (Latest Contact Info) Description 12/18/2020 11:57 AM EDT - 12/18/2020 11:59 PM EDT Hospital Encounter Non-[place] [address] Maged Arguelles MD [facility] ELECTR[place] [address] Cardiomyopathy, primary Discharge Disposition: Home Social History [...] AM EST Hospital Encounter Non-[place] [address] Arrived documented as of this encounter Procedures Procedure Name Priority Date/Time Associated Diagnosis Comments ICD INTERROGATION 3 MONTH Routine 12/18/2020 12:00 PM EDT Cardiomyopathy, primary documented in this encounter Results * ICD INTERROGATION 3 MONTH (12/18/2020 12:00 PM EDT) Anatomical Region Laterality Modality Other Narrative 12/23/2020 11:08 PM EDT MDT TANK SETTER-D remote reviewed. Normal device function. Inadequate TANK SETTER at 80%. Maged Arguelles MD [facility] Cardiac Electrophysiology 12/23/2020 11:06 PM Maged Arguelles MD IMPLANTABLE CARDIAC DEVICE documented in this encounter Visit Diagnoses Diagnosis Cardiomyopathy, primary Other primary cardiomyopathies documented in this encounter Care Teams Primary Care Pediatrician Relationship Specialty Start Date End Date Donny Cooper MD [address] [facility] [address] [place] [address] PCP - General Family Medicine 02/25/19 documented as of this encounter
--- OUTSIDE RECORDS SUMMARY | 2024-02-18 07:54 | XMS_ITS | Encounter Summary ---
Author Organization [facility] [place] [address] Care Team Providers Care Deliverer Pharmacy Name Role Phone Marques Martinez MD Primary Care Provider [phone] Encounter Details Date Type Department Care Team (Late st Contact Info) Description 10/09/2010 11:35 AM EDT - 10/09/2010 11:59 PM EDT Hospital Encounter XRay at [address] [place] [address] Social History Tobacco Use Types [...] AM EST Hospital Encounter Non-Invasive Cardiology Lab [facility] [place] [address] Arrived documented as of this encounter Visit Diagnoses Not on filedocumented in this encounter Care Teams Deliverer Pharmacy Relationship Specialty Start Date End Date Marques Martinez MD [address] [place] [address] PCP - General 04/01/10 04/08/11 documented as of this encounter
--- OUTSIDE RECORDS SUMMARY | 2024-02-18 07:54 | XMS_ITS | Encounter Summary ---
[place] [address] Care Team Providers Care Medical Director Name Role Phone Donny Cooper MD Primary Care Provider [phone] Encounter Details Date Type Department Care Team (Late st Contact Info) Description 12/28/2023 Notes Only Cardiology at [address] [phone] Kanika Shell Social History Tobacco Use Types [...] st Contact Info) Description 05/02/2024 10:00 AM [facility] Hospital Encounter Non[place] [address] Arrived documented as of this encounter Visit Diagnoses Not on filedocumented in this encounter Care Teams Medical Director Relationship Specialty Start Date End Date Donny Cooper MD [address] [place] [address] PCP - General Family Medicine 02/25/19 documented as of this encounter
--- OUTSIDE RECORDS SUMMARY | 2024-02-18 07:54 | XMS_ITS | Encounter Summary ---
Author Organization [facility] Address [address] [place] [address] Care Team Providers Care Orange Grower Name Role Phone Unavailable Primary Care Provider Unavailabl e Encounter Details Date Type Department Care Team (Late st Contact Info) Description 05/06/2001 Results Only [facility] - Maple conversion [address] [place] [address] Hernandez Partida MD [address] [place] [phone] Social History Tobacco Use Types Packs/Day Years [...] submitted entirely in cassette (B). ??(Naty Caal)/[facility] End of Report [facility] 05/06/2001 05/07/2001 9:2 5 EST Hernandez Partida MD PATHOLOGY ORDERABLES [facility] [address] [place] [address] documented in this encounter Visit Diagnoses Not on filedocumented in this encounter
--- OUTSIDE RECORDS SUMMARY | 2024-02-18 07:54 | XMS_ITS | Encounter Summary ---
Author Organization [facility] [place] [address] Care Team Providers Care Fruit And Vegetable Inspector Name Role Phone Marques Martinez MD Primary Care Provider [phone] Reason for Visit * Reason Comments Follow Up Fracture PATELLA FX DOI 03/23 10 Encounter Details Date Type Department Care Team (Late st Contact Info) Description 10/09/2010 12:40 PM EDT Office [place] [address] Jairon Gustafson MD [facility] ORTHOPAEDIC [place] [address] Jose Francisco Bee PA [facility] [place]THOPA[place] [address] Quadriceps tendon rupture (Primary Dx) Discharge Disposition: [...] st Contact Info) Description 05/02/2024 10:00 AM [facility] Hospital Encounter [place] [address] Arrived documented as of this encounter Visit Diagnoses Diagnosis Quadriceps tendon rupture- Primary Sprain and strain of other specified sites of knee and leg documented in this encounter Care Teams Fruit And Vegetable Inspector Relationship Specialty Start Date End Date Marques Martinez MD [address] [place] [address] PCP - General 04/01/10 04/08/11 documented as of this encounter
--- OUTSIDE RECORDS SUMMARY | 2024-02-18 07:54 | XMS_ITS | Encounter Summary ---
[place] [address] Care Team Providers Care Control Board Operator Name Role Phone Donny Cooper MD Primary Care Provider [phone] Encounter Details Date Type Department Care Team (Latest Contact Info) Description 08/06/2023 10:00 AM EDT - 08/06/2023 11:59 PM EDT Hospital Encounter [place] [address] Discharge Disposition: Home Social History Tobacco Use [...] st Contact Info) Description 05/02/2024 10:00 AM [facility] Hospital Encounter [place] [address] Arrived documented as of this encounter Visit Diagnoses Not on filedocumented in this encounter Care Teams Control Board Operator Relationship Specialty Start Date End Date Donny Cooper MD [address] [place] [address] PCP - General Family Medicine 02/25/19 documented as of this encounter
--- OUTSIDE RECORDS SUMMARY | 2024-02-18 07:54 | XMS_ITS | Encounter Summary ---
Author [place] [address] Care Team Providers Care It Intern Name Role Phone Donny Cooper MD Primary Care Provider [phone] Encounter Details Date Type Department Care Team (Latest Contact Info) Description 04/08/2022 10:00 AM EST - 04/08/2022 11:59 PM [facility] Hospital Encounter [place] [address] Discharge Disposition: Home Social History Tobacco Use [...] AM EST Hospital Encounter Non-[place] [address] Arrived documented as of this [...] on filedocumented in this encounter Care Teams It Intern Relationship Specialty Start Date End Date Donny Cooper MD [address] [place] [address] PCP - General Family Medicine 02/25/19 documented as of this encounter
--- OUTSIDE RECORDS SUMMARY | 2024-02-18 07:54 | XMS_ITS | Encounter Summary ---
Author Organization [facility] Address [address] [place] [address] Care Team Providers Care Apron Man Name Role Phone Clem Olvera MD Primary Care Provider [phone] Encounter Details Date Type Department Care Team (Late st Contact Info) Description 03/16/2019 Abstract [facility] [address] [place] [address] Ronal Avelar, JADON AV block, 2nd degree [...] Laterality Modality Device Narrative 03/24/2019 10:30 EST [facility] Device Visit Face Hardener: Bridgetronic Device Type: AIRWAY CONTROLLER-D Service: Remote ? 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
--- OUTSIDE RECORDS SUMMARY | 2024-02-18 07:54 | XMS_ITS | Encounter Summary ---
Author Organization [facility] Address [address] [place] [address] Care Team Providers Care Bottle Tester Name Role Phone Clem Olvera MD Primary Care Provider [phone] Encounter Details Date Type Department Care Team (Latest Contact Info) Description 12/20/2015 10:52 EDT - 12/20/2015 23:52 EDT Hospital Encounter [facility] Cardiovascular Unit [address] [place] [address] Navdeep Hurd MD [address] [place] [address] [address] Discharge Disposition: Home or Self [...] no need to beNPO or have a septic pump truck driver. However, his will be accompanying him. They [place] to the airport [place] 1000 and then will come here and check-in around 1145. He agrees to have a shower. documented in this encounter Procedure Notes * Fantasma Dhillon MD - 12/20/2015 1356 EDT IR Brief Procedure Note Attending: Leo Phlebotomy Coordinator: Alejo Pre-op Dx: Arrhythmia, need for pacemaker [...] 12/19 documented in this encounter Care Teams Bottle Tester Relationship Specialty Start Date End Date Clem Olvera MD [address] [place] [address] PCP - General 12/18/15 documented as of this encounter
--- OUTSIDE RECORDS SUMMARY | 2024-02-18 07:54 | XMS_ITS | Encounter Summary ---
Author Organization [facility] [place] [address] Care Team Providers Care Mammal Control Agent Name Role Phone Donny Cooper MD Primary Care Provider [phone] Encounter Details Date Type Department Care Team (Latest Contact Info) Description 06/25/2021 3:23 PM EST - 06/25/2021 11:59 PM EST Hospital Encounter Non-[place] [address] Alber Seals MD [facility] [place] [address] Cardiomyopathy, primary Discharge Disposition: Home Social History [...] AM EST Hospital Encounter Non-[place] [address] Arrived documented as of this encounter Procedures Procedure Name Priority Date/Time Associated Diagnosis Comments ICD INTERROGATION 3 MONTH Routine 06/25/2021 3:24 PM EST Cardiomyopathy, primary documented in this encounter Results * ICD INTERROGATION 3 MONTH (06/25/2021 3:24 PM EST) Anatomical Region Laterality Modality Other Narrative 06/25/2021 3:42 PM EST Cardiac Device Remote Monitoring Report Summary Medtronic Carelink Device: FOURCHETTE SEWER-D Model: VIVA QUAD Battery: 2.95 v, estimated longevity 2 years 6 months Pacing percentage: 90% FOURCHETTE SEWER paced Events: Presenting rhythm: atrial paced/biventricular paced Frequent PVC's Impression Normal device function Follow Up As per schedule - in-clinic and remote ALBER SEALS MD 06/25/21 Alber Seals MD IMPLANTABLE CARDIAC DEVICE documented in this encounter Visit Diagnoses Diagnosis Cardiomyopathy, primary Other primary cardiomyopathies documented in this encounter Care Teams Mammal Control Agent Relationship Specialty Start Date End Date Donny Cooper MD [address] [place] [address] PCP - General Family Medicine 02/25/19 documented as of this encounter
--- OUTSIDE RECORDS SUMMARY | 2024-02-18 07:54 | XMS_ITS | Encounter Summary ---
[place] [address] Care Team Providers Care Assistant Administrator Name Role Phone Donny Cooper MD Primary Care Provider [phone] Encounter Details Date Type Department Care Team (Latest Contact Info) Description 07/07/2022 10:00 AM EST - 07/07/2022 11:59 PM EST Hospital Encounter [place] [address] Discharge Disposition: Home Social History Tobacco Use [...] AM EST Hospital Encounter Non[place] [address] Arrived documented as of this [...] on filedocumented in this encounter Care Teams Assistant Administrator Relationship Specialty Start Date End Date Donny Cooper MD [address] [place] [address] PCP - General Family Medicine 02/25/19 documented as of this encounter
--- OUTSIDE RECORDS SUMMARY | 2024-02-18 07:54 | XMS_ITS | Encounter Summary ---
Author Organization [facility] [place] [address] Care Team Providers Care Freight Booker Name Role Phone Clem Olvera MD Primary Care Provider [phone] Reason for Visit * Reason Comments Follow Up Fracture SP PATELLA FX DO12/12 DOI 03/30/10 Encounter Details Date Type Department Care Team (Late st Contact Info) Description 04/09/2011 1:30 PM EST Office [place] [address] Jairon Gustafson MD [facility] [place] [address] Jose Francisco Bee PA [facility] [place] [address] Patella fracture (Primary Dx) Discharge Disposition: Home [...] AM EST Hospital Encounter Non-[place] [address] Arrived documented as of this encounter Visit Diagnoses Diagnosis Patella fracture- Primary Closed fracture of patella documented in this encounter Care Teams Freight Booker Relationship Specialty Start Date End Date Clem Olvera MD [address] [place] [address] PCP - General 04/09/11 02/24/19 documented as of this encounter
--- OUTSIDE RECORDS SUMMARY | 2024-02-18 07:54 | XMS_ITS | Encounter Summary ---
[facility] [place] [address] Care Team Providers Care Before And After School Daycare Worker Name Role Phone Donny Cooper MD Primary Care Provider [phone] Encounter Details Date Type Department Care Team (Latest Contact Info) Description 10/03/2022 10:00 AM EDT Office Visit Cardiology at [address] [address] Eleno No, [place] [facility] [place] [place] [address] Cardiomyopathy, primary; Presence of cardiac resynchronization therapy defibrillator (GLASS OR MIRROR INSPECTOR-D); Diaphragmatic stimulation by cardiac pacemaker, initial encounter [...] original note were not included. Cardiac Device GLASS OR MIRROR INSPECTOR-D Programming Evaluation Nabil Iglesias [id number] 10/03/2022 History: Mr. 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 [...] AM EST Hospital Encounter [place] [address] Arrived documented as of this encounter Procedures Procedure Name Priority Date/Time Associated Diagnosis Comments EKG 12-LEAD Routine 10/03/2022 11:00 AM EDT Cardiomyopathy, primary Presence of cardiac resynchronization therapy defibrillator (GLASS OR MIRROR INSPECTOR-D) Diaphragmatic stimulation by cardiac pacemaker, initial encounter documented in this encounter Results * EKG 12 Lead (10/03/2022 11:00 AM EDT) Ventricular rate 74 BPM MUSE SYSTEM Atrial Rate 74 BPM MUSE SYSTEM P-R Interval 154 ms MUSE SYSTEM QRS Duration 162 ms MUSE SYSTEM Q-T Interval 470 ms MUSE SYSTEM QTC Calculated (Bezet) 521 ms MUSE SYSTEM Calculated P [place] 30 degrees MUSE SYSTEM Calculated R [place] -98 degrees MUSE SYSTEM Calculated T [place] 41 degrees MUSE SYSTEM INTERPRETATION Atrial-sense d [...] cardiomyopathies Presence of cardiac resynchronization therapy defibrillator (GLASS OR MIRROR INSPECTOR-D) Diaphragmatic stimulation by cardiac pacemaker, initial encounter documented in this encounter Care Teams Before And After School Daycare Worker Relationship Specialty Start Date End Date Donny Cooper MD [address] [place] [address] PCP - General Family Medicine 02/25/19 documented as of this encounter
--- OUTSIDE RECORDS SUMMARY | 2024-02-18 07:54 | XMS_ITS | Encounter Summary ---
[place] [address] Care Team Providers Care Nuclear Powerplant Mechanic Name Role Phone Donny Cooper MD Primary Care Provider [phone] Encounter Details Date Type Department Care Team (Latest Contact Info) Description 04/03/2023 10:00 AM EST - 04/03/2023 11:59 PM [facility] Hospital Encounter [place] [address] Discharge Disposition: Home Social History Tobacco Use [...] [facility] Hospital Encounter Non[place] Lab [place], [place] [...] on filedocumented in this encounter Care Teams Nuclear Powerplant Mechanic Relationship Specialty Start Date End Date Donny Cooper MD [address] [place] [address] PCP - General Family Medicine 02/25/19 documented as of this encounter
--- OUTSIDE RECORDS SUMMARY | 2024-02-18 07:54 | XMS_ITS | Encounter Summary ---
[place] [address] Care Team Providers Care Sheet Cutting Operator Name Role Phone Dnony Cooper MD Primary Care Provider [phone] Encounter Details Date Type Department Care Team (Late st Contact Info) Description 03/17/2019 Telephone Cardiology at [address] [address] Sheri Quinn LNA Social History [...] 11:46 AM EST [facility] Please review with patient at next clinic visit. documented in this encounter Plan of Treatment Upcoming Encounters Date Type Department Care Team (Late st Contact Info) Description 05/02/2024 10:00 AM EST Hospital Encounter Non-[place] [address] Arrived documented as of this encounter Visit Diagnoses Not on filedocumented in this encounter Care Teams Sheet Cutting Operator Relationship Specialty Start Date End Date Donny Cooper MD [address] [place] [address] PCP - General Family Medicine 02/25/19 documented as of this encounter
--- OUTSIDE RECORDS SUMMARY | 2024-02-18 07:54 | XMS_ITS | Clinical Summary ---
Author Organization [facility] [place] [address] Care Team Providers Care Logistics Lead Name Role Phone Donny Cooper MD Primary Care Provider [phone] Allergies No known active allergies Medications Medication [...] PM EDT Hospital Encounter [place] [address] Discharge Disposition: Home 01/05/2024 Telephone Cardiology at [address] [address] Kanika Shell 12/28/2023 Notes Only Cardiology at [address] [address] Kanika Shell from Last 3 Months Immunizations [...] AM EST Hospital Encounter [place] [address] Arrived Health Maintenance Due Date Last Done Comments Tetanus/Diphtheria/Pertussis Vaccines (1 - Tdap) 08/19/1959 Zoster vaccine (1 of 2) 1990 Advance Directive 08/19/1995 Pneumoccocal Vaccine: 65+ (2 of 2 - PCV) 05/04/2009 05/04/2008 Covid-19 Vaccine (1 - 2022- season) 2024 Influenza (Flu) vaccine (1 o f 1 - Influenza standard series) 01/03/2024 02/01/2010, 03/06/2006, 02/24/2005 Medical Devices Implanted Type Area Post Commander Device Identifier Shelf Expiration Date Model / Serial / Lot Mdt : [id number] : [id number] Implanted: (Quantity not on file) Cardiac Resynchronization Therapy - Defibrillator Chest Medtronic - [id number] / [id number] / Care Teams Logistics Lead Relationship Specialty Start Date End Date Donny Cooper MD [address] [place] [address] PCP - General Family Medicine 02/25/19
--- OUTSIDE RECORDS SUMMARY | 2024-02-18 07:54 | XMS_ITS | Encounter Summary ---
Author Organization [facility] Address [address] [place] [address] Care Team Providers Care Pediatric Registered Nurse Name Role Phone Clem Olvera MD Primary Care Provider [phone] Reason for Visit * Reason Onset Date Comments Appointment Related 10/23/2016 Check for fo llow up of pacer Encounter Details Date Type Department Care Team ([facility] Contact Info) Description 10/23/2016 Telephone [facility] Cardiology - [address] [place] [address] Pacemaker, Pace Appointment Related (Check [...] that Nabil had his pacemaker checked in [place] where they are for the winter. They have some back and are being followed by Dr. Hurd at [facility]. documented in this encounter Plan of Treatment Not on file documented as of this encounter Visit Diagnoses Not on filedocumented in this encounter Care Teams Pediatric Registered Nurse Relationship Specialty Start Date End Date Clem Olvera MD [address] [place] [address] PCP - General 12/18/15 documented as of this encounter
--- OUTSIDE RECORDS SUMMARY | 2024-02-18 07:54 | XMS_ITS | Referral Summary ---
Author Organization [facility] Address [address] [place] [address] Care Team Providers Care Nut Picker Name Role Phone Clem Olvera MD Primary Care Provider [phone] Allergies No known active allergies Medications Medication [...] Advance Directives For more information, please contact: [phone] * Full Code (Latest Code Status on File) Date Activated Date Inactivated Comments 02/27/2016 8:49 02/28/2016 15:40 Question Answer Comments Reason for decision includes: Full code consistent with overall plan of care Who participated in the discussion? Not Discusse d Care Teams Nut Picker Relationship Specialty Start Date End Date Clem Olvera MD [address] [place] [id number] PCP - General 12/18/15
--- OUTSIDE RECORDS SUMMARY | 2024-02-18 07:54 | XMS_ITS | Encounter Summary ---
Author Organization [facility] [place] [address] Care Team Providers Care Architecture Drafter Name Role Phone Donny Cooper MD Primary Care Provider [phone] Encounter Details Date Type Department Care Team (Latest Contact Info) Description 06/13/2020 12:35 PM EST - 06/13/2020 11:59 PM EST Hospital Encounter Non-[place] [address] Alber Seals MD [facility] [place] [address] Cardiomyopathy, primary Discharge Disposition: Home Social History [...] AM EST Hospital Encounter Non-Invasive [place] [address] Arrived documented as of this encounter Procedures Procedure Name Priority Date/Time Associated Diagnosis Comments ICD INTERROGATION 3 MONTH Routine 06/13/2020 12:36 PM EST Cardiomyopathy, primary documented in this encounter Results * ICD INTERROGATION 3 MONTH (06/13/2020 12:36 PM EST) Anatomical Region Laterality Modality Other Narrative 06/14/2020 10:38 AM EST Cardiac Device Remote Monitoring Report Summary Medtronic [employer] 06/14/20 Device: EXPLOSIVES MIXER OPERATOR-D Model: VIVA QUAD Battery: 2.96 v, estimated longevity 3 years, 11 months Pacing percentage: 78% ventricular paced Events: The presenting rhythm is atrial paced with biventricular pacing and frequent ventricular premature contractions No significant arrhythmias Impression Normal device function; suboptimal EXPLOSIVES MIXER OPERATOR pacing likely secondary to frequent PVCs. Should consider in clinic follow-up for further evaluation Follow Up As per schedule - in-clinic and remote ALBER SEALS MD Alber Seals MD IMPLANTABLE CARDIAC DEVICE documented in this encounter Visit Diagnoses Diagnosis Cardiomyopathy, primary Other primary cardiomyopathies documented in this encounter Care Teams Architecture Drafter Relationship Specialty Start Date End Date Donny Cooper MD [address] [place] [address] PCP - General Family Medicine 02/25/19 documented as of this encounter
--- OUTSIDE RECORDS SUMMARY | 2024-02-18 07:54 | XMS_ITS | Clinical Summary ---
Author Organization [facility] Address [address] [place] [address] Care Team Providers Care Abrasive Grader Helper Name Role Phone Clem Olvera MD Primary Care Provider [phone] Allergies No known active allergies Medications Medication [...] PACEMAKER INSERTION 05/04/2002 - 05/03/20032013 second pacemaker [facility] Medical History Medical History Date Comments CAD [...] Advance Directives For more information, please contact: [phone] * Full Code (Latest Code Status on File) Date Activated Date Inactivated Comments 02/27/2016 8:49 02/28/2016 15:40 Question Answer Comments Reason for decision includes: Full code consistent with overall plan of care Who participated in the discussion? Not Discusse d Care Teams Abrasive Grader Helper Relationship Specialty Start Date End Date Clem Olvera MD [address] [place] [address] PCP - General 12/18/15
--- OUTSIDE RECORDS SUMMARY | 2024-02-18 07:54 | XMS_ITS | Encounter Summary ---
[place] [address] Care Team Providers Care Genetics Nurse Name Role Phone Donny Cooper MD Primary Care Provider [phone] Encounter Details Date Type Department Care Team (Late st Contact Info) Description 06/14/2020 Telephone Cardiology at [address] [phone] Nhung Briggs Social History Tobacco Use Types [...] would like to be seen at [facility]. Email sent to Brittaney Hernandez at [facility] asking her to reach out to pt to set up the appt with either Dr. Arguelles or LANG Albert. Nhung Allen Electrophysiology Scheduling [id number] option 2 documented in this encounter Plan of Treatment Upcoming Encounters Date Type Department Care Team (Late st Contact Info) Description 05/02/2024 10:00 AM EST Hospital Encounter Non-[place] [address] Arrived documented as of this encounter Visit Diagnoses Not on filedocumented in this encounter Care Teams Genetics Nurse Relationship Specialty Start Date End Date Donny Cooper MD [address] [place] [address] PCP - General Family Medicine 02/25/19 documented as of this encounter
--- OUTSIDE RECORDS SUMMARY | 2024-02-18 07:54 | XMS_ITS | Encounter Summary ---
Author Organization [facility] Address [address] [place] [address] Care Team Providers Care Screenplay Writer Name Role Phone Clem Olvera MD Primary Care Provider [phone] Reason for Visit * Reason Onset Date Comments Other 04/04/2019 Transfer request for Pacer Care at [facility] Encounter Details Date Type Department Care Team (Late st Contact Info) Description 04/04/2019 Telephone [facility] Cardiology Clinic [address] [place] [address] Giselle Hill, MARINE DIVER Other (Transfer request for Pacer Care at [facility]) Social History Tobacco Use Types [...] 04/04/2019 1503 EST I went into the [employer] Website and released pt to [facility] Pacer Clinic as requested. * Telephone Encounter - Suze Reynoso - 04/04/2019 1342 EST PT WILL BE HAVING HIS PACER CARE DONE AT [facility], PLEASE RELEASE HIS REMOTE MONITORING SO THAT THEY CAN PICK IT UP documented in this encounter Plan of Treatment Not on file documented as of this encounter Visit Diagnoses Not on filedocumented in this encounter Care Teams Screenplay Writer Relationship Specialty Start Date End Date Clem Olvera MD [address] [place] [address] PCP - General 12/18/15 documented as of this encounter
--- OUTSIDE RECORDS SUMMARY | 2024-02-18 07:54 | XMS_ITS | Encounter Summary ---
[place] [address] Care Team Providers Care Architectural Examiner Name Role Phone Donny Cooper MD Primary Care Provider [phone] Encounter Details Date Type Department Care Team (Late st Contact Info) Description 01/05/2024 Telephone Cardiology at [address] [address] Kanika Shell Social History Tobacco [...] AM EST Hospital Encounter Non-[place] [address] Arrived documented as of this encounter Visit Diagnoses Not on filedocumented in this encounter Care Teams Architectural Examiner Relationship Specialty Start Date End Date Donny Cooper MD [address] [place] [address] PCP - General Family Medicine 02/25/19 documented as of this encounter
--- OUTSIDE RECORDS SUMMARY | 2024-02-18 07:54 | XMS_ITS | Encounter Summary ---
Author [place] [address] Care Team Providers Care Lock Fitter Name Role Phone Donny Cooper MD Primary Care Provider [phone] Encounter Details Date Type Department Care Team (Latest Contact Info) Description 11/04/2023 10:00 AM EDT - 11/04/2023 11:59 PM EDT Hospital Encounter Non-[place] [address] Discharge Disposition: Home Social History Tobacco Use [...] st Contact Info) Description 05/02/2024 10:00 AM [facility] Hospital Encounter Non[place] [address] Arrived documented as of this [...] on filedocumented in this encounter Care Teams Lock Fitter Relationship Specialty Start Date End Date Donny Cooper MD [address] [place] [address] PCP - General Family Medicine 02/25/19 documented as of this encounter
[2024-02-18 07:55] VITALS: BP 123/74; PULSE 75; O2SAT 96
--- OUTSIDE RECORDS SUMMARY | 2024-02-18 07:55 | XMS_ITS | Encounter Summary ---
Author Organization [facility] [place] [address] Care Team Providers Care Tariff Inspector Name Role Phone Marques Martinez MD Primary Care Provider [phone] Encounter Details Date Type Department Care Team (Late st Contact Info) Description 06/12/2010 2:10 PM EST Office [place] [phone] Jairon Fenton MD [facility] [place] [address] Discharge Disposition: Home Social History Tobacco Use [...] AM EST Hospital Encounter Non-[place] [address] Arrived documented as of this encounter Visit Diagnoses Not on filedocumented in this encounter Care Teams Tariff Inspector Relationship Specialty Start Date End Date Marques Martinez MD [address] [place] [address] PCP - General 04/01/10 04/08/11 documented as of this encounter
--- OUTSIDE RECORDS SUMMARY | 2024-02-18 07:55 | XMS_ITS | Encounter Summary ---
Author Organization [facility] [place] [address] Care Team Providers Care Physician Anesthesiologist Name Role Phone Marques Martinez MD Primary Care Provider [phone] Encounter Details Date Type Department Care Team (Late st Contact Info) Description 05/01/2010 3:10 PM EST Office [place] [address] Jairon Fenton MD [facility] [place] [address] Discharge Disposition: Home Social History Tobacco Use [...] AM EST Hospital Encounter Non-Invasive [place] [address] Arrived documented as of this encounter Visit Diagnoses Not on filedocumented in this encounter Care Teams Physician Anesthesiologist Relationship Specialty Start Date End Date Marques Martinez MD [address] [place] [address] PCP - General 04/01/10 04/08/11 documented as of this encounter
--- OUTSIDE RECORDS SUMMARY | 2024-02-18 07:55 | XMS_ITS | Encounter Summary ---
[place] [address] Care Team Providers Care Manager Wellness Name Role Phone Marques Martinez MD Primary Care Provider [phone] Encounter Details Date Type Department Care Team (Late st Contact Info) Description 05/01/2010 2:40 PM EST Procedure [place] [address] Social History Tobacco Use Types Packs/Day Years [...] AM EST Hospital Encounter Non-Invasive [place] [address] Arrived documented as of this encounter Visit Diagnoses Not on filedocumented in this encounter Care Teams Manager Wellness Relationship Specialty Start Date End Date Marques Martinez MD [address] [place] [address] PCP - General 04/01/10 04/08/11 documented as of this encounter
--- OUTSIDE RECORDS SUMMARY | 2024-02-18 07:55 | XMS_ITS | Encounter Summary ---
Author Organization [facility] [place] [address] Care Team Providers Care Digital Pre Press Operator Name Role Phone Marques Martinez MD Primary Care Provider [phone] Encounter Details Date Type Department Care Team (Late st Contact Info) Description 03/30/2010 Orders [place] [address] Javier Barajas MD [facility] [place] [address] Social History Tobacco Use Types Packs/Day Years [...] EST Hospital Encounter Non-Invasive [place] [address] Arrived documented as of this encounter Procedures [...] AM EST Jairon Fenton MD CHEMISTRY ORDERABLES [facility] * (ABNORMAL) CREATININE, SERUM (04/01/2010 6:09 AM [...] Fenton MD CHEMISTRY ORDERABLES Performing Organization Address [facility] de Phone Number CERNER CHRSITOSENNIUM * BUN (04/01/2010 6:09 AM EST) Blood Urea Nitrogen 12 10 - 20 mg/dL CERNER MILLENNIUM Blood specimen (specimen) 04/01/2010 6:09 AM EST 04/01/2010 6:09 AM EST Jairon Fenton MD CHEMISTRY ORDERABLES Performing Organization Address [facility] de Phone Number CERNER CHRISTOSENNIUM [...] MD HEMATOLOGY ORDERABLE S Performing Organization Address [facility] de Phone Number CERIVIS MILLENNIUM [...] Fenton MD CHEMISTRY ORDERABLES Performing Organization Address [facility] Phone Number CERIVIS MILLENNIUM * ELECTROLYTE PANEL [...] Fenton MD CHEMISTRY ORDERABLES Performing Organization Address [facility] Co de Phone Number CERIVIS MILLENNIUM * CREATININE, SERUM (03/30/2010 6:05 PM EST) Creatinine 0.87 0.80 - 1.50 mg/dL [facility] Est Glomerular Filtration Rate >60 >=60 [facility] Comment: The National Kidney Disease Education [...] Urea Nitrogen 18 10 - 20 mg/dL [facility] Blood specimen (specimen) 03/30/2010 6:05 PM EST 03/30/2010 6:13 PM EST Jairon Fenton MD CHEMISTRY ORDERABLES Performing Organization Address [facility] de Phone Number DEJA MOSQUEDAIUM * APTT (03/30/2010 6:05 PM EST) Partial Thromboplastin Time 26 25 - 37 sec CERNER MILLENNIUM Comment: Recommended therapeutic PTT range for full dose unfractionated heparin is 80-114 seconds. Blood specimen (specimen) 03/30/2010 6:05 PM EST 03/30/2010 6:14 PM EST Jairon Fenton MD HEMATOLOGY ORDERABLE S Performing Organization Address [facility] Phone Number DEJA SEGOVIA * PROTIME-INR (03/30/2010 6:05 PM EST) Prothrombin Time 14.2 12.3 - 14.7 sec [facility] Comment: [facility] Transfusion Committee Guidelines: INR less than 2.0, PTT less than OR equal to 43.5 seconds, or Fibrinogen greater than or equal to 100 mg/dl indicate adequate procoagulant activity for hemostasis in patients without underlying bleeding disorders. International Normalization Ratio 1.1 0.9 - 1.1 [facility] Blood specimen (specimen) 03/30/2010 6:05 PM EST 03/30/2010 6:14 PM EST Jairon Fenton MD HEMATOLOGY ORDERABLE S Performing Organization Address [facility] de Phone Number DEJA SEGOVIA [...] Standard Deviation 44.2 35.0 - 46.0 fL [facility] RDW coefficient of variation 13.1 10.9 - 14.4 % [facility] Mean Platelet Volume 10.6 9.0 - 12.0 fL [facility] Blood specimen (specimen) 03/30/2010 6:05 PM EST 03/30/2010 6:13 PM EST Jairon Fenton MD HEMATOLOGY ORDERABLE S Performing Organization Address [facility] Co de Phone Number [facility] * REFLEX LAB-ANTIBODY SCREEN (03/30/2010 3:17 PM EST) [facility] Ab Screen Interp Negative [facility] Expires at [phone] on: [id number] [facility] Blood specimen (specimen) 03/30/2010 3:17 PM EST 03/30/2010 3:17 PM EST Javier Barajas MD BLOOD BANK LAB ORDER PRECIOUS Performing Organization Address [facility] Co de Phone Number [facility] * REFLEX LAB-ABO/RH (03/30/2010 3:17 PM EST) [facility] ABORH Type A Pos [facility] Blood specimen (specimen) 03/30/2010 3:17 PM EST 03/30/2010 3:17 PM EST Javier Barajas MD BLOOD BANK LAB ORDER PRECIOUS Performing Organization Address [facility] Co de Phone Number [facility] * ELECTROLYTE PANEL (03/30/2010 2:50 PM EST) [facility] Sodium 135 135 - 145 mmol/L [facility] Potassium 4.3 3.5 - 5.0 mmol/L [facility] Comment: Please note: ??Patients with WBC >100,000 [...] PM EST Javier Barajas MD CHEMISTRY ORDERABLES [facility] * CREATININE, SERUM (03/30/2010 2:50 PM [...] Barajas MD CHEMISTRY ORDERABLES Performing Organization Address [facility] Phone Number [facility] * BUN (03/30/2010 2:50 PM EST) Blood Urea Nitrogen 18 10 - 20 mg/dL [facility] Blood specimen (specimen) 03/30/2010 2:50 PM EST 03/30/2010 3:05 PM EST Javier Barajas MD CHEMISTRY ORDERABLES Performing Organization Address [facility] Phone Number [facility] * GLUCOSE, RANDOM (03/30/2010 2:50 PM EST) Glucose 95 <=199 mg/dL [facility] Comment:Diabetes: >=200 mg/d L plus symptoms Blood specimen (specimen) 03/30/2010 2:50 PM EST 03/30/2010 3:05 PM EST Javier Barajas MD CHEMISTRY ORDERABLES Performing Organization Address [facility] Phone Number [facility] * APTT (03/30/2010 2:50 PM EST) Partial Thromboplastin Time 25 25 - 37 sec [facility] Comment: Recommended therapeutic PTT range for full dose unfractionated heparin is 80-114 seconds. Blood specimen (specimen) 03/30/2010 2:50 PM EST 03/30/2010 3:06 PM EST Javier Barajas MD HEMATOLOGY ORDERABLE S Performing Organization Address [facility] Phone Number [facility] * PROTIME-INR (03/30/2010 2:50 PM EST) Prothrombin Time 14.1 12.3 - 14.7 sec [facility] Comment: [facility] Transfusion Committee Guidelines: INR less than [...] filedocumented in this encounter Care Teams Digital Pre Press Operator Relationship Specialty Start Date End Date Marques Martinez MD [address] [place] [address] PCP - General 04/01/10 04/08/11 documented as of this encounter
--- OUTSIDE RECORDS SUMMARY | 2024-02-18 07:55 | XMS_ITS | Encounter Summary ---
Author Organization [facility] [place] [address] Care Team Providers Care Coverstitch Binder Name Role Phone Marques Martinez MD Primary Care Provider Encounter Details Date Type Department Care Team (Late st Contact Info) Description 09/11/2010 Orders [place] [phone] Jairon Fenton MD [facility] [place] [address] Fracture of patella, left, closed (Primary Dx) [...] [facility] Hospital Encounter Non-Invasive [place] [address] Arrived documented as of this encounter Visit Diagnoses Diagnosis Fracture of patella, left, closed- Primary Closed fracture of patella documented in this encounter Care Teams Coverstitch Binder Relationship Specialty Start Date End Date Marques Martinez MD [address] [place] [address] PCP - General 04/01/10 04/08/11 documented as of this encounter
--- OUTSIDE RECORDS SUMMARY | 2024-02-18 07:55 | XMS_ITS | Encounter Summary ---
[place] [address] Care Team Providers Care Assistant Office Manager Name Role Phone Marques Martinez MD Primary Care Provider [phone] Encounter Details Date Type Department Care Team (Late st Contact Info) Description 06/12/2010 2:00 PM EST Procedure visit [place] [address] Social History Tobacco Use Types Packs/Day Years [...] Encounter Non-Invasive [place] [address] Arrived documented as of this encounter Visit Diagnoses Not on filedocumented in this encounter Care Teams Assistant Office Manager Relationship Specialty Start Date End Date Marques Martinez MD [address] [place] [address] PCP - General 04/01/10 04/08/11 documented as of this encounter
--- OUTSIDE RECORDS SUMMARY | 2024-02-23 08:18 | XMS_ITS | Encounter Summary ---
[place] [address] Care Team Providers Care Media Marketing Director Name Role Phone Donny Cooper MD Primary Care Provider [phone] Encounter Details Date Type Department Care Team (Latest Contact Info) Description 02/02/2024 10:00 AM EDT - 02/02/2024 11:59 PM EDT Hospital Encounter Non-[place] [address] Discharge Disposition: Home Social History Tobacco Use [...] [facility] Encounter Non-[place] [address] Arrived documented as of this encounter Visit Diagnoses Not on filedocumented in this encounter Care Teams Media Marketing Director Relationship Specialty Start Date End Date Donny Cooper MD [address] [place] [address] PCP - General Family Medicine 02/25/19 documented as of this encounter
--- OUTSIDE RECORDS SUMMARY | 2024-02-23 08:18 | XMS_ITS | Encounter Summary ---
Author Organization [facility] Address [address] [place] [address] Care Team Providers Care Ground Instructor Advanced Name Role Phone Unknown, Provider Primary Care Provider [phone] Clem Olvera MD Primary Care Provider [phone] Encounter Details Date Type Department Care Team (Late st Contact Info) Description 11/29/2015 Pre-Procedure Orders Encounter [facility] [address] [place], [place] [id number] Navdeep Hurd MD [address] [place] [address] [address] Social History Tobacco Use Types [...] Patient: Nabil Streeter. Attending: Dr. Moran Scrrajinder Trade Manager: Dr. Fantasma Dhillon History/indication: The patient [...] Patient: Nabil Streeter Attending: Dr. Dean Bailey Trade Manager: Dr. Fantsama Dhillon History/indication: The patient is a 75-year-old [...] on filedocumented in this encounter Care Teams Ground Instructor Advanced Relationship Specialty Start Date End Date Unknown, Provider, PCP - General 12/06/12 12/17/15 Clem Olvera MD [address] [place] [address] PCP - General 12/18/15 documented as of this encounter
--- OUTSIDE RECORDS SUMMARY | 2024-02-23 08:18 | XMS_ITS | Encounter Summary ---
[place] [address] Care Team Providers Care Hand Expansion Envelope Maker Name Role Phone Donny Cooper MD Primary Care Provider [phone] Encounter Details Date Type Department Care Team (Late st Contact Info) Description 06/14/2020 Telephone Cardiology at [address] [phone] Nhung Briggs Social History Tobacco Use Types [...] or LANG Albert. Nhung Allen Electrophysiology Scheduling [id number] option 2 documented in this encounter Plan of Treatment Upcoming Encounters Date Type Department Care Team (Late st Contact Info) Description 05/02/2024 10:00 AM EST Hospital Encounter Non-[place] [address] Arrived documented as of this encounter Visit Diagnoses Not on filedocumented in this encounter Care Teams Hand Expansion Envelope Maker Relationship Specialty Start Date End Date Donny Cooper MD [address] [place] [address] PCP - General Family Medicine 02/25/19 documented as of this encounter
--- OUTSIDE RECORDS SUMMARY | 2024-02-23 08:18 | XMS_ITS | Encounter Summary ---
[place] [address] Care Team Providers Care Plater Barrel Name Role Phone Donny Cooper MD Primary Care Provider [phone] Encounter Details Date Type Department Care Team (Late st Contact Info) Description 12/28/2023 Notes Only Cardiology at [address] [phone] Kanika Shell Social History Tobacco Use Types [...] st Contact Info) Description 05/02/2024 10:00 AM [facility] Hospital Encounter Non-[place] [address] Arrived documented as of this encounter Visit Diagnoses Not on filedocumented in this encounter Care Teams Plater Barrel Relationship Specialty Start Date End Date Donny Cooper MD [address] [place] [address] PCP - General Family Medicine 02/25/19 documented as of this encounter
--- OUTSIDE RECORDS SUMMARY | 2024-02-23 08:18 | XMS_ITS | Encounter Summary ---
[place] [address] Care Team Providers Care Manager Fiber Name Role Phone Donny Cooper MD Primary Care Provider [phone] Encounter Details Date Type Department Care Team (Latest Contact Info) Description 07/02/2023 10:00 AM EST - 07/02/2023 11:59 PM EST Hospital Encounter [place] [address] Discharge Disposition: Home Social History Tobacco Use [...] [facility] Hospital Encounter Non-[place] [address] Arrived documented as of this encounter Visit Diagnoses Not on filedocumented in this encounter Care Teams Manager Fiber Relationship Specialty Start Date End Date Donny Cooper MD [address] [place] [address] PCP - General Family Medicine 02/25/19 documented as of this encounter
--- OUTSIDE RECORDS SUMMARY | 2024-02-23 08:18 | XMS_ITS | Encounter Summary ---
[place] [address] Care Team Providers Care Classics Teacher Name Role Phone Donny Cooper MD Primary Care Provider [phone] Encounter Details Date Type Department Care Team [...] [facility] Hospital Encounter Non-[place] [address] Arrived documented as of this encounter Visit Diagnoses Not on filedocumented in this encounter Care Teams Classics Teacher Relationship Specialty Start Date End Date Donny Cooper MD [address] [place] [address] PCP - General Family Medicine 02/25/19 documented as of this encounter
--- OUTSIDE RECORDS SUMMARY | 2024-02-23 08:18 | XMS_ITS | Encounter Summary ---
Author Organization [facility] [place] [address] Care Team Providers Care Speaker Mounter Name Role Phone Donny Cooper MD Primary Care Provider [phone] Encounter Details Date Type Department Care Team (Latest Contact Info) Description 06/25/2021 3:23 PM EST - 06/25/2021 11:59 PM EST Hospital Encounter Non-[place] [address] Alber Seals MD [facility] [place] [address] Cardiomyopathy, primary Discharge Disposition: Home Social History [...] AM EST Hospital Encounter Non-[place] [address] Arrived documented as of this encounter Procedures Procedure Name Priority Date/Time Associated Diagnosis Comments ICD INTERROGATION 3 MONTH Routine 06/25/2021 3:24 PM EST Cardiomyopathy, primary documented in this encounter Results * ICD INTERROGATION 3 MONTH (06/25/2021 3:24 PM EST) Anatomical Region Laterality Modality Other Narrative 06/25/2021 3:42 PM EST Cardiac Device Remote Monitoring Report Summary [employer] Carelink Device: [employer]-D Model: VIVA QUAD Battery: 2.95 v, estimated longevity 2 years 6 months Pacing percentage: 90% [employer] paced Events: Presenting rhythm: atrial paced/biventricular paced Frequent PVC's Impression Normal device function Follow Up As per schedule - in-clinic and remote ALBER SEALS MD 06/25/21 Alber Seals MD IMPLANTABLE CARDIAC DEVICE documented in this encounter Visit Diagnoses Diagnosis Cardiomyopathy, primary Other primary cardiomyopathies documented in this encounter Care Teams Speaker Mounter Relationship Specialty Start Date End Date Donny Cooper MD [address] [place] [address] PCP - General Family Medicine 02/25/19 documented as of this encounter
--- OUTSIDE RECORDS SUMMARY | 2024-02-23 08:18 | XMS_ITS | Clinical Summary ---
Author Organization [facility] Address [address] [place] [address] Care Team Providers Care C T Tech Name Role Phone Clem Olvera MD Primary [...] PACEMAKER INSERTION 05/04/2002 - 05/03/20032013 second pacemaker [facility] Medical History Medical History Date Comments CAD [...] Advance Directives For more information, please contact: [phone] * Full Code (Latest Code Status on File) Date Activated Date Inactivated Comments 02/27/2016 8:49 02/28/2016 15:40 Question Answer Comments Reason for decision includes: Full code consistent with overall plan of care Who participated in the discussion? Not Discusse d Care Teams C T Tech Relationship Specialty Start Date End Date Clem Olvera MD [address] [place] [address] PCP - General 12/18/15
--- OUTSIDE RECORDS SUMMARY | 2024-02-23 08:18 | XMS_ITS | Encounter Summary ---
Author Organization [facility] [place] [address] Care Team Providers Care Salvage Mend Worker Name Role Phone Donny Cooper MD Primary Care Provider [phone] Encounter Details Date Type Department Care Team (Latest Contact Info) Description 10/03/2022 10:00 AM EDT Office Visit Cardiology at [address] [address] [place] No, [place] [facility] [place] [address] Cardiomyopathy, primary; Presence of cardiac resynchronization therapy defibrillator (SKYDIVING INSTRUCTOR-D); Diaphragmatic stimulation by cardiac pacemaker, initial encounter [...] original note were not included. Cardiac Device SKYDIVING INSTRUCTOR-D Programming Evaluation Nabil Iglesias [id number] 10/03/2022 History: Mr. 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 [...] AM EST Hospital Encounter Non-[place]vasive [place] [address] Arrived documented as of this encounter Procedures Procedure Name Priority Date/Time Associated Diagnosis Comments EKG 12-LEAD Routine 10/03/2022 11:00 AM EDT Cardiomyopathy, primary Presence of cardiac resynchronization therapy defibrillator (SKYDIVING INSTRUCTOR-D) Diaphragmatic stimulation by cardiac pacemaker, initial encounter documented in this encounter Results * EKG 12 Lead (10/03/2022 11:00 AM EDT) Ventricular rate 74 BPM MUSE SYSTEM Atrial Rate 74 BPM MUSE SYSTEM P-R Interval 154 ms MUSE SYSTEM QRS Duration 162 ms MUSE SYSTEM Q-T Interval 470 ms MUSE SYSTEM QTC Calculated (Bezet) 521 ms MUSE SYSTEM Calculated P [place] 30 degrees MUSE SYSTEM Calculated R [place] -98 degrees MUSE SYSTEM Calculated T [place] 41 degrees MUSE SYSTEM INTERPRETATION Atrial-sense d [...] cardiomyopathies Presence of cardiac resynchronization therapy defibrillator (SKYDIVING INSTRUCTOR-D) Diaphragmatic stimulation by cardiac pacemaker, initial encounter documented in this encounter Care Teams Salvage Mend Worker Relationship Specialty Start Date End Date Donny Cooper MD [address] [place] [address] PCP - General Family Medicine 02/25/19 documented as of this encounter
--- OUTSIDE RECORDS SUMMARY | 2024-02-23 08:18 | XMS_ITS | Referral Summary ---
Author Organization [facility] Address [address] [place] [address] Care Team Providers Care Product Tester Fiberglass Name Role Phone Clem Olvera MD Primary Care Provider [phone] Allergies No known active allergies Medications Medication [...] Advance Directives For more information, please contact: [phone] * Full Code (Latest Code Status on File) Date Activated Date Inactivated Comments 02/27/2016 8:49 02/28/2016 15:40 Question Answer Comments Reason for decision includes: Full code consistent with overall plan of care Who participated in the discussion? Not Discusse d Care Teams Product Tester Fiberglass Relationship Specialty Start Date End Date Clem Olvera MD [address] [place] [id number] PCP - General 12/18/15
--- OUTSIDE RECORDS SUMMARY | 2024-02-23 08:18 | XMS_ITS | Encounter Summary ---
Author Organization [facility] Address [address] [place] [address] Care Team Providers Care Flexible Machining System Machinist Name Role Phone Clem Olvera MD Primary Care Provider [phone] Encounter Details Date Type Department Care Team (Late st Contact Info) Description 03/16/2019 Abstract [facility] [address] [place] [address] Ronal Avelar, JADON AV block, 2nd degree [...] Laterality Modality Device Narrative 03/24/2019 10:30 EST [facility] Device Visit Hospice Administrator: EasyQasatronic Device Type: CLIENT LEADER-D Service: Remote ? 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
--- OUTSIDE RECORDS SUMMARY | 2024-02-23 08:18 | XMS_ITS | Encounter Summary ---
Author Organization [facility] Address [address] [place] [address] Care Team Providers Care Pipeline Systems Operator Name Role Phone Clem Olvera MD Primary Care Provider [phone] Reason for Referral * (Routine) - Closed Specialty Diagnoses / Procedures Referred By Pedro madera Referred To Contact Beatrice De La Garza NP [address] [place] [phone] Referral ID Status Reason Start Date Expiration Date V isits Requested Visits Authorized [id number] Closed Specialty Services Required 02/27/2016 1 1 Comments You must contact us if we have not contacted you or you have missed your scheduled appointment. If you have any nursing questions, please don't hesitate to call the Cardiac Arrhythmia Service at [facility] at or , extension [phone]. For any scheduling of appointments, please call [phone] or , extension [phone]. . * (Routine) - Closed Specialty Diagnoses / Procedures Referred By Pedro madera Referred To Contact Beatrice De La Garza NP [address] [address] Referral ID Status Reason Start Date Expiration Date V isits Requested Visits Authorized [id number] Closed Specialty Services Required 02/27/2016 1 1 Comments You have a pre existing appointment with Dr. Olvera on March 05 at 2:00, please have Dr. Olvera check your incision at that visit. * (Routine) - Closed Specialty Diagnoses / Procedures Referred By Contbecca t Referred To Contact Beatrice De La Garza NP [address] [address] Referral ID Status Reason Start Date Expiration Date V isits Requested Visits Authorized [id number] Closed Specialty Services Required 02/27/2016 1 1 [...] scheduled at your first appointment. - [facility] Cardiology is located at [address] [facility] in [place] -Clinics are also held in [facility], and [place], [place] and [facility]. If you live in those areas, we will make arrangements for follow-up appointments in one of those clinics.. Encounter Details Date Type Department Care Team (Late st Contact Info) Description 02/27/2016 6:30 EDT - 02/28/2016 13:39 EDT Hospital Encounter [facility] Cardiac/Telemetry Unit [address] [place] [address] Gulshan Drummond MD PhD [address] [address] Gulshan Montoya Sa, MD [address] [facility] [address] [place] [phone] AICD lead malfunction, subsequent encounter; ICD [...] EF of 20-25% status post silent inferior [place] in the early . 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 He had heart failure symptoms that started around May 2013, when he was in [place], [place]. This triggered major cardiac workup including [...] then underwent a device upgrade to a PRODUCT MARKETING ENGINEER-D device with biventricular pacing for his EF [...] been followed in cardiology outreach clinic at [facility] in [place]. Continued high pacing threshold on the epicardial [...] and plans to follow up with his Appliances Sample Maker in [place] in 6-8 weeks for which he will arrange once he has arrived in [place]. He has been provided with the implant [...] patient. I discussed the case with the resident/SUBPOENA SERVER/fellow and agree with the findings and plan as documented above. Gulshan bullock Sa, MD Cardiac Electrophysiology documented in this encounter Discharge Instructions * Appointments* Beatrice De La Garza NP - 02/27/2016 11:[address] Olvera on 03/05/16 at 2:00 as previously scheduled for a routine visit and for a check of your incision. Follow up with Giselle Hill NP at the [facility] in May, you will be notified [...] Notes * Lou Alfonso RN - 02/28/2016 5045 EDT Pt awaiting discharge. IV and tele was removed by primary nurse. This RN administered flu shot and provided flu information sheet. AVS and medications reviewed by RN with patient and . AVS statedcoreg was 3.25mg BID, which pt states no, they must have copied it down wrong. I'm not doing that.We've been through this in [place]. It makes me pass out. RN suggested checking with team, which pt denied and states I wont take it twice a day. He did agree to review this medication with his lead producer and plans to remain on his home dosing, which was in the morning. He received dose this am. Ptleft via wheelchair with . * Beatrice Rodriguez - 02/28/2016 1329 EDT Brief visit with patient and as they were being discharged. Patient states he is independent in self care and home management. He feels well supported by friends and neighbors. Patient has Medicare and [facility]. Pharmacy is [facility] in [facility]. No needs identified at time of discharge. will provide transportation. Beatrice Rodriguez RN Case Manager #[id number] documented in this encounter H&P Notes * Navdeep Hurd MD - 02/27/2016 0830 EDT Cardiology Admitting H&P Admit Date: 02/27/2016 Date of Service: 02/27/2016 PCP: Clem Olvera Code Status: Full Code Chief Complaint: FINN, device battery depletion, high pacing threshold on epicardial lead HPI: 74-year-old man with coronary artery disease and ischemic cardiomyopathy status post silent inferior [place] in the early . 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 He had heart failure symptoms that started around May 2013, when he was in [place], [place]. This triggered major cardiac workup including [...] point, his device was upgraded to a PRODUCT MARKETING ENGINEER-D device with biventricular pacing. By the patient's [...] been followed in cardiology outreach clinic at [facility] in [place]. Continued high pacing threshold on the epicardial LV lead has caused a very rapid battery depletion. Dr. David Adams in [place] recommended against lead extraction and reimplant as [...] ??? Pacemaker insertion 2002 2013 second pacemaker [facility] Social History Family History Social History Substance Use Topics ??? Smoking status: Former Smoker Years: 35.00 Quit date: 1989 ??? Smokeless tobacco: Not on file ??? Alcohol use 6.6 oz/week 6 Cans of beer, 5 Glasses of wine per week , lives with , retired. Spends leong in [place]. Spends the chery in [place], [place]. Quit smoking in 1990. Has 2 [...] and ischemic cardiomyopathy status post silent inferior [place] in the early . Also diagnosed with [...] point, his device was upgraded to a PRODUCT MARKETING ENGINEER-D device with biventricular pacing with a surgically [...] EST) 03/12/2016 12:4 3 EST Scan 2 Retail Merchandising Specialist PROCEDURE/MINOR JUDD GICAL ORDERABLES * ECG REPORT - SCANNED (03/04/2016 14:06 EDT) 03/04/2016 14:0 6 EDT Scan 2 Retail Merchandising Specialist PROCEDURE/MINOR JUDD GICAL ORDERABLES * ECG REPORT - SCANNED (03/04/2016 14:06 EDT) 03/04/2016 14:0 6 EDT Scan 2 Retail Merchandising Specialist PROCEDURE/MINOR JUDD GICAL ORDERABLES * IMPLANT RECORD - SCANNED (03/04/2016 14:06 EDT) 03/04/2016 14:0 6 EDT Scan 2 Retail Merchandising Specialist PROCEDURE/MINOR JUDD GICAL ORDERABLES * ECG REPORT - SCANNED (03/01/2016 8:58 EDT) 03/01/2016 8:58 EDT Scan 2 Retail Merchandising Specialist PROCEDURE/MINOR JUDD GICAL ORDERABLES * ECG REPORT - SCANNED (03/01/2016 8:58 EDT) 03/01/2016 8:58 EDT Scan 2 Retail Merchandising Specialist PROCEDURE/MINOR JUDD GICAL ORDERABLES * CHEST [...] IMAGING ORDERABLES * HEMAGRAM (02/28/2016 5:44 EDT) [facility] WBC 9.84 4.0 - 10.4 K/cmm [...] [facility] [address] [place] [address] * (ABNORMAL) CREATININE (02/28/2016 5:44 EDT) Creatinine [...] LOOD GAS ORDERABLES Performing Organization Address [facility]/ZIP Co de Phone Number [facility] [address] [place] [address] * BUN (02/28/2016 5:44 EDT) BUN 14 10 - 26 mg/dl 02/28/2016 6:48 EDT [facility] Blood specimen (specimen) BLOOD SPECIMEN / Unknown 02/28/2016 5:44 EDT 02/28/2016 6:13 EDT Beatrice De La Garza SUBPOENA SERVER CHEMISTRY & B LOOD GAS ORDERABLES Performing Organization Address [facility] Co de Phone Number [facility] [address] [place] [address] * ELECTROLYTES (02/28/2016 5:44 EDT) Sodium 138 [...] [facility] [address] [place] [address] * PORTABLE CHEST 1 VIEW (02/27/2016 12:46 [...] EKG - 02/28/2016 8:57 EDT ? [facility] ? Test Date: ?2016-02-27 Pat Name: ? NABIL IGLESIAS ? Department: ?? HERN[facility]NDEZ 5 ? Room: ? MW514 Gender: ? M ?Plater Barrel: ?? [id number] : ?1940 ? Requested By: KAIN REED L Order Number: [id number] ? Reading MD: ?? BRAYAN CUENCA MD ? Measurements Intervals ?Dexter ? Rate: ? 63 ? P: ?15 SC: ? 159 ?QRS: ?234 QRSD: ? 156 ?T: ?15 QT: ? 479 ? QTc: ?493 ? Interpretive Statements ELECTRONIC VENTRICULAR PACEMAKER Compared to ECG 02/27/2016 08:10:34 No significant changes I reviewed the tracing and have either agreed or edited the findings in this report. Electronically Signed On 02-28-16 08:57:02 EDT by BRAYAN CUENCA MD. Procedure Note Brayan Cuenca MD - 02/28/2016 [facility] Test Date: 2016-02-27 Pat Name: NABIL IGLESIAS Department: [place] [address] Room: [facility] Gender: M Plater Barrel: [id number] : 1940 Requested By: KAIN Gallagher Order Number: [id number] Reading MD: BRAYAN CUENCA MD Measurements Intervals Dexter Rate: 63 P: 15 SC: 159 QRS: 234 QRSD: 156 T: 15 [...] [facility] [address] [place] [address] * HEMAGRAM (02/27/2016 8:45 EDT) WBC 6.47 [...] [facility] [address] [place] [address] * ELECTROLYTES (02/27/2016 8:45 EDT) Sodium 142 [...] BLOOD GAS ORDERABLES Performing Organization Address [facility] de Phone Number [facility] [address] [place] [address] * CREATININE (02/27/2016 8:45 EDT) Creatinine 0.69 [...] BLOOD GAS ORDERABLES Performing Organization Address City/[facility] Co de Phone Number [facility] [address] [place] [address] * BUN (02/27/2016 8:45 EDT) BUN 17 10 - 26 mg/dl 02/27/2016 9:13 EDT [facility] Blood specimen (specimen) BLOOD SPECIMEN / Unknown 02/27/2016 8:45 EDT 02/27/2016 8:54 EDT Gulshan Drummond MD PhD CHEMIS TRY & BLOOD GAS ORDERABLES [facility] [address] [place] [address] * EKG 12-LEAD (02/27/2016 8:08 EDT) 02/27/2016 8:08 EDT Narrative [facility] EKG - 02/28/2016 9:01 EDT ? [facility] ? Test Date: ?2016-02-27 Pat Name: ? NABIL IGLESIAS ? Department: ?? Periop[facility] ? Room: ? WT0775 Gender: ? M ?Plater Barrel: ?? [id number] : ?1940 ? Requested By: MARCIA Boo Order Number: [id number] ? Julia WRIGHT: ?? BRAYAN CUENCA MD ? Measurements Intervals ?Dexter ? Rate: ? 69 ? P: ?147 SC: ? 134 ?QRS: ?-67 QRSD: ? 160 [...] Note Brayan Cuenca MD - 02/28/2016 [facility] Test Date: 2016-02-27 Pat Name: NABIL IGLESIAS Department: [facility] Room: WD1333 Gender: M Plater Barrel: [id number] : 1940 Requested By: MARCIA Boo Order Number: [id number] Reading MD: BRAYAN CUENCA MD Measurements Intervals Dexter Rate: 69 P: 147 SC: 134 QRS: -67 QRSD: 160 T: -59 [...] Reason: Other - Comment: pt already took PIPE ROLLER, takes other meds at HS) 921 (Given [...] Reason: Other - Comment: pt already took PIPE ROLLER, takes other meds at HS)2100 (Given - Provider: Mady Bruno RN) spironolactone (ALDACTONE) tablet 12.5 mg 12.5 mg, oral, DAILY, First dose on Thu02/27/16 at 1245, Until Discontinued, Routine 1306 (Not Given - Provider: Nneka Stuart RN - Reason: Other - Comment: pt already took PIPE ROLLER, takes other meds at HS)2102 (Given - Provider: Mady Bruno RN) tamsulosin (FLOMAX) capsule 0.4 mg 0.4 mg, oral, DAILY, First dose on Thu02/27/16 at 1245, Until Discontinued, Routine 1306 (Not Given - Provider: Nneka Stuart RN - Reason: Other - Comment: pt already took PIPE ROLLER, takes other meds at HS) 921 (Given - Provider: Sydnee Gallagher RN) PRN Medication Order 02/26/2016 02/27/2016 02/28/2016 acetaminophen (TYLENOL) tablet 650 mg 650 mg, oral, EVERY 4 HOURS PRN, Starting on Thu02/27/16 at 1550, Until Grisel 02/28/16 at 1540, Pain, Routine 1858 (Given - Provider: oRnna Stuart, JADON) bacitracin injection (COMPLETED) topical, PRN, [...] Provider: Reina Onofre RN)1008 (Given - Provider: Reian Onofre RN)1048 (Given - Provider: Reina Onofre [...] 02/02 documented in this encounter Care Teams Pipeline Systems Operator Relationship Specialty Start Date End Date Clem Olvera MD [address] [place] [address] PCP - General 12/18/15 documented as of this encounter
--- OUTSIDE RECORDS SUMMARY | 2024-02-23 08:18 | XMS_ITS | Encounter Summary ---
[place] [address] Care Team Providers Care Transportation Engineer Name Role Phone Donny Cooper MD Primary Care Provider [phone] Encounter Details Date Type Department Care Team (Latest Contact Info) Description 04/08/2022 10:00 AM EST - 04/08/2022 11:59 PM [facility] Hospital Encounter Non-Invasive [place] [address] Discharge Disposition: Home Social History Tobacco Use [...] AM EST Hospital Encounter Non-Invasive [place] [address] Arrived documented as of [...] on filedocumented in this encounter Care Teams Transportation Engineer Relationship Specialty Start Date End Date Donny Cooper MD [address] [place] [address] PCP - General Family Medicine 02/25/19 documented as of this encounter
--- OUTSIDE RECORDS SUMMARY | 2024-02-23 08:18 | XMS_ITS | Encounter Summary ---
Author Organization [facility] Address [address] [place] [address] Care Team Providers Care Production Mechanic Name Role Phone Clem Olvera MD Primary Care Provider [phone] Reason for Referral * Cardiology (3 - 10 Business Days) - Closed Specialty Diagnoses / Procedures [facility] Referred To Contact Diagnoses ICD (implantable cardioverter-defibrillator) battery depletion Pacemaker lead failure, initial encounter 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 Procedures IMPLANTABLE CARDIAC DEFIBRILLATOR PROCEDURE Navdeep Hurd MD [address] [place], [place] [address] [address] [place] [address] Referral ID Status Reason Start Date Expiration Date Visits Re quested Visits Authorized [id number] Closed 02/13/2016 1 1 Encounter Details Date Type Department Care Team (Latest Contact Info) Description 02/13/2016 Pre-Procedure Orders Encounter [facility] [address] [place], [place] [address] Navdeep Hurd MD [address] [facility] [address] [place] [address] ICD (implantable cardioverter-defibril lator) battery [...] 8 EDT Narrative 02/27/2016 15:17 EDT *Cardiology* [address] [place] [address] Lead Revision (Report amended ) Patient: Nabil Iglesias ?Study Date: ?02/27/2016 ? Accession #: ? [id number] : ? 1940 Referring: Clem Olvera Attending: [...] wire a Nick MENDOZAW 6F ([facility]) 6 mm-40 mm balloon dilation still could [...] Venograms were performed in the MOORE and FRISIAN projections and a suitable mid-lateral LV branch [...] fascia. The leads were connected to a FINANCIAL AID COUNSELOR-D device. Device and Lead detail in table [...] Implanted device: Medtronic - Viva Quad XT FINANCIAL AID COUNSELOR-D DF4 - Serial number: [id number] Explanted device: Medtronic - Viva XT FINANCIAL AID COUNSELOR-D DF4 - Serial number: [id number]. LEAD PARAMETERS + + + + + [...] + + + + + Serial number [id number] ? [id number] ?? [id number] ?? [id number] ? + + + + [...] Gulshan Drummond MD - 05/12/2016 *Cardiology* [address] [place] [address] Lead Revision (Report amended ) Patient: Nabil [...] therefore over an 0.35 glide wire [facility] ([facility] 6 mm-40 mm balloon dilation still could [...] Venograms were performed in the MOORE and FRISIAN projections and a suitable mid-lateral LV branch [...] fascia. The leads were connected to a FINANCIAL AID COUNSELOR-D device. Device and Lead detail in table [...] Implanted device: Medtronic - Viva Quad XT FINANCIAL AID COUNSELOR-D DF4 - Serial number: [id number] Explanted device: Medtronic - Viva XT FINANCIAL AID COUNSELOR-D DF4 - Serial number: [id number]. LEAD PARAMETERS + + + + + + Lead # 1 2 3 4 + + + + + + Chamber RA RV LV LV + + + + + + Date 07/19/2002 07/18/2013 02/27/2016 07/18/2013 implanted + + + + + + Model St. Esa Medtronic Medtronic Enpath information 5838 [id number] Attain Epicardial Performa 4298 + + + + + + Serial number [id number] + + + + + + [...] situ documented in this encounter Care Teams Production Mechanic Relationship Specialty Start Date End Date Clem Olvera MD [address] [place] [address] PCP - General 12/18/15 documented as of this encounter
--- OUTSIDE RECORDS SUMMARY | 2024-02-23 08:18 | XMS_ITS | Encounter Summary ---
Author Organization [facility] [place] [address] Care Team Providers Care Cook Helper Pastry Name Role Phone Donny Cooper MD Primary Care Provider [phone] Encounter Details Date Type Department Care Team (Latest Contact Info) Description 06/13/2020 12:35 PM EST - 06/13/2020 11:59 PM EST Hospital Encounter Non-[place]vasive [place] [address] Alber Seals MD [facility] [address] Cardiomyopathy, primary Discharge Disposition: Home Social History [...] AM EST Hospital Encounter Non-Invasive [place] [address] Arrived documented as of this encounter Procedures Procedure Name Priority Date/Time Associated Diagnosis Comments ICD INTERROGATION 3 MONTH Routine 06/13/2020 12:36 PM EST Cardiomyopathy, primary documented in this encounter Results * ICD INTERROGATION 3 MONTH (06/13/2020 12:36 PM EST) Anatomical Region Laterality Modality Other Narrative 06/14/2020 10:38 AM EST Cardiac Device Remote Monitoring Report Summary Medtronic Ulule 06/14/20 Device: HUMAN RESOURCES SUPPORT SPECIALIST-D Model: VIVA QUAD Battery: 2.96 v, estimated longevity 3 years, 11 months Pacing percentage: 78% ventricular paced Events: The presenting rhythm is atrial paced with biventricular pacing and frequent ventricular premature contractions No significant arrhythmias Impression Normal device function; suboptimal HUMAN RESOURCES SUPPORT SPECIALIST pacing likely secondary to frequent PVCs. Should consider in clinic follow-up for further evaluation Follow Up As per schedule - in-clinic and remote ALBER SEALS MD Alber Seals MD IMPLANTABLE CARDIAC DEVICE documented in this encounter Visit Diagnoses Diagnosis Cardiomyopathy, primary Other primary cardiomyopathies documented in this encounter Care Teams Cook Helper Pastry Relationship Specialty Start Date End Date Donny Cooper MD [address] [place] [address] PCP - General Family Medicine 02/25/19 documented as of this encounter
--- OUTSIDE RECORDS SUMMARY | 2024-02-23 08:18 | XMS_ITS | Encounter Summary ---
Author Organization [facility] Address [address] [place] [address] Care Team Providers Care Technical Artist Name Role Phone Clem Olvera MD Primary Care Provider [phone] Encounter Details Date Type Department Care Team (Latest Contact Info) Description 12/20/2015 10:52 EDT - 12/20/2015 23:52 EDT Hospital Encounter [facility] Cardiovascular Unit [address] [place] [address] Navdeep Hurd MD [address] [place] [address] [address] Discharge Disposition: Home or Self [...] no need to beNPO or have a van driver. However, his will be accompanying him. They are driving someone to the airport [place] 1000 and then will come here and check-in around 1145. He agrees to have a shower. documented in this encounter Procedure Notes * Fantasma Dhillon MD - 12/20/2015 1356 EDT IR Brief Procedure Note Attending: Leo Legal Researcher: Alejo Pre-op Dx: Arrhythmia, need for pacemaker [...] 12/19 documented in this encounter Care Teams Technical Artist Relationship Specialty Start Date End Date Clem Olvera MD [address] [place] [address] PCP - General 12/18/15 documented as of this encounter
--- OUTSIDE RECORDS SUMMARY | 2024-02-23 08:18 | XMS_ITS | Encounter Summary ---
Author Organization [facility] Address [address] [place] [address] Care Team Providers Care Office Machines Sales Representative Name Role Phone Unavailable Primary Care Provider Unavailabl e Encounter Details Date Type Department Care Team (Late st Contact Info) Description 05/06/2001 Results Only [facility] - Maple conversion [address] [place] [address] Hernandez Partida MD [address] [place] [phone] Social History Tobacco Use Types Packs/Day Years [...] entirely in cassette (B). ??(Naty Caal)/[facility] End of Report [facility] 05/06/2001 05/07/2001 9:2 5 EST Hernandez Partida MD PATHOLOGY ORDERABLES [facility] [address] [place] [address] documented in this encounter Visit Diagnoses Not on filedocumented in this encounter
--- OUTSIDE RECORDS SUMMARY | 2024-02-23 08:18 | XMS_ITS | Encounter Summary ---
[place] [address] Care Team Providers Care Loans Consultant Name Role Phone Donny Cooper MD Primary Care Provider [phone] Encounter Details Date Type Department Care Team (Latest Contact Info) Description 04/03/2023 10:00 AM EST - 04/03/2023 11:59 PM [facility] Hospital Encounter Non-Invasive [place] [address] Discharge Disposition: Home Social History Tobacco Use [...] Info) Description 05/02/2024 10:00 AM [facility] Hospital Encounter Non-Invasive [place] [address] Arrived documented as of this [...] on filedocumented in this encounter Care Teams Loans Consultant Relationship Specialty Start Date End Date Donny Cooper MD [address] [place] [address] PCP - General Family Medicine 02/25/19 documented as of this encounter
--- OUTSIDE RECORDS SUMMARY | 2024-02-23 08:18 | XMS_ITS | Clinical Summary ---
Author Organization [facility] [place] [address] Care Team Providers Care Research Associate Molecular Biology Name Role Phone Donny Cooper MD Primary Care Provider [phone] Allergies No known active allergies Medications Medication [...] PM EDT Hospital Encounter Non-[place]vasive [place] [address] Discharge Disposition: Home 01/05/2024 Telephone Cardiology at [address] [address] Kanika Shell 12/28/2023 Notes Only Cardiology at [address] [address] Kanika Shell from Last 3 Months Immunizations [...] AM EST Hospital Encounter Non-[place] [address] Arrived Health Maintenance Due Date Last Done Comments Tetanus/Diphtheria/Pertussis Vaccines (1 - Tdap) 08/19/1959 Zoster vaccine (1 of 2) 1990 Advance Directive 08/19/1995 Pneumoccocal Vaccine: 65+ (2 of 2 - PCV) 05/04/2009 05/04/2008 Covid-19 Vaccine (1 - 2022- season) 2024 Influenza (Flu) vaccine (1 o f 1 - Influenza standard series) 01/03/2024 02/01/2010, 03/06/2006, 02/24/2005 Medical Devices Implanted Type Area Supervisor Records Change Device Identifier Shelf Expiration Date Model / Serial / Lot Mdt : [id number] : [id number] Implanted: (Quantity not on file) Cardiac Resynchronization Therapy - Defibrillator Chest Medtronic - [id number] / [id number] / Care Teams Research Associate Molecular Biology Relationship Specialty Start Date End Date Donny Cooper MD [address] [place] [address] PCP - General Family Medicine 02/25/19
--- OUTSIDE RECORDS SUMMARY | 2024-02-23 08:18 | XMS_ITS | Encounter Summary ---
[place] [address] Care Team Providers Care Crm Architect Name Role Phone Donny Cooper MD Primary Care Provider [phone] Encounter Details Date Type Department Care Team (Latest Contact Info) Description 07/07/2022 10:00 AM EST - 07/07/2022 11:59 PM EST Hospital Encounter Non-Invasive [place] [address] Discharge Disposition: Home Social History Tobacco Use [...] AM EST Hospital Encounter Non-Invasive [place] [address] Arrived documented as of this [...] on filedocumented in this encounter Care Teams Crm Architect Relationship Specialty Start Date End Date Donny Cooper MD [address] [place] [address] PCP - General Family Medicine 02/25/19 documented as of this encounter
--- OUTSIDE RECORDS SUMMARY | 2024-02-23 08:18 | XMS_ITS | Encounter Summary ---
[place] [address] Care Team Providers Care Human Resources Assistant Manager Name Role Phone Donny Cooper MD Primary Care Provider [phone] Encounter Details Date Type Department Care Team (Latest Contact Info) Description 11/04/2023 10:00 AM EDT - 11/04/2023 11:59 PM EDT Hospital Encounter Non[place] [address] Discharge Disposition: Home Social History Tobacco Use [...] st Contact Info) Description 05/02/2024 10:00 AM [facility] Hospital Encounter Non[place] [address] Arrived documented as of this [...] in this encounter Care Teams Human Resources Assistant Manager Relationship Specialty Start Date End Date Donny Cooper MD [address] [place] [address] PCP - General Family Medicine 02/25/19 documented as of this encounter
--- OUTSIDE RECORDS SUMMARY | 2024-02-23 08:18 | XMS_ITS | Encounter Summary ---
Author Organization [facility] Address [address] [place] [address] Care Team Providers Care Retort Forker Name Role Phone Unavailable Primary Care Provider Unavailabl e Encounter Details Date Type Department Care Team (Late st Contact Info) Description 12/02/2012 Results Only [facility] Laboratory Services - [facility] ([facility]) [address] [place] [address] [id number] Satinder Edwards MD [address] [place] [address] Social History Tobacco Use Types Packs/Day Years [...] ? NABIL IGLESIAS ? Accession #: ? [id number] ? : ? 1940 (Age: 72) ??M [...] Co de Phone Number [facility] B[facility] [address] [place] [address] documented in this encounter Visit Diagnoses Not on filedocumented in this encounter
--- OUTSIDE RECORDS SUMMARY | 2024-02-23 08:18 | XMS_ITS | Encounter Summary ---
[place] [address] Care Team Providers Care Solaris Administrator Name Role Phone Donny Cooper MD Primary Care Provider [phone] Encounter Details Date Type Department Care Team (Latest Contact Info) Description 10/05/2022 10:00 AM EDT - 10/05/2022 11:59 PM EDT Hospital Encounter [place] [address] Discharge Disposition: Home Social History Tobacco Use [...] st Contact Info) Description 05/02/2024 10:00 AM [facility] Hospital Encounter [place] [address] Arrived documented as of this [...] on filedocumented in this encounter Care Teams Solaris Administrator Relationship Specialty Start Date End Date Donny Cooper MD [address] [place] [address] PCP - General Family Medicine 02/25/19 documented as of this encounter
--- OUTSIDE RECORDS SUMMARY | 2024-02-23 08:18 | XMS_ITS | Encounter Summary ---
Author Organization [facility] Address [address] [place] [address] Care Team Providers Care Sharepoint Application Architect Name Role Phone Clem Olvera MD Primary Care Provider [phone] Reason for Visit * Reason Onset Date Comments Appointment Related 10/23/2016 Check for fo llow up of pacer Encounter Details Date Type Department Care Team ([facility] Contact Info) Description 10/23/2016 Telephone [facility] Cardiology - [address] [place] [address] Pacemaker, Pace Appointment Related (Check [...] that Nabil had his pacemaker checked in [place] where they are for the winter. They have some back and are being followed by Dr. Hurd at [facility]. documented in this encounter Plan of Treatment Not on file documented as of this encounter Visit Diagnoses Not on filedocumented in this encounter Care Teams Sharepoint Application Architect Relationship Specialty Start Date End Date Clem Olvera MD [address] [place] [address] PCP - General 12/18/15 documented as of this encounter
--- OUTSIDE RECORDS SUMMARY | 2024-02-23 08:18 | XMS_ITS | Encounter Summary ---
[place] [address] Care Team Providers Care Pigment Making Supervisor Name Role Phone Donny Cooper MD Primary Care Provider [phone] Encounter Details Date Type Department Care Team (Latest Contact Info) Description 08/06/2023 10:00 AM EDT - 08/06/2023 11:59 PM EDT Hospital Encounter [place] [address] Discharge Disposition: Home Social History Tobacco Use [...] [facility] Encounter [place] [address] Arrived documented as of this encounter Visit Diagnoses Not on filedocumented in this encounter Care Teams Pigment Making Supervisor Relationship Specialty Start Date End Date Donny Cooper MD [address] [place] [address] PCP - General Family Medicine 02/25/19 documented as of this encounter
--- OUTSIDE RECORDS SUMMARY | 2024-02-23 08:18 | XMS_ITS | Encounter Summary ---
Author Organization [facility] [place] [address] Care Team Providers Care Protective Service Specialist Name Role Phone Donny Cooper MD Primary Care Provider [phone] Encounter Details Date Type Department Care Team (Latest Contact Info) Description 12/18/2020 11:57 AM EDT - 12/18/2020 11:59 PM EDT Hospital Encounter [place] [address] Maged Arguelles MD [facility] [address] Cardiomyopathy, primary Discharge Disposition: Home Social History [...] AM EST Hospital Encounter Non-[place] [address] Arrived documented as of this encounter Procedures Procedure Name Priority Date/Time Associated Diagnosis Comments ICD INTERROGATION 3 MONTH Routine 12/18/2020 12:00 PM EDT Cardiomyopathy, primary documented in this encounter Results * ICD INTERROGATION 3 MONTH (12/18/2020 12:00 PM EDT) Anatomical Region Laterality Modality Other Narrative 12/23/2020 11:08 PM EDT MDT DATA EXAMINATION CLERK-D remote reviewed. Normal device function. Inadequate DATA EXAMINATION CLERK at 80%. Maged Arguelles MD [facility] Cardiac Electrophysiology 12/23/2020 11:06 PM Maged Arguelles MD IMPLANTABLE CARDIAC DEVICE documented in this encounter Visit Diagnoses Diagnosis Cardiomyopathy, primary Other primary cardiomyopathies documented in this encounter Care Teams Protective Service Specialist Relationship Specialty Start Date End Date Donny Cooper MD [address] [facility] [address] [place] [address] PCP - General Family Medicine 02/25/19 documented as of this encounter
--- OUTSIDE RECORDS SUMMARY | 2024-02-23 08:18 | XMS_ITS | Encounter Summary ---
[place] [address] Care Team Providers Care Snake Charmer Name Role Phone Donny Cooper MD Primary Care Provider [phone] Encounter Details Date Type Department Care Team (Late st Contact Info) Description 01/05/2024 Telephone Cardiology at [address] [address] Kanika Shell Social History Tobacco [...] AM EST Hospital Encounter Non-Invasive [place] [address] Arrived documented as of this encounter Visit Diagnoses Not on filedocumented in this encounter Care Teams Snake Charmer Relationship Specialty Start Date End Date Donny Cooper MD [address] [place] [address] PCP - General Family Medicine 02/25/19 documented as of this encounter
--- OUTSIDE RECORDS SUMMARY | 2024-02-23 08:18 | XMS_ITS | Encounter Summary ---
Author Organization [facility] Address [address] [place] [address] Care Team Providers Care Audit Clerk Name Role Phone Clem Olvera MD Primary Care Provider [phone] Reason for Visit * Reason Onset Date Comments Other 04/04/2019 Transfer request for Pacer Care at [facility] Encounter Details Date Type Department Care Team (Late st Contact Info) Description 04/04/[address] [facility] Cardiology Clinic [address] [place] [address] Giselle Hill, BREW HOUSE SUPERVISOR Other (Transfer request for Pacer Care [...] 04/04/2019 1503 EST I went into the [employer] Website and [facility] [...] on filedocumented in this encounter Care Teams Audit Clerk Relationship Specialty Start Date End Date Clem Olvera MD [address] [place] [address] PCP - General 12/18/15 documented as of this encounter
--- OUTSIDE RECORDS SUMMARY | 2024-02-23 08:18 | XMS_ITS | Encounter Summary ---
[place] [address] Care Team Providers Care Tool Profiling Machine Set Up Operator Name Role Phone Donny Cooper MD Primary Care Provider [phone] Encounter Details Date Type Department Care Team (Latest Contact Info) Description 01/03/2023 10:00 AM EDT - 01/03/2023 11:59 PM EDT Hospital Encounter [place] [address] Discharge Disposition: Home Social History Tobacco Use [...] Info) Description 05/02/2024 10:00 AM [facility] Hospital Encounter [place] [address] Arrived documented as of this [...] filedocumented in this encounter Care Teams Tool Profiling Machine Set Up Operator Relationship Specialty Start Date End Date Donny Cooper MD [address] [place] [address] PCP - General Family Medicine 02/25/19 documented as of this encounter
--- OUTSIDE RECORDS SUMMARY | 2024-02-23 08:19 | XMS_ITS | Encounter Summary ---
[place] [address] Care Team Providers Care American Indian Policy Specialist Name Role Phone Donny Cooper MD Primary Care Provider [phone] Encounter Details Date Type Department Care Team (Late st Contact Info) Description 03/17/2019 Telephone Cardiology at [address] [address] Sheri Quinn LNA Social History [...] 11:46 AM EST Medication list reviewed with [facility] list. Please review with patient at next clinic visit. documented in this encounter Plan of Treatment Upcoming Encounters Date Type Department Care Team (Late st Contact Info) Description 05/02/2024 10:00 AM EST Hospital Encounter [place] [address] Arrived documented as of this encounter Visit Diagnoses Not on filedocumented in this encounter Care Teams American Indian Policy Specialist Relationship Specialty Start Date End Date Donny Cooper MD [address] [place] [address] PCP - General Family Medicine 02/25/19 documented as of this encounter
--- OUTSIDE RECORDS SUMMARY | 2024-02-23 08:19 | XMS_ITS | Encounter Summary ---
Author Organization [facility] [place] [address] Care Team Providers Care Civil Engineer Land Development Name Role Phone Marques Martinez MD Primary Care Provider [phone] Encounter Details Date Type Department Care Team (Late st Contact Info) Description 10/09/2010 11:35 AM EDT - 10/09/2010 11:59 PM EDT Hospital Encounter XRay at [address] [place] [address] Social History Tobacco Use Types [...] AM EST Hospital Encounter Non-Invasive Cardiology Lab [facility] [place] [address] Arrived documented as of this encounter Visit Diagnoses Not on filedocumented in this encounter Care Teams Civil Engineer Land Development Relationship Specialty Start Date End Date Marques Martinez MD [address] [place] [address] PCP - General 04/01/10 04/08/11 documented as of this encounter
--- OUTSIDE RECORDS SUMMARY | 2024-02-23 08:19 | XMS_ITS | Encounter Summary ---
[place] [address] Care Team Providers Care Wildland Fire Operations Specialist Name Role Phone Marques Martinez MD Primary Care Provider [phone] Encounter Details Date Type Department Care Team (Late st Contact Info) Description 06/12/2010 2:00 PM EST Procedure visit [place] [address] Social History Tobacco Use Types Packs/Day Years [...] AM EST Hospital Encounter Non-[place]vasive [place] [address] Arrived documented as of this encounter Visit Diagnoses Not on filedocumented in this encounter Care Teams Wildland Fire Operations Specialist Relationship Specialty Start Date End Date Marques Martinez MD [address] [place] [address] PCP - General 04/01/10 04/08/11 documented as of this encounter
--- OUTSIDE RECORDS SUMMARY | 2024-02-23 08:19 | XMS_ITS | Encounter Summary ---
Author Organization [facility] [place] [address] Care Team Providers Care Settlement Technician Name Role Phone Donny Cooper MD Primary Care Provider [phone] Encounter Details Date Type Department Care Team (Late st Contact Info) Description 07/26/2019 Notes Only Cardiology at [address] [address] Maged Arguelles MD [facility] [place] [address] Social History Tobacco Use Types Packs/Day Years [...] his Medtronic biventricular ICD is reviewed. Suboptimal BUTTONHOLE TACKER at 84%. Normal device function. Awaiting Holter to assess PVC burden. Maged Arguelles MD S Cardiac Electrophysiology 07/26/2019 9:04 AM documented in this encounter Plan of Treatment Upcoming Encounters Date Type Department Care Team (Late st Contact Info) Description 05/02/2024 10:00 AM EST Hospital Encounter Non-Invasive [place] [address] Arrived documented as of this encounter Visit Diagnoses Not on filedocumented in this encounter Care Teams Settlement Technician Relationship Specialty Start Date End Date Donny Cooper MD [address] [place] [address] PCP - General Family Medicine 02/25/19 documented as of this encounter
--- OUTSIDE RECORDS SUMMARY | 2024-02-23 08:19 | XMS_ITS | Encounter Summary ---
Author Organization [facility] [place] [address] Care Team Providers Care Veneer Jointer Offbearer Name Role Phone Clem Olvera MD Primary Care Provider [phone] Reason for Visit * Reason Comments Follow Up Fracture SP PATELLA FX DO12/12 DOI 03/30/10 Encounter Details Date Type Department Care Team (Late st Contact Info) Description 04/09/2011 1:30 PM EST Office [place] [address] Jairon Gustafson MD [facility] [place] [address] Jose Francisco Bee PA [facility] [place] [address] Patella fracture (Primary Dx) Discharge Disposition: Home [...] AM EST Hospital Encounter Non-Invasive [place] [address] Arrived documented as of this encounter Visit Diagnoses Diagnosis Patella fracture- Primary Closed fracture of patella documented in this encounter Care Teams Veneer Jointer Offbearer Relationship Specialty Start Date End Date Clem Olvera MD [address] [place] [address] PCP - General 04/09/11 02/24/19 documented as of this encounter
--- OUTSIDE RECORDS SUMMARY | 2024-02-23 08:19 | XMS_ITS | Encounter Summary ---
Author Organization [facility] [place] [address] Care Team Providers Care Print Operator Name Role Phone Marques Martinez MD Primary Care Provider [phone] Reason for Visit * Reason Comments Follow Up Fracture PATELLA FX DOI 03/23 10 Encounter Details Date Type Department Care Team (Late st Contact Info) Description 10/09/2010 12:40 PM EDT Office [place] [address] Jairon Gustafson MD [facility] [place] [address] Jose Francisco Bee PA [facility] [place] [address] Quadriceps tendon rupture (Primary Dx) Discharge Disposition: [...] [facility] Hospital Encounter Non-[place] [address] Arrived documented as of this encounter Visit Diagnoses Diagnosis Quadriceps tendon rupture- Primary Sprain and strain of other specified sites of knee and leg documented in this encounter Care Teams Print Operator Relationship Specialty Start Date End Date Marques Martinez MD [address] [place] [address] PCP - General 04/01/10 04/08/11 documented as of this encounter
--- OUTSIDE RECORDS SUMMARY | 2024-02-23 08:19 | XMS_ITS | Encounter Summary ---
Author Organization [facility] [place] [address] Care Team Providers Care Tank Truck Operator Name Role Phone Marques Martinez MD Primary Care Provider Encounter Details Date Type Department Care Team (Late st Contact Info) Description 09/11/2010 [place] [phone] Jairon Fenton MD [facility] [place] [address] Fracture of patella, left, closed (Primary Dx) [...] [place] [facility] Encounter [place] [address] Arrived documented as of this encounter Visit Diagnoses Diagnosis Fracture of patella, left, closed- Primary Closed fracture of patella documented in this encounter Care Teams Tank Truck Operator Relationship Specialty Start Date End Date Marques Martinez MD [address] [place] [address] PCP - General 04/01/10 04/08/11 documented as of this encounter
--- OUTSIDE RECORDS SUMMARY | 2024-02-23 08:19 | XMS_ITS | Encounter Summary ---
Author Organization [facility] [place] [address] Care Team Providers Care Plywood Layup Line Core Layer Name Role Phone Marques Martinez MD Primary Care Provider [phone] Encounter Details Date Type Department Care Team (Late st Contact Info) Description 06/12/2010 2:10 PM EST Office [place] [phone] Jairon Fenton MD [facility] DR [place] [address] Discharge Disposition: Home Social History Tobacco Use [...] AM EST Hospital Encounter [place] [address] Arrived documented as of this encounter Visit Diagnoses Not on filedocumented in this encounter Care Teams Plywood Layup Line Core Layer Relationship Specialty Start Date End Date Marques Martinez MD [address] [place] [address] PCP - General 04/01/10 04/08/11 documented as of this encounter
--- OUTSIDE RECORDS SUMMARY | 2024-02-23 08:19 | XMS_ITS | Encounter Summary ---
Author Organization [facility] [place] [address] Care Team Providers Care Gear Inspector Name Role Phone Marques Martinez MD Primary Care Provider [phone] Encounter Details Date Type Department Care Team (Late st Contact Info) Description 03/30/2010 [place] [address] Javier Barajas MD [facility] [address] [place] [address] Social History Tobacco Use Types Packs/Day Years [...] AM EST Hospital Encounter Non[place] [address] Arrived documented as of this encounter Procedures [...] EST Jairon Fenton MD [facility]ABLES [facility] * (ABNORMAL) CREATININE, SERUM (04/01/2010 6:09 [...] MD CHEMISTRY ORDERABLES Performing Organization Address [facility] de Phone Number CERNER CHRISTOSENNIUM * BUN (04/01/2010 6:09 AM EST) Blood Urea Nitrogen 12 10 - 20 mg/dL [facility]ER MILLENNIUM Blood specimen (specimen) 04/01/2010 6:09 AM EST 04/01/2010 6:09 AM EST Jairon Fenton MD CHEMISTRY ORDERABLES Performing Organization Address [facility] de Phone Number CERNER CHRISTOSENNIUM * [...] HEMATOLOGY ORDERABLE S Performing Organization Address [facility] de Phone Number CERIVIS MILLENNIUM * HEPATIC [...] MD CHEMISTRY ORDERABLES Performing Organization Address [facility] Phone Number CERIVIS MILLENNIUM * [...] MD CHEMISTRY ORDERABLES Performing Organization Address [facility] Co de Phone Number CERIVIS MILLENNIUM * CREATININE, SERUM (03/30/2010 6:05 PM EST) Creatinine 0.87 0.80 - 1.50 mg/dL [facility] Est Glomerular Filtration Rate >60 >=60 [facility] SEGOVIA Comment: The National Kidney Disease Education [...] Urea Nitrogen 18 10 - 20 mg/dL [facility] Blood specimen (specimen) 03/30/2010 6:05 PM EST 03/30/2010 6:13 PM EST Jairon Fenton MD CHEMISTRY ORDERABLES Performing Organization Address [facility] de Phone Number DEJA MOSQUEDAIUM * APTT (03/30/2010 6:05 PM EST) Partial Thromboplastin Time 26 25 - 37 sec CERNER MILLENNIUM Comment: Recommended therapeutic PTT range for full dose unfractionated heparin is 80-114 seconds. Blood specimen (specimen) 03/30/2010 6:05 PM EST 03/30/2010 6:14 PM EST Jairon Fenton MD HEMATOLOGY ORDERABLE S Performing Organization Address [facility] Phone Number DEJA SEGOVIA * PROTIME-INR (03/30/2010 6:05 PM EST) Prothrombin Time 14.2 12.3 - 14.7 sec [facility] Comment: [facility] Transfusion Committee Guidelines: INR less than 2.0, PTT less than OR equal to 43.5 seconds, or Fibrinogen greater than or equal to 100 mg/dl indicate adequate procoagulant activity for hemostasis in patients without underlying bleeding disorders. International Normalization Ratio 1.1 0.9 - 1.1 [facility] Blood specimen (specimen) 03/30/2010 6:05 PM EST 03/30/2010 6:14 PM EST Jairon Fenton MD HEMATOLOGY ORDERABLE S Performing Organization Address [facility] de Phone Number DEJA SEGOVIA * [...] Standard Deviation 44.2 35.0 - 46.0 fL [facility] R[facility] coefficient of variation 13.1 10.9 - 14.4 % [facility] Mean Platelet Volume 10.6 9.0 - 12.0 fL [facility] Blood specimen (specimen) 03/30/2010 6:05 PM EST 03/30/2010 6:13 PM EST Jairon Fenton MD HEMATOLOGY ORDERABLE S Performing Organization Address City/[facility] Co de Phone Number [facility] * REFLEX LAB-ANTIBODY SCREEN (03/30/2010 3:17 PM EST) [facility] Ab Screen Interp Negative [facility] Expires at [phone] on: [id number] [facility] Blood specimen (specimen) 03/30/2010 3:17 PM EST 03/30/2010 3:17 PM EST Javier Barajas MD BLOOD BANK LAB ORDER PRECIOUS Performing Organization Address [facility] Co de Phone Number [facility] * REFLEX LAB-ABO/RH (03/30/2010 3:17 PM EST) [facility] ABORH Type A Pos [facility] Blood specimen (specimen) 03/30/2010 3:17 PM EST 03/30/2010 3:17 PM EST Javier Barajas MD BLOOD BANK LAB ORDER PRECIOUS Performing Organization Address [facility] Co de Phone Number [facility] * ELECTROLYTE PANEL (03/30/2010 2:50 PM EST) [facility] Sodium 135 135 - 145 mmol/L [facility] Potassium 4.3 3.5 - 5.0 mmol/L [facility] Comment: Please note: ??Patients with WBC [...] 2:50 PM EST 03/30/2010 3:05 PM EST Jaiver Barajas MD CHEMISTRY ORDERABLES [facility] * CREATININE, SERUM (03/30/2010 2:50 PM [...] MD CHEMISTRY ORDERABLES Performing Organization Address [facility] Phone Number [facility] * BUN (03/30/2010 2:50 PM EST) Blood Urea Nitrogen 18 10 - 20 mg/dL [facility] Blood specimen (specimen) 03/30/2010 2:50 PM EST 03/30/2010 3:05 PM EST Javier Barajas MD CHEMISTRY ORDERABLES Performing Organization Address [facility] Phone Number [facility] * GLUCOSE, RANDOM (03/30/2010 2:50 PM EST) Glucose 95 <=199 mg/dL [facility] Comment:Diabetes: >=200 mg/d L plus symptoms Blood specimen (specimen) 03/30/2010 2:50 PM EST 03/30/2010 3:05 PM EST Javier Barajas MD CHEMISTRY ORDERABLES Performing Organization Address [facility] Phone Number [facility] * APTT (03/30/2010 2:50 PM EST) Partial Thromboplastin Time 25 25 - 37 sec [facility] Comment: Recommended therapeutic PTT range for full dose unfractionated heparin is 80-114 seconds. Blood specimen (specimen) 03/30/2010 2:50 PM EST 03/30/2010 3:06 PM EST Javier Barajas MD HEMATOLOGY ORDERABLE S Performing Organization Address [facility] Phone Number [facility] * PROTIME-INR (03/30/2010 2:50 PM EST) Prothrombin Time 14.1 12.3 - 14.7 sec [facility] Comment: [facility] Transfusion Committee Guidelines: INR less than [...] filedocumented in this encounter Care Teams Gear Inspector Relationship Specialty Start Date End Date Marques Martinez MD [address] [place] [address] PCP - General 04/01/10 04/08/11 documented as of this encounter
--- OUTSIDE RECORDS SUMMARY | 2024-02-23 08:19 | XMS_ITS | Encounter Summary ---
Author Organization Formerly [facility] [place] [address] Care Team Providers Care Finished Metal Repairer Name Role Phone Marques Martinez MD Primary Care Provider [phone] Encounter Details Date Type Department Care Team (Late st Contact Info) Description 05/01/2010 3:10 PM EST Office Visit [place] [phone] Jairon Fenton MD [facility] [place] [address] Discharge Disposition: Home Social History Tobacco Use [...] AM EST Hospital Encounter Non-Invasive [place] [address] Arrived documented as of this encounter Visit Diagnoses Not on filedocumented in this encounter Care Teams Finished Metal Repairer Relationship Specialty Start Date End Date Marques Martinez MD [address] [place] [address] PCP - General 04/01/10 04/08/11 documented as of this encounter
--- OUTSIDE RECORDS SUMMARY | 2024-02-23 08:19 | XMS_ITS | Encounter Summary ---
[place] [address] Care Team Providers Care Power Line Installer Name Role Phone Marques Martinez MD Primary Care Provider [phone] Encounter Details Date Type Department Care Team (Late st Contact Info) Description 05/01/2010 2:40 PM EST Procedure visit [place] [address] Social History Tobacco Use Types Packs/Day Years [...] AM EST Hospital Encounter Non-[place] [address] Arrived documented as of this encounter Visit Diagnoses Not on filedocumented in this encounter Care Teams Power Line Installer Relationship Specialty Start Date End Date Marques Martinez MD [address] [place] [address] PCP - General 04/01/10 04/08/11 documented as of this encounter
--- OUTSIDE RECORDS SUMMARY | 2024-02-23 08:19 | XMS_ITS | Encounter Summary ---
[place] [address] Care Team Providers Care Diplomatic Courier Name Role Phone Marques Martinez MD Primary Care Provider [phone] Encounter Details Date Type Department Care Team (Late st Contact Info) Description 10/03/2010 [place] [address] Marina Orosco, JADON Social History Tobacco Use Types Packs/Day Years Used Date Smoking Tobacco: Never Assessed Sex and Gender Information Value Date Recorded Sex Assigned at Not on file Gender Identity Not on file Sexual Orientation Not on file documented as of this encounter Plan of Treatment Upcoming Encounters Date Type Department Care Team (Late st Contact Info) Description 05/02/2024 10:00 AM [facility] Hospital Encounter Non-[place] [address] Arrived documented as of this encounter Visit Diagnoses Not on filedocumented in this encounter Care Teams Diplomatic Courier Relationship Specialty Start Date End Date Marques Martinez MD [address] [place] [address] PCP - General 04/01/10 04/08/11 documented as of this encounter
[2024-02-23 08:23] VITALS: BP 117/60; PULSE 70
--- OUTSIDE RECORDS SUMMARY | 2024-02-25 07:53 | XMS_ITS | Encounter Summary ---
Author Organization [facility] Address [address] [place] [address] Care Team Providers Care Preparation Room Worker Name Role Phone Clem Olvera MD Primary Care Provider Reason for Visit * Reason Onset Date Comments Other 04/04/2019 Transfer request for Pacer Care at [facility] Encounter Details Date Type Department Care Team (Late st Contact Info) Description 04/04/2019 Telephone [facility] Card[facility] Clinic [address] [place] [address] Giselle Hill, SEWER HAND Other (Transfer request for Pacer Care at [...] 04/04/2019 1503 EST I went into the [employer] and [facility] [...] on filedocumented in this encounter Care Teams Preparation Room Worker Relationship Specialty Start Date End Date Clem Olvera MD [address] [place] [address] PCP - General 12/18/15 documented as of this encounter
--- OUTSIDE RECORDS SUMMARY | 2024-02-25 07:53 | XMS_ITS | Referral Summary ---
Author Organization [facility] Address [address] [place] [address] Care Team Providers Care Physical Chemistry Teacher Name Role Phone Clem Olvera MD Primary Care Provider [phone] Allergies No known active allergies Medications Medication [...] Advance Directives For more information, please contact: [phone] * Full Code (Latest Code Status on File) Date Activated Date Inactivated Comments 02/27/2016 8:49 02/28/2016 15:40 Question Answer Comments Reason for decision includes: Full code consistent with overall plan of care Who participated in the discussion? Not Discusse d Care Teams Physical Chemistry Teacher Relationship Specialty Start Date End Date Clem Olvera MD [address] [place] [id number] PCP - General 12/18/15
--- OUTSIDE RECORDS SUMMARY | 2024-02-25 07:53 | XMS_ITS | Clinical Summary ---
Author Organization [facility] Address [address] [place] [address] Care Team Providers Care Bobbin Cleaner Name Role Phone Clem Olvera MD Primary Care Provider [phone] Allergies No known active allergies Medications Medication [...] PACEMAKER INSERTION 05/04/2002 - 05/03/20032013 second pacemaker [facility] Medical History Medical History Date Comments CAD [...] Advance Directives For more information, please contact: [phone] * Full Code (Latest Code Status on File) Date Activated Date Inactivated Comments 02/27/2016 8:49 02/28/2016 15:40 Question Answer Comments Reason for decision includes: Full code consistent with overall plan of care Who participated in the discussion? Not Discusse d Care Teams Bobbin Cleaner Relationship Specialty Start Date End Date Clem Olvera MD [address] [place] [address] PCP - General 12/18/15
--- OUTSIDE RECORDS SUMMARY | 2024-02-25 07:54 | XMS_ITS | Encounter Summary ---
[facility] [place] [address] Care Team Providers Care Baby Attendant Name Role Phone Marques Martinez MD Primary Care Provider Encounter Details Date Type Department Care Team (Late st Contact Info) Description 09/11/2010 Orders [place] [address] Jairon Fenton MD [facility] [place] [address] Fracture of patella, left, closed (Primary Dx) [...] [facility] Hospital Encounter [place] [address] Arrived documented as of this encounter Visit Diagnoses Diagnosis Fracture of patella, left, closed- Primary Closed fracture of patella documented in this encounter Care Teams Baby Attendant Relationship Specialty Start Date End Date Marques Martinez MD [address] [place] [address] PCP - General 04/01/10 04/08/11 documented as of this encounter
--- OUTSIDE RECORDS SUMMARY | 2024-02-25 07:54 | XMS_ITS | Encounter Summary ---
[place] [address] Care Team Providers Care News Agent Name Role Phone Donny Cooper MD Primary Care Provider [phone] Encounter Details Date Type Department Care Team (Latest Contact Info) Description 02/02/2024 10:00 AM EDT - 02/02/2024 11:59 PM EDT Hospital Encounter Non-[place]vasive [place] [address] Discharge Disposition: Home Social History Tobacco Use [...] [facility] Encounter Non-[place]vasive [place] [address] Arrived documented as of this encounter Visit Diagnoses Not on filedocumented in this encounter Care Teams News Agent Relationship Specialty Start Date End Date Donny Cooper MD [address] [place] [address] PCP - General Family Medicine 02/25/19 documented as of this encounter
--- OUTSIDE RECORDS SUMMARY | 2024-02-25 07:54 | XMS_ITS | Encounter Summary ---
Author Organization [facility] [place] [address] Care Team Providers Care Education Trainer Name Role Phone Donny Cooper MD Primary Care Provider [phone] Encounter Details Date Type Department Care Team (Latest Contact Info) Description 12/18/2020 11:57 AM EDT - 12/18/2020 11:59 PM EDT Hospital Encounter Non-Invasive [place] [address] Maged Arguelles MD [facility] [place] [address] Cardiomyopathy, primary Discharge Disposition: Home Social History [...] AM EST Hospital Encounter Non-Invasive [place] [address] Arrived documented as of this encounter Procedures Procedure Name Priority Date/Time Associated Diagnosis Comments ICD INTERROGATION 3 MONTH Routine 12/18/2020 12:00 PM EDT Cardiomyopathy, primary documented in this encounter Results * ICD INTERROGATION 3 MONTH (12/18/2020 12:00 PM EDT) Anatomical Region Laterality Modality Other Narrative 12/23/2020 11:08 PM EDT MDT RESEARCH NURSE PRACTITIONER-D remote reviewed. Normal device function. Inadequate RESEARCH NURSE PRACTITIONER at 80%. Maged Arguelles MD [facility] Cardiac Electrophysiology 12/23/2020 11:06 PM Maged Arguelles MD IMPLANTABLE CARDIAC DEVICE documented in this encounter Visit Diagnoses Diagnosis Cardiomyopathy, primary Other primary cardiomyopathies documented in this encounter Care Teams Education Trainer Relationship Specialty Start Date End Date Donny Cooper MD [address] [facility] [address] [place] [address] PCP - General Family Medicine 02/25/19 documented as of this encounter
--- OUTSIDE RECORDS SUMMARY | 2024-02-25 07:54 | XMS_ITS | Encounter Summary ---
[place] [address] Care Team Providers Care Canary Raiser Name Role Phone Donny Cooper MD Primary Care Provider [phone] Encounter Details Date Type Department Care Team (Latest Contact Info) Description 07/02/2023 10:00 AM EST - 07/02/2023 11:59 PM EST Hospital Encounter Non-Invasive [place] [address] Discharge Disposition: Home Social History Tobacco Use [...] [facility] Hospital Encounter Non-Invasive [place] [address] Arrived documented as of this encounter Visit Diagnoses Not on filedocumented in this encounter Care Teams Canary Raiser Relationship Specialty Start Date End Date Donny Cooper MD [address] [place] [address] PCP - General Family Medicine 02/25/19 documented as of this encounter
--- OUTSIDE RECORDS SUMMARY | 2024-02-25 07:54 | XMS_ITS | Encounter Summary ---
[place] [address] Care Team Providers Care Lithographed Plate Inspector Name Role Phone Donny Cooper MD Primary Care Provider [phone] Encounter Details Date Type Department Care Team (Latest Contact Info) Description 11/04/2023 10:00 AM EDT - 11/04/2023 11:59 PM EDT Hospital Encounter Non-[place] [address] Discharge Disposition: Home Social History Tobacco Use [...] [facility] Hospital Encounter Non-[place] [address] Arrived documented as of this [...] on filedocumented in this encounter Care Teams Lithographed Plate Inspector Relationship Specialty Start Date End Date Donny Cooper MD [address] [place] [address] PCP - General Family Medicine 02/25/19 documented as of this encounter
--- OUTSIDE RECORDS SUMMARY | 2024-02-25 07:54 | XMS_ITS | Encounter Summary ---
Author Organization [facility] Address [address] [place] [address] Care Team Providers Care Central Office Inspector Name Role Phone Clem Olvera MD Primary Care Provider [phone] Reason for Referral * Cardiology (3 - 10 Business Days) - Closed Specialty Diagnoses / Procedures [facility] Referred To Contact Diagnoses ICD (implantable cardioverter-defibrillator) battery depletion Pacemaker lead failure, initial encounter 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 Procedures IMPLANTABLE CARDIAC DEFIBRILLATOR PROCEDURE Navdeep Hurd MD [address] [place], [place] [address] [address] [place] [address] Referral ID Status Reason Start Date Expiration Date Visits Re quested Visits Authorized [id number] Closed 02/13/2016 1 1 Encounter Details Date Type Department Care Team (Latest Contact Info) Description 02/13/2016 Pre-Procedure Orders Encounter [facility] [address] [place], [place] [address] [facility] Hurd [facility] [address] [facility] [address] [place] [address] ICD (implantable cardioverter-defibril lator) battery [...] 8 EDT Narrative 02/27/2016 15:17 EDT *Cardiology* [address] [place] [id number] Lead Revision (Report amended ) Patient: Nabil Iglesias ?Study Date: ?02/27/2016 ? Accession #: ? [id number] : ? 1940 Referring: Clem Olvera Attending: [...] 0.35 glide wire a Nick MENDOZAW 6F ([facility]) 6 mm-40 mm balloon dilation [...] Venograms were performed in the MOORE and SURINAMESE projections and a suitable mid-lateral LV branch [...] fascia. The leads were connected to a COMMERCIAL TRAILER TRUCK DRIVER-D device. Device and Lead detail in table [...] Implanted device: Medtronic - Viva Quad XT COMMERCIAL TRAILER TRUCK DRIVER-D DF4 - Serial number: [id number] Explanted device: Medtronic - Viva XT COMMERCIAL TRAILER TRUCK DRIVER-D DF4 - Serial number: [id number]. LEAD PARAMETERS + + + + + [...] + + + + + Serial number [id number] ? [id number] ?? [id number] ?? [id number] ? + + + + [...] Gulshan Drummond MD - 05/12/2016 *Cardiology* [address] [place] [address] Lead Revision (Report amended ) Patient: Nabil [...] therefore over an 0.35 glide wire a [facility] 6F ([facility]) 6 mm-40 mm balloon dilation [...] Venograms were performed in the MOORE and SURINAMESE projections and a suitable mid-lateral LV branch [...] fascia. The leads were connected to a COMMERCIAL TRAILER TRUCK DRIVER-D device. Device and Lead detail in table [...] Implanted device: Medtronic - Viva Quad XT COMMERCIAL TRAILER TRUCK DRIVER-D DF4 - Serial number: [id number] Explanted device: Medtronic - Viva XT COMMERCIAL TRAILER TRUCK DRIVER-D DF4 - Serial number: [id number]. LEAD PARAMETERS + + + + + + Lead # 1 2 3 4 + + + + + + Chamber RA RV LV LV + + + + + + Date 07/19/2002 07/18/2013 02/27/2016 07/18/2013 implanted + + + + + + Model St. Esa Medtronic Medtronic Enpath information [id number] Attain Epicardial Performa 4298 + + + + + + Serial number [id number] + + + + + + [...] situ documented in this encounter Care Teams Central Office Inspector Relationship Specialty Start Date End Date Clem Olvera MD [address] [place] [address] PCP - General 12/18/15 documented as of this encounter
--- OUTSIDE RECORDS SUMMARY | 2024-02-25 07:54 | XMS_ITS | Encounter Summary ---
Author Organization [facility] Address [address] [place] [address] Care Team Providers Care Director Of Consumer Affairs Name Role Phone Unknown, Provider Primary Care Provider [phone] Clem Olvera MD Primary Care Provider [phone] Encounter Details Date Type Department Care Team (Late st Contact Info) Description 11/29/2015 Pre-Procedure Orders Encounter [facility] [address], [place] [id number] Navdeep Hurd MD [address] [place] [address] [address] Social History Tobacco Use Types [...] Patient: Nabil Streeter. Attending: Dr. Moran Scrrajinder Wedding Decorator: Dr. Fantasma Dhillon History/indication: The patient is [...] Patient: Nabil Streeter Attending: Dr. Dean Bailey Wedding Decorator: Dr. Fantasma Dhillon History/indication: The patient is [...] in this encounter Care Teams Director Of Consumer Affairs Relationship Specialty Start Date End Date Unknown, Provider, PCP - General 12/06/12 12/17/15 Clem Olvera MD [address] [place] [address] PCP - General 12/18/15 documented as of this encounter
--- OUTSIDE RECORDS SUMMARY | 2024-02-25 07:54 | XMS_ITS | Encounter Summary ---
[place] [address] Care Team Providers Care Paint Striping Machine Operator Name Role Phone Donny Cooper MD Primary Care Provider [phone] Encounter Details Date Type Department Care Team (Late st Contact Info) Description 06/14/2020 Telephone Cardiology at [address] [phone] Nhung Briggs Social History Tobacco Use Types [...] He would like to be seen at [facility]. Email sent to Brittaney Hernandez at [facility] asking her to reach out to pt to set up the appt with either Dr. Arguelles or LANG Albert. Nhung Allen Electrophysiology Scheduling [id number] option 2 documented in this encounter Plan of Treatment Upcoming Encounters Date Type Department Care Team (Late st Contact Info) Description 05/02/2024 10:00 AM EST Hospital Encounter Non[place] [address] Arrived documented as of this encounter Visit Diagnoses Not on filedocumented in this encounter Care Teams Paint Striping Machine Operator Relationship Specialty Start Date End Date Donny Cooper MD [address] [place] [address] PCP - General Family Medicine 02/25/19 documented as of this encounter
--- OUTSIDE RECORDS SUMMARY | 2024-02-25 07:54 | XMS_ITS | Encounter Summary ---
Author Organization [facility] [place] [address] Care Team Providers Care Exercise Equipment Specialist Name Role Phone Marques Martinez MD Primary Care Provider [phone] Encounter Details Date Type Department Care Team (Late st Contact Info) Description 05/01/2010 3:10 PM EST Office [place] [phone] Jiaron Fenton MD [facility] [place] [address] Discharge Disposition: Home Social History Tobacco Use [...] AM EST Hospital Encounter Non-Invasive [place] [address] Arrived documented as of this encounter Visit Diagnoses Not on filedocumented in this encounter Care Teams Exercise Equipment Specialist Relationship Specialty Start Date End Date Marques Martinez MD [address] [place] [address] PCP - General 04/01/10 04/08/11 documented as of this encounter
--- OUTSIDE RECORDS SUMMARY | 2024-02-25 07:54 | XMS_ITS | Encounter Summary ---
[place] [address] Care Team Providers Care Mailing Machine Helper Name Role Phone Donny Cooper MD Primary Care Provider [phone] Encounter Details Date Type Department Care Team [...] [facility] Hospital Encounter Non-Invasive [place] [address] Arrived documented as of this encounter Visit Diagnoses Not on filedocumented in this encounter Care Teams Mailing Machine Helper Relationship Specialty Start Date End Date Donny Cooper MD [address] [place] [address] PCP - General Family Medicine 02/25/19 documented as of this encounter
--- OUTSIDE RECORDS SUMMARY | 2024-02-25 07:54 | XMS_ITS | Encounter Summary ---
Author Organization [facility] [place] [address] Care Team Providers Care Division Sales Manager Name Role Phone Donny Cooper MD Primary Care Provider [phone] Encounter Details Date Type Department Care Team (Latest Contact Info) Description 06/13/2020 12:35 PM EST - 06/13/2020 11:59 PM EST Hospital Encounter [place] [address] Alber Seals MD [facility] [address] Cardiomyopathy, primary Discharge Disposition: Home Social History [...] AM EST Hospital Encounter [place] [address] Arrived documented as of this encounter Procedures Procedure Name Priority Date/Time Associated Diagnosis Comments ICD INTERROGATION 3 MONTH Routine 06/13/2020 12:36 PM EST Cardiomyopathy, primary documented in this encounter Results * ICD INTERROGATION 3 MONTH (06/13/2020 12:36 PM EST) Anatomical Region Laterality Modality Other Narrative 06/14/2020 10:38 AM EST Cardiac Device Remote Monitoring Report Summary Medtronic Invisible 06/14/20 Device: MOLD SHIFTER-D Model: VIVA QUAD Battery: 2.96 v, estimated longevity 3 years, 11 months Pacing percentage: 78% ventricular paced Events: The presenting rhythm is atrial paced with biventricular pacing and frequent ventricular premature contractions No significant arrhythmias Impression Normal device function; suboptimal MOLD SHIFTER pacing likely secondary to frequent PVCs. Should consider in clinic follow-up for further evaluation Follow Up As per schedule - in-clinic and remote ALBER SEALS MD Alber Seals MD IMPLANTABLE CARDIAC DEVICE documented in this encounter Visit Diagnoses Diagnosis Cardiomyopathy, primary Other primary cardiomyopathies documented in this encounter Care Teams Division Sales Manager Relationship Specialty Start Date End Date Donny Cooper MD [address] [place] [address] PCP - General Family Medicine 02/25/19 documented as of this encounter
--- OUTSIDE RECORDS SUMMARY | 2024-02-25 07:54 | XMS_ITS | Encounter Summary ---
Author Organization [facility] [place] [address] Care Team Providers Care Manager Of School Name Role Phone Donny Cooper MD Primary Care Provider [phone] Encounter Details Date Type Department Care Team (Late st Contact Info) Description 07/26/2019 Notes Only Cardiology at [address] [address] Maged Arguelles MD [facility] [place] [address] Social History Tobacco Use Types Packs/Day Years [...] his Medtronic biventricular ICD is reviewed. Suboptimal SUGARCANE RESEARCH TECHNICIAN at 84%. Normal device function. Awaiting Holter to assess PVC burden. Maged Arguelles MD [facility] Cardiac Electrophysiology 07/26/2019 9:04 AM documented in this encounter Plan of Treatment Upcoming Encounters Date Type Department Care Team (Late st Contact Info) Description 05/02/2024 10:00 AM EST Hospital Encounter Non-Invasive [place] [address] Arrived documented as of this encounter Visit Diagnoses Not on filedocumented in this encounter Care Teams Manager Of School Relationship Specialty Start Date End Date Donny Cooper MD [address] [place] [address] PCP - General Family Medicine 02/25/19 documented as of this encounter
--- OUTSIDE RECORDS SUMMARY | 2024-02-25 07:54 | XMS_ITS | Encounter Summary ---
Author Organization [facility] [place] [address] Care Team Providers Care Compressor Mechanic Bus Name Role Phone Marques Martinez MD Primary Care Provider [phone] Encounter Details Date Type Department Care Team (Late st Contact Info) Description 10/09/2010 11:35 AM EDT - 10/09/2010 11:59 PM EDT Hospital Encounter XRay at [address] [place] [address] Social History Tobacco Use Types [...] AM EST Hospital Encounter Non-Invasive Cardiology Lab [facility] [place] [address] Arrived documented as of this encounter Visit Diagnoses Not on filedocumented in this encounter Care Teams Compressor Mechanic Bus Relationship Specialty Start Date End Date Marques Martinez MD [address] [place] [address] PCP - General 04/01/10 04/08/11 documented as of this encounter
--- OUTSIDE RECORDS SUMMARY | 2024-02-25 07:54 | XMS_ITS | Encounter Summary ---
Author [facility] [place] [address] Care Team Providers Care Crib Tender Name Role Phone Donny Cooper MD Primary Care Provider [phone] Encounter Details Date Type Department Care Team (Latest Contact Info) Description 10/03/2022 10:00 AM EDT Office Visit Cardiology at [address] [address] Eleno No, [place] [facility] [place] [address] Cardiomyopathy, primary; Presence of cardiac resynchronization therapy defibrillator (MERCH[employer]ISING INTERNSHIP-D); Diaphragmatic stimulation by cardiac pacemaker, initial encounter [...] original note were not included. Cardiac Device MERCH[employer]ISING INTERNS[employer]IP-D Programming Evaluation Nabil Iglesias [id number] 10/03/2022 History: Mr. Iglesias is a pleasant [...] OFF Pacing Mode: DDD 60/130/120 Presenting EGMs: -BP/-CORRECTIONS SPECIALIST Underlying Rhythm: CHB with no obvious [...] EST Hospital Encounter Non-Invasive [place] [address] Arrived documented as of this encounter Procedures Procedure Name Priority Date/Time Associated Diagnosis Comments EKG 12-LEAD Routine 10/03/2022 11:00 AM EDT Cardiomyopathy, primary Presence of cardiac resynchronization therapy defibrillator ([employer]CH[employer]ISING INTERNSHIP-D) Diaphragmatic stimulation by cardiac pacemaker, initial encounter documented in this encounter Results * EKG 12 Lead (10/03/2022 11:00 AM EDT) Ventricular rate 74 BPM MUSE SYSTEM Atrial Rate 74 BPM MUSE SYSTEM P-R Interval 154 ms MUSE SYSTEM QRS Duration 162 ms MUSE SYSTEM Q-T Interval 470 ms MUSE SYSTEM QTC Calculated (Bezet) 521 ms MUSE SYSTEM Calculated P Crane 30 degrees MUSE SYSTEM Calculated R Crane -98 degrees MUSE SYSTEM Calculated T Crane 41 degrees MUSE SYSTEM INTERPRETATION Atrial-sense d [...] cardiomyopathies Presence of cardiac resynchronization therapy defibrillator ([employer]ISING INTERNSHIP-D) Diaphragmatic stimulation by cardiac pacemaker, initial encounter documented in this encounter Care Teams Crib Tender Relationship Specialty Start Date End Date Donny Cooper MD [address] [place] [address] PCP - General Family Medicine 02/25/19 documented as of this encounter
--- OUTSIDE RECORDS SUMMARY | 2024-02-25 07:54 | XMS_ITS | Encounter Summary ---
Author Organization [facility] Address [address] [place] [address] Care Team Providers Care Mud Analysis Operator Name Role Phone Clem Olvera MD Primary Care Provider [phone] Reason for Visit * Reason Onset Date Comments Appointment Related 10/23/2016 Check for fo llow up of pacer Encounter Details Date Type Department Care Team ([facility] Contact Info) Description 10/23/2016 Telephone [facility] Cardiology - [address] [place] [address] Pacemaker, Pace Appointment Related (Check [...] that Nabil had his pacemaker checked in [place] where they are for the winter. They have some back and are being followed by Dr. Hurd at [facility]. documented in this encounter Plan of Treatment Not on file documented as of this encounter Visit Diagnoses Not on filedocumented in this encounter Care Teams Mud Analysis Operator Relationship Specialty Start Date End Date Clem Olvera MD [address] [place] [address] PCP - General 12/18/15 documented as of this encounter
--- OUTSIDE RECORDS SUMMARY | 2024-02-25 07:54 | XMS_ITS | Encounter Summary ---
Author Organization [facility] [place] [address] Care Team Providers Care Clerical Warehouseman Name Role Phone Marques Martinez MD Primary Care Provider [phone] Reason for Visit * Reason Comments Follow Up Fracture PATELLA FX DOI 03/23 10 Encounter Details Date Type Department Care Team (Late st Contact Info) Description 10/09/2010 12:40 PM EDT Office Visit [place] [address] Jairon Gustafson MD [facility] [place] [address] Jose Francisco Bee PA [facility] [place] [address] Quadriceps tendon rupture (Primary Dx) Discharge Disposition: [...] st Contact Info) Description 05/02/2024 10:00 AM [facility] Hospital Encounter [place] [address] Arrived documented as of this encounter Visit Diagnoses Diagnosis Quadriceps tendon rupture- Primary Sprain and strain of other specified sites of knee and leg documented in this encounter Care Teams Clerical Warehouseman Relationship Specialty Start Date End Date Marques Martinez MD [address] [place] [address] PCP - General 04/01/10 04/08/11 documented as of this encounter
--- OUTSIDE RECORDS SUMMARY | 2024-02-25 07:54 | XMS_ITS | Encounter Summary ---
[place] [address] Care Team Providers Care Core Blower Name Role Phone Donny Cooper MD Primary Care Provider [phone] Encounter Details Date Type Department Care Team (Latest Contact Info) Description 08/06/2023 10:00 AM EDT - 08/06/2023 11:59 PM EDT Hospital Encounter Non[place] [address] Discharge Disposition: Home Social History Tobacco Use [...] [facility] Hospital Encounter Non-[place] [address] Arrived documented as of this encounter Visit Diagnoses Not on filedocumented in this encounter Care Teams Core Blower Relationship Specialty Start Date End Date Donny Cooper MD [address] [place] [address] PCP - General Family Medicine 02/25/19 documented as of this encounter
--- OUTSIDE RECORDS SUMMARY | 2024-02-25 07:54 | XMS_ITS | Clinical Summary ---
Author Organization [facility] [place] [address] Care Team Providers Care Cookee Name Role Phone Donny Cooper MD Primary Care Provider [phone] Allergies No known active allergies Medications Medication [...] EDT Hospital Encounter Non-Invasive [place] [address] Discharge Disposition: Home 01/05/2024 Telephone Cardiology at [address] [address] Kanika Shell 12/28/2023 Notes Only Cardiology at [address] [address] Kanika Shell from Last 3 Months Immunizations [...] EST Hospital Encounter Non-[place]vasive [place] [address] Arrived Health Maintenance Due Date Last Done Comments Tetanus/Diphtheria/Pertussis Vaccines (1 - Tdap) 08/19/1959 Zoster vaccine (1 of 2) 1990 Advance Directive 08/19/1995 Pneumoccocal Vaccine: 65+ (2 of 2 - PCV) 05/04/2009 05/04/2008 Covid-19 Vaccine (1 - 2022- season) 2024 Influenza (Flu) vaccine (1 o f 1 - Influenza standard series) 01/03/2024 02/01/2010, 03/06/2006, 02/24/2005 Medical Devices Implanted Type Area Coding Analyst Device Identifier Shelf Expiration Date Model / Serial / Lot Mdt : [id number] : [id number] Implanted: (Quantity not on file) Cardiac Resynchronization Therapy - Defibrillator Chest Medtronic - [id number] / [id number] / Care Teams Cookee Relationship Specialty Start Date End Date Donny Cooper MD [address] [place] [address] PCP - General Family Medicine 02/25/19
--- OUTSIDE RECORDS SUMMARY | 2024-02-25 07:54 | XMS_ITS | Encounter Summary ---
Author Organization [facility] [place] [address] Care Team Providers Care Book Salesman Name Role Phone Marques Martienz MD Primary Care Provider [phone] Encounter Details Date Type Department Care Team (Late st Contact Info) Description 06/12/2010 2:10 PM EST Office [place] [address] Jairon Fenton MD [facility] [place] [address] Discharge Disposition: Home Social History Tobacco Use [...] AM EST Hospital Encounter Non-[place] [address] Arrived documented as of this encounter Visit Diagnoses Not on filedocumented in this encounter Care Teams Book Salesman Relationship Specialty Start Date End Date Marques Martinez MD [address] [place] [address] PCP - General 04/01/10 04/08/11 documented as of this encounter
--- OUTSIDE RECORDS SUMMARY | 2024-02-25 07:54 | XMS_ITS | Encounter Summary ---
[place] [address] Care Team Providers Care Structural Steel Engineer Name Role Phone Donny Cooper MD Primary Care Provider [phone] Encounter Details Date Type Department Care Team (Latest Contact Info) Description 10/05/2022 10:00 AM EDT - 10/05/2022 11:59 PM EDT Hospital Encounter [place] [address] Discharge Disposition: Home Social History Tobacco Use [...] [facility]ICAL [facility] Hospital Encounter Non[place] [address] Arrived documented as of this [...] on filedocumented in this encounter Care Teams Structural Steel Engineer Relationship Specialty Start Date End Date Donny Cooper MD [address] [place] [address] PCP - General Family Medicine 02/25/19 documented as of this encounter
--- OUTSIDE RECORDS SUMMARY | 2024-02-25 07:54 | XMS_ITS | Encounter Summary ---
Author Organization [facility] Address [address] [place] [address] Care Team Providers Care Letter Of Credit Document Examiner Name Role Phone Clem Olvera MD Primary Care Provider [phone] Encounter Details Date Type Department Care Team (Latest Contact Info) Description 12/20/2015 10:52 EDT - 12/20/2015 23:52 EDT Hospital Encounter [facility] Cardiovascular Unit [address] [place] [address] Navdeep Hurd MD [address] [place] [address] [address] Discharge Disposition: Home or Self [...] need to beNPO or have a van cdl driver. However, his will be accompanying him. [place] to the airport [place] 1000 and then will come here and check-in around 1145. He agrees to have a shower. documented in this encounter Procedure Notes * Fantasma Dhillon MD - 12/20/2015 1356 EDT IR Brief Procedure Note Attending: Leo Clinical Biochemical Geneticist: Alejo Pre-op Dx: Arrhythmia, need for pacemaker [...] 12/19 documented in this encounter Care Teams Letter Of Credit Document Examiner Relationship Specialty Start Date End Date Clem Olvera MD [address] [place] [address] PCP - General 12/18/15 documented as of this encounter
--- OUTSIDE RECORDS SUMMARY | 2024-02-25 07:54 | XMS_ITS | Encounter Summary ---
Author Organization [facility] [place] [address] Care Team Providers Care Product Test Specialist Name Role Phone Donny Cooper MD Primary Care Provider [phone] Encounter Details Date Type Department Care Team (Latest Contact Info) Description 06/25/2021 3:23 PM EST - 06/25/2021 11:59 PM EST Hospital Encounter Non-Invasive [place] [address] Alber Seals MD [facility] [place] [address] Cardiomyopathy, primary Discharge Disposition: Home Social History [...] AM EST Hospital Encounter Non-Invasive [place] [address] Arrived documented as of this encounter Procedures Procedure Name Priority Date/Time Associated Diagnosis Comments ICD INTERROGATION 3 MONTH Routine 06/25/2021 3:24 PM EST Cardiomyopathy, primary documented in this encounter Results * ICD INTERROGATION 3 MONTH (06/25/2021 3:24 PM EST) Anatomical Region Laterality Modality Other Narrative 06/25/2021 3:42 PM EST Cardiac Device Remote Monitoring Report Summary Medtronic Carelink Device: BATCH TANK CONTROLLER-D Model: VIVA QUAD Battery: 2.95 v, estimated longevity 2 years 6 months Pacing percentage: 90% BATCH TANK CONTROLLER paced Events: Presenting rhythm: atrial paced/biventricular paced Frequent PVC's Impression Normal device function Follow Up As per schedule - in-clinic and remote ALBER SEALS MD 06/25/21 Alber Seals MD IMPLANTABLE CARDIAC DEVICE documented in this encounter Visit Diagnoses Diagnosis Cardiomyopathy, primary Other primary cardiomyopathies documented in this encounter Care Teams Product Test Specialist Relationship Specialty Start Date End Date Donny Cooper MD [address] [place] [address] PCP - General Family Medicine 02/25/19 documented as of this encounter
--- OUTSIDE RECORDS SUMMARY | 2024-02-25 07:54 | XMS_ITS | Encounter Summary ---
[place] [address] Care Team Providers Care Farmer Vegetable Name Role Phone Donny Cooper MD Primary Care Provider [phone] Encounter Details Date Type Department Care Team (Latest Contact Info) Description 07/07/2022 10:00 AM EST - 07/07/2022 11:59 PM EST Hospital Encounter Non-Invasive [place] [address] Discharge Disposition: Home Social History Tobacco Use [...] AM EST Hospital Encounter Non-Invasive [place] [address] Arrived documented as of [...] on filedocumented in this encounter Care Teams Farmer Vegetable Relationship Specialty Start Date End Date Donny Cooper MD [address] [place] [address] PCP - General Family Medicine 02/25/19 documented as of this encounter
--- OUTSIDE RECORDS SUMMARY | 2024-02-25 07:54 | XMS_ITS | Encounter Summary ---
[place] [address] Care Team Providers Care Drum Tester Name Role Phone Donny Cooper MD Primary Care Provider [phone] Encounter Details Date Type Department Care Team (Latest Contact Info) Description 04/03/2023 10:00 AM EST - 04/03/2023 11:59 PM [facility] Hospital Encounter Non-[place] [address] Discharge Disposition: Home Social History Tobacco Use [...] st Contact Info) Description 05/02/2024 10:00 AM [facility] Hospital Encounter Non-[place] [address] Arrived documented as of this [...] on filedocumented in this encounter Care Teams Drum Tester Relationship Specialty Start Date End Date Donny Cooper MD [address] [place] [address] PCP - General Family Medicine 02/25/19 documented as of this encounter
--- OUTSIDE RECORDS SUMMARY | 2024-02-25 07:54 | XMS_ITS | Encounter Summary ---
Author Organization [facility] Address [address] [place] [address] Care Team Providers Care Informatics Consultant Name Role Phone Unavailable Primary Care Provider Unavailabl e Encounter Details Date Type Department Care Team (Late st Contact Info) Description 12/02/2012 Results Only [facility] Laboratory Services - [facility] ([facility] [address] [place] [id number] Satinder Edwards MD [address] [place] [address] Social History Tobacco Use Types Packs/Day Years [...] ? NABIL IGLESIAS ? Accession #: ? [id number] ? : ? 1940 (Age: 72) ??M [...] Co de Phone Number DIVYA BERRY [address] [place] [address] documented in this encounter Visit Diagnoses Not on filedocumented in this encounter
--- OUTSIDE RECORDS SUMMARY | 2024-02-25 07:54 | XMS_ITS | Encounter Summary ---
Author [place] [address] Care Team Providers Care Tool Marker Name Role Phone Donny Cooper MD Primary Care Provider [phone] Encounter Details Date Type Department Care Team (Latest Contact Info) Description 01/03/2023 10:00 AM EDT - 01/03/2023 11:59 PM EDT Hospital Encounter Non[place] [address] Discharge Disposition: Home Social History Tobacco Use [...] [facility] Hospital Encounter Non-[place] [address] Arrived documented as of this [...] filedocumented in this encounter Care Teams Tool Marker Relationship Specialty Start Date End Date Donny Cooper MD [address] [place] [address] PCP - General Family Medicine 02/25/19 documented as of this encounter
--- OUTSIDE RECORDS SUMMARY | 2024-02-25 07:54 | XMS_ITS | Encounter Summary ---
Author Organization [facility] [place] [address] Care Team Providers Care Waste Collector Name Role Phone Clem Olvera MD Primary Care Provider Reason for Visit * Reason Comments Follow Up Fracture SP PATELLA FX DO12/12 DOI 03/30/10 Encounter Details Date Type Department Care Team (Late st Contact Info) Description 04/09/2011 1:30 PM EST Office [place] [address] Jairon Gustafson MD [facility] [place] [address] Jose Francisco Bee PA [facility] [place] [address] Patella fracture (Primary Dx) Discharge Disposition: Home [...] AM EST Hospital Encounter [place] [address] Arrived documented as of this encounter Visit Diagnoses Diagnosis Patella fracture- Primary Closed fracture of patella documented in this encounter Care Teams Waste Collector Relationship Specialty Start Date End Date Clem Olvera MD [address] [place] [address] PCP - General 04/09/11 02/24/19 documented as of this encounter
--- OUTSIDE RECORDS SUMMARY | 2024-02-25 07:54 | XMS_ITS | Encounter Summary ---
[place] [address] Care Team Providers Care Hat Brim And Crown Laminating Operator Name Role Phone Marques Martinez MD Primary Care Provider [phone] Encounter Details Date Type Department Care Team (Late st Contact Info) Description 10/03/2010 [place] [address] Marina Orosco, JADON Social History Tobacco Use Types Packs/Day Years Used Date Smoking Tobacco: Never Assessed Sex and Gender Information Value Date Recorded Sex Assigned at Not on file Gender Identity Not on file Sexual Orientation Not on file documented as of this encounter Plan of Treatment Upcoming Encounters Date Type Department Care Team (Late st Contact Info) Description 05/02/2024 10:00 AM [facility] Hospital Encounter Non-[place] [address] Arrived documented as of this encounter Visit Diagnoses Not on filedocumented in this encounter Care Teams Hat Brim And Crown Laminating Operator Relationship Specialty Start Date End Date Marques Martinez MD [address] [place] [address] PCP - General 04/01/10 04/08/11 documented as of this encounter
--- OUTSIDE RECORDS SUMMARY | 2024-02-25 07:54 | XMS_ITS | Encounter Summary ---
Author Organization [facility] Address [address] [place] [address] Care Team Providers Care Pulmonary Care Nurse Name Role Phone Clem Olvera MD Primary Care Provider Encounter Details Date Type Department Care Team (Late st Contact Info) Description 03/16/2019 Abstract [facility] Cardiology Clinic [address] [place] [address] Ronal Avelar, JADON AV block, 2nd degree [...] Modality Device Narrative 03/24/2019 10:30 EST [facility] Cardiology Device Visit Driver Trainee: Snapchattronic Device Type: LANDSCAPE CREW LEADER-D Service: Remote ? 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
--- OUTSIDE RECORDS SUMMARY | 2024-02-25 07:54 | XMS_ITS | Encounter Summary ---
[place] [address] Care Team Providers Care Fur Polisher Name Role Phone Marques Martinez MD Primary Care Provider [phone] Encounter Details Date Type Department Care Team (Late st Contact Info) Description 05/01/2010 2:40 PM EST Procedure visit [place] [address] Social History Tobacco Use Types Packs/Day Years [...] AM EST Hospital Encounter Non-Invasive [place] [address] Arrived documented as of this encounter Visit Diagnoses Not on filedocumented in this encounter Care Teams Fur Polisher Relationship Specialty Start Date End Date Marques Martinez MD [address] [place] [address] PCP - General 04/01/10 04/08/11 documented as of this encounter
--- OUTSIDE RECORDS SUMMARY | 2024-02-25 07:54 | XMS_ITS | Encounter Summary ---
[place] [address] Care Team Providers Care Car Rental Agent Name Role Phone Donny Cooper MD Primary Care Provider [phone] Encounter Details Date Type Department Care Team (Latest Contact Info) Description 04/08/2022 10:00 AM EST - 04/08/2022 11:59 PM [facility] Hospital Encounter Non-Invasive [place] [address] Discharge Disposition: Home Social History Tobacco Use [...] AM EST Hospital Encounter Non-Invasive [place] [address] Arrived documented as of this [...] on filedocumented in this encounter Care Teams Car Rental Agent Relationship Specialty Start Date End Date Donny Cooper MD [address] [place] [address] PCP - General Family Medicine 02/25/19 documented as of this encounter
--- OUTSIDE RECORDS SUMMARY | 2024-02-25 07:54 | XMS_ITS | Encounter Summary ---
Author Organization [facility] [place] [address] Care Team Providers Care Switch Cleaner Name Role Phone Marques Martinez MD Primary Care Provider [phone] Encounter Details Date Type Department Care Team (Late st Contact Info) Description 03/30/2010 [place] [address] Javeir Barajas MD [facility] [address] [place] [address] Social History Tobacco Use Types Packs/Day Years [...] AM EST Hospital Encounter Non-[place] [address] Arrived documented as of this encounter Procedures [...] AM EST Jairon Fenton MD [facility]ABLES [facility] * (ABNORMAL) CREATININE, SERUM (04/01/2010 6:09 AM [...] MD CHEMISTRY ORDERABLES Performing Organization Address [facility] de Phone Number CERNER CHRISTOSENNIUM * BUN (04/01/2010 6:09 AM EST) Blood Urea Nitrogen 12 10 - 20 mg/dL [facility] MILLENNIUM Blood specimen (specimen) 04/01/2010 6:09 AM EST 04/01/2010 6:09 AM EST Jairon Fenton MD CHEMISTRY ORDERABLES Performing Organization Address [facility] de Phone Number CERNER CHRISTOSENNIUM [...] HEMATOLOGY ORDERABLE S Performing Organization Address [facility] de Phone Number CERIVIS MILLENNIUM * HEPATIC [...] MD CHEMISTRY ORDERABLES Performing Organization Address [facility] Phone Number CERIVIS MILLENNIUM * ELECTROLYTE [...] MD CHEMISTRY ORDERABLES Performing Organization Address [facility] de Phone Number CERIVIS MILLENNIUM * CREATININE, SERUM (03/30/2010 6:05 PM EST) Creatinine 0.87 0.80 - 1.50 mg/dL [facility] Est Glomerular Filtration Rate >60 >=60 [facility] Comment: The National Kidney Disease Education [...] Urea Nitrogen 18 10 - 20 mg/dL [facility] Blood specimen (specimen) 03/30/2010 6:05 PM EST 03/30/2010 6:13 PM EST Jairon Fenton MD CHEMISTRY ORDERABLES Performing Organization Address [facility] de Phone Number DEJA MOSQUEDAIUM * APTT (03/30/2010 6:05 PM EST) Partial Thromboplastin Time 26 25 - 37 sec [facility] MILLENNIUM Comment: Recommended therapeutic PTT range for full dose unfractionated heparin is 80-114 seconds. Blood specimen (specimen) 03/30/2010 6:05 PM EST 03/30/2010 6:14 PM EST Jairon Fenton MD HEMATOLOGY ORDERABLE S Performing Organization Address [facility] Phone Number DEJA SEGOVIA * PROTIME-INR (03/30/2010 6:05 PM EST) Prothrombin Time 14.2 12.3 - 14.7 sec [facility] Comment: [facility] Transfusion Committee Guidelines: INR less than 2.0, PTT less than OR equal to 43.5 seconds, or Fibrinogen greater than or equal to 100 mg/dl indicate adequate procoagulant activity for hemostasis in patients without underlying bleeding disorders. International Normalization Ratio 1.1 0.9 - 1.1 [facility] Blood specimen (specimen) 03/30/2010 6:05 PM EST 03/30/2010 6:14 PM EST Jairon Fenton MD HEMATOLOGY ORDERABLE S Performing Organization Address [facility] de Phone Number DEJA SEGOVIA * (ABNORMAL) [...] Standard Deviation 44.2 35.0 - 46.0 fL [facility] coefficient of variation 13.1 10.9 - 14.4 % [facility] Mean Platelet Volume 10.6 9.0 - 12.0 fL [facility] Blood specimen (specimen) 03/30/2010 6:05 PM EST 03/30/2010 6:13 PM EST Jairon Fenton MD HEMATOLOGY ORDERABLE S Performing Organization Address City/[facility] de Phone Number [facility] * REFLEX LAB-ANTIBODY SCREEN (03/30/2010 3:17 PM EST) [facility] Ab Screen Interp Negative [facility] Expires at [id number] on: [id number] [facility] Blood specimen (specimen) 03/30/2010 3:17 PM EST 03/30/2010 3:17 PM EST Jvaier Barajas MD BLOOD BANK LAB ORDER PRECIOUS Performing Organization Address [facility] de Phone Number [facility] * REFLEX LAB-ABO/RH (03/30/2010 3:17 PM EST) [facility] ABORH Type A Pos [facility] Blood specimen (specimen) 03/30/2010 3:17 PM EST 03/30/2010 3:17 PM EST Javier Barajas MD BLOOD BANK LAB ORDER PRECIOUS Performing Organization Address [facility] de Phone Number [facility] * ELECTROLYTE PANEL (03/30/2010 2:50 PM EST) [facility] Sodium 135 135 - 145 mmol/L [facility] Potassium 4.3 3.5 - 5.0 mmol/L [facility] Comment: Please note: ??Patients with WBC [...] PM EST Javier Barajas MD CHEMISTRY ORDERABLES [facility] * CREATININE, SERUM (03/30/2010 2:50 PM [...] MD CHEMISTRY ORDERABLES Performing Organization Address [facility] Phone Number [facility] * BUN (03/30/2010 2:50 PM EST) Blood Urea Nitrogen 18 10 - 20 mg/dL [facility] Blood specimen (specimen) 03/30/2010 2:50 PM EST 03/30/2010 3:05 PM EST Javier Barajas MD CHEMISTRY ORDERABLES Performing Organization Address [facility] Phone Number [facility] * GLUCOSE, RANDOM (03/30/2010 2:50 PM EST) Glucose 95 <=199 mg/dL [facility] Comment:Diabetes: >=200 mg/d L plus symptoms Blood specimen (specimen) 03/30/2010 2:50 PM EST 03/30/2010 3:05 PM EST Javier Barajas MD CHEMISTRY ORDERABLES Performing Organization Address [facility] Phone Number [facility] * APTT (03/30/2010 2:50 PM EST) Partial Thromboplastin Time 25 25 - 37 sec [facility] Comment: Recommended therapeutic PTT range for full dose unfractionated heparin is 80-114 seconds. Blood specimen (specimen) 03/30/2010 2:50 PM EST 03/30/2010 3:06 PM EST Javier Barajas MD HEMATOLOGY ORDERABLE S Performing Organization Address [facility] Phone Number [facility] * PROTIME-INR (03/30/2010 2:50 PM EST) Prothrombin Time 14.1 12.3 - 14.7 sec [facility] Comment: [facility] Transfusion Committee Guidelines: INR less [...] on filedocumented in this encounter Care Teams Switch Cleaner Relationship Specialty Start Date End Date Marques Martinez MD [address] [place] [address] PCP - General 04/01/10 04/08/11 documented as of this encounter
--- OUTSIDE RECORDS SUMMARY | 2024-02-25 07:54 | XMS_ITS | Encounter Summary ---
[place] [address] Care Team Providers Care Balancing Machine Operator Name Role Phone Donny Cooper MD Primary Care Provider [phone] Encounter Details Date Type Department Care Team (Late st Contact Info) Description 01/05/2024 Telephone Cardiology at [address] [address] Kanika Shell Social History Tobacco [...] AM EST Hospital Encounter Non-[place] [address] Arrived documented as of this encounter Visit Diagnoses Not on filedocumented in this encounter Care Teams Balancing Machine Operator Relationship Specialty Start Date End Date Donny Cooper MD [address] [place] [address] PCP - General Family Medicine 02/25/19 documented as of this encounter
--- OUTSIDE RECORDS SUMMARY | 2024-02-25 07:54 | XMS_ITS | Encounter Summary ---
[place] [address] Care Team Providers Care Swimming Pool Servicer Name Role Phone Marques Martinez MD Primary Care Provider [phone] Encounter Details Date Type Department Care Team (Late st Contact Info) Description 06/12/2010 2:00 PM EST Procedure visit [place] [address] Social History Tobacco Use Types Packs/Day Years [...] AM EST Hospital Encounter [place] [address] Arrived documented as of this encounter Visit Diagnoses Not on filedocumented in this encounter Care Teams Swimming Pool Servicer Relationship Specialty Start Date End Date Marques Martinez MD [address] [place] [address] PCP - General 04/01/10 04/08/11 documented as of this encounter
--- OUTSIDE RECORDS SUMMARY | 2024-02-25 07:54 | XMS_ITS | Encounter Summary ---
[place] [address] Care Team Providers Care Data Analysis Intern Name Role Phone Donny Cooper MD Primary Care Provider [phone] Encounter Details Date Type Department Care Team (Late st Contact Info) Description 12/28/2023 Notes Only Cardiology at [address] [address] Kanika Shell Social History Tobacco Use Types [...] [facility] Hospital Encounter Non-Invasive [place] [address] Arrived documented as of this encounter Visit Diagnoses Not on filedocumented in this encounter Care Teams Data Analysis Intern Relationship Specialty Start Date End Date Donny Cooper MD [address] [place] [address] PCP - General Family Medicine 02/25/19 documented as of this encounter
--- OUTSIDE RECORDS SUMMARY | 2024-02-25 07:54 | XMS_ITS | Encounter Summary ---
[place] [address] Care Team Providers Care Residential Appraiser Name Role Phone Donny Cooper MD Primary Care Provider [phone] Encounter Details Date Type Department Care Team (Late st Contact Info) Description 03/17/2019 Telephone Cardiology at [address] [address] Sheri Quinn LNA Social History [...] AM EST Medication list reviewed with [facility] list. Please review with patient at next clinic visit. documented in this encounter Plan of Treatment Upcoming Encounters Date Type Department Care Team (Late st Contact Info) Description 05/02/2024 10:00 AM EST Hospital Encounter Non-[place] [address] Arrived documented as of this encounter Visit Diagnoses Not on filedocumented in this encounter Care Teams Residential Appraiser Relationship Specialty Start Date End Date Donny Cooper MD [address] [place] [address] PCP - General Family Medicine 02/25/19 documented as of this encounter
--- OUTSIDE RECORDS SUMMARY | 2024-02-25 07:54 | XMS_ITS | Encounter Summary ---
Author Organization [facility] Address [address] [place] [address] Care Team Providers Care Apartment House Manager Name Role Phone Unavailable Primary Care Provider Unavailabl e Encounter Details Date Type Department Care Team (Late st Contact Info) Description 05/06/2001 Results Only [facility] [address] [place] [address] Hernandez Partida MD [address] [place] [address] Social History Tobacco Use Types Packs/Day Years [...] is submitted entirely in cassette (B). ??(Naty Caal)/[facility] End of Report [facility] 05/06/2001 05/07/2001 9:2 5 EST Hernandez Partida MD PATHOLOGY ORDERABLES [facility] [address] [place] [address] documented in this encounter Visit Diagnoses Not on filedocumented in this encounter
--- OUTSIDE RECORDS SUMMARY | 2024-02-25 07:54 | XMS_ITS | Encounter Summary ---
Author Organization [facility] Address [address] [place] [address] Care Team Providers Care Physical Sciences Instructor Name Role Phone Clem Olvera MD Primary Care Provider [phone] Reason for Referral * (Routine) - Closed Specialty Diagnoses / Procedures Referred By Pedro madera Referred To Contact Beatrice De La Garza NP [address] [place] [phone] Referral ID Status Reason Start Date Expiration Date V isits Requested Visits Authorized [id number] Closed Specialty Services Required 02/27/2016 1 1 Comments You must contact us if we have not contacted you or you have missed your scheduled appointment. If you have any nursing questions, please don't hesitate to call the Cardiac Arrhythmia Service at [facility] at or , extension [phone]. For any scheduling of appointments, please call [phone] or , extension [phone]. . * (Routine) - Closed Specialty Diagnoses / Procedures Referred By Pedro madera Referred To Contact Beatrice De La Garza NP [address] [phone] Referral ID Status Reason Start Date Expiration Date V isits Requested Visits Authorized [id number] Closed Specialty Services Required 02/27/2016 1 1 Comments You have a pre existing appointment with Dr. Olvera on March 05 at 2:00, please have Dr. Olvera check your incision at that visit. * (Routine) - Closed Specialty Diagnoses / Procedures Referred By Contbecca t Referred To Contact Beatrice De La Garza NP [address] [phone] Referral ID Status Reason Start Date Expiration Date V isits Requested Visits Authorized [id number] Closed Specialty Services Required 02/27/2016 1 1 [...] [facility] is located at [address] [facility] in [place] -Clinics are also held in [facility], and [place], [place] and [facility]. If you live in those areas, we will make arrangements for follow-up appointments in one of those clinics.. Encounter Details Date Type Department Care Team (Late st Contact Info) Description 02/27/2016 6:30 EDT - 02/28/2016 13:39 EDT Hospital Encounter [facility] Cardiac/Telemetry Unit [address] [place] [address] Gulshan Drummond MD PhD [address] [phone] Gulshan Montoya Sa, MD [address] [facility] [address] [place] [phone] AICD lead malfunction, subsequent encounter; ICD [...] around May 2013, when he was in [place], [place]. This triggered major cardiac workup including [...] then underwent a device upgrade to a CORRECTIONAL OFFICER LIEUTENANT-D device with biventricular pacing for his EF [...] been followed in cardiology outreach clinic at [facility] in [place]. Continued high pacing threshold on the epicardial [...] and plans to follow up with his Law Enforcement Officer in [place] in 6-8 weeks for [...] HGBA1C Discharge Follow Up Appointments Scheduled with [facility] Appointments Outside of [facility] We Will Schedule Studies We Will Schedule Appointments We Recommend but have not been Scheduled Beatrice De La Garza NP 02/27/2016 10:59 Associated attestation - Gulshan Montoya Sa, MD - 02/28/2016 1519 EDT Attending Attestation: I saw and evaluated the patient. I discussed the case with the resident/FLIGHT ENGINEER/fellow and agree with the findings and plan [...] Notes * Lou Alfonso RN - 02/28/2016 1692 EDT Pt awaiting discharge. IV and tele was removed by primary nurse. This RN administered flu shot and provided flu information sheet. AVS and medications reviewed by RN with patient and . AVS statedcoreg was 3.25mg BID, which pt states no, they must have copied it down wrong. I'm not doing that.We've been through this in [place]. It makes me pass out. RN suggested checking with team, which pt denied and states I wont take it twice a day. 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 Pharmacy is [facility] in [facility]. No needs identified at time of discharge. will provide transportation. Beatrice Rodriguez RN Case Manager #[id number] documented in this encounter H&P Notes * [...] around May 2013, when he was in [place], [place]. This triggered major cardiac workup including [...] point, his device was upgraded to a CORRECTIONAL OFFICER LIEUTENANT-D device with biventricular pacing. By the patient's [...] been followed in cardiology outreach clinic at [facility] in [place]. Continued high pacing threshold on the epicardial LV lead has caused a very rapid battery depletion. Dr. David Adams in [place] recommended against lead extraction and reimplant as [...] ??? Pacemaker insertion 2002 2013 second pacemaker [facility] Social History Family History Social History Substance Use Topics ??? Smoking status: Former Smoker Years: 35.00 Quit date: 1989 ??? Smokeless tobacco: Not on file ??? Alcohol use 6.6 oz/week 6 Cans of beer, 5 Glasses of wine per week , lives with , retired. Spends leong in [place]. Spends the chery in [place], [place]. Quit smoking in 1990. Has 2 [...] point, his device was upgraded to a CORRECTIONAL OFFICER LIEUTENANT-D device with biventricular pacing with a surgically [...] 03/12/2016 12:4 3 EST Scan 2 News Department Intern PROCEDURE/MINOR JUDD GICAL ORDERABLES * ECG REPORT - SCANNED (03/04/2016 14:06 EDT) 03/04/2016 14:0 6 EDT Scan 2 News Department Intern PROCEDURE/MINOR JUDD GICAL ORDERABLES * ECG REPORT - SCANNED (03/04/2016 14:06 EDT) 03/04/2016 14:0 6 EDT Scan 2 News Department Intern PROCEDURE/MINOR JUDD GICAL ORDERABLES * IMPLANT RECORD - SCANNED (03/04/2016 14:06 EDT) 03/04/2016 14:0 6 EDT Scan 2 News Department Intern PROCEDURE/MINOR JUDD GICAL ORDERABLES * ECG REPORT - SCANNED (03/01/2016 8:58 EDT) 03/01/2016 8:58 EDT Scan 2 News Department Intern PROCEDURE/MINOR JUDD GICAL ORDERABLES * ECG REPORT - SCANNED (03/01/2016 8:58 EDT) 03/01/2016 8:58 EDT Scan 2 News Department Intern PROCEDURE/MINOR JUDD GICAL ORDERABLES * CHEST PA [...] IMAGING ORDERABLES * HEMAGRAM (02/28/2016 5:44 EDT) [facility] WBC 9.84 4.0 - 10.4 K/cmm 02/28/2016 6:26 EDT [facility] RBC 4.42 4.36 - 5.78 M/cmm 02/28/2016 6:26 T [facility] Hemoglobin 14.2 13.8 - 17.3 gm/dl 02/28/2016 6:26 [facility] HCT 40.9 39.5 - 50.2 % 02/28/2016 6:26 [facility] MCV 93 81 - 95 fl 02/28/2016 6:26 [facility] MCH 32.1 27.6 - 33.0 pg 02/28/2016 6:26 [facility] MCHC 34.7 32.8 - 36.4 gm/dl 02/28/2016 6:26 [facility] RDW-CV 13.1 11.8 - 14.1 % 02/28/2016 6:26 [facility] RDW-SD 44.6 36.5 - 45.9 fl 02/28/2016 6:26 [facility] PLT 151 141 - 377 K/cmm 02/28/2016 6:26 [facility] MPV 11.2 9.5 - 12.7 fl 02/28/2016 6:26 [facility] Blood specimen (specimen) BLOOD SPECIMEN / Unknown 02/28/2016 5:44 EDT 02/28/2016 6:13 EDT Beatrice De La Garza NP HEMATOLOGY & PF4 ORDERABLES [facility] [address] [place] [address] * (ABNORMAL) CREATININE (02/28/2016 5:44 EDT) Creatinine 0.65(L) 0.66 - 1.25 mg/dl 02/28/2016 6:48 EDT [facility] GFR, Calculated 95 >60 ml/min/1.7 3m2 02/28/2016 6:48 EDT [facility] Comment: eGFR calculated using CKD-EPI equation for non Americans. Multiply eGFR by 1.16 for Americans. Blood specimen (specimen) BLOOD SPECIMEN / Unknown 02/28/2016 5:44 EDT 02/28/2016 6:13 EDT Beatrice De La Garza NP CHEMISTRY & B LOOD GAS ORDERABLES Performing Organization Address [facility]/ZIP Co de Phone Number [facility] [address] [place] [address] * BUN (02/28/2016 5:44 EDT) BUN 14 10 - 26 mg/dl 02/28/2016 6:48 EDT [facility] Blood specimen (specimen) BLOOD SPECIMEN / Unknown 02/28/2016 5:44 EDT 02/28/2016 6:13 EDT Beatrice De La Garza FLIGHT ENGINEER CHEMISTRY & B LOOD GAS ORDERABLES Performing Organization Address [facility] Co de Phone Number [facility] [address] [place] [address] * ELECTROLYTES (02/28/2016 5:44 EDT) Sodium 138 136 - 145 mEq/L 02/28/2016 6:48 EDT [facility] Potassium 4.7 3.5 - 5.0 mEq/L 02/28/2016 6:48 EDT [facility] Chloride 104 96 - 110 mEq/L 02/28/2016 6:48 EDT [facility] CO2 25 22 - 32 mEq/L 02/28/2016 6:48 EDT [facility] Comment:Note new reference r hong 02/19/16 Blood specimen (specimen) BLOOD SPECIMEN / Unknown 02/28/2016 5:44 EDT 02/28/2016 6:13 EDT Beatrice De La Garza NP CHEMISTRY & B LOOD GAS ORDERABLES [facility] [address] [place] [address] * PORTABLE CHEST 1 VIEW (02/27/2016 12:46 [...] 12:41 EDT) 02/27/2016 12:4 1 EDT Narrative [facility] - 02/28/2016 8:57 EDT ? [facility] ? Test Date: ?2016-02-27 Pat Name: ? NABIL IGLESIAS ? Department: ?? [facility] ? Room: ? MW514 Gender: ? M ?Atomic Fuel Assembler: ?? [id number] : ?1940 ? Requested By: KAIN REED L Order Number: [id number] ? Reading MD: ?? BRAYAN CUENCA MD ? Measurements Intervals ?[place] ? Rate: ? 63 ? P: ?15 [...] Date: 2016-02-27 Pat Name: NABIL IGLESIAS Department: [place] [address] Room: [facility] Gender: M Atomic Fuel Assembler: [id number] : 1940 Requested By: KAIN Gallagher Order Number: [id number] Reading MD: BRAYAN CUENCA MD Measurements Intervals [place] Rate: 63 P: 15 [place]: 159 QRS: 234 QRSD: 156 T: 15 QT: 479 QTc: 493 Interpretive Statements ELECTRONIC VENTRICULAR PACEMAKER Compared to ECG 02/27/2016 08:10:34 No significant changes I reviewed the tracing and have either agreed or edited the findings inthis report. Electronically Signed On 02-28-16 08:57:02 EDT by BRAYAN BEEBE. Gulshan Drummond MD PhD CARDIA C ECG ORDERABLES [facility] * PROTIME (02/27/2016 8:45 EDT) Pro Time 12.3 10.3 - 13.1 secs 02/27/2016 9:10 EDT [facility] Comment: New prothrombin t josue range effective 01/29/16 I.N.R. 1.1 0.9 - 1.1 Ratio 02/27/2016 9:10 EDT [facility] Comment: Moderate Intensity Coumadin INR = 2.0-3.0 Adjustments in anticoagulant therapy dose should be based upon the INR and NOT the Pro Time. Blood specimen (specimen) BLOOD SPECIMEN / Unknown 02/27/2016 8:45 EDT 02/27/2016 8:54 EDT Gulshan Drummond MD PhD HEMATO LOGY & PF4 ORDERABLES [facility] [address] [place] [address] * HEMAGRAM (02/27/2016 8:45 EDT) WBC 6.47 4.0 - 10.4 K/cmm 02/27/2016 8:57 EDT [facility] RBC 4.51 4.36 - 5.78 M/cmm 02/27/2016 8:57 EDT [facility] Hemoglobin 14.7 13.8 - 17.3 gm/dl 02/27/2016 8:57 EDT [facility] HCT 41.7 39.5 - 50.2 % 02/27/2016 8:57 EDT [facility] MCV 93 81 - 95 fl 02/27/2016 8:57 EDT [facility] MCH 32.6 27.6 - 33.0 pg 02/27/2016 8:57 EDT [facility] MCHC 35.3 32.8 - 36.4 gm/dl 02/27/2016 8:57 T [facility] RDW-CV 13.1 11.8 - 14.1 % 02/27/2016 8:57 EDT [facility] RDW-SD 44.0 36.5 - 45.9 fl 02/27/2016 8:57 EDT [facility] PLT 176 141 - 377 K/cmm 02/27/2016 8:57 EDT [facility] MPV 10.7 9.5 - 12.7 fl 02/27/2016 8:57 EDT [facility] Blood specimen (specimen) BLOOD SPECIMEN / Unknown 02/27/2016 8:45 EDT 02/27/2016 8:54 EDT Gulshan Drummond MD PhD HEMATO LOGY & PF4 ORDERABLES [facility] [address] [place] [address] * ELECTROLYTES (02/27/2016 8:45 EDT) Sodium 142 136 - 145 mEq/L 02/27/2016 9:13 EDT [facility] Potassium 4.7 3.5 - 5.0 mEq/L 02/27/2016 9:13 EDT [facility] Chloride 103 96 - 110 mEq/L 02/27/2016 9:13 EDT [facility] CO2 27 22 - 32 mEq/L 02/27/2016 9:13 EDT [facility] Comment:Note new reference r hong 02/19/16 Blood specimen (specimen) BLOOD SPECIMEN / Unknown 02/27/2016 8:45 EDT 02/27/2016 8:54 EDT Gulshan Drummond MD PhD CHEMIS TRY & BLOOD GAS ORDERABLES Performing Organization Address [facility] de Phone Number [facility] [address] [place] [address] * CREATININE (02/27/2016 8:45 EDT) Creatinine 0.69 0.66 - 1.25 mg/dl 02/27/2016 9:13 EDT [facility] GFR, Calculated 93 >60 ml/min/1.7 3m2 02/27/2016 9:13 EDT [facility] Comment: eGFR calculated using CKD-EPI equation for non Americans. Multiply eGFR by 1.16 for Americans. Blood specimen (specimen) BLOOD SPECIMEN / Unknown 02/27/2016 8:45 EDT 02/27/2016 8:54 EDT Gulshan Drummond MD PhD CHEMIS TRY & BLOOD GAS ORDERABLES Performing Organization Address City/[facility] Co de Phone Number [facility] [address] [place] [address] * BUN (02/27/2016 8:45 EDT) BUN 17 10 - 26 mg/dl 02/27/2016 9:13 EDT [facility] Blood specimen (specimen) BLOOD SPECIMEN / Unknown 02/27/2016 8:45 EDT 02/27/2016 8:54 EDT Gulshan Drummond MD PhD CHEMIS TRY & BLOOD GAS ORDERABLES [facility] [address] [place] [address] * EKG 12-LEAD (02/27/2016 8:08 EDT) 02/27/2016 8:08 EDT Narrative [facility] EKG - 02/28/2016 9:01 EDT ? [facility] ? Test Date: ?2016-02-27 Pat Name: ? NABIL IGLESIAS ? Department: ?? [facility] ? Room: ? PF4484 Gender: ? M ?Atomic Fuel Assembler: ?? [id number] : ?1940 ? Requested By: MARCIA Boo Order Number: [id number] ? Julia WRIGHT: ?? BRAYAN CUENCA MD ? Measurements Intervals ?[place] ? Rate: ? 69 ? P: ?147 [...] NABIL IGLESIAS Department: [facility] Room: [id number] Gender: M Atomic Fuel Assembler: [id number] : 1940 Requested By: MARCIA Boo Order Number: [id number] Reading MD: BRAYAN CUENCA MD Measurements Intervals [place] Rate: 69 P: 147 [place]: 134 QRS: -67 QRSD: 160 T: -59 QT: 434 QTc: 467 Interpretive Statements ELECTRONIC ATRIAL PACEMAKER ELECTRONIC VENTRICULAR PACEMAKER Compared to ECG 02/27/2016 08:08:46 No significant changes I reviewed the tracing and have either agreed or edited the findings inthis report. Electronically Signed On 02-28-16 09:01:04 EDT by BRAYAN BEEBE. Navdeep Hurd MD CARDIAC ECG ORD ERABLES [facility] EKG documented in this encounter Visit Diagnoses [...] Reason: Other - Comment: pt already took PER ASSESSMENT NURSE, takes other meds at HS) 921 (Given [...] Reason: Other - Comment: pt already took PER ASSESSMENT NURSE, takes other meds at HS)2100 (Given - Provider: Mady Bruno RN) spironolactone (ALDACTONE) tablet 12.5 mg 12.5 mg, oral, DAILY, First dose on Thu02/27/16 at 1245, Until Discontinued, Routine 1306 (Not Given - Provider: Nneka Stuart RN - Reason: Other - Comment: pt already took PER ASSESSMENT NURSE, takes other meds at HS)2102 (Given - Provider: Mady Bruno RN) tamsulosin (FLOMAX) capsule 0.4 mg 0.4 mg, oral, DAILY, First dose on Thu02/27/16 at 1245, Until Discontinued, Routine 1306 (Not Given - Provider: Nneka Stuart RN - Reason: Other - Comment: pt already took PER ASSESSMENT NURSE, takes other meds at HS) 921 (Given [...] 1058, Routine 09 (Given - Provider: Ada Onfore RN)0928 (Given - Provider: Reina Onofre RN)0954 [...] 02/02 documented in this encounter Care Teams Physical Sciences Instructor Relationship Specialty Start Date End Date Clem Olvera MD [address] [place] [id number] PCP - General 12/18/15 documented as of this encounter
[2024-02-25 08:01] VITALS: BP 121/63; PULSE 70; O2SAT 97
--- OUTSIDE RECORDS SUMMARY | 2024-03-01 08:30 | XMS_ITS | Encounter Summary ---
Author Organization [facility] Address [address] [place] [address] Care Team Providers Care Retail Event Coordinator Name Role Phone Clem Olvera MD Primary Care Provider [phone] Reason for Referral * (Routine) - Closed Specialty Diagnoses / Procedures Referred By Pedro madera Referred To Contact Beatrice De La Garza NP [address] [place] [phone] Referral ID Status Reason Start Date Expiration Date V isits Requested Visits Authorized [id number] Closed Specialty Services Required 02/27/2016 1 1 Comments You must contact us if we have not contacted you or you have missed your scheduled appointment. If you have any nursing questions, please don't hesitate to call the Cardiac Arrhythmia Service at [facility] at [phone] or , extension [phone]. For any scheduling of appointments, please call [phone] or , extension [phone]. . * (Routine) - Closed Specialty Diagnoses / Procedures Referred By Pedro madera Referred To Contact Beatrice De La Garza NP [address] [address] Referral ID Status Reason Start Date Expiration Date V isits Requested Visits Authorized [id number] Closed Specialty Services Required 02/27/2016 1 1 Comments You have a pre existing appointment with Dr. Olvera on March 05 at 2:00, please have Dr. Olvera check your incision at that visit. * (Routine) - Closed Specialty Diagnoses / Procedures Referred By Contbecca t Referred To Contact Beatrice De La Garza NP [address] [address] Referral ID Status Reason Start Date Expiration Date V isits Requested Visits Authorized [id number] Closed Specialty Services Required 02/27/2016 1 1 [...] [facility] Cardiology is located at [address] [facility] in [place] -Clinics are also held in [facility], and [place], [place] and [facility]. If you live in those areas, we will make arrangements for follow-up appointments in one of those clinics.. Encounter Details Date Type Department Care Team (Late st Contact Info) Description 02/27/2016 6:30 EDT - 02/28/2016 13:39 EDT Hospital Encounter [facility] Cardiac/Telemetry Unit [address] [place] [address] Gulshan Drummond MD PhD [address] [address] Gulshan Montoya Sa, MD [address] [facility] [address] [place] [phone] AICD lead malfunction, subsequent encounter; ICD [...] EF of 20-25% status post silent inferior NC in the early . 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 He had heart failure symptoms that started around May 2013, when he was in [place], [place]. This triggered major cardiac workup including [...] then underwent a device upgrade to a BLOOD DONOR UNIT ASSISTANT-D device with biventricular pacing for his EF [...] followed in cardiology outreach clinic at [facility] in [place]. Continued high pacing threshold on the epicardial [...] and plans to follow up with his Senior Program Manager in [place] in 6-8 weeks for which he will arrange once he has arrived in [place]. He has been provided with the implant [...] HGBA1C Discharge Follow Up Appointments Scheduled with [facility] Appointments Outside of [facility] We Will Schedule Studies We Will Schedule Appointments We Recommend but have not been Scheduled Beatrice De La Garza NP 02/27/2016 10:59 Associated attestation - Gulshan Montoya Sa, MD - 02/28/2016 1519 EDT Attending Attestation: I saw and evaluated the patient. I discussed the case with the resident/SECOND BUTLER/fellow and agree with the findings and plan [...] Notes * Lou Alfonso RN - 02/28/2016 7529 EDT Pt awaiting discharge. IV and tele [...] agree to review this medication with his service assistant and plans to remain on his home dosing, which was in the morning. He received dose this am. Ptleft via wheelchair with . * Beatrice Rodriguez - 02/28/2016 1329 EDT Brief visit with patient and as they were being discharged. Patient states he is independent in self care and home management. He feels well supported by friends and neighbors. Patient has Medicare and [facility]. [facility]acy [facility] in [facility]. No needs identified at time of discharge. will provide transportation. Beatrice Rodriguez RN Case Manager #[id number] documented in this encounter H&P Notes * Navdeep Hurd MD - 02/27/2016 0830 EDT Cardiology Admitting H&P Admit Date: 02/27/2016 Date of Service: 02/27/2016 PCP: Clem Olvera Code Status: Full Code Chief Complaint: FINN, device battery depletion, high pacing threshold on epicardial lead HPI: 74-year-old man with coronary artery disease and ischemic cardiomyopathy status post silent inferior NC in the early . 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 He had heart failure symptoms that started around May 2013, when he was in [place], [place]. This triggered major cardiac workup including [...] point, his device was upgraded to a BLOOD DONOR UNIT ASSISTANT-D device with biventricular pacing. By the patient's [...] followed in cardiology outreach clinic at [facility] in [place]. Continued high pacing threshold on the epicardial LV lead has caused a very rapid battery depletion. Dr. David Adams in [place] recommended against lead extraction and reimplant as [...] ??? Pacemaker insertion 2002 2013 second pacemaker [facility] Social History Family History Social History Substance Use Topics ??? Smoking status: Former Smoker Years: 35.00 Quit date: 1989 ??? Smokeless tobacco: Not on file ??? Alcohol use 6.6 oz/week 6 Cans of beer, 5 Glasses of wine per week , lives with , retired. Spends leong in [place]. Spends the chery in [place], [place]. Quit smoking in 1990. Has 2 [...] and ischemic cardiomyopathy status post silent inferior NC in the early . Also diagnosed with [...] point, his device was upgraded to a BLOOD DONOR UNIT ASSISTANT-D device with biventricular pacing with a surgically [...] EST) 03/12/2016 12:4 3 EST Scan 2 Parking Lot Attendant And Cashier PROCEDURE/MINOR JUDD GICAL ORDERABLES * ECG REPORT - SCANNED (03/04/2016 14:06 EDT) 03/04/2016 14:0 6 EDT Scan 2 Parking Lot Attendant And Cashier PROCEDURE/MINOR JUDD GICAL ORDERABLES * ECG REPORT - SCANNED (03/04/2016 14:06 EDT) 03/04/2016 14:0 6 EDT Scan 2 Parking Lot Attendant And Cashier PROCEDURE/MINOR JUDD GICAL ORDERABLES * IMPLANT RECORD - SCANNED (03/04/2016 14:06 EDT) 03/04/2016 14:0 6 EDT Scan 2 Parking Lot Attendant And Cashier PROCEDURE/MINOR JUDD GICAL ORDERABLES * ECG REPORT - SCANNED (03/01/2016 8:58 EDT) 03/01/2016 8:58 EDT Scan 2 Parking Lot Attendant And Cashier PROCEDURE/MINOR JUDD GICAL ORDERABLES * ECG REPORT - SCANNED (03/01/2016 8:58 EDT) 03/01/2016 8:58 EDT Scan 2 Parking Lot Attendant And Cashier PROCEDURE/MINOR JUDD GICAL ORDERABLES * CHEST PA [...] IMAGING ORDERABLES * HEMAGRAM (02/28/2016 5:44 EDT) [facility] WBC 9.84 4.0 - 10.4 K/cmm 02/28/2016 6:26 EDT [facility] RBC 4.42 4.36 - 5.78 M/cmm 02/28/2016 6:26 T [facility] Hemoglobin 14.2 13.8 - 17.3 gm/dl 02/28/2016 6:26 [facility] HCT 40.9 39.5 - 50.2 % 02/28/2016 6:26 [facility] MCV 93 81 - 95 fl 02/28/2016 6:26 [facility] MCH 32.1 27.6 - 33.0 pg 02/28/2016 6:26 [facility] MCHC 34.7 32.8 - 36.4 gm/dl 02/28/2016 6:26 [facility] RDW-CV 13.1 11.8 - 14.1 % 02/28/2016 6:26 [facility] RDW-SD 44.6 36.5 - 45.9 fl 02/28/2016 6:26 [facility] PLT 151 141 - 377 K/cmm 02/28/2016 6:26 [facility] MPV 11.2 9.5 - 12.7 fl 02/28/2016 6:26 [facility] Blood specimen (specimen) BLOOD SPECIMEN / Unknown 02/28/2016 5:44 EDT 02/28/2016 6:13 EDT Beatrice De La Garza NP HEMATOLOGY & PF4 ORDERABLES [facility] [address] [place] [address] * (ABNORMAL) CREATININE (02/28/2016 5:44 EDT) Creatinine 0.65(L) 0.66 - 1.25 mg/dl 02/28/2016 6:48 EDT [facility] GFR, Calculated 95 >60 ml/min/1.7 3m2 02/28/2016 6:48 EDT [facility] Comment: eGFR calculated using CKD-EPI equation for non Americans. Multiply eGFR by 1.16 for Americans. Blood specimen (specimen) BLOOD SPECIMEN / Unknown 02/28/2016 5:44 EDT 02/28/2016 6:13 EDT Beatrice De La Garza NP CHEMISTRY & B LOOD GAS ORDERABLES Performing Organization Address [facility]/ZIP Co de Phone Number [facility] [address] [place] [address] * BUN (02/28/2016 5:44 EDT) BUN 14 10 - 26 mg/dl 02/28/2016 6:48 EDT [facility] Blood specimen (specimen) BLOOD SPECIMEN / Unknown 02/28/2016 5:44 EDT 02/28/2016 6:13 EDT Beatrice De La Garza SECOND BUTLER CHEMISTRY & B LOOD GAS ORDERABLES Performing Organization Address [facility] Co de Phone Number [facility] [address] [place] [address] * ELECTROLYTES (02/28/2016 5:44 EDT) Sodium 138 136 - 145 mEq/L 02/28/2016 6:48 EDT [facility] Potassium 4.7 3.5 - 5.0 mEq/L 02/28/2016 6:48 EDT [facility] Chloride 104 96 - 110 mEq/L 02/28/2016 6:48 EDT [facility] CO2 25 22 - 32 mEq/L 02/28/2016 6:48 EDT [facility] Comment:Note new reference r hong 02/19/16 Blood specimen (specimen) BLOOD SPECIMEN / Unknown 02/28/2016 5:44 EDT 02/28/2016 6:13 EDT Beatrice De La Garza NP CHEMISTRY & B LOOD GAS ORDERABLES [facility] [address] [place] [address] * PORTABLE CHEST 1 VIEW (02/27/2016 12:46 [...] 02/27/2016 12:4 1 EDT Narrative [facility] EKG - 02/28/2016 8:57 EDT ? [facility] ? Test Date: ?2016-02-27 Pat Name: ? NABIL IGLESIAS ? Department: ?? [facility] 5 ? Room: ? MW514 Gender: ? M ?Shelter Case Manager: ?? [id number] : ?1940 ? Requested By: KAIN REED L Order Number: [id number] ? Reading MD: ?? BRAYAN CUENCA MD ? Measurements Intervals ?[place] ? Rate: ? 63 ? P: ?15 [...] Date: 2016-02-27 Pat Name: NABIL IGLESIAS Department: [place] [address] Room: [facility] Gender: M Shelter Case Manager: [id number] : 1940 Requested By: KAIN Gallagher Order Number: [id number] Reading MD: BRAYAN CUENCA MD Measurements Intervals [place] Rate: 63 P: 15 CT: 159 QRS: 234 QRSD: 156 T: 15 QT: 479 QTc: 493 Interpretive Statements ELECTRONIC VENTRICULAR PACEMAKER Compared to ECG 02/27/2016 08:10:34 No significant changes I reviewed the tracing and have either agreed or edited the findings inthis report. Electronically Signed On 02-28-16 08:57:02 EDT by BRAYAN BEEBE. Gulshan Drummond MD PhD CARDIA C ECG ORDERABLES [facility] EKG * PROTIME (02/27/2016 8:45 EDT) Pro Time 12.3 10.3 - 13.1 secs 02/27/2016 9:10 EDT [facility] Comment: New prothrombin t josue range effective 01/29/16 I.N.R. 1.1 0.9 - 1.1 Ratio 02/27/2016 9:10 EDT [facility] Comment: Moderate Intensity Coumadin INR = 2.0-3.0 Adjustments in anticoagulant therapy dose should be based upon the INR and NOT the Pro Time. Blood specimen (specimen) BLOOD SPECIMEN / Unknown 02/27/2016 8:45 EDT 02/27/2016 8:54 EDT Gulshan Drummond MD PhD HEMATO LOGY & PF4 ORDERABLES [facility] [address] [place] [address] * HEMAGRAM (02/27/2016 8:45 EDT) WBC 6.47 4.0 - 10.4 K/cmm 02/27/2016 8:57 EDT [facility] RBC 4.51 4.36 - 5.78 M/cmm 02/27/2016 8:57 EDT [facility] Hemoglobin 14.7 13.8 - 17.3 gm/dl 02/27/2016 8:57 EDT [facility] HCT 41.7 39.5 - 50.2 % 02/27/2016 8:57 EDT [facility] MCV 93 81 - 95 fl 02/27/2016 8:57 EDT [facility] MCH 32.6 27.6 - 33.0 pg 02/27/2016 8:57 EDT [facility] MCHC 35.3 32.8 - 36.4 gm/dl 02/27/2016 8:57 T [facility] RDW-CV 13.1 11.8 - 14.1 % 02/27/2016 8:57 EDT [facility] RDW-SD 44.0 36.5 - 45.9 fl 02/27/2016 8:57 EDT [facility] PLT 176 141 - 377 K/cmm 02/27/2016 8:57 EDT [facility] MPV 10.7 9.5 - 12.7 fl 02/27/2016 8:57 EDT [facility] Blood specimen (specimen) BLOOD SPECIMEN / Unknown 02/27/2016 8:45 EDT 02/27/2016 8:54 EDT Gulshan Drummond MD PhD HEMATO LOGY & PF4 ORDERABLES [facility] [address] [place] [address] * ELECTROLYTES (02/27/2016 8:45 EDT) Sodium 142 136 - 145 mEq/L 02/27/2016 9:13 EDT [facility] Potassium 4.7 3.5 - 5.0 mEq/L 02/27/2016 9:13 EDT [facility] Chloride 103 96 - 110 mEq/L 02/27/2016 9:13 EDT [facility] CO2 27 22 - 32 mEq/L 02/27/2016 9:13 EDT [facility] Comment:Note new reference r hong 02/19/16 Blood specimen (specimen) BLOOD SPECIMEN / Unknown 02/27/2016 8:45 EDT 02/27/2016 8:54 EDT Gulshan Drummond MD PhD CHEMIS TRY & BLOOD GAS ORDERABLES Performing Organization Address [facility] de Phone Number [facility] [address] [place] [address] * CREATININE (02/27/2016 8:45 EDT) Creatinine 0.69 0.66 - 1.25 mg/dl 02/27/2016 9:13 EDT [facility] GFR, Calculated 93 >60 ml/min/1.7 3m2 02/27/2016 9:13 EDT [facility] Comment: eGFR calculated using CKD-EPI equation for non Americans. Multiply eGFR by 1.16 for Americans. Blood specimen (specimen) BLOOD SPECIMEN / Unknown 02/27/2016 8:45 EDT 02/27/2016 8:54 EDT Gulshan Drummond MD PhD CHEMIS TRY & BLOOD GAS ORDERABLES Performing Organization Address City/[facility] Co de Phone Number [facility] [address] [place] [address] * BUN (02/27/2016 8:45 EDT) BUN 17 10 - 26 mg/dl 02/27/2016 9:13 EDT [facility] Blood specimen (specimen) BLOOD SPECIMEN / Unknown 02/27/2016 8:45 EDT 02/27/2016 8:54 EDT Gulshan Drummond MD PhD CHEMIS TRY & BLOOD GAS ORDERABLES [facility] [address] [place] [address] * EKG 12-LEAD (02/27/2016 8:08 EDT) 02/27/2016 8:08 EDT Narrative [facility] EKG - 02/28/2016 9:01 EDT ? [facility] ? Test Date: ?2016-02-27 Pat Name: ? NABIL IGLESIAS ? Department: ?? [facility] ? Room: ? TS7447 Gender: ? M ?Shelter Case Manager: ?? [id number] : ?1940 ? Requested By: MARCIA Boo Order Number: [id number] ? Julia WRIGHT: ?? BRAYAN CUENCA MD ? Measurements Intervals ?[place] ? Rate: ? 69 ? P: ?147 [...] Department: [facility] Room: [id number] Gender: M Shelter Case Manager: [id number] : 1940 Requested By: MARCIA Boo Order Number: [id number] Reading MD: BRAYAN CUENCA MD Measurements Intervals [place] Rate: 69 P: 147 CT: 134 QRS: [...] MD CARDIAC ECG ORD ERABLES [facility] EKG documented in this encounter Visit [...] Reason: Other - Comment: pt already took BRICK BURNER, takes other meds at HS) 921 (Given [...] Reason: Other - Comment: pt already took BRICK BURNER, takes other meds at HS)2100 (Given - Provider: Mady Bruno RN) spironolactone (ALDACTONE) tablet 12.5 mg 12.5 mg, oral, DAILY, First dose on Thu02/27/16 at 1245, Until Discontinued, Routine 1306 (Not Given - Provider: Nneka Stuart RN - Reason: Other - Comment: pt already took BRICK BURNER, takes other meds at HS)2102 (Given - Provider: Mady Bruno RN) tamsulosin (FLOMAX) capsule 0.4 mg 0.4 mg, oral, DAILY, First dose on Thu02/27/16 at 1245, Until Discontinued, Routine 1306 (Not Given - Provider: Nneka Stuart RN - Reason: Other - Comment: pt already took BRICK BURNER, takes other meds at HS) 921 (Given [...] 02/02 documented in this encounter Care Teams Retail Event Coordinator Relationship Specialty Start Date End Date Clem Olvera MD [address] [place] [id number] PCP - General 12/18/15 documented as of this encounter
--- OUTSIDE RECORDS SUMMARY | 2024-03-01 08:30 | XMS_ITS | Clinical Summary ---
Author Organization [facility] [place] [address] Care Team Providers Care Supply Controller Name Role Phone Donny Cooper MD Primary Care Provider [phone] Allergies No known active allergies Medications Medication [...] PM EDT Hospital Encounter [place] [address] Discharge Disposition: Home 01/05/2024 Telephone Cardiology at [address] [address] Kanika Shell 12/28/2023 Notes Only Cardiology at [address] [address] Kanika Shell from Last 3 Months Immunizations [...] AM EST Hospital Encounter [place] [phone] Arrived Health Maintenance Due Date Last Done Comments Tetanus/Diphtheria/Pertussis Vaccines (1 - Tdap) 08/19/1959 Zoster vaccine (1 of 2) 1990 Advance Directive 08/19/1995 Pneumoccocal Vaccine: 65+ (2 of 2 - PCV) 05/04/2009 05/04/2008 Covid-19 Vaccine (1 - 2022- season) 2024 Influenza (Flu) vaccine (1 o f 1 - Influenza standard series) 01/03/2024 02/01/2010, 03/06/2006, 02/24/2005 Medical Devices Implanted Type Area Health Administration Teacher Device Identifier Shelf Expiration Date Model / Serial / Lot Mdt : [id number] : [id number] Implanted: (Quantity not on file) Cardiac Resynchronization Therapy - Defibrillator Chest Medtronic - [id number] / [id number] / Care Teams Supply Controller Relationship Specialty Start Date End Date Donny Cooper MD [address] [place] [address] PCP - General Family Medicine 02/25/19
--- OUTSIDE RECORDS SUMMARY | 2024-03-01 08:30 | XMS_ITS | Encounter Summary ---
Author Organization [facility] Address [address] [place] [address] Care Team Providers Care Audit Mgr Name Role Phone Unknown, Provider Primary Care Provider [phone] Clem Olvera MD Primary Care Provider [phone] Encounter Details Date Type Department Care Team (Late st Contact Info) Description 11/29/2015 Pre-Procedure Orders Encounter [facility] [address] [place], [place] [id number] Navdeep Hurd MD [address] [place] [address] [address] Social History Tobacco Use Types [...] Patient: Nabil Streeter. Attending: Dr. Moran Scrrajinder Pediatric Radiologist: Dr. Fantasma Dhillon History/indication: The patient is [...] Patient: Nabil Streeter Attending: Dr. Dean Bailey Pediatric Radiologist: Dr. Fantasma Dhillon History/indication: The patient is [...] filedocumented in this encounter Care Teams Audit Mgr Relationship Specialty Start Date End Date Unknown, Provider, PCP - General 12/06/12 12/17/15 Clem Olvera MD [address] [place] [id number] PCP - General 12/18/15 documented as of this encounter
--- OUTSIDE RECORDS SUMMARY | 2024-03-01 08:30 | XMS_ITS | Encounter Summary ---
Author Organization [facility] Address [address] [place] [address] Care Team Providers Care Electronics Processing Supervisor Name Role Phone Unavailable Primary Care Provider Unavailabl e Encounter Details Date Type Department Care Team (Late st Contact Info) Description 05/06/2001 Results Only [facility] - Maple conversion [address] [place] [address] Hernandez Partida MD [address] [place] [phone] Social History Tobacco Use Types Packs/Day Years [...] entirely in cassette (B). ??(Naty Caal)/[facility] End of Report [facility] 05/06/2001 05/07/2001 9:2 5 EST Hernandez Partida MD PATHOLOGY ORDERABLES [facility] [address] [place] [address] documented in this encounter Visit Diagnoses Not on filedocumented in this encounter
--- OUTSIDE RECORDS SUMMARY | 2024-03-01 08:30 | XMS_ITS | Encounter Summary ---
Author Organization [facility] Address [address] [place] [address] Care Team Providers Care Washerette Machine Operator Name Role Phone Unavailable Primary Care Provider Unavailabl e Encounter Details Date Type Department Care Team (Late st Contact Info) Description 12/02/2012 Results Only [facility] Laboratory Services - [facility] [address] [place] [id number] Satinder Edwards MD [address] [place] [address] Social History Tobacco Use Types Packs/Day Years [...] ? NABIL IGLESIAS ? Accession #: ? [id number] ? : ? 1940 (Age: 72) ??M [...] MD PATHOLOGY ORDERABLE S Performing Organization Address City/State/[facility] Co de Phone Number [facility] [address] [place] [address] documented in this encounter Visit Diagnoses Not on filedocumented in this encounter
--- OUTSIDE RECORDS SUMMARY | 2024-03-01 08:30 | XMS_ITS | Referral Summary ---
Author Organization [facility] Address [address] [place] [address] Care Team Providers Care Inorganic Chemical Technician Name Role Phone Clem Olvera MD Primary Care Provider [phone] Allergies No known active allergies Medications Medication [...] Advance Directives For more information, please contact: [phone] * Full Code (Latest Code Status on File) Date Activated Date Inactivated Comments 02/27/2016 8:49 02/28/2016 15:40 Question Answer Comments Reason for decision includes: Full code consistent with overall plan of care Who participated in the discussion? Not Discusse d Care Teams Inorganic Chemical Technician Relationship Specialty Start Date End Date Clem Olvera MD [address] [place] [id number] PCP - General 12/18/15
--- OUTSIDE RECORDS SUMMARY | 2024-03-01 08:30 | XMS_ITS | Encounter Summary ---
Author Organization [facility] Address [address] [place] [address] Care Team Providers Care College Associate Name Role Phone Clem Olvera MD Primary Care Provider [phone] Encounter Details Date Type Department Care Team (Latest Contact Info) Description 12/20/2015 10:52 EDT - 12/20/2015 23:52 EDT Hospital Encounter [facility] Cardiovascular Unit [address] [place] [address] Navdeep Hurd MD [address] [place] [address] [phone] Discharge Disposition: Home or Self [...] need to beNPO or have a driver guide. However, his will be accompanying him. They are driving someone to the airport [place] 1000 and then will come here and check-in around 1145. He agrees to have a shower. documented in this encounter Procedure Notes * Fantasma Dhillon MD - 12/20/2015 1356 EDT IR Brief Procedure Note Attending: Leo Tunnel Miner: Alejo Pre-op Dx: Arrhythmia, need for pacemaker [...] 12/19 documented in this encounter Care Teams College Associate Relationship Specialty Start Date End Date Clem Olvera MD [address] [place] [address] PCP - General 12/18/15 documented as of this encounter
--- OUTSIDE RECORDS SUMMARY | 2024-03-01 08:30 | XMS_ITS | Encounter Summary ---
Author Organization [facility] Address [address] [place] [address] Care Team Providers Care Client Service Representative Name Role Phone Clem Olvera MD Primary Care Provider [phone] Reason for Visit * Reason Onset Date Comments Other 04/04/2019 Transfer request for Pacer [facility] Encounter Details Date Type Department Care Team (Late st Contact Info) Description 04/04/2019 Telephone [facility] Cardiology Clinic [address] [place] [address] Giselle Hill, OPERATIONS VOCATIONAL INSTRUCTOR Other (Transfer request for Pacer Care at [...] 04/04/2019 1503 EST I went into the [employer] Website and [facility] filedocumented in this encounter Care Teams Client Service Representative Relationship Specialty Start Date End Date Clem Olvera MD [address] [place] [address] PCP - General 12/18/15 documented as of this encounter
--- OUTSIDE RECORDS SUMMARY | 2024-03-01 08:30 | XMS_ITS | Clinical Summary ---
Author Organization [facility] Address [address] [place] [address] Care Team Providers Care Statistical Typist Name Role Phone Clem Olvera MD Primary Care Provider [phone] Allergies No known active allergies Medications Medication [...] PACEMAKER INSERTION 05/04/2002 - 05/03/20032013 second pacemaker [facility] Medical History Medical History Date Comments [...] Advance Directives For more information, please contact: [phone] * Full Code (Latest Code Status on File) Date Activated Date Inactivated Comments 02/27/2016 8:49 02/28/2016 15:40 Question Answer Comments Reason for decision includes: Full code consistent with overall plan of care Who participated in the discussion? Not Discusse d Care Teams Statistical Typist Relationship Specialty Start Date End Date Clem Olvera MD [address] [place] [address] PCP - General 12/18/15
--- OUTSIDE RECORDS SUMMARY | 2024-03-01 08:30 | XMS_ITS | Encounter Summary ---
Author Organization [facility] Address [address] [place] [address] Care Team Providers Care Parachute Crown Sewer Name Role Phone Clem Olvera MD Primary Care Provider [phone] Reason for Visit * Reason Onset Date Comments Appointment Related 10/23/2016 Check for fo llow up of pacer Encounter Details Date Type Department Care Team ([facility] Contact Info) Description 10/23/2016 Telephone [facility] Cardiology - [address] [place] [address] Pacemaker, Pace Appointment Related (Check [...] being followed by Dr. Hurd at [facility]. documented in this encounter Plan of Treatment Not on file documented as of this encounter Visit Diagnoses Not on filedocumented in this encounter Care Teams Parachute Crown Sewer Relationship Specialty Start Date End Date Clem Olvera MD [address] [place] [address] PCP - General 12/18/15 documented as of this encounter
--- OUTSIDE RECORDS SUMMARY | 2024-03-01 08:30 | XMS_ITS | Encounter Summary ---
Author Organization [facility] Address [address] [place] [address] Care Team Providers Care Neuroscientist Name Role Phone Clem Olvera MD Primary Care Provider [phone] Encounter Details Date Type Department Care Team (Late st Contact Info) Description 03/16/2019 Abstract [facility] [address] [place] [address] Ronal Avelar, JADON AV block, 2nd degree [...] Modality Device Narrative 03/24/2019 10:30 EST [facility] Device Visit Tribunal Member: [employer] Device Type: TECHNICAL ASST-D Service: Remote ? 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
--- OUTSIDE RECORDS SUMMARY | 2024-03-01 08:30 | XMS_ITS | Encounter Summary ---
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 Procedures IMPLANTABLE CARDIAC DEFIBRILLATOR PROCEDURE Navdeep Hurd MD [address] [place], [place] [address] [address] [place] [address] Referral ID Status Reason Start Date Expiration Date Visits Re quested Visits Authorized [id number] Closed 02/13/2016 1 1 Encounter Details Date Type Department Care Team (Latest Contact Info) Description 02/13/2016 Pre-Procedure Orders Encounter [facility] CARDIOLOGY [address] [place], [place] [address] [facility]urd [facility] [address] [facility] [address] [place] [address] ICD (implantable cardioverter-defibril lator) battery [...] EDT Narrative 02/27/2016 15:17 EDT *Cardiology* [address] [place] [address] Lead Revision (Report amended ) Patient: Nabil Iglesias ?Study Date: ?02/27/2016 ? Accession #: ? [id number] : ? 1940 Referring: Clem Olvera Attending: [...] 0.35 glide wire a Nick MENDOZAW 6F ([facility]) 6 mm-40 mm balloon dilation still [...] Venograms were performed in the MOORE and MACEDONIAN projections and a suitable mid-lateral LV branch [...] fascia. The leads were connected to a CEREAL POPPER-D device. Device and Lead detail in table [...] Implanted device: Medtronic - Viva Quad XT CEREAL POPPER-D DF4 - Serial number: [id number] Explanted device: Medtronic - Viva XT CEREAL POPPER-D DF4 - Serial number: [id number]. LEAD PARAMETERS + + + + + + Lead # ? 1 ? 2 ? 3 ? 4 ? + + + + + + Chamber ? RA ? RV ? LV ? LV ? + + + + + + Date ? 07/19/2002 ?? 07/18/2013 ?? 02/27/2016 ? 07/18/2013 ? implanted ? + + + + + + Model ? St. Sea ? Medtronic ? Medtronic ? Enpath ? information ?? 1488 ? 6947M ? Attain ? Epicardial ? Performa 4298 ? + + + + + + Serial number [id number] ? [id number] ?? [id number] ?? [id number] ? + + + + [...] status is indicated. ?Electronically signed by Gulshan Drummnod MD, PhD 05/12/2016 15:31 Procedure Note Gulshan Drummond MD - 05/12/2016 *Cardiology* [address] [place] [address] Lead Revision (Report amended ) Patient: Nabil [...] therefore over an 0.35 glide wire [facility]) 6 mm-40 mm balloon dilation still [...] Venograms were performed in the MOORE and MACEDONIAN projections and a suitable mid-lateral LV branch [...] fascia. The leads were connected to a CEREAL POPPER-D device. Device and Lead detail in table [...] Implanted device: Medtronic - Viva Quad XT CEREAL POPPER-D DF4 - Serial number: [id number] Explanted device: Medtronic - Viva XT CEREAL POPPER-D DF4 - Serial number: [id number]. LEAD PARAMETERS + + + + + + Lead # 1 2 3 4 + + + + + + Chamber RA RV LV LV + + + + + + Date 07/19/2002 07/18/2013 02/27/2016 07/18/2013 implanted + + + + + + Model St. Esa Medtronic Medtronic Enpath information 2808 [id number] Attain Epicardial Performa 4298 + + + + + + Serial number [id number] + + + + + + [...] situ documented in this encounter Care Teams Beam Machine Operator Relationship Specialty Start Date End Date Clem Olvera MD [address] [place] [address] PCP - General 12/18/15 documented as of this encounter
--- OUTSIDE RECORDS SUMMARY | 2024-03-01 08:31 | XMS_ITS | Encounter Summary ---
[place] [address] Care Team Providers Care Pantry Steward/Stewardess Name Role Phone Donny Cooper MD Primary Care Provider [phone] Encounter Details Date Type Department Care Team (Late st Contact Info) Description 06/14/2020 Telephone Cardiology at [address] [phone] Nhung Briggs Social History Tobacco Use Types [...] He would like to be seen at [facility]. Email sent to Brittaney Hernandez at [facility] asking her to reach out to pt to set up the appt with either Dr. Arguelles or LANG Albert. Nhung Allen Electrophysiology Scheduling [id number] option 2 documented in this encounter Plan of Treatment Upcoming Encounters Date Type Department Care Team (Late st Contact Info) Description 05/02/2024 10:00 AM EST Hospital Encounter Non[place] [address] Arrived documented as of this encounter Visit Diagnoses Not on filedocumented in this encounter Care Teams Pantry Steward/Stewardess Relationship Specialty Start Date End Date Donny Cooper MD [address] [place] [address] PCP - General Family Medicine 02/25/19 documented as of this encounter
--- OUTSIDE RECORDS SUMMARY | 2024-03-01 08:31 | XMS_ITS | Encounter Summary ---
[place] [address] Care Team Providers Care Dryland Farmer Name Role Phone Donny Cooper MD Primary Care Provider [phone] Encounter Details Date Type Department Care Team (Latest Contact Info) Description 02/02/2024 10:00 AM EDT - 02/02/2024 11:59 PM EDT Hospital Encounter Non-[place] [address] Discharge Disposition: Home Social History Tobacco Use [...] [facility] Hospital Encounter Non-[place] [address] Arrived documented as of this encounter Visit Diagnoses Not on filedocumented in this encounter Care Teams Dryland Farmer Relationship Specialty Start Date End Date Donny Cooper MD [address] [place] [address] PCP - General Family Medicine 02/25/19 documented as of this encounter
--- OUTSIDE RECORDS SUMMARY | 2024-03-01 08:31 | XMS_ITS | Encounter Summary ---
Author Organization [facility] [place] [address] Care Team Providers Care Agent Based Modeler Name Role Phone Donny Cooper MD Primary Care Provider [phone] Encounter Details Date Type Department Care Team (Latest Contact Info) Description 06/13/2020 12:35 PM EST - 06/13/2020 11:59 PM EST Hospital Encounter Non-Invasive [place] [address] Alber Seals MD [facility] [place] [address] Cardiomyopathy, primary Discharge Disposition: Home Social History [...] AM EST Hospital Encounter Non-Invasive [place] [address] Arrived documented as of this encounter Procedures Procedure Name Priority Date/Time Associated Diagnosis Comments ICD INTERROGATION 3 MONTH Routine 06/13/2020 12:36 PM EST Cardiomyopathy, primary documented in this encounter Results * ICD INTERROGATION 3 MONTH (06/13/2020 12:36 PM EST) Anatomical Region Laterality Modality Other Narrative 06/14/2020 10:38 AM EST Cardiac Device Remote Monitoring Report Summary Medtronic SMCpros 06/14/20 Device: ELECTRICAL APPLIANCE MECHANIC-D Model: VIVA QUAD Battery: 2.96 v, estimated longevity 3 years, 11 months Pacing percentage: 78% ventricular paced Events: The presenting rhythm is atrial paced with biventricular pacing and frequent ventricular premature contractions No significant arrhythmias Impression Normal device function; suboptimal ELECTRICAL APPLIANCE MECHANIC pacing likely secondary to frequent PVCs. Should consider in clinic follow-up for further evaluation Follow Up As per schedule - in-clinic and remote ALBER SEALS MD Alber Seals MD IMPLANTABLE CARDIAC DEVICE documented in this encounter Visit Diagnoses Diagnosis Cardiomyopathy, primary Other primary cardiomyopathies documented in this encounter Care Teams Agent Based Modeler Relationship Specialty Start Date End Date Donny Cooper MD [address] [place] [address] PCP - General Family Medicine 02/25/19 documented as of this encounter
--- OUTSIDE RECORDS SUMMARY | 2024-03-01 08:31 | XMS_ITS | Encounter Summary ---
[place] [address] Care Team Providers Care Dry Room Attendant Name Role Phone Donny Cooper MD Primary Care Provider [phone] Encounter Details Date Type Department Care Team (Latest Contact Info) Description 04/08/2022 10:00 AM EST - 04/08/2022 11:59 PM [facility] Hospital Encounter Non-Invasive [place] [address] Discharge Disposition: Home Social History Tobacco Use [...] AM EST Hospital Encounter Non-Invasive [place] [address] Arrived documented as of this [...] on filedocumented in this encounter Care Teams Dry Room Attendant Relationship Specialty Start Date End Date Donny Cooper MD [address] [place] [address] PCP - General Family Medicine 02/25/19 documented as of this encounter
--- OUTSIDE RECORDS SUMMARY | 2024-03-01 08:31 | XMS_ITS | Encounter Summary ---
[place] [address] Care Team Providers Care Stone Decorator Name Role Phone Marques Martinez MD Primary Care Provider [phone] Encounter Details Date Type Department Care Team (Late st Contact Info) Description 10/03/2010 Abstract [place] [address] Marina Orosco, JADON Social History Tobacco Use [...] Description 05/02/2024 10:[address] [facility] Hospital Encounter [place] [address] Arrived documented as of this encounter Visit Diagnoses Not on filedocumented in this encounter Care Teams Stone Decorator Relationship Specialty Start Date End Date Marques Martinez MD [address] [place] [address] PCP - General 04/01/10 04/08/11 documented as of this encounter
--- OUTSIDE RECORDS SUMMARY | 2024-03-01 08:31 | XMS_ITS | Encounter Summary ---
[place] [address] Care Team Providers Care Financial Reporting Consultant Name Role Phone Donny Cooper MD Primary Care Provider [phone] Encounter Details Date Type Department Care Team (Latest Contact Info) Description 01/03/2023 10:00 AM EDT - 01/03/2023 11:59 PM EDT Hospital Encounter [place] [address] Discharge Disposition: Home Social History Tobacco Use [...] Contact Info) Description 05/02/2024 10:00 AM [facility] Hospital Encounter Non-[place] [address] Arrived documented as of this [...] filedocumented in this encounter Care Teams Financial Reporting Consultant Relationship Specialty Start Date End Date Donny Cooper MD [address] [place] [address] PCP - General Family Medicine 02/25/19 documented as of this encounter
--- OUTSIDE RECORDS SUMMARY | 2024-03-01 08:31 | XMS_ITS | Encounter Summary ---
[place] [address] Care Team Providers Care Senior Clinical Project Manager Name Role Phone Donny Cooper MD Primary Care Provider [phone] Encounter Details Date Type Department Care Team (Late st Contact Info) Description 01/05/2024 Telephone Cardiology at [address] [address] Kanika Shell Social History Tobacco [...] AM EST Hospital Encounter Non-[place] [address] Arrived documented as of this encounter Visit Diagnoses Not on filedocumented in this encounter Care Teams Senior Clinical Project Manager Relationship Specialty Start Date End Date Donny Cooper MD [address] [place] [address] PCP - General Family Medicine 02/25/19 documented as of this encounter
--- OUTSIDE RECORDS SUMMARY | 2024-03-01 08:31 | XMS_ITS | Encounter Summary ---
Author [facility] [place] [address] Care Team Providers Care Drug Abuse Technician Name Role Phone Marques Martinez MD Primary Care Provider [phone] Encounter Details Date Type Department Care Team (Late st Contact Info) Description 03/30/2010 [place] [address] Javier Barajas MD [facility] [place] [address] Social History Tobacco Use Types Packs/Day Years [...] AM EST Hospital Encounter [place] [address] Arrived documented as of this encounter Procedures [...] AM EST 04/01/2010 6:09 AM EST Jairon Fetnon MD CHEMISTRY ORDERABLES Performing Organization Address [facility] de Phone Number CERNER CHRISTOSENNIUM * BUN (04/01/2010 6:09 AM EST) Blood Urea Nitrogen 12 10 - 20 mg/dL CERNER MILLENNIUM Blood specimen (specimen) 04/01/2010 6:09 AM EST 04/01/2010 6:09 AM EST Jairon Fenton MD CHEMISTRY ORDERABLES Performing Organization Address [facility] de Phone Number CERNER CHRISTOSENNIUM [...] MD HEMATOLOGY ORDERABLE S Performing Organization Address [facility] de Phone Number CERIVIS MILLENNIUM * [...] Fenton MD CHEMISTRY ORDERABLES Performing Organization Address [facility] Phone Number CERIVIS MILLENNIUM * ELECTROLYTE [...] Fenton MD CHEMISTRY ORDERABLES Performing Organization Address [facility] Co de Phone Number CERIVSI MILLENNIUM * CREATININE, SERUM (03/30/2010 6:05 PM EST) Creatinine 0.87 0.80 - 1.50 mg/dL [facility] Est Glomerular Filtration Rate >60 >=60 [facility] Comment: The National Kidney Disease [...] Urea Nitrogen 18 10 - 20 mg/dL [facility] Blood specimen (specimen) 03/30/2010 6:05 PM EST 03/30/2010 6:13 PM EST Jairon Fenton MD CHEMISTRY ORDERABLES Performing Organization Address [facility] de Phone Number DEJA MOSQUEDAIUM * APTT (03/30/2010 6:05 PM EST) Partial Thromboplastin Time 26 25 - 37 sec CERNER MILLENNIUM Comment: Recommended therapeutic PTT range for full dose unfractionated heparin is 80-114 seconds. Blood specimen (specimen) 03/30/2010 6:05 PM EST 03/30/2010 6:14 PM EST Jairon Fenton MD HEMATOLOGY ORDERABLE S Performing Organization Address [facility] Phone Number DEJA SEGOVIA * PROTIME-INR (03/30/2010 6:05 PM EST) Prothrombin Time 14.2 12.3 - 14.7 sec [facility] Comment: [facility] Transfusion Committee Guidelines: INR less than 2.0, PTT less than OR equal to 43.5 seconds, or Fibrinogen greater than or equal to 100 mg/dl indicate adequate procoagulant activity for hemostasis in patients without underlying bleeding disorders. International Normalization Ratio 1.1 0.9 - 1.1 [facility] Blood specimen (specimen) 03/30/2010 6:05 PM EST 03/30/2010 6:14 PM EST Jairon Fenton MD HEMATOLOGY ORDERABLE S Performing Organization Address [facility] de Phone Number DEJA SEGOVIA [...] Standard Deviation 44.2 35.0 - 46.0 fL [facility] RDW coefficient of variation 13.1 10.9 - 14.4 % [facility] Mean Platelet Volume 10.6 9.0 - 12.0 fL [facility] Blood specimen (specimen) 03/30/2010 6:05 PM EST 03/30/2010 6:13 PM EST Jairon Fenton MD HEMATOLOGY ORDERABLE S Performing Organization Address City/[facility] Co de Phone Number [facility] * REFLEX LAB-ANTIBODY SCREEN (03/30/2010 3:17 PM EST) [facility] Ab Screen Interp Negative [facility] Expires at [id number] on: [id number] [facility] Blood specimen (specimen) 03/30/2010 3:17 PM EST 03/30/2010 3:17 PM EST Javier Barajas MD BLOOD BANK LAB ORDER PRECIOUS Performing Organization Address [facility] Co de Phone Number [facility] * REFLEX LAB-ABO/RH (03/30/2010 3:17 PM EST) [facility] ABORH Type A Pos [facility] Blood specimen (specimen) 03/30/2010 3:17 PM EST 03/30/2010 3:17 PM EST Javier Barajas MD BLOOD BANK LAB ORDER PRECIOUS Performing Organization Address [facility] Co de Phone Number [facility] * ELECTROLYTE PANEL (03/30/2010 2:50 PM EST) [facility] Sodium 135 135 - 145 mmol/L [facility] Potassium 4.3 3.5 - 5.0 mmol/L [facility] Comment: Please note: ??Patients with WBC [...] PM EST Javier Barajas MD CHEMISTRY ORDERABLES [facility] * CREATININE, SERUM (03/30/2010 2:50 [...] Barajas MD CHEMISTRY ORDERABLES Performing Organization Address [facility] Phone Number [facility] * BUN (03/30/2010 2:50 PM EST) Blood Urea Nitrogen 18 10 - 20 mg/dL [facility] Blood specimen (specimen) 03/30/2010 2:50 PM EST 03/30/2010 3:05 PM EST Javier Barajas MD CHEMISTRY ORDERABLES Performing Organization Address [facility] Phone Number [facility] * GLUCOSE, RANDOM (03/30/2010 2:50 PM EST) Glucose 95 <=199 mg/dL [facility] Comment:Diabetes: >=200 mg/d L plus symptoms Blood specimen (specimen) 03/30/2010 2:50 PM EST 03/30/2010 3:05 PM EST aJvier Barajas MD CHEMISTRY ORDERABLES Performing Organization Address [facility] Phone Number [facility] * APTT (03/30/2010 2:50 PM EST) Partial Thromboplastin Time 25 25 - 37 sec [facility] Comment: Recommended therapeutic PTT range for full dose unfractionated heparin is 80-114 seconds. Blood specimen (specimen) 03/30/2010 2:50 PM EST 03/30/2010 3:06 PM EST Javier Barajas MD HEMATOLOGY ORDERABLE S Performing Organization Address [facility] Phone Number [facility] * PROTIME-INR (03/30/2010 2:50 PM EST) Prothrombin Time 14.1 12.3 - 14.7 sec [facility] Comment: [facility] Transfusion [...] on filedocumented in this encounter Care Teams Drug Abuse Technician Relationship Specialty Start Date End Date Marques Martinez MD [address] [place] [address] PCP - General 04/01/10 04/08/11 documented as of this encounter
--- OUTSIDE RECORDS SUMMARY | 2024-03-01 08:31 | XMS_ITS | Encounter Summary ---
Author Organization [facility] [place] [address] Care Team Providers Care Branch Library Clerk Name Role Phone Marques Martinez MD Primary Care Provider [phone] Reason for Visit * Reason Comments Follow Up Fracture PATELLA FX DOI 03/23 10 Encounter Details Date Type Department Care Team (Late st Contact Info) Description 10/09/2010 12:40 PM EDT Office [place] [address] Jairon Gustafson MD [facility] [place] [address] Jose Francisco Bee PA [facility] [place] [address] Quadriceps tendon rupture (Primary Dx) Discharge Disposition: [...] [facility] Hospital Encounter [place] [address] Arrived documented as of this encounter Visit Diagnoses Diagnosis Quadriceps tendon rupture- Primary Sprain and strain of other specified sites of knee and leg documented in this encounter Care Teams Branch Library Clerk Relationship Specialty Start Date End Date Marques Martinez MD [address] [place] [address] PCP - General 04/01/10 04/08/11 documented as of this encounter
--- OUTSIDE RECORDS SUMMARY | 2024-03-01 08:31 | XMS_ITS | Encounter Summary ---
Author Organization [facility] [place] [address] Care Team Providers Care Core Fitter Name Role Phone Marques Martinez MD Primary Care Provider [phone] Encounter Details Date Type Department Care Team (Late st Contact Info) Description 05/01/2010 3:10 PM EST Office [place] [address] Jairon Fenton MD [facility] [place] [address] Discharge Disposition: Home Social History Tobacco Use [...] AM EST Hospital Encounter Non[place] [address] Arrived documented as of this encounter Visit Diagnoses Not on filedocumented in this encounter Care Teams Core Fitter Relationship Specialty Start Date End Date Marques Martinez MD [address] [place] [address] PCP - General 04/01/10 04/08/11 documented as of this encounter
--- OUTSIDE RECORDS SUMMARY | 2024-03-01 08:31 | XMS_ITS | Encounter Summary ---
[place] [address] Care Team Providers Care Skoog Machine Operator Name Role Phone Donny Cooper MD Primary Care Provider [phone] Encounter Details Date Type Department Care Team (Late st Contact Info) Description 12/28/2023 Notes Only Cardiology at [address] [phone] Kanika Shell Social History Tobacco Use Types [...] [facility] Hospital Encounter Non-[place] [address] Arrived documented as of this encounter Visit Diagnoses Not on filedocumented in this encounter Care Teams Skoog Machine Operator Relationship Specialty Start Date End Date Donny Cooper MD [address] [place] [address] PCP - General Family Medicine 02/25/19 documented as of this encounter
--- OUTSIDE RECORDS SUMMARY | 2024-03-01 08:31 | XMS_ITS | Encounter Summary ---
[place] [address] Care Team Providers Care Mailroom Coordinator Name Role Phone Donny Cooper MD Primary Care Provider [phone] Encounter Details Date Type Department Care Team (Latest Contact Info) Description 10/05/2022 10:00 AM EDT - 10/05/2022 11:59 PM EDT Hospital Encounter [place] [address] Discharge Disposition: Home Social History Tobacco Use [...] Contact Info) Description 05/02/2024 10:00 AM [facility] Hospital Encounter [place] [address] Arrived documented as of this [...] on filedocumented in this encounter Care Teams Mailroom Coordinator Relationship Specialty Start Date End Date Donny Cooper MD [address] [place] [address] PCP - General Family Medicine 02/25/19 documented as of this encounter
--- OUTSIDE RECORDS SUMMARY | 2024-03-01 08:31 | XMS_ITS | Encounter Summary ---
[place] [address] Care Team Providers Care Speech Professor Name Role Phone Donny Cooper MD Primary Care Provider [phone] Encounter Details Date Type Department Care Team (Latest Contact Info) Description 07/02/2023 10:00 AM EST - 07/02/2023 11:59 PM [facility] Hospital Encounter Non-Invasive [place] [address] Discharge Disposition: Home Social History Tobacco Use [...] AM [facility] Hospital Encounter Non-Invasive [place] [address] Arrived documented as of this encounter Visit Diagnoses Not on filedocumented in this encounter Care Teams Speech Professor Relationship Specialty Start Date End Date Donny Cooper MD [address] [place] [address] PCP - General Family Medicine 02/25/19 documented as of this encounter
--- OUTSIDE RECORDS SUMMARY | 2024-03-01 08:31 | XMS_ITS | Encounter Summary ---
[place] [address] Care Team Providers Care Lead Handler Name Role Phone Marques Martinez MD Primary Care Provider [phone] Encounter Details Date Type Department Care Team (Late st Contact Info) Description 06/12/2010 2:00 PM EST Procedure visit [place] [address] Social History Tobacco Use Types Packs/Day Years [...] AM EST Hospital Encounter Non-[place] [address] Arrived documented as of this encounter Visit Diagnoses Not on filedocumented in this encounter Care Teams Lead Handler Relationship Specialty Start Date End Date Marques Martinez MD [address] [place] [address] PCP - General 04/01/10 04/08/11 documented as of this encounter
--- OUTSIDE RECORDS SUMMARY | 2024-03-01 08:31 | XMS_ITS | Encounter Summary ---
Author Organization [facility] [place] [address] Care Team Providers Care Film Drying Machine Operator Name Role Phone Clem Olvera MD Primary Care Provider [phone] Reason for Visit * Reason Comments Follow Up Fracture SP PATELLA FX DO12/12 DOI 03/30/10 Encounter Details Date Type Department Care Team (Late st Contact Info) Description 04/09/2011 1:30 PM EST Office [place] [address] Jairon Gustafson MD [facility] [place] [address] Jose Francisco Bee PA [facility] [place] [address] Patella fracture (Primary Dx) Discharge Disposition: Home [...] AM EST Hospital Encounter Non-[place]vasive [place] [address] Arrived documented as of this encounter Visit Diagnoses Diagnosis Patella fracture- Primary Closed fracture of patella documented in this encounter Care Teams Film Drying Machine Operator Relationship Specialty Start Date End Date Clem Olvera MD [address] [place] [address] PCP - General 04/09/11 02/24/19 documented as of this encounter
--- OUTSIDE RECORDS SUMMARY | 2024-03-01 08:31 | XMS_ITS | Encounter Summary ---
[facility] [place] [address] Care Team Providers Care Data Lead Name Role Phone Marques Martinez MD Primary Care Provider Encounter Details Date Type Department Care Team (Late st Contact Info) Description 09/11/2010 Orders [place] [address] Jairon Fenton MD [facility] DR [place] [address] Fracture of patella, left, closed (Primary Dx) [...] [facility] Hospital Encounter Non-Invasive [place] [address] Arrived documented as of this encounter Visit Diagnoses Diagnosis Fracture of patella, left, closed- Primary Closed fracture of patella documented in this encounter Care Teams Data Lead Relationship Specialty Start Date End Date Marques Martinez MD [address] [place] [address] PCP - General 04/01/10 04/08/11 documented as of this encounter
--- OUTSIDE RECORDS SUMMARY | 2024-03-01 08:31 | XMS_ITS | Encounter Summary ---
Author Organization [facility] [place] [address] Care Team Providers Care Postbed Stitcher Name Role Phone Marques Martinez MD Primary Care Provider [phone] Encounter Details Date Type Department Care Team (Late st Contact Info) Description 10/09/2010 11:35 AM EDT - 10/09/2010 11:59 PM EDT Hospital Encounter XRay at [address] [place] [address] Social History Tobacco Use Types [...] AM EST Hospital Encounter Non-Invasive Cardiology Lab [facility] [place] [address] Arrived documented as of this encounter Visit Diagnoses Not on filedocumented in this encounter Care Teams Postbed Stitcher Relationship Specialty Start Date End Date Marques Martinez MD [address] [place] [address] PCP - General 04/01/10 04/08/11 documented as of this encounter
--- OUTSIDE RECORDS SUMMARY | 2024-03-01 08:31 | XMS_ITS | Encounter Summary ---
Author Organization [facility] [place] [address] Care Team Providers Care Supervisor Chlorine Liquefaction Name Role Phone Donny Cooper MD Primary Care Provider [phone] Encounter Details Date Type Department Care Team (Latest Contact Info) Description 12/18/2020 11:57 AM EDT - 12/18/2020 11:59 PM EDT Hospital Encounter [place] [address] Maged Arguelles MD [facility] [place] [address] Cardiomyopathy, primary Discharge Disposition: Home Social History [...] AM EST Hospital Encounter Non[place] [address] Arrived documented as of this encounter Procedures Procedure Name Priority Date/Time Associated Diagnosis Comments ICD INTERROGATION 3 MONTH Routine 12/18/2020 12:00 PM EDT Cardiomyopathy, primary documented in this encounter Results * ICD INTERROGATION 3 MONTH (12/18/2020 12:00 PM EDT) Anatomical Region Laterality Modality Other Narrative 12/23/2020 11:08 PM EDT MDT LINEN GRADER-D remote reviewed. Normal device function. Inadequate LINEN GRADER at 80%. Maged Arguelles MD [facility] Cardiac Electrophysiology 12/23/2020 11:06 PM Maged Arguelles MD IMPLANTABLE CARDIAC DEVICE documented in this encounter Visit Diagnoses Diagnosis Cardiomyopathy, primary Other primary cardiomyopathies documented in this encounter Care Teams Supervisor Chlorine Liquefaction Relationship Specialty Start Date End Date Donny Cooper MD [address] [facility] [place] [address] PCP - General Family Medicine 02/25/19 documented as of this encounter
--- OUTSIDE RECORDS SUMMARY | 2024-03-01 08:31 | XMS_ITS | Encounter Summary ---
[place] [address] Care Team Providers Care Angle Dozer Operator Name Role Phone Marques Martinez MD Primary Care Provider [phone] Encounter Details Date Type Department Care Team (Late st Contact Info) Description 05/01/2010 2:40 PM EST Procedure visit [place] [address] Social History Tobacco Use Types Packs/Day Years [...] AM EST Hospital Encounter Non[place] [address] Arrived documented as of this encounter Visit Diagnoses Not on filedocumented in this encounter Care Teams Angle Dozer Operator Relationship Specialty Start Date End Date Marques Martinez MD [address] [place] [address] PCP - General 04/01/10 04/08/11 documented as of this encounter
--- OUTSIDE RECORDS SUMMARY | 2024-03-01 08:31 | XMS_ITS | Encounter Summary ---
[place] [address] Care Team Providers Care Production Support Specialist Name Role Phone Donny Cooper MD Primary Care Provider [phone] Encounter Details Date Type Department Care Team (Latest Contact Info) Description 08/06/2023 10:00 AM EDT - 08/06/2023 11:59 PM EDT Hospital Encounter Non-[place]vasive [place] [address] Discharge Disposition: Home Social History Tobacco Use [...] [facility] Hospital Encounter Non-In[place] [address] Arrived documented as of this encounter Visit Diagnoses Not on filedocumented in this encounter Care Teams Production Support Specialist Relationship Specialty Start Date End Date Donny Cooper MD [address] [place] [address] PCP - General Family Medicine 02/25/19 documented as of this encounter
--- OUTSIDE RECORDS SUMMARY | 2024-03-01 08:31 | XMS_ITS | Encounter Summary ---
Author Organization [facility] [address] [address] Care Team Providers Care Aircraft Fueler Name Role Phone Donny Cooper MD Primary Care Provider [phone] Encounter Details Date Type Department Care Team (Latest Contact Info) Description 06/25/2021 3:23 PM EST - 06/25/2021 11:59 PM EST Hospital Encounter Non[place] [address] Alber Seals MD [facility] [place] [address] Cardiomyopathy, primary Discharge Disposition: Home Social History [...] AM EST Hospital Encounter Non-[place] [address] Arrived documented as of this encounter Procedures Procedure Name Priority Date/Time Associated Diagnosis Comments ICD INTERROGATION 3 MONTH Routine 06/25/2021 3:24 PM EST Cardiomyopathy, primary documented in this encounter Results * ICD INTERROGATION 3 MONTH (06/25/2021 3:24 PM EST) Anatomical Region Laterality Modality Other Narrative 06/25/2021 3:42 PM EST Cardiac Device Remote Monitoring Report Summary Medtronic Carelink Device: MANAGER WOUND CARE-D Model: VIVA QUAD Battery: 2.95 v, estimated longevity 2 years 6 months Pacing percentage: 90% MANAGER WOUND CARE paced Events: Presenting rhythm: atrial paced/biventricular paced Frequent PVC's Impression Normal device function Follow Up As per schedule - in-clinic and remote ALBER SEALS MD 06/25/21 Alber Seals MD IMPLANTABLE CARDIAC DEVICE documented in this encounter Visit Diagnoses Diagnosis Cardiomyopathy, primary Other primary cardiomyopathies documented in this encounter Care Teams Aircraft Fueler Relationship Specialty Start Date End Date Donny Cooper MD [address] [place] [address] PCP - General Family Medicine 02/25/19 documented as of this encounter
--- OUTSIDE RECORDS SUMMARY | 2024-03-01 08:31 | XMS_ITS | Encounter Summary ---
[place] [address] Care Team Providers Care Lineworker Name Role Phone Donny Cooper MD Primary Care Provider [phone] Encounter Details Date Type Department Care Team (Latest Contact Info) Description 11/04/2023 10:00 AM EDT - 11/04/2023 11:59 PM EDT Hospital Encounter [place] [address] Discharge Disposition: Home Social History Tobacco Use [...] [facility] Hospital Encounter [place] [address] Arrived documented as of this [...] on filedocumented in this encounter Care Teams Lineworker Relationship Specialty Start Date End Date Donny Cooper MD [address] [place] [address] PCP - General Family Medicine 02/25/19 documented as of this encounter
--- OUTSIDE RECORDS SUMMARY | 2024-03-01 08:31 | XMS_ITS | Encounter Summary ---
[place] [address] Care Team Providers Care Software Trainer Name Role Phone Donny Cooper MD Primary Care Provider [phone] Encounter Details Date Type Department Care Team (Latest Contact Info) Description 07/07/2022 10:00 AM EST - 07/07/2022 11:59 PM EST Hospital Encounter [place] [address] Discharge Disposition: Home Social History Tobacco Use [...] AM EST Hospital Encounter Non-[place] [address] Arrived documented as of this [...] on filedocumented in this encounter Care Teams Software Trainer Relationship Specialty Start Date End Date Donny Cooper MD [address] [place] [address] PCP - General Family Medicine 02/25/19 documented as of this encounter
--- OUTSIDE RECORDS SUMMARY | 2024-03-01 08:31 | XMS_ITS | Encounter Summary ---
[place] [address] Care Team Providers Care Field Support Engineer Name Role Phone Donny Cooper MD Primary Care Provider [phone] Encounter Details Date Type Department Care Team (Latest Contact Info) Description 04/03/2023 10:00 AM EST - 04/03/2023 11:59 PM [facility] Hospital Encounter Non-[place] [address] Discharge Disposition: Home Social History Tobacco Use [facility] Hospital Encounter Non-[place] [address] Arrived documented as of this [...] on filedocumented in this encounter Care Teams Field Support Engineer Relationship Specialty Start Date End Date Donny Cooper MD [address] [place] [address] PCP - General Family Medicine 02/25/19 documented as of this encounter
--- OUTSIDE RECORDS SUMMARY | 2024-03-01 08:31 | XMS_ITS | Encounter Summary ---
Author Organization [facility] [place] [address] Care Team Providers Care Deckhand Maintenance Name Role Phone Donny Cooper MD Primary Care Provider [phone] Encounter Details Date Type Department Care Team (Late st Contact Info) Description 07/26/2019 Notes Only Cardiology at [address] [address] Maged Arguelles MD [facility] [place] [address] Social History Tobacco Use Types Packs/Day Years [...] his Medtronic biventricular ICD is reviewed. Suboptimal SOLIDS CONTROL TECHNICIAN at 84%. Normal device function. Awaiting Holter to assess PVC burden. Maged Arguelles MD S Cardiac Electrophysiology 07/26/2019 9:04 AM documented in this encounter Plan of Treatment Upcoming Encounters Date Type Department Care Team (Late st Contact Info) Description 05/02/2024 10:00 AM EST Hospital Encounter Non-Invasive [place] [address] Arrived documented as of this encounter Visit Diagnoses Not on filedocumented in this encounter Care Teams Deckhand Maintenance Relationship Specialty Start Date End Date Donny Cooper MD [address] [place] [address] PCP - General Family Medicine 02/25/19 documented as of this encounter
--- OUTSIDE RECORDS SUMMARY | 2024-03-01 08:31 | XMS_ITS | Encounter Summary ---
[place] [address] Care Team Providers Care Steep Tender Name Role Phone Donny Cooper MD Primary Care Provider [phone] Encounter Details Date Type Department Care Team (Late st Contact Info) Description 03/17/2019 Telephone Cardiology at [address] [address] Sheri Quinn LNA Social History [...] EST Medication list reviewed with [facility] list. Please review with patient at next clinic visit. documented in this encounter Plan of Treatment Upcoming Encounters Date Type Department Care Team (Late st Contact Info) Description 05/02/2024 10:00 AM EST Hospital Encounter Non-Invasive [place] [address] Arrived documented as of this encounter Visit Diagnoses Not on filedocumented in this encounter Care Teams Steep Tender Relationship Specialty Start Date End Date Donny Cooper MD [address] [place] [address] PCP - General Family Medicine 02/25/19 documented as of this encounter
--- OUTSIDE RECORDS SUMMARY | 2024-03-01 08:31 | XMS_ITS | Encounter Summary ---
[place] [address] Care Team Providers Care Oracle Ebs Consultant Name Role Phone Donny Cooper MD Primary Care Provider +1 [phone] Encounter Details Date Type Department Care Team [facility]counter Non[place] [address] Arrived documented as of this encounter Visit Diagnoses Not on filedocumented in this encounter Care Teams Oracle Ebs Consultant Relationship Specialty Start Date End Date Donny Cooper MD [address] [place] [address] PCP - General Family Medicine 02/25/19 documented as of this encounter
--- OUTSIDE RECORDS SUMMARY | 2024-03-01 08:31 | XMS_ITS | Encounter Summary ---
Author Organization [facility] [place] [address] Care Team Providers Care Design Center Consultant Name Role Phone Marques Martinez MD Primary Care Provider [phone] Encounter Details Date Type Department Care Team (Late st Contact Info) Description 06/12/2010 2:10 PM EST Office [place] [address] Jairon Fenton MD [facility] [place] [address] Discharge Disposition: Home Social History Tobacco Use [...] AM EST Hospital Encounter Non-Invasive [place] [address] Arrived documented as of this encounter Visit Diagnoses Not on filedocumented in this encounter Care Teams Design Center Consultant Relationship Specialty Start Date End Date Marques Martinez MD [address] [place] [address] PCP - General 04/01/10 04/08/11 documented as of this encounter
--- OUTSIDE RECORDS SUMMARY | 2024-03-01 08:31 | XMS_ITS | Encounter Summary ---
Author Organization [facility] [place] [address] Care Team Providers Care Kohinoor Operator Name Role Phone Donny Cooper MD Primary Care Provider [phone] Encounter Details Date Type Department Care Team (Latest Contact Info) Description 10/03/2022 10:00 AM EDT Office Visit Cardiology at [address] [address] Eleno No, PA [facility] [place] [address] Cardiomyopathy, primary; Presence of cardiac resynchronization therapy defibrillator (WORKERS COMPENSATION CLAIMS ADJUSTER-D); Diaphragmatic stimulation by cardiac pacemaker, initial encounter [...] original note were not included. Cardiac Device WORKERS COMPENSATION CLAIMS ADJUSTER-D Programming Evaluation Nabil Iglesias [id number] 10/03/2022 History: Mr. 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 [...] AM EST Hospital Encounter Non[place] [address] Arrived documented as of this encounter Procedures Procedure Name Priority Date/Time Associated Diagnosis Comments EKG 12-LEAD Routine 10/03/2022 11:00 AM EDT Cardiomyopathy, primary Presence of cardiac resynchronization therapy defibrillator (WORKERS COMPENSATION CLAIMS ADJUSTER-D) Diaphragmatic stimulation by cardiac pacemaker, initial encounter documented in this encounter Results * EKG 12 Lead (10/03/2022 11:00 AM EDT) Ventricular rate 74 BPM MUSE SYSTEM Atrial Rate 74 BPM MUSE SYSTEM P-R Interval 154 ms MUSE SYSTEM QRS Duration 162 ms MUSE SYSTEM Q-T Interval 470 ms MUSE SYSTEM QTC Calculated (Bezet) 521 ms MUSE SYSTEM Calculated P [place] 30 degrees MUSE SYSTEM Calculated R [place] -98 degrees MUSE SYSTEM Calculated T [place] 41 degrees MUSE SYSTEM INTERPRETATION Atrial-sense d [...] cardiomyopathies Presence of cardiac resynchronization therapy defibrillator (WORKERS COMPENSATION CLAIMS ADJUSTER-D) Diaphragmatic stimulation by cardiac pacemaker, initial encounter documented in this encounter Care Teams Kohinoor Operator Relationship Specialty Start Date End Date Donny Cooper MD [address] [place] [address] PCP - General Family Medicine 02/25/19 documented as of this encounter
[2024-03-01 08:56] VITALS: BP 144/72; PULSE 70
--- OUTSIDE RECORDS SUMMARY | 2024-03-03 07:57 | XMS_ITS | Encounter Summary ---
Author Organization [facility] Address [address] [place] [address] Care Team Providers Care Client Services Administrator Name Role Phone Clem Olvera MD Primary Care Provider [phone] Encounter Details Date Type Department Care Team (Latest Contact Info) Description 12/20/2015 10:52 EDT - 12/20/2015 23:52 EDT Hospital Encounter [facility] Cardi[facility] Unit [address] [place] [address] Navdeep Hurd MD [address] [place] [address] [address] Discharge Disposition: Home or Self [...] need to beNPO or have a driver medic. However, his will be accompanying him. They are driving someone to the airport [place] 1000 and then will come here and check-in around 1145. He agrees to have a shower. documented in this encounter Procedure Notes * Fantasma Dhillon MD - 12/20/2015 1356 EDT IR Brief Procedure Note Attending: Leo Public Relations Specialist: Alejo Pre-op Dx: Arrhythmia, need for pacemaker [...] 12/19 documented in this encounter Care Teams Client Services Administrator Relationship Specialty Start Date End Date Clem Olvera MD [address] [place] [place] [id number] PCP - General 12/18/15 documented as of this encounter
--- OUTSIDE RECORDS SUMMARY | 2024-03-03 07:57 | XMS_ITS | Encounter Summary ---
Author Organization [facility] Address [address] [place] [address] Care Team Providers Care Pelts Skinner Name Role Phone Clem Olvera MD Primary Care Provider [phone] Reason for Referral * Cardiology (3 - 10 Business Days) - Closed Specialty Diagnoses / Procedures [facility] To Contact Diagnoses ICD (implantable cardioverter-defibrillator) battery depletion Pacemaker lead failure, initial encounter 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 Procedures IMPLANTABLE CARDIAC DEFIBRILLATOR PROCEDURE Navdeep Hurd MD [address] [place], [place] [address] [address] [place] [address] Referral ID Status Reason Start Date Expiration Date Visits Re quested Visits Authorized [id number] Closed 02/13/2016 1 1 Encounter Details Date Type Department Care Team (Latest Contact Info) Description 02/13/2016 Pre-Procedure Orders Encounter [facility] [address] [place], [place] [address] Nav[facility]urd [facility] [address] [facility] [address] [place] [address] ICD (implantable cardioverter-defibril lator) battery [...] 8 EDT Narrative 02/27/2016 15:17 EDT *Cardiology* [address] [place] [address] Lead Revision (Report amended ) Patient: Nabil Iglesias ?Study Date: ?02/27/2016 ? Accession #: ? [id number] : ? 1940 Referring: Clem Olvera Attending: [...] Venograms were performed in the MOORE and [place] projections and a suitable mid-lateral LV branch [...] fascia. The leads were connected to a FACIALIST-D device. Device and Lead detail in table [...] Implanted device: Medtronic - Viva Quad XT FACIALIST-D DF4 - Serial number: [id number] Explanted device: Medtronic - Viva XT FACIALIST-D DF4 - Serial number: [id number]. LEAD PARAMETERS + + + + + [...] + + + + + Serial number [id number] ? [id number] ?? [id number] ?? [id number] ? + + + + [...] Gulshan Drummond MD - 05/12/2016 *Cardiology* [address] [place] [address] Lead Revision (Report amended ) Patient: Nabil [...] therefore over an 0.35 glide wire [facility] 6 mm-40 mm balloon [...] Venograms were performed in the MOORE and [place] projections and a suitable mid-lateral LV branch [...] fascia. The leads were connected to a FACIALIST-D device. Device and Lead detail in table [...] Implanted device: Medtronic - Viva Quad XT FACIALIST-D DF4 - Serial number: [id number] Explanted device: Medtronic - Viva XT FACIALIST-D DF4 - Serial number: [id number]. LEAD PARAMETERS + + + + + + Lead # 1 2 3 4 + + + + + + Chamber RA RV LV LV + + + + + + Date 07/19/2002 07/18/2013 02/27/2016 07/18/2013 implanted + + + + + + Model St. Esa Medtronic Medtronic Enpath information [id number] Attain Epicardial Performa 4298 + + + + + + Serial number [id number] + + + + + + [...] situ documented in this encounter Care Teams Pelts Skinner Relationship Specialty Start Date End Date Clem Olvera MD [address] [place] [address] PCP - General 12/18/15 documented as of this encounter
--- OUTSIDE RECORDS SUMMARY | 2024-03-03 07:57 | XMS_ITS | Clinical Summary ---
Author Organization [facility] Address [address] [place] [address] Care Team Providers Care Child Abuse Worker Name Role Phone Clem Olvera MD Primary Care Provider [phone] Allergies No known active allergies Medications Medication [...] PACEMAKER INSERTION 05/04/2002 - 05/03/20032013 second pacemaker [facility] Medical History Medical History Date Comments CAD [...] Advance Directives For more information, please contact: [phone] * Full Code (Latest Code Status on File) Date Activated Date Inactivated Comments 02/27/2016 8:49 02/28/2016 15:40 Question Answer Comments Reason for decision includes: Full code consistent with overall plan of care Who participated in the discussion? Not Discusse d Care Teams Child Abuse Worker Relationship Specialty Start Date End Date Clem Olvera MD [address] [place] [address] PCP - General 12/18/15
--- OUTSIDE RECORDS SUMMARY | 2024-03-03 07:57 | XMS_ITS | Encounter Summary ---
Author Organization [facility] Address [address] [place] [address] Care Team Providers Care Oil Field Caser Name Role Phone Clem Olvera MD Primary Care Provider [phone] Reason for Visit * Reason Onset Date Comments Other 04/04/2019 Transfer request for Pacer Care at [facility] Encounter Details Date Type Department Care Team (Late st Contact Info) Description 04/04/2019 Telephone [facility] Cardiology Clinic [address] [place] [address] Giselle Hill, RESTAURANT HOSTESS Other (Transfer request for Pacer Care at [facility]) Social History Tobacco Use Types Packs/Day Years [...] 04/04/2019 1503 EST I went into the [employer] Website and released pt to [facility] Pacer Clinic as requested. * Telephone Encounter - Suze Reynoso - 04/04/2019 1342 EST PT WILL BE HAVING HIS PACER CARE DONE AT [facility], PLEASE RELEASE HIS REMOTE MONITORING SO THAT THEY CAN PICK IT UP documented in this encounter Plan of Treatment Not on file documented as of this encounter Visit Diagnoses Not on filedocumented in this encounter Care Teams Oil Field Caser Relationship Specialty Start Date End Date Clem Olvera MD [address] [place] [address] PCP - General 12/18/15 documented as of this encounter
--- OUTSIDE RECORDS SUMMARY | 2024-03-03 07:57 | XMS_ITS | Referral Summary ---
Author Organization [facility] Address [address] [place] [address] Care Team Providers Care Manager Architectural Name Role Phone Clem Olvera MD Primary Care Provider [phone] Allergies No known active allergies Medications Medication [...] Advance Directives For more information, please contact: [phone] * Full Code (Latest Code Status on File) Date Activated Date Inactivated Comments 02/27/2016 8:49 02/28/2016 15:40 Question Answer Comments Reason for decision includes: Full code consistent with overall plan of care Who participated in the discussion? Not Discusse d Care Teams Manager Architectural Relationship Specialty Start Date End Date Clem Olvera MD [address] [place] [id number] PCP - General 12/18/15
--- OUTSIDE RECORDS SUMMARY | 2024-03-03 07:57 | XMS_ITS | Encounter Summary ---
[place] [address] Care Team Providers Care Director Patient Accounting Name Role Phone Donny Cooper MD Primary Care Provider [phone] Encounter Details Date Type Department Care Team (Late st Contact Info) Description 01/05/2024 Telephone Cardiology at [address] [address] Kanika Shell Social History Tobacco [...] AM EST Hospital Encounter Non-[place] [address] Arrived documented as of this encounter Visit Diagnoses Not on filedocumented in this encounter Care Teams Director Patient Accounting Relationship Specialty Start Date End Date Donny Cooper MD [address] [place] [address] PCP - General Family Medicine 02/25/19 documented as of this encounter
--- OUTSIDE RECORDS SUMMARY | 2024-03-03 07:57 | XMS_ITS | Encounter Summary ---
Author Organization [facility] Address [address] [place] [address] Care Team Providers Care Restorative Coordinator Name Role Phone Unknown, Provider Primary Care Provider [phone] Clem Olvera MD Primary Care Provider [phone] Encounter Details Date Type Department Care Team (Late st Contact Info) Description 11/29/2015 Pre-Procedure Orders Encounter [facility] [address] [place], [place] [id number] Navdeep Hurd MD [address] [place] [address] [address] Social History Tobacco Use Types [...] Patient: Nabil Streeter. Attending: Dr. Moran Scrrajinder Liturgical Music Director: Dr. Fantasma Dhillon History/indication: The patient is [...] Patient: Nabil Streeter Attending: Dr. Dean Bailey Liturgical Music Director: Dr. Fantasma Dhillon History/indication: The patient is [...] on filedocumented in this encounter Care Teams Restorative Coordinator Relationship Specialty Start Date End Date Unknown, Provider, PCP - General 12/06/12 12/17/15 Clem Olvera MD [address] [place] [address] PCP - General 12/18/15 documented as of this encounter
--- OUTSIDE RECORDS SUMMARY | 2024-03-03 07:57 | XMS_ITS | Encounter Summary ---
Author Organization [facility] Address [address] [place] [address] Care Team Providers Care Manufacturing Sales Representative Name Role Phone Unavailable Primary Care Provider Unavailabl e Encounter Details Date Type Department Care Team (Late st Contact Info) Description 05/06/2001 Results Only [facility] - [facility] [address] [place] [address] Hernandez Partida MD [address] [place] [phone] Social History Tobacco Use Types Packs/Day Years [...] entirely in cassette (B). ??(Naty Caal)/[facility] End of Report [facility] 05/06/2001 05/07/2001 9:2 5 EST Hernandez Partida MD PATHOLOGY ORDERABLES [facility] [address] [place] [address] documented in this encounter Visit Diagnoses Not on filedocumented in this encounter
--- OUTSIDE RECORDS SUMMARY | 2024-03-03 07:57 | XMS_ITS | Encounter Summary ---
Author Organization [facility] Address [address] [place] [address] Care Team Providers Care Body Maker Name Role Phone Clem Olvera MD Primary Care Provider [phone] Reason for Visit * Reason Onset Date Comments Appointment Related 10/23/2016 Check for fo llow up of pacer Encounter Details Date Type Department Care Team ([facility] Contact Info) Description 10/23/2016 Telephone [facility] Cardiology - [address] [place] [address] Pacemaker, Pace Appointment Related (Check [...] are being followed by Dr. Hurd at [facility]. documented in this encounter Plan of Treatment Not on file documented as of this encounter Visit Diagnoses Not on filedocumented in this encounter Care Teams Body Maker Relationship Specialty Start Date End Date Clem Olvera MD [address] [place] [address] PCP - General 12/18/15 documented as of this encounter
--- OUTSIDE RECORDS SUMMARY | 2024-03-03 07:57 | XMS_ITS | Encounter Summary ---
Author Organization [facility] Address [address] [place] [address] Care Team Providers Care Manager Quality Name Role Phone Clem Olvera MD Primary Care Provider [phone] Encounter Details Date Type Department Care Team (Late st Contact Info) Description 03/16/[address] [facility] - [facility] Cardiology Clinic [address] [place] [address] Ronal Avelar, JADON AV block, 2nd degree [...] Laterality Modality Device Narrative 03/24/2019 10:30 EST [facility] Cardiology Device Visit Consumer Insights Specialist: [employer] Device Type: HOSPICE EDUCATOR-D Service: Remote ? 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
--- OUTSIDE RECORDS SUMMARY | 2024-03-03 07:57 | XMS_ITS | Encounter Summary ---
[place] [address] Care Team Providers Care Group Work Program Director Name Role Phone Donny Cooper MD Primary Care Provider [phone] Encounter Details Date Type Department Care Team (Latest Contact Info) Description 11/04/2023 10:00 AM EDT - 11/04/2023 11:59 PM EDT Hospital Encounter [place] [address] Discharge Disposition: Home Social History Tobacco Use [...] st Contact Info) Description 05/02/2024 10:00 AM [facility] Hospital Encounter [place] [address] Arrived documented as of this [...] on filedocumented in this encounter Care Teams Group Work Program Director Relationship Specialty Start Date End Date Donny Cooper MD [address] [place] [address] PCP - General Family Medicine 02/25/19 documented as of this encounter
--- OUTSIDE RECORDS SUMMARY | 2024-03-03 07:57 | XMS_ITS | Encounter Summary ---
[place] [address] Care Team Providers Care Band Aid Machine Operator Name Role Phone Donny Cooper MD Primary Care Provider [phone] Encounter Details Date Type Department Care Team (Latest Contact Info) Description 02/02/2024 10:00 AM EDT - 02/02/2024 11:59 PM EDT Hospital Encounter Non-[place] [address] Discharge Disposition: Home Social History Tobacco Use [...] [facility] Hospital Encounter Non-Invasive [place] [address] Arrived documented as of this encounter Visit Diagnoses Not on filedocumented in this encounter Care Teams Band Aid Machine Operator Relationship Specialty Start Date End Date Donny Cooper MD [address] [place] [address] PCP - General Family Medicine 02/25/19 documented as of this encounter
--- OUTSIDE RECORDS SUMMARY | 2024-03-03 07:57 | XMS_ITS | Encounter Summary ---
Author Organization [facility] Address [address] [place] [address] Care Team Providers Care Frame Pulley Mortising Machine Operator Name Role Phone Clem Olvera MD Primary Care Provider [phone] Reason for Referral * (Routine) - Closed Specialty Diagnoses / Procedures Referred By Pedro madera Referred To Contact Beatrice De La Garza NP [address] [place] [phone] Referral ID Status Reason Start Date Expiration Date V isits Requested Visits Authorized [id number] Closed Specialty Services Required 02/27/2016 1 1 Comments You must contact us if we have not contacted you or you have missed your scheduled appointment. If you have any nursing questions, please don't hesitate to call the Cardiac Arrhythmia Service at [facility] at or , extension [phone]. For any scheduling of appointments, please call [phone] or , extension [phone]. . * (Routine) - Closed Specialty Diagnoses / Procedures Referred By Pedro madera Referred To Contact Beatrice De La Garza NP [address] [address] Referral ID Status Reason Start Date Expiration Date V isits Requested Visits Authorized [id number] Closed Specialty Services Required 02/27/2016 1 1 Comments You have a pre existing appointment with Dr. Olvera on March 05 at 2:00, please have Dr. Olvera check your incision at that visit. * (Routine) - Closed Specialty Diagnoses / Procedures Referred By Contbecca t Referred To Contact Beatrice De La Garza NP [address] [address] Referral ID Status Reason Start Date Expiration Date V isits Requested Visits Authorized [id number] Closed Specialty Services Required 02/27/2016 1 1 [...] scheduled at your first appointment. - [facility] Cardiology is located at [address] [facility] in [place] -Clinics are also held in [facility], and [place], [place] and [facility]. If you live in those areas, we will make arrangements for follow-up appointments in one of those clinics.. Encounter Details Date Type Department Care Team (Late st Contact Info) Description 02/27/2016 6:30 EDT - 02/28/2016 13:39 EDT Hospital Encounter [facility] Cardiac/Telemetry Unit [address] [place] [address] Gulshan Drummond MD PhD [address] [phone] Gulshan Montoya Sa, MD [address] [facility] [address] [place] [phone] AICD lead malfunction, subsequent encounter; ICD [...] around May 2013, when he was in [place], [place]. This triggered major cardiac workup [...] underwent a device upgrade to a SUPERVISOR PASTE PLANT-D device with biventricular pacing for his EF [...] been followed in cardiology outreach clinic at [facility] in [place]. Continued high pacing threshold on the epicardial [...] and plans to follow up with his Records And Tape Recordings Engineer in [place] in 6-8 weeks for which he will arrange once he has arrived in [place]. He has been provided with the implant [...] HGBA1C Discharge Follow Up Appointments Scheduled with [facility] Appointments Outside of [facility] We Will Schedule Studies We Will Schedule Appointments We Recommend but have not been Scheduled Beatrice De La Garza NP 02/27/2016 10:59 Associated attestation - Gulshan Montoya Sa, MD - 02/28/2016 1519 EDT Attending Attestation: I saw and evaluated the patient. I discussed the case with the resident/CORPORATE STAFF ACCOUNTANT/fellow and agree with the findings and plan as documented above. Gulshan bullock Sa, MD Cardiac Electrophysiology documented in this encounter Discharge Instructions * Appointments* Beatrice De La Garza NP - 02/27/2016 11:[address] Olvera on 03/05/16 at 2:00 as previously scheduled for a routine visit and for a check of your incision. Follow up with Giselle Hill NP at the [facility] in May, you will be [...] Notes * Lou Alfonso RN - 02/28/2016 3887 EDT Pt awaiting discharge. IV and tele [...] agree to review this medication with his day spa manager and plans to remain on his [...] friends and neighbors. Patient has Medicare and [facility]. Pharmacy is [facility] in [facility]. No needs identified at time of discharge. will provide transportation. Beatrice Rodriguez RN Case Manager #[phone] documented in this encounter H&P Notes * [...] around May 2013, when he was in [place], [place]. This triggered major cardiac workup [...] his device was upgraded to a SUPERVISOR PASTE PLANT-D device with biventricular pacing. By the patient's [...] been followed in cardiology outreach clinic at [facility] in [place]. Continued high pacing threshold on the epicardial LV lead has caused a very rapid battery depletion. Dr. David Adams in [place] recommended against lead extraction and reimplant as [...] insertion 2002 2013 second pacemaker [facility] Social History Family History Social History Substance Use Topics ??? Smoking status: Former Smoker Years: 35.00 Quit date: 1989 ??? Smokeless tobacco: Not on file ??? Alcohol use 6.6 oz/week 6 Cans of beer, 5 Glasses of wine per week , lives with , retired. Spends leong in [place]. Spends the chery in [place], [place]. Quit smoking in 1990. Has [...] his device was upgraded to a SUPERVISOR PASTE PLANT-D device with biventricular pacing with a surgically [...] EST) 03/12/2016 12:4 3 EST Scan 2 Content Management Specialist PROCEDURE/MINOR JUDD GICAL ORDERABLES * ECG REPORT - SCANNED (03/04/2016 14:06 EDT) 03/04/2016 14:0 6 EDT Scan 2 Content Management Specialist PROCEDURE/MINOR JUDD GICAL ORDERABLES * ECG REPORT - SCANNED (03/04/2016 14:06 EDT) 03/04/2016 14:0 6 EDT Scan 2 Content Management Specialist PROCEDURE/MINOR JUDD GICAL ORDERABLES * IMPLANT RECORD - SCANNED (03/04/2016 14:06 EDT) 03/04/2016 14:0 6 EDT Scan 2 Content Management Specialist PROCEDURE/MINOR JUDD GICAL ORDERABLES * ECG REPORT - SCANNED (03/01/2016 8:58 EDT) 03/01/2016 8:58 EDT Scan 2 Content Management Specialist PROCEDURE/MINOR JUDD GICAL ORDERABLES * ECG REPORT - SCANNED (03/01/2016 8:58 EDT) 03/01/2016 8:58 EDT Scan 2 Content Management Specialist PROCEDURE/MINOR JUDD GICAL ORDERABLES * CHEST [...] IMAGING ORDERABLES * HEMAGRAM (02/28/2016 5:44 EDT) [facility] WBC 9.84 4.0 - 10.4 K/cmm 02/28/2016 6:26 EDT [facility] RBC 4.42 4.36 - 5.78 M/cmm 02/28/2016 6:26 T [facility] Hemoglobin 14.2 13.8 - 17.3 gm/dl 02/28/2016 6:26 [facility] HCT 40.9 39.5 - 50.2 % 02/28/2016 6:26 [facility] MCV 93 81 - 95 fl 02/28/2016 6:26 [facility] MCH 32.1 27.6 - 33.0 pg 02/28/2016 6:26 [facility] MCHC 34.7 32.8 - 36.4 gm/dl 02/28/2016 6:26 [facility] RDW-CV 13.1 11.8 - 14.1 % 02/28/2016 6:26 [facility] RDW-SD 44.6 36.5 - 45.9 fl 02/28/2016 6:26 [facility] PLT 151 141 - 377 K/cmm 02/28/2016 6:26 [facility] MPV 11.2 9.5 - 12.7 fl 02/28/2016 6:26 [facility] Blood specimen (specimen) BLOOD SPECIMEN / Unknown 02/28/2016 5:44 EDT 02/28/2016 6:13 EDT Beatrice De La Garza NP HEMATOLOGY & PF4 ORDERABLES [facility] [address] [place] [address] * (ABNORMAL) CREATININE (02/28/2016 5:44 EDT) Creatinine 0.65(L) 0.66 - 1.25 mg/dl 02/28/2016 6:48 EDT [facility] GFR, Calculated 95 >60 ml/min/1.7 3m2 02/28/2016 6:48 EDT [facility] Comment: eGFR calculated using CKD-EPI equation for non Americans. Multiply eGFR by 1.16 for Americans. Blood specimen (specimen) BLOOD SPECIMEN / Unknown 02/28/2016 5:44 EDT 02/28/2016 6:13 EDT Beatrice De La Garza NP CHEMISTRY & B LOOD GAS ORDERABLES Performing Organization Address [facility]/ZIP Co de Phone Number [facility] [address] [place] [address] * BUN (02/28/2016 5:44 EDT) BUN 14 10 - 26 mg/dl 02/28/2016 6:48 EDT [facility] Blood specimen (specimen) BLOOD SPECIMEN / Unknown 02/28/2016 5:44 EDT 02/28/2016 6:13 EDT Beatrice De La Garza CORPORATE STAFF ACCOUNTANT CHEMISTRY & B LOOD GAS ORDERABLES Performing Organization Address [facility] Co de Phone Number [facility] [address] [place] [address] * ELECTROLYTES (02/28/2016 5:44 EDT) Sodium 138 136 - 145 mEq/L 02/28/2016 6:48 EDT [facility] Potassium 4.7 3.5 - 5.0 mEq/L 02/28/2016 6:48 EDT [facility] Chloride 104 96 - 110 mEq/L 02/28/2016 6:48 EDT [facility] CO2 25 22 - 32 mEq/L 02/28/2016 6:48 EDT [facility] Comment:Note new reference r hong 02/19/16 Blood specimen (specimen) BLOOD SPECIMEN / Unknown 02/28/2016 5:44 EDT 02/28/2016 6:13 EDT Beatrice De La Garza NP CHEMISTRY & B LOOD GAS ORDERABLES [facility] [address] [place] [address] * PORTABLE CHEST 1 VIEW (02/27/2016 12:46 [...] 12:41 EDT) 02/27/2016 12:4 1 EDT Narrative [facility] EKG - 02/28/2016 8:57 EDT ? [facility] ? Test Date: ?2016-02-27 Pat Name: ? NABIL IGELSIAS ? Department: ?? [facility] ? Room: ? MW514 Gender: ? M ?Solvent Process Extractor Operator: ?? [id number] : ?1940 ? Requested By: KAIN REED L Order Number: [id number] ? Reading MD: ?? BRAYAN CUENCA MD ? Measurements Intervals ?[place] ? Rate: ? 63 ? P: ?15 [...] Note Brayan Cuenca MD - 02/28/2016 [facility] Test Date: 2016-02-27 Pat Name: NABIL IGLESIAS Department: [place] [address] Room: [facility] Gender: M Solvent Process Extractor Operator: [id number] : 1940 Requested By: KAIN Gallagher Order Number: [id number] Reading MD: BRAYAN CUENCA MD Measurements Intervals [place] Rate: 63 P: 15 WY: 159 QRS: 234 QRSD: 156 T: 15 QT: 479 QTc: 493 Interpretive Statements ELECTRONIC VENTRICULAR PACEMAKER Compared to ECG 02/27/2016 08:10:34 No significant changes I reviewed the tracing and have either agreed or edited the findings inthis report. Electronically Signed On 02-28-16 08:57:02 EDT by BRAYAN BEEBE. Gulshan Drummond MD PhD CARDIA C ECG ORDERABLES [facility] EKG * PROTIME (02/27/2016 8:45 EDT) Pro Time 12.3 10.3 - 13.1 secs 02/27/2016 9:10 EDT [facility] Comment: New prothrombin t josue range effective 01/29/16 I.N.R. 1.1 0.9 - 1.1 Ratio 02/27/2016 9:10 EDT [facility] Comment: Moderate Intensity Coumadin INR = 2.0-3.0 Adjustments in anticoagulant therapy dose should be based upon the INR and NOT the Pro Time. Blood specimen (specimen) BLOOD SPECIMEN / Unknown 02/27/2016 8:45 EDT 02/27/2016 8:54 EDT Gulshan Drummond MD PhD HEMATO LOGY & PF4 ORDERABLES [facility] [address] [place] [address] * HEMAGRAM (02/27/2016 8:45 EDT) WBC 6.47 4.0 - 10.4 K/cmm 02/27/2016 8:57 EDT [facility] RBC 4.51 4.36 - 5.78 M/cmm 02/27/2016 8:57 EDT [facility] Hemoglobin 14.7 13.8 - 17.3 gm/dl 02/27/2016 8:57 EDT [facility] HCT 41.7 39.5 - 50.2 % 02/27/2016 8:57 EDT [facility] MCV 93 81 - 95 fl 02/27/2016 8:57 EDT [facility] MCH 32.6 27.6 - 33.0 pg 02/27/2016 8:57 EDT [facility] MCHC 35.3 32.8 - 36.4 gm/dl 02/27/2016 8:57 T [facility] RDW-CV 13.1 11.8 - 14.1 % 02/27/2016 8:57 EDT [facility] RDW-SD 44.0 36.5 - 45.9 fl 02/27/2016 8:57 EDT [facility] PLT 176 141 - 377 K/cmm 02/27/2016 8:57 EDT [facility] MPV 10.7 9.5 - 12.7 fl 02/27/2016 8:57 EDT [facility] Blood specimen (specimen) BLOOD SPECIMEN / Unknown 02/27/2016 8:45 EDT 02/27/2016 8:54 EDT Gulshan Drummond MD PhD HEMATO LOGY & PF4 ORDERABLES [facility] [address] [place] [address] * ELECTROLYTES (02/27/2016 8:45 EDT) Sodium 142 136 - 145 mEq/L 02/27/2016 9:13 EDT [facility] Potassium 4.7 3.5 - 5.0 mEq/L 02/27/2016 9:13 EDT [facility] Chloride 103 96 - 110 mEq/L 02/27/2016 9:13 EDT [facility] CO2 27 22 - 32 mEq/L 02/27/2016 9:13 EDT [facility] Comment:Note new reference r hong 02/19/16 Blood specimen (specimen) BLOOD SPECIMEN / Unknown 02/27/2016 8:45 EDT 02/27/2016 8:54 EDT Gulshan Drummond MD PhD CHEMIS TRY & BLOOD GAS ORDERABLES Performing Organization Address [facility] de Phone Number [facility] [address] [place] [address] * CREATININE (02/27/2016 8:45 EDT) Creatinine 0.69 0.66 - 1.25 mg/dl 02/27/2016 9:13 EDT [facility] GFR, Calculated 93 >60 ml/min/1.7 3m2 02/27/2016 9:13 EDT [facility] Comment: eGFR calculated using CKD-EPI equation for non Americans. Multiply eGFR by 1.16 for Americans. Blood specimen (specimen) BLOOD SPECIMEN / Unknown 02/27/2016 8:45 EDT 02/27/2016 8:54 EDT Gulshan Drummond MD PhD CHEMIS TRY & BLOOD GAS ORDERABLES Performing Organization Address City/[facility] Co de Phone Number [facility] [address] [place] [address] * BUN (02/27/2016 8:45 EDT) BUN 17 10 - 26 mg/dl 02/27/2016 9:13 EDT [facility] Blood specimen (specimen) BLOOD SPECIMEN / Unknown 02/27/2016 8:45 EDT 02/27/2016 8:54 EDT Gulshan Drummond MD PhD CHEMIS TRY & BLOOD GAS ORDERABLES [facility] [address] [place] [address] * EKG 12-LEAD (02/27/2016 8:08 EDT) 02/27/2016 8:08 EDT Narrative [facility] EKG - 02/28/2016 9:01 EDT ? [facility] ? Test Date: ?2016-02-27 Pat Name: ? NABIL IGLESIAS ? Department: ?? [facility] ? Room: ? NL9637 Gender: ? M ?Solvent Process Extractor Operator: ?? [id number] : ?1940 ? Requested By: MARCIA Boo Order Number: [id number] ? Julia WRIGHT: ?? BRAYAN CUENCA MD ? Measurements Intervals ?[place] ? Rate: ? 69 ? P: ?147 [...] Note Brayan Cuenca MD - 02/28/2016 [facility] Test Date: 2016-02-27 Pat Name: NABIL IGLESIAS Department: [facility] Room: [id number] Gender: M Solvent Process Extractor Operator: [id number] : 1940 Requested By: MARCIA Boo Order Number: [id number] Reading MD: BRAYAN CUENCA MD Measurements Intervals [place] Rate: 69 P: 147 WY: 134 QRS: -67 QRSD: 160 T: -59 QT: 434 QTc: 467 Interpretive Statements ELECTRONIC ATRIAL PACEMAKER ELECTRONIC VENTRICULAR PACEMAKER Compared to ECG 02/27/2016 08:08:46 No significant changes I reviewed the tracing and have either agreed or edited the findings inthis report. Electronically Signed On 02-28-16 09:01:04 EDT by BRAYAN BEEBE. 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 took HEAVY EQUIPMENT FIELD MECHANIC, takes other meds at HS)2102 (Given - Provider: Mady Bruno RN) tamsulosin (FLOMAX) capsule 0.4 mg 0.4 mg, oral, DAILY, First dose on Thu02/27/16 at 1245, Until Discontinued, Routine 1306 (Not Given - Provider: Nneka Stuart RN - Reason: Other - Comment: pt already took HEAVY EQUIPMENT FIELD MECHANIC, takes other meds at HS) 921 (Given [...] Reina Onofre RN)1048 (Given - Provider: Reina Oonfre RN)1059 (Given - Provider: Reina Onofre RN)1115 [...] 02/02 documented in this encounter Care Teams Frame Pulley Mortising Machine Operator Relationship Specialty Start Date End Date Clem Olvera MD [address] [place] [id number] PCP - General 12/18/15 documented as of this encounter
--- OUTSIDE RECORDS SUMMARY | 2024-03-03 07:57 | XMS_ITS | Encounter Summary ---
Author [place] [address] Care Team Providers Care Tag Clerk Name Role Phone Donny Cooper MD Primary Care Provider [phone] Encounter Details Date Type Department Care Team (Late st Contact Info) Description 12/28/2023 Notes Only Cardiology at [address] [phone] Kanika Shell Social History Tobacco Use Types [...] [facility] Hospital Encounter Non[place] [address] Arrived documented as of this encounter Visit Diagnoses Not on filedocumented in this encounter Care Teams Tag Clerk Relationship Specialty Start Date End Date Donny Cooper MD [address] [place] [address] PCP - General Family Medicine 02/25/19 documented as of this encounter
--- OUTSIDE RECORDS SUMMARY | 2024-03-03 07:57 | XMS_ITS | Encounter Summary ---
Author Organization [facility] Address [address] [place] [address] Care Team Providers Care Top Frame Maker Name Role Phone Unavailable Primary Care Provider Unavailabl e Encounter Details Date Type Department Care Team (Late st Contact Info) Description 12/02/2012 Results Only [facility] Laboratory Services - [facility] [address] [place] [id number] Satinder Edwards MD [address] [place] [id number] Social History Tobacco Use Types Packs/Day Years [...] ? NABIL IGLESIAS ? Accession #: ? [id number] ? : ? 1940 (Age: 72) ??M [...] MD PATHOLOGY ORDERABLE S Performing Organization Address City/State/[facility] Co de Phone Number DIVYA BERRY [address] [place] [address] documented in this encounter Visit Diagnoses Not on filedocumented in this encounter
--- OUTSIDE RECORDS SUMMARY | 2024-03-03 07:57 | XMS_ITS | Clinical Summary ---
Author Organization [facility] [place] [address] Care Team Providers Care Parish Nurse Name Role Phone Donny Cooper MD Primary Care Provider [phone] Allergies No known active allergies Medications Medication [...] PM EDT Hospital Encounter [place] [address] Discharge Disposition: Home 01/05/2024 Telephone Cardiology at [address] [phone] Kanika Shell 12/28/2023 Notes Only Cardiology at [address] [phone] Knaika Shell from Last 3 Months Immunizations Name [...] AM EST Hospital Encounter [place] [phone] Arrived Health Maintenance Due Date Last Done Comments Tetanus/Diphtheria/Pertussis Vaccines (1 - Tdap) 08/19/1959 Zoster vaccine (1 of 2) 1990 Advance Directive 08/19/1995 Pneumoccocal Vaccine: 65+ (2 of 2 - PCV) 05/04/2009 05/04/2008 Covid-19 Vaccine (1 - 2022- season) 2024 Influenza (Flu) vaccine (1 o f 1 - Influenza standard series) 01/03/2024 02/01/2010, 03/06/2006, 02/24/2005 Medical Devices Implanted Type Area Produce Wrapper Device Identifier Shelf Expiration Date Model / Serial / Lot Mdt : [id number] : [id number] Implanted: (Quantity not on file) Cardiac Resynchronization Therapy - Defibrillator Chest [employer] - [id number] / [id number] / Care Teams Parish Nurse Relationship Specialty Start Date End Date Donny Cooper MD [address] [place] [address] PCP - General Family Medicine 02/25/19
--- OUTSIDE RECORDS SUMMARY | 2024-03-03 07:58 | XMS_ITS | Encounter Summary ---
[place] [address] Care Team Providers Care Emergency Manager Name Role Phone Marques Martinez MD Primary Care Provider [phone] Encounter Details Date Type Department Care Team (Late st Contact Info) Description 06/12/2010 2:00 PM EST Procedure visit [place] [address] Social History Tobacco Use Types Packs/Day Years [...] AM EST Hospital Encounter Non[place] [address] Arrived documented as of this encounter Visit Diagnoses Not on filedocumented in this encounter Care Teams Emergency Manager Relationship Specialty Start Date End Date Marques Martinez MD [address] [place] [address] PCP - General 04/01/10 04/08/11 documented as of this encounter
--- OUTSIDE RECORDS SUMMARY | 2024-03-03 07:58 | XMS_ITS | Encounter Summary ---
Author Organization [facility] [place] [address] Care Team Providers Care Transit Vehicle Inspector Name Role Phone Marques Martinez MD Primary Care Provider [phone] Encounter Details Date Type Department Care Team (Late st Contact Info) Description 03/30/2010 [place] [address] Javier Barajas MD [facility] [place] [address] Social History Tobacco Use Types Packs/Day Years [...] AM EST Hospital Encounter [place] [address] Arrived documented as of this encounter Procedures [...] AM EST Jairon Fenton MD CHEMISTRY ORDERABLES [facility] * (ABNORMAL) CREATININE, SERUM (04/01/2010 6:09 [...] Fenton MD CHEMISTRY ORDERABLES Performing Organization Address [facility] de Phone Number CERNER CHRISTOSENNIUM * BUN (04/01/2010 6:09 AM EST) Blood Urea Nitrogen 12 10 - 20 mg/dL [facility] MILLENNIUM Blood specimen (specimen) 04/01/2010 6:09 AM EST 04/01/2010 6:09 AM EST Jairon Fenton MD CHEMISTRY ORDERABLES Performing Organization Address [facility] de Phone [...] MD HEMATOLOGY ORDERABLE S Performing Organization Address [facility] de Phone [...] Fenton MD CHEMISTRY ORDERABLES Performing Organization Address [facility] Phone Number CERIVIS MILLENNIUM * ELECTROLYTE [...] Fenton MD CHEMISTRY ORDERABLES Performing Organization Address [facility] Co de Phone Number CERIVIS MILLENNIUM * CREATININE, SERUM (03/30/2010 6:05 PM EST) Creatinine 0.87 0.80 - 1.50 mg/dL [facility] Est Glomerular Filtration Rate >60 >=60 [facility] Comment: The National Kidney Disease Education [...] Urea Nitrogen 18 10 - 20 mg/dL [facility] Blood specimen (specimen) 03/30/2010 6:05 PM EST 03/30/2010 6:13 PM EST Jairon Fenton MD CHEMISTRY ORDERABLES Performing Organization Address [facility] de Phone Number DEJA MOSQUEDAIUM * APTT (03/30/2010 6:05 PM EST) Partial Thromboplastin Time 26 25 - 37 sec [facility] MILLENNIUM Comment: Recommended therapeutic PTT range for full dose unfractionated heparin is 80-114 seconds. Blood specimen (specimen) 03/30/2010 6:05 PM EST 03/30/2010 6:14 PM EST Jairon Fenton MD HEMATOLOGY ORDERABLE S Performing Organization Address [facility] Phone Number DEJA SEGOVIA * PROTIME-INR (03/30/2010 6:05 PM EST) Prothrombin Time 14.2 12.3 - 14.7 sec [facility] Comment: [facility] Transfusion Committee Guidelines: INR less than 2.0, PTT less than OR equal to 43.5 seconds, or Fibrinogen greater than or equal to 100 mg/dl indicate adequate procoagulant activity for hemostasis in patients without underlying bleeding disorders. International Normalization Ratio 1.1 0.9 - 1.1 [facility] Blood specimen (specimen) 03/30/2010 6:05 PM EST 03/30/2010 6:14 PM EST Jairon Fenton MD HEMATOLOGY ORDERABLE S Performing Organization Address [facility] de Phone [...] Standard Deviation 44.2 35.0 - 46.0 fL [facility] RDW coefficient of variation 13.1 10.9 - 14.4 % [facility] Mean Platelet Volume 10.6 9.0 - 12.0 fL [facility] Blood specimen (specimen) 03/30/2010 6:05 PM EST 03/30/2010 6:13 PM EST Jairon Fenton MD HEMATOLOGY ORDERABLE S Performing Organization Address [facility] Co de Phone Number [facility] * REFLEX LAB-ANTIBODY SCREEN (03/30/2010 3:17 PM EST) [facility] Ab Screen Interp Negative [facility] Expires at [id number] on: [id number] [facility] Blood specimen (specimen) 03/30/2010 3:17 PM EST 03/30/2010 3:17 PM EST Javier Barajas MD BLOOD BANK LAB ORDER PRECIOUS Performing Organization Address [facility] Co de Phone Number [facility] * REFLEX LAB-ABO/RH (03/30/2010 3:17 PM EST) [facility] ABORH Type A Pos [facility] Blood specimen (specimen) 03/30/2010 3:17 PM EST 03/30/2010 3:17 PM EST Javier Barajas MD BLOOD BANK LAB ORDER PRECIOUS Performing Organization Address [facility] Co de Phone Number [facility] * ELECTROLYTE PANEL (03/30/2010 2:50 PM EST) [facility] Sodium 135 135 - 145 mmol/L [facility] Potassium 4.3 3.5 - 5.0 mmol/L [facility] Comment: Please note: ??Patients with WBC [...] PM EST Javier Barajas MD CHEMISTRY ORDERABLES [facility] * CREATININE, SERUM (03/30/2010 2:50 PM [...] Barajas MD CHEMISTRY ORDERABLES Performing Organization Address [facility] Phone Number [facility] * BUN (03/30/2010 2:50 PM EST) Blood Urea Nitrogen 18 10 - 20 mg/dL [facility] Blood specimen (specimen) 03/30/2010 2:50 PM EST 03/30/2010 3:05 PM EST Javier Barajas MD CHEMISTRY ORDERABLES Performing Organization Address [facility] Phone Number [facility] * GLUCOSE, RANDOM (03/30/2010 2:50 PM EST) Glucose 95 <=199 mg/dL [facility] Comment:Diabetes: >=200 mg/d L plus symptoms Blood specimen (specimen) 03/30/2010 2:50 PM EST 03/30/2010 3:05 PM EST Javier Barajas MD CHEMISTRY ORDERABLES Performing Organization Address [facility] Phone Number [facility] * APTT (03/30/2010 2:50 PM EST) Partial Thromboplastin Time 25 25 - 37 sec [facility] Comment: Recommended therapeutic PTT range for full dose unfractionated heparin is 80-114 seconds. Blood specimen (specimen) 03/30/2010 2:50 PM EST 03/30/2010 3:06 PM EST Javier Barajas MD HEMATOLOGY ORDERABLE S Performing Organization Address [facility] Phone Number [facility] * PROTIME-INR (03/30/2010 2:50 PM EST) Prothrombin Time 14.1 12.3 - 14.7 sec [facility] Comment: [facility] Transfusion Committee Guidelines: INR less than 2.0, [...] on filedocumented in this encounter Care Teams Transit Vehicle Inspector Relationship Specialty Start Date End Date Marques Martinez MD [address] [place] [address] PCP - General 04/01/10 04/08/11 documented as of this encounter
--- OUTSIDE RECORDS SUMMARY | 2024-03-03 07:58 | XMS_ITS | Encounter Summary ---
[place] [address] Care Team Providers Care Social Media Strategist Name Role Phone Donny Cooper MD Primary Care Provider [phone] Encounter Details Date Type Department Care Team [...] [facility] Hospital Encounter Non-Invasive [place] [address] Arrived documented as of this encounter Visit Diagnoses Not on filedocumented in this encounter Care Teams Social Media Strategist Relationship Specialty Start Date End Date Donny Cooper MD [address] [place] [address] PCP - General Family Medicine 02/25/19 documented as of this encounter
--- OUTSIDE RECORDS SUMMARY | 2024-03-03 07:58 | XMS_ITS | Encounter Summary ---
Author [facility] [place] [place] [address] Care Team Providers Care Scouts Name Role Phone Marques Martinez MD Primary Care Provider [phone] Encounter Details Date Type Department Care Team (Late st Contact Info) Description 09/11/2010 Orders [place] [address] Jairon Fenton MD [facility] [place] [address] Fracture of patella, left, closed (Primary Dx) [...] [facility]ARE CENTER Hospital Encounter Non-[place] [address] Arrived documented as of this encounter Visit Diagnoses Diagnosis Fracture of patella, left, closed- Primary Closed fracture of patella documented in this encounter Care Teams Scouts Relationship Specialty Start Date End Date Marques Martinez MD [address] [place] [address] PCP - General 04/01/10 04/08/11 documented as of this encounter
--- OUTSIDE RECORDS SUMMARY | 2024-03-03 07:58 | XMS_ITS | Encounter Summary ---
Author Organization [facility] [place] [address] Care Team Providers Care Self Contained Behavior Unit Teacher Name Role Phone Marques Martinez MD Primary Care Provider [phone] Encounter Details Date Type Department Care Team (Late st Contact Info) Description 05/01/2010 3:10 PM EST Office Visit [place] [address] Jairon Fenton MD [facility] [place] [address] Discharge Disposition: Home Social History Tobacco Use [...] AM EST Hospital Encounter Non-Invasive [place] [address] Arrived documented as of this encounter Visit Diagnoses Not on filedocumented in this encounter Care Teams Self Contained Behavior Unit Teacher Relationship Specialty Start Date End Date Marques Martinez MD [address] [place] [address] PCP - General 04/01/10 04/08/11 documented as of this encounter
--- OUTSIDE RECORDS SUMMARY | 2024-03-03 07:58 | XMS_ITS | Encounter Summary ---
Author Organization [facility] [place] [address] Care Team Providers Care Teacher Aide Name Role Phone Marques Martinez MD Primary Care Provider [phone] Reason for Visit * Reason Comments Follow Up Fracture PATELLA FX DOI 03/23 10 Encounter Details Date Type Department Care Team (Late st Contact Info) Description 10/09/2010 12:40 PM EDT Office [place] [address] Jairon Gustafson MD [facility] [place] [address] Jose Francisco Bee PA [facility] [place] [address] Quadriceps tendon rupture (Primary Dx) Discharge Disposition: [...] [facility] Hospital Encounter Non-[place]vasive [place] [address] Arrived documented as of this encounter Visit Diagnoses Diagnosis Quadriceps tendon rupture- Primary Sprain and strain of other specified sites of knee and leg documented in this encounter Care Teams Teacher Aide Relationship Specialty Start Date End Date Marques Martinez MD [address] [place] [address] PCP - General 04/01/10 04/08/11 documented as of this encounter
--- OUTSIDE RECORDS SUMMARY | 2024-03-03 07:58 | XMS_ITS | Encounter Summary ---
Author Organization [facility] [place] [address] Care Team Providers Care Glass Designer Name Role Phone Donny Cooper MD Primary Care Provider [phone] Encounter Details Date Type Department Care Team (Late st Contact Info) Description 07/26/2019 Notes Only Cardiology at [address] [address] Maged Arguelles MD [facility] [place] [address] Social History Tobacco Use Types Packs/Day Years [...] his Medtronic biventricular ICD is reviewed. Suboptimal COOK HELPER PASTRY at 84%. Normal device function. Awaiting Holter to assess PVC burden. Maged Arguelles MD S Cardiac Electrophysiology 07/26/2019 9:04 AM documented in this encounter Plan of Treatment Upcoming Encounters Date Type Department Care Team (Late st Contact Info) Description 05/02/2024 10:00 AM EST Hospital Encounter Non-Invasive [place] [address] Arrived documented as of this encounter Visit Diagnoses Not on filedocumented in this encounter Care Teams Glass Designer Relationship Specialty Start Date End Date Donny Cooper MD [address] [place] [address] PCP - General Family Medicine 02/25/19 documented as of this encounter
--- OUTSIDE RECORDS SUMMARY | 2024-03-03 07:58 | XMS_ITS | Encounter Summary ---
Author Organization [facility] [place] [address] Care Team Providers Care Windows Architect Name Role Phone Marques Martinez MD Primary Care Provider [phone] Encounter Details Date Type Department Care Team (Late st Contact Info) Description 10/09/2010 11:35 AM EDT - 10/09/2010 11:59 PM EDT Hospital Encounter XRay at [address] [place] [address] Social History Tobacco Use Types [...] Cardiology Lab [facility] [place] [address] Arrived documented as of this encounter Visit Diagnoses Not on filedocumented in this encounter Care Teams Windows Architect Relationship Specialty Start Date End Date Marques Martinez MD [address] [place] [address] PCP - General 04/01/10 04/08/11 documented as of this encounter
--- OUTSIDE RECORDS SUMMARY | 2024-03-03 07:58 | XMS_ITS | Encounter Summary ---
[place] [address] Care Team Providers Care Computer Console Operator Name Role Phone Donny Cooper MD Primary Care Provider [phone] Encounter Details Date Type Department Care Team (Latest Contact Info) Description 10/05/2022 10:00 AM EDT - 10/05/2022 11:59 PM EDT Hospital Encounter Non-Invasive [place] [address] Discharge Disposition: Home Social History Tobacco Use [...] [facility] Hospital Encounter Non-Invasive [place] [address] Arrived documented as of [...] filedocumented in this encounter Care Teams Computer Console Operator Relationship Specialty Start Date End Date Donny Cooper MD [address] [place] [address] PCP - General Family Medicine 02/25/19 documented as of this encounter
--- OUTSIDE RECORDS SUMMARY | 2024-03-03 07:58 | XMS_ITS | Encounter Summary ---
Author Organization [facility] [place] [address] Care Team Providers Care Environmental Health And Safety Leader Name Role Phone Donny Cooper MD Primary Care Provider [phone] Encounter Details Date Type Department Care Team (Latest Contact Info) Description 06/13/2020 12:35 PM EST - 06/13/2020 11:59 PM EST Hospital Encounter Non-Invasive [place] [address] Alber Seals MD [facility] [place] [address] Cardiomyopathy, primary Discharge Disposition: Home Social History [...] AM EST Hospital Encounter Non-Invasive [place] [address] Arrived documented as of this encounter Procedures Procedure Name Priority Date/Time Associated Diagnosis Comments ICD INTERROGATION 3 MONTH Routine 06/13/2020 12:36 PM EST Cardiomyopathy, primary documented in this encounter Results * ICD INTERROGATION 3 MONTH (06/13/2020 12:36 PM EST) Anatomical Region Laterality Modality Other Narrative 06/14/2020 10:38 AM EST Cardiac Device Remote Monitoring Report Summary Medtronic Workana 06/14/20 Device: ASSOCIATE PROFESSOR COMPUTER SCIENCE-D Model: VIVA QUAD Battery: 2.96 v, estimated longevity 3 years, 11 months Pacing percentage: 78% ventricular paced Events: The presenting rhythm is atrial paced with biventricular pacing and frequent ventricular premature contractions No significant arrhythmias Impression Normal device function; suboptimal ASSOCIATE PROFESSOR COMPUTER SCIENCE pacing likely secondary to frequent PVCs. Should consider in clinic follow-up for further evaluation Follow Up As per schedule - in-clinic and remote ALBER SEALS MD Alber Seals MD IMPLANTABLE CARDIAC DEVICE documented in this encounter Visit Diagnoses Diagnosis Cardiomyopathy, primary Other primary cardiomyopathies documented in this encounter Care Teams Environmental Health And Safety Leader Relationship Specialty Start Date End Date Donny Cooper MD [address] [place] [address] PCP - General Family Medicine 02/25/19 documented as of this encounter
--- OUTSIDE RECORDS SUMMARY | 2024-03-03 07:58 | XMS_ITS | Encounter Summary ---
[place] [address] Care Team Providers Care Gandy Dancer Name Role Phone Donny Cooper MD Primary Care Provider [phone] Encounter Details Date Type Department Care Team (Latest Contact Info) Description 07/07/2022 10:00 AM EST - 07/07/2022 11:59 PM EST Hospital Encounter Non-Invasive Cardiology [place] [address] Discharge Disposition: Home Social History Tobacco Use [...] AM EST Hospital Encounter Non-Invasive Cardiology [place] [address] Arrived documented as of this [...] on filedocumented in this encounter Care Teams Gandy Dancer Relationship Specialty Start Date End Date Donny Cooper MD [address] [place] [address] PCP - General Family Medicine 02/25/19 documented as of this encounter
--- OUTSIDE RECORDS SUMMARY | 2024-03-03 07:58 | XMS_ITS | Encounter Summary ---
Author Organization [facility] [place] [address] Care Team Providers Care Testing Machine Operator Name Role Phone Marques Martinez MD Primary Care Provider [phone] Encounter Details Date Type Department Care Team (Late st Contact Info) Description 06/12/2010 2:10 PM EST Office [place] [address] Jairon Fenton MD [facility] [place] [address] Discharge Disposition: Home Social History Tobacco Use [...] AM EST Hospital Encounter Non-[place] [address] Arrived documented as of this encounter Visit Diagnoses Not on filedocumented in this encounter Care Teams Testing Machine Operator Relationship Specialty Start Date End Date Marques Martinez MD [address] [place] [address] PCP - General 04/01/10 04/08/11 documented as of this encounter
--- OUTSIDE RECORDS SUMMARY | 2024-03-03 07:58 | XMS_ITS | Encounter Summary ---
[place] [address] Care Team Providers Care Psychiatry Resident Name Role Phone Donny Cooper MD Primary Care Provider [phone] Encounter Details Date Type Department Care Team (Late st Contact Info) Description 03/17/2019 Telephone Cardiology at [address] [address] Sheri Quinn LNA Social History [...] AM EST Hospital Encounter Non-[place] [address] Arrived documented as of this encounter Visit Diagnoses Not on filedocumented in this encounter Care Teams Psychiatry Resident Relationship Specialty Start Date End Date Donny Cooper MD [address] [place] [address] PCP - General Family Medicine 02/25/19 documented as of this encounter
--- OUTSIDE RECORDS SUMMARY | 2024-03-03 07:58 | XMS_ITS | Encounter Summary ---
[place] [address] Care Team Providers Care Auriculotherapist Name Role Phone Donny Cooper MD Primary Care Provider [phone] Encounter Details Date Type Department Care Team (Latest Contact Info) Description 04/03/2023 10:00 AM EST - 04/03/2023 11:59 PM [facility] Hospital Encounter Non-Invasive [place] [address] Discharge Disposition: Home Social History Tobacco Use [...] st Contact Info) Description 05/02/2024 10:00 AM [facility] Hospital Encounter Non-Invasive [place] [address] Arrived documented as of this [...] on filedocumented in this encounter Care Teams Auriculotherapist Relationship Specialty Start Date End Date Donny Cooper MD [address] [place] [address] PCP - General Family Medicine 02/25/19 documented as of this encounter
--- OUTSIDE RECORDS SUMMARY | 2024-03-03 07:58 | XMS_ITS | Encounter Summary ---
Author Organization [facility] [place] [address] Care Team Providers Care Cold Rolling Coordinator Name Role Phone Clem Olvera MD Primary Care Provider [phone] Reason for Visit * Reason Comments Follow Up Fracture SP PATELLA FX DO12/12 DOI 03/30/10 Encounter Details Date Type Department Care Team (Late st Contact Info) Description 04/09/2011 1:30 PM EST Office [place] [address] Jairon Gustafson MD [facility] [place] [address] Jose Francisco Bee PA [facility] [place] [address] Patella fracture (Primary Dx) Discharge Disposition: Home [...] AM EST Hospital Encounter Non-[place] [address] Arrived documented as of this encounter Visit Diagnoses Diagnosis Patella fracture- Primary Closed fracture of patella documented in this encounter Care Teams Cold Rolling Coordinator Relationship Specialty Start Date End Date Clem Olvera MD [address] [place] [address] PCP - General 04/09/11 02/24/19 documented as of this encounter
--- OUTSIDE RECORDS SUMMARY | 2024-03-03 07:58 | XMS_ITS | Encounter Summary ---
Author Organization [facility] [place] [address] Care Team Providers Care Fulfillment Specialist Name Role Phone Donny Cooper MD Primary Care Provider [phone] Encounter Details Date Type Department Care Team (Latest Contact Info) Description 10/03/2022 10:00 AM EDT Office Visit Cardiology at [address] [address] Eleno No, [place] [facility] [place] [address] Cardiomyopathy, primary; Presence of cardiac resynchronization therapy defibrillator (CRIME PRE[employer]ION POLICE OFFICER-D); Diaphragmatic stimulation by cardiac pacemaker, initial [...] original note were not included. Cardiac Device CRIME PRE[employer]ION POLICE OFFICER-D Programming Evaluation Nabil Iglesias [id number] 10/03/2022 History: Mr. 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 [...] AM EST Hospital Encounter Non-Invasive Cardiology [place] [address] Arrived documented as of this encounter Procedures Procedure Name Priority Date/Time Associated Diagnosis Comments EKG 12-LEAD Routine 10/03/2022 11:00 AM EDT Cardiomyopathy, primary Presence of cardiac resynchronization therapy defibrillator (CRIME [employer]ION POLICE OFFICER-D) Diaphragmatic stimulation by cardiac pacemaker, initial encounter documented in this encounter Results * EKG 12 Lead (10/03/2022 11:00 AM EDT) Ventricular rate 74 BPM MUSE SYSTEM Atrial Rate 74 BPM MUSE SYSTEM P-R Interval 154 ms MUSE SYSTEM QRS Duration 162 ms MUSE SYSTEM Q-T Interval 470 ms MUSE SYSTEM QTC Calculated (Bezet) 521 ms MUSE SYSTEM Calculated P Roosevelt 30 degrees MUSE SYSTEM Calculated R Roosevelt -98 degrees MUSE SYSTEM Calculated T [place] 41 degrees MUSE SYSTEM INTERPRETATION Atrial-sense d [...] cardiomyopathies Presence of cardiac resynchronization therapy defibrillator (CRIME PREVENTION POLICE OFFICER-D) Diaphragmatic stimulation by cardiac pacemaker, initial encounter documented in this encounter Care Teams Fulfillment Specialist Relationship Specialty Start Date End Date Donny Cooper MD [address] [place] [address] PCP - General Family Medicine 02/25/19 documented as of this encounter
--- OUTSIDE RECORDS SUMMARY | 2024-03-03 07:58 | XMS_ITS | Encounter Summary ---
[place] [address] Care Team Providers Care Residential Roofer Name Role Phone Marques Martinez MD Primary Care Provider [phone] Encounter Details Date Type Department Care Team (Late st Contact Info) Description 10/03/2010 [place] [address] Marina Orosco, JADON Social History Tobacco Use Types Packs/Day Years Used Date Smoking Tobacco: Never Assessed Sex and Gender Information Value Date Recorded Sex Assigned at Not on file Gender Identity Not on file Sexual Orientation Not on file documented as of this encounter Plan of Treatment Upcoming Encounters Date Type Department Care Team (Late st Contact Info) Description 05/02/2024 10:00 AM [facility] Hospital Encounter Non-[place] [address] Arrived documented as of this encounter Visit Diagnoses Not on filedocumented in this encounter Care Teams Residential Roofer Relationship Specialty Start Date End Date Marques Martinez MD [address] [place] [address] PCP - General 04/01/10 04/08/11 documented as of this encounter
--- OUTSIDE RECORDS SUMMARY | 2024-03-03 07:58 | XMS_ITS | Encounter Summary ---
Author [place] [address] Care Team Providers Care Refiner Operator Name Role Phone Donny Cooper MD Primary Care Provider [phone] Encounter Details Date Type Department Care Team (Latest Contact Info) Description 04/08/2022 10:00 AM EST - 04/08/2022 11:59 PM [facility] Hospital Encounter [place] [address] Discharge Disposition: Home Social History Tobacco Use [...] AM EST Hospital Encounter Non[place] [address] Arrived documented as of this [...] on filedocumented in this encounter Care Teams Refiner Operator Relationship Specialty Start Date End Date Donny Cooper MD [address] [place] [address] PCP - General Family Medicine 02/25/19 documented as of this encounter
--- OUTSIDE RECORDS SUMMARY | 2024-03-03 07:58 | XMS_ITS | Encounter Summary ---
[place] [address] Care Team Providers Care District Wire Chief Name Role Phone Donny Cooper MD Primary Care Provider [phone] Encounter Details Date Type Department Care Team (Latest Contact Info) Description 07/02/2023 10:00 AM EST - 07/02/2023 11:59 PM EST Hospital Encounter Non[place] [address] Discharge Disposition: Home Social History Tobacco Use [...] [facility] Hospital Encounter Non-[place] [address] Arrived documented as of this encounter Visit Diagnoses Not on filedocumented in this encounter Care Teams District Wire Chief Relationship Specialty Start Date End Date Donny Cooper MD [address] [place] [address] PCP - General Family Medicine 02/25/19 documented as of this encounter
--- OUTSIDE RECORDS SUMMARY | 2024-03-03 07:58 | XMS_ITS | Encounter Summary ---
Author Organization [facility] [place] [address] Care Team Providers Care Hotel Attendant Name Role Phone Donny Cooper MD Primary Care Provider [phone] Encounter Details Date Type Department Care Team (Latest Contact Info) Description 12/18/2020 11:57 AM EDT - 12/18/2020 11:59 PM EDT Hospital Encounter Non-Invasive [place] [address] Maged Arugelles MD [facility] [place] [address] Cardiomyopathy, primary Discharge Disposition: Home Social History [...] AM EST Hospital Encounter Non-Invasive [place] [address] Arrived documented as of this encounter Procedures Procedure Name Priority Date/Time Associated Diagnosis Comments ICD INTERROGATION 3 MONTH Routine 12/18/2020 12:00 PM EDT Cardiomyopathy, primary documented in this encounter Results * ICD INTERROGATION 3 MONTH (12/18/2020 12:00 PM EDT) Anatomical Region Laterality Modality Other Narrative 12/23/2020 11:08 PM EDT MDT OPHTHALMIC TECHNOLOGIST-D remote reviewed. Normal device function. Inadequate OPHTHALMIC TECHNOLOGIST at 80%. Maged Arguelles MD [facility] Cardiac Electrophysiology 12/23/2020 11:06 PM Maged Arguelles MD IMPLANTABLE CARDIAC DEVICE documented in this encounter Visit Diagnoses Diagnosis Cardiomyopathy, primary Other primary cardiomyopathies documented in this encounter Care Teams Hotel Attendant Relationship Specialty Start Date End Date Donny Cooper MD [address] [facility] [place] [address] PCP - General Family Medicine 02/25/19 documented as of this encounter
--- OUTSIDE RECORDS SUMMARY | 2024-03-03 07:58 | XMS_ITS | Encounter Summary ---
[place] [address] Care Team Providers Care Blemish Remover Name Role Phone Donny Cooper MD Primary Care Provider [phone] Encounter Details Date Type Department Care Team (Latest Contact Info) Description 01/03/2023 10:00 AM EDT - 01/03/2023 11:59 PM EDT Hospital Encounter Non-[place] [address] Discharge Disposition: Home Social History Tobacco Use [...] st Contact Info) Description 05/02/2024 10:00 AM [facility] Hospital Encounter Non-[place] [address] Arrived documented as of this [...] on filedocumented in this encounter Care Teams Blemish Remover Relationship Specialty Start Date End Date Donny Cooper MD [address] [place] [address] PCP - General Family Medicine 02/25/19 documented as of this encounter
--- OUTSIDE RECORDS SUMMARY | 2024-03-03 07:58 | XMS_ITS | Encounter Summary ---
[place] [address] Care Team Providers Care What Job Titles Mean Name Role Phone Donny Cooper MD Primary Care Provider [phone] Encounter Details Date Type Department Care Team (Latest Contact Info) Description 08/06/2023 10:00 AM EDT - 08/06/2023 11:59 PM EDT Hospital Encounter Non-[place] [address] Discharge Disposition: Home Social History Tobacco Use [...] [facility] Hospital Encounter Non-[place] [address] Arrived documented as of this encounter Visit Diagnoses Not on filedocumented in this encounter Care Teams What Job Titles Mean Relationship Specialty Start Date End Date Donny Cooper MD [address] [place] [address] PCP - General Family Medicine 02/25/19 documented as of this encounter
--- OUTSIDE RECORDS SUMMARY | 2024-03-03 07:58 | XMS_ITS | Encounter Summary ---
[place] [address] Care Team Providers Care Fur Dressing Supervisor Name Role Phone Donny Cooper MD Primary Care Provider [phone] Encounter Details Date Type Department Care Team (Late st Contact Info) Description 06/14/2020 Telephone Cardiology at [address] [address] Nhung Briggs Social History Tobacco Use Types [...] would like to be seen at [facility]. Email sent to Brittaney Hernandez at [facility] asking her to reach out to pt to set up the appt with either Dr. Arguelles or LANG Albert. Nhung Allen Electrophysiology Scheduling [id number] option 2 documented in this encounter Plan of Treatment Upcoming Encounters Date Type Department Care Team (Late st Contact Info) Description 05/02/2024 10:00 AM EST Hospital Encounter Non[place] [address] Arrived documented as of this encounter Visit Diagnoses Not on filedocumented in this encounter Care Teams Fur Dressing Supervisor Relationship Specialty Start Date End Date Donny Cooper MD [address] [place] [address] PCP - General Family Medicine 02/25/19 documented as of this encounter
--- OUTSIDE RECORDS SUMMARY | 2024-03-03 07:58 | XMS_ITS | Encounter Summary ---
Author Organization [facility] [place] [address] Care Team Providers Care Manufacturers Agent Name Role Phone Donny Cooper MD Primary Care Provider [phone] Encounter Details Date Type Department Care Team (Latest Contact Info) Description 06/25/2021 3:23 PM EST - 06/25/2021 11:59 PM EST Hospital Encounter [place] [address] Alber Seals MD [facility] [place] [address] Cardiomyopathy, primary Discharge Disposition: Home Social History [...] AM EST Hospital Encounter Non[place] [address] Arrived documented as of this encounter Procedures Procedure Name Priority Date/Time Associated Diagnosis Comments ICD INTERROGATION 3 MONTH Routine 06/25/2021 3:24 PM EST Cardiomyopathy, primary documented in this encounter Results * ICD INTERROGATION 3 MONTH (06/25/2021 3:24 PM EST) Anatomical Region Laterality Modality Other Narrative 06/25/2021 3:42 PM EST Cardiac Device Remote Monitoring Report Summary Medtronic Carelink Device: TOP FORMER-D Model: VIVA QUAD Battery: 2.95 v, estimated longevity 2 years 6 months Pacing percentage: 90% TOP FORMER paced Events: Presenting rhythm: atrial paced/biventricular paced Frequent PVC's Impression Normal device function Follow Up As per schedule - in-clinic and remote ALBER SEALS MD 06/25/21 Alber Seals MD IMPLANTABLE CARDIAC DEVICE documented in this encounter Visit Diagnoses Diagnosis Cardiomyopathy, primary Other primary cardiomyopathies documented in this encounter Care Teams Manufacturers Agent Relationship Specialty Start Date End Date Donny Cooper MD [address] [place] [address] PCP - General Family Medicine 02/25/19 documented as of this encounter
--- OUTSIDE RECORDS SUMMARY | 2024-03-03 07:58 | XMS_ITS | Encounter Summary ---
[place] [address] Care Team Providers Care Home Visitor Home Base Head Start Name Role Phone Marques Martinez MD Primary Care Provider [phone] Encounter Details Date Type Department Care Team (Late st Contact Info) Description 05/01/2010 2:40 PM EST Procedure visit [place] [address] Social History Tobacco Use Types Packs/Day Years [...] AM EST Hospital Encounter Non[place] [address] Arrived documented as of this encounter Visit Diagnoses Not on filedocumented in this encounter Care Teams Home Visitor Home Base Head Start Relationship Specialty Start Date End Date Marques Martinez MD [address] [place] [address] PCP - General 04/01/10 04/08/11 documented as of this encounter
== END 2024-03-03 23:59 | disposition home or self-care (01) ==
LOC: CR 07:56
PROVIDERS: PCP Family Medicine; Visit Provider Internal Medicine Cardiovascular Disease
DX: R69 Illness, unspecified (principal)

== ENCOUNTER → 2024-03-03 12:54 | Outpatient (BNVA) | payer MEDICARE, SELFPAY | PROVIDERS: PCP Family Medicine; Referring Provider Family Medicine; Visit Provider Internal Medicine Cardiovascular Disease | DX: I42.9 Cardiomyopathy, unspecified (principal); I25.10 Atherosclerotic heart disease of native coronary artery without angina pectoris; Z95.810 Presence of automatic (implantable) cardiac defibrillator | CPT/HCPCS: 99213 ==

== ENCOUNTER 2024-03-24 07:58 | Outpatient (RCR) | payer SELFPAY ==
[2024-03-04 00:26] VITALS: BP 121/62; PULSE 71
--- OUTSIDE RECORDS SUMMARY | 2024-03-10 08:10 | XMS_ITS | Encounter Summary ---
Author Organization [facility] Address [address] [place] [address] Care Team Providers Care Offset Plate Preparation Supervisor Name Role Phone Clem Olvera MD Primary Care Provider [phone] Reason for Referral * Cardiology (3 - 10 Business Days) - Closed Specialty Diagnoses / Procedures [facility]erred To Contact Diagnoses ICD (implantable cardioverter-defibrillator) battery depletion Pacemaker lead failure, initial encounter 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 Procedures IMPLANTABLE CARDIAC DEFIBRILLATOR PROCEDURE Navdeep Hurd MD [address] [place], [place] [address] [address] [place] [address] Referral ID Status Reason Start Date Expiration Date Visits Re quested Visits Authorized [id number] Closed 02/13/2016 1 1 Encounter Details Date Type Department Care Team (Latest Contact Info) Description 02/13/2016 Pre-Procedure Orders Encounter [facility] CARDIOLOGY [address], [place] [address] Navdeep Hurd MD [address] [facility] [address] [place] [address] ICD (implantable cardioverter-defibril lator) battery [...] 8 EDT Narrative 02/27/2016 15:17 EDT *Cardiology* [address] [place] [address] Lead Revision (Report amended ) Patient: Naibl Iglesias ?Study Date: ?02/27/2016 ? Accession #: ? [id number] : ? 1940 Referring: Clem Olvera Attending: [...] glide wire a Nick MENDOZAW 6F (Formerly [facility]) 6 mm-40 mm balloon dilation [...] Venograms were performed in the MOORE and DIVEHI projections and a suitable mid-lateral LV branch [...] fascia. The leads were connected to a EKG TECH-D device. Device and Lead detail in [...] Implanted device: Medtronic - Viva Quad XT EKG TECH-D DF4 - Serial number: [id number] Explanted device: Medtronic - Viva XT EKG TECH-D DF4 - Serial number: [id number]. LEAD PARAMETERS + + + + + [...] + + + + + Serial number [id number] ? [id number] ?? [id number] ?? [id number] ? + + + + [...] Gulshan Drummond MD - 05/12/2016 *Cardiology* [address] [place] [address] Lead Revision (Report amended ) Patient: Nabil [...] therefore over an 0.35 glide wire [facility] ([facility]) 6 mm-40 mm balloon dilation [...] Venograms were performed in the MOORE and DIVEHI projections and a suitable mid-lateral LV branch [...] fascia. The leads were connected to a EKG TECH-D device. Device and Lead detail in [...] Implanted device: Medtronic - Viva Quad XT EKG TECH-D DF4 - Serial number: [id number] Explanted device: Medtronic - Viva XT EKG TECH-D DF4 - Serial number: [id number]. LEAD PARAMETERS + + + + + + Lead # 1 2 3 4 + + + + + + Chamber RA RV LV LV + + + + + + Date 07/19/2002 07/18/2013 02/27/2016 07/18/2013 implanted + + + + + + Model St. Esa Medtronic Medtronic Enpath information 6318 [id number] Attain Epicardial Performa 4298 + + + + + + Serial number [id number] + + + + + + [...] situ documented in this encounter Care Teams Offset Plate Preparation Supervisor Relationship Specialty Start Date End Date Clem Olvera MD [address] [place] [address] PCP - General 12/18/15 documented as of this encounter
--- OUTSIDE RECORDS SUMMARY | 2024-03-10 08:10 | XMS_ITS | Clinical Summary ---
Author Organization [facility] Address [address] [place] [address] Care Team Providers Care Skiver Blockers Name Role Phone Clem Olvera MD Primary Care Provider [phone] Allergies No known active allergies Medications Medication [...] INSERTION 05/04/2002 - 05/03/20032013 second pacemaker [facility] Medical History Medical History Date Comments [...] Advance Directives For more information, please contact: [phone] * Full Code (Latest Code Status on File) Date Activated Date Inactivated Comments 02/27/2016 8:49 02/28/2016 15:40 Question Answer Comments Reason for decision includes: Full code consistent with overall plan of care Who participated in the discussion? Not Discusse d Care Teams Skiver Blockers Relationship Specialty Start Date End Date Clem Olvera MD [address] [place] [address] PCP - General 12/18/15
--- OUTSIDE RECORDS SUMMARY | 2024-03-10 08:10 | XMS_ITS | Encounter Summary ---
Author Organization [facility] Address [address] [place] [address] Care Team Providers Care Career Counselor Name Role Phone Unavailable Primary Care Provider Unavailabl e Encounter Details Date Type Department Care Team (Late st Contact Info) Description 05/06/2001 Results Only [facility] - [facility] conversion [address] [place] [address] Hernandez Partida MD [address] [place] [address] Social History Tobacco Use Types Packs/Day Years [...] is submitted entirely in cassette (B). ??(Naty Caal)/[facility] End of Report [facility] 05/06/2001 05/07/2001 9:2 5 EST Hernandez Partida MD PATHOLOGY ORDERABLES [facility] [address] [place] [address] documented in this encounter Visit Diagnoses Not on filedocumented in this encounter
--- OUTSIDE RECORDS SUMMARY | 2024-03-10 08:10 | XMS_ITS | Encounter Summary ---
Author Organization [facility] [place] [address] Care Team Providers Care Corporate Quality Manager Name Role Phone Donny Cooper MD Primary Care Provider [phone] Encounter Details Date Type Department Care Team (Late st Contact Info) Description 07/26/2019 Notes Only Cardiology at [address] [address] Maged Arguelles MD [facility] [place] [address] Social History Tobacco Use Types Packs/Day Years [...] his Medtronic biventricular ICD is reviewed. Suboptimal GEOLOGIC TECHNICIAN at 84%. Normal device function. Awaiting Holter to assess PVC burden. Maged Arguelles MD S Cardiac Electrophysiology 07/26/2019 9:04 AM documented in this encounter Plan of Treatment Upcoming Encounters Date Type Department Care Team (Late st Contact Info) Description 05/02/2024 10:00 AM EST Hospital Encounter Non-Invasive [place] [address] Arrived documented as of this encounter Visit Diagnoses Not on filedocumented in this encounter Care Teams Corporate Quality Manager Relationship Specialty Start Date End Date Donny Cooper MD [address] [place] [address] PCP - General Family Medicine 02/25/19 documented as of this encounter
--- OUTSIDE RECORDS SUMMARY | 2024-03-10 08:10 | XMS_ITS | Encounter Summary ---
Author Organization [facility] [place] [address] Care Team Providers Care Operations Advisor Name Role Phone Marques Martinez MD Primary Care Provider [phone] Encounter Details Date Type Department Care Team (Late st Contact Info) Description 09/11/2010 Orders [place] [address] Jairon Fenton MD [facility] [place] [address] Fracture of patella, left, closed (Primary Dx) [...] [facility] Encounter Non-Invasive [place] [address] Arrived documented as of this encounter Visit Diagnoses Diagnosis Fracture of patella, left, closed- Primary Closed fracture of patella documented in this encounter Care Teams Operations Advisor Relationship Specialty Start Date End Date Marques Martinez MD [address] [place] [address] PCP - General 04/01/10 04/08/11 documented as of this encounter
--- OUTSIDE RECORDS SUMMARY | 2024-03-10 08:10 | XMS_ITS | Encounter Summary ---
Author [facility] [place] [address] Care Team Providers Care Business Consultant Name Role Phone Donny Cooper MD Primary Care Provider [phone] Encounter Details Date Type Department Care Team (Latest Contact Info) Description 10/03/2022 10:00 AM EDT Office Visit Cardiology at [address] [address] El[place] No, [place] [facility] [place] [address] Cardiomyopathy, primary; Presence of cardiac resynchronization therapy defibrillator (NUTRITION INTERNSHIP-D); Diaphragmatic stimulation by cardiac pacemaker, initial [...] original note were not included. Cardiac Device NUTRITION INTERNSHIP-D Programming Evaluation Nabil Iglesias [id number] 10/03/2022 History: Mr. Iglesias is a pleasant [...] OFF Pacing Mode: DDD 60/130/120 Presenting EGMs: -BP/-FLIGHT RESERVATIONS MANAGER Underlying Rhythm: CHB with no obvious [...] AM EST Hospital Encounter Non-[place] [address] Arrived documented as of this encounter Procedures Procedure Name Priority Date/Time Associated Diagnosis Comments EKG 12-LEAD Routine 10/03/2022 11:00 AM EDT Cardiomyopathy, primary Presence of cardiac resynchronization therapy defibrillator (NUTRITION INTERNSHIP-D) Diaphragmatic stimulation by cardiac pacemaker, initial encounter documented in this encounter Results * EKG 12 Lead (10/03/2022 11:00 AM EDT) Ventricular rate 74 BPM MUSE SYSTEM Atrial Rate 74 BPM MUSE SYSTEM P-R Interval 154 ms MUSE SYSTEM QRS Duration 162 ms MUSE SYSTEM Q-T Interval 470 ms MUSE SYSTEM QTC Calculated (Bezet) 521 ms MUSE SYSTEM Calculated P [place] 30 degrees MUSE SYSTEM Calculated R [place] -98 degrees MUSE SYSTEM Calculated T [place] 41 degrees MUSE SYSTEM INTERPRETATION Atrial-sense d [...] cardiomyopathies Presence of cardiac resynchronization therapy defibrillator (NUTRITION INTERNSHIP-D) Diaphragmatic stimulation by cardiac pacemaker, initial encounter documented in this encounter Care Teams Business Consultant Relationship Specialty Start Date End Date Donny Cooper MD [address] [place] [address] PCP - General Family Medicine 02/25/19 documented as of this encounter
--- OUTSIDE RECORDS SUMMARY | 2024-03-10 08:10 | XMS_ITS | Encounter Summary ---
[place] [address] Care Team Providers Care Residential Care Officer Name Role Phone Marques Martinez MD Primary Care Provider [phone] Encounter Details Date Type Department Care Team (Late st Contact Info) Description 10/03/2010 [place] [address] Marina Orosco, JADON Social History Tobacco Use [...] [facility] Hospital Encounter Non-Invasive [place] [address] Arrived documented as of this encounter Visit Diagnoses Not on filedocumented in this encounter Care Teams Residential Care Officer Relationship Specialty Start Date End Date Marques Martinez MD [address] [place] [address] PCP - General 04/01/10 04/08/11 documented as of this encounter
--- OUTSIDE RECORDS SUMMARY | 2024-03-10 08:10 | XMS_ITS | Encounter Summary ---
Author Organization [facility] Address [address] [place] [address] Care Team Providers Care Construction Controller Name Role Phone Clem Olvera MD Primary Care Provider [phone] Reason for Visit * Reason Onset Date Comments Other 04/04/2019 Transfer request for Pacer Care at [facility] Encounter Details Date Type Department Care Team (Late st Contact Info) Description 04/04/2019 Telephone [facility] [address] [place] [address] Giselle Hill, FIRE LIEUTENANT Other (Transfer request for Pacer Care at [...] 04/04/2019 1503 EST I went into the [employer] Website and released pt to [facility] [...] on filedocumented in this encounter Care Teams Construction Controller Relationship Specialty Start Date End Date Clem Olvera MD [address] [place] [address] PCP - General 12/18/15 documented as of this encounter
--- OUTSIDE RECORDS SUMMARY | 2024-03-10 08:10 | XMS_ITS | Encounter Summary ---
Author Organization [facility] [place] [address] Care Team Providers Care Proced Tech Name Role Phone Donny Cooper MD Primary Care Provider [phone] Encounter Details Date Type Department Care Team (Latest Contact Info) Description 06/25/2021 3:23 PM EST - 06/25/2021 11:59 PM EST Hospital Encounter Non-[place]vasive [place] [address] Alber Seals MD [facility] [place] [address] Cardiomyopathy, primary Discharge Disposition: Home Social History [...] AM EST Hospital Encounter Non-Invasive [place] [address] Arrived documented as of this encounter Procedures Procedure Name Priority Date/Time Associated Diagnosis Comments ICD INTERROGATION 3 MONTH Routine 06/25/2021 3:24 PM EST Cardiomyopathy, primary documented in this encounter Results * ICD INTERROGATION 3 MONTH (06/25/2021 3:24 PM EST) Anatomical Region Laterality Modality Other Narrative 06/25/2021 3:42 PM EST Cardiac Device Remote Monitoring Report Summary Medtronic Carelink Device: CUSTODIAL AIDE-D Model: VIVA QUAD Battery: 2.95 v, estimated longevity 2 years 6 months Pacing percentage: 90% CUSTODIAL AIDE paced Events: Presenting rhythm: atrial paced/biventricular paced Frequent PVC's Impression Normal device function Follow Up As per schedule - in-clinic and remote ALBER SEALS MD 06/25/21 Alber Seals MD IMPLANTABLE CARDIAC DEVICE documented in this encounter Visit Diagnoses Diagnosis Cardiomyopathy, primary Other primary cardiomyopathies documented in this encounter Care Teams Proced Tech Relationship Specialty Start Date End Date Donny Cooper MD [address] [place] [address] PCP - General Family Medicine 02/25/19 documented as of this encounter
--- OUTSIDE RECORDS SUMMARY | 2024-03-10 08:10 | XMS_ITS | Encounter Summary ---
Author Organization [facility] Address [address] [place] [address] Care Team Providers Care Cleaner And Preparer Name Role Phone Clem Olvera MD Primary Care Provider [phone] Encounter Details Date Type Department Care Team (Latest Contact Info) Description 12/20/2015 10:52 EDT - 12/20/2015 23:52 EDT Hospital Encounter [facility] Cardiovascular Unit [address] [place] [address] Navdeep Hurd MD [address] [place] [address] [address] Discharge Disposition: Home or Self [...] no need to beNPO or have a rolloff truck driver. However, his will be accompanying him. They [place] someone to the airport [place] 1000 and then will come here and check-in around 1145. He agrees to have a shower. documented in this encounter Procedure Notes * Fantasma Dhillon MD - 12/20/2015 1356 EDT IR Brief Procedure Note Attending: Leo Lay Out Helper: Alejo Pre-op Dx: Arrhythmia, need for pacemaker [...] 12/19 documented in this encounter Care Teams Cleaner And Preparer Relationship Specialty Start Date End Date Clem Olvera MD [address] [place] [address] PCP - General 12/18/15 documented as of this encounter
--- OUTSIDE RECORDS SUMMARY | 2024-03-10 08:10 | XMS_ITS | Encounter Summary ---
[place] [address] Care Team Providers Care Plant Anatomy Teacher Name Role Phone Donny Cooper MD Primary Care Provider [phone] Encounter Details Date Type Department Care Team (Latest Contact Info) Description 04/03/2023 10:00 AM EST - 04/03/2023 11:59 PM [facility] Hospital Encounter Non-Invasive [place] [address] Discharge Disposition: Home Social History Tobacco Use [facility] Non[facility]vasive [place] [address] Arrived documented as of this [...] on filedocumented in this encounter Care Teams Plant Anatomy Teacher Relationship Specialty Start Date End Date Donny Cooper MD [address] [place] [address] PCP - General Family Medicine 02/25/19 documented as of this encounter
--- OUTSIDE RECORDS SUMMARY | 2024-03-10 08:10 | XMS_ITS | Encounter Summary ---
Author Organization [facility] Address [address] [place] [address] Care Team Providers Care Mattress Stuffer Name Role Phone Unknown, Provider Primary Care Provider Clem Alcala MD Primary Care Provider [phone] Encounter Details Date Type Department Care Team (Late st Contact Info) Description 11/29/2015 Pre-Procedure Orders Encounter [facility] CARDIOLOGY [address] [place], [place] [address] Navdeep Hurd MD [address] [place] [address] [address] Social History Tobacco Use Types [...] Date: 12/20/2015 Patient: Nabil Streeter. Attending: Dr. Dean Bailey Electrical And Instrument Technician: Dr. Fantasma Dhillon History/indication: The patient [...] Patient: Nabil Streeter Attending: Dr. Dean Bailey Electrical And Instrument Technician: Dr. Fantasma Dhillon History/indication: The patient [...] agree with the findings. Navdeep Hurd MD IMG IR ORDERABL ES documented in this encounter Visit Diagnoses Not on filedocumented in this encounter Care Teams Mattress Stuffer Relationship Specialty Start Date End Date Unknown, Provider, PCP - General 12/06/12 12/17/15 Clem Olvera MD [address] [place] [address] PCP - General 12/18/15 documented as of this encounter
--- OUTSIDE RECORDS SUMMARY | 2024-03-10 08:10 | XMS_ITS | Encounter Summary ---
Author Organization [facility] [place] [address] Care Team Providers Care Machine I Engraver Name Role Phone Donny Cooper MD Primary Care Provider [phone] Encounter Details Date Type Department Care Team (Latest Contact Info) Description 06/13/2020 12:35 PM EST - 06/13/2020 11:59 PM EST Hospital Encounter Non-Invasive [place] [address] Alber Seals MD [facility] [place] [address] Cardiomyopathy, primary Discharge Disposition: Home Social History [...] AM EST Hospital Encounter Non-Invasive [place] [address] Arrived documented as of this encounter Procedures Procedure Name Priority Date/Time Associated Diagnosis Comments ICD INTERROGATION 3 MONTH Routine 06/13/2020 12:36 PM EST Cardiomyopathy, primary documented in this encounter Results * ICD INTERROGATION 3 MONTH (06/13/2020 12:36 PM EST) Anatomical Region Laterality Modality Other Narrative 06/14/2020 10:38 AM EST Cardiac Device Remote Monitoring Report Summary [employer] 06/14/20 Device: FEED AND FARM MANAGEMENT ADVISER-D Model: VIVA QUAD Battery: 2.96 v, estimated longevity 3 years, 11 months Pacing percentage: 78% ventricular paced Events: The presenting rhythm is atrial paced with biventricular pacing and frequent ventricular premature contractions No significant arrhythmias Impression Normal device function; suboptimal FEED AND FARM MANAGEMENT ADVISER pacing likely secondary to frequent PVCs. Should consider in clinic follow-up for further evaluation Follow Up As per schedule - in-clinic and remote ALBER SEALS MD Alber Seals MD IMPLANTABLE CARDIAC DEVICE documented in this encounter Visit Diagnoses Diagnosis Cardiomyopathy, primary Other primary cardiomyopathies documented in this encounter Care Teams Machine I Engraver Relationship Specialty Start Date End Date Donny Cooper MD [address] [place] [address] PCP - General Family Medicine 02/25/19 documented as of this encounter
--- OUTSIDE RECORDS SUMMARY | 2024-03-10 08:10 | XMS_ITS | Encounter Summary ---
Author Organization [facility] [address] [address] Care Team Providers Care Felling Machine Operator Name Role Phone Donny Cooper MD Primary Care Provider [phone] Encounter Details Date Type Department Care Team (Latest Contact Info) Description 12/18/2020 11:57 AM EDT - 12/18/2020 11:59 PM EDT Hospital Encounter [place] [address] Maged Arguelles MD [facility] [place] [address] Cardiomyopathy, primary Discharge Disposition: Home Social History [...] AM EST Hospital Encounter Non-[place] [address] Arrived documented as of this encounter Procedures Procedure Name Priority Date/Time Associated Diagnosis Comments ICD INTERROGATION 3 MONTH Routine 12/18/2020 12:00 PM EDT Cardiomyopathy, primary documented in this encounter Results * ICD INTERROGATION 3 MONTH (12/18/2020 12:00 PM EDT) Anatomical Region Laterality Modality Other Narrative 12/23/2020 11:08 PM EDT MDT CARPET WEAVER-D remote reviewed. Normal device function. Inadequate CARPET WEAVER at 80%. Maged Arguelles MD [facility] Cardiac Electrophysiology 12/23/2020 11:06 PM Maged Arguelles MD IMPLANTABLE CARDIAC DEVICE documented in this encounter Visit Diagnoses Diagnosis Cardiomyopathy, primary Other primary cardiomyopathies documented in this encounter Care Teams Felling Machine Operator Relationship Specialty Start Date End Date Donny Cooper MD [address] [facility] [place] [address] PCP - General Family Medicine 02/25/19 documented as of this encounter
--- OUTSIDE RECORDS SUMMARY | 2024-03-10 08:10 | XMS_ITS | Encounter Summary ---
[place] [address] Care Team Providers Care Oven Dauber Name Role Phone Donny Cooper MD Primary Care Provider [phone] Encounter Details Date Type Department Care Team (Latest Contact Info) Description 08/06/2023 10:00 AM EDT - 08/06/2023 11:59 PM EDT Hospital Encounter Non-Invasive [place] [address] Discharge Disposition: Home Social History Tobacco Use [...] [facility] Hospital Encounter Non-Invasive [place] [address] Arrived documented as of this encounter Visit Diagnoses Not on filedocumented in this encounter Care Teams Oven Dauber Relationship Specialty Start Date End Date Donny Cooper MD [address] [place] [address] PCP - General Family Medicine 02/25/19 documented as of this encounter
--- OUTSIDE RECORDS SUMMARY | 2024-03-10 08:10 | XMS_ITS | Encounter Summary ---
Author Organization [facility] [place] [address] Care Team Providers Care Lacing Cutter Name Role Phone Marques Martinez MD Primary Care Provider [phone] Encounter Details Date Type Department Care Team (Late st Contact Info) Description 06/12/2010 2:10 PM EST Office [place] [address] Jairon Fenton MD [facility] [place] [address] Discharge Disposition: Home Social History Tobacco Use [...] AM EST Hospital Encounter Non-Invasive [place] [address] Arrived documented as of this encounter Visit Diagnoses Not on filedocumented in this encounter Care Teams Lacing Cutter Relationship Specialty Start Date End Date Marques Martinez MD [address] [place] [address] PCP - General 04/01/10 04/08/11 documented as of this encounter
--- OUTSIDE RECORDS SUMMARY | 2024-03-10 08:10 | XMS_ITS | Encounter Summary ---
[place] [address] Care Team Providers Care Wellness Instructor Name Role Phone Marques Martinez MD Primary Care Provider [phone] Encounter Details Date Type Department Care Team (Late st Contact Info) Description 05/01/2010 2:40 PM EST Procedure visit [place] [address] Social History Tobacco Use Types Packs/Day Years [...] Hospital Encounter Non-[place]vasive [place] [address] Arrived documented as of this encounter Visit Diagnoses Not on filedocumented in this encounter Care Teams Wellness Instructor Relationship Specialty Start Date End Date Marques Martinez MD [address] [place] [address] PCP - General 04/01/10 04/08/11 documented as of this encounter
--- OUTSIDE RECORDS SUMMARY | 2024-03-10 08:10 | XMS_ITS | Encounter Summary ---
[place] [address] Care Team Providers Care Maintenance Of Way Superintendent Name Role Phone Donny Cooper MD Primary Care Provider [phone] Encounter Details Date Type Department Care Team (Late st Contact Info) Description 12/28/2023 Notes Only Cardiology at [address] [address] Kanika Shell Social History Tobacco Use Types [...] [facility] Hospital Encounter [place] [address] Arrived documented as of this encounter Visit Diagnoses Not on filedocumented in this encounter Care Teams Maintenance Of Way Superintendent Relationship Specialty Start Date End Date Donny Cooper MD [address] [place] [address] PCP - General Family Medicine 02/25/19 documented as of this encounter
--- OUTSIDE RECORDS SUMMARY | 2024-03-10 08:10 | XMS_ITS | Encounter Summary ---
[place] [address] Care Team Providers Care Primer Supervisor Name Role Phone Donny Cooper MD Primary Care Provider [phone] Encounter Details Date Type Department Care Team (Latest Contact Info) Description 02/02/2024 10:00 AM EDT - 02/02/2024 11:59 PM EDT Hospital Encounter [place] [address] Discharge Disposition: Home Social History Tobacco Use [...] [facility] Hospital Encounter [place] [address] Arrived documented as of this encounter Visit Diagnoses Not on filedocumented in this encounter Care Teams Primer Supervisor Relationship Specialty Start Date End Date Donny Cooper MD [address] [place] [address] PCP - General Family Medicine 02/25/19 documented as of this encounter
--- OUTSIDE RECORDS SUMMARY | 2024-03-10 08:10 | XMS_ITS | Encounter Summary ---
[place] [address] Care Team Providers Care Conference Center Coordinator Name Role Phone Donny Cooper MD Primary Care Provider [phone] Encounter Details Date Type Department Care Team [...] [facility] Hospital Encounter Non-Invasive [place] [address] Arrived documented as of this encounter Visit Diagnoses Not on filedocumented in this encounter Care Teams Conference Center Coordinator Relationship Specialty Start Date End Date Donny Cooper MD [address] [place] [address] PCP - General Family Medicine 02/25/19 documented as of this encounter
--- OUTSIDE RECORDS SUMMARY | 2024-03-10 08:10 | XMS_ITS | Encounter Summary ---
[place] [address] Care Team Providers Care Cut Off Man Name Role Phone Donny Cooper MD Primary Care Provider [phone] Encounter Details Date Type Department Care Team (Late st Contact Info) Description 01/05/2024 Telephone Cardiology at [address] [address] Kanika Shell Social History Tobacco [...] Encounter Non-Invasive [place] [address] Arrived documented as of this encounter Visit Diagnoses Not on filedocumented in this encounter Care Teams Cut Off Man Relationship Specialty Start Date End Date Donny Cooper MD [address] [place] [address] PCP - General Family Medicine 02/25/19 documented as of this encounter
--- OUTSIDE RECORDS SUMMARY | 2024-03-10 08:10 | XMS_ITS | Encounter Summary ---
Author Organization [facility] Address [address] [place] [address] Care Team Providers Care Street Photographer Name Role Phone Clem Olvera MD Primary Care Provider [phone] Reason for Referral * (Routine) - Closed Specialty Diagnoses / Procedures Referred By Pedro madera Referred To Contact Beatrice De La Garza NP [address] [place] [phone] Referral ID Status Reason Start Date Expiration Date V isits Requested Visits Authorized [id number] Closed Specialty Services Required 02/27/2016 1 1 Comments You must contact us if we have not contacted you or you have missed your scheduled appointment. If you have any nursing questions, please don't hesitate to call the Cardiac Arrhythmia Service at [facility] at [phone] or , extension [phone]. For any scheduling of appointments, please call [phone] or , extension [phone]. . * (Routine) - Closed Specialty Diagnoses / Procedures Referred By Pedro madera Referred To Contact Beatrice De La Garza NP [address] [address] Referral ID Status Reason Start Date Expiration Date V isits Requested Visits Authorized [id number] Closed Specialty Services Required 02/27/2016 1 1 Comments You have a pre existing appointment with Dr. Olvera on March 05 at 2:00, please have Dr. Olvera check your incision at that visit. * (Routine) - Closed Specialty Diagnoses / Procedures Referred By Contbecca t Referred To Contact Beatrice De La Garza NP [address] [phone] Referral ID Status Reason Start Date Expiration Date V isits Requested Visits Authorized [id number] Closed Specialty Services Required 02/27/2016 1 1 [...] scheduled at your first appointment. - [facility] Cardiology is located at [address] [facility] in [place] -Clinics are also held in [facility], and [place], [place] and [facility]. If you live in those areas, we will make arrangements for follow-up appointments in one of those clinics.. Encounter Details Date Type Department Care Team (Late st Contact Info) Description 02/27/2016 6:30 EDT - 02/28/2016 13:39 EDT Hospital Encounter [facility] Cardiac/Telemetry Unit [address] [place] [address] Gulshan Drummond MD PhD [address] [phone] Gulshan Montoya Sa, MD [address] [facility] [address] [place] [phone] AICD lead malfunction, subsequent encounter; ICD [...] EF of 20-25% status post silent inferior [place] in the early . 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 He had heart failure symptoms that started around May 2013, when he was in [place], [place]. This triggered major cardiac workup including [...] then underwent a device upgrade to a EMBLEM DRAWER IN-D device with biventricular pacing for his EF [...] in cardiology outreach clinic at [facility] in [place]. Continued high pacing threshold on the epicardial [...] and plans to follow up with his [employer] in [place] in 6-8 weeks for which he will arrange once he has arrived in [place]. He has been provided with the implant [...] patient. I discussed the case with the resident/NETWORK ENGINEERING ADVISOR/fellow and agree with the findings and plan [...] Notes * Lou Alfonso RN - 02/28/2016 6452 EDT Pt awaiting discharge. IV and tele [...] agree to review this medication with his house worker general and plans to remain on his home dosing, which was in the morning. He received dose this am. Ptleft via wheelchair with . * Beatrice Rodriguez - 02/28/2016 1329 EDT Brief visit with patient and as they were being discharged. Patient states he is independent in self care and home management. He feels well supported by friends and neighbors. Patient has Medicare and [facility]. [facility] in [facility]. No needs identified at time of discharge. will provide transportation. Beatrice Rodriguez RN Case Manager #[phone] documented in this encounter H&P Notes * Navdeep Hurd MD - 02/27/2016 0830 EDT Cardiology Admitting H&P Admit Date: 02/27/2016 Date of Service: 02/27/2016 PCP: Clem Olvera Code Status: Full Code Chief Complaint: FINN, device battery depletion, high pacing threshold on epicardial lead HPI: 74-year-old man with coronary artery disease and ischemic cardiomyopathy status post silent inferior [place] in the early . 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 He had heart failure symptoms that started around May 2013, when he was in [place], [place]. This triggered major cardiac workup including [...] point, his device was upgraded to a EMBLEM DRAWER IN-D device with biventricular pacing. By the patient's [...] in cardiology outreach clinic at [facility] in [place]. Continued high pacing threshold on the epicardial LV lead has caused a very rapid battery depletion. Dr. David Adams in [place] recommended against lead extraction and reimplant as [...] insertion 2002 2013 second pacemaker [facility] Social History Family History Social History Substance Use Topics ??? Smoking status: Former Smoker Years: 35.00 Quit date: 1989 ??? Smokeless tobacco: Not on file ??? Alcohol use 6.6 oz/week 6 Cans of beer, 5 Glasses of wine per week , lives with , retired. Spends leong in [place]. Spends the chery in [place], [place]. Quit smoking in 1990. Has 2 [...] and ischemic cardiomyopathy status post silent inferior [place] in the early . Also diagnosed with [...] point, his device was upgraded to a EMBLEM DRAWER IN-D device with biventricular pacing with a surgically [...] EST) 03/12/2016 12:4 3 EST Scan 2 Collections Director PROCEDURE/MINOR JUDD GICAL ORDERABLES * ECG REPORT - SCANNED (03/04/2016 14:06 EDT) 03/04/2016 14:0 6 EDT Scan 2 Collections Director PROCEDURE/MINOR JUDD GICAL ORDERABLES * ECG REPORT - SCANNED (03/04/2016 14:06 EDT) 03/04/2016 14:0 6 EDT Scan 2 Collections Director PROCEDURE/MINOR JUDD GICAL ORDERABLES * IMPLANT RECORD - SCANNED (03/04/2016 14:06 EDT) 03/04/2016 14:0 6 EDT Scan 2 Collections Director PROCEDURE/MINOR JUDD GICAL ORDERABLES * ECG REPORT - SCANNED (03/01/2016 8:58 EDT) 03/01/2016 8:58 EDT Scan 2 Collections Director PROCEDURE/MINOR JUDD GICAL ORDERABLES * ECG REPORT - SCANNED (03/01/2016 8:58 EDT) 03/01/2016 8:58 EDT Scan 2 Collections Director PROCEDURE/MINOR JUDD GICAL ORDERABLES * CHEST PA [...] IMAGING ORDERABLES * HEMAGRAM (02/28/2016 5:44 EDT) [facility] WBC 9.84 4.0 - 10.4 K/cmm 02/28/2016 6:26 EDT [facility] RBC 4.42 4.36 - 5.78 M/cmm 02/28/2016 6:26 T [facility] Hemoglobin 14.2 13.8 - 17.3 gm/dl 02/28/2016 6:26 [facility] HCT 40.9 39.5 - 50.2 % 02/28/2016 6:26 [facility] MCV 93 81 - 95 fl 02/28/2016 6:26 [facility] MCH 32.1 27.6 - 33.0 pg 02/28/2016 6:26 [facility] MCHC 34.7 32.8 - 36.4 gm/dl 02/28/2016 6:26 [facility] RDW-CV 13.1 11.8 - 14.1 % 02/28/2016 6:26 [facility] RDW-SD 44.6 36.5 - 45.9 fl 02/28/2016 6:26 [facility] PLT 151 141 - 377 K/cmm 02/28/2016 6:26 [facility] MPV 11.2 9.5 - 12.7 fl 02/28/2016 6:26 [facility] Blood specimen (specimen) BLOOD SPECIMEN / Unknown 02/28/2016 5:44 EDT 02/28/2016 6:13 EDT Beatrice De La Garza NP HEMATOLOGY & PF4 ORDERABLES [facility] [address] [place] [address] * (ABNORMAL) CREATININE (02/28/2016 5:44 EDT) Creatinine 0.65(L) 0.66 - 1.25 mg/dl 02/28/2016 6:48 EDT [facility] GFR, Calculated 95 >60 ml/min/1.7 3m2 02/28/2016 6:48 EDT [facility] Comment: eGFR calculated using CKD-EPI equation for non Americans. Multiply eGFR by 1.16 for Americans. Blood specimen (specimen) BLOOD SPECIMEN / Unknown 02/28/2016 5:44 EDT 02/28/2016 6:13 EDT Beatrice De La Garza NP CHEMISTRY & B LOOD GAS ORDERABLES Performing Organization Address [facility]/ZIP Co de Phone Number [facility] [address] [place] [address] * BUN (02/28/2016 5:44 EDT) BUN 14 10 - 26 mg/dl 02/28/2016 6:48 EDT [facility] Blood specimen (specimen) BLOOD SPECIMEN / Unknown 02/28/2016 5:44 EDT 02/28/2016 6:13 EDT Beatrice De La Garza NETWORK ENGINEERING ADVISOR CHEMISTRY & B LOOD GAS ORDERABLES Performing Organization Address [facility] Co de Phone Number [facility] [address] [place] [address] * ELECTROLYTES (02/28/2016 5:44 EDT) Sodium 138 136 - 145 mEq/L 02/28/2016 6:48 EDT [facility] Potassium 4.7 3.5 - 5.0 mEq/L 02/28/2016 6:48 EDT [facility] Chloride 104 96 - 110 mEq/L 02/28/2016 6:48 EDT [facility] CO2 25 22 - 32 mEq/L 02/28/2016 6:48 EDT [facility] Comment:Note new reference r hong 02/19/16 Blood specimen (specimen) BLOOD SPECIMEN / Unknown 02/28/2016 5:44 EDT 02/28/2016 6:13 EDT Beatrice De La Garza NP CHEMISTRY & B LOOD GAS ORDERABLES [facility] [address] [place] [address] * PORTABLE CHEST 1 VIEW (02/27/2016 12:46 [...] 12:41 EDT) 02/27/2016 12:4 1 EDT Narrative [facility] - 02/28/2016 8:57 EDT ? [facility] ? Test Date: ?2016-02-27 Pat Name: ? NABIL IGLESIAS ? Department: ?? HERN[facility] 5 ? Room: ? MW514 Gender: ? M ?Procurement Technician: ?? [id number] : ?1940 ? Requested By: KAIN REED L Order Number: [id number] ? Reading MD: ?? BRAYAN CUENCA MD ? Measurements Intervals ?[place] ? Rate: ? 63 ? P: ?15 WV: ? 159 ?QRS: ?234 QRSD: ? 156 ?T: ?15 QT: ? 479 ? QTc: ?493 ? Interpretive Statements ELECTRONIC VENTRICULAR PACEMAKER Compared to ECG 02/27/2016 08:10:34 No significant changes I reviewed the tracing and have either agreed or edited the findings in this report. Electronically Signed On 02-28-16 08:57:02 EDT by BRAYAN CUENCA MD. Procedure Note Brayan Cuenca MD - 02/28/2016 [facility] Test Date: 2016-02-27 Pat Name: NABIL IGLESIAS Department: [place] [address] Room: [facility] Gender: M Procurement Technician: [id number] : 1940 Requested By: KAIN Gallagher Order Number: [id number] Reading MD: BRAYAN CUENCA MD Measurements Intervals [place] Rate: 63 P: 15 WV: 159 QRS: 234 QRSD: 156 T: 15 QT: 479 QTc: 493 Interpretive Statements ELECTRONIC VENTRICULAR PACEMAKER Compared to ECG 02/27/2016 08:10:34 No significant changes I reviewed the tracing and have either agreed or edited the findings inthis report. Electronically Signed On 02-28-16 08:57:02 EDT by BRAYAN BEEBE. Gulshan Drummond MD PhD CARDIA C ECG ORDERABLES [facility] * PROTIME (02/27/2016 8:45 EDT) Pro Time 12.3 10.3 - 13.1 secs 02/27/2016 9:10 EDT [facility] Comment: New prothrombin t josue range effective 01/29/16 I.N.R. 1.1 0.9 - 1.1 Ratio 02/27/2016 9:10 EDT [facility] Comment: Moderate Intensity Coumadin INR = 2.0-3.0 Adjustments in anticoagulant therapy dose should be based upon the INR and NOT the Pro Time. Blood specimen (specimen) BLOOD SPECIMEN / Unknown 02/27/2016 8:45 EDT 02/27/2016 8:54 EDT Gulshan Drummond MD PhD HEMATO LOGY & PF4 ORDERABLES [facility] [address] [place] [address] * HEMAGRAM (02/27/2016 8:45 EDT) WBC 6.47 4.0 - 10.4 K/cmm 02/27/2016 8:57 EDT [facility] RBC 4.51 4.36 - 5.78 M/cmm 02/27/2016 8:57 EDT [facility] Hemoglobin 14.7 13.8 - 17.3 gm/dl 02/27/2016 8:57 EDT [facility] HCT 41.7 39.5 - 50.2 % 02/27/2016 8:57 EDT [facility] MCV 93 81 - 95 fl 02/27/2016 8:57 EDT [facility] MCH 32.6 27.6 - 33.0 pg 02/27/2016 8:57 EDT [facility] MCHC 35.3 32.8 - 36.4 gm/dl 02/27/2016 8:57 T [facility] RDW-CV 13.1 11.8 - 14.1 % 02/27/2016 8:57 EDT [facility] RDW-SD 44.0 36.5 - 45.9 fl 02/27/2016 8:57 EDT [facility] PLT 176 141 - 377 K/cmm 02/27/2016 8:57 EDT [facility] MPV 10.7 9.5 - 12.7 fl 02/27/2016 8:57 EDT [facility] Blood specimen (specimen) BLOOD SPECIMEN / Unknown 02/27/2016 8:45 EDT 02/27/2016 8:54 EDT Gulshan Drummond MD PhD HEMATO LOGY & PF4 ORDERABLES [facility] [address] [place] [address] * ELECTROLYTES (02/27/2016 8:45 EDT) Sodium 142 136 - 145 mEq/L 02/27/2016 9:13 EDT [facility] Potassium 4.7 3.5 - 5.0 mEq/L 02/27/2016 9:13 EDT [facility] Chloride 103 96 - 110 mEq/L 02/27/2016 9:13 EDT [facility] CO2 27 22 - 32 mEq/L 02/27/2016 9:13 EDT [facility] Comment:Note new reference r hong 02/19/16 Blood specimen (specimen) BLOOD SPECIMEN / Unknown 02/27/2016 8:45 EDT 02/27/2016 8:54 EDT Gulshan Drummond MD PhD CHEMIS TRY & BLOOD GAS ORDERABLES Performing Organization Address [facility] de Phone Number [facility] [address] [place] [address] * CREATININE (02/27/2016 8:45 EDT) Creatinine 0.69 0.66 - 1.25 mg/dl 02/27/2016 9:13 EDT [facility] GFR, Calculated 93 >60 ml/min/1.7 3m2 02/27/2016 9:13 EDT [facility] Comment: eGFR calculated using CKD-EPI equation for non Americans. Multiply eGFR by 1.16 for Americans. Blood specimen (specimen) BLOOD SPECIMEN / Unknown 02/27/2016 8:45 EDT 02/27/2016 8:54 EDT Gulshan Drummond MD PhD CHEMIS TRY & BLOOD GAS ORDERABLES Performing Organization Address [facility] Co de Phone Number [facility] [address] [place] [address] * BUN (02/27/2016 8:45 EDT) BUN 17 10 - 26 mg/dl 02/27/2016 9:13 EDT [facility] Blood specimen (specimen) BLOOD SPECIMEN / Unknown 02/27/2016 8:45 EDT 02/27/2016 8:54 EDT Gulshan Drummond MD PhD CHEMIS TRY & BLOOD GAS ORDERABLES [facility] [address] [place] [address] * EKG 12-LEAD (02/27/2016 8:08 EDT) 02/27/2016 8:08 EDT Narrative [facility] - 02/28/2016 9:01 EDT ? [facility] ? Test Date: ?2016-02-27 Pat Name: ? NABIL IGLESIAS ? Department: ?? [facility] ? Room: ? [id number] Gender: ? M ?Procurement Technician: ?? [id number] : ?1940 ? Requested By: MARCIA Boo Order Number: [id number] ? Julia WRIGHT: ?? BRAYAN CUENCA MD ? Measurements Intervals ?[place] ? Rate: ? 69 ? P: ?147 WV: ? 134 ?QRS: ?-67 QRSD: ? 160 [...] Note Brayan Cuenca MD - 02/28/2016 [facility] Test Date: 2016-02-27 Pat Name: NABIL IGLESIAS Department: [facility] Room: MF9016 Gender: M Procurement Technician: [id number] : 1940 Requested By: MARCIA Boo Order Number: [id number] Reading MD: BRAYAN CUENCA MD Measurements Intervals [place] Rate: 69 P: 147 WV: 134 QRS: -67 QRSD: 160 T: -59 QT: 434 QTc: 467 Interpretive Statements ELECTRONIC ATRIAL PACEMAKER ELECTRONIC VENTRICULAR PACEMAKER Compared to ECG 02/27/2016 08:08:46 No significant changes I reviewed the tracing and have either agreed or edited the findings inthis report. Electronically Signed On 02-28-16 09:01:04 EDT by BRAYAN BEEBE. Navdeep Hurd MD CARDIAC ECG ORD ERABLES [facility] EKG documented in this encounter Visit [...] Reason: Other - Comment: pt already took DORMITORY SUPERVISOR, takes other meds at HS) 921 [...] Reason: Other - Comment: pt already took DORMITORY SUPERVISOR, takes other meds at HS)2100 (Given - Provider: Mady Bruno RN) spironolactone (ALDACTONE) tablet 12.5 mg 12.5 mg, oral, DAILY, First dose on Thu02/27/16 at 1245, Until Discontinued, Routine 1306 (Not Given - Provider: Nneka Stuart RN - Reason: Other - Comment: pt already took DORMITORY SUPERVISOR, takes other meds at HS)2102 (Given - Provider: Mady Bruno RN) tamsulosin (FLOMAX) capsule 0.4 mg 0.4 mg, oral, DAILY, First dose on Thu02/27/16 at 1245, Until Discontinued, Routine 1306 (Not Given - Provider: Nneka Stuart RN - Reason: Other - Comment: pt already took DORMITORY SUPERVISOR, takes other meds at HS) 921 [...] at 0919, Routine 0919 (Given - Provider: Aad Onofre RN) fentaNYL citrate (PF) 50 mcg/mL [...] 02/02 documented in this encounter Care Teams Street Photographer Relationship Specialty Start Date End Date Clem Olvera MD [address] [place] [address] PCP - General 12/18/15 documented as of this encounter
--- OUTSIDE RECORDS SUMMARY | 2024-03-10 08:10 | XMS_ITS | Encounter Summary ---
[place] [address] Care Team Providers Care Delivery Lead Name Role Phone Donyn Cooper MD Primary Care Provider [phone] Encounter Details Date Type Department Care Team (Late st Contact Info) Description 03/17/2019 Telephone Cardiology at [address] [address] Sheri Quinn LNA Social History [...] AM EST Medication list reviewed with [facility] list. Please review with patient at next clinic visit. documented in this encounter Plan of Treatment Upcoming Encounters Date Type Department Care Team (Late st Contact Info) Description 05/02/2024 10:00 AM EST Hospital Encounter Non-Invasive [place] [address] Arrived documented as of this encounter Visit Diagnoses Not on filedocumented in this encounter Care Teams Delivery Lead Relationship Specialty Start Date End Date Donny Cooper MD [address] [place] [address] PCP - General Family Medicine 02/25/19 documented as of this encounter
--- OUTSIDE RECORDS SUMMARY | 2024-03-10 08:10 | XMS_ITS | Encounter Summary ---
[place] [address] Care Team Providers Care Medical Librarian Name Role Phone Donny Cooper MD Primary Care Provider [phone] Encounter Details Date Type Department Care Team (Late st Contact Info) Description 06/14/2020 Telephone Cardiology at [address] [phone] Nhung Briggs Social History Tobacco Use Types [...] or LANG Albert. Nhung Allen Electrophysiology Scheduling [id number] option 2 documented in this encounter Plan of Treatment Upcoming Encounters Date Type Department Care Team (Late st Contact Info) Description 05/02/2024 10:00 AM EST Hospital Encounter Non-[place] [address] Arrived documented as of this encounter Visit Diagnoses Not on filedocumented in this encounter Care Teams Medical Librarian Relationship Specialty Start Date End Date Donny Cooper MD [address] [place] [address] PCP - General Family Medicine 02/25/19 documented as of this encounter
--- OUTSIDE RECORDS SUMMARY | 2024-03-10 08:10 | XMS_ITS | Encounter Summary ---
[place] [address] Care Team Providers Care Employment Specialist/Program Manager Name Role Phone Donny Cooper MD Primary Care Provider [phone] Encounter Details Date Type Department Care Team (Latest Contact Info) Description 11/04/2023 10:00 AM EDT - 11/04/2023 11:59 PM EDT Hospital Encounter [place] [address] Discharge Disposition: Home Social History Tobacco Use [...] [place] [facility] Encounter [place] [address] Arrived documented as of this [...] filedocumented in this encounter Care Teams Employment Specialist/Program Manager Relationship Specialty Start Date End Date Donny Cooper MD [address] [place] [address] PCP - General Family Medicine 02/25/19 documented as of this encounter
--- OUTSIDE RECORDS SUMMARY | 2024-03-10 08:10 | XMS_ITS | Clinical Summary ---
Author Organization [facility] [place] [address] Care Team Providers Care Funeral Director Name Role Phone Donny Cooper MD Primary Care Provider [phone] Allergies No known active allergies Medications Medication [...] EDT Hospital Encounter Non-Invasive [place] [address] Discharge Disposition: Home 01/05/2024 Telephone Cardiology at [address] [phone] Kanika Shell 12/28/2023 Notes Only Cardiology at [address] [phone] Kanika Shell from Last 3 Months Immunizations [...] EST Hospital Encounter Non-Invasive [place] [phone] Arrived Health Maintenance Due Date Last Done Comments Tetanus/Diphtheria/Pertussis Vaccines (1 - Tdap) 08/19/1959 Zoster vaccine (1 of 2) 1990 Advance Directive 08/19/1995 Pneumoccocal Vaccine: 65+ (2 of 2 - PCV) 05/04/2009 05/04/2008 Covid-19 Vaccine (1 - 2022- season) 2024 Influenza (Flu) vaccine (1 o f 1 - Influenza standard series) 01/03/2024 02/01/2010, 03/06/2006, 02/24/2005 Medical Devices Implanted Type Area Music Orchestrator Device Identifier Shelf Expiration Date Model / Serial / Lot Mdt : [id number] : [id number] Implanted: (Quantity not on file) Cardiac Resynchronization Therapy - Defibrillator Chest Medtronic - [id number] / [id number] / Care Teams Funeral Director Relationship Specialty Start Date End Date Donny Cooper MD [address] [place] [address] PCP - General Family Medicine 02/25/19
--- OUTSIDE RECORDS SUMMARY | 2024-03-10 08:10 | XMS_ITS | Encounter Summary ---
Author Organization [facility] Address [address] [place] [address] Care Team Providers Care Rough Planer Tender Name Role Phone Clem Olvera MD Primary Care Provider [phone] Encounter Details Date Type Department Care Team (Late st Contact Info) Description 03/16/2019 Abstract [facility] Cardiology Clinic [address] [place] [address] Ronal Avelar, JADON AV block, 2nd degree [...] Laterality Modality Device Narrative 03/24/2019 10:30 EST [facility] Cardiology Device Visit Senior Application Software Engineer: [employer] Device Type: WORD PROCESSING OPERATOR-D Service: Remote ? 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
--- OUTSIDE RECORDS SUMMARY | 2024-03-10 08:10 | XMS_ITS | Encounter Summary ---
[place] [address] Care Team Providers Care Dry Roaster Name Role Phone Marques Martinez MD Primary Care Provider [phone] Encounter Details Date Type Department Care Team (Late st Contact Info) Description 06/12/2010 2:00 PM EST Procedure visit [place] [address] Social History Tobacco Use Types Packs/Day Years [...] AM EST Hospital Encounter Non-Invasive [place] [address] Arrived documented as of this encounter Visit Diagnoses Not on filedocumented in this encounter Care Teams Dry Roaster Relationship Specialty Start Date End Date Marques Martinez MD [address] [place] [address] PCP - General 04/01/10 04/08/11 documented as of this encounter
--- OUTSIDE RECORDS SUMMARY | 2024-03-10 08:10 | XMS_ITS | Referral Summary ---
Author Organization [facility] Address [address] [place] [address] Care Team Providers Care Pre School Teacher Name Role Phone Clem Olvera MD Primary Care Provider [phone] Allergies No known active allergies Medications Medication [...] 02/27/2016 Plan of Treatment Not on file Insurance Payer Benefit Plan / Group Subscriber ID Effective Dates Phone Address Type MEDICARE MEDICARE A/B [id number] 2005-Prese nt [address] [place] [address] Medicare [place] [id number] 2022-Prese nt [address] [place] [address] Medicare ACO [place] Advance Directives For more information, please contact: [phone] * Full Code (Latest Code Status on File) Date Activated Date Inactivated Comments 02/27/2016 8:49 02/28/2016 15:40 Question Answer Comments Reason for decision includes: Full code consistent with overall plan of care Who participated in the discussion? Not Discusse d Care Teams Pre School Teacher Relationship Specialty Start Date End Date Clem Olvera MD [address] [place] [id number] PCP - General 12/18/15
--- OUTSIDE RECORDS SUMMARY | 2024-03-10 08:10 | XMS_ITS | Encounter Summary ---
Author Organization [facility] [place] [address] Care Team Providers Care Occupational Therapy Instructor Name Role Phone Marques Martinez MD Primary Care Provider [phone] Encounter Details Date Type Department Care Team (Late st Contact Info) Description 10/09/2010 11:35 AM EDT - 10/09/2010 11:59 PM EDT Hospital Encounter XRay at [address] [place] [address] Social History Tobacco Use Types [...] Hospital Encounter Non-Invasive Cardiology Lab [facility] [place] [address] Arrived documented as of this encounter Visit Diagnoses Not on filedocumented in this encounter Care Teams Occupational Therapy Instructor Relationship Specialty Start Date End Date Marques Martinez MD [address] [place] [address] PCP - General 04/01/10 04/08/11 documented as of this encounter
--- OUTSIDE RECORDS SUMMARY | 2024-03-10 08:10 | XMS_ITS | Encounter Summary ---
[place] [address] Care Team Providers Care Thread Puller Name Role Phone Donny Cooper MD Primary Care Provider [phone] Encounter Details Date Type Department Care Team (Latest Contact Info) Description 10/05/2022 10:00 AM EDT - 10/05/2022 11:59 PM EDT Hospital Encounter [place] [address] Discharge Disposition: Home Social History Tobacco Use [...] [facility] Hospital Encounter Non-[place] [address] Arrived documented as of this [...] on filedocumented in this encounter Care Teams Thread Puller Relationship Specialty Start Date End Date Donny Cooper MD [address] [place] [address] PCP - General Family Medicine 02/25/19 documented as of this encounter
--- OUTSIDE RECORDS SUMMARY | 2024-03-10 08:10 | XMS_ITS | Encounter Summary ---
Author Organization [facility] [place] [address] Care Team Providers Care Nuclear Physics Teacher Name Role Phone Clem Olvera MD Primary Care Provider [phone] Reason for Visit * Reason Comments Follow Up Fracture SP PATELLA FX DO12/12 DOI 03/30/10 Encounter Details Date Type Department Care Team (Late st Contact Info) Description 04/09/2011 1:30 PM EST Office [place] [address] Jairon Gustafson MD [facility] [address] Jose Francisco Bee PA [facility] [address] Patella fracture (Primary Dx) Discharge Disposition: Home [...] AM EST Hospital Encounter Non-[place] [address] Arrived documented as of this encounter Visit Diagnoses Diagnosis Patella fracture- Primary Closed fracture of patella documented in this encounter Care Teams Nuclear Physics Teacher Relationship Specialty Start Date End Date Clem Olvera MD [address] [place] [address] PCP - General 04/09/11 02/24/19 documented as of this encounter
--- OUTSIDE RECORDS SUMMARY | 2024-03-10 08:10 | XMS_ITS | Encounter Summary ---
Author Organization [facility] [place] [address] Care Team Providers Care Conventional Machinist Name Role Phone Marques Martinez MD Primary Care Provider [phone] Reason for Visit * Reason Comments Follow Up Fracture PATELLA FX DOI 03/23 10 Encounter Details Date Type Department Care Team (Late st Contact Info) Description 10/09/2010 12:40 PM EDT Office [place] [address] Jairon Gustafson MD [facility] [place] [address] Jose Francisco Bee PA [facility] [place] [address] Quadriceps tendon rupture (Primary Dx) Discharge Disposition: [...] st Contact Info) Description 05/02/2024 10:00 AM [facility] Hospital Encounter Non-[place]vasive [place] [address] Arrived documented as of this encounter Visit Diagnoses Diagnosis Quadriceps tendon rupture- Primary Sprain and strain of other specified sites of knee and leg documented in this encounter Care Teams Conventional Machinist Relationship Specialty Start Date End Date Marques Martinez MD [address] [place] [address] PCP - General 04/01/10 04/08/11 documented as of this encounter
--- OUTSIDE RECORDS SUMMARY | 2024-03-10 08:10 | XMS_ITS | Encounter Summary ---
[place] [address] Care Team Providers Care Gang Pusher Name Role Phone Donny Cooper MD Primary Care Provider [phone] Encounter Details Date Type Department Care Team (Latest Contact Info) Description 07/07/2022 10:00 AM EST - 07/07/2022 11:59 PM EST Hospital Encounter Non-Invasive [place] [address] Discharge Disposition: Home Social History Tobacco Use [...] EST Hospital Encounter Non-Invasive [place] [address] Arrived documented as of this [...] on filedocumented in this encounter Care Teams Gang Pusher Relationship Specialty Start Date End Date Donny Cooper MD [address] [place] [address] PCP - General Family Medicine 02/25/19 documented as of this encounter
--- OUTSIDE RECORDS SUMMARY | 2024-03-10 08:10 | XMS_ITS | Encounter Summary ---
Author Organization [facility] Address [address] [place] [address] Care Team Providers Care Order Caller Name Role Phone Clem Olvera MD Primary Care Provider [phone] Reason for Visit * Reason Onset Date Comments Appointment Related 10/23/2016 Check for fo llow up of pacer Encounter Details Date Type Department Care Team ([facility] Contact Info) Description 10/23/2016 Telephone [facility] Cardiology - [address] [place] [address] Pacemaker, Pace Appointment Related (Check [...] that Nabil had his pacemaker checked in [place] where they are for the winter. They have some back and are being followed by Dr. Hurd at [facility]. documented in this encounter Plan of Treatment Not on file documented as of this encounter Visit Diagnoses Not on filedocumented in this encounter Care Teams Order Caller Relationship Specialty Start Date End Date Clem Olvera MD [address] [place] [address] PCP - General 12/18/15 documented as of this encounter
--- OUTSIDE RECORDS SUMMARY | 2024-03-10 08:10 | XMS_ITS | Encounter Summary ---
[place] [address] Care Team Providers Care Diesel Engine Engineer Name Role Phone Donny Cooper MD Primary Care Provider [phone] Encounter Details Date Type Department Care Team (Latest Contact Info) Description 07/02/2023 10:00 AM EST - 07/02/2023 11:59 PM EST Hospital Encounter [place] [address] Discharge Disposition: Home Social History Tobacco Use [...] [facility] Hospital Encounter [place] [address] Arrived documented as of this encounter Visit Diagnoses Not on filedocumented in this encounter Care Teams Diesel Engine Engineer Relationship Specialty Start Date End Date Donny Cooper MD [address] [place] [address] PCP - General Family Medicine 02/25/19 documented as of this encounter
--- OUTSIDE RECORDS SUMMARY | 2024-03-10 08:10 | XMS_ITS | Encounter Summary ---
[place] [address] Care Team Providers Care Rag Inspector Name Role Phone Donny Cooper MD Primary Care Provider [phone] Encounter Details Date Type Department Care Team (Latest Contact Info) Description 04/08/2022 10:00 AM EST - 04/08/2022 11:59 PM [facility] Hospital Encounter [place] [address] Discharge Disposition: Home Social History Tobacco Use [...] AM EST Hospital Encounter Non-[place] [...] on filedocumented in this encounter Care Teams Rag Inspector Relationship Specialty Start Date End Date Donny Cooper MD [address] [place] [address] PCP - General Family Medicine 02/25/19 documented as of this encounter
--- OUTSIDE RECORDS SUMMARY | 2024-03-10 08:10 | XMS_ITS | Encounter Summary ---
Author Organization [facility] Address [address] [place] [address] Care Team Providers Care Teleradiologist Name Role Phone Unavailable Primary Care Provider Unavailabl e Encounter Details Date Type Department Care Team (Late st Contact Info) Description 12/02/2012 Results Only [facility] Laboratory Services - [facility] ([facility] [address] [place] [id number] Satinder Edwards MD [address] [place] [address] Social History Tobacco Use Types Packs/Day Years [...] ? NABIL IGLESIAS ? Accession #: ? [id number] ? : ? 1940 (Age: 72) ??M [...] MD PATHOLOGY ORDERABLE S Performing Organization Address City/State/[facility] Co de Phone Number DIVYA BERRY [address] [place] [address] documented in this encounter Visit Diagnoses Not on filedocumented in this encounter
--- OUTSIDE RECORDS SUMMARY | 2024-03-10 08:10 | XMS_ITS | Encounter Summary ---
[place] [address] Care Team Providers Care Healthcare Facility Administrator Name Role Phone Donny Cooper MD Primary Care Provider [phone] Encounter Details Date Type Department Care Team (Latest Contact Info) Description 01/03/2023 10:00 AM EDT - 01/03/2023 11:59 PM EDT Hospital Encounter [place] [address] Discharge Disposition: Home Social History Tobacco Use [...] [facility] Hospital Encounter [place] [address] Arrived documented as of this [...] on filedocumented in this encounter Care Teams Healthcare Facility Administrator Relationship Specialty Start Date End Date Donny Cooper MD [address] [place] [address] PCP - General Family Medicine 02/25/19 documented as of this encounter
--- OUTSIDE RECORDS SUMMARY | 2024-03-10 08:11 | XMS_ITS | Encounter Summary ---
Author Organization [facility] [place] [address] Care Team Providers Care Associate Artistic Director Name Role Phone Marques Martinez MD Primary Care Provider [phone] Encounter Details Date Type Department Care Team (Late st Contact Info) Description 05/01/2010 3:10 PM EST Office [place] [address] Jairon Fenton MD [facility] [place] [address] Discharge Disposition: Home Social History Tobacco Use [...] AM EST Hospital Encounter Non-[place]vasive [place] [address] Arrived documented as of this encounter Visit Diagnoses Not on filedocumented in this encounter Care Teams Associate Artistic Director Relationship Specialty Start Date End Date Marques Martinez MD [address] [place] [address] PCP - General 04/01/10 04/08/11 documented as of this encounter
--- OUTSIDE RECORDS SUMMARY | 2024-03-10 08:11 | XMS_ITS | Encounter Summary ---
Author Organization [facility] [place] [address] Care Team Providers Care Veterinary Radiologist Name Role Phone Marques Martinez MD Primary Care Provider [phone] Encounter Details Date Type Department Care Team (Late st Contact Info) Description 03/30/2010 [place] [address] Javier Barajas MD [facility] [place] [address] Social History Tobacco Use Types Packs/Day Years [...] EST Hospital Encounter Non-Invasive [place] [address] Arrived documented as of this encounter Procedures [...] EST Jairon Fenton MD CHEMISTRY ORDERABLES [facility] * (ABNORMAL) CREATININE, SERUM (04/01/2010 6:09 [...] Fenton MD CHEMISTRY ORDERABLES Performing Organization Address [facility] de Phone Number CERNER CHRISTOSENNIUM * BUN (04/01/2010 6:09 AM EST) Blood Urea Nitrogen 12 10 - 20 mg/dL [facility] MILLENNI[facility] Blood specimen (specimen) 04/01/2010 6:09 AM EST 04/01/2010 6:09 AM EST Jairon Fenton MD CHEMISTRY ORDERABLES Performing Organization Address [facility] de Phone Number CERNER CHRISTOSENNIUM * [...] MD HEMATOLOGY ORDERABLE S Performing Organization Address [facility] de Phone Number CERIVIS MILLENNIUM * [...] Fenton MD CHEMISTRY ORDERABLES Performing Organization Address [facility] Phone Number CERVIIS MILLENNIUM * ELECTROLYTE PANEL (03/30/2010 6:05 PM [...] Fenton MD CHEMISTRY ORDERABLES Performing Organization Address [facility] Co de Phone Number CERIVIS MILLENNIUM * CREATININE, SERUM (03/30/2010 6:05 PM EST) Creatinine 0.87 0.80 - 1.50 mg/dL [facility] Est Glomerular Filtration Rate >60 >=60 [facility] Comment: The National Kidney Disease Education [...] Urea Nitrogen 18 10 - 20 mg/dL [facility] Blood specimen (specimen) 03/30/2010 6:05 PM EST 03/30/2010 6:13 PM EST Jairon Fenton MD CHEMISTRY ORDERABLES Performing Organization Address [facility] de Phone Number DEJA MOSQUEDAIUM * APTT (03/30/2010 6:05 PM EST) Partial Thromboplastin Time 26 25 - 37 sec [facility]ERNER MILLENNIUM Comment: Recommended therapeutic PTT range for full dose unfractionated heparin is 80-114 seconds. Blood specimen (specimen) 03/30/2010 6:05 PM EST 03/30/2010 6:14 PM EST Jairon Fenton MD HEMATOLOGY ORDERABLE S Performing Organization Address [facility] Phone Number DEJA SEGOVIA * PROTIME-INR (03/30/2010 6:05 PM EST) Prothrombin Time 14.2 12.3 - 14.7 sec [facility] Comment: [facility] Transfusion Committee Guidelines: INR less than 2.0, PTT less than OR equal to 43.5 seconds, or Fibrinogen greater than or equal to 100 mg/dl indicate adequate procoagulant activity for hemostasis in patients without underlying bleeding disorders. International Normalization Ratio 1.1 0.9 - 1.1 [facility] Blood specimen (specimen) 03/30/2010 6:05 PM EST 03/30/2010 6:14 PM EST Jairon Fenton MD HEMATOLOGY ORDERABLE S Performing Organization Address [facility] de Phone Number DEJA SEGOVIA * [...] Standard Deviation 44.2 35.0 - 46.0 fL [facility] RDW coefficient of variation 13.1 10.9 - 14.4 % [facility] Mean Platelet Volume 10.6 9.0 - 12.0 fL [facility] Blood specimen (specimen) 03/30/2010 6:05 PM EST 03/30/2010 6:13 PM EST Jairon Fenton MD HEMATOLOGY ORDERABLE S Performing Organization Address City/[facility] Co de Phone Number [facility] * REFLEX LAB-ANTIBODY SCREEN (03/30/2010 3:17 PM EST) [facility] Ab Screen Interp Negative [facility] Expires at [id number] on: [id number] [facility] Blood specimen (specimen) 03/30/2010 3:17 PM EST 03/30/2010 3:17 PM EST Javier Barajas MD BLOOD BANK LAB ORDER PRECIOUS Performing Organization Address [facility] Co de Phone Number [facility] * REFLEX LAB-ABO/RH (03/30/2010 3:17 PM EST) [facility] ABORH Type A Pos [facility] Blood specimen (specimen) 03/30/2010 3:17 PM EST 03/30/2010 3:17 PM EST Javier Barajas MD BLOOD BANK LAB ORDER PRECIOUS Performing Organization Address [facility] Co de Phone Number [facility] * ELECTROLYTE PANEL (03/30/2010 2:50 PM EST) [facility] Sodium 135 135 - 145 mmol/L [facility] Potassium 4.3 3.5 - 5.0 mmol/L [facility] Comment: Please note: ??Patients with WBC [...] PM EST Javier Barajas MD CHEMISTRY ORDERABLES [facility] * CREATININE, SERUM (03/30/2010 2:50 PM [...] Barajas MD CHEMISTRY ORDERABLES Performing Organization Address [facility] Phone Number [facility] * BUN (03/30/2010 2:50 PM EST) Blood Urea Nitrogen 18 10 - 20 mg/dL [facility] Blood specimen (specimen) 03/30/2010 2:50 PM EST 03/30/2010 3:05 PM EST Javier Barajas MD CHEMISTRY ORDERABLES Performing Organization Address [facility] Phone Number [facility] * GLUCOSE, RANDOM (03/30/2010 2:50 PM EST) Glucose 95 <=199 mg/dL [facility] Comment:Diabetes: >=200 mg/d L plus symptoms Blood specimen (specimen) 03/30/2010 2:50 PM EST 03/30/2010 3:05 PM EST Javier Barajas MD CHEMISTRY ORDERABLES Performing Organization Address [facility] Phone Number [facility] * APTT (03/30/2010 2:50 PM EST) Partial Thromboplastin Time 25 25 - 37 sec [facility] Comment: Recommended therapeutic PTT range for full dose unfractionated heparin is 80-114 seconds. Blood specimen (specimen) 03/30/2010 2:50 PM EST 03/30/2010 3:06 PM EST Javier Barajas MD HEMATOLOGY ORDERABLE S Performing Organization Address [facility] Phone Number [facility] * PROTIME-INR (03/30/2010 2:50 PM EST) Prothrombin Time 14.1 12.3 - 14.7 sec [facility] Comment: [facility] Transfusion Committee Guidelines: INR less than 2.0, [...] on filedocumented in this encounter Care Teams Veterinary Radiologist Relationship Specialty Start Date End Date Marques Martinez MD [address] [place] [address] PCP - General 04/01/10 04/08/11 documented as of this encounter
[2024-03-10 08:12] VITALS: BP 124/61; PULSE 70
--- OUTSIDE RECORDS SUMMARY | 2024-03-15 08:01 | XMS_ITS | Referral Summary ---
Author Organization [facility] Address [address] [place] [address] Care Team Providers Care Meeting Planner Name Role Phone Clem Olvera MD Primary Care Provider [phone] Allergies No known active allergies Medications atorvastatin (LIPITOR) 40 mg tablet Take 40 [...] Recorded Sex Assigned at Not on file Legal Sex Male 17:58 EST Gender Identity Not on file Sexual Orientation [...] Index 34.41 02/27/2016 1356 EDT Functional Status * Are you deaf or do you have serious difficulty hearing? Answer Date of Assessment Author No 02/27/2016 14:17 Tea Prakash RN * Are you blind or do you have serious difficulty seeing, even when wearing glasses? Answer Date of Assessment Author No 02/27/2016 14:17 Tea Prakash RN * Do you have serious difficulty walking or climbing stairs? (5 years old or older) Answer Date of Assessment Author No 02/27/2016 14:17 Tea Prakash RN * Do you have difficulty dressing or bathing? (5 years old or older) Answer Date of Assessment Author No 02/27/2016 14:17 Tea Prakash RN * Because of a physical, mental, or emotional condition, do you have difficulty doing errands alone such as visiting a doctor's office or shopping? (15 years old or older) Answer Date of Assessment Author No 02/27/2016 14:17 Tea Prakash RN Mental Status * Because of a physical, mental, or emotional condition, do you have serious difficulty concentrating, remembering, or making decisions? (5 years old or older) Answer Entry Date Author No 02/27/2016 14:17 Tea Prakash RN Plan of Treatment Not on file Insurance MEDICARE ACO [place] MEDICARE Advance Directives For more information, please contact: [phone] * Full Code (Latest Code Status on File) Date Activated Date Inactivated Comments 02/27/2016 8:49 02/28/2016 15:40 Question Answer Comments Reason for decision includes: Full code consistent with overall plan of care Who participated in the discussion? Not Discusse d Care Teams Meeting Planner Relationship Specialty Start Date End Date Clem Olvera MD [address] [place] [address] PCP - General 12/18/15
--- OUTSIDE RECORDS SUMMARY | 2024-03-15 08:01 | XMS_ITS | Encounter Summary ---
Author Organization [facility] Address [address] [place] [address] Care Team Providers Care Machine Loader Name Role Phone Clem Olvera MD Primary Care Provider [phone] Reason for Visit * Reason Onset Date Comments Other 04/04/2019 Transfer request for Pacer Care at [facility] Encounter Details Date Type Department Care Team (Late st Contact Info) Description 04/04/2019 Telephone [facility] [address] [place] [address] Giselle Hill, TOOL MAINTENANCE TECHNICIAN Other (Transfer request for Pacer Care at [facility]) Social History Tobacco Use Types Packs/Day Years [...] documented as of this encounter Functional Status * Are you deaf or [...] Author No 02/27/2016 14:17 Tea Prakash RN documented as of this encounter Mental Status * Because of a physical, mental, or emotional condition, do you have serious difficulty concentrating, remembering, or making decisions? (5 years old or older) Answer Entry Date Author No 02/27/2016 14:17 Tea Prakash RN documented in this encounter Miscellaneous Notes * Telephone Encounter - Shoshana Chin RN - 04/04/2019 1707 EST Release complete per Melvina, nadege close telephone encounter * Telephone Encounter - Melvina Duarte - 04/04/2019 1503 EST I went into the [employer] Website and released pt to [facility] Pacer Clinic as requested. * Telephone Encounter - Suze Reynoso - 04/04/2019 1342 EST PT WILL BE HAVING HIS PACER CARE DONE AT [facility], PLEASE RELEASE HIS REMOTE MONITORING SO THAT THEY CAN PICK IT UP documented in this encounter Plan of Treatment Not on file documented as of this encounter Visit Diagnoses Not on filedocumented in this encounter Care Teams Machine Loader Relationship Specialty Start Date End Date Clem Olvera MD [address] [place] [address] PCP - General 12/18/15 documented as of this encounter
--- OUTSIDE RECORDS SUMMARY | 2024-03-15 08:01 | XMS_ITS | Encounter Summary ---
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 [address] [place], [place] [address] Navdeep Hurd MD [address] [place] [address] [phone] ICD (implantable cardioverter-defibril lator) battery depletion (Primary [...] 8 EDT Narrative 02/27/2016 15:17 EDT *Cardiology* [address] [place] [address] Lead Revision (Report amended ) Patient: Nabil Iglesias ?Study Date: ?02/27/2016 ? Accession #: ? [id number] : ? 1940 Referring: Clem Olvera Attending: [...] 0.35 glide wire a Nick MENDOZAW 6F ([facility]) 6 mm-40 mm balloon dilation still could [...] Venograms were performed in the MOORE and AZERI projections and a suitable mid-lateral LV branch [...] The leads were connected to a TICKET COLLECTOR OR USHER-D device. Device and Lead detail in table [...] device: Medtronic - Viva Quad XT TICKET COLLECTOR OR USHER-D DF4 - Serial number: [id number] Explanted device: Medtronic - Viva XT TICKET COLLECTOR OR USHER-D DF4 - Serial number: [id number]. LEAD PARAMETERS + + + + + [...] ? Medtronic ? Enpath ? information ?? 4321 ? 6935M ? Attain ? Epicardial ? Performa 4298 ? + + + + + + Serial number [id number] ? [id number] ?? [id number] ?? [id number] ? + + + + [...] Note Gulshan Drummond MD - 05/12/2016 *Cardiology* [address] [place] [address] Lead Revision (Report amended ) Patient: Nabil Iglesias Study Date: 02/27/2016 : 1940 Referring: Clem Olvera Attending: Gulshan Drummond MD, PhD Fellow: Assisting: Julia Dodge Copies: ATTESTATION: I, Dr. Gulshan Drummnod have reviewed and agree with the findings [...] therefore over an 0.35 glide wire a [place] OTW 6F ([facility]) 6 mm-40 mm balloon dilation still could [...] Venograms were performed in the MOORE and AZERI projections and a suitable mid-lateral LV branch [...] The leads were connected to a TICKET COLLECTOR OR USHER-D device. Device and Lead detail in table [...] topical skin adhesive. IMPLANTED HARDWARE: Implanted device: [employer] - Viva Quad XT TICKET COLLECTOR OR USHER-D DF4 - Serial number: [id number] Explanted device: Medtronic - Viva XT TICKET COLLECTOR OR USHER-D DF4 - Serial number: [id number]. LEAD PARAMETERS + + + + + + Lead # 1 2 3 4 + + + + + + Chamber RA RV LV LV + + + + + + Date 07/19/2002 07/18/2013 02/27/2016 07/18/2013 implanted + + + + + + Model St. 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
--- OUTSIDE RECORDS SUMMARY | 2024-03-15 08:01 | XMS_ITS | Encounter Summary ---
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
--- OUTSIDE RECORDS SUMMARY | 2024-03-15 08:01 | XMS_ITS | Encounter Summary ---
Author Organization [facility] Address [address] [place] [address] Care Team Providers Care Dean Of Admissions Name Role Phone Clem Olvera MD Primary Care Provider [phone] Encounter Details Date Type Department Care Team (Latest Contact Info) Description 12/20/2015 10:52 EDT - 12/20/2015 23:52 EDT Hospital Encounter [facility] Cardi[facility] [address] [place] [address] Navdeep Hurd MD [address] [place] [address] [phone] Discharge Disposition: Home or Self [...] this encounter Medications at Time of Discharge aspirin chewable 81 mg tablet Take 81 [...] no need to beNPO or have a service car driver. However, his will be accompanying him. They [place] to the airport [place] 1000 and then will come here and check-in around 1145. He agrees to have a shower. documented in this encounter Procedure Notes * Fantasma Dhillon MD - 12/20/2015 1356 EDT IR Brief Procedure Note Attending: [employer] Instructor: Alejo Pre-op Dx: Arrhythmia, need for pacemaker [...] able Fantasma Dhillon MD 12/20/2015 13:57 #[id number] Cosigned by Ciro Bailey MD at 12/22/2015 1:16 EDT documented in this encounter Plan of Treatment Not on file documented as of this encounter Visit Diagnoses Not on filedocumented in this encounter Administered Medications Inactive Administered Medications - up to 3 most recent administrations Medication Order MAR Action Action Date Dose Rate Site sodium chloride 0.9 % (NS) infusion 50 mL/hr, intravenous, CONTINUOUS, Starting on Thu12/20/15 at 1200, Until Thu12/21/15 at 0152, Routine, Preprocedure documented in this encounter Historical Medications * This list may reflect changes made after this encounter. aspirin chewable 81 mg tablet Take 81 [...] 12/19 documented in this encounter Care Teams Dean Of Admissions Relationship Specialty Start Date End Date Clem Olvera MD [address] [place] [id number] PCP - General 12/18/15 documented as of this encounter
--- OUTSIDE RECORDS SUMMARY | 2024-03-15 08:01 | XMS_ITS | Encounter Summary ---
Author Organization [facility] Address [address] [place] [address] Care Team Providers Care Bookmaker Map Name Role Phone Unknown, Provider Primary Care Provider Clem Alcala MD Primary Care Provider [phone] Encounter Details Date Type Department Care Team (Late st Contact Info) Description 11/29/2015 Pre-Procedure [facility] [address] [place], [place] [id number] Navdeep Hurd MD [address] [place] [address] [phone] Social History Tobacco Use Types [...] Bilateral upper extremity venogram Date: 12/20/2015 Patient: Ferdinand Nabil Boo. Attending: Dr. Dean Bailey Commercial Interior Designer: Dr. Fantasma Dhillon History/indication: The patient is [...] Patient: Nabil Streeter Attending: Dr. Dean Bailey Commercial Interior Designer: Dr. Fantasma Dhillon History/indication: The patient is [...] above interpretation and agree with the findings. us Navdeep Hurd MD IMG IR ORDERABLES Final Result documented in this encounter Visit Diagnoses Not on filedocumented in this encounter Care Teams Bookmaker Map Relationship Specialty Start Date End Date Unknown, Provider, PCP - General 12/06/12 12/17/15 Clem Olvera MD [address] [place] [address] PCP - General 12/18/15 documented as of this encounter
--- OUTSIDE RECORDS SUMMARY | 2024-03-15 08:01 | XMS_ITS | Encounter Summary ---
Author Organization [facility] Address [address] [place] [address] Care Team Providers Care Linux Admin Engineer Name Role Phone Clem Olvera MD Primary Care Provider [phone] Reason for Referral * (Routine) - Closed Specialty Diagnoses / Procedures Referred By Contac t Referred To Contact Beatrice De La Garza NP Phone: tel: fax: Referral ID Status Reason Start Date Expiration Date V isits Requested Visits Authorized Closed Specialty Services Required 02/27/2016 1 1 Comments You must contact us if we have not contacted you or you have missed your scheduled appointment. If you have any nursing questions, please don't hesitate to call the Cardiac Arrhythmia Service at [facility] at [phone] or , extension [phone]. For any scheduling of appointments, please call [phone] or , extension [phone]. . * (Routine) - Closed Specialty Diagnoses / Procedures Referred By Contac t Referred To Contact Beatrice De La Garza NP Phone: tel: fax: Referral ID Status Reason Start Date Expiration Date V isits Requested Visits Authorized Closed Specialty Services Required 02/27/2016 1 1 Comments You have a pre existing appointment with Dr. Olvera on March 05 at 2:00, please have Dr. Olvera check your incision at that visit. * (Routine) - Closed Specialty Diagnoses / Procedures Referred By Pedro madera Referred To Contact Beatrice De La Garza NP Phone: tel: fax: Referral ID Status Reason Start Date Expiration Date V isits Requested Visits Authorized [id number] Closed Specialty Services Required 02/27/2016 1 1 [...] [facility] Cardiology is located at [address] [facility] in [place] -Clinics are also held in [facility], [place], [place] and [facility]. If you live in those areas, we will make arrangements for follow-up appointments in one of those clinics.. Encounter Details Date Type Department Care Team (Late st Contact Info) Description 02/27/2016 6:30 EDT - 02/28/2016 13:39 EDT Hospital Encounter [facility] Cardiac/Telemetry Unit [address] [place] [address] Gulshan Drummond MD PhD [address] [facility] [place], [address] [place] [phone] Gulshan Montoya Sa, MD [address] [facility] [address] [place] [phone] AICD lead malfunction, subsequent encounter; ICD [...] EDT documented in this encounter Functional Status * Are you [...] Answer Entry Date Author No 02/27/2016 14:17 EDT Tea Stuart RN documented in this encounter Discharge Diagnoses Diagnosis Z45.02 Encounter for adjustment and management of automatic implantable cardiac defibrillator-Z45.02[ICD-10-CM] R00.1 Bradycardia, unspecified-R00.1[ICD-10-CM] I50.9 Heart failure, unspecified-I50.9[ICD-10-CM] Z23 Encounter for immunization-Z23[ICD-10-CM] documented in this encounter Discharge Summaries * America De La Garzaaresanty Domingo, VANDANA - 02/27/2016 1059 EDT Cardiology Discharge Summary [...] EF of 20-25% status post silent inferior MA in the early . 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 He had heart failure symptoms that started around May 2013, when he was in [place], [place]. This triggered major cardiac workup including [...] then underwent a device upgrade to a MACHINE PRESSER-D device with biventricular pacing for his EF [...] been followed in cardiology outreach clinic at [facility] in [place]. Continued high pacing threshold on the epicardial [...] and plans to follow up with his Rubber Splicer in [place] in 6-8 weeks for which [...] HGBA1C Discharge Follow Up Appointments Scheduled with [facility] Appointments Outside of [facility] We Will Schedule Studies We Will Schedule Appointments We Recommend but have not been Scheduled Beatrice De La Garza NP 02/27/2016 10:59 Cosigned by Gulshan Montoya Sa, MD at 02/28/2016 15:19 EDT Associated attestation - Gulshan Montoya Sa, MD - 02/28/2016 8549 EDT Attending Attestation: I saw and evaluated the patient. I discussed the case with the resident/REMOTE SENSING RESEARCH SCIENTIST/fellow and agree with the findings and plan [...] in this encounter Progress Notes * Lou Alfonso, JADON - 02/28/2016 7991 EDT Pt awaiting discharge. IV and tele [...] agree to review this medication with his board machine set up operator and plans to remain on his home dosing, which was in the morning. He received dose this am. Ptleft via wheelchair with . * Jennifer Beatrice - 02/28/2016 1329 EDT Brief visit with patient and as they were being discharged. Patient states he is independent in self care and home management. He feels well supported by friends and neighbors. Patient has Medicare and [facility]. Pharmacy is [facility] in [facility]. No needs identified at time of discharge. will provide transportation. Beatrice Rodriguez RN Case Manager #[id number] documented in this encounter H&P Notes * Navdeep Hurd MD - 02/27/2016 0830 EDT Cardiology Admitting H&P Admit Date: 02/27/2016 Date of Service: 02/27/2016 PCP: Clem Olvera Code Status: Full Code Chief Complaint: FINN, device battery depletion, high pacing threshold on epicardial lead HPI: 74-year-old man with coronary artery disease and ischemic cardiomyopathy status post silent inferior MA in the early . 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 He had heart failure symptoms that started around May 2013, when he was in [place], [place]. This triggered major cardiac workup including [...] point, his device was upgraded to a MACHINE PRESSER-D device with biventricular pacing. By the patient's [...] been followed in cardiology outreach clinic at [facility] in [place]. Continued high pacing threshold on the epicardial LV lead has caused a very rapid battery depletion. Dr. David Adams in [place] recommended against lead extraction and reimplant as [...] insertion 2002 2013 second pacemaker [facility] Social History Family History Social History Substance Use Topics ??? Smoking status: Former Smoker Years: 35.00 Quit date: 1989 ??? Smokeless tobacco: Not on file ??? Alcohol use 6.6 oz/week 6 Cans of beer, 5 Glasses of wine per week , lives with , retired. Spends leong in [place]. Spends the chery in [place], [place]. Quit smoking in 1990. Has 2 [...] and ischemic cardiomyopathy status post silent inferior MA in the early . Also diagnosed with [...] point, his device was upgraded to a MACHINE PRESSER-D device with biventricular pacing with a surgically [...] care tomorrow. Navdeep Hurd MD 02/27/2016 11:12 Cosigned by Gulshan Drummond MD at 02/29/2016 9:02 EDT documented in this encounter Miscellaneous Notes * [...] Care - Mady Bruno RN - 02/27/2016 9293 EDT Problem: Daily Care Plan Goals Goal: Care Plan Documentation Outcome: Met This Shift 02/27/162048 Care Plan Focus Area of Focus Sleep [...] (03/12/2016 12:43 EST) 03/12/2016 12:4 3 EST us Scan 2 Mens Locker Room Attendant PROCEDURE/MINOR SURGICAL OR DERABLES Final Result * ECG REPORT - SCANNED (03/04/2016 14:06 EDT) 03/04/2016 14:0 6 EDT us Scan 2 Mens Locker Room Attendant PROCEDURE/MINOR SURGICAL OR DERABLES Final Result * ECG REPORT - SCANNED (03/04/2016 14:06 EDT) 03/04/2016 14:0 6 EDT us Scan 2 Mens Locker Room Attendant PROCEDURE/MINOR SURGICAL OR DERABLES Final Result * IMPLANT RECORD - SCANNED (03/04/2016 14:06 EDT) 03/04/2016 14:0 6 EDT us Scan 2 Mens Locker Room Attendant PROCEDURE/MINOR SURGICAL OR DERABLES Final Result * ECG REPORT - SCANNED (03/01/2016 8:58 EDT) 03/01/2016 8:58 EDT us Scan 2 Mens Locker Room Attendant PROCEDURE/MINOR SURGICAL OR DERABLES Final Result * ECG REPORT - SCANNED (03/01/2016 8:58 EDT) 03/01/2016 8:58 EDT us Scan 2 Mens Locker Room Attendant PROCEDURE/MINOR SURGICAL OR DERABLES Final Result * CHEST PA AND LATERAL (02/28/2016 11:47 [...] no pulmonary edema identified. No pleural effusion. us Gulshan Drummond MD PhD IMG DIAGNOSTIC IMAGING ORDERABLES Final Result * HEMAGRAM (02/28/2016 5:44 EDT) WBC 9.84 4.0 - 10.4 K/cmm 02/28/2016 6:26 [facility] RBC 4.42 4.36 - 5.78 M/cmm 02/28/2016 6:26 [facility] Hemoglobin 14.2 13.8 - 17.3 [...] 13.1 11.8 - 14.1 % 02/28/2016 6:26 EDT [facility] RDW-SD 44.6 36.5 - 45.9 fl 02/28/2016 6:26 EDT [facility] PLT 151 141 - 377 K/cmm 02/28/2016 6:26 EDT [facility] MPV 11.2 9.5 - 12.7 fl 02/28/2016 6:26 EDT [facility] Blood specimen (specimen) BLOOD SPECIMEN / Unknown 02/28/2016 5:44 EDT 02/28/2016 6:13 EDT Beatrice De La Garza REMOTE SENSING RESEARCH SCIENTIST HEMATOLOGY & PF4 ORDE RABLES Final Result Performing Organization Address City/[facility] Co de Phone Number [facility] [address] [place] [address] * (ABNORMAL) CREATININE (02/28/2016 5:44 EDT) Creatinine 0.65(L) 0.66 - 1.25 mg/dl 02/28/2016 6:48 EDT [facility] GFR, Calculated 95 >60 ml/min/1.7 3m2 02/28/2016 6:48 EDT [facility] Comment: eGFR calculated using CKD-EPI equation for non Americans. Multiply eGFR by 1.16 for Americans. Blood specimen (specimen) BLOOD SPECIMEN / Unknown 02/28/2016 5:44 EDT 02/28/2016 6:13 EDT Beatrice De La Garza NP CHEMISTRY & BLOOD GAS ORDERABLES Final Result Performing Organization Address City/[facility]/ZIP Co de Phone Number [facility] [address] [place] [address] * BUN (02/28/2016 5:44 EDT) BUN 14 10 - 26 mg/dl 02/28/2016 6:48 EDT [facility] Blood specimen (specimen) BLOOD SPECIMEN / Unknown 02/28/2016 5:44 EDT 02/28/2016 6:13 EDT Beatrice De La Garza REMOTE SENSING RESEARCH SCIENTIST CHEMISTRY & BLOOD GAS ORDERABLES Final Result Performing Organization Address [facility] Co de Phone Number [facility] [address] [place] [address] * ELECTROLYTES (02/28/2016 5:44 EDT) Sodium 138 136 - 145 mEq/L 02/28/2016 6:48 EDT [facility] Potassium 4.7 3.5 - 5.0 mEq/L 02/28/2016 6:48 EDT [facility] Chloride 104 96 - 110 mEq/L 02/28/2016 6:48 EDT [facility] CO2 25 22 - 32 mEq/L 02/28/2016 6:48 EDT [facility] Comment:Note new reference r hong 02/19/16 Blood specimen (specimen) BLOOD SPECIMEN / Unknown 02/28/2016 5:44 EDT 02/28/2016 6:13 EDT Result [facility] Beatrice De La Garza NP CHEMISTRY & BLOOD GAS ORDERABLES Final Result Performing Organization Address [facility] Co de Phone Number [facility] [address] [place] [address] * PORTABLE CHEST 1 VIEW (02/27/2016 12:46 [...] mediastinal contours within normal limits for technique. us Gulshan Drummond MD PhD IMG DIAGNOSTIC IMAGING ORDERABLES Final Result * EKG 12-LEAD (02/27/2016 12:41 EDT) 02/27/2016 12:4 1 EDT Narrative [facility] EKG - 02/28/2016 8:57 EDT ? [facility] ? Test Date: ?2016-02-27 Pat Name: ? NABIL IGLESIAS ? Department: ?? H[facility] 5 ? Room: ? MW514 Gender: ? M ?Environmental Issues Instructor: ?? [id number] : ?1940 ? Requested By: KAIN Gallagher Order Number: [id number] ? Julia WRIGHT: ?? BRAYAN CUENCA MD ? Measurements Intervals ?[place] ? Rate: ? 63 ? P: ?15 [...] Date: 2016-02-27 Pat Name: NABIL IGLESIAS Department: [place] [address] Room: [facility] Gender: M Environmental Issues Instructor: [id number] : 1940 Requested By: KAIN Gallagher Order Number: [id number] Reading MD: BRAYAN CUENCA MD Measurements Intervals [place] Rate: 63 P: 15 CA: 159 QRS: 234 QRSD: 156 T: 15 QT: 479 QTc: 493 Interpretive Statements ELECTRONIC VENTRICULAR PACEMAKER Compared to ECG 02/27/2016 08:10:34 No significant changes I reviewed the tracing and have either agreed or edited the findings inthis report. Electronically Signed On 02-28-16 08:57:02 EDT by BRAYAN BEEBE. us Gulshan Drummond MD PhD CARDIAC ECG OR DERABLES Final Result Performing Organization Address [facility] Co de Phone Number [facility] EKG * PROTIME (02/27/2016 8:45 EDT) Pro Time 12.3 10.3 - 13.1 secs 02/27/2016 9:10 EDT [facility] Comment: New prothrombin t josue range effective 01/29/16 I.N.R. 1.1 0.9 - 1.1 Ratio 02/27/2016 9:10 EDT [facility] Comment: Moderate Intensity Coumadin INR = 2.0-3.0 Adjustments in anticoagulant therapy dose should be based upon the INR and NOT the Pro Time. Blood specimen (specimen) BLOOD SPECIMEN / Unknown 02/27/2016 8:45 EDT 02/27/2016 8:54 EDT us Gulshan Drummond MD PhD HEMATOLOGY & P F4 ORDERABLES Final Result Performing Organization Address [facility] Co de Phone Number [facility] [address] [place] [address] * HEMAGRAM (02/27/2016 8:45 EDT) WBC 6.47 4.0 - 10.4 K/cmm 02/27/2016 8:57 EDT [facility] RBC 4.51 4.36 - 5.78 M/cmm 02/27/2016 8:57 T [facility] Hemoglobin 14.7 13.8 - 17.3 gm/dl 02/27/2016 8:57 EDT [facility] HCT 41.7 39.5 - 50.2 % 02/27/2016 8:57 EDT [facility] MCV 93 81 - 95 fl 02/27/2016 8:57 EDT [facility] MCH 32.6 27.6 - 33.0 pg 02/27/2016 8:57 EDT [facility] MCHC 35.3 32.8 - 36.4 gm/dl 02/27/2016 8:57 EDT [facility] RDW-CV 13.1 11.8 - 14.1 % 02/27/2016 8:57 EDT [facility] RDW-SD 44.0 36.5 - 45.9 fl 02/27/2016 8:57 EDT [facility] PLT 176 141 - 377 K/cmm 02/27/2016 8:57 EDT [facility] MPV 10.7 9.5 - 12.7 fl 02/27/2016 8:57 EDT [facility] Blood specimen (specimen) BLOOD SPECIMEN / Unknown 02/27/2016 8:45 EDT 02/27/2016 8:54 EDT us Gulshan Drummond MD PhD HEMATOLOGY & P F4 ORDERABLES Final Result Performing Organization Address City/[facility] Co de Phone Number [facility] [address] [place] [address] * ELECTROLYTES (02/27/2016 8:45 EDT) Sodium 142 136 - 145 mEq/L 02/27/2016 9:13 T [facility] Potassium 4.7 3.5 - 5.0 mEq/L 02/27/2016 9:13 T [facility] Chloride 103 96 - 110 mEq/L 02/27/2016 9:13 EDT [facility] CO2 27 22 - 32 mEq/L 02/27/2016 9:13 T [facility] Comment:Note new reference r hong 02/19/16 Blood specimen (specimen) BLOOD SPECIMEN / Unknown 02/27/2016 8:45 EDT 02/27/2016 8:54 EDT us Gulshan Drummond MD PhD CHEMISTRY & BL OOD GAS ORDERABLES Final Result Performing Organization Address City/[facility]/ZIP Co de Phone Number [facility] [address] [place] [address] * CREATININE (02/27/2016 8:45 EDT) Creatinine 0.69 0.66 - 1.25 mg/dl 02/27/2016 9:13 EDT [facility] GFR, Calculated 93 >60 ml/min/1.7 3m2 02/27/2016 9:13 EDT [facility] Comment: eGFR calculated using CKD-EPI equation for non Americans. Multiply eGFR by 1.16 for Americans. Blood specimen (specimen) BLOOD SPECIMEN / Unknown 02/27/2016 8:45 EDT 02/27/2016 8:54 EDT us Gulshan Drummond MD PhD CHEMISTRY & BL OOD GAS ORDERABLES Final Result Performing Organization Address City/[facility] Co de Phone Number [facility] [address] [place] [address] * BUN (02/27/2016 8:45 EDT) BUN 17 10 - 26 mg/dl 02/27/2016 9:13 EDT [facility] Blood specimen (specimen) BLOOD SPECIMEN / Unknown 02/27/2016 8:45 EDT 02/27/2016 8:54 EDT us Gulshan Drummond MD PhD CHEMISTRY & BL OOD GAS ORDERABLES Final Result Performing Organization Address City/[facility] Co de Phone Number [facility] [address] [place] [address] * EKG 12-LEAD (02/27/2016 8:08 EDT) 02/27/2016 8:08 EDT Narrative [facility] EKG - 02/28/2016 9:01 EDT ? [facility] ? Test Date: ?2016-02-27 Pat Name: ? NABIL IGLESIAS ? Department: ?? [facility] ? Room: ? FE7570 Gender: ? M ?Environmental Issues Instructor: ?? [id number] : ?1940 ? Requested By: MARCIA Boo Order Number: [id number] ? Reading MD: ?? BRAYAN CUENCA MD ? Measurements Intervals ?[place] ? Rate: ? 69 ? P: ?147 [...] Date: 2016-02-27 Pat Name: NABIL IGLESIAS Department: [facility] Room: [id number] Gender: M Environmental Issues Instructor: [id number] : 1940 Requested By: MARCIA Boo Order Number: [id number] Reading MD: BRAYAN CUENCA MD Measurements Intervals [place] Rate: 69 P: 147 CA: 134 QRS: -67 QRSD: 160 T: -59 QT: 434 QTc: 467 Interpretive Statements ELECTRONIC ATRIAL PACEMAKER ELECTRONIC VENTRICULAR PACEMAKER Compared to ECG 02/27/2016 08:08:46 No significant changes I reviewed the tracing and have either agreed or edited the findings inthis report. Electronically Signed On 02-28-16 09:01:04 EDT by BRAYAN BEEBE. Navdeep Hurd MD CARDIAC ECG ORDERABLES Final Result [facility] EKG documented in this encounter [...] Reason: Other - Comment: pt already took REIMBURSEMENT MANAGER, takes other meds at HS) 921 (Given - Provider: Sydnee Gallagher RN) atorvastatin (LIPITOR) tablet 40 mg 40 mg, oral, AT BEDTIME, First dose on Thu02/27/16 at 2100, Until Discontinued, Routine 210 (Given - Provider: Mady Bruno, JADON) carvedilol (COREG) tablet 3.125 mg 3.125 mg, [...] Reason: Other - Comment: pt already took REIMBURSEMENT MANAGER, takes other meds at HS)210 (Given - Provider: Mady Bruno, JADON) spironolactone (ALDACTONE) tablet 12.5 mg 12.5 mg, oral, DAILY, First dose on Thu02/27/16 at 1245, Until Discontinued, Routine 1306 (Not Given - Provider: Nneka Stuart RN - Reason: Other - Comment: pt already took REIMBURSEMENT MANAGER, takes other meds at HS)210 (Given - Provider: Mady Bruno RN) tamsulosin (FLOMAX) capsule 0.4 mg 0.4 mg, oral, DAILY, First dose on Thu02/27/16 at 1245, Until Discontinued, Routine 1306 (Not Given - Provider: Nneka Stuart RN - Reason: Other - Comment: pt already took REIMBURSEMENT MANAGER, takes other meds at HS) 09 (Given - Provider: Sydnee Gallagher RN) PRN Medication Order 02/26/2016 02/27/2016 02/28/2016 acetaminophen (TYLENOL) tablet 650 mg 650 mg, oral, EVERY 4 HOURS PRN, Starting on Thu02/27/16 at 1550, Until Grisel 02/28/16 at 1540, Pain, Routine 1858 (Given - Provider: Ronna Stuart RN) bacitracin injection (COMPLETED) topical, PRN, Starting on [...] at 0919, Until Thu02/27/16 at 1058, Routine 0919 (Given - Provider: Ada Onofre RN)0928 (Given - Provider: Reina Onofre RN)0954 (Given - Provider: Reina Onofre RN)1008 (Given - Provider: Reina Onofre RN)1048 (Given - Provider: Reina Onofre RN)1058 (Given - Provider: Reina Onofre RN) midazolam (PF) (VERSED) 1 mg/mL injection (COMPLETED) intravenous, PRN, Starting on Thu02/27/16 at 0919, Until Thu02/27/16 at 1115, Routine 0919 (Given - Provider: Ada Onofre RN)0928 (Given [...] 02/02 documented in this encounter Care Teams Linux Admin Engineer Relationship Specialty Start Date End Date Clem Olvera MD [address] [place] [address] PCP - General 12/18/15 documented as of this encounter
--- OUTSIDE RECORDS SUMMARY | 2024-03-15 08:01 | XMS_ITS | Encounter Summary ---
Author Organization [facility] Address [address] [place] [address] Care Team Providers Care Field Insurance Sales Manager Name Role Phone Clem Olvera MD Primary Care Provider [phone] Reason for Visit * Reason Onset Date Comments Appointment Related 10/23/2016 Check for fo llow up of pacer Encounter Details Date Type Department Care Team ([facility] st Contact Info) Description 10/23/[address] [facility] Cardiology - [address] [place] [address] Pacemaker, Pace Appointment Related (Check for follow up of pacer) Social History Tobacco Use Types Packs/Day Years Used Date Smoking Tobacco: Former Cigarettes 1 5 1989 Alcohol Use Standard Drinks/Week Comments [...] Date of Assessment Author No 02/27/2016 14:17 EDT Tea Stuart RN documented as of this encounter Mental Status * Because of a physical, mental, or emotional condition, do you have serious difficulty concentrating, remembering, or making decisions? (5 years old or older) Answer Entry Date Author No 02/27/2016 14:17 EDT Tea Stuart RN documented in this encounter Miscellaneous Notes * Telephone Encounter - Pushpa Shay - 10/23/2016 6827 EDT Spoke with Mrs. Iglesias who stated that Nabil had his pacemaker checked in [place] where they are for the winter. They have some back and are being followed by Dr. Hurd at [facility]. documented in this encounter Plan of Treatment Not on file documented as of this encounter Visit Diagnoses Not on filedocumented in this encounter Care Teams Field Insurance Sales Manager Relationship Specialty Start Date End Date Clem Olvera MD [address] [place] [id number] PCP - General 12/18/15 documented as of this encounter
--- OUTSIDE RECORDS SUMMARY | 2024-03-15 08:01 | XMS_ITS | Clinical Summary ---
Author Organization [facility] Address [address] [place] [address] Care Team Providers Care Dispatch Officer Name Role Phone Clem Olvera MD Primary Care Provider [phone] Allergies No known active allergies Medications atorvastatin [...] PACEMAKER INSERTION 05/04/2002 - 05/03/20032013 second pacemaker [facility] Medical History Medical History Date Comments CAD (coronary artery disease) Ischemic cardiomyopathy AV block, 2nd degree LBBB (left bundle branch block) ICD (implantable cardioverter-defibrillator) in place ICD (implantable cardioverter-defibrillator) bat simone kemar Social History Tobacco Use Types Packs/Day Years [...] Health Maintenance Due Date Last Done Comments Fall Risk Screening 2005 RSV Immunization ( o r 60+ Years) (1 - 1-dose 75+ series) 08/19/2015 COVID-19 Vaccine (2023- season) 2024 [place] [id number] Advance Directives For more information, please contact: [phone] * Full Code (Latest Code Status on File) Date Activated Date Inactivated Comments 02/27/2016 8:49 02/28/2016 15:40 Question Answer Comments Reason for decision includes: Full code consistent with overall plan of care Who participated in the discussion? Not Discusse d Care Teams Dispatch Officer Relationship Specialty Start Date End Date Clem Olvera MD [address] [place] [address] PCP - General 12/18/15
--- OUTSIDE RECORDS SUMMARY | 2024-03-15 08:02 | XMS_ITS | Encounter Summary ---
Author Organization [facility] [place] [address] Care Team Providers Care Accreditation Manager Name Role Phone Marques Martinez MD Primary Care Provider [phone] Encounter Details Date Type Department Care Team (Late st Contact Info) Description 06/12/2010 2:10 PM EST Office [place] [phone] Jairon Fenton MD [facility] [place] [address] Discharge Disposition: Home Social History Tobacco Use [...] AM EST Hospital Encounter [place] [address] Arrived documented as of this encounter Visit Diagnoses Not on filedocumented in this encounter Care Teams Accreditation Manager Relationship Specialty Start Date End Date Marques Martinez MD [address] [place] [address] PCP - General 04/01/10 04/08/11 documented as of this encounter
--- OUTSIDE RECORDS SUMMARY | 2024-03-15 08:02 | XMS_ITS | Encounter Summary ---
[place] [address] Care Team Providers Care Freight Delivery Driver Name Role Phone Donny Cooper MD Primary Care Provider [phone] Encounter Details Date Type Department Care Team (Latest Contact Info) Description 11/04/2023 10:00 AM EDT - 11/04/2023 11:59 PM EDT Hospital Encounter Non-Invasive [place] [address] Discharge Disposition: Home Social History Tobacco Use [...] Contact Info) Description 05/02/2024 10:00 AM [facility] Hospital Encounter Non-Invasive [place] [address] Arrived documented as of [...] on filedocumented in this encounter Care Teams Freight Delivery Driver Relationship Specialty Start Date End Date Donny Cooper MD [address] [place] [address] PCP - General Family Medicine 02/25/19 documented as of this encounter
--- OUTSIDE RECORDS SUMMARY | 2024-03-15 08:02 | XMS_ITS | Encounter Summary ---
[place] [address] Care Team Providers Care Communications Technician Name Role Phone Donny Cooper MD Primary Care Provider [phone] Encounter Details Date Type Department Care Team (Late st Contact Info) Description 01/05/2024 Telephone Cardiology at [address] [address] Kanika Shell Social History Tobacco [...] AM EST Hospital Encounter Non-Invasive [place] [address] Arrived documented as of this encounter Visit Diagnoses Not on filedocumented in this encounter Care Teams Communications Technician Relationship Specialty Start Date End Date Donny Cooper MD [address] [place] [address] PCP - General Family Medicine 02/25/19 documented as of this encounter
--- OUTSIDE RECORDS SUMMARY | 2024-03-15 08:02 | XMS_ITS | Encounter Summary ---
[place] [address] Care Team Providers Care Propulsion Machinery Service Engineer Name Role Phone Donny Cooper MD Primary Care Provider [phone] Encounter Details Date Type Department Care Team (Late st Contact Info) Description 12/28/2023 Notes Only Cardiology at [address] [address] Kanika Shell Social History Tobacco Use Types [...] st Contact Info) Description 05/02/2024 10:00 AM [facility] Hospital Encounter Non-[place] [address] Arrived documented as of this encounter Visit Diagnoses Not on filedocumented in this encounter Care Teams Propulsion Machinery Service Engineer Relationship Specialty Start Date End Date Donny Cooper MD [address] [facility] [address] [place] [address] PCP - General Family Medicine 02/25/19 documented as of this encounter
--- OUTSIDE RECORDS SUMMARY | 2024-03-15 08:02 | XMS_ITS | Encounter Summary ---
Author Organization [facility] [place] [address] Care Team Providers Care Consumer Electronic Retail Specialist Name Role Phone Clem Olvera MD Primary Care Provider [phone] Reason for Visit * Reason Comments Follow Up Fracture SP PATELLA FX DO12/12 DOI 03/30/10 Encounter Details Date Type Department Care Team (Late st Contact Info) Description 04/09/2011 1:30 PM EST Office [place] [address] [facility] [place] [address] [facility] [place] [address] Patella fracture (Primary Dx) Discharge Disposition: Home [...] AM EST Hospital Encounter Non-Invasive [place] [address] Arrived documented as of this encounter Visit Diagnoses Diagnosis Patella fracture- Primary Closed fracture of patella documented in this encounter Care Teams Consumer Electronic Retail Specialist Relationship Specialty Start Date End Date Clem Olvera MD [address] [place] [address] PCP - General 04/09/11 02/24/19 documented as of this encounter
--- OUTSIDE RECORDS SUMMARY | 2024-03-15 08:02 | XMS_ITS | Encounter Summary ---
Author Organization [facility] [place] [address] Care Team Providers Care Spindle Plumber Name Role Phone Marques Martinez MD Primary Care Provider [phone] Reason for Visit * Reason Comments Follow Up Fracture PATELLA FX DOI 03/23 10 Encounter Details Date Type Department Care Team (Late st Contact Info) Description 10/09/2010 12:40 PM EDT Office [place] [address] Jairon Gustafson MD [facility] [place] [address] Jose Francisco Bee PA [facility] [place] [address] Quadriceps tendon rupture (Primary Dx) Discharge Disposition: [...] 6 months or sooner as needed. * aJiron Gustafson MD - 10/09/2010 1:29 PM EDT [facility] [address] Arrived documented as of this encounter Visit Diagnoses Diagnosis Quadriceps tendon rupture- Primary Sprain and strain of other specified sites of knee and leg documented in this encounter Care Teams Spindle Plumber Relationship Specialty Start Date End Date Marques Martinez MD [address] [place] [address] PCP - General 04/01/10 04/08/11 documented as of this encounter
--- OUTSIDE RECORDS SUMMARY | 2024-03-15 08:02 | XMS_ITS | Encounter Summary ---
[place] [address] Care Team Providers Care Blog Writer Name Role Phone Donny Cooper MD Primary Care Provider [phone] Encounter Details Date Type Department Care Team [...] st Contact Info) Description 05/02/2024 10:00 AM [facility] Hospital Encounter Non[place] [address] Arrived documented as of this encounter Visit Diagnoses Not on filedocumented in this encounter Care Teams Blog Writer Relationship Specialty Start Date End Date Donny Cooper MD [address] [place] [address] PCP - General Family Medicine 02/25/19 documented as of this encounter
--- OUTSIDE RECORDS SUMMARY | 2024-03-15 08:02 | XMS_ITS | Encounter Summary ---
[place] [address] Care Team Providers Care Gypsum Calciner Name Role Phone Donny Cooper MD Primary Care Provider [phone] Encounter Details Date Type Department Care Team (Latest Contact Info) Description 08/06/2023 10:00 AM EDT - 08/06/2023 11:59 PM EDT Hospital Encounter Non-Invasive [place] [address] Discharge Disposition: Home Social History Tobacco Use [...] [facility] Hospital Encounter Non-Invasive [place] [address] Arrived documented as of this encounter Visit Diagnoses Not on filedocumented in this encounter Care Teams Gypsum Calciner Relationship Specialty Start Date End Date Donny Cooper MD [address] [place] [address] PCP - General Family Medicine 02/25/19 documented as of this encounter
--- OUTSIDE RECORDS SUMMARY | 2024-03-15 08:02 | XMS_ITS | Encounter Summary ---
Author Organization [facility] [place] [address] Care Team Providers Care Echocardiographer Name Role Phone Marques Martinez MD Primary Care Provider [phone] Encounter Details Date Type Department Care Team (Late st Contact Info) Description 05/01/2010 3:10 PM EST Office [place] [address] Jairon Fenton MD [facility] DR [place] [address] Discharge Disposition: Home Social History Tobacco Use [...] AM EST Hospital Encounter Non-[place]vasive [place] [address] Arrived documented as of this encounter Visit Diagnoses Not on filedocumented in this encounter Care Teams Echocardiographer Relationship Specialty Start Date End Date Marques Martinez MD [address] [place] [address] PCP - General 04/01/10 04/08/11 documented as of this encounter
--- OUTSIDE RECORDS SUMMARY | 2024-03-15 08:02 | XMS_ITS | Encounter Summary ---
Author Organization [facility] Address [address] [place] [address] Care Team Providers Care Rail Splitter Name Role Phone Unavailable Primary Care Provider Unavailabl e Encounter Details Date Type Department Care Team (Late st Contact Info) Description 05/06/2001 Results Only [facility] - Maple conversion [address] [place] [address] Hernandez Partida MD [address] [place] [address] Social History Tobacco Use Types Packs/Day Years [...] taken when reading/interpreting unformatted reports. Name: ? NABIL IGLESIAS ? Accession #: ? [id number] ? : [...] the intradepartmental consultation conference on 05/10/01. ??(Dr. Livingston)/kirk Document reviewed and electronically signed by: Oralia [...] is submitted entirely in cassette (B). ??(Naty Caal)/[facility] End of Report [facility] 05/06/2001 05/07/2001 9:2 5 EST us Hernandez Partida MD PATHOLOGY ORDERABLES Final Res ult [facility] [address] [place] [address] documented in this encounter Visit Diagnoses Not on filedocumented in this encounter
--- OUTSIDE RECORDS SUMMARY | 2024-03-15 08:02 | XMS_ITS | Encounter Summary ---
[place] [address] Care Team Providers Care Hospice Educator Name Role Phone Donny Cooper MD Primary Care Provider [phone] Encounter Details Date Type Department Care Team (Latest Contact Info) Description 07/02/2023 10:00 AM EST - 07/02/2023 11:59 PM EST Hospital Encounter [place] [address] Discharge Disposition: Home Social History Tobacco Use [...] [facility] Hospital Encounter [place] [address] Arrived documented as of this encounter Visit Diagnoses Not on filedocumented in this encounter Care Teams Hospice Educator Relationship Specialty Start Date End Date Donny Cooper MD [address] [place] [address] PCP - General Family Medicine 02/25/19 documented as of this encounter
--- OUTSIDE RECORDS SUMMARY | 2024-03-15 08:02 | XMS_ITS | Encounter Summary ---
[place] [address] Care Team Providers Care Pharmacy Resource Tech Name Role Phone Marques Martinez MD Primary Care Provider [phone] Encounter Details Date Type Department Care Team (Late st Contact Info) Description 06/12/2010 2:00 PM EST Procedure visit [place] [address] Social History Tobacco Use Types Packs/Day Years [...] AM EST Hospital Encounter Non-[place] [address] Arrived documented as of this encounter Visit Diagnoses Not on filedocumented in this encounter Care Teams Pharmacy Resource Tech Relationship Specialty Start Date End Date Marques Martinez MD [address] [place] [address] PCP - General 04/01/10 04/08/11 documented as of this encounter
--- OUTSIDE RECORDS SUMMARY | 2024-03-15 08:02 | XMS_ITS | Encounter Summary ---
[facility] [place] [address] Care Team Providers Care Donation Worker Name Role Phone Marques Martinez MD Primary Care Provider Encounter Details Date Type Department Care Team (Late st Contact Info) Description 09/11/2010 Orders [place] [address] Jairon Fenton MD [facility] [place] [address] Fracture of patella, left, closed (Primary Dx) [...] st Contact Info) Description 05/02/2024 10:00 AM [facility] Hospital Encounter Non[place] [address] Arrived documented as of this encounter Visit Diagnoses Diagnosis Fracture of patella, left, closed- Primary Closed fracture of patella documented in this encounter Care Teams Donation Worker Relationship Specialty Start Date End Date Marques Martinez MD [address] [place] [address] PCP - General 04/01/10 04/08/11 documented as of this encounter
--- OUTSIDE RECORDS SUMMARY | 2024-03-15 08:02 | XMS_ITS | Encounter Summary ---
[place] [address] Care Team Providers Care Carpet Cutter Name Role Phone Marques Martinez MD Primary Care Provider [phone] Encounter Details Date Type Department Care Team (Late st Contact Info) Description 05/01/2010 2:40 PM EST Procedure visit [place] [address] Social History Tobacco Use Types Packs/Day Years [...] AM EST Hospital Encounter Non-[place] [address] Arrived documented as of this encounter Visit Diagnoses Not on filedocumented in this encounter Care Teams Carpet Cutter Relationship Specialty Start Date End Date Marques Martinez MD [address] [place] [address] PCP - General 04/01/10 04/08/11 documented as of this encounter
--- OUTSIDE RECORDS SUMMARY | 2024-03-15 08:02 | XMS_ITS | Encounter Summary ---
[place] [address] Care Team Providers Care Photoresist Printer Name Role Phone Donny Cooper MD Primary Care Provider [phone] Encounter Details Date Type Department Care Team (Latest Contact Info) Description 01/03/2023 10:00 AM EDT - 01/03/2023 11:59 PM EDT Hospital Encounter Non-Invasive [place] [address] Discharge Disposition: Home Social History Tobacco Use [...] st Contact Info) Description 05/02/2024 10:00 AM [facility] Hospital Encounter Non-Invasive [place] [address] Arrived documented as of this [...] on filedocumented in this encounter Care Teams Photoresist Printer Relationship Specialty Start Date End Date Donny Cooper MD [address] [place] [address] PCP - General Family Medicine 02/25/19 documented as of this encounter
--- OUTSIDE RECORDS SUMMARY | 2024-03-15 08:02 | XMS_ITS | Encounter Summary ---
Author Organization [facility] [place] [address] Care Team Providers Care Brake Lining Maker Name Role Phone Donny Cooper MD Primary Care Provider [phone] Encounter Details Date Type Department Care Team (Late st Contact Info) Description 07/26/2019 Notes Only Cardiology at [address] [address] [facility] [place] [address] Social History Tobacco Use Types Packs/Day Years [...] his Medtronic biventricular ICD is reviewed. Suboptimal WATCH MECHANIC at 84%. Normal device function. Awaiting Holter to assess PVC burden. Maged Arguelles MD S Cardiac Electrophysiology 07/26/2019 9:04 AM documented in this encounter Plan of Treatment Upcoming Encounters Date Type Department Care Team (Late st Contact Info) Description 05/02/2024 10:00 AM EST Hospital Encounter Non-Invasive [place] [address] Arrived documented as of this encounter Visit Diagnoses Not on filedocumented in this encounter Care Teams Brake Lining Maker Relationship Specialty Start Date End Date Donny Cooper MD [address] [place] [address] PCP - General Family Medicine 02/25/19 documented as of this encounter
--- OUTSIDE RECORDS SUMMARY | 2024-03-15 08:02 | XMS_ITS | Encounter Summary ---
Author Organization [facility] [place] [address] Care Team Providers Care Auto Mechanic Apprentice Name Role Phone Donny Cooper MD Primary Care Provider [phone] Encounter Details Date Type Department Care Team (Latest Contact Info) Description 06/13/2020 12:35 PM EST - 06/13/2020 11:59 PM EST Hospital Encounter Non[place] [address] Alber Seals MD [facility] [place] [address] Cardiomyopathy, primary Discharge Disposition: Home Social History [...] AM EST Hospital Encounter Non[place] [address] Arrived documented as of this encounter Procedures Procedure Name Priority Date/Time Associated Diagnosis Comments ICD INTERROGATION 3 MONTH Routine 06/13/2020 12:36 PM EST Cardiomyopathy, primary documented in this encounter Results * ICD INTERROGATION 3 MONTH (06/13/2020 12:36 PM EST) Anatomical Region Laterality Modality Other Narrative 06/14/2020 10:38 AM EST Cardiac Device Remote Monitoring Report Summary [employer] 06/14/20 Device: BUGGY RUNNER-D Model: VIVA QUAD Battery: 2.96 v, estimated longevity 3 years, 11 months Pacing percentage: 78% ventricular paced Events: The presenting rhythm is atrial paced with biventricular pacing and frequent ventricular premature contractions No significant arrhythmias Impression Normal device function; suboptimal BUGGY RUNNER pacing likely secondary to frequent PVCs. Should consider in clinic follow-up for further evaluation Follow Up As per schedule - in-clinic and remote ALBER SEALS MD Alber Seals MD IMPLANTABLE CARDIAC DEVICE documented in this encounter Visit Diagnoses Diagnosis Cardiomyopathy, primary Other primary cardiomyopathies documented in this encounter Care Teams Auto Mechanic Apprentice Relationship Specialty Start Date End Date Donny Cooper MD [address] [place] [address] PCP - General Family Medicine 02/25/19 documented as of this encounter
--- OUTSIDE RECORDS SUMMARY | 2024-03-15 08:02 | XMS_ITS | Encounter Summary ---
Author Organization [facility] Address [address] [place] [address] Care Team Providers Care Intelligence Specialist Name Role Phone Unavailable Primary Care Provider Unavailabl e Encounter Details Date Type Department Care Team (Late st Contact Info) Description 12/02/2012 Results Only [facility] - [facility] [place] [facility] [place] [address] [place] [phone] Satinder Edwards MD [address] [place] [phone] Social History Tobacco Use Types Packs/Day Years [...] when reading/interpreti ng unformatted reports. Name: ? ABDIAZIZCHARMAINE ? Accession #: ? [id number] ? : ? 1940 (Age: 72) ??M [...] 12/03/2012 08:11 AM End of Report [facility] 12/02/2012 16:5 1 EDT 12/02/2012 16:51 EDT us Satinder Edwards MD PATHOLOGY ORDERABLES Final Result [facility] [address] [place] [address] documented in this encounter Visit Diagnoses Not on filedocumented in this encounter
--- OUTSIDE RECORDS SUMMARY | 2024-03-15 08:02 | XMS_ITS | Encounter Summary ---
[place] [address] Care Team Providers Care Collar Setter Overlock Name Role Phone Donny Cooper MD Primary Care Provider [phone] Encounter Details Date Type Department Care Team (Latest Contact Info) Description 04/03/2023 10:00 AM EST - 04/03/2023 11:59 PM [facility] Hospital Encounter Non-Invasive [place] [address] Discharge Disposition: Home Social History Tobacco Use [...] [facility] Hospital Encounter Non-Invasive [place] [address] Arrived documented as of this [...] filedocumented in this encounter Care Teams Collar Setter Overlock Relationship Specialty Start Date End Date Donny Cooper MD [address] [place] [address] PCP - General Family Medicine 02/25/19 documented as of this encounter
--- OUTSIDE RECORDS SUMMARY | 2024-03-15 08:02 | XMS_ITS | Encounter Summary ---
Author Organization [facility] [place] [address] Care Team Providers Care Calculus Professor Name Role Phone Marques Martinez MD Primary Care Provider [phone] Encounter Details Date Type Department Care Team (Late st Contact Info) Description 10/09/2010 11:35 AM EDT - 10/09/2010 11:59 PM EDT Hospital Encounter XRay at [address] [place] [address] Social History Tobacco Use Types [...] AM EST Hospital Encounter Non-Invasive Cardiology Lab [facility] [place] [address] Arrived documented as of this encounter Visit Diagnoses Not on filedocumented in this encounter Care Teams Calculus Professor Relationship Specialty Start Date End Date Marques Martinez MD [address] [place] [address] PCP - General 04/01/10 04/08/11 documented as of this encounter
--- OUTSIDE RECORDS SUMMARY | 2024-03-15 08:02 | XMS_ITS | Encounter Summary ---
[place] [address] Care Team Providers Care Re Dye Hand Name Role Phone Donny Cooper MD Primary Care Provider [phone] Encounter Details Date Type Department Care Team (Late st Contact Info) Description 03/17/2019 Telephone Cardiology at [address] [address] Sheri Quinn LNA Social History [...] 11:46 AM EST Medication list reviewed with [facility] list. Please review with patient at next clinic visit. documented in this encounter Plan of Treatment Upcoming Encounters Date Type Department Care Team (Late st Contact Info) Description 05/02/2024 10:00 AM EST Hospital Encounter Non-Invasive [place] [address] Arrived documented as of this encounter Visit Diagnoses Not on filedocumented in this encounter Care Teams Re Dye Hand Relationship Specialty Start Date End Date Donny Cooper MD [address] [place] [address] PCP - General Family Medicine 02/25/19 documented as of this encounter
--- OUTSIDE RECORDS SUMMARY | 2024-03-15 08:02 | XMS_ITS | Encounter Summary ---
[place] [address] Care Team Providers Care Human Factors Specialist Name Role Phone Donny Cooper MD Primary Care Provider [phone] Encounter Details Date Type Department Care Team (Late st Contact Info) Description 06/14/2020 Telephone Cardiology at [address] [address] Nhung Briggs Social History Tobacco Use Types [...] or LANG Albert. Nhung Allen Electrophysiology Scheduling [id number] option 2 documented in this encounter Plan of Treatment Upcoming Encounters Date Type Department Care Team (Late st Contact Info) Description 05/02/2024 10:00 AM EST Hospital Encounter [place] [address] Arrived documented as of this encounter Visit Diagnoses Not on filedocumented in this encounter Care Teams Human Factors Specialist Relationship Specialty Start Date End Date Donny Cooper MD [address] [place] [address] PCP - General Family Medicine 02/25/19 documented as of this encounter
--- OUTSIDE RECORDS SUMMARY | 2024-03-15 08:02 | XMS_ITS | Encounter Summary ---
[place] [address] Care Team Providers Care Sonogram Technician Name Role Phone Donny Cooper MD Primary Care Provider [phone] Encounter Details Date Type Department Care Team (Latest Contact Info) Description 04/08/2022 10:00 AM EST - 04/08/2022 11:59 PM [facility] Hospital Encounter Non-[place] [address] Discharge Disposition: Home Social History Tobacco Use [...] Hospital Encounter Non-[place] [address] Arrived documented as of this [...] on filedocumented in this encounter Care Teams Sonogram Technician Relationship Specialty Start Date End Date Donny Cooper MD [address] [place] [address] PCP - General Family Medicine 02/25/19 documented as of this encounter
--- OUTSIDE RECORDS SUMMARY | 2024-03-15 08:02 | XMS_ITS | Encounter Summary ---
[place] [address] Care Team Providers Care Emergency Medicine Specialist Name Role Phone Donny Cooper MD Primary Care Provider [phone] Encounter Details Date Type Department Care Team (Latest Contact Info) Description 02/02/2024 10:00 AM EDT - 02/02/2024 11:59 PM EDT Hospital Encounter [place] [address] Discharge Disposition: Home Social History Tobacco Use [...] [facility] Hospital Encounter [place] [address] Arrived documented as of this encounter Visit Diagnoses Not on filedocumented in this encounter Care Teams Emergency Medicine Specialist Relationship Specialty Start Date End Date Donny Cooper MD [address] [place] [address] PCP - General Family Medicine 02/25/19 documented as of this encounter
--- OUTSIDE RECORDS SUMMARY | 2024-03-15 08:02 | XMS_ITS | Encounter Summary ---
[place] [address] Care Team Providers Care Bit And Shank Department Supervisor Name Role Phone Donny Cooper MD Primary Care Provider [phone] Encounter Details Date Type Department Care Team (Latest Contact Info) Description 10/05/2022 10:00 AM EDT - 10/05/2022 11:59 PM EDT Hospital Encounter Non-Invasive [place] [address] Discharge Disposition: Home Social History Tobacco Use [facility] Encounter Non-Invasive [place] [address] Arrived documented as of this [...] on filedocumented in this encounter Care Teams Bit And Shank Department Supervisor Relationship Specialty Start Date End Date Donny Cooper MD [address] [place] [address] PCP - General Family Medicine 02/25/19 documented as of this encounter
--- OUTSIDE RECORDS SUMMARY | 2024-03-15 08:02 | XMS_ITS | Encounter Summary ---
Author Organization [facility] [place] [address] Care Team Providers Care News Production Supervisor Name Role Phone Donny Cooper MD Primary Care Provider [phone] Encounter Details Date Type Department Care Team (Latest Contact Info) Description 10/03/2022 10:00 AM EDT Office Visit Cardiology at [address] [address] El[place] No, [place] [facility] [place] [address] Cardiomyopathy, primary; Presence of cardiac resynchronization therapy defibrillator (LIAISON OFFICER-D); Diaphragmatic stimulation by cardiac pacemaker, initial [...] original note were not included. Cardiac Device LIAISON OFFICER-D Programming Evaluation Nabil Iglesias [id number] 10/03/2022 History: Mr. 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 [...] AM EST Hospital Encounter Non-Invasive [place] [address] Arrived documented as of this encounter Procedures Procedure Name Priority Date/Time Associated Diagnosis Comments EKG 12-LEAD Routine 10/03/2022 11:00 AM EDT Cardiomyopathy, primary Presence of cardiac resynchronization therapy defibrillator (LIAISON OFFICER-D) Diaphragmatic stimulation by cardiac pacemaker, initial encounter documented in this encounter Results * EKG 12 Lead (10/03/2022 11:00 AM EDT) Ventricular rate 74 BPM MUSE SYSTEM Atrial Rate 74 BPM MUSE SYSTEM P-R Interval 154 ms MUSE SYSTEM QRS Duration 162 ms MUSE SYSTEM Q-T Interval 470 ms MUSE SYSTEM QTC Calculated (Bezet) 521 ms MUSE SYSTEM Calculated P Troy 30 degrees MUSE SYSTEM Calculated R Troy -98 degrees MUSE SYSTEM Calculated T Troy 41 degrees MUSE SYSTEM INTERPRETATION Atrial-sense d [...] cardiomyopathies Presence of cardiac resynchronization therapy defibrillator (LIAISON OFFICER-D) Diaphragmatic stimulation by cardiac pacemaker, initial encounter documented in this encounter Care Teams News Production Supervisor Relationship Specialty Start Date End Date Donny Cooper MD [address] [place] [address] PCP - General Family Medicine 02/25/19 documented as of this encounter
--- OUTSIDE RECORDS SUMMARY | 2024-03-15 08:02 | XMS_ITS | Encounter Summary ---
Author Organization [facility] [place] [address] Care Team Providers Care Director Personal Name Role Phone Donny Cooper MD Primary Care Provider [phone] Encounter Details Date Type Department Care Team (Latest Contact Info) Description 06/25/2021 3:23 PM EST - 06/25/2021 11:59 PM EST Hospital Encounter Non-[place] [address] Alber Seals MD [facility] [place] [address] Cardiomyopathy, primary Discharge Disposition: Home Social History [...] AM EST Hospital Encounter Non-[place]vasive [place] [address] Arrived documented as of this encounter Procedures Procedure Name Priority Date/Time Associated Diagnosis Comments ICD INTERROGATION 3 MONTH Routine 06/25/2021 3:24 PM EST Cardiomyopathy, primary documented in this encounter Results * ICD INTERROGATION 3 MONTH (06/25/2021 3:24 PM EST) Anatomical Region Laterality Modality Other Narrative 06/25/2021 3:42 PM EST Cardiac Device Remote Monitoring Report Summary Medtronic Carelink Device: TANK OPERATOR-D Model: VIVA QUAD Battery: 2.95 v, estimated longevity 2 years 6 months Pacing percentage: 90% TANK OPERATOR paced Events: Presenting rhythm: atrial paced/biventricular paced Frequent PVC's Impression Normal device function Follow Up As per schedule - in-clinic and remote ALBER SEALS MD 06/25/21 Alber Seals MD IMPLANTABLE CARDIAC DEVICE documented in this encounter Visit Diagnoses Diagnosis Cardiomyopathy, primary Other primary cardiomyopathies documented in this encounter Care Teams Director Personal Relationship Specialty Start Date End Date Donny Cooper MD [address] [place] [address] PCP - General Family Medicine 02/25/19 documented as of this encounter
--- OUTSIDE RECORDS SUMMARY | 2024-03-15 08:02 | XMS_ITS | Encounter Summary ---
Author Organization [facility] [place] [address] Care Team Providers Care Insurance Examiner Name Role Phone Donny Cooper MD Primary Care Provider [phone] Encounter Details Date Type Department Care Team (Latest Contact Info) Description 12/18/2020 11:57 AM EDT - 12/18/2020 11:59 PM EDT Hospital Encounter [place] [address] Maged Arguelles MD [facility] [place] [address] Cardiomyopathy, primary Discharge Disposition: Home Social History [...] AM EST Hospital Encounter Non-[place] [address] Arrived documented as of this encounter Procedures Procedure Name Priority Date/Time Associated Diagnosis Comments ICD INTERROGATION 3 MONTH Routine 12/18/2020 12:00 PM EDT Cardiomyopathy, primary documented in this encounter Results * ICD INTERROGATION 3 MONTH (12/18/2020 12:00 PM EDT) Anatomical Region Laterality Modality Other Narrative 12/23/2020 11:08 PM EDT MDT WIRE INSPECTOR-D remote reviewed. Normal device function. Inadequate WIRE INSPECTOR at 80%. aMged Arguelles MD [facility] Cardiac Electrophysiology 12/23/2020 11:06 PM Maged Arguelles MD IMPLANTABLE CARDIAC DEVICE documented in this encounter Visit Diagnoses Diagnosis Cardiomyopathy, primary Other primary cardiomyopathies documented in this encounter Care Teams Insurance Examiner Relationship Specialty Start Date End Date Donny Cooper MD [address] [facility] [place] [address] PCP - General Family Medicine 02/25/19 documented as of this encounter
--- OUTSIDE RECORDS SUMMARY | 2024-03-15 08:02 | XMS_ITS | Encounter Summary ---
[place] [address] Care Team Providers Care Technology Advisor Name Role Phone Donny Cooper MD Primary Care Provider [phone] Encounter Details Date Type Department Care Team (Latest Contact Info) Description 07/07/2022 10:00 AM EST - 07/07/2022 11:59 PM EST Hospital Encounter Non-Invasive [place] [address] Discharge Disposition: Home Social History Tobacco Use [...] AM EST Hospital Encounter Non-Invasive [place] [address] Arrived documented as of this [...] filedocumented in this encounter Care Teams Technology Advisor Relationship Specialty Start Date End Date Donny Cooper MD [address] [place] [address] PCP - General Family Medicine 02/25/19 documented as of this encounter
--- OUTSIDE RECORDS SUMMARY | 2024-03-15 08:02 | XMS_ITS | Encounter Summary ---
[place] [address] Care Team Providers Care Ict Business Analyst Name Role Phone Marques Martinez MD Primary Care Provider [phone] Encounter Details Date Type Department Care Team (Late st Contact Info) Description 10/03/2010 [place] [address] Marina Orosco, JADON Social History Tobacco Use [facility] Hospital Encounter Non[place] [address] Arrived documented as of this encounter Visit Diagnoses Not on filedocumented in this encounter Care Teams Ict Business Analyst Relationship Specialty Start Date End Date Marques Martinez MD [address] [place] [address] PCP - General 04/01/10 04/08/11 documented as of this encounter
--- OUTSIDE RECORDS SUMMARY | 2024-03-15 08:02 | XMS_ITS | Clinical Summary ---
Author Organization [facility] [address] Care Team Providers Care Audit Associate Name Role Phone Donny Cooper MD Primary Care Provider [phone] [phone] Allergies No known active allergies Medications Medication [...] PM EDT Hospital Encounter Non-[place] [address] Discharge Disposition: Home 01/05/2024 Telephone Cardiology at [address] [address] Kanika Shell 12/28/2023 Notes Only Cardiology at [address] [address] Kanika Shell from Last 3 Months Immunizations [...] AM EST Hospital Encounter Non-[place] [address] Arrived Health Maintenance Due Date Last Done Comments Tetanus/Diphtheria/Pertussis Vaccines (1 - Tdap) 08/19/1959 Zoster vaccine (1 of 2) 1990 Advance Directive 08/19/1995 Pneumoccocal Vaccine: 65+ (2 of 2 - PCV) 05/04/2009 05/04/2008 Covid-19 Vaccine (1 - 2023- season) 2024 Influenza (Flu) vaccine (1 o f 1 - Influenza standard series) 01/03/2024 02/01/2010, 03/06/2006, 02/24/2005 Medical Devices Implanted Type Area Plastic Panel Installer Device Identifier Shelf Expiration Date Model / Serial / Lot Mdt : [id number] : [id number] Implanted: (Quantity not on file) Cardiac Resynchronization Therapy - Defibrillator Chest Medtronic - [id number] / [id number] / Care Teams Audit Associate Relationship Specialty Start Date End Date Donny Cooper MD [address] [place] [address] PCP - General Family Medicine 02/25/19
--- OUTSIDE RECORDS SUMMARY | 2024-03-15 08:02 | XMS_ITS | Encounter Summary ---
[facility] [place] [address] Care Team Providers Care Medical Accounts Receivable Specialist Name Role Phone Marques Martinez MD Primary Care Provider [phone] Encounter Details Date Type Department Care Team (Late st Contact Info) Description 03/30/2010 [place] [address] Javier Barajas MD [facility] [address] [place] [address] Social History Tobacco Use Types Packs/Day Years [...] Hospital Encounter Non-[place] [address] Arrived documented as of this encounter Procedures [...] AM EST Jairon Fenton MD [facility]MISTRY ORDERABLES [facility] * (ABNORMAL) CREATININE, SERUM (04/01/2010 6:09 AM [...] Fenton MD CHEMISTRY ORDERABLES Performing Organization Address [facility] de Phone Number CERNER CHRISTOSENNIUM * BUN (04/01/2010 6:09 AM EST) Blood Urea Nitrogen 12 10 - 20 mg/dL [facility] MILLENNIUM Blood specimen (specimen) 04/01/2010 6:09 AM EST 04/01/2010 6:09 AM EST Jairon Fenton MD CHEMISTRY ORDERABLES Performing Organization Address [facility] de Phone Number CERNER CHRISTOSENNIUM * (ABNORMAL) [...] MD HEMATOLOGY ORDERABLE S Performing Organization Address [facility] de Phone Number CERIVIS MILLENNIUM * HEPATIC [...] Fenton MD CHEMISTRY ORDERABLES Performing Organization Address [facility] Phone Number CERIVIS MILLENNIUM * ELECTROLYTE [...] Fenton MD CHEMISTRY ORDERABLES Performing Organization Address [facility] Co de Phone Number CERIVIS MILLENNIUM * CREATININE, SERUM (03/30/2010 6:05 PM EST) Creatinine 0.87 0.80 - 1.50 mg/dL [facility] Est Glomerular Filtration Rate >60 >=60 [facility] Comment: The National Kidney [...] Urea Nitrogen 18 10 - 20 mg/dL [facility] Blood specimen (specimen) 03/30/2010 6:05 PM EST 03/30/2010 6:13 PM EST Jairon Fenton MD CHEMISTRY ORDERABLES Performing Organization Address [facility] de Phone Number DEJA MOSQUEDAIUM * APTT (03/30/2010 6:05 PM EST) Partial Thromboplastin Time 26 25 - 37 sec [facility]ERNER MILLENNIUM Comment: Recommended therapeutic PTT range for full dose unfractionated heparin is 80-114 seconds. Blood specimen (specimen) 03/30/2010 6:05 PM EST 03/30/2010 6:14 PM EST Jairon Fenton MD HEMATOLOGY ORDERABLE S Performing Organization Address [facility] Phone Number DEJA SEGOVIA * PROTIME-INR (03/30/2010 6:05 PM EST) Prothrombin Time 14.2 12.3 - 14.7 sec [facility] MOSQU[facility] Comment: [facility] Transfusion Committee Guidelines: INR less than 2.0, PTT less than OR equal to 43.5 seconds, or Fibrinogen greater than or equal to 100 mg/dl indicate adequate procoagulant activity for hemostasis in patients without underlying bleeding disorders. International Normalization Ratio 1.1 0.9 - 1.1 [facility] Blood specimen (specimen) 03/30/2010 6:05 PM EST 03/30/2010 6:14 PM EST Jairon Fenton MD HEMATOLOGY ORDERABLE S Performing Organization Address [facility] de [...] Standard Deviation 44.2 35.0 - 46.0 fL [facility] RDW coefficient of variation 13.1 10.9 - 14.4 % [facility] Mean Platelet Volume 10.6 9.0 - 12.0 fL [facility] Blood specimen (specimen) 03/30/2010 6:05 PM EST 03/30/2010 6:13 PM EST Jairon Fenton MD HEMATOLOGY ORDERABLE S Performing Organization Address [facility] Co de Phone Number [facility] * REFLEX LAB-ANTIBODY SCREEN (03/30/2010 3:17 PM EST) [facility] Ab Screen Interp Negative [facility] Expires at [id number] on: [id number] [facility] Blood specimen (specimen) 03/30/2010 3:17 PM EST 03/30/2010 3:17 PM EST Javier Barajas MD BLOOD BANK LAB ORDER PRECIOUS Performing Organization Address [facility] Co de Phone Number [facility] * REFLEX LAB-ABO/RH (03/30/2010 3:17 PM EST) [facility] ABORH Type A Pos [facility] Blood specimen (specimen) 03/30/2010 3:17 PM EST 03/30/2010 3:17 PM EST Javier Barajas MD BLOOD BANK LAB ORDER PRECIOUS Performing Organization Address [facility] Co de Phone Number [facility] * ELECTROLYTE PANEL (03/30/2010 2:50 PM EST) [facility] Sodium 135 135 - 145 mmol/L [facility] Potassium 4.3 3.5 - 5.0 mmol/L [facility] Comment: Please note: ??Patients with WBC [...] PM EST Javier Barajas MD CHEMISTRY ORDERABLES [facility] * CREATININE, SERUM (03/30/2010 [...] Barajas MD CHEMISTRY ORDERABLES Performing Organization Address [facility] Phone Number [facility] * BUN (03/30/2010 2:50 PM EST) Blood Urea Nitrogen 18 10 - 20 mg/dL [facility] Blood specimen (specimen) 03/30/2010 2:50 PM EST 03/30/2010 3:05 PM EST Javier Barajas MD CHEMISTRY ORDERABLES Performing Organization Address [facility] Phone Number [facility] * GLUCOSE, RANDOM (03/30/2010 2:50 PM EST) Glucose 95 <=199 mg/dL [facility] Comment:Diabetes: >=200 mg/d L plus symptoms Blood specimen (specimen) 03/30/2010 2:50 PM EST 03/30/2010 3:05 PM EST Javier Barajas MD CHEMISTRY ORDERABLES Performing Organization Address [facility] Phone Number [facility] * APTT (03/30/2010 2:50 PM EST) Partial Thromboplastin Time 25 25 - 37 sec [facility] Comment: Recommended therapeutic PTT range for full dose unfractionated heparin is 80-114 seconds. Blood specimen (specimen) 03/30/2010 2:50 PM EST 03/30/2010 3:06 PM EST Javier Barajas MD HEMATOLOGY ORDERABLE S Performing Organization Address [facility] Phone Number [facility] * PROTIME-INR (03/30/2010 2:50 PM EST) Prothrombin Time 14.1 12.3 - 14.7 sec [facility] Comment: [facility] Transfusion Committee Guidelines: INR less [...] filedocumented in this encounter Care Teams Medical Accounts Receivable Specialist Relationship Specialty Start Date End Date Marques Martinez MD [address] [place] [address] PCP - General 04/01/10 04/08/11 documented as of this encounter
[2024-03-15 08:07] VITALS: BP 134/63; PULSE 74
--- OUTSIDE RECORDS SUMMARY | 2024-03-17 08:59 | XMS_ITS | Clinical Summary ---
Author Organization [facility] Address [address] [place] [address] Care Team Providers Care Sales Agent Pest Control Service Name Role Phone Clem Olvera MD Primary Care Provider [phone] Allergies No known active allergies Medications atorvastatin [...] 05/04/2002 - 05/03/20032013 second pacemaker [facility] Medical History Medical History Date Comments [...] 2024 [place] [id number] Advance Directives For more information, please contact: [phone] * Full Code (Latest Code Status on File) Date Activated Date Inactivated Comments 02/27/2016 8:49 02/28/2016 15:40 Question Answer Comments Reason for decision includes: Full code consistent with overall plan of care Who participated in the discussion? Not Discusse d Care Teams Sales Agent Pest Control Service Relationship Specialty Start Date End Date Clem Olvera MD [address] [place] [address] PCP - General 12/18/15
--- OUTSIDE RECORDS SUMMARY | 2024-03-17 08:59 | XMS_ITS | Referral Summary ---
Author Organization [facility] Address [address] [place] [address] Care Team Providers Care Dumb Waiter Operator Name Role Phone Clem Olvera MD Primary Care Provider [phone] Allergies No known active allergies Medications atorvastatin [...] Advance Directives For more information, please contact: [phone] * Full Code (Latest Code Status on File) Date Activated Date Inactivated Comments 02/27/2016 8:49 02/28/2016 15:40 Question Answer Comments Reason for decision includes: Full code consistent with overall plan of care Who participated in the discussion? Not Discusse d Care Teams Dumb Waiter Operator Relationship Specialty Start Date End Date Clem Olvera MD [address] [place] [address] PCP - General 12/18/15
--- OUTSIDE RECORDS SUMMARY | 2024-03-17 08:59 | XMS_ITS | Encounter Summary ---
Author Organization [facility] Address [address] [place] [address] Care Team Providers Care Sales And Marketing Executive Name Role Phone Clem Olvera MD Primary Care Provider [phone] Encounter Details Date Type Department Care Team (Late st Contact Info) Description 03/16/2019 Abstract [facility] [address] [place] [address] Ronal Avelar RN AV block, 2nd degree [...] Laterality Modality Device Narrative 03/24/2019 10:30 EST [facility] Card[facility] Device Visit Manufacturing Scheduler: N12 Technologiestronic Device Type: HAIR AND MAKEUP DESIGNER-D Service: Remote ? 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
--- OUTSIDE RECORDS SUMMARY | 2024-03-17 08:59 | XMS_ITS | Encounter Summary ---
[place] [address] Care Team Providers Care Broaching Machine Repairer Name Role Phone Donny Cooper MD Primary Care Provider [phone] Encounter Details Date Type Department Care Team (Latest Contact Info) Description 10/05/2022 10:00 AM EDT - 10/05/2022 11:59 PM EDT Hospital Encounter Non-Invasive [place] [address] Discharge Disposition: Home Social History Tobacco Use [facility] En[facility] Non-Invasive [place] [address] Arrived documented as of [...] on filedocumented in this encounter Care Teams Broaching Machine Repairer Relationship Specialty Start Date End Date Donny Cooper MD [address] [place] [address] PCP - General Family Medicine 02/25/19 documented as of this encounter
--- OUTSIDE RECORDS SUMMARY | 2024-03-17 08:59 | XMS_ITS | Encounter Summary ---
Author Organization [facility] Address [address] [place] [address] Care Team Providers Care Biology Teacher Name Role Phone Clem Olvera MD Primary Care Provider [phone] Reason for Referral * (Routine) - Closed [...] [facility] at or , extension [phone]. For any scheduling of appointments, please call [phone] or , extension [phone]. . * (Routine) - Closed Specialty Diagnoses [...] Expiration Date V isits Requested Visits Authorized [id number] Closed Specialty Services Required 02/27/2016 1 1 [...] [facility] at [address] [facility] in [place] -Clinics are also held in [facility], [place], [place] and [facility]. If you live in those areas, we will make arrangements for follow-up appointments in one of those clinics.. Encounter Details Date Type Department Care Team (Late st Contact Info) Description 02/27/2016 6:30 EDT - 02/28/2016 13:39 EDT Hospital Encounter [facility] Cardiac/Telemetry Unit [address] [place] [address] Gulshan Drummond MD PhD [address] [facility], Level [address] [place] [phone] Gulshan Montoya Sa, MD [address] [facility] [address] [place] [phone] AICD lead malfunction, subsequent encounter; ICD [...] EF of 20-25% status post silent inferior ID in the early . 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 He had heart failure symptoms that started around May 2013, when he was in [place], [place]. This triggered major cardiac workup including [...] then underwent a device upgrade to a APPRAISER OIL AND WATER-D device with biventricular pacing for his EF [...] in cardiology outreach clinic at [facility] in [place]. Continued high pacing threshold on the epicardial [...] and plans to follow up with his Field Sales Trainer in [place] in 6-8 weeks for which [...] HGBA1C Discharge Follow Up Appointments Scheduled with [facility] Appointments Outside of [facility] We Will Schedule Studies We Will Schedule Appointments We Recommend but have not been Scheduled Beatrice De La Garza NP 02/27/2016 10:59 Cosigned by Gulshan Montoya Sa, MD at 02/28/2016 15:19 EDT Associated attestation - Gulshan Montoya Sa, MD - 02/28/2016 0689 EDT Attending Attestation: I saw and evaluated the patient. I discussed the case with the resident/COUNTY ATTORNEY/fellow and agree with the findings and plan [...] Notes * Lou Alfonso, JADON - 02/28/2016 9407 EDT Pt awaiting discharge. IV and tele [...] agree to review this medication with his cutter plastics rolls and plans to remain on his home [...] and neighbors. Patient has Medicare and [facility]. Pharmacy is [facility] in [facility]. No needs identified at time of discharge. will provide transportation. Beatrice Rodriguez RN Case Manager #[phone] documented in this encounter H&P Notes * Navdeep Hurd MD - 02/27/2016 0830 EDT Cardiology Admitting H&P Admit Date: 02/27/2016 Date of Service: 02/27/2016 PCP: Clem Olvera Code Status: Full Code Chief Complaint: FINN, device battery depletion, high pacing threshold on epicardial lead HPI: 74-year-old man with coronary artery disease and ischemic cardiomyopathy status post silent inferior ID in the early . 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 He had heart failure symptoms that started around May 2013, when he was in [place], [place]. This triggered major cardiac workup including [...] point, his device was upgraded to a APPRAISER OIL AND WATER-D device with biventricular pacing. By the patient's [...] in cardiology outreach clinic at [facility] in [place]. Continued high pacing threshold on the epicardial LV lead has caused a very rapid battery depletion. Dr. David Adams in [place] recommended against lead extraction and reimplant as [...] ??? Pacemaker insertion 2002 [facility] Social History Family History Social History Substance Use Topics ??? Smoking status: Former Smoker Years: 35.00 Quit date: 1989 ??? Smokeless tobacco: Not on file ??? Alcohol use 6.6 oz/week 6 Cans of beer, 5 Glasses of wine per week , lives with , retired. Spends leong in [place]. Spends the chery in [place], [place]. Quit smoking in 1990. Has 2 [...] and ischemic cardiomyopathy status post silent inferior ID in the early . Also diagnosed with [...] point, his device was upgraded to a APPRAISER OIL AND WATER-D device with biventricular pacing with a surgically [...] Care - Mady Bruno RN - 02/27/2016 0970 EDT Problem: Daily Care Plan Goals Goal: [...] 03/12/2016 12:4 3 EST us Scan 2 Aggregate Conveyor Operator PROCEDURE/MINOR SURGICAL OR DERABLES Final Result * ECG REPORT - SCANNED (03/04/2016 14:06 EDT) 03/04/2016 14:0 6 EDT us Scan 2 Aggregate Conveyor Operator PROCEDURE/MINOR SURGICAL OR DERABLES Final Result * ECG REPORT - SCANNED (03/04/2016 14:06 EDT) 03/04/2016 14:0 6 EDT us Scan 2 Aggregate Conveyor Operator PROCEDURE/MINOR SURGICAL OR DERABLES Final Result * IMPLANT RECORD - SCANNED (03/04/2016 14:06 EDT) 03/04/2016 14:0 6 EDT us Scan 2 Aggregate Conveyor Operator PROCEDURE/MINOR SURGICAL OR DERABLES Final Result * ECG REPORT - SCANNED (03/01/2016 8:58 EDT) 03/01/2016 8:58 EDT us Scan 2 Aggregate Conveyor Operator PROCEDURE/MINOR SURGICAL OR DERABLES Final Result * ECG REPORT - SCANNED (03/01/2016 8:58 EDT) 03/01/2016 8:58 EDT us Scan 2 Aggregate Conveyor Operator PROCEDURE/MINOR SURGICAL OR DERABLES Final Result * [...] 9.84 4.0 - 10.4 K/cmm 02/28/2016 6:26 [facility] RBC 4.42 4.36 - 5.78 M/cmm 02/28/2016 6:26 [facility] Hemoglobin 14.2 13.8 - 17.3 gm/dl 02/28/2016 6:26 [facility] HCT 40.9 39.5 - 50.2 % 02/28/2016 6:26 [facility] MCV 93 81 - 95 fl 02/28/2016 6:26 [facility] MCH 32.1 27.6 - 33.0 pg 02/28/2016 6:26 [facility] MCHC 34.7 32.8 - 36.4 gm/dl 02/28/2016 6:26 [facility] RDW-CV 13.1 11.8 - 14.1 % 02/28/2016 6:26 EDT [facility] RDW-SD 44.6 36.5 - 45.9 fl 02/28/2016 6:26 EDT [facility] PLT 151 141 - 377 K/cmm 02/28/2016 6:26 EDT [facility] MPV 11.2 9.5 - 12.7 fl 02/28/2016 6:26 EDT [facility] Blood specimen (specimen) BLOOD SPECIMEN / Unknown 02/28/2016 5:44 EDT 02/28/2016 6:13 EDT Beatrice De La Garza COUNTY ATTORNEY HEMATOLOGY & PF4 ORDE RABLES Final Result Performing Organization Address City/[facility] Co de Phone Number [facility] [address] [place] [address] * (ABNORMAL) CREATININE (02/28/2016 5:44 EDT) Creatinine 0.65(L) 0.66 - 1.25 mg/dl 02/28/2016 6:48 EDT [facility] GFR, Calculated 95 >60 ml/min/1.7 3m2 02/28/2016 6:48 EDT [facility] Comment: eGFR calculated using CKD-EPI equation for non Americans. Multiply eGFR by 1.16 for Americans. Blood specimen (specimen) BLOOD SPECIMEN / Unknown 02/28/2016 5:44 EDT 02/28/2016 6:13 EDT Beatrice De La Garza NP CHEMISTRY & BLOOD GAS ORDERABLES Final Result Performing Organization Address City/[facility]/ZIP Co de Phone Number [facility] [address] [place] [address] * BUN (02/28/2016 5:44 EDT) BUN 14 10 - 26 mg/dl 02/28/2016 6:48 EDT [facility] Blood specimen (specimen) BLOOD SPECIMEN / Unknown 02/28/2016 5:44 EDT 02/28/2016 6:13 EDT Beatrice De La Garza COUNTY ATTORNEY CHEMISTRY & BLOOD GAS ORDERABLES Final Result Performing Organization Address [facility] Co de Phone Number [facility] [address] [place] [address] * ELECTROLYTES (02/28/2016 5:44 EDT) Sodium 138 136 - 145 mEq/L 02/28/2016 6:48 EDT [facility] Potassium 4.7 3.5 - 5.0 mEq/L 02/28/2016 6:48 EDT [facility] Chloride 104 96 - 110 mEq/L 02/28/2016 6:48 EDT [facility] CO2 25 22 - 32 mEq/L 02/28/2016 6:48 EDT [facility] Comment:Note new reference r hong 02/19/16 Blood specimen (specimen) BLOOD SPECIMEN / Unknown 02/28/2016 5:44 EDT 02/28/2016 6:13 EDT Result [facility] Beatrice De La Garza NP CHEMISTRY & BLOOD GAS ORDERABLES Final Result Performing Organization Address [facility] Co de Phone Number [facility] [address] [place] [address] * PORTABLE CHEST 1 VIEW (02/27/2016 12:46 [...] 12:41 EDT) 02/27/2016 12:4 1 EDT Narrative [facility] EKG - 02/28/2016 8:57 EDT ? [facility] ? Test Date: ?2016-02-27 Pat Name: ? NABIL IGLESIAS ? Department: ?? HERN[address] 5 ? Room: ? MW514 Gender: ? M ?Service Trainer: ?? [id number] : ?1940 ? Requested By: KAIN Gallagher Order Number: [id number] ? Julia WRIGHT: ?? BRAYAN CUENCA MD ? Measurements Intervals ?[place] ? Rate: ? 63 ? P: ?15 [...] Date: 2016-02-27 Pat Name: NABIL IGLESIAS Department: [place] [address] Room: [facility] Gender: M Service Trainer: [id number] : 1940 Requested By: KAIN Gallagher Order Number: [id number] Reading MD: BRAYAN CUENCA MD Measurements Intervals [place] Rate: 63 P: 15 WY: 159 QRS: [...] OR DERABLES Final Result Performing Organization Address [facility] Co de Phone Number [facility] EKG * PROTIME (02/27/2016 8:45 EDT) Pro Time 12.3 10.3 - 13.1 secs 02/27/2016 9:10 EDT [facility] Comment: New prothrombin t josue range effective 01/29/16 I.N.R. 1.1 0.9 - 1.1 Ratio 02/27/2016 9:10 EDT [facility] Comment: Moderate Intensity Coumadin INR = 2.0-3.0 Adjustments in anticoagulant therapy dose should be based upon the INR and NOT the Pro Time. Blood specimen (specimen) BLOOD SPECIMEN / Unknown 02/27/2016 8:45 EDT 02/27/2016 8:54 EDT us Gulshan Drummond MD PhD HEMATOLOGY & P F4 ORDERABLES Final Result Performing Organization Address [facility] Co de Phone Number [facility] [address] [place] [address] * HEMAGRAM (02/27/2016 8:45 EDT) WBC 6.47 4.0 - 10.4 K/cmm 02/27/2016 8:57 EDT [facility] RBC 4.51 4.36 - 5.78 M/cmm 02/27/2016 8:57 T [facility] Hemoglobin 14.7 13.8 - 17.3 gm/dl 02/27/2016 8:57 EDT [facility] HCT 41.7 39.5 - 50.2 % 02/27/2016 8:57 EDT [facility] MCV 93 81 - 95 fl 02/27/2016 8:57 EDT [facility] MCH 32.6 27.6 - 33.0 pg 02/27/2016 8:57 EDT [facility] MCHC 35.3 32.8 - 36.4 gm/dl 02/27/2016 8:57 EDT [facility] RDW-CV 13.1 11.8 - 14.1 % 02/27/2016 8:57 EDT [facility] RDW-SD 44.0 36.5 - 45.9 fl 02/27/2016 8:57 EDT [facility] PLT 176 141 - 377 K/cmm 02/27/2016 8:57 EDT [facility] MPV 10.7 9.5 - 12.7 fl 02/27/2016 8:57 EDT [facility] Blood specimen (specimen) BLOOD SPECIMEN / Unknown 02/27/2016 8:45 EDT 02/27/2016 8:54 EDT us Gulshan Drummond MD PhD HEMATOLOGY & P F4 ORDERABLES Final Result Performing Organization Address City/[facility] Co de Phone Number [facility] [address] [place] [address] * ELECTROLYTES (02/27/2016 8:45 EDT) Sodium 142 136 - 145 mEq/L 02/27/2016 9:13 T [facility] Potassium 4.7 3.5 - 5.0 mEq/L 02/27/2016 9:13 T [facility] Chloride 103 96 - 110 mEq/L 02/27/2016 9:13 EDT [facility] CO2 27 22 - 32 mEq/L 02/27/2016 9:13 T [facility] Comment:Note new reference r hong 02/19/16 Blood specimen (specimen) BLOOD SPECIMEN / Unknown 02/27/2016 8:45 EDT 02/27/2016 8:54 EDT us Gulshan Drummond MD PhD CHEMISTRY & BL OOD GAS ORDERABLES Final Result Performing Organization Address City/[facility]/ZIP Co de Phone Number [facility] [address] [place] [address] * CREATININE (02/27/2016 8:45 EDT) Creatinine 0.69 0.66 - 1.25 mg/dl 02/27/2016 9:13 EDT [facility] GFR, Calculated 93 >60 ml/min/1.7 3m2 02/27/2016 9:13 EDT [facility] Comment: eGFR calculated using CKD-EPI equation for non Americans. Multiply eGFR by 1.16 for Americans. Blood specimen (specimen) BLOOD SPECIMEN / Unknown 02/27/2016 8:45 EDT 02/27/2016 8:54 EDT us Gulshan Drummond MD PhD CHEMISTRY & BL OOD GAS ORDERABLES Final Result Performing Organization Address City/[facility] Co de Phone Number [facility] [address] [place] [address] * BUN (02/27/2016 8:45 EDT) BUN 17 10 - 26 mg/dl 02/27/2016 9:13 EDT [facility] Blood specimen (specimen) BLOOD SPECIMEN / Unknown 02/27/2016 8:45 EDT 02/27/2016 8:54 EDT us Gulshan Drummond MD PhD CHEMISTRY & BL OOD GAS ORDERABLES Final Result Performing Organization Address City/[facility] Co de Phone Number [facility] [address] [place] [address] * EKG 12-LEAD (02/27/2016 8:08 EDT) 02/27/2016 8:08 EDT Narrative [facility] EKG - 02/28/2016 9:01 EDT ? [facility] ? Test Date: ?2016-02-27 Pat Name: ? NABIL IGLESIAS ? Department: ?? PeriopMain[facility] ? Room: ? DE7065 Gender: ? M ?Service Trainer: ?? [id number] : ?1940 ? Requested By: MARCIA Boo Order Number: [id number] ? Reading MD: ?? BRAYAN CUENCA MD ? Measurements Intervals ?[place] ? Rate: ? 69 ? P: ?147 [...] Pat Name: NABIL IGLESIAS Department: Periop[facility] Room: KE0710 Gender: M Service Trainer: [id number] : 1940 Requested By: MARCIA Boo Order Number: [id number] Reading MD: BRAYAN CUENCA MD Measurements Intervals [place] Rate: 69 P: 147 WY: 134 QRS: -67 QRSD: 160 T: -59 QT: 434 QTc: 467 Interpretive Statements ELECTRONIC ATRIAL PACEMAKER ELECTRONIC VENTRICULAR PACEMAKER Compared to ECG 02/27/2016 08:08:46 No significant changes I reviewed the tracing and have either agreed or edited the findings inthis report. Electronically Signed On 02-28-16 09:01:04 EDT by BRAYAN BEEBE. Navdeep Hurd MD CARDIAC ECG ORDERABLES Final Result [facility] EKG documented in this encounter Visit Diagnoses [...] Other - Comment: pt already took SHIPPING TEAM LEADER, takes other meds at HS) 921 (Given [...] morning at home) 921 (Given - Provider: ySdnee Gallagher RN) lisinopril (PRINIVIL, ZESTRIL) tablet 2.5 mg 2.5 mg, oral, DAILY, First dose on Thu02/27/16 at 1245, Until Discontinued, Routine 1306 (Not Given - Provider: Nneka Stuart RN - Reason: Other - Comment: pt already took SHIPPING TEAM LEADER, takes other meds at HS)210 (Given - Provider: Mady Bruno, JADON) spironolactone (ALDACTONE) tablet 12.5 mg 12.5 mg, oral, DAILY, First dose on Thu02/27/16 at 1245, Until Discontinued, Routine 1306 (Not Given - Provider: Nneka Stuart RN - Reason: Other - Comment: pt already took SHIPPING TEAM LEADER, takes other meds at HS)210 (Given - Provider: Mady Bruno RN) tamsulosin (FLOMAX) capsule 0.4 mg 0.4 mg, oral, DAILY, First dose on Thu02/27/16 at 1245, Until Discontinued, Routine 1306 (Not Given - Provider: Nneka Stuart RN - Reason: Other - Comment: pt already took SHIPPING TEAM LEADER, takes other meds at HS) 09 (Given [...] 02/02 documented in this encounter Care Teams Biology Teacher Relationship Specialty Start Date End Date Clem Olvera MD [address] [place] [address] PCP - General 12/18/15 documented as of this encounter
--- OUTSIDE RECORDS SUMMARY | 2024-03-17 08:59 | XMS_ITS | Encounter Summary ---
[place] [address] Care Team Providers Care Motor Vehicle Licence Examiner Name Role Phone Donny Cooper MD Primary Care Provider [phone] Encounter Details Date Type Department Care Team (Latest Contact Info) Description 11/04/2023 10:00 AM EDT - 11/04/2023 11:59 PM EDT Hospital Encounter Non[place] [address] Discharge Disposition: Home Social History Tobacco Use [facility] Non[place] [address] Arrived documented as of this [...] on filedocumented in this encounter Care Teams Motor Vehicle Licence Examiner Relationship Specialty Start Date End Date Donny Cooper MD [address] [place] [address] PCP - General Family Medicine 02/25/19 documented as of this encounter
--- OUTSIDE RECORDS SUMMARY | 2024-03-17 08:59 | XMS_ITS | Encounter Summary ---
[place] [address] Care Team Providers Care Stockbroker Name Role Phone Donny Cooper MD Primary Care Provider [phone] Encounter Details Date Type Department Care Team (Latest Contact Info) Description 01/03/2023 10:00 AM EDT - 01/03/2023 11:59 PM EDT Hospital Encounter [place] [address] Discharge Disposition: Home Social History Tobacco Use [facility] [place] [address] Arrived documented as of this [...] on filedocumented in this encounter Care Teams Stockbroker Relationship Specialty Start Date End Date Donny Cooper MD [address] [place] [address] PCP - General Family Medicine 02/25/19 documented as of this encounter
--- OUTSIDE RECORDS SUMMARY | 2024-03-17 08:59 | XMS_ITS | Encounter Summary ---
[place] [address] Care Team Providers Care Fiber Technologist Name Role Phone Donny Cooper MD Primary Care Provider [phone] Encounter Details Date Type Department Care Team (Latest Contact Info) Description 07/02/2023 10:00 AM EST - 07/02/2023 11:59 PM EST Hospital Encounter [place] [address] Discharge Disposition: Home Social History Tobacco Use [...] [facility] Encounter [place] [address] Arrived documented as of this encounter Visit Diagnoses Not on filedocumented in this encounter Care Teams Fiber Technologist Relationship Specialty Start Date End Date Donny Cooper MD [address] [place] [address] PCP - General Family Medicine 02/25/19 documented as of this encounter
--- OUTSIDE RECORDS SUMMARY | 2024-03-17 08:59 | XMS_ITS | Encounter Summary ---
Author Organization [facility] Address [address] [place] [address] Care Team Providers Care Wrapper Stripper Name Role Phone Unavailable Primary Care Provider Unavailabl e Encounter Details Date Type Department Care Team (Late st Contact Info) Description 05/06/2001 Results Only [facility] [address] [place] [address] Hernandez Partida MD [address] [place] [phone] Social History Tobacco Use Types Packs/Day Years [...] is submitted entirely in cassette (B). ??(Naty Caal)/[facility] End of Report [facility] 05/06/2001 05/07/2001 9:2 5 EST us Hernandez Partida MD PATHOLOGY ORDERABLES Final Res ult [facility] [address] [place] [address] documented in this encounter Visit Diagnoses Not on filedocumented in this encounter
--- OUTSIDE RECORDS SUMMARY | 2024-03-17 08:59 | XMS_ITS | Encounter Summary ---
[place] [address] Care Team Providers Care Manager Event Name Role Phone Donny Cooper MD Primary Care Provider [phone] Encounter Details Date Type Department Care Team (Late st Contact Info) Description 12/28/2023 Notes Only Cardiology at [address] [phone] [place]ika Shell Social History Tobacco Use Types [...] [facility] Hospital Encounter [place] [address] Arrived documented as of this encounter Visit Diagnoses Not on filedocumented in this encounter Care Teams Manager Event Relationship Specialty Start Date End Date Donny Cooper MD [address] [place] [address] PCP - General Family Medicine 02/25/19 documented as of this encounter
--- OUTSIDE RECORDS SUMMARY | 2024-03-17 08:59 | XMS_ITS | Encounter Summary ---
Author Organization [facility] Address [address] [place] [address] Care Team Providers Care Golf Starter And Ranger Name Role Phone Unavailable Primary Care Provider Unavailabl e Encounter Details Date Type Department Care Team (Late st Contact Info) Description 12/02/2012 Results Only [facility] ([facility]) [address] [place] [id number] Satinder Edwards MD [address] [place] [id number] Social History Tobacco Use Types Packs/Day Years [...] Name: ? ABDIAZIZCHARMAINE ? Accession #: ? [id number] ? : ? 1940 (Age: 72) ??M [...] ORDERABLES Final Result [facility] [address] [place] [address] documented in this encounter Visit Diagnoses Not on filedocumented in this encounter
--- OUTSIDE RECORDS SUMMARY | 2024-03-17 08:59 | XMS_ITS | Clinical Summary ---
Author Organization [facility] [place] [address] Care Team Providers Care [employer] Repairer Name Role Phone Donny Cooper MD Primary Care Provider [phone] Allergies No known active allergies Medications Medication [...] PM EDT Hospital Encounter Non-[place] [address] Discharge Disposition: Home 01/05/2024 Telephone Cardiology at [address] [address] Kanika Shell 12/28/2023 Notes Only Cardiology at [address] [address] Kanika Shell from Last 3 Months Immunizations [...] AM EST Hospital Encounter Non-[place] [phone] Arrived Health Maintenance Due Date Last Done Comments Tetanus/Diphtheria/Pertussis Vaccines (1 - Tdap) 08/19/1959 Zoster vaccine (1 of 2) 1990 Advance Directive 08/19/1995 Pneumoccocal Vaccine: 65+ (2 of 2 - PCV) 05/04/2009 05/04/2008 Covid-19 Vaccine (1 - 2023- season) 2024 Influenza (Flu) vaccine (1 o f 1 - Influenza standard series) 01/03/2024 02/01/2010, 03/06/2006, 02/24/2005 Medical Devices Implanted Type Area Remote Sensing Program Manager Device Identifier Shelf Expiration Date Model / Serial / Lot Mdt : [id number] : [id number] Implanted: (Quantity not on file) Cardiac Resynchronization Therapy - Defibrillator Chest [employer]tronic - [id number] / [id number] / Care Teams [employer] Repairer Relationship Specialty Start Date End Date Donny Cooper MD [address] [place] [address] PCP - General Family Medicine 02/25/19
--- OUTSIDE RECORDS SUMMARY | 2024-03-17 08:59 | XMS_ITS | Encounter Summary ---
[place] [address] Care Team Providers Care Professor Of Art History Name Role Phone Donny Cooper MD Primary Care Provider [phone] Encounter Details Date Type Department Care Team [...] [facility] Hospital Encounter Non-Invasive [place] [address] Arrived documented as of this encounter Visit Diagnoses Not on filedocumented in this encounter Care Teams Professor Of Art History Relationship Specialty Start Date End Date Donny Cooper MD [address] [place] [address] PCP - General Family Medicine 02/25/19 documented as of this encounter
--- OUTSIDE RECORDS SUMMARY | 2024-03-17 08:59 | XMS_ITS | Encounter Summary ---
Author Organization [facility] Address [address] [place] [address] Care Team Providers Care Sew On Operator Name Role Phone Clem Olvera MD Primary Care Provider [phone] Reason for Referral * Cardiology (3 - [...] Expiration Date Visits Re quested Visits Authorized [id number] Closed 02/13/2016 1 1 Encounter Details Date Type Department Care Team (Latest Contact Info) Description 02/13/2016 Pre-Procedure Orders Encounter [facility] [address] [place], [place] [address] Navdeep Hurd MD [address] [place] [address] [id number] ICD (implantable cardioverter-defibril lator) battery depletion (Primary [...] EDT Narrative 02/27/2016 15:17 EDT *Cardiology* [address] [place] [address] Lead Revision (Report amended ) Patient: Nabil Iglesias ?Study Date: ?02/27/2016 ? Accession #: ? [id number] : ? 1940 Referring: Clem Olvera Attending: [...] 0.35 glide wire a Nick MENDOZAW 6F ([facility]) 6 mm-40 mm balloon dilation still could [...] Venograms were performed in the MOORE and WELSH projections and a suitable mid-lateral LV branch [...] fascia. The leads were connected to a AMMONIA BOX TENDER-D device. Device and Lead detail in table [...] Implanted device: Medtronic - Viva Quad XT AMMONIA BOX TENDER-D DF4 - Serial number: [id number] Explanted device: Medtronic - Viva XT AMMONIA BOX TENDER-D DF4 - Serial number: [id number]. LEAD PARAMETERS + + + + + [...] ? Medtronic ? Enpath ? information ?? [id number] ? 6969M ? Attain ? Epicardial ? Performa 4298 ? + + + + + + Serial number [id number] ? [id number] ?? [id number] ?? [id number] ? + + + + [...] Note Gulshan Drummond MD - 05/12/2016 *Cardiology* [address] [place] [address] Lead Revision (Report amended ) Patient: Nabil [...] therefore over an 0.35 glide wire a Abell OTW 6F ([facility]) 6 mm-40 mm balloon dilation still could [...] Venograms were performed in the MOORE and WELSH projections and a suitable mid-lateral LV branch [...] fascia. The leads were connected to a AMMONIA BOX TENDER-D device. Device and Lead detail in table [...] topical skin adhesive. IMPLANTED HARDWARE: Implanted device: [employer] - Viva Quad XT AMMONIA BOX TENDER-D DF4 - Serial number: [id number] Explanted device: Medtronic - Viva XT AMMONIA BOX TENDER-D DF4 - Serial number: [id number]. LEAD PARAMETERS + + + + + [...] + + + + + Serial number [id number] + + + + + + [...] situ documented in this encounter Care Teams Sew On Operator Relationship Specialty Start Date End Date Clem Olvera MD [address] [place] [address] PCP - General 12/18/15 documented as of this encounter
--- OUTSIDE RECORDS SUMMARY | 2024-03-17 08:59 | XMS_ITS | Encounter Summary ---
Author Organization [facility] Address [address] [place] [address] Care Team Providers Care Capsule Inspector Name Role Phone Clem Olvera MD Primary Care Provider [phone] Reason for Visit * Reason Onset Date Comments Other 04/04/2019 Transfer request for Pacer Care at [facility] Encounter Details Date Type Department Care Team (Late st Contact Info) Description 04/04/2019 Telephone [facility] Cardiology Clinic [address] [place] [address] Giselle Hill, MEAT SUPERVISOR Other (Transfer request for Pacer Care at [facility]) Social History Tobacco Use Types Packs/Day Years [...] 04/04/2019 1503 EST I went into the [employer] Website and released pt to [facility] Pacer Clinic as requested. * Telephone Encounter - Suze Reynoso - 04/04/2019 1342 EST PT WILL BE HAVING HIS PACER CARE DONE AT [facility], PLEASE RELEASE HIS REMOTE MONITORING SO THAT THEY CAN PICK IT UP documented in this encounter Plan of Treatment Not on file documented as of this encounter Visit Diagnoses Not on filedocumented in this encounter Care Teams Capsule Inspector Relationship Specialty Start Date End Date Clem Olvera MD [address] [place] [address] PCP - General 12/18/15 documented as of this encounter
--- OUTSIDE RECORDS SUMMARY | 2024-03-17 08:59 | XMS_ITS | Encounter Summary ---
[place] [address] Care Team Providers Care Auto Body Mechanic Apprentice Name Role Phone Donny Cooper MD Primary Care Provider [phone] Encounter Details Date Type Department Care Team (Latest Contact Info) Description 04/03/2023 10:00 AM EST - 04/03/2023 11:59 PM [facility] Hospital Encounter Non-Invasive [place] [address] Discharge Disposition: Home Social History Tobacco Use [...] HOSPITAL Hospital Encounter Non-Invasive [place] [address] Arrived documented as of this [...] in this encounter Care Teams Auto Body Mechanic Apprentice Relationship Specialty Start Date End Date Donny Cooper MD [address] [place] [address] PCP - General Family Medicine 02/25/19 documented as of this encounter
--- OUTSIDE RECORDS SUMMARY | 2024-03-17 08:59 | XMS_ITS | Encounter Summary ---
Author Organization [facility] Address [address] [place] [address] Care Team Providers Care Perlite Grinder Name Role Phone Clem Olvera MD Primary Care Provider [phone] Encounter Details Date Type Department Care Team (Latest Contact Info) Description 12/20/2015 10:52 EDT - 12/20/2015 23:52 EDT Hospital Encounter [facility] Cardiovascular Unit [address] [place] [address] Navdeep Hurd MD [address] [place] [address] [address] Discharge Disposition: Home or Self [...] no need to beNPO or have a pizza delivery driver. However, his will be accompanying him. They are driving someone to the airport for 1000 and then will come here and check-in around 1145. He agrees to have a shower. documented in this encounter Procedure Notes * Fantasma Dhillon MD - 12/20/2015 1356 EDT IR Brief Procedure Note Attending: Leo Otter Trawler Boatswain: Alejo Pre-op Dx: Arrhythmia, need for pacemaker [...] infusion 50 mL/hr, intravenous, CONTINUOUS, Starting on [place]isle 12/20/15 at 1200, Until 12/21/15 at 0152, Routine, Preprocedure 1200 (Canceled Entry - Provider: Batch Job User Admin - Comment: Automatically canceled at discontinue of medication order) documented in this encounter Orders Medications Ordered That Michael ht Not Have Been Administered Count Last Ordered Date First Ordered Date sodium chloride 0.9 % (NS) infusion 1 12/19 documented in this encounter Care Teams Perlite Grinder Relationship Specialty Start Date End Date Clem Olvera MD [address] [place] [address] PCP - General 12/18/15 documented as of this encounter
--- OUTSIDE RECORDS SUMMARY | 2024-03-17 08:59 | XMS_ITS | Encounter Summary ---
[place] [address] Care Team Providers Care Ux Ui Designer Name Role Phone Donny Cooper MD Primary Care Provider [phone] Encounter Details Date Type Department Care Team (Latest Contact Info) Description 02/02/2024 10:00 AM EDT - 02/02/2024 11:59 PM EDT Hospital Encounter Non-Invasive [place] [address] Discharge Disposition: Home Social History Tobacco Use [...] [facility] Hospital Encounter Non-Invasive [place] [address] Arrived documented as of this encounter Visit Diagnoses Not on filedocumented in this encounter Care Teams Ux Ui Designer Relationship Specialty Start Date End Date Donny Cooper MD [address] [place] [address] PCP - General Family Medicine 02/25/19 documented as of this encounter
--- OUTSIDE RECORDS SUMMARY | 2024-03-17 08:59 | XMS_ITS | Encounter Summary ---
[place] [address] Care Team Providers Care Health Policy Nurse Name Role Phone Donny Cooper MD Primary Care Provider [phone] Encounter Details Date Type Department Care Team (Latest Contact Info) Description 08/06/2023 10:00 AM EDT - 08/06/2023 11:59 PM EDT Hospital Encounter Non-Invasive [place] [address] Discharge Disposition: Home Social History Tobacco Use [...] [facility] Hospital Encounter Non-Invasive [place] [address] Arrived documented as of this encounter Visit Diagnoses Not on filedocumented in this encounter Care Teams Health Policy Nurse Relationship Specialty Start Date End Date Donny Cooper MD [address] [place] [address] PCP - General Family Medicine 02/25/19 documented as of this encounter
--- OUTSIDE RECORDS SUMMARY | 2024-03-17 08:59 | XMS_ITS | Encounter Summary ---
Author Organization [facility] Address [address] [place] [address] Care Team Providers Care Middleware Solutions Architect Name Role Phone Unknown, Provider Primary Care Provider Clem Alcala MD Primary Care Provider [phone] Encounter Details Date Type Department Care Team (Late st Contact Info) Description 11/29/2015 Pre-Procedure Orders [facility] [address] [place], [place] [address] Navdeep Hurd MD [address] [place] [address] [address] Social History Tobacco Use Types [...] Ferdinand Nabil Boo. Attending: Dr. Dean Bailey Chief Of Anesthesiology: Dr. Fantasma Dhillon History/indication: The patient is [...] Nabil Streeter Attending: Dr. Dean Bailey Chief Of Anesthesiology: Dr. Fantasma Dhillon History/indication: The patient is [...] on filedocumented in this encounter Care Teams Middleware Solutions Architect Relationship Specialty Start Date End Date Unknown, Provider, PCP - General 12/06/12 12/17/15 Clem Olvera MD [address] [place] [address] PCP - General 12/18/15 documented as of this encounter
--- OUTSIDE RECORDS SUMMARY | 2024-03-17 08:59 | XMS_ITS | Encounter Summary ---
Author Organization [facility] [place] [address] Care Team Providers Care Sleep Medicine Physician Name Role Phone Donny Cooper MD Primary Care Provider [phone] Encounter Details Date Type Department Care Team (Latest Contact Info) Description 10/03/2022 10:00 AM EDT Office Visit Cardiology at [address] [address] [place] No, [place] [facility] [place] [address] Cardiomyopathy, primary; Presence of cardiac resynchronization therapy defibrillator (AERIAL PHOTOGRAPHER-D); Diaphragmatic stimulation by cardiac pacemaker, initial encounter [...] original note were not included. Cardiac Device AERIAL PHOTOGRAPHER-D Programming Evaluation Nabil Iglesias [id number] 10/03/2022 History: Mr. 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 [...] AM EST Hospital Encounter Non-[place] [address] Arrived documented as of this encounter Procedures Procedure Name Priority Date/Time Associated Diagnosis Comments EKG 12-LEAD Routine 10/03/2022 11:00 AM EDT Cardiomyopathy, primary Presence of cardiac resynchronization therapy defibrillator (AERIAL PHOTOGRAPHER-D) Diaphragmatic stimulation by cardiac pacemaker, initial encounter documented in this encounter Results * EKG 12 Lead (10/03/2022 11:00 AM EDT) Ventricular rate 74 BPM MUSE SYSTEM Atrial Rate 74 BPM MUSE SYSTEM P-R Interval 154 ms MUSE SYSTEM QRS Duration 162 ms MUSE SYSTEM Q-T Interval 470 ms MUSE SYSTEM QTC Calculated (Bezet) 521 ms MUSE SYSTEM Calculated P Sheldon 30 degrees MUSE SYSTEM Calculated R Sheldon -98 degrees MUSE SYSTEM Calculated T Sheldon 41 degrees MUSE SYSTEM INTERPRETATION Atrial-sense d [...] cardiomyopathies Presence of cardiac resynchronization therapy defibrillator (AERIAL PHOTOGRAPHER-D) Diaphragmatic stimulation by cardiac pacemaker, initial encounter documented in this encounter Care Teams Sleep Medicine Physician Relationship Specialty Start Date End Date Donny Cooper MD [address] [place] [address] PCP - General Family Medicine 02/25/19 documented as of this encounter
--- OUTSIDE RECORDS SUMMARY | 2024-03-17 08:59 | XMS_ITS | Encounter Summary ---
Author Organization [facility] Address [address] [place] [address] Care Team Providers Care Dish Maker Name Role Phone Clem Olvera MD Primary Care Provider [phone] Reason for Visit * Reason Onset Date Comments Appointment Related 10/23/2016 Check for fo llow up of pacer Encounter Details Date Type Department Care Team ([facility] st Contact Info) Description 10/23/2016 Telephone [facility] Cardiology - [address] [place] [address] Pacemaker, Pace Appointment Related (Check [...] Telephone Encounter - Pushpa Shay - 10/23/2016 3337 EDT Spoke with Mrs. Iglesias who stated that Nabil had his pacemaker checked in [place] where they are for the winter. They have some back and are being followed by Dr. uHrd at [facility]. documented in this encounter Plan of Treatment Not on file documented as of this encounter Visit Diagnoses Not on filedocumented in this encounter Care Teams Dish Maker Relationship Specialty Start Date End Date Clem Olvera MD [address] [place] [address] PCP - General 12/18/15 documented as of this encounter
--- OUTSIDE RECORDS SUMMARY | 2024-03-17 08:59 | XMS_ITS | Encounter Summary ---
[place] [address] Care Team Providers Care It Security Consultant Name Role Phone Donny Cooper MD Primary Care Provider [phone] Encounter Details Date Type Department Care Team (Late st Contact Info) Description 01/05/2024 Telephone Cardiology at [address] [address] Kanika Shell Social History Tobacco [...] AM EST Hospital Encounter Non-[place] [address] Arrived documented as of this encounter Visit Diagnoses Not on filedocumented in this encounter Care Teams It Security Consultant Relationship Specialty Start Date End Date Donny Cooper MD [address] [place] [address] PCP - General Family Medicine 02/25/19 documented as of this encounter
--- OUTSIDE RECORDS SUMMARY | 2024-03-17 09:00 | XMS_ITS | Encounter Summary ---
[place] [address] Care Team Providers Care Car Retarder Operator Name Role Phone Marques Martinez MD Primary Care Provider [phone] Encounter Details Date Type Department Care Team (Late st Contact Info) Description 05/01/2010 2:40 PM EST Procedure visit [place] [address] Social History Tobacco Use Types Packs/Day Years [...] AM EST Hospital Encounter Non-Invasive [place] [address] Arrived documented as of this encounter Visit Diagnoses Not on filedocumented in this encounter Care Teams Car Retarder Operator Relationship Specialty Start Date End Date Marques Martinez MD [address] [place] [address] PCP - General 04/01/10 04/08/11 documented as of this encounter
--- OUTSIDE RECORDS SUMMARY | 2024-03-17 09:00 | XMS_ITS | Encounter Summary ---
[place] [address] Care Team Providers Care Tugboat Pilot Name Role Phone Marques Martinez MD Primary Care Provider [phone] Encounter Details Date Type Department Care Team (Late st Contact Info) Description 06/12/2010 2:00 PM EST Procedure [place] [address] Social History Tobacco Use Types Packs/Day Years [...] AM EST Hospital Encounter Non-Invasive [place] [address] Arrived documented as of this encounter Visit Diagnoses Not on filedocumented in this encounter Care Teams Tugboat Pilot Relationship Specialty Start Date End Date Marques Martinez MD [address] [place] [address] PCP - General 04/01/10 04/08/11 documented as of this encounter
--- OUTSIDE RECORDS SUMMARY | 2024-03-17 09:00 | XMS_ITS | Encounter Summary ---
[place] [address] Care Team Providers Care Job Estimator Name Role Phone Donny Cooper MD Primary Care Provider [phone] Encounter Details Date Type Department Care Team (Latest Contact Info) Description 04/08/2022 10:00 AM EST - 04/08/2022 11:59 PM [facility] Hospital Encounter Non-[place] [address] Discharge Disposition: Home Social History Tobacco Use [...] AM EST Hospital Encounter Non-[place] [address] Arrived documented as of this [...] on filedocumented in this encounter Care Teams Job Estimator Relationship Specialty Start Date End Date Donny Cooper MD [address] [place] [address] PCP - General Family Medicine 02/25/19 documented as of this encounter
--- OUTSIDE RECORDS SUMMARY | 2024-03-17 09:00 | XMS_ITS | Encounter Summary ---
[place] [address] Care Team Providers Care Magneto Specialist Name Role Phone Marques Martinez MD Primary Care Provider [phone] Encounter Details Date Type Department Care Team (Late st Contact Info) Description 10/03/2010 [place] [address] Marina Orosco, JADON Social History Tobacco Use [...] [facility] Hospital Encounter Non-[place] [address] Arrived documented as of this encounter Visit Diagnoses Not on filedocumented in this encounter Care Teams Magneto Specialist Relationship Specialty Start Date End Date Marques Martinez MD [address] [place] [address] PCP - General 04/01/10 04/08/11 documented as of this encounter
--- OUTSIDE RECORDS SUMMARY | 2024-03-17 09:00 | XMS_ITS | Encounter Summary ---
Author Organization [facility] [place] [address] Care Team Providers Care Chronic Disease Epidemiologist Name Role Phone Donny Cooper MD Primary Care Provider [phone] Encounter Details Date Type Department Care Team (Late st Contact Info) Description 07/26/2019 Notes Only Cardiology at [address] [address] Maged Arguelles MD [facility] [place] [address] Social History Tobacco Use Types Packs/Day Years [...] his Medtronic biventricular ICD is reviewed. Suboptimal CONTAINER CRANE OPERATOR at 84%. Normal device function. Awaiting Holter to assess PVC burden. Maged Arguelles MD S Cardiac Electrophysiology 07/26/2019 9:04 AM documented in this encounter Plan of Treatment Upcoming Encounters Date Type Department Care Team (Late st Contact Info) Description 05/02/2024 10:00 AM EST Hospital Encounter Non-Invasive [place] [address] Arrived documented as of this encounter Visit Diagnoses Not on filedocumented in this encounter Care Teams Chronic Disease Epidemiologist Relationship Specialty Start Date End Date Donny Cooper MD [address] [place] [address] PCP - General Family Medicine 02/25/19 documented as of this encounter
--- OUTSIDE RECORDS SUMMARY | 2024-03-17 09:00 | XMS_ITS | Encounter Summary ---
Author Organization [facility] [place] [address] Care Team Providers Care Wood Carving Lathe Operator Name Role Phone Donny Cooper MD Primary Care Provider [phone] Encounter Details Date Type Department Care Team (Latest Contact Info) Description 06/13/2020 12:35 PM EST - 06/13/2020 11:59 PM EST Hospital Encounter Non[place] [address] Alber Seals MD [facility] [place] [address] Cardiomyopathy, primary Discharge Disposition: Home Social History [...] AM EST Hospital Encounter Non[place] [address] Arrived documented as of this encounter Procedures Procedure Name Priority Date/Time Associated Diagnosis Comments ICD INTERROGATION 3 MONTH Routine 06/13/2020 12:36 PM EST Cardiomyopathy, primary documented in this encounter Results * ICD INTERROGATION 3 MONTH (06/13/2020 12:36 PM EST) Anatomical Region Laterality Modality Other Narrative 06/14/2020 10:38 AM EST Cardiac Device Remote Monitoring Report Summary Medtronic Teranode 06/14/20 Device: HOUSEKEEPER CHILD CARE-D Model: VIVA QUAD Battery: 2.96 v, estimated longevity 3 years, 11 months Pacing percentage: 78% ventricular paced Events: The presenting rhythm is atrial paced with biventricular pacing and frequent ventricular premature contractions No significant arrhythmias Impression Normal device function; suboptimal HOUSEKEEPER CHILD CARE pacing likely secondary to frequent PVCs. Should consider in clinic follow-up for further evaluation Follow Up As per schedule - in-clinic and remote ALBER SEALS MD Alber Seals MD IMPLANTABLE CARDIAC DEVICE documented in this encounter Visit Diagnoses Diagnosis Cardiomyopathy, primary Other primary cardiomyopathies documented in this encounter Care Teams Wood Carving Lathe Operator Relationship Specialty Start Date End Date Donny Cooper MD [address] [place] [address] PCP - General Family Medicine 02/25/19 documented as of this encounter
--- OUTSIDE RECORDS SUMMARY | 2024-03-17 09:00 | XMS_ITS | Encounter Summary ---
[place] [address] Care Team Providers Care Draw Frame Runner Name Role Phone Donny Cooper MD Primary Care Provider [phone] Encounter Details Date Type Department Care Team (Late st Contact Info) Description 03/17/2019 Telephone Cardiology at [address] [address] Sheri Quinn LNA Social History [...] 11:46 AM EST Medication list reviewed with [facility] list. Please review with patient at next clinic visit. documented in this encounter Plan of Treatment Upcoming Encounters Date Type Department Care Team (Late st Contact Info) Description 05/02/2024 10:00 AM EST Hospital Encounter Non-Invasive [place] [address] Arrived documented as of this encounter Visit Diagnoses Not on filedocumented in this encounter Care Teams Draw Frame Runner Relationship Specialty Start Date End Date Donny Cooper MD [address] [place] [address] PCP - General Family Medicine 02/25/19 documented as of this encounter
--- OUTSIDE RECORDS SUMMARY | 2024-03-17 09:00 | XMS_ITS | Encounter Summary ---
Author Organization Formerly [facility] [place] [address] Care Team Providers Care Agricultural Sciences Professor Name Role Phone Donny Cooper MD Primary Care Provider [phone] Encounter Details Date Type Department Care Team (Latest Contact Info) Description 12/18/2020 11:57 AM EDT - 12/18/2020 11:59 PM EDT Hospital Encounter [place] [address] Maged Arguelles MD [facility] [place] [address] Cardiomyopathy, primary Discharge Disposition: Home Social History [...] AM EST Hospital Encounter [place] [address] Arrived documented as of this encounter Procedures Procedure Name Priority Date/Time Associated Diagnosis Comments ICD INTERROGATION 3 MONTH Routine 12/18/2020 12:00 PM EDT Cardiomyopathy, primary documented in this encounter Results * ICD INTERROGATION 3 MONTH (12/18/2020 12:00 PM EDT) Anatomical Region Laterality Modality Other Narrative 12/23/2020 11:08 PM EDT MDT BLUEPRINT DUPLICATOR-D remote reviewed. Normal device function. Inadequate BLUEPRINT DUPLICATOR at 80%. Maged Arguelles MD [facility] Cardiac Electrophysiology 12/23/2020 11:06 PM Maged Arguelles MD IMPLANTABLE CARDIAC DEVICE documented in this encounter Visit Diagnoses Diagnosis Cardiomyopathy, primary Other primary cardiomyopathies documented in this encounter Care Teams Agricultural Sciences Professor Relationship Specialty Start Date End Date Donny Cooper MD [address] [facility] [address] [place] [address] PCP - General Family Medicine 02/25/19 documented as of this encounter
--- OUTSIDE RECORDS SUMMARY | 2024-03-17 09:00 | XMS_ITS | Encounter Summary ---
Author Organization [facility] [place] [address] Care Team Providers Care Hydrogen Cell Tender Name Role Phone Marques Martinez MD Primary Care Provider [phone] Encounter Details Date Type Department Care Team (Late st Contact Info) Description 10/09/2010 11:35 AM EDT - 10/09/2010 11:59 PM EDT Hospital Encounter XRay at [address] [place] [address] Social History Tobacco Use Types [...] [facility] [place] [address] Arrived documented as of this encounter Visit Diagnoses Not on filedocumented in this encounter Care Teams Hydrogen Cell Tender Relationship Specialty Start Date End Date Marques Martinez MD [address] [place] [address] PCP - General 04/01/10 04/08/11 documented as of this encounter
--- OUTSIDE RECORDS SUMMARY | 2024-03-17 09:00 | XMS_ITS | Encounter Summary ---
Author Organization [facility] [place] [address] Care Team Providers Care Studio Musician Name Role Phone Clem Olvera MD Primary Care Provider [phone] Reason for Visit * Reason Comments Follow Up Fracture SP PATELLA FX DO12/12 DOI 03/30/10 Encounter Details Date Type Department Care Team (Late st Contact Info) Description 04/09/2011 1:30 PM EST Office [place] [address] Jairon Gustafson MD [facility] [place] [address] Jose Francisco Bee PA [facility] [place] [address] Patella fracture (Primary Dx) Discharge Disposition: Home [...] AM EST Hospital Encounter Non[place] [address] Arrived documented as of this encounter Visit Diagnoses Diagnosis Patella fracture- Primary Closed fracture of patella documented in this encounter Care Teams Studio Musician Relationship Specialty Start Date End Date Clem Olvera MD [address] [place] [address] PCP - General 04/09/11 02/24/19 documented as of this encounter
--- OUTSIDE RECORDS SUMMARY | 2024-03-17 09:00 | XMS_ITS | Encounter Summary ---
[place] [address] Care Team Providers Care Employment Recruiter Name Role Phone Donny Cooper MD Primary Care Provider [phone] Encounter Details Date Type Department Care Team (Late st Contact Info) Description 06/14/2020 Telephone Cardiology at [address] [phone] Nhung Briggs Social History Tobacco Use Types [...] - 06/14/2020 11:[address] Seasl, pt should be seen for suboptimal biventricular pacing. Spoke to pt. He would like to be seen at [facility]. Email sent to Brittaney Hernandez at [facility] asking her to reach out to pt to set up the appt with either Dr. Arguelles or LANG Albert. Nhung Allen Electrophysiology Scheduling [id number] option 2 documented in this encounter Plan of Treatment Upcoming Encounters Date Type Department Care Team (Late st Contact Info) Description 05/02/2024 10:00 AM EST Hospital Encounter Non-Invasive [place] [address] Arrived documented as of this encounter Visit Diagnoses Not on filedocumented in this encounter Care Teams Employment Recruiter Relationship Specialty Start Date End Date Donny Cooper MD [address] [place] [address] PCP - General Family Medicine 02/25/19 documented as of this encounter
--- OUTSIDE RECORDS SUMMARY | 2024-03-17 09:00 | XMS_ITS | Encounter Summary ---
Author Organization [facility] [place] [address] Care Team Providers Care Wharf Hand Name Role Phone Marques Martinez MD Primary Care Provider [phone] Reason for Visit * Reason Comments Follow Up Fracture PATELLA FX DOI 03/23 10 Encounter Details Date Type Department Care Team (Late st Contact Info) Description 10/09/2010 12:40 PM EDT Office Visit [place] [address] Jairon Gustafson MD [facility] [place] [address] Jose Francisco Bee PA [facility] [place] [address] Quadriceps tendon rupture (Primary Dx) Discharge Disposition: [...] [facility] Non[facility] [address] Arrived documented as of this encounter Visit Diagnoses Diagnosis Quadriceps tendon rupture- Primary Sprain and strain of other specified sites of knee and leg documented in this encounter Care Teams Wharf Hand Relationship Specialty Start Date End Date Marques Martinez MD [address] [place] [address] PCP - General 04/01/10 04/08/11 documented as of this encounter
--- OUTSIDE RECORDS SUMMARY | 2024-03-17 09:00 | XMS_ITS | Encounter Summary ---
Author Organization [facility] [place] [address] Care Team Providers Care Grinder Operator Name Role Phone Marques Martinez MD Primary Care Provider Encounter Details Date Type Department Care Team (Late st Contact Info) Description 09/11/2010 Orders [place] [address] Jairon Fenton MD [facility] [place] [address] Fracture of patella, left, closed (Primary Dx) [...] [place] [facility] Encounter Non-[place]vasive [place] [address] Arrived documented as of this encounter Visit Diagnoses Diagnosis Fracture of patella, left, closed- Primary Closed fracture of patella documented in this encounter Care Teams Grinder Operator Relationship Specialty Start Date End Date Marques Martinez MD [address] [place] [address] PCP - General 04/01/10 04/08/11 documented as of this encounter
--- OUTSIDE RECORDS SUMMARY | 2024-03-17 09:00 | XMS_ITS | Encounter Summary ---
[facility] [place] [address] Care Team Providers Care It Help Desk Analyst Name Role Phone Marques Martinez MD Primary Care Provider [phone] Encounter Details Date Type Department Care Team (Late st Contact Info) Description 03/30/2010 [place] [phone] Javier Barajas MD [facility] [place] [address] Social History Tobacco Use Types Packs/Day Years [...] Hospital Encounter [place] [address] Arrived documented as of this encounter Procedures [...] AM EST Jairon Fenton MD CHEMISTRY ORDERABLES [facility] * (ABNORMAL) CREATININE, SERUM (04/01/2010 6:09 AM [...] Fenton MD CHEMISTRY ORDERABLES Performing Organization Address [facility] de Phone Number CERNER CHRISTOSENNIUM * BUN (04/01/2010 6:09 AM EST) Blood Urea Nitrogen 12 10 - 20 mg/dL [facility]ER MILLENNIUM Blood specimen (specimen) 04/01/2010 6:09 AM EST 04/01/2010 6:09 AM EST Jairon Fenton MD CHEMISTRY ORDERABLES Performing Organization Address [facility] de Phone Number CERNER CHRISTOSENNIUM [...] MD HEMATOLOGY ORDERABLE S Performing Organization Address [facility] de Phone Number CERIVIS MILLENNIUM * [...] Fenton MD CHEMISTRY ORDERABLES Performing Organization Address [facility] Phone Number CERIVIS MILLENNIUM * ELECTROLYTE [...] Fenton MD CHEMISTRY ORDERABLES Performing Organization Address [facility] de Phone Number CERIVIS MILLENNIUM * CREATININE, SERUM (03/30/2010 6:05 PM EST) Creatinine 0.87 0.80 - 1.50 mg/dL [facility] Est Glomerular Filtration Rate >60 >=60 [...] Nitrogen 18 10 - 20 mg/dL [facility] Blood specimen (specimen) 03/30/2010 6:05 PM EST 03/30/2010 6:13 PM EST Jairon Fenton MD CHEMISTRY ORDERABLES Performing Organization Address [facility] de Phone Number DEJA MOSQUEDAIUM * APTT (03/30/2010 6:05 PM EST) Partial Thromboplastin Time 26 25 - 37 sec [facility]ERNER MILLENNIUM Comment: Recommended therapeutic PTT range for full dose unfractionated heparin is 80-114 seconds. Blood specimen (specimen) 03/30/2010 6:05 PM EST 03/30/2010 6:14 PM EST Jairon Fenton MD HEMATOLOGY ORDERABLE S Performing Organization Address [facility] Phone Number DEJA SEGOVIA * PROTIME-INR (03/30/2010 6:05 PM EST) Prothrombin Time 14.2 12.3 - 14.7 sec [facility]NER[facility] MOSQUEDAIUM Comment: [facility] Transfusion Committee Guidelines: INR less than [...] MD HEMATOLOGY ORDERABLE S Performing Organization Address [facility] de Phone Number DEJA SEGOVIA [...] Standard Deviation 44.2 35.0 - 46.0 fL [facility] RDW coefficient of variation 13.1 10.9 - 14.4 % [facility] Mean Platelet Volume 10.6 9.0 - 12.0 fL [facility] Blood specimen (specimen) 03/30/2010 6:05 PM EST 03/30/2010 6:13 PM EST Jairon Fenton MD HEMATOLOGY ORDERABLE S Performing Organization Address City/[facility] de Phone Number [facility] * REFLEX LAB-ANTIBODY SCREEN (03/30/2010 3:17 PM EST) [facility] Ab Screen Interp Negative [facility] Expires at [id number] on: [id number] [facility] Blood specimen (specimen) 03/30/2010 3:17 PM EST 03/30/2010 3:17 PM EST Javier Barajas MD BLOOD BANK LAB ORDER PRECIOUS Performing Organization Address [facility] de Phone Number [facility] * REFLEX LAB-ABO/RH (03/30/2010 3:17 PM EST) [facility] ABORH Type A Pos [facility] Blood specimen (specimen) 03/30/2010 3:17 PM EST 03/30/2010 3:17 PM EST Javier Barajas MD BLOOD BANK LAB ORDER PRECIOUS Performing Organization Address [facility] de Phone Number [facility] * ELECTROLYTE PANEL (03/30/2010 2:50 PM EST) [facility] Sodium 135 135 - 145 mmol/L [facility] Potassium 4.3 3.5 - 5.0 mmol/L [facility] Comment: Please note: ??Patients with WBC [...] PM EST Javier Barajas MD CHEMISTRY ORDERABLES [facility] * [...] Barajas MD CHEMISTRY ORDERABLES Performing Organization Address [facility] Phone Number [facility] * BUN (03/30/2010 2:50 PM EST) Blood Urea Nitrogen 18 10 - 20 mg/dL [facility] Blood specimen (specimen) 03/30/2010 2:50 PM EST 03/30/2010 3:05 PM EST Javier Barajas MD CHEMISTRY ORDERABLES Performing Organization Address [facility] Phone Number [facility] * GLUCOSE, RANDOM (03/30/2010 2:50 PM EST) Glucose 95 <=199 mg/dL [facility] Comment:Diabetes: >=200 mg/d L plus symptoms Blood specimen (specimen) 03/30/2010 2:50 PM EST 03/30/2010 3:05 PM EST Javier Barajas MD CHEMISTRY ORDERABLES Performing Organization Address [facility] Phone Number [facility] * APTT (03/30/2010 2:50 PM EST) Partial Thromboplastin Time 25 25 - 37 sec [facility] Comment: Recommended therapeutic PTT range for full dose unfractionated heparin is 80-114 seconds. Blood specimen (specimen) 03/30/2010 2:50 PM EST 03/30/2010 3:06 PM EST Javier Barajas MD HEMATOLOGY ORDERABLE S Performing Organization Address [facility] Phone Number [facility] * PROTIME-INR (03/30/2010 2:50 PM EST) Prothrombin Time 14.1 12.3 - 14.7 sec [facility] Comment: [facility] Transfusion Committee Guidelines: INR less than [...] filedocumented in this encounter Care Teams It Help Desk Analyst Relationship Specialty Start Date End Date aMrques Martinez MD [address] [place] [address] PCP - General 04/01/10 04/08/11 documented as of this encounter
--- OUTSIDE RECORDS SUMMARY | 2024-03-17 09:00 | XMS_ITS | Encounter Summary ---
Author Organization [facility] [place] [address] Care Team Providers Care Insurance Agency Sales Manager Name Role Phone Marques Martinez MD Primary Care Provider [phone] Encounter Details Date Type Department Care Team (Late st Contact Info) Description 06/12/2010 2:10 PM EST Office [place] [phone] Jairon Fenton MD [facility] [address] [place] [address] Discharge Disposition: Home Social History Tobacco Use [...] AM EST Hospital Encounter Non-Invasive [place]iology [place] [address] Arrived documented as of this encounter Visit Diagnoses Not on filedocumented in this encounter Care Teams Insurance Agency Sales Manager Relationship Specialty Start Date End Date Marques Martinez MD [address] [place] [address] PCP - General 04/01/10 04/08/11 documented as of this encounter
--- OUTSIDE RECORDS SUMMARY | 2024-03-17 09:00 | XMS_ITS | Encounter Summary ---
Author Organization [facility] [place] [address] Care Team Providers Care Mailing Machine Helper Name Role Phone Marques Martinez MD Primary Care Provider [phone] Encounter Details Date Type Department Care Team (Late st Contact Info) Description 05/01/2010 3:10 PM EST Office [place] [address] Jairon Fenton MD [facility] [place] [address] Discharge Disposition: Home Social History Tobacco Use [...] AM EST Hospital Encounter Non-Invasive [place] [address] Arrived documented as of this encounter Visit Diagnoses Not on filedocumented in this encounter Care Teams Mailing Machine Helper Relationship Specialty Start Date End Date Marques Martinez MD [address] [place] [address] PCP - General 04/01/10 04/08/11 documented as of this encounter
--- OUTSIDE RECORDS SUMMARY | 2024-03-17 09:00 | XMS_ITS | Encounter Summary ---
[place] [address] Care Team Providers Care French Teacher Name Role Phone Donny Cooper MD Primary Care Provider [phone] Encounter Details Date Type Department Care Team (Latest Contact Info) Description 07/07/2022 10:00 AM EST - 07/07/2022 11:59 PM EST Hospital Encounter [place] [address] Discharge Disposition: Home Social History Tobacco Use [...] AM EST Hospital Encounter [place] [address] Arrived documented as of this [...] on filedocumented in this encounter Care Teams French Teacher Relationship Specialty Start Date End Date Donny Cooper MD [address] [place] [address] PCP - General Family Medicine 02/25/19 documented as of this encounter
--- OUTSIDE RECORDS SUMMARY | 2024-03-17 09:00 | XMS_ITS | Encounter Summary ---
Author Organization [facility] [place] [address] Care Team Providers Care Global Process Owner Name Role Phone Donny Cooper MD Primary Care Provider [phone] Encounter Details Date Type Department Care Team (Latest Contact Info) Description 06/25/2021 3:23 PM EST - 06/25/2021 11:59 PM EST Hospital Encounter Non-Invasive [place] [address] Alber Seals MD [facility] [place] [address] Cardiomyopathy, primary Discharge Disposition: Home Social History [...] AM EST Hospital Encounter Non-Invasive [place] [address] Arrived documented as of this encounter Procedures Procedure Name Priority Date/Time Associated Diagnosis Comments ICD INTERROGATION 3 MONTH Routine 06/25/2021 3:24 PM EST Cardiomyopathy, primary documented in this encounter Results * ICD INTERROGATION 3 MONTH (06/25/2021 3:24 PM EST) Anatomical Region Laterality Modality Other Narrative 06/25/2021 3:42 PM EST Cardiac Device Remote Monitoring Report Summary [employer]tr[employer] Carelink Device: BUFFING MACHINE TENDER-D Model: VIVA QUAD Battery: 2.95 v, estimated longevity 2 years 6 months Pacing percentage: 90% BUFFING MACHINE TENDER paced Events: Presenting rhythm: atrial paced/biventricular paced Frequent PVC's Impression Normal device function Follow Up As per schedule - in-clinic and remote ALBER SEALS MD 06/25/21 Alber Seals MD IMPLANTABLE CARDIAC DEVICE documented in this encounter Visit Diagnoses Diagnosis Cardiomyopathy, primary Other primary cardiomyopathies documented in this encounter Care Teams Global Process Owner Relationship Specialty Start Date End Date Donny Cooper MD [address] [place] [address] PCP - General Family Medicine 02/25/19 documented as of this encounter
[2024-03-17 09:04] VITALS: BP 119/63; PULSE 69
--- OUTSIDE RECORDS SUMMARY | 2024-03-22 08:26 | XMS_ITS | Encounter Summary ---
[place] [address] Care Team Providers Care Dressmaker Helper Name Role Phone Donny Cooper MD Primary Care Provider [phone] Encounter Details Date Type Department Care Team (Latest Contact Info) Description 04/03/2023 10:00 AM EST - 04/03/2023 11:59 PM [facility] Hospital Encounter [place] [address] Discharge Disposition: Home Social History Tobacco Use [...] st Contact Info) Description 05/02/2024 10:00 AM [facility] Hospital Encounter [place] [address] Arrived documented as of this [...] on filedocumented in this encounter Care Teams Dressmaker Helper Relationship Specialty Start Date End Date Donny Cooper MD [address] [place] [address] PCP - General Family Medicine 02/25/19 documented as of this encounter
--- OUTSIDE RECORDS SUMMARY | 2024-03-22 08:26 | XMS_ITS | Encounter Summary ---
Author Organization [facility] Address [address] [place] [address] Care Team Providers Care Phototypesetting Equipment Monitor Name Role Phone Clem Olvera MD Primary Care Provider [phone] Reason for Referral * (Routine) - Closed [...] the Cardiac Arrhythmia Service at The at [phone] or , extension [phone]. For any scheduling of appointments, please call [phone] or , extension [phone]. . * (Routine) - Closed Specialty Diagnoses [...] Expiration Date V isits Requested Visits Authorized [id number] Closed Specialty Services Required 02/27/2016 1 1 [...] - The Cardiology is located at [address] [facility] in [place] -Clinics are also held in [facility], [place], [place] and [facility]. If you live in those areas, we will make arrangements for follow-up appointments in one of those clinics.. Encounter Details Date Type Department Care Team (Late st Contact Info) Description 02/27/2016 6:30 EDT - 02/28/2016 13:39 EDT Hospital Encounter [facility] Cardiac/Telemetry Unit [address] [place] [address] Gulshan Drummond MD PhD [address] [facility], Level [address] [place] [phone] Gulshan Montoya Sa, MD [address] [facility] [address] [place] [phone] AICD lead malfunction, subsequent encounter; ICD [...] EF of 20-25% status post silent inferior CT in the early . 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 He had heart failure symptoms that started around May 2013, when he was in [place], [place]. This triggered major cardiac workup including [...] then underwent a device upgrade to a CHOCOLATE DIPPER-D device with biventricular pacing for his EF [...] been followed in cardiology outreach clinic at [facility] in [place]. Continued high pacing threshold on the epicardial [...] and plans to follow up with his Design Engineer in [place] in 6-8 weeks for [...] HGBA1C Discharge Follow Up Appointments Scheduled with [facility] Appointments Outside of [facility] We Will Schedule Studies We Will Schedule Appointments We Recommend but have not been Scheduled Beatrice De La Garza NP 02/27/2016 10:59 Cosigned by Gulshan Montoya Sa, MD at 02/28/2016 15:19 EDT Associated attestation - Gulshan Montoya Sa, MD - 02/28/2016 3139 EDT Attending Attestation: I saw and evaluated the patient. I discussed the case with the resident/SLIDE DEVELOPER/fellow and agree with the findings and plan [...] Notes * Lou Alfonso, JADON - 02/28/2016 3262 EDT Pt awaiting discharge. IV and tele was removed by primary nurse. This RN administered flu shot and provided flu information sheet. AVS and medications reviewed by RN with patient and . AVS statedcoreg was 3.25mg BID, which pt states no, they must have copied it down wrong. I'm not doing that.We've been through this in [place]. It makes me pass out. RN suggested checking with team, which pt denied and states I wont take it twice a day. He did agree to review this medication with his spring fitter helper and plans to remain on his home dosing, which was in the morning. He received dose this am. Ptleft via wheelchair with . * Jennifer Beatrice - 02/28/2016 1329 EDT Brief visit with patient and as they were being discharged. Patient states he is independent in self care and home management. He feels well supported by friends and neighbors. Patient has Medicare and [facility]. Pharmacy is [facility] in [facility]. No needs identified at time of discharge. will provide transportation. Beatrice Rodriguez RN Case Manager #[id number] documented in this encounter H&P Notes * Navdeep Hurd MD - 02/27/2016 0830 EDT Cardiology Admitting H&P Admit Date: 02/27/2016 Date of Service: 02/27/2016 PCP: Clem Olvera Code Status: Full Code Chief Complaint: FINN, device battery depletion, high pacing threshold on epicardial lead HPI: 74-year-old man with coronary artery disease and ischemic cardiomyopathy status post silent inferior CT in the early . 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 He had heart failure symptoms that started around May 2013, when he was in [place], [place]. This triggered major cardiac workup including [...] point, his device was upgraded to a CHOCOLATE DIPPER-D device with biventricular pacing. By the patient's [...] been followed in cardiology outreach clinic at [facility] in [place]. Continued high pacing threshold on the epicardial LV lead has caused a very rapid battery depletion. Dr. David Adams in [place] recommended against lead extraction and reimplant as [...] ??? Pacemaker insertion 2002 2013 second pacemaker [facility] Social History Family History Social History Substance Use Topics ??? Smoking status: Former Smoker Years: 35.00 Quit date: 1989 ??? Smokeless tobacco: Not on file ??? Alcohol use 6.6 oz/week 6 Cans of beer, 5 Glasses of wine per week , lives with , retired. Spends leong in [place]. Spends the chery in [place], [place]. Quit smoking in 1990. Has 2 [...] and ischemic cardiomyopathy status post silent inferior CT in the early . Also diagnosed with [...] point, his device was upgraded to a CHOCOLATE DIPPER-D device with biventricular pacing with a surgically [...] Care - Mady Bruno RN - 02/27/2016 0267 EDT Problem: Daily Care Plan Goals Goal: [...] 03/12/2016 12:4 3 EST us Scan 2 Spreader Operator Automatic PROCEDURE/MINOR SURGICAL OR DERABLES Final Result * ECG REPORT - SCANNED (03/04/2016 14:06 EDT) 03/04/2016 14:0 6 EDT us Scan 2 Spreader Operator Automatic PROCEDURE/MINOR SURGICAL OR DERABLES Final Result * ECG REPORT - SCANNED (03/04/2016 14:06 EDT) 03/04/2016 14:0 6 EDT us Scan 2 Spreader Operator Automatic PROCEDURE/MINOR SURGICAL OR DERABLES Final Result * IMPLANT RECORD - SCANNED (03/04/2016 14:06 EDT) 03/04/2016 14:0 6 EDT us Scan 2 Spreader Operator Automatic PROCEDURE/MINOR SURGICAL OR DERABLES Final Result * ECG REPORT - SCANNED (03/01/2016 8:58 EDT) 03/01/2016 8:58 EDT us Scan 2 Spreader Operator Automatic PROCEDURE/MINOR SURGICAL OR DERABLES Final Result * ECG REPORT - SCANNED (03/01/2016 8:58 EDT) 03/01/2016 8:58 EDT us Scan 2 Spreader Operator Automatic PROCEDURE/MINOR SURGICAL OR DERABLES Final Result * [...] 9.84 4.0 - 10.4 K/cmm 02/28/2016 6:26 [facility] RBC 4.42 4.36 - 5.78 M/cmm 02/28/2016 6:26 [facility] Hemoglobin 14.2 13.8 - 17.3 gm/dl 02/28/2016 6:26 [facility] HCT 40.9 39.5 - 50.2 % 02/28/2016 6:26 [facility] MCV 93 81 - 95 fl 02/28/2016 6:26 [facility] MCH 32.1 27.6 - 33.0 pg 02/28/2016 6:26 [facility] MCHC 34.7 32.8 - 36.4 gm/dl 02/28/2016 6:26 [facility] RDW-CV 13.1 11.8 - 14.1 % 02/28/2016 6:26 EDT [facility] RDW-SD 44.6 36.5 - 45.9 fl 02/28/2016 6:26 EDT [facility] PLT 151 141 - 377 K/cmm 02/28/2016 6:26 EDT [facility] MPV 11.2 9.5 - 12.7 fl 02/28/2016 6:26 EDT [facility] Blood specimen (specimen) BLOOD SPECIMEN / Unknown 02/28/2016 5:44 EDT 02/28/2016 6:13 EDT Beatrice De La Garza SLIDE DEVELOPER HEMATOLOGY & PF4 ORDE RABLES Final Result Performing Organization Address City/[facility] Co de Phone Number [facility] [address] [place] [address] * (ABNORMAL) CREATININE (02/28/2016 5:44 EDT) Creatinine 0.65(L) 0.66 - 1.25 mg/dl 02/28/2016 6:48 EDT [facility] GFR, Calculated 95 >60 ml/min/1.7 3m2 02/28/2016 6:48 EDT [facility] Comment: eGFR calculated using CKD-EPI equation for non Americans. Multiply eGFR by 1.16 for Americans. Blood specimen (specimen) BLOOD SPECIMEN / Unknown 02/28/2016 5:44 EDT 02/28/2016 6:13 EDT Beatrice De La Garza NP CHEMISTRY & BLOOD GAS ORDERABLES Final Result Performing Organization Address City/[facility]/ZIP Co de Phone Number [facility] [address] [place] [address] * BUN (02/28/2016 5:44 EDT) BUN 14 10 - 26 mg/dl 02/28/2016 6:48 EDT [facility] Blood specimen (specimen) BLOOD SPECIMEN / Unknown 02/28/2016 5:44 EDT 02/28/2016 6:13 EDT Beatrice De La Garza SLIDE DEVELOPER CHEMISTRY & BLOOD GAS ORDERABLES Final Result Performing Organization Address [facility] Co de Phone Number [facility] [address] [place] [address] * ELECTROLYTES (02/28/2016 5:44 EDT) Sodium 138 136 - 145 mEq/L 02/28/2016 6:48 EDT [facility] Potassium 4.7 3.5 - 5.0 mEq/L 02/28/2016 6:48 EDT [facility] Chloride 104 96 - 110 mEq/L 02/28/2016 6:48 EDT [facility] CO2 25 22 - 32 mEq/L 02/28/2016 6:48 EDT [facility] Comment:Note new reference r hong 02/19/16 Blood specimen (specimen) BLOOD SPECIMEN / Unknown 02/28/2016 5:44 EDT 02/28/2016 6:13 EDT Result [facility] Beatrice De La Garza NP CHEMISTRY & BLOOD GAS ORDERABLES Final Result Performing Organization Address [facility] Co de Phone Number [facility] [address] [place] [address] * PORTABLE CHEST 1 VIEW (02/27/2016 12:46 [...] 12:41 EDT) 02/27/2016 12:4 1 EDT Narrative [facility] EKG - 02/28/2016 8:57 EDT ? The ? Test Date: ?2016-02-27 Pat Name: ? NABIL IGLESIAS ? Department: ?? [facility] 5 ? Room: ? MW514 Gender: ? M ?Brokerage Purchase And Sale Clerk: ?? [id number] : ?1940 ? Requested By: KAIN Gallagher Order Number: [id number] ? Julia WRIGHT: ?? BRAYAN CUENCA MD ? Measurements Intervals ?Wallace ? Rate: ? 63 ? P: ?15 [...] Pat Name: NABIL IGLESIAS Department: [place] [address] Room: [facility] Gender: M Brokerage Purchase And Sale Clerk: [id number] : 1940 Requested By: KAIN Gallagher Order Number: [id number] Reading MD: BRAYAN CUENCA MD Measurements Intervals Wallace Rate: 63 P: 15 MD: 159 QRS: [...] OR DERABLES Final Result Performing Organization Address [facility] Co de Phone Number [facility] E[facility] * PROTIME (02/27/2016 8:45 EDT) Pro Time 12.3 10.3 - 13.1 secs 02/27/2016 9:10 EDT [facility] Comment: New prothrombin t josue range effective 01/29/16 I.N.R. 1.1 0.9 - 1.1 Ratio 02/27/2016 9:10 EDT [facility] Comment: Moderate Intensity Coumadin INR = 2.0-3.0 Adjustments in anticoagulant therapy dose should be based upon the INR and NOT the Pro Time. Blood specimen (specimen) BLOOD SPECIMEN / Unknown 02/27/2016 8:45 EDT 02/27/2016 8:54 EDT us Gulshan Drummond MD PhD HEMATOLOGY & P F4 ORDERABLES Final Result Performing Organization Address [facility] Co de Phone Number [facility] [address] [place] [address] * HEMAGRAM (02/27/2016 8:45 EDT) WBC 6.47 4.0 - 10.4 K/cmm 02/27/2016 8:57 EDT [facility] RBC 4.51 4.36 - 5.78 M/cmm 02/27/2016 8:57 T [facility] Hemoglobin 14.7 13.8 - 17.3 gm/dl 02/27/2016 8:57 EDT [facility] HCT 41.7 39.5 - 50.2 % 02/27/2016 8:57 EDT [facility] MCV 93 81 - 95 fl 02/27/2016 8:57 EDT [facility] MCH 32.6 27.6 - 33.0 pg 02/27/2016 8:57 EDT [facility] MCHC 35.3 32.8 - 36.4 gm/dl 02/27/2016 8:57 EDT [facility] RDW-CV 13.1 11.8 - 14.1 % 02/27/2016 8:57 EDT [facility] RDW-SD 44.0 36.5 - 45.9 fl 02/27/2016 8:57 EDT [facility] PLT 176 141 - 377 K/cmm 02/27/2016 8:57 EDT [facility] MPV 10.7 9.5 - 12.7 fl 02/27/2016 8:57 EDT [facility] Blood specimen (specimen) BLOOD SPECIMEN / Unknown 02/27/2016 8:45 EDT 02/27/2016 8:54 EDT us Gulshan Drummond MD PhD HEMATOLOGY & P F4 ORDERABLES Final Result Performing Organization Address City/[facility] Co de Phone Number [facility] [address] [place] [address] * ELECTROLYTES (02/27/2016 8:45 EDT) Sodium 142 136 - 145 mEq/L 02/27/2016 9:13 T [facility] Potassium 4.7 3.5 - 5.0 mEq/L 02/27/2016 9:13 T [facility] Chloride 103 96 - 110 mEq/L 02/27/2016 9:13 EDT [facility] CO2 27 22 - 32 mEq/L 02/27/2016 9:13 T [facility] Comment:Note new reference r hong 02/19/16 Blood specimen (specimen) BLOOD SPECIMEN / Unknown 02/27/2016 8:45 EDT 02/27/2016 8:54 EDT us Gulshan Drummond MD PhD CHEMISTRY & BL OOD GAS ORDERABLES Final Result Performing Organization Address City/[facility]/ZIP Co de Phone Number [facility] [address] [place] [address] * CREATININE (02/27/2016 8:45 EDT) Creatinine 0.69 0.66 - 1.25 mg/dl 02/27/2016 9:13 EDT [facility] GFR, Calculated 93 >60 ml/min/1.7 3m2 02/27/2016 9:13 EDT [facility] Comment: eGFR calculated using CKD-EPI equation for non Americans. Multiply eGFR by 1.16 for Americans. Blood specimen (specimen) BLOOD SPECIMEN / Unknown 02/27/2016 8:45 EDT 02/27/2016 8:54 EDT us Gulshan Drummond MD PhD CHEMISTRY & BL OOD GAS ORDERABLES Final Result Performing Organization Address City/[facility] Co de Phone Number [facility] [address] [place] [address] * BUN (02/27/2016 8:45 EDT) BUN 17 10 - 26 mg/dl 02/27/2016 9:13 EDT [facility] Blood specimen (specimen) BLOOD SPECIMEN / Unknown 02/27/2016 8:45 EDT 02/27/2016 8:54 EDT us Gulshan Drummond MD PhD CHEMISTRY & BL OOD GAS ORDERABLES Final Result Performing Organization Address City/[facility] Co de Phone Number [facility] [address] [place] [address] * EKG 12-LEAD (02/27/2016 8:08 EDT) 02/27/2016 8:08 EDT Narrative [facility] EKG - 02/28/2016 9:01 EDT ? The ? Test Date: ?2016-02-27 Pat Name: ? NABIL IGLESIAS ? Department: ?? [facility] ? Room: ? UI9771 Gender: ? M ?Brokerage Purchase And Sale Clerk: ?? [id number] : ?1940 ? Requested By: MARCIA Boo Order Number: [id number] ? Reading MD: ?? BRAYAN CUENCA MD ? Measurements Intervals ?Wallace ? Rate: ? 69 ? P: ?147 [...] Note Braayn Cuenca MD - 02/28/2016 The Test Date: 2016-02-27 Pat Name: NABIL IGLESIAS Department: [facility] Room: SP9178 Gender: M Brokerage Purchase And Sale Clerk: [id number] : 1940 Requested By: MARCIA Boo Order Number: [id number] Reading MD: BRAYAN CUENCA MD Measurements Intervals Wallace Rate: 69 P: 147 MD: 134 QRS: -67 QRSD: 160 T: -59 QT: 434 QTc: 467 Interpretive Statements ELECTRONIC ATRIAL PACEMAKER ELECTRONIC VENTRICULAR PACEMAKER Compared to ECG 02/27/2016 08:08:46 No significant changes I reviewed the tracing and have either agreed or edited the findings inthis report. Electronically Signed On 02-28-16 09:01:04 EDT by BRAYAN BEEBE. Navdeep Hurd MD CARDIAC ECG ORDERABLES Final Result [facility] EKG documented in this encounter Visit Diagnoses [...] Reason: Other - Comment: pt already took BALL ASSEMBLER, takes other meds at HS) 921 (Given [...] Reason: Other - Comment: pt already took BALL ASSEMBLER, takes other meds at HS)210 (Given - Provider: Mady Bruno, JADON) spironolactone (ALDACTONE) tablet 12.5 mg 12.5 mg, oral, DAILY, First dose on Thu02/27/16 at 1245, Until Discontinued, Routine 1306 (Not Given - Provider: Nneka Stuart RN - Reason: Other - Comment: pt already took BALL ASSEMBLER, takes other meds at HS)210 (Given - Provider: Mady Bruno RN) tamsulosin (FLOMAX) capsule 0.4 mg 0.4 mg, oral, DAILY, First dose on Thu02/27/16 at 1245, Until Discontinued, Routine 1306 (Not Given - Provider: Nneka Stuart RN - Reason: Other - Comment: pt already took BALL ASSEMBLER, takes other meds at HS) 09 (Given [...] 02/02 documented in this encounter Care Teams Phototypesetting Equipment Monitor Relationship Specialty Start Date End Date Clem Olvera MD [address] [place] [address] PCP - General 12/18/15 documented as of this encounter
--- OUTSIDE RECORDS SUMMARY | 2024-03-22 08:26 | XMS_ITS | Clinical Summary ---
Author Organization [facility] [place] [address] Care Team Providers Care Breaker Tender Name Role Phone Donny Cooper MD Primary Care Provider [phone] Allergies No known active allergies Medications Medication [...] Encounters Date Type Department Care Team Description 03/18/2024 Notes Only Cardiology at [address] [phone] Marina Caballero APRN 02/02/2024 10:00 AM EDT - 02/02/2024 11:59 PM EDT Hospital Encounter Non-[place] [phone] Discharge Disposition: Home 01/05/2024 Telephone Cardiology at [address] [phone] Kanika Shell 12/28/2023 Notes Only Cardiology at [address] [phone] Kanika Shell from Last 3 Months Immunizations [...] AM EST Hospital Encounter Non-[place] [address] Arrived Health Maintenance Due Date Last Done Comments Tetanus/Diphtheria/Pertussis Vaccines (1 - Tdap) 08/19/1959 Zoster vaccine (1 of 2) 1990 Advance Directive 08/19/1995 Pneumoccocal Vaccine: 65+ (2 of 2 - PCV) 05/04/2009 05/04/2008 RSV Vaccine (1 - 1-dose 75+ series) 08/19/2015 Covid-19 Vaccine (1 - season) 2024 Influenza (Flu) vaccine (1 o f 1 - Influenza standard series) 01/03/2024 02/01/2010, 03/06/2006, 02/24/2005 Medical Devices Implanted Type Area Visual Communications Instructor Device Identifier Shelf Expiration Date Model / Serial / Lot Mdt : [id number] : [id number] Implanted: (Quantity not on file) Cardiac Resynchronization Therapy - Defibrillator Chest Medtronic - [id number] / [id number] / Care Teams Breaker Tender Relationship Specialty Start Date End Date Donny Cooper MD [address] [place], [place] [id number] PCP - General Family Medicine 02/25/19
--- OUTSIDE RECORDS SUMMARY | 2024-03-22 08:26 | XMS_ITS | Encounter Summary ---
Author Organization [facility] Address [address] [place] [address] Care Team Providers Care Inspector Electromechanical Name Role Phone Clem lOvera MD Primary Care Provider [phone] Encounter Details Date Type Department Care Team (Latest Contact Info) Description 12/20/2015 10:52 EDT - 12/20/2015 23:52 EDT Hospital Encounter [facility] Cardiovascular Unit [address] [place] [address] Navdeep Hurd MD [address] [place] [address] [phone] Discharge Disposition: Home or [...] no need to beNPO or have a class b truck driver. However, his will be accompanying him. They are driving someone to the airport for 1000 and then will come here and check-in around 1145. He agrees to have a shower. documented in this encounter Procedure Notes * Fantasma Dhillon MD - 12/20/2015 1356 EDT IR Brief Procedure Note Attending: Leo Freight Separator: Alejo Pre-op Dx: Arrhythmia, need for pacemaker [...] 12/19 documented in this encounter Care Teams Inspector Electromechanical Relationship Specialty Start Date End Date Clem Olvera MD [address] [place] [address] PCP - General 12/18/15 documented as of this encounter
--- OUTSIDE RECORDS SUMMARY | 2024-03-22 08:26 | XMS_ITS | Encounter Summary ---
[place] [address] Care Team Providers Care Bisque Placer Name Role Phone Donny Cooper MD Primary Care Provider [phone] Encounter Details Date Type Department Care Team [...] HEALTH CLINIC Hospital Encounter Non[place] [address] Arrived documented as of this encounter Visit Diagnoses Not on filedocumented in this encounter Care Teams Bisque Placer Relationship Specialty Start Date End Date Donny Cooper MD [address] [place] [address] PCP - General Family Medicine 02/25/19 documented as of this encounter
--- OUTSIDE RECORDS SUMMARY | 2024-03-22 08:26 | XMS_ITS | Encounter Summary ---
Author Organization [facility] [place] [address] Care Team Providers Care It Project Lead Name Role Phone Donny Cooper MD Primary Care Provider [phone] Encounter Details Date Type Department Care Team (Late st Contact Info) Description 03/18/2024 Notes Only Cardiology at [address] [phone] Marina Caballero APRN [facility] [place] [address] Social History Tobacco Use Types Packs/Day Years Used Date Smoking Tobacco: Former Smokeless Tobacco: Never Alcohol Use Standard Drinks/Week Comments Yes 3 (1 standard drink = 0.6 oz pur e alcohol) Sex and Gender Information Value Date Recorded Sex Assigned at Not on file Gender Identity Not on file Sexual Orientation Not on file documented as of this encounter Progress Notes * Marina Caballero APRN - 03/18/2024 4:52 PM EST Cardiac Electrophysiology Remote download received. Ventricular sensing episode noted to have [place] below programmed device detection for 10 seconds. Battery longevity < 6 months to BALJINDER (5 months). EGMs illustrate AF/AFL, longest per trending 11 hours in duration. Anticoagulated on Eliquis. Overdue for in clinic evaluation. Note sent to schedulers for appointment. Marina Caballero APRN 03/18/24 documented in this encounter Plan of Treatment Upcoming Encounters Date Type Department Care Team (Late st Contact Info) Description 05/02/2024 10:00 AM EST Hospital Encounter Non-Invasive [place] [address] Arrived documented as of this encounter Visit Diagnoses Not on filedocumented in this encounter Care Teams It Project Lead Relationship Specialty Start Date End Date Donny Cooper MD [address] [place] [address] PCP - General Family Medicine 02/25/19 documented as of this encounter
--- OUTSIDE RECORDS SUMMARY | 2024-03-22 08:26 | XMS_ITS | Encounter Summary ---
[place] [address] Care Team Providers Care Lab Head Name Role Phone Donny Cooper MD Primary Care Provider [phone] Encounter Details Date Type Department Care Team (Latest Contact Info) Description 07/07/2022 10:00 AM EST - 07/07/2022 11:59 PM EST Hospital Encounter [place] [address] Discharge Disposition: Home Social History Tobacco Use [...] AM EST Hospital Encounter Non-[place] [address] Arrived documented as of this [...] on filedocumented in this encounter Care Teams Lab Head Relationship Specialty Start Date End Date Donny Cooper MD [address] [place] [address] PCP - General Family Medicine 02/25/19 documented as of this encounter
--- OUTSIDE RECORDS SUMMARY | 2024-03-22 08:26 | XMS_ITS | Encounter Summary ---
Author Organization [facility] Address [address] [place] [address] Care Team Providers Care Estimator Project Manager Name Role Phone Clem Olvera MD Primary Care Provider [phone] Reason for Referral * Cardiology (3 - [...] Expiration Date Visits Re quested Visits Authorized [id number] Closed 02/13/2016 1 1 Encounter Details Date Type Department Care Team (Latest Contact Info) Description 02/13/2016 Pre-Procedure Orders Encounter [facility] [address], [place] [address] Navdeep Hurd MD [address] [place] [address] [phone] ICD (implantable cardioverter-defibril lator) battery depletion (Primary [...] EDT Narrative 02/27/2016 15:17 EDT *Cardiology* [address] [place] [address] Lead Revision (Report amended ) Patient: Nabil Iglesias ?Study Date: ?02/27/2016 ? Accession #: ? [id number] : ? 1940 Referring: Clem Olvera Attending: [...] wire a Nick MENDOZAW 6F ([facility]) 6 mm-40 mm balloon dilation still could [...] fascia. The leads were connected to a JETTING MACHINE OPERATOR-D device. Device and Lead detail in table [...] Implanted device: Medtronic - Viva Quad XT JETTING MACHINE OPERATOR-D DF4 - Serial number: [id number] Explanted device: Medtronic - Viva XT JETTING MACHINE OPERATOR-D DF4 - Serial number: [id number]. LEAD PARAMETERS + + + + + [...] ? Medtronic ? Enpath ? information ?? 9634 ? [id number] ? Attain ? Epicardial ? Performa 4298 ? + + + + + + Serial number [id number] ? [id number] ?? [id number] ?? [id number] ? + + + + [...] Note Gulshan Drummond MD - 05/12/2016 *Cardiology* [address] [place] [address] Lead Revision (Report amended ) Patient: Nabil [...] therefore over an 0.35 glide wire a [place] OTW 6F ([facility]) 6 mm-40 mm balloon dilation still could [...] fascia. The leads were connected to a JETTING MACHINE OPERATOR-D device. Device and Lead detail in table [...] topical skin adhesive. IMPLANTED HARDWARE: Implanted device: [email or web address][employer] - Viva Quad XT JETTING MACHINE OPERATOR-D DF4 - Serial number: [id number] Explanted device: Medtronic - Viva XT JETTING MACHINE OPERATOR-D DF4 - Serial number: [id number]. LEAD PARAMETERS + + + + + [...] + + + + + Serial number [id number] + + + + + + [...] situ documented in this encounter Care Teams Estimator Project Manager Relationship Specialty Start Date End Date Clem Olvera MD [address] [place] [address] PCP - General 12/18/15 documented as of this encounter
--- OUTSIDE RECORDS SUMMARY | 2024-03-22 08:26 | XMS_ITS | Clinical Summary ---
Author Organization [facility] Address [address] [place] [address] Care Team Providers Care Metallurgical Laboratory Assistant Name Role Phone Clem Olvera MD Primary Care Provider [phone] Allergies No known active allergies Medications atorvastatin [...] PACEMAKER INSERTION 05/04/2002 - 05/03/20032013 second pacemaker [facility] Medical History Medical History Date Comments [...] 2024 [place] [id number] Advance Directives For more information, please contact: [phone] * Full Code (Latest Code Status on File) Date Activated Date Inactivated Comments 02/27/2016 8:49 02/28/2016 15:40 Question Answer Comments Reason for decision includes: Full code consistent with overall plan of care Who participated in the discussion? Not Discusse d Care Teams Metallurgical Laboratory Assistant Relationship Specialty Start Date End Date Clem Olvera MD [address] [place] [address] PCP - General 12/18/15
--- OUTSIDE RECORDS SUMMARY | 2024-03-22 08:26 | XMS_ITS | Encounter Summary ---
Author Organization [facility] Address [address] [place] [address] Care Team Providers Care Freelance Programmer/App Developer Name Role Phone Unavailable Primary Care Provider Unavailabl e Encounter Details Date Type Department Care Team (Late st Contact Info) Description 12/02/2012 Results Only [facility] Laboratory Services - [facility] ([facility]) [address] [place] [id number] Satinder Edwards MD [address] [place] [address] Social History Tobacco Use Types Packs/Day Years [...] Name: ? ABDIAZIZCHARMAINE ? Accession #: ? [id number] ? : ? 1940 (Age: 72) ??M [...] ORDERABLES Final Result [facility] [address] [place] [address] documented in this encounter Visit Diagnoses Not on filedocumented in this encounter
--- OUTSIDE RECORDS SUMMARY | 2024-03-22 08:26 | XMS_ITS | Encounter Summary ---
Author Organization [facility] Address [address] [place] [address] Care Team Providers Care Marketing Information Analyst Name Role Phone Unavailable Primary Care Provider Unavailabl e Encounter Details Date Type Department Care Team (Late st Contact Info) Description 05/06/2001 Results Only [facility] - Maple conversion [address] [place] [address] Hernandez Partida MD [address] [place] [phone] Social History Tobacco Use Types Packs/Day Years [...] is submitted entirely in cassette (B). ??(Naty Caal)/[facility] End of Report [facility] 05/06/2001 05/07/2001 9:2 5 EST us Hernandez Partida MD PATHOLOGY ORDERABLES Final Res ult [facility] [address] [place] [address] documented in this encounter Visit Diagnoses Not on filedocumented in this encounter
--- OUTSIDE RECORDS SUMMARY | 2024-03-22 08:26 | XMS_ITS | Encounter Summary ---
[place] [address] Care Team Providers Care Tester Semiconductor Packages Name Role Phone Donny Cooper MD Primary Care Provider [phone] Encounter Details Date Type Department Care Team (Latest Contact Info) Description 10/05/2022 10:00 AM EDT - 10/05/2022 11:59 PM EDT Hospital Encounter [place] [address] Discharge Disposition: Home Social History Tobacco Use [...] st Contact Info) Description 05/02/2024 10:00 AM [facility] Hospital Encounter [place] [address] Arrived documented as of this [...] on filedocumented in this encounter Care Teams Tester Semiconductor Packages Relationship Specialty Start Date End Date Donny Cooper MD [address] [place] [address] PCP - General Family Medicine 02/25/19 documented as of this encounter
--- OUTSIDE RECORDS SUMMARY | 2024-03-22 08:26 | XMS_ITS | Referral Summary ---
Author Organization [facility] Address [address] [place] [address] Care Team Providers Care Spark Plug Tester Name Role Phone Clem Olvera MD Primary Care Provider [phone] Allergies No known active allergies Medications atorvastatin [...] Advance Directives For more information, please contact: [phone] * Full Code (Latest Code Status on File) Date Activated Date Inactivated Comments 02/27/2016 8:49 02/28/2016 15:40 Question Answer Comments Reason for decision includes: Full code consistent with overall plan of care Who participated in the discussion? Not Discusse d Care Teams Spark Plug Tester Relationship Specialty Start Date End Date Clem Olvera MD [address] [place] [address] PCP - General 12/18/15
--- OUTSIDE RECORDS SUMMARY | 2024-03-22 08:26 | XMS_ITS | Encounter Summary ---
[place] [address] Care Team Providers Care Project Internship Name Role Phone Donny Cooper MD Primary Care Provider [phone] Encounter Details Date Type Department Care Team (Latest Contact Info) Description 02/02/2024 10:00 AM EDT - 02/02/2024 11:59 PM EDT Hospital Encounter Non-[place] [address] Discharge Disposition: Home Social History Tobacco Use [...] [facility] Hospital Encounter Non-[place] [address] Arrived documented as of this encounter Visit Diagnoses Not on filedocumented in this encounter Care Teams Project Internship Relationship Specialty Start Date End Date Donny Cooper MD [address] [place] [address] PCP - General Family Medicine 02/25/19 documented as of this encounter
--- OUTSIDE RECORDS SUMMARY | 2024-03-22 08:26 | XMS_ITS | Encounter Summary ---
[place] [address] Care Team Providers Care Cushion Mat Maker Name Role Phone Donny Cooper MD Primary Care Provider [phone] Encounter Details Date Type Department Care Team (Late st Contact Info) Description 01/05/2024 Telephone Cardiology at [address] [address] Kanika Shell Social History Tobacco [...] AM EST Hospital Encounter Non-[place] [address] Arrived documented as of this encounter Visit Diagnoses Not on filedocumented in this encounter Care Teams Cushion Mat Maker Relationship Specialty Start Date End Date Donny Cooper MD [address] [place] [address] PCP - General Family Medicine 02/25/19 documented as of this encounter
--- OUTSIDE RECORDS SUMMARY | 2024-03-22 08:26 | XMS_ITS | Encounter Summary ---
[place] [address] Care Team Providers Care Barrel Straightener Name Role Phone Donny Cooper MD Primary Care Provider [phone] Encounter Details Date Type Department Care Team (Latest Contact Info) Description 01/03/2023 10:00 AM EDT - 01/03/2023 11:59 PM EDT Hospital Encounter Non-[place] [address] Discharge Disposition: Home Social History Tobacco Use [...] [facility] Hospital Encounter Non-[place] [address] Arrived documented as of this [...] on filedocumented in this encounter Care Teams Barrel Straightener Relationship Specialty Start Date End Date Donny Cooper MD [address] [place] [address] PCP - General Family Medicine 02/25/19 documented as of this encounter
--- OUTSIDE RECORDS SUMMARY | 2024-03-22 08:26 | XMS_ITS | Encounter Summary ---
[place] [address] Care Team Providers Care Manager Air Name Role Phone Donny Cooper MD Primary Care Provider [phone] Encounter Details Date Type Department Care Team (Late st Contact Info) Description 12/28/2023 Notes Only Cardiology at [address] [phone] Kanika Shell Social History Tobacco Use Types [...] [facility] Hospital Encounter Non-In[place] [address] Arrived documented as of this encounter Visit Diagnoses Not on filedocumented in this encounter Care Teams Manager Air Relationship Specialty Start Date End Date Donny Cooper MD [address] [facility] [address] [place] [address] PCP - General Family Medicine 02/25/19 documented as of this encounter
--- OUTSIDE RECORDS SUMMARY | 2024-03-22 08:26 | XMS_ITS | Encounter Summary ---
Author Organization [facility] [place] [address] Care Team Providers Care Product Management Intern Name Role Phone Donny Cooper MD Primary Care Provider [phone] Encounter Details Date Type Department Care Team (Latest Contact Info) Description 06/25/2021 3:23 PM EST - 06/25/2021 11:59 PM EST Hospital Encounter Non[place] [address] Alber Seals MD [facility] [place] [address] Cardiomyopathy, primary Discharge Disposition: Home Social History [...] AM EST Hospital Encounter Non[place] [address] Arrived documented as of this encounter Procedures Procedure Name Priority Date/Time Associated Diagnosis Comments ICD INTERROGATION 3 MONTH Routine 06/25/2021 3:24 PM EST Cardiomyopathy, primary documented in this encounter Results * ICD INTERROGATION 3 MONTH (06/25/2021 3:24 PM EST) Anatomical Region Laterality Modality Other Narrative 06/25/2021 3:42 PM EST Cardiac Device Remote Monitoring Report Summary Medtronic Carelink Device: FIRE ALARM OPERATOR-D Model: VIVA QUAD Battery: 2.95 v, estimated longevity 2 years 6 months Pacing percentage: 90% FIRE ALARM OPERATOR paced Events: Presenting rhythm: atrial paced/biventricular paced Frequent PVC's Impression Normal device function Follow Up As per schedule - in-clinic and remote ALBER SEALS MD 06/25/21 Alber Seals MD IMPLANTABLE CARDIAC DEVICE documented in this encounter Visit Diagnoses Diagnosis Cardiomyopathy, primary Other primary cardiomyopathies documented in this encounter Care Teams Product Management Intern Relationship Specialty Start Date End Date Donny Cooper MD [address] [place] [address] PCP - General Family Medicine 02/25/19 documented as of this encounter
--- OUTSIDE RECORDS SUMMARY | 2024-03-22 08:26 | XMS_ITS | Encounter Summary ---
[place] [address] Care Team Providers Care Driller Portable Name Role Phone Donny Cooper MD Primary Care Provider [phone] Encounter Details Date Type Department Care Team (Latest Contact Info) Description 08/06/2023 10:00 AM EDT - 08/06/2023 11:59 PM EDT Hospital Encounter Non-Invasive [place] [address] Discharge Disposition: Home Social History Tobacco Use [...] [facility] Hospital Encounter Non-Invasive [place] [address] Arrived documented as of this encounter Visit Diagnoses Not on filedocumented in this encounter Care Teams Driller Portable Relationship Specialty Start Date End Date Donny Cooper MD [address] [place] [address] PCP - General Family Medicine 02/25/19 documented as of this encounter
--- OUTSIDE RECORDS SUMMARY | 2024-03-22 08:26 | XMS_ITS | Encounter Summary ---
[place] [address] Care Team Providers Care Material Distributor Name Role Phone Donny Cooper MD Primary Care Provider [phone] Encounter Details Date Type Department Care Team (Latest Contact Info) Description 11/04/2023 10:00 AM EDT - 11/04/2023 11:59 PM EDT Hospital Encounter Non-[place] [address] Discharge Disposition: Home Social History Tobacco Use [...] [facility] Hospital Encounter Non-[place] [address] Arrived documented as of this [...] on filedocumented in this encounter Care Teams Material Distributor Relationship Specialty Start Date End Date Donny Cooper MD [address] [place] [address] PCP - General Family Medicine 02/25/19 documented as of this encounter
--- OUTSIDE RECORDS SUMMARY | 2024-03-22 08:26 | XMS_ITS | Encounter Summary ---
Author Organization [facility] Address [address] [place] [address] Care Team Providers Care Clothing Sorter Name Role Phone Clem Olvera MD Primary Care Provider [phone] Reason for Visit * Reason Onset Date Comments Appointment Related 10/23/2016 Check for fo llow up of pacer Encounter Details Date Type Department Care Team ([facility] st Contact Info) Description 10/23/2016 Telephone [facility] Cardiology - [address] [place] [address] Pacemaker, Pace Appointment Related (Check [...] Entry Date Author No 02/27/2016 14:17 EDT eTa Stuart RN documented in this encounter Miscellaneous Notes * Telephone Encounter - Pushpa Shay - 10/23/2016 2127 EDT Spoke with Mrs. Iglesias who stated that Nabil had his pacemaker checked in [place] where they are for the winter. They have some back and are being followed by Dr. Hurd at [facility]. documented in this encounter Plan of Treatment Not on file documented as of this encounter Visit Diagnoses Not on filedocumented in this encounter Care Teams Clothing Sorter Relationship Specialty Start Date End Date Clem Olvera MD [address] [place] [address] PCP - General 12/18/15 documented as of this encounter
--- OUTSIDE RECORDS SUMMARY | 2024-03-22 08:26 | XMS_ITS | Encounter Summary ---
Author Organization [facility] Address [address] [place] [address] Care Team Providers Care Acetone Button Paster Name Role Phone Clem Olvera MD Primary Care Provider [phone] Reason for Visit * Reason Onset Date Comments Other 04/04/2019 Transfer request for Pacer Care at [facility] Encounter Details Date Type Department Care Team (Late st Contact Info) Description 04/04/[address] [facility] [address] [place] [address] Giselle Hill, CONSUMER SAFETY INSPECTOR Other (Transfer request for Pacer Care at [facility]) Social History Tobacco Use [...] 04/04/2019 1503 EST I went into the [employer] Website and released pt to [facility] Pacer Clinic as requested. * Telephone Encounter - Suze Reynoso - 04/04/2019 1342 EST PT WILL BE HAVING HIS PACER CARE DONE AT [facility], PLEASE RELEASE HIS REMOTE MONITORING SO THAT THEY CAN PICK IT UP documented in this encounter Plan of Treatment Not on file documented as of this encounter Visit Diagnoses Not on filedocumented in this encounter Care Teams Acetone Button Paster Relationship Specialty Start Date End Date Clem Olvera MD [address] [place] [address] PCP - General 12/18/15 documented as of this encounter
--- OUTSIDE RECORDS SUMMARY | 2024-03-22 08:26 | XMS_ITS | Encounter Summary ---
Author Organization [facility] [place] [address] Care Team Providers Care School Physical Therapist Name Role Phone Donny Cooper MD Primary Care Provider [phone] Encounter Details Date Type Department Care Team (Latest Contact Info) Description 12/18/2020 11:57 AM EDT - 12/18/2020 11:59 PM EDT Hospital Encounter Non-Invasive [place] [address] Maged Arguelles MD [facility] [place] [address] Cardiomyopathy, primary Discharge Disposition: Home Social History [...] AM EST Hospital Encounter Non-Invasive [place] [address] Arrived documented as of this encounter Procedures Procedure Name Priority Date/Time Associated Diagnosis Comments ICD INTERROGATION 3 MONTH Routine 12/18/2020 12:00 PM EDT Cardiomyopathy, primary documented in this encounter Results * ICD INTERROGATION 3 MONTH (12/18/2020 12:00 PM EDT) Anatomical Region Laterality Modality Other Narrative 12/23/2020 11:08 PM EDT MDT ANESTHESIOLOGY PHYSICIAN ASSISTANT-D remote reviewed. Normal device function. Inadequate ANESTHESIOLOGY PHYSICIAN ASSISTANT at 80%. Maged Arguelles MD [facility] Cardiac Electrophysiology 12/23/2020 11:06 PM Maged Arguelles MD IMPLANTABLE CARDIAC DEVICE documented in this encounter Visit Diagnoses Diagnosis Cardiomyopathy, primary Other primary cardiomyopathies documented in this encounter Care Teams School Physical Therapist Relationship Specialty Start Date End Date Donny Cooper MD [address] [facility] [address] [place] [address] PCP - General Family Medicine 02/25/19 documented as of this encounter
--- OUTSIDE RECORDS SUMMARY | 2024-03-22 08:26 | XMS_ITS | Encounter Summary ---
[place] [address] Care Team Providers Care Lighthouse Keeper Name Role Phone Donny Cooper MD Primary Care Provider [phone] Encounter Details Date Type Department Care Team (Latest Contact Info) Description 04/08/2022 10:00 AM EST - 04/08/2022 11:59 PM [facility] Hospital Encounter [place] [address] Discharge Disposition: Home Social History Tobacco Use [...] AM EST Hospital Encounter Non-[place] [address] Arrived documented as of this [...] on filedocumented in this encounter Care Teams Lighthouse Keeper Relationship Specialty Start Date End Date Donny Cooper MD [address] [place] [address] PCP - General Family Medicine 02/25/19 documented as of this encounter
--- OUTSIDE RECORDS SUMMARY | 2024-03-22 08:26 | XMS_ITS | Encounter Summary ---
Author Organization [facility] Address [address] [place] [address] Care Team Providers Care Yard Loader Operator Name Role Phone Unknown, Provider Primary Care Provider Clem Alcala MD Primary Care Provider [phone] Encounter Details Date Type Department Care Team (Late st Contact Info) Description 11/29/2015 Pre-Procedure [facility] [address] [place], [place] [address] Navdeep Hurd MD [address] [place] [address] [address] Social History Tobacco Use Types [...] upper extremity venogram Date: 12/20/2015 Patient: Ferdinand Nabli Boo. Attending: Dr. Dean Bailey Electrical Project Engineer: Dr. Fantasma Dhillon History/indication: The patient [...] Nabil Streeter Attending: Dr. Dean Bailey Electrical Project Engineer: Dr. Fantasma Dhillon History/indication: The patient [...] on filedocumented in this encounter Care Teams Yard Loader Operator Relationship Specialty Start Date End Date Unknown, Provider, PCP - General 12/06/12 12/17/15 Clem Olvera MD [address] [place] [address] PCP - General 12/18/15 documented as of this encounter
--- OUTSIDE RECORDS SUMMARY | 2024-03-22 08:26 | XMS_ITS | Encounter Summary ---
[place] [address] Care Team Providers Care Police Captain Senior Name Role Phone Donny Cooper MD Primary Care Provider [phone] Encounter Details Date Type Department Care Team (Latest Contact Info) Description 07/02/2023 10:00 AM EST - 07/02/2023 11:59 PM EST Hospital Encounter Non-In[place] [address] Discharge Disposition: Home Social History Tobacco Use [...] Contact Info) Description 05/02/2024 10:00 AM [facility] Hospital Encounter Non-Invasive [place] [address] Arrived documented as of this encounter Visit Diagnoses Not on filedocumented in this encounter Care Teams Police Captain Senior Relationship Specialty Start Date End Date Donny Cooper MD [address] [place] [address] PCP - General Family Medicine 02/25/19 documented as of this encounter
--- OUTSIDE RECORDS SUMMARY | 2024-03-22 08:26 | XMS_ITS | Encounter Summary ---
Author Organization [facility] Address [address] [place] [address] Care Team Providers Care Inspector Barrel Name Role Phone Clem Olvera MD Primary Care Provider [phone] Encounter Details Date Type Department Care Team (Late st Contact Info) Description 03/16/2019 Abstract [facility] Cardiology Clinic [address] [place] [address] Ronal Avelar RN AV block, 2nd degree [...] Laterality Modality Device Narrative 03/24/2019 10:30 EST [facility] Cardiology Device Visit Specialty Therapist: [employer] Device Type: ACUPRESSURIST-D Service: Remote ? 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
--- OUTSIDE RECORDS SUMMARY | 2024-03-22 08:26 | XMS_ITS | Encounter Summary ---
[facility] Organization [facility] [place] [address] Care Team Providers Care Stone Breaker Name Role Phone Donny Cooper MD Primary Care Provider [phone] Encounter Details Date Type Department Care Team (Latest Contact Info) Description 10/03/2022 10:00 AM EDT Office Visit Cardiology at [address] [address] Eleno No, [place] [facility] [place] [address] Cardiomyopathy, primary; Presence of cardiac resynchronization therapy defibrillator (ROVING CHANGER-D); Diaphragmatic stimulation by cardiac pacemaker, initial encounter [...] original note were not included. Cardiac Device ROVING CHANGER-D Programming Evaluation Nabil Iglesias [id number] 10/03/2022 History: Mr. 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 [...] AM EST Hospital Encounter Non[place] [address] Arrived documented as of this encounter Procedures Procedure Name Priority Date/Time Associated Diagnosis Comments EKG 12-LEAD Routine 10/03/2022 11:00 AM EDT Cardiomyopathy, primary Presence of cardiac resynchronization therapy defibrillator (ROVING CHANGER-D) Diaphragmatic stimulation by cardiac pacemaker, initial encounter documented in this encounter Results * EKG 12 Lead (10/03/2022 11:00 AM EDT) Ventricular rate 74 BPM MUSE SYSTEM Atrial Rate 74 BPM MUSE SYSTEM P-R Interval 154 ms MUSE SYSTEM QRS Duration 162 ms MUSE SYSTEM Q-T Interval 470 ms MUSE SYSTEM QTC Calculated (Bezet) 521 ms MUSE SYSTEM Calculated P Traphill 30 degrees MUSE SYSTEM Calculated R Traphill -98 degrees MUSE SYSTEM Calculated T Traphill 41 degrees MUSE SYSTEM INTERPRETATION Atrial-sense d [...] cardiomyopathies Presence of cardiac resynchronization therapy defibrillator (ROVING CHANGER-D) Diaphragmatic stimulation by cardiac pacemaker, initial encounter documented in this encounter Care Teams Stone Breaker Relationship Specialty Start Date End Date Donny Cooper MD [address] [place] [address] PCP - General Family Medicine 02/25/19 documented as of this encounter
--- OUTSIDE RECORDS SUMMARY | 2024-03-22 08:27 | XMS_ITS | Encounter Summary ---
[place] [address] Care Team Providers Care Joss House Keeper Name Role Phone Donny Cooper MD Primary Care Provider [phone] Encounter Details Date Type Department Care Team (Late st Contact Info) Description 06/14/2020 Telephone Cardiology at [address] [phone] Nhung Briggs Social History Tobacco Use Types [...] He would like to be seen at [facility]. Email sent to Brittaney Hernandez at [facility] asking her to reach out to pt to set up the appt with either Dr. Arguelles or LANG Albert. Nhung Allen Electrophysiology Scheduling [id number] option 2 documented in this encounter Plan of Treatment Upcoming Encounters Date Type Department Care Team (Late st Contact Info) Description 05/02/2024 10:00 AM EST Hospital Encounter Non-[place] [address] Arrived documented as of this encounter Visit Diagnoses Not on filedocumented in this encounter Care Teams Joss House Keeper Relationship Specialty Start Date End Date Donny Cooper MD [address] [place] [address] PCP - General Family Medicine 02/25/19 documented as of this encounter
--- OUTSIDE RECORDS SUMMARY | 2024-03-22 08:27 | XMS_ITS | Encounter Summary ---
Author Organization [facility] [place] [place] [address] Care Team Providers Care Advertising Project Manager Name Role Phone Marques Martinez MD Primary Care Provider [phone] Encounter Details Date Type Department Care Team (Late st Contact Info) Description 06/12/2010 2:10 PM EST Office [place] [phone] Jairon Fenton MD [facility] [place] [address] Discharge Disposition: Home Social History Tobacco Use [...] Encounter Non-[place]vasive [place] [address] Arrived documented as of this encounter Visit Diagnoses Not on filedocumented in this encounter Care Teams Advertising Project Manager Relationship Specialty Start Date End Date Marques Martinez MD [address] [place] [address] PCP - General 04/01/10 04/08/11 documented as of this encounter
--- OUTSIDE RECORDS SUMMARY | 2024-03-22 08:27 | XMS_ITS | Encounter Summary ---
[place] [address] Care Team Providers Care Carbon Paste Mixer Operator Name Role Phone Donny Cooper MD Primary Care Provider [phone] Encounter Details Date Type Department Care Team (Late st Contact Info) Description 03/17/2019 Telephone Cardiology at [address] [address] Sheri Quinn LNA Social History [...] AM EST Medication list reviewed with [facility] list. Please review with patient at next clinic visit. documented in this encounter Plan of Treatment Upcoming Encounters Date Type Department Care Team (Late st Contact Info) Description 05/02/2024 10:00 AM EST Hospital Encounter Non-Invasive [place] [address] Arrived documented as of this encounter Visit Diagnoses Not on filedocumented in this encounter Care Teams Carbon Paste Mixer Operator Relationship Specialty Start Date End Date Donny Cooper MD [address] [place] [address] PCP - General Family Medicine 02/25/19 documented as of this encounter
--- OUTSIDE RECORDS SUMMARY | 2024-03-22 08:27 | XMS_ITS | Encounter Summary ---
Author Organization [facility] [place] [address] Care Team Providers Care Drill Setup Operator Name Role Phone Donny Cooper MD Primary Care Provider [phone] Encounter Details Date Type Department Care Team (Latest Contact Info) Description 06/13/2020 12:35 PM EST - 06/13/2020 11:59 PM EST Hospital Encounter Non[place] [address] Alber Seals MD [facility] [place] [address] Cardiomyopathy, primary Discharge Disposition: Home Social History [...] AM EST Hospital Encounter Non-[place] [address] Arrived documented as of this encounter Procedures Procedure Name Priority Date/Time Associated Diagnosis Comments ICD INTERROGATION 3 MONTH Routine 06/13/2020 12:36 PM EST Cardiomyopathy, primary documented in this encounter Results * ICD INTERROGATION 3 MONTH (06/13/2020 12:36 PM EST) Anatomical Region Laterality Modality Other Narrative 06/14/2020 10:38 AM EST Cardiac Device Remote Monitoring Report Summary Medtronic MedAvail 06/14/20 Device: DEVELOPING MACHINE TENDER-D Model: VIVA QUAD Battery: 2.96 v, estimated longevity 3 years, 11 months Pacing percentage: 78% ventricular paced Events: The presenting rhythm is atrial paced with biventricular pacing and frequent ventricular premature contractions No significant arrhythmias Impression Normal device function; suboptimal DEVELOPING MACHINE TENDER pacing likely secondary to frequent PVCs. Should consider in clinic follow-up for further evaluation Follow Up As per schedule - in-clinic and remote ALBER SEALS MD Alber Seals MD IMPLANTABLE CARDIAC DEVICE documented in this encounter Visit Diagnoses Diagnosis Cardiomyopathy, primary Other primary cardiomyopathies documented in this encounter Care Teams Drill Setup Operator Relationship Specialty Start Date End Date Donny Cooper MD [address] [place] [address] PCP - General Family Medicine 02/25/19 documented as of this encounter
--- OUTSIDE RECORDS SUMMARY | 2024-03-22 08:27 | XMS_ITS | Encounter Summary ---
Author Organization [facility] [place] [address] Care Team Providers Care Maintenance Shop Laborer Name Role Phone Marques Martinez MD Primary Care Provider [phone] Encounter Details Date Type Department Care Team (Late st Contact Info) Description 10/09/2010 11:35 AM EDT - 10/09/2010 11:59 PM EDT Hospital Encounter XRay at [address] [place] [address] Social History Tobacco Use Types [...] Hospital Encounter Non-Invasive Cardiology Lab [facility] [place] [address] Arrived documented as of this encounter Visit Diagnoses Not on filedocumented in this encounter Care Teams Maintenance Shop Laborer Relationship Specialty Start Date End Date Marques Martinez MD [address] [place] [address] PCP - General 04/01/10 04/08/11 documented as of this encounter
--- OUTSIDE RECORDS SUMMARY | 2024-03-22 08:27 | XMS_ITS | Encounter Summary ---
[place] [address] Care Team Providers Care Carbon Brusher Assembler Name Role Phone Marques Martinez MD Primary Care Provider [phone] Encounter Details Date Type Department Care Team (Late st Contact Info) Description 10/03/2010 Abstract [place] [address] Marina Orosco, JADON Social History Tobacco Use [...] [facility] Hospital Encounter Non-[place] [address] Arrived documented as of this encounter Visit Diagnoses Not on filedocumented in this encounter Care Teams Carbon Brusher Assembler Relationship Specialty Start Date End Date Marques Martinez MD [address] [place] [address] PCP - General 04/01/10 04/08/11 documented as of this encounter
--- OUTSIDE RECORDS SUMMARY | 2024-03-22 08:27 | XMS_ITS | Encounter Summary ---
Author Organization [facility] [place] [address] Care Team Providers Care Social Media Executive Name Role Phone Marques Martinez MD Primary Care Provider [phone] Encounter Details Date Type Department Care Team (Late st Contact Info) Description 03/30/2010 [place] [address] Javier Barajas MD [facility] [place] [address] Social History Tobacco Use Types Packs/Day Years [...] AM EST Hospital Encounter Non-[place] [address] Arrived documented as of this encounter Procedures [...] AM EST Jairon Fenton MD [facility]STRY [facility]ABLES [facility] * (ABNORMAL) CREATININE, SERUM (04/01/2010 6:09 [...] MD CHEMISTRY ORDERABLES Performing Organization Address [facility] de Phone Number CERNER CHRISTOSENNIUM * BUN (04/01/2010 6:09 AM EST) Blood Urea Nitrogen 12 10 - 20 mg/dL [facility] MILLENNIUM Blood specimen (specimen) 04/01/2010 6:09 AM EST 04/01/2010 6:09 AM EST Jairon Fenton MD CHEMISTRY ORDERABLES Performing Organization Address [facility] de Phone Number CERNER CHRISTOSENNIUM * [...] HEMATOLOGY ORDERABLE S Performing Organization Address [facility] de Phone Number CERIVIS MILLENNIUM * [...] MD CHEMISTRY ORDERABLES Performing Organization Address [facility] Phone Number CERIVIS MILLENNIUM * ELECTROLYTE [...] MD CHEMISTRY ORDERABLES Performing Organization Address [facility] Co de Phone Number CERIVIS MILLENNIUM * CREATININE, SERUM (03/30/2010 6:05 PM EST) Creatinine 0.87 0.80 - 1.50 mg/dL [facility] Est Glomerular Filtration Rate >60 >=60 [facility] Comment: The National Kidney Disease [...] Urea Nitrogen 18 10 - 20 mg/dL [facility] Blood specimen (specimen) 03/30/2010 6:05 PM EST 03/30/2010 6:13 PM EST Jairon Fenton MD CHEMISTRY ORDERABLES Performing Organization Address [facility] de Phone Number DEJA MOSQUEDAIUM * APTT (03/30/2010 6:05 PM EST) Partial Thromboplastin Time 26 25 - 37 sec CERNER MILLENNIUM Comment: Recommended therapeutic PTT range for full dose unfractionated heparin is 80-114 seconds. Blood specimen (specimen) 03/30/2010 6:05 PM EST 03/30/2010 6:14 PM EST Jairon Fenton MD HEMATOLOGY ORDERABLE S Performing Organization Address [facility] Phone Number DEJA SEGOVIA * PROTIME-INR (03/30/2010 6:05 PM EST) Prothrombin Time 14.2 12.3 - 14.7 sec [facility] Comment: [facility] Transfusion Committee Guidelines: INR less than 2.0, PTT less than OR equal to 43.5 seconds, or Fibrinogen greater than or equal to 100 mg/dl indicate adequate procoagulant activity for hemostasis in patients without underlying bleeding disorders. International Normalization Ratio 1.1 0.9 - 1.1 [facility] Blood specimen (specimen) 03/30/2010 6:05 PM EST 03/30/2010 6:14 PM EST Jairon Fenton MD HEMATOLOGY ORDERABLE S Performing Organization Address [facility] de Phone Number DEJA SEGOVIA * [...] Standard Deviation 44.2 35.0 - 46.0 fL [facility] RDW coefficient of variation 13.1 10.9 - 14.4 % [facility] Mean Platelet Volume 10.6 9.0 - 12.0 fL [facility] Blood specimen (specimen) 03/30/2010 6:05 PM EST 03/30/2010 6:13 PM EST Jairon Fenton MD HEMATOLOGY ORDERABLE S Performing Organization Address City/[facility] Co de Phone Number [facility] * REFLEX LAB-ANTIBODY SCREEN (03/30/2010 3:17 PM EST) [facility] Ab Screen Interp Negative [facility] Expires at [id number] on: [id number] [facility] Blood specimen (specimen) 03/30/2010 3:17 PM EST 03/30/2010 3:17 PM EST Javier Barajas MD BLOOD BANK LAB ORDER PRECIOUS Performing Organization Address [facility] Co de Phone Number [facility] * REFLEX LAB-ABO/RH (03/30/2010 3:17 PM EST) [facility] ABORH Type A Pos [facility] Blood specimen (specimen) 03/30/2010 3:17 PM EST 03/30/2010 3:17 PM EST Javier Barajas MD BLOOD BANK LAB ORDER PRECIOUS Performing Organization Address [facility] Co de Phone Number [facility] * ELECTROLYTE PANEL (03/30/2010 2:50 PM EST) [facility] Sodium 135 135 - 145 mmol/L [facility] Potassium 4.3 3.5 - 5.0 mmol/L [facility] Comment: Please note: ??Patients with WBC [...] PM EST Javier Barajas MD CHEMISTRY ORDERABLES [facility] * CREATININE, SERUM (03/30/2010 2:50 [...] MD CHEMISTRY ORDERABLES Performing Organization Address [facility] Phone Number [facility] * BUN (03/30/2010 2:50 PM EST) Blood Urea Nitrogen 18 10 - 20 mg/dL [facility] Blood specimen (specimen) 03/30/2010 2:50 PM EST 03/30/2010 3:05 PM EST Javier Barajas MD CHEMISTRY ORDERABLES Performing Organization Address [facility] Phone Number [facility] * GLUCOSE, RANDOM (03/30/2010 2:50 PM EST) Glucose 95 <=199 mg/dL [facility] Comment:Diabetes: >=200 mg/d L plus symptoms Blood specimen (specimen) 03/30/2010 2:50 PM EST 03/30/2010 3:05 PM EST Javier Barajas MD CHEMISTRY ORDERABLES Performing Organization Address [facility] Phone Number [facility] * APTT (03/30/2010 2:50 PM EST) Partial Thromboplastin Time 25 25 - 37 sec [facility] Comment: Recommended therapeutic PTT range for full dose unfractionated heparin is 80-114 seconds. Blood specimen (specimen) 03/30/2010 2:50 PM EST 03/30/2010 3:06 PM EST Javier Barajas MD HEMATOLOGY ORDERABLE S Performing Organization Address [facility] Phone Number [facility] * PROTIME-INR (03/30/2010 2:50 PM EST) Prothrombin Time 14.1 12.3 - 14.7 sec [facility] Comment: [facility] Transfusion Committee Guidelines: INR less than [...] in this encounter Care Teams Social Media Executive Relationship Specialty Start Date End Date Marques Martinez MD [address] [place] [address] PCP - General 04/01/10 04/08/11 documented as of this encounter
--- OUTSIDE RECORDS SUMMARY | 2024-03-22 08:27 | XMS_ITS | Encounter Summary ---
Author Organization [facility] [place] [address] Care Team Providers Care Public Improvement Inspector Name Role Phone Marques Martinez MD Primary Care Provider [phone] Reason for Visit * Reason Comments Follow Up Fracture PATELLA FX DOI 03/23 10 Encounter Details Date Type Department Care Team (Late st Contact Info) Description 10/09/2010 12:40 PM EDT Office [place] [address] Jairon Gustafson MD [facility] [place] [address] Jose Francisco Bee PA [facility] [place] [address] Quadriceps tendon rupture (Primary Dx) Discharge Disposition: [...] [facility] Hospital Encounter Non-Invasive [place] [address] Arrived documented as of this encounter Visit Diagnoses Diagnosis Quadriceps tendon rupture- Primary Sprain and strain of other specified sites of knee and leg documented in this encounter Care Teams Public Improvement Inspector Relationship Specialty Start Date End Date Marques Martinez MD [address] [place] [address] PCP - General 04/01/10 04/08/11 documented as of this encounter
--- OUTSIDE RECORDS SUMMARY | 2024-03-22 08:27 | XMS_ITS | Encounter Summary ---
Author Organization [facility] [place] [address] Care Team Providers Care Support Merchandiser Name Role Phone Marques Martinez MD Primary Care Provider [phone] Encounter Details Date Type Department Care Team (Late st Contact Info) Description 09/11/2010 Orders [place] [address] Jairon Fenton MD [facility] [place] [address] Fracture of patella, left, closed (Primary Dx) [...] [facility] Hospital Encounter Non[place] [address] Arrived documented as of this encounter Visit Diagnoses Diagnosis Fracture of patella, left, closed- Primary Closed fracture of patella documented in this encounter Care Teams Support Merchandiser Relationship Specialty Start Date End Date Marques Martinez MD [address] [place] [address] PCP - General 04/01/10 04/08/11 documented as of this encounter
--- OUTSIDE RECORDS SUMMARY | 2024-03-22 08:27 | XMS_ITS | Encounter Summary ---
Author Organization [facility] [place] [address] Care Team Providers Care Record Tabulating Clerk Name Role Phone Marques Martinez MD Primary Care Provider [phone] Encounter Details Date Type Department Care Team (Late st Contact Info) Description 05/01/2010 3:10 PM EST Office [place] [phone] Jairon Fenton MD [facility] [address] [place] [address] Discharge Disposition: Home Social History Tobacco Use [...] AM EST Hospital Encounter Non[place] [address] Arrived documented as of this encounter Visit Diagnoses Not on filedocumented in this encounter Care Teams Record Tabulating Clerk Relationship Specialty Start Date End Date Marques Martinez MD [address] [place] [address] PCP - General 04/01/10 04/08/11 documented as of this encounter
--- OUTSIDE RECORDS SUMMARY | 2024-03-22 08:27 | XMS_ITS | Encounter Summary ---
[place] [address] Care Team Providers Care International Account Manager Name Role Phone Marques Martinez MD Primary Care Provider [phone] Encounter Details Date Type Department Care Team (Late st Contact Info) Description 05/01/2010 2:40 PM EST Procedure visit [facility] [address] Social History Tobacco Use Types Packs/Day Years [...] AM EST Hospital Encounter Non-Invasive [place] [address] Arrived documented as of this encounter Visit Diagnoses Not on filedocumented in this encounter Care Teams International Account Manager Relationship Specialty Start Date End Date Marques Martinez MD [address] [place] [address] PCP - General 04/01/10 04/08/11 documented as of this encounter
--- OUTSIDE RECORDS SUMMARY | 2024-03-22 08:27 | XMS_ITS | Encounter Summary ---
Author Organization [facility] [place] [address] Care Team Providers Care Feed Crusher Operator Name Role Phone Donny Cooper MD Primary Care Provider [phone] Encounter Details Date Type Department Care Team (Late st Contact Info) Description 07/26/2019 Notes Only Cardiology at [address] [address] Maged Arguelles MD [facility] [place] [address] Social History Tobacco Use Types Packs/Day Years [...] his Medtronic biventricular ICD is reviewed. Suboptimal BUSINESS MANAGER COLLEGE OR UNIVERSITY at 84%. Normal device function. Awaiting Holter to assess PVC burden. Maged Arguelles MD S Cardiac Electrophysiology 07/26/2019 9:04 AM documented in this encounter Plan of Treatment Upcoming Encounters Date Type Department Care Team (Late st Contact Info) Description 05/02/2024 10:00 AM EST Hospital Encounter Non-Invasive [place] [address] Arrived documented as of this encounter Visit Diagnoses Not on filedocumented in this encounter Care Teams Feed Crusher Operator Relationship Specialty Start Date End Date Donny Cooper MD [address] [place] [address] PCP - General Family Medicine 02/25/19 documented as of this encounter
--- OUTSIDE RECORDS SUMMARY | 2024-03-22 08:27 | XMS_ITS | Encounter Summary ---
Author Organization [facility] [place] [address] Care Team Providers Care General Warehouse Worker Name Role Phone Clem Olvera MD Primary Care Provider [phone] Reason for Visit * Reason Comments Follow Up Fracture SP PATELLA FX DO12/12 DOI 03/30/10 Encounter Details Date Type Department Care Team (Late st Contact Info) Description 04/09/2011 1:30 PM EST Office [place] [address] Jairon Gustafson MD [facility] [place] [address] Jose Francisco Bee PA [facility] [place] [address] Patella fracture (Primary Dx) Discharge Disposition: Home [...] AM EST Hospital Encounter Non-[place] [address] Arrived documented as of this encounter Visit Diagnoses Diagnosis Patella fracture- Primary Closed fracture of patella documented in this encounter Care Teams General Warehouse Worker Relationship Specialty Start Date End Date Clem Olvera MD [address] [place] [address] PCP - General 04/09/11 02/24/19 documented as of this encounter
[2024-03-22 08:40] VITALS: BP 115/64; PULSE 76
--- OUTSIDE RECORDS SUMMARY | 2024-03-24 08:00 | XMS_ITS | Encounter Summary ---
Author Organization [facility] Address [address] [place] [address] Care Team Providers Care Ink Printer Name Role Phone Clem Olvera MD Primary Care Provider [phone] Reason for Visit * Reason Onset Date Comments Appointment Related 10/23/2016 Check for fo llow up of pacer Encounter Details Date Type Department Care Team ([facility] st Contact Info) Description 10/23/2016 Telephone [facility] Cardiology - [address] [place] [address] Pacemaker, Pace Appointment Related (Check [...] of Assessment Author No 02/27/2016 14:17 Tea Prakahs RN * Do you have difficulty dressing [...] Telephone Encounter - Pushpa Shay - 10/23/2016 7507 EDT Spoke with Mrs. Iglesias who stated that Nabil had his pacemaker checked in [place] where they are for the winter. They have some back and are being followed by Dr. Hurd at [facility]. documented in this encounter Plan of Treatment Not on file documented as of this encounter Visit Diagnoses Not on filedocumented in this encounter Care Teams Ink Printer Relationship Specialty Start Date End Date Clem Olvera MD [address] [place] [address] PCP - General 12/18/15 documented as of this encounter
--- OUTSIDE RECORDS SUMMARY | 2024-03-24 08:00 | XMS_ITS | Encounter Summary ---
Author Organization [facility] Address [address] [place] [address] Care Team Providers Care Buckle Sewer Name Role Phone Clem Olvera MD Primary Care Provider [phone] Reason for Referral * Cardiology (3 - [...] Expiration Date Visits Re quested Visits Authorized [id number] Closed 02/13/2016 1 1 Encounter Details Date Type Department Care Team (Latest Contact Info) Description 02/13/2016 Pre-Procedure Orders Encounter [facility] [address] [place], [place] [address] Navdeep Hurd MD [address] [place] [address] [phone] ICD (implantable cardioverter-defibril lator) battery depletion (Primary [...] EDT Narrative 02/27/2016 15:17 EDT *Cardiology* [address] [place] [address] Lead Revision (Report amended ) Patient: Nabil Iglesias ?Study Date: ?02/27/2016 ? Accession #: ? [id number] : ? 1940 Referring: Clem Olvera Attending: [...] glide wire a Nick MENDOZAW 6F ([facility]) 6 mm-40 mm balloon dilation still [...] Venograms were performed in the MOORE and MALTESE projections and a suitable mid-lateral LV branch [...] fascia. The leads were connected to a TAPE DUPLICATOR-D device. Device and Lead detail in table [...] Implanted device: Medtronic - Viva Quad XT TAPE DUPLICATOR-D DF4 - Serial number: [id number] Explanted device: Medtronic - Viva XT TAPE DUPLICATOR-D DF4 - Serial number: [id number]. LEAD PARAMETERS + + + + + [...] ? Medtronic ? Enpath ? information ?? 4797 ? 6934M ? Attain ? Epicardial ? Performa 4298 ? + + + + + + Serial number [id number] ? [id number] ?? [id number] ?? [id number] ? + + + + [...] Note Gulshan Drummond MD - 05/12/2016 *Cardiology* [address] [place] [address] Lead Revision (Report amended ) Patient: Nabil [...] therefore over an 0.35 glide wire a [place] OTW 6F ([facility]) 6 mm-40 mm balloon dilation still [...] Venograms were performed in the MOORE and MALTESE projections and a suitable mid-lateral LV branch [...] fascia. The leads were connected to a TAPE DUPLICATOR-D device. Device and Lead detail in table [...] topical skin adhesive. IMPLANTED HARDWARE: Implanted device: [employer] - Viva Quad XT TAPE DUPLICATOR-D DF4 - Serial number: [id number] Explanted device: Medtronic - Viva XT TAPE DUPLICATOR-D DF4 - Serial number: [id number]. LEAD PARAMETERS + + + + + [...] + + + + + Serial number [id number] + + + + + + [...] situ documented in this encounter Care Teams Buckle Sewer Relationship Specialty Start Date End Date Clem Olvera MD [address] [place] [address] PCP - General 12/18/15 documented as of this encounter
--- OUTSIDE RECORDS SUMMARY | 2024-03-24 08:00 | XMS_ITS | Encounter Summary ---
[place] [address] Care Team Providers Care Deer Farmer Name Role Phone Donny Cooper MD Primary Care Provider [phone] Encounter Details Date Type Department Care Team [...] [facility] Hospital Encounter Non-Invasive [place] [address] Arrived documented as of this encounter Visit Diagnoses Not on filedocumented in this encounter Care Teams Deer Farmer Relationship Specialty Start Date End Date Donny Cooper MD [address] [place] [address] PCP - General Family Medicine 02/25/19 documented as of this encounter
--- OUTSIDE RECORDS SUMMARY | 2024-03-24 08:00 | XMS_ITS | Encounter Summary ---
Author Organization [facility] Address [address] [place] [address] Care Team Providers Care Account Services Representative Name Role Phone Unavailable Primary Care Provider Unavailabl e Encounter Details Date Type Department Care Team (Late st Contact Info) Description 05/06/2001 Results Only [facility] [address] [place] [address] Hernandez Partida MD [address] [place] [phone] Social History Tobacco Use Types Packs/Day Years [...] is submitted entirely in cassette (B). ??(Naty Caal)/[facility] End of Report [facility] 05/06/2001 05/07/2001 9:2 5 EST us Hernandez Partida MD PATHOLOGY ORDERABLES Final Res ult [facility] [address] [place] [address] documented in this encounter Visit Diagnoses Not on filedocumented in this encounter
--- OUTSIDE RECORDS SUMMARY | 2024-03-24 08:00 | XMS_ITS | Referral Summary ---
Author Organization [facility] Address [address] [place] [address] Care Team Providers Care Exerciser Horse Name Role Phone Clem Olvera MD Primary Care Provider [phone] Allergies No known active allergies Medications atorvastatin [...] Advance Directives For more information, please contact: [phone] * Full Code (Latest Code Status on File) Date Activated Date Inactivated Comments 02/27/2016 8:49 02/28/2016 15:40 Question Answer Comments Reason for decision includes: Full code consistent with overall plan of care Who participated in the discussion? Not Discusse d Care Teams Exerciser Horse Relationship Specialty Start Date End Date Clem Olvera MD [address] [place] [address] PCP - General 12/18/15
--- OUTSIDE RECORDS SUMMARY | 2024-03-24 08:00 | XMS_ITS | Encounter Summary ---
Author Organization [facility] Address [address] [place] [address] Care Team Providers Care Poultry Dressing Worker Name Role Phone Clem Olvera MD Primary Care Provider [phone] Encounter Details Date Type Department Care Team (Late st Contact Info) Description 03/16/2019 Abstract [facility] Cardiology Clinic [address] [place] [address] Ronal Avelar RN AV block, 2nd degree [...] [place] [facility] [place] Card[facility] Device Visit Product Development Manager: [employer] Device Type: HOME HEALTH RN-D Service: Remote ? 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
--- OUTSIDE RECORDS SUMMARY | 2024-03-24 08:00 | XMS_ITS | Encounter Summary ---
Author Organization [facility] Address [address] [place] [address] Care Team Providers Care Logistics Clerk Name Role Phone Unavailable Primary Care Provider Unavailabl e Encounter Details Date Type Department Care Team (Late st Contact Info) Description 12/02/2012 Results Only [facility] Laboratory Services - [facility] ([facility] [address] [place] [id number] Satinder Edwards MD [address] [place] [id number] Social History Tobacco Use Types Packs/Day Years [...] Name: ? ABDIAZIZCHARMAINE ? Accession #: ? [id number] ? : ? 1940 (Age: 72) ??M [...] Sanchez 12/03/2012 08:11 AM End of Report [facility] 12/02/2012 16:5 1 EDT 12/02/2012 16:51 EDT us Satinder Edwards MD PATHOLOGY ORDERABLES Final Result [facility] [address] [place] [address] documented in this encounter Visit Diagnoses Not on filedocumented in this encounter
--- OUTSIDE RECORDS SUMMARY | 2024-03-24 08:00 | XMS_ITS | Clinical Summary ---
Author Organization [facility] Address [address] [place] [address] Care Team Providers Care Aeronautical Design Engineer Name Role Phone Clem Olvera MD Primary Care Provider [phone] Allergies No known active allergies Medications atorvastatin [...] INSERTION 05/04/2002 - 05/03/20032013 second pacemaker [facility] Medical History Medical History Date Comments CAD [...] 2024 [place] [id number] Advance Directives For more information, please contact: [phone] * Full Code (Latest Code Status on File) Date Activated Date Inactivated Comments 02/27/2016 8:49 02/28/2016 15:40 Question Answer Comments Reason for decision includes: Full code consistent with overall plan of care Who participated in the discussion? Not Discusse d Care Teams Aeronautical Design Engineer Relationship Specialty Start Date End Date Clem Olvera MD [address] [place] [address] PCP - General 12/18/15
--- OUTSIDE RECORDS SUMMARY | 2024-03-24 08:00 | XMS_ITS | Encounter Summary ---
[place] [address] Care Team Providers Care Web Methods Developer Name Role Phone Donny Cooper MD Primary Care Provider [phone] Encounter Details Date Type Department Care Team (Late st Contact Info) Description 01/05/2024 Telephone Cardiology at [address] [address] Kanika Shell Social History Tobacco [...] AM EST Hospital Encounter Non-[place] [address] Arrived documented as of this encounter Visit Diagnoses Not on filedocumented in this encounter Care Teams Web Methods Developer Relationship Specialty Start Date End Date Donny Cooper MD [address] [place] [address] PCP - General Family Medicine 02/25/19 documented as of this encounter
--- OUTSIDE RECORDS SUMMARY | 2024-03-24 08:00 | XMS_ITS | Encounter Summary ---
[place] [address] Care Team Providers Care Phototypesetting Equipment Monitor Name Role Phone Donny Cooper MD Primary Care Provider [phone] Encounter Details Date Type Department Care Team (Latest Contact Info) Description 07/02/2023 10:00 AM EST - 07/02/2023 11:59 PM EST Hospital Encounter [place] [address] Discharge Disposition: Home Social History Tobacco Use [...] [facility] Hospital Encounter Non[place] [address] Arrived documented as of this encounter Visit Diagnoses Not on filedocumented in this encounter Care Teams Phototypesetting Equipment Monitor Relationship Specialty Start Date End Date Donny Cooper MD [address] [place] [address] PCP - General Family Medicine 02/25/19 documented as of this encounter
--- OUTSIDE RECORDS SUMMARY | 2024-03-24 08:00 | XMS_ITS | Encounter Summary ---
[place] [address] Care Team Providers Care Defense Attorney Name Role Phone Donny Cooper MD Primary Care Provider [phone] Encounter Details Date Type Department Care Team (Latest Contact Info) Description 11/04/2023 10:00 AM EDT - 11/04/2023 11:59 PM EDT Hospital Encounter Non-[place] [address] Discharge Disposition: Home Social History Tobacco Use [...] [facility] Encounter [place] [address] Arrived documented as of this [...] on filedocumented in this encounter Care Teams Defense Attorney Relationship Specialty Start Date End Date Donny Cooper MD [address] [place] [address] PCP - General Family Medicine 02/25/19 documented as of this encounter
--- OUTSIDE RECORDS SUMMARY | 2024-03-24 08:00 | XMS_ITS | Encounter Summary ---
Author Organization [facility] Address [address] [place] [address] Care Team Providers Care Quality Assurance Clerk Name Role Phone Clem Olvera MD Primary Care Provider Reason for Visit * Reason Onset Date Comments Other 04/04/2019 Transfer request [place] Pac[place] [facility] Encounter Details Date Type Department Care Team (Late st Contact Info) Description 04/04/2019 Telephone [facility] Cardiology Clinic [address] [place] [address] Giselle Hill, MECHANIC SOUND TECHNICIAN Other (Transfer request for Pacer Care at [facility] Social History Tobacco Use Types Packs/Day Years [...] 04/04/2019 1503 EST I went into the [employer] Website and released pt to [facility] as requested. * Telephone Encounter - Suze Reynoso - 04/04/2019 1342 EST PT WILL BE HAVING HIS PACER CARE DONE AT [facility], PLEASE RELEASE HIS REMOTE MONITORING SO THAT THEY CAN PICK IT UP documented in this encounter Plan of Treatment Not on file documented as of this encounter Visit Diagnoses Not on filedocumented in this encounter Care Teams Quality Assurance Clerk Relationship Specialty Start Date End Date Clem Olvera MD [address] [place] [address] PCP - General 12/18/15 documented as of this encounter
--- OUTSIDE RECORDS SUMMARY | 2024-03-24 08:00 | XMS_ITS | Encounter Summary ---
[place] [address] Care Team Providers Care Credit Representative Name Role Phone Donny Cooper MD Primary Care Provider [phone] Encounter Details Date Type Department Care Team (Latest Contact Info) Description 01/03/2023 10:00 AM EDT - 01/03/2023 11:59 PM EDT Hospital Encounter [place] [address] Discharge Disposition: Home Social History Tobacco Use [...] [facility] Hospital Encounter [place] [address] Arrived documented as of this [...] on filedocumented in this encounter Care Teams Credit Representative Relationship Specialty Start Date End Date Donny Cooper MD [address] [place] [address] PCP - General Family Medicine 02/25/19 documented as of this encounter
--- OUTSIDE RECORDS SUMMARY | 2024-03-24 08:00 | XMS_ITS | Encounter Summary ---
[place] [address] Care Team Providers Care Signal Maintenance Technician Name Role Phone Donny Cooper MD Primary Care Provider [phone] Encounter Details Date Type Department Care Team (Latest Contact Info) Description 10/05/2022 10:00 AM EDT - 10/05/2022 11:59 PM EDT Hospital Encounter Non[place] [address] Discharge Disposition: Home Social History Tobacco Use [...] [facility] Hospital Encounter Non[place] [address] Arrived documented as of this [...] on filedocumented in this encounter Care Teams Signal Maintenance Technician Relationship Specialty Start Date End Date Donny Cooper MD [address] [place] [address] PCP - General Family Medicine 02/25/19 documented as of this encounter
--- OUTSIDE RECORDS SUMMARY | 2024-03-24 08:00 | XMS_ITS | Clinical Summary ---
Author Organization [facility] [place] [address] Care Team Providers Care Human Resource Internship Name Role Phone Donny Cooper MD Primary Care Provider [phone] Allergies No known active allergies Medications Medication [...] Team Description 03/18/2024 Notes Only Cardiology at [address] [phone] Marina Caballero APRN 02/02/2024 10:00 AM EDT - 02/02/2024 11:59 PM EDT Hospital Encounter Non-Invasive [place] [phone] Discharge Disposition: Home 01/05/2024 Telephone Cardiology at [address] [phone] Kanika Shell 12/28/2023 Notes Only Cardiology at [address] [phone] Kanika Shell from Last 3 Months Immunizations [...] Encounter Non-[place] [address] Arrived Health Maintenance Due Date [...] 03/06/2006, 02/24/2005 Medical Devices Implanted Type Area Cdl A Driver Device Identifier Shelf Expiration Date Model / Serial / Lot Mdt : [id number] : [id number] Implanted: (Quantity not on file) Cardiac Resynchronization Therapy - Defibrillator Chest Medtronic - [id number] / [id number] / Procedures Procedure Name Priority Date/Time Associated Diagnosis Comments CARDIAC DEVICE CHECK - REMOTE Routine 03/08/2024 6:26 AM EST from Last 3 Months Results * Cardiac Device Check - Remote (03/08/2024 6:26 AM EST) Anatomical Region Laterality Modality Other 03/08/2024 6:26 AM EST Alber Seals MD IMPLANTABLE CARDIAC DEVICE from Last 3 Months Care Teams Human Resource Internship Relationship Specialty Start Date End Date Donny Cooper MD [address] [place] [address] [address] [place], [place] [id number] PCP - General Family Medicine 02/25/19
--- OUTSIDE RECORDS SUMMARY | 2024-03-24 08:00 | XMS_ITS | Encounter Summary ---
[place] [address] Care Team Providers Care Proposal Development Manager Name Role Phone Donny Cooper MD Primary Care Provider [phone] Encounter Details Date Type Department Care Team (Late st Contact Info) Description 12/28/2023 Notes Only Cardiology at [address] [phone] Kanika Shell Social History Tobacco Use Types [...] [facility]ARE SERVICES Hospital Encounter Non-Invasive [place] [address] Arrived documented as of this encounter Visit Diagnoses Not on filedocumented in this encounter Care Teams Proposal Development Manager Relationship Specialty Start Date End Date Donny Cooper MD [address] [place] [address] PCP - General Family Medicine 02/25/19 documented as of this encounter
--- OUTSIDE RECORDS SUMMARY | 2024-03-24 08:00 | XMS_ITS | Encounter Summary ---
Author Organization [facility] Address [address] [place] [address] Care Team Providers Care Scanning Clerk Name Role Phone Clem Olvera MD Primary Care Provider [phone] Reason for Referral * (Routine) - Closed [...] [facility] at or , extension [phone]. For any scheduling of appointments, please call [phone] or , extension [phone]. . * (Routine) - Closed Specialty Diagnoses [...] Expiration Date V isits Requested Visits Authorized [id number] Closed Specialty Services Required 02/27/2016 1 1 [...] [facility] Center Cardiology is located at [facility] in [place] -Clinics are also held in [facility], [place], [place] and [facility]. If you live in those areas, we will make arrangements for follow-up appointments in one of those clinics.. Encounter Details Date Type Department Care Team (Late st Contact Info) Description 02/27/2016 6:30 EDT - 02/28/2016 13:39 EDT Hospital Encounter [facility] Cardiac/Telemetry Unit [address] [place] [address] Gulshan Drummond MD PhD [address] [facility], Level [address] [place] [phone] Gulshan Montoya Sa, MD [facility] [address] [place] [phone] AICD lead malfunction, subsequent encounter; ICD [...] around May 2013, when he was in [place], [place]. This triggered major cardiac workup including [...] then underwent a device upgrade to a ROTARY PEEL OVEN TENDER-D device with biventricular pacing for his [...] followed in cardiology outreach clinic at [facility] in [place]. Continued high pacing threshold on the epicardial [...] and plans to follow up with his Event Lighting Specialist in [place] in 6-8 weeks for which [...] Discharge Follow Up Appointments Scheduled with [facility] Appointments Outside of [facility] We Will Schedule Studies We Will Schedule Appointments We Recommend but have not been Scheduled Beatrice De La Garza NP 02/27/2016 10:59 Cosigned by Gulshan Montoya Sa, MD at 02/28/2016 15:19 EDT Associated attestation - Gulshan Montoya Sa, MD - 02/28/2016 6289 EDT Attending Attestation: I saw and evaluated the patient. I discussed the case with the resident/MEMBER OF THE LEGISLATIVE ASSEMBLY/fellow and agree with the findings and plan [...] Notes * Lou Alfonso, JADON - 02/28/2016 3554 EDT Pt awaiting discharge. IV and tele [...] agree to review this medication with his md physician dermatologist and plans to remain on his home dosing, which was in the morning. He received dose this am. Ptleft via wheelchair with . * Jennifer Beatrice - 02/28/2016 1329 EDT Brief visit with patient and as they were being discharged. Patient states he is independent in self care and home management. He feels well supported by friends and neighbors. Patient has Medicare and [facility]. Pharmacy is [facility] in [facility]. No needs identified at time of discharge. will provide transportation. Beatrice Rodriguez RN Case Manager #[id number] documented in this encounter H&P Notes * [...] around May 2013, when he was in [place], [place]. This triggered major cardiac workup including [...] point, his device was upgraded to a ROTARY PEEL OVEN TENDER-D device with biventricular pacing. By the [...] followed in cardiology outreach clinic at [facility] in [place]. Continued high pacing threshold on the epicardial LV lead has caused a very rapid battery depletion. Dr. David Adams in [place] recommended against lead extraction and reimplant as [...] ??? Pacemaker insertion 2002 2013 second pacemaker [facility] Social History Family History Social History Substance Use Topics ??? Smoking status: Former Smoker Years: 35.00 Quit date: 1989 ??? Smokeless tobacco: Not on file ??? Alcohol use 6.6 oz/week 6 Cans of beer, 5 Glasses of wine per week , lives with , retired. Spends leong in [place]. Spends the chery in [place], [place]. Quit smoking in 1990. Has 2 [...] point, his device was upgraded to a ROTARY PEEL OVEN TENDER-D device with biventricular pacing with a [...] Care - Mady Bruno RN - 02/27/2016 5899 EDT Problem: Daily Care Plan Goals Goal: [...] 03/12/2016 12:4 3 EST us Scan 2 Warp Splitter PROCEDURE/MINOR SURGICAL OR DERABLES Final Result * ECG REPORT - SCANNED (03/04/2016 14:06 EDT) 03/04/2016 14:0 6 EDT us Scan 2 Warp Splitter PROCEDURE/MINOR SURGICAL OR DERABLES Final Result * ECG REPORT - SCANNED (03/04/2016 14:06 EDT) 03/04/2016 14:0 6 EDT us Scan 2 Warp Splitter PROCEDURE/MINOR SURGICAL OR DERABLES Final Result * IMPLANT RECORD - SCANNED (03/04/2016 14:06 EDT) 03/04/2016 14:0 6 EDT us Scan 2 Warp Splitter PROCEDURE/MINOR SURGICAL OR DERABLES Final Result * ECG REPORT - SCANNED (03/01/2016 8:58 EDT) 03/01/2016 8:58 EDT us Scan 2 Warp Splitter PROCEDURE/MINOR SURGICAL OR DERABLES Final Result * ECG REPORT - SCANNED (03/01/2016 8:58 EDT) 03/01/2016 8:58 EDT us Scan 2 Warp Splitter PROCEDURE/MINOR SURGICAL OR DERABLES Final Result * [...] 9.84 4.0 - 10.4 K/cmm 02/28/2016 6:26 [facility] RBC 4.42 4.36 - 5.78 M/cmm 02/28/2016 6:26 [facility] Hemoglobin 14.2 13.8 - 17.3 gm/dl 02/28/2016 6:26 [facility] HCT 40.9 39.5 - 50.2 % 02/28/2016 6:26 [facility] MCV 93 81 - 95 fl 02/28/2016 6:26 [facility] MCH 32.1 27.6 - 33.0 pg 02/28/2016 6:26 [facility] MCHC 34.7 32.8 - 36.4 gm/dl 02/28/2016 6:26 [facility] RDW-CV 13.1 11.8 - 14.1 % 02/28/2016 6:26 EDT [facility] RDW-SD 44.6 36.5 - 45.9 fl 02/28/2016 6:26 EDT [facility] PLT 151 141 - 377 K/cmm 02/28/2016 6:26 EDT [facility] MPV 11.2 9.5 - 12.7 fl 02/28/2016 6:26 EDT [facility] Blood specimen (specimen) BLOOD SPECIMEN / Unknown 02/28/2016 5:44 EDT 02/28/2016 6:13 EDT Beatrice De La Garza MEMBER OF THE LEGISLATIVE ASSEMBLY HEMATOLOGY & PF4 ORDE RABLES Final Result Performing Organization Address City/[facility] Co de Phone Number [facility] [address] [place] [address] * (ABNORMAL) CREATININE (02/28/2016 5:44 EDT) Creatinine 0.65(L) 0.66 - 1.25 mg/dl 02/28/2016 6:48 EDT [facility] GFR, Calculated 95 >60 ml/min/1.7 3m2 02/28/2016 6:48 EDT [facility] Comment: eGFR calculated using CKD-EPI equation for non Americans. Multiply eGFR by 1.16 for Americans. Blood specimen (specimen) BLOOD SPECIMEN / Unknown 02/28/2016 5:44 EDT 02/28/2016 6:13 EDT Beatrice De La Garza NP CHEMISTRY & BLOOD GAS ORDERABLES Final Result Performing Organization Address City/[facility]/ZIP Co de Phone Number [facility] [address] [place] [address] * BUN (02/28/2016 5:44 EDT) BUN 14 10 - 26 mg/dl 02/28/2016 6:48 EDT [facility] Blood specimen (specimen) BLOOD SPECIMEN / Unknown 02/28/2016 5:44 EDT 02/28/2016 6:13 EDT Beatrice De La Garza MEMBER OF THE LEGISLATIVE ASSEMBLY CHEMISTRY & BLOOD GAS ORDERABLES Final Result Performing Organization Address [facility] Co de Phone Number [facility] [address] [place] [address] * ELECTROLYTES (02/28/2016 5:44 EDT) Sodium 138 136 - 145 mEq/L 02/28/2016 6:48 EDT [facility] Potassium 4.7 3.5 - 5.0 mEq/L 02/28/2016 6:48 EDT [facility] Chloride 104 96 - 110 mEq/L 02/28/2016 6:48 EDT [facility] CO2 25 22 - 32 mEq/L 02/28/2016 6:48 EDT [facility] Comment:Note new reference r hong 02/19/16 Blood specimen (specimen) BLOOD SPECIMEN / Unknown 02/28/2016 5:44 EDT 02/28/2016 6:13 EDT Result [facility] Beatrice De La Garza NP CHEMISTRY & BLOOD GAS ORDERABLES Final Result Performing Organization Address [facility] Co de Phone Number [facility] [address] [place] [address] * PORTABLE CHEST 1 VIEW (02/27/2016 12:46 [...] 12:41 EDT) 02/27/2016 12:4 1 EDT Narrative [facility] EKG - 02/28/2016 8:57 EDT ? [facility] ? Test Date: ?2016-02-27 Pat Name: ? NABIL IGLESIAS ? Department: ?? HERN[facility] 5 ? Room: ? MW514 Gender: ? M ?Architecture Instructor: ?? [id number] : ?1940 ? Requested By: KAIN Gallagher Order Number: [id number] ? Julia WRIGHT: ?? BRAYAN CUENCA MD ? Measurements Intervals ?[place] ? Rate: ? 63 ? P: ?15 [...] Date: 2016-02-27 Pat Name: NABIL IGLESIAS Department: [place] [address] Room: [facility] Gender: M Architecture Instructor: [id number] : 1940 Requested By: KAIN Gallagher Order Number: [id number] Reading MD: BRAYAN CUENCA MD Measurements Intervals [place] Rate: 63 P: 15 KS: 159 QRS: [...] OR DERABLES Final Result Performing Organization Address [facility] Co de Phone Number [facility] EKG * PROTIME (02/27/2016 8:45 EDT) Pro Time 12.3 10.3 - 13.1 secs 02/27/2016 9:10 EDT [facility] Comment: New prothrombin t josue range effective 01/29/16 I.N.R. 1.1 0.9 - 1.1 Ratio 02/27/2016 9:10 EDT [facility] Comment: Moderate Intensity Coumadin INR = 2.0-3.0 Adjustments in anticoagulant therapy dose should be based upon the INR and NOT the Pro Time. Blood specimen (specimen) BLOOD SPECIMEN / Unknown 02/27/2016 8:45 EDT 02/27/2016 8:54 EDT us Gulshan Drummond MD PhD HEMATOLOGY & P F4 ORDERABLES Final Result Performing Organization Address [facility] Co de Phone Number [facility] [address] [place] [address] * HEMAGRAM (02/27/2016 8:45 EDT) WBC 6.47 4.0 - 10.4 K/cmm 02/27/2016 8:57 EDT [facility] RBC 4.51 4.36 - 5.78 M/cmm 02/27/2016 8:57 T [facility] Hemoglobin 14.7 13.8 - 17.3 gm/dl 02/27/2016 8:57 EDT [facility] HCT 41.7 39.5 - 50.2 % 02/27/2016 8:57 EDT [facility] MCV 93 81 - 95 fl 02/27/2016 8:57 EDT [facility] MCH 32.6 27.6 - 33.0 pg 02/27/2016 8:57 EDT [facility] MCHC 35.3 32.8 - 36.4 gm/dl 02/27/2016 8:57 EDT [facility] RDW-CV 13.1 11.8 - 14.1 % 02/27/2016 8:57 EDT [facility] RDW-SD 44.0 36.5 - 45.9 fl 02/27/2016 8:57 EDT [facility] PLT 176 141 - 377 K/cmm 02/27/2016 8:57 EDT [facility] MPV 10.7 9.5 - 12.7 fl 02/27/2016 8:57 EDT [facility] Blood specimen (specimen) BLOOD SPECIMEN / Unknown 02/27/2016 8:45 EDT 02/27/2016 8:54 EDT us Gulshan Drummond MD PhD HEMATOLOGY & P F4 ORDERABLES Final Result Performing Organization Address City/[facility] Co de Phone Number [facility] [address] [place] [address] * ELECTROLYTES (02/27/2016 8:45 EDT) Sodium 142 136 - 145 mEq/L 02/27/2016 9:13 T [facility] Potassium 4.7 3.5 - 5.0 mEq/L 02/27/2016 9:13 T [facility] Chloride 103 96 - 110 mEq/L 02/27/2016 9:13 EDT [facility] CO2 27 22 - 32 mEq/L 02/27/2016 9:13 T [facility] Comment:Note new reference r hong 02/19/16 Blood specimen (specimen) BLOOD SPECIMEN / Unknown 02/27/2016 8:45 EDT 02/27/2016 8:54 EDT us Gulshan Drummond MD PhD CHEMISTRY & BL OOD GAS ORDERABLES Final Result Performing Organization Address City/[facility]/ZIP Co de Phone Number [facility] [address] [place] [address] * CREATININE (02/27/2016 8:45 EDT) Creatinine 0.69 0.66 - 1.25 mg/dl 02/27/2016 9:13 EDT [facility] GFR, Calculated 93 >60 ml/min/1.7 3m2 02/27/2016 9:13 EDT [facility] Comment: eGFR calculated using CKD-EPI equation for non Americans. Multiply eGFR by 1.16 for Americans. Blood specimen (specimen) BLOOD SPECIMEN / Unknown 02/27/2016 8:45 EDT 02/27/2016 8:54 EDT us Gulshan Drummond MD PhD CHEMISTRY & BL OOD GAS ORDERABLES Final Result Performing Organization Address City/[facility] Co de Phone Number [facility] [address] [place] [address] * BUN (02/27/2016 8:45 EDT) BUN 17 10 - 26 mg/dl 02/27/2016 9:13 EDT [facility] Blood specimen (specimen) BLOOD SPECIMEN / Unknown 02/27/2016 8:45 EDT 02/27/2016 8:54 EDT us Gulshan Drummond MD PhD CHEMISTRY & BL OOD GAS ORDERABLES Final Result Performing Organization Address City/[facility] Co de Phone Number [facility] [address] [place] [address] * EKG 12-LEAD (02/27/2016 8:08 EDT) 02/27/2016 8:08 EDT Narrative [facility] EKG - 02/28/2016 9:01 EDT ? [facility] ? Test Date: ?2016-02-27 Pat Name: ? NABIL IGLESIAS ? Department: ?? [facility] ? Room: ? [id number] Gender: ? M ?Architecture Instructor: ?? [id number] : ?1940 ? Requested By: MARCIA Boo Order Number: [id number] ? Reading MD: ?? BRAYAN CUENCA MD ? Measurements Intervals ?[place] ? Rate: ? 69 ? P: ?147 [...] Pat Name: NABIL IGLESIAS Department: [facility] Room: [id number] Gender: M Architecture Instructor: [id number] : 1940 Requested By: MARCIA Boo Order Number: [id number] Reading MD: BRAYAN CUENCA MD Measurements Intervals [place] Rate: 69 P: 147 KS: 134 QRS: -67 QRSD: 160 T: -59 QT: 434 QTc: 467 Interpretive Statements ELECTRONIC ATRIAL PACEMAKER ELECTRONIC VENTRICULAR PACEMAKER Compared to ECG 02/27/2016 08:08:46 No significant changes I reviewed the tracing and have either agreed or edited the findings inthis report. Electronically Signed On 02-28-16 09:01:04 EDT by BRAYAN BEEBE. Navdeep Hurd MD CARDIAC ECG ORDERABLES Final Result [facility] EKG documented in this encounter [...] Reason: Other - Comment: pt already took PERINATOLOGY PHYSICIAN, takes other meds at HS) 921 (Given [...] Reason: Other - Comment: pt already took PERINATOLOGY PHYSICIAN, takes other meds at HS)210 (Given - Provider: Mady Bruno, JADON) spironolactone (ALDACTONE) tablet 12.5 mg 12.5 mg, oral, DAILY, First dose on Thu02/27/16 at 1245, Until Discontinued, Routine 1306 (Not Given - Provider: Nneka Stuart RN - Reason: Other - Comment: pt already took PERINATOLOGY PHYSICIAN, takes other meds at HS)210 (Given - Provider: Mady Bruno RN) tamsulosin (FLOMAX) capsule 0.4 mg 0.4 mg, oral, DAILY, First dose on Thu02/27/16 at 1245, Until Discontinued, Routine 1306 (Not Given - Provider: Nneka Stuart RN - Reason: Other - Comment: pt already took PERINATOLOGY PHYSICIAN, takes other meds at HS) 09 (Given [...] 02/02 documented in this encounter Care Teams Scanning Clerk Relationship Specialty Start Date End Date Clem Olvera MD [address] [place] [address] PCP - General 12/18/15 documented as of this encounter
--- OUTSIDE RECORDS SUMMARY | 2024-03-24 08:00 | XMS_ITS | Encounter Summary ---
Author Organization [facility] [place] [address] Care Team Providers Care Assistant Director Of Financial Aid Name Role Phone Donny Cooper MD Primary Care Provider [phone] Encounter Details Date Type Department Care Team (Late st Contact Info) Description 03/18/2024 Notes Only Cardiology at [address] [address] Marina Caballero APRN [facility] [place] [address] Social History Tobacco Use Types Packs/Day Years [...] AM EST Hospital Encounter [place] [address] Arrived documented as of this encounter Visit Diagnoses Not on filedocumented in this encounter Care Teams Assistant Director Of Financial Aid Relationship Specialty Start Date End Date Donny Cooper MD [address] [place] [address] PCP - General Family Medicine 02/25/19 documented as of this encounter
--- OUTSIDE RECORDS SUMMARY | 2024-03-24 08:00 | XMS_ITS | Encounter Summary ---
Author Organization [facility] Address [address] [place] [address] Care Team Providers Care Recovery Operator Name Role Phone Unknown, Provider Primary Care Provider Clem Alcala MD Primary Care Provider [phone] Encounter Details Date Type Department Care Team (Late st Contact Info) Description 11/29/2015 Pre-Procedure Orders [facility]counter [facility] [address] [place], [place] [address] Navdeep Hurd MD [address] [place] [address] [address] Social History Tobacco Use Types [...] Ferdinand Nabil Boo. Attending: Dr. Dean Bailey Race Car Driver: Dr. Fantasma Dhillon History/indication: The patient is [...] Patient: Nabil Streeter Attending: Dr. Dean Bailey Race Car Driver: Dr. Fantasma Dhillon History/indication: The patient is [...] interpretation and agree with the findings. us Navdepe Hurd MD IMG IR ORDERABLES Final Result documented in this encounter Visit Diagnoses Not on filedocumented in this encounter Care Teams Recovery Operator Relationship Specialty Start Date End Date Unknown, Provider, PCP - General 12/06/12 12/17/15 Clem Olvera MD [address] [place] [address] PCP - General 12/18/15 documented as of this encounter
--- OUTSIDE RECORDS SUMMARY | 2024-03-24 08:00 | XMS_ITS | Encounter Summary ---
[place] [address] Care Team Providers Care Medical Office Assistant Instructor Name Role Phone Donny Cooper MD Primary Care Provider [phone] Encounter Details Date Type Department Care Team (Latest Contact Info) Description 08/06/2023 10:00 AM EDT - 08/06/2023 11:59 PM EDT Hospital Encounter [place] [address] Discharge Disposition: Home Social History Tobacco Use [...] CARE CENTER Hospital Encounter [place] [address] Arrived documented as of this encounter Visit Diagnoses Not on filedocumented in this encounter Care Teams Medical Office Assistant Instructor Relationship Specialty Start Date End Date Donny Cooper MD [address] [place] [address] PCP - General Family Medicine 02/25/19 documented as of this encounter
--- OUTSIDE RECORDS SUMMARY | 2024-03-24 08:00 | XMS_ITS | Encounter Summary ---
[place] [address] Care Team Providers Care Cardiovascular Specialist Name Role Phone Donny Cooper MD Primary Care Provider [phone] Encounter Details Date Type Department Care Team (Latest Contact Info) Description 02/02/2024 10:00 AM EDT - 02/02/2024 11:59 PM EDT Hospital Encounter [place] [address] Discharge Disposition: Home Social History Tobacco Use [...] MEDICAL CENTER Hospital Encounter [place] [address] Arrived documented as of this encounter Visit Diagnoses Not on filedocumented in this encounter Care Teams Cardiovascular Specialist Relationship Specialty Start Date End Date Donny Cooper MD [address] [place] [address] PCP - General Family Medicine 02/25/19 documented as of this encounter
--- OUTSIDE RECORDS SUMMARY | 2024-03-24 08:00 | XMS_ITS | Encounter Summary ---
[place] [address] Care Team Providers Care Director Of Compliance Name Role Phone Donny Cooper MD Primary Care Provider [phone] Encounter Details Date Type Department Care Team (Latest Contact Info) Description 04/03/2023 10:00 AM EST - 04/03/2023 11:59 PM [facility] Hospital Encounter [place] [address] Discharge Disposition: Home Social History Tobacco Use [...] HEALTH CENTER Hospital Encounter Non-[place] [address] Arrived documented as of this [...] in this encounter Care Teams Director Of Compliance Relationship Specialty Start Date End Date Donny Cooper MD [address] [place] [address] PCP - General Family Medicine 02/25/19 documented as of this encounter
--- OUTSIDE RECORDS SUMMARY | 2024-03-24 08:00 | XMS_ITS | Encounter Summary ---
Author Organization [facility] Address [address] [place] [address] Care Team Providers Care Sales Account Specialist Name Role Phone Clem Olvera MD Primary Care Provider [phone] Encounter Details Date Type Department Care Team (Latest Contact Info) Description 12/20/2015 10:52 EDT - 12/20/2015 23:52 EDT Hospital Encounter [facility] Cardiovascular Unit [address] [place] [address] Navdeep Hurd MD [address] [place] [address] [address] Discharge Disposition: Home or Self [...] no need to beNPO or have a boom truck driver. However, his will be accompanying him. They [place] to the airport [place] 1000 and then will come here and check-in around 1145. He agrees to have a shower. documented in this encounter Procedure Notes * Fantasma Dhillon MD - 12/20/2015 1356 EDT IR Brief Procedure Note Attending: Leo Resaw Feeder: Alejo Pre-op Dx: Arrhythmia, need for pacemaker [...] 12/19 documented in this encounter Care Teams Sales Account Specialist Relationship Specialty Start Date End Date Clem Olvera MD [address] [place] [address] PCP - General 12/18/15 documented as of this encounter
--- OUTSIDE RECORDS SUMMARY | 2024-03-24 08:01 | XMS_ITS | Encounter Summary ---
Author Organization [facility] [place] [address] Care Team Providers Care Employment Evaluator/Case Manager Name Role Phone Donny Cooper MD Primary Care Provider [phone] Encounter Details Date Type Department Care Team (Latest Contact Info) Description 12/18/2020 11:57 AM EDT - 12/18/2020 11:59 PM EDT Hospital Encounter [place] [address] Maged Arguelles MD [facility] [place] [address] Cardiomyopathy, primary Discharge Disposition: Home Social History [...] AM EST Hospital Encounter [place] [address] Arrived documented as of this encounter Procedures Procedure Name Priority Date/Time Associated Diagnosis Comments ICD INTERROGATION 3 MONTH Routine 12/18/2020 12:00 PM EDT Cardiomyopathy, primary documented in this encounter Results * ICD INTERROGATION 3 MONTH (12/18/2020 12:00 PM EDT) Anatomical Region Laterality Modality Other Narrative 12/23/2020 11:08 PM EDT MDT PLANOGRAMMER-D remote reviewed. Normal device function. Inadequate PLANOGRAMMER at 80%. Maged Arguelles MD [facility] Cardiac Electrophysiology 12/23/2020 11:06 PM Maged Arguelles MD IMPLANTABLE CARDIAC DEVICE documented in this encounter Visit Diagnoses Diagnosis Cardiomyopathy, primary Other primary cardiomyopathies documented in this encounter Care Teams Employment Evaluator/Case Manager Relationship Specialty Start Date End Date Donny Cooper MD [address] [facility] [address] [place] [address] PCP - General Family Medicine 02/25/19 documented as of this encounter
--- OUTSIDE RECORDS SUMMARY | 2024-03-24 08:01 | XMS_ITS | Encounter Summary ---
[facility] [place] [address] Care Team Providers Care Global Human Resources Director Name Role Phone Marques Martinez MD Primary Care Provider [phone] Encounter Details Date Type Department Care Team (Late st Contact Info) Description 03/30/2010 [place] [address] Javier Barajas MD [facility] [place] [address] Social History Tobacco Use Types Packs/Day Years [...] AM EST Hospital Encounter Non-Invasive [place] [address] Arrived documented as of this encounter Procedures [...] AM EST Jairon Fenton MD CHEMISTRY ORDERABLES [facility] * (ABNORMAL) CREATININE, SERUM (04/01/2010 6:09 AM [...] Fenton MD CHEMISTRY ORDERABLES Performing Organization Address [facility] de Phone Number CERNER CHRISTOSENNIUM * BUN (04/01/2010 6:09 AM EST) Blood Urea Nitrogen 12 10 - 20 mg/dL [facility] Blood specimen (specimen) 04/01/2010 6:09 AM EST 04/01/2010 6:09 AM EST Jairon Fenton MD CHEMISTRY ORDERABLES Performing Organization Address [facility] de Phone Number CERNER CHRISTOSENNIUM [...] MD HEMATOLOGY ORDERABLE S Performing Organization Address [facility] de Phone Number CERIVIS MILLENNIUM [...] Fenton MD CHEMISTRY ORDERABLES Performing Organization Address [facility] Phone Number CERIVIS MILLENNIUM * ELECTROLYTE PANEL [...] Fenton MD CHEMISTRY ORDERABLES Performing Organization Address [facility] Co de Phone Number CERIVIS MILLENNIUM * CREATININE, SERUM (03/30/2010 6:05 PM EST) Creatinine 0.87 0.80 - 1.50 mg/dL [facility] Est Glomerular Filtration Rate >60 >=60 [facility] SEGOVIA Comment: The National Kidney Disease Education [...] Nitrogen 18 10 - 20 mg/dL [facility] Blood specimen (specimen) 03/30/2010 6:05 PM EST 03/30/2010 6:13 PM EST Jairon Fenton MD CHEMISTRY ORDERABLES Performing Organization Address [facility] de Phone Number DEJA MOSQUEADIUM * APTT (03/30/2010 6:05 PM EST) Partial Thromboplastin Time 26 25 - 37 sec [facility] MILLENNIUM Comment: Recommended therapeutic PTT range for full dose unfractionated heparin is 80-114 seconds. Blood specimen (specimen) 03/30/2010 6:05 PM EST 03/30/2010 6:14 PM EST Jairon Fenton MD HEMATOLOGY ORDERABLE S Performing Organization Address [facility] Phone Number DEJA SEGOVIA * PROTIME-INR (03/30/2010 6:05 PM EST) Prothrombin Time 14.2 12.3 - 14.7 sec [facility] MOSQU[facility]UM Comment: [facility] Transfusion Committee Guidelines: INR less than 2.0, PTT less than OR equal to 43.5 seconds, or Fibrinogen greater than or equal to 100 mg/dl indicate adequate procoagulant activity for hemostasis in patients without underlying bleeding disorders. International Normalization Ratio 1.1 0.9 - 1.1 [facility] Blood specimen (specimen) 03/30/2010 6:05 PM EST 03/30/2010 6:14 PM EST Jairon Fenton MD HEMATOLOGY ORDERABLE S Performing Organization Address [facility] de Phone Number DEJA SEGOVIA [...] Standard Deviation 44.2 35.0 - 46.0 fL [facility] RDW coefficient of variation 13.1 10.9 - 14.4 % [facility] Mean Platelet Volume 10.6 9.0 - 12.0 fL [facility] Blood specimen (specimen) 03/30/2010 6:05 PM EST 03/30/2010 6:13 PM EST Jairon Fenton MD HEMATOLOGY ORDERABLE S Performing Organization Address [facility] Co de Phone Number [facility] * REFLEX LAB-ANTIBODY SCREEN (03/30/2010 3:17 PM EST) [facility] Ab Screen Interp Negative [facility] Expires at [id number] on: [id number] [facility] Blood specimen (specimen) 03/30/2010 3:17 PM EST 03/30/2010 3:17 PM EST Javier Barajas MD BLOOD BANK LAB ORDER PRECIOUS Performing Organization Address [facility] Co de Phone Number [facility] * REFLEX LAB-ABO/RH (03/30/2010 3:17 PM EST) [facility] ABORH Type A Pos [facility] Blood specimen (specimen) 03/30/2010 3:17 PM EST 03/30/2010 3:17 PM EST Javier Barajas MD BLOOD BANK LAB ORDER PRECIOUS Performing Organization Address [facility] Co de Phone Number [facility] * ELECTROLYTE PANEL (03/30/2010 2:50 PM EST) [facility] Sodium 135 135 - 145 mmol/L [facility] Potassium 4.3 3.5 - 5.0 mmol/L [facility] Comment: Please note: ??Patients with [...] EST Javier Barajas MD CHEMISTRY ORDERABLES [facility] * CREATININE, SERUM (03/30/2010 2:50 PM [...] Barajas MD CHEMISTRY ORDERABLES Performing Organization Address [facility] Phone Number [facility] * BUN (03/30/2010 2:50 PM EST) Blood Urea Nitrogen 18 10 - 20 mg/dL [facility] Blood specimen (specimen) 03/30/2010 2:50 PM EST 03/30/2010 3:05 PM EST Javier Barajas MD CHEMISTRY ORDERABLES Performing Organization Address [facility] Phone Number [facility] * GLUCOSE, RANDOM (03/30/2010 2:50 PM EST) Glucose 95 <=199 mg/dL [facility] Comment:Diabetes: >=200 mg/d L plus symptoms Blood specimen (specimen) 03/30/2010 2:50 PM EST 03/30/2010 3:05 PM EST Javier Barajas MD CHEMISTRY ORDERABLES Performing Organization Address [facility] Phone Number [facility] * APTT (03/30/2010 2:50 PM EST) Partial Thromboplastin Time 25 25 - 37 sec [facility] Comment: Recommended therapeutic PTT range for full dose unfractionated heparin is 80-114 seconds. Blood specimen (specimen) 03/30/2010 2:50 PM EST 03/30/2010 3:06 PM EST Javier Barajas MD HEMATOLOGY ORDERABLE S Performing Organization Address [facility] Phone Number [facility] * PROTIME-INR (03/30/2010 2:50 PM EST) Prothrombin Time 14.1 12.3 - 14.7 sec [facility] Comment: [facility] Transfusion Committee Guidelines: INR less than [...] on filedocumented in this encounter Care Teams Global Human Resources Director Relationship Specialty Start Date End Date Marques Martinez MD [address] [place] [address] PCP - General 04/01/10 04/08/11 documented as of this encounter
--- OUTSIDE RECORDS SUMMARY | 2024-03-24 08:01 | XMS_ITS | Encounter Summary ---
Author Organization [facility] [place] [address] Care Team Providers Care Cooler Conveyor Loader Name Role Phone Marques Martinez MD Primary Care Provider [phone] Encounter Details Date Type Department Care Team (Late st Contact Info) Description 05/01/2010 3:10 PM EST Office [place] [phone] Jairon Fenton MD [facility] DR [place] [address] Discharge Disposition: Home Social History Tobacco Use [...] AM EST Hospital Encounter Non[place] [address] Arrived documented as of this encounter Visit Diagnoses Not on filedocumented in this encounter Care Teams Cooler Conveyor Loader Relationship Specialty Start Date End Date Marques Martinez MD [address] [place] [address] PCP - General 04/01/10 04/08/11 documented as of this encounter
--- OUTSIDE RECORDS SUMMARY | 2024-03-24 08:01 | XMS_ITS | Encounter Summary ---
Author Organization [facility] [place] [address] Care Team Providers Care Ventilated Rib Fitter Name Role Phone Marques Martinez MD Primary Care Provider [phone] Encounter Details Date Type Department Care Team (Late st Contact Info) Description 10/09/2010 11:35 AM EDT - 10/09/2010 11:59 PM EDT Hospital Encounter XRay at [address] [place] [address] Social History Tobacco Use Types [...] AM EST Hospital Encounter Non-Invasive Cardiology Lab [facility] [place] [address] Arrived documented as of this encounter Visit Diagnoses Not on filedocumented in this encounter Care Teams Ventilated Rib Fitter Relationship Specialty Start Date End Date Maqrues Martinez MD [address] [place] [address] PCP - General 04/01/10 04/08/11 documented as of this encounter
--- OUTSIDE RECORDS SUMMARY | 2024-03-24 08:01 | XMS_ITS | Encounter Summary ---
Author Organization [facility] [place] [address] Care Team Providers Care Automatic Spinning Lathe Setter Name Role Phone Marques Martinez MD Primary Care Provider [phone] Reason for Visit * Reason Comments Follow Up Fracture PATELLA FX DOI 03/23 10 Encounter Details Date Type Department Care Team (Late st Contact Info) Description 10/09/2010 12:40 PM EDT Office [place] [address] Jairon Gustafson MD [facility] [place] [address] Jose Francisco Bee PA [facility] [place] [address] Quadriceps tendon rupture (Primary Dx) Discharge Disposition: [facility] Encounter Non-Invasive [place] [address] Arrived documented as of this encounter Visit Diagnoses Diagnosis Quadriceps tendon rupture- Primary Sprain and strain of other specified sites of knee and leg documented in this encounter Care Teams Automatic Spinning Lathe Setter Relationship Specialty Start Date End Date Marques Martinez MD [address] [place] [address] PCP - General 04/01/10 04/08/11 documented as of this encounter
--- OUTSIDE RECORDS SUMMARY | 2024-03-24 08:01 | XMS_ITS | Encounter Summary ---
Author Organization [facility] [place] [address] Care Team Providers Care Recep Name Role Phone Donny Cooper MD Primary Care Provider [phone] Encounter Details Date Type Department Care Team (Latest Contact Info) Description 10/03/2022 10:00 AM EDT Office Visit Cardiology at [address] [address] Eleno No, PA [facility] [place] [address] Cardiomyopathy, primary; Presence of cardiac resynchronization therapy defibrillator (AMERICAN BOARD CERTIFIED ORTHOTIST-D); Diaphragmatic stimulation by cardiac pacemaker, initial encounter [...] original note were not included. Cardiac Device AMERICAN BOARD CERTIFIED ORTHOTIST-D Programming Evaluation Nabil Iglesias [id number] 10/03/2022 History: Mr. 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 [...] AM EST Hospital Encounter [place] [address] Arrived documented as of this encounter Procedures Procedure Name Priority Date/Time Associated Diagnosis Comments EKG 12-LEAD Routine 10/03/2022 11:00 AM EDT Cardiomyopathy, primary Presence of cardiac resynchronization therapy defibrillator (AMERICAN BOARD CERTIFIED ORTHOTIST-D) Diaphragmatic stimulation by cardiac pacemaker, initial encounter documented in this encounter Results * EKG 12 Lead (10/03/2022 11:00 AM EDT) Ventricular rate 74 BPM MUSE SYSTEM Atrial Rate 74 BPM MUSE SYSTEM P-R Interval 154 ms MUSE SYSTEM QRS Duration 162 ms MUSE SYSTEM Q-T Interval 470 ms MUSE SYSTEM QTC Calculated (Bezet) 521 ms MUSE SYSTEM Calculated P [place] 30 degrees MUSE SYSTEM Calculated R [place] -98 degrees MUSE SYSTEM Calculated T [place] 41 degrees MUSE SYSTEM INTERPRETATION Atrial-sense d [...] cardiomyopathies Presence of cardiac resynchronization therapy defibrillator (AMERICAN BOARD CERTIFIED ORTHOTIST-D) Diaphragmatic stimulation by cardiac pacemaker, initial encounter documented in this encounter Care Teams Recep Relationship Specialty Start Date End Date Donny Cooper MD [address] [place] [address] PCP - General Family Medicine 02/25/19 documented as of this encounter
--- OUTSIDE RECORDS SUMMARY | 2024-03-24 08:01 | XMS_ITS | Encounter Summary ---
Author Organization [facility] [place] [address] Care Team Providers Care Boiler Attendant Name Role Phone Donny Cooper MD Primary Care Provider [phone] Encounter Details Date Type Department Care Team (Late st Contact Info) Description 07/26/2019 Notes Only Cardiology at [address] [address] Maged Arguelles MD [facility] [place] [address] Social History Tobacco Use Types Packs/Day Years [...] his Medtronic biventricular ICD is reviewed. Suboptimal LEAK HUNTER at 84%. Normal device function. Awaiting Holter to assess PVC burden. Maged Arguelles MD S Cardiac Electrophysiology 07/26/2019 9:04 AM documented in this encounter Plan of Treatment Upcoming Encounters Date Type Department Care Team (Late st Contact Info) Description 05/02/2024 10:00 AM EST Hospital Encounter Non-Invasive [place] [address] Arrived documented as of this encounter Visit Diagnoses Not on filedocumented in this encounter Care Teams Boiler Attendant Relationship Specialty Start Date End Date Donny Cooper MD [address] [place] [address] PCP - General Family Medicine 02/25/19 documented as of this encounter
--- OUTSIDE RECORDS SUMMARY | 2024-03-24 08:01 | XMS_ITS | Encounter Summary ---
Author Organization [facility] [place] [address] Care Team Providers Care Belly Roller Name Role Phone Maqrues Martinez MD Primary Care Provider Encounter Details Date Type Department Care Team (Late st Contact Info) Description 09/11/2010 Orders [place] [address] Jairon Fenton MD [facility] [place] [address] Fracture of patella, left, closed (Primary Dx) [...] [facility] Hospital Encounter Non-Invasive [place] [address] Arrived documented as of this encounter Visit Diagnoses Diagnosis Fracture of patella, left, closed- Primary Closed fracture of patella documented in this encounter Care Teams Belly Roller Relationship Specialty Start Date End Date Marques Martinez MD [address] [place] [address] PCP - General 04/01/10 04/08/11 documented as of this encounter
--- OUTSIDE RECORDS SUMMARY | 2024-03-24 08:01 | XMS_ITS | Encounter Summary ---
[place] [address] Care Team Providers Care Instruction Assistant Principal Name Role Phone Marques Martinez MD Primary Care Provider [phone] Encounter Details Date Type Department Care Team (Late st Contact Info) Description 06/12/2010 2:00 PM EST Procedure visit [place] [address] Social History Tobacco Use Types Packs/Day Years [...] AM EST Hospital Encounter Non-[place] [address] Arrived documented as of this encounter Visit Diagnoses Not on filedocumented in this encounter Care Teams Instruction Assistant Principal Relationship Specialty Start Date End Date Marques Martinez MD [address] [place] [address] PCP - General 04/01/10 04/08/11 documented as of this encounter
--- OUTSIDE RECORDS SUMMARY | 2024-03-24 08:01 | XMS_ITS | Encounter Summary ---
Author Organization [facility] [place] [address] Care Team Providers Care Document Control Supervisor Name Role Phone Clem Olvera MD Primary Care Provider [phone] Reason for Visit * Reason Comments Follow Up Fracture SP PATELLA FX DO12/12 DOI 03/30/10 Encounter Details Date Type Department Care Team (Late st Contact Info) Description 04/09/2011 1:30 PM EST Office [place] [address] Jairon Gustafson MD [facility] [place] [address] Jose Francisco Bee PA [facility] [place] [address] Patella fracture (Primary Dx) Discharge Disposition: Home [...] AM EST Hospital Encounter Non-[place] [address] Arrived documented as of this encounter Visit Diagnoses Diagnosis Patella fracture- Primary Closed fracture of patella documented in this encounter Care Teams Document Control Supervisor Relationship Specialty Start Date End Date Clem Olvera MD [address] [place] [address] PCP - General 04/09/11 02/24/19 documented as of this encounter
--- OUTSIDE RECORDS SUMMARY | 2024-03-24 08:01 | XMS_ITS | Encounter Summary ---
Author Organization [facility] [place] [address] Care Team Providers Care Dumper Mold Cleaner Name Role Phone Donny Cooper MD Primary Care Provider [phone] Encounter Details Date Type Department Care Team (Latest Contact Info) Description 06/13/2020 12:35 PM EST - 06/13/2020 11:59 PM EST Hospital Encounter Non-[place] [address] Alber Seals MD [facility] [place] [address] Cardiomyopathy, primary Discharge Disposition: Home Social History [...] AM EST Hospital Encounter Non-[place] [address] Arrived documented as of this encounter Procedures Procedure Name Priority Date/Time Associated Diagnosis Comments ICD INTERROGATION 3 MONTH Routine 06/13/2020 12:36 PM EST Cardiomyopathy, primary documented in this encounter Results * ICD INTERROGATION 3 MONTH (06/13/2020 12:36 PM EST) Anatomical Region Laterality Modality Other Narrative 06/14/2020 10:38 AM EST Cardiac Device Remote Monitoring Report Summary Medtronic Net Orange 06/14/20 Device: LICENSED SOCIAL WORKER-D Model: VIVA QUAD Battery: 2.96 v, estimated longevity 3 years, 11 months Pacing percentage: 78% ventricular paced Events: The presenting rhythm is atrial paced with biventricular pacing and frequent ventricular premature contractions No significant arrhythmias Impression Normal device function; suboptimal LICENSED SOCIAL WORKER pacing likely secondary to frequent PVCs. Should consider in clinic follow-up for further evaluation Follow Up As per schedule - in-clinic and remote ALBER SEALS MD Alber Seals MD IMPLANTABLE CARDIAC DEVICE documented in this encounter Visit Diagnoses Diagnosis Cardiomyopathy, primary Other primary cardiomyopathies documented in this encounter Care Teams Dumper Mold Cleaner Relationship Specialty Start Date End Date Donny Cooper MD [address] [place] [address] PCP - General Family Medicine 02/25/19 documented as of this encounter
--- OUTSIDE RECORDS SUMMARY | 2024-03-24 08:01 | XMS_ITS | Encounter Summary ---
[place] [address] Care Team Providers Care Chronometer Assembler And Adjuster Name Role Phone Donny Cooper MD Primary Care Provider [phone] Encounter Details Date Type Department Care Team (Late st Contact Info) Description 03/17/2019 Telephone Cardiology at [address] [address] Sheri Quinn LNA Social [...] AM EST Hospital Encounter Non[place] [address] Arrived documented as of this encounter Visit Diagnoses Not on filedocumented in this encounter Care Teams Chronometer Assembler And Adjuster Relationship Specialty Start Date End Date Dnony Cooper MD [address] [place] [address] PCP - General Family Medicine 02/25/19 documented as of this encounter
--- OUTSIDE RECORDS SUMMARY | 2024-03-24 08:01 | XMS_ITS | Encounter Summary ---
[place] [address] Care Team Providers Care Genetic Physician Name Role Phone Donny Cooper MD Primary Care Provider [phone] Encounter Details Date Type Department Care Team (Late st Contact Info) Description 06/14/2020 Telephone Cardiology at [address] [address] Nhung Briggs Social History Tobacco Use Types [...] He would like to be seen at [facility]. Email sent to Brittaney Hernandez at [facility] asking her to reach out to pt to set up the appt with either Dr. Arguelles or LANG Albert. Nhung Allen Electrophysiology Scheduling [id number] option 2 documented in this encounter Plan of Treatment Upcoming Encounters Date Type Department Care Team (Late st Contact Info) Description 05/02/2024 10:00 AM EST Hospital Encounter Non[place] [address] Arrived documented as of this encounter Visit Diagnoses Not on filedocumented in this encounter Care Teams Genetic Physician Relationship Specialty Start Date End Date Donny Cooper MD [address] [place] [address] PCP - General Family Medicine 02/25/19 documented as of this encounter
--- OUTSIDE RECORDS SUMMARY | 2024-03-24 08:01 | XMS_ITS | Encounter Summary ---
Author Organization [facility] [place] [address] Care Team Providers Care Body Press Operator Name Role Phone Donny Cooper MD Primary Care Provider [phone] Encounter Details Date Type Department Care Team (Latest Contact Info) Description 06/25/2021 3:23 PM EST - 06/25/2021 11:59 PM EST Hospital Encounter Non-Invasive [place] [address] Alber Seals MD [facility] [place] [address] Cardiomyopathy, primary Discharge Disposition: Home Social History [...] EST Hospital Encounter Non-Invasive [place] [address] Arrived documented as of this encounter Procedures Procedure Name Priority Date/Time Associated Diagnosis Comments ICD INTERROGATION 3 MONTH Routine 06/25/2021 3:24 PM EST Cardiomyopathy, primary documented in this encounter Results * ICD INTERROGATION 3 MONTH (06/25/2021 3:24 PM EST) Anatomical Region Laterality Modality Other Narrative 06/25/2021 3:42 PM EST Cardiac Device Remote Monitoring Report Summary Medtronic Carelink Device: ELECTRIC METER TECHNICIAN-D Model: VIVA QUAD Battery: 2.95 v, estimated longevity 2 years 6 months Pacing percentage: 90% ELECTRIC METER TECHNICIAN paced Events: Presenting rhythm: atrial paced/biventricular paced Frequent PVC's Impression Normal device function Follow Up As per schedule - in-clinic and remote ALBER SEALS MD 06/25/21 Alber Seals MD IMPLANTABLE CARDIAC DEVICE documented in this encounter Visit Diagnoses Diagnosis Cardiomyopathy, primary Other primary cardiomyopathies documented in this encounter Care Teams Body Press Operator Relationship Specialty Start Date End Date Donny Cooper MD [address] [place] [address] PCP - General Family Medicine 02/25/19 documented as of this encounter
--- OUTSIDE RECORDS SUMMARY | 2024-03-24 08:01 | XMS_ITS | Encounter Summary ---
[place] [address] Care Team Providers Care Costume Mistress Name Role Phone Donny Cooper MD Primary Care Provider [phone] Encounter Details Date Type Department Care Team (Latest Contact Info) Description 04/08/2022 10:00 AM EST - 04/08/2022 11:59 PM [facility] Hospital Encounter [place] [address] Discharge Disposition: Home Social History Tobacco Use [...] AM EST Hospital Encounter Non-Invasive Cardiology [place], [place] [...] on filedocumented in this encounter Care Teams Costume Mistress Relationship Specialty Start Date End Date Donny Cooper MD [address] [place] [address] PCP - General Family Medicine 02/25/19 documented as of this encounter
--- OUTSIDE RECORDS SUMMARY | 2024-03-24 08:01 | XMS_ITS | Encounter Summary ---
[place] [address] Care Team Providers Care Millroom Supervisor Name Role Phone Donny Cooper MD Primary Care Provider [phone] Encounter Details Date Type Department Care Team (Latest Contact Info) Description 07/07/2022 10:00 AM EST - 07/07/2022 11:59 PM EST Hospital Encounter Non-[place]vasive [place] [address] Discharge Disposition: Home Social History Tobacco Use [...] AM EST Hospital Encounter Non-[place]vasive [place] [address] Arrived documented as of this [...] on filedocumented in this encounter Care Teams Millroom Supervisor Relationship Specialty Start Date End Date Donny Cooper MD [address] [place] [address] PCP - General Family Medicine 02/25/19 documented as of this encounter
--- OUTSIDE RECORDS SUMMARY | 2024-03-24 08:01 | XMS_ITS | Encounter Summary ---
[place] [address] Care Team Providers Care Ion Exchange Operator Name Role Phone Marques Martinez MD Primary Care Provider [phone] Encounter Details Date Type Department Care Team (Late st Contact Info) Description 10/03/2010 Abstract [place] [address] Marina Orosco, JADON Social History Tobacco Use [...] [facility] Encounter Non[place] [address] Arrived documented as of this encounter Visit Diagnoses Not on filedocumented in this encounter Care Teams Ion Exchange Operator Relationship Specialty Start Date End Date Marques Martinez MD [address] [place] [address] PCP - General 04/01/10 04/08/11 documented as of this encounter
--- OUTSIDE RECORDS SUMMARY | 2024-03-24 08:01 | XMS_ITS | Encounter Summary ---
[place] [address] Care Team Providers Care Child Care Attendant School Name Role Phone Marques Martinez MD Primary Care Provider [phone] Encounter Details Date Type Department Care Team (Late st Contact Info) Description 05/01/2010 2:40 PM EST Procedure visit [place] [address] Social History Tobacco Use Types Packs/Day Years [...] AM EST Hospital Encounter Non-[place] [address] Arrived documented as of this encounter Visit Diagnoses Not on filedocumented in this encounter Care Teams Child Care Attendant School Relationship Specialty Start Date End Date Marques Martinez MD [address] [place] [address] PCP - General 04/01/10 04/08/11 documented as of this encounter
--- OUTSIDE RECORDS SUMMARY | 2024-03-24 08:01 | XMS_ITS | Encounter Summary ---
Author Organization [facility] [place] [address] Care Team Providers Care Nursing Service Director Name Role Phone Marques Martinez MD Primary Care Provider [phone] Encounter Details Date Type Department Care Team (Late st Contact Info) Description 06/12/2010 2:10 PM EST Office [place] [address] Jairon Fenton MD [facility] [place] [address] Discharge Disposition: Home Social History Tobacco Use [...] AM EST Hospital Encounter Non-[place] [address] Arrived documented as of this encounter Visit Diagnoses Not on filedocumented in this encounter Care Teams Nursing Service Director Relationship Specialty Start Date End Date Marques Martinez MD [address] [place] [address] PCP - General 04/01/10 04/08/11 documented as of this encounter
[2024-03-24 08:04] VITALS: BP 126/70; PULSE 75; O2SAT 95
== END 2024-04-02 23:59 | disposition home or self-care (01) ==
LOC: CR 07:58
PROVIDERS: PCP Family Medicine; Visit Provider Internal Medicine Cardiovascular Disease
DX: R69 Illness, unspecified (principal)

== ENCOUNTER 2024-05-19 08:07 | Outpatient (RCR) | payer SELFPAY ==
--- OUTSIDE RECORDS SUMMARY | 2024-05-17 08:13 | XMS_ITS | Encounter Summary ---
[place] [address] Care Team Providers Care Bagging Salvager Name Role Phone Donny Cooper MD Primary Care Provider [phone] Encounter Details Date Type Department Care Team (Latest Contact Info) Description 02/02/2024 10:00 AM EDT - 02/02/2024 11:59 PM EDT Hospital Encounter [place] [address] Discharge Disposition: Home Social History Tobacco Use [...] Care Team (Late st Contact Info) Description 07/31/2024 10:00 AM EDT Hospital Encounter [place] [address] Arrived documented as of this encounter Procedures Procedure Name Priority Date/Time Associated Diagnosis Comments PRO ICD INTERROGATION REMOTE UP TO 90 DAYS Routine 01/07/2024 3:30 PM EDT documented in this encounter Results * Cardiac Device Check - Remote (01/07/2024 3:30 PM EDT) Anatomical Region Laterality Modality Other 01/07/2024 3:30 PM EDT Shane Ray MD IMPLANTABLE CARDIAC DEVICE documented in this encounter Visit Diagnoses Not on filedocumented in this encounter Care Teams Bagging Salvager Relationship Specialty Start Date End Date Donny Cooper MD [address] [place] [address] PCP - General Family Medicine 02/25/19 documented as of this encounter
--- OUTSIDE RECORDS SUMMARY | 2024-05-17 08:13 | XMS_ITS | Encounter Summary ---
[place] [address] Care Team Providers Care Grinding Mill Operator Name Role Phone Donny Cooper MD Primary Care Provider [phone] Encounter Details Date Type Department Care Team (Latest Contact Info) Description 08/06/2023 10:00 AM EDT - 08/06/2023 11:59 PM EDT Hospital Encounter [place] [address] Discharge Disposition: Home Social History Tobacco Use [...] AM EDT Hospital Encounter [place] [address] Arrived documented as of this encounter Visit Diagnoses Not on filedocumented in this encounter Care Teams Grinding Mill Operator Relationship Specialty Start Date End Date Donny Cooper MD [address] [place] [address] PCP - General Family Medicine 02/25/19 documented as of this encounter
--- OUTSIDE RECORDS SUMMARY | 2024-05-17 08:13 | XMS_ITS | Encounter Summary ---
Author Organization [facility] Address [address] [place] [address] Care Team Providers Care Medical Doctor Md/Medical Director Name Role Phone Clem Olvera MD Primary Care Provider [phone] Encounter Details Date Type Department Care Team (Latest Contact Info) Description 12/20/2015 10:52 EDT - 12/20/2015 23:52 EDT Hospital Encounter [facility] [address] [place] [address] Navdeep Hurd MD [address] [place] [address] [address] Discharge Disposition: Home or Self [...] no need to beNPO or have a pick up and delivery driver. However, his will be accompanying him. They are driving someone to the airport [place] 1000 and then will come here and check-in around 1145. He agrees to have a shower. documented in this encounter Procedure Notes * Fantasma Dhillon MD - 12/20/2015 1356 EDT IR Brief Procedure Note Attending: Leo Line Inspector: Alejo Pre-op Dx: Arrhythmia, need for pacemaker [...] 12/19 documented in this encounter Care Teams Medical Doctor Md/Medical Director Relationship Specialty Start Date End Date Clem Olvera MD [address] [place] [address] PCP - General 12/18/15 documented as of this encounter
--- OUTSIDE RECORDS SUMMARY | 2024-05-17 08:13 | XMS_ITS | Encounter Summary ---
Author Organization [facility] Address [address] [place] [address] Care Team Providers Care Community Board Member Name Role Phone Clem Olvera MD Primary Care Provider [phone] Reason for Visit * Reason Onset Date Comments Other 04/04/2019 Transfer request for Pacer Care at [facility] [place] Encounter Details Date Type Department Care Team (Late st Contact Info) Description 04/04/2019 Telephone [facility] [facility] Cardiology Clinic [address] [place] [address] Giselle Hill, OPTICAL FABRICATOR Other (Transfer request for Pacer Care at [facility] [place]) Social History Tobacco Use [...] 04/04/2019 1503 EST I went into the [employer] Website and released pt to [facility] [place] Pacer Clinic as requested. * Telephone Encounter - Suze Reynoso - 04/04/2019 1342 EST PT WILL BE HAVING HIS PACER CARE DONE AT [facility] [place], PLEASE RELEASE HIS REMOTE MONITORING SO THAT THEY CAN PICK IT UP documented in this encounter Plan of Treatment Not on file documented as of this encounter Visit Diagnoses Not on filedocumented in this encounter Care Teams Community Board Member Relationship Specialty Start Date End Date Clem Olvera MD [address] [place] [address] PCP - General 12/18/15 documented as of this encounter
--- OUTSIDE RECORDS SUMMARY | 2024-05-17 08:13 | XMS_ITS | Encounter Summary ---
[place] [address] Care Team Providers Care Analyst Market Intelligence Name Role Phone Donny Cooper MD Primary Care Provider [phone] Encounter Details Date Type Department Care Team (Latest Contact Info) Description 07/02/2023 10:00 AM EST - 07/02/2023 11:59 PM EST Hospital Encounter [place] [address] Discharge Disposition: Home Social History Tobacco Use [...] AM EDT Hospital Encounter [place] [address] Arrived documented as of this encounter Visit Diagnoses Not on filedocumented in this encounter Care Teams Analyst Market Intelligence Relationship Specialty Start Date End Date Donny Cooper MD [address] [place] [address] PCP - General Family Medicine 02/25/19 documented as of this encounter
--- OUTSIDE RECORDS SUMMARY | 2024-05-17 08:13 | XMS_ITS | Clinical Summary ---
Author Organization [facility] [place] [address] Care Team Providers Care Precision Machine Operator Name Role Phone Donny Cooper MD Primary Care Provider [phone] Allergies No known active allergies Medications Medication [...] Encounters Date Type Department Care Team Description 05/02/2024 10:00 AM EST - 05/02/2024 11:59 PM EST Hospital Encounter Non-[place] [address] Discharge Disposition: Home 03/18/2024 Notes Only Cardiology at [address] [address] Marina Caballero APRN from Last 3 Months Immunizations Name Administration [...] Hospital Encounter Non-[place] [address] Arrived Health Maintenance Due Date Last Done Comments Tetanus/Diphtheria/Pertussis Vaccines (1 - Tdap) 08/19/1959 Zoster vaccine (1 of 2) 1990 Advance Directive 08/19/1995 Pneumoccocal Vaccine: 50+ (2 of 2 - PCV) 05/04/2009 05/04/2008 RSV Vaccine (1 - 1-dose 75+ series) 08/19/2015 Covid-19 Vaccine (1 - 2023- season) 2024 Influenza (Flu) vaccine (1 o f 1 - Influenza standard series) 01/03/2024 02/01/2010, 03/06/2006, 02/24/2005 Medical Devices Implanted Type Area Salon Shampoo Assistant Device Identifier Shelf Expiration Date Model / Serial / Lot Mdt : [id number] : [id number] Implanted: (Quantity not on file) Cardiac Resynchronization Therapy - Defibrillator Chest Medtronic - [id number] / [id number] / Procedures Procedure Name Priority Date/Time Associated Diagnosis Comments PRO ICD INTERROGATION REMOTE UP TO 90 DAYS Routine 03/08/2024 6:26 AM EST from Last 3 Months Results * Cardiac Device Check - Remote (03/08/2024 6:26 AM EST) Anatomical Region Laterality Modality Other 03/08/2024 6:26 AM EST Alber Seals MD IMPLANTABLE CARDIAC DEVICE from Last 3 Months Care Teams Precision Machine Operator Relationship Specialty Start Date End Date Donny Cooper MD [address] [place], [place] [id number] PCP - General Family Medicine 02/25/19
--- OUTSIDE RECORDS SUMMARY | 2024-05-17 08:13 | XMS_ITS | Encounter Summary ---
[place] [address] Care Team Providers Care Immigration Specialist Name Role Phone oDnny Cooper MD Primary Care Provider [phone] Encounter Details Date Type Department Care Team (Latest Contact Info) Description 11/04/2023 10:00 AM EDT - 11/04/2023 11:59 PM EDT Hospital Encounter Non-[place] [address] Discharge Disposition: Home Social History Tobacco Use [...] AM EDT Hospital Encounter Non-[place]vasive [place] [address] Arrived documented as of this encounter Procedures [...] on filedocumented in this encounter Care Teams Immigration Specialist Relationship Specialty Start Date End Date Donny Cooper MD [address] [place] [address] PCP - General Family Medicine 02/25/19 documented as of this encounter
--- OUTSIDE RECORDS SUMMARY | 2024-05-17 08:13 | XMS_ITS | Encounter Summary ---
[place] [address] Care Team Providers Care Block Hacker Name Role Phone Donny Cooper MD Primary Care Provider [phone] Encounter Details Date Type Department Care Team (Latest Contact Info) Description 05/02/2024 10:00 AM EST - 05/02/2024 11:59 PM [facility] Hospital Encounter Non-Invasive [place] [address] Discharge Disposition: Home Social History Tobacco Use [...] AM EDT Hospital Encounter Non-Invasive [place] [address] Arrived documented as of this encounter Procedures Procedure Name Priority Date/Time Associated Diagnosis Comments PRO ICD INTERROGATION REMOTE UP TO 90 DAYS Routine 03/08/2024 6:26 AM EST documented in this encounter Results * Cardiac Device Check - Remote (03/08/2024 6:26 AM EST) Anatomical Region Laterality Modality Other 03/08/2024 6:26 AM EST Alber Seals MD IMPLANTABLE CARDIAC DEVICE documented in this encounter Visit Diagnoses Not on filedocumented in this encounter Care Teams Block Hacker Relationship Specialty Start Date End Date Donny Cooper MD [address] [place] [address] PCP - General Family Medicine 02/25/19 documented as of this encounter
--- OUTSIDE RECORDS SUMMARY | 2024-05-17 08:13 | XMS_ITS | Encounter Summary ---
Author Organization [facility] Address [address] [place] [address] Care Team Providers Care Director Health Name Role Phone Unknown, Provider Primary Care Provider Clem Alcala MD Primary Care Provider [phone] Encounter Details Date Type Department Care Team (Late st Contact Info) Description 11/29/2015 Pre-Procedure [facility] [address] [place], [place] [address] Navdeep Hurd MD [address] [place] [address] [address] Social History Tobacco Use Types [...] extremity venogram Date: 12/20/2015 Patient: Ferdinand Nabil Ema. Attending: Dr. Dean Bailey Ct Technologist: Dr. Fantasma Dhillon History/indication: The patient is [...] Patient: Nabil Streeter Attending: Dr. Dean Bailey Ct Technologist: Dr. Fantasma Dhillon History/indication: The patient is [...] filedocumented in this encounter Care Teams Director Health Relationship Specialty Start Date End Date Unknown, Provider, PCP - General 12/06/12 12/17/15 Clem Olvera MD [address] [place] [address] PCP - General 12/18/15 documented as of this encounter
--- OUTSIDE RECORDS SUMMARY | 2024-05-17 08:13 | XMS_ITS | Referral Summary ---
Author Organization [facility] Address [address] [place] [address] Care Team Providers Care Strainer Mill Operator Name Role Phone Clem Olvera MD Primary Care Provider [phone] Allergies No known active allergies Medications atorvastatin [...] Advance Directives For more information, please contact: [phone] * Full Code (Latest Code Status on File) Date Activated Date Inactivated Comments 02/27/2016 8:49 02/28/2016 15:40 Question Answer Comments Reason for decision includes: Full code consistent with overall plan of care Who participated in the discussion? Not Discusse d Care Teams Strainer Mill Operator Relationship Specialty Start Date End Date Clem Olvera MD [address] [place] [address] PCP - General 12/18/15
--- OUTSIDE RECORDS SUMMARY | 2024-05-17 08:13 | XMS_ITS | Encounter Summary ---
Author Organization [facility] Address [address] [place] [address] Care Team Providers Care Spreader Operator Automatic Name Role Phone Clem Olvera MD Primary Care Provider [phone] Encounter Details Date Type Department Care Team (Late st Contact Info) Description 03/16/2019 [facility] [address] [place] [address] Ronal Avelar RN AV block, 2nd degree [...] Modality Device Narrative 03/24/2019 10:30 EST [facility] Device Visit Windows Application Administrator: Play Megaphonetronic Device Type: PARTS COUNTER CLERK-D Service: Remote ? 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
--- OUTSIDE RECORDS SUMMARY | 2024-05-17 08:13 | XMS_ITS | Encounter Summary ---
Author Organization [facility] Address [address] [place] [address] Care Team Providers Care Cloud Systems Administrator Name Role Phone Clem Olvera MD Primary Care Provider [phone] Reason for Visit * Reason Onset Date Comments Appointment Related 10/23/2016 Check for fo llow up of pacer Encounter Details Date Type Department Care Team ([facility] st Contact Info) Description 10/23/2016 Telephone [facility] Cardiology - [address] [place] [address] Pacemaker, Pace Appointment Related (Check [...] Telephone Encounter - Pushpa Shay - 10/23/2016 8227 EDT Spoke with Mrs. Iglesias who stated that Nabil had his pacemaker checked in [place] where they are for the winter. They have some back and are being followed by Dr. Hurd at [facility]. documented in this encounter Plan of Treatment Not on file documented as of this encounter Visit Diagnoses Not on filedocumented in this encounter Care Teams Cloud Systems Administrator Relationship Specialty Start Date End Date Clem Olvera MD [address] [place] [address] PCP - General 12/18/15 documented as of this encounter
--- OUTSIDE RECORDS SUMMARY | 2024-05-17 08:13 | XMS_ITS | Encounter Summary ---
[place] [address] Care Team Providers Care Apiculturist Name Role Phone Donny Cooper MD Primary Care Provider [phone] Encounter Details Date Type Department Care Team (Latest Contact Info) Description 04/03/2023 10:00 AM EST - 04/03/2023 11:59 PM [facility] Hospital Encounter [place] [address] Discharge Disposition: Home Social History Tobacco Use [...] AM EDT Hospital Encounter [place] [address] Arrived documented as of this [...] on filedocumented in this encounter Care Teams Apiculturist Relationship Specialty Start Date End Date Donny Cooper MD [address] [place] [address] PCP - General Family Medicine 02/25/19 documented as of this encounter
--- OUTSIDE RECORDS SUMMARY | 2024-05-17 08:13 | XMS_ITS | Encounter Summary ---
Author Organization [facility] Address [address] [place] [address] Care Team Providers Care Biomedical Repair Technician Name Role Phone Unavailable Primary Care Provider Unavailabl e Encounter Details Date Type Department Care Team (Late st Contact Info) Description 12/02/2012 Results Only [facility] - [facility] ([facility] [address] [place] [id number] Satinder Edwards MD [address] [place] [address] Social History Tobacco Use Types Packs/Day Years [...] Name: ? ABDIAZIZCHARMAINE ? Accession #: ? [id number] ? : ? 1940 (Age: 72) ??M [...] 1 EDT 12/02/2012 16:51 EDT us Satinder Edwadrs MD PATHOLOGY ORDERABLES Final Result [facility] [address] [place] [address] documented in this encounter Visit Diagnoses Not on filedocumented in this encounter
--- OUTSIDE RECORDS SUMMARY | 2024-05-17 08:13 | XMS_ITS | Encounter Summary ---
Author Organization [facility] [place] [address] Care Team Providers Care Explosive Ordnance Technician Name Role Phone Donny Cooper MD Primary Care Provider [phone] Encounter Details Date Type Department Care Team (Late st Contact Info) Description 03/18/2024 Notes Only Cardiology at [address] [address] Marina Caballero APRN [facility] [place] [address] Social History Tobacco Use Types Packs/Day Years [...] AM EDT Hospital Encounter Non-[place] [address] Arrived documented as of this encounter Visit Diagnoses Not on filedocumented in this encounter Care Teams Explosive Ordnance Technician Relationship Specialty Start Date End Date Donny Cooper MD [address] [facility] [address] [place] [address] PCP - General Family Medicine 02/25/19 documented as of this encounter
--- OUTSIDE RECORDS SUMMARY | 2024-05-17 08:13 | XMS_ITS | Encounter Summary ---
Author Organization [facility] Address [address] [place] [address] Care Team Providers Care Research Center Director Name Role Phone Unavailable Primary Care Provider Unavailabl e Encounter Details Date Type Department Care Team (Late st Contact Info) Description 05/06/2001 Results Only [facility] conversion [address] [place] [address] Hernandez Partida MD [address] [place] [phone] Social History Tobacco Use Types Packs/Day Years [...] ? Provider: KRISTAL PARTIDA MD Copy to: MALCLOM DOUGLAS MD ? Final Pathologic Diagnosis: A. [...] Caal)/[facility] End of Report DIVYA BERRY 05/06/2001 05/07/2001 9:2 5 EST us Hernandez Partida MD PATHOLOGY ORDERABLES Final Res ult DIVYA BERRY [address] [place] [address] documented in this encounter Visit Diagnoses Not on filedocumented in this encounter
--- OUTSIDE RECORDS SUMMARY | 2024-05-17 08:13 | XMS_ITS | Encounter Summary ---
[place] [address] Care Team Providers Care Telegrapher Agent Name Role Phone Donny Cooper MD Primary Care Provider [phone] Encounter Details Date Type Department Care Team (Late st Contact Info) Description 01/05/2024 Telephone Cardiology at [address] [phone] Kanika Shell Social History Tobacco [...] AM EDT Hospital Encounter Non-In[place] [address] Arrived documented as of this encounter Visit Diagnoses Not on filedocumented in this encounter Care Teams Telegrapher Agent Relationship Specialty Start Date End Date Donny Cooper MD [address] [place] [address] PCP - General Family Medicine 02/25/19 documented as of this encounter
--- OUTSIDE RECORDS SUMMARY | 2024-05-17 08:13 | XMS_ITS | Clinical Summary ---
Author Organization [facility] Address [address] [place] [address] Care Team Providers Care [place] Name Role Phone Clem Olvera MD Primary Care Provider [phone] Allergies No known active allergies Medications atorvastatin [...] INSERTION 05/04/2002 - 05/03/20032013 second pacemaker [facility] Medical History Medical History Date Comments CAD [...] 2024 [place] [id number] Advance Directives For more information, please contact: [phone] * Full Code (Latest Code Status on File) Date Activated Date Inactivated Comments 02/27/2016 8:49 02/28/2016 15:40 Question Answer Comments Reason for decision includes: Full code consistent with overall plan of care Who participated in the discussion? Not Discusse d Care Teams [place] Relationship Specialty Start Date End Date Clem Olvera MD [address] [place] [address] PCP - General 12/18/15
--- OUTSIDE RECORDS SUMMARY | 2024-05-17 08:13 | XMS_ITS | Encounter Summary ---
Author Organization [facility] Address [address] [place] [address] Care Team Providers Care Counsellors Name Role Phone Clem Olvera MD Primary Care Provider [phone] Reason for Referral * Cardiology (3 - [...] Expiration Date Visits Re quested Visits Authorized [id number] Closed 02/13/2016 1 1 Encounter Details Date Type Department Care Team (Latest Contact Info) Description 02/13/2016 Pre-Procedure Orders [facility]counter [facility] [address] [place], [place] [address] Navdeep Hurd MD [address] [place] [address] [phone] ICD (implantable cardioverter-defibril lator) battery depletion (Primary [...] EDT Narrative 02/27/2016 15:17 EDT *Cardiology* [address] [place] [address] Lead Revision (Report amended ) Patient: Nabil Iglesias ?Study Date: ?02/27/2016 ? Accession #: ? [id number] : ? 1940 Referring: Clem Olvera Attending: [...] glide wire a Nick MENDOZAW 6F ([facility]) 6 mm-40 mm balloon dilation still [...] Venograms were performed in the MOORE and UGANDAN projections and a suitable mid-lateral LV branch [...] fascia. The leads were connected to a PERSONAL INJURY LEGAL ASSISTANT-D device. Device and Lead detail in table [...] Implanted device: Medtronic - Viva Quad XT PERSONAL INJURY LEGAL ASSISTANT-D DF4 - Serial number: [id number] Explanted device: Medtronic - Viva XT PERSONAL INJURY LEGAL ASSISTANT-D DF4 - Serial number: [id number]. LEAD PARAMETERS + + + + + [...] ? Medtronic ? Enpath ? information ?? 7644 ? 6951M ? Attain ? Epicardial ? Performa 4298 ? + + + + + + Serial number [id number] ? [id number] ?? [id number] ?? [id number] ? + + + + [...] Note Gulshan Drummond MD - 05/12/2016 *Cardiology* [address] [place] [address] Lead Revision (Report amended ) Patient: Nabil [...] therefore over an 0.35 glide wire a Aragon OTW 6F ([facility]) 6 mm-40 mm balloon dilation still [...] Venograms were performed in the MOORE and UGANDAN projections and a suitable mid-lateral LV branch [...] fascia. The leads were connected to a PERSONAL INJURY LEGAL ASSISTANT-D device. Device and Lead detail in table [...] topical skin adhesive. IMPLANTED HARDWARE: Implanted device: [email or web address] - Viva Quad XT PERSONAL INJURY LEGAL ASSISTANT-D DF4 - Serial number: [id number] Explanted device: Medtronic - Viva XT PERSONAL INJURY LEGAL ASSISTANT-D DF4 - Serial number: [id number]. LEAD PARAMETERS + + + + + [...] + + + + + Serial number [id number] + + + + + + [...] situ documented in this encounter Care Teams Counsellors Relationship Specialty Start Date End Date Clem Olvera MD [address] [place] [address] PCP - General 12/18/15 documented as of this encounter
--- OUTSIDE RECORDS SUMMARY | 2024-05-17 08:13 | XMS_ITS | Encounter Summary ---
Author Organization [facility] Address [address] [place] [address] Care Team Providers Care Ground Operations Superintendent Name Role Phone Clem Olvera MD Primary Care Provider [phone] Reason for Referral * (Routine) - Closed [...] call the Cardiac Arrhythmia Service at [facility] at [phone] or , extension [phone]. For any scheduling of appointments, please call [phone] or , extension [phone]. . * (Routine) - Closed Specialty Diagnoses [...] Expiration Date V isits Requested Visits Authorized [id number] Closed Specialty Services Required 02/27/2016 1 1 [...] scheduled at your first appointment. - [facility] Cardiology is located at [address] [facility] in [place] -Clinics are also held in [facility], [place], [place] and [facility]. If you live in those areas, we will make arrangements for follow-up appointments in one of those clinics.. Encounter Details Date Type Department Care Team (Late st Contact Info) Description 02/27/2016 6:30 EDT - 02/28/2016 13:39 EDT Hospital Encounter [facility] Cardiac/Telemetry Unit [address] [place] [address] Gulshan Drummond MD PhD [address] [facility], Level [address] [place] [phone] Gulshan Montoya Sa, MD [address] [facility] [address] [place] [phone] AICD lead malfunction, subsequent encounter; ICD [...] EF of 20-25% status post silent inferior [place] in the early . 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 He had heart failure symptoms that started around May 2013, when he was in [place], [place]. This triggered major cardiac workup including [...] then underwent a device upgrade to a LISW-D device with biventricular pacing for his EF [...] followed in cardiology outreach clinic at [facility] in [place]. Continued high pacing threshold on the epicardial [...] and plans to follow up with his Powder Core Tester in [place] in 6-8 weeks for which [...] HGBA1C Discharge Follow Up Appointments Scheduled with [facility] Appointments Outside of [facility] We Will Schedule Studies We Will Schedule Appointments We Recommend but have not been Scheduled Beatrice De La Garza NP 02/27/2016 10:59 Cosigned by Gulshan Montoya Sa, MD at 02/28/2016 15:19 EDT Associated attestation - Gulshan Montoya Sa, MD - 02/28/2016 6489 EDT Attending Attestation: I saw and evaluated the patient. I discussed the case with the resident/DIRECTOR BIOLOGICS/fellow and agree with the findings and plan as documented above. Gulshan bullock Sa, MD Cardiac Electrophysiology documented in this encounter Discharge Instructions * Appointments* Beatrice De La Garza NP - 02/27/2016 11:[address] Olvera on 03/05/16 at 2:00 as previously scheduled for a routine visit and for a check of your incision. Follow up with Giselle Hill NP at the [facility] in May, you will be notified [...] Notes * Lou Alfonso, JADON - 02/28/2016 6998 EDT Pt awaiting discharge. IV and tele was removed by primary nurse. This RN administered flu shot and provided flu information sheet. AVS and medications reviewed by RN with patient and . AVS statedcoreg was 3.25mg BID, which pt states no, they must have copied it down wrong. I'm not doing that.We've been through this in [place]. It makes me pass out. RN suggested checking with team, which pt denied and states I wont take it twice a day. He did agree to review this medication with his branch sales manager and plans to remain on his [...] neighbors. Patient has Medicare and [facility]. Pharmacy is [facility]. No needs identified at time of discharge. will provide transportation. Beatrice Rodriguez RN Case Manager #[phone] documented in this encounter H&P Notes * Navdeep Hurd MD - 02/27/2016 0830 EDT Cardiology Admitting H&P Admit Date: 02/27/2016 Date of Service: 02/27/2016 PCP: Clem Olvera Code Status: Full Code Chief Complaint: FINN, device battery depletion, high pacing threshold on epicardial lead HPI: 74-year-old man with coronary artery disease and ischemic cardiomyopathy status post silent inferior [place] in the early . 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 He had heart failure symptoms that started around May 2013, when he was in [place], [place]. This triggered major cardiac workup including [...] point, his device was upgraded to a LISW-D device with biventricular pacing. By the patient's [...] followed in cardiology outreach clinic at [facility] in [place]. Continued high pacing threshold on the epicardial LV lead has caused a very rapid battery depletion. Dr. David Adams in [place] recommended against lead extraction and reimplant as [...] ??? Pacemaker insertion 2002 2013 second pacemaker [facility] Social History Family History Social History Substance Use Topics ??? Smoking status: Former Smoker Years: 35.00 Quit date: 1989 ??? Smokeless tobacco: Not on file ??? Alcohol use 6.6 oz/week 6 Cans of beer, 5 Glasses of wine per week , lives with , retired. Spends leong in [place]. Spends the chery in [place], [place]. Quit smoking in 1990. Has 2 [...] and ischemic cardiomyopathy status post silent inferior [place] in the early . Also diagnosed with [...] point, his device was upgraded to a LISW-D device with biventricular pacing with a surgically [...] Care - Mady Bruno RN - 02/27/2016 7117 EDT Problem: Daily Care Plan Goals Goal: [...] 03/12/2016 12:4 3 EST us Scan 2 Trench Pipe Layer PROCEDURE/MINOR SURGICAL OR DERABLES Final Result * ECG REPORT - SCANNED (03/04/2016 14:06 EDT) 03/04/2016 14:0 6 EDT us Scan 2 Trench Pipe Layer PROCEDURE/MINOR SURGICAL OR DERABLES Final Result * ECG REPORT - SCANNED (03/04/2016 14:06 EDT) 03/04/2016 14:0 6 EDT us Scan 2 Trench Pipe Layer PROCEDURE/MINOR SURGICAL OR DERABLES Final Result * IMPLANT RECORD - SCANNED (03/04/2016 14:06 EDT) 03/04/2016 14:0 6 EDT us Scan 2 Trench Pipe Layer PROCEDURE/MINOR SURGICAL OR DERABLES Final Result * ECG REPORT - SCANNED (03/01/2016 8:58 EDT) 03/01/2016 8:58 EDT us Scan 2 Trench Pipe Layer PROCEDURE/MINOR SURGICAL OR DERABLES Final Result * ECG REPORT - SCANNED (03/01/2016 8:58 EDT) 03/01/2016 8:58 EDT us Scan 2 Trench Pipe Layer PROCEDURE/MINOR SURGICAL OR DERABLES Final Result * [...] 4.0 - 10.4 K/cmm 02/28/2016 6:26 [facility] RBC 4.42 4.36 - 5.78 M/cmm 02/28/2016 6:26 [facility] Hemoglobin 14.2 13.8 - 17.3 gm/dl 02/28/2016 6:26 [facility] HCT 40.9 39.5 - 50.2 % 02/28/2016 6:26 [facility] MCV 93 81 - 95 fl 02/28/2016 6:26 [facility] MCH 32.1 27.6 - 33.0 pg 02/28/2016 6:26 [facility] MCHC 34.7 32.8 - 36.4 gm/dl 02/28/2016 6:26 [facility] RDW-CV 13.1 11.8 - 14.1 % 02/28/2016 6:26 EDT [facility] RDW-SD 44.6 36.5 - 45.9 fl 02/28/2016 6:26 EDT [facility] PLT 151 141 - 377 K/cmm 02/28/2016 6:26 EDT [facility] MPV 11.2 9.5 - 12.7 fl 02/28/2016 6:26 EDT [facility] Blood specimen (specimen) BLOOD SPECIMEN / Unknown 02/28/2016 5:44 EDT 02/28/2016 6:13 EDT Beatrice De La Garza DIRECTOR BIOLOGICS HEMATOLOGY & PF4 ORDE RABLES Final Result Performing Organization Address City/[facility] Co de Phone Number [facility] [address] [place] [address] * (ABNORMAL) CREATININE (02/28/2016 5:44 EDT) Creatinine 0.65(L) 0.66 - 1.25 mg/dl 02/28/2016 6:48 EDT [facility] GFR, Calculated 95 >60 ml/min/1.7 3m2 02/28/2016 6:48 EDT [facility] Comment: eGFR calculated using CKD-EPI equation for non Americans. Multiply eGFR by 1.16 for Americans. Blood specimen (specimen) BLOOD SPECIMEN / Unknown 02/28/2016 5:44 EDT 02/28/2016 6:13 EDT Beatrice De La Garza NP CHEMISTRY & BLOOD GAS ORDERABLES Final Result Performing Organization Address City/[facility]/ZIP Co de Phone Number [facility] [address] [place] [address] * BUN (02/28/2016 5:44 EDT) BUN 14 10 - 26 mg/dl 02/28/2016 6:48 EDT [facility] Blood specimen (specimen) BLOOD SPECIMEN / Unknown 02/28/2016 5:44 EDT 02/28/2016 6:13 EDT Beatrice De La Garza DIRECTOR BIOLOGICS CHEMISTRY & BLOOD GAS ORDERABLES Final Result Performing Organization Address [facility] Co de Phone Number [facility] [address] [place] [address] * ELECTROLYTES (02/28/2016 5:44 EDT) Sodium 138 136 - 145 mEq/L 02/28/2016 6:48 EDT [facility] Potassium 4.7 3.5 - 5.0 mEq/L 02/28/2016 6:48 EDT [facility] Chloride 104 96 - 110 mEq/L 02/28/2016 6:48 EDT [facility] CO2 25 22 - 32 mEq/L 02/28/2016 6:48 EDT [facility] Comment:Note new reference r hong 02/19/16 Blood specimen (specimen) BLOOD SPECIMEN / Unknown 02/28/2016 5:44 EDT 02/28/2016 6:13 EDT Result [facility] Beatrice De La Garza NP CHEMISTRY & BLOOD GAS ORDERABLES Final Result Performing Organization Address [facility] Co de Phone Number [facility] [address] [place] [address] * PORTABLE CHEST 1 VIEW (02/27/2016 12:46 [...] 12:41 EDT) 02/27/2016 12:4 1 EDT Narrative [facility] EKG - 02/28/2016 8:57 EDT ? [facility] ? Test Date: ?2016-02-27 Pat Name: ? NABIL IGLESIAS ? Department: ?? HERNÁN[address] 5 ? Room: ? MW514 Gender: ? M ?Compo Caster: ?? [id number] : ?1940 ? Requested By: KAIN Gallagher Order Number: [id number] ? Julia WRIGHT: ?? BRAYAN CUENCA MD ? Measurements Intervals ?[place] ? Rate: ? 63 ? P: ?15 [...] Note Brayan Cuenca MD - 02/28/2016 [facility] Test Date: 2016-02-27 Pat Name: NABIL IGLESIAS Department: [place] [address] Room: [facility] Gender: M Compo Caster: [id number] : 1940 Requested By: KAIN Gallagher Order Number: [id number] Reading MD: BRAYAN CUENCA MD Measurements Intervals [place] Rate: 63 P: 15 SC: 159 QRS: [...] OR DERABLES Final Result Performing Organization Address [facility] Co de Phone Number [facility] EKG * PROTIME (02/27/2016 8:45 EDT) Pro Time 12.3 10.3 - 13.1 secs 02/27/2016 9:10 EDT [facility] Comment: New prothrombin t josue range effective 01/29/16 I.N.R. 1.1 0.9 - 1.1 Ratio 02/27/2016 9:10 EDT [facility] Comment: Moderate Intensity Coumadin INR = 2.0-3.0 Adjustments in anticoagulant therapy dose should be based upon the INR and NOT the Pro Time. Blood specimen (specimen) BLOOD SPECIMEN / Unknown 02/27/2016 8:45 EDT 02/27/2016 8:54 EDT us Gulshan Drummond MD PhD HEMATOLOGY & P F4 ORDERABLES Final Result Performing Organization Address [facility] Co de Phone Number [facility] [address] [place] [address] * HEMAGRAM (02/27/2016 8:45 EDT) WBC 6.47 4.0 - 10.4 K/cmm 02/27/2016 8:57 EDT [facility] RBC 4.51 4.36 - 5.78 M/cmm 02/27/2016 8:57 T [facility] Hemoglobin 14.7 13.8 - 17.3 gm/dl 02/27/2016 8:57 EDT [facility] HCT 41.7 39.5 - 50.2 % 02/27/2016 8:57 EDT [facility] MCV 93 81 - 95 fl 02/27/2016 8:57 EDT [facility] MCH 32.6 27.6 - 33.0 pg 02/27/2016 8:57 EDT [facility] MCHC 35.3 32.8 - 36.4 gm/dl 02/27/2016 8:57 EDT [facility] RDW-CV 13.1 11.8 - 14.1 % 02/27/2016 8:57 EDT [facility] RDW-SD 44.0 36.5 - 45.9 fl 02/27/2016 8:57 EDT [facility] PLT 176 141 - 377 K/cmm 02/27/2016 8:57 EDT [facility] MPV 10.7 9.5 - 12.7 fl 02/27/2016 8:57 EDT [facility] Blood specimen (specimen) BLOOD SPECIMEN / Unknown 02/27/2016 8:45 EDT 02/27/2016 8:54 EDT us Gulshan Drummond MD PhD HEMATOLOGY & P F4 ORDERABLES Final Result Performing Organization Address City/[facility] Co de Phone Number [facility] [address] [place] [address] * ELECTROLYTES (02/27/2016 8:45 EDT) Sodium 142 136 - 145 mEq/L 02/27/2016 9:13 T [facility] Potassium 4.7 3.5 - 5.0 mEq/L 02/27/2016 9:13 T [facility] Chloride 103 96 - 110 mEq/L 02/27/2016 9:13 EDT [facility] CO2 27 22 - 32 mEq/L 02/27/2016 9:13 T [facility] Comment:Note new reference r hong 02/19/16 Blood specimen (specimen) BLOOD SPECIMEN / Unknown 02/27/2016 8:45 EDT 02/27/2016 8:54 EDT us Gulshan Drummond MD PhD CHEMISTRY & BL OOD GAS ORDERABLES Final Result Performing Organization Address City/[facility]/ZIP Co de Phone Number [facility] [address] [place] [address] * CREATININE (02/27/2016 8:45 EDT) Creatinine 0.69 0.66 - 1.25 mg/dl 02/27/2016 9:13 EDT [facility] GFR, Calculated 93 >60 ml/min/1.7 3m2 02/27/2016 9:13 EDT [facility] Comment: eGFR calculated using CKD-EPI equation for non Americans. Multiply eGFR by 1.16 for Americans. Blood specimen (specimen) BLOOD SPECIMEN / Unknown 02/27/2016 8:45 EDT 02/27/2016 8:54 EDT us Gulshan Drummond MD PhD CHEMISTRY & BL OOD GAS ORDERABLES Final Result Performing Organization Address City/[facility] Co de Phone Number [facility] [address] [place] [address] * BUN (02/27/2016 8:45 EDT) BUN 17 10 - 26 mg/dl 02/27/2016 9:13 EDT [facility] Blood specimen (specimen) BLOOD SPECIMEN / Unknown 02/27/2016 8:45 EDT 02/27/2016 8:54 EDT us Gulshan Drummond MD PhD CHEMISTRY & BL OOD GAS ORDERABLES Final Result Performing Organization Address City/[facility] Co de Phone Number [facility] [address] [place] [address] * EKG 12-LEAD (02/27/2016 8:08 EDT) 02/27/2016 8:08 EDT Narrative [facility] EKG - 02/28/2016 9:01 EDT ? [facility] ? Test Date: ?2016-02-27 Pat Name: ? NABIL IGLESIAS ? Department: ?? Periop[facility] ? Room: ? UG1408 Gender: ? M ?Compo Caster: ?? [id number] : ?1940 ? Requested By: MARCIA Boo Order Number: [id number] ? Reading MD: ?? BRAYAN CUENCA MD ? Measurements Intervals ?[place] ? Rate: ? 69 ? P: ?147 [...] Note Brayan Cuenca MD - 02/28/2016 [facility] Test Date: 2016-02-27 Pat Name: NABIL IGLESIAS Department: [facility] Room: [id number] Gender: M Compo Caster: [id number] : 1940 Requested By: MARCIA Boo Order Number: [id number] Reading MD: BRAYAN CUENCA MD Measurements Intervals [place] Rate: 69 P: 147 SC: 134 QRS: -67 QRSD: 160 T: -59 QT: 434 QTc: 467 Interpretive Statements ELECTRONIC ATRIAL PACEMAKER ELECTRONIC VENTRICULAR PACEMAKER Compared to ECG 02/27/2016 08:08:46 No significant changes I reviewed the tracing and have either agreed or edited the findings inthis report. Electronically Signed On 02-28-16 09:01:04 EDT by BRAYAN BEEBE. Navdeep Hurd MD CARDIAC ECG ORDERABLES Final Result [facility] EKG documented in this encounter [...] Reason: Other - Comment: pt already took PICKLING GRADER, takes other meds at HS) 921 (Given [...] Reason: Other - Comment: pt already took PICKLING GRADER, takes other meds at HS)210 (Given - Provider: Mady Bruno, JADON) spironolactone (ALDACTONE) tablet 12.5 mg 12.5 mg, oral, DAILY, First dose on Thu02/27/16 at 1245, Until Discontinued, Routine 1306 (Not Given - Provider: Nneka Stuart RN - Reason: Other - Comment: pt already took PICKLING GRADER, takes other meds at HS)210 (Given - Provider: Mady Bruno RN) tamsulosin (FLOMAX) capsule 0.4 mg 0.4 mg, oral, DAILY, First dose on Thu02/27/16 at 1245, Until Discontinued, Routine 1306 (Not Given - Provider: Nneka Stuart RN - Reason: Other - Comment: pt already took PICKLING GRADER, takes other meds at HS) 09 (Given [...] 02/02 documented in this encounter Care Teams Ground Operations Superintendent Relationship Specialty Start Date End Date Clem Olvera MD [address] [place] [address] PCP - General 12/18/15 documented as of this encounter
--- OUTSIDE RECORDS SUMMARY | 2024-05-17 08:13 | XMS_ITS | Encounter Summary ---
[place] [address] Care Team Providers Care Welder Setter Resistance Machine Name Role Phone Donny Cooper MD Primary Care Provider [phone] Encounter Details Date Type Department Care Team (Late st Contact Info) Description 12/28/2023 Notes Only Cardiology at [address] [phone] Kanika Shell Social History Tobacco Use Types [...] AM EDT Hospital Encounter [place] [address] Arrived documented as of this encounter Visit Diagnoses Not on filedocumented in this encounter Care Teams Welder Setter Resistance Machine Relationship Specialty Start Date End Date Donny Cooper MD [address] [place] [address] [address] [facility] 1 [place] [address] PCP - General Family Medicine 02/25/19 documented as of this encounter
[2024-05-17 08:14] VITALS: BP 128/59; PULSE 65
--- OUTSIDE RECORDS SUMMARY | 2024-05-17 08:14 | XMS_ITS | Encounter Summary ---
Author Organization [facility] [place] [address] Care Team Providers Care Poultry Helper Name Role Phone Marques Martinez MD Primary Care Provider [phone] Encounter Details Date Type Department Care Team (Late st Contact Info) Description 03/30/2010 [place] [address] Javier Barajas MD [facility] [place] [address] Social History Tobacco Use Types Packs/Day Years [...] AM EDT Hospital Encounter Non[place] [address] Arrived documented as of this encounter Procedures [...] AM EST Jairon Fenton MD CHEMISTRY ORDERABLES [facility] * (ABNORMAL) CREATININE, SERUM (04/01/2010 6:09 [...] Fenton MD CHEMISTRY ORDERABLES Performing Organization Address [facility] de Phone Number CERNER CHRISTOSENNIUM * BUN (04/01/2010 6:09 AM EST) Blood Urea Nitrogen 12 10 - 20 mg/dL [facility] MILLENNIUM Blood specimen (specimen) 04/01/2010 6:09 AM EST 04/01/2010 6:09 AM EST Jairon Fenton MD CHEMISTRY ORDERABLES Performing Organization Address [facility] de Phone Number CERNER MILLENNIUM [...] MD HEMATOLOGY ORDERABLE S Performing Organization Address [facility] de Phone Number CERNER MILLENNIUM [...] Fenton MD CHEMISTRY ORDERABLES Performing Organization Address [facility] Phone Number CERIVIS MILLENNIUM * ELECTROLYTE [...] Fenton MD CHEMISTRY ORDERABLES Performing Organization Address [facility] Co de Phone Number CERIVIS MILLENNIUM * CREATININE, SERUM (03/30/2010 6:05 PM EST) Creatinine 0.87 0.80 - 1.50 mg/dL [facility] Est Glomerular Filtration Rate >60 >=60 [facility] Comment: The National Kidney Disease [...] Urea Nitrogen 18 10 - 20 mg/dL [facility] Blood specimen (specimen) 03/30/2010 6:05 PM EST 03/30/2010 6:13 PM EST Jairon Fenton MD CHEMISTRY ORDERABLES Performing Organization Address [facility] de Phone Number DEJA SEGOVIA * APTT (03/30/2010 6:05 PM EST) Partial Thromboplastin Time 26 25 - 37 sec [facility]ST[facility] Comment: Recommended therapeutic PTT range for full dose unfractionated heparin is 80-114 seconds. Blood specimen (specimen) 03/30/2010 6:05 PM EST 03/30/2010 6:14 PM EST Jairon Fenton MD HEMATOLOGY ORDERABLE S Performing Organization Address [facility] Phone Number DEJA SEGOVIA * PROTIME-INR (03/30/2010 6:05 PM EST) Prothrombin Time 14.2 12.3 - 14.7 sec [facility] Comment: [facility] Transfusion Committee Guidelines: INR less than 2.0, PTT less than OR equal to 43.5 seconds, or Fibrinogen greater than or equal to 100 mg/dl indicate adequate procoagulant activity for hemostasis in patients without underlying bleeding disorders. International Normalization Ratio 1.1 0.9 - 1.1 [facility] Blood specimen (specimen) 03/30/2010 6:05 PM EST 03/30/2010 6:14 PM EST Jairon Fenton MD HEMATOLOGY ORDERABLE S Performing Organization Address [facility] de Phone Number DEJA SEGOVIA [...] Standard Deviation 44.2 35.0 - 46.0 fL [facility] RDW coefficient of variation 13.1 10.9 - 14.4 % [facility] Mean Platelet Volume 10.6 9.0 - 12.0 fL [facility] Blood specimen (specimen) 03/30/2010 6:05 PM EST 03/30/2010 6:13 PM EST Jairon Fenton MD HEMATOLOGY ORDERABLE S Performing Organization Address [facility] Co de Phone Number [facility] * REFLEX LAB-ANTIBODY SCREEN (03/30/2010 3:17 PM EST) [facility] Ab Screen Interp Negative [facility] Expires at [id number] on: [id number] [facility] Blood specimen (specimen) 03/30/2010 3:17 PM EST 03/30/2010 3:17 PM EST Javier Barajas MD BLOOD BANK LAB ORDER PRECIOUS Performing Organization Address [facility] Co de Phone Number [facility] * REFLEX LAB-ABO/RH (03/30/2010 3:17 PM EST) [facility] ABORH Type A Pos [facility] Blood specimen (specimen) 03/30/2010 3:17 PM EST 03/30/2010 3:17 PM EST Javier Barajas MD BLOOD BANK LAB ORDER PRECIOUS Performing Organization Address [facility] Co de Phone Number [facility] * ELECTROLYTE PANEL (03/30/2010 2:50 PM EST) [facility] Sodium 135 135 - 145 mmol/L [facility] Potassium 4.3 3.5 - 5.0 mmol/L [facility] Comment: Please note: ??Patients with [...] Barajas MD CHEMISTRY ORDERABLES Performing Organization Address [facility] Phone Number [facility] * BUN (03/30/2010 2:50 PM EST) Blood Urea Nitrogen 18 10 - 20 mg/dL [facility] Blood specimen (specimen) 03/30/2010 2:50 PM EST 03/30/2010 3:05 PM EST Javier Barajas MD CHEMISTRY ORDERABLES Performing Organization Address [facility] Phone Number [facility] * GLUCOSE, RANDOM (03/30/2010 2:50 PM EST) Glucose 95 <=199 mg/dL [facility] Comment:Diabetes: >=200 mg/d L plus symptoms Blood specimen (specimen) 03/30/2010 2:50 PM EST 03/30/2010 3:05 PM EST Javier Barajas MD CHEMISTRY ORDERABLES Performing Organization Address [facility] Phone Number [facility] * APTT (03/30/2010 2:50 PM EST) Partial Thromboplastin Time 25 25 - 37 sec [facility] Comment: Recommended therapeutic PTT range for full dose unfractionated heparin is 80-114 seconds. Blood specimen (specimen) 03/30/2010 2:50 PM EST 03/30/2010 3:06 PM EST Javier Barajas MD HEMATOLOGY ORDERABLE S Performing Organization Address [facility] Phone Number [facility] * PROTIME-INR (03/30/2010 2:50 PM EST) Prothrombin Time 14.1 12.3 - 14.7 sec [facility] Comment: [facility] Transfusion Committee Guidelines: INR less than [...] on filedocumented in this encounter Care Teams Poultry Helper Relationship Specialty Start Date End Date Marques Martinez MD [address] [place] [address] PCP - General 04/01/10 04/08/11 documented as of this encounter
--- OUTSIDE RECORDS SUMMARY | 2024-05-17 08:14 | XMS_ITS | Encounter Summary ---
[place] [address] Care Team Providers Care Internal Review And Audit Compliance Name Role Phone Marques Martinez MD Primary Care Provider [phone] Encounter Details Date Type Department Care Team (Late st Contact Info) Description 05/01/2010 2:40 PM EST Procedure [place] [address] Social History Tobacco Use Types Packs/Day Years [...] AM EDT Hospital Encounter Non-Invasive [place] [address] Arrived documented as of this encounter Visit Diagnoses Not on filedocumented in this encounter Care Teams Internal Review And Audit Compliance Relationship Specialty Start Date End Date Marques Martinez MD [address] [place] [address] PCP - General 04/01/10 04/08/11 documented as of this encounter
--- OUTSIDE RECORDS SUMMARY | 2024-05-17 08:14 | XMS_ITS | Encounter Summary ---
[place] [address] Care Team Providers Care Sole Splitter Name Role Phone Donny Cooper MD Primary Care Provider [phone] Encounter Details Date Type Department Care Team (Late st Contact Info) Description 06/14/2020 Telephone Cardiology at [address] [phone] Nhung Briggs Social History Tobacco Use Types [...] would like to be seen at [facility]. Email sent to Brittaney Hernandez at [facility] asking her to reach out to pt to set up the appt with either Dr. Arguelles or LANG Albert. Nhung Allen Electrophysiology Scheduling [id number] option 2 documented in this encounter Plan of Treatment Upcoming Encounters Date Type Department Care Team (Late st Contact Info) Description 07/31/2024 10:00 AM EDT Hospital Encounter Non-Invasive [place] [address] Arrived documented as of this encounter Visit Diagnoses Not on filedocumented in this encounter Care Teams Sole Splitter Relationship Specialty Start Date End Date Donny Cooper MD [address] [place] [address] PCP - General Family Medicine 02/25/19 documented as of this encounter
--- OUTSIDE RECORDS SUMMARY | 2024-05-17 08:14 | XMS_ITS | Encounter Summary ---
[place] [address] Care Team Providers Care Public Health Informatician Name Role Phone Marques Martinez MD Primary Care Provider [phone] Encounter Details Date Type Department Care Team (Late st Contact Info) Description 06/12/2010 2:00 PM EST Procedure [place] [address] Social History Tobacco Use Types Packs/Day Years [...] AM EDT Hospital Encounter [place] [address] Arrived documented as of this encounter Visit Diagnoses Not on filedocumented in this encounter Care Teams Public Health Informatician Relationship Specialty Start Date End Date Marques Martinez MD [address] [place] [address] PCP - General 04/01/10 04/08/11 documented as of this encounter
--- OUTSIDE RECORDS SUMMARY | 2024-05-17 08:14 | XMS_ITS | Encounter Summary ---
[place] [address] Care Team Providers Care Inspector And Sorter Name Role Phone Donny Cooper MD Primary Care Provider [phone] Encounter Details Date Type Department Care Team (Latest Contact Info) Description 01/03/2023 10:00 AM EDT - 01/03/2023 11:59 PM EDT Hospital Encounter Non[place] [address] Discharge Disposition: Home Social History Tobacco Use [...] AM EDT Hospital Encounter Non-[place] [address] Arrived documented as of this encounter Procedures [...] filedocumented in this encounter Care Teams Inspector And Sorter Relationship Specialty Start Date End Date Donny Cooper MD [address] [place] [address] PCP - General Family Medicine 02/25/19 documented as of this encounter
--- OUTSIDE RECORDS SUMMARY | 2024-05-17 08:14 | XMS_ITS | Encounter Summary ---
Author Organization [facility] [place] [address] Care Team Providers Care Weighing Station Operator Name Role Phone Marques Martinez MD Primary Care Provider [phone] Reason for Visit * Reason Comments Follow Up Fracture PATELLA FX DOI 03/23 10 Encounter Details Date Type Department Care Team (Late st Contact Info) Description 10/09/2010 12:40 PM EDT Office [place] [address] Jairon Gustafson MD Aubin, Christopher J PA [facility] [place] [address] Quadriceps tendon rupture (Primary Dx) Discharge Disposition: [...] AM EDT Hospital Encounter Non-Invasive [place] [address] Arrived documented as of this encounter Visit Diagnoses Diagnosis Quadriceps tendon rupture- Primary Sprain and strain of other specified sites of knee and leg documented in this encounter Care Teams Weighing Station Operator Relationship Specialty Start Date End Date Marques Martinez MD [address] [place] [address] PCP - General 04/01/10 04/08/11 documented as of this encounter
--- OUTSIDE RECORDS SUMMARY | 2024-05-17 08:14 | XMS_ITS | Encounter Summary ---
Author Organization [facility] [place] [address] Care Team Providers Care Stator Winder Name Role Phone Donny Cooper MD Primary Care Provider [phone] Encounter Details Date Type Department Care Team (Late st Contact Info) Description 07/26/2019 Notes Only Cardiology at [address] [address] Maged Arguelles MD [facility] [place] [address] Social History Tobacco Use Types Packs/Day Years [...] his Medtronic biventricular ICD is reviewed. Suboptimal ASSISTANT WAREHOUSE MANAGER at 84%. Normal device function. Awaiting Holter to assess PVC burden. Maged Arguelles MD [facility] Cardiac Electrophys[facility] 07/26/2019 9:04 AM documented in this encounter Plan of Treatment Upcoming Encounters Date Type Department Care Team (Late st Contact Info) Description 07/31/2024 10:00 AM EDT Hospital Encounter Non-Invasive Cardiology [place] [address] Arrived documented as of this encounter Visit Diagnoses Not on filedocumented in this encounter Care Teams Stator Winder Relationship Specialty Start Date End Date Donny Cooper MD [address] [place] [address] PCP - General Family Medicine 02/25/19 documented as of this encounter
--- OUTSIDE RECORDS SUMMARY | 2024-05-17 08:14 | XMS_ITS | Encounter Summary ---
[place] [address] Care Team Providers Care Plastic Panel Installer Name Role Phone Marques Martinez MD Primary Care Provider [phone] Encounter Details Date Type Department Care Team (Late st Contact Info) Description 10/03/2010 [place] [address] Marina Orosco, JADON Social History Tobacco Use [...] AM EDT Hospital Encounter Non-Invasive [place] [address] Arrived documented as of this encounter Visit Diagnoses Not on filedocumented in this encounter Care Teams Plastic Panel Installer Relationship Specialty Start Date End Date Marques Martinez MD [address] [place] [address] PCP - General 04/01/10 04/08/11 documented as of this encounter
--- OUTSIDE RECORDS SUMMARY | 2024-05-17 08:14 | XMS_ITS | Encounter Summary ---
[place] [address] Care Team Providers Care Electric Pile Driver Operator Name Role Phone Marques Martinez MD Primary Care Provider [phone] Encounter Details Date Type Department Care Team (Late st Contact Info) Description 09/11/2010 Orders [place] [address] Jairon Fenton MD Fracture of patella, left, closed (Primary Dx) [...] AM EDT Hospital Encounter Non[place] [address] Arrived documented as of this encounter Visit Diagnoses Diagnosis Fracture of patella, left, closed- Primary Closed fracture of patella documented in this encounter Care Teams Electric Pile Driver Operator Relationship Specialty Start Date End Date Marques Martinez MD [address] [place] [address] PCP - General 04/01/10 04/08/11 documented as of this encounter
--- OUTSIDE RECORDS SUMMARY | 2024-05-17 08:14 | XMS_ITS | Encounter Summary ---
[place] [address] Care Team Providers Care Clerical Adviser Name Role Phone Donny Cooper MD Primary Care Provider [phone] Encounter Details Date Type Department Care Team (Latest Contact Info) Description 04/08/2022 10:00 AM EST - 04/08/2022 11:59 PM [facility] Hospital Encounter [place] [address] Discharge Disposition: Home Social History Tobacco Use [...] AM EDT Hospital Encounter Non-[place] [address] Arrived documented as of this [...] on filedocumented in this encounter Care Teams Clerical Adviser Relationship Specialty Start Date End Date Donny Cooper MD [address] [place] [address] PCP - General Family Medicine 02/25/19 documented as of this encounter
--- OUTSIDE RECORDS SUMMARY | 2024-05-17 08:14 | XMS_ITS | Encounter Summary ---
Author Organization [facility] [place] [address] Care Team Providers Care Hasher Machine Operator Name Role Phone Donny Cooper MD Primary Care Provider [phone] Encounter Details Date Type Department Care Team (Latest Contact Info) Description 10/03/2022 10:00 AM EDT Office Visit Cardiology at [address] [address] Eleno No, PA [facility] [place] [address] Cardiomyopathy, primary; Presence of cardiac resynchronization therapy defibrillator (GLASS SANDER-D); Diaphragmatic stimulation by cardiac pacemaker, initial encounter [...] note were not included. Cardiac Device GLASS SANDER-D Programming Evaluation Nabil Iglesias [id number] 10/03/2022 History: Mr. 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 [...] AM EDT Hospital Encounter Non[place] [address] Arrived documented as of this encounter Procedures Procedure Name Priority Date/Time Associated Diagnosis Comments EKG 12-LEAD Routine 10/03/2022 11:00 AM EDT Cardiomyopathy, primary Presence of cardiac resynchronization therapy defibrillator (GLASS SANDER-D) Diaphragmatic stimulation by cardiac pacemaker, initial encounter documented in this encounter Results * EKG 12 Lead (10/03/2022 11:00 AM EDT) Ventricular rate 74 BPM MUSE SYSTEM Atrial Rate 74 BPM MUSE SYSTEM P-R Interval 154 ms MUSE SYSTEM QRS Duration 162 ms MUSE SYSTEM Q-T Interval 470 ms MUSE SYSTEM QTC Calculated (Bezet) 521 ms MUSE SYSTEM Calculated P [place] 30 degrees MUSE SYSTEM Calculated R [place] -98 degrees MUSE SYSTEM Calculated T [place] 41 degrees MUSE SYSTEM INTERPRETATION Atrial-sense d [...] Presence of cardiac resynchronization therapy defibrillator (GLASS SANDER-D) Diaphragmatic stimulation by cardiac pacemaker, initial encounter documented in this encounter Care Teams Hasher Machine Operator Relationship Specialty Start Date End Date Donny Cooper MD [address] [place] [address] PCP - General Family Medicine 02/25/19 documented as of this encounter
--- OUTSIDE RECORDS SUMMARY | 2024-05-17 08:14 | XMS_ITS | Encounter Summary ---
Author Organization [facility] [place] [address] Care Team Providers Care Costume Technician Name Role Phone Donny Cooper MD Primary Care Provider [phone] Encounter Details Date Type Department Care Team (Latest Contact Info) Description 12/18/2020 11:57 AM EDT - 12/18/2020 11:59 PM EDT Hospital Encounter Non-[place] [address] Maged Arguelles MD [facility] [place] [address] Cardiomyopathy, primary Discharge Disposition: Home Social History [...] Hospital Encounter Non-[place] [address] Arrived documented as of this encounter Procedures Procedure Name Priority Date/Time Associated Diagnosis Comments ICD INTERROGATION 3 MONTH Routine 12/18/2020 12:00 PM EDT Cardiomyopathy, primary documented in this encounter Results * ICD INTERROGATION 3 MONTH (12/18/2020 12:00 PM EDT) Anatomical Region Laterality Modality Other Narrative 12/23/2020 11:08 PM EDT MDT RN NEONATAL-D remote reviewed. Normal device function. Inadequate RN NEONATAL at 80%. Maged Arguelles MD [facility] Cardiac Electrophysiology 12/23/2020 11:06 PM Maged Arguelles MD IMPLANTABLE CARDIAC DEVICE documented in this encounter Visit Diagnoses Diagnosis Cardiomyopathy, primary Other primary cardiomyopathies documented in this encounter Care Teams Costume Technician Relationship Specialty Start Date End Date Donny Cooper MD [address] [facility] 1 [place] [address] PCP - General Family Medicine 02/25/19 documented as of this encounter
--- OUTSIDE RECORDS SUMMARY | 2024-05-17 08:14 | XMS_ITS | Encounter Summary ---
Author Organization [facility] Address [facility] [address] Care Team Providers Care Wastewater Treatment Engineer Name Role Phone Clem Olvera MD Primary Care Provider [phone] Reason for Visit * Reason Comments Follow Up Fracture SP PATELLA FX DO12/12 DOI 03/30/10 Encounter Details Date Type Department Care Team (Late st Contact Info) Description 04/09/2011 1:30 PM EST Office [place] [address] Jairon Gustafson MD Aubin, Christopher J, PA [facility] [place] [address] Patella fracture (Primary Dx) Discharge Disposition: Home [...] AM EDT Hospital Encounter Non-Invasive [place] [address] Arrived documented as of this encounter Visit Diagnoses Diagnosis Patella fracture- Primary Closed fracture of patella documented in this encounter Care Teams Wastewater Treatment Engineer Relationship Specialty Start Date End Date Clem Olvera MD [address] [place] [address] PCP - General 04/09/11 02/24/19 documented as of this encounter
--- OUTSIDE RECORDS SUMMARY | 2024-05-17 08:14 | XMS_ITS | Encounter Summary ---
Author Organization [facility] [place] [address] Care Team Providers Care Science Faculty Member Name Role Phone Marques Martinez MD Primary Care Provider [phone] Encounter Details Date Type Department Care Team (Late st Contact Info) Description 10/09/2010 11:35 AM EDT - 10/09/2010 11:59 PM EDT Hospital Encounter XRay at [address] [place] [phone] Social History Tobacco Use Types Packs/Day Years [...] Hospital Encounter Non-Invasive Cardiology Lab [facility] [place] [address] Arrived documented as of this encounter Visit Diagnoses Not on filedocumented in this encounter Care Teams Science Faculty Member Relationship Specialty Start Date End Date Marques Martinez MD [address] [place] [address] PCP - General 04/01/10 04/08/11 documented as of this encounter
--- OUTSIDE RECORDS SUMMARY | 2024-05-17 08:14 | XMS_ITS | Encounter Summary ---
Author Organization [facility] [place] [address] Care Team Providers Care Director Of Market Analysis Name Role Phone Donny Cooper MD Primary Care Provider [phone] Encounter Details Date Type Department Care Team (Latest Contact Info) Description 06/13/2020 12:35 PM EST - 06/13/2020 11:59 PM EST Hospital Encounter Non-Invasive [place] [address] Alber Seals MD [facility] [place] [address] Cardiomyopathy, primary Discharge Disposition: Home Social History [...] AM EDT Hospital Encounter Non-Invasive [place] [address] Arrived documented as of this encounter Procedures Procedure Name Priority Date/Time Associated Diagnosis Comments ICD INTERROGATION 3 MONTH Routine 06/13/2020 12:36 PM EST Cardiomyopathy, primary documented in this encounter Results * ICD INTERROGATION 3 MONTH (06/13/2020 12:36 PM EST) Anatomical Region Laterality Modality Other Narrative 06/14/2020 10:38 AM EST Cardiac Device Remote Monitoring Report Summary Medtronic Aurality 06/14/20 Device: SHEET METAL WORKER APPRENTICE-D Model: VIVA QUAD Battery: 2.96 v, estimated longevity 3 years, 11 months Pacing percentage: 78% ventricular paced Events: The presenting rhythm is atrial paced with biventricular pacing and frequent ventricular premature contractions No significant arrhythmias Impression Normal device function; suboptimal SHEET METAL WORKER APPRENTICE pacing likely secondary to frequent PVCs. Should consider in clinic follow-up for further evaluation Follow Up As per schedule - in-clinic and remote ALBER SEALS MD Alber Seals MD IMPLANTABLE CARDIAC DEVICE documented in this encounter Visit Diagnoses Diagnosis Cardiomyopathy, primary Other primary cardiomyopathies documented in this encounter Care Teams Director Of Market Analysis Relationship Specialty Start Date End Date Donny Cooper MD [address] [place] [address] PCP - General Family Medicine 02/25/19 documented as of this encounter
--- OUTSIDE RECORDS SUMMARY | 2024-05-17 08:14 | XMS_ITS | Encounter Summary ---
[place] [address] Care Team Providers Care Market Research Intern Name Role Phone Marques Martinez MD Primary Care Provider Encounter Details Date Type Department Care Team (Late st Contact Info) Description 05/01/2010 3:10 PM EST Office [place] [phone] Jairon Fenton MD Discharge Disposition: Home Social History Tobacco Use [...] Hospital Encounter Non-Invasive [place] [address] Arrived documented as of this encounter Visit Diagnoses Not on filedocumented in this encounter Care Teams Market Research Intern Relationship Specialty Start Date End Date Marques Martinez MD [address] [place] [address] PCP - General 04/01/10 04/08/11 documented as of this encounter
--- OUTSIDE RECORDS SUMMARY | 2024-05-17 08:14 | XMS_ITS | Encounter Summary ---
[place] [address] Care Team Providers Care Horticultural Nursery Assistant Name Role Phone Donny Cooper MD Primary Care Provider [phone] Encounter Details Date Type Department Care Team (Latest Contact Info) Description 07/07/2022 10:00 AM EST - 07/07/2022 11:59 PM EST Hospital Encounter [place] [address] Discharge Disposition: Home Social History Tobacco Use [...] AM EDT Hospital Encounter [place] [address] Arrived documented as of this [...] on filedocumented in this encounter Care Teams Horticultural Nursery Assistant Relationship Specialty Start Date End Date Donny Cooper MD [address] [place] [address] PCP - General Family Medicine 02/25/19 documented as of this encounter
--- OUTSIDE RECORDS SUMMARY | 2024-05-17 08:14 | XMS_ITS | Encounter Summary ---
[place] [address] Care Team Providers Care Loan Examiner Name Role Phone Donny Cooper MD Primary Care Provider [phone] Encounter Details Date Type Department Care Team (Latest Contact Info) Description 10/05/2022 10:00 AM EDT - 10/05/2022 11:59 PM EDT Hospital Encounter Non-[place] [address] Discharge Disposition: Home Social History Tobacco Use [...] AM EDT Hospital Encounter Non-[place] [address] Arrived documented as of this encounter Procedures [...] on filedocumented in this encounter Care Teams Loan Examiner Relationship Specialty Start Date End Date Donny Cooper MD [address] [place] [address] PCP - General Family Medicine 02/25/19 documented as of this encounter
--- OUTSIDE RECORDS SUMMARY | 2024-05-17 08:14 | XMS_ITS | Encounter Summary ---
[place] [address] Care Team Providers Care Director Of Conservation Name Role Phone Donny Cooper MD Primary Care Provider [phone] Encounter Details Date Type Department Care Team [...] EDT Hospital Encounter Non-Invasive [place] [address] Arrived documented as of this encounter Visit Diagnoses Not on filedocumented in this encounter Care Teams Director Of Conservation Relationship Specialty Start Date End Date Donny Cooper MD [address] [place] [address] PCP - General Family Medicine 02/25/19 documented as of this encounter
--- OUTSIDE RECORDS SUMMARY | 2024-05-17 08:14 | XMS_ITS | Encounter Summary ---
[place] [address] Care Team Providers Care Staff Registered Nurse Name Role Phone Marques Martinez MD Primary Care Provider [phone] Encounter Details Date Type Department Care Team (Late st Contact Info) Description 06/12/2010 2:10 PM EST Office [place] [address] Jairon Fenton MD Discharge Disposition: Home Social [...] AM EDT Hospital Encounter Non-[place]vasive [place] [address] Arrived documented as of this encounter Visit Diagnoses Not on filedocumented in this encounter Care Teams Staff Registered Nurse Relationship Specialty Start Date End Date Marques Martinez MD [address] [place] [address] PCP - General 04/01/10 04/08/11 documented as of this encounter
--- OUTSIDE RECORDS SUMMARY | 2024-05-17 08:14 | XMS_ITS | Encounter Summary ---
Author Organization [facility] [place] [address] Care Team Providers Care Flooring Mechanic Name Role Phone Donny Cooper MD Primary Care Provider [phone] Encounter Details Date Type Department Care Team (Latest Contact Info) Description 06/25/2021 3:23 PM EST - 06/25/2021 11:59 PM EST Hospital Encounter Non-[place] [address] Alber Seals MD [facility] [place] [address] Cardiomyopathy, primary Discharge Disposition: Home Social History [...] AM EDT Hospital Encounter Non-[place] [address] Arrived documented as of this encounter Procedures Procedure Name Priority Date/Time Associated Diagnosis Comments ICD INTERROGATION 3 MONTH Routine 06/25/2021 3:24 PM EST Cardiomyopathy, primary documented in this encounter Results * ICD INTERROGATION 3 MONTH (06/25/2021 3:24 PM EST) Anatomical Region Laterality Modality Other Narrative 06/25/2021 3:42 PM EST Cardiac Device Remote Monitoring Report Summary Medtronic Carelink Device: WORLD HISTORY TEACHER-D Model: VIVA QUAD Battery: 2.95 v, estimated longevity 2 years 6 months Pacing percentage: 90% WORLD HISTORY TEACHER paced Events: Presenting rhythm: atrial paced/biventricular paced Frequent PVC's Impression Normal device function Follow Up As per schedule - in-clinic and remote ALBER SEALS MD 06/25/21 Alber Seals MD IMPLANTABLE CARDIAC DEVICE documented in this encounter Visit Diagnoses Diagnosis Cardiomyopathy, primary Other primary cardiomyopathies documented in this encounter Care Teams Flooring Mechanic Relationship Specialty Start Date End Date Donny Cooper MD [address] [place] [address] PCP - General Family Medicine 02/25/19 documented as of this encounter
--- OUTSIDE RECORDS SUMMARY | 2024-05-17 08:14 | XMS_ITS | Encounter Summary ---
[place] [address] Care Team Providers Care Driver'S Education Instructor Name Role Phone Donny Cooper MD Primary Care Provider [phone] Encounter Details Date Type Department Care Team (Late st Contact Info) Description 03/17/2019 Telephone Cardiology at [address] [address] Sheri Quinn LNA Social History [...] AM EDT Hospital Encounter Non-[place] [address] Arrived documented as of this encounter Visit Diagnoses Not on filedocumented in this encounter Care Teams Driver'S Education Instructor Relationship Specialty Start Date End Date Donny Cooper MD [address] [place] [address] PCP - General Family Medicine 02/25/19 documented as of this encounter
--- OUTSIDE RECORDS SUMMARY | 2024-05-19 08:09 | XMS_ITS | Clinical Summary ---
Author Organization [facility] [place] [address] Care Team Providers Care Sleeve Sewer Name Role Phone Donny Cooper MD Primary Care Provider [phone] Allergies No known active allergies Medications Medication [...] PM EST Hospital Encounter Non-Invasive [place] [address] Discharge Disposition: Home 03/18/2024 Notes Only Cardiology at [address] [address] Marina Caballero APRN from Last [...] AM EDT Hospital Encounter Non-Invasive [place] [address] Arrived Health Maintenance Due Date Last Done [...] 03/06/2006, 02/24/2005 Medical Devices Implanted Type Area Animal Rescuer Device Identifier Shelf Expiration Date Model / Serial / Lot Mdt : [id number] : [id number] Implanted: (Quantity not on file) Cardiac Resynchronization Therapy - Defibrillator Chest Medtronic - [id number] / [id number] / Procedures Procedure Name Priority Date/Time Associated Diagnosis Comments PRO ICD INTERROGATION REMOTE UP TO 90 DAYS Routine 03/08/2024 6:26 AM EST from Last 3 Months Results * Cardiac Device Check - Remote (03/08/2024 6:26 AM EST) Anatomical Region Laterality Modality Other 03/08/2024 6:26 AM EST Alber Seals MD IMPLANTABLE CARDIAC DEVICE from Last 3 Months Care Teams Sleeve Sewer Relationship Specialty Start Date End Date Donny Cooper MD [address] [place], [place] [id number] PCP - General Family Medicine 02/25/19
--- OUTSIDE RECORDS SUMMARY | 2024-05-19 08:09 | XMS_ITS | Encounter Summary ---
Author Organization [facility] Address [address] [place] [address] Care Team Providers Care Administrative Manager Name Role Phone Norma Maldonado MD Primary Care Provide Clem Velasquez MD Primary Care Provider [phone] Encounter Details Date Type Department Care Team (Late st Contact Info) Description 11/29/2015 Pre-Procedure Orders Encounter [facility] [address] [place], [place] [address] Navdeep Hurd MD [address] [place] [address] Social History Tobacco Use Types Packs/Day [...] Patient: Nabil Streeter. Attending: Dr. Dean Bailey Starch Dumper: Dr. Fantasma Dhillon History/indication: The patient is [...] Patient: Nabil Streeter Attending: Dr. Dean Bailey Starch Dumper: Dr. Fantasma Dhillon History/indication: The patient is [...] on filedocumented in this encounter Care Teams Administrative Manager Relationship Specialty Start Date End Date Norma Maldonado MD PCP - General 12/06/1212/02 Clem Olvera MD [address] [place] [address] PCP - General 12/18/15 documented as of this encounter
--- OUTSIDE RECORDS SUMMARY | 2024-05-19 08:09 | XMS_ITS | Encounter Summary ---
Author Organization [facility] [place] [address] Care Team Providers Care Licensed Final Expense Agents Name Role Phone Donny Cooper MD Primary Care Provider [phone] Encounter Details Date Type Department Care Team (Late st Contact Info) Description 03/18/2024 Notes Only Cardiology at [address] [address] Marina Caballero APRN [facility] [place] [address] Social History Tobacco Use Types Packs/Day Years [...] AM EDT Hospital Encounter Non-[place] [address] Arrived documented as of this encounter Visit Diagnoses Not on filedocumented in this encounter Care Teams Licensed Final Expense Agents Relationship Specialty Start Date End Date Donny Cooper MD [address] [facility] [place] [address] PCP - General Family Medicine 02/25/19 documented as of this encounter
--- OUTSIDE RECORDS SUMMARY | 2024-05-19 08:09 | XMS_ITS | Referral Summary ---
Author Organization [facility] Address [address] [place] [address] Care Team Providers Care Sexer Name Role Phone Clem Olvera MD Primary Care Provider [phone] Allergies No known active allergies Medications atorvastatin [...] Advance Directives For more information, please contact: [phone] * Full Code (Latest Code Status on File) Date Activated Date Inactivated Comments 02/27/2016 8:49 02/28/2016 15:40 Question Answer Comments Reason for decision includes: Full code consistent with overall plan of care Who participated in the discussion? Not Discusse d Care Teams Sexer Relationship Specialty Start Date End Date Clem Olvera MD [address] [place] [address] PCP - General 12/18/15
--- OUTSIDE RECORDS SUMMARY | 2024-05-19 08:09 | XMS_ITS | Encounter Summary ---
Author Organization [facility] Address [address] [place] [address] Care Team Providers Care Wheel Braider Name Role Phone Clem Olvera MD Primary Care Provider [phone] Reason for Visit * Reason Onset Date Comments Other 04/04/2019 Transfer request for Pacer Care at [facility] Encounter Details Date Type Department Care Team (Late st Contact Info) Description 04/04/2019 Telephone [facility] Cardiology Clinic [address] [place] [address] Giselle Hill, WILDLIFE FORENSIC GENETICIST Other (Transfer request for Pacer Care at [facility]) Social History Tobacco Use Types Packs/Day Years [...] of Assessment Author No 02/27/2016 14:17 Tea Prkaash RN * Do you have serious difficulty [...] 04/04/2019 1503 EST I went into the [employer] Website and released pt to [facility] Pacer Clinic as requested. * Telephone Encounter - Suze Reynoso - 04/04/2019 1342 EST PT WILL BE HAVING HIS PACER CARE DONE AT [facility], PLEASE RELEASE HIS REMOTE MONITORING SO THAT THEY CAN PICK IT UP documented in this encounter Plan of Treatment Not on file documented as of this encounter Visit Diagnoses Not on filedocumented in this encounter Care Teams Wheel Braider Relationship Specialty Start Date End Date Clem Olvera MD [address] [place] [address] PCP - General 12/18/15 documented as of this encounter
--- OUTSIDE RECORDS SUMMARY | 2024-05-19 08:09 | XMS_ITS | Encounter Summary ---
Author Organization [facility] Address [address] [place] [address] Care Team Providers Care Chief Yeoman Name Role Phone Clem Olvera MD Primary Care Provider [phone] Reason for Referral * Cardiology (3 - [...] Expiration Date Visits Re quested Visits Authorized [id number] Closed 02/13/2016 1 1 Encounter Details Date Type Department Care Team (Latest Contact Info) Description 02/13/2016 Pre-Procedure Orders Encounter [facility] [address] [place], [place] [address] Navdeep Hurd MD [address] [place] [address] [phone] ICD (implantable cardioverter-defibril lator) battery depletion (Primary [...] EDT Narrative 02/27/2016 15:17 EDT *Cardiology* [address] [place] [address] Lead Revision (Report amended ) Patient: Nabil Iglesias ?Study Date: ?02/27/2016 ? Accession #: ? [id number] : ? 1940 Referring: Clem Olvera Attending: [...] 0.35 glide wire a Nick MENDOZAW 6F ([facility]) 6 mm-40 mm balloon dilation [...] fascia. The leads were connected to a LUMBER CARRIER OPERATOR-D device. Device and Lead detail in [...] Implanted device: Medtronic - Viva Quad XT LUMBER CARRIER OPERATOR-D DF4 - Serial number: [id number] Explanted device: Medtronic - Viva XT LUMBER CARRIER OPERATOR-D DF4 - Serial number: [id number]. LEAD PARAMETERS + + + + + [...] ? Medtronic ? Enpath ? information ?? 2998 ? [id number] ? Attain ? Epicardial ? Performa 4298 ? + + + + + + Serial number [id number] ? [id number] ?? [id number] ?? [id number] ? + + + + [...] Note Gulshan Drummond MD - 05/12/2016 *Cardiology* [address] [place] [address] Lead Revision (Report amended ) Patient: Nabil [...] therefore over an 0.35 glide wire a [place] OTW 6F ([facility]) 6 mm-40 mm balloon dilation [...] fascia. The leads were connected to a LUMBER CARRIER OPERATOR-D device. Device and Lead detail in [...] topical skin adhesive. IMPLANTED HARDWARE: Implanted device: MedMotionbox - Viva Quad XT LUMBER CARRIER OPERATOR-D DF4 - Serial number: [id number] Explanted device: Medtronic - Viva XT LUMBER CARRIER OPERATOR-D DF4 - Serial number: [id number]. LEAD PARAMETERS + + + + + [...] + + + + + Serial number [id number] + + + + + + [...] situ documented in this encounter Care Teams Chief Yeoman Relationship Specialty Start Date End Date Clem Olvera MD [address] [place] [address] PCP - General 12/18/15 documented as of this encounter
--- OUTSIDE RECORDS SUMMARY | 2024-05-19 08:09 | XMS_ITS | Encounter Summary ---
[place] [address] Care Team Providers Care Ethnology Teacher Name Role Phone Donny Cooper MD Primary Care Provider [phone] Encounter Details Date Type Department Care Team (Latest Contact Info) Description 05/02/2024 10:00 AM EST - 05/02/2024 11:59 PM [facility] Hospital Encounter Non-Invasive [place] [address] Discharge Disposition: Home Social History Tobacco Use [...] AM EDT Hospital Encounter Non-Invasive [place] [address] Arrived documented as of [...] on filedocumented in this encounter Care Teams Ethnology Teacher Relationship Specialty Start Date End Date Donny Cooper MD [address] [place] [address] PCP - General Family Medicine 02/25/19 documented as of this encounter
--- OUTSIDE RECORDS SUMMARY | 2024-05-19 08:09 | XMS_ITS | Encounter Summary ---
Author Organization [facility] Address [address] [place] [address] Care Team Providers Care Tail Edger Name Role Phone Clem Olvera MD Primary Care Provider [phone] Encounter Details Date Type Department Care Team (Latest Contact Info) Description 12/20/2015 10:52 EDT - 12/20/2015 23:52 EDT Hospital Encounter [facility] Cardiovascular Unit [address] [place] [address] Navdeep Hurd MD [address] [place] [address] [address] Discharge Disposition: Home or [...] no need to beNPO or have a commercial trailer truck driver. However, his will be accompanying him. They [place] someone to the airport [place] 1000 and then will come here and check-in around 1145. He agrees to have a shower. documented in this encounter Procedure Notes * Fantasma Dhillon MD - 12/20/2015 1356 EDT IR Brief Procedure Note Attending: Leo Drivematic Machine Operator: Alejo Pre-op Dx: Arrhythmia, need for [...] 12/19 documented in this encounter Care Teams Tail Edger Relationship Specialty Start Date End Date Clem Olvera MD [address] [place] [address] PCP - General 12/18/15 documented as of this encounter
--- OUTSIDE RECORDS SUMMARY | 2024-05-19 08:09 | XMS_ITS | Clinical Summary ---
Author Organization [facility] Address [address] [place] [address] Care Team Providers Care Production Bow Maker Name Role Phone Clem Olvera MD Primary Care Provider [phone] Allergies No known active allergies Medications atorvastatin [...] 05/04/2002 - 05/03/20032013 second pacemaker [facility] Medical History Medical History Date Comments CAD [...] 2024 [place] [id number] Advance Directives For more information, please contact: [phone] * Full Code (Latest Code Status on File) Date Activated Date Inactivated Comments 02/27/2016 8:49 02/28/2016 15:40 Question Answer Comments Reason for decision includes: Full code consistent with overall plan of care Who participated in the discussion? Not Discusse d Care Teams Production Bow Maker Relationship Specialty Start Date End Date Clem Olvera MD [address] [place] [address] PCP - General 12/18/15
--- OUTSIDE RECORDS SUMMARY | 2024-05-19 08:09 | XMS_ITS | Encounter Summary ---
Author Organization [facility] Address [address] [place] [address] Care Team Providers Care Plastic Sheets Finishing Supervisor Name Role Phone Unavailable Primary Care Provider Unavailabl e Encounter Details Date Type Department Care Team (Late st Contact Info) Description 05/06/2001 Results Only [facility] [address] [place] [address] Hernandez Partida MD [address] [place] [phone] Social History Tobacco Use Types Packs/Day Years [...] is submitted entirely in cassette (B). ??(Naty Caal)/[facility] End of Report DIVYA BERRY 05/06/2001 05/07/2001 9:2 5 EST us Hernandez Partida MD PATHOLOGY ORDERABLES Final Res ult DIVYA BERRY [address] [place] [address] documented in this encounter Visit Diagnoses Not on filedocumented in this encounter
--- OUTSIDE RECORDS SUMMARY | 2024-05-19 08:09 | XMS_ITS | Encounter Summary ---
Author Organization [facility] Address [address] [place] [address] Care Team Providers Care Agency Appointments Supervisor Name Role Phone Clem Olvera MD Primary Care Provider [phone] Encounter Details Date Type Department Care Team (Late st Contact Info) Description 03/16/2019 Abstract [facility] Cardiology Clinic [address] [place] [address] Ronal Avelar RN AV block, 2nd degree [...] Laterality Modality Device Narrative 03/24/2019 10:30 EST [facility] Cardiology Device Visit Swedish Masseuse: [employer] Device Type: EDUCATIONAL TECHNOLOGY COORDINATOR-D Service: Remote ? 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
--- OUTSIDE RECORDS SUMMARY | 2024-05-19 08:09 | XMS_ITS | Encounter Summary ---
Author Organization [facility] Address [address] [place] [address] Care Team Providers Care Routeman Name Role Phone Clem Olvera MD Primary Care Provider [phone] Reason for Visit * Reason Onset Date Comments Appointment Related 10/23/2016 Check for fo llow up of pacer Encounter Details Date Type Department Care Team ([facility] st Contact Info) Description 10/23/2016 Telephone [facility] Cardiology - [address] [place] [address] Pacemaker, Pace Appointment Related (Check [...] Telephone Encounter - Pushpa Shay - 10/23/2016 6797 EDT Spoke with Mrs. Iglesias who stated that Nabil had his pacemaker checked in [place] where they are for the winter. They have some back and are being followed by Dr. Hurd at [facility]. documented in this encounter Plan of Treatment Not on file documented as of this encounter Visit Diagnoses Not on filedocumented in this encounter Care Teams Routeman Relationship Specialty Start Date End Date Clem Olvera MD [address] [place] [address] PCP - General 12/18/15 documented as of this encounter
--- OUTSIDE RECORDS SUMMARY | 2024-05-19 08:09 | XMS_ITS | Encounter Summary ---
Author Organization [facility] Address [address] [place] [address] Care Team Providers Care Associate Spa Director Name Role Phone Unavailable Primary Care Provider Unavailabl e Encounter Details Date Type Department Care Team (Late st Contact Info) Description 12/02/2012 Results Only [facility] - [facility] ([facility]) [address] [place] [address] [id number] Satinder Edwards MD [address] [place] [id number] Social History Tobacco Use Types Packs/Day Years [...] Name: ? ABDIAZIZCHARMAINE ? Accession #: ? [id number] ? : ? 1940 (Age: 72) ??M [...] ORDERABLES Final Result [facility] [address] [place] [address] documented in this encounter Visit Diagnoses Not on filedocumented in this encounter
--- OUTSIDE RECORDS SUMMARY | 2024-05-19 08:09 | XMS_ITS | Encounter Summary ---
Author Organization [facility] Address [address] [place] [address] Care Team Providers Care Mental Health Aide Name Role Phone Clem Olvera MD Primary Care Provider [phone] Reason for Referral * (Routine) - Closed [...] the Cardiac Arrhythmia Service at [facility] at [phone] or , extension [phone]. For any scheduling of appointments, please call [phone] or , extension [phone]. . * (Routine) - Closed Specialty Diagnoses [...] Expiration Date V isits Requested Visits Authorized [id number] Closed Specialty Services Required 02/27/2016 1 1 [...] at your first appointment. - [facility] Cardiology is located at [address] [facility] in [place] -Clinics are also held in [facility], [place], [place] and [facility]. If you live in those areas, we will make arrangements for follow-up appointments in one of those clinics.. Encounter Details Date Type Department Care Team (Late st Contact Info) Description 02/27/2016 6:30 EDT - 02/28/2016 13:39 EDT Hospital Encounter [facility] Cardiac/Telemetry Unit [address] [place] [address] Gulshan Drummond MD PhD [address] [facility], Level 1 [place] [id number] Gulshan Montoya Sa, MD [address] [facility] [address] [place] [phone] AICD lead malfunction, subsequent encounter; ICD [...] around May 2013, when he was in [place], [place]. This triggered major cardiac workup including [...] then underwent a device upgrade to a WOUND CARE COORDINATOR-D device with biventricular pacing for his EF [...] been followed in cardiology outreach clinic at [facility] in [place]. Continued high pacing threshold on the epicardial [...] and plans to follow up with his Sr. Director in [place] in 6-8 weeks for which [...] HGBA1C Discharge Follow Up Appointments Scheduled with [facility] Appointments Outside of [facility] We Will Schedule Studies We Will Schedule Appointments We Recommend but have not been Scheduled Beatrice De La Garza NP 02/27/2016 10:59 Cosigned by Gulshan Montoya Sa, MD at 02/28/2016 15:19 EDT Associated attestation - Gulshan Montoya Sa, MD - 02/28/2016 3999 EDT Attending Attestation: I saw and evaluated the patient. I discussed the case with the resident/MAIL TELLER/fellow and agree with the findings and plan [...] Notes * Lou Alfonso, JADON - 02/28/2016 6286 EDT Pt awaiting discharge. IV and tele [...] agree to review this medication with his visiting nurse and plans to remain on his [...] friends and neighbors. Patient has Medicare and [facility]. Pharmacy is [facility]. No needs identified at time of discharge. will provide transportation. Beatrice Rodriguez RN Case Manager #[phone] documented in this encounter H&P Notes * Navdeep Hurd MD - 02/27/2016 0830 EDT Cardiology Admitting H&P Admit Date: 02/27/2016 Date of Service: 02/27/2016 PCP: Clem lOvera Code Status: Full Code Chief Complaint: FINN, [...] around May 2013, when he was in [place], [place]. This triggered major cardiac workup including [...] point, his device was upgraded to a WOUND CARE COORDINATOR-D device with biventricular pacing. By the patient's [...] been followed in cardiology outreach clinic at [facility] in [place]. Continued high pacing threshold on the epicardial LV lead has caused a very rapid battery depletion. Dr. David Adams in [place] recommended against lead extraction and reimplant as [...] ??? Pacemaker insertion 2002 2013 [facility] Social History Family History Social History Substance Use Topics ??? Smoking status: Former Smoker Years: 35.00 Quit date: 1989 ??? Smokeless tobacco: Not on file ??? Alcohol use 6.6 oz/week 6 Cans of beer, 5 Glasses of wine per week , lives with , retired. Spends leong in [place]. Spends the cheyr in [place], [place]. Quit smoking in 1990. Has 2 [...] point, his device was upgraded to a WOUND CARE COORDINATOR-D device with biventricular pacing with a surgically [...] Care - Mady Bruno RN - 02/27/2016 9590 EDT Problem: Daily Care Plan Goals Goal: [...] 03/12/2016 12:4 3 EST [address] [employer] Installer PROCEDURE/MINOR SURGICAL OR DERABLES Final Result * ECG REPORT - SCANNED (03/04/2016 14:06 EDT) 03/04/2016 14:0 [address] [employer] Installer PROCEDURE/MINOR SURGICAL OR DERABLES Final Result * ECG REPORT - SCANNED (03/04/2016 14:06 EDT) 03/04/2016 14:0 [address] [employer] Installer PROCEDURE/MINOR SURGICAL OR DERABLES Final Result * IMPLANT RECORD - SCANNED (03/04/2016 14:06 EDT) 03/04/2016 14:0 [address] [employer] Installer PROCEDURE/MINOR SURGICAL OR DERABLES Final Result * ECG REPORT - SCANNED (03/01/2016 8:58 EDT) 03/01/2016 8:58 EDT [address] [employer] Installer PROCEDURE/MINOR SURGICAL OR DERABLES Final Result * ECG REPORT - SCANNED (03/01/2016 8:58 EDT) 03/01/2016 8:58 EDT [address] [employer] Line Installer PROCEDURE/MINOR SURGICAL OR DERABLES Final Result * [...] 9.84 4.0 - 10.4 K/cmm 02/28/2016 6:26 [facility] RBC 4.42 4.36 - 5.78 M/cmm 02/28/2016 6:26 [facility] Hemoglobin 14.2 13.8 - [...] 11.8 - 14.1 % 02/28/2016 6:26 EDT [facility] RDW-SD 44.6 36.5 - 45.9 fl 02/28/2016 6:26 EDT [facility] PLT 151 141 - 377 K/cmm 02/28/2016 6:26 EDT [facility] MPV 11.2 9.5 - 12.7 fl 02/28/2016 6:26 EDT [facility] Blood specimen (specimen) BLOOD SPECIMEN / Unknown 02/28/2016 5:44 EDT 02/28/2016 6:13 EDT Beatrice De La Garza MAIL TELLER HEMATOLOGY & PF4 ORDE RABLES Final Result Performing Organization Address City/[facility] Co de Phone Number [facility] [address] [place] [address] * (ABNORMAL) CREATININE (02/28/2016 5:44 EDT) Creatinine [...] GAS ORDERABLES Final Result Performing Organization Address City/[facility]/ZIP Co de Phone Number [facility] [address] [place] [address] * BUN (02/28/2016 5:44 EDT) BUN 14 10 - 26 mg/dl 02/28/2016 6:48 EDT [facility] Blood specimen (specimen) BLOOD SPECIMEN / Unknown 02/28/2016 5:44 EDT 02/28/2016 6:13 EDT Beatrice De La Garza MAIL TELLER CHEMISTRY & BLOOD GAS ORDERABLES Final Result Performing Organization Address [facility] Co de Phone Number [facility] [address] [place] [address] * ELECTROLYTES (02/28/2016 5:44 EDT) Sodium 138 [...] 02/28/2016 5:44 EDT 02/28/2016 6:13 EDT Result [facility] Beatrice De La Garza NP CHEMISTRY & BLOOD GAS ORDERABLES Final Result Performing Organization Address [facility] Co de Phone Number [facility] [address] [place] [address] * PORTABLE CHEST 1 VIEW (02/27/2016 12:46 [...] - 02/28/2016 8:57 EDT ? [facility] ? Test Date: ?2016-02-27 Pat Name: ? NABIL IGLESIAS ? Department: ?? HERNÁNDEZ 5 ? Room: ? MW514 Gender: ? M ?Diamond Polisher: ?? [id number] : ?1940 ? Requested By: KAIN Gallagher Order Number: [id number] ? Julia WRIGHT: ?? BRAYAN CUENCA MD ? Measurements Intervals ?[place] ? Rate: ? 63 ? P: ?15 [...] Brayan Cuenca MD - 02/28/2016 [facility] Test Date: 2016-02-27 Pat Name: NABIL IGLESIAS Department: [place] [address] Room: [facility] Gender: M Diamond Polisher: [id number] : 1940 Requested By: KAIN Gallagher Order Number: [id number] [place] MD: BRAYAN CUENCA MD Measurements Intervals [place] Rate: 63 P: 15 ND: 159 QRS: [...] OR DERABLES Final Result Performing Organization Address [facility] Co de Phone Number [facility] EKG * PROTIME (02/27/2016 [...] F4 ORDERABLES Final Result Performing Organization Address [facility] Co de Phone Number [facility] [address] [place] [address] * HEMAGRAM (02/27/2016 8:45 EDT) WBC 6.47 4.0 - 10.4 K/cmm 02/27/2016 8:57 EDT [facility] RBC 4.51 4.36 - 5.78 M/cmm 02/27/2016 8:57 T [facility] Hemoglobin 14.7 [...] 32.8 - 36.4 gm/dl 02/27/2016 8:57 EDT [facility] RDW-CV 13.1 [...] F4 ORDERABLES Final Result Performing Organization Address City/[facility] Co de Phone Number [facility] [address] [place] [address] * ELECTROLYTES (02/27/2016 8:45 EDT) Sodium 142 136 - 145 mEq/L 02/27/2016 9:13 T [facility] Potassium 4.7 3.5 - 5.0 mEq/L 02/27/2016 9:13 T [facility] Chloride 103 96 - 110 mEq/L 02/27/2016 9:13 EDT [facility] CO2 27 22 - 32 mEq/L 02/27/2016 9:13 T [facility] Comment:Note new reference r hong 02/19/16 Blood specimen (specimen) BLOOD SPECIMEN / Unknown 02/27/2016 8:45 EDT 02/27/2016 8:54 EDT us Gulshan Drummond MD PhD CHEMISTRY & BL OOD GAS ORDERABLES Final Result Performing Organization Address City/[facility]/ZIP Co de Phone Number [facility] [address] [place] [address] * CREATININE (02/27/2016 8:45 EDT) Creatinine 0.69 [...] GAS ORDERABLES Final Result Performing Organization Address City/[facility] Co de Phone Number [facility] [address] [place] [address] * BUN (02/27/2016 8:45 EDT) BUN 17 10 - 26 mg/dl 02/27/2016 9:13 EDT [facility] Blood specimen (specimen) BLOOD SPECIMEN / Unknown 02/27/2016 8:45 EDT 02/27/2016 8:54 EDT us Gulshan Drummond MD PhD CHEMISTRY & BL OOD GAS ORDERABLES Final Result Performing Organization Address City/[facility] Co de Phone Number [facility] [address] [place] [address] * EKG 12-LEAD (02/27/2016 8:08 EDT) 02/27/2016 8:08 EDT Narrative [facility] EKG - 02/28/2016 9:01 EDT ? [facility] ? Test Date: ?2016-02-27 Pat Name: ? NABIL IGLESIAS ? Department: ?? PeriopMainC ? Room: ? SN7771 Gender: ? M ?Diamond Polisher: ?? [id number] : ?1940 ? Requested By: MARCIA Boo Order Number: [id number] ? [place] MD: ?? BRAYAN CUENCA MD ? Measurements Intervals ?[place] ? Rate: ? 69 ? P: ?147 [...] Brayan Cuenca MD - 02/28/2016 [facility] Test Date: 2016-02-27 Pat Name: NABIL IGLESIAS Department: PeriopMainC Room: MK1788 Gender: M Diamond Polisher: [id number] : 1940 Requested By: MARCIA Boo Order Number: [id number] [place] MD: BRAYAN CUENCA MD Measurements Intervals [place] Rate: 69 P: 147 ND: 134 QRS: -67 QRSD: 160 T: -59 QT: 434 QTc: 467 Interpretive Statements ELECTRONIC ATRIAL PACEMAKER ELECTRONIC VENTRICULAR PACEMAKER Compared to ECG 02/27/2016 08:08:46 No significant changes I reviewed the tracing and have either agreed or edited the findings inthis report. Electronically Signed On 02-28-16 09:01:04 EDT by BRAYAN BEEBE. Navdeep Hurd MD CARDIAC ECG ORDERABLES Final Result [facility] EKG documented in this [...] Reason: Other - Comment: pt already took HIGHW[address] TECHNICIAN, takes other meds at HS) 921 [...] Reason: Other - Comment: pt already took [address]IG[address] TECHNICIAN, takes other meds at [facility])210 (Given - Provider: Mady Bruno, JADON) spironolactone (ALDACTONE) tablet 12.5 mg 12.5 mg, oral, DAILY, First dose on Thu02/27/16 at 1245, Until Discontinued, Routine 1306 (Not Given - Provider: Nneka Stuart RN - Reason: Other - Comment: pt already took [address]IG[address] TECHNICIAN, takes other meds at [facility])210 (Given - Provider: Mady Bruno RN) tamsulosin (FLOMAX) capsule 0.4 mg 0.4 mg, oral, DAILY, First dose on Thu02/27/16 at 1245, Until Discontinued, Routine 1306 (Not Given - Provider: Nneka Stuart RN - Reason: Other - Comment: pt already took [address]IG[address] TECHNICIAN, takes other meds at [facility]) 09 (Given [...] 02/02 documented in this encounter Care Teams Mental Health Aide Relationship Specialty Start Date End Date Clem Olvera MD [address] [place] [address] PCP - General 12/18/15 documented as of this encounter
--- OUTSIDE RECORDS SUMMARY | 2024-05-19 08:09 | XMS_ITS | Encounter Summary ---
[place] [address] Care Team Providers Care Charging Car Operator Name Role Phone Donny Cooper MD Primary Care Provider [phone] Encounter Details Date Type Department Care Team (Latest Contact Info) Description 02/02/2024 10:00 AM EDT - 02/02/2024 11:59 PM EDT Hospital Encounter [place] [address] Discharge Disposition: Home Social History Tobacco Use [...] AM EDT Hospital Encounter [place] [phone] Arrived documented as of this encounter Procedures [...] on filedocumented in this encounter Care Teams Charging Car Operator Relationship Specialty Start Date End Date Donny Cooper MD [address] [place] [address] PCP - General Family Medicine 02/25/19 documented as of this encounter
--- OUTSIDE RECORDS SUMMARY | 2024-05-19 08:10 | XMS_ITS | Encounter Summary ---
Author Organization [facility] [place] [address] Care Team Providers Care Major Case Detective Name Role Phone Donny Cooper MD Primary Care Provider [phone] Encounter Details Date Type Department Care Team (Latest Contact Info) Description 06/13/2020 12:35 PM EST - 06/13/2020 11:59 PM EST Hospital Encounter [place] [address] Alber Seals MD [facility] [place] [address] Cardiomyopathy, primary Discharge Disposition: Home Social History [...] AM EDT Hospital Encounter [place] [address] Arrived documented as of this encounter Procedures Procedure Name Priority Date/Time Associated Diagnosis Comments ICD INTERROGATION 3 MONTH Routine 06/13/2020 12:36 PM EST Cardiomyopathy, primary documented in this encounter Results * ICD INTERROGATION 3 MONTH (06/13/2020 12:36 PM EST) Anatomical Region Laterality Modality Other Narrative 06/14/2020 10:38 AM EST Cardiac Device Remote Monitoring Report Summary Medtronic MEDNAX 06/14/20 Device: BINDERY MANAGER-D Model: VIVA QUAD Battery: 2.96 v, estimated longevity 3 years, 11 months Pacing percentage: 78% ventricular paced Events: The presenting rhythm is atrial paced with biventricular pacing and frequent ventricular premature contractions No significant arrhythmias Impression Normal device function; suboptimal BINDERY MANAGER pacing likely secondary to frequent PVCs. Should consider in clinic follow-up for further evaluation Follow Up As per schedule - in-clinic and remote ALBER SEALS MD Alber Seals MD IMPLANTABLE CARDIAC DEVICE documented in this encounter Visit Diagnoses Diagnosis Cardiomyopathy, primary Other primary cardiomyopathies documented in this encounter Care Teams Major Case Detective Relationship Specialty Start Date End Date Donny Cooper MD [address] [place] [address] PCP - General Family Medicine 02/25/19 documented as of this encounter
--- OUTSIDE RECORDS SUMMARY | 2024-05-19 08:10 | XMS_ITS | Encounter Summary ---
[place] [address] Care Team Providers Care Press Room Supervisor Name Role Phone Donny Cooper MD Primary Care Provider [phone] Encounter Details Date Type Department Care Team (Late st Contact Info) Description 12/28/2023 Notes Only Cardiology at [address] [phone] Kanika Shell Social History Tobacco Use Types [...] AM EDT Hospital Encounter Non-[place] [address] Arrived documented as of this encounter Visit Diagnoses Not on filedocumented in this encounter Care Teams Press Room Supervisor Relationship Specialty Start Date End Date Donny Cooper MD [address] [facility] [place] [address] PCP - General Family Medicine 02/25/19 documented as of this encounter
--- OUTSIDE RECORDS SUMMARY | 2024-05-19 08:10 | XMS_ITS | Encounter Summary ---
[place] [address] Care Team Providers Care Hydrochloric Manufacturing Supervisor Name Role Phone Donny Cooper MD Primary Care Provider [phone] Encounter Details Date Type Department Care Team (Latest Contact Info) Description 07/02/2023 10:00 AM EST - 07/02/2023 11:59 PM EST Hospital Encounter Non-Invasive [place] [address] Discharge Disposition: Home Social History Tobacco Use [...] AM EDT Hospital Encounter Non-Invasive [place] [address] Arrived documented as of this encounter Visit Diagnoses Not on filedocumented in this encounter Care Teams Hydrochloric Manufacturing Supervisor Relationship Specialty Start Date End Date Donny Cooper MD [address] [place] [address] PCP - General Family Medicine 02/25/19 documented as of this encounter
--- OUTSIDE RECORDS SUMMARY | 2024-05-19 08:10 | XMS_ITS | Encounter Summary ---
Author Organization [facility] [place] [address] Care Team Providers Care Heat Treat Technician Name Role Phone Donny Cooper MD Primary Care Provider [phone] Encounter Details Date Type Department Care Team (Latest Contact Info) Description 06/25/2021 3:23 PM EST - 06/25/2021 11:59 PM EST Hospital Encounter Non[place] [address] Alber Seals MD [facility] [place] [address] Cardiomyopathy, primary Discharge Disposition: Home Social History [...] AM EDT Hospital Encounter Non-[place] [address] Arrived documented as of this encounter Procedures Procedure Name Priority Date/Time Associated Diagnosis Comments ICD INTERROGATION 3 MONTH Routine 06/25/2021 3:24 PM EST Cardiomyopathy, primary documented in this encounter Results * ICD INTERROGATION 3 MONTH (06/25/2021 3:24 PM EST) Anatomical Region Laterality Modality Other Narrative 06/25/2021 3:42 PM EST Cardiac Device Remote Monitoring Report Summary Medtronic Carelink Device: MANAGER MAC-D Model: VIVA QUAD Battery: 2.95 v, estimated longevity 2 years 6 months Pacing percentage: 90% MANAGER MAC paced Events: Presenting rhythm: atrial paced/biventricular paced Frequent PVC's Impression Normal device function Follow Up As per schedule - in-clinic and remote ALBER SEALS MD 06/25/21 Alber Seals MD IMPLANTABLE CARDIAC DEVICE documented in this encounter Visit Diagnoses Diagnosis Cardiomyopathy, primary Other primary cardiomyopathies documented in this encounter Care Teams Heat Treat Technician Relationship Specialty Start Date End Date Donny Cooper MD [address] [place] [address] PCP - General Family Medicine 02/25/19 documented as of this encounter
--- OUTSIDE RECORDS SUMMARY | 2024-05-19 08:10 | XMS_ITS | Encounter Summary ---
[place] [address] Care Team Providers Care Attendance Clerk Name Role Phone Marques Martinez MD Primary Care Provider [phone] Encounter Details Date Type Department Care Team (Late st Contact Info) Description 06/12/2010 2:10 PM EST Office [place] [phone] Jairon Fenton MD Discharge Disposition: Home Social [...] AM EDT Hospital Encounter Non-[place] [address] Arrived documented as of this encounter Visit Diagnoses Not on filedocumented in this encounter Care Teams Attendance Clerk Relationship Specialty Start Date End Date Marques Martinez MD [address] [place] [address] PCP - General 04/01/10 04/08/11 documented as of this encounter
--- OUTSIDE RECORDS SUMMARY | 2024-05-19 08:10 | XMS_ITS | Encounter Summary ---
[place] [address] Care Team Providers Care Agricultural Economics Teacher Name Role Phone Donny Cooper MD Primary Care Provider [phone] Encounter Details Date Type Department Care Team (Latest Contact Info) Description 10/05/2022 10:00 AM EDT - 10/05/2022 11:59 PM EDT Hospital Encounter Non-[place] [address] Discharge Disposition: Home Social History Tobacco Use [...] AM EDT Hospital Encounter Non-[place] [phone] Arrived documented as of this encounter Procedures [...] on filedocumented in this encounter Care Teams Agricultural Economics Teacher Relationship Specialty Start Date End Date Donny Cooper MD [address] [place] [address] PCP - General Family Medicine 02/25/19 documented as of this encounter
--- OUTSIDE RECORDS SUMMARY | 2024-05-19 08:10 | XMS_ITS | Encounter Summary ---
[place] [address] Care Team Providers Care Grocery Buyer Name Role Phone Donny Cooper MD Primary Care Provider [phone] Encounter Details Date Type Department Care Team (Latest Contact Info) Description 11/04/2023 10:00 AM EDT - 11/04/2023 11:59 PM EDT Hospital Encounter Non-Invasive [place] [address] Discharge Disposition: Home Social History Tobacco Use [...] AM EDT Hospital Encounter Non-Invasive [place] [address] Arrived documented as of this encounter Procedures [...] on filedocumented in this encounter Care Teams Grocery Buyer Relationship Specialty Start Date End Date Donny Cooper MD [address] [place] [address] PCP - General Family Medicine 02/25/19 documented as of this encounter
--- OUTSIDE RECORDS SUMMARY | 2024-05-19 08:10 | XMS_ITS | Encounter Summary ---
Author Organization Formerly [facility] [place] [address] Care Team Providers Care Stable Hand Name Role Phone Marques Martinez MD Primary Care Provider [phone] Encounter Details Date Type Department Care Team (Late st Contact Info) Description 10/09/2010 11:35 AM EDT - 10/09/2010 11:59 PM EDT Hospital Encounter XRay at [address] [place] [phone] Social History Tobacco Use Types Packs/Day Years [...] Hospital Encounter Non-Invasive Cardiology Lab [facility] [place] [address] Arrived documented as of this encounter Visit Diagnoses Not on filedocumented in this encounter Care Teams Stable Hand Relationship Specialty Start Date End Date Marques Martinez MD [address] [place] [address] PCP - General 04/01/10 04/08/11 documented as of this encounter
--- OUTSIDE RECORDS SUMMARY | 2024-05-19 08:10 | XMS_ITS | Encounter Summary ---
Author Organization [facility] Address [facility] [place] [address] Care Team Providers Care Retail Support Associate Name Role Phone Clem Olvera MD Primary Care Provider [phone] Reason for Visit * Reason Comments Follow Up Fracture SP PATELLA FX DO12/12 DOI 03/30/10 Encounter Details Date Type Department Care Team (Late st Contact Info) Description 04/09/2011 1:30 PM EST Office [place] [address] Jairon Gustafson MD Aubin, Christopher J, PA [facility] [place] [address] Patella fracture (Primary Dx) Discharge Disposition: Home [...] AM EDT Hospital Encounter Non-[place] [address] Arrived documented as of this encounter Visit Diagnoses Diagnosis Patella fracture- Primary Closed fracture of patella documented in this encounter Care Teams Retail Support Associate Relationship Specialty Start Date End Date Clem Olvera MD [address] [place] [address] PCP - General 04/09/11 02/24/19 documented as of this encounter
--- OUTSIDE RECORDS SUMMARY | 2024-05-19 08:10 | XMS_ITS | Encounter Summary ---
[place] [address] Care Team Providers Care Global Compensation Director Name Role Phone Donny Cooper MD Primary Care Provider [phone] Encounter Details Date Type Department Care Team [...] AM EDT Hospital Encounter Non-Invasive [place] [address] Arrived documented as of this encounter Visit Diagnoses Not on filedocumented in this encounter Care Teams Global Compensation Director Relationship Specialty Start Date End Date Donny Cooper MD [address] [place] [address] PCP - General Family Medicine 02/25/19 documented as of this encounter
--- OUTSIDE RECORDS SUMMARY | 2024-05-19 08:10 | XMS_ITS | Encounter Summary ---
[place] [address] Care Team Providers Care District Manager Postal Service Name Role Phone Donny Cooper MD Primary Care Provider [phone] Encounter Details Date Type Department Care Team (Latest Contact Info) Description 04/08/2022 10:00 AM EST - 04/08/2022 11:[address] [facility] Hospital Encounter Non-[place] [address] Discharge Disposition: Home Social History Tobacco Use [...] AM EDT Hospital Encounter Non-[place] [address] Arrived documented as of this [...] filedocumented in this encounter Care Teams District Manager Postal Service Relationship Specialty Start Date End Date Donny Cooper MD [address] [place] [address] PCP - General Family Medicine 02/25/19 documented as of this encounter
--- OUTSIDE RECORDS SUMMARY | 2024-05-19 08:10 | XMS_ITS | Encounter Summary ---
[place] [address] Care Team Providers Care Wellness Program Manager Name Role Phone Marques Martinez MD Primary Care Provider [phone] Encounter Details Date Type Department Care Team (Late st Contact Info) Description 09/11/2010 [place] [address] Jairon Fenton MD Fracture of patella, left, [...] AM EDT Hospital Encounter Non-Invasive [place] [address] Arrived documented as of this encounter Visit Diagnoses Diagnosis Fracture of patella, left, closed- Primary Closed fracture of patella documented in this encounter Care Teams Wellness Program Manager Relationship Specialty Start Date End Date Marques Martinez MD [address] [place] [address] PCP - General 04/01/10 04/08/11 documented as of this encounter
--- OUTSIDE RECORDS SUMMARY | 2024-05-19 08:10 | XMS_ITS | Encounter Summary ---
[place] [address] Care Team Providers Care Electroneurodiagnostic Technologist Name Role Phone Donny Cooper MD Primary Care Provider [phone] Encounter Details Date Type Department Care Team (Latest Contact Info) Description 01/03/2023 10:00 AM EDT - 01/03/2023 11:59 PM EDT Hospital Encounter [place] [address] Discharge Disposition: Home Social History Tobacco Use [...] AM EDT Hospital Encounter Non-[place] [address] Arrived documented as of this encounter Procedures [...] on filedocumented in this encounter Care Teams Electroneurodiagnostic Technologist Relationship Specialty Start Date End Date Donny Cooper MD [address] [place] [address] PCP - General Family Medicine 02/25/19 documented as of this encounter
--- OUTSIDE RECORDS SUMMARY | 2024-05-19 08:10 | XMS_ITS | Encounter Summary ---
[place] [address] Care Team Providers Care Bookkeeper Assistant Name Role Phone Marques Martinez MD Primary Care Provider [phone] Encounter Details Date Type Department Care Team (Late st Contact Info) Description 05/01/2010 2:40 PM EST Procedure visit [place] [address] Social History Tobacco Use Types Packs/Day Years [...] Hospital Encounter Non-In[place] [address] Arrived documented as of this encounter Visit Diagnoses Not on filedocumented in this encounter Care Teams Bookkeeper Assistant Relationship Specialty Start Date End Date Marques Martinez MD [address] [place] [address] PCP - General 04/01/10 04/08/11 documented as of this encounter
--- OUTSIDE RECORDS SUMMARY | 2024-05-19 08:10 | XMS_ITS | Encounter Summary ---
Author Organization [facility] [place] [address] Care Team Providers Care Double Head Machine Operator Name Role Phone Marques Martinez MD Primary Care Provider [phone] Reason for Visit * Reason Comments Follow Up Fracture PATELLA FX DOI 03/23 10 Encounter Details Date Type Department Care Team (Late st Contact Info) Description 10/09/2010 12:40 PM EDT Office Visit [place] [address] Jairon Gustafson MD Aubin, Christopher J PA [facility] [place] [address] Quadriceps tendon rupture (Primary Dx) Discharge Disposition: [...] AM EDT Hospital Encounter Non-Invasive [place] [address] Arrived documented as of this encounter Visit Diagnoses Diagnosis Quadriceps tendon rupture- Primary Sprain and strain of other specified sites of knee and leg documented in this encounter Care Teams Double Head Machine Operator Relationship Specialty Start Date End Date Marques Martinez MD [address] [place] [address] PCP - General 04/01/10 04/08/11 documented as of this encounter
--- OUTSIDE RECORDS SUMMARY | 2024-05-19 08:10 | XMS_ITS | Encounter Summary ---
[place] [address] Care Team Providers Care Inspector Weights And Measures Name Role Phone Donny Cooper MD Primary Care Provider [phone] Encounter Details Date Type Department Care Team (Latest Contact Info) Description 04/03/2023 10:00 AM EST - 04/03/2023 11:59 PM [facility] Hospital Encounter [place] [address] Discharge Disposition: Home Social History Tobacco Use [...] AM EDT Hospital Encounter Non[place] [address] Arrived documented as of this [...] filedocumented in this encounter Care Teams Inspector Weights And Measures Relationship Specialty Start Date End Date Donny Cooper MD [address] [place] [address] PCP - General Family Medicine 02/25/19 documented as of this encounter
--- OUTSIDE RECORDS SUMMARY | 2024-05-19 08:10 | XMS_ITS | Encounter Summary ---
[place] [address] Care Team Providers Care Batter Scaler Name Role Phone Donny Cooper MD Primary Care Provider [phone] Encounter Details Date Type Department Care Team (Latest Contact Info) Description 08/06/2023 10:00 AM EDT - 08/06/2023 11:59 PM EDT Hospital Encounter Non-Invasive [place] [address] Discharge Disposition: Home Social History Tobacco Use [...] Encounter Non-Invasive [place] [address] Arrived documented as of this encounter Visit Diagnoses Not on filedocumented in this encounter Care Teams Batter Scaler Relationship Specialty Start Date End Date Donny Cooper MD [address] [place] [address] PCP - General Family Medicine 02/25/19 documented as of this encounter
--- OUTSIDE RECORDS SUMMARY | 2024-05-19 08:10 | XMS_ITS | Encounter Summary ---
Author Organization [facility] [place] [address] Care Team Providers Care Steel Shot Header Operator Name Role Phone Donny Cooper MD Primary Care Provider [phone] Encounter Details Date Type Department Care Team (Late st Contact Info) Description 07/26/2019 Notes Only Cardiology at [address] [address] Maged Arguelles MD [facility] [place] [address] Social History Tobacco Use Types Packs/Day Years [...] his Medtronic biventricular ICD is reviewed. Suboptimal ADMINISTRATION INTERNSHIP at 84%. Normal device function. Awaiting Holter to assess PVC burden. Maged Arguelles MD [facility] Cardiac Electrophysiology 07/26/2019 9:04 AM documented in this encounter Plan of Treatment Upcoming Encounters Date Type Department Care Team (Late st Contact Info) Description 07/31/2024 10:00 AM EDT Hospital Encounter Non-Invasive [place] [address] Arrived documented as of this encounter Visit Diagnoses Not on filedocumented in this encounter Care Teams Steel Shot Header Operator Relationship Specialty Start Date End Date Donny Cooper MD [address] [place] [address] PCP - General Family Medicine 02/25/19 documented as of this encounter
--- OUTSIDE RECORDS SUMMARY | 2024-05-19 08:10 | XMS_ITS | Encounter Summary ---
Author Organization [facility] [place] [address] Care Team Providers Care Griddle Cook Name Role Phone Donny Cooper MD Primary Care Provider [phone] Encounter Details Date Type Department Care Team (Latest Contact Info) Description 12/18/2020 11:57 AM EDT - 12/18/2020 11:59 PM EDT Hospital Encounter [place] [address] Maged Arguelles MD [facility] ELECTROP[place] [address] Cardiomyopathy, primary Discharge Disposition: Home Social History [...] AM EDT Hospital Encounter [place] [address] Arrived documented as of this encounter Procedures Procedure Name Priority Date/Time Associated Diagnosis Comments ICD INTERROGATION 3 MONTH Routine 12/18/2020 12:00 PM EDT Cardiomyopathy, primary documented in this encounter Results * ICD INTERROGATION 3 MONTH (12/18/2020 12:00 PM EDT) Anatomical Region Laterality Modality Other Narrative 12/23/2020 11:08 PM EDT MDT PATIENT SERVICES REPRESENTATIVE-D remote reviewed. Normal device function. Inadequate PATIENT SERVICES REPRESENTATIVE at 80%. Maged Arguelles MD [facility] Elect[facility] 12/23/2020 11:06 PM Maged Arguelles MD IMPLANTABLE CARDIAC DEVICE documented in this encounter Visit Diagnoses Diagnosis Cardiomyopathy, primary Other primary cardiomyopathies documented in this encounter Care Teams Griddle Cook Relationship Specialty Start Date End Date Donny Cooper MD [address] [facility] [address] [place] [address] PCP - General Family Medicine 02/25/19 documented as of this encounter
--- OUTSIDE RECORDS SUMMARY | 2024-05-19 08:10 | XMS_ITS | Encounter Summary ---
[place] [address] Care Team Providers Care Blower Installer Name Role Phone Donny Cooper MD Primary Care Provider [phone] Encounter Details Date Type Department Care Team (Late st Contact Info) Description 01/05/2024 Telephone Cardiology at [address] [address] Kanika Shell Social History Tobacco [...] AM EDT Hospital Encounter Non-[place] [address] Arrived documented as of this encounter Visit Diagnoses Not on filedocumented in this encounter Care Teams Blower Installer Relationship Specialty Start Date End Date Donny Cooper MD [address] [place] [address] PCP - General Family Medicine 02/25/19 documented as of this encounter
--- OUTSIDE RECORDS SUMMARY | 2024-05-19 08:10 | XMS_ITS | Encounter Summary ---
[place] [address] Care Team Providers Care Privacy Manager Name Role Phone Marques Martinez MD Primary Care Provider [phone] Encounter Details Date Type Department Care Team (Late st Contact Info) Description 10/03/2010 [place] [address] Marina Orosco, JADON Social History Tobacco Use [...] EDT Hospital Encounter Non-Invasive [place] [address] Arrived documented as of this encounter Visit Diagnoses Not on filedocumented in this encounter Care Teams Privacy Manager Relationship Specialty Start Date End Date Marques Martinez MD [address] [place] [address] PCP - General 04/01/10 04/08/11 documented as of this encounter
--- OUTSIDE RECORDS SUMMARY | 2024-05-19 08:10 | XMS_ITS | Encounter Summary ---
[place] [address] Care Team Providers Care Meat Specialist Name Role Phone Donny Cooper MD Primary Care Provider [phone] Encounter Details Date Type Department Care Team (Late st Contact Info) Description 06/14/2020 Telephone Cardiology at [address] [address] Nhung Briggs Social History Tobacco Use Types [...] He would like to be seen at [facility]. Email sent to Brittaney Hernandez at [facility] asking her to reach out to pt to set up the appt with either Dr. Arguelles or LANG Albert. Nhung Allen Electrophysiology Scheduling [id number] option 2 documented in this encounter Plan of Treatment Upcoming Encounters Date Type Department Care Team (Late st Contact Info) Description 07/31/2024 10:00 AM EDT Hospital Encounter Non-Invasive [place] [address] Arrived documented as of this encounter Visit Diagnoses Not on filedocumented in this encounter Care Teams Meat Specialist Relationship Specialty Start Date End Date Donny Cooper MD [address] [place] [address] PCP - General Family Medicine 02/25/19 documented as of this encounter
--- OUTSIDE RECORDS SUMMARY | 2024-05-19 08:10 | XMS_ITS | Encounter Summary ---
[place] [address] Care Team Providers Care Furnace Installer Name Role Phone Marques Martinez MD Primary Care Provider [phone] Encounter Details Date Type Department Care Team (Late st Contact Info) Description 05/01/2010 3:10 PM EST Office [place] [address] Jairon Fenton MD Discharge Disposition: Home Social [...] Hospital Encounter Non-[place] [address] Arrived documented as of this encounter Visit Diagnoses Not on filedocumented in this encounter Care Teams Furnace Installer Relationship Specialty Start Date End Date Marques Martinez MD [address] [place] [address] PCP - General 04/01/10 04/08/11 documented as of this encounter
--- OUTSIDE RECORDS SUMMARY | 2024-05-19 08:10 | XMS_ITS | Encounter Summary ---
[place] [address] Care Team Providers Care Account Executive Key Accounts Name Role Phone Marques Martinez MD Primary Care Provider [phone] Encounter Details Date Type Department Care Team (Late st Contact Info) Description 06/12/2010 2:00 PM EST Procedure [place] [address] Social History Tobacco Use Types Packs/Day Years [...] EDT Hospital Encounter Non-Invasive [place] [address] Arrived documented as of this encounter Visit Diagnoses Not on filedocumented in this encounter Care Teams Account Executive Key Accounts Relationship Specialty Start Date End Date Marques Martinez MD [address] [place] [address] PCP - General 04/01/10 04/08/11 documented as of this encounter
--- OUTSIDE RECORDS SUMMARY | 2024-05-19 08:10 | XMS_ITS | Encounter Summary ---
[place] [address] Care Team Providers Care Crystallizer Operator Name Role Phone Donny Cooper MD Primary Care Provider [phone] Encounter Details Date Type Department Care Team (Latest Contact Info) Description 07/07/2022 10:00 AM EST - 07/07/2022 11:59 PM EST Hospital Encounter Non-[place] [address] Discharge Disposition: Home Social History Tobacco Use [...] AM EDT Hospital Encounter Non-[place] [address] Arrived documented as of this [...] on filedocumented in this encounter Care Teams Crystallizer Operator Relationship Specialty Start Date End Date Donny Cooper MD [address] [place] [address] PCP - General Family Medicine 02/25/19 documented as of this encounter
--- OUTSIDE RECORDS SUMMARY | 2024-05-19 08:10 | XMS_ITS | Encounter Summary ---
Author [facility] [place] [address] Care Team Providers Care Drainage Design Coordinator Name Role Phone Donny Cooper MD Primary Care Provider [phone] Encounter Details Date Type Department Care Team (Latest Contact Info) Description 10/03/2022 10:00 AM EDT Office Visit Cardiology at [address] [address] Eleno No, PA [facility] [address] Cardiomyopathy, primary; Presence of cardiac resynchronization therapy defibrillator (ARTIST MANAGER-D); Diaphragmatic stimulation by cardiac pacemaker, initial [...] original note were not included. Cardiac Device ARTIST MANAGER-D Programming Evaluation Nabil Iglesias [id number] 10/03/2022 History: Mr. 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 [...] AM EDT Hospital Encounter Non-[place] [address] Arrived documented as of this encounter Procedures Procedure Name Priority Date/Time Associated Diagnosis Comments EKG 12-LEAD Routine 10/03/2022 11:00 AM EDT Cardiomyopathy, primary Presence of cardiac resynchronization therapy defibrillator (ARTIST MANAGER-D) Diaphragmatic stimulation by cardiac pacemaker, initial encounter documented in this encounter Results * EKG 12 Lead (10/03/2022 11:00 AM EDT) Ventricular rate 74 BPM MUSE SYSTEM Atrial Rate 74 BPM MUSE SYSTEM P-R Interval 154 ms MUSE SYSTEM QRS Duration 162 ms MUSE SYSTEM Q-T Interval 470 ms MUSE SYSTEM QTC Calculated (Bezet) 521 ms MUSE SYSTEM Calculated P Parnell 30 degrees MUSE SYSTEM Calculated R Parnell -98 degrees MUSE SYSTEM Calculated T Parnell 41 degrees MUSE SYSTEM INTERPRETATION Atrial-sense d [...] cardiomyopathies Presence of cardiac resynchronization therapy defibrillator (ARTIST MANAGER-D) Diaphragmatic stimulation by cardiac pacemaker, initial encounter documented in this encounter Care Teams Drainage Design Coordinator Relationship Specialty Start Date End Date Donny Cooper MD [address] [place] [address] PCP - General Family Medicine 02/25/19 documented as of this encounter
--- OUTSIDE RECORDS SUMMARY | 2024-05-19 08:10 | XMS_ITS | Encounter Summary ---
[place] [address] Care Team Providers Care Underwriting Support Manager Name Role Phone Donny Cooper MD Primary Care Provider [phone] Encounter Details Date Type Department Care Team (Late st Contact Info) Description 03/17/2019 Telephone Cardiology at [address] [address] Sheri Quinn LNA Social History [...] 11:46 AM EST Medication list reviewed with [facility] list. Please review with patient at next clinic visit. documented in this encounter Plan of Treatment Upcoming Encounters Date Type Department Care Team (Late st Contact Info) Description 07/31/2024 10:00 AM EDT Hospital Encounter Non-Invasive [place] [address] Arrived documented as of this encounter Visit Diagnoses Not on filedocumented in this encounter Care Teams Underwriting Support Manager Relationship Specialty Start Date End Date Donny Cooper MD [address] [place] [address] PCP - General Family Medicine 02/25/19 documented as of this encounter
--- OUTSIDE RECORDS SUMMARY | 2024-05-19 08:10 | XMS_ITS | Encounter Summary ---
Author Organization [facility] [place] [address] Care Team Providers Care Blacksmith Assistant Name Role Phone Marques Martinez MD Primary Care Provider [phone] Encounter Details Date Type Department Care Team (Late st Contact Info) Description 03/30/2010 [place] [address] Javier Barajas MD [facility] DR [place] [address] Social History Tobacco Use Types Packs/Day Years [...] AM EDT Hospital Encounter Non-[place] [address] Arrived documented as of this encounter Procedures [...] AM EST Jairon Fenton MD CHEMISTRY ORDERABLES [facility] * (ABNORMAL) CREATININE, SERUM (04/01/2010 6:09 [...] MD CHEMISTRY ORDERABLES Performing Organization Address [facility] de Phone Number CERNER CHRISTOSENNIUM * BUN (04/01/2010 6:09 AM EST) Blood Urea Nitrogen 12 10 - 20 mg/dL [facility] MILLENNIUM Blood specimen (specimen) 04/01/2010 6:09 AM EST 04/01/2010 6:09 AM EST Jairon Fenton MD CHEMISTRY ORDERABLES Performing Organization Address [facility] de Phone Number CERNER MILLENNIUM * [...] HEMATOLOGY ORDERABLE S Performing Organization Address [facility] de Phone Number CERNER MILLENNIUM * [...] MD CHEMISTRY ORDERABLES Performing Organization Address [facility] Phone Number CERIVIS MILLENNIUM * ELECTROLYTE PANEL [...] MD CHEMISTRY ORDERABLES Performing Organization Address [facility] de Phone Number CERIVIS MILLENNIUM * CREATININE, SERUM (03/30/2010 6:05 PM EST) Creatinine 0.87 0.80 - 1.50 mg/dL [facility] Est Glomerular Filtration Rate >60 >=60 [facility] Comment: The National Kidney Disease [...] 18 10 - 20 mg/dL [facility] Blood specimen (specimen) 03/30/2010 6:05 PM EST 03/30/2010 6:13 PM EST Jairon Fenton MD CHEMISTRY ORDERABLES Performing Organization Address [facility] de Phone Number DEJA SEGOVIA * APTT (03/30/2010 6:05 PM EST) Partial Thromboplastin Time 26 25 - 37 sec CERNER CHRISTOSENNIUM Comment: Recommended therapeutic PTT range for full dose unfractionated heparin is 80-114 seconds. Blood specimen (specimen) 03/30/2010 6:05 PM EST 03/30/2010 6:14 PM EST Jairon Fenton MD HEMATOLOGY ORDERABLE S Performing Organization Address [facility] Phone Number DEJA SEGOVIA * PROTIME-INR (03/30/2010 6:05 PM EST) Prothrombin Time 14.2 12.3 - 14.7 sec [facility] Comment: [facility] Transfusion Committee Guidelines: INR less than 2.0, PTT less than OR equal to 43.5 seconds, or Fibrinogen greater than or equal to 100 mg/dl indicate adequate procoagulant activity for hemostasis in patients without underlying bleeding disorders. International Normalization Ratio 1.1 0.9 - 1.1 [facility] Blood specimen (specimen) 03/30/2010 6:05 PM EST 03/30/2010 6:14 PM EST Jairon Fenton MD HEMATOLOGY ORDERABLE S Performing Organization Address [facility] de Phone Number DEJA SEGOVIA * [...] 44.2 35.0 - 46.0 fL [facility] RDW coefficient of variation 13.1 10.9 - 14.4 % [facility] Mean Platelet Volume 10.6 9.0 - 12.0 fL [facility] Blood specimen (specimen) 03/30/2010 6:05 PM EST 03/30/2010 6:13 PM EST Jairon Fenton MD HEMATOLOGY ORDERABLE S Performing Organization Address [facility] de Phone Number [facility] * REFLEX LAB-ANTIBODY SCREEN (03/30/2010 3:17 PM EST) [facility] Ab Screen Interp Negative [facility] Expires at [id number] on: [id number] [facility] Blood specimen (specimen) 03/30/2010 3:17 PM EST 03/30/2010 3:17 PM EST Javier Barajas MD BLOOD BANK LAB ORDER PRECIOUS Performing Organization Address [facility] de Phone Number [facility] * REFLEX LAB-ABO/RH (03/30/2010 3:17 PM EST) [facility] ABORH Type A Pos [facility] Blood specimen (specimen) 03/30/2010 3:17 PM EST 03/30/2010 3:17 PM EST Javier Barajas MD BLOOD BANK LAB ORDER PRECIOUS Performing Organization Address [facility] de Phone Number [facility] * ELECTROLYTE PANEL (03/30/2010 2:50 PM EST) [facility] Sodium 135 135 - 145 mmol/L [facility] Potassium 4.3 3.5 - 5.0 mmol/L [facility] Comment: Please note: ??Patients with [...] MD CHEMISTRY ORDERABLES Performing Organization Address [facility] Phone Number [facility] * BUN (03/30/2010 2:50 PM EST) Blood Urea Nitrogen 18 10 - 20 mg/dL [facility] Blood specimen (specimen) 03/30/2010 2:50 PM EST 03/30/2010 3:05 PM EST Javier Barajas MD CHEMISTRY ORDERABLES Performing Organization Address [facility] Phone Number [facility] * GLUCOSE, RANDOM (03/30/2010 2:50 PM EST) Glucose 95 <=199 mg/dL [facility] Comment:Diabetes: >=200 mg/d L plus symptoms Blood specimen (specimen) 03/30/2010 2:50 PM EST 03/30/2010 3:05 PM EST Javier Barajas MD CHEMISTRY ORDERABLES Performing Organization Address [facility] Phone Number [facility] * APTT (03/30/2010 2:50 PM EST) Partial Thromboplastin Time 25 25 - 37 sec [facility] Comment: Recommended therapeutic PTT range for full dose unfractionated heparin is 80-114 seconds. Blood specimen (specimen) 03/30/2010 2:50 PM EST 03/30/2010 3:06 PM EST Javier Barajas MD HEMATOLOGY ORDERABLE S Performing Organization Address [facility] Phone Number [facility] * PROTIME-INR (03/30/2010 2:50 PM EST) Prothrombin Time 14.1 12.3 - 14.7 sec [facility] Comment: [facility] Transfusion Committee Guidelines: INR less than [...] on filedocumented in this encounter Care Teams Blacksmith Assistant Relationship Specialty Start Date End Date Marques Martinez MD [address] [place] [address] PCP - General 04/01/10 04/08/11 documented as of this encounter
[2024-05-19 08:33] VITALS: BP 125/60; PULSE 62
== END 2024-06-03 23:59 | disposition home or self-care (01) ==
LOC: CR 08:07
PROVIDERS: PCP Family Medicine; Visit Provider Internal Medicine Cardiovascular Disease
DX: R69 Illness, unspecified (principal)

== ENCOUNTER → 2024-05-20 09:29 | Outpatient (BNVA) | payer MEDICARE, SELFPAY | PROVIDERS: PCP Family Medicine; Referring Provider Family Medicine; Visit Provider Internal Medicine Cardiovascular Disease | DX: I42.9 Cardiomyopathy, unspecified (principal); I25.10 Atherosclerotic heart disease of native coronary artery without angina pectoris; Z95.810 Presence of automatic (implantable) cardiac defibrillator | CPT/HCPCS: 99214 ==

== ENCOUNTER 2024-06-02 02:17 | Outpatient (CLI) | payer MEDICARE, SELFPAY ==
--- NOTE | 2024-06-02 07:15 | DI.NM_ITS ---
APPROVED REPORT Exam: Pharmacologic Patient Location: Out-Patient Room/Bed: Stress Nurse: Sheri León RN Ordering Provider:CECELIA AGUILAR, Contact Number: BMI: 38.99 Baseline Rhythm: Paced Indications: FINN Medical History Medical History: Cardiac pacemaker, biventricular ICD, cardiomyopathy, LPRD, [place], COPD, ischemic cardi omyopathy, HLD, CAD, complete AV block, EF 30-35% Cardiac Medications: Apixaban, atorvastatin, carvedilol, furosemide, lisinopril, nitro, spironolacato ne, flomax Allergies: NKA Cardiac Risk Factors: HTN, HLD, COPD, former smoker, CVD Previous Cardiac Procedures: Pacemaker placement Pretest Chest Pain Characteristics: None Exercise History: Indeterminate Physical Disabilities: None Lung Sounds: Clear to auscultation Heart Sounds: Irregular Stress Test Details Test: Pharmacologic stress was paired with low level exercise. Reason for pharmacologic stress test: Pacemaker. Nuclear Acquisition: Rest Tc-99m/Stress Tc-99m 1 day Rest Isotope: Tc-99m Sestamibi. Dose: 10.9 Date: 06/02/2024 Injection Time: 1055 Stress Isotope: Tc-99m Sestamibi. Dose: 30.8 Date: 06/02/2024 Injection Time: 1240 HR Resting HR Supine: 83 bpm Max Heart Rate (APMHR): 137 bpm Resting HR Standin bpm Target HR (85% APMHR): 116 bpm Max HR Achieved: 124 bpm % of APMHR: 91 Recovery HR: 91 bpm BP Resting BP Supine: 138/70 mmHg Resting BP Standin/72 mmHg Max BP: 152/72 mmHg Recovery BP: 140/72 mmHg ECG Resting ECG: Paced Ectopy: Occasional PVC's Stress ECG: Paced ST Change: Nondiagnostic V-pacing or LBBB Arrhythmia: Ocassional PVC's Recovery ECG: Paced Recovery ST Change: Nondiagnostic V-pacing or LBBB Recovery Arrhythmia: Occasional PVC's Clinical Stress Symptoms: lightheaded Angina Score: None Rate Pressure Product: 99003 Stress ECG Conclusion 1. Electrocardiogram showed atrial sensed and ventricular paced rhythm 2. Patient underwent testing using pharmacologic stress with regadenoson 3. Peak heart rate achieved was 91% of maximal predicted for age 4. The electrocardiographic portion of the test was nondiagnostic due to ventricular pacing 5. There were rare PVCs 6. See MPI report MPI Conclusion Myocardial perfusion is abnormal. There is no ischemia. There appears to be infarction of the infer obasal and posterior lateral ruiz Calculated EF is 26%. There are wall motion abnormalities involving the inferobasal and posterolater al segments
[2024-06-02] MEDS: Regadenoson 0.4 MG/5 ML SYR IVP (13:41)
== END 2024-06-02 02:37 ==
LOC: DI 02:17
PROVIDERS: PCP Family Medicine; Visit Provider Internal Medicine Cardiovascular Disease
DX: I25.10 Atherosclerotic heart disease of native coronary artery without angina pectoris (principal)
CPT/HCPCS: 78452; 93016; 93018; 93017; J2785

== ENCOUNTER → 2024-06-10 09:14 | Outpatient (BNVA) | payer MEDICARE, SELFPAY | PROVIDERS: PCP Family Medicine; Referring Provider Family Medicine; Visit Provider Internal Medicine Cardiovascular Disease | DX: Z95.810 Presence of automatic (implantable) cardiac defibrillator (principal); I25.10 Atherosclerotic heart disease of native coronary artery without angina pectoris | CPT/HCPCS: 99214 ==

== ENCOUNTER 2024-06-30 08:07 | Outpatient (RCR) | payer SELFPAY ==
[2024-06-04 00:13] VITALS: BP 125/60; PULSE 62
--- OUTSIDE RECORDS SUMMARY | 2024-06-07 08:12 | XMS_ITS | Encounter Summary ---
Author Organization [facility] Address [address] [place] [address] Care Team Providers Care Oral Surgery Assistant Name Role Phone Unavailable Primary Care Provider Unavailabl e Encounter Details Date Type Department Care Team (Late st Contact Info) Description 12/02/2012 Results Only [facility] ([facility] [place]) [address] [place] [id number] Satinder Edwards MD [address] [place] [phone] Social History Tobacco Use Types Packs/Day Years [...] Name: ? ABDIAZIZCHARMAINE ? Accession #: ? [id number] ? : ? 1940 (Age: 72) ??M [...] ORDERABLES Final Result [facility] [address] [place] [address] documented in this encounter Visit Diagnoses Not on filedocumented in this encounter
--- OUTSIDE RECORDS SUMMARY | 2024-06-07 08:12 | XMS_ITS | Encounter Summary ---
Author Organization [facility] Address [address] [place] [address] Care Team Providers Care Dry Folder Cloth Name Role Phone Clem Olvera MD Primary Care Provider [phone] Reason for Visit * Reason Onset Date Comments Appointment Related 10/23/2016 Check for fo llow up of pacer Encounter Details Date Type Department Care Team ([facility] st Contact Info) Description 10/23/2016 Telephone [facility] Cardiology - [address] [place] [address] Pacemaker, Pace Appointment Related (Check [...] Telephone Encounter - Pushpa Shay - 10/23/2016 0607 EDT Spoke with Mrs. Iglesias who stated that Nabil had his pacemaker checked in [place] where they are for the winter. They have some back and are being followed by Dr. Hurd at [facility]. documented in this encounter Plan of Treatment Not on file documented as of this encounter Visit Diagnoses Not on filedocumented in this encounter Care Teams Dry Folder Cloth Relationship Specialty Start Date End Date Clem Olvera MD [address] [place] [address] PCP - General 12/18/15 documented as of this encounter
--- OUTSIDE RECORDS SUMMARY | 2024-06-07 08:12 | XMS_ITS | Encounter Summary ---
Author Organization [facility] Address [address] [place] [address] Care Team Providers Care Mortgage Clerk Name Role Phone Clem Olvera MD Primary Care Provider [phone] Reason for Visit * Reason Onset Date Comments Other 04/04/2019 Transfer request for Pacer Care at [facility] Encounter Details Date Type Department Care Team (Late st Contact Info) Description 04/04/2019 Telephone [facility] [address] [place] [address] Giselle Hill, DIRECTOR OF PRODUCT MANAGEMENT Other (Transfer request for Pacer Care at [facility]) Social History Tobacco Use Types Packs/Day Years [...] 04/04/2019 1503 EST I went into the [employer] Website and released pt to [facility] Pacer Clinic as requested. * Telephone Encounter - Suze Reynoso - 04/04/2019 1342 EST PT WILL BE HAVING HIS PACER CARE DONE AT [facility], PLEASE RELEASE HIS REMOTE MONITORING SO THAT THEY CAN PICK IT UP documented in this encounter Plan of Treatment Not on file documented as of this encounter Visit Diagnoses Not on filedocumented in this encounter Care Teams Mortgage Clerk Relationship Specialty Start Date End Date Clem Olvera MD [address] [place] [address] PCP - General 12/18/15 documented as of this encounter
--- OUTSIDE RECORDS SUMMARY | 2024-06-07 08:12 | XMS_ITS | Encounter Summary ---
Author Organization [facility] Address [address] [place] [address] Care Team Providers Care Napkin Machine Operator Name Role Phone Clem Olvera MD Primary Care Provider [phone] Reason for Referral * (Routine) - Closed [...] Service at [facility] at [phone] or , extension [phone]. For any scheduling of appointments, please call [phone] or , extension [phone]. . * (Routine) - Closed Specialty Diagnoses [...] Expiration Date V isits Requested Visits Authorized [id number] Closed Specialty Services Required 02/27/2016 1 1 [...] [facility] located at [address] [facility] in [place] -Clinics are also held in [facility], [place], [place] and [facility]. If you live in those areas, we will make arrangements for follow-up appointments in one of those clinics.. Encounter Details Date Type Department Care Team (Late st Contact Info) Description 02/27/2016 6:30 EDT - 02/28/2016 13:39 EDT Hospital Encounter [facility] Cardiac/Telemetry Unit [address] [place] [address] Gulshan Drummond MD PhD [address] [facility], [address] [place] [phone] Gulshan Montoya Sa, MD [address] [facility] [address] [place] [phone] AICD lead malfunction, subsequent encounter; ICD [...] EF of 20-25% status post silent inferior WI in the early . 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 He had heart failure symptoms that started around May 2013, when he was in [place], [place]. This triggered major cardiac workup including [...] then underwent a device upgrade to a REMOTE SENSING SPECIALIST-D device with biventricular pacing for his EF [...] been followed in cardiology outreach clinic at [facility] in [place]. Continued high pacing threshold on the epicardial [...] and plans to follow up with his Bog Cutter in [place] in 6-8 weeks for which [...] HGBA1C Discharge Follow Up Appointments Scheduled with [facility] Appointments Outside of [facility] We Will Schedule Studies We Will Schedule Appointments We Recommend but have not been Scheduled Beatrice De La Garza NP 02/27/2016 10:59 Cosigned by Gulshan Montoya Sa, MD at 02/28/2016 15:19 EDT Associated attestation - Gulshan Montoya Sa, MD - 02/28/2016 8369 EDT Attending Attestation: I saw and evaluated the patient. I discussed the case with the resident/INSURANCE MARKETING SPECIALIST/fellow and agree with the findings and plan [...] Notes * Lou Alfonso, JADON - 02/28/2016 7123 EDT Pt awaiting discharge. IV and tele was removed by primary nurse. This RN administered flu shot and provided flu information sheet. AVS and medications reviewed by RN with patient and . AVS statedcoreg was 3.25mg BID, which pt states no, they must have copied it down wrong. I'm not doing that.We've been through this in [place]. It makes me pass out. RN suggested checking with team, which pt denied and states I wont take it twice a day. He did agree to review this medication with his recruiting intern and plans to remain on his home dosing, which was in the morning. He received dose this am. Ptleft via wheelchair with . * Jennifer Beatrice - 02/28/2016 1329 EDT Brief visit with patient and as they were being discharged. Patient states he is independent in self care and home management. He feels well supported by friends and neighbors. Patient has Medicare and [facility]. Pharmacy is [facility] in [facility]. No needs identified at time of discharge. will provide transportation. Beatrice Rodriguez RN Case Manager #[id number] documented in this encounter H&P Notes * Navdeep Hurd MD - 02/27/2016 0830 EDT Cardiology Admitting H&P Admit Date: 02/27/2016 Date of Service: 02/27/2016 PCP: Clem Olvera Code Status: Full Code Chief Complaint: FINN, device battery depletion, high pacing threshold on epicardial lead HPI: 74-year-old man with coronary artery disease and ischemic cardiomyopathy status post silent inferior WI in the early . 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 He had heart failure symptoms that started around May 2013, when he was in [place], [place]. This triggered major cardiac workup including [...] point, his device was upgraded to a REMOTE SENSING SPECIALIST-D device with biventricular pacing. By the patient's [...] been followed in cardiology outreach clinic at [facility] in [place]. Continued high pacing threshold on the epicardial LV lead has caused a very rapid battery depletion. Dr. David Adams in [place] recommended against lead extraction and reimplant as [...] ??? Pacemaker insertion 2002 2013 second pacemaker [facility] Social History Family History Social History Substance Use Topics ??? Smoking status: Former Smoker Years: 35.00 Quit date: 1989 ??? Smokeless tobacco: Not on file ??? Alcohol use 6.6 oz/week 6 Cans of beer, 5 Glasses of wine per week , lives with , retired. Spends leong in [place]. Spends the chery in [place], [place]. Quit smoking in 1990. Has 2 [...] and ischemic cardiomyopathy status post silent inferior WI in the early . Also diagnosed with [...] point, his device was upgraded to a REMOTE SENSING SPECIALIST-D device with biventricular pacing with a surgically [...] Care - Mady Bruno RN - 02/27/2016 5420 EDT Problem: Daily Care Plan Goals Goal: [...] 03/12/2016 12:4 3 EST us Scan 2 Saddle Maker PROCEDURE/MINOR SURGICAL OR DERABLES Final Result * ECG REPORT - SCANNED (03/04/2016 14:06 EDT) 03/04/2016 14:0 6 EDT us Scan 2 Saddle Maker PROCEDURE/MINOR SURGICAL OR DERABLES Final Result * ECG REPORT - SCANNED (03/04/2016 14:06 EDT) 03/04/2016 14:0 6 EDT us Scan 2 Saddle Maker PROCEDURE/MINOR SURGICAL OR DERABLES Final Result * IMPLANT RECORD - SCANNED (03/04/2016 14:06 EDT) 03/04/2016 14:0 6 EDT us Scan 2 Saddle Maker PROCEDURE/MINOR SURGICAL OR DERABLES Final Result * ECG REPORT - SCANNED (03/01/2016 8:58 EDT) 03/01/2016 8:58 EDT us Scan 2 Saddle Maker PROCEDURE/MINOR SURGICAL OR DERABLES Final Result * ECG REPORT - SCANNED (03/01/2016 8:58 EDT) 03/01/2016 8:58 EDT us Scan 2 Saddle Maker PROCEDURE/MINOR SURGICAL OR DERABLES Final Result * [...] 9.84 4.0 - 10.4 K/cmm 02/28/2016 6:26 [facility] RBC 4.42 4.36 - 5.78 M/cmm 02/28/2016 6:26 [facility] Hemoglobin 14.2 13.8 [...] 11.8 - 14.1 % 02/28/2016 6:26 EDT [facility] RDW-SD 44.6 36.5 - 45.9 fl 02/28/2016 6:26 EDT [facility] PLT 151 141 - 377 K/cmm 02/28/2016 6:26 EDT [facility] MPV 11.2 9.5 - 12.7 fl 02/28/2016 6:26 EDT [facility] Blood specimen (specimen) BLOOD SPECIMEN / Unknown 02/28/2016 5:44 EDT 02/28/2016 6:13 EDT Beatrice De La Garza INSURANCE MARKETING SPECIALIST HEMATOLOGY & PF4 ORDE RABLES Final Result Performing Organization Address City/[facility] Co de Phone Number [facility] [address] [place] [address] * (ABNORMAL) CREATININE (02/28/2016 5:44 EDT) Creatinine 0.65(L) 0.66 - 1.25 mg/dl 02/28/2016 6:48 EDT [facility] GFR, Calculated 95 >60 ml/min/1.7 3m2 02/28/2016 6:48 EDT [facility] Comment: eGFR calculated using CKD-EPI equation for non Americans. Multiply eGFR by 1.16 for Americans. Blood specimen (specimen) BLOOD SPECIMEN / Unknown 02/28/2016 5:44 EDT 02/28/2016 6:13 EDT Beatrice De La Garza NP CHEMISTRY & BLOOD GAS ORDERABLES Final Result Performing Organization Address City/[facility]/ZIP Co de Phone Number [facility] [address] [place] [address] * BUN (02/28/2016 5:44 EDT) BUN 14 10 - 26 mg/dl 02/28/2016 6:48 EDT [facility] Blood specimen (specimen) BLOOD SPECIMEN / Unknown 02/28/2016 5:44 EDT 02/28/2016 6:13 EDT Beatrice De La Garza INSURANCE MARKETING SPECIALIST CHEMISTRY & BLOOD GAS ORDERABLES Final Result Performing Organization Address [facility] Co de Phone Number [facility] [address] [place] [address] * ELECTROLYTES (02/28/2016 5:44 EDT) Sodium 138 136 - 145 mEq/L 02/28/2016 6:48 EDT [facility] Potassium 4.7 3.5 - 5.0 mEq/L 02/28/2016 6:48 EDT [facility] Chloride 104 96 - 110 mEq/L 02/28/2016 6:48 EDT [facility] CO2 25 22 - 32 mEq/L 02/28/2016 6:48 EDT [facility] Comment:Note new reference r hong 02/19/16 Blood specimen (specimen) BLOOD SPECIMEN / Unknown 02/28/2016 5:44 EDT 02/28/2016 6:13 EDT Result [facility] Beatrice De La Garza NP CHEMISTRY & BLOOD GAS ORDERABLES Final Result Performing Organization Address [facility] Co de Phone Number [facility] [address] [place] [address] * PORTABLE CHEST 1 VIEW (02/27/2016 12:46 [...] 02/27/2016 12:4 1 EDT Narrative [facility] EKG - 02/28/2016 8:57 EDT ? [facility] ? Test Date: ?2016-02-27 Pat Name: ? NABIL IGLESIAS ? Department: ?? HERN[address] 5 ? Room: ? MW514 Gender: ? M ?Taker Off Drying Kiln: ?? [id number] : ?1940 ? Requested By: KAIN Gallagher Order Number: [id number] ? Julia WRIGHT: ?? BRAYAN CUENCA MD ? Measurements Intervals ?Linn ? Rate: ? 63 ? P: ?15 FL: ? 159 ?QRS: ?234 QRSD: ? 156 [...] Date: 2016-02-27 Pat Name: NABIL IGLESIAS Department: [place] [address] Room: [facility] Gender: M Taker Off Drying Kiln: [id number] : 1940 Requested By: KAIN Gallagher Order Number: [id number] Reading MD: BRAYAN CUENCA MD Measurements Intervals Linn Rate: 63 P: 15 FL: 159 QRS: 234 QRSD: 156 T: 15 QT: 479 QTc: 493 Interpretive Statements ELECTRONIC VENTRICULAR PACEMAKER Compared to ECG 02/27/2016 08:10:34 No significant changes I reviewed the tracing and have either agreed or edited the findings inthis report. Electronically Signed On 02-28-16 08:57:02 EDT by BRAYAN BEEBE. us Gulshan Drummond MD PhD CARDIAC ECG OR DERABLES Final Result Performing Organization Address [facility] Co de Phone Number [facility] EKG * PROTIME (02/27/2016 8:45 EDT) Pro Time 12.3 10.3 - 13.1 secs 02/27/2016 9:10 EDT [facility] Comment: New prothrombin t josue range effective 01/29/16 I.N.R. 1.1 0.9 - 1.1 Ratio 02/27/2016 9:10 EDT [facility] Comment: Moderate Intensity Coumadin INR = 2.0-3.0 Adjustments in anticoagulant therapy dose should be based upon the INR and NOT the Pro Time. Blood specimen (specimen) BLOOD SPECIMEN / Unknown 02/27/2016 8:45 EDT 02/27/2016 8:54 EDT us Gulshan Drummond MD PhD HEMATOLOGY & P F4 ORDERABLES Final Result Performing Organization Address [facility] Co de Phone Number [facility] [address] [place] [address] * HEMAGRAM (02/27/2016 8:45 EDT) WBC 6.47 4.0 - 10.4 K/cmm 02/27/2016 8:57 EDT [facility] RBC 4.51 4.36 - 5.78 M/cmm 02/27/2016 8:57 T [facility] Hemoglobin 14.7 13.8 - 17.3 gm/dl 02/27/2016 8:57 EDT [facility] HCT 41.7 39.5 - 50.2 % 02/27/2016 8:57 EDT [facility] MCV 93 81 - 95 fl 02/27/2016 8:57 EDT [facility] MCH 32.6 27.6 - 33.0 pg 02/27/2016 8:57 EDT [facility] MCHC 35.3 32.8 - 36.4 gm/dl 02/27/2016 8:57 EDT [facility] RDW-CV 13.1 11.8 - 14.1 % 02/27/2016 8:57 EDT [facility] RDW-SD 44.0 36.5 - 45.9 fl 02/27/2016 8:57 EDT [facility] PLT 176 141 - 377 K/cmm 02/27/2016 8:57 EDT [facility] MPV 10.7 9.5 - 12.7 fl 02/27/2016 8:57 EDT [facility] Blood specimen (specimen) BLOOD SPECIMEN / Unknown 02/27/2016 8:45 EDT 02/27/2016 8:54 EDT us Gulshan Drummond MD PhD HEMATOLOGY & P F4 ORDERABLES Final Result Performing Organization Address City/[facility] Co de Phone Number [facility] [address] [place] [address] * ELECTROLYTES (02/27/2016 8:45 EDT) Sodium 142 136 - 145 mEq/L 02/27/2016 9:13 T [facility] Potassium 4.7 3.5 - 5.0 mEq/L 02/27/2016 9:13 T [facility] Chloride 103 96 - 110 mEq/L 02/27/2016 9:13 EDT [facility] CO2 27 22 - 32 mEq/L 02/27/2016 9:13 T [facility] Comment:Note new reference r hong 02/19/16 Blood specimen (specimen) BLOOD SPECIMEN / Unknown 02/27/2016 8:45 EDT 02/27/2016 8:54 EDT us Gulshan Drummond MD PhD CHEMISTRY & BL OOD GAS ORDERABLES Final Result Performing Organization Address City/[facility]/ZIP Co de Phone Number [facility] [address] [place] [address] * CREATININE (02/27/2016 8:45 EDT) Creatinine 0.69 0.66 - 1.25 mg/dl 02/27/2016 9:13 EDT [facility] GFR, Calculated 93 >60 ml/min/1.7 3m2 02/27/2016 9:13 EDT [facility] Comment: eGFR calculated using CKD-EPI equation for non Americans. Multiply eGFR by 1.16 for Americans. Blood specimen (specimen) BLOOD SPECIMEN / Unknown 02/27/2016 8:45 EDT 02/27/2016 8:54 EDT us Gulshan Drummond MD PhD CHEMISTRY & BL OOD GAS ORDERABLES Final Result Performing Organization Address City/[facility] Co de Phone Number [facility] [address] [place] [address] * BUN (02/27/2016 8:45 EDT) BUN 17 10 - 26 mg/dl 02/27/2016 9:13 EDT [facility] Blood specimen (specimen) BLOOD SPECIMEN / Unknown 02/27/2016 8:45 EDT 02/27/2016 8:54 EDT us Gulshan Drummond MD PhD CHEMISTRY & BL OOD GAS ORDERABLES Final Result Performing Organization Address City/[facility] Co de Phone Number [facility] [address] [place] [address] * EKG 12-LEAD (02/27/2016 8:08 EDT) 02/27/2016 8:08 EDT Narrative [facility] EKG - 02/28/2016 9:01 EDT ? [facility] ? Test Date: ?2016-02-27 Pat Name: ? NABIL IGLESIAS ? Department: ?? [facility] ? Room: ? IF9129 Gender: ? M ?Taker Off Drying Kiln: ?? [id number] : ?1940 ? Requested By: MARCIA Boo Order Number: [id number] ? Reading MD: ?? BRAYAN CUENCA MD ? Measurements Intervals ?Linn ? Rate: ? 69 ? P: ?147 FL: ? 134 ?QRS: ?-67 QRSD: ? 160 [...] Pat Name: NABIL IGLESIAS Department: [facility] Room: [id number] Gender: M Taker Off Drying Kiln: [id number] : 1940 Requested By: MARCIA Boo Order Number: [id number] Reading MD: BRAYAN CUENCA MD Measurements Intervals Linn Rate: 69 P: 147 FL: 134 QRS: -67 QRSD: 160 T: -59 QT: 434 QTc: 467 Interpretive Statements ELECTRONIC ATRIAL PACEMAKER ELECTRONIC VENTRICULAR PACEMAKER Compared to ECG 02/27/2016 08:08:46 No significant changes I reviewed the tracing and have either agreed or edited the findings inthis report. Electronically Signed On 02-28-16 09:01:04 EDT by BRAYAN BEEBE. Navdeep Hurd MD CARDIAC ECG ORDERABLES Final Result [facility] EKG documented in this encounter Visit [...] Reason: Other - Comment: pt already took ACOUSTICAL CARPENTER, takes other meds at HS) 921 (Given [...] Reason: Other - Comment: pt already took ACOUSTICAL CARPENTER, takes other meds at HS)210 (Given - Provider: Mady Bruno, JADON) spironolactone (ALDACTONE) tablet 12.5 mg 12.5 mg, oral, DAILY, First dose on Thu02/27/16 at 1245, Until Discontinued, Routine 1306 (Not Given - Provider: Nneka Stuart RN - Reason: Other - Comment: pt already took ACOUSTICAL CARPENTER, takes other meds at HS)210 (Given - Provider: Mady Bruno RN) tamsulosin (FLOMAX) capsule 0.4 mg 0.4 mg, oral, DAILY, First dose on Thu02/27/16 at 1245, Until Discontinued, Routine 1306 (Not Given - Provider: Nneka Stuart RN - Reason: Other - Comment: pt already took ACOUSTICAL CARPENTER, takes other meds at HS) 09 (Given [...] 02/02 documented in this encounter Care Teams Napkin Machine Operator Relationship Specialty Start Date End Date Clem Olvera MD [address] [place] [address] PCP - General 12/18/15 documented as of this encounter
--- OUTSIDE RECORDS SUMMARY | 2024-06-07 08:12 | XMS_ITS | Clinical Summary ---
Author Organization [facility] [place] [address] Care Team Providers Care Cable Tower Operator Name Role Phone Donny Cooper MD Primary Care Provider [phone] Allergies No known active allergies Medications Medication [...] Encounters Date Type Department Care Team Description 06/01/2024 Notes Only Cardiology at [address] [phone] Marina Caballero APRN 05/02/2024 10:00 AM EST - 05/02/2024 11:59 PM EST Hospital Encounter Non-Invasive [place] [address] Discharge Disposition: Home 03/18/2024 Notes Only Cardiology at [address] [phone] Marina Caballero, ASSESSMENT SPECIALIST from Last 3 Months Immunizations Name Administration [...] AM EDT Hospital Encounter Non-Invasive [place] [address] Arrived Health Maintenance Due Date Last Done [...] 03/06/2006, 02/24/2005 Medical Devices Implanted Type Area Tank Car Repairer Device Identifier Shelf Expiration Date Model / Serial / Lot Mdt : [id number] : [id number] Implanted: (Quantity not on file) Cardiac Resynchronization Therapy - Defibrillator Chest [employer] - [id number] / [id number] / Procedures Procedure Name Priority Date/Time Associated Diagnosis Comments PRO ICD INTERROGATION REMOTE UP TO 90 DAYS Routine 03/08/2024 6:26 AM EST from Last 3 Months Results * Cardiac Device Check - Remote (03/08/2024 6:26 AM EST) Anatomical Region Laterality Modality Other 03/08/2024 6:26 AM EST Alber Seals MD IMPLANTABLE CARDIAC DEVICE from Last 3 Months Care Teams Cable Tower Operator Relationship Specialty Start Date End Date Donny Cooper MD [address] [place] [address] PCP - General Family Medicine 02/25/19
--- OUTSIDE RECORDS SUMMARY | 2024-06-07 08:12 | XMS_ITS | Encounter Summary ---
Author Organization [facility] Address [address] [place] [address] Care Team Providers Care Gym Supervisor Name Role Phone Clem Olvera MD Primary Care Provider [phone] Reason for Referral * Cardiology (3 - [...] Expiration Date Visits Re quested Visits Authorized [id number] Closed 02/13/2016 1 1 Encounter Details Date Type Department Care Team (Latest Contact Info) Description 02/13/2016 Pre-Procedure Orders Encounter [facility] [address], [place] [address] Navdeep Hurd MD [address] [place] [address] [phone] ICD (implantable cardioverter-defibril lator) battery depletion (Primary [...] EDT Narrative 02/27/2016 15:17 EDT *Cardiology* [address] [place] [address] Lead Revision (Report amended ) Patient: Nabil Iglesias ?Study Date: ?02/27/2016 ? Accession #: ? [id number] : ? 1940 Referring: Clem Olvera Attending: [...] Venograms were performed in the [place] projections and a suitable mid-lateral LV branch [...] fascia. The leads were connected to a DRAIN CLEANER-D device. Device and Lead detail in table [...] Implanted device: Medtronic - Viva Quad XT DRAIN CLEANER-D DF4 - Serial number: [id number] Explanted device: Medtronic - Viva XT DRAIN CLEANER-D DF4 - Serial number: [id number]. LEAD PARAMETERS + + + + + [...] ? Medtronic ? Enpath ? information ?? 5144 ? 6969M ? Attain ? Epicardial ? Performa 4298 ? + + + + + + Serial number [id number] ? [id number] ?? [id number] ?? [id number] ? + + + + [...] Note Gulshan Drummond MD - 05/12/2016 *Cardiology* [address] [place] [address] Lead Revision (Report amended ) Patient: Nabil Iglesias Study Date: 02/27/2016 : 1940 Referring: Clem Olevra Attending: Gulshan Drummond MD, PhD Fellow: Assisting: [...] therefore over an 0.35 glide wire a Merrill OTW 6F ([facility]) 6 mm-40 mm balloon [...] Venograms were performed in the [place] projections and a suitable mid-lateral LV branch [...] fascia. The leads were connected to a DRAIN CLEANER-D device. Device and Lead detail in table [...] topical skin adhesive. IMPLANTED HARDWARE: Implanted device: [employer] - Viva Quad XT DRAIN CLEANER-D DF4 - Serial number: [id number]$. Explanted device: Medtronic - Viva XT DRAIN CLEANER-D DF4 - Serial number: [id number]. LEAD PARAMETERS + + + + + [...] + + + + + Serial number [id number] + + + + + + [...] situ documented in this encounter Care Teams Gym Supervisor Relationship Specialty Start Date End Date Clem Olvera MD [address] [place] [address] PCP - General 12/18/15 documented as of this encounter
--- OUTSIDE RECORDS SUMMARY | 2024-06-07 08:12 | XMS_ITS | Encounter Summary ---
Author Organization [facility] Address [address] [place] [address] Care Team Providers Care Clinical Informatics Director Name Role Phone Clem Olvera MD Primary Care Provider Encounter Details Date Type Department Care Team (Late st Contact Info) Description 03/16/2019 Abstract [facility] [address] [place] [address] Ronal Avelar RN AV block, 2nd degree [...] Device Narrative 03/24/2019 10:30 EST [facility] Device Visit Religious Ritual Slaughterer: ProFibrixtronic Device Type: PLASTIC JOINT MAKER-D Service: Remote ? Indication: ICMO Battery Longevity: [...] Miguel Ángel George APRN Miguel Ángel George PRODUCTION DRILLING MACHINE OPERATOR CV IMPLANTABLE CARDIAC DEVICE Final Result documented in this encounter Visit Diagnoses Diagnosis AV block, 2nd degree- Primary Other second degree atrioventricular block documented in this encounter Care Teams Clinical Informatics Director Relationship Specialty Start Date End Date Clem Olvera MD [address] [place] [address] PCP - General 12/18/15 documented as of this encounter
--- OUTSIDE RECORDS SUMMARY | 2024-06-07 08:12 | XMS_ITS | Encounter Summary ---
Author Organization [facility] Address [address] [place] [address] Care Team Providers Care Director Of Donor Relations Name Role Phone Unavailable Primary Care Provider Unavailabl e Encounter Details Date Type Department Care Team (Late st Contact Info) Description 05/06/2001 Results Only [facility] - Maple conversion [address] [place] [address] Hernandez Partida MD [address] [place] [phone] Social History Tobacco Use Types Packs/Day Years [...] is submitted entirely in cassette (B). ??(Naty Caal)/[facility] End of Report DIVYA BERRY 05/06/2001 05/07/2001 9:2 5 EST us Hernandez Partida MD PATHOLOGY ORDERABLES Final Res ult DIVYA BERRY [address] [place] [address] documented in this encounter Visit Diagnoses Not on filedocumented in this encounter
--- OUTSIDE RECORDS SUMMARY | 2024-06-07 08:12 | XMS_ITS | Encounter Summary ---
Author Organization [facility] Address [address] [place] [address] Care Team Providers Care Personal Computer Specialist Name Role Phone Unknown, Provider Primary Care Provider Clem Alcala MD Primary Care Provider [phone] Encounter Details Date Type Department Care Team (Late st Contact Info) Description 11/29/2015 Pre-Procedure Orders Encounter [facility] [address] [place], [place] [address] Navdeep Hurd MD [address] [place] [address] [address] Social History Tobacco Use Types [...] Ferdinand Nabil Boo. Attending: Dr. Dean Bailey Employee Service Officer: Dr. Fantasma Dhillon History/indication: The patient is [...] Patient: Nabil Streeter Attending: Dr. Dean Bailey Employee Service Officer: Dr. Fantasma Dhillon History/indication: The patient is [...] on filedocumented in this encounter Care Teams Personal Computer Specialist Relationship Specialty Start Date End Date Unknown, Provider, PCP - General 12/06/12 12/17/15 Clem Olvera MD [address] [place] [address] PCP - General 12/18/15 documented as of this encounter
--- OUTSIDE RECORDS SUMMARY | 2024-06-07 08:12 | XMS_ITS | Referral Summary ---
Author Organization [facility] Address [address] [place] [address] Care Team Providers Care Spinner Hand Name Role Phone Clem Olvera MD Primary Care Provider [phone] Allergies No known active allergies Medications atorvastatin [...] Date of Assessment Author No 02/27/2016 14:17 Tae Prakash RN * Because of a physical, [...] Advance Directives For more information, please contact: [phone] * Full Code (Latest Code Status on File) Date Activated Date Inactivated Comments 02/27/2016 8:49 02/28/2016 15:40 Question Answer Comments Reason for decision includes: Full code consistent with overall plan of care Who participated in the discussion? Not Discusse d Care Teams Spinner Hand Relationship Specialty Start Date End Date Clem Olvera MD [address] [place] [address] PCP - General 12/18/15
--- OUTSIDE RECORDS SUMMARY | 2024-06-07 08:12 | XMS_ITS | Clinical Summary ---
Author Organization [facility] Address [address] [place] [address] Care Team Providers Care Flow Worker Name Role Phone Clem Olvera MD Primary Care Provider [phone] Allergies No known active allergies Medications atorvastatin [...] PACEMAKER INSERTION 05/04/2002 - 05/03/20032013 second pacemaker [facility] Medical History Medical History Date [...] 2024 [place] [id number] Advance Directives For more information, please contact: [phone] * Full Code (Latest Code Status on File) Date Activated Date Inactivated Comments 02/27/2016 8:49 02/28/2016 15:40 Question Answer Comments Reason for decision includes: Full code consistent with overall plan of care Who participated in the discussion? Not Discusse d Care Teams Flow Worker Relationship Specialty Start Date End Date Clem Olvera MD [address] [place] [address] PCP - General 12/18/15
--- OUTSIDE RECORDS SUMMARY | 2024-06-07 08:12 | XMS_ITS | Encounter Summary ---
Author Organization [facility] Address [address] [place] [address] Care Team Providers Care Towel Sewer Name Role Phone Clem Olvera MD Primary Care Provider [phone] Encounter Details Date Type Department Care Team (Latest Contact Info) Description 12/20/2015 10:52 EDT - 12/20/2015 23:52 EDT Hospital Encounter [facility] Cardiovascular Unit [address] [place] [address] Navdeep Hurd MD [address] [place] [address] [address] Discharge Disposition: Home or Self [...] no need to beNPO or have a route driver salesperson. However, his will be accompanying him. They are driving someone to the airport [place] 1000 and then will come here and check-in around 1145. He agrees to have a shower. documented in this encounter Procedure Notes * Fantasma Dhillon MD - 12/20/2015 1356 EDT IR Brief Procedure Note Attending: Leo Steamtable Worker: Alejo Pre-op Dx: Arrhythmia, need for pacemaker [...] 12/19 documented in this encounter Care Teams Towel Sewer Relationship Specialty Start Date End Date Clem Olvera MD [address] [place] [address] PCP - General 12/18/15 documented as of this encounter
--- OUTSIDE RECORDS SUMMARY | 2024-06-07 08:13 | XMS_ITS | Encounter Summary ---
Author Organization [facility] [place] [address] Care Team Providers Care Secretary Board Of Commissioners Name Role Phone Donny Cooper MD Primary Care Provider [phone] Encounter Details Date Type Department Care Team (Late st Contact Info) Description 03/18/2024 Notes Only Cardiology at [address] [address] Marina Caballero APRN [facility] [place] [address] Social History Tobacco Use Types Packs/Day Years [...] Encounter Non-Invasive [place] [phone] Arrived documented as of this encounter Visit Diagnoses Not on filedocumented in this encounter Care Teams Secretary Board Of Commissioners Relationship Specialty Start Date End Date Donny Cooper MD [address] [facility] [place] [address] PCP - General Family Medicine 02/25/19 documented as of this encounter
--- OUTSIDE RECORDS SUMMARY | 2024-06-07 08:13 | XMS_ITS | Encounter Summary ---
[place] [address] Care Team Providers Care Back Tacker Name Role Phone Donny Cooper MD Primary Care Provider [phone] Encounter Details Date Type Department Care Team (Latest Contact Info) Description 05/02/2024 10:00 AM EST - 05/02/2024 11:59 PM [facility] Hospital Encounter [place] [address] Discharge Disposition: Home Social History Tobacco Use [...] AM EDT Hospital Encounter [place] [address] Arrived documented as of this [...] filedocumented in this encounter Care Teams Back Tacker Relationship Specialty Start Date End Date Donny Cooper MD [address] [place] [address] PCP - General Family Medicine 02/25/19 documented as of this encounter
--- OUTSIDE RECORDS SUMMARY | 2024-06-07 08:13 | XMS_ITS | Encounter Summary ---
Author Organization [facility] [place] [address] Care Team Providers Care News Technical Director Name Role Phone Marques Martinez MD Primary Care Provider [phone] Encounter Details Date Type Department Care Team (Late st Contact Info) Description 10/09/2010 11:35 AM EDT - 10/09/2010 11:59 PM EDT Hospital Encounter XRay at [address] [place] [phone] Social History Tobacco Use Types Packs/Day Years [...] Encounter Non-Invasive Cardiology Lab [facility] [place] [address] Arrived documented as of this encounter Visit Diagnoses Not on filedocumented in this encounter Care Teams News Technical Director Relationship Specialty Start Date End Date Marques Martinez MD [address] [place] [address] PCP - General 04/01/10 04/08/11 documented as of this encounter
--- OUTSIDE RECORDS SUMMARY | 2024-06-07 08:13 | XMS_ITS | Encounter Summary ---
[place] [address] Care Team Providers Care Manager Unix Name Role Phone Donny Cooper MD Primary Care Provider [phone] Encounter Details Date Type Department Care Team (Late st Contact Info) Description 03/17/2019 Telephone Cardiology at [address] [address] Sheri Quinn LNA Social History [...] AM EDT Hospital Encounter [place] [address] Arrived documented as of this encounter Visit Diagnoses Not on filedocumented in this encounter Care Teams Manager Unix Relationship Specialty Start Date End Date Donny Cooper MD [address] [place] [address] PCP - General Family Medicine 02/25/19 documented as of this encounter
--- OUTSIDE RECORDS SUMMARY | 2024-06-07 08:13 | XMS_ITS | Encounter Summary ---
[place] [address] Care Team Providers Care Senior Windows Engineer Name Role Phone Marques Martinez MD Primary Care Provider Encounter Details Date Type Department Care Team (Late st Contact Info) Description 09/11/2010 Orders [place] [address] Jairon Fenton MD Fracture of patella, left, [...] Hospital Encounter Non-Invasive [place] [address] Arrived documented as of this encounter Visit Diagnoses Diagnosis Fracture of patella, left, closed- Primary Closed fracture of patella documented in this encounter Care Teams Senior Windows Engineer Relationship Specialty Start Date End Date Marques Martinez MD [address] [place] [address] PCP - General 04/01/10 04/08/11 documented as of this encounter
--- OUTSIDE RECORDS SUMMARY | 2024-06-07 08:13 | XMS_ITS | Encounter Summary ---
[place] [address] Care Team Providers Care Dryer Feeder Name Role Phone Donny Cooper MD Primary Care Provider [phone] Encounter Details Date Type Department Care Team [...] AM EDT Hospital Encounter Non-[place] [address] Arrived documented as of this encounter Visit Diagnoses Not on filedocumented in this encounter Care Teams Dryer Feeder Relationship Specialty Start Date End Date Donny Cooper MD [address] [place] [address] PCP - General Family Medicine 02/25/19 documented as of this encounter
--- OUTSIDE RECORDS SUMMARY | 2024-06-07 08:13 | XMS_ITS | Encounter Summary ---
Author Organization [facility] [place] [address] Care Team Providers Care Investigation Division Lieutenant Name Role Phone Donny Cooper MD Primary Care Provider [phone] Encounter Details Date Type Department Care Team (Latest Contact Info) Description 10/03/2022 10:00 AM EDT Office Visit Cardiology at [address] [address] [place] No, [place] [facility] [place] [address] Cardiomyopathy, primary; Presence of cardiac resynchronization therapy defibrillator (LEAD GAME DESIGNER-D); Diaphragmatic stimulation by cardiac pacemaker, initial encounter [...] original note were not included. Cardiac Device LEAD GAME DESIGNER-D Programming Evaluation Nabil Iglesias [id number] 10/03/2022 History: Mr. 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 [...] AM EDT Hospital Encounter Non[place] [address] Arrived documented as of this encounter Procedures Procedure Name Priority Date/Time Associated Diagnosis Comments EKG 12-LEAD Routine 10/03/2022 11:00 AM EDT Cardiomyopathy, primary Presence of cardiac resynchronization therapy defibrillator (LEAD GAME DESIGNER-D) Diaphragmatic stimulation by cardiac pacemaker, initial encounter documented in this encounter Results * EKG 12 Lead (10/03/2022 11:00 AM EDT) Ventricular rate 74 BPM MUSE SYSTEM Atrial Rate 74 BPM MUSE SYSTEM P-R Interval 154 ms MUSE SYSTEM QRS Duration 162 ms MUSE SYSTEM Q-T Interval 470 ms MUSE SYSTEM QTC Calculated (Bezet) 521 ms MUSE SYSTEM Calculated P [place] 30 degrees MUSE SYSTEM Calculated R [place] -98 degrees MUSE SYSTEM Calculated T [place] 41 degrees MUSE SYSTEM INTERPRETATION Atrial-sense d [...] cardiomyopathies Presence of cardiac resynchronization therapy defibrillator (LEAD GAME DESIGNER-D) Diaphragmatic stimulation by cardiac pacemaker, initial encounter documented in this encounter Care Teams Investigation Division Lieutenant Relationship Specialty Start Date End Date Donny Cooper MD [address] [place] [address] PCP - General Family Medicine 02/25/19 documented as of this encounter
--- OUTSIDE RECORDS SUMMARY | 2024-06-07 08:13 | XMS_ITS | Encounter Summary ---
Author Organization [facility] [place] [address] Care Team Providers Care Tobacco Educator Name Role Phone Donny Cooper MD Primary Care Provider [phone] Encounter Details Date Type Department Care Team (Latest Contact Info) Description 06/25/2021 3:23 PM EST - 06/25/2021 11:59 PM EST Hospital Encounter Non-[place] [address] Alber Seals MD [facility] [place] [address] Cardiomyopathy, primary Discharge Disposition: Home Social History [...] AM EDT Hospital Encounter Non-[place] [address] Arrived documented as of this encounter Procedures Procedure Name Priority Date/Time Associated Diagnosis Comments ICD INTERROGATION 3 MONTH Routine 06/25/2021 3:24 PM EST Cardiomyopathy, primary documented in this encounter Results * ICD INTERROGATION 3 MONTH (06/25/2021 3:24 PM EST) Anatomical Region Laterality Modality Other Narrative 06/25/2021 3:42 PM EST Cardiac Device Remote Monitoring Report Summary Medtronic Carelink Device: PRESS TENDER LONG GOODS-D Model: VIVA QUAD Battery: 2.95 v, estimated longevity 2 years 6 months Pacing percentage: 90% PRESS TENDER LONG GOODS paced Events: Presenting rhythm: atrial paced/biventricular paced Frequent PVC's Impression Normal device function Follow Up As per schedule - in-clinic and remote ALBER SEALS MD 06/25/21 Alber Seals MD IMPLANTABLE CARDIAC DEVICE documented in this encounter Visit Diagnoses Diagnosis Cardiomyopathy, primary Other primary cardiomyopathies documented in this encounter Care Teams Tobacco Educator Relationship Specialty Start Date End Date Donny Cooper MD [address] [place] [address] PCP - General Family Medicine 02/25/19 documented as of this encounter
--- OUTSIDE RECORDS SUMMARY | 2024-06-07 08:13 | XMS_ITS | Encounter Summary ---
Author Organization [facility] [place] [address] Care Team Providers Care Rivet Tester Name Role Phone Donny Cooper MD Primary Care Provider [phone] Encounter Details Date Type Department Care Team (Late st Contact Info) Description 07/26/2019 Notes Only Cardiology at [address] [address] Maged Arguelles MD [facility] [place] [address] Social History Tobacco Use Types Packs/Day Years [...] his Medtronic biventricular ICD is reviewed. Suboptimal WELFARE SERVICE AIDE at 84%. Normal device function. Awaiting Holter to assess PVC burden. Maged Arguelles MD [facility] Cardiac Electrophysiology 07/26/2019 9:04 AM documented in this encounter Plan of Treatment Upcoming Encounters Date Type Department Care Team (Late st Contact Info) Description 07/31/2024 10:00 AM EDT Hospital Encounter Non-Invasive [place] [address] Arrived documented as of this encounter Visit Diagnoses Not on filedocumented in this encounter Care Teams Rivet Tester Relationship Specialty Start Date End Date Donny Cooper MD [address] [place] [address] PCP - General Family Medicine 02/25/19 documented as of this encounter
--- OUTSIDE RECORDS SUMMARY | 2024-06-07 08:13 | XMS_ITS | Encounter Summary ---
[place] [address] Care Team Providers Care Turbine Attendant Name Role Phone Donny Cooper MD Primary Care Provider [phone] Encounter Details Date Type Department Care Team (Latest Contact Info) Description 02/02/2024 10:00 AM EDT - 02/02/2024 11:59 PM EDT Hospital Encounter Non-[place] [address] Discharge Disposition: Home Social History Tobacco Use [...] AM EDT Hospital Encounter Non-Invasive [place] [address] Arrived documented as of this encounter Procedures [...] on filedocumented in this encounter Care Teams Turbine Attendant Relationship Specialty Start Date End Date Donny Cooper MD [address] [place] [address] PCP - General Family Medicine 02/25/19 documented as of this encounter
--- OUTSIDE RECORDS SUMMARY | 2024-06-07 08:13 | XMS_ITS | Encounter Summary ---
[place] [address] Care Team Providers Care Director Content Marketing Name Role Phone Donny Cooper MD Primary Care Provider [phone] Encounter Details Date Type Department Care Team (Latest Contact Info) Description 08/06/2023 10:00 AM EDT - 08/06/2023 11:59 PM EDT Hospital Encounter [place] [address] Discharge Disposition: Home Social History Tobacco Use [...] AM EDT Hospital Encounter Non[place] [address] Arrived documented as of this encounter Visit Diagnoses Not on filedocumented in this encounter Care Teams Director Content Marketing Relationship Specialty Start Date End Date Donny Cooper MD [address] [place] [address] PCP - General Family Medicine 02/25/19 documented as of this encounter
--- OUTSIDE RECORDS SUMMARY | 2024-06-07 08:13 | XMS_ITS | Encounter Summary ---
Author Organization [facility] [place] [address] Care Team Providers Care Lens Edger Name Role Phone Marques Martinez MD Primary Care Provider [phone] Encounter Details Date Type Department Care Team (Late st Contact Info) Description 03/30/2010 [place] [address] Javier Barajas MD [facility] [place] [address] Social History Tobacco Use Types Packs/Day Years [...] AM EDT Hospital Encounter Non-[place] [address] Arrived documented as of this encounter Procedures [...] EST Jairon Fenton MD CHEMISTRY ORDERABLES [facility] * (ABNORMAL) CREATININE, SERUM (04/01/2010 [...] MD CHEMISTRY ORDERABLES Performing Organization Address [facility] de Phone Number CERNER CHRISTOSENNIUM * BUN (04/01/2010 6:09 AM EST) Blood Urea Nitrogen 12 10 - 20 mg/dL CERNER MILLENNIUM Blood specimen (specimen) 04/01/2010 6:09 AM EST 04/01/2010 6:09 AM EST Jairon Fenton MD CHEMISTRY ORDERABLES Performing Organization Address [facility] de Phone Number CERNER MILLENNIUM * [...] HEMATOLOGY ORDERABLE S Performing Organization Address [facility] de Phone Number CERNER MILLENNIUM * [...] MD CHEMISTRY ORDERABLES Performing Organization Address [facility] Phone Number CERIVIS MILLENNIUM * ELECTROLYTE PANEL (03/30/2010 6:05 PM EST) Pathologist [facility] Sodium 135 135 - 145 mmol/L [...] MD CHEMISTRY ORDERABLES Performing Organization Address [facility] Co de Phone Number CERIVIS MILLENNIUM * CREATININE, SERUM (03/30/2010 6:05 PM EST) Creatinine 0.87 0.80 - 1.50 mg/dL [facility] Est Glomerular Filtration Rate >60 >=60 [facility] Comment: The National Kidney Disease [...] Urea Nitrogen 18 10 - 20 mg/dL [facility] Blood specimen (specimen) 03/30/2010 6:05 PM EST 03/30/2010 6:13 PM EST Jairon Fenton MD CHEMISTRY ORDERABLES Performing Organization Address [facility] de Phone Number DEJA SEGOVIA * APTT (03/30/2010 6:05 PM EST) Partial Thromboplastin Time 26 25 - 37 sec CERNER CHRISTOSENNIUM Comment: Recommended therapeutic PTT range for full dose unfractionated heparin is 80-114 seconds. Blood specimen (specimen) 03/30/2010 6:05 PM EST 03/30/2010 6:14 PM EST Jairon Fenton MD HEMATOLOGY ORDERABLE S Performing Organization Address [facility] Phone Number DEJA SEGOVIA * PROTIME-INR (03/30/2010 6:05 PM EST) Prothrombin Time 14.2 12.3 - 14.7 sec [facility] Comment: [facility] Transfusion Committee Guidelines: INR less than 2.0, PTT less than OR equal to 43.5 seconds, or Fibrinogen greater than or equal to 100 mg/dl indicate adequate procoagulant activity for hemostasis in patients without underlying bleeding disorders. International Normalization Ratio 1.1 0.9 - 1.1 [facility] Blood specimen (specimen) 03/30/2010 6:05 PM EST 03/30/2010 6:14 PM EST Jairon Fenton MD HEMATOLOGY ORDERABLE S Performing Organization Address [facility] de Phone Number DEJA SEGOVIA * [...] 44.2 35.0 - 46.0 fL [facility] RDW coefficient of variation 13.1 10.9 - 14.4 % [facility] Mean Platelet Volume 10.6 9.0 - 12.0 fL [facility] Blood specimen (specimen) 03/30/2010 6:05 PM EST 03/30/2010 6:13 PM EST Jairon Fenton MD HEMATOLOGY ORDERABLE S Performing Organization Address [facility] Co de Phone Number [facility] * REFLEX LAB-ANTIBODY SCREEN (03/30/2010 3:17 PM EST) [facility] Ab Screen Interp Negative [facility] Expires at [id number] on: [id number] [facility] Blood specimen (specimen) 03/30/2010 3:17 PM EST 03/30/2010 3:17 PM EST Javier Barajas MD BLOOD BANK LAB ORDER PRECIOUS Performing Organization Address [facility] Co de Phone Number [facility] * REFLEX LAB-ABO/RH (03/30/2010 3:17 PM EST) [facility] ABORH Type A Pos [facility] Blood specimen (specimen) 03/30/2010 3:17 PM EST 03/30/2010 3:17 PM EST Javier Barajas MD BLOOD BANK LAB ORDER PRECIOUS Performing Organization Address [facility] Co de Phone Number [facility] * ELECTROLYTE PANEL (03/30/2010 2:50 PM EST) [facility] Sodium 135 135 - 145 mmol/L [facility] Potassium 4.3 3.5 - 5.0 mmol/L [facility] Comment: Please note: ??Patients with WBC [...] MD CHEMISTRY ORDERABLES Performing Organization Address [facility] Phone Number [facility] * BUN (03/30/2010 2:50 PM EST) Blood Urea Nitrogen 18 10 - 20 mg/dL [facility] Blood specimen (specimen) 03/30/2010 2:50 PM EST 03/30/2010 3:05 PM EST Javier Barajas MD CHEMISTRY ORDERABLES Performing Organization Address [facility] Phone Number [facility] * GLUCOSE, RANDOM (03/30/2010 2:50 PM EST) Glucose 95 <=199 mg/dL [facility] Comment:Diabetes: >=200 mg/d L plus symptoms Blood specimen (specimen) 03/30/2010 2:50 PM EST 03/30/2010 3:05 PM EST Javier Barajas MD CHEMISTRY ORDERABLES Performing Organization Address [facility] Phone Number [facility] * APTT (03/30/2010 2:50 PM EST) Partial Thromboplastin Time 25 25 - 37 sec [facility] Comment: Recommended therapeutic PTT range for full dose unfractionated heparin is 80-114 seconds. Blood specimen (specimen) 03/30/2010 2:50 PM EST 03/30/2010 3:06 PM EST Javier Barajas MD HEMATOLOGY ORDERABLE S Performing Organization Address [facility] Phone Number [facility] * PROTIME-INR (03/30/2010 2:50 PM EST) Prothrombin Time 14.1 12.3 - 14.7 sec [facility] Comment: [facility] Transfusion Committee Guidelines: INR less [...] on filedocumented in this encounter Care Teams Lens Edger Relationship Specialty Start Date End Date Marques Martinez MD [address] [place] [address] PCP - General 04/01/10 04/08/11 documented as of this encounter
--- OUTSIDE RECORDS SUMMARY | 2024-06-07 08:13 | XMS_ITS | Encounter Summary ---
Author Organization [facility] [place] [address] Care Team Providers Care Sales Clerk Supervisor Name Role Phone Donny Cooper MD Primary Care Provider [phone] Encounter Details Date Type Department Care Team (Latest Contact Info) Description 06/13/2020 12:35 PM EST - 06/13/2020 11:59 PM EST Hospital Encounter Non-[place] [address] Alber Seals MD [facility] [place] [address] Cardiomyopathy, primary Discharge Disposition: Home Social History [...] AM EDT Hospital Encounter Non-[place] [address] Arrived documented as of this encounter Procedures Procedure Name Priority Date/Time Associated Diagnosis Comments ICD INTERROGATION 3 MONTH Routine 06/13/2020 12:36 PM EST Cardiomyopathy, primary documented in this encounter Results * ICD INTERROGATION 3 MONTH (06/13/2020 12:36 PM EST) Anatomical Region Laterality Modality Other Narrative 06/14/2020 10:38 AM EST Cardiac Device Remote Monitoring Report Summary Medtronic Plexisoft 06/14/20 Device: SUPERVISOR FIREWORKS ASSEMBLY-D Model: VIVA QUAD Battery: 2.96 v, estimated longevity 3 years, 11 months Pacing percentage: 78% ventricular paced Events: The presenting rhythm is atrial paced with biventricular pacing and frequent ventricular premature contractions No significant arrhythmias Impression Normal device function; suboptimal SUPERVISOR FIREWORKS ASSEMBLY pacing likely secondary to frequent PVCs. Should consider in clinic follow-up for further evaluation Follow Up As per schedule - in-clinic and remote ALBER SEALS MD Alber Seals MD IMPLANTABLE CARDIAC DEVICE documented in this encounter Visit Diagnoses Diagnosis Cardiomyopathy, primary Other primary cardiomyopathies documented in this encounter Care Teams Sales Clerk Supervisor Relationship Specialty Start Date End Date Donny Cooper MD [address] [place] [address] PCP - General Family Medicine 02/25/19 documented as of this encounter
--- OUTSIDE RECORDS SUMMARY | 2024-06-07 08:13 | XMS_ITS | Encounter Summary ---
[place] [address] Care Team Providers Care Arcade Technician Name Role Phone Donny Cooper MD Primary Care Provider [phone] Encounter Details Date Type Department Care Team (Latest Contact Info) Description 04/08/2022 10:00 AM EST - 04/08/2022 11:59 PM [facility] Hospital Encounter Non[place] [address] Discharge Disposition: Home Social History Tobacco Use [...] AM EDT Hospital Encounter Non[place] [address] Arrived documented as of this [...] on filedocumented in this encounter Care Teams Arcade Technician Relationship Specialty Start Date End Date Donny Cooper MD [address] [place] [address] PCP - General Family Medicine 02/25/19 documented as of this encounter
--- OUTSIDE RECORDS SUMMARY | 2024-06-07 08:13 | XMS_ITS | Encounter Summary ---
[place] [address] Care Team Providers Care Supervisor Wet Room Name Role Phone Marques Martinez MD Primary Care Provider [phone] Encounter Details Date Type Department Care Team (Late st Contact Info) Description 06/12/2010 2:00 PM EST Procedure visit [place] [address] Social History Tobacco Use Types Packs/Day Years [...] AM EDT Hospital Encounter Non-Invasive [place] [address] Arrived documented as of this encounter Visit Diagnoses Not on filedocumented in this encounter Care Teams Supervisor Wet Room Relationship Specialty Start Date End Date Marques Martinez MD [address] [place] [address] PCP - General 04/01/10 04/08/11 documented as of this encounter
--- OUTSIDE RECORDS SUMMARY | 2024-06-07 08:13 | XMS_ITS | Encounter Summary ---
[place] [address] Care Team Providers Care Banking Services Clerk Name Role Phone Donny Cooper MD Primary Care Provider [phone] Encounter Details Date Type Department Care Team (Latest Contact Info) Description 01/03/2023 10:00 AM EDT - 01/03/2023 11:59 PM EDT Hospital Encounter Non-[place] [address] Discharge Disposition: Home Social History Tobacco Use [...] AM EDT Hospital Encounter Non-[place]vasive [place] [address] Arrived documented as of this encounter Procedures [...] on filedocumented in this encounter Care Teams Banking Services Clerk Relationship Specialty Start Date End Date Donny Cooper MD [address] [place] [address] PCP - General Family Medicine 02/25/19 documented as of this encounter
--- OUTSIDE RECORDS SUMMARY | 2024-06-07 08:13 | XMS_ITS | Encounter Summary ---
[place] [address] Care Team Providers Care Interventional Tech Name Role Phone Donny Cooper MD Primary Care Provider [phone] Encounter Details Date Type Department Care Team (Latest Contact Info) Description 10/05/2022 10:00 AM EDT - 10/05/2022 11:59 PM EDT Hospital Encounter Non-Invasive [place] [address] Discharge Disposition: Home Social History Tobacco Use [...] EDT Hospital Encounter Non-Invasive [place] [address] Arrived documented as of this encounter Procedures [...] on filedocumented in this encounter Care Teams Interventional Tech Relationship Specialty Start Date End Date Donny Cooper MD [address] [place] [address] PCP - General Family Medicine 02/25/19 documented as of this encounter
--- OUTSIDE RECORDS SUMMARY | 2024-06-07 08:13 | XMS_ITS | Encounter Summary ---
Author [place] [address] Care Team Providers Care Armature Varnisher Name Role Phone Donny Cooper MD Primary Care Provider [phone] Encounter Details Date Type Department Care Team (Late st Contact Info) Description 01/05/2024 Telephone Cardiology at [address] [address] Kanika Shell Social History [...] AM EDT Hospital Encounter Non[place] [address] Arrived documented as of this encounter Visit Diagnoses Not on filedocumented in this encounter Care Teams Armature Varnisher Relationship Specialty Start Date End Date Donny Cooper MD [address] [place] [address] PCP - General Family Medicine 02/25/19 documented as of this encounter
--- OUTSIDE RECORDS SUMMARY | 2024-06-07 08:13 | XMS_ITS | Encounter Summary ---
[place] [address] Care Team Providers Care Luggage Liner Name Role Phone Marques Martinez MD Primary Care Provider [phone] Encounter Details Date Type Department Care Team (Late st Contact Info) Description 06/12/2010 2:10 PM EST Office [place] [address] Jairon Fenton MD Discharge Disposition: Home Social [...] AM EDT Hospital Encounter Non-Invasive [place] [address] Arrived documented as of this encounter Visit Diagnoses Not on filedocumented in this encounter Care Teams Luggage Liner Relationship Specialty Start Date End Date Marques Martinez MD [address] [place] [address] PCP - General 04/01/10 04/08/11 documented as of this encounter
--- OUTSIDE RECORDS SUMMARY | 2024-06-07 08:13 | XMS_ITS | Encounter Summary ---
[place] [address] Care Team Providers Care Scale Technician Name Role Phone Donny Cooper MD Primary Care Provider [phone] Encounter Details Date Type Department Care Team (Late st Contact Info) Description 12/28/2023 Notes Only Cardiology at [address] [address] Kanika Shell Social History Tobacco Use Types [...] AM EDT Hospital Encounter Non-[place] [address] Arrived documented as of this encounter Visit Diagnoses Not on filedocumented in this encounter Care Teams Scale Technician Relationship Specialty Start Date End Date Donny Cooper MD [address] [place] [address] [address] [facility] [place] [address] PCP - General Family Medicine 02/25/19 documented as of this encounter
--- OUTSIDE RECORDS SUMMARY | 2024-06-07 08:13 | XMS_ITS | Encounter Summary ---
Author Organization [facility] Address [facility] [place] [address] Care Team Providers Care Geoscience Professor Name Role Phone Clem Olvera MD Primary Care Provider Reason for Visit * Reason Comments Follow Up Fracture SP PATELLA FX DO12/12 DOI 03/30/10 Encounter Details Date Type Department Care Team (Late st Contact Info) Description 04/09/2011 1:30 PM EST Office [place] [address] Jairon Gustafson MD Aubin, Christopher J, PA [facility] [place] [address] Patella fracture (Primary Dx) Discharge Disposition: Home [...] EDT Hospital Encounter Non-Invasive [place] [address] Arrived documented as of this encounter Visit Diagnoses Diagnosis Patella fracture- Primary Closed fracture of patella documented in this encounter Care Teams Geoscience Professor Relationship Specialty Start Date End Date Clem Olvera MD [address] [place] [address] PCP - General 04/09/11 02/24/19 documented as of this encounter
--- OUTSIDE RECORDS SUMMARY | 2024-06-07 08:13 | XMS_ITS | Encounter Summary ---
Author Organization [facility] [place] [address] Care Team Providers Care Boots And Shoes Supervisor Name Role Phone Donny Cooper MD Primary Care Provider [phone] Encounter Details Date Type Department Care Team (Latest Contact Info) Description 12/18/2020 11:57 AM EDT - 12/18/2020 11:59 PM EDT Hospital Encounter [place] [address] Maged Arguelles MD [facility] [place] [address] Cardiomyopathy, primary Discharge Disposition: Home Social History [...] AM EDT Hospital Encounter Non[place] [address] Arrived documented as of this encounter Procedures Procedure Name Priority Date/Time Associated Diagnosis Comments ICD INTERROGATION 3 MONTH Routine 12/18/2020 12:00 PM EDT Cardiomyopathy, primary documented in this encounter Results * ICD INTERROGATION 3 MONTH (12/18/2020 12:00 PM EDT) Anatomical Region Laterality Modality Other Narrative 12/23/2020 11:08 PM EDT MDT DEHAIRING MACHINE TENDER-D remote reviewed. Normal device function. Inadequate DEHAIRING MACHINE TENDER at 80%. Maegd Arguelles MD [facility] Cardiac Electrophysiology 12/23/2020 11:06 PM Maged Arguelles MD IMPLANTABLE CARDIAC DEVICE documented in this encounter Visit Diagnoses Diagnosis Cardiomyopathy, primary Other primary cardiomyopathies documented in this encounter Care Teams Boots And Shoes Supervisor Relationship Specialty Start Date End Date Donny Cooper MD [address] [facility] [place] [address] PCP - General Family Medicine 02/25/19 documented as of this encounter
--- OUTSIDE RECORDS SUMMARY | 2024-06-07 08:13 | XMS_ITS | Encounter Summary ---
Author Organization [facility] [place] [address] Care Team Providers Care Uat Tester Name Role Phone Donny Cooper MD Primary Care Provider [phone] Encounter Details Date Type Department Care Team (Late st Contact Info) Description 06/01/2024 Notes Only Cardiology at [address] [address] Marina Caballero APRN [facility] [place] [address] Social History Tobacco Use Types Packs/Day Years [...] Progress Notes * Marina Caballero APRN - 06/01/2024 9:24 AM EST When device reaches BALJINDER, plan for IV conscious sedation, per Dr. Maged Arguelles. Please see his outpatient clinic note at [facility] 09/02/23 for details. Marina Caballero APRN 06/01/24 documented in this encounter Plan of Treatment Upcoming Encounters Date Type Department Care Team (Late st Contact Info) Description 07/31/2024 10:00 AM EDT Hospital Encounter Non-Invasive [place] [address] Arrived documented as of this encounter Visit Diagnoses Not on filedocumented in this encounter Care Teams Uat Tester Relationship Specialty Start Date End Date Donny Cooper MD [address] [place] [address] PCP - General Family Medicine 02/25/19 documented as of this encounter
--- OUTSIDE RECORDS SUMMARY | 2024-06-07 08:13 | XMS_ITS | Encounter Summary ---
[place] [address] Care Team Providers Care Credit Card Control Clerk Name Role Phone Donny Cooper MD Primary Care Provider [phone] Encounter Details Date Type Department Care Team (Late st Contact Info) Description 06/14/2020 Telephone Cardiology at [address] [phone] Nhung Briggs Social History Tobacco Use Types [...] would like to be seen at [facility]. Email sent to Brittaney Hernandez at [facility] asking her to reach out to pt to set up the appt with either Dr. Arguelles or LANG Albert. Nhung Allen Electrophysiology Scheduling [id number] option 2 documented in this encounter Plan of Treatment Upcoming Encounters Date Type Department Care Team (Late st Contact Info) Description 07/31/2024 10:00 AM EDT Hospital Encounter Non-Invasive [place] [address] Arrived documented as of this encounter Visit Diagnoses Not on filedocumented in this encounter Care Teams Credit Card Control Clerk Relationship Specialty Start Date End Date Donny Cooper MD [address] [place] [address] PCP - General Family Medicine 02/25/19 documented as of this encounter
--- OUTSIDE RECORDS SUMMARY | 2024-06-07 08:13 | XMS_ITS | Encounter Summary ---
[place] [address] Care Team Providers Care Roofing Tile Sorter Name Role Phone Marques Martinez MD Primary Care Provider [phone] Encounter Details Date Type Department Care Team (Late st Contact Info) Description 05/01/2010 2:40 PM EST Procedure visit [place] [address] Social History Tobacco Use Types Packs/Day Years [...] AM EDT Hospital Encounter Non-[place] [address] Arrived documented as of this encounter Visit Diagnoses Not on filedocumented in this encounter Care Teams Roofing Tile Sorter Relationship Specialty Start Date End Date Marques Martinez MD [address] [place] [address] PCP - General 04/01/10 04/08/11 documented as of this encounter
--- OUTSIDE RECORDS SUMMARY | 2024-06-07 08:13 | XMS_ITS | Encounter Summary ---
[place] [address] Care Team Providers Care Clay Processing Labourer Name Role Phone Donny Cooper MD Primary Care Provider [phone] Encounter Details Date Type Department Care Team (Latest Contact Info) Description 07/07/2022 10:00 AM EST - 07/07/2022 11:59 PM EST Hospital Encounter [place] [address] Discharge Disposition: Home Social History Tobacco Use [...] AM EDT Hospital Encounter Non-[place] [address] Arrived documented as of this [...] filedocumented in this encounter Care Teams Clay Processing Labourer Relationship Specialty Start Date End Date Donny Cooper MD [address] [place] [address] PCP - General Family Medicine 02/25/19 documented as of this encounter
--- OUTSIDE RECORDS SUMMARY | 2024-06-07 08:13 | XMS_ITS | Encounter Summary ---
[place] [address] Care Team Providers Care Medical Director Of Hospice Name Role Phone Donny Cooper MD Primary Care Provider [phone] Encounter Details Date Type Department Care Team (Latest Contact Info) Description 11/04/2023 10:00 AM EDT - 11/04/2023 11:59 PM EDT Hospital Encounter Non-Invasive [place] [address] Discharge Disposition: Home Social History Tobacco Use [...] EDT Hospital Encounter Non-Invasive [place] [address] Arrived documented as of this encounter Procedures [...] in this encounter Care Teams Medical Director Of Hospice Relationship Specialty Start Date End Date Donny Cooper MD [address] [place] [address] PCP - General Family Medicine 02/25/19 documented as of this encounter
--- OUTSIDE RECORDS SUMMARY | 2024-06-07 08:13 | XMS_ITS | Encounter Summary ---
[place] [address] Care Team Providers Care Dry Lumber Grader Name Role Phone Donny Cooper MD Primary Care Provider [phone] Encounter Details Date Type Department Care Team (Latest Contact Info) Description 04/03/2023 10:00 AM EST - 04/03/2023 11:59 PM [facility] Hospital Encounter Non-[place] [address] Discharge Disposition: Home Social History Tobacco Use [...] EDT Hospital Encounter Non-Invasive [place] [address] Arrived documented as of [...] filedocumented in this encounter Care Teams Dry Lumber Grader Relationship Specialty Start Date End Date Donny Cooper MD [address] [place] [address] PCP - General Family Medicine 02/25/19 documented as of this encounter
--- OUTSIDE RECORDS SUMMARY | 2024-06-07 08:13 | XMS_ITS | Encounter Summary ---
[place] [address] Care Team Providers Care Television And Radio Repairer Name Role Phone Marques Martinez MD Primary Care Provider [phone] Encounter Details Date Type Department Care Team (Late st Contact Info) Description 10/03/2010 [place] [address] Marina Orosco, JADON Social History Tobacco Use [...] AM EDT Hospital Encounter [place] [address] Arrived documented as of this encounter Visit Diagnoses Not on filedocumented in this encounter Care Teams Television And Radio Repairer Relationship Specialty Start Date End Date Marques Martinez MD [address] [place] [address] PCP - General 04/01/10 04/08/11 documented as of this encounter
--- OUTSIDE RECORDS SUMMARY | 2024-06-07 08:13 | XMS_ITS | Encounter Summary ---
[place] [address] Care Team Providers Care Warrant Clerk Name Role Phone Marques Martinez MD Primary Care Provider [phone] Encounter Details Date Type Department Care Team (Late st Contact Info) Description 05/01/2010 3:10 PM EST Office [place] [address] Jairon Fenton MD Discharge Disposition: Home Social [...] EDT Hospital Encounter Non-Invasive [place] [address] Arrived documented as of this encounter Visit Diagnoses Not on filedocumented in this encounter Care Teams Warrant Clerk Relationship Specialty Start Date End Date Marques Martinez MD [address] [place] [address] PCP - General 04/01/10 04/08/11 documented as of this encounter
--- OUTSIDE RECORDS SUMMARY | 2024-06-07 08:13 | XMS_ITS | Encounter Summary ---
Author Organization [facility] [place] [address] Care Team Providers Care Tube Bending Machine Operator Name Role Phone Marques [place] MD Primary Care Provider [phone] Reason for Visit * Reason Comments Follow Up Fracture PATELLA FX DOI 03/23 10 Encounter Details Date Type Department Care Team (Late st Contact Info) Description 10/09/2010 12:40 PM EDT Office [place] [address] Jairon Gustafson MD Aubin, Christopher J PA [facility] [place] [address] Quadriceps tendon rupture (Primary Dx) Discharge Disposition: [...] bipartite patella. I saw this patient with LNAG Liao. Please see his note for details [...] AM EDT Hospital Encounter Non-[place] [address] Arrived documented as of this encounter Visit Diagnoses Diagnosis Quadriceps tendon rupture- Primary Sprain and strain of other specified sites of knee and leg documented in this encounter Care Teams Tube Bending Machine Operator Relationship Specialty Start Date End Date Marques Martinez MD [address] [place] [address] PCP - General 04/01/10 04/08/11 documented as of this encounter
--- OUTSIDE RECORDS SUMMARY | 2024-06-07 08:13 | XMS_ITS | Encounter Summary ---
[place] [address] Care Team Providers Care Principal Embedded Software Engineer Name Role Phone Donny Cooper MD Primary Care Provider [phone] Encounter Details Date Type Department Care Team (Latest Contact Info) Description 07/02/2023 10:00 AM EST - 07/02/2023 11:59 PM EST Hospital Encounter [place] [address] Discharge Disposition: Home Social History Tobacco Use [...] Cooper MD [address] [place] [address] PCP - General Family Medicine 02/25/19 documented as of this encounter
[2024-06-07 08:23] VITALS: BP 125/62; PULSE 77
--- OUTSIDE RECORDS SUMMARY | 2024-06-09 08:10 | XMS_ITS | Encounter Summary ---
Author Organization [facility] Address [address] [place] [address] Care Team Providers Care Casino Change Attendant Name Role Phone Unavailable Primary Care Provider Unavailabl e Encounter Details Date Type Department Care Team (Late st Contact Info) Description 05/06/2001 Results Only [facility] - Maple conversion [address] [place] [address] Hernandez Partida MD [address] [place] [address] Social History Tobacco Use Types Packs/Day Years [...] is submitted entirely in cassette (B). ??(Naty Caal)/[facility] End of Report DIVYA BERRY 05/06/2001 05/07/2001 9:2 5 EST us Hernandez Partida MD PATHOLOGY ORDERABLES Final Res ult DIVYA BERRY [address] [place] [address] documented in this encounter Visit Diagnoses Not on filedocumented in this encounter
--- OUTSIDE RECORDS SUMMARY | 2024-06-09 08:10 | XMS_ITS | Encounter Summary ---
[place] [address] Care Team Providers Care Composite Worker Name Role Phone Donny Cooper MD Primary Care Provider [phone] Encounter Details Date Type Department Care Team (Latest Contact Info) Description 07/02/2023 10:00 AM EST - 07/02/2023 11:59 PM EST Hospital Encounter [place] [address] Discharge Disposition: Home Social History Tobacco Use [...] AM EDT Hospital Encounter [place] [address] Arrived documented as of this encounter Visit Diagnoses Not on filedocumented in this encounter Care Teams Composite Worker Relationship Specialty Start Date End Date Donny Cooper MD [address] [place] [address] PCP - General Family Medicine 02/25/19 documented as of this encounter
--- OUTSIDE RECORDS SUMMARY | 2024-06-09 08:10 | XMS_ITS | Encounter Summary ---
[place] [address] Care Team Providers Care Dairy Hand Name Role Phone Donny Cooper MD Primary Care Provider [phone] Encounter Details Date Type Department Care Team (Latest Contact Info) Description 08/06/2023 10:00 AM EDT - 08/06/2023 11:59 PM EDT Hospital Encounter Non-Invasive [place] [address] Discharge Disposition: Home Social History Tobacco Use [...] Hospital Encounter Non-Invasive [place] [address] Arrived documented as of this encounter Visit Diagnoses Not on filedocumented in this encounter Care Teams Dairy Hand Relationship Specialty Start Date End Date Donny Cooper MD [address] [place] [address] PCP - General Family Medicine 02/25/19 documented as of this encounter
--- OUTSIDE RECORDS SUMMARY | 2024-06-09 08:10 | XMS_ITS | Encounter Summary ---
Author Organization [facility] Address [address] [place] [address] Care Team Providers Care Sea Foam Kiss Maker Name Role Phone Clem Olvera MD [...] Expiration Date Visits Re quested Visits Authorized [id number] Closed 02/13/2016 1 1 Encounter Details Date Type Department Care Team (Latest Contact Info) Description 02/13/2016 Pre-Procedure Orders Encounter [facility] [address] [place], [place] [address] Navdeep Hurd MD [address] [place] [address] [phone] ICD (implantable cardioverter-defibril lator) battery depletion (Primary [...] EDT Narrative 02/27/2016 15:17 EDT *Cardiology* [address] [place] [address] Lead Revision (Report amended ) Patient: Nabil Iglesias ?Study Date: ?02/27/2016 ? Accession #: ? [id number] : ? 1940 Referring: Clem Olvera Attending: [...] wire a Nick MENDOZAW 6F ([facility]) 6 mm-40 mm balloon dilation still could [...] Venograms were performed in the MOORE and [place] projections and a suitable mid-lateral LV branch [...] fascia. The leads were connected to a SPECIAL SERVICES AGENT-D device. Device and Lead detail in table [...] Implanted device: Medtronic - Viva Quad XT SPECIAL SERVICES AGENT-D DF4 - Serial number: [id number] Explanted device: Medtronic - Viva XT SPECIAL SERVICES AGENT-D DF4 - Serial number: [id number]. LEAD PARAMETERS + + + + + [...] ? Medtronic ? Enpath ? information ?? 2625 ? 6907M ? Attain ? Epicardial ? Performa 4298 ? + + + + + + Serial number [id number] ? [id number] ?? [id number] ?? [id number] ? + + + + [...] Note Gulshan Drummond MD - 05/12/2016 *Cardiology* [address] [place] [address] Lead Revision (Report amended ) Patient: Nabil [...] therefore over an 0.35 glide wire a [place] OTW 6F ([facility]) 6 mm-40 mm balloon dilation still could [...] Venograms were performed in the MOORE and ISRA[place]I projections and a suitable mid-lateral LV branch [...] fascia. The leads were connected to a SPECIAL SERVICES AGENT-D device. Device and Lead detail in table [...] topical skin adhesive. IMPLANTED HARDWARE: Implanted device: [employer] [place] - Viva Quad XT SPECIAL SERVICES AGENT-D DF4 - Serial number: [id number] Explanted device: Medtronic - Viva XT SPECIAL SERVICES AGENT-D DF4 - Serial number: [id number]. LEAD PARAMETERS + + + + + [...] + + + + + Serial number [id number] + + + + + + [...] situ documented in this encounter Care Teams Sea Foam Kiss Maker Relationship Specialty Start Date End Date Celm Olvera MD [address] [place] [address] PCP - General 12/18/15 documented as of this encounter
--- OUTSIDE RECORDS SUMMARY | 2024-06-09 08:10 | XMS_ITS | Encounter Summary ---
Author Organization [facility] Address [address] [place] [address] Care Team Providers Care Make Up Operator Name Role Phone Clem Olvera MD Primary Care Provider Encounter Details Date Type Department Care Team (Latest Contact Info) Description 12/20/2015 10:52 EDT - 12/20/2015 23:52 EDT Hospital Encounter [facility] Cardiovascular Unit [address] [place] [address] Navdeep Hurd MD [address] [place] [address] [address] Discharge Disposition: Home or Self [...] no need to beNPO or have a tier truck driver. However, his will be accompanying him. They [place] someone to the airport [place] 1000 and then will come here and check-in around 1145. He agrees to have a shower. documented in this encounter Procedure Notes * Fantasma Dhillon MD - 12/20/2015 1356 EDT IR Brief Procedure Note Attending: Leo Concrete Wall Grinder Operator: Alejo Pre-op Dx: Arrhythmia, need for [...] 12/19 documented in this encounter Care Teams Make Up Operator Relationship Specialty Start Date End Date Clem Olvera MD [address] [place] [address] PCP - General 12/18/15 documented as of this encounter
--- OUTSIDE RECORDS SUMMARY | 2024-06-09 08:10 | XMS_ITS | Encounter Summary ---
[place] [address] Care Team Providers Care Air And Missile Defense Crewmember Name Role Phone Donny Cooper MD Primary Care Provider [phone] Encounter Details Date Type Department Care Team (Latest Contact Info) Description 11/04/2023 10:00 AM EDT - 11/04/2023 11:59 PM EDT Hospital Encounter [place] [address] Discharge Disposition: Home Social History Tobacco Use [...] AM EDT Hospital Encounter Non-[place] [address] Arrived documented as of this encounter Procedures [...] filedocumented in this encounter Care Teams Air And Missile Defense Crewmember Relationship Specialty Start Date End Date Donny Cooper MD [address] [place] [address] PCP - General Family Medicine 02/25/19 documented as of this encounter
--- OUTSIDE RECORDS SUMMARY | 2024-06-09 08:10 | XMS_ITS | Encounter Summary ---
Author Organization [facility] [place] [address] Care Team Providers Care Burr Bench Operator Name Role Phone Donny Cooper MD Primary Care Provider [phone] Encounter Details Date Type Department Care Team (Latest Contact Info) Description 10/03/2022 10:00 AM EDT Office Visit Cardiology at [address] [address] Eleno No, [place] [facility] [place] [address] Cardiomyopathy, primary; Presence of cardiac resynchronization therapy defibrillator (STREET LIGHT LAMP CLEANER-D); Diaphragmatic stimulation by cardiac pacemaker, initial encounter [...] original note were not included. Cardiac Device STREET LIGHT LAMP CLEANER-D Programming Evaluation Nabil Iglesias [id number] 10/03/2022 History: Mr. 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 [...] AM EDT Hospital Encounter Non[place] [address] Arrived documented as of this encounter Procedures Procedure Name Priority Date/Time Associated Diagnosis Comments EKG 12-LEAD Routine 10/03/2022 11:00 AM EDT Cardiomyopathy, primary Presence of cardiac resynchronization therapy defibrillator (STREET LIGHT LAMP CLEANER-D) Diaphragmatic stimulation by cardiac pacemaker, initial encounter documented in this encounter Results * EKG 12 Lead (10/03/2022 11:00 AM EDT) Ventricular rate 74 BPM MUSE SYSTEM Atrial Rate 74 BPM MUSE SYSTEM P-R Interval 154 ms MUSE SYSTEM QRS Duration 162 ms MUSE SYSTEM Q-T Interval 470 ms MUSE SYSTEM QTC Calculated (Bezet) 521 ms MUSE SYSTEM Calculated P [place] 30 degrees MUSE SYSTEM Calculated R [place] -98 degrees MUSE SYSTEM Calculated T [place] 41 degrees MUSE SYSTEM INTERPRETATION Atrial-sense d [...] cardiomyopathies Presence of cardiac resynchronization therapy defibrillator (STREET LIGHT LAMP CLEANER-D) Diaphragmatic stimulation by cardiac pacemaker, initial encounter documented in this encounter Care Teams Burr Bench Operator Relationship Specialty Start Date End Date Donny Cooper MD [address] [place] [address] PCP - General Family Medicine 02/25/19 documented as of this encounter
--- OUTSIDE RECORDS SUMMARY | 2024-06-09 08:10 | XMS_ITS | Encounter Summary ---
[place] [address] Care Team Providers Care Flare Stitcher Name Role Phone Donny Cooper MD Primary Care Provider [phone] Encounter Details Date Type Department Care Team (Latest Contact Info) Description 05/02/2024 10:00 AM EST - 05/02/2024 11:59 PM [facility] Hospital Encounter [place] [address] Discharge Disposition: Home Social History Tobacco Use [...] AM EDT Hospital Encounter Non-[place] [address] Arrived documented as of this [...] on filedocumented in this encounter Care Teams Flare Stitcher Relationship Specialty Start Date End Date Donny Cooper MD [address] [place] [address] PCP - General Family Medicine 02/25/19 documented as of this encounter
--- OUTSIDE RECORDS SUMMARY | 2024-06-09 08:10 | XMS_ITS | Encounter Summary ---
[place] [address] Care Team Providers Care Poolroom Table Attendant Name Role Phone Donny Cooper MD Primary Care Provider [phone] Encounter Details Date Type Department Care Team (Latest Contact Info) Description 02/02/2024 10:00 AM EDT - 02/02/2024 11:59 PM EDT Hospital Encounter [place] [address] Discharge Disposition: Home Social History Tobacco Use [...] AM EDT Hospital Encounter [place] [address] Arrived documented as of this encounter Procedures [...] on filedocumented in this encounter Care Teams Poolroom Table Attendant Relationship Specialty Start Date End Date Donny Cooper MD [address] [place] [address] PCP - General Family Medicine 02/25/19 documented as of this encounter
--- OUTSIDE RECORDS SUMMARY | 2024-06-09 08:10 | XMS_ITS | Encounter Summary ---
[place] [address] Care Team Providers Care Hair Rooting Machine Operator Name Role Phone Donny Cooper MD Primary Care Provider [phone] Encounter Details Date Type Department Care Team (Latest Contact Info) Description 01/03/2023 10:00 AM EDT - 01/03/2023 11:59 PM EDT Hospital Encounter [place] [address] Discharge Disposition: Home Social History Tobacco Use [...] AM EDT Hospital Encounter [place] [address] Arrived documented as of this encounter Procedures [...] on filedocumented in this encounter Care Teams Hair Rooting Machine Operator Relationship Specialty Start Date End Date Donny Cooper MD [address] [place] [address] PCP - General Family Medicine 02/25/19 documented as of this encounter
--- OUTSIDE RECORDS SUMMARY | 2024-06-09 08:10 | XMS_ITS | Encounter Summary ---
Author Organization [facility] [place] [address] Care Team Providers Care Corn Miller Name Role Phone Donny Cooper MD Primary Care Provider [phone] Encounter Details Date Type Department Care Team (Late st Contact Info) Description 06/01/2024 Notes Only Cardiology at [address] [address] Marina Caballero APRN [facility] [place] [address] Social History Tobacco Use Types Packs/Day Years [...] Please see his outpatient clinic note at [facility] 09/02/23 for details. Marina Caballero APRN 06/01/24 documented in this encounter Plan of Treatment Upcoming Encounters Date Type Department Care Team (Late st Contact Info) Description 07/31/2024 10:00 AM EDT Hospital Encounter Non-Invasive [place] [address] Arrived documented as of this encounter Visit Diagnoses Not on filedocumented in this encounter Care Teams Corn Miller Relationship Specialty Start Date End Date Donny Cooper MD [address] [place] [address] PCP - General Family Medicine 02/25/19 documented as of this encounter
--- OUTSIDE RECORDS SUMMARY | 2024-06-09 08:10 | XMS_ITS | Clinical Summary ---
Author Organization [facility] [place] [address] Care Team Providers Care Centrifugal Casting Machine Tender Name Role Phone Donny Cooper MD Primary Care Provider [phone] Allergies No known active allergies Medications Medication [...] Team Description 06/01/2024 Notes Only Cardiology at [address] [address] Marina Caballero APRN 05/02/2024 10:00 AM EST - 05/02/2024 11:59 PM EST Hospital Encounter Non-[place] [address] Discharge Disposition: Home 03/18/2024 Notes Only Cardiology at [address] [address] Marina Caballero, FLIGHT READINESS TECHNICIAN from Last 3 Months Immunizations Name Administration [...] Hospital Encounter Non-[place] [address] Arrived Health Maintenance Due Date Last Done [...] 03/06/2006, 02/24/2005 Medical Devices Implanted Type Area Application Helper Device Identifier Shelf Expiration Date Model / Serial / Lot Mdt : [id number] : [id number] Implanted: (Quantity not on file) Cardiac Resynchronization Therapy - Defibrillator Chest Medtronic - [id number] / [id number] / Care Teams Centrifugal Casting Machine Tender Relationship Specialty Start Date End Date Donny Cooper MD [address] [place], [place] [id number] PCP - General Family Medicine 02/25/19
--- OUTSIDE RECORDS SUMMARY | 2024-06-09 08:10 | XMS_ITS | Encounter Summary ---
[place] [address] Care Team Providers Care Acute Care Certified Nursing Assistant Name Role Phone Donny Cooper MD Primary Care Provider [phone] [phone] Encounter Details Date Type Department Care Team (Late st Contact Info) Description 12/28/2023 Notes Only Cardiology at [address] [address] Kanika Shell Social History Tobacco Use Types [...] AM EDT Hospital Encounter Non[place] [address] Arrived documented as of this encounter Visit Diagnoses Not on filedocumented in this encounter Care Teams Acute Care Certified Nursing Assistant Relationship Specialty Start Date End Date Donny Cooper MD [address] [place] [address] [address] [facility] [place] [address] PCP - General Family Medicine 02/25/19 documented as of this encounter
--- OUTSIDE RECORDS SUMMARY | 2024-06-09 08:10 | XMS_ITS | Clinical Summary ---
Author Organization [facility] Address [address] [place] [address] Care Team Providers Care Social Research Assistant Name Role Phone Clem Olvera MD Primary Care Provider [phone] Allergies No known active allergies Medications atorvastatin [...] 2024 [place] [id number] Advance Directives For more information, please contact: [phone] * Full Code (Latest Code Status on File) Date Activated Date Inactivated Comments 02/27/2016 8:49 02/28/2016 15:40 Question Answer Comments Reason for decision includes: Full code consistent with overall plan of care Who participated in the discussion? Not Discusse d Care Teams Social Research Assistant Relationship Specialty Start Date End Date Clem Olvera MD [address] [place] [address] PCP - General 12/18/15
--- OUTSIDE RECORDS SUMMARY | 2024-06-09 08:10 | XMS_ITS | Encounter Summary ---
Author Organization [facility] Address [address] [place] [address] Care Team Providers Care Reference Archivist Name Role Phone Clem Olvera MD Primary Care Provider [phone] Encounter Details Date Type Department Care Team (Late st Contact Info) Description 03/16/[address] [facility] [address] [place] [address] Ronal Avelar RN AV block, 2nd degree [...] Laterality Modality Device Narrative 03/24/2019 10:30 EST [place] [facility] Device Visit Channeler Outsole: Joss Technology[employer] Device Type: SALES OPERATIONS COORDINATOR-D Service: Remote ? 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
--- OUTSIDE RECORDS SUMMARY | 2024-06-09 08:10 | XMS_ITS | Encounter Summary ---
Author Organization [facility] Address [address] [place] [address] Care Team Providers Care Contract Law Specialist Name Role Phone Unavailable Primary Care Provider Unavailabl e Encounter Details Date Type Department Care Team (Late st Contact Info) Description 12/02/2012 Results Only [facility] Laboratory Services - [facility] ([facility]) [address] [place] [phone] Satinder Edwards MD [address] [place] [address] Social History Tobacco Use Types Packs/Day Years [...] Name: ? ABDIAZIZCHARMAINE ? Accession #: ? [id number] ? : ? 1940 (Age: 72) ??M [...] ORDERABLES Final Result [facility] [address] [place] [address] documented in this encounter Visit Diagnoses Not on filedocumented in this encounter
--- OUTSIDE RECORDS SUMMARY | 2024-06-09 08:10 | XMS_ITS | Encounter Summary ---
Author Organization [facility] [place] [address] Care Team Providers Care Fleet Driver Name Role Phone Donny Cooper MD Primary Care Provider [phone] Encounter Details Date Type Department Care Team (Late st Contact Info) Description 03/18/2024 Notes Only Cardiology at [address] [address] Marina Caballero APRN [facility] [place] [address] Social History Tobacco Use Types Packs/Day Years [...] AM EDT Hospital Encounter Non[place] [phone] Arrived documented as of this encounter Visit Diagnoses Not on filedocumented in this encounter Care Teams Fleet Driver Relationship Specialty Start Date End Date Donny Cooper MD [address] [facility] 1 [place] [address] PCP - General Family Medicine 02/25/19 documented as of this encounter
--- OUTSIDE RECORDS SUMMARY | 2024-06-09 08:10 | XMS_ITS | Encounter Summary ---
[place] [address] Care Team Providers Care Wiping Rag Washer Name Role Phone Donny Cooper MD Primary Care Provider [phone] Encounter Details Date Type Department Care Team [...] AM EDT Hospital Encounter Non-Invasive [place] [address] Arrived documented as of this encounter Visit Diagnoses Not on filedocumented in this encounter Care Teams Wiping Rag Washer Relationship Specialty Start Date End Date Dnony Cooper MD [address] [place] [address] PCP - General Family Medicine 02/25/19 documented as of this encounter
--- OUTSIDE RECORDS SUMMARY | 2024-06-09 08:10 | XMS_ITS | Encounter Summary ---
[place] [address] Care Team Providers Care Cardiovascular Technologist Name Role Phone Donny Cooper MD Primary Care Provider [phone] Encounter Details Date Type Department Care Team (Late st Contact Info) Description 01/05/2024 Telephone Cardiology at [address] [address] Kanika Shell Social History Tobacco [...] AM EDT Hospital Encounter [place] [address] Arrived documented as of this encounter Visit Diagnoses Not on filedocumented in this encounter Care Teams Cardiovascular Technologist Relationship Specialty Start Date End Date Donny Cooper MD [address] [place] [address] PCP - General Family Medicine 02/25/19 documented as of this encounter
--- OUTSIDE RECORDS SUMMARY | 2024-06-09 08:10 | XMS_ITS | Encounter Summary ---
Author Organization [facility] Address [address] [place] [address] Care Team Providers Care Information Systems Security Analyst Name Role Phone Clem Olvera MD Primary Care Provider [phone] Reason for Visit * Reason Onset Date Comments Appointment Related 10/23/2016 Check for fo llow up of pacer Encounter Details Date Type Department Care Team ([facility] st Contact Info) Description 10/23/2016 Telephone [facility] Cardiology - [address] [place] [address] Pacemaker, Pace Appointment Related (Check [...] Telephone Encounter - Pushpa Shay - 10/23/2016 4817 EDT Spoke with Mrs. Iglesias who stated that Nabil had his pacemaker checked in [place] where they are for the winter. They have some back and are being followed by Dr. Hurd at [facility]. documented in this encounter Plan of Treatment Not on file documented as of this encounter Visit Diagnoses Not on filedocumented in this encounter Care Teams Information Systems Security Analyst Relationship Specialty Start Date End Date Clem Olvera MD [address] [place] [address] PCP - General 12/18/15 documented as of this encounter
--- OUTSIDE RECORDS SUMMARY | 2024-06-09 08:10 | XMS_ITS | Encounter Summary ---
[place] [address] Care Team Providers Care Brand Strategist Name Role Phone Donny Cooper MD Primary Care Provider [phone] Encounter Details Date Type Department Care Team (Latest Contact Info) Description 10/05/2022 10:00 AM EDT - 10/05/2022 11:59 PM EDT Hospital Encounter [place] [address] Discharge Disposition: Home Social History Tobacco Use [...] EDT Hospital Encounter Non-[place] [phone] Arrived documented as of this encounter Procedures [...] filedocumented in this encounter Care Teams Brand Strategist Relationship Specialty Start Date End Date Donny Cooper MD [address] [place] [address] PCP - General Family Medicine 02/25/19 documented as of this encounter
--- OUTSIDE RECORDS SUMMARY | 2024-06-09 08:10 | XMS_ITS | Referral Summary ---
Author Organization [facility] Address [address] [place] [address] Care Team Providers Care Treasury Director Name Role Phone Clem Olvera MD Primary Care Provider [phone] Allergies No known active allergies Medications atorvastatin [...] Advance Directives For more information, please contact: [phone] * Full Code (Latest Code Status on File) Date Activated Date Inactivated Comments 02/27/2016 8:49 02/28/2016 15:40 Question Answer Comments Reason for decision includes: Full code consistent with overall plan of care Who participated in the discussion? Not Discusse d Care Teams Treasury Director Relationship Specialty Start Date End Date Clem Olvera MD [address] [place] [address] PCP - General 12/18/15
--- OUTSIDE RECORDS SUMMARY | 2024-06-09 08:10 | XMS_ITS | Encounter Summary ---
Author Organization [facility] Address [address] [place] [address] Care Team Providers Care Metal Finish Inspector Name Role Phone Clem Olvera MD Primary Care Provider [phone] Reason for Referral * (Routine) - Closed [...] Service at [facility] at [phone] or , extension [phone]. For any scheduling of appointments, please call [phone] or , extension [phone]. . * (Routine) - Closed Specialty Diagnoses [...] Expiration Date V isits Requested Visits Authorized [id number] Closed Specialty Services Required 02/27/2016 1 1 [...] Medical Center Cardiology is located at [address] [facility] in [place] -Clinics are also held in [facility], [place], [place] and [facility]. If you live in those areas, we will make arrangements for follow-up appointments in one of those clinics.. Encounter Details Date Type Department Care Team (Late st Contact Info) Description 02/27/2016 6:30 EDT - 02/28/2016 13:39 EDT Hospital Encounter [facility] Cardiac/Telemetry Unit [address] [place] [address] Gulshan Drummond MD PhD [address] [facility], Level 1 [place] [phone] Gulshan Montoya Sa, MD [address] [facility] [address] [place] [phone] AICD lead malfunction, subsequent encounter; ICD [...] EF of 20-25% status post silent inferior AL in the early . 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 He had heart failure symptoms that started around May 2013, when he was in [place], [place]. This triggered major cardiac workup including [...] then underwent a device upgrade to a SAFETY AND HEALTH MANAGER-D device with biventricular pacing for his [...] in cardiology outreach clinic at [facility] in [place]. Continued high pacing threshold on the epicardial [...] and plans to follow up with his [place] Former Machine Operator in [place] in 6-8 weeks for which he will arrange once he has arrived in [place]. He has been provided with the implant [...] HGBA1C Discharge Follow Up Appointments Scheduled with [facility] Appointments Outside of [facility] We Will Schedule Studies We Will Schedule Appointments We Recommend but have not been Scheduled Beatrice De La Garza NP 02/27/2016 10:59 Cosigned by Gulshan Montoya Sa, MD at 02/28/2016 15:19 EDT Associated attestation - Gulshan Montoya Sa, MD - 02/28/2016 3219 EDT Attending Attestation: I saw and evaluated the patient. I discussed the case with the resident/CREPING MACHINE OPERATOR/fellow and agree with the findings and [...] Notes * Lou Alfonso, JADON - 02/28/2016 5495 EDT Pt awaiting discharge. IV and tele [...] agree to review this medication with his certified medical coder and plans to remain on his home dosing, which was in the morning. He received dose this am. Ptleft via wheelchair with . * Jennifer Beatrice - 02/28/2016 1329 EDT Brief visit with patient and as they were being discharged. Patient states he is independent in self care and home management. He feels well supported by friends and neighbors. Patient has Medicare and [facility]. Pharmacy is [facility] in [facility]. No needs identified at time of discharge. will provide transportation. Beatrice Rodriguez RN Case Manager #[phone] documented in this encounter H&P Notes * Navdeep Hurd MD - 02/27/2016 0830 EDT Cardiology Admitting H&P Admit Date: 02/27/2016 Date of Service: 02/27/2016 PCP: Clem Olvera Code Status: Full Code Chief Complaint: FINN, device battery depletion, high pacing threshold on epicardial lead HPI: 74-year-old man with coronary artery disease and ischemic cardiomyopathy status post silent inferior AL in the early . 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 He had heart failure symptoms that started around May 2013, when he was in [place], [place]. This triggered major cardiac workup including [...] point, his device was upgraded to a SAFETY AND HEALTH MANAGER-D device with biventricular pacing. By the [...] in cardiology outreach clinic at [facility] in [place]. Continued high pacing threshold on the epicardial LV lead has caused a very rapid battery depletion. Dr. David Adams in [place] recommended against lead extraction and reimplant as [...] ??? Pacemaker insertion 2002 2013 second pacemaker [facility] Social History Family History Social History Substance Use Topics ??? Smoking status: Former Smoker Years: 35.00 Quit date: 1989 ??? Smokeless tobacco: Not on file ??? Alcohol use 6.6 oz/week 6 Cans of beer, 5 Glasses of wine per week , lives with , retired. Spends leong in [place]. Spends the chery in [place], [place]. Quit smoking in 1990. Has 2 [...] and ischemic cardiomyopathy status post silent inferior AL in the early . Also diagnosed with [...] point, his device was upgraded to a SAFETY AND HEALTH MANAGER-D device with biventricular pacing with a [...] Care - Mady Bruno RN - 02/27/2016 8345 EDT Problem: Daily Care Plan Goals Goal: [...] 03/12/2016 12:4 3 EST us Scan 2 Industrial Plant Custodian PROCEDURE/MINOR SURGICAL OR DERABLES Final Result * ECG REPORT - SCANNED (03/04/2016 14:06 EDT) 03/04/2016 14:0 6 EDT us Scan 2 Industrial Plant Custodian PROCEDURE/MINOR SURGICAL OR DERABLES Final Result * ECG REPORT - SCANNED (03/04/2016 14:06 EDT) 03/04/2016 14:0 6 EDT us Scan 2 Industrial Plant Custodian PROCEDURE/MINOR SURGICAL OR DERABLES Final Result * IMPLANT RECORD - SCANNED (03/04/2016 14:06 EDT) 03/04/2016 14:0 6 EDT us Scan 2 Industrial Plant Custodian PROCEDURE/MINOR SURGICAL OR DERABLES Final Result * ECG REPORT - SCANNED (03/01/2016 8:58 EDT) 03/01/2016 8:58 EDT us Scan 2 Industrial Plant Custodian PROCEDURE/MINOR SURGICAL OR DERABLES Final Result * ECG REPORT - SCANNED (03/01/2016 8:58 EDT) 03/01/2016 8:58 EDT us Scan 2 Industrial Plant Custodian PROCEDURE/MINOR SURGICAL OR DERABLES Final Result * [...] 9.84 4.0 - 10.4 K/cmm 02/28/2016 6:26 [facility] RBC 4.42 4.36 - 5.78 M/cmm 02/28/2016 6:26 [facility] Hemoglobin 14.2 13.8 - 17.3 gm/dl 02/28/2016 6:26 [facility] HCT 40.9 39.5 - 50.2 % 02/28/2016 6:26 [facility] MCV 93 81 - 95 fl 02/28/2016 6:26 [facility] MCH 32.1 27.6 - 33.0 pg 02/28/2016 6:26 [facility] MCHC 34.7 32.8 - 36.4 gm/dl 02/28/2016 6:26 [facility] RDW-CV 13.1 11.8 - 14.1 % 02/28/2016 6:26 EDT [facility] RDW-SD 44.6 36.5 - 45.9 fl 02/28/2016 6:26 EDT [facility] PLT 151 141 - 377 K/cmm 02/28/2016 6:26 EDT [facility] MPV 11.2 9.5 - 12.7 fl 02/28/2016 6:26 EDT [facility] Blood specimen (specimen) BLOOD SPECIMEN / Unknown 02/28/2016 5:44 EDT 02/28/2016 6:13 EDT Beatrice De La Garza CREPING MACHINE OPERATOR HEMATOLOGY & PF4 ORDE RABLES Final Result Performing Organization Address [facility] Co de Phone Number [facility] [address] [place] [address] * (ABNORMAL) CREATININE (02/28/2016 5:44 EDT) Creatinine 0.65(L) 0.66 - 1.25 mg/dl 02/28/2016 6:48 EDT [facility] GFR, Calculated 95 >60 ml/min/1.7 3m2 02/28/2016 6:48 EDT [facility] Comment: eGFR calculated using CKD-EPI equation for non Americans. Multiply eGFR by 1.16 for Americans. Blood specimen (specimen) BLOOD SPECIMEN / Unknown 02/28/2016 5:44 EDT 02/28/2016 6:13 EDT Beatrice De La Garza NP CHEMISTRY & BLOOD GAS ORDERABLES Final Result Performing Organization Address [facility]/ZIP Co de Phone Number [facility] [address] [place] [address] * BUN (02/28/2016 5:44 EDT) BUN 14 10 - 26 mg/dl 02/28/2016 6:48 EDT [facility] Blood specimen (specimen) BLOOD SPECIMEN / Unknown 02/28/2016 5:44 EDT 02/28/2016 6:13 EDT Beatrice De La Garza CREPING MACHINE OPERATOR CHEMISTRY & BLOOD GAS ORDERABLES Final Result Performing Organization Address [facility] Co de Phone Number [facility] [address] [place] [address] * ELECTROLYTES (02/28/2016 5:44 EDT) Sodium 138 136 - 145 mEq/L 02/28/2016 6:48 EDT [facility] Potassium 4.7 3.5 - 5.0 mEq/L 02/28/2016 6:48 EDT [facility] Chloride 104 96 - 110 mEq/L 02/28/2016 6:48 EDT [facility] CO2 25 22 - 32 mEq/L 02/28/2016 6:48 EDT [facility] Comment:Note new reference r hong 02/19/16 Blood specimen (specimen) BLOOD SPECIMEN / Unknown 02/28/2016 5:44 EDT 02/28/2016 6:13 EDT Result [facility] Beatrice De La Garza NP CHEMISTRY & BLOOD GAS ORDERABLES Final Result Performing Organization Address [facility] Co de Phone Number [facility] [address] [place] [address] * PORTABLE CHEST 1 VIEW (02/27/2016 12:46 [...] 12:41 EDT) 02/27/2016 12:4 1 EDT Narrative [facility] EKG - 02/28/2016 8:57 EDT ? [facility] ? Test Date: ?2016-02-27 Pat Name: ? NABIL IGLESIAS ? Department: ?? [facility] 5 ? Room: ? MW514 Gender: ? M ?Photogrammetric Tech: ?? [id number] : ?1940 ? Requested By: KAIN Gallagher Order Number: [id number] ? Julia WRIGHT: ?? BRAYAN CUENCA MD ? Measurements Intervals ?Deposit ? Rate: ? 63 ? P: ?15 MS: ? 159 ?QRS: ?234 QRSD: ? 156 [...] Date: 2016-02-27 Pat Name: NABIL IGLESIAS Department: [place] [address] Room: [facility] Gender: M Photogrammetric Tech: [id number] : 1940 Requested By: KAIN Gallagher Order Number: [id number] Reading MD: BRAYAN CUENCA MD Measurements Intervals Deposit Rate: 63 P: 15 MS: 159 QRS: 234 QRSD: 156 T: 15 QT: 479 QTc: 493 Interpretive Statements ELECTRONIC VENTRICULAR PACEMAKER Compared to ECG 02/27/2016 08:10:34 No significant changes I reviewed the tracing and have either agreed or edited the findings inthis report. Electronically Signed On 02-28-16 08:57:02 EDT by BRAYAN BEEBE. us Gulshan Drummond MD PhD CARDIAC ECG OR DERABLES Final Result Performing Organization Address [facility] Co de Phone Number [facility] EKG * PROTIME (02/27/2016 8:45 EDT) Pro Time 12.3 10.3 - 13.1 secs 02/27/2016 9:10 EDT [facility] Comment: New prothrombin t josue range effective 01/29/16 I.N.R. 1.1 0.9 - 1.1 Ratio 02/27/2016 9:10 EDT [facility] Comment: Moderate Intensity Coumadin INR = 2.0-3.0 Adjustments in anticoagulant therapy dose should be based upon the INR and NOT the Pro Time. Blood specimen (specimen) BLOOD SPECIMEN / Unknown 02/27/2016 8:45 EDT 02/27/2016 8:54 EDT us Gulshan Drummond MD PhD HEMATOLOGY & P F4 ORDERABLES Final Result Performing Organization Address [facility] Co de Phone Number [facility] [address] [place] [address] * HEMAGRAM (02/27/2016 8:45 EDT) WBC 6.47 4.0 - 10.4 K/cmm 02/27/2016 8:57 EDT [facility] RBC 4.51 4.36 - 5.78 M/cmm 02/27/2016 8:57 T [facility] Hemoglobin 14.7 13.8 - 17.3 gm/dl 02/27/2016 8:57 EDT [facility] HCT 41.7 39.5 - 50.2 % 02/27/2016 8:57 EDT [facility] MCV 93 81 - 95 fl 02/27/2016 8:57 EDT [facility] MCH 32.6 27.6 - 33.0 pg 02/27/2016 8:57 EDT [facility] MCHC 35.3 32.8 - 36.4 gm/dl 02/27/2016 8:57 EDT [facility] RDW-CV 13.1 11.8 - 14.1 % 02/27/2016 8:57 EDT [facility] RDW-SD 44.0 36.5 - 45.9 fl 02/27/2016 8:57 EDT [facility] PLT 176 141 - 377 K/cmm 02/27/2016 8:57 EDT [facility] MPV 10.7 9.5 - 12.7 fl 02/27/2016 8:57 EDT [facility] Blood specimen (specimen) BLOOD SPECIMEN / Unknown 02/27/2016 8:45 EDT 02/27/2016 8:54 EDT us Gulshan Drummond MD PhD HEMATOLOGY & P F4 ORDERABLES Final Result Performing Organization Address [facility] Co de Phone Number [facility] [address] [place] [address] * ELECTROLYTES (02/27/2016 8:45 EDT) Sodium 142 136 - 145 mEq/L 02/27/2016 9:13 T [facility] Potassium 4.7 3.5 - 5.0 mEq/L 02/27/2016 9:13 T [facility] Chloride 103 96 - 110 mEq/L 02/27/2016 9:13 EDT [facility] CO2 27 22 - 32 mEq/L 02/27/2016 9:13 T [facility] Comment:Note new reference r hong 02/19/16 Blood specimen (specimen) BLOOD SPECIMEN / Unknown 02/27/2016 8:45 EDT 02/27/2016 8:54 EDT us Gulshan Drummond MD PhD CHEMISTRY & BL OOD GAS ORDERABLES Final Result Performing Organization Address [facility]/ZIP Co de Phone Number [facility] [address] [place] [address] * CREATININE (02/27/2016 8:45 EDT) Creatinine 0.69 0.66 - 1.25 mg/dl 02/27/2016 9:13 EDT [facility] GFR, Calculated 93 >60 ml/min/1.7 3m2 02/27/2016 9:13 EDT [facility] Comment: eGFR calculated using CKD-EPI equation for non Americans. Multiply eGFR by 1.16 for Americans. Blood specimen (specimen) BLOOD SPECIMEN / Unknown 02/27/2016 8:45 EDT 02/27/2016 8:54 EDT us Gulshan Drummond MD PhD CHEMISTRY & BL OOD GAS ORDERABLES Final Result Performing Organization Address [facility] Co de Phone Number [facility] [address] [place] [address] * BUN (02/27/2016 8:45 EDT) BUN 17 10 - 26 mg/dl 02/27/2016 9:13 EDT [facility] Blood specimen (specimen) BLOOD SPECIMEN / Unknown 02/27/2016 8:45 EDT 02/27/2016 8:54 EDT us Gulshan Drummond MD PhD CHEMISTRY & BL OOD GAS ORDERABLES Final Result Performing Organization Address [facility] Co de Phone Number [facility] [address] [place] [address] * EKG 12-LEAD (02/27/2016 8:08 EDT) 02/27/2016 8:08 EDT Narrative [facility] EKG - 02/28/2016 9:01 EDT ? [facility] ? Test Date: ?2016-02-27 Pat Name: ? NABIL IGLESIAS ? Department: ?? [facility] ? Room: ? CG2717 Gender: ? M ?Photogrammetric Tech: ?? [id number] : ?1940 ? Requested By: MARCIA Boo Order Number: [id number] ? Reading MD: ?? BRAYAN CUENCA MD ? Measurements Intervals ?Deposit ? Rate: ? 69 ? P: ?147 MS: ? 134 ?QRS: ?-67 QRSD: ? 160 [...] Pat Name: NABIL IGLESIAS Department: [facility] Room: DV2377 Gender: M Photogrammetric Tech: [id number] : 1940 Requested By: MARCIA Boo Order Number: [id number] Reading MD: BRAYAN CUENCA MD Measurements Intervals Deposit Rate: 69 P: 147 MS: 134 QRS: -67 QRSD: 160 T: -59 QT: 434 QTc: 467 Interpretive Statements ELECTRONIC ATRIAL PACEMAKER ELECTRONIC VENTRICULAR PACEMAKER Compared to ECG 02/27/2016 08:08:46 No significant changes I reviewed the tracing and have either agreed or edited the findings inthis report. Electronically Signed On 02-28-16 09:01:04 EDT by BRAYAN BEEBE. Navdeep Hurd MD CARDIAC ECG ORDERABLES Final Result [facility] EKG documented in this encounter Visit [...] Reason: Other - Comment: pt already took NEURODIAGNOSTIC TECH, takes other meds at HS) 921 [...] Reason: Other - Comment: pt already took NEURODIAGNOSTIC TECH, takes other meds at HS)210 (Given - Provider: Mady Bruno, JADON) spironolactone (ALDACTONE) tablet 12.5 mg 12.5 mg, oral, DAILY, First dose on Thu02/27/16 at 1245, Until Discontinued, Routine 1306 (Not Given - Provider: Nneka Stuart RN - Reason: Other - Comment: pt already took NEURODIAGNOSTIC TECH, takes other meds at HS)210 (Given - Provider: Mady Bruno RN) tamsulosin (FLOMAX) capsule 0.4 mg 0.4 mg, oral, DAILY, First dose on Thu02/27/16 at 1245, Until Discontinued, Routine 1306 (Not Given - Provider: Nneka Stuart RN - Reason: Other - Comment: pt already took NEURODIAGNOSTIC TECH, takes other meds at HS) 09 (Given [...] 02/02 documented in this encounter Care Teams Metal Finish Inspector Relationship Specialty Start Date End Date Clem Olvera MD [address] [place] [address] PCP - General 12/18/15 documented as of this encounter
--- OUTSIDE RECORDS SUMMARY | 2024-06-09 08:10 | XMS_ITS | Encounter Summary ---
[place] [address] Care Team Providers Care Wheel Grinder Name Role Phone Donny Cooper MD Primary Care Provider [phone] Encounter Details Date Type Department Care Team (Latest Contact Info) Description 04/03/2023 10:00 AM EST - 04/03/2023 11:59 PM [facility] Hospital Encounter Non-[place] [address] Discharge Disposition: Home Social History Tobacco Use [...] AM EDT Hospital Encounter Non-In[place] [address] Arrived documented as of this [...] filedocumented in this encounter Care Teams Wheel Grinder Relationship Specialty Start Date End Date Donny Cooper MD [address] [place] [address] PCP - General Family Medicine 02/25/19 documented as of this encounter
--- OUTSIDE RECORDS SUMMARY | 2024-06-09 08:10 | XMS_ITS | Encounter Summary ---
Author Organization [facility] Address [address] [place] [address] Care Team Providers Care Circus Train Supervisor Name Role Phone Unknown, Provider Primary Care Provider Clem Alcala MD Primary Care Provider [phone] Encounter Details Date Type Department Care Team (Late st Contact Info) Description 11/29/2015 Pre-Procedure [facility] [address], [place] [address] Navdeep Hurd MD [address] [place] [address] [address] Social History Tobacco Use Types [...] Nabil Boo. Attending: Dr. Dean Bailey Chief Pilot: Dr. Fantasma Dhillon History/indication: The patient is [...] Nabil Streeter Attending: Dr. Dean Bailey Chief Pilot: Dr. Fantasma Dhillon History/indication: The patient is [...] on filedocumented in this encounter Care Teams Circus Train Supervisor Relationship Specialty Start Date End Date Unknown, Provider, PCP - General 12/06/12 12/17/15 Clem Olvera MD [address] [place] [address] PCP - General 12/18/15 documented as of this encounter
--- OUTSIDE RECORDS SUMMARY | 2024-06-09 08:10 | XMS_ITS | Encounter Summary ---
Author Organization [facility] Address [address] [place] [address] Care Team Providers Care Digital Campaign Manager Name Role Phone Clem Olvera MD Primary Care Provider [phone] Reason for Visit * Reason Onset Date Comments Other 04/04/2019 Transfer request for [place] [facility] Encounter Details Date Type Department Care Team (Late st Contact Info) Description 04/04/2019 Telephone [facility] Card[facility] Clinic [address] [place] [address] Giselle Hill, RIGGING LOFT REPAIRER Other (Transfer request for Pacer Care at [...] 04/04/2019 1503 EST I went into the [employer] Website and released pt to [facility] [...] filedocumented in this encounter Care Teams Digital Campaign Manager Relationship Specialty Start Date End Date Clem Olvera MD [address] [place] [address] PCP - General 12/18/15 documented as of this encounter
--- OUTSIDE RECORDS SUMMARY | 2024-06-09 08:11 | XMS_ITS | Encounter Summary ---
[place] [address] Care Team Providers Care Databases Computer Consultant Name Role Phone Donny Cooper MD Primary Care Provider [phone] Encounter Details Date Type Department Care Team (Latest Contact Info) Description 07/07/2022 10:00 AM EST - 07/07/2022 11:59 PM EST Hospital Encounter [place] [address] Discharge Disposition: Home Social History Tobacco Use [...] AM EDT Hospital Encounter Non[place] [address] Arrived documented as of this [...] on filedocumented in this encounter Care Teams Databases Computer Consultant Relationship Specialty Start Date End Date Donny Cooper MD [address] [place] [address] PCP - General Family Medicine 02/25/19 documented as of this encounter
--- OUTSIDE RECORDS SUMMARY | 2024-06-09 08:11 | XMS_ITS | Encounter Summary ---
Author Organization [facility] [place] [address] Care Team Providers Care Clinical Care Leader Name Role Phone Donny Cooper MD Primary Care Provider [phone] Encounter Details Date Type Department Care Team (Late st Contact Info) Description 07/26/2019 Notes Only Cardiology at [address] [address] Maged Arguelles MD [facility] [place] [address] Social History Tobacco Use Types Packs/Day Years [...] his Medtronic biventricular ICD is reviewed. Suboptimal PHOTOGRAPHIC INTELLIGENCE OFFICER at 84%. Normal device function. Awaiting Holter to assess PVC burden. Maged Arguelles MD [facility] Cardiac Electrophysiology 07/26/2019 9:04 AM documented in this encounter Plan of Treatment Upcoming Encounters Date Type Department Care Team (Late st Contact Info) Description 07/31/2024 10:00 AM EDT Hospital Encounter Non-[place]vasive [place] [address] Arrived documented as of this encounter Visit Diagnoses Not on filedocumented in this encounter Care Teams Clinical Care Leader Relationship Specialty Start Date End Date Donny Cooper MD [address] [place] [address] PCP - General Family Medicine 02/25/19 documented as of this encounter
--- OUTSIDE RECORDS SUMMARY | 2024-06-09 08:11 | XMS_ITS | Encounter Summary ---
[place] [address] Care Team Providers Care Wildlife Conservation Officer Name Role Phone Marques Martinez MD Primary Care Provider [phone] Encounter Details Date Type Department Care Team (Late st Contact Info) Description 05/01/2010 3:10 PM EST Office [place] [phone] Jairon Fenton MD Discharge Disposition: Home Social [...] AM EDT Hospital Encounter Non-Invasive [place] [address] Arrived documented as of this encounter Visit Diagnoses Not on filedocumented in this encounter Care Teams Wildlife Conservation Officer Relationship Specialty Start Date End Date Marques Martinez MD [address] [place] [address] PCP - General 04/01/10 04/08/11 documented as of this encounter
--- OUTSIDE RECORDS SUMMARY | 2024-06-09 08:11 | XMS_ITS | Encounter Summary ---
[place] [address] Care Team Providers Care Plate Worker Helper Name Role Phone Donny Cooper MD Primary Care Provider [phone] Encounter Details Date Type Department Care Team (Late st Contact Info) Description 06/14/2020 Telephone Cardiology at [address] [phone] Nhung Briggs Social History Tobacco Use Types [...] He would like to be seen at [facility]. Email sent to Brittaney Hernandez at [facility] asking her to reach out to pt to set up the appt with either Dr. Arguelles or LANG Albert. Nhung Allen Electrophysiology Scheduling [id number] option 2 documented in this encounter Plan of Treatment Upcoming Encounters Date Type Department Care Team (Late st Contact Info) Description 07/31/2024 10:00 AM EDT Hospital Encounter Non-[place] [address] Arrived documented as of this encounter Visit Diagnoses Not on filedocumented in this encounter Care Teams Plate Worker Helper Relationship Specialty Start Date End Date Donny Cooper MD [address] [place] [address] PCP - General Family Medicine 02/25/19 documented as of this encounter
--- OUTSIDE RECORDS SUMMARY | 2024-06-09 08:11 | XMS_ITS | Encounter Summary ---
Author Organization [facility] [place] [address] Care Team Providers Care Stacker Driver Name Role Phone Marques Matrinez MD Primary Care Provider [phone] Encounter Details Date Type Department Care Team (Late st Contact Info) Description 03/30/2010 [place] [address] Javier Barajas MD [facility] [place] [address] Social History Tobacco Use Types Packs/Day Years [...] AM EDT Hospital Encounter [place] [address] Arrived documented as of this encounter Procedures [...] EST Jairon Fenton MD CHEMISTRY ORDERABLES [facility] * (ABNORMAL) CREATININE, SERUM (04/01/2010 6:09 [...] Fenton MD CHEMISTRY ORDERABLES Performing Organization Address [facility] de Phone Number CERNER CHRISTOSENNIUM * BUN (04/01/2010 6:09 AM EST) Blood Urea Nitrogen 12 10 - 20 mg/dL CERNER MILLENNIUM Blood specimen (specimen) 04/01/2010 6:09 AM EST 04/01/2010 6:09 AM EST Jairon Fenton MD CHEMISTRY ORDERABLES Performing Organization Address [facility] de Phone Number [...] MD HEMATOLOGY ORDERABLE S Performing Organization Address [facility] de Phone Number [...] Fenton MD CHEMISTRY ORDERABLES Performing Organization Address [facility] Phone Number CERIVIS MILLENNIUM * ELECTROLYTE [...] Fenton MD CHEMISTRY ORDERABLES Performing Organization Address [facility] Co de Phone Number CERIVIS MILLENNIUM * CREATININE, SERUM (03/30/2010 6:05 PM EST) Creatinine 0.87 0.80 - 1.50 mg/dL [facility] Est Glomerular Filtration Rate >60 >=60 [facility] Comment: The National Kidney Disease Education [...] 18 10 - 20 mg/dL [facility] Blood specimen (specimen) 03/30/2010 6:05 PM EST 03/30/2010 6:13 PM EST Jairon Fenton MD CHEMISTRY ORDERABLES Performing Organization Address [facility] de Phone Number DEJA SEGOVIA * APTT (03/30/2010 6:05 PM EST) Partial Thromboplastin Time 26 25 - 37 sec CERNER CHRISTOSENNIUM Comment: Recommended therapeutic PTT range for full dose unfractionated heparin is 80-114 seconds. Blood specimen (specimen) 03/30/2010 6:05 PM EST 03/30/2010 6:14 PM EST Jairon Fenton MD HEMATOLOGY ORDERABLE S Performing Organization Address [facility] Phone Number DEJA SEGOVIA * PROTIME-INR (03/30/2010 6:05 PM EST) Prothrombin Time 14.2 12.3 - 14.7 sec [facility] Comment: [facility] Transfusion Committee Guidelines: INR less than 2.0, PTT less than OR equal to 43.5 seconds, or Fibrinogen greater than or equal to 100 mg/dl indicate adequate procoagulant activity for hemostasis in patients without underlying bleeding disorders. International Normalization Ratio 1.1 0.9 - 1.1 [facility] Blood specimen (specimen) 03/30/2010 6:05 PM EST 03/30/2010 6:14 PM EST Jairon Fenton MD HEMATOLOGY ORDERABLE S Performing Organization Address [facility] de Phone Number [...] Standard Deviation 44.2 35.0 - 46.0 fL [facility] RDW coefficient of variation 13.1 10.9 - 14.4 % [facility] Mean Platelet Volume 10.6 9.0 - 12.0 fL [facility] Blood specimen (specimen) 03/30/2010 6:05 PM EST 03/30/2010 6:13 PM EST Jairon Fenton MD HEMATOLOGY ORDERABLE S Performing Organization Address [facility] Co de Phone Number [facility] * REFLEX LAB-ANTIBODY SCREEN (03/30/2010 3:17 PM EST) [facility] Ab Screen Interp Negative [facility] Expires at [id number] on: [id number] [facility] Blood specimen (specimen) 03/30/2010 3:17 PM EST 03/30/2010 3:17 PM EST Javier Barajas MD BLOOD BANK LAB ORDER PRECIOUS Performing Organization Address [facility] Co de Phone Number [facility] * REFLEX LAB-ABO/RH (03/30/2010 3:17 PM EST) [facility] ABORH Type A Pos [facility] Blood specimen (specimen) 03/30/2010 3:17 PM EST 03/30/2010 3:17 PM EST Javier Barajas MD BLOOD BANK LAB ORDER PRECIOUS Performing Organization Address [facility] Co de Phone Number [facility] * ELECTROLYTE PANEL (03/30/2010 2:50 PM EST) [facility] Sodium 135 135 - 145 mmol/L [facility] Potassium 4.3 3.5 - 5.0 mmol/L [facility] Comment: Please note: ??Patients with WBC [...] Barajas MD CHEMISTRY ORDERABLES Performing Organization Address [facility] Phone Number [facility] * BUN (03/30/2010 2:50 PM EST) Blood Urea Nitrogen 18 10 - 20 mg/dL [facility] Blood specimen (specimen) 03/30/2010 2:50 PM EST 03/30/2010 3:05 PM EST Javier Barajas MD CHEMISTRY ORDERABLES Performing Organization Address [facility] Phone Number [facility] * GLUCOSE, RANDOM (03/30/2010 2:50 PM EST) Glucose 95 <=199 mg/dL [facility] Comment:Diabetes: >=200 mg/d L plus symptoms Blood specimen (specimen) 03/30/2010 2:50 PM EST 03/30/2010 3:05 PM EST Javier Barajas MD CHEMISTRY ORDERABLES Performing Organization Address [facility] Phone Number [facility] * APTT (03/30/2010 2:50 PM EST) Partial Thromboplastin Time 25 25 - 37 sec [facility] Comment: Recommended therapeutic PTT range for full dose unfractionated heparin is 80-114 seconds. Blood specimen (specimen) 03/30/2010 2:50 PM EST 03/30/2010 3:06 PM EST Jvaier Barajas MD HEMATOLOGY ORDERABLE S Performing Organization Address [facility] Phone Number [facility] * PROTIME-INR (03/30/2010 2:50 PM EST) Prothrombin Time 14.1 12.3 - 14.7 sec [facility] Comment: [facility] Transfusion Committee Guidelines: INR less than [...] on filedocumented in this encounter Care Teams Stacker Driver Relationship Specialty Start Date End Date Marques Martinez MD [address] [place] [address] PCP - General 04/01/10 04/08/11 documented as of this encounter
--- OUTSIDE RECORDS SUMMARY | 2024-06-09 08:11 | XMS_ITS | Encounter Summary ---
Author Organization [facility] [place] [address] Care Team Providers Care Commodity Trader Name Role Phone Marques Martinez MD Primary Care Provider [phone] Encounter Details Date Type Department Care Team (Late st Contact Info) Description 10/09/2010 11:35 AM EDT - 10/09/2010 11:59 PM EDT Hospital Encounter XRay at [address] [place] [phone] Social History Tobacco Use Types Packs/Day Years [...] Hospital Encounter Non-Invasive Cardiology [place] [address] Arrived documented as of this encounter Visit Diagnoses Not on filedocumented in this encounter Care Teams Commodity Trader Relationship Specialty Start Date End Date Marques Martinez MD [address] [place] [address] PCP - General 04/01/10 04/08/11 documented as of this encounter
--- OUTSIDE RECORDS SUMMARY | 2024-06-09 08:11 | XMS_ITS | Encounter Summary ---
[place] [address] Care Team Providers Care Pool Attendant Name Role Phone Marques Martinez MD Primary Care Provider [phone] Encounter Details Date Type Department Care Team (Late st Contact Info) Description 06/12/2010 2:10 PM EST Office [place] [phone] Jairon Fenton MD Discharge Disposition: Home Social [...] AM EDT Hospital Encounter [place] [address] Arrived documented as of this encounter Visit Diagnoses Not on filedocumented in this encounter Care Teams Pool Attendant Relationship Specialty Start Date End Date Marques Martinez MD [address] [place] [address] PCP - General 04/01/10 04/08/11 documented as of this encounter
--- OUTSIDE RECORDS SUMMARY | 2024-06-09 08:11 | XMS_ITS | Encounter Summary ---
Author Organization [facility] Address [facility] [place] [address] Care Team Providers Care Folder Taper Operator Name Role Phone Clem Olvera MD Primary Care Provider [phone] Reason for Visit * Reason Comments Follow Up Fracture SP PATELLA FX DO12/12 DOI 03/30/10 Encounter Details Date Type Department Care Team (Late st Contact Info) Description 04/09/2011 1:30 PM EST Office [place] [address] Jairon Gustafson MD Aubin, Christopher J, PA [facility] [address] Patella fracture (Primary Dx) Discharge Disposition: Home [...] EDT Hospital Encounter Non-Invasive [place] [address] Arrived documented as of this encounter Visit Diagnoses Diagnosis Patella fracture- Primary Closed fracture of patella documented in this encounter Care Teams Folder Taper Operator Relationship Specialty Start Date End Date Clem Olvera MD [address] [place] [address] PCP - General 04/09/11 02/24/19 documented as of this encounter
--- OUTSIDE RECORDS SUMMARY | 2024-06-09 08:11 | XMS_ITS | Encounter Summary ---
Author Organization [facility] [place] [address] Care Team Providers Care Weatherization Crew Leader Name Role Phone Donny Cooper MD Primary Care Provider [phone] Encounter Details Date Type Department Care Team (Latest Contact Info) Description 12/18/2020 11:57 AM EDT - 12/18/2020 11:59 PM EDT Hospital Encounter Non-Invasive [place] [address] Maged Arguelles MD [facility] [place] [address] Cardiomyopathy, primary Discharge Disposition: Home Social History [...] AM EDT Hospital Encounter Non-Invasive [place] [address] Arrived documented as of this encounter Procedures Procedure Name Priority Date/Time Associated Diagnosis Comments ICD INTERROGATION 3 MONTH Routine 12/18/2020 12:00 PM EDT Cardiomyopathy, primary documented in this encounter Results * ICD INTERROGATION 3 MONTH (12/18/2020 12:00 PM EDT) Anatomical Region Laterality Modality Other Narrative 12/23/2020 11:08 PM EDT MDT INSIDE SALES ACCOUNT REPRESENTATIVE-D remote reviewed. Normal device function. Inadequate INSIDE SALES ACCOUNT REPRESENTATIVE at 80%. Maged Arguelles MD [facility] Cardiac Electrophysiology 12/23/2020 11:06 PM Maged Arguelles MD IMPLANTABLE CARDIAC DEVICE documented in this encounter Visit Diagnoses Diagnosis Cardiomyopathy, primary Other primary cardiomyopathies documented in this encounter Care Teams Weatherization Crew Leader Relationship Specialty Start Date End Date Donny Cooper MD [address] [facility] [address] [place] [address] PCP - General Family Medicine 02/25/19 documented as of this encounter
--- OUTSIDE RECORDS SUMMARY | 2024-06-09 08:11 | XMS_ITS | Encounter Summary ---
Author Organization [facility] [place] [address] Care Team Providers Care Client Experience Consultant Name Role Phone Donny Cooper MD Primary Care Provider [phone] Encounter Details Date Type Department Care Team (Latest Contact Info) Description 06/25/2021 3:23 PM EST - 06/25/2021 11:59 PM EST Hospital Encounter Non[place] [address] Alber Seals MD [facility] [place] [address] Cardiomyopathy, primary Discharge Disposition: Home Social History [...] Hospital Encounter Non[place] [address] Arrived documented as of this encounter Procedures Procedure Name Priority Date/Time Associated Diagnosis Comments ICD INTERROGATION 3 MONTH Routine 06/25/2021 3:24 PM EST Cardiomyopathy, primary documented in this encounter Results * ICD INTERROGATION 3 MONTH (06/25/2021 3:24 PM EST) Anatomical Region Laterality Modality Other Narrative 06/25/2021 3:42 PM EST Cardiac Device Remote Monitoring Report Summary Medtronic Carelink Device: PYTHON ENGINEER-D Model: VIVA QUAD Battery: 2.95 v, estimated longevity 2 years 6 months Pacing percentage: 90% PYTHON ENGINEER paced Events: Presenting rhythm: atrial paced/biventricular paced Frequent PVC's Impression Normal device function Follow Up As per schedule - in-clinic and remote ALBER SEALS MD 06/25/21 Alber Seals MD IMPLANTABLE CARDIAC DEVICE documented in this encounter Visit Diagnoses Diagnosis Cardiomyopathy, primary Other primary cardiomyopathies documented in this encounter Care Teams Client Experience Consultant Relationship Specialty Start Date End Date Donny Cooper MD [address] [place] [address] PCP - General Family Medicine 02/25/19 documented as of this encounter
--- OUTSIDE RECORDS SUMMARY | 2024-06-09 08:11 | XMS_ITS | Encounter Summary ---
Author Organization [facility] [place] [address] Care Team Providers Care Licensed Marriage And Family Therapist Name Role Phone Donny Cooper MD Primary Care Provider [phone] Encounter Details Date Type Department Care Team (Latest Contact Info) Description 06/13/2020 12:35 PM EST - 06/13/2020 11:59 PM EST Hospital Encounter Non-[place] [address] Alber Seals MD [facility] [place] [address] Cardiomyopathy, primary Discharge Disposition: Home Social History [...] AM EDT Hospital Encounter Non-[place] [address] Arrived documented as of this encounter Procedures Procedure Name Priority Date/Time Associated Diagnosis Comments ICD INTERROGATION 3 MONTH Routine 06/13/2020 12:36 PM EST Cardiomyopathy, primary documented in this encounter Results * ICD INTERROGATION 3 MONTH (06/13/2020 12:36 PM EST) Anatomical Region Laterality Modality Other Narrative 06/14/2020 10:38 AM EST Cardiac Device Remote Monitoring Report Summary Medtronic Hallway Social Learning Network 06/14/20 Device: DIRECTOR OF GUIDANCE IN PUBLIC [employer]S-D Model: VIVA QUAD Battery: 2.96 v, estimated longevity 3 years, 11 months Pacing percentage: 78% ventricular paced Events: The presenting rhythm is atrial paced with biventricular pacing and frequent ventricular premature contractions No significant arrhythmias Impression Normal device function; suboptimal DIRECTOR OF GUIDANCE IN [employer] pacing likely secondary to frequent PVCs. Should consider in clinic follow-up for further evaluation Follow Up As per schedule - in-clinic and remote ALBER SEALS MD Alber Seals MD IMPLANTABLE CARDIAC DEVICE documented in this encounter Visit Diagnoses Diagnosis Cardiomyopathy, primary Other primary cardiomyopathies documented in this encounter Care Teams Licensed Marriage And Family Therapist Relationship Specialty Start Date End Date Donny Cooper MD [address] [place] [address] PCP - General Family Medicine 02/25/19 documented as of this encounter
--- OUTSIDE RECORDS SUMMARY | 2024-06-09 08:11 | XMS_ITS | Encounter Summary ---
[place] [address] Care Team Providers Care Celery Packer Name Role Phone Donny Cooper MD Primary Care Provider [phone] Encounter Details Date Type Department Care Team (Late st Contact Info) Description 03/17/2019 Telephone Cardiology at [address] [address] Sheri Quinn LNA Social History [...] 11:46 AM EST Medication list reviewed with [facility] list. Please review with patient at next clinic visit. documented in this encounter Plan of Treatment Upcoming Encounters Date Type Department Care Team (Late st Contact Info) Description 07/31/2024 10:00 AM EDT Hospital Encounter Non-Invasive [place] [address] Arrived documented as of this encounter Visit Diagnoses Not on filedocumented in this encounter Care Teams Celery Packer Relationship Specialty Start Date End Date Donny Cooper MD [address] [place] [address] PCP - General Family Medicine 02/25/19 documented as of this encounter
--- OUTSIDE RECORDS SUMMARY | 2024-06-09 08:11 | XMS_ITS | Encounter Summary ---
[place] [address] Care Team Providers Care Medical And Health Services Manager Name Role Phone Marques Martinez MD Primary Care Provider [phone] Encounter Details Date Type Department Care Team (Late st Contact Info) Description 05/01/2010 2:40 PM EST Procedure visit [place] [address] Social History Tobacco Use Types Packs/Day Years [...] AM EDT Hospital Encounter Non-Invasive [place] [address] Arrived documented as of this encounter Visit Diagnoses Not on filedocumented in this encounter Care Teams Medical And Health Services Manager Relationship Specialty Start Date End Date Marques Martinez MD [address] [place] [address] PCP - General 04/01/10 04/08/11 documented as of this encounter
--- OUTSIDE RECORDS SUMMARY | 2024-06-09 08:11 | XMS_ITS | Encounter Summary ---
Author Organization [facility] [place] [address] Care Team Providers Care Bull Gang Worker Name Role Phone Marques Martinez MD Primary Care Provider [phone] Reason for Visit * Reason Comments Follow Up Fracture PATELLA FX DOI 03/23 10 Encounter Details Date Type Department Care Team (Late st Contact Info) Description 10/09/2010 12:40 PM EDT Office [place] [address] Jairon Gustafson MD Aubin, Christopher J PA [facility] [place] [address] Quadriceps tendon rupture (Primary Dx) Discharge Disposition: [...] AM EDT Hospital Encounter Non-Invasive [place] [address] Arrived documented as of this encounter Visit Diagnoses Diagnosis Quadriceps tendon rupture- Primary Sprain and strain of other specified sites of knee and leg documented in this encounter Care Teams Bull Gang Worker Relationship Specialty Start Date End Date Marques Martinez MD [address] [place] [address] PCP - General 04/01/10 04/08/11 documented as of this encounter
--- OUTSIDE RECORDS SUMMARY | 2024-06-09 08:11 | XMS_ITS | Encounter Summary ---
Author [place] [address] Care Team Providers Care Clinical Phlebotomist Name Role Phone Marques Martinez MD Primary Care Provider Encounter Details Date Type Department Care Team (Late st Contact Info) Description 09/11/2010 Orders [place] [address] Jairon Fenton MD Fracture of patella, left, [...] AM EDT Hospital Encounter Non-[place] [address] Arrived documented as of this encounter Visit Diagnoses Diagnosis Fracture of patella, left, closed- Primary Closed fracture of patella documented in this encounter Care Teams Clinical Phlebotomist Relationship Specialty Start Date End Date Marques Martinez MD [address] [place] [address] PCP - General 04/01/10 04/08/11 documented as of this encounter
--- OUTSIDE RECORDS SUMMARY | 2024-06-09 08:11 | XMS_ITS | Encounter Summary ---
[place] [address] Care Team Providers Care Livestock Farm Manager Name Role Phone Marques Martinez MD Primary Care Provider [phone] Encounter Details Date Type Department Care Team (Late st Contact Info) Description 06/12/2010 2:00 PM EST Procedure visit [place] [address] Social History Tobacco Use Types Packs/Day Years [...] AM EDT Hospital Encounter Non-Invasive [place] [address] Arrived documented as of this encounter Visit Diagnoses Not on filedocumented in this encounter Care Teams Livestock Farm Manager Relationship Specialty Start Date End Date Marques Martinez MD [address] [place] [address] PCP - General 04/01/10 04/08/11 documented as of this encounter
--- OUTSIDE RECORDS SUMMARY | 2024-06-09 08:11 | XMS_ITS | Encounter Summary ---
[place] [address] Care Team Providers Care First Aid Nurse Name Role Phone Donny Cooper MD Primary Care Provider [phone] Encounter Details Date Type Department Care Team (Latest Contact Info) Description 04/08/2022 10:00 AM EST - 04/08/2022 11:59 PM [facility] Hospital Encounter Non-[place]vasive [place] [address] Discharge Disposition: Home Social History Tobacco Use [...] AM EDT Hospital Encounter Non-Invasive [place] [address] Arrived documented as of [...] on filedocumented in this encounter Care Teams First Aid Nurse Relationship Specialty Start Date End Date Donny Cooper MD [address] [place] [address] PCP - General Family Medicine 02/25/19 documented as of this encounter
--- OUTSIDE RECORDS SUMMARY | 2024-06-09 08:11 | XMS_ITS | Encounter Summary ---
[place] [address] Care Team Providers Care Panel Gluer Name Role Phone Marques Martinez MD Primary Care Provider [phone] Encounter Details Date Type Department Care Team (Late st Contact Info) Description 10/03/2010 [place] [address] Marina Orosco, JADON Social History Tobacco Use [...] AM EDT Hospital Encounter Non-Invasive [place] [address] Arrived documented as of this encounter Visit Diagnoses Not on filedocumented in this encounter Care Teams Panel Gluer Relationship Specialty Start Date End Date Marques Martinez MD [address] [place] [address] PCP - General 04/01/10 04/08/11 documented as of this encounter
[2024-06-09 08:18] VITALS: BP 116/59; PULSE 72
[2024-06-14 08:12] VITALS: BP 121/63; PULSE 74
--- OUTSIDE RECORDS SUMMARY | 2024-06-14 08:16 | XMS_ITS | Encounter Summary ---
Author Organization [facility] Address [address] [place] [address] Care Team Providers Care Drilling Machine Runner Name Role Phone Unavailable Primary Care Provider Unavailabl e Encounter Details Date Type Department Care Team (Late st Contact Info) Description 05/06/2001 Results Only [facility] - Maple conversion [address] [place] [address] Hernandez Partida MD [address] [place] [phone] Social History Tobacco Use Types Packs/Day Years [...] when reading/interpreting unformatted reports. Name: ? NABIL IGELSIAS ? Accession #: ? [id number] ? : [...] is submitted entirely in cassette (B). ??(Naty Caal)/[facility] End of Report DIVYA BERRY 05/06/2001 05/07/2001 9:2 5 EST us Hernandez Partida MD PATHOLOGY ORDERABLES Final Res ult DIVYA BERRY [address] [place] [address] documented in this encounter Visit Diagnoses Not on filedocumented in this encounter
--- OUTSIDE RECORDS SUMMARY | 2024-06-14 08:16 | XMS_ITS | Referral Summary ---
Author Organization [facility] Address [address] [place] [address] Care Team Providers Care Lumber Tripper Name Role Phone Clem Olvera MD Primary Care Provider [phone] Allergies No known active allergies Medications atorvastatin [...] Advance Directives For more information, please contact: [phone] * Full Code (Latest Code Status on File) Date Activated Date Inactivated Comments 02/27/2016 8:49 02/28/2016 15:40 Question Answer Comments Reason for decision includes: Full code consistent with overall plan of care Who participated in the discussion? Not Discusse d Care Teams Lumber Tripper Relationship Specialty Start Date End Date Clem Olvera MD [address] [place] [address] PCP - General 12/18/15
--- OUTSIDE RECORDS SUMMARY | 2024-06-14 08:16 | XMS_ITS | Encounter Summary ---
Author Organization [facility] Address [address] [place] [address] Care Team Providers Care Horse And Wagon Driver Name Role Phone Clem Olvera MD Primary Care Provider [phone] Reason for Referral * (Routine) - Closed [...] call the Cardiac Arrhythmia Service at [facility] at or , extension [phone]. For any scheduling of appointments, please call [phone] or , extension [phone]. . * (Routine) - Closed Specialty Diagnoses [...] Expiration Date V isits Requested Visits Authorized [id number] Closed Specialty Services Required 02/27/2016 1 1 [...] scheduled at your first appointment. - [facility] Cardiology is located at [address] [facility] in [place] -Clinics are also held in [facility], [place], [place] and [facility]. If you live in those areas, we will make arrangements for follow-up appointments in one of those clinics.. 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 He had heart failure symptoms that started around May 2013, when he was in [place], [place]. This triggered major cardiac workup including [...] then underwent a device upgrade to a REFUSE COLLECTOR SUPERVISOR-D device with biventricular pacing for his [...] been followed in cardiology outreach clinic at [facility] in [place]. Continued high pacing threshold on the epicardial [...] and plans to follow up with his Steam Drier Tender in [place] in 6-8 weeks for which [...] - Gulshan Montoya Sa, MD - 02/28/2016 9309 EDT Attending Attestation: I saw and evaluated the patient. I discussed the case with the resident/SSIS SSRS DEVELOPER/fellow and agree with the findings and [...] Notes * Lou Alfonso, JADON - 02/28/2016 4876 EDT Pt awaiting discharge. IV and tele [...] agree to review this medication with his research interviewer and plans to remain on his home [...] neighbors. Patient has Medicare and [facility]. Pharmacy is [facility] in [facility]. No needs identified at time of discharge. will provide transportation. Beatrice Rodriguez RN Case Manager #[phone] documented in this encounter H&P Notes * Navdeep Hurd MD - 02/27/2016 0830 EDT Cardiology Admitting H&P Admit Date: 02/27/2016 Date of Service: 02/27/2016 PCP: Clem Olvera Code Status: Full Code Chief Complaint: FINN, device battery depletion, high pacing threshold on epicardial lead HPI: 74-year-old man with coronary artery disease and ischemic cardiomyopathy status post silent inferior AK in the early . 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 He had heart failure symptoms that started around May 2013, when he was in [place], [place]. This triggered major cardiac workup including [...] point, his device was upgraded to a REFUSE COLLECTOR SUPERVISOR-D device with biventricular pacing. By the [...] been followed in cardiology outreach clinic at [facility] in [place]. Continued high pacing threshold on the epicardial LV lead has caused a very rapid battery depletion. Dr. David Adams in [place] recommended against lead extraction and reimplant as [...] in [place]. Spends the chery in [place], [place]. Quit smoking in 1990. Has 2 [...] and ischemic cardiomyopathy status post silent inferior AK in the early . Also diagnosed with [...] point, his device was upgraded to a REFUSE COLLECTOR SUPERVISOR-D device with biventricular pacing with a [...] Care - Mady Bruno RN - 02/27/2016 8691 EDT Problem: Daily Care Plan Goals Goal: [...] 03/12/2016 12:4 3 EST us Scan 2 Bar Attendant PROCEDURE/MINOR SURGICAL OR DERABLES Final Result * ECG REPORT - SCANNED (03/04/2016 14:06 EDT) 03/04/2016 14:0 6 EDT us Scan 2 Bar Attendant PROCEDURE/MINOR SURGICAL OR DERABLES Final Result * ECG REPORT - SCANNED (03/04/2016 14:06 EDT) 03/04/2016 14:0 6 EDT us Scan 2 Bar Attendant PROCEDURE/MINOR SURGICAL OR DERABLES Final Result * IMPLANT RECORD - SCANNED (03/04/2016 14:06 EDT) 03/04/2016 14:0 6 EDT us Scan 2 Bar Attendant PROCEDURE/MINOR SURGICAL OR DERABLES Final Result * ECG REPORT - SCANNED (03/01/2016 8:58 EDT) 03/01/2016 8:58 EDT us Scan 2 Bar Attendant PROCEDURE/MINOR SURGICAL OR DERABLES Final Result * ECG REPORT - SCANNED (03/01/2016 8:58 EDT) 03/01/2016 8:58 EDT us Scan 2 Bar Attendant PROCEDURE/MINOR SURGICAL OR DERABLES Final Result [...] 9.84 4.0 - 10.4 K/cmm 02/28/2016 6:26 [facility] RBC 4.42 4.36 - 5.78 M/cmm 02/28/2016 6:26 [facility] Hemoglobin 14.2 13.8 - 17.3 gm/dl 02/28/2016 6:26 [facility] HCT 40.9 39.5 - 50.2 % 02/28/2016 6:26 [facility] MCV 93 81 - 95 fl 02/28/2016 6:26 [facility] MCH 32.1 27.6 - 33.0 pg 02/28/2016 6:26 [facility] MCHC 34.7 32.8 - 36.4 gm/dl 02/28/2016 6:26 [facility] RDW-CV 13.1 11.8 - 14.1 % 02/28/2016 6:26 EDT [facility] RDW-SD 44.6 36.5 - 45.9 fl 02/28/2016 6:26 EDT [facility] PLT 151 141 - 377 K/cmm 02/28/2016 6:26 EDT [facility] MPV 11.2 9.5 - 12.7 fl 02/28/2016 6:26 EDT [facility] Blood specimen (specimen) BLOOD SPECIMEN / Unknown 02/28/2016 5:44 EDT 02/28/2016 6:13 EDT Beatrice De La Garza SSIS SSRS DEVELOPER HEMATOLOGY & PF4 ORDE RABLES Final Result Performing Organization Address City/[facility] Co de Phone Number [facility] [address] [place] [address] * (ABNORMAL) CREATININE (02/28/2016 5:44 EDT) Creatinine 0.65(L) 0.66 - 1.25 mg/dl 02/28/2016 6:48 EDT [facility] GFR, Calculated 95 >60 ml/min/1.7 3m2 02/28/2016 6:48 EDT [facility] Comment: eGFR calculated using CKD-EPI equation for non Americans. Multiply eGFR by 1.16 for Americans. Blood specimen (specimen) BLOOD SPECIMEN / Unknown 02/28/2016 5:44 EDT 02/28/2016 6:13 EDT Beatrice De La Garza NP CHEMISTRY & BLOOD GAS ORDERABLES Final Result Performing Organization Address City/[facility]/ZIP Co de Phone Number [facility] [address] [place] [address] * BUN (02/28/2016 5:44 EDT) BUN 14 10 - 26 mg/dl 02/28/2016 6:48 EDT [facility] Blood specimen (specimen) BLOOD SPECIMEN / Unknown 02/28/2016 5:44 EDT 02/28/2016 6:13 EDT Beatrice De La Garza SSIS SSRS DEVELOPER CHEMISTRY & BLOOD GAS ORDERABLES Final Result Performing Organization Address [facility] Co de Phone Number [facility] [address] [place] [address] * ELECTROLYTES (02/28/2016 5:44 EDT) Sodium 138 136 - 145 mEq/L 02/28/2016 6:48 EDT [facility] Potassium 4.7 3.5 - 5.0 mEq/L 02/28/2016 6:48 EDT [facility] Chloride 104 96 - 110 mEq/L 02/28/2016 6:48 EDT [facility] CO2 25 22 - 32 mEq/L 02/28/2016 6:48 EDT [facility] Comment:Note new reference r hong 02/19/16 Blood specimen (specimen) BLOOD SPECIMEN / Unknown 02/28/2016 5:44 EDT 02/28/2016 6:13 EDT Result [facility] Beatrice De La Garza NP CHEMISTRY & BLOOD GAS ORDERABLES Final Result Performing Organization Address [facility] Co de Phone Number [facility] [address] [place] [address] * PORTABLE CHEST 1 VIEW (02/27/2016 12:46 [...] 12:41 EDT) 02/27/2016 12:4 1 EDT Narrative [facility] EKG - 02/28/2016 8:57 EDT ? [facility] ? Test Date: ?2016-02-27 Pat Name: ? NABIL IGLESIAS ? Department: ?? HERNÁNDEZ 5 ? Room: ? MW514 Gender: ? M ?Senior Java J2Ee Developer: ?? [id number] : ?1940 ? Requested By: KAIN Gallagher Order Number: [id number] ? Julia WRIGHT: ?? BRAYAN CUENCA MD ? Measurements Intervals ?[place] ? Rate: ? 63 ? P: ?15 [...] Note Brayan Cuenca MD - 02/28/[address] [facility] Test Date: 2016-02-27 Pat Name: NABIL IGLESIAS Department: [place] [address] Room: [facility] Gender: M Senior Java J2Ee Developer: [id number] : 1940 Requested By: KAIN Gallagher Order Number: [id number] Reading MD: BRAYAN CUENCA MD Measurements Intervals [place] Rate: 63 P: 15 MO: 159 QRS: [...] OR DERABLES Final Result Performing Organization Address [facility] Co de Phone Number [facility] EKG * PROTIME (02/27/2016 8:45 EDT) Pro Time 12.3 10.3 - 13.1 secs 02/27/2016 9:10 EDT [facility] Comment: New prothrombin t josue range effective 01/29/16 I.N.R. 1.1 0.9 - 1.1 Ratio 02/27/2016 9:10 EDT [facility] Comment: Moderate Intensity Coumadin INR = 2.0-3.0 Adjustments in anticoagulant therapy dose should be based upon the INR and NOT the Pro Time. Blood specimen (specimen) BLOOD SPECIMEN / Unknown 02/27/2016 8:45 EDT 02/27/2016 8:54 EDT us Gulshan Drummond MD PhD HEMATOLOGY & P F4 ORDERABLES Final Result Performing Organization Address [facility] Co de Phone Number [facility] [address] [place] [address] * HEMAGRAM (02/27/2016 8:45 EDT) WBC 6.47 4.0 - 10.4 K/cmm 02/27/2016 8:57 EDT [facility] RBC 4.51 4.36 - 5.78 M/cmm 02/27/2016 8:57 T [facility] Hemoglobin 14.7 13.8 - 17.3 gm/dl 02/27/2016 8:57 EDT [facility] HCT 41.7 39.5 - 50.2 % 02/27/2016 8:57 EDT [facility] MCV 93 81 - 95 fl 02/27/2016 8:57 EDT [facility] MCH 32.6 27.6 - 33.0 pg 02/27/2016 8:57 EDT [facility] MCHC 35.3 32.8 - 36.4 gm/dl 02/27/2016 8:57 EDT [facility] RDW-CV 13.1 11.8 - 14.1 % 02/27/2016 8:57 EDT [facility] RDW-SD 44.0 36.5 - 45.9 fl 02/27/2016 8:57 EDT [facility] PLT 176 141 - 377 K/cmm 02/27/2016 8:57 EDT [facility] MPV 10.7 9.5 - 12.7 fl 02/27/2016 8:57 EDT [facility] Blood specimen (specimen) BLOOD SPECIMEN / Unknown 02/27/2016 8:45 EDT 02/27/2016 8:54 EDT us Gulshan Drummond MD PhD HEMATOLOGY & P F4 ORDERABLES Final Result Performing Organization Address City/[facility] Co de Phone Number [facility] [address] [place] [address] * ELECTROLYTES (02/27/2016 8:45 EDT) Sodium 142 136 - 145 mEq/L 02/27/2016 9:13 T [facility] Potassium 4.7 3.5 - 5.0 mEq/L 02/27/2016 9:13 T [facility] Chloride 103 96 - 110 mEq/L 02/27/2016 9:13 EDT [facility] CO2 27 22 - 32 mEq/L 02/27/2016 9:13 T [facility] Comment:Note new reference r hong 02/19/16 Blood specimen (specimen) BLOOD SPECIMEN / Unknown 02/27/2016 8:45 EDT 02/27/2016 8:54 EDT us Gulshan Drummond MD PhD CHEMISTRY & BL OOD GAS ORDERABLES Final Result Performing Organization Address City/[facility]/ZIP Co de Phone Number [facility] [address] [place] [address] * CREATININE (02/27/2016 8:45 EDT) Creatinine 0.69 0.66 - 1.25 mg/dl 02/27/2016 9:13 EDT [facility] GFR, Calculated 93 >60 ml/min/1.7 3m2 02/27/2016 9:13 EDT [facility] Comment: eGFR calculated using CKD-EPI equation for non Americans. Multiply eGFR by 1.16 for Americans. Blood specimen (specimen) BLOOD SPECIMEN / Unknown 02/27/2016 8:45 EDT 02/27/2016 8:54 EDT us Gulshan Drummond MD PhD CHEMISTRY & BL OOD GAS ORDERABLES Final Result Performing Organization Address City/[facility] Co de Phone Number [facility] [address] [place] [address] * BUN (02/27/2016 8:45 EDT) BUN 17 10 - 26 mg/dl 02/27/2016 9:13 EDT [facility] Blood specimen (specimen) BLOOD SPECIMEN / Unknown 02/27/2016 8:45 EDT 02/27/2016 8:54 EDT us Gulshan Drummond MD PhD CHEMISTRY & BL OOD GAS ORDERABLES Final Result Performing Organization Address City/[facility] Co de Phone Number [facility] [address] [place] [address] * EKG 12-LEAD (02/27/2016 8:08 EDT) 02/27/2016 8:08 EDT Narrative [facility] EKG - 02/28/2016 9:01 EDT ? [facility] ? Test Date: ?2016-02-27 Pat Name: ? NABIL IGLESIAS ? Department: ?? Periop[facility] ? Room: ? DR4695 Gender: ? M ?Senior Java J2Ee Developer: ?? [id number] : ?1940 ? Requested By: MARCIA Boo Order Number: [id number] ? Reading MD: ?? BRAYAN CUENCA MD ? Measurements Intervals ?[place] ? Rate: ? 69 ? P: ?147 [...] Note Brayan Cuenca MD - 02/28/[address] [facility] Test Date: 2016-02-27 Pat Name: NABIL IGLESIAS Department: [facility] Room: SF6050 Gender: M Senior Java J2Ee Developer: [id number] : 1940 Requested By: MARCIA Boo Order Number: [id number] Reading MD: BRAYAN CUENCA MD Measurements Intervals [place] Rate: 69 P: 147 MO: 134 QRS: -67 QRSD: 160 T: -59 QT: 434 QTc: 467 Interpretive Statements ELECTRONIC ATRIAL PACEMAKER ELECTRONIC VENTRICULAR PACEMAKER Compared to ECG 02/27/2016 08:08:46 No significant changes I reviewed the tracing and have either agreed or edited the findings inthis report. Electronically Signed On 02-28-16 09:01:04 EDT by BRAYAN BEEBE. Navdeep Hurd MD CARDIAC ECG ORDERABLES Final Result [facility] EKG documented in this encounter Visit [...] Reason: Other - Comment: pt already took SINGLE NEEDLE TUFTING MACHINE OPERATOR, takes other meds at HS) 921 [...] Reason: Other - Comment: pt already took SINGLE NEEDLE TUFTING MACHINE OPERATOR, takes other meds at HS)210 (Given - Provider: Mady Bruno, JADON) spironolactone (ALDACTONE) tablet 12.5 mg 12.5 mg, oral, DAILY, First dose on Thu02/27/16 at 1245, Until Discontinued, Routine 1306 (Not Given - Provider: Nneka Stuart RN - Reason: Other - Comment: pt already took SINGLE NEEDLE TUFTING MACHINE OPERATOR, takes other meds at HS)210 (Given - Provider: Mady Bruno RN) tamsulosin (FLOMAX) capsule 0.4 mg 0.4 mg, oral, DAILY, First dose on Thu02/27/16 at 1245, Until Discontinued, Routine 1306 (Not Given - Provider: Nneka Stuart RN - Reason: Other - Comment: pt already took SINGLE NEEDLE TUFTING MACHINE OPERATOR, takes other meds at HS) 09 (Given [...] 02/02 documented in this encounter Care Teams Horse And Wagon Driver Relationship Specialty Start Date End Date Clem Olvera MD [address] [place] [address] PCP - General 12/18/15 documented as of this encounter
--- OUTSIDE RECORDS SUMMARY | 2024-06-14 08:16 | XMS_ITS | Encounter Summary ---
Author Organization [facility] Address [address] [place] [address] Care Team Providers Care Manager Ethics Name Role Phone Clem Olvera MD Primary Care Provider [phone] Reason for Visit * Reason Onset Date Comments Other 04/04/2019 Transfer request for Pacer [place] [facility] Encounter Details Date Type Department Care Team (Late st Contact Info) Description 04/04/2019 Telephone [facility] Card[facility] Clinic [address] [place] [address] Giselle Hill, ATTORNEY RECRUITER Other (Transfer request for Pacer Care at [facility] Social History Tobacco Use Types Packs/Day Years [...] 04/04/2019 1503 EST I went into the [email or web address] Website and released pt to [facility] as requested. * Telephone Encounter - Suze Reynoso - 04/04/2019 1342 EST PT WILL BE HAVING HIS PACER CARE DONE AT [facility], PLEASE RELEASE HIS REMOTE MONITORING SO THAT THEY CAN PICK IT UP documented in this encounter Plan of Treatment Not on file documented as of this encounter Visit Diagnoses Not on filedocumented in this encounter Care Teams Manager Ethics Relationship Specialty Start Date End Date Clem Olvera MD [address] [place] [address] PCP - General 12/18/15 documented as of this encounter
--- OUTSIDE RECORDS SUMMARY | 2024-06-14 08:16 | XMS_ITS | Encounter Summary ---
Author Organization [facility] Address [address] [place] [address] Care Team Providers Care Autocad Designer Name Role Phone Clem Olvera MD Primary Care Provider [phone] Encounter Details Date Type Department Care Team (Late st Contact Info) Description 03/16/2019 Abstract [facility] [place] [address] [place] [address] Ronal Avelar RN AV block, 2nd degree [...] Device Narrative 03/24/2019 10:30 EST [facility] [place] Device Visit Fashion Adviser: [employer] Device Type: MOTORBOAT OPERATOR-D Service: Remote ? Indication: ICMO Battery [...] Miguel Ángel George APRN Miguel Ángel George POURER CV IMPLANTABLE CARDIAC DEVICE Final Result documented in this encounter Visit Diagnoses Diagnosis AV block, 2nd degree- Primary Other second degree atrioventricular block documented in this encounter Care Teams Autocad Designer Relationship Specialty Start Date End Date Clem Olvera MD [address] [place] [address] PCP - General 12/18/15 documented as of this encounter
--- OUTSIDE RECORDS SUMMARY | 2024-06-14 08:16 | XMS_ITS | Encounter Summary ---
Author Organization [facility] Address [address] [place] [address] Care Team Providers Care Notereader Name Role Phone Clem Olvera MD Primary Care Provider [phone] Encounter Details Date Type Department Care Team (Latest Contact Info) Description 12/20/2015 10:52 EDT - 12/20/2015 23:52 EDT Hospital Encounter [facility] Cardiovascular Unit [address] [place] [address] Navdeep Hurd MD [address] [place] [address] [address] Discharge Disposition: Home or Self [...] need to beNPO or have a tractor sweeper driver. However, his will be accompanying him. They are driving someone to the airport for 1000 and then will come here and check-in around 1145. He agrees to have a shower. documented in this encounter Procedure Notes * Fantasma Dhillon MD - 12/20/2015 1356 EDT IR Brief Procedure Note Attending: Leo Marine Extension Agent: Alejo Pre-op Dx: Arrhythmia, need for pacemaker [...] 12/19 documented in this encounter Care Teams Notereader Relationship Specialty Start Date End Date Clem Olvera MD [address] [place] [address] PCP - General 12/18/15 documented as of this encounter
--- OUTSIDE RECORDS SUMMARY | 2024-06-14 08:16 | XMS_ITS | Encounter Summary ---
Author Organization [facility] Address [address] [place] [address] Care Team Providers Care Dental Claims Processor Name Role Phone Unknown, Provider Primary Care Provider Clem Alcala MD Primary Care Provider [phone] Encounter Details Date Type Department Care Team (Late st Contact Info) Description 11/29/2015 Pre-Procedure [facility] [address] [place], [place] [address] Navdeep Hurd MD [address] [place] [address] [address] Social History Tobacco Use Types [...] Ferdinand Nabil Boo. Attending: Dr. Dean Bailey Box Shook Patcher: Dr. Fantasma Dhillon History/indication: The patient is [...] Patient: Nabil Streeter Attending: Dr. Dean Bailey Box Shook Patcher: Dr. Fantasma Dhillon History/indication: The patient is [...] interpretation and agree with the findings. us Navedep Hurd MD IMG IR ORDERABLES Final Result documented in this encounter Visit Diagnoses Not on filedocumented in this encounter Care Teams Dental Claims Processor Relationship Specialty Start Date End Date Unknown, Provider, PCP - General 12/06/12 12/17/15 Clem Olvera MD [address] [place] [address] PCP - General 12/18/15 documented as of this encounter
--- OUTSIDE RECORDS SUMMARY | 2024-06-14 08:16 | XMS_ITS | Encounter Summary ---
Author Organization [facility] Address [address] [place] [address] Care Team Providers Care Bleacher Kraft Pulp Name Role Phone Clem Olvera MD Primary Care Provider [phone] Reason for Visit * Reason Onset Date Comments Appointment Related 10/23/2016 Check for fo llow up of pacer Encounter Details Date Type Department Care Team ([facility] st Contact Info) Description 10/23/2016 Telephone [facility] Cardiology - [address] [place] [address] Pacemaker, Pace Appointment Related (Check [...] Date Author No 02/27/2016 14:17 EDT Tea Stuatr RN documented in this encounter Miscellaneous Notes * Telephone Encounter - Pushpa Shay - 10/23/2016 7517 EDT Spoke with Mrs. Iglesias who stated that Nabil had his pacemaker checked in [place] where they are for the winter. They have some back and are being followed by Dr. Hurd at [facility]. documented in this encounter Plan of Treatment Not on file documented as of this encounter Visit Diagnoses Not on filedocumented in this encounter Care Teams Bleacher Kraft Pulp Relationship Specialty Start Date End Date Clem Olvera MD [address] [place] [address] PCP - General 12/18/15 documented as of this encounter
--- OUTSIDE RECORDS SUMMARY | 2024-06-14 08:16 | XMS_ITS | Encounter Summary ---
Author Organization [facility] Address [address] [place] [address] Care Team Providers Care Veneer Clipper Name Role Phone Clem Olvera MD Primary Care Provider [phone] Reason for Referral * Cardiology (3 - [...] Expiration Date Visits Re quested Visits Authorized [id number] Closed 02/13/2016 1 1 Encounter Details Date Type Department Care Team (Latest Contact Info) Description 02/13/2016 Pre-Procedure Orders [facility] [address] [place], [place] [address] Navdeep Hurd MD [address] [place] [address] [phone] ICD (implantable cardioverter-defibril lator) battery depletion (Primary [...] EDT Narrative 02/27/2016 15:17 EDT *Cardiology* [address] [place] [address] Lead Revision (Report amended ) Patient: Nabil Iglesias ?Study Date: ?02/27/2016 ? Accession #: ? [id number] : ? 1940 Referring: Clem Olvera Attending: [...] wire a Nick MENDOZAW 6F ([facility]) 6 mm-40 mm balloon dilation still could [...] Venograms were performed in the MOORE and ROMANSH projections and a suitable mid-lateral LV branch [...] fascia. The leads were connected to a TREAD TUBER MACHINE OPERATOR-D device. Device and Lead detail [...] Implanted device: Medtronic - Viva Quad XT TREAD TUBER MACHINE OPERATOR-D DF4 - Serial number: [id number] Explanted device: Medtronic - Viva XT TREAD TUBER MACHINE OPERATOR-D DF4 - Serial number: [id number]. LEAD PARAMETERS + + + + + [...] ? Medtronic ? Enpath ? information ?? 5184 ? 6955M ? Attain ? Epicardial ? Performa 4298 ? + + + + + + Serial number [id number] ? [id number] ?? [id number] ?? [id number] ? + + + + [...] Note Gulshan Drummond MD - 05/12/2016 *Cardiology* [address] [place] [address] Lead Revision (Report amended ) Patient: Nabil [...] therefore over an 0.35 glide wire a Flint OTW 6F ([facility]) 6 mm-40 mm balloon dilation still could [...] Venograms were performed in the MOORE and ROMANSH projections and a suitable mid-lateral LV branch [...] fascia. The leads were connected to a TREAD TUBER MACHINE OPERATOR-D device. Device and Lead detail [...] topical skin adhesive. IMPLANTED HARDWARE: Implanted device: [employer] - Viva Quad XT TREAD TUBER MACHINE OPERATOR-D DF4 - Serial number: [id number] Explanted device: Medtronic - Viva XT TREAD TUBER MACHINE OPERATOR-D DF4 - Serial number: [id number]. LEAD PARAMETERS + + + + + [...] + + + + + Serial number [id number] + + + + + + [...] situ documented in this encounter Care Teams Veneer Clipper Relationship Specialty Start Date End Date Clem Olvera MD [address] [place] [address] PCP - General 12/18/15 documented as of this encounter
--- OUTSIDE RECORDS SUMMARY | 2024-06-14 08:16 | XMS_ITS | Clinical Summary ---
Author Organization [facility] Address [address] [place] [address] Care Team Providers Care Director Staffing Name Role Phone Clem Olvera MD Primary Care Provider [phone] Allergies No known active allergies Medications atorvastatin [...] 2024 [place] [id number] Advance Directives For more information, please contact: [phone] * Full Code (Latest Code Status on File) Date Activated Date Inactivated Comments 02/27/2016 8:49 02/28/2016 15:40 Question Answer Comments Reason for decision includes: Full code consistent with overall plan of care Who participated in the discussion? Not Discusse d Care Teams Director Staffing Relationship Specialty Start Date End Date Clem Olvera MD [address] [place] [address] PCP - General 12/18/15
--- OUTSIDE RECORDS SUMMARY | 2024-06-14 08:16 | XMS_ITS | Encounter Summary ---
Author Organization [facility] Address [address] [place] [address] Care Team Providers Care Equine Breeder Name Role Phone Unavailable Primary Care Provider Unavailabl e Encounter Details Date Type Department Care Team (Late st Contact Info) Description 12/02/2012 Results Only [facility] Laboratory Services - [facility] ([facility] [address] [place] [address] [id number] Satinder Edwards MD [address] [place] [address] Social History Tobacco Use Types Packs/Day Years [...] Name: ? ABDIAZIZCHARMAINE ? Accession #: ? [id number] ? : ? 1940 (Age: 72) ??M [...] ORDERABLES Final Result [facility] [address] [place] [address] documented in this encounter Visit Diagnoses Not on filedocumented in this encounter
--- OUTSIDE RECORDS SUMMARY | 2024-06-14 08:17 | XMS_ITS | Encounter Summary ---
[place] [address] Care Team Providers Care Criminal Records Technician Name Role Phone Donny Cooper MD Primary Care Provider [phone] Encounter Details Date Type Department Care Team (Latest Contact Info) Description 10/05/2022 10:00 AM EDT - 10/05/2022 11:59 PM EDT Hospital Encounter Non-[place] [address] Discharge Disposition: Home Social History Tobacco Use [...] AM EDT Hospital Encounter Non-Invasive [place] [address] Arrived documented as of this encounter Procedures [...] on filedocumented in this encounter Care Teams Criminal Records Technician Relationship Specialty Start Date End Date Donny Cooper MD [address] [place] [address] PCP - General Family Medicine 02/25/19 documented as of this encounter
--- OUTSIDE RECORDS SUMMARY | 2024-06-14 08:17 | XMS_ITS | Encounter Summary ---
[place] [address] Care Team Providers Care Stave Bolt Equalizer Name Role Phone Donny Cooper MD Primary Care Provider [phone] Encounter Details Date Type Department Care Team (Latest Contact Info) Description 07/02/2023 10:00 AM EST - 07/02/2023 11:59 PM EST Hospital Encounter [place] [address] Discharge Disposition: Home Social History Tobacco Use [...] AM EDT Hospital Encounter [place] [address] Arrived documented as of this encounter Visit Diagnoses Not on filedocumented in this encounter Care Teams Stave Bolt Equalizer Relationship Specialty Start Date End Date Donny Cooper MD [address] [place] [address] PCP - General Family Medicine 02/25/19 documented as of this encounter
--- OUTSIDE RECORDS SUMMARY | 2024-06-14 08:17 | XMS_ITS | Encounter Summary ---
Author Organization [facility] [place] [address] Care Team Providers Care Dog Show Judge Name Role Phone Marques Martinez MD Primary Care Provider [phone] Reason for Visit * Reason Comments Follow Up Fracture PATELLA FX DOI 03/23 10 Encounter Details Date Type Department Care Team (Late st Contact Info) Description 10/09/2010 12:40 PM EDT Office [place] [address] Jairon Gustafson MD Aubin, Christopher J PA [facility] [place] [address] Quadriceps tendon rupture (Primary Dx) Discharge Disposition: [...] AM EDT Hospital Encounter Non-[place] [address] Arrived documented as of this encounter Visit Diagnoses Diagnosis Quadriceps tendon rupture- Primary Sprain and strain of other specified sites of knee and leg documented in this encounter Care Teams Dog Show Judge Relationship Specialty Start Date End Date Marques Martinez MD [address] [place] [address] PCP - General 04/01/10 04/08/11 documented as of this encounter
--- OUTSIDE RECORDS SUMMARY | 2024-06-14 08:17 | XMS_ITS | Encounter Summary ---
Author Organization [facility] [place] [address] Care Team Providers Care Overhead Distribution Engineer Name Role Phone Marques Martinez MD Primary Care Provider [phone] Encounter Details Date Type Department Care Team (Late st Contact Info) Description 10/09/2010 11:35 AM EDT - 10/09/2010 11:59 PM EDT Hospital Encounter XRay at [address] [place] [phone] Social History Tobacco Use Types Packs/Day Years [...] EDT Hospital Encounter Non-Invasive Cardiology Lab [facility] [place] [address] Arrived documented as of this encounter Visit Diagnoses Not on filedocumented in this encounter Care Teams Overhead Distribution Engineer Relationship Specialty Start Date End Date Maqrues Martinez MD [address] [place] [address] PCP - General 04/01/10 04/08/11 documented as of this encounter
--- OUTSIDE RECORDS SUMMARY | 2024-06-14 08:17 | XMS_ITS | Encounter Summary ---
[place] [address] Care Team Providers Care Professor Of Engineering Name Role Phone Marques Martinez MD Primary Care Provider Encounter Details Date Type Department Care Team (Late st Contact Info) Description 05/01/2010 3:10 PM EST Office [place] [phone] Jairon Fenton MD Discharge Disposition: Home Social [...] Encounter Non-Invasive [place] [address] Arrived documented as of this encounter Visit Diagnoses Not on filedocumented in this encounter Care Teams Professor Of Engineering Relationship Specialty Start Date End Date Marques Martinez MD [address] [place] [address] PCP - General 04/01/10 04/08/11 documented as of this encounter
--- OUTSIDE RECORDS SUMMARY | 2024-06-14 08:17 | XMS_ITS | Encounter Summary ---
[place] [address] Care Team Providers Care Bistro Server Name Role Phone Marques Martinez MD Primary Care Provider [phone] Encounter Details Date Type Department Care Team (Late st Contact Info) Description 10/03/2010 Abstract [place] [address] Marina Orosco, JADON Social History Tobacco Use [...] AM EDT Hospital Encounter Non-Invasive [place] [address] Arrived documented as of this encounter Visit Diagnoses Not on filedocumented in this encounter Care Teams Bistro Server Relationship Specialty Start Date End Date Marques Martinez MD [address] [place] [address] PCP - General 04/01/10 04/08/11 documented as of this encounter
--- OUTSIDE RECORDS SUMMARY | 2024-06-14 08:17 | XMS_ITS | Encounter Summary ---
[place] [address] Care Team Providers Care Clinical Data Programmer Name Role Phone Donny Cooper MD Primary Care Provider [phone] Encounter Details Date Type Department Care Team (Latest Contact Info) Description 07/07/2022 10:00 AM EST - 07/07/2022 11:59 PM EST Hospital Encounter Non-[place] [address] Discharge Disposition: Home Social History Tobacco Use [...] AM EDT Hospital Encounter Non-[place] [address] Arrived documented as of this [...] in this encounter Care Teams Clinical Data Programmer Relationship Specialty Start Date End Date Donny Cooper MD [address] [place] [address] PCP - General Family Medicine 02/25/19 documented as of this encounter
--- OUTSIDE RECORDS SUMMARY | 2024-06-14 08:17 | XMS_ITS | Encounter Summary ---
Author Organization [facility] [place] [address] Care Team Providers Care Manager Drug Safety Name Role Phone Clem Olvera MD Primary Care Provider [phone] Reason for Visit * Reason Comments Follow Up Fracture SP PATELLA FX DO12/12 DOI 03/30/10 Encounter Details Date Type Department Care Team (Late st Contact Info) Description 04/09/2011 1:30 PM EST Office [place] [address] Jairon Gustafson MD Aubin, Christopher J, PA [facility] [place] [address] Patella fracture (Primary Dx) Discharge Disposition: Home [...] AM EDT Hospital Encounter Non-[place] [address] Arrived documented as of this encounter Visit Diagnoses Diagnosis Patella fracture- Primary Closed fracture of patella documented in this encounter Care Teams Manager Drug Safety Relationship Specialty Start Date End Date Clem Olvera MD [address] [place] [address] PCP - General 04/09/11 02/24/19 documented as of this encounter
--- OUTSIDE RECORDS SUMMARY | 2024-06-14 08:17 | XMS_ITS | Encounter Summary ---
[place] [address] Care Team Providers Care Technical Analyst Name Role Phone Donny Cooper MD Primary Care Provider [phone] Encounter Details Date Type Department Care Team (Latest Contact Info) Description 04/08/2022 10:00 AM EST - 04/08/2022 11:59 PM [facility] Hospital Encounter [place] [address] Discharge Disposition: Home Social History Tobacco Use [...] AM EDT Hospital Encounter Non-[place] [address] Arrived documented as of this [...] filedocumented in this encounter Care Teams Technical Analyst Relationship Specialty Start Date End Date Donny Cooper MD [address] [place] [address] PCP - General Family Medicine 02/25/19 documented as of this encounter
--- OUTSIDE RECORDS SUMMARY | 2024-06-14 08:17 | XMS_ITS | Encounter Summary ---
[place] [address] Care Team Providers Care Non Acoustic Operator Name Role Phone Donny Cooper MD Primary Care Provider [phone] Encounter Details Date Type Department Care Team (Latest Contact Info) Description 11/04/2023 10:00 AM EDT - 11/04/2023 11:59 PM EDT Hospital Encounter Non-[place] [address] Discharge Disposition: Home Social History Tobacco Use [...] AM EDT Hospital Encounter Non-Invasive [place] [address] Arrived documented as of this encounter Procedures [...] on filedocumented in this encounter Care Teams Non Acoustic Operator Relationship Specialty Start Date End Date Donny Cooper MD [address] [place] [address] PCP - General Family Medicine 02/25/19 documented as of this encounter
--- OUTSIDE RECORDS SUMMARY | 2024-06-14 08:17 | XMS_ITS | Encounter Summary ---
[place] [address] Care Team Providers Care Data Warehouse Developer Name Role Phone Donny Cooper MD Primary Care Provider [phone] Encounter Details Date Type Department Care Team (Latest Contact Info) Description 01/03/2023 10:00 AM EDT - 01/03/2023 11:59 PM EDT Hospital Encounter Non-[place] [address] Discharge Disposition: Home Social History Tobacco Use [...] AM EDT Hospital Encounter Non-Invasive [place] [address] Arrived documented as of this encounter Procedures [...] filedocumented in this encounter Care Teams Data Warehouse Developer Relationship Specialty Start Date End Date Donny Cooper MD [address] [place] [address] PCP - General Family Medicine 02/25/19 documented as of this encounter
--- OUTSIDE RECORDS SUMMARY | 2024-06-14 08:17 | XMS_ITS | Encounter Summary ---
[place] [address] Care Team Providers Care Pattern Data Operator Name Role Phone Marques Martinez MD Primary Care Provider [phone] Encounter Details Date Type Department Care Team (Late st Contact Info) Description 06/12/2010 2:00 PM EST Procedure visit [place] [address] Social History Tobacco Use Types Packs/Day Years [...] AM EDT Hospital Encounter Non-Invasive [place] [address] Arrived documented as of this encounter Visit Diagnoses Not on filedocumented in this encounter Care Teams Pattern Data Operator Relationship Specialty Start Date End Date Marques Martinez MD [address] [place] [address] PCP - General 04/01/10 04/08/11 documented as of this encounter
--- OUTSIDE RECORDS SUMMARY | 2024-06-14 08:17 | XMS_ITS | Encounter Summary ---
Author Organization [facility] [place] [address] Care Team Providers Care Sales & Service Associate Name Role Phone Donny Cooper MD Primary Care Provider [phone] Encounter Details Date Type Department Care Team (Late st Contact Info) Description 03/18/2024 Notes Only Cardiology at [address] [address] Marina Caballero APRN [facility] [place] [address] Social History Tobacco Use Types Packs/Day Years [...] Hospital Encounter Non-Invasive [place] [address] Arrived documented as of this encounter Visit Diagnoses Not on filedocumented in this encounter Care Teams Sales & Service Associate Relationship Specialty Start Date End Date Donny Cooper MD [address] [place] [address] PCP - General Family Medicine 02/25/19 documented as of this encounter
--- OUTSIDE RECORDS SUMMARY | 2024-06-14 08:17 | XMS_ITS | Encounter Summary ---
[place] [address] Care Team Providers Care Shotblast Equipment Operator Name Role Phone Donny Cooper MD Primary Care Provider [phone] Encounter Details Date Type Department Care Team (Latest Contact Info) Description 05/02/2024 10:00 AM EST - 05/02/2024 11:59 PM [facility] Hospital Encounter Non-Invasive [place] [address] Discharge Disposition: Home Social History Tobacco Use [...] AM EDT Hospital Encounter Non-Invasive [place] [address] Arrived documented as of this [...] on filedocumented in this encounter Care Teams Shotblast Equipment Operator Relationship Specialty Start Date End Date Donny Cooper MD [address] [place] [address] PCP - General Family Medicine 02/25/19 documented as of this encounter
--- OUTSIDE RECORDS SUMMARY | 2024-06-14 08:17 | XMS_ITS | Encounter Summary ---
Author Organization [facility] [place] [address] Care Team Providers Care Building Insulation Installer Name Role Phone Marques Martinez MD Primary Care Provider [phone] Encounter Details Date Type Department Care Team (Late st Contact Info) Description 03/30/2010 [place] [address] Javier Barajas MD [facility] [address] EMERGENCY [place] [address] Social History Tobacco Use Types Packs/Day Years [...] AM EDT Hospital Encounter Non-[place] [address] Arrived documented as of this encounter Procedures [...] AM EST Jairon Fenton MD CHEMISTRY ORDERABLES [facility] * (ABNORMAL) CREATININE, SERUM (04/01/2010 6:09 [...] CHEMISTRY ORDERABLES Performing Organization Address [facility] de Phone Number CERNER CHRISTOSENNIUM * BUN (04/01/2010 6:09 AM EST) Blood Urea Nitrogen 12 10 - 20 mg/dL [facility] MILLENNIUM Blood specimen (specimen) 04/01/2010 6:09 AM EST 04/01/2010 6:09 AM EST Jairon Fenton MD CHEMISTRY ORDERABLES Performing Organization Address [facility] de Phone Number CERNER MILLENNIUM * [...] ORDERABLE S Performing Organization Address [facility] de Phone Number CERNER MILLENNIUM * [...] CHEMISTRY ORDERABLES Performing Organization Address [facility] Phone Number CERIVIS MILLENNIUM * ELECTROLYTE PANEL (03/30/2010 6:05 PM EST) Pathologist [facility] Sodium 135 135 - 145 [...] CHEMISTRY ORDERABLES Performing Organization Address [facility] Co de Phone Number CERIVIS MILLENNIUM * CREATININE, SERUM (03/30/2010 6:05 PM EST) Creatinine 0.87 0.80 - 1.50 mg/dL [facility] Est Glomerular Filtration Rate >60 >=60 [facility] Comment: The National Kidney Disease [...] 18 10 - 20 mg/dL [facility] Blood specimen (specimen) 03/30/2010 6:05 PM EST 03/30/2010 6:13 PM EST Jairon Fenton MD CHEMISTRY ORDERABLES Performing Organization Address [facility] de Phone Number DEJA SEGOVIA * APTT (03/30/2010 6:05 PM EST) Partial Thromboplastin Time 26 25 - 37 sec [facility] Comment: Recommended therapeutic PTT range for full dose unfractionated heparin is 80-114 seconds. Blood specimen (specimen) 03/30/2010 6:05 PM EST 03/30/2010 6:14 PM EST Jairon Fenton MD HEMATOLOGY ORDERABLE S Performing Organization Address [facility] Phone Number DEJA SEGOVIA * PROTIME-INR (03/30/2010 6:05 PM EST) Prothrombin Time 14.2 12.3 - 14.7 sec [facility] Comment: [facility] Transfusion Committee Guidelines: INR less than 2.0, PTT less than OR equal to 43.5 seconds, or Fibrinogen greater than or equal to 100 mg/dl indicate adequate procoagulant activity for hemostasis in patients without underlying bleeding disorders. International Normalization Ratio 1.1 0.9 - 1.1 [facility] Blood specimen (specimen) 03/30/2010 6:05 PM EST 03/30/2010 6:14 PM EST Jairon Fenton MD HEMATOLOGY ORDERABLE S Performing Organization Address [facility] de Phone Number DEJA SEGOVIA * [...] 44.2 35.0 - 46.0 fL [facility] RDW coefficient of variation 13.1 10.9 - 14.4 % [facility] Mean Platelet Volume 10.6 9.0 - 12.0 fL [facility] Blood specimen (specimen) 03/30/2010 6:05 PM EST 03/30/2010 6:13 PM EST Jairon Fenton MD HEMATOLOGY ORDERABLE S Performing Organization Address [facility] Co de Phone Number [facility] * REFLEX LAB-ANTIBODY SCREEN (03/30/2010 3:17 PM EST) [facility] Ab Screen Interp Negative [facility] Expires at [id number] on: [id number] [facility] Blood specimen (specimen) 03/30/2010 3:17 PM EST 03/30/2010 3:17 PM EST Javier Barajas MD BLOOD BANK LAB ORDER PRECIOUS Performing Organization Address [facility] Co de Phone Number [facility] * REFLEX LAB-ABO/RH (03/30/2010 3:17 PM EST) [facility] ABORH Type A Pos [facility] Blood specimen (specimen) 03/30/2010 3:17 PM EST 03/30/2010 3:17 PM EST Javier Barajas MD BLOOD BANK LAB ORDER PRECIOUS Performing Organization Address [facility] Co de Phone Number [facility] * ELECTROLYTE PANEL (03/30/2010 2:50 PM EST) [facility] Sodium 135 135 - 145 mmol/L [facility] Potassium 4.3 3.5 - 5.0 mmol/L [facility] Comment: Please note: ??Patients with [...] Barajas MD CHEMISTRY ORDERABLES Performing Organization Address [facility] Phone Number [facility] * BUN (03/30/2010 2:50 PM EST) Blood Urea Nitrogen 18 10 - 20 mg/dL [facility] Blood specimen (specimen) 03/30/2010 2:50 PM EST 03/30/2010 3:05 PM EST Javier Barajas MD CHEMISTRY ORDERABLES Performing Organization Address [facility] Phone Number [facility] * GLUCOSE, RANDOM (03/30/2010 2:50 PM EST) Glucose 95 <=199 mg/dL [facility] Comment:Diabetes: >=200 mg/d L plus symptoms Blood specimen (specimen) 03/30/2010 2:50 PM EST 03/30/2010 3:05 PM EST Javier Barajas MD CHEMISTRY ORDERABLES Performing Organization Address [facility] Phone Number [facility] * APTT (03/30/2010 2:50 PM EST) Partial Thromboplastin Time 25 25 - 37 sec [facility] Comment: Recommended therapeutic PTT range for full dose unfractionated heparin is 80-114 seconds. Blood specimen (specimen) 03/30/2010 2:50 PM EST 03/30/2010 3:06 PM EST Javier Barajas MD HEMATOLOGY ORDERABLE S Performing Organization Address [facility] Phone Number [facility] * PROTIME-INR (03/30/2010 2:50 PM EST) Prothrombin Time 14.1 12.3 - 14.7 sec [facility] Comment: [facility] Transfusion Committee Guidelines: INR less than [...] filedocumented in this encounter Care Teams Building Insulation Installer Relationship Specialty Start Date End Date Marques Martinez MD [address] [place] [address] PCP - General 04/01/10 04/08/11 documented as of this encounter
--- OUTSIDE RECORDS SUMMARY | 2024-06-14 08:17 | XMS_ITS | Encounter Summary ---
[place] [address] Care Team Providers Care Parachute Taper Name Role Phone Donny Cooper MD Primary Care Provider [phone] Encounter Details Date Type Department Care Team (Latest Contact Info) Description 04/03/2023 10:00 AM EST - 04/03/2023 11:59 PM [facility] Hospital Encounter [place] [address] Discharge Disposition: Home Social History Tobacco Use [...] AM EDT Hospital Encounter [place] [address] Arrived documented as of this encounter Procedures Procedure Name Priority Date/Time Associated Diagnosis Comments PRO ICD INTERROGATION REMOTE UP TO 90 DAYS Routine 02/03/2023 4:23 AM EDT documented in this encounter Results * Cardiac Device Check - Remote (02/03/2023 4:23 AM EDT) Anatomical Region Laterality Modality Other 02/03/2023 4:23 AM EDT Braxton Olivear MD IMPLANTABLE CARDIAC DEVICE documented in this encounter Visit Diagnoses Not on filedocumented in this encounter Care Teams Parachute Taper Relationship Specialty Start Date End Date Donny Cooper MD [address] [place] [address] PCP - General Family Medicine 02/25/19 documented as of this encounter
--- OUTSIDE RECORDS SUMMARY | 2024-06-14 08:17 | XMS_ITS | Encounter Summary ---
Author Organization [facility] [place] [place] [address] Care Team Providers Care Whittling Room Operator Name Role Phone Donny Cooper MD Primary Care Provider [phone] Encounter Details Date Type Department Care Team (Latest Contact Info) Description 10/03/2022 10:00 AM EDT Office Visit Cardiology at [address] [address] Eleno No, [place] [facility] [place] [address] Cardiomyopathy, primary; Presence of cardiac resynchronization therapy defibrillator (SHAREPOINT NET DEVELOPER-D); Diaphragmatic stimulation by cardiac pacemaker, initial encounter [...] original note were not included. Cardiac Device SHAREPOINT NET DEVELOPER-D Programming Evaluation Nabil Iglesias [id number] 10/03/2022 History: Mr. 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 [...] AM EDT Hospital Encounter [place] [address] Arrived documented as of this encounter Procedures Procedure Name Priority Date/Time Associated Diagnosis Comments EKG 12-LEAD Routine 10/03/2022 11:00 AM EDT Cardiomyopathy, primary Presence of cardiac resynchronization therapy defibrillator (SHAREPOINT NET DEVELOPER-D) Diaphragmatic stimulation by cardiac pacemaker, initial encounter documented in this encounter Results * EKG 12 Lead (10/03/2022 11:00 AM EDT) Ventricular rate 74 BPM MUSE SYSTEM Atrial Rate 74 BPM MUSE SYSTEM P-R Interval 154 ms MUSE SYSTEM QRS Duration 162 ms MUSE SYSTEM Q-T Interval 470 ms MUSE SYSTEM QTC Calculated (Bezet) 521 ms MUSE SYSTEM Calculated P [place] 30 degrees MUSE SYSTEM Calculated R [place] -98 degrees MUSE SYSTEM Calculated T [place] 41 degrees MUSE SYSTEM INTERPRETATION Atrial-sense d [...] cardiomyopathies Presence of cardiac resynchronization therapy defibrillator (SHAREPOINT NET DEVELOPER-D) Diaphragmatic stimulation by cardiac pacemaker, initial encounter documented in this encounter Care Teams Whittling Room Operator Relationship Specialty Start Date End Date Donny Cooper MD [address] [place] [address] PCP - General Family Medicine 02/25/19 documented as of this encounter
--- OUTSIDE RECORDS SUMMARY | 2024-06-14 08:17 | XMS_ITS | Encounter Summary ---
[place] [address] Care Team Providers Care Master [place] Name Role Phone Marques Martinez MD Primary Care Provider [phone] Encounter Details Date Type Department Care Team (Late st Contact Info) Description 09/11/2010 Orders Only [place] [address] Jairon Fenton MD Fracture of patella, left, [...] EDT Hospital Encounter Non-Invasive [place] [address] Arrived documented as of this encounter Visit Diagnoses Diagnosis Fracture of patella, left, closed- Primary Closed fracture of patella documented in this encounter Care Teams Master [place] Relationship Specialty Start Date End Date Marques Martinez MD [address] [place] [address] PCP - General 04/01/10 04/08/11 documented as of this encounter
--- OUTSIDE RECORDS SUMMARY | 2024-06-14 08:17 | XMS_ITS | Encounter Summary ---
[place] [address] Care Team Providers Care Senior Technical Support Analyst Name Role Phone Donny Cooper MD Primary Care Provider [phone] Encounter Details Date Type Department Care Team (Latest Contact Info) Description 02/02/2024 10:00 AM EDT - 02/02/2024 11:59 PM EDT Hospital Encounter Non-[place] [address] Discharge Disposition: Home Social History Tobacco Use [...] AM EDT Hospital Encounter Non-[place] [address] Arrived documented as of this encounter Procedures [...] filedocumented in this encounter Care Teams Senior Technical Support Analyst Relationship Specialty Start Date End Date Donny Cooper MD [address] [place] [address] PCP - General Family Medicine 02/25/19 documented as of this encounter
--- OUTSIDE RECORDS SUMMARY | 2024-06-14 08:17 | XMS_ITS | Encounter Summary ---
Author Organization [facility] [place] [address] Care Team Providers Care Procurement Internship Name Role Phone Donny Cooper MD Primary Care Provider [phone] Encounter Details Date Type Department Care Team (Latest Contact Info) Description 06/13/2020 12:35 PM EST - 06/13/2020 11:59 PM EST Hospital Encounter Non-[place] [address] [facility] [address] Cardiomyopathy, primary Discharge Disposition: Home Social History [...] AM EDT Hospital Encounter Non-[place] [address] Arrived documented as of this encounter Procedures Procedure Name Priority Date/Time Associated Diagnosis Comments ICD INTERROGATION 3 MONTH Routine 06/13/2020 12:36 PM EST Cardiomyopathy, primary documented in this encounter Results * ICD INTERROGATION 3 MONTH (06/13/2020 12:36 PM EST) Anatomical Region Laterality Modality Other Narrative 06/14/2020 10:38 AM EST Cardiac Device Remote Monitoring Report Summary Medtronic [employer]ibaba 06/14/20 Device: REST ROOM MATRON-D Model: VIVA QUAD Battery: 2.96 v, estimated longevity 3 years, 11 months Pacing percentage: 78% ventricular paced Events: The presenting rhythm is atrial paced with biventricular pacing and frequent ventricular premature contractions No significant arrhythmias Impression Normal device function; suboptimal REST ROOM MATRON pacing likely secondary to frequent PVCs. Should consider in clinic follow-up for further evaluation Follow Up As per schedule - in-clinic and remote ALBER SEALS MD Alber Seals MD IMPLANTABLE CARDIAC DEVICE documented in this encounter Visit Diagnoses Diagnosis Cardiomyopathy, primary Other primary cardiomyopathies documented in this encounter Care Teams Procurement Internship Relationship Specialty Start Date End Date Donny Cooper MD [address] [place] [address] PCP - General Family Medicine 02/25/19 documented as of this encounter
--- OUTSIDE RECORDS SUMMARY | 2024-06-14 08:17 | XMS_ITS | Encounter Summary ---
[place] [address] Care Team Providers Care Submarine Cable Equipment Technician Name Role Phone Marques Martinez MD Primary Care Provider [phone] Encounter Details Date Type Department Care Team (Late st Contact Info) Description 06/12/2010 2:10 PM EST Office [place] [address] Jairon Fenton MD Discharge Disposition: Home Social [...] AM EDT Hospital Encounter Non-Invasive [place] [address] Arrived documented as of this encounter Visit Diagnoses Not on filedocumented in this encounter Care Teams Submarine Cable Equipment Technician Relationship Specialty Start Date End Date Marques Martinez MD [address] [place] [address] PCP - General 04/01/10 04/08/11 documented as of this encounter
--- OUTSIDE RECORDS SUMMARY | 2024-06-14 08:17 | XMS_ITS | Encounter Summary ---
[place] [address] Care Team Providers Care Electrical Superintendent Name Role Phone Donny Cooper MD Primary Care Provider [phone] Encounter Details Date Type Department Care Team (Late st Contact Info) Description 03/17/2019 Telephone Cardiology at [address] [address] Sheri Quinn LNA Social History [...] 11:46 AM EST Medication list reviewed with [facility] list. Please review with patient at next clinic visit. documented in this encounter Plan of Treatment Upcoming Encounters Date Type Department Care Team (Late st Contact Info) Description 07/31/2024 10:00 AM EDT Hospital Encounter Non-Invasive [place] [address] Arrived documented as of this encounter Visit Diagnoses Not on filedocumented in this encounter Care Teams Electrical Superintendent Relationship Specialty Start Date End Date Donny Cooper MD [address] [place] [address] PCP - General Family Medicine 02/25/19 documented as of this encounter
--- OUTSIDE RECORDS SUMMARY | 2024-06-14 08:17 | XMS_ITS | Encounter Summary ---
[place] [address] Care Team Providers Care Safety Companion Name Role Phone Donny Cooper MD Primary Care Provider [phone] Encounter Details Date Type Department Care Team (Late st Contact Info) Description 12/28/2023 Notes Only Cardiology at [address] [address] Kanika Shell Social History Tobacco Use Types [...] AM EDT Hospital Encounter Non-[place] [address] Arrived documented as of this encounter Visit Diagnoses Not on filedocumented in this encounter Care Teams Safety Companion Relationship Specialty Start Date End Date Donny Cooper MD [address] [place] [address] [address] [facility] [address] [place] [address] PCP - General Family Medicine 02/25/19 documented as of this encounter
--- OUTSIDE RECORDS SUMMARY | 2024-06-14 08:17 | XMS_ITS | Encounter Summary ---
Author Organization [facility] [place] [address] Care Team Providers Care Beader Name Role Phone Donny Cooper MD Primary Care Provider [phone] Encounter Details Date Type Department Care Team (Latest Contact Info) Description 06/25/2021 3:23 PM EST - 06/25/2021 11:59 PM EST Hospital Encounter Non-Invasive [place] [address] Alber Seals MD [facility] [place] [address] Cardiomyopathy, primary Discharge Disposition: Home Social History [...] AM EDT Hospital Encounter Non-Invasive [place] [address] Arrived documented as of this encounter Procedures Procedure Name Priority Date/Time Associated Diagnosis Comments ICD INTERROGATION 3 MONTH Routine 06/25/2021 3:24 PM EST Cardiomyopathy, primary documented in this encounter Results * ICD INTERROGATION 3 MONTH (06/25/2021 3:24 PM EST) Anatomical Region Laterality Modality Other Narrative 06/25/2021 3:42 PM EST Cardiac Device Remote Monitoring Report Summary Medtronic Carelink Device: 3D SPECIALIST-D Model: VIVA QUAD Battery: 2.95 v, estimated longevity 2 years 6 months Pacing percentage: 90% 3D SPECIALIST paced Events: Presenting rhythm: atrial paced/biventricular paced Frequent PVC's Impression Normal device function Follow Up As per schedule - in-clinic and remote ALBER SEALS MD 06/25/21 Alber Seals MD IMPLANTABLE CARDIAC DEVICE documented in this encounter Visit Diagnoses Diagnosis Cardiomyopathy, primary Other primary cardiomyopathies documented in this encounter Care Teams Beader Relationship Specialty Start Date End Date Donny Cooper MD [address] [place] [address] PCP - General Family Medicine 02/25/19 documented as of this encounter
--- OUTSIDE RECORDS SUMMARY | 2024-06-14 08:17 | XMS_ITS | Encounter Summary ---
[place] [address] Care Team Providers Care Roller Gold Leaf Name Role Phone Donny Cooper MD Primary Care Provider [phone] Encounter Details Date Type Department Care Team (Late st Contact Info) Description 06/14/2020 Telephone Cardiology at [address] [address] Nhung Briggs Social History Tobacco Use Types [...] He would like to be seen at [facility]. Email sent to Brittaney Hernandez at [facility] asking her to reach out to pt to set up the appt with either Dr. Arguelles or LANG Albert. Nhung Allen Electrophysiology Scheduling [id number] option 2 documented in this encounter Plan of Treatment Upcoming Encounters Date Type Department Care Team (Late st Contact Info) Description 07/31/2024 10:00 AM EDT Hospital Encounter Non-[place] [address] Arrived documented as of this encounter Visit Diagnoses Not on filedocumented in this encounter Care Teams Roller Gold Leaf Relationship Specialty Start Date End Date Donny Cooper MD [address] [place] [address] PCP - General Family Medicine 02/25/19 documented as of this encounter
--- OUTSIDE RECORDS SUMMARY | 2024-06-14 08:17 | XMS_ITS | Encounter Summary ---
[place] [address] Care Team Providers Care Hydrometallurgical Engineer Name Role Phone Donny Cooper MD Primary Care Provider [phone] Encounter Details Date Type Department Care Team (Late st Contact Info) Description 01/05/2024 Telephone Cardiology at [address] [address] Kanika Shell Social History Tobacco [...] AM EDT Hospital Encounter Non-Invasive [place] [address] Arrived documented as of this encounter Visit Diagnoses Not on filedocumented in this encounter Care Teams Hydrometallurgical Engineer Relationship Specialty Start Date End Date Donny Cooper MD [address] [place] [address] PCP - General Family Medicine 02/25/19 documented as of this encounter
--- OUTSIDE RECORDS SUMMARY | 2024-06-14 08:17 | XMS_ITS | Clinical Summary ---
Author Organization [facility] [place] [address] Care Team Providers Care Director Peoplesoft Name Role Phone Donny Cooper MD Primary Care Provider [phone] Allergies No known active allergies Medications Medication [...] Team Description 06/01/2024 Notes Only Cardiology at [address] [address] Marina Caballero APRN 05/02/2024 10:00 AM EST - 05/02/2024 11:59 PM EST Hospital Encounter [place] [address] Discharge Disposition: Home 03/18/2024 Notes Only Cardiology at [address] [address] Marina Caballero, IT CONSULTANT from Last 3 Months Immunizations Name Administration [...] AM EDT Hospital Encounter [place] [address] Arrived Health Maintenance Due Date Last Done [...] 03/06/2006, 02/24/2005 Medical Devices Implanted Type Area Service Order Dispatcher Chief Device Identifier Shelf Expiration Date Model / Serial / Lot Mdt : [id number] : [id number] Implanted: (Quantity not on file) Cardiac Resynchronization Therapy - Defibrillator Chest Medtronic - [id number] / [id number] / Care Teams Director Peoplesoft Relationship Specialty Start Date End Date Donny Cooper MD [address] [place], [place] [id number] PCP - General Family Medicine 02/25/19
--- OUTSIDE RECORDS SUMMARY | 2024-06-14 08:17 | XMS_ITS | Encounter Summary ---
[place] [address] Care Team Providers Care Weapons System Instrument Mechanic Name Role Phone Marques Martinez MD Primary Care Provider [phone] Encounter Details Date Type Department Care Team (Late st Contact Info) Description 05/01/2010 2:40 PM EST Procedure visit [place] [address] Social History Tobacco Use Types Packs/Day Years [...] AM EDT Hospital Encounter [place] [address] Arrived documented as of this encounter Visit Diagnoses Not on filedocumented in this encounter Care Teams Weapons System Instrument Mechanic Relationship Specialty Start Date End Date Marques Martinez MD [address] [place] [address] PCP - General 04/01/10 04/08/11 documented as of this encounter
--- OUTSIDE RECORDS SUMMARY | 2024-06-14 08:17 | XMS_ITS | Encounter Summary ---
Author Organization Formerly [facility] [place] [place] [address] Care Team Providers Care Gray Tender Name Role Phone Donny Cooper MD Primary Care Provider [phone] Encounter Details Date Type Department Care Team (Late st Contact Info) Description 07/26/2019 Notes Only Cardiology at [address] [address] Maged Arguelles MD [facility] [place] [address] Social History Tobacco Use Types Packs/Day Years [...] his Medtronic biventricular ICD is reviewed. Suboptimal SILVER HOLLOWARE ASSEMBLER at 84%. Normal device function. Awaiting Holter to assess PVC burden. Maged Arguelles MD [facility] 07/26/2019 9:04 AM documented in this encounter Plan of Treatment Upcoming Encounters Date Type Department Care Team (Late st Contact Info) Description 07/31/2024 10:00 AM EDT Hospital Encounter Non-Invasive [place] [address] Arrived documented as of this encounter Visit Diagnoses Not on filedocumented in this encounter Care Teams Gray Tender Relationship Specialty Start Date End Date Donny Cooper MD [address] [place] [address] PCP - General Family Medicine 02/25/19 documented as of this encounter
--- OUTSIDE RECORDS SUMMARY | 2024-06-14 08:17 | XMS_ITS | Encounter Summary ---
[place] [address] Care Team Providers Care Archivist Economic History Name Role Phone Donny Cooper MD Primary Care Provider [phone] Encounter Details Date Type Department Care Team (Latest Contact Info) Description 08/06/2023 10:00 AM EDT - 08/06/2023 11:59 PM EDT Hospital Encounter [place] [address] Discharge Disposition: Home Social History Tobacco Use [...] AM EDT Hospital Encounter Non[place] [address] Arrived documented as of this encounter Visit Diagnoses Not on filedocumented in this encounter Care Teams Archivist Economic History Relationship Specialty Start Date End Date Donny Cooper MD [address] [place] [address] PCP - General Family Medicine 02/25/19 documented as of this encounter
--- OUTSIDE RECORDS SUMMARY | 2024-06-14 08:17 | XMS_ITS | Encounter Summary ---
[place] [address] Care Team Providers Care Glass Fitter Name Role Phone Donny Cooper MD Primary Care Provider [phone] Encounter Details Date Type Department Care Team [...] AM EDT Hospital Encounter Non-[place]vasive [place] [address] Arrived documented as of this encounter Visit Diagnoses Not on filedocumented in this encounter Care Teams Glass Fitter Relationship Specialty Start Date End Date Donny Cooper MD [address] [place] [address] PCP - General Family Medicine 02/25/19 documented as of this encounter
--- OUTSIDE RECORDS SUMMARY | 2024-06-14 08:17 | XMS_ITS | Encounter Summary ---
Author Organization Formerly [facility] [place] [address] Care Team Providers Care Formulation Chemist Name Role Phone Donny Cooper MD Primary Care Provider [phone] Encounter Details Date Type Department Care Team (Late st Contact Info) Description 06/01/2024 Notes Only Cardiology at [address] [address] Marina Caballero [address]N [facility] [place] [address] Social History Tobacco Use Types Packs/Day Years [...] Please see his outpatient clinic note at [facility] 09/02/23 for details. Marina Caballero APRN 06/01/24 documented in this encounter Plan of Treatment Upcoming Encounters Date Type Department Care Team (Late st Contact Info) Description 07/31/2024 10:00 AM EDT Hospital Encounter Non-Invasive Cardiology [place] [address] Arrived documented as of this encounter Visit Diagnoses Not on filedocumented in this encounter Care Teams Formulation Chemist Relationship Specialty Start Date End Date Donny Cooper MD [address] [place] [address] PCP - General Family Medicine 02/25/19 documented as of this encounter
--- OUTSIDE RECORDS SUMMARY | 2024-06-14 08:17 | XMS_ITS | Encounter Summary ---
Author Organization [facility] [address] Care Team Providers Care Gold Wheel Blocker And Polisher Name Role Phone Donny Cooper MD Primary Care Provider [phone] Encounter Details Date Type Department Care Team (Latest Contact Info) Description 12/18/2020 11:57 AM EDT - 12/18/2020 11:59 PM EDT Hospital Encounter [place] [address] Maged Arguelles MD [facility] [place] [address] Cardiomyopathy, primary Discharge Disposition: Home Social History [...] AM EDT Hospital Encounter Non[place] [address] Arrived documented as of this encounter Procedures Procedure Name Priority Date/Time Associated Diagnosis Comments ICD INTERROGATION 3 MONTH Routine 12/18/2020 12:00 PM EDT Cardiomyopathy, primary documented in this encounter Results * ICD INTERROGATION 3 MONTH (12/18/2020 12:00 PM EDT) Anatomical Region Laterality Modality Other Narrative 12/23/2020 11:08 PM EDT MDT SPINDRAW OPERATOR-D remote reviewed. Normal device function. Inadequate SPINDRAW OPERATOR at 80%. Maged Arguelles MD [facility] 12/23/2020 11:06 PM Maged Arguelles MD IMPLANTABLE CARDIAC DEVICE documented in this encounter Visit Diagnoses Diagnosis Cardiomyopathy, primary Other primary cardiomyopathies documented in this encounter Care Teams Gold Wheel Blocker And Polisher Relationship Specialty Start Date End Date Donny Cooper MD [address] [facility] [address] [place] [address] PCP - General Family Medicine 02/25/19 documented as of this encounter
[2024-06-16 08:00] VITALS: BP 122/62; PULSE 72
--- OUTSIDE RECORDS SUMMARY | 2024-06-16 08:09 | XMS_ITS | Encounter Summary ---
Author Organization [facility] Address [address] [place] [address] Care Team Providers Care Cfo Name Role Phone Unavailable Primary Care Provider Unavailabl e Encounter Details Date Type Department Care Team (Late st Contact Info) Description 12/02/2012 Results Only [facility] Laboratory Services - [facility] [place] [address] [place] [id number] Satinder Edwards MD [address] [place] [address] Social History Tobacco Use Types Packs/Day Years [...] Name: ? ABDIAZIZCHARMAINE ? Accession #: ? [id number] ? : ? 1940 (Age: 72) ??M ? Collect Date: ? 12/02/2012 ? Location: ? [facility] ? Receive Date: ? 12/02/2012 ? Provider: ASTINDER EDWARDS MD Copy to: WILLIAM PARRISH MD [...] ORDERABLES Final Result [facility] [address] [place] [address] documented in this encounter Visit Diagnoses Not on filedocumented in this encounter
--- OUTSIDE RECORDS SUMMARY | 2024-06-16 08:09 | XMS_ITS | Encounter Summary ---
Author Organization [facility] Address [address] [place] [address] Care Team Providers Care Front Facer Name Role Phone Clem Olvera MD Primary Care Provider [phone] Encounter Details Date Type Department Care Team (Latest Contact Info) Description 12/20/2015 10:52 EDT - 12/20/2015 23:52 EDT Hospital Encounter [facility] [address] [place] [address] Navdeep Hurd MD [address] [place] [address] [address] Discharge Disposition: Home or Self [...] no need to beNPO or have a sweeper driver. However, his will be accompanying him. They are driving someone to the airport [place] 1000 and then will come here and check-in around 1145. He agrees to have a shower. documented in this encounter Procedure Notes * Fantasma Dhillon MD - 12/20/2015 1356 EDT IR Brief Procedure Note Attending: Leo Thermal Cutting Machine Operator: Alejo Pre-op Dx: Arrhythmia, need [...] 12/19 documented in this encounter Care Teams Front Facer Relationship Specialty Start Date End Date Clem Olvera MD [address] [place] [address] PCP - General 12/18/15 documented as of this encounter
--- OUTSIDE RECORDS SUMMARY | 2024-06-16 08:09 | XMS_ITS | Encounter Summary ---
Author Organization [facility] Address [address] [place] [address] Care Team Providers Care Supervisor Instrument Maintenance Name Role Phone Clem Olvera MD Primary Care Provider Encounter Details Date Type Department Care Team (Late st Contact Info) Description 03/16/2019 Abstract [facility] Cardiology Clinic [address] [place] [address] Ronal Avelar RN AV block, 2nd degree [...] Laterality Modality Device Narrative 03/24/2019 10:30 EST [facility] Cardiology Device Visit Nurse First Assist: Foreruntronic Device Type: PULP COOKER-D Service: Remote ? 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
--- OUTSIDE RECORDS SUMMARY | 2024-06-16 08:09 | XMS_ITS | Encounter Summary ---
Author Organization [facility] Address [address] [place] [address] Care Team Providers Care Mh Teacher Name Role Phone Clem Olvera MD Primary Care Provider [phone] Reason for Visit * Reason Onset Date Comments Appointment Related 10/23/2016 Check for fo llow up of pacer Encounter Details Date Type Department Care Team ([facility] st Contact Info) Description 10/23/2016 Telephone [facility] Cardiology - [address] [place] [address] Pacemaker, Pace Appointment Related (Check [...] Telephone Encounter - Pushpa Shay - 10/23/2016 0987 EDT Spoke with Mrs. Iglesias who stated that Nabil had his pacemaker checked in [place] where they are for the winter. They have some back and are being followed by Dr. Hurd at [facility]. documented in this encounter Plan of Treatment Not on file documented as of this encounter Visit Diagnoses Not on filedocumented in this encounter Care Teams Mh Teacher Relationship Specialty Start Date End Date Clem Olvera MD [address] [place] [address] PCP - General 12/18/15 documented as of this encounter
--- OUTSIDE RECORDS SUMMARY | 2024-06-16 08:09 | XMS_ITS | Encounter Summary ---
Author Organization [facility] Address [address] [place] [address] Care Team Providers Care Fire Lookout Name Role Phone Unavailable Primary Care Provider Unavailabl e Encounter Details Date Type Department Care Team (Late st Contact Info) Description 05/06/2001 Results Only [facility] [address] [place] [address] Hernandez Partida MD [address] [place] [phone] Social History Tobacco Use Types Packs/Day Years [...] Caal)/[facility] End of Report [facility] 05/06/2001 05/07/2001 9:2 5 EST us Hernandez Partida MD PATHOLOGY ORDERABLES Final Res ult [facility] [address] [place] [address] documented in this encounter Visit Diagnoses Not on filedocumented in this encounter
--- OUTSIDE RECORDS SUMMARY | 2024-06-16 08:09 | XMS_ITS | Encounter Summary ---
Author Organization [facility] Address [address] [place] [address] Care Team Providers Care Weather Observer Name Role Phone Clem Olvera MD Primary Care Provider [phone] Reason for Visit * Reason Onset Date Comments Other 04/04/2019 Transfer request for Pacer Care at [facility] Encounter Details Date Type Department Care Team (Late st Contact Info) Description 04/04/2019 Telephone [facility] [place] [place] [facility] [address] [place] [address] Giselle Hill, POCKET FLAP CREASING MACHINE OPERATOR Other (Transfer request for Pacer Care at [facility]) Social History Tobacco Use Types [...] 04/04/2019 1503 EST I went into the [employer] Website and released pt to [facility] Pacer Clinic as requested. * Telephone Encounter - Suze Reynoso - 04/04/2019 1342 EST PT WILL BE HAVING HIS PACER CARE DONE AT [facility], PLEASE RELEASE HIS REMOTE MONITORING SO THAT THEY CAN PICK IT UP documented in this encounter Plan of Treatment Not on file documented as of this encounter Visit Diagnoses Not on filedocumented in this encounter Care Teams Weather Observer Relationship Specialty Start Date End Date Clem Olvera MD [address] [place] [address] PCP - General 12/18/15 documented as of this encounter
--- OUTSIDE RECORDS SUMMARY | 2024-06-16 08:09 | XMS_ITS | Clinical Summary ---
Author Organization [facility] Address [address] [place] [address] Care Team Providers Care Internet Webmaster Name Role Phone Clem Olvera MD Primary Care Provider [phone] Allergies No known active allergies Medications atorvastatin [...] 2024 [place] [id number] Advance Directives For more information, please contact: [phone] * Full Code (Latest Code Status on File) Date Activated Date Inactivated Comments 02/27/2016 8:49 02/28/2016 15:40 Question Answer Comments Reason for decision includes: Full code consistent with overall plan of care Who participated in the discussion? Not Discusse d Care Teams Internet Webmaster Relationship Specialty Start Date End Date Clem Olvera MD [address] [place] [address] PCP - General 12/18/15
--- OUTSIDE RECORDS SUMMARY | 2024-06-16 08:09 | XMS_ITS | Referral Summary ---
Author Organization [facility] Address [address] [place] [address] Care Team Providers Care Advisor Consultant Name Role Phone Clem Olvera MD Primary Care Provider [phone] Allergies No known active allergies Medications atorvastatin [...] Advance Directives For more information, please contact: [phone] * Full Code (Latest Code Status on File) Date Activated Date Inactivated Comments 02/27/2016 8:49 02/28/2016 15:40 Question Answer Comments Reason for decision includes: Full code consistent with overall plan of care Who participated in the discussion? Not Discusse d Care Teams Advisor Consultant Relationship Specialty Start Date End Date Clem Olvera MD [address] [place] [address] PCP - General 12/18/15
--- OUTSIDE RECORDS SUMMARY | 2024-06-16 08:09 | XMS_ITS | Encounter Summary ---
Author Organization [facility] Address [address] [place] [address] Care Team Providers Care Coordinate Measuring Machine Technician Name Role Phone Clem Olvera MD Primary Care Provider [phone] Reason for Referral * (Routine) - Closed [...] [facility] at or , extension [phone]. For any scheduling of appointments, please call [phone] or , extension [phone]. . * (Routine) - Closed Specialty Diagnoses [...] Expiration Date V isits Requested Visits Authorized [id number] Closed Specialty Services Required 02/27/2016 1 1 [...] at [facility] in [place] -Clinics are also held in [facility], [place], [place] and [facility]. If you live in those areas, we will make arrangements for follow-up appointments in one of those clinics.. Encounter Details Date Type Department Care Team (Late st Contact Info) Description 02/27/2016 6:30 EDT - 02/28/2016 13:39 EDT Hospital Encounter [facility] Cardiac/Telemetry Unit [address] [place] [address] Gulshan Drummond MD PhD 111 [facility], Level 1 [place] [phone] Gulshan Montoya Sa, MD 62 [facility] [address] [place] [phone] AICD lead malfunction, subsequent encounter; ICD [...] EF of 20-25% status post silent inferior [place] in the early . 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 He had heart failure symptoms that started around May 2013, when he was in [place], [place]. This triggered major cardiac workup including [...] then underwent a device upgrade to a EDITING CLERK-D device with biventricular pacing for his EF [...] cardiology outreach clinic at [facility] in [place]. Continued high pacing threshold on the epicardial [...] and plans to follow up with his Trades Helper in [place] in 6-8 weeks for which [...] HGBA1C Discharge Follow Up Appointments Scheduled with [facility] Appointments Outside of [facility] We Will Schedule Studies We Will Schedule Appointments We Recommend but have not been Scheduled Beatrice De La Garza NP 02/27/2016 10:59 Cosigned by Gulshan Montoya Sa, MD at 02/28/2016 15:19 EDT Associated attestation - Gulshan Montoya Sa, MD - 02/28/2016 3739 EDT Attending Attestation: I saw and evaluated the patient. I discussed the case with the resident/SENIOR PROCESS ENGINEER/fellow and agree with the findings and [...] Notes * Lou Alfonso, JADON - 02/28/2016 9508 EDT Pt awaiting discharge. IV and tele was removed by primary nurse. This RN administered flu shot and provided flu information sheet. AVS and medications reviewed by RN with patient and . AVS statedcoreg was 3.25mg BID, which pt states no, they must have copied it down wrong. I'm not doing that.We've been through this in [place]. It makes me pass out. RN suggested checking with team, which pt denied and states I wont take it twice a day. He did agree to review this medication with his space control agent and plans to remain on his [...] friends and neighbors. Patient has Medicare and [facility]. Pharmacy is [facility] in [facility]. No needs identified at time of discharge. will provide transportation. Beatrice Rodriguez RN Case Manager #[phone] documented in this encounter H&P Notes * Navdeep Hurd MD - 02/27/2016 0830 EDT Cardiology Admitting H&P Admit Date: 02/27/2016 Date of Service: 02/27/2016 PCP: Clem Olvera Code Status: Full Code Chief Complaint: FINN, device battery depletion, high pacing threshold on epicardial lead HPI: 74-year-old man with coronary artery disease and ischemic cardiomyopathy status post silent inferior [place] in the early . 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 He had heart failure symptoms that started around May 2013, when he was in [place], [place]. This triggered major cardiac workup including [...] point, his device was upgraded to a EDITING CLERK-D device with biventricular pacing. By the patient's [...] cardiology outreach clinic at [facility] in [place]. Continued high pacing threshold on the epicardial LV lead has caused a very rapid battery depletion. Dr. David Adams in [place] recommended against lead extraction and reimplant as [...] ??? Pacemaker insertion 2002 2013 second pacemaker [facility] Social History Family History Social History Substance Use Topics ??? Smoking status: Former Smoker Years: 35.00 Quit date: 1989 ??? Smokeless tobacco: Not on file ??? Alcohol use 6.6 oz/week 6 Cans of beer, 5 Glasses of wine per week , lives with , retired. Spends leong in [place]. Spends the chery in [place], [place]. Quit smoking in 1990. Has 2 [...] and ischemic cardiomyopathy status post silent inferior [place] in the early . Also diagnosed with [...] point, his device was upgraded to a EDITING CLERK-D device with biventricular pacing with a surgically [...] Care - Mady Bruno RN - 02/27/2016 4334 EDT Problem: Daily Care Plan Goals Goal: [...] 03/12/2016 12:4 3 EST us Scan 2 Strap Cutter PROCEDURE/MINOR SURGICAL OR DERABLES Final Result * ECG REPORT - SCANNED (03/04/2016 14:06 EDT) 03/04/2016 14:0 6 EDT us Scan 2 Strap Cutter PROCEDURE/MINOR SURGICAL OR DERABLES Final Result * ECG REPORT - SCANNED (03/04/2016 14:06 EDT) 03/04/2016 14:0 6 EDT us Scan 2 Strap Cutter PROCEDURE/MINOR SURGICAL OR DERABLES Final Result * IMPLANT RECORD - SCANNED (03/04/2016 14:06 EDT) 03/04/2016 14:0 6 EDT us Scan 2 Strap Cutter PROCEDURE/MINOR SURGICAL OR DERABLES Final Result * ECG REPORT - SCANNED (03/01/2016 8:58 EDT) 03/01/2016 8:58 EDT us Scan 2 Strap Cutter PROCEDURE/MINOR SURGICAL OR DERABLES Final Result * ECG REPORT - SCANNED (03/01/2016 8:58 EDT) 03/01/2016 8:58 EDT us Scan 2 Strap Cutter PROCEDURE/MINOR SURGICAL OR DERABLES Final Result * [...] 11.8 - 14.1 % 02/28/2016 6:26 EDT [facility] RDW-SD 44.6 36.5 - 45.9 fl 02/28/2016 6:26 EDT [facility] PLT 151 141 - 377 K/cmm 02/28/2016 6:26 EDT [facility] MPV 11.2 9.5 - 12.7 fl 02/28/2016 6:26 EDT [facility] Blood specimen (specimen) BLOOD SPECIMEN / Unknown 02/28/2016 5:44 EDT 02/28/2016 6:13 EDT Beatrice De La Garza SENIOR PROCESS ENGINEER HEMATOLOGY & PF4 ORDE RABLES Final Result Performing Organization Address City/[facility] Co de Phone Number [facility] [address] [place] [address] * (ABNORMAL) CREATININE (02/28/2016 5:44 EDT) Creatinine 0.65(L) 0.66 - 1.25 mg/dl 02/28/2016 6:48 EDT [facility] GFR, Calculated 95 >60 ml/min/1.7 3m2 02/28/2016 6:48 EDT [facility] Comment: eGFR calculated using CKD-EPI equation for non Americans. Multiply eGFR by 1.16 for Americans. Blood specimen (specimen) BLOOD SPECIMEN / Unknown 02/28/2016 5:44 EDT 02/28/2016 6:13 EDT Beatrice De La Garza NP CHEMISTRY & BLOOD GAS ORDERABLES Final Result Performing Organization Address City/[facility]/ZIP Co de Phone Number [facility] [address] [place] [address] * BUN (02/28/2016 5:44 EDT) BUN 14 10 - 26 mg/dl 02/28/2016 6:48 EDT [facility] Blood specimen (specimen) BLOOD SPECIMEN / Unknown 02/28/2016 5:44 EDT 02/28/2016 6:13 EDT Beatrice De La Garza SENIOR PROCESS ENGINEER CHEMISTRY & BLOOD GAS ORDERABLES Final Result Performing Organization Address [facility] Co de Phone Number [facility] [address] [place] [address] * ELECTROLYTES (02/28/2016 5:44 EDT) Sodium 138 136 - 145 mEq/L 02/28/2016 6:48 EDT [facility] Potassium 4.7 3.5 - 5.0 mEq/L 02/28/2016 6:48 EDT [facility] Chloride 104 96 - 110 mEq/L 02/28/2016 6:48 EDT [facility] CO2 25 22 - 32 mEq/L 02/28/2016 6:48 EDT [facility] Comment:Note new reference r hong 02/19/16 Blood specimen (specimen) BLOOD SPECIMEN / Unknown 02/28/2016 5:44 EDT 02/28/2016 6:13 EDT Result [facility] Beatrice De La Garza NP CHEMISTRY & BLOOD GAS ORDERABLES Final Result Performing Organization Address [facility] Co de Phone Number [facility] [address] [place] [address] * PORTABLE CHEST 1 VIEW (02/27/2016 12:46 [...] 12:41 EDT) 02/27/2016 12:4 1 EDT Narrative [facility] - 02/28/2016 8:57 EDT ? [facility] ? Test Date: ?2016-02-27 Pat Name: ? NABIL IGLESIAS ? Department: ?? HERN[address] 5 ? Room: ? MW514 Gender: ? M ?Stable Cleaner: ?? [id number] : ?1940 ? Requested By: KAIN Gallagher Order Number: [id number] ? Julia WRIGHT: ?? BRAYAN CUENCA MD ? Measurements Intervals ?[place] ? Rate: ? 63 ? P: ?15 WA: ? 159 ?QRS: ?234 QRSD: ? 156 [...] Date: 2016-02-27 Pat Name: NABIL IGLESIAS Department: [place] [address] Room: [facility] Gender: M Stable Cleaner: [id number] : 1940 Requested By: KAIN Gallagher Order Number: [id number] Reading MD: BRAYAN CUENCA MD Measurements Intervals [place] Rate: 63 P: 15 WA: 159 QRS: 234 QRSD: 156 T: 15 QT: 479 QTc: 493 Interpretive Statements ELECTRONIC VENTRICULAR PACEMAKER Compared to ECG 02/27/2016 08:10:34 No significant changes I reviewed the tracing and have either agreed or edited the findings inthis report. Electronically Signed On 02-28-16 08:57:02 EDT by BRAYAN BEEBE. us Gulshan Drummond MD PhD CARDIAC ECG OR DERABLES Final Result Performing Organization Address [facility] Co de Phone Number [facility] * PROTIME (02/27/2016 8:45 EDT) Pro Time 12.3 10.3 - 13.1 secs 02/27/2016 9:10 EDT [facility] Comment: New prothrombin t josue range effective 01/29/16 I.N.R. 1.1 0.9 - 1.1 Ratio 02/27/2016 9:10 EDT [facility] Comment: Moderate Intensity Coumadin INR = 2.0-3.0 Adjustments in anticoagulant therapy dose should be based upon the INR and NOT the Pro Time. Blood specimen (specimen) BLOOD SPECIMEN / Unknown 02/27/2016 8:45 EDT 02/27/2016 8:54 EDT us Gulshan Drummond MD PhD HEMATOLOGY & P F4 ORDERABLES Final Result Performing Organization Address [facility] Co de Phone Number [facility] [address] [place] [address] * HEMAGRAM (02/27/2016 8:45 EDT) WBC 6.47 4.0 - 10.4 K/cmm 02/27/2016 8:57 EDT [facility] RBC 4.51 4.36 - 5.78 M/cmm 02/27/2016 8:57 T [facility] Hemoglobin 14.7 13.8 - 17.3 gm/dl 02/27/2016 8:57 EDT [facility] HCT 41.7 39.5 - 50.2 % 02/27/2016 8:57 EDT [facility] MCV 93 81 - 95 fl 02/27/2016 8:57 EDT [facility] MCH 32.6 27.6 - 33.0 pg 02/27/2016 8:57 EDT [facility] MCHC 35.3 32.8 - 36.4 gm/dl 02/27/2016 8:57 EDT [facility] RDW-CV 13.1 11.8 - 14.1 % 02/27/2016 8:57 EDT [facility] RDW-SD 44.0 36.5 - 45.9 fl 02/27/2016 8:57 EDT [facility] PLT 176 141 - 377 K/cmm 02/27/2016 8:57 EDT [facility] MPV 10.7 9.5 - 12.7 fl 02/27/2016 8:57 EDT [facility] Blood specimen (specimen) BLOOD SPECIMEN / Unknown 02/27/2016 8:45 EDT 02/27/2016 8:54 EDT us Gulshan Drummond MD PhD HEMATOLOGY & P F4 ORDERABLES Final Result Performing Organization Address City/[facility] Co de Phone Number [facility] [address] [place] [address] * ELECTROLYTES (02/27/2016 8:45 EDT) Sodium 142 136 - 145 mEq/L 02/27/2016 9:13 T [facility] Potassium 4.7 3.5 - 5.0 mEq/L 02/27/2016 9:13 T [facility] Chloride 103 96 - 110 mEq/L 02/27/2016 9:13 EDT [facility] CO2 27 22 - 32 mEq/L 02/27/2016 9:13 T [facility] Comment:Note new reference r hong 02/19/16 Blood specimen (specimen) BLOOD SPECIMEN / Unknown 02/27/2016 8:45 EDT 02/27/2016 8:54 EDT us Gulshan Drummond MD PhD CHEMISTRY & BL OOD GAS ORDERABLES Final Result Performing Organization Address City/[facility]/ZIP Co de Phone Number [facility] [address] [place] [address] * CREATININE (02/27/2016 8:45 EDT) Creatinine 0.69 0.66 - 1.25 mg/dl 02/27/2016 9:13 EDT [facility] GFR, Calculated 93 >60 ml/min/1.7 3m2 02/27/2016 9:13 EDT [facility] Comment: eGFR calculated using CKD-EPI equation for non Americans. Multiply eGFR by 1.16 for Americans. Blood specimen (specimen) BLOOD SPECIMEN / Unknown 02/27/2016 8:45 EDT 02/27/2016 8:54 EDT us Gulshan Drummond MD PhD CHEMISTRY & BL OOD GAS ORDERABLES Final Result Performing Organization Address City/[facility] Co de Phone Number [facility] [address] [place] [address] * BUN (02/27/2016 8:45 EDT) BUN 17 10 - 26 mg/dl 02/27/2016 9:13 EDT [facility] Blood specimen (specimen) BLOOD SPECIMEN / Unknown 02/27/2016 8:45 EDT 02/27/2016 8:54 EDT us Gulshan Drummond MD PhD CHEMISTRY & BL OOD GAS ORDERABLES Final Result Performing Organization Address City/[facility] Co de Phone Number [facility] [address] [place] [address] * EKG 12-LEAD (02/27/2016 8:08 EDT) 02/27/2016 8:08 EDT Narrative [facility] - 02/28/2016 9:01 EDT ? [facility] ? Test Date: ?2016-02-27 Pat Name: ? NABIL IGLESIAS ? Department: ?? [facility]iop[facility] ? Room: ? [id number] Gender: ? M ?Stable Cleaner: ?? [id number] : ?1940 ? Requested By: MARCIA Boo Order Number: [id number] ? Reading MD: ?? BRAYAN CUENCA MD ? Measurements Intervals ?[place] ? Rate: ? 69 ? P: ?147 WA: ? 134 ?QRS: ?-67 QRSD: ? 160 [...] Pat Name: NABIL IGLESIAS Department: [facility] Room: GF4287 Gender: M Stable Cleaner: [id number] : 1940 Requested By: MARCIA Boo Order Number: [id number] Reading MD: BRAYAN CUENCA MD Measurements Intervals [place] Rate: 69 P: 147 WA: 134 QRS: -67 QRSD: 160 T: -59 QT: 434 QTc: 467 Interpretive Statements ELECTRONIC ATRIAL PACEMAKER ELECTRONIC VENTRICULAR PACEMAKER Compared to ECG 02/27/2016 08:08:46 No significant changes I reviewed the tracing and have either agreed or edited the findings inthis report. Electronically Signed On 02-28-16 09:01:04 EDT by BRAYAN BEEBE. Navdeep Hurd MD CARDIAC ECG ORDERABLES Final Result [facility] documented in this encounter Visit [...] Reason: Other - Comment: pt already took STROKE COORDINATOR, takes other meds at HS) 921 (Given [...] Reason: Other - Comment: pt already took STROKE COORDINATOR, takes other meds at HS)210 (Given - Provider: Mady Bruno, JADON) spironolactone (ALDACTONE) tablet 12.5 mg 12.5 mg, oral, DAILY, First dose on Thu02/27/16 at 1245, Until Discontinued, Routine 1306 (Not Given - Provider: Nneka Stuart RN - Reason: Other - Comment: pt already took STROKE COORDINATOR, takes other meds at HS)210 (Given - Provider: Mady Bruno RN) tamsulosin (FLOMAX) capsule 0.4 mg 0.4 mg, oral, DAILY, First dose on Thu02/27/16 at 1245, Until Discontinued, Routine 1306 (Not Given - Provider: Nneka Stuart RN - Reason: Other - Comment: pt already took STROKE COORDINATOR, takes other meds at HS) 09 (Given [...] 02/02 documented in this encounter Care Teams Coordinate Measuring Machine Technician Relationship Specialty Start Date End Date Clem Olvera MD [address] [place] [address] PCP - General 12/18/15 documented as of this encounter
--- OUTSIDE RECORDS SUMMARY | 2024-06-16 08:09 | XMS_ITS | Encounter Summary ---
Author Organization [facility] Address [address] [place] [address] Care Team Providers Care Content Engineer Name Role Phone Clem Olvera MD Primary Care Provider [phone] Reason for Referral * Cardiology (3 - [...] Expiration Date Visits Re quested Visits Authorized [id number] Closed 02/13/2016 1 1 Encounter Details Date Type Department Care Team (Latest Contact Info) Description 02/13/2016 Pre-Procedure [facility] [address] [place], [place] [address] Navdeep Hurd MD [address] [place] [address] [phone] ICD (implantable cardioverter-defibril lator) battery depletion (Primary [...] EDT Narrative 02/27/2016 15:17 EDT *Cardiology* [address] [place] [address] Lead Revision (Report amended ) Patient: Nabil Iglesias ?Study Date: ?02/27/2016 ? Accession #: ? [id number] : ? 1940 Referring: Clem Olvera Attending: [...] 0.35 glide wire a Nick MENDOZAW 6F (Critical access hospital) 6 mm-40 mm balloon dilation still could [...] Venograms were performed in the MOORE and YI projections and a suitable mid-lateral LV branch [...] fascia. The leads were connected to a GEROPSYCHOLOGIST-D device. Device and Lead detail in table [...] Implanted device: Medtronic - Viva Quad XT GEROPSYCHOLOGIST-D DF4 - Serial number: [id number] Explanted device: Medtronic - Viva XT GEROPSYCHOLOGIST-D DF4 - Serial number: [id number]. LEAD PARAMETERS + + + + + [...] ? Medtronic ? Enpath ? information ?? 6685 ? 6953M ? Attain ? Epicardial ? Performa 4298 ? + + + + + + Serial number [id number] ? [id number] ?? [id number] ?? [id number] ? + + + + [...] Note Gulshan Drummond MD - 05/12/2016 *Cardiology* [address] [place] [address] Lead Revision (Report amended ) Patient: Nabil [...] therefore over an 0.35 glide wire a [place] OTW 6F (Critical access hospital) 6 mm-40 mm balloon dilation still could [...] Venograms were performed in the MOORE and YI projections and a suitable mid-lateral LV branch [...] fascia. The leads were connected to a GEROPSYCHOLOGIST-D device. Device and Lead detail in table [...] topical skin adhesive. IMPLANTED HARDWARE: Implanted device: [employer] - Viva Quad XT GEROPSYCHOLOGIST-D DF4 - Serial number: [id number] Explanted device: Medtronic - Viva XT GEROPSYCHOLOGIST-D DF4 - Serial number: [id number]. LEAD PARAMETERS + + + + + [...] + + + + + Serial number [id number] + + + + + + [...] situ documented in this encounter Care Teams Content Engineer Relationship Specialty Start Date End Date Clem Olvera MD [address] [place] [address] PCP - General 12/18/15 documented as of this encounter
--- OUTSIDE RECORDS SUMMARY | 2024-06-16 08:09 | XMS_ITS | Encounter Summary ---
Author Organization [facility] Address [address] [place] [address] Care Team Providers Care Leather Stripping Machine Operator Name Role Phone Unknown, Provider Primary Care Provider Clem Alcala MD Primary Care Provider [phone] Encounter Details Date Type Department Care Team (Late st Contact Info) Description 11/29/2015 Pre-Procedure Orders Encounter [facility] [address] [place], [place] [address] Navdeep Hurd MD [address] [place] [address] [phone] Social History Tobacco Use Types [...] Ferdinand Nabil Ema. Attending: Dr. Dean Bailey Wet Process Miller Head: Dr. Fantasma Dhillon History/indication: The patient is [...] Nabil Streeter Attending: Dr. Dean Bailey Wet Process Miller Head: Dr. Fantasma Dhillon History/indication: The patient is [...] filedocumented in this encounter Care Teams Leather Stripping Machine Operator Relationship Specialty Start Date End Date Unknown, Provider, PCP - General 12/06/12 12/17/15 Clem Olvera MD [address] [place] [address] PCP - General 12/18/15 documented as of this encounter
--- OUTSIDE RECORDS SUMMARY | 2024-06-16 08:10 | XMS_ITS | Encounter Summary ---
Author Organization [facility] [place] [address] Care Team Providers Care Office Clerk Assistant Name Role Phone Donny Cooper MD Primary Care Provider [phone] Encounter Details Date Type Department Care Team (Late st Contact Info) Description 06/01/2024 Notes Only Cardiology at [address] [phone] Marina Caballero APRN [facility] [place] [address] Social History Tobacco Use Types Packs/Day Years [...] Please see his outpatient clinic note at [facility] 09/02/23 for details. Marina Caballero APRN 06/01/24 documented in this encounter Plan of Treatment Upcoming Encounters Date Type Department Care Team (Late st Contact Info) Description 07/31/2024 10:00 AM EDT Hospital Encounter Non-Invasive [place] [address] Arrived documented as of this encounter Visit Diagnoses Not on filedocumented in this encounter Care Teams Office Clerk Assistant Relationship Specialty Start Date End Date Donny Cooper MD [address] [place] [address] PCP - General Family Medicine 02/25/19 documented as of this encounter
--- OUTSIDE RECORDS SUMMARY | 2024-06-16 08:10 | XMS_ITS | Encounter Summary ---
[place] [address] Care Team Providers Care Employment Case Manager Name Role Phone Donny Cooper MD Primary Care Provider [phone] Encounter Details Date Type Department Care Team (Late st Contact Info) Description 03/17/2019 Telephone Cardiology at [address] [phone] Sheri Quinn LNA Social History [...] AM EST Medication list reviewed with [facility] list. Please review with patient at next clinic visit. documented in this encounter Plan of Treatment Upcoming Encounters Date Type Department Care Team (Late st Contact Info) Description 07/31/2024 10:00 AM EDT Hospital Encounter Non-[place] [address] Arrived documented as of this encounter Visit Diagnoses Not on filedocumented in this encounter Care Teams Employment Case Manager Relationship Specialty Start Date End Date Donny Cooper MD [address] [place] [address] PCP - General Family Medicine 02/25/19 documented as of this encounter
--- OUTSIDE RECORDS SUMMARY | 2024-06-16 08:10 | XMS_ITS | Encounter Summary ---
[place] [address] Care Team Providers Care Chemical Laboratory Assistant Name Role Phone Donny Cooper MD Primary Care Provider [phone] Encounter Details Date Type Department Care Team (Late st Contact Info) Description 12/28/2023 Notes Only Cardiology at [address] [phone] Kanika Sehll Social History Tobacco Use Types Packs/Day Years [...] AM EDT Hospital Encounter Non[place] [address] Arrived documented as of this encounter Visit Diagnoses Not on filedocumented in this encounter Care Teams Chemical Laboratory Assistant Relationship Specialty Start Date End Date Donny Cooper MD [address] [place] [address] [address] [facility] [address] [place] [address] PCP - General Family Medicine 02/25/19 documented as of this encounter
--- OUTSIDE RECORDS SUMMARY | 2024-06-16 08:10 | XMS_ITS | Encounter Summary ---
[place] [address] Care Team Providers Care Director Business Travel Name Role Phone Donny Cooper MD Primary Care Provider +1 -[phone] Encounter Details Date Type Department Care Team (Latest Contact Info) Description 08/06/2023 10:00 AM EDT - 08/06/2023 11:59 PM EDT Hospital Encounter Non-[place] [address] Discharge Disposition: Home Social History Tobacco Use [...] AM EDT Hospital Encounter Non-Invasive [place] [address] Arrived documented as of this encounter Visit Diagnoses Not on filedocumented in this encounter Care Teams Director Business Travel Relationship Specialty Start Date End Date Donny Cooper MD [address] [place] [address] PCP - General Family Medicine 02/25/19 documented as of this encounter
--- OUTSIDE RECORDS SUMMARY | 2024-06-16 08:10 | XMS_ITS | Encounter Summary ---
Author Organization [facility] [place] [address] Care Team Providers Care Dining Room Hostess Name Role Phone Donny Cooper MD Primary Care Provider +1 -[phone] Encounter Details Date Type Department Care Team (Latest Contact Info) Description 10/03/2022 10:00 AM EDT Office Visit Cardiology at [address] [address] Eleno No, PA [facility] [place] [address] Cardiomyopathy, primary; Presence of cardiac resynchronization therapy defibrillator (ARABIC TEACHER-D); Diaphragmatic stimulation by cardiac pacemaker, initial encounter [...] original note were not included. Cardiac Device ARABIC TEACHER-D Programming Evaluation Nabil Iglesias [id number] 10/03/2022 History: Mr. Iglesias is a pleasant [...] OFF Pacing Mode: DDD 60/130/120 Presenting EGMs: -BP/-FIREWORKS ASSEMBLER Underlying Rhythm: CHB with no obvious escape [...] EDT Hospital Encounter Non-Invasive [place] [address] Arrived documented as of this encounter Procedures Procedure Name Priority Date/Time Associated Diagnosis Comments EKG 12-LEAD Routine 10/03/2022 11:00 AM EDT Cardiomyopathy, primary Presence of cardiac resynchronization therapy defibrillator (ARABIC TEACHER-D) Diaphragmatic stimulation by cardiac pacemaker, initial encounter documented in this encounter Results * EKG 12 Lead (10/03/2022 11:00 AM EDT) Ventricular rate 74 BPM MUSE SYSTEM Atrial Rate 74 BPM MUSE SYSTEM P-R Interval 154 ms MUSE SYSTEM QRS Duration 162 ms MUSE SYSTEM Q-T Interval 470 ms MUSE SYSTEM QTC Calculated (Bezet) 521 ms MUSE SYSTEM Calculated P [place] 30 degrees MUSE SYSTEM Calculated R [place] -98 degrees MUSE SYSTEM Calculated T [place] 41 degrees MUSE SYSTEM INTERPRETATION Atrial-sense d [...] cardiomyopathies Presence of cardiac resynchronization therapy defibrillator (ARABIC TEACHER-D) Diaphragmatic stimulation by cardiac pacemaker, initial encounter documented in this encounter Care Teams Dining Room Hostess Relationship Specialty Start Date End Date Donny Cooper MD [address] [place] [address] PCP - General Family Medicine 02/25/19 documented as of this encounter
--- OUTSIDE RECORDS SUMMARY | 2024-06-16 08:10 | XMS_ITS | Encounter Summary ---
Author Organization [facility] [place] [address] Care Team Providers Care Underwear Welter Name Role Phone Donny Cooper MD Primary Care Provider [phone] [phone] Encounter Details Date Type Department Care Team (Latest Contact Info) Description 06/25/2021 3:23 PM EST - 06/25/2021 11:59 PM EST Hospital Encounter [place] [address] Alber Seals MD [facility] [address] Cardiomyopathy, primary Discharge Disposition: Home Social History [...] AM EDT Hospital Encounter [place] [address] Arrived documented as of this encounter Procedures Procedure Name Priority Date/Time Associated Diagnosis Comments ICD INTERROGATION 3 MONTH Routine 06/25/2021 3:24 PM EST Cardiomyopathy, primary documented in this encounter Results * ICD INTERROGATION 3 MONTH (06/25/2021 3:24 PM EST) Anatomical Region Laterality Modality Other Narrative 06/25/2021 3:42 PM EST Cardiac Device Remote Monitoring Report Summary Medtronic Carelink Device: BUTTONHOLE MAKER-D Model: VIVA QUAD Battery: 2.95 v, estimated longevity 2 years 6 months Pacing percentage: 90% BUTTONHOLE MAKER paced Events: Presenting rhythm: atrial paced/biventricular paced Frequent PVC's Impression Normal device function Follow Up As per schedule - in-clinic and remote ALBER SEALS MD 06/25/21 Alber Seals MD IMPLANTABLE CARDIAC DEVICE documented in this encounter Visit Diagnoses Diagnosis Cardiomyopathy, primary Other primary cardiomyopathies documented in this encounter Care Teams Underwear Welter Relationship Specialty Start Date End Date Donny Cooper MD [address] [place] [address] PCP - General Family Medicine 02/25/19 documented as of this encounter
--- OUTSIDE RECORDS SUMMARY | 2024-06-16 08:10 | XMS_ITS | Encounter Summary ---
[place] [address] Care Team Providers Care Gift Consultant Name Role Phone Donny Cooper MD Primary Care Provider +1 -[phone] Encounter Details Date Type Department Care Team (Latest Contact Info) Description 05/02/2024 10:00 AM EST - 05/02/2024 11:59 PM [facility] Hospital Encounter Non[place] [address] Discharge Disposition: Home Social History Tobacco Use [...] Hospital Encounter Non-[place] [address] Arrived documented as of this [...] on filedocumented in this encounter Care Teams Gift Consultant Relationship Specialty Start Date End Date Donny Cooper MD [address] [place] [address] PCP - General Family Medicine 02/25/19 documented as of this encounter
--- OUTSIDE RECORDS SUMMARY | 2024-06-16 08:10 | XMS_ITS | Encounter Summary ---
[facility] [place] [address] Care Team Providers Care Orange Peel Operator Name Role Phone Clem Olvera MD Primary Care Provider [phone] Reason for Visit * Reason Comments Follow Up Fracture SP PATELLA FX DO12/12 DOI 03/30/10 Encounter Details Date Type Department Care Team (Late st Contact Info) Description 04/09/2011 1:30 PM EST Office [place] [address] Jairon Gustafson MD Aubin, Christopher J, PA [facility] [place] [address] Patella fracture (Primary Dx) Discharge Disposition: Home [...] AM EDT Hospital Encounter Non-[place] [address] Arrived documented as of this encounter Visit Diagnoses Diagnosis Patella fracture- Primary Closed fracture of patella documented in this encounter Care Teams Orange Peel Operator Relationship Specialty Start Date End Date Clem Olvera MD [address] [place] [address] PCP - General 04/09/11 02/24/19 documented as of this encounter
--- OUTSIDE RECORDS SUMMARY | 2024-06-16 08:10 | XMS_ITS | Encounter Summary ---
Author Organization [facility] [place] [address] Care Team Providers Care Socket Puller Name Role Phone Donny Cooper MD Primary Care Provider [phone] [phone] Encounter Details Date Type Department Care Team (Late st Contact Info) Description 03/18/2024 Notes Only Cardiology at [address] [address] Marina Caballero APRN [facility] [place] [address] Social History Tobacco Use Types Packs/Day Years [...] AM EDT Hospital Encounter Non-[place] [address] Arrived documented as of this encounter Visit Diagnoses Not on filedocumented in this encounter Care Teams Socket Puller Relationship Specialty Start Date End Date Donny Cooper MD [address] [place] [address] PCP - General Family Medicine 02/25/19 documented as of this encounter
--- OUTSIDE RECORDS SUMMARY | 2024-06-16 08:10 | XMS_ITS | Encounter Summary ---
Author Organization [facility] [place] [address] Care Team Providers Care Electrical Cad Designer Name Role Phone Donny Cooper MD Primary Care Provider [phone] [phone] Encounter Details Date Type Department Care Team (Latest Contact Info) Description 06/13/2020 12:35 PM EST - 06/13/2020 11:59 PM EST Hospital Encounter Non-Invasive [place] [address] [facility] [place] [address] Cardiomyopathy, primary Discharge Disposition: Home Social History [...] EDT Hospital Encounter Non-Invasive [place] [address] Arrived documented as of this encounter Procedures Procedure Name Priority Date/Time Associated Diagnosis Comments ICD INTERROGATION 3 MONTH Routine 06/13/2020 12:36 PM EST Cardiomyopathy, primary documented in this encounter Results * ICD INTERROGATION 3 MONTH (06/13/2020 12:36 PM EST) Anatomical Region Laterality Modality Other Narrative 06/14/2020 10:38 AM EST Cardiac Device Remote Monitoring Report Summary Medtronic Global Imaging Online 06/14/20 Device: COOLER CONVEYOR LOADER-D Model: VIVA QUAD Battery: 2.96 v, estimated longevity 3 years, 11 months Pacing percentage: 78% ventricular paced Events: The presenting rhythm is atrial paced with biventricular pacing and frequent ventricular premature contractions No significant arrhythmias Impression Normal device function; suboptimal COOLER CONVEYOR LOADER pacing likely secondary to frequent PVCs. Should consider in clinic follow-up for further evaluation Follow Up As per schedule - in-clinic and remote ALBER SEALS MD Alber Seals MD IMPLANTABLE CARDIAC DEVICE documented in this encounter Visit Diagnoses Diagnosis Cardiomyopathy, primary Other primary cardiomyopathies documented in this encounter Care Teams Electrical Cad Designer Relationship Specialty Start Date End Date Donny Cooper MD [address] [place] [address] PCP - General Family Medicine 02/25/19 documented as of this encounter
--- OUTSIDE RECORDS SUMMARY | 2024-06-16 08:10 | XMS_ITS | Clinical Summary ---
Author Organization [facility] [place] [address] Care Team Providers Care Explosives Operator Name Role Phone Donny Cooper MD Primary Care Provider [phone] [phone] Allergies No known active allergies Medications Medication [...] Team Description 06/01/2024 Notes Only Cardiology at [address] [address] Marina Caballero APRN 05/02/2024 10:00 AM EST - 05/02/2024 11:59 PM EST Hospital Encounter [place] [address] Discharge Disposition: Home 03/18/2024 Notes Only Cardiology at [address] [address] Marina Caballero, SOFTWARE PROJECT MANAGER from Last 3 Months Immunizations Name Administration [...] AM EDT Hospital Encounter [place] [address] Arrived Health Maintenance Due Date Last Done [...] 03/06/2006, 02/24/2005 Medical Devices Implanted Type Area Distribution Field Engineer Device Identifier Shelf Expiration Date Model / Serial / Lot Mdt : [id number] : [id number] Implanted: (Quantity not on file) Cardiac Resynchronization Therapy - Defibrillator Chest Medtronic - [id number] / [id number] / Care Teams Explosives Operator Relationship Specialty Start Date End Date Donny Cooper MD [address] [place], [place] [id number] PCP - General Family Medicine 02/25/19
--- OUTSIDE RECORDS SUMMARY | 2024-06-16 08:10 | XMS_ITS | Encounter Summary ---
Author Organization [facility] [place] [address] Care Team Providers Care Senior Product Engineer Name Role Phone Donny Cooper MD Primary Care Provider [phone] [phone] Encounter Details Date Type Department Care Team (Latest Contact Info) Description 12/18/2020 11:57 AM EDT - 12/18/2020 11:59 PM EDT Hospital Encounter Non-Invasive [place] [address] Maged Arguelles MD [facility] [place] [address] Cardiomyopathy, primary Discharge Disposition: Home Social History [...] AM EDT Hospital Encounter Non-Invasive [place] [address] Arrived documented as of this encounter Procedures Procedure Name Priority Date/Time Associated Diagnosis Comments ICD INTERROGATION 3 MONTH Routine 12/18/2020 12:00 PM EDT Cardiomyopathy, primary documented in this encounter Results * ICD INTERROGATION 3 MONTH (12/18/2020 12:00 PM EDT) Anatomical Region Laterality Modality Other Narrative 12/23/2020 11:08 PM EDT MDT MANAGER INDUSTRIAL-D remote reviewed. Normal device function. Inadequate MANAGER INDUSTRIAL at 80%. Maged Arguelles MD [facility] Cardiac Electrophysiology 12/23/2020 11:06 PM Maged Arguelles MD IMPLANTABLE CARDIAC DEVICE documented in this encounter Visit Diagnoses Diagnosis Cardiomyopathy, primary Other primary cardiomyopathies documented in this encounter Care Teams Senior Product Engineer Relationship Specialty Start Date End Date Donny Cooper MD [address] [facility] [address] [place] [address] PCP - General Family Medicine 02/25/19 documented as of this encounter
--- OUTSIDE RECORDS SUMMARY | 2024-06-16 08:10 | XMS_ITS | Encounter Summary ---
[place] [address] Care Team Providers Care Instructor Bus Trolley And Taxi Name Role Phone Donny Cooper MD Primary Care Provider [phone] -[phone] Encounter Details Date Type Department Care Team (Latest Contact Info) Description 04/03/2023 10:00 AM EST - 04/03/2023 11:59 PM [facility] Hospital Encounter [place] [address] Discharge Disposition: Home Social History Tobacco Use [...] AM EDT Hospital Encounter [place] [address] Arrived documented as of this [...] on filedocumented in this encounter Care Teams Instructor Bus Trolley And Taxi Relationship Specialty Start Date End Date Donny Cooper MD [address] [place] [address] PCP - General Family Medicine 02/25/19 documented as of this encounter
--- OUTSIDE RECORDS SUMMARY | 2024-06-16 08:10 | XMS_ITS | Encounter Summary ---
[place] [address] Care Team Providers Care Pouncing Lathe Operator Name Role Phone Donny Cooper MD Primary Care Provider +1 -[phone] Encounter Details Date Type Department Care Team (Latest Contact Info) Description 10/05/2022 10:00 AM EDT - 10/05/2022 11:59 PM EDT Hospital Encounter Non-[place] [address] Discharge Disposition: Home Social History Tobacco Use [...] Hospital Encounter Non-[place] [address] Arrived documented as of this encounter Procedures [...] on filedocumented in this encounter Care Teams Pouncing Lathe Operator Relationship Specialty Start Date End Date Donny Cooper MD [address] [place] [address] PCP - General Family Medicine 02/25/19 documented as of this encounter
--- OUTSIDE RECORDS SUMMARY | 2024-06-16 08:10 | XMS_ITS | Encounter Summary ---
[place] [address] Care Team Providers Care Scrubber Machine Tender Name Role Phone Donny Cooper MD Primary Care Provider +1 -[phone] Encounter Details Date Type Department Care Team (Latest Contact Info) Description 11/04/2023 10:00 AM EDT - 11/04/2023 11:59 PM EDT Hospital Encounter Non-Invasive [place] [address] Discharge Disposition: Home Social History Tobacco Use [...] EDT Hospital Encounter Non-Invasive [place] [address] Arrived documented as of this encounter Procedures [...] on filedocumented in this encounter Care Teams Scrubber Machine Tender Relationship Specialty Start Date End Date Donny Cooper MD [address] [place] [address] PCP - General Family Medicine 02/25/19 documented as of this encounter
--- OUTSIDE RECORDS SUMMARY | 2024-06-16 08:10 | XMS_ITS | Encounter Summary ---
[place] [address] Care Team Providers Care Power Shear Operator Name Role Phone Donny Cooper MD Primary Care Provider +1 -[phone] Encounter Details Date Type Department Care Team (Late st Contact Info) Description 06/14/2020 Telephone Cardiology at [address] [address] Nhung Briggs Social History Tobacco Use Types [...] or LANG Albert. Nhung Allen Electrophysiology Scheduling [id number] option 2 documented in this encounter Plan of Treatment Upcoming Encounters Date Type Department Care Team (Late st Contact Info) Description 07/31/2024 10:00 AM EDT Hospital Encounter Non-[place] [address] Arrived documented as of this encounter Visit Diagnoses Not on filedocumented in this encounter Care Teams Power Shear Operator Relationship Specialty Start Date End Date Donny Cooper MD [address] [place] [address] PCP - General Family Medicine 02/25/19 documented as of this encounter
--- OUTSIDE RECORDS SUMMARY | 2024-06-16 08:10 | XMS_ITS | Encounter Summary ---
[place] [address] Care Team Providers Care Stock Tracer Name Role Phone Donny Cooper MD Primary Care Provider +1 -[phone] Encounter Details Date Type Department Care Team (Latest Contact Info) Description 04/08/2022 10:00 AM EST - 04/08/2022 11:59 PM [facility] Hospital Encounter [place] [address] Discharge Disposition: Home Social History Tobacco Use [...] AM EDT Hospital Encounter [place] [address] Arrived documented as of this [...] filedocumented in this encounter Care Teams Stock Tracer Relationship Specialty Start Date End Date Donny Cooper MD [address] [place] [address] PCP - General Family Medicine 02/25/19 documented as of this encounter
--- OUTSIDE RECORDS SUMMARY | 2024-06-16 08:10 | XMS_ITS | Encounter Summary ---
[place] [address] Care Team Providers Care Biomedical Equipment Technician Name Role Phone Donny Cooper MD Primary Care Provider +1 -[phone] Encounter Details Date Type Department Care Team (Latest Contact Info) Description 07/02/2023 10:00 AM EST - 07/02/2023 11:59 PM EST Hospital Encounter Non-[place] [address] Discharge Disposition: Home Social History Tobacco Use [...] EDT Hospital Encounter Non-Invasive [place] [address] Arrived documented as of this encounter Visit Diagnoses Not on filedocumented in this encounter Care Teams Biomedical Equipment Technician Relationship Specialty Start Date End Date Donny Cooper MD [address] [place] [address] PCP - General Family Medicine 02/25/19 documented as of this encounter
--- OUTSIDE RECORDS SUMMARY | 2024-06-16 08:10 | XMS_ITS | Encounter Summary ---
[place] [address] Care Team Providers Care Bus Inspector Name Role Phone Donny Cooper MD Primary Care Provider +1 -[phone] Encounter Details Date Type Department Care Team (Latest Contact Info) Description 07/07/2022 10:00 AM EST - 07/07/2022 11:59 PM EST Hospital Encounter Non[place] [address] Discharge Disposition: Home Social History Tobacco Use [...] AM EDT Hospital Encounter Non-[place] [address] Arrived documented as of this [...] on filedocumented in this encounter Care Teams Bus Inspector Relationship Specialty Start Date End Date Donny Cooper MD [address] [place] [address] PCP - General Family Medicine 02/25/19 documented as of this encounter
--- OUTSIDE RECORDS SUMMARY | 2024-06-16 08:10 | XMS_ITS | Encounter Summary ---
Author Organization [facility] [place] [address] Care Team Providers Care Weapons Electrical Engineering Officer Name Role Phone Donny Cooper MD Primary Care Provider +1 -[phone] Encounter Details Date Type Department Care Team (Late st Contact Info) Description 07/26/2019 Notes Only Cardiology at [address] [address] Maged Arguelles MD [facility] [place] [address] Social History Tobacco Use Types Packs/Day Years [...] his Medtronic biventricular ICD is reviewed. Suboptimal EXPERIMENTAL OUTBOARD MOTORS MECHANIC at 84%. Normal device function. Awaiting Holter to assess PVC burden. Maged Arguelles MD [facility] Cardiac Electrophysiology 07/26/2019 9:04 AM documented in this encounter Plan of Treatment Upcoming Encounters Date Type Department Care Team (Late st Contact Info) Description 07/31/2024 10:00 AM EDT Hospital Encounter Non-Invasive [place] [address] Arrived documented as of this encounter Visit Diagnoses Not on filedocumented in this encounter Care Teams Weapons Electrical Engineering Officer Relationship Specialty Start Date End Date Donny Cooper MD [address] [place] [address] PCP - General Family Medicine 02/25/19 documented as of this encounter
--- OUTSIDE RECORDS SUMMARY | 2024-06-16 08:10 | XMS_ITS | Encounter Summary ---
[place] [address] Care Team Providers Care Maintenance Clerk Name Role Phone Donny Cooper MD Primary Care Provider +1 -[phone] Encounter Details Date Type Department Care Team [...] AM EDT Hospital Encounter Non[place] [address] Arrived documented as of this encounter Visit Diagnoses Not on filedocumented in this encounter Care Teams Maintenance Clerk Relationship Specialty Start Date End Date Donny Cooper MD [address] [place] [address] PCP - General Family Medicine 02/25/19 documented as of this encounter
--- OUTSIDE RECORDS SUMMARY | 2024-06-16 08:10 | XMS_ITS | Encounter Summary ---
[place] [address] Care Team Providers Care Interventional Tech Name Role Phone Donny Cooper MD Primary Care Provider +1 -[phone] Encounter Details Date Type Department Care Team (Latest Contact Info) Description 01/03/2023 10:00 AM EDT - 01/03/2023 11:59 PM EDT Hospital Encounter Non-Invasive [place] [address] Discharge Disposition: Home Social History Tobacco Use [...] AM EDT Hospital Encounter Non-Invasive [place] [address] Arrived documented as of this encounter Procedures [...] [address] [place] [address] PCP - General Family Medicine 02/25/19 documented as of this encounter
--- OUTSIDE RECORDS SUMMARY | 2024-06-16 08:10 | XMS_ITS | Encounter Summary ---
[place] [address] Care Team Providers Care Office System Analyst Name Role Phone Donny Cooper MD Primary Care Provider +1 -[phone] Encounter Details Date Type Department Care Team (Late st Contact Info) Description 01/05/2024 Telephone Cardiology at [address] [address] Kanika Shell Social History Tobacco [...] AM EDT Hospital Encounter [place] [address] Arrived documented as of this encounter Visit Diagnoses Not on filedocumented in this encounter Care Teams Office System Analyst Relationship Specialty Start Date End Date Donny Cooper MD [address] [place] [address] PCP - General Family Medicine 02/25/19 documented as of this encounter
--- OUTSIDE RECORDS SUMMARY | 2024-06-16 08:10 | XMS_ITS | Encounter Summary ---
[place] [address] Care Team Providers Care Worm Farmer Name Role Phone Donny Cooper MD Primary Care Provider +1 -[phone] Encounter Details Date Type Department Care Team (Latest Contact Info) Description 02/02/2024 10:00 AM EDT - 02/02/2024 11:59 PM EDT Hospital Encounter Non-[place] [address] Discharge Disposition: Home Social History Tobacco Use [...] Hospital Encounter Non-[place] [address] Arrived documented as of this encounter Procedures [...] on filedocumented in this encounter Care Teams Worm Farmer Relationship Specialty Start Date End Date Donny Cooper MD [address] [place] [address] PCP - General Family Medicine 02/25/19 documented as of this encounter
--- OUTSIDE RECORDS SUMMARY | 2024-06-16 08:11 | XMS_ITS | Encounter Summary ---
Author Organization [facility] [place] [address] Care Team Providers Care Marionette Performer Name Role Phone Marques Martinez MD Primary Care Provider [phone] Encounter Details Date Type Department Care Team (Late st Contact Info) Description 10/09/2010 11:35 AM EDT - 10/09/2010 11:59 PM EDT Hospital Encounter XRay at [address] [place] [phone] Social History Tobacco Use Types Packs/Day Years [...] Hospital Encounter Non-Invasive Cardiology Lab [place] [address] Arrived documented as of this encounter Visit Diagnoses Not on filedocumented in this encounter Care Teams Marionette Performer Relationship Specialty Start Date End Date Marques Martinez MD [address] [place] [address] PCP - General 04/01/10 04/08/11 documented as of this encounter
--- OUTSIDE RECORDS SUMMARY | 2024-06-16 08:11 | XMS_ITS | Encounter Summary ---
[place] [address] Care Team Providers Care Systematic Theology Professor Name Role Phone Marques Martinez MD Primary Care Provider [phone] Encounter Details Date Type Department Care Team (Late st Contact Info) Description 10/03/2010 [place] [address] Marina Orosco, JADON Social History Tobacco Use [...] AM EDT Hospital Encounter Non[place] [address] Arrived documented as of this encounter Visit Diagnoses Not on filedocumented in this encounter Care Teams Systematic Theology Professor Relationship Specialty Start Date End Date Marques Martinez MD [address] [place] [address] PCP - General 04/01/10 04/08/11 documented as of this encounter
--- OUTSIDE RECORDS SUMMARY | 2024-06-16 08:11 | XMS_ITS | Encounter Summary ---
Author Organization [facility] [place] [address] Care Team Providers Care Cutter Down Name Role Phone Marques Martinez MD Primary Care Provider [phone] Encounter Details Date Type Department Care Team (Late st Contact Info) Description 03/30/2010 [place] [address] Javier Barajas MD [facility] [place] [address] Social History Tobacco Use Types Packs/Day Years [...] AM EDT Hospital Encounter Non-[place] [address] Arrived documented as of this encounter Procedures [...] Jairon Fenton MD CHEMISTRY ORDERABLES [facility] * (ABNORMAL) CREATININE, SERUM (04/01/2010 6:09 AM [...] Organization Address [facility] de Phone Number CERNER CHRISTOSENNIUM * BUN (04/01/2010 6:09 AM EST) Blood Urea Nitrogen 12 10 - 20 mg/dL CERNER MILLENNIUM Blood specimen (specimen) 04/01/2010 6:09 AM EST 04/01/2010 6:09 AM EST Jairon Fenton MD CHEMISTRY ORDERABLES Performing Organization Address [facility] de Phone Number CERNER MILLENNIUM [...] Organization Address [facility] de Phone Number CERNER MILLENNIUM [...] Organization Address [facility] Phone Number CERIVIS MILLENNIUM * ELECTROLYTE [...] Organization Address [facility] Co de Phone Number CERIVIS MILLENNIUM * CREATININE, SERUM (03/30/2010 6:05 PM EST) Creatinine 0.87 0.80 - 1.50 mg/dL [facility] Est Glomerular Filtration Rate >60 >=60 [facility] Comment: The National Kidney Disease Education [...] Nitrogen 18 10 - 20 mg/dL [facility] Blood specimen (specimen) 03/30/2010 6:05 PM EST 03/30/2010 6:13 PM EST Jairon Fenton MD CHEMISTRY ORDERABLES Performing Organization Address [facility] de Phone Number DEJA SEGOVIA * APTT (03/30/2010 6:05 PM EST) Partial Thromboplastin Time 26 25 - 37 sec CERNER CHRISTOSENNIUM Comment: Recommended therapeutic PTT range for full dose unfractionated heparin is 80-114 seconds. Blood specimen (specimen) 03/30/2010 6:05 PM EST 03/30/2010 6:14 PM EST Jairon Fenton MD HEMATOLOGY ORDERABLE S Performing Organization Address [facility] Phone Number DEJA SEGOVIA * PROTIME-INR (03/30/2010 6:05 PM EST) Prothrombin Time 14.2 12.3 - 14.7 sec [facility] Comment: [facility] Transfusion Committee Guidelines: INR less than 2.0, PTT less than OR equal to 43.5 seconds, or Fibrinogen greater than or equal to 100 mg/dl indicate adequate procoagulant activity for hemostasis in patients without underlying bleeding disorders. International Normalization Ratio 1.1 0.9 - 1.1 [facility] Blood specimen (specimen) 03/30/2010 6:05 PM EST 03/30/2010 6:14 PM EST Jairon Fenton MD HEMATOLOGY ORDERABLE S Performing Organization Address [facility] de Phone Number DEJA SEGOVIA [...] Deviation 44.2 35.0 - 46.[address] [facility] RDW coefficient of variation 13.1 10.9 - 14.4 % [facility] Mean Platelet Volume 10.6 9.0 - 12.0 fL [facility] Blood specimen (specimen) 03/30/2010 6:05 PM EST 03/30/2010 6:13 PM EST Jairon Fenton MD HEMATOLOGY ORDERABLE S Performing Organization Address [facility] Co de Phone Number [facility] * REFLEX LAB-ANTIBODY SCREEN (03/30/2010 3:17 PM EST) [facility] Ab Screen Interp Negative [facility] Expires at [id number] on: [id number] [facility] Blood specimen (specimen) 03/30/2010 3:17 PM EST 03/30/2010 3:17 PM EST Javier Barajas MD BLOOD BANK LAB ORDER PRECIOUS Performing Organization Address [facility] Co de Phone Number [facility] * REFLEX LAB-ABO/RH (03/30/2010 3:17 PM EST) [facility] ABORH Type A Pos [facility] Blood specimen (specimen) 03/30/2010 3:17 PM EST 03/30/2010 3:17 PM EST Javier Barajas MD BLOOD BANK LAB ORDER PRECIOUS Performing Organization Address [facility] Co de Phone Number [facility] * ELECTROLYTE PANEL (03/30/2010 2:50 PM EST) [facility] Sodium 135 135 - 145 mmol/L [facility] Potassium 4.3 3.5 - 5.0 mmol/L [facility] Comment: Please note: ??Patients with WBC [...] Organization Address [facility] Phone Number [facility] * BUN (03/30/2010 2:50 PM EST) Blood Urea Nitrogen 18 10 - 20 mg/dL [facility] Blood specimen (specimen) 03/30/2010 2:50 PM EST 03/30/2010 3:05 PM EST Javier Barajas MD CHEMISTRY ORDERABLES Performing Organization Address [facility] Phone Number [facility] * GLUCOSE, RANDOM (03/30/2010 2:50 PM EST) Glucose 95 <=199 mg/dL [facility] Comment:Diabetes: >=200 mg/d L plus symptoms Blood specimen (specimen) 03/30/2010 2:50 PM EST 03/30/2010 3:05 PM EST Javier Barajas MD CHEMISTRY ORDERABLES Performing Organization Address [facility] Phone Number [facility] * APTT (03/30/2010 2:50 PM EST) Partial Thromboplastin Time 25 25 - [address] [facility] Comment: Recommended therapeutic PTT range for full dose unfractionated heparin is 80-114 seconds. Blood specimen (specimen) 03/30/2010 2:50 PM EST 03/30/2010 3:06 PM EST Javier Barajas MD HEMATOLOGY ORDERABLE S Performing Organization Address [facility] Phone Number [facility] * PROTIME-INR (03/30/2010 2:50 PM EST) Prothrombin Time 14.1 12.3 - 14.[address] [facility] Comment: [facility] Transfusion Committee Guidelines: INR less than [...] filedocumented in this encounter Care Teams Cutter Down Relationship Specialty Start Date End Date Marques Martinez MD [address] [place] [address] PCP - General 04/01/10 04/08/11 documented as of this encounter
--- OUTSIDE RECORDS SUMMARY | 2024-06-16 08:11 | XMS_ITS | Encounter Summary ---
[place] [address] Lab Technician Name Role Phone Marques Martinez MD Primary Care Provider Encounter Details Date Type Department Care Team (Late st Contact Info) Description 09/11/2010 Orders Only [place] [address] Jairon Fenton MD Fracture of patella, left, [...] AM EDT Hospital Encounter Non-Invasive [place] [phone] Arrived documented as of this encounter Visit Diagnoses Diagnosis Fracture of patella, left, closed- Primary Closed fracture of patella documented in this encounter Care Teams Rd Lab Technician Relationship Specialty Start Date End Date Marques Martinez MD [address] [place] [address] PCP - General 04/01/10 04/08/11 documented as of this encounter
--- OUTSIDE RECORDS SUMMARY | 2024-06-16 08:11 | XMS_ITS | Encounter Summary ---
[place] [address] Care Team Providers Care Post Tronic Machine Operator Name Role Phone Marques Martinez MD Primary Care Provider Encounter Details Date Type Department Care Team (Late st Contact Info) Description 06/12/2010 2:10 PM EST Office [place] [phone] Jairon Fenton MD Discharge Disposition: Home Social [...] AM EDT Hospital Encounter Non-[place] [address] Arrived documented as of this encounter Visit Diagnoses Not on filedocumented in this encounter Care Teams Post Tronic Machine Operator Relationship Specialty Start Date End Date Marques Martinez MD [address] [place] [address] PCP - General 04/01/10 04/08/11 documented as of this encounter
--- OUTSIDE RECORDS SUMMARY | 2024-06-16 08:11 | XMS_ITS | Encounter Summary ---
Author Organization [facility] [place] [address] Care Team Providers Care Gun Striper Name Role Phone Marques Martinez MD Primary Care Provider [phone] Reason for Visit * Reason Comments Follow Up Fracture PATELLA FX DOI 03/23 10 Encounter Details Date Type Department Care Team (Late st Contact Info) Description 10/09/2010 12:40 PM EDT Office [place] [address] Jairon Gustafson MD Aubin, Christopher J PA [facility] [place] [address] Quadriceps tendon rupture (Primary Dx) Discharge Disposition: [...] AM EDT Hospital Encounter Non-Invasive [place] [address] Arrived documented as of this encounter Visit Diagnoses Diagnosis Quadriceps tendon rupture- Primary Sprain and strain of other specified sites of knee and leg documented in this encounter Care Teams Gun Striper Relationship Specialty Start Date End Date Marques Martinez MD [address] [place] [address] PCP - General 04/01/10 04/08/11 documented as of this encounter
--- OUTSIDE RECORDS SUMMARY | 2024-06-16 08:11 | XMS_ITS | Encounter Summary ---
[place] [address] Care Team Providers Care Emergency Veterinary Assistant Name Role Phone Marques Martinez MD Primary Care Provider [phone] Encounter Details Date Type Department Care Team (Late st Contact Info) Description 06/12/2010 2:00 PM EST Procedure visit [place] [address] Social History Tobacco Use Types Packs/Day Years [...] EDT Hospital Encounter Non-Invasive [place] [address] Arrived documented as of this encounter Visit Diagnoses Not on filedocumented in this encounter Care Teams Emergency Veterinary Assistant Relationship Specialty Start Date End Date Marques Martinez MD [address] [place] [address] PCP - General 04/01/10 04/08/11 documented as of this encounter
--- OUTSIDE RECORDS SUMMARY | 2024-06-16 08:11 | XMS_ITS | Encounter Summary ---
Author [place] [address] Care Team Providers Care Clinical Manager Home Care Name Role Phone Marques Martinez MD Primary Care Provider [phone] Encounter Details Date Type Department Care Team (Late st Contact Info) Description 05/01/2010 2:40 PM EST Procedure visit [place] [address] Social History Tobacco Use Types Packs/Day Years [...] AM EDT Hospital Encounter Non[place] [address] Arrived documented as of this encounter Visit Diagnoses Not on filedocumented in this encounter Care Teams Clinical Manager Home Care Relationship Specialty Start Date End Date Marques Martinez MD [address] [place] [address] PCP - General 04/01/10 04/08/11 documented as of this encounter
--- OUTSIDE RECORDS SUMMARY | 2024-06-16 08:11 | XMS_ITS | Encounter Summary ---
[place] [address] Care Team Providers Care Copy Center Associate Name Role Phone Marques Martinez MD Primary Care Provider Encounter Details Date Type Department Care Team (Late st Contact Info) Description 05/01/2010 3:10 PM EST Office [place] [phone] Jairon Fenton MD Discharge Disposition: Home Social [...] AM EDT Hospital Encounter Non-Invasive [place] [address] Arrived documented as of this encounter Visit Diagnoses Not on filedocumented in this encounter Care Teams Copy Center Associate Relationship Specialty Start Date End Date Marques Martinez MD [address] [place] [address] PCP - General 04/01/10 04/08/11 documented as of this encounter
[2024-06-28 08:13] VITALS: BP 129/51; PULSE 51
[2024-06-30 08:13] VITALS: BP 103/50; PULSE 71; O2SAT 98
== END 2024-07-01 23:59 | disposition home or self-care (01) ==
LOC: CR 08:07
PROVIDERS: PCP Family Medicine; Visit Provider Internal Medicine Cardiovascular Disease
DX: R69 Illness, unspecified (principal)

== ENCOUNTER 2024-07-20 02:06 | Outpatient (CLI) | payer MEDICARE, SELFPAY ==
--- OUTSIDE RECORDS SUMMARY | 2024-05-27 00:51 | XMS_ITS | Encounter Summary ---
Author Organization [facility] Address [address] [place] [address] Care Team Providers Care Contact Lens Lathe Operator Name Role Phone Unavailable Primary Care Provider Unavailabl e Encounter Details Date Type Department Care Team (Late st Contact Info) Description 05/06/2001 Results Only [facility] - Maple conversion [address] [place] [address] Hernandez Partida MD [address] [place] [phone] Social History Tobacco Use Types Packs/Day Years [...] submitted entirely in cassette (B). ??(Naty Caal)/[facility] End of Report DIVYA BERRY 05/06/2001 05/07/2001 9:2 5 EST us Hernandez Partida MD PATHOLOGY ORDERABLES Final Res ult DIVYA BERRY [address] [place] [address] documented in this encounter Visit Diagnoses Not on filedocumented in this encounter
--- OUTSIDE RECORDS SUMMARY | 2024-05-27 00:51 | XMS_ITS | Encounter Summary ---
Author Organization [facility] Address [address] [place] [address] Care Team Providers Care Burring Machine Operator Name Role Phone Clem Olvera MD Primary Care Provider [phone] Encounter Details Date Type Department Care Team (Late st Contact Info) Description 03/16/2019 Abstract [facility] [address] [place] [address] Ronal Avelar RN AV block, 2nd degree [...] Laterality Modality Device Narrative 03/24/2019 10:30 EST [facility] Card[facility] Device Visit Sap Pp Consultant: Autogeneration [employer] Device Type: HOISTING MACHINE OPERATOR-D Service: Remote ? 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
--- OUTSIDE RECORDS SUMMARY | 2024-05-27 00:51 | XMS_ITS | Encounter Summary ---
Author Organization [facility] Address [address] [place] [address] Care Team Providers Care Detention Attendant Name Role Phone Clem Olvrea MD Primary Care Provider [phone] Reason for Visit * Reason Onset Date Comments Appointment Related 10/23/2016 Check for fo llow up of pacer Encounter Details Date Type Department Care Team ([facility] st Contact Info) Description 10/23/2016 Telephone [facility] Cardiology - [address] [place] [address] Pacemaker, Pace Appointment Related (Check [...] Telephone Encounter - Pushpa Shay - 10/23/2016 8667 EDT Spoke with Mrs. Iglesias who stated that Nabil had his pacemaker checked in [place] where they are for the winter. They have some back and are being followed by Dr. Hurd at [facility]. documented in this encounter Plan of Treatment Not on file documented as of this encounter Visit Diagnoses Not on filedocumented in this encounter Care Teams Detention Attendant Relationship Specialty Start Date End Date Clem Olvera MD [address] [place] [address] PCP - General 12/18/15 documented as of this encounter
--- OUTSIDE RECORDS SUMMARY | 2024-05-27 00:51 | XMS_ITS | Encounter Summary ---
Author Organization [facility] Address [address] [place] [address] Care Team Providers Care Ethanol Maintenance Mechanic Name Role Phone Clem Olvera MD Primary Care Provider [phone] Reason for Referral * Cardiology (3 - [...] Expiration Date Visits Re quested Visits Authorized [id number] Closed 02/13/2016 1 1 Encounter Details Date Type Department Care Team (Latest Contact Info) Description 02/13/2016 Pre-Procedure Orders Encounter [facility] [address], [place] [address] Navdeep Hurd MD [address] [place] [address] [phone] ICD (implantable cardioverter-defibril lator) battery depletion (Primary [...] EDT Narrative 02/27/2016 15:17 EDT *Cardiology* [address] [place] [address] Lead Revision (Report amended ) Patient: Nabil Iglesias ?Study Date: ?02/27/2016 ? Accession #: ? [id number] : ? 1940 Referring: Clem Olvera Attending: [...] Venograms were performed in the MOORE and AUSTRIAN projections and a suitable mid-lateral LV branch [...] fascia. The leads were connected to a MARKET DEVELOPMENT TRAINER-D device. Device and Lead detail in table [...] Implanted device: Medtronic - Viva Quad XT MARKET DEVELOPMENT TRAINER-D DF4 - Serial number: [id number] Explanted device: Medtronic - Viva XT MARKET DEVELOPMENT TRAINER-D DF4 - Serial number: [id number]. LEAD PARAMETERS + + + + + [...] ? Medtronic ? Enpath ? information ?? 6643 ? [id number] ? Attain ? Epicardial ? Performa 4298 ? + + + + + + Serial number [id number] ? [id number] ?? [id number] ?? [id number] ? + + + + [...] Note Gulshan Drummond MD - 05/12/2016 *Cardiology* [address] [place] [address] Lead Revision (Report amended ) Patient: Nabil [...] therefore over an 0.35 glide wire a [place] OTW 6F ([facility]) 6 mm-40 [...] Venograms were performed in the MOORE and AUSTRIAN projections and a suitable mid-lateral LV branch [...] fascia. The leads were connected to a MARKET DEVELOPMENT TRAINER-D device. Device and Lead detail in table [...] topical skin adhesive. IMPLANTED HARDWARE: Implanted device: [employer] - Viva Quad XT MARKET DEVELOPMENT TRAINER-D DF4 - Serial number: [id number] Explanted device: Medtronic - Viva XT MARKET DEVELOPMENT TRAINER-D DF4 - Serial number: [id number]. LEAD PARAMETERS + + + + + [...] + + + + + Serial number [id number] + + + + + + [...] situ documented in this encounter Care Teams Ethanol Maintenance Mechanic Relationship Specialty Start Date End Date Clem Olvera MD [address] [place] [address] PCP - General 12/18/15 documented as of this encounter
--- OUTSIDE RECORDS SUMMARY | 2024-05-27 00:51 | XMS_ITS | Encounter Summary ---
[place] [address] Care Team Providers Care Medical Psychotherapist Name Role Phone Donny Cooper MD Primary Care Provider [phone] Encounter Details Date Type Department Care Team (Latest Contact Info) Description 05/02/2024 10:00 AM EST - 05/02/2024 11:59 PM [facility] Hospital Encounter Non-Invasive [place] [address] Discharge Disposition: Home Social History Tobacco Use [...] AM EDT Hospital Encounter Non-Invasive [place] [address] Arrived documented as of this [...] filedocumented in this encounter Care Teams Medical Psychotherapist Relationship Specialty Start Date End Date Donny Cooper MD [address] [place] [address] PCP - General Family Medicine 02/25/19 documented as of this encounter
--- OUTSIDE RECORDS SUMMARY | 2024-05-27 00:51 | XMS_ITS | Encounter Summary ---
Author Organization [facility] [place] [address] Care Team Providers Care Social Science Professor Name Role Phone Donny Cooper MD Primary Care Provider [phone] Encounter Details Date Type Department Care Team (Late st Contact Info) Description 07/26/2019 Notes Only Cardiology at [address] [address] Maged Arguelles MD [facility] [place] [address] Social History Tobacco Use Types Packs/Day Years [...] his Medtronic biventricular ICD is reviewed. Suboptimal CASE RESOURCE MANAGER at 84%. Normal device function. Awaiting Holter to assess PVC burden. Maged Arguelles MD [facility] Cardiac Electrophysiology 07/26/2019 9:04 AM documented in this encounter Plan of Treatment Upcoming Encounters Date Type Department Care Team (Late st Contact Info) Description 07/31/2024 10:00 AM EDT Hospital Encounter Non-Invasive [place] [address] Arrived documented as of this encounter Visit Diagnoses Not on filedocumented in this encounter Care Teams Social Science Professor Relationship Specialty Start Date End Date Donny Cooper MD [address] [place] [address] PCP - General Family Medicine 02/25/19 documented as of this encounter
--- OUTSIDE RECORDS SUMMARY | 2024-05-27 00:51 | XMS_ITS | Encounter Summary ---
Author Organization [facility] [place] [place] [address] Care Team Providers Care Offset Second Press Operator Name Role Phone Donny Cooper MD Primary Care Provider [phone] Encounter Details Date Type Department Care Team (Latest Contact Info) Description 12/18/2020 11:57 AM EDT - 12/18/2020 11:59 PM EDT Hospital Encounter Non-[place] [address] Maged Arguelles MD [facility] [place] [address] Cardiomyopathy, primary Discharge Disposition: Home Social History [...] AM EDT Hospital Encounter Non-Invasive [place] [address] Arrived documented as of this encounter Procedures Procedure Name Priority Date/Time Associated Diagnosis Comments ICD INTERROGATION 3 MONTH Routine 12/18/2020 12:00 PM EDT Cardiomyopathy, primary documented in this encounter Results * ICD INTERROGATION 3 MONTH (12/18/2020 12:00 PM EDT) Anatomical Region Laterality Modality Other Narrative 12/23/2020 11:08 PM EDT MDT CURATORIAL ASSISTANT-D remote reviewed. Normal device function. Inadequate CURATORIAL ASSISTANT at 80%. Maged Arguelles MD [facility] Cardiac Electrophysiology 12/23/2020 11:06 PM Maged Arguelles MD IMPLANTABLE CARDIAC DEVICE documented in this encounter Visit Diagnoses Diagnosis Cardiomyopathy, primary Other primary cardiomyopathies documented in this encounter Care Teams Offset Second Press Operator Relationship Specialty Start Date End Date Donny Cooper MD [address] [facility] [address] [place] [address] PCP - General Family Medicine 02/25/19 documented as of this encounter
--- OUTSIDE RECORDS SUMMARY | 2024-05-27 00:51 | XMS_ITS | Encounter Summary ---
[place] [address] Care Team Providers Care Principal Embedded Software Engineer Name Role Phone Donny Cooper MD Primary Care Provider [phone] Encounter Details Date Type Department Care Team (Latest Contact Info) Description 04/08/2022 10:00 AM EST - 04/08/2022 11:59 PM [facility] Hospital Encounter Non[place] [address] Discharge Disposition: Home Social History Tobacco Use [...] AM EDT Hospital Encounter Non[place] [address] Arrived documented as of this [...] on filedocumented in this encounter Care Teams Principal Embedded Software Engineer Relationship Specialty Start Date End Date Donny Cooper MD [address] [place] [address] PCP - General Family Medicine 02/25/19 documented as of this encounter
--- OUTSIDE RECORDS SUMMARY | 2024-05-27 00:51 | XMS_ITS | Encounter Summary ---
Author Organization [facility] Address [address] [place] [address] Care Team Providers Care Medication Technician Name Role Phone Clem Olvera MD Primary Care Provider [phone] Encounter Details Date Type Department Care Team (Latest Contact Info) Description 12/20/2015 10:52 EDT - 12/20/2015 23:52 EDT Hospital Encounter [facility] Cardiovascular Unit [address] [place] [address] Navdeep Hurd MD [address] [place] [address] [address] Discharge Disposition: Home or Self [...] no need to beNPO or have a wheelchair driver. However, his will be accompanying him. They [place] someone to the airport [place] 1000 and then will come here and check-in around 1145. He agrees to have a shower. documented in this encounter Procedure Notes * Fantasma Dhillon MD - 12/20/2015 1356 EDT IR Brief Procedure Note Attending: Leo Planting Machine Operator: Alejo Pre-op Dx: Arrhythmia, need [...] 12/19 documented in this encounter Care Teams Medication Technician Relationship Specialty Start Date End Date Clem Olvera MD [address] [place] [address] PCP - General 12/18/15 documented as of this encounter
--- OUTSIDE RECORDS SUMMARY | 2024-05-27 00:51 | XMS_ITS | Encounter Summary ---
[place] [address] Care Team Providers Care Frontend Engineer Name Role Phone Donny Cooper MD Primary Care Provider [phone] Encounter Details Date Type Department Care Team (Latest Contact Info) Description 11/04/2023 10:00 AM EDT - 11/04/2023 11:59 PM EDT Hospital Encounter Non-[place] [address] Discharge Disposition: Home Social History Tobacco Use [...] AM EDT Hospital Encounter Non-[place]vasive [place] [address] Arrived documented as of this encounter Procedures [...] on filedocumented in this encounter Care Teams Frontend Engineer Relationship Specialty Start Date End Date Donny Cooper MD [address] [place] [address] PCP - General Family Medicine 02/25/19 documented as of this encounter
--- OUTSIDE RECORDS SUMMARY | 2024-05-27 00:51 | XMS_ITS | Encounter Summary ---
Author Organization [place] [address] Care Team Providers Care Parking Lot Signaler Name Role Phone Donny Cooper MD Primary Care Provider [phone] Encounter Details Date Type Department Care Team (Latest Contact Info) Description 10/03/2022 10:00 AM EDT Office Visit Cardiology at [address] [address] [place], [place] [facility] [place] [address] Cardiomyopathy, primary; Presence of cardiac resynchronization therapy defibrillator (WELLNESS DIRECTOR-D); Diaphragmatic stimulation by cardiac pacemaker, initial encounter [...] original note were not included. Cardiac Device WELLNESS DIRECTOR-D Programming Evaluation Nabil Iglesias [id number] 10/03/2022 History: Mr. Iglesias is a pleasant [...] OFF Pacing Mode: DDD 60/130/120 Presenting EGMs: -BP/-LINKING MACHINE OPERATOR Underlying Rhythm: CHB with no [...] AM EDT Hospital Encounter Non-[place] [address] Arrived documented as of this encounter Procedures Procedure Name Priority Date/Time Associated Diagnosis Comments EKG 12-LEAD Routine 10/03/2022 11:00 AM EDT Cardiomyopathy, primary Presence of cardiac resynchronization therapy defibrillator (WELLNESS DIRECTOR-D) Diaphragmatic stimulation by cardiac pacemaker, initial encounter documented in this encounter Results * EKG 12 Lead (10/03/2022 11:00 AM EDT) Ventricular rate 74 BPM MUSE SYSTEM Atrial Rate 74 BPM MUSE SYSTEM P-R Interval 154 ms MUSE SYSTEM QRS Duration 162 ms MUSE SYSTEM Q-T Interval 470 ms MUSE SYSTEM QTC Calculated (Bezet) 521 ms MUSE SYSTEM Calculated P [place] 30 degrees MUSE SYSTEM Calculated R [place] -98 degrees MUSE SYSTEM Calculated T [place] 41 degrees MUSE SYSTEM INTERPRETATION Atrial-sense d [...] cardiomyopathies Presence of cardiac resynchronization therapy defibrillator (WELLNESS DIRECTOR-D) Diaphragmatic stimulation by cardiac pacemaker, initial encounter documented in this encounter Care Teams Parking Lot Signaler Relationship Specialty Start Date End Date Donny Cooper MD [address] [place] [address] PCP - General Family Medicine 02/25/19 documented as of this encounter
--- OUTSIDE RECORDS SUMMARY | 2024-05-27 00:51 | XMS_ITS | Encounter Summary ---
Author Organization [facility] [place] [address] Care Team Providers Care Criminal Research Specialist Name Role Phone Donny Cooper MD Primary Care Provider [phone] Encounter Details Date Type Department Care Team (Latest Contact Info) Description 06/13/2020 12:35 PM EST - 06/13/2020 11:59 PM EST Hospital Encounter Non-[place]vasive [place] [address] Alber Seals MD [facility] [place] [address] Cardiomyopathy, primary Discharge Disposition: Home Social History [...] EDT Hospital Encounter Non-Invasive [place] [address] Arrived documented as of this encounter Procedures Procedure Name Priority Date/Time Associated Diagnosis Comments ICD INTERROGATION 3 MONTH Routine 06/13/2020 12:36 PM EST Cardiomyopathy, primary documented in this encounter Results * ICD INTERROGATION 3 MONTH (06/13/2020 12:36 PM EST) Anatomical Region Laterality Modality Other Narrative 06/14/2020 10:38 AM EST Cardiac Device Remote Monitoring Report Summary Medtronic Zykis 06/14/20 Device: QA ANALYST-D Model: VIVA QUAD Battery: 2.96 v, estimated longevity 3 years, 11 months Pacing percentage: 78% ventricular paced Events: The presenting rhythm is atrial paced with biventricular pacing and frequent ventricular premature contractions No significant arrhythmias Impression Normal device function; suboptimal QA ANALYST pacing likely secondary to frequent PVCs. Should consider in clinic follow-up for further evaluation Follow Up As per schedule - in-clinic and remote ALBER SEALS MD Alber Seals MD IMPLANTABLE CARDIAC DEVICE documented in this encounter Visit Diagnoses Diagnosis Cardiomyopathy, primary Other primary cardiomyopathies documented in this encounter Care Teams Criminal Research Specialist Relationship Specialty Start Date End Date Donny Cooper MD [address] [place] [address] PCP - General Family Medicine 02/25/19 documented as of this encounter
--- OUTSIDE RECORDS SUMMARY | 2024-05-27 00:51 | XMS_ITS | Encounter Summary ---
[place] [address] Care Team Providers Care Narrow Gauge Operator Name Role Phone Donny Cooper MD Primary Care Provider [phone] Encounter Details Date Type Department Care Team (Late st Contact Info) Description 12/28/2023 Notes Only Cardiology at [address] [phone] Kanika Shell Social History Tobacco Use Types [...] AM EDT Hospital Encounter Non[place] [address] Arrived documented as of this encounter Visit Diagnoses Not on filedocumented in this encounter Care Teams Narrow Gauge Operator Relationship Specialty Start Date End Date Donny Cooper MD [address] [place] [address] [address] [facility] [address] [place] [address] PCP - General Family Medicine 02/25/19 documented as of this encounter
--- OUTSIDE RECORDS SUMMARY | 2024-05-27 00:51 | XMS_ITS | Encounter Summary ---
[place] [address] Care Team Providers Care Manufacturing Electrician Name Role Phone Donny Cooper MD Primary Care Provider [phone] Encounter Details Date Type Department Care Team (Latest Contact Info) Description 02/02/2024 10:00 AM EDT - 02/02/2024 11:59 PM EDT Hospital Encounter [place] [address] Discharge Disposition: Home Social History Tobacco Use [...] Hospital Encounter Non-[place] [address] Arrived documented as of this encounter Procedures [...] filedocumented in this encounter Care Teams Manufacturing Electrician Relationship Specialty Start Date End Date Donny Cooper MD [address] [place] [address] PCP - General Family Medicine 02/25/19 documented as of this encounter
--- OUTSIDE RECORDS SUMMARY | 2024-05-27 00:51 | XMS_ITS | Encounter Summary ---
[place] [address] Care Team Providers Care Engineer Design And Construction Name Role Phone Donny Cooper MD Primary Care Provider [phone] Encounter Details Date Type Department Care Team (Latest Contact Info) Description 04/03/2023 10:00 AM EST - 04/03/2023 11:59 PM [facility] Hospital Encounter Non-[place]vasive [place] [address] Discharge Disposition: Home Social History Tobacco Use [...] AM EDT Hospital Encounter Non-[place]vasive [place] [address] Arrived documented as of [...] on filedocumented in this encounter Care Teams Engineer Design And Construction Relationship Specialty Start Date End Date Donny Cooper MD [address] [place] [address] PCP - General Family Medicine 02/25/19 documented as of this encounter
--- OUTSIDE RECORDS SUMMARY | 2024-05-27 00:51 | XMS_ITS | Encounter Summary ---
[place] [address] Care Team Providers Care Hose Stripper Name Role Phone Donny Cooper MD Primary Care Provider [phone] Encounter Details Date Type Department Care Team [...] EDT Hospital Encounter Non-Invasive [place] [address] Arrived documented as of this encounter Visit Diagnoses Not on filedocumented in this encounter Care Teams Hose Stripper Relationship Specialty Start Date End Date Donny Cooper MD [address] [place] [address] PCP - General Family Medicine 02/25/19 documented as of this encounter
--- OUTSIDE RECORDS SUMMARY | 2024-05-27 00:51 | XMS_ITS | Clinical Summary ---
Author Organization [facility] [place] [address] Care Team Providers Care Clinical Laboratory Aide Name Role Phone Donny Cooper MD Primary Care Provider [phone] Allergies No known active allergies Medications Medication [...] PM EST Hospital Encounter Non-[place] [address] Discharge Disposition: Home 03/18/2024 Notes Only Cardiology at [address] [address] Marina Caballero APRN from Last [...] AM EDT Hospital Encounter [place] [address] Arrived Health Maintenance Due Date Last Done [...] 03/06/2006, 02/24/2005 Medical Devices Implanted Type Area Placement Specialist Device Identifier Shelf Expiration Date Model / Serial / Lot Mdt : [id number] : [id number] Implanted: (Quantity not on file) Cardiac Resynchronization Therapy - Defibrillator Chest Medtronic - [id number] / [id number] / Procedures Procedure Name Priority Date/Time Associated Diagnosis Comments PRO ICD INTERROGATION REMOTE UP TO 90 DAYS Routine 03/08/2024 6:26 AM EST from Last 3 Months Results * Cardiac Device Check - Remote (03/08/2024 6:26 AM EST) Anatomical Region Laterality Modality Other 03/08/2024 6:26 AM EST Alber Seals MD IMPLANTABLE CARDIAC DEVICE from Last 3 Months Care Teams Clinical Laboratory Aide Relationship Specialty Start Date End Date Donny Cooper MD [address] [place], [place] [id number] PCP - General Family Medicine 02/25/19
--- OUTSIDE RECORDS SUMMARY | 2024-05-27 00:51 | XMS_ITS | Encounter Summary ---
Author Organization [facility] Address [address] [place] [address] Care Team Providers Care Early Childhood Associate Name Role Phone Clem Olvera MD Primary Care Provider [phone] Reason for Visit * Reason Onset Date Comments Other 04/04/2019 Transfer request for Pacer Care at [facility] Encounter Details Date Type Department Care Team (Late st Contact Info) Description 04/04/2019 Telephone [facility] [address] [place] [address] Giselle Hill, PATCHING MACHINE OPERATOR Other (Transfer request for Pacer Care at [facility]) Social History Tobacco Use Types Packs/Day Years [...] 04/04/2019 1503 EST I went into the [employer] Website and released pt to [facility] Pacer Clinic as requested. * Telephone Encounter - Suze Reynoso - 04/04/2019 1342 EST PT WILL BE HAVING HIS PACER CARE DONE AT [facility], PLEASE RELEASE HIS REMOTE MONITORING SO THAT THEY CAN PICK IT UP documented in this encounter Plan of Treatment Not on file documented as of this encounter Visit Diagnoses Not on filedocumented in this encounter Care Teams Early Childhood Associate Relationship Specialty Start Date End Date Clem Olvera MD [address] [place] [address] PCP - General 12/18/15 documented as of this encounter
--- OUTSIDE RECORDS SUMMARY | 2024-05-27 00:51 | XMS_ITS | Encounter Summary ---
Author Organization [facility] Address [address] [place] [address] Care Team Providers Care Awake Overnight Monitor Name Role Phone Unknown, Provider Primary Care Provider Clem Alcala MD Primary Care Provider [phone] Encounter Details Date Type Department Care Team (Late st Contact Info) Description 11/29/2015 Pre-Procedure Orders Encounter [facility] [address] [place], [place] [address] Navdeep Hurd MD [address] [place] [address] [address] Social History Tobacco Use Types [...] Ferdinand Nabil Boo. Attending: Dr. Dean Bailey Research Chemical Engineer: Dr. Fantasma Dhillon History/indication: The patient [...] Patient: Nabil Streeter Attending: Dr. Dean Bailey Research Chemical Engineer: Dr. Fantasma Dhillon History/indication: The patient [...] on filedocumented in this encounter Care Teams Awake Overnight Monitor Relationship Specialty Start Date End Date Unknown, Provider, PCP - General 12/06/12 12/17/15 Clem Olvera MD [address] [place] [address] PCP - General 12/18/15 documented as of this encounter
--- OUTSIDE RECORDS SUMMARY | 2024-05-27 00:51 | XMS_ITS | Encounter Summary ---
[place] [address] Care Team Providers Care Mortgage Branch Manager Name Role Phone Donny Cooper MD Primary Care Provider [phone] Encounter Details Date Type Department Care Team (Late st Contact Info) Description 03/17/2019 Telephone Cardiology at [address] [address] Sheri Quinn LNA Social [...] 11:46 AM EST Medication list reviewed with [facility] list. Please review with patient at next clinic visit. documented in this encounter Plan of Treatment Upcoming Encounters Date Type Department Care Team (Late st Contact Info) Description 07/31/2024 10:00 AM EDT Hospital Encounter Non-[place] [address] Arrived documented as of this encounter Visit Diagnoses Not on filedocumented in this encounter Care Teams Mortgage Branch Manager Relationship Specialty Start Date End Date Donny Cooper MD [address] [place] [address] PCP - General Family Medicine 02/25/19 documented as of this encounter
--- OUTSIDE RECORDS SUMMARY | 2024-05-27 00:51 | XMS_ITS | Encounter Summary ---
Author Organization [facility] Address [address] [place] [address] Care Team Providers Care Overlock Collar Setter Name Role Phone Clem Olvera MD Primary Care Provider [phone] Reason for Referral * (Routine) - Closed [...] call the Cardiac Arrhythmia Service at [facility] at or , extension [phone]. For any scheduling of appointments, please call [phone] or , extension [phone]. . * (Routine) - Closed Specialty Diagnoses [...] Expiration Date V isits Requested Visits Authorized [id number] Closed Specialty Services Required 02/27/2016 1 1 [...] scheduled at your first appointment. - [facility] Cardiology is located at [address] [facility] in [place] -Clinics are also held in [facility], [place], [place] and [facility]. If you live in those areas, we will make arrangements for follow-up appointments in one of those clinics.. Encounter Details Date Type Department Care Team (Late st Contact Info) Description 02/27/2016 6:30 EDT - 02/28/2016 13:39 EDT Hospital Encounter [facility] Cardiac/Telemetry Unit [address] [place] [address] Gulshan Drummond MD PhD [address] [facility], Level 1 [place] [phone] Gulshan Montoya Sa, MD [address] [facility] [address] [place] [phone] AICD lead malfunction, subsequent encounter; ICD [...] around May 2013, when he was in [place], [place]. This triggered major cardiac workup including [...] then underwent a device upgrade to a GANG MOWER OPERATOR-D device with biventricular pacing for his [...] at [facility] in [place]. Continued high pacing threshold on the epicardial [...] and plans to follow up with his Bone Plant Supervisor in [place] in 6-8 weeks for which he will arrange once he has arrived in [place]. He has been provided with the implant [...] Follow Up Appointments Scheduled with [facility] Appointments Outside of [facility] We Will Schedule Studies We Will Schedule Appointments We Recommend but have not been Scheduled Beatrice De La Garza NP 02/27/2016 10:59 Cosigned by Gulshan Montoya Sa, MD at 02/28/2016 15:19 EDT Associated attestation - Gulshan Montoya Sa, MD - 02/28/2016 1099 EDT Attending Attestation: I saw and evaluated the patient. I discussed the case with the resident/TAX PROFESSIONAL/fellow and agree with the findings and plan as documented above. Gulshan bullock Sa, MD Cardiac Electrophysiology documented in this encounter Discharge Instructions * Appointments* Baetrice De La Garza NP - 02/27/2016 11:47 [...] Notes * Lou Alfonso, JADON - 02/28/2016 9577 EDT Pt awaiting discharge. IV and tele [...] agree to review this medication with his casserole preparer and plans to remain on his home dosing, which was in the morning. He received dose this am. Ptleft via wheelchair with . * Jennifer Beatrice - 02/28/2016 1329 EDT Brief visit with patient and as they were being discharged. Patient states he is independent in self care and home management. He feels well supported by friends and neighbors. Patient has Medicare and [facility]. Pharmacy is [facility]. No needs identified at time of discharge. will provide transportation. Beatrice Rodriguez RN Case Manager #[phone] documented in this encounter H&P Notes * [...] around May 2013, when he was in [place], [place]. This triggered major cardiac workup including [...] point, his device was upgraded to a GANG MOWER OPERATOR-D device with biventricular pacing. By the [...] at [facility] in [place]. Continued high pacing threshold on the epicardial LV lead has caused a very rapid battery depletion. Dr. David Adams in [place] recommended against lead extraction and reimplant as [...] Pacemaker insertion 2002 2013 second pacemaker [facility] Social History Family History Social History Substance Use Topics ??? Smoking status: Former Smoker Years: 35.00 Quit date: 1989 ??? Smokeless tobacco: Not on file ??? Alcohol use 6.6 oz/week 6 Cans of beer, 5 Glasses of wine per week , lives with , retired. Spends leong in [place]. Spends the chery in [place], [place]. Quit smoking in 1990. Has 2 [...] point, his device was upgraded to a GANG MOWER OPERATOR-D device with biventricular pacing with a [...] Care - Mady Bruno RN - 02/27/2016 3160 EDT Problem: Daily Care Plan Goals Goal: [...] 03/12/2016 12:4 3 EST us Scan 2 Animal Technician PROCEDURE/MINOR SURGICAL OR DERABLES Final Result * ECG REPORT - SCANNED (03/04/2016 14:06 EDT) 03/04/2016 14:0 6 EDT us Scan 2 Animal Technician PROCEDURE/MINOR SURGICAL OR DERABLES Final Result * ECG REPORT - SCANNED (03/04/2016 14:06 EDT) 03/04/2016 14:0 6 EDT us Scan 2 Animal Technician PROCEDURE/MINOR SURGICAL OR DERABLES Final Result * IMPLANT RECORD - SCANNED (03/04/2016 14:06 EDT) 03/04/2016 14:0 6 EDT us Scan 2 Animal Technician PROCEDURE/MINOR SURGICAL OR DERABLES Final Result * ECG REPORT - SCANNED (03/01/2016 8:58 EDT) 03/01/2016 8:58 EDT us Scan 2 Animal Technician PROCEDURE/MINOR SURGICAL OR DERABLES Final Result * ECG REPORT - SCANNED (03/01/2016 8:58 EDT) 03/01/2016 8:58 EDT us Scan 2 Animal Technician PROCEDURE/MINOR SURGICAL OR DERABLES Final Result * [...] 9.84 4.0 - 10.4 K/cmm 02/28/2016 6:26 [facility] RBC 4.42 4.36 - 5.78 M/cmm 02/28/2016 6:26 [facility] Hemoglobin 14.2 13.8 - 17.3 gm/dl 02/28/2016 6:26 [facility] HCT 40.9 39.5 - 50.2 % 02/28/2016 6:26 [facility] MCV 93 81 - 95 fl 02/28/2016 6:26 [facility] MCH 32.1 27.6 - 33.0 pg 02/28/2016 6:26 [facility] MCHC 34.7 32.8 - 36.4 gm/dl 02/28/2016 6:26 [facility] RDW-CV 13.1 11.8 - 14.1 % 02/28/2016 6:26 EDT [facility] RDW-SD 44.6 36.5 - 45.9 fl 02/28/2016 6:26 EDT [facility] PLT 151 141 - 377 K/cmm 02/28/2016 6:26 EDT [facility] MPV 11.2 9.5 - 12.7 fl 02/28/2016 6:26 EDT [facility] Blood specimen (specimen) BLOOD SPECIMEN / Unknown 02/28/2016 5:44 EDT 02/28/2016 6:13 EDT Beatrice De La Garza TAX PROFESSIONAL HEMATOLOGY & PF4 ORDE RABLES Final Result Performing Organization Address City/[facility] Co de Phone Number [facility] [address] [place] [address] * (ABNORMAL) CREATININE (02/28/2016 5:44 EDT) Creatinine 0.65(L) 0.66 - 1.25 mg/dl 02/28/2016 6:48 EDT [facility] GFR, Calculated 95 >60 ml/min/1.7 3m2 02/28/2016 6:48 EDT [facility] Comment: eGFR calculated using CKD-EPI equation for non Americans. Multiply eGFR by 1.16 for Americans. Blood specimen (specimen) BLOOD SPECIMEN / Unknown 02/28/2016 5:44 EDT 02/28/2016 6:13 EDT Beatrice De La Garza NP CHEMISTRY & BLOOD GAS ORDERABLES Final Result Performing Organization Address City/[facility]/ZIP Co de Phone Number [facility] [address] [place] [address] * BUN (02/28/2016 5:44 EDT) BUN 14 10 - 26 mg/dl 02/28/2016 6:48 EDT [facility] Blood specimen (specimen) BLOOD SPECIMEN / Unknown 02/28/2016 5:44 EDT 02/28/2016 6:13 EDT Beatrice De La Garza TAX PROFESSIONAL CHEMISTRY & BLOOD GAS ORDERABLES Final Result Performing Organization Address [facility] Co de Phone Number [facility] [address] [place] [address] * ELECTROLYTES (02/28/2016 5:44 EDT) Sodium 138 136 - 145 mEq/L 02/28/2016 6:48 EDT [facility] Potassium 4.7 3.5 - 5.0 mEq/L 02/28/2016 6:48 EDT [facility] Chloride 104 96 - 110 mEq/L 02/28/2016 6:48 EDT [facility] CO2 25 22 - 32 mEq/L 02/28/2016 6:48 EDT [facility] Comment:Note new reference r hong 02/19/16 Blood specimen (specimen) BLOOD SPECIMEN / Unknown 02/28/2016 5:44 EDT 02/28/2016 6:13 EDT Result [facility] Beatrice De La Garza NP CHEMISTRY & BLOOD GAS ORDERABLES Final Result Performing Organization Address [facility] Co de Phone Number [facility] [address] [place] [address] * PORTABLE CHEST 1 VIEW (02/27/2016 12:46 [...] 12:41 EDT) 02/27/2016 12:4 1 EDT Narrative [facility] - 02/28/2016 8:57 EDT ? [facility] ? Test Date: ?2016-02-27 Pat Name: ? NABIL IGLESIAS ? Department: ?? [facility] 5 ? Room: ? MW514 Gender: ? M ?Call Center Analyst: ?? [id number] : ?1940 ? Requested By: KAIN Gallagher Order Number: [id number] ? Julia WRIGHT: ?? BRAYAN CUENCA MD ? Measurements Intervals ?[place] ? Rate: ? 63 ? P: ?15 PA: ? 159 ?QRS: ?234 QRSD: ? 156 ?T: ?15 QT: ? 479 ? QTc: ?493 ? Interpretive Statements ELECTRONIC VENTRICULAR PACEMAKER Compared to ECG 02/27/2016 08:10:34 No significant changes I reviewed the tracing and have either agreed or edited the findings in this report. Electronically Signed On 02-28-16 08:57:02 EDT by BRAYAN CUENCA MD. Procedure Note Brayan Cuenca MD - 02/28/2016 [facility] Test Date: 2016-02-27 Pat Name: NABIL IGLESIAS Department: [place] [address] Room: [facility] Gender: M Call Center Analyst: [id number] : 1940 Requested By: KAIN Gallagher Order Number: [id number] Reading MD: BRAYAN CUENCA MD Measurements Intervals [place] Rate: 63 P: 15 PA: 159 QRS: 234 QRSD: 156 T: 15 [...] Result Performing Organization Address [facility] Co de Phone Number [facility] E[facility] * PROTIME (02/27/2016 8:45 EDT) Pro Time 12.3 10.3 - 13.1 secs 02/27/2016 9:10 EDT [facility] Comment: New prothrombin t josue range effective 01/29/16 I.N.R. 1.1 0.9 - 1.1 Ratio 02/27/2016 9:10 EDT [facility] Comment: Moderate Intensity Coumadin INR = 2.0-3.0 Adjustments in anticoagulant therapy dose should be based upon the INR and NOT the Pro Time. Blood specimen (specimen) BLOOD SPECIMEN / Unknown 02/27/2016 8:45 EDT 02/27/2016 8:54 EDT us Gulshan Drummond MD PhD HEMATOLOGY & P F4 ORDERABLES Final Result Performing Organization Address [facility] Co de Phone Number [facility] [address] [place] [address] * HEMAGRAM (02/27/2016 8:45 EDT) WBC 6.47 4.0 - 10.4 K/cmm 02/27/2016 8:57 EDT [facility] RBC 4.51 4.36 - 5.78 M/cmm 02/27/2016 8:57 T [facility] Hemoglobin 14.7 13.8 - 17.3 gm/dl 02/27/2016 8:57 EDT [facility] HCT 41.7 39.5 - 50.2 % 02/27/2016 8:57 EDT [facility] MCV 93 81 - 95 fl 02/27/2016 8:57 EDT [facility] MCH 32.6 27.6 - 33.0 pg 02/27/2016 8:57 EDT [facility] MCHC 35.3 32.8 - 36.4 gm/dl 02/27/2016 8:57 EDT [facility] RDW-CV 13.1 11.8 - 14.1 % 02/27/2016 8:57 EDT [facility] RDW-SD 44.0 36.5 - 45.9 fl 02/27/2016 8:57 EDT [facility] PLT 176 141 - 377 K/cmm 02/27/2016 8:57 EDT [facility] MPV 10.7 9.5 - 12.7 fl 02/27/2016 8:57 EDT [facility] Blood specimen (specimen) BLOOD SPECIMEN / Unknown 02/27/2016 8:45 EDT 02/27/2016 8:54 EDT us Gulshan Drummond MD PhD HEMATOLOGY & P F4 ORDERABLES Final Result Performing Organization Address City/[facility] Co de Phone Number [facility] [address] [place] [address] * ELECTROLYTES (02/27/2016 8:45 EDT) Sodium 142 136 - 145 mEq/L 02/27/2016 9:13 T [facility] Potassium 4.7 3.5 - 5.0 mEq/L 02/27/2016 9:13 T [facility] Chloride 103 96 - 110 mEq/L 02/27/2016 9:13 EDT [facility] CO2 27 22 - 32 mEq/L 02/27/2016 9:13 T [facility] Comment:Note new reference r hong 02/19/16 Blood specimen (specimen) BLOOD SPECIMEN / Unknown 02/27/2016 8:45 EDT 02/27/2016 8:54 EDT us Gulshan Drummond MD PhD CHEMISTRY & BL OOD GAS ORDERABLES Final Result Performing Organization Address City/[facility]/ZIP Co de Phone Number [facility] [address] [place] [address] * CREATININE (02/27/2016 8:45 EDT) Creatinine 0.69 0.66 - 1.25 mg/dl 02/27/2016 9:13 EDT [facility] GFR, Calculated 93 >60 ml/min/1.7 3m2 02/27/2016 9:13 EDT [facility] Comment: eGFR calculated using CKD-EPI equation for non Americans. Multiply eGFR by 1.16 for Americans. Blood specimen (specimen) BLOOD SPECIMEN / Unknown 02/27/2016 8:45 EDT 02/27/2016 8:54 EDT us Gulshan Drummond MD PhD CHEMISTRY & BL OOD GAS ORDERABLES Final Result Performing Organization Address City/[facility] Co de Phone Number [facility] [address] [place] [address] * BUN (02/27/2016 8:45 EDT) BUN 17 10 - 26 mg/dl 02/27/2016 9:13 EDT [facility] Blood specimen (specimen) BLOOD SPECIMEN / Unknown 02/27/2016 8:45 EDT 02/27/2016 8:54 EDT us Gulshan Drummond MD PhD CHEMISTRY & BL OOD GAS ORDERABLES Final Result Performing Organization Address City/[facility] Co de Phone Number [facility] [address] [place] [address] * EKG 12-LEAD (02/27/2016 8:08 EDT) 02/27/2016 8:08 EDT Narrative [facility] E[facility] - 02/28/2016 9:01 EDT ? [facility] ? Test Date: ?2016-02-27 Pat Name: ? NABIL IGLESIAS ? Department: ?? [facility] ? Room: ? [id number] Gender: ? M ?Call Center Analyst: ?? [id number] : ?1940 ? Requested By: MARCIA Boo Order Number: [id number] ? Reading MD: ?? BRAYAN CUENCA MD ? Measurements Intervals ?[place] ? Rate: ? 69 ? P: ?147 PA: ? 134 ?QRS: ?-67 QRSD: ? 160 [...] Note Brayan Cuenca MD - 02/28/2016 [facility] Test Date: 2016-02-27 Pat Name: NABIL IGLESIAS Department: [facility] Room: PM1105 Gender: M Call Center Analyst: [id number] : 1940 Requested By: MARCIA Boo Order Number: [id number] Reading MD: BRAYAN CUENCA MD Measurements Intervals [place] Rate: 69 P: 147 PA: 134 QRS: -67 QRSD: 160 T: -59 QT: 434 QTc: 467 Interpretive Statements ELECTRONIC ATRIAL PACEMAKER ELECTRONIC VENTRICULAR PACEMAKER Compared to ECG 02/27/2016 08:08:46 No significant changes I reviewed the tracing and have either agreed or edited the findings inthis report. Electronically Signed On 02-28-16 09:01:04 EDT by BRAYAN BEEBE. Navdeep Hurd MD CARDIAC ECG ORDERABLES Final Result [facility] EKG documented in this [...] Reason: Other - Comment: pt already took HEEL SEAT SANDER, takes other meds at HS) 921 (Given [...] Reason: Other - Comment: pt already took HEEL SEAT SANDER, takes other meds at HS)210 (Given - Provider: Mady Bruno, JADON) spironolactone (ALDACTONE) tablet 12.5 mg 12.5 mg, oral, DAILY, First dose on Thu02/27/16 at 1245, Until Discontinued, Routine 1306 (Not Given - Provider: Nneka Stuart RN - Reason: Other - Comment: pt already took HEEL SEAT SANDER, takes other meds at HS)210 (Given - Provider: Mady Bruno RN) tamsulosin (FLOMAX) capsule 0.4 mg 0.4 mg, oral, DAILY, First dose on Thu02/27/16 at 1245, Until Discontinued, Routine 1306 (Not Given - Provider: Nneka Stuart RN - Reason: Other - Comment: pt already took HEEL SEAT SANDER, takes other meds at HS) 09 (Given [...] 02/02 documented in this encounter Care Teams Overlock Collar Setter Relationship Specialty Start Date End Date Clem Olvera MD [address] [place] [address] PCP - General 12/18/15 documented as of this encounter
--- OUTSIDE RECORDS SUMMARY | 2024-05-27 00:51 | XMS_ITS | Encounter Summary ---
[place] [address] Care Team Providers Care Case Fitter Name Role Phone Donny Cooper MD Primary Care Provider [phone] Encounter Details Date Type Department Care Team (Latest Contact Info) Description 08/06/2023 10:00 AM EDT - 08/06/2023 11:59 PM EDT Hospital Encounter [place] [address] Discharge Disposition: Home Social History Tobacco Use [...] AM EDT Hospital Encounter Non[place] [phone] Arrived documented as of this encounter Visit Diagnoses Not on filedocumented in this encounter Care Teams Case Fitter Relationship Specialty Start Date End Date Donny Cooper MD [address] [place] [address] PCP - General Family Medicine 02/25/19 documented as of this encounter
--- OUTSIDE RECORDS SUMMARY | 2024-05-27 00:51 | XMS_ITS | Encounter Summary ---
Author Organization [facility] Address [address] [place] [address] Care Team Providers Care Hog Ringer Name Role Phone Unavailable Primary Care Provider Unavailabl e Encounter Details Date Type Department Care Team (Late st Contact Info) Description 12/02/2012 Results Only [facility] Services - [facility] [place] [address] [place] [phone] Satinder Edwards MD [address] [place] [phone] Social History Tobacco Use Types Packs/Day Years [...] Name: ? ABDIAZIZCHARMAINE ? Accession #: ? [id number] ? : ? 1940 (Age: 72) ??M [...] ORDERABLES Final Result [facility] [address] [place] [address] documented in this encounter Visit Diagnoses Not on filedocumented in this encounter
--- OUTSIDE RECORDS SUMMARY | 2024-05-27 00:51 | XMS_ITS | Referral Summary ---
Author Organization [facility] Address [address] [place] [address] Care Team Providers Care Pantograph Setter Name Role Phone Clem Olvera MD Primary Care Provider [phone] Allergies No known active allergies Medications atorvastatin [...] Advance Directives For more information, please contact: [phone] * Full Code (Latest Code Status on File) Date Activated Date Inactivated Comments 02/27/2016 8:49 02/28/2016 15:40 Question Answer Comments Reason for decision includes: Full code consistent with overall plan of care Who participated in the discussion? Not Discusse d Care Teams Pantograph Setter Relationship Specialty Start Date End Date Clem Olvera MD [address] [place] [address] PCP - General 12/18/15
--- OUTSIDE RECORDS SUMMARY | 2024-05-27 00:51 | XMS_ITS | Encounter Summary ---
[place] [address] Care Team Providers Care Harness Mender Name Role Phone Donny Cooper MD Primary Care Provider [phone] Encounter Details Date Type Department Care Team (Latest Contact Info) Description 07/07/2022 10:00 AM EST - 07/07/2022 11:59 PM EST Hospital Encounter [place] [address] Discharge Disposition: Home Social History Tobacco Use [...] AM EDT Hospital Encounter Non-[place] [address] Arrived documented as of this [...] on filedocumented in this encounter Care Teams Harness Mender Relationship Specialty Start Date End Date Donny Cooper MD [address] [place] [address] PCP - General Family Medicine 02/25/19 documented as of this encounter
--- OUTSIDE RECORDS SUMMARY | 2024-05-27 00:51 | XMS_ITS | Encounter Summary ---
[place] [address] Care Team Providers Care Community Music Therapist Name Role Phone Donny Cooper MD Primary Care Provider [phone] Encounter Details Date Type Department Care Team (Late st Contact Info) Description 06/14/2020 Telephone Cardiology at [address] [phone] Nhung Briggs Social History Tobacco Use Types [...] or LANG Albert. Nhung Allen Electrophysiology Scheduling [id number] option 2 documented in this encounter Plan of Treatment Upcoming Encounters Date Type Department Care Team (Late st Contact Info) Description 07/31/2024 10:00 AM EDT Hospital Encounter [place] [address] Arrived documented as of this encounter Visit Diagnoses Not on filedocumented in this encounter Care Teams Community Music Therapist Relationship Specialty Start Date End Date Donny Cooper MD [address] [place] [address] PCP - General Family Medicine 02/25/19 documented as of this encounter
--- OUTSIDE RECORDS SUMMARY | 2024-05-27 00:51 | XMS_ITS | Encounter Summary ---
[place] [address] Care Team Providers Care Pathology Transcriptionist Name Role Phone Donny Copoer MD Primary Care Provider [phone] Encounter Details Date Type Department Care Team (Latest Contact Info) Description 10/05/2022 10:00 AM EDT - 10/05/2022 11:59 PM EDT Hospital Encounter [place] [address] Discharge Disposition: Home Social History Tobacco Use [...] AM EDT Hospital Encounter [place] [phone] Arrived documented as of this encounter Procedures [...] on filedocumented in this encounter Care Teams Pathology Transcriptionist Relationship Specialty Start Date End Date Donny Cooper MD [address] [place] [address] PCP - General Family Medicine 02/25/19 documented as of this encounter
--- OUTSIDE RECORDS SUMMARY | 2024-05-27 00:51 | XMS_ITS | Encounter Summary ---
[place] [address] Care Team Providers Care Boat Rental Clerk Name Role Phone Donny Cooper MD Primary Care Provider [phone] Encounter Details Date Type Department Care Team (Latest Contact Info) Description 01/03/2023 10:00 AM EDT - 01/03/2023 11:59 PM EDT Hospital Encounter [place] [address] Discharge Disposition: Home Social History Tobacco Use [...] AM EDT Hospital Encounter [place] [phone] Arrived documented as of this encounter Procedures [...] filedocumented in this encounter Care Teams Boat Rental Clerk Relationship Specialty Start Date End Date Donny Cooper MD [address] [place] [address] PCP - General Family Medicine 02/25/19 documented as of this encounter
--- OUTSIDE RECORDS SUMMARY | 2024-05-27 00:51 | XMS_ITS | Encounter Summary ---
Author Organization [facility] [place] [address] Care Team Providers Care Building Coordinator Name Role Phone Donny Cooper MD Primary Care Provider [phone] Encounter Details Date Type Department Care Team (Late st Contact Info) Description 03/18/2024 Notes Only Cardiology at [address] [address] Marina Caballero APRN [facility] [place] [address] Social History Tobacco Use Types Packs/Day Years [...] AM EDT Hospital Encounter Non-[place] [phone] Arrived documented as of this encounter Visit Diagnoses Not on filedocumented in this encounter Care Teams Building Coordinator Relationship Specialty Start Date End Date Donny Cooper MD [address] [facility] [address] [place] [address] PCP - General Family Medicine 02/25/19 documented as of this encounter
--- OUTSIDE RECORDS SUMMARY | 2024-05-27 00:51 | XMS_ITS | Encounter Summary ---
[place] [address] Care Team Providers Care General Technician Name Role Phone Donny Cooper MD Primary Care Provider [phone] Encounter Details Date Type Department Care Team (Latest Contact Info) Description 07/02/2023 10:00 AM EST - 07/02/2023 11:59 PM EST Hospital Encounter Non-[place] [address] Discharge Disposition: Home Social History Tobacco Use [...] AM EDT Hospital Encounter Non-Invasive [place] [address] Arrived documented as of this encounter Visit Diagnoses Not on filedocumented in this encounter Care Teams General Technician Relationship Specialty Start Date End Date Donny Cooper MD [address] [place] [address] PCP - General Family Medicine 02/25/19 documented as of this encounter
--- OUTSIDE RECORDS SUMMARY | 2024-05-27 00:51 | XMS_ITS | Encounter Summary ---
Author Organization [facility] [place] [address] Care Team Providers Care Ticker Installer Name Role Phone Donny Cooper MD Primary Care Provider [phone] Encounter Details Date Type Department Care Team (Latest Contact Info) Description 06/25/2021 3:23 PM EST - 06/25/2021 11:59 PM EST Hospital Encounter Non[place] [address] Alber Seals MD [facility] [place] [address] Cardiomyopathy, primary Discharge Disposition: Home Social History [...] AM EDT Hospital Encounter Non-[place] [address] Arrived documented as of this encounter Procedures Procedure Name Priority Date/Time Associated Diagnosis Comments ICD INTERROGATION 3 MONTH Routine 06/25/2021 3:24 PM EST Cardiomyopathy, primary documented in this encounter Results * ICD INTERROGATION 3 MONTH (06/25/2021 3:24 PM EST) Anatomical Region Laterality Modality Other Narrative 06/25/2021 3:42 PM EST Cardiac Device Remote Monitoring Report Summary Medtronic Carelink Device: SAS CLINICAL PROGRAMMER-D Model: VIVA QUAD Battery: 2.95 v, estimated longevity 2 years 6 months Pacing percentage: 90% SAS CLINICAL PROGRAMMER paced Events: Presenting rhythm: atrial paced/biventricular paced Frequent PVC's Impression Normal device function Follow Up As per schedule - in-clinic and remote ALBER SEALS MD 06/25/21 Alber Seals MD IMPLANTABLE CARDIAC DEVICE documented in this encounter Visit Diagnoses Diagnosis Cardiomyopathy, primary Other primary cardiomyopathies documented in this encounter Care Teams Ticker Installer Relationship Specialty Start Date End Date Donny Cooper MD [address] [place] [address] PCP - General Family Medicine 02/25/19 documented as of this encounter
--- OUTSIDE RECORDS SUMMARY | 2024-05-27 00:51 | XMS_ITS | Encounter Summary ---
[place] [address] Care Team Providers Care Cna Caregiver Name Role Phone Donny Cooper MD Primary Care Provider [phone] Encounter Details Date Type Department Care Team (Late st Contact Info) Description 01/05/2024 Telephone Cardiology at [address] [address] Kanika Shell Social History Tobacco [...] AM EDT Hospital Encounter Non-[place] [address] Arrived documented as of this encounter Visit Diagnoses Not on filedocumented in this encounter Care Teams Cna Caregiver Relationship Specialty Start Date End Date Donny Cooper MD [address] [place] [address] PCP - General Family Medicine 02/25/19 documented as of this encounter
--- OUTSIDE RECORDS SUMMARY | 2024-05-27 00:51 | XMS_ITS | Clinical Summary ---
Author Organization [facility] Address [address] [place] [address] Care Team Providers Care Direct Response Consultant Name Role Phone Clem Olvera MD Primary Care Provider [phone] Allergies No known active allergies Medications atorvastatin [...] PACEMAKER INSERTION 05/04/2002 - 05/03/20032013 second pacemaker [facility] Medical History Medical History [...] 2024 [place] [id number] Advance Directives For more information, please contact: [phone] * Full Code (Latest Code Status on File) Date Activated Date Inactivated Comments 02/27/2016 8:49 02/28/2016 15:40 Question Answer Comments Reason for decision includes: Full code consistent with overall plan of care Who participated in the discussion? Not Discusse d Care Teams Direct Response Consultant Relationship Specialty Start Date End Date Clem Olvera MD [address] [place] [address] PCP - General 12/18/15
--- OUTSIDE RECORDS SUMMARY | 2024-05-27 00:52 | XMS_ITS | Encounter Summary ---
[place] [address] Care Team Providers Care Change Management Facilitator Name Role Phone Marques Martinez MD Primary Care Provider [phone] Encounter Details Date Type Department Care Team (Late st Contact Info) Description 06/12/2010 2:00 PM EST Procedure visit [place] [address] Social History Tobacco Use Types Packs/Day Years [...] AM EDT Hospital Encounter Non-[place] [address] Arrived documented as of this encounter Visit Diagnoses Not on filedocumented in this encounter Care Teams Change Management Facilitator Relationship Specialty Start Date End Date Marques Martinez MD [address] [place] [address] PCP - General 04/01/10 04/08/11 documented as of this encounter
--- OUTSIDE RECORDS SUMMARY | 2024-05-27 00:52 | XMS_ITS | Encounter Summary ---
[place] [address] Care Team Providers Care Fashion Styling Intern Name Role Phone Marques Martinez MD Primary Care Provider [phone] Encounter Details Date Type Department Care Team (Late st Contact Info) Description 06/12/2010 2:10 PM EST Office [place] [address] Jairon Fenton MD Discharge Disposition: Home Social [...] AM EDT Hospital Encounter Non-Invasive [place] [address] Arrived documented as of this encounter Visit Diagnoses Not on filedocumented in this encounter Care Teams Fashion Styling Intern Relationship Specialty Start Date End Date Marques Martinez MD [address] [place] [address] PCP - General 04/01/10 04/08/11 documented as of this encounter
--- OUTSIDE RECORDS SUMMARY | 2024-05-27 00:52 | XMS_ITS | Encounter Summary ---
[place] [address] Care Team Providers Care Insulation Cutter And Former Name Role Phone Marques Martinez MD Primary Care Provider [phone] Encounter Details Date Type Department Care Team (Late st Contact Info) Description 05/01/2010 2:40 PM EST Procedure [place] [address] Social History Tobacco Use Types Packs/Day Years [...] AM EDT Hospital Encounter [place] [address] Arrived documented as of this encounter Visit Diagnoses Not on filedocumented in this encounter Care Teams Insulation Cutter And Former Relationship Specialty Start Date End Date Marques Martinez MD [address] [place] [address] PCP - General 04/01/10 04/08/11 documented as of this encounter
--- OUTSIDE RECORDS SUMMARY | 2024-05-27 00:52 | XMS_ITS | Encounter Summary ---
Author Organization [facility] [place] [address] Care Team Providers Care Stationary Engineer Name Role Phone Marques Martinez MD Primary Care Provider [phone] Reason for Visit * Reason Comments Follow Up Fracture PATELLA FX DOI 03/23 10 Encounter Details Date Type Department Care Team (Late st Contact Info) Description 10/09/2010 12:40 PM EDT Office [place] [address] Jairon Gustafson MD Aubin, Christopher J PA [facility] [place] [address] Quadriceps tendon rupture (Primary Dx) Discharge Disposition: [...] AM EDT Hospital Encounter Non-[place] [address] Arrived documented as of this encounter Visit Diagnoses Diagnosis Quadriceps tendon rupture- Primary Sprain and strain of other specified sites of knee and leg documented in this encounter Care Teams Stationary Engineer Relationship Specialty Start Date End Date Marques Martinez MD [address] [place] [address] PCP - General 04/01/10 04/08/11 documented as of this encounter
--- OUTSIDE RECORDS SUMMARY | 2024-05-27 00:52 | XMS_ITS | Encounter Summary ---
[place] [address] Care Team Providers Care Teaching Fellow Name Role Phone Marques Martinez MD Primary Care Provider [phone] Encounter Details Date Type Department Care Team (Late st Contact Info) Description 10/03/2010 Abstract [place] [address] Marina Orosco, JADON Social History Tobacco Use [...] Encounter Non-Invasive [place] [address] Arrived documented as of this encounter Visit Diagnoses Not on filedocumented in this encounter Care Teams Teaching Fellow Relationship Specialty Start Date End Date Marques Martinez MD [address] [place] [address] PCP - General 04/01/10 04/08/11 documented as of this encounter
--- OUTSIDE RECORDS SUMMARY | 2024-05-27 00:52 | XMS_ITS | Encounter Summary ---
Author Organization [facility] [place] [address] Care Team Providers Care Earth Science Technical Officer Name Role Phone Clem Olvera MD Primary Care Provider [phone] Reason for Visit * Reason Comments Follow Up Fracture SP PATELLA FX DO12/12 DOI 03/30/10 Encounter Details Date Type Department Care Team (Late st Contact Info) Description 04/09/2011 1:30 PM EST Office [place] [address] Jairon Gustafson MD Aubin, Christopher J PA [facility] [place] [address] Patella fracture (Primary Dx) Discharge Disposition: Home [...] Hospital Encounter Non[place] [address] Arrived documented as of this encounter Visit Diagnoses Diagnosis Patella fracture- Primary Closed fracture of patella documented in this encounter Care Teams Earth Science Technical Officer Relationship Specialty Start Date End Date Clem Olvera MD [address] [place] [address] PCP - General 04/09/11 02/24/19 documented as of this encounter
--- OUTSIDE RECORDS SUMMARY | 2024-05-27 00:52 | XMS_ITS | Encounter Summary ---
Author Organization [facility] [place] [address] Care Team Providers Care Deicer Inspector Pneumatic Name Role Phone Marques Martinez MD Primary Care Provider [phone] Encounter Details Date Type Department Care Team (Late st Contact Info) Description 10/09/2010 11:35 AM EDT - 10/09/2010 11:59 PM EDT Hospital Encounter XRay at [address] [place] [phone] Social History Tobacco Use Types Packs/Day Years [...] EDT Hospital Encounter Non-Invasive Cardiology Lab [facility] [place] [address] Arrived documented as of this encounter Visit Diagnoses Not on filedocumented in this encounter Care Teams Deicer Inspector Pneumatic Relationship Specialty Start Date End Date Marques Martinez MD [address] [place] [address] PCP - General 04/01/10 04/08/11 documented as of this encounter
--- OUTSIDE RECORDS SUMMARY | 2024-05-27 00:52 | XMS_ITS | Encounter Summary ---
[place] [address] Care Team Providers Care Occupational Therapy Program Director Name Role Phone Marques Martinez MD Primary Care Provider Encounter Details Date Type Department Care Team (Late st Contact Info) Description 05/01/2010 3:10 PM EST Office [place] [address] Jairon Fenton MD Discharge Disposition: Home Social [...] AM EDT Hospital Encounter Non-Invasive [place] [address] Arrived documented as of this encounter Visit Diagnoses Not on filedocumented in this encounter Care Teams Occupational Therapy Program Director Relationship Specialty Start Date End Date Marques Martinez MD [address] [place] [address] PCP - General 04/01/10 04/08/11 documented as of this encounter
--- OUTSIDE RECORDS SUMMARY | 2024-05-27 00:52 | XMS_ITS | Encounter Summary ---
Author [facility] [place] [address] Care Team Providers Care Order Entry Specialist Name Role Phone Marques Martinez MD Primary Care Provider [phone] Encounter Details Date Type Department Care Team (Late st Contact Info) Description 03/30/2010 [place] [address] Javier Barajas MD [facility] [place] [address] Social History Tobacco Use Types Packs/Day Years [...] AM EDT Hospital Encounter Non-[place] [address] Arrived documented as of this encounter Procedures [...] AM EST Jairon Fenton MD CHEMISTRY ORDERABLES [facility] * (ABNORMAL) CREATININE, SERUM (04/01/2010 [...] Fenton MD CHEMISTRY ORDERABLES Performing Organization Address [facility] de Phone Number CERNER CH[facility]STOSENNI[facility] * BUN (04/01/2010 6:09 AM EST) Blood Urea Nitrogen 12 10 - 20 mg/dL [facility]ERNER MILLENNIUM Blood specimen (specimen) 04/01/2010 6:09 AM EST 04/01/2010 6:09 AM EST Jairon Fenton MD CHEMISTRY ORDERABLES Performing Organization Address [facility] de Phone Number CERNER [...] MD HEMATOLOGY ORDERABLE S Performing Organization Address [facility] de Phone Number CERNER [...] Fenton MD CHEMISTRY ORDERABLES Performing Organization Address [facility] Phone Number CERIVIS [...] Fenton MD CHEMISTRY ORDERABLES Performing Organization Address [facility] de Phone Number CERIVIS MILLENNIUM [...] Fenton MD CHEMISTRY ORDERABLES Performing Organization Address [facility] de Phone Number DEJA SEGOVIA * APTT (03/30/2010 6:05 PM EST) Partial Thromboplastin Time 26 25 - 37 sec CERNER CHRISTOSENNIUM Comment: Recommended therapeutic PTT range for full dose unfractionated heparin is 80-114 seconds. Blood specimen (specimen) 03/30/2010 6:05 PM EST 03/30/2010 6:14 PM EST Jairon Fenton MD HEMATOLOGY ORDERABLE S Performing Organization Address [facility] Phone Number DEJA SEGOVIA * PROTIME-INR (03/30/2010 6:05 PM EST) Prothrombin Time 14.2 12.3 - 14.7 sec [facility] Comment: [facility] Transfusion Committee Guidelines: INR less than 2.0, PTT less than OR equal to 43.5 seconds, or Fibrinogen greater than or equal to 100 mg/dl indicate adequate procoagulant activity for hemostasis in patients without underlying bleeding disorders. International Normalization Ratio 1.1 0.9 - 1.1 [facility] Blood specimen (specimen) 03/30/2010 6:05 PM EST 03/30/2010 6:14 PM EST Jairon Fenton MD HEMATOLOGY ORDERABLE S Performing Organization Address [facility] de Phone Number DEJA [...] of variation 13.1 10.9 - 14.4 % [facility] Mean Platelet Volume 10.6 9.0 - 12.0 fL [facility] Blood specimen (specimen) 03/30/2010 6:05 PM EST 03/30/2010 6:13 PM EST Jairon Fenton MD HEMATOLOGY ORDERABLE S Performing Organization Address [facility] de Phone Number [facility] * REFLEX LAB-ANTIBODY SCREEN (03/30/2010 3:17 PM EST) [facility] Ab Screen Interp Negative [facility] Expires at [id number] on: [id number] [facility] Blood specimen (specimen) 03/30/2010 3:17 PM EST 03/30/2010 3:17 PM EST Javier Barajas MD BLOOD BANK LAB ORDER PRECIOUS Performing Organization Address [facility] de Phone Number [facility] * REFLEX LAB-ABO/RH (03/30/2010 3:17 PM EST) [facility] ABORH Type A Pos [facility] Blood specimen (specimen) 03/30/2010 3:17 PM EST 03/30/2010 3:17 PM EST Javier Barajas MD BLOOD BANK LAB ORDER PRECIOUS Performing Organization Address [facility] de Phone Number [facility] * ELECTROLYTE PANEL (03/30/2010 2:50 PM EST) [facility] Sodium 135 135 - 145 mmol/L [facility] [...] Barajas MD CHEMISTRY ORDERABLES Performing Organization Address [facility] Phone Number [facility] * BUN (03/30/2010 2:50 PM EST) Blood Urea Nitrogen 18 10 - 20 mg/dL [facility] Blood specimen (specimen) 03/30/2010 2:50 PM EST 03/30/2010 3:05 PM EST Javier Barajas MD CHEMISTRY ORDERABLES Performing Organization Address [facility] Phone Number [facility] * GLUCOSE, RANDOM (03/30/2010 2:50 PM EST) Glucose 95 <=199 mg/dL [facility] Comment:Diabetes: >=200 mg/d L plus symptoms Blood specimen (specimen) 03/30/2010 2:50 PM EST 03/30/2010 3:05 PM EST Javier Barajas MD CHEMISTRY ORDERABLES Performing Organization Address [facility] Phone Number [facility] * APTT (03/30/2010 2:50 PM EST) Partial Thromboplastin Time 25 25 - 37 sec [facility] Comment: Recommended therapeutic PTT range for full dose unfractionated heparin is 80-114 seconds. Blood specimen (specimen) 03/30/2010 2:50 PM EST 03/30/2010 3:06 PM EST Javier Barajas MD HEMATOLOGY ORDERABLE S Performing Organization Address [facility] Phone Number [facility] * PROTIME-INR (03/30/2010 2:50 PM EST) Prothrombin Time 14.1 12.3 - 14.7 sec [facility] Comment: [facility] Transfusion Committee Guidelines: INR less than [...] filedocumented in this encounter Care Teams Order Entry Specialist Relationship Specialty Start Date End Date Marques Martinez MD [address] [place] [address] PCP - General 04/01/10 04/08/11 documented as of this encounter
--- OUTSIDE RECORDS SUMMARY | 2024-05-27 00:52 | XMS_ITS | Encounter Summary ---
[place] [address] Care Team Providers Care Rubber Thread Spooler Name Role Phone Marques Martinez MD Primary Care Provider [phone] Encounter Details Date Type Department Care Team (Late st Contact Info) Description 09/11/2010 Orders [place] [address] Jairon Fenton MD Fracture of patella, left, [...] AM EDT Hospital Encounter [place] [address] Arrived documented as of this encounter Visit Diagnoses Diagnosis Fracture of patella, left, closed- Primary Closed fracture of patella documented in this encounter Care Teams Rubber Thread Spooler Relationship Specialty Start Date End Date Marques Martinez MD [address] [place] [address] PCP - General 04/01/10 04/08/11 documented as of this encounter
--- NOTE | 2024-07-20 08:30 | DI.US_ITS ---
APPROVED REPORT EXAM: Comprehensive 2D, Doppler, and color-flow Echocardiogram Patient Location: Out-Patient Drop Wire Builder: Sheng Dolan RDCS (AE) Indications: Recheck LV function, TAXICAB DISPATCHER Other Information Study Quality: Fair Conclusion Dilated left ventricle. Mild concentric left ventricular hypertrophy. Ejection fraction is 35 to 40 %. The inferior and posterior ruiz are akinetic Normal right ventricular size and function Moderately dilated left atrium. Normal right atrial size Device lead noted in the right heart Aortic valve is sclerotic and trileaflet without stenosis or regurgitation Mild mitral annular calcification. Moderate mitral regurgitation Mild to moderate tricuspid regurgitation. Estimated right ventricular systolic pressure is 33 mmHg Wall motion Left Ventricle Left ventricle is moderately dilated. Left ventricular systolic function is moderately decreased. Mil d concentric left ventricular hypertrophy. Inferior and posterior wall motion abnormalities There is no ventricular septal defect visualized. LVEF is 35 -40%. Right Ventricle The right ventricle is normal size. The right ventricular systolic function is normal. Device lead is present in the right ventricle. Atria Left atrium is moderately dilated. The right atrium size is normal. The interatrial septum is intact with no evidence for an atrial septal defect. Aortic Valve The aortic valve is mildly sclerotic. Aortic valve is trileaflet. There is no aortic valvular stenosi s. No aortic regurgitation is present. Mitral Valve Mild mitral annular calcification. No evidence of mitral valve stenosis. Moderate mitral regurgitatio n. Tricuspid Valve The tricuspid valve is normal in structure. There is no tricuspid valve stenosis. Mild to moderate tr icuspid regurgitation. The RVSP is 33.4 mmHg. Pulmonic Valve The pulmonary valve is normal in structure. There is no pulmonic valvular stenosis. Mild pulmonic reg urgitation. Great Vessels The aortic root is normal in size. The ascending aorta is normal in size. Aortic arch is not well vis ualized. IVC is normal in size and collapses >50% with inspiration. Pericardium There is no pericardial effusion. 2D Dimensions IVSD d PLAX 1.31 cm M: 0.6-1.2 Ao Root d 3.08 cm M: 3.1 - 3.7 LVPW d PLAX 1.28 cm M: 0.6 - 1.2 Ao Asc Diam d 3.37 cm M: 2.6 - 3.4 LVID d PLAX 6.70 cm M: 4.2 - 5.8 LVDs 5.72 cm M: 2.5 - 4.0 LV EF Teichholz 30.2 % FS 14.61 % LV EDV (Teich) 231.2 mL LV ESV (Teich) 161.3 mL Stroke Vol Index (Teich) 31.34 M-Mode TAPSE 1.95 cm (M/F) >1.7 Auto EF LV EDV A4C 190.8 mL LV EDV A2C 99.0 mL LV EDV BP 147.8 mL LV ESV A4C 131.1 mL LV ESV A2C 69.6 mL LV ESV BP 102.6 mL LVEF(%) A4C 31.3 % LVEF(%) A2C 29.7 % LVEF(%) BP 30.6 % LV SV A4C 59.7 ml LV SV A2C 29.4 ml LV SV BP 45.3 ml LV CO A4C 4.6 L/min LV CO A2C 1.9 L/min LV CO BP 3.3 L/min HR A4C 77.76 BPM HR A2C 65.70 BPM LV EDV Index (BP) LA Volume LA Length A4C 5.8 cm LA Length A2C 5.2 cm LA Area A4C s 22.97 cm2 LA Area A2C s 17.50 cm2 LA Vol A4C A-L 77.43 mL LA Vol A2C A-L 49.97 mL LA Vol Biplane A-L 65.6 mL LA Vol/BSA A4C A-L LA Vol/BSA A2C A-L LA Vol/BSA BP A-L 29.4 mL/m2 LA Vol A4C MOD 73.8 mL LA Vol A2C MOD 47.3 mL LA Vol BP MOD 62.2 mL RA Volume RA Area A4C 14.5 cm2 RA ESV A4C (A-L) 37.0mL RA Vol/BSA A4C A-L RA Length A4C 4.9 cm RA ESV A4C (MOD) 33.7mL LV Diastology MV E' medial 0.044 (>0.07 m/s) MV E Vmax 0.81 (0.4-1.3 m/s) MV E/E' MED 18.33 (<14) MV A Vmax 0.85 (0.4-1.3 m/s) MV E' lateral 0.058 (>0.1 m/s) E/A Ratio 1.0 MV E/E' LAT 14.08 (<14) MV E' Average 0.051 m/s MV E/E'(average) 15.93 Aortic Valve AoV Vmax 1.56 m/s LVOT Vmax 0.90 m/s AoV Peak Grad 9.7 mmHg LVOT Peak Grad 3.2 mmHg AoV Area (Vmax) 2.27 cm2 LVOT VTI 0.202 m AoV VTI 0.361 m LVOT Mean Grad 1.9 mmHg AoV Mean Adrian. 1.13 m/s LVOT SV 79.30 mL AoV Mean Grad 5.7 mmHg LVOT Diam s 2.20 cm AoV Area (VTI) 2.20 cm2 AV Regurg Peak Gr. 9.74 mmHg Velocity Ratio 0.58 Mitral Valve MV DT 146 (160-240 msec) MV Vmax TIPS 1.02 m/s MV Mean Grad 1.6 (<2mmHg) MV VTI 0.377 m Pulmonary Valve PV Vmax 0.84 (0.5-1.5 m/s) PV Peak Grad 2.8 mmHg PV Mean Adrian 0.55 m/s PV Mean Grad 1.4 mmHg Tricuspid Valve RA Pressure 3.00 mmHg TR Vmax 2.76 m/s TV S' 0.12 m/s TR Peak Grad 30.3 mmHg RVSP (TR) 33.4 mmHg
== END 2024-07-20 02:26 ==
PROVIDERS: PCP Family Medicine; Visit Provider Internal Medicine Cardiovascular Disease
DX: I51.7 Cardiomegaly (principal)
CPT/HCPCS: 93306

== ENCOUNTER 2024-07-28 08:14 | Outpatient (RCR) | payer SELFPAY ==
[2024-07-02 00:17] VITALS: BP 125/60; PULSE 62
[2024-07-07 08:23] VITALS: BP 139/76; PULSE 79
[2024-07-12 08:32] VITALS: BP 112/64; PULSE 75
[2024-07-19 08:28] VITALS: BP 118/62; PULSE 69
[2024-07-21 08:21] VITALS: BP 114/52; PULSE 63
[2024-07-26 08:59] VITALS: BP 125/58; PULSE 74
[2024-07-28 08:00] VITALS: BP 120/67; PULSE 75; O2SAT 94
== END 2024-08-01 23:59 | disposition home or self-care (01) ==
LOC: CR 08:14
PROVIDERS: PCP Family Medicine; Visit Provider Internal Medicine Cardiovascular Disease
DX: R69 Illness, unspecified (principal)

== ENCOUNTER 2024-07-30 15:30 | Emergency (ER) | payer MEDICARE, SELFPAY ==
[2024-07-30] VITALS (31 sets, daily range): BP systolic 104–161; BP diastolic 46–86; PULSE 60–91; RESP 13–30; TEMP 36.8; O2SAT 77–97
--- NOTE | 2024-07-30 15:30 | RT.EKG_ITS ---
APPROVED REPORT Exam: Resting ECG Reason for Exam: chest pain Patient Location: E HR:80 bpm ECG Measurements Heart Rate 80 AXIS TX 146 P 59 QRSd 163 QRS -72 QT 421 T 109 QTc 486 Conclusion Atrial-sensed ventricular-paced rhythm...ventricular pacing tracks p-waves Biventricular paced rhythm...non-simultaneous bi-vent pacing
--- NOTE | 2024-07-30 15:42 | ED.GENADUL_ITS ---
Discharge Plan Disposition Patient Disposition: Home Discharge Details Clinical Impression: Pneumonia, Cough in adult Primary Care Provider: Donny Cooper ED Provider: Theresa Becker Home Meds and New Rx's Prescriptions: New cefpodoxime 200 mg tablet 200 mg PO BID Qty: 8 0RF Rx Instructions: must administer with a meal/food No Action Eliquis 5 mg tablet 5 mg PO BID Qty: 180 4RF spironolactone 25 mg tablet 12.5 mg PO DAILY Qty: 45 4RF lisinopril 2.5 mg tablet 2.5 mg PO DAILY Qty: 90 3RF atorvastatin 40 mg tablet 40 mg PO DAILY Qty: 90 4RF Lumigan 0.01 % drops 1 drp ophthalmic (eye) DAILY Qty: 7.5 5RF nitroglycerin [Nitrostat] 0.4 mg tablet, sublingual 0.4 mg Sublingual PRN Qty: 25 0RF tamsulosin [Flomax] 0.4 mg capsule 0.4 mg PO HS Qty: 90 4RF carvedilol 6.25 mg tablet 6.25 mg PO BID Qty: 180 3RF Rx Instructions: must administer with a meal/food furosemide 40 mg tablet 40 mg PO .2x per week Discharge Instructions Additional Instructions: Please call your primary care provider first thing Thursday morning to schedule follow-up appointment on Thursday or Thursday for reassessment. Your symptoms today are most consistent with a viral illness, though there is some concern for pneumonia on chest xray. You will be treated antibiotics, please take the full course as prescribed. I recommend taking with probiotics to prevent antibiotic associated diarrhea. Continue taking your furosemide as prescribed. Please stay well hydrated, drinking plenty of fluids throughout the day. You may use tylenol 650 mg every 8 hours as needed for fever /chills or body aches. Get plenty of rest. Practice good handwashing and wear a mask in public if you are coughing to avoid spreading illness to others. Return to emergency care if you develop difficulty breathing, chest pains, worsening of cough or fever after initial improvement, dizziness, or if you are very worried and need to be rechecked again immediately. HPI General Date/Time Provider Initiated Documentation: 07/30/24 15:38 . HPI Narrative: Mario is a 83 year old male who presents to the emergency department today for evaluation of productive cough with chest congestion, chills, body aches, and low energy. He reports that symptoms started 4 days ago, though he has been sick on and off all winter. Admits to wheezing while laying down. Denies recorded fever, congestion, postnasal drip, sore throat, chest pain, shortness of breath with exertion, nausea/vomiting, change in p.o. intake, abdominal pain, change in bowel or bladder function, pedal edema, calf swelling/tenderness. Denies recent ill contacts, surgical procedures, or cancer hx. He is anticoagulated with eliquis. Past medical history is significant for COPD, CHF, cardiomyopathy, biventricular ICD/pacemaker, HLD, CAD, history of SC. Denies history of COPD exacerbation requiring hospitalization. Physical exam remarkable for faint scattered wheezes. Easy work of breathing, good aeration throughout. Occasional cough during exam. Normal heart sounds. Abdomen soft, nondistended, nontender to palpation. Moist mucous membranes. No pedal edema. D/dx includes but is not limited to: Viral illness such as COVID-19 or influenza, pneumonia, COPD exacerbation, CHF. History and presentation not consistent with ACS at this time; no red flags concerning for PE. I independently interpreted the following tests: EKG remarkable for ventricular paced rhythm rate 80. Normal intervals. No changes consistent with acute ischemia based on Sgarbossa criteria. CBC, VBG, CMP reassuring. BNP elevated at 849, with no signs of pulmonary vascular congestion on CXR. CXR notable for mild increased in the mid-lowere right lung field, possible infiltrate. While in the emergency department, Mario received albuterol nebulizer for wheezing while laying down; no change in symptoms with treatment. Abx and dose of furosemide given. I did review recent cardiology records from 06/10/2024 visit. He had a myocardial perfusion imaging study with stress test that did not indicate myocardial ischemia, though it did confirm areas of apparent infarction and persistent LV dysfunction with calculated EF 26%. No change from previous. He does have a history of shortness of breath, was advised to take his furosemide several times a week. I confirmed with Mario- he takes it usually on and Sundays. History and presentation consistent with viral illness with probable pneumonia. Patient is appropriate at this time for outpatient management, does not meet criteria for inpatient management based on CURB-65, reassuring labs and vital signs. Will treat with cefpodoxime 200 mg twice daily x 5 days. Recommend close follow-up with PCP for reassessment. Reviewed discharge instructions with patient and his , including symptomatic management, use of antibiotics, and red flags indicating need for return to emergency care Related Data Home Medications ?Medication ?Instructions ?Recorded ?Confirmed carvedilol 6.25 mg tablet 6.25 mg PO BID cardiomyopathy, 08/31/23 07/30/24 premature ventricular beats #180 tabs apixaban 5 mg tablet (Eliquis) 5 mg PO BID #180 tab-caps 10/22/23 07/30/24 atorvastatin 40 mg tablet 40 mg PO DAILY #90 tab-caps 10/22/23 07/30/24 bimatoprost 0.01 % eye drops 1 drp ophthalmic (eye) DAILY #7.5 10/22/23 07/30/24 (Lumigan) mL lisinopril 2.5 mg tablet 2.5 mg PO DAILY #90 tab-caps 10/22/23 07/30/24 nitroglycerin 0.4 mg sublingual 0.4 mg sublingual PRN #25 tabs 10/22/23 07/30/24 tablet (Nitrostat) spironolactone 25 mg tablet 12.5 mg (1/2 x 25 mg) PO DAILY #45 10/22/23 07/30/24 tab-caps tamsulosin 0.4 mg capsule (Flomax) 0.4 mg PO HS #90 tabs 10/22/23 07/30/24 cefpodoxime 200 mg tablet 200 mg PO BID #8 tabs 07/30/24 furosemide 40 mg tablet 40 mg PO .2x per week 07/30/24 07/30/24 Previous Rx's ?Medication ?Instructions ?Recorded carvedilol 6.25 mg tablet 6.25 mg PO BID cardiomyopathy, 08/31/23 premature ventricular beats #180 tabs apixaban 5 mg tablet (Eliquis) 5 mg PO BID #180 tab-caps 10/22/23 atorvastatin 40 mg tablet 40 mg PO DAILY #90 tab-caps 10/22/23 bimatoprost 0.01 % eye drops 1 drp ophthalmic (eye) DAILY #7.5 10/22/23 (Lumigan) mL lisinopril 2.5 mg tablet 2.5 mg PO DAILY #90 tab-caps 10/22/23 nitroglycerin 0.4 mg sublingual 0.4 mg sublingual PRN #25 tabs 10/22/23 tablet (Nitrostat) spironolactone 25 mg tablet 12.5 mg (1/2 x 25 mg) PO DAILY #45 10/22/23 tab-caps tamsulosin 0.4 mg capsule (Flomax) 0.4 mg PO HS #90 tabs 10/22/23 cefpodoxime 200 mg tablet 200 mg PO BID #8 tabs 07/30/24 Allergies Allergy/AdvReac Type Severity Reaction Status Date / Time No Known Allergies Allergy Verified 07/30/24 15:32 General Stated Complaint: RespSymp HARSHIL: 3 Review of Systems Narrative: see HPI Exam Const General: cooperative Nutritional Appearance: average body habitus Orientation: alert and oriented x3 HENMT Head: normal to inspection General nose exam: external nose normal Face and sinus: normal facial exam Mouth: oral mucosae normal and moist mucous membranes Neck Neck: normal visual inspection Resp Effort & Inspection: normal respiratory effort, able to speak in complete sentences and cough Auscultation: wheezes (occasional, faint, scattered) Cardio Jugular venous pressure: no JVD Rate: regular rate Rhythm: regular rhythm Pulses: radial pulses present GI Inspection: normal to inspection and no edema Palpation: soft, not rigid and nontender Skin General skin exam: no rashes or lesions noted Extrem General: no pedal edema and no calf tenderness Course Vital Signs Vital signs: Vital Signs Temperature 36.8 C 07/30/24 15:32 Pulse 60 07/30/24 15:32 Respiratory Rate 20 07/30/24 15:32 Blood Pressure 161/86 H 07/30/24 15:32 Pulse Oximetry 95 07/30/24 15:32 Temperature 36.8 C 07/30/24 15:32 Temperature Source Oral 07/30/24 15:32 Pulse 60 07/30/24 15:32 Respiratory Rate 20 07/30/24 15:32 Blood Pressure 161/86 H 07/30/24 15:32 Blood Pressure Position Sitting 07/30/24 15:32 Pulse Oximetry 95 07/30/24 15:32 Oxygen Delivery Method Room Air 07/30/24 15:32 Oxygen Flow Rate 0 07/30/24 15:32 Pain Level 0 07/30/24 15:32 Medical Decision Making Quality:SDOH Health Related Social Needs: No Data to Display PFSH All Active Problems (Updated 07/30/24 @ 18:45 by Theresa Enrique) Pneumonia (Acute) Cardiomyopathy (Acute) Dupuytrens contracture (Acute) rt fifth finger COVID-19 (Acute ~12/31/21) Biventricular implantable cardioverter-defibrillator in situ (Acute) Original implant 2013 [employer] OFFICE [employer]IST-D Viva Quad XT [id number] 02/27/2016 Actinic keratoses (Acute) LPRD (laryngopharyngeal reflux disease) (Acute) Cough in adult (Acute) Hoarseness of voice (Acute) History of tobacco use (Acute) Well adult (Acute) History of spinal surgery (Acute) Low back pain (Acute 04/11/13) Status post appendectomy (Acute) Osteoarthritis (Acute) Old myocardial infarction (Acute 09/21/15) Ischemic cardiomyopathy (Acute 09/21/15) Hyperplasia of prostate (Acute 10/13/12) Hyperlipemia (Acute) History of COPD (Acute) Hemorrhoids (Acute) Glucose intolerance (impaired glucose tolerance) (Acute 09/26/16) Fracture of patella, closed (Acute) LEFT Coronary artery disease involving [place] coronary artery of [place] heart without angina pectoris (Acute 09/21/15) 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 Maternal Grandfather No problems noted. Maternal Grandmother No problems noted. Social History Smoking/Tobacco Use Status: Former Tobacco Use tobacco type: cigarettes Quit Date: 05/04/89 Tobacco: How many years used: 30 Quit status: has quit before Second Hand Exposure: Yes Smoking risk assessment performed?: Yes Alcohol Intake: current Alcohol Intake frequency: a few times a week Alcohol type: beer Drug use: Never Caregiver/Support person: No Household members: spouse Housing: house Communication Needs: None Do you need help understanding health information?: Never Pets and animals: No Sexually active: No Do you think of yourself as: straight/heterosexual Current gender identity: male What is your relationship status?: How often do you talk on the phone with friends or family?: decline to answer How often do you get together with friends or relatives?: decline to answer How often do you attend sabianist or evangelical services?: decline to answer Do you belong to any clubs or organized social groups?: yes Panel score (0-1 are the most socially isolated patients): 2 What type of physical activity do you participate in: walking and other Details: cardiac rehab Duration: 60-90 minutes/day Frequency: 1-2 times per week Shellie/Mandaeism: No preference Special shellie needs: No Agree to transfusion: No Seatbelt use: always Helmet use: Yes Helmet use: always Drive intox or ride w/intox courtesy van 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
--- NOTE | 2024-07-30 15:45 | DI.RAD_ITS ---
Exam(s) XR CHEST 2V PA LATERAL EXAM: XR CHEST 2V PA LATERAL CLINICAL HISTORY: cough, h/o CHF. TECHNIQUE: 2D digital imaging was performed. COMPARISON: CR XR CHEST 2V PA LATERAL from 03/06/2023 FINDINGS: 2 views: Left subclavian pacemaker is again noted. Mild cardiomegaly again noted. The mediastinum is not widened. Mild increased markings are noted in the mid-lower right lung field, possible mild infiltrate. Left lung is clear. No pleural effusions. No pulmonary edema. No fractures. IMPRESSION: Mild increased markings in the mid-lower right lung field which may represent mild infiltrate. No pl eural effusions. Cardiomegaly. Pacemaker. No pulmonary edema. DATA REPOSITORY: RADIATION DOSE DELIVERED:
[2024-07-30 16:12] LABS: BE (Venous) 3 mmol/L (-2-3); HCO3 (Venous) 28 mmol/L (23-28); O2 Sat (Venous) 70 %; TCO2 (Venous) 25 mmol/L (24-29); pCO2 (Venous) 47 mmHg (41-51); pH (Venous) 7.38 (7.31-7.41); pO2 (Venous) 36 mmHg
[2024-07-30 16:14] LABS: Abs Immature Grans 0.01 10^3/uL (0.0-0.06); Absolute Basophil Count 0.03 10^3/uL (0.0-0.2); Absolute Eosinophil Count 0.09 10^3/uL (0.0-0.7); Absolute Lymphocyte Count 1.72 10^3/uL (1.2-3.4); Absolute Monocyte Count 0.92 10^3/uL (0.1-0.8); Absolute Neutrophil Count 2.87 10^3/uL (1.2-6.7); Basophils % 0.5 %; Eosinophils % 1.6 %; HCT 41.5 % (40.0-50.0); HGB 14.2 g/dL (13.5-17.5); Immature Grans % 0.2 %; Lymphocytes % 30.5 %; MCH 32.1 pg (27.0-33.0); MCHC 34.2 % (32.0-36.0); MCV 94 fL (80-95); MPV 10.3 fL (8.0-11.0); Monocytes % 16.3 %; Neutrophils % 50.9 %; Platelet Count 147 10^3/uL (130-400); RBC 4.43 10^6/uL (4.36-5.78); RDW-SD 44.6 fL; WBC 5.64 10^3/uL (4.4-10.8)
[2024-07-30 16:38] LABS: COVID-19 PCR Negative (Negative); Influenza A PCR Negative (Negative); Influenza B PCR Negative (Negative); RSV PCR Negative (Negative)
[2024-07-30 16:39] LABS: Source Nasopharynx
[2024-07-30 16:40] LABS: ALT 28 U/L (16-63); AST 19 U/L (15-37); Albumin 3.5 g/dL (3.4-5.0); Alkaline Phosphatase 83 U/L (46-116); Anion Gap 10.5 mmol/L (3-11); BUN 18 mg/dL (7-18); Bilirubin, Total 0.9 mg/dL (0.2-1.0); CO2 28.5 mmol/L (21.0-32.0); CREATININE 1.1 mg/dL (0.70-1.30); Calcium 8.6 mg/dL (8.5-10.1); Chloride 99 mmol/L (98-107); Estimated GFR 66.61 (mL/min/1.73m2); Glucose 108 mg/dL (74-106); NT-proBNP 849 pg/mL (<300); Potassium 4.4 mmol/L (3.5-5.1); Sodium 138 mmol/L (136-145); Total Protein 7.5 g/dL (6.4-8.2)
[2024-07-30] MEDS: Albuterol 2.5 MG/3 ML INH SOLN VIAL UPD (18:20)
[2024-07-30] MEDS: Furosemide 40 MG TAB PO (18:29)
[2024-07-30] MEDS: Cefpodoxime 200 MG TAB PO (18:49)
[2024-07-30] MEDS: Cefpodoxime 200 MG TAB (19:03)
== END 2024-07-30 19:06 | disposition home or self-care (01) ==
PROVIDERS: Emergency Provider Nurse Practitioner Family; PCP Family Medicine
DX: J18.9 Pneumonia, unspecified organism (principal); I10 Essential (primary) hypertension; I25.10 Atherosclerotic heart disease of native coronary artery without angina pectoris; I25.2 Old myocardial infarction; Z98.1 Arthrodesis status; Z79.01 Long term (current) use of anticoagulants; Z95.810 Presence of automatic (implantable) cardiac defibrillator
CPT/HCPCS: 36415; 80053; 82805; 87637; 93005; 94640; 99285; 71046; 83880; 85025; 93010; J7613

== ENCOUNTER → 2024-08-02 10:54 | Outpatient (BNVA) | payer MEDICARE, SELFPAY | PROVIDERS: PCP Family Medicine; Referring Provider Family Medicine; Visit Provider Internal Medicine Cardiovascular Disease | DX: I42.9 Cardiomyopathy, unspecified (principal); I25.10 Atherosclerotic heart disease of native coronary artery without angina pectoris; Z95.810 Presence of automatic (implantable) cardiac defibrillator | CPT/HCPCS: 99214 ==

== ENCOUNTER → 2024-08-11 09:56 | Outpatient (BNVA) | payer MEDICARE, SELFPAY | PROVIDERS: PCP Family Medicine; Referring Provider Family Medicine; Visit Provider Internal Medicine Cardiovascular Disease | DX: I25.5 Ischemic cardiomyopathy (principal); R42 Dizziness and giddiness; Z95.810 Presence of automatic (implantable) cardiac defibrillator | CPT/HCPCS: 99214 ==

== ENCOUNTER → 2024-08-17 09:54 | Outpatient (BNVA) | payer MEDICARE, SELFPAY | PROVIDERS: Visit Provider Registered Nurse | DX: Z95.810 Presence of automatic (implantable) cardiac defibrillator (principal) | CPT/HCPCS: 93284 ==

== ENCOUNTER 2024-08-30 08:19 | Outpatient (RCR) | payer SELFPAY ==
[2024-08-02 00:19] VITALS: BP 125/60; PULSE 62
[2024-08-09 08:23] VITALS: BP 128/67; PULSE 75; O2SAT 96
[2024-08-11 08:07] VITALS: BP 113/63; PULSE 75; O2SAT 94
[2024-08-16 08:45] VITALS: BP 119/66; PULSE 76
[2024-08-18 08:18] VITALS: BP 129/68; PULSE 56
[2024-08-23 09:14] VITALS: BP 107/62; PULSE 73
[2024-08-25 08:27] VITALS: BP 120/78; PULSE 60
[2024-08-30 08:24] VITALS: BP 112/72; PULSE 70
== END 2024-08-31 23:59 | disposition home or self-care (01) ==
LOC: CR 08:19
PROVIDERS: PCP Family Medicine; Visit Provider Internal Medicine Cardiovascular Disease
DX: R69 Illness, unspecified (principal)

== ENCOUNTER → 2024-09-02 09:14 | Outpatient (BNVA) | payer MEDICARE, SELFPAY | PROVIDERS: PCP Family Medicine; Referring Provider Family Medicine; Visit Provider Internal Medicine Cardiovascular Disease | DX: I42.9 Cardiomyopathy, unspecified (principal); Z95.810 Presence of automatic (implantable) cardiac defibrillator | CPT/HCPCS: 99214; 99213 ==

== ENCOUNTER 2024-09-27 08:07 | Outpatient (RCR) | payer SELFPAY ==
[2024-09-01 00:20] VITALS: BP 125/60; PULSE 62
[2024-09-01 08:43] VITALS: BP 125/55; PULSE 44
[2024-09-06 08:21] VITALS: BP 114/64; PULSE 72
[2024-09-08 08:21] VITALS: BP 112/48
[2024-09-13 08:17] VITALS: BP 120/66; PULSE 75
[2024-09-15 08:07] VITALS: BP 116/61; PULSE 70
[2024-09-20 08:07] VITALS: BP 121/59; PULSE 72
[2024-09-22 08:18] VITALS: BP 117/69; PULSE 68
[2024-09-27 08:11] VITALS: BP 114/62; PULSE 68
== END 2024-10-01 23:59 | disposition home or self-care (01) ==
LOC: CR 08:07
PROVIDERS: PCP Family Medicine; Visit Provider Internal Medicine Cardiovascular Disease
DX: R69 Illness, unspecified (principal)

== ENCOUNTER → 2024-10-13 10:54 | Outpatient (BNVA) | payer MEDICARE, SELFPAY | PROVIDERS: PCP Family Medicine; Referring Provider Family Medicine; Visit Provider Internal Medicine Cardiovascular Disease | DX: Z95.810 Presence of automatic (implantable) cardiac defibrillator (principal); Z48.812 Encounter for surgical aftercare following surgery on the circulatory system | CPT/HCPCS: 99213 ==

== ENCOUNTER 2024-10-13 11:13 | Emergency (ER) | payer MEDICARE, SELFPAY ==
[2024-10-13 11:25] VITALS: BP 109/53; PULSE 79; RESP 18; TEMP 37.4; O2SAT 96
[2024-10-13 11:28] VITALS: BP 109/53; PULSE 79; RESP 18; TEMP 37.4; O2SAT 96
--- NOTE | 2024-10-13 11:30 | DI.RAD_ITS ---
Exam(s) XR CHEST 2V PA LATERAL EXAM: XR CHEST 2V PA LATERAL CLINICAL HISTORY: cough. TECHNIQUE: 2D digital imaging was performed. COMPARISON: CR XR CHEST 2V PA LATERAL from 07/30/2024 FINDINGS: 2 views: There is cardiomegaly again noted Bipolar left subclavian pacemaker again noted Lungs are clear. No infiltrates nor pleural effusions. Previously present infiltrate in the lower aspect of the right lung field has resolved. There are no pleural effusions. No evidence of pulmonary edema. IMPRESSION: Improved appearance of the previously present infiltrate in the lower right lung field. No obvious infiltrates nor pleural effusions. Cardiomegaly. Pacemaker. No pulmonary edema. DATA REPOSITORY: RADIATION DOSE DELIVERED:
--- NOTE | 2024-10-13 11:41 | W.ED.GENAD ---
Discharge Plan Disposition Patient Disposition: Home Condition: Stable Discharge Details Clinical Impression: Acute respiratory infection Primary Care Provider: Donny Cooper ED Provider: Ranjeet Thomas Home Meds and New Rx's Prescriptions: New prednisone 20 mg tablet 60 mg PO DAILY 4 Days Qty: 12 0RF doxycycline hyclate 100 mg tablet 100 mg PO BID Qty: 14 0RF Continued Lumigan 0.01 % drops 1 drp ophthalmic (eye) DAILY Qty: 7.5 5RF Eliquis 5 mg tablet 5 mg PO BID Qty: 180 4RF atorvastatin 40 mg tablet 40 mg PO DAILY Qty: 90 4RF lisinopril 2.5 mg tablet 2.5 mg PO DAILY Qty: 90 3RF nitroglycerin [Nitrostat] 0.4 mg tablet, sublingual 0.4 mg Sublingual PRN Qty: 25 0RF spironolactone 25 mg tablet 12.5 mg PO DAILY Qty: 45 4RF tamsulosin [Flomax] 0.4 mg capsule 0.4 mg PO HS Qty: 90 4RF furosemide 40 mg tablet 40 mg PO DAILY PRN (Reason: edema) Qty: 90 0RF carvedilol 6.25 mg tablet 6.25 mg PO BID Qty: 180 3RF Rx Instructions: must administer with a meal/food Discharge Instructions Additional Instructions: Your viral swab and chest x-ray were negative. Follow-up with your primary care provider if not improving in a week. You can use the inhaler 2 puffs every 4 hours as needed. If you feel significantly more ill or short of breath return to the emergency department for reevaluation. HPI General Mode of arrival: ambulatory. Date/Time Provider Initiated Documentation: 10/13/24 11:16. Limitations to Documentation: no limitations. Information obtained by: patient. History of Present Illness 84 year old M presents to the emergency department with the chief complaint of cough, described as moderate, Patient started experiencing this day(s) (2) and it has been constant. No relieving factors improve symptom(s), No exacerbating factors reported . Patient notes no other symptoms.. Patient did receive the following treatments prior to arrival, none Related Data Home Medications ?Medication ?Instructions ?Recorded ?Confirmed bimatoprost 0.01 % eye drops 1 drp ophthalmic (eye) DAILY #7.5 10/21/10/13/24 (Lumigan) mL apixaban 5 mg tablet (Eliquis) 5 mg PO BID #180 tab-caps 08/04/24 10/13/24 atorvastatin 40 mg tablet 40 mg PO DAILY #90 tab-caps 08/04/24 10/13/24 lisinopril 2.5 mg tablet 2.5 mg PO DAILY #90 tab-caps 08/04/24 10/13/24 nitroglycerin 0.4 mg sublingual 0.4 mg sublingual PRN #25 tabs 08/04/24 10/13/24 tablet (Nitrostat) spironolactone 25 mg tablet 12.5 mg (1/2 x 25 mg) PO DAILY #45 08/04/24 10/13/24 tab-caps tamsulosin 0.4 mg capsule (Flomax) 0.4 mg PO HS #90 tabs 08/04/24 10/13/24 furosemide 40 mg tablet 40 mg PO DAILY PRN edema #90 tabs 08/11/24 10/13/24 carvedilol 6.25 mg tablet 6.25 mg PO BID cardiomyopathy, 08/30/24 10/13/24 premature ventricular beats #180 tabs doxycycline hyclate 100 mg tablet 100 mg PO BID #14 tabs 10/13/24 prednisone 20 mg tablet 60 mg (3 x 20 mg) PO DAILY 4 days 10/13/24 #12 tabs Previous Rx's ?Medication ?Instructions ?Recorded bimatoprost 0.01 % eye drops 1 drp ophthalmic (eye) DAILY #7.5 10/22/23 (Dmitri) mL apixaban 5 mg tablet (Eliquis) 5 mg PO BID #180 tab-caps 08/04/24 atorvastatin 40 mg tablet 40 mg PO DAILY #90 tab-caps 08/04/24 lisinopril 2.5 mg tablet 2.5 mg PO DAILY #90 tab-caps 08/04/24 nitroglycerin 0.4 mg sublingual 0.4 mg sublingual PRN #25 tabs 08/04/24 tablet (Nitrostat) spironolactone 25 mg tablet 12.5 mg (1/2 x 25 mg) PO DAILY #45 08/04/24 tab-caps tamsulosin 0.4 mg capsule (Flomax) 0.4 mg PO HS #90 tabs 08/04/24 furosemide 40 mg tablet 40 mg PO DAILY PRN edema #90 tabs 08/11/24 carvedilol 6.25 mg tablet 6.25 mg PO BID cardiomyopathy, 08/30/24 premature ventricular beats #180 tabs doxycycline hyclate 100 mg tablet 100 mg PO BID #14 tabs 10/13/24 prednisone 20 mg tablet 60 mg (3 x 20 mg) PO DAILY 4 days 10/13/24 #12 tabs Allergies Allergy/AdvReac Type Severity Reaction Status Date / Time No Known Allergies Allergy Verified 10/13/24 11:29 General Stated Complaint: RespSymp HARSHIL: 4 Review of Systems All systems reviewed & are unremarkable except as noted in HPI and below Constitutional Constitutional: Denies chills, Denies fever(s) and Denies weakness Cardiovascular Cardiovascular: Denies chest pain and Denies dyspnea Respiratory Respiratory: Reports cough and Denies dyspnea Gastrointestinal Gastrointestinal: Denies abdominal pain and Denies vomiting Integumentary/Breasts Skin/Breast: Denies rash Neurologic Neurologic: Denies weakness Exam Const General: no acute distress Orientation: alert [facility] Head: normal to inspection Ears: external ears normal General nose exam: external nose normal Mouth: moist mucous membranes Eyes General: appearance normal, both eyes and all related structures Neck Neck: normal visual inspection Resp Effort & Inspection: normal respiratory effort and able to speak in complete sentences Auscultation: wheezes Cardio Jugular venous pressure: no JVD Rate: regular rate Skin General skin exam: no rashes or lesions noted Neuro General: patient alert and patient oriented x3 Extrem General: normal to inspection Psych Mental Status: mental status grossly normal Course Vital Signs Vital signs: Vital Signs Temperature 37.4 C 10/13/24 11:25 Pulse 79 10/13/24 11:25 Respiratory Rate 18 10/13/24 11:25 Blood Pressure 109/53 L 10/13/24 11:25 Pulse Oximetry 96 10/13/24 11:25 Temperature 37.4 C 10/13/24 11:28 Temperature Source Oral 10/13/24 11:28 Pulse 79 10/13/24 11:28 Respiratory Rate 18 10/13/24 11:28 Respiratory Effort Normal, Non-Labored 10/13/24 11:32 Respiratory Depth Normal 10/13/24 11:32 Blood Pressure 109/53 L 10/13/24 11:28 Pulse Oximetry 96 10/13/24 11:28 Oxygen Delivery Method Room Air 10/13/24 11:28 Oxygen Flow Rate 0 10/13/24 11:28 Pain Level 0 10/13/24 11:28 Medical Decision Making 84-year-old male with a history of implanted defibrillator, COPD, who comes in with several days of worsening productive cough. He denies any difficulty breathing, fevers, travel, chest pain. He is well-appearing speaking in full sentences. He has apical wheezing bilaterally otherwise clear lung sounds. He has no JVD, no calf tenderness. Suspect respiratory infection, given lack of fevers and well appearance I doubt sepsis and do not feel blood work is indicated. Will treat his symptoms with albuterol inhaler and prednisone check a Fluvid and a chest x-ray and reassess Patient feels better, lung sounds improved without any wheezing anymore. Fluvid negative and chest x-ray shows resolution of prior infiltrate on x-ray. Given the productive nature of the cough I am going to initiate antibiotics with doxycycline. He will follow-up with his PCP if not improving and return precautions given Differential Diagnosis Differential Diagnosis: URI, pneumonia PFSH All Active Problems (Updated 10/13/24 @ 12:42 by Ranjeet Thomas MD) Acute respiratory infection (Acute) Cardiomyopathy (Acute) Dupuytrens contracture (Acute) rt fifth finger COVID-19 (Acute ~12/31/21) Biventricular implantable cardioverter-defibrillator in situ (Acute) Original implant 2013 [employer]tronic KILN STACKER-D Viva Quad XT [id number] 02/27/2016 Actinic keratoses (Acute) LPRD (laryngopharyngeal reflux disease) (Acute) Cough in adult (Acute) Hoarseness of voice (Acute) History of tobacco use (Acute) Well adult (Acute) History of spinal surgery (Acute) Low back pain (Acute 04/11/13) Status post appendectomy (Acute) Osteoarthritis (Acute) Old myocardial infarction (Acute 09/21/15) Ischemic cardiomyopathy (Acute 09/21/15) Hyperplasia of prostate (Acute 10/13/12) Hyperlipemia (Acute) History of COPD (Acute) Hemorrhoids (Acute) Glucose intolerance (impaired glucose tolerance) (Acute 09/26/16) Fracture of patella, closed (Acute) LEFT Coronary artery disease involving [place] coronary artery of [place] heart without angina pectoris (Acute 09/21/15) 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 Maternal Grandfather No problems noted. Maternal Grandmother No problems noted. Social History Smoking/Tobacco Use Status: Former Tobacco Use tobacco type: cigarettes Quit Date: 05/04/89 Tobacco: How many years used: 30 Quit status: has quit before Second Hand Exposure: Yes Smoking risk assessment performed?: Yes Alcohol Intake: current Alcohol Intake frequency: a few times a week Alcohol type: beer Drug use: Never Caregiver/Support person: No Household members: spouse Housing: house Communication Needs: None Do you need help understanding health information?: Never Pets and animals: No Sexually active: No Do you think of yourself as: straight/heterosexual Current gender identity: male What is your relationship status?: How often do you talk on the phone with friends or family?: decline to answer How often do you get together with friends or relatives?: decline to answer How often do you attend gnosticist or scientologist services?: decline to answer Do you belong to any clubs or organized social groups?: yes Panel score (0-1 are the most socially isolated patients): 2 What type of physical activity do you participate in: walking and other Details: cardiac rehab Duration: 60-90 minutes/day Frequency: 1-2 times per week Shellie/Mu-Ism: No preference Special shellie needs: No Agree to transfusion: No Seatbelt use: always Helmet use: Yes Helmet use: always Drive intox or ride w/intox motorcycle delivery 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
[2024-10-13] MEDS: Albuterol HFA 8 GM 60 PUFF INH IH (11:51)
[2024-10-13] MEDS: predniSONE 20 MG TAB 60 MG PO (11:51)
[2024-10-13 12:18] LABS: COVID-19 PCR Negative (Negative); Influenza A PCR Negative (Negative); Influenza B PCR Negative (Negative); RSV PCR Negative (Negative)
[2024-10-13 12:26] LABS: Source Nasopharynx
[2024-10-13 12:39] VITALS: BP 112/57; PULSE 69; RESP 18; O2SAT 66
== END 2024-10-13 12:58 | disposition home or self-care (01) ==
PROVIDERS: Emergency Provider Emergency Medicine; PCP Family Medicine
DX: J06.9 Acute upper respiratory infection, unspecified (principal); R05.9 Cough, unspecified; R06.02 Shortness of breath; J44.9 Chronic obstructive pulmonary disease, unspecified; R06.2 Wheezing
CPT/HCPCS: 87637; 99283; 71046; 99213; 99284; J7512

== ENCOUNTER 2024-10-25 08:00 | Outpatient (RCR) | payer SELFPAY ==
[2024-10-02 00:12] VITALS: BP 125/60; PULSE 62
[2024-10-04 08:38] VITALS: BP 124/70; PULSE 72
[2024-10-06 09:11] VITALS: BP 111/64
[2024-10-20 08:20] VITALS: BP 115/54; PULSE 81
[2024-10-25 08:19] VITALS: BP 125/58; PULSE 74
== END 2024-10-31 23:59 | disposition home or self-care (01) ==
LOC: CR 08:00
PROVIDERS: PCP Family Medicine; Visit Provider Internal Medicine Cardiovascular Disease
DX: R69 Illness, unspecified (principal)

== ENCOUNTER 2024-10-27 08:55 | Outpatient (CLI) | payer MEDICARE, SELFPAY ==
[2024-10-27 12:25] LABS: Hemoglobin A1C 5.7 % (<5.7)
[2024-10-27 22:57] LABS: PSA, Screening 1.7 ng/mL (<=6.5)
== END 2024-10-27 08:56 | disposition home or self-care (01) ==
LOC: LOS 08:55
PROVIDERS: PCP Family Medicine; Referring Provider Family Medicine; Visit Provider Family Medicine
DX: Z12.5 Encounter for screening for malignant neoplasm of prostate (principal); R73.9 Hyperglycemia, unspecified
CPT/HCPCS: 36415; 84153; 83036

== ENCOUNTER 2024-12-01 08:00 | Outpatient (RCR) | payer SELFPAY ==
[2024-11-01 00:06] VITALS: BP 125/58; PULSE 74
[2024-11-01 08:16] VITALS: BP 109/51; PULSE 64
[2024-11-03 08:16] VITALS: BP 109/62; PULSE 74
[2024-11-08 09:12] VITALS: BP 134/70; PULSE 74
[2024-11-10 08:31] VITALS: BP 99/59; PULSE 77
[2024-11-15 08:27] VITALS: BP 117/62; PULSE 70
[2024-11-17 08:08] VITALS: BP 106/60; PULSE 70; O2SAT 92
[2024-11-22 08:41] VITALS: BP 109/66; PULSE 71
[2024-11-24 08:29] VITALS: BP 103/69; PULSE 74
[2024-11-29 08:30] VITALS: BP 132/54; PULSE 68
[2024-12-01 08:23] VITALS: BP 128/55; PULSE 41
== END 2024-12-01 23:59 | disposition home or self-care (01) ==
LOC: CR 08:00
PROVIDERS: PCP Family Medicine; Visit Provider Internal Medicine Cardiovascular Disease
DX: R69 Illness, unspecified (principal)

== ENCOUNTER 2024-12-29 08:00 | Outpatient (RCR) | payer SELFPAY ==
[2024-12-02 00:05] VITALS: BP 128/55; PULSE 41
[2024-12-06 08:19] VITALS: BP 116/67; PULSE 74
[2024-12-08 08:12] VITALS: BP 109/67; PULSE 70
[2024-12-13 08:30] VITALS: BP 124/68; PULSE 72
[2024-12-15 08:01] VITALS: BP 130/55; PULSE 68
[2024-12-20 08:37] VITALS: BP 112/61; PULSE 71
[2024-12-22 08:41] VITALS: BP 113/65; PULSE 76
[2024-12-27 08:32] VITALS: BP 116/70; PULSE 76
[2024-12-29 08:21] VITALS: BP 117/69; PULSE 68
== END 2025-01-01 23:59 | disposition home or self-care (01) ==
LOC: CR 08:00
PROVIDERS: PCP Family Medicine; Visit Provider Internal Medicine Cardiovascular Disease
DX: R69 Illness, unspecified (principal)

== ENCOUNTER → 2025-01-06 09:54 | Outpatient (BNVA) | payer MEDICARE, SELFPAY | PROVIDERS: PCP Family Medicine; Referring Provider Family Medicine; Visit Provider Internal Medicine Cardiovascular Disease | DX: I42.9 Cardiomyopathy, unspecified (principal); Z95.810 Presence of automatic (implantable) cardiac defibrillator; I25.10 Atherosclerotic heart disease of native coronary artery without angina pectoris | CPT/HCPCS: 99214 ==

== ENCOUNTER 2025-01-31 08:00 | Outpatient (RCR) | payer SELFPAY ==
[2025-01-03 08:39] VITALS: BP 122/67; PULSE 70
[2025-01-05 08:23] VITALS: BP 122/57; PULSE 70
[2025-01-10 08:04] VITALS: BP 118/67; PULSE 70
[2025-01-12 08:19] VITALS: BP 110/65; PULSE 70
[2025-01-17 08:27] VITALS: BP 113/64; PULSE 70
[2025-01-19 09:12] VITALS: BP 110/63; PULSE 70
[2025-01-24 08:14] VITALS: BP 120/62; PULSE 71
[2025-01-26 08:13] VITALS: BP 128/66; PULSE 68
[2025-01-31 08:06] VITALS: BP 111/68; PULSE 68
== END 2025-01-31 23:59 | disposition home or self-care (01) ==
LOC: CR 08:00
PROVIDERS: PCP Family Medicine; Visit Provider Internal Medicine Cardiovascular Disease
DX: R69 Illness, unspecified (principal)

== ENCOUNTER 2025-03-02 08:00 | Outpatient (RCR) | payer SELFPAY ==
[2025-02-01 00:08] VITALS: BP 111/68; PULSE 68
[2025-02-02 08:09] VITALS: BP 110/53; PULSE 74
[2025-02-07 08:22] VITALS: BP 116/69; PULSE 75
[2025-02-14 09:27] VITALS: BP 123/65; PULSE 70
[2025-02-16 08:11] VITALS: BP 123/65; PULSE 69
[2025-02-23 08:22] VITALS: BP 128/68; PULSE 70
[2025-02-28 08:49] VITALS: BP 127/67; PULSE 68
[2025-03-02 08:00] VITALS: BP 115/62; PULSE 66; O2SAT 97
== END 2025-03-03 23:59 | disposition home or self-care (01) ==
LOC: CR 08:00
PROVIDERS: PCP Family Medicine; Visit Provider Internal Medicine Cardiovascular Disease
DX: R69 Illness, unspecified (principal)

== ENCOUNTER 2025-03-28 08:00 | Outpatient (RCR) | payer SELFPAY ==
[2025-03-04 00:20] VITALS: BP 115/62; PULSE 66
[2025-03-07 08:05] VITALS: BP 128/59; PULSE 69
[2025-03-09 08:15] VITALS: BP 125/71; PULSE 70
[2025-03-14 08:14] VITALS: BP 128/64; PULSE 74
[2025-03-16 08:12] VITALS: BP 124/64; PULSE 70
[2025-03-21 08:23] VITALS: BP 132/62; PULSE 70
[2025-03-23 08:17] VITALS: BP 132/74; PULSE 76
[2025-03-28 08:37] VITALS: BP 125/66; PULSE 68
== END 2025-04-02 23:59 | disposition home or self-care (01) ==
LOC: CR 08:00
PROVIDERS: PCP Family Medicine; Visit Provider Internal Medicine Cardiovascular Disease
DX: R69 Illness, unspecified (principal)

== ENCOUNTER 2025-05-02 08:00 | Outpatient (RCR) | payer SELFPAY ==
[2025-04-03 00:08] VITALS: BP 125/66; PULSE 68
[2025-04-04 08:12] VITALS: BP 94/57; PULSE 76
[2025-04-06 08:31] VITALS: BP 127/70; PULSE 73
[2025-04-11 08:43] VITALS: BP 130/61; PULSE 69
[2025-04-13 08:49] VITALS: BP 114/63; PULSE 67
[2025-04-18 08:19] VITALS: BP 117/66; PULSE 72
[2025-04-20 08:26] VITALS: BP 109/65; PULSE 56
[2025-05-02 08:44] VITALS: BP 137/69; PULSE 77
== END 2025-05-03 23:59 | disposition home or self-care (01) ==
LOC: CR 08:00
PROVIDERS: PCP Family Medicine; Visit Provider Internal Medicine Cardiovascular Disease
DX: R69 Illness, unspecified (principal)

== ENCOUNTER → 2025-05-03 09:38 | Outpatient (BNVA) | payer MEDICARE, SELFPAY | PROVIDERS: PCP Family Medicine; Referring Provider Family Medicine; Visit Provider Registered Nurse | DX: I25.10 Atherosclerotic heart disease of native coronary artery without angina pectoris (principal); Z45.02 Encounter for adjustment and management of automatic implantable cardiac defibrillator; Z79.01 Long term (current) use of anticoagulants; Z79.02 Long term (current) use of antithrombotics/antiplatelets; Z79.811 Long term (current) use of aromatase inhibitors; Z79.899 Other long term (current) drug therapy | CPT/HCPCS: 93281 ==